=== PATIENT | male | born 1980 | race Caucasian/White ===

== ENCOUNTER 2020-04-09 23:24 | Emergency (ER) | payer MEDICARE, MEDICAID, SELFPAY ==
[2020-04-09 23:33] VITALS: BP 166/79; PULSE 84; RESP 16; TEMP 36.7; O2SAT 98; BMI 35.4
--- NOTE | 2020-04-09 23:34 | XR_ITS ---
PROCEDURE: XR ANKLE RT MIN 3V CLINICAL INDICATION: stepped in a hole Injury with pain COMPARISON: No exams were available for comparison FINDINGS: There is a faint avulsion fracture involving the tip of the lateral malleolus. The fracture fragment measures 5 mm and is displaced distally by 5 mm. There is prominent overlying soft tissue swelling. There is generalized vascular calcification IMPRESSION: Avulsion fracture of the tip of the lateral malleolus with soft tissue swelling Dictated by: Antelmo Putnam MD 04/10/2020 07:58 Electronically signed by Antelmo Putnam MD in [place] 04/10/2020 07:58
--- NOTE | 2020-04-09 23:53 | HMH.EDLOEX ---
ED Disposition Clinical Impression: Ankle sprain and strain Disposition: Home, Self-Care Condition on Discharge: Good Instructions: Sprain Additional Instructions: no wt bearing and call dr grubbs in am Referrals: Heike Schroeder APRN [Primary Care Provider] - Day Grubbs DPM [Staff Physician] - - Critical Care Critical Care Time: No Attestation: On 04/09/20, the high probability of a clinically significant, sudden or life threatening deterioration of the following system(s) required my full and direct attention, intervention and personal management. The time I documented below is in addition to time spent performing reported procedures but includes the following listed in this critical care notation. Medical Decision Making - Medical Records Medical records reviewed: Yes: I reviewed the patient's medical records. - Federico Inquiry Pt receiving controlled substance: No Vital Signs: 04/09/20 23:33 Temperature 98.1 F Temperature Source Oral Pulse Rate [Right Brachial] 84 Respiratory Rate 16 Blood Pressure [Right Arm] 166/79 H Blood Pressure Mean [Right Arm] 108 Blood Pressure Source [Right Arm] Automatic Cuff Blood Pressure Position [Right Arm] Sitting 02 Sat by Pulse Oximetry 98 Oxygen Delivery Method Room Air Orders (Tests/Meds): ED MEDICATIONS Generic Name Dose Route Start Last Admin Trade Name Freq PRN Reason Stop Dose Admin Tramadol HCl 1 alisson 04/10/20 00:02 Ultram Take Home Pack 50mg (10) PO 04/10/20 00:03 ONCE ONE ORDERS Category Date Time Status Ankle XR -Right minimum 3 Views [XR ankle RT min 3V] Exams 04/09/20 23:34 Taken Stat - Radiology Data #1 Image(s): Ankle Image Reviewed: Yes I reviewed the patient's radiology image Preliminary Findings: Abnormal, No Fracture Seen Lower Extremity Injury HPI - General Chief Complaint: Extremity Injury, Lower Stated Complaint: AO 04/09/20 23:00 Injury right ankle Time Seen by Provider: 04/09/20 23:45 Mode of Arrival: Wheelchair Source of Information: Patient, Medical Record Limitations: No Limitations Description of Symptoms (Recalled from ER Triage Doc. by RN): Patient reports he was walking through the yard and stepped in a hole causing him to roll his right ankle. - History of Present Illness HPI Narrative: acute injury ankle rt MD complaint: ankle injury Onset (ago): hour(s) Injury: Right: ankle Type of Injury: eversion Place: home Severity: moderate Exacerbating factors: weight bearing Context: walking Associated symptoms: snap/pop sensation, unable to bear weight Other symptoms: none - Related Data Home Medications Medication Instructions Recorded Confirmed Unobtainable 06/23/18 06/23/18 Allergies Allergy/AdvReac Type Severity Reaction Status Date / Time No Known Allergies Allergy Verified 04/09/20 23:37 [facility] History - Hepatitis A Screen Drug use history?: No High risk sexual behaviors?: No History of sexually transmitted infection?: No Currently employed?: No Childcare worker?: No Do you have indoor plumbing?: Yes Do you have electricity?: Yes Attestation statement:: This patient has been screened for Hepatitis A risk factors. I have reviewed the patient's past medical history: Yes Medical History: Reports:: Diabetes Mellitus Type 2 Denies:: Cancer, Diabetes Mellitus Type 1, MRSA Amputation: No - Social History Smoking Status: Never smoker Alcohol Intake: never Occupational Status: disabled ROS Obtained: Yes All systems reviewed & no additional complaints - Constitutional Constitutional: Denies fever(s) - Eyes Eyes: Denies change in vision - ENT Ears, Nose, Mouth, and Throat: Denies sore throat - Cardiovascular Cardiovascular: Denies chest pain - Respiratory Respiratory: No cough - Gastrointestinal Gastrointestingal: Denies: vomiting - Genitourinary Male Genitourinary: Denies hematuria - Musculoskeletal Musculoskeletal: Reports
[2020-04-10 00:06] VITALS: BP 134/70; PULSE 77; RESP 16; TEMP 36.7; O2SAT 99
== END 2020-04-10 00:13 | disposition home or self-care (01) ==
PROVIDERS: Emergency Provider Emergency Medicine; PCP Nurse Practitioner
DX: S93.401A Sprain of unspecified ligament of right ankle, initial encounter (principal); X50.1XXA Overexertion from prolonged static or awkward postures, initial encounter; Y92.017 Garden or yard in single-family (private) house as the place of occurrence of the external cause
CPT/HCPCS: 73610; 99282

== ENCOUNTER → 2020-05-15 08:50 | Outpatient (CLI) | payer MEDICARE, MEDICAID, SELFPAY ==
--- NOTE | 2020-05-15 08:56 | XR_ITS ---
PROCEDURE: XR ANKLE WT BEARING RT MIN 3V CLINICAL INDICATION: fracture follow up Pain COMPARISON: CR ANKL3 ANKLE-LT-3 VIEWS from 06/27/2016 CR XR ANKLE RT MIN 3V from 04/09/2020 FINDINGS: There is a faint avulsion fracture once again noted at the tip the lateral malleolus may be slightly less apparent compared to the previous exam. There are small calcific densities also present around the medial malleolar region which could represent avulsion injuries age indeterminate. Soft tissue swelling has improved laterally. IMPRESSION: Improved soft tissue swelling with avulsion fracture fragment of the lateral malleolus somewhat less apparent Dictated b Antelmo Putnam MD 05/15/2020 11:00 Antelmo Putnam MD in [place] 05/15/2020 11:00
== END ==
PROVIDERS: PCP Nurse Practitioner; Visit Provider Podiatrist
DX: S82.63XA Displaced fracture of lateral malleolus of unspecified fibula, initial encounter for closed fracture (principal)
CPT/HCPCS: 73610

== ENCOUNTER → 2020-06-19 09:46 | Outpatient (CLI) | payer MEDICARE, MEDICAID, SELFPAY ==
--- NOTE | 2020-06-19 09:53 | XR_ITS ---
PROCEDURE: XR ANKLE WT BEARING RT MIN 3V CLINICAL INDICATION: pain COMPARISON: CR ANKL3 ANKLE-LT-3 VIEWS from 06/27/2016 CR XR ANKLE RT MIN 3V from 04/09/2020 CR XR ANKLE WT BEARING RT MIN 3V from 05/15/2020 FINDINGS: There is a faint calcification at the tip of the lateral malleolus consistent with an avulsion fracture not significantly changed. Small avulsion fracture also suspected at the medial malleolar region. No other significant anomalies evident. IMPRESSION: No change avulsion fractures at the medial and lateral malleolar region Dictated by: Antelmo Putnam MD 06/19/2020 11:42 Antelmo Putnam MD in [place] 06/19/2020 11:42
== END ==
PROVIDERS: PCP Nurse Practitioner; Visit Provider Podiatrist
DX: S82.61XE Displaced fracture of lateral malleolus of right fibula, subsequent encounter for open fracture type I or II with routine healing (principal)
CPT/HCPCS: 73610

== ENCOUNTER → 2020-08-14 08:13 | Outpatient (CLI) | payer MEDICARE, MEDICAID, SELFPAY ==
--- NOTE | 2020-08-14 08:23 | XR_ITS ---
PROCEDURE: XR ANKLE WT BEARING RT MIN 3V CLINICAL INDICATION: fracture follow up COMPARISON: CR ANKL3 ANKLE-LT-3 VIEWS from 06/27/2016 CR XR ANKLE RT MIN 3V from 04/09/2020 CR XR ANKLE WT BEARING RT MIN 3V from 05/15/2020 CR XR ANKLE WT BEARING RT MIN 3V from 06/19/2020 FINDINGS: Small calcific densities once again noted at the tip of the medial and lateral malleolar region may be due to old avulsion injuries overall not significantly changed. Ankle mortise is preserved. IMPRESSION: No change small avulsion injuries at the tip of the medial and lateral malleolar region Dictated by: Antelmo Putnam MD 08/14/2020 11:48 Antelmo Putnam MD in [place] 08/14/2020 11:48
== END ==
PROVIDERS: PCP Nurse Practitioner; Visit Provider Podiatrist
DX: S82.63XA Displaced fracture of lateral malleolus of unspecified fibula, initial encounter for closed fracture (principal)
CPT/HCPCS: 73610

== ENCOUNTER → 2020-12-26 11:23 | Outpatient (CLI) | payer MEDICARE, MEDICAID, SELFPAY ==
[2020-12-26 11:51] LABS: Basophils # 0.1 K/mm3 (0-0.2); Basophils % 0.8 % (0.1-2.0); Eosinophils # 0.1 K/mm3 (0.0-0.4); Eosinophils % 1.9 % (0.1-12.0); Hematocrit 43.9 % (42.0-52.0); Hemoglobin 14.9 g/dL (14.1-18.0); Lymphocytes # 1.9 K/mm3 (0.7-4.5); Lymphocytes % 27.3 % (10-50); Mean Corpuscular Hemoglobin 29.8 pg (27.0-31.2); Mean Corpuscular Volume 87.5 fl (80-94); Mean Platelet Volume 8.5 fl (7.4-10.4); Monocytes # 0.5 K/mm3 (0.1-1.0); Monocytes % 7.5 % (1.7-9.3); Neutrophils # 4.5 K/mm3 (1.8-7.8); Neutrophils % 62.6 % (37.0-80.0); Platelet Count 214 K/mm3 (142-424); Red Blood Count 5.01 M/mm3 (4.60-6.20); Red Cell Distribution Width 13.9 % (11.5-17.5); White Blood Count 7.1 K/mm3 (4.8-10.8)
[2020-12-26 12:05] LABS: Creatinine,Urine Random 119 mg/dL (Not Estab.); Hemoglobin A1C 7.3 % (4.0-6.0)
[2020-12-26 12:10] LABS: Microalbumin/Creatinine Ratio 10.3
[2020-12-26 12:16] LABS: Alanine Aminotransferase 31 U/L (12-78); Albumin Level 4.6 g/dl (3.5-5.0); Albumin/Globulin Ratio 1.5 (1.1-1.8); Alkaline Phosphatase 59 U/L (38-126); Anion Gap 14.9 mEq/L (5-15); Aspartate Amino Transferase 27 U/L (17-59); Bilirubin,Total 0.9 mg/dl (0.2-1.3); Blood Urea Nitrogen 21 mg/dl (9-20); Calcium 9.7 mg/dl (8.4-10.2); Carbon Dioxide 27 mmol/L (22.0-30.0); Chloride 102 mmol/L (98-107); Chol/HDL Ratio 5.8 (1-3.5); Cholesterol 133 mg/dl (140-200); Estimated Glomerular Filt Rate 57 ml/min (>60); GFR (African American) 69 ML/MIN (>60); Glucose 169 mg/dl (74-100); HDL Cholesterol 23 mg/dl (40-60); Potassium 4.9 mmoL/L (3.5-5.1); Sodium 139 mmol/L (136-145); Total Protein,Serum 7.6 g/dl (6.3-8.2); Triglycerides 242 mg/dl (30-150); VLDL Cholesterol 48 mg/dL (0-40)
[2020-12-26 12:27] LABS: Direct LDL Cholesterol 64.43 mg/dL (100-129)
[2020-12-26 12:34] LABS: 25-OH Vitamin D, Total 14.4 ng/mL (30-100)
[2020-12-26 12:35] LABS: T4 (Thyroxine) 7.5 ug/dl (5.53-11.0)
[2020-12-26 12:49] LABS: Thyroid Stimulating Hormone 0.86 uIU/mL (0.465-4.68)
== END ==
PROVIDERS: Visit Provider Nurse Practitioner Family
DX: E11.9 Type 2 diabetes mellitus without complications (principal); E66.9 Obesity, unspecified; I10 Essential (primary) hypertension; R07.89 Other chest pain; R60.0 Localized edema; E55.9 Vitamin D deficiency, unspecified; Z79.4 Long term (current) use of insulin
CPT/HCPCS: 36415; 80053; 80061; 82043; 82306; 82570; 83036; 84436; 84443; 85025

== ENCOUNTER → 2021-01-18 18:04 | Outpatient (CLI) | payer MEDICARE, MEDICAID, SELFPAY ==
[2021-01-18 19:12] LABS: Amphetamine/Metha Screen,Urine Negative ng/ml (<1000); Barbiturates Screen,Urine Negative ng/ml (<200)
[2021-01-18 19:13] LABS: Benzodiazepines Screen,Urine Negative ng/ml (<200)
[2021-01-18 19:14] LABS: Cannabinoid Screen,Urine Negative ng/ml (<50); Cocaine Screen,Urine Negative ng/ml (<300)
[2021-01-18 19:15] LABS: Methadone Screen,Urine Negative ng/ml (<300)
[2021-01-18 19:16] LABS: Opiate Screen,Urine Negative ng/ml (<300); Phencyclidine Screen,Urine Negative ng/ml (<25)
== END ==
PROVIDERS: Visit Provider Nurse Practitioner Family
DX: Z79.891 Long term (current) use of opiate analgesic (principal)
CPT/HCPCS: 80305

== ENCOUNTER → 2021-01-23 16:19 | Outpatient (CLI) | payer MEDICARE, MEDICAID, SELFPAY | PROVIDERS: PCP Nurse Practitioner Family; Visit Provider Internal Medicine Cardiovascular Disease | DX: E78.2 Mixed hyperlipidemia; I10 Essential (primary) hypertension; K21.9 Gastro-esophageal reflux disease without esophagitis; Z79.4 Long term (current) use of insulin; G47.10 Hypersomnia, unspecified; G47.30 Sleep apnea, unspecified | CPT/HCPCS: G0399 ==

== ENCOUNTER → 2021-02-02 07:16 | Outpatient (CLI) | payer MEDICARE, MEDICAID, SELFPAY ==
--- NOTE | 2021-02-02 07:16 | CA_ITS ---
APPROVED REPORT EXAM: Comprehensive 2D, Doppler, and color-flow Echocardiogram Pile Driver Operator: Jenny Churchill RVT Ht: 6 ft 0 in Wt: 253lbs BSA: 2.35 BP: 124/72 mmHg Indications: soa,dm,palps,obesity,hld,gerd 2D Dimensions LVOT 2.04 cm (M/F) 1.5-2.5 LA Volume 19.80 mL LA Volume Index 8.42 mL/m2 (M/F) 16-34 M-Mode Dimensions RVDd 3.04 cm (0.9-2.6) LA Diam 5.01 cm (1.9-4.0) LVDd 5.51 cm (3.5-5.7) Ao Diam 3.35 cm (2.0-3.7) LVDs 3.38 cm (3.5-5.7) IVSd 1.29 cm (0.6-1.1) PWd 0.72 cm (0.6-1.1) EF (Teich) 68.40% FS 38.70% EDV (Teich) 148.00 mL TAPSE 2.58 (<1.7) ESV (Teich) 46.80 mL LV Diastology E Decel Time 193.00 (160-240 msec) E/A Ratio 1.5 MED E' 8.20 (< 7 cm/sec) E'/MED E' Ratio 13.52 (>14) LAT E' 7.80 (<10 cm/sec) E/LAT E' Ratio 14.22 (>14) Mitral Valve MV E Max Carlos. 111.00 (40-130 cm/s) MV A Velocity 73.00 (40-130 cm/s) E/A Ratio 1.51 MV Decel. Time 193.00 (160-240 ms) MV PHT 57.00 ms Pulmonary Valve PV Peak Velocity 109.00 (50-150 cm/s) Tricuspid Valve TR P. Velocity 215.00 cm/s RAP Estimate 10.00 mmHg RVSP 28.50 mmHg Left Ventricle Left atrium is mildly enlarged, left ventricle is normal size, there is no concentric left ventricular hypertrophy, visually estimated ejection fraction 55% with no regional wall motion abnormality. Diastolic parameters are inconclusive. Right Ventricle Right atrium and right ventricle are mildly enlarged with normal contractility. Aortic Valve Aortic valve is minimally thickened aortic valve is grossly normal, there is no aortic stenosis or aortic insufficiency. Mitral Valve Mitral valve is grossly normal, there is no mitral regurgitation. Tricuspid Valve Tricuspid valve is grossly normal, there is no significant tricuspid regurgitation to calculate right ventricular systolic pressure. Pulmonic Valve Pulmonic valve is poorly visualized. Great Vessels Aortic root is normal size. Pericardium No significant pericardial effusion noted. Conclusion 1. Mild biatrial alignment, normal left ventricular size, visually estimated ejection fraction 55% with no regional wall motion abnormality, diastolic parameters are inconclusive. 2. Mildly enlarged right ventricle with normal contractility. 3. No significant pericardial effusion noted. Electronically signed by : Garcia Fernandez, 02/02/2021 10:22:02
== END ==
PROVIDERS: PCP Nurse Practitioner Family; Visit Provider Internal Medicine Cardiovascular Disease
DX: R07.89 Other chest pain; I10 Essential (primary) hypertension; K21.9 Gastro-esophageal reflux disease without esophagitis; E11.9 Type 2 diabetes mellitus without complications; E78.2 Mixed hyperlipidemia; G47.9 Sleep disorder, unspecified; Z79.4 Long term (current) use of insulin
CPT/HCPCS: 93306

== ENCOUNTER → 2021-02-02 07:21 | Outpatient (CLI) | payer SELFPAY ==
--- NOTE | 2021-02-02 07:21 | CT_ITS ---
PROCEDURE: CT HEART W CALCIUM SCORE CLINICAL HISTORY: DM COMPARISON: No exams were available for comparison TECHNIQUE: Axial images obtained with sagittal and coronal reformats. All CT scans at the facility use one or more dose reduction, viz: automated exposure control, ma/kV adjustment per patient size (including targeted exams where dose is matched to indication, i.e. head), or iterative reconstruction technique. FINDINGS: Coronary artery calcium score is 876. Extensive calcific plaque burden with very high cardiovascular disease risk. There are some atelectatic or fibrotic changes in the right upper lobe medially IMPRESSION: Extensive calcific plaque burden with very high cardiovascular disease risk Dictated by: Antelmo Putnam MD 02/02/2021 08:48 Antelmo Putnam MD in [place] 02/02/2021 08:48
== END ==
PROVIDERS: PCP Nurse Practitioner Family; Visit Provider Internal Medicine Cardiovascular Disease
DX: E11.9 Type 2 diabetes mellitus without complications (principal); Z79.4 Long term (current) use of insulin; Z13.6 Encounter for screening for cardiovascular disorders
CPT/HCPCS: 75571

== ENCOUNTER → 2021-02-06 15:06 | Outpatient (CLI) | payer MEDICARE, MEDICAID, SELFPAY ==
[2021-02-06 16:33] LABS: Anion Gap 14.3 mEq/L (5-15); Blood Urea Nitrogen 27 mg/dl (9-20); Calcium 9.4 mg/dl (8.4-10.2); Carbon Dioxide 25 mmol/L (22.0-30.0); Chloride 104 mmol/L (98-107); Estimated Glomerular Filt Rate 52 ml/min (>60); GFR (African American) 63 ML/MIN (>60); Glucose 210 mg/dl (74-100); Potassium 4.3 mmoL/L (3.5-5.1); Sodium 139 mmol/L (136-145)
[2021-02-06 16:40] LABS: NT Pro Brain Natriuretic Pep. 28.3 pg/mL (0-125)
== END ==
PROVIDERS: Visit Provider Internal Medicine Cardiovascular Disease
DX: R06.00 Dyspnea, unspecified; E11.9 Type 2 diabetes mellitus without complications; E78.2 Mixed hyperlipidemia; I10 Essential (primary) hypertension; K21.9 Gastro-esophageal reflux disease without esophagitis; G47.9 Sleep disorder, unspecified; Z79.4 Long term (current) use of insulin
CPT/HCPCS: 36415; 80048; 83880

== ENCOUNTER → 2021-02-27 07:39 | Outpatient (CLI) | payer MEDICARE, MEDICAID, SELFPAY ==
--- NOTE | 2021-02-27 | CA_ITS ---
APPROVED REPORT Exam: Exercise Treadmill Technologist: erika haque, Ht: 6 ft 0 in Wt: 240 lbs BSA: 2.30 m2 HR: 60 bpm BP: 133/74 mmHg Indications: CAD, Neck pain Medical History Medications: Omeprazole,,,,, Lovastatin,,,,, Asa,,,,, Gabapentin,,,,, Allopurinol,,,,, GlYBURIDE,,,,, INSULIN,,,,, Lipitor,,,,, Tramadol,,,,, Zolpidem,,,,, FeNOfibrate,,,,, BisOPROLOL,,,,, Allergies: NKA Cardiac Risk Factors: HTN, Hyperlipidemia, Diabetes (insulin) Stress Test Details Test: Manual Treadmill HR Resting HR: 67 bpm Max Heart Rate (APMHR): 181.527298 bpm Max HR Achieved: 135 bpm Target HR (85% APMHR): 153.716733 bpm % of APMHR: 74.59 Recovery HR: 115 bpm BP Resting BP: 133/74 mmHg Max BP: 185/80 mmHg Recovery BP: 172.0/88.0 mmHg ECG Resting ECG: NSR, normal Clinical Exercise duration: 09:11 min Highest Stage Achieved: Stage 3: 3.4 mph at 14% grade. Exercise capacity: 10.1 METs Stress ECG Conclusion Stage 3 was held to completion. Test stopped due to SOA and leg fatigue. No chest or neck pain. No arrhythmia or ectopy. Allowing for motion artifact, the ST response to exercise is within normal. Normal GXT to HR achieved (75% of PM). Images reported separately. Test Summary REST . . . . . . . Standing REST . . . . . . . Sitting REST 04:30 0.0 0.0 67 . 133/ 74 . . Stage 1 01:00 10.0 1.7 91 . . . . Stage 1 02:00 10.0 1.7 98 . . . . Stage 1 03:00 10.0 1.7 102 . 158/ 80 . . Stage 2 01:00 12.0 2.5 110 . . . . Stage 2 02:00 12.0 2.5 115 . . . . Stage 2 03:00 12.0 2.5 117 . 185/ 80 . . Stage 3 01:00 14.0 3.4 124 . . . . Stage 3 02:00 14.0 3.4 130 . . . . Stage 3 . . . . . . . Myoview Injected Stage 3 . . . . . . . Stage held Stage 3 03:00 14.0 3.4 135 . . . . Stage 3 . . . . . . . Stage resumed Stage 3 03:11 14.0 3.4 135 . . . Stop exercise at 09:11 RECOVERY . . . . . . . Protocol changed to Manual Treadmill RECOVERY 01:00 0.0 0.0 115 . . . . RECOVERY 02:00 0.0 0.0 93 . . . . RECOVERY 03:00 0.0 0.0 85 . 172/ 88 . . RECOVERY 04:00 0.0 0.0 86 . 146/ 73 . . RECOVERY 05:00 0.0 0.0 87 . 132/ 74 . . RECOVERY 05:23 0.0 0.0 84 . 132/ 74 . . Electronically signed by : Garcia Fernandez, 02/27/2021 18:23:15
--- NOTE | 2021-02-27 07:39 | NM_ITS ---
APPROVED REPORT Exam: Nuclear Stress Test Indication: Chest pain, CAD, HTN, DM, High cholesterol, Palpitations, Fatigue Patient Location: Outpatient Stress Tech: Marci Shin IN Tech:Guerline Burk, ARRT, RT (R)(N) Ht: 6 ft 0 in Wt: 240 lbs HR: 60 bpm BP: 133/74 mmHg BSA: 2.30 m2 History: Chest pain, CAD, HTN, DM, High cholesterol, Palpitations, Fatigue Procedure: Patient exercised on Randolph protocol 9:11 minutes and sec, resting heart rate 60 bpm, resting blood pressure 133/74 mmHg, with exercise maximum heart rate achived was 135 bpm which is 75 % of the maximum predicted heart rate and blood pressure was 185/80 mmHg. Test was stopped due to SOA and leg fatigue. Patient denied any complaint of chest pain. Patient has good exercise capacity, achieved 10.1 METs of workload on treadmill, the blood pressure response to exercise was Adequate. Electrocardiogram Resting electrocardiogram shows sinus rhythm, with exercise there is less than 1.[address] segment depression noted from the baseline EKG. The EKG portion of the exercise Myoview was nondiagnostic as patient did not achieve the target heart rate. Cardiac Stress and Resting SPECT Images: Cardiac Stress and Resting SPECT images were obtained using technetium 99m Myoview 31.5 mCi stress and 10.14 mCi at rest. Gated SPECT for analysis of segmental wall motion and calculation of the ejection fraction also done. Prone images were also obtained. Cardiac stress and resting SPECT images show uniform myocardial activity without segmental perfusion abnormality, computer derived ejection fraction is 59% with no regional wall motion abnormality, right ventricle is normal size and contractility. Conclusion: 1. The EKG portion of the exercise Myoview was nondiagnostic as patient did not achieve the target heart rate, patient has good exercise capacity achieved 10.1 METs of workload on treadmill, the blood pressure response to exercise was adequate, there was no exercise-induced chest discomfort. 2. No scintigraphic evidence of reversible ischemia seen at this level of exercise, computer derived ejection fraction is 59% with no regional wall motion abnormality, right ventricle is normal size and contractility. Electronically signed by : Garcia Fernandez, 02/27/2021 18:32:25
--- NOTE | 2021-02-27 08:50 | HMH.ITSHM ---
Current Home Medications as stated by this patient Lizandro Sprague or physician representative. []ZOLPIDEM TRAMADOL SITAGLIPTIN OMEPRAZOLE LOVASTATIN LISINOPRIL INSULIN HCTZ GLYBURIDE GLUCAGON GABAPENTIN FENOFIBRATE DILTIAZEM BISOPROLOL ATORVASTATIN ASA ALLOPURINOL
[2021-02-27 10:32] LABS: Alanine Aminotransferase 30 U/L (12-78); Albumin Level 4.3 g/dl (3.5-5.0); Alkaline Phosphatase 53 U/L (38-126); Aspartate Amino Transferase 25 U/L (17-59); Bilirubin,Direct 0.3 mg/dl (0.0-0.4); Bilirubin,Indirect 0.4 mg/dL (0.0-0.9); Bilirubin,Total 0.7 mg/dl (0.2-1.3); Bilirubin,Unconjugated 0.4 mg/dL (0.0-1.1); Chol/HDL Ratio 5.5 (1-3.5); Cholesterol 105 mg/dl (140-200); HDL Cholesterol 19 mg/dl (40-60); Triglycerides 226 mg/dl (30-150); VLDL Cholesterol 45 mg/dL (0-40)
[2021-02-27 10:43] LABS: Direct LDL Cholesterol 50.81 mg/dL (100-129)
== END ==
PROVIDERS: PCP Nurse Practitioner Family; Visit Provider Nurse Practitioner Family
DX: I25.10 Atherosclerotic heart disease of native coronary artery without angina pectoris (principal); E11.9 Type 2 diabetes mellitus without complications; E78.2 Mixed hyperlipidemia; Z79.4 Long term (current) use of insulin
CPT/HCPCS: 36415; 78452; 80061; 80076; 93017; A9502

== ENCOUNTER → 2021-03-02 15:03 | Outpatient (POV) | payer MEDICARE, MEDICAID, SELFPAY | PROVIDERS: Visit Provider Internal Medicine Nephrology | DX: Z00.00 Encounter for general adult medical examination without abnormal findings (principal) ==

== ENCOUNTER → 2021-03-26 07:56 | Outpatient (CLI) | payer MEDICARE, MEDICAID, SELFPAY ==
--- NOTE | 2021-03-26 | CA_ITS ---
APPROVED REPORT Operation Manager: RICHAR Study Quality: Good Risk Factors Hypertension Renal Artery Doppler Origin (R) 161.9/ cm/sec Proximal (R) 132.4/ cm/sec Mid (R) 169.6/ cm/sec Distal (R) 114.4/ cm/sec Renal Aorta Ratio (R) 0.00 Segmental A. (R) / cm/sec RI: 0.69 Segmental A. Sup (R) 33.0/10.0 cm/sec Segmental A. Mid (R) 28.0/10.0 cm/sec Segmental A. Inf (R) 48.0/13.0 cm/sec Origin (L) 118.2/ cm/sec Proximal (L) 152.0/ cm/sec Mid (L) 160.6/ cm/sec Distal (L) 115.7/ cm/sec Renal Aorta Ratio (L) 1.43 Segmental A. (L) / cm/sec RI: 0.69 Segmental A. Sup (L) 30.0/9.0 cm/sec Segmental A. Mid (L) 37.0/11.0 cm/sec Segmental A. Inf (L) 28.0/9.0 cm/sec Renal Measurements Kidney Size (R) 12.2x5.4 cm Cortical Thickness (R) 2.1 cm Kidney Size (L) 11.4x5.1 cm Cortical Thickness (L) 2.5 cm Findings Both kidneys appear to be within normal size parameters (greater than 9.0cm and symmetrical). The bilateral renal arteries were segmentally visualized from its origin distally to the level of the kidney. No evidence of renal artery occlusive disease in either renal artery. Conclusion Both kidneys appear to be within normal size parameters (greater than 9.0cm and symmetrical). The bilateral renal arteries were segmentally visualized from its origin distally to the level of the kidney. Based on the renal/aortic ratio there is no evidence of significant stenosis in the right renal artery. Based on the renal/aortic ratio there is no evidence of significant stenosis in the left renal artery. Electronically signed by : Antelmo Putnam MD 03/26/2021 16:33:28
--- NOTE | 2021-03-26 08:32 | US_ITS ---
PROCEDURE: US KIDNEY CLINICAL INDICATION: ACUTE KIDNEY FAILURE,HTN COMPARISON: US CA RENAL ARTERY DUPLEX from 03/26/2021 FINDINGS: The right kidney is [id number]. No hydronephrosis, cortical thinning, or renal mass or perinephric fluid collection is evident. The left kidney is [id number]. No hydronephrosis, or renal mass or perinephric fluid collection is evident. There is some mild cortical thinning of the left kidney. IMPRESSION: No hydronephrosis or renal mass. Mild cortical thinning of the left kidney Dictated by: Antelmo Putnam MD 03/26/2021 10:49 Antelmo Putnam MD in [place] 03/26/2021 10:49
== END ==
PROVIDERS: PCP Nurse Practitioner Family; Visit Provider Internal Medicine Nephrology
DX: I15.0 Renovascular hypertension (principal); N17.9 Acute kidney failure, unspecified; N18.30 Chronic kidney disease, stage 3 unspecified; E11.9 Type 2 diabetes mellitus without complications; Z79.4 Long term (current) use of insulin
CPT/HCPCS: 76770; 93976

== ENCOUNTER → 2021-03-30 19:52 | Outpatient (CLI) | payer MEDICARE, MEDICAID, SELFPAY | PROVIDERS: PCP Nurse Practitioner Family; Visit Provider Internal Medicine Cardiovascular Disease | DX: G47.30 Sleep apnea, unspecified (principal); R06.83 Snoring; I10 Essential (primary) hypertension; E66.9 Obesity, unspecified; Z68.34 Body mass index [BMI] 34.0-34.9, adult; Z87.891 Personal history of nicotine dependence | CPT/HCPCS: 95810 ==

== ENCOUNTER → 2021-04-10 11:15 | Outpatient (CLI) | payer MEDICARE, MEDICAID, SELFPAY ==
[2021-04-10 11:20] LABS: Microscopic, Urine URINE MICROSCOPIC (MICROSCOPIC)
[2021-04-10 11:56] LABS: Hematocrit 42.5 % (42.0-52.0); Hemoglobin 14.5 g/dL (14.1-18.0); Mean Corpuscular HGB Conc 34.2 g/dL (31.8-35.4); Mean Corpuscular Hemoglobin 29.5 pg (27.0-31.2); Mean Corpuscular Volume 86.3 fl (80-94); Platelet Count 218 K/mm3 (142-424); Red Blood Count 4.93 M/mm3 (4.60-6.20); Red Cell Distribution Width 13.8 % (11.5-17.5)
[2021-04-10 11:59] LABS: Creatinine,Urine Random 200 mg/dL (Not Estab.)
[2021-04-10 12:27] LABS: Chloride 105 mmol/L (98-107)
[2021-04-10 12:28] LABS: Potassium 4.2 mmoL/L (3.5-5.1); Sodium 144 mmol/L (136-145)
[2021-04-10 12:30] LABS: Alanine Aminotransferase 30 U/L (12-78); Aspartate Amino Transferase 29 U/L (17-59); Blood Urea Nitrogen 17 mg/dl (9-20); Estimated Glomerular Filt Rate 75 ml/min (>60); GFR (African American) 90 ML/MIN (>60)
[2021-04-10 12:31] LABS: Albumin Level 4.7 g/dl (3.5-5.0); Albumin/Globulin Ratio 1.6 (1.1-1.8); Alkaline Phosphatase 63 U/L (38-126); Anion Gap 16.2 mEq/L (5-15); Calcium 9.6 mg/dl (8.4-10.2); Carbon Dioxide 27 mmol/L (22.0-30.0); Globulin 2.9 g/dL (1.3-3.2); Glucose 236 mg/dl (74-100); Total Protein,Serum 7.6 g/dl (6.3-8.2); Uric Acid 4.4 mg/dl (3.5-8.5)
[2021-04-10 12:43] LABS: Hemoglobin A1C 7.6 % (4.0-6.0)
[2021-04-10 12:49] LABS: 25-OH Vitamin D, Total 30.1 ng/mL (30-100)
[2021-04-10 12:57] LABS: Thyroid Stimulating Hormone 0.94 uIU/mL (0.465-4.68)
[2021-04-10 13:46] LABS: Appearance,Urine CLEAR (Clear); Bilirubin,Urine Negative (Negative); Blood, Urine Negative (Negative); Color,Urine YELLOW (Yellow); Glucose,Urine (UA) 2+ (Negative); Ketones,Urine Negative (Negative); Leukocyte Esterase,Urine Negative (Negative); Nitrate,Urine Negative (Negative); PH,Urine 7.5 (5.0-8.5); Protein,Urine TRACE (Negative); Specific Gravity, Urine 1.015 (1.005-1.030)
[2021-04-10 13:51] LABS: Squamous Epithelial Cell,Urine Occasional #/hpf (0-5); WBC,Urine Occasional #/hpf (0-3)
[2021-04-10 16:42] LABS: Intact Parathyroid Hormone 13.1 pg/mL (7.5-53.5)
== END ==
PROVIDERS: Visit Provider Internal Medicine Nephrology
DX: N17.9 Acute kidney failure, unspecified (principal); I10 Essential (primary) hypertension; E66.9 Obesity, unspecified; Z68.34 Body mass index [BMI] 34.0-34.9, adult; Z79.899 Other long term (current) drug therapy
CPT/HCPCS: 36415; 80053; 81001; 82306; 82570; 83036; 83970; 84155; 84443; 84550; 85014; 85018; 85048; 85049

== ENCOUNTER → 2021-04-27 14:22 | Outpatient (POV) | payer MEDICARE, MEDICAID, SELFPAY | PROVIDERS: Visit Provider Internal Medicine Nephrology | DX: Z00.00 Encounter for general adult medical examination without abnormal findings (principal) ==

== ENCOUNTER 2021-11-06 12:58 | Emergency (ER) | payer MEDICARE, MEDICAID, SELFPAY ==
[2021-11-06 13:00] VITALS: BP 134/85; PULSE 57; RESP 18; TEMP 36.9; O2SAT 96; BMI 32.5
--- NOTE | 2021-11-06 13:09 | HMH.EDGENADL ---
ED Disposition Clinical Impression: Viral illness Disposition: Home, Self-Care Condition on Discharge: Good Instructions: DI for Viral Syndrome Additional Instructions: follow up pcp if not better Referrals: Yasmin Sandoval APRN [Primary Care Provider] - - Critical Care Critical Care Time: No Attestation: On 11/06/21, the high probability of a clinically significant, sudden or life threatening deterioration of the following system(s) required my full and direct attention, intervention and personal management. The time I documented below is in addition to time spent performing reported procedures but includes the following listed in this critical care notation. Medical Decision Making - Medical Records Medical records reviewed: Yes: I reviewed the patient's medical records. - Federico Inquiry Pt receiving controlled substance: No General Adult HPI - General Stated complaint: dizzy, weakness, sore throat Time Seen by Provider: 11/06/21 13:09 - History of Present Illness HPI narrative: general malaise, uri symptoms, thinks its viral iddm bg today 190, no n/v kane cp/soa Radiation: non-radiation Severity: mild Consistency: constant, intermittent Exacerbating factors: none Associated symptoms: denies other symptoms - Related Data Home Medications Medication Instructions Recorded Confirmed bisoprolol fumarate 5 mg tablet 10 mg PO DAILY tab 04/04/21 08/17/21 Previous Rx's Medication Instructions Recorded glucagon 1 mg/0.2 mL subcutaneous 1 mg SQ ONCE #0.4 ml 12/28/20 auto-injector lovastatin 40 mg tablet 40 mg PO HS #90 tab 12/28/20 blood-glucose transmitter See Rx Instructions .ROUTE 12/29/20 .MEDSUPPLY #1 each triamcinolone acetonide 0.025 % 1 applic TOPICAL BID #15 g 06/22/21 topical cream aluminum chloride 20 % topical See Rx Instructions .ROUTE 07/24/21 solution .COMPLEX #60 ml aspirin 81 mg tablet,delayed See Rx Instructions .ROUTE 07/24/21 release .COMPLEX #30 tab diltiazem HCl 120 mg tablet See Rx Instructions .ROUTE 07/24/21 .COMPLEX #90 tab atorvastatin 40 mg tablet See Rx Instructions .ROUTE 07/26/21 .COMPLEX #30 tab gabapentin 300 mg capsule 300 mg PO BID 30 Days #60 cap 08/17/21 tramadol 50 mg tablet 50 mg PO QID PRN 30 Days #120 tab 08/17/21 insulin NPH-regular 70-30 U-100 10 unit SQ BID #15 ml 10/02/21 insulin 100 unit/mL subcutaneous pen allopurinol 300 mg tablet See Rx Instructions .ROUTE 10/18/21 .COMPLEX #90 tab fenofibrate nanocrystallized 145 See Rx Instructions .ROUTE 10/18/21 mg tablet .COMPLEX #90 tab glyburide 5 mg tablet See Rx Instructions .ROUTE 10/18/21 .COMPLEX #180 tab hydrochlorothiazide 25 mg tablet See Rx Instructions .ROUTE 10/18/21 .COMPLEX #90 tab omeprazole 40 mg capsule,delayed See Rx Instructions .ROUTE 10/18/21 release .COMPLEX #90 cap insulin glargine 100 unit/mL (3 See Rx Instructions .ROUTE 10/30/21 mL) subcutaneous pen .COMPLEX #15 ml pen needle, diabetic 31 gauge x See Rx Instructions .ROUTE #100 10/30/2112/19 each Allergies Allergy/AdvReac Type Severity Reaction Status Date / Time No Known Allergies Allergy Verified 08/17/21 13:49 [facility] History - Hepatitis A Screen Attestation statement:: This patient has been screened for Hepatitis A risk factors. Medical History: Reports:: Diabetes Mellitus Type 2, Gastroesophageal Reflux Disease(GERD), Hyperlipidemia, Hypertension, Migraine Denies:: Cancer, Diabetes Mellitus Type 1, MRSA Other Surgeries: Yes: No Previous Surgery Amputation: No Fractures: No - Social History Smoking Status: Former smoker Alcohol Intake: never Substance Use Type: denies use Occupational Status: disabled Housing: house Household Members: family Family Hx:: Cancer, Diabetes, Hypertension ROS Obtained: Yes All systems reviewed & no additional complaints Physical Exam - General General appearance: alert, in no apparent distress - Head Head exam: atraumatic, normocephalic
--- NOTE | 2021-11-06 13:19 | PC.NURSE ---
Covid swab sent lab
[2021-11-06 13:30] VITALS: BP 116/72; PULSE 49; O2SAT 96
--- NOTE | 2021-11-06 13:37 | ECG_ITS ---
APPROVED REPORT Exam: Resting ECG HR:64 bpm ECG Measurements Heart Rate 64 AXES QRSd 97 QRS 44 QT 440 T 17 QTc 450 Conclusion SINUS RHYTHM WITH HIGH GRADE AV BLOCK CRITICAL TEST RESULT UNCONFIRMED REPORT Electronically signed by : Dmitri Celestin MD 11/06/2021 16:25:02
[2021-11-06 13:43] VITALS: BP 116/72; PULSE 51; O2SAT 95
[2021-11-06 13:47] VITALS: BP 116/72; PULSE 51; RESP 18; TEMP 36.9; O2SAT 95
== END 2021-11-06 13:48 | disposition home or self-care (01) ==
PROVIDERS: Emergency Provider Emergency Medicine; PCP Nurse Practitioner Family
DX: B34.9 Viral infection, unspecified (principal); E11.9 Type 2 diabetes mellitus without complications; Z79.4 Long term (current) use of insulin; U07.1 COVID-19; Z79.899 Other long term (current) drug therapy
CPT/HCPCS: 93005; 99282; C9803; U0003; U0005

== ENCOUNTER → 2021-11-23 16:00 | Outpatient (CLI) | payer MEDICARE, MEDICAID, SELFPAY ==
[2021-11-23 18:56] LABS: Basophils # 0.1 K/mm3 (0-0.2); Eosinophils # 0.1 K/mm3 (0.0-0.4); Eosinophils % 2.3 % (0.1-12.0); Hematocrit 43.5 % (42.0-52.0); Hemoglobin 14.5 g/dL (14.1-18.0); Lymphocytes # 2.3 K/mm3 (0.7-4.5); Lymphocytes % 37.2 % (10-50); Mean Corpuscular HGB Conc 33.3 g/dL (31.8-35.4); Mean Corpuscular Hemoglobin 29.6 pg (27.0-31.2); Mean Corpuscular Volume 88.9 fl (80-94); Mean Platelet Volume 9.8 fl (7.4-10.4); Monocytes # 0.3 K/mm3 (0.1-1.0); Neutrophils # 3.3 K/mm3 (1.8-7.8); Neutrophils % 54.6 % (37.0-80.0); Platelet Count 235 K/mm3 (142-424); Red Cell Distribution Width 14.2 % (11.5-17.5); White Blood Count 6.1 K/mm3 (4.8-10.8)
[2021-11-23 19:10] LABS: Alanine Aminotransferase 48 U/L (12-78); Albumin Level 4.6 g/dl (3.5-5.0); Albumin/Globulin Ratio 1.7 (1.1-1.8); Alkaline Phosphatase 61 U/L (38-126); Anion Gap 14.1 mEq/L (5-15); Aspartate Amino Transferase 46 U/L (17-59); Bilirubin,Total 1.3 mg/dl (0.2-1.3); Blood Urea Nitrogen 13 mg/dl (9-20); Calcium 8.8 mg/dl (8.4-10.2); Carbon Dioxide 27 mmol/L (22.0-30.0); Chloride 104 mmol/L (98-107); Chol/HDL Ratio 5.3 (1-3.5); Cholesterol 96 mg/dl (140-200); Estimated Glomerular Filt Rate 83 ml/min (>60); GFR (African American) 101 ML/MIN (>60); Globulin 2.7 g/dL (1.3-3.2); Glucose 165 mg/dl (74-100); HDL Cholesterol 18 mg/dl (40-60); Potassium 4.1 mmoL/L (3.5-5.1); Sodium 141 mmol/L (136-145); Total Protein,Serum 7.3 g/dl (6.3-8.2); Triglycerides 267 mg/dl (30-150); VLDL Cholesterol 53 mg/dL (0-40)
[2021-11-23 19:22] LABS: Direct LDL Cholesterol 40.07 mg/dL (100-129)
[2021-11-23 19:27] LABS: Amphetamine/Metha Screen,Urine Negative ng/ml (<1000)
[2021-11-23 19:28] LABS: Barbiturates Screen,Urine Negative ng/ml (<200); Benzodiazepines Screen,Urine Negative ng/ml (<200)
[2021-11-23 19:29] LABS: Cannabinoid Screen,Urine Negative ng/ml (<50); Cocaine Screen,Urine Negative ng/ml (<300)
[2021-11-23 19:30] LABS: Methadone Screen,Urine Negative ng/ml (<300); T4 (Thyroxine) 6.4 ug/dl (5.53-11.0)
[2021-11-23 19:31] LABS: Opiate Screen,Urine Negative ng/ml (<300)
[2021-11-23 19:33] LABS: Phencyclidine Screen,Urine Negative ng/ml (<25)
[2021-11-23 19:43] LABS: Thyroid Stimulating Hormone 1.32 uIU/mL (0.465-4.68)
== END ==
PROVIDERS: Visit Provider Nurse Practitioner Family
DX: E11.9 Type 2 diabetes mellitus without complications (principal); I25.10 Atherosclerotic heart disease of native coronary artery without angina pectoris; B34.9 Viral infection, unspecified; Z79.899 Other long term (current) drug therapy; Z79.4 Long term (current) use of insulin
CPT/HCPCS: 80053; 80061; 80305; 82043; 83036; 84436; 84443; 85025

== ENCOUNTER → 2022-01-09 16:08 | Outpatient (CLI) | payer MEDICARE, MEDICAID, SELFPAY ==
[2022-01-09 16:28] LABS: Microscopic, Urine URINE MICROSCOPIC (MICROSCOPIC)
[2022-01-09 16:46] LABS: Appearance,Urine CLEAR (Clear); Bilirubin,Urine Negative (Negative); Blood, Urine Negative (Negative); Color,Urine YELLOW (Yellow); Glucose,Urine (UA) 3+ (Negative); Ketones,Urine Negative (Negative); Leukocyte Esterase,Urine Negative (Negative); Nitrate,Urine Negative (Negative); Protein,Urine TRACE (Negative)
[2022-01-09 16:59] LABS: Creatinine,Urine Random 82 mg/dL (Not Estab.)
[2022-01-09 17:00] LABS: Microalbumin/Creatinine Ratio 106.4
[2022-01-09 17:03] LABS: Basophils # 0.1 K/mm3 (0-0.2); Basophils % 1.4 % (0.1-2.0); Eosinophils # 0.3 K/mm3 (0.0-0.4); Eosinophils % 4.9 % (0.1-12.0); Hematocrit 44.3 % (42.0-52.0); Hemoglobin 15.4 g/dL (14.1-18.0); Lymphocytes # 1.9 K/mm3 (0.7-4.5); Lymphocytes % 28.8 % (10-50); Mean Corpuscular HGB Conc 34.9 g/dL (31.8-35.4); Mean Corpuscular Hemoglobin 30.8 pg (27.0-31.2); Mean Corpuscular Volume 88.3 fl (80-94); Mean Platelet Volume 9.2 fl (7.4-10.4); Monocytes # 0.4 K/mm3 (0.1-1.0); Platelet Count 220 K/mm3 (142-424); Red Blood Count 5.01 M/mm3 (4.60-6.20); White Blood Count 6.8 K/mm3 (4.8-10.8)
[2022-01-09 17:06] LABS: Bacteria,Urine 1+ /lpf; RBC,Urine Occasional #/hpf (0-3); Squamous Epithelial Cell,Urine Occasional #/hpf (0-5)
[2022-01-09 17:17] LABS: Albumin Level 4.6 g/dl (3.5-5.0); Anion Gap 13.6 mEq/L (5-15); Blood Urea Nitrogen 18 mg/dl (9-20); Calcium 9.6 mg/dl (8.4-10.2); Carbon Dioxide 29 mmol/L (22.0-30.0); Chloride 102 mmol/L (98-107); Estimated Glomerular Filt Rate 67 ml/min (>60); GFR (African American) 82 ML/MIN (>60); Glucose 265 mg/dl (74-100); Phosphorous 4.2 mg/dl (2.5-4.5); Potassium 4.6 mmoL/L (3.5-5.1); Sodium 140 mmol/L (136-145)
[2022-01-09 17:29] LABS: Intact Parathyroid Hormone 26.2 pg/mL (7.5-53.5)
[2022-01-09 17:34] LABS: 25-OH Vitamin D, Total 15.7 ng/mL (30-100)
[2022-01-11 11:18] LABS: C-Peptide 5.8 ng/mL (1.1-4.4)
== END ==
PROVIDERS: PCP Nurse Practitioner Family; Visit Provider Internal Medicine Nephrology
DX: R80.9 Proteinuria, unspecified (principal); E55.9 Vitamin D deficiency, unspecified
CPT/HCPCS: 36415; 80069; 81001; 82043; 82306; 82570; 83970; 84155; 84681; 85025

== ENCOUNTER → 2022-01-14 15:05 | Outpatient (POV) | payer MEDICARE, MEDICAID, SELFPAY | PROVIDERS: Visit Provider Internal Medicine Nephrology | DX: Z00.00 Encounter for general adult medical examination without abnormal findings (principal) ==

== ENCOUNTER → 2022-01-28 15:35 | Outpatient (CLI) | payer MEDICARE, MEDICAID, SELFPAY ==
[2022-01-28 17:05] LABS: Chloride 101 mmol/L (98-107); Potassium 4.5 mmoL/L (3.5-5.1); Sodium 137 mmol/L (136-145)
[2022-01-28 17:06] LABS: Albumin Level 4.3 g/dl (3.5-5.0)
[2022-01-28 17:08] LABS: Anion Gap 13.5 mEq/L (5-15); Blood Urea Nitrogen 23 mg/dl (9-20); Carbon Dioxide 27 mmol/L (22.0-30.0); Estimated Glomerular Filt Rate 56 ml/min (>60); GFR (African American) 68 ML/MIN (>60)
[2022-01-28 17:09] LABS: Calcium 10.1 mg/dl (8.4-10.2); Glucose 313 mg/dl (74-100); Phosphorous 4.1 mg/dl (2.5-4.5)
== END ==
PROVIDERS: Visit Provider Internal Medicine Nephrology
DX: I10 Essential (primary) hypertension (principal)
CPT/HCPCS: 36415; 80069

== ENCOUNTER → 2022-02-13 10:36 | Outpatient (CLI) | payer MEDICARE, MEDICAID, SELFPAY ==
[2022-02-13 11:58] LABS: Albumin Level 4.5 g/dl (3.5-5.0); Anion Gap 13.1 mEq/L (5-15); Blood Urea Nitrogen 32 mg/dl (9-20); Calcium 9.8 mg/dl (8.4-10.2); Carbon Dioxide 29 mmol/L (22.0-30.0); Chloride 97 mmol/L (98-107); Estimated Glomerular Filt Rate 48 ml/min (>60); GFR (African American) 58 ML/MIN (>60); Glucose 311 mg/dl (74-100); Phosphorous 4.3 mg/dl (2.5-4.5); Potassium 4.1 mmoL/L (3.5-5.1); Sodium 135 mmol/L (136-145)
== END ==
PROVIDERS: Visit Provider Internal Medicine Nephrology
DX: I10 Essential (primary) hypertension (principal); N18.2 Chronic kidney disease, stage 2 (mild)
CPT/HCPCS: 36415; 80069

== ENCOUNTER → 2022-04-10 07:06 | Outpatient (CLI) | payer MEDICARE, MEDICAID, SELFPAY ==
[2022-04-09 19:47] LABS: Basophils # 0.1 K/mm3 (0-0.2); Basophils % 1.2 % (0.1-2.0); Eosinophils # 0.2 K/mm3 (0.0-0.4); Hematocrit 46.9 % (42.0-52.0); Hemoglobin 14.3 g/dL (14.1-18.0); Lymphocytes # 1.7 K/mm3 (0.7-4.5); Mean Corpuscular HGB Conc 30.4 g/dL (31.8-35.4); Mean Corpuscular Hemoglobin 28.7 pg (27.0-31.2); Mean Corpuscular Volume 94.4 fl (80-94); Mean Platelet Volume 10.5 fl (7.4-10.4); Monocytes # 0.4 K/mm3 (0.1-1.0); Neutrophils # 3.6 K/mm3 (1.8-7.8); Neutrophils % 60.9 % (37.0-80.0); Platelet Count 234 K/mm3 (142-424); Red Blood Count 4.97 M/mm3 (4.60-6.20); Red Cell Distribution Width 14.3 % (11.5-17.5); White Blood Count 5.9 K/mm3 (4.8-10.8)
[2022-04-09 20:23] LABS: Hemoglobin A1C 8.8 % (4.0-6.0)
[2022-04-09 21:00] LABS: Alanine Aminotransferase 47 U/L (12-78); Albumin Level 4.4 g/dl (3.5-5.0); Albumin/Globulin Ratio 1.5 (1.1-1.8); Alkaline Phosphatase 72 U/L (38-126); Anion Gap 14.8 mEq/L (5-15); Aspartate Amino Transferase 45 U/L (17-59); Bilirubin,Total 0.8 mg/dl (0.2-1.3); Blood Urea Nitrogen 27 mg/dl (9-20); Calcium 9.9 mg/dl (8.4-10.2); Carbon Dioxide 26 mmol/L (22.0-30.0); Chloride 101 mmol/L (98-107); Estimated Glomerular Filt Rate 61 ml/min (>60); GFR (African American) 74 ML/MIN (>60); Glucose 300 mg/dl (74-100); Potassium 4.8 mmoL/L (3.5-5.1); Sodium 137 mmol/L (136-145); Total Protein,Serum 7.4 g/dl (6.3-8.2)
== END ==
PROVIDERS: PCP Family Medicine; Visit Provider Family Medicine
DX: E11.9 Type 2 diabetes mellitus without complications (principal); B34.9 Viral infection, unspecified; Z79.4 Long term (current) use of insulin
CPT/HCPCS: 80053; 83036; 85025

== ENCOUNTER → 2022-06-03 11:55 | Outpatient (CLI) | payer MEDICARE, MEDICAID, SELFPAY ==
[2022-06-03 12:01] LABS: Microscopic, Urine URINE MICROSCOPIC (MICROSCOPIC)
[2022-06-03 12:22] LABS: Hematocrit 44.4 % (42.0-52.0); Hemoglobin 14.3 g/dL (14.1-18.0); Mean Corpuscular HGB Conc 32.1 g/dL (31.8-35.4); Mean Corpuscular Hemoglobin 29.7 pg (27.0-31.2); Mean Corpuscular Volume 92.4 fl (80-94); Platelet Count 257 K/mm3 (142-424); Red Blood Count 4.81 M/mm3 (4.60-6.20); Red Cell Distribution Width 14.1 % (11.5-17.5); White Blood Count 8.8 K/mm3 (4.8-10.8)
[2022-06-03 12:26] LABS: Appearance,Urine CLEAR (Clear); Bilirubin,Urine Negative (Negative); Blood, Urine Negative (Negative); Color,Urine YELLOW (Yellow); Glucose,Urine (UA) Negative (Negative); Ketones,Urine Negative (Negative); Leukocyte Esterase,Urine Negative (Negative); Nitrate,Urine Negative (Negative); PH,Urine 5.5 (5.0-8.5); Protein,Urine Negative (Negative); Urobilinogen,Urine 0.2 EU/dl (0.2)
[2022-06-03 12:58] LABS: Bacteria,Urine Trace /lpf; Squamous Epithelial Cell,Urine Occasional #/hpf (0-5); WBC,Urine Occasional #/hpf (0-3)
[2022-06-03 14:13] LABS: Albumin Level 4.4 g/dl (3.5-5.0); Chloride 102 mmol/L (98-107); Potassium 3.7 mmoL/L (3.5-5.1); Sodium 142 mmol/L (136-145)
[2022-06-03 14:16] LABS: Anion Gap 14.7 mEq/L (5-15); Blood Urea Nitrogen 20 mg/dl (9-20); Calcium 9.6 mg/dl (8.4-10.2); Carbon Dioxide 29 mmol/L (22.0-30.0); Estimated Glomerular Filt Rate 56 ml/min (>60); GFR (African American) 68 ML/MIN (>60); Glucose 105 mg/dl (74-100); Phosphorous 5.2 mg/dl (2.5-4.5)
[2022-06-03 21:34] LABS: Creatinine,Urine Random 169 mg/dL (Not Estab.)
== END ==
PROVIDERS: PCP Family Medicine; Visit Provider Internal Medicine Nephrology
DX: N18.2 Chronic kidney disease, stage 2 (mild) (principal)
CPT/HCPCS: 36415; 80069; 81001; 82570; 84155; 85014; 85018; 85048; 85049

== ENCOUNTER → 2022-06-06 13:22 | Outpatient (POV) | payer MEDICARE, MEDICAID, SELFPAY | PROVIDERS: Visit Provider Internal Medicine Nephrology | DX: Z00.00 Encounter for general adult medical examination without abnormal findings (principal) ==

== ENCOUNTER 2022-08-19 17:09 | Emergency (ER) | payer MEDICARE, MEDICAID, SELFPAY ==
--- NOTE | 2022-08-19 17:29 | PC.NURSE ---
assess pt and explained we would get him back to a room as soon as one is available.
--- NOTE | 2022-08-19 18:51 | CT_ITS ---
PROCEDURE INFORMATION: Exam: CT Head Without Contrast Exam date and time: 08/19/2022 7:57 PM Age: 42 years old Clinical indication: Pain; Headache not specified; Additional info: LUX TECHNIQUE: Imaging protocol: Computed tomography of the head without contrast. Radiation optimization: All CT scans at this facility use at least one of these dose optimization techniques: automated exposure control; mA and/or kV adjustment per patient size (includes targeted exams where dose is matched to clinical indication); or iterative reconstruction. COMPARISON: No relevant prior studies available. FINDINGS: Brain: Mild-moderate bilateral white matter hypodensities which are nonspecific but most commonly associated with chronic microvascular ischemia in this age group. The IACs are grossly normal. No extra-axial fluid collections. No evidence of acute intracranial hemorrhage. No CT evidence of large territory acute or subacute intracranial ischemia/infarct. No intracranial mass lesions. No midline shift or herniation. Cerebral ventricles: There is mild normal variant lateral ventricular asymmetry. Ventricles otherwise unremarkable. Pituitary gland and sella: The sella is grossly normal. Paranasal sinuses: Mucous retention cyst versus polyp formation in the maxillary sinuses suggesting mild chronic sinus inflammatory disease. No fluid levels. Visualized paranasal sinuses are otherwise clear. Mastoid air cells: Visualized mastoid air cells are clear. Orbital cavities: No acute intraorbital findings. Bones/joints: The calvarium and visualized facial bones are intact. Soft tissues: Mild nonspecific occipital scalp soft tissue swelling or scarring. No underlying osseous abnormalities. Vasculature: Moderate calcific atherosclerosis. No asymmetric vascular hyperdensities suggestive of thrombosis are identified. Other findings: Mild generalized atrophy. [place]-white differentiation is well maintained. IMPRESSION: 1. No acute intracranial process. No intracranial hemorrhage or mass effect. 2. Mild atrophy and mild-moderate nonspecific white matter hypodensities, most commonly related to chronic microvascular ischemia in this age group. 3. Moderate calcific atherosclerosis. 4. Mild changes of chronic maxillary sinusitis. No fluid levels.
--- NOTE | 2022-08-19 18:54 | HMH.EDGENADL ---
Discharge Plan Disposition Patient Disposition: Home, Self-Care Prescriptions Prescriptions: No Action allopurinol 300 mg tablet See Rx Instructions .ROUTE .COMPLEX Qty: 90 3RF Dose Instruction: TAKE ONE TABLET BY MOUTH ONCE A DAY Rx Instructions: TAKE ONE TABLET BY MOUTH ONCE A DAY bisoprolol fumarate 5 mg tablet See Rx Instructions .ROUTE .COMPLEX Qty: 90 3RF Dose Instruction: TAKE ONE TABLET BY MOUTH ONCE A DAY Rx Instructions: TAKE ONE TABLET BY MOUTH ONCE A DAY diltiazem HCl 120 mg tablet See Rx Instructions .ROUTE .COMPLEX Qty: 90 3RF Dose Instruction: TAKE ONE TABLET BY MOUTH ONCE A DAY Rx Instructions: TAKE ONE TABLET BY MOUTH ONCE A DAY fenofibrate nanocrystallized 145 mg tablet See Rx Instructions .ROUTE .COMPLEX Qty: 90 3RF Dose Instruction: TAKE ONE TABLET BY MOUTH ONCE A DAY Rx Instructions: TAKE ONE TABLET BY MOUTH ONCE A DAY gabapentin 300 mg capsule 300 mg PO BID 30 Days Qty: 60 5RF hydrochlorothiazide 25 mg tablet See Rx Instructions .ROUTE .COMPLEX Qty: 90 3RF Dose Instruction: TAKE ONE TABLET BY MOUTH ONCE A DAY Rx Instructions: TAKE ONE TABLET BY MOUTH ONCE A DAY insulin aspart U-100 [Novolog Flexpen U-100 Insulin] 100 unit/mL (3 mL) insulin pen 30 unit SQ TID Qty: 15 10RF Rx Instructions: 20 units half hour before meals (3xday) Lantus Solostar U-100 Insulin 100 unit/mL (3 mL) insulin pen See Rx Instructions .ROUTE .COMPLEX Qty: 15 3RF Dose Instruction: INJECT 60 UNITS SUBCUTANEOUSLY ONCE A DAY Rx Instructions: INJECT 80 UNITS SUBCUTANEOUSLY ONCE A DAY lisinopril 40 mg tablet 40 mg PO DAILY Qty: 90 3RF lovastatin 40 mg tablet 40 mg PO HS Qty: 90 3RF omeprazole 40 mg capsule,delayed release(DR/EC) See Rx Instructions .ROUTE .COMPLEX Qty: 90 3RF Dose Instruction: TAKE ONE CAPSULE BY MOUTH ONCE A DAY Rx Instructions: TAKE ONE CAPSULE BY MOUTH ONCE A DAY tramadol 50 mg tablet 50 mg PO QID PRN (Reason: pain) 30 Days Qty: 120 5RF Gvoke HypoPen 2-Pack 1 mg/0.2 mL auto-injector 1 mg SQ ONCE Qty: 0.4 0RF Rx Instructions: inject if glucose less than 50 and can not eat or drink (DME) [employer] G6 Transmitter Device See Rx Instructions .ROUTE .MEDSUPPLY Qty: 1 4RF Rx Instructions: As directed (DME) pen needle, diabetic [Easy Touch] 31 gauge x 5/16 needle See Rx Instructions .ROUTE .COMPLEX Qty: 100 3RF Dose Instruction: USE 2 TIMES A DAY OR DIRECTED WITH INSULIN Rx Instructions: USE 2 TIMES A DAY OR DIRECTED WITH INSULIN Drysol Dab-O-Matic 20 % solution See Rx Instructions .ROUTE .COMPLEX Qty: 60 2RF Dose Instruction: APPLY TOPICALLY EVERY WEEK Rx Instructions: APPLY TOPICALLY EVERY WEEK (DME) pen needle, diabetic [Easy Touch] 31 gauge x 5/16 needle See Rx Instructions .ROUTE .COMPLEX Qty: 1200 2RF Dose Instruction: USE 2 TIMES A DAY OR DIRECTED WITH INSULIN Rx Instructions: USE 2 TIMES A DAY OR DIRECTED WITH INSULIN aspirin 81 mg tablet,delayed release (DR/EC) See Rx Instructions .ROUTE .COMPLEX Qty: 30 3RF Dose Instruction: TAKE ONE TABLET BY MOUTH ONCE A DAY Rx Instructions: TAKE ONE TABLET BY MOUTH ONCE A DAY Referrals Follow up/Referrals: David Iverson MD [Primary Care Provider] - See instructions Clinical Impressions Clinical Impression: Headache Instructions Patient Instructions: DI for Headache Discharge ED Provider: Perfecto Casarez General Adult HPI <Perfecto Casarez MD - Last Filed: 08/20/22 08:49> General Chief complaint: Headache Stated complaint: h/a Time Seen by Provider: 08/19/22 18:44 History of Present Illness HPI narrative: Presents complaining of a frontal headache that began this past Friday. He states he awoke with a headache Friday morning at approximately 7 AM. Headaches been waxing and waning
--- NOTE | 2022-08-19 19:04 | PC.NURSE ---
PT GONE TO CT
[2022-08-19 19:06] VITALS: BP 143/85; PULSE 58; RESP 20; TEMP 36.8; O2SAT 100; BMI 32.5
[2022-08-19 19:40] LABS: Coronavirus 19, PCR Not Detected (NotDetected); Influenza A, PCR Not Detected (NotDetected); Influenza B, PCR Not Detected (NotDetected)
[2022-08-19 19:41] LABS: Basophils # 0.1 K/mm3 (0-0.2); Basophils % 0.7 % (0.1-2.0); Eosinophils # 0.1 K/mm3 (0.0-0.4); Eosinophils % 0.6 % (0.1-12.0); Hematocrit 41.7 % (42.0-52.0); Hemoglobin 13.8 g/dL (14.1-18.0); Lymphocytes # 1.5 K/mm3 (0.7-4.5); Lymphocytes % 12.4 % (10-50); Mean Corpuscular HGB Conc 33.1 g/dL (31.8-35.4); Mean Corpuscular Hemoglobin 29.7 pg (27.0-31.2); Mean Corpuscular Volume 89.8 fl (80-94); Mean Platelet Volume 8.8 fl (7.4-10.4); Monocytes # 0.5 K/mm3 (0.1-1.0); Neutrophils # 9.6 K/mm3 (1.8-7.8); Neutrophils % 82.3 % (37.0-80.0); Platelet Count 233 K/mm3 (142-424); Red Blood Count 4.64 M/mm3 (4.60-6.20); Red Cell Distribution Width 14.2 % (11.5-17.5); White Blood Count 11.7 K/mm3 (4.8-10.8)
[2022-08-19 19:45] LABS: Chloride 99 mmol/L (98-107); Potassium 3.7 mmoL/L (3.5-5.1); Sodium 142 mmol/L (136-145)
[2022-08-19 19:48] LABS: Alanine Aminotransferase 40 U/L (12-78); Albumin Level 4.6 g/dl (3.5-5.0); Albumin/Globulin Ratio 1.5 (1.1-1.8); Alkaline Phosphatase 59 U/L (38-126); Anion Gap 15.7 mEq/L (5-15); Aspartate Amino Transferase 31 U/L (17-59); Bilirubin,Total 0.8 mg/dl (0.2-1.3); Blood Urea Nitrogen 18 mg/dl (9-20); Carbon Dioxide 31 mmol/L (22.0-30.0); Creatinine Clearance Estimated 101 mL/min (50-200); Estimated Glomerular Filt Rate 52 ml/min (>60); GFR (African American) 63 ML/MIN (>60); Globulin 3.1 g/dL (1.3-3.2); Total Protein,Serum 7.7 g/dl (6.3-8.2)
[2022-08-19 19:49] LABS: Calcium 9.6 mg/dl (8.4-10.2); Glucose 73 mg/dl (74-100)
--- NOTE | 2022-08-19 19:59 | PC.NURSE ---
Dr. Casarez at
[2022-08-19 20:00] VITALS: BP 159/97; PULSE 65; O2SAT 96
--- NOTE | 2022-08-19 20:00 | CT_ITS ---
PROCEDURE INFORMATION: Exam: CTA Head With Contrast, Arteriography Exam date and time: 08/19/2022 9:12 PM Age: 42 years old Clinical indication: Pain; Headache; Additional info: R/O aneurysm TECHNIQUE: Imaging protocol: Computed tomographic angiography of the head with contrast. Exam focused on the arteries. 3D rendering (Not supervised by radiologist): MIP and/or 3D reconstructed images were created by the technologist. Radiation optimization: All CT scans at this facility use at least one of these dose optimization techniques: automated exposure control; mA and/or kV adjustment per patient size (includes targeted exams where dose is matched to clinical indication); or iterative reconstruction. Contrast material: ISOVUE; Contrast volume: 75 ml; Contrast route: INTRAVENOUS (IV); COMPARISON: CT HEAD/BRAIN WO CON 08/19/2022 7:57 PM FINDINGS: ANTERIOR CIRCULATION: Right internal carotid artery: The right ICA petrous segment is unremarkable. Mild calcific atherosclerosis in the cavernous segment without significant stenosis. The right ICA supraclinoid segment is unremarkable. Right middle cerebral artery: Unremarkable. No occlusion or significant stenosis. No aneurysm. Right anterior cerebral artery: Unremarkable. No occlusion or significant stenosis. No aneurysm. The anterior communicating artery is unremarkable. Left internal carotid artery: The left ICA petrous segment is unremarkable. Minimal calcific atherosclerosis in the cavernous segment without significant stenosis. The left ICA supraclinoid segment is unremarkable. Left middle cerebral artery: Unremarkable. No occlusion or significant stenosis. No aneurysm. Left anterior cerebral artery: Unremarkable. No occlusion or significant stenosis. No aneurysm. POSTERIOR CIRCULATION: Right vertebral artery: Moderate distal calcific plaque. No occlusion or significant stenosis. No aneurysm. Left vertebral artery: Mild-moderate distal calcific plaque. No occlusion or significant stenosis. No aneurysm. Basilar artery: Unremarkable. No occlusion or significant stenosis. No aneurysm. Right posterior cerebral artery: Unremarkable. No occlusion or significant stenosis. No aneurysm. Left posterior cerebral artery: Very small left posterior communicating artery present. No occlusion or significant stenosis. No aneurysm. Cavernous Sinus: The dural venous sinuses and major cortical veins enhance appropriately without evidence of thrombosis. Brain: No enhancing brain lesions or vascular malformations are identified. Cerebral ventricles: No ventriculomegaly. Bones/joints: Unremarkable. No acute fracture. Soft tissues: Unremarkable. IMPRESSION: 1. No aneurysm or intracranial hemorrhage. 2. No evidence of large vessel occlusion. No evidence of arterial dissection. PROCEDURE INFORMATION: Exam: CTA Neck With Contrast Exam date and time: 08/19/2022 9:12 PM Age: 42 years old Clinical indication: Pain; Headache; Additional info: R/O aneurysm TECHNIQUE: Imaging protocol: Computed tomographic angiography of the neck with contrast. 3D rendering (Not supervised by radiologist): MIP and/or 3D reconstructed images were created by the technologist. COMPARISON: CT HEAD/BRAIN WO CON 08/19/2022 7:57 PM FINDINGS: Right common carotid artery: Normal. No stenosis. No dissection or occlusion. Right internal carotid artery: Minimal calcific atherosclerosis in the proximal right ICA. Mild tortuosity. No stenosis. No dissection or occlusion. Right external carotid artery: Normal. No stenosis. No dissection or occlusion. Left common carotid art
[2022-08-19 20:30] VITALS: BP 144/78; PULSE 74; O2SAT 97
[2022-08-19 21:00] VITALS: BP 147/79; PULSE 77; O2SAT 97
[2022-08-19 21:30] VITALS: BP 163/88; PULSE 76; O2SAT 95
[2022-08-19 21:51] VITALS: BP 159/78; PULSE 71; RESP 16; TEMP 36.8; O2SAT 97
== END 2022-08-19 21:52 | disposition home or self-care (01) ==
PROVIDERS: Emergency Provider Emergency Medicine; PCP Family Medicine
DX: R51.9 Headache, unspecified (principal); I10 Essential (primary) hypertension; K21.9 Gastro-esophageal reflux disease without esophagitis; E78.5 Hyperlipidemia, unspecified; E11.40 Type 2 diabetes mellitus with diabetic neuropathy, unspecified; M54.9 Dorsalgia, unspecified; G89.29 Other chronic pain; Z20.822 Contact with and (suspected) exposure to COVID-19; Z79.1 Long term (current) use of non-steroidal anti-inflammatories (NSAID); Z79.4 Long term (current) use of insulin; Z79.82 Long term (current) use of aspirin; Z79.899 Other long term (current) drug therapy
CPT/HCPCS: 70450; 70496; 80053; 85025; 96374; 96375; 99285; C9803; J2405; Q9967; U0003; U0005

== ENCOUNTER → 2022-12-12 10:30 | Outpatient (CLI) | payer MEDICARE, MEDICAID, SELFPAY ==
[2022-12-12 10:48] LABS: Microscopic, Urine URINE MICROSCOPIC (MICROSCOPIC)
[2022-12-12 11:26] LABS: Hematocrit 40.8 % (42.0-52.0); Hemoglobin 14.6 g/dL (14.1-18.0); Mean Corpuscular HGB Conc 35.7 g/dL (31.8-35.4); Mean Corpuscular Volume 86.8 fl (80-94); Platelet Count 256 K/mm3 (142-424); Red Cell Distribution Width 14.2 % (11.5-17.5); White Blood Count 6.5 K/mm3 (4.8-10.8)
[2022-12-12 11:45] LABS: Appearance,Urine CLEAR (Clear); Bilirubin,Urine Negative (Negative); Blood, Urine Negative (Negative); Color,Urine YELLOW (Yellow); Glucose,Urine (UA) Negative (Negative); Ketones,Urine Negative (Negative); Leukocyte Esterase,Urine Negative (Negative); Nitrate,Urine Negative (Negative); Protein,Urine Negative (Negative); Urobilinogen,Urine 0.2 EU/dl (0.2)
[2022-12-12 12:06] LABS: Squamous Epithelial Cell,Urine Occasional #/hpf (0-5); WBC,Urine Occasional #/hpf (0-3)
[2022-12-12 12:22] LABS: Albumin Level 4.5 g/dl (3.5-5.0); Blood Urea Nitrogen 23 mg/dl (9-20); Calcium 9.3 mg/dl (8.4-10.2); Carbon Dioxide 29 mmol/L (22.0-30.0); Chloride 101 mmol/L (98-107); Estimated Glomerular Filt Rate 61 ml/min (>60); GFR (African American) 74 ML/MIN (>60); Glucose 171 mg/dl (74-100); Phosphorous 3.3 mg/dl (2.5-4.5); Potassium 4.1 mmoL/L (3.5-5.1)
[2022-12-12 12:34] LABS: Intact Parathyroid Hormone 16.8 pg/mL (7.5-53.5)
[2022-12-12 12:39] LABS: 25-OH Vitamin D, Total 23.2 ng/mL (30-100)
[2022-12-12 12:58] LABS: Anion Gap 12.1 mEq/L (5-15); Sodium 138 mmol/L (136-145)
[2022-12-12 14:50] LABS: Total Protein,Urine Random < 5.0 mg/dL (0.0-12.0)
[2022-12-12 14:51] LABS: Creatinine,Urine Random 109 mg/dL (Not Estab.)
== END ==
PROVIDERS: PCP Family Medicine; Visit Provider Internal Medicine Nephrology
DX: N18.2 Chronic kidney disease, stage 2 (mild) (principal); E55.9 Vitamin D deficiency, unspecified
CPT/HCPCS: 36415; 80069; 81001; 82306; 82570; 83970; 84155; 85014; 85018; 85048; 85049

== ENCOUNTER → 2022-12-16 14:25 | Outpatient (POV) | payer MEDICARE, MEDICAID, SELFPAY | PROVIDERS: Visit Provider Internal Medicine Nephrology | DX: Z00.00 Encounter for general adult medical examination without abnormal findings (principal) ==

== ENCOUNTER → 2023-03-20 09:55 | Outpatient (CLI) | payer MEDICARE, MEDICAID, SELFPAY ==
[2023-03-20 18:47] LABS: Basophils # 0.1 K/mm3 (0-0.2); Basophils % 0.8 % (0.1-2.0); Eosinophils # 0.3 K/mm3 (0.0-0.4); Eosinophils % 3.6 % (0.1-12.0); Hematocrit 44.9 % (42.0-52.0); Hemoglobin 14.8 g/dL (14.1-18.0); Lymphocytes # 2.4 K/mm3 (0.7-4.5); Lymphocytes % 33.7 % (10-50); Mean Corpuscular Volume 90.8 fl (80-94); Mean Platelet Volume 9.7 fl (7.4-10.4); Monocytes # 0.4 K/mm3 (0.1-1.0); Monocytes % 5.8 % (1.7-9.3); Neutrophils # 3.9 K/mm3 (1.8-7.8); Platelet Count 254 K/mm3 (142-424); Red Blood Count 4.94 M/mm3 (4.60-6.20); Red Cell Distribution Width 14.5 % (11.5-17.5)
[2023-03-20 19:02] LABS: Chloride 104 mmol/L (98-107)
[2023-03-20 19:03] LABS: Potassium 3.8 mmoL/L (3.5-5.1); Sodium 141 mmol/L (136-145)
[2023-03-20 19:05] LABS: Alanine Aminotransferase 35 U/L (12-78); Anion Gap 15.8 mEq/L (5-15); Aspartate Amino Transferase 31 U/L (17-59); Bilirubin,Total 0.4 mg/dl (0.2-1.3); Blood Urea Nitrogen 27 mg/dl (9-20); Carbon Dioxide 25 mmol/L (22.0-30.0); Estimated Glomerular Filt Rate 48 ml/min (>60); GFR (African American) 58 ML/MIN (>60)
[2023-03-20 19:06] LABS: Albumin Level 4.4 g/dl (3.5-5.0); Albumin/Globulin Ratio 1.5 (1.1-1.8); Alkaline Phosphatase 50 U/L (38-126); Calcium 9.4 mg/dl (8.4-10.2); Chol/HDL Ratio 7.3 (1-3.5); Cholesterol 131 mg/dl (140-200); Glucose 120 mg/dl (74-100); HDL Cholesterol 18 mg/dl (40-60); Total Protein,Serum 7.4 g/dl (6.3-8.2); Triglycerides 433 mg/dl (30-150)
[2023-03-20 19:15] LABS: Hemoglobin A1C 6.6 % (4.0-6.0)
== END ==
PROVIDERS: PCP Family Medicine; Visit Provider Family Medicine
DX: I10 Essential (primary) hypertension (principal); E11.9 Type 2 diabetes mellitus without complications; Z79.4 Long term (current) use of insulin
CPT/HCPCS: 80053; 80061; 83036; 85025

== ENCOUNTER → 2023-04-14 23:17 | Outpatient (CLI) | payer MEDICARE, MEDICAID, SELFPAY ==
[2023-04-14 19:30] LABS: Alanine Aminotransferase 34 U/L (12-78); Albumin Level 4.7 g/dl (3.5-5.0); Albumin/Globulin Ratio 1.5 (1.1-1.8); Alkaline Phosphatase 57 U/L (38-126); Anion Gap 15.7 mEq/L (5-15); Aspartate Amino Transferase 34 U/L (17-59); Bilirubin,Total 0.5 mg/dl (0.2-1.3); Blood Urea Nitrogen 27 mg/dl (9-20); Calcium 9.7 mg/dl (8.4-10.2); Carbon Dioxide 28 mmol/L (22.0-30.0); Chloride 103 mmol/L (98-107); Estimated Glomerular Filt Rate 39 ml/min (>60); GFR (African American) 48 ML/MIN (>60); Globulin 3.1 g/dL (1.3-3.2); Glucose 130 mg/dl (74-100); Potassium 4.7 mmoL/L (3.5-5.1); Sodium 142 mmol/L (136-145); Total Protein,Serum 7.8 g/dl (6.3-8.2)
== END ==
PROVIDERS: PCP Family Medicine; Visit Provider Family Medicine
DX: N28.9 Disorder of kidney and ureter, unspecified (principal)
CPT/HCPCS: 80053

== ENCOUNTER → 2023-05-02 08:12 | Outpatient (CLI) | payer MEDICARE, MEDICAID, SELFPAY ==
[2023-05-02 08:54] LABS: Albumin Level 4.7 g/dl (3.5-5.0); Chloride 103 mmol/L (98-107); Potassium 4.8 mmoL/L (3.5-5.1); Sodium 140 mmol/L (136-145)
[2023-05-02 08:57] LABS: Anion Gap 13.8 mEq/L (5-15); Blood Urea Nitrogen 34 mg/dl (9-20); Calcium 10.1 mg/dl (8.4-10.2); Carbon Dioxide 28 mmol/L (22.0-30.0); Estimated Glomerular Filt Rate 35 ml/min (>60); GFR (African American) 42 ML/MIN (>60); Glucose 128 mg/dl (74-100); Phosphorous 4.7 mg/dl (2.5-4.5)
== END ==
PROVIDERS: PCP Family Medicine; Visit Provider Internal Medicine Nephrology
DX: N17.9 Acute kidney failure, unspecified (principal); N18.9 Chronic kidney disease, unspecified
CPT/HCPCS: 36415; 80069

== ENCOUNTER → 2023-05-09 08:28 | Outpatient (CLI) | payer MEDICARE, MEDICAID, SELFPAY ==
[2023-05-09 08:40] LABS: Microscopic, Urine URINE MICROSCOPIC (MICROSCOPIC)
[2023-05-09 09:05] LABS: Basophils % 0.7 % (0.1-2.0); Eosinophils # 0.2 K/mm3 (0.0-0.4); Eosinophils % 2.7 % (0.1-12.0); Hematocrit 42.8 % (42.0-52.0); Lymphocytes # 1.8 K/mm3 (0.7-4.5); Lymphocytes % 29.6 % (10-50); Mean Corpuscular HGB Conc 32.8 g/dL (31.8-35.4); Mean Corpuscular Hemoglobin 29.3 pg (27.0-31.2); Mean Corpuscular Volume 89.4 fl (80-94); Mean Platelet Volume 8.8 fl (7.4-10.4); Monocytes # 0.4 K/mm3 (0.1-1.0); Monocytes % 5.7 % (1.7-9.3); Neutrophils # 3.8 K/mm3 (1.8-7.8); Neutrophils % 61.2 % (37.0-80.0); Platelet Count 223 K/mm3 (142-424); Red Blood Count 4.79 M/mm3 (4.60-6.20); Red Cell Distribution Width 14.2 % (11.5-17.5); White Blood Count 6.2 K/mm3 (4.8-10.8)
[2023-05-09 09:45] LABS: Appearance,Urine CLEAR (Clear); Bilirubin,Urine Negative (Negative); Blood, Urine Negative (Negative); Color,Urine YELLOW (Yellow); Glucose,Urine (UA) 3+ (Negative); Ketones,Urine Negative (Negative); Leukocyte Esterase,Urine Negative (Negative); Nitrate,Urine Negative (Negative); Protein,Urine Negative (Negative); Specific Gravity, Urine 1.015 (1.005-1.030)
[2023-05-09 10:09] LABS: Chloride 104 mmol/L (98-107); Potassium 4.5 mmoL/L (3.5-5.1); Sodium 140 mmol/L (136-145)
[2023-05-09 10:10] LABS: Albumin Level 4.4 g/dl (3.5-5.0)
[2023-05-09 10:12] LABS: Anion Gap 13.5 mEq/L (5-15); Blood Urea Nitrogen 27 mg/dl (9-20); Carbon Dioxide 27 mmol/L (22.0-30.0); Estimated Glomerular Filt Rate 45 ml/min (>60); GFR (African American) 54 ML/MIN (>60)
[2023-05-09 10:13] LABS: Calcium 9.5 mg/dl (8.4-10.2); Glucose 128 mg/dl (74-100); Phosphorous 3.5 mg/dl (2.5-4.5)
[2023-05-09 10:29] LABS: Squamous Epithelial Cell,Urine Occasional #/hpf (0-5); WBC,Urine Occasional #/hpf (0-3)
[2023-05-09 11:38] LABS: Creatinine,Urine Random 90 mg/dL (Not Estab.); Microalbumin < 6.000 mg/L (0-16.7)
== END ==
PROVIDERS: PCP Family Medicine; Visit Provider Internal Medicine Nephrology
DX: N17.9 Acute kidney failure, unspecified (principal); N18.9 Chronic kidney disease, unspecified
CPT/HCPCS: 36415; 80069; 81001; 82043; 82570; 85025

== ENCOUNTER → 2023-05-13 08:16 | Outpatient (CLI) | payer MEDICARE, MEDICAID, SELFPAY ==
--- NOTE | 2023-05-13 08:18 | US_ITS ---
FINAL REPORT CLINICAL HISTORY: LLQ PAIN FINDINGS: ABDOMINAL ULTRASOUND COMPLETE: TECHNIQUE: Ultrasound images of the abdomen were obtained. FINDINGS: The liver is fatty infiltrated. There are multiple small echogenic foci in the gallbladder favoring small gallstones but without well-defined shadowing. The common duct is normal. The pancreas is partially obscured. The right kidney measures 9.9 cm in length and is normal in echogenicity without hydronephrosis. The left kidney measures 10.9 cm in length and is normal in echogenicity without hydronephrosis. The spleen is enlarged. The aorta is normal in caliber. The vena cava is unremarkable. IMPRESSION: Probable gallstones. Consider follow-up. Reviewed, Interpreted and Dictated by Jean Shepard III, MD Transcribed by Chencho Morales Authenticated and [facility]
== END ==
PROVIDERS: PCP Family Medicine; Visit Provider Internal Medicine Nephrology
DX: R10.32 Left lower quadrant pain (principal)
CPT/HCPCS: 76700

== ENCOUNTER → 2023-06-18 12:00 | Outpatient (CLI) | payer MEDICARE, MEDICAID, SELFPAY ==
[2023-06-18 18:23] LABS: Chloride 107 mmol/L (98-107); Potassium 4.4 mmoL/L (3.5-5.1); Sodium 142 mmol/L (136-145)
[2023-06-18 18:25] LABS: Alanine Aminotransferase 28 U/L (12-78); Aspartate Amino Transferase 28 U/L (17-59); Blood Urea Nitrogen 16 mg/dl (9-20); Estimated Glomerular Filt Rate 56 ml/min (>60); GFR (African American) 68 ML/MIN (>60)
[2023-06-18 18:26] LABS: Albumin/Globulin Ratio 1.4 (1.1-1.8); Alkaline Phosphatase 61 U/L (38-126); Anion Gap 16.4 mEq/L (5-15); Bilirubin,Total 0.6 mg/dl (0.2-1.3); Calcium 9.5 mg/dl (8.4-10.2); Carbon Dioxide 23 mmol/L (22.0-30.0); Globulin 2.9 g/dL (1.3-3.2); Glucose 142 mg/dl (74-100); Total Protein,Serum 6.9 g/dl (6.3-8.2)
[2023-06-18 18:39] LABS: Hemoglobin A1C 6.4 % (4.0-6.0)
== END ==
PROVIDERS: PCP Family Medicine; Visit Provider Family Medicine
DX: N28.9 Disorder of kidney and ureter, unspecified (principal); E11.9 Type 2 diabetes mellitus without complications
CPT/HCPCS: 80053; 83036

== ENCOUNTER → 2023-07-07 14:30 | Outpatient (CLI) | payer MEDICARE, MEDICAID, SELFPAY ==
[2023-07-07 14:42] LABS: Microscopic, Urine URINE MICROSCOPIC (MICROSCOPIC)
[2023-07-07 15:21] LABS: Hemoglobin 15.5 g/dL (14.1-18.0); Mean Corpuscular HGB Conc 32.9 g/dL (31.8-35.4); Mean Corpuscular Hemoglobin 30.5 pg (27.0-31.2); Mean Corpuscular Volume 92.8 fl (80-94); Platelet Count 231 K/mm3 (142-424); Red Blood Count 5.07 M/mm3 (4.60-6.20); Red Cell Distribution Width 14.4 % (11.5-17.5); White Blood Count 6.6 K/mm3 (4.8-10.8)
[2023-07-07 16:04] LABS: Appearance,Urine CLEAR (Clear); Bilirubin,Urine Negative (Negative); Blood, Urine Negative (Negative); Color,Urine YELLOW (Yellow); Glucose,Urine (UA) 3+ (Negative); Ketones,Urine Negative (Negative); Leukocyte Esterase,Urine Negative (Negative); Nitrate,Urine Negative (Negative); PH,Urine 6.5 (5.0-8.5); Protein,Urine Negative (Negative)
[2023-07-07 16:06] LABS: Albumin Level 4.6 g/dl (3.5-5.0); Anion Gap 17.3 mEq/L (5-15); Blood Urea Nitrogen 30 mg/dl (9-20); Calcium 9.4 mg/dl (8.4-10.2); Carbon Dioxide 25 mmol/L (22.0-30.0); Chloride 105 mmol/L (98-107); Estimated Glomerular Filt Rate 52 ml/min (>60); GFR (African American) 62 ML/MIN (>60); Glucose 179 mg/dl (74-100); Phosphorous 3.8 mg/dl (2.5-4.5); Potassium 4.3 mmoL/L (3.5-5.1); Sodium 143 mmol/L (136-145)
[2023-07-07 16:10] LABS: Creatinine,Urine Random 72 mg/dL (Not Estab.)
== END ==
PROVIDERS: PCP Family Medicine; Visit Provider Internal Medicine Nephrology
DX: N18.2 Chronic kidney disease, stage 2 (mild) (principal)
CPT/HCPCS: 36415; 80069; 81001; 82570; 84155; 85014; 85018; 85048; 85049

== ENCOUNTER → 2023-08-13 23:11 | Outpatient (CLI) | payer MEDICARE, MEDICAID, SELFPAY ==
[2023-08-13 23:29] LABS: Microalbumin < 6.000 mg/L (0-16.7)
[2023-08-13 23:30] LABS: Creatinine,Urine Random 38 mg/dL (Not Estab.)
== END ==
PROVIDERS: PCP Family Medicine; Visit Provider Family Medicine
DX: M54.50 Low back pain, unspecified (principal)
CPT/HCPCS: 82043; 82570

== ENCOUNTER → 2023-08-19 10:14 | Outpatient (CLI) | payer MEDICARE, MEDICAID, SELFPAY ==
--- NOTE | 2023-08-19 10:14 | US_ITS ---
FINAL REPORT CLINICAL HISTORY: .left sided pain FINDINGS: The right kidney measures 10.9 cm in length. It is normal in echogenicity. There is no hydronephrosis. The left kidney measures 11.5 cm in length. It is normal in echogenicity. There is no hydronephrosis. The spleen is unremarkable. IMPRESSION: Normal renal ultrasound. Reviewed, Interpreted and Dictated by Babak Baxter MD Transcribed by Swati Kilgore Authenticated and [facility]
== END ==
PROVIDERS: PCP Family Medicine; Visit Provider Family Medicine
DX: M54.50 Low back pain, unspecified (principal); N28.9 Disorder of kidney and ureter, unspecified
CPT/HCPCS: 76770

== ENCOUNTER → 2023-09-09 12:58 | Outpatient (CLI) | payer MEDICARE, MEDICAID, SELFPAY ==
[2023-09-09 13:28] LABS: Microscopic, Urine URINE MICROSCOPIC (MICROSCOPIC)
[2023-09-09 14:13] LABS: Hematocrit 47.9 % (42.0-52.0); Mean Corpuscular HGB Conc 33.5 g/dL (31.8-35.4); Mean Corpuscular Hemoglobin 31.4 pg (27.0-31.2); Mean Corpuscular Volume 93.7 fl (80-94); Platelet Count 203 K/mm3 (142-424); Red Blood Count 5.11 M/mm3 (4.60-6.20); White Blood Count 7.4 K/mm3 (4.8-10.8)
[2023-09-09 14:18] LABS: Albumin Level 4.7 g/dl (3.5-5.0); Chloride 105 mmol/L (98-107); Potassium 4.4 mmoL/L (3.5-5.1); Sodium 142 mmol/L (136-145)
[2023-09-09 14:20] LABS: Blood Urea Nitrogen 25 mg/dl (9-20); Estimated Glomerular Filt Rate 56 ml/min (>60); GFR (African American) 68 ML/MIN (>60)
[2023-09-09 14:21] LABS: Anion Gap 13.4 mEq/L (5-15); Calcium 9.4 mg/dl (8.4-10.2); Carbon Dioxide 28 mmol/L (22.0-30.0); Glucose 159 mg/dl (74-100); Phosphorous 3.8 mg/dl (2.5-4.5)
[2023-09-09 14:44] LABS: Appearance,Urine CLEAR (Clear); Bilirubin,Urine Negative (Negative); Blood, Urine Negative (Negative); Color,Urine YELLOW (Yellow); Glucose,Urine (UA) 3+ (Negative); Ketones,Urine Negative (Negative); Leukocyte Esterase,Urine Negative (Negative); Nitrate,Urine Negative (Negative); Protein,Urine Negative (Negative); Specific Gravity, Urine 1.015 (1.005-1.030); Urobilinogen,Urine 0.2 EU/dl (0.2)
[2023-09-09 15:00] LABS: Creatinine,Urine Random 66 mg/dL (Not Estab.)
[2023-09-09 15:02] LABS: Bacteria,Urine Trace /lpf; Squamous Epithelial Cell,Urine Occasional #/hpf (0-5)
== END ==
PROVIDERS: PCP Family Medicine; Visit Provider Internal Medicine Nephrology
DX: N18.30 Chronic kidney disease, stage 3 unspecified (principal)
CPT/HCPCS: 36415; 80069; 81001; 82570; 84155; 85014; 85018; 85048; 85049

== ENCOUNTER → 2023-09-10 23:00 | Outpatient (CLI) | payer MEDICARE, MEDICAID, SELFPAY ==
[2023-09-10 18:30] LABS: Chol/HDL Ratio 6.3 (1-3.5); Cholesterol 138 mg/dl (140-200); HDL Cholesterol 22 mg/dl (40-60); Triglycerides 254 mg/dl (30-150); VLDL Cholesterol 51 mg/dL (0-40)
[2023-09-10 18:40] LABS: Amphetamine/Metha Screen,Urine Negative ng/ml (<1000); Barbiturates Screen,Urine Negative ng/ml (<200)
[2023-09-10 18:41] LABS: Direct LDL Cholesterol 86.45 mg/dL (100-129)
[2023-09-10 18:42] LABS: Benzodiazepines Screen,Urine Negative ng/ml (<200)
[2023-09-10 18:43] LABS: Cannabinoid Screen,Urine Negative ng/ml (<50)
[2023-09-10 18:44] LABS: Methadone Screen,Urine Negative ng/ml (<300)
[2023-09-10 18:45] LABS: Opiate Screen,Urine Negative ng/ml (<300)
[2023-09-10 19:04] LABS: Cocaine Screen,Urine Negative ng/ml (<300)
[2023-09-10 19:10] LABS: Phencyclidine Screen,Urine Negative ng/ml (<25)
[2023-09-10 19:52] LABS: Hemoglobin A1C 6.1 % (4.0-6.0)
== END ==
PROVIDERS: PCP Family Medicine; Visit Provider Family Medicine
DX: Z79.899 Other long term (current) drug therapy (principal); E11.9 Type 2 diabetes mellitus without complications; Z79.4 Long term (current) use of insulin
CPT/HCPCS: 80061; 80305; 83036

== ENCOUNTER 2023-12-22 19:31 | Outpatient (CLI) | payer MEDICARE, MEDICAID, SELFPAY ==
[2023-12-22 19:32] LABS: Chloride 107 mmol/L (98-107); Potassium 4.3 mmoL/L (3.5-5.1); Sodium 140 mmol/L (136-145)
[2023-12-22 19:35] LABS: Alanine Aminotransferase 37 U/L (12-78); Albumin Level 4.6 g/dl (3.5-5.0); Albumin/Globulin Ratio 1.5 (1.1-1.8); Alkaline Phosphatase 50 U/L (38-126); Anion Gap 13.3 mEq/L (5-15); Aspartate Amino Transferase 31 U/L (17-59); Bilirubin,Total 1.1 mg/dl (0.2-1.3); Blood Urea Nitrogen 35 mg/dl (9-20); Calcium 10.2 mg/dl (8.4-10.2); Carbon Dioxide 24 mmol/L (22.0-30.0); Cholesterol 165 mg/dl (140-200); Estimated Glomerular Filt Rate 45 ml/min (>60); GFR (African American) 54 ML/MIN (>60); Glucose 186 mg/dl (74-100); Total Protein,Serum 7.6 g/dl (6.3-8.2)
[2023-12-22 19:36] LABS: Chol/HDL Ratio 8.7 (1-3.5); HDL Cholesterol 19 mg/dl (40-60)
[2023-12-22 19:38] LABS: Hemoglobin A1C 6.5 % (4.0-6.0)
[2023-12-22 19:39] LABS: Triglycerides 467 mg/dl (30-150)
[2023-12-22 19:46] LABS: Direct LDL Cholesterol 69.83 mg/dL (100-129)
== END 2023-12-22 23:59 ==
LOC: LAB.DROPOF 19:31
PROVIDERS: PCP Family Medicine; Visit Provider Family Medicine
DX: E11.9 Type 2 diabetes mellitus without complications (principal); Z79.4 Long term (current) use of insulin; Z79.84 Long term (current) use of oral hypoglycemic drugs
CPT/HCPCS: 80053; 80061; 83036

== ENCOUNTER 2024-03-11 13:14 | Outpatient (CLI) | payer MEDICARE, MEDICAID, SELFPAY ==
[2024-03-11 13:19] LABS: Microscopic, Urine URINE MICROSCOPIC (MICROSCOPIC)
[2024-03-11 14:23] LABS: Hematocrit 44.9 % (42.0-52.0); Hemoglobin 15.1 g/dL (14.1-18.0); Mean Corpuscular HGB Conc 33.6 g/dL (31.8-35.4); Mean Corpuscular Hemoglobin 31.8 pg (27.0-31.2); Mean Corpuscular Volume 94.6 fl (80-94); Platelet Count 194 K/mm3 (142-424); Red Blood Count 4.74 M/mm3 (4.60-6.20); Red Cell Distribution Width 14.7 % (11.5-17.5); White Blood Count 6.3 K/mm3 (4.8-10.8)
[2024-03-11 14:42] LABS: Appearance,Urine CLEAR (Clear); Bilirubin,Urine Negative (Negative); Blood, Urine Negative (Negative); Color,Urine YELLOW (Yellow); Glucose,Urine (UA) 3+ (Negative); Ketones,Urine Negative (Negative); Leukocyte Esterase,Urine Negative (Negative); Nitrate,Urine Negative (Negative); Protein,Urine Negative (Negative); Specific Gravity, Urine 1.015 (1.005-1.030); Urobilinogen,Urine 0.2 EU/dl (0.2)
[2024-03-11 16:17] LABS: Bacteria,Urine Trace /lpf; Squamous Epithelial Cell,Urine Occasional #/hpf (0-5)
[2024-03-11 17:17] LABS: Creatinine,Urine Random 66 mg/dL (Not Estab.)
[2024-03-11 18:07] LABS: Chloride 107 mmol/L (98-107)
[2024-03-11 18:08] LABS: Albumin Level 4.2 g/dl (3.5-5.0); Potassium 4.5 mmoL/L (3.5-5.1); Sodium 140 mmol/L (136-145)
[2024-03-11 18:10] LABS: Blood Urea Nitrogen 19 mg/dl (9-20); Estimated Glomerular Filt Rate 56 ml/min (>60); GFR (African American) 67 ML/MIN (>60)
[2024-03-11 18:11] LABS: Anion Gap 12.5 mEq/L (5-15); Calcium 9.5 mg/dl (8.4-10.2); Carbon Dioxide 25 mmol/L (22.0-30.0); Glucose 177 mg/dl (74-100); Phosphorous 4.2 mg/dl (2.5-4.5)
== END 2024-03-11 23:59 | disposition home or self-care (01) ==
LOC: LAB 13:15
PROVIDERS: PCP Family Medicine; Visit Provider Internal Medicine Nephrology
DX: N18.30 Chronic kidney disease, stage 3 unspecified (principal)
CPT/HCPCS: 36415; 80069; 81001; 82570; 84156; 85014; 85018; 85048; 85049

== ENCOUNTER 2024-03-15 13:33 | Outpatient (POV) | payer MEDICARE, MEDICAID, SELFPAY | END 2024-03-15 23:59 | disposition home or self-care (01) | LOC: SC 13:33 | PROVIDERS: Visit Provider Internal Medicine Nephrology | DX: Z00.00 Encounter for general adult medical examination without abnormal findings (principal) ==

== ENCOUNTER 2024-09-13 15:43 | Outpatient (CLI) | payer MEDICARE, MEDICAID, SELFPAY ==
[2024-09-13 19:08] LABS: Chol/HDL Ratio 5.2 (1-3.5); Cholesterol 124 mg/dl (140-200); HDL Cholesterol 24 mg/dl (40-60); Triglycerides 258 mg/dl (30-150); VLDL Cholesterol 52 mg/dL (0-40)
[2024-09-13 19:19] LABS: Direct LDL Cholesterol 67.12 mg/dL (100-129)
[2024-09-13 21:24] LABS: Creatinine,Urine Random 70 mg/dL (Not Estab.)
[2024-09-13 21:35] LABS: Microalbumin < 6.000 mg/L (0-16.7)
[2024-09-13 23:19] LABS: Hemoglobin A1C 6.7 % (4.0-6.0)
== END 2024-09-13 23:59 | disposition home or self-care (01) ==
LOC: LAB.DROPOF 09-15 09:37
PROVIDERS: PCP Family Medicine; Visit Provider Family Medicine
DX: E11.9 Type 2 diabetes mellitus without complications (principal); I10 Essential (primary) hypertension
CPT/HCPCS: 80061; 82043; 82570; 83036

== ENCOUNTER 2025-02-03 07:31 | Outpatient (CLI) | payer MEDICARE, MEDICAID, SELFPAY ==
--- NOTE | 2025-02-03 | CA_ITS ---
APPROVED REPORT Exam: Pharmacologic Technologist: Mala Olivas Ht: 6 ft 0 in Wt: 236 lbs BSA: 2.29 m2 Medical History Medications: allopurinol, aspirin, atorvastatin, diltiazem HCI CD, empagliflozin, fenofibrate nanocrystallized, finerenone, gabapentin, glucagon, HCTZ, novolog, lisinopril, bystolic, omeprazole, viagra, tramadol Stress Test Details Test: Lexiscan Reason for pharmacologic stress test: physical limitation. HR Resting HR: 41 bpm Max Heart Rate (APMHR): 177.792160 bpm Max HR Achieved: 54 bpm Target HR (85% APMHR): 150.960165 bpm % of APMHR: 30.51 Recovery HR: 43 bpm BP Resting BP: 105.0/64.0 mmHg Max BP: 110.0/51.0 mmHg Recovery BP: 93.0/50.0 mmHg ECG Stress ECG Conclusion Symptoms: SOA, legs tingling, denies CP, dizziness with hypotension-took Bystolic this A.M. Arrhythmias/Ectopy: None. ST-T Changes: EKG [id number]. Electronically signed by : Kristi Kidd MD 02/03/2025 13:02:35
--- NOTE | 2025-02-03 08:00 | NM_ITS ---
APPROVED REPORT Exam: Nuclear Stress Test Indication: htn, diabetes, hyperlipidemia, palpitations, fatigue Patient Location: Outpatient Stress Tech: Mala ARRIOLA Tech:CHRISTOPHER Nick RT(R)(N) Ht: 6 ft 1 in Wt: 240 lbs HR: 44 bpm BP: 105/64 mmHg BSA: 2.33 m2 TID: 1.24 BMI: 31.6 History: htn, diabetes, hyperlipidemia, palpitations, fatigue Procedure: Patient received 0.4 mg of intravenous Lexiscan, resting heart rate 44 bpm, resting blood pressure 105/64 mmHg, with Lexiscan maximum heart rate achieved was 62 bpm which is % of the maximum predicted heart rate and blood pressure was 110/51 mmHg. With Lexiscan, patient denied any complaint of chest pain. Cardiac Stress and Resting SPECT Images: Cardiac Stress and Resting SPECT images were obtained using technetium 99m Myoview 30.8 mCi stress and 10.49 mCi at rest. Resting and stress imaging in supine and prone positions demonstrate no evidence of fixed or reversible perfusion defects. There is increase in transient ischemic dilatation ratio (TID 1.24) suggestive of possible multivessel disease or balanced ischemia. Gated imaging demonstrates mild reduction global LV systolic function. LVEF is calculated at 44%. Conclusion: No evidence of fixed or reversible perfusion defects. There is increase in transient ischemic dilatation ratio (TID 1.24) suggestive of possible multivessel disease or balanced ischemia. Gated imaging demonstrates mild reduction global LV systolic function. LVEF is calculated at 44%. Electronically signed by : Kristi Kidd MD 02/03/2025 12:59:30
[2025-02-03] MEDS: ISOTOPE MYOVIEW (PER STUDY) 1 DOSE IV (11:17)
[2025-02-03] MEDS: SODIUM CHLORIDE 0.9% 10ML SYR (RAD ONLY) 10 ML IV ×2 (11:17)
[2025-02-03] MEDS: REGADENOSON 0.4MG/5ML SYRINGE 0.4 MG IV (11:17)
== END 2025-02-03 23:59 | disposition home or self-care (01) ==
LOC: RAD 07:32
PROVIDERS: PCP Family Medicine; Visit Provider Internal Medicine
DX: R93.1 Abnormal findings on diagnostic imaging of heart and coronary circulation (principal); R53.83 Other fatigue; R07.89 Other chest pain
CPT/HCPCS: 78452; 93017; 93018; A9502; J2785

== ENCOUNTER 2025-02-11 08:40 | Emergency (ER) | payer MEDICARE, MEDICAID, SELFPAY ==
[2025-02-11] VITALS (11 sets, daily range): BP systolic 126–147; BP diastolic 64–101; PULSE 42–62; RESP 13–19; TEMP 36.6–36.7; O2SAT 95–98; BMI 32.1
--- NOTE | 2025-02-11 08:48 | ECG_ITS ---
APPROVED REPORT Exam: Resting ECG HR:47 bpm ECG Measurements Heart Rate 47 AXES OK 171 P 42 QRSd 96 QRS 16 QT 420 T 35 QTc 384 Conclusion SINUS BRADYCARDIA WITH SINUS ARRHYTHMIA No STEMI Electronically signed by : MONET BURGOS, 02/11/2025 09:53:45
--- NOTE | 2025-02-11 08:55 | XR_ITS ---
FINAL REPORT CLINICAL HISTORY: chest pain FINDINGS: A portable view of the chest was obtained. Cardiac and mediastinal silhouettes are within normal limits. The lungs are clear. There is no pleural effusion or pneumothorax. IMPRESSION: No acute process on this portable exam. Reviewed, Interpreted and Dictated by Antonella Jarvis MD Transcribed by Swati Kilgore Authenticated and [facility]
[2025-02-11 09:06] LABS: Basophils # 0.1 K/mm3 (0-0.2); Basophils % 0.8 % (0.1-2.0); Eosinophils # 0.1 Kmm3 (0.0-0.4); Eosinophils % 2.2 % (0.1-12.0); Hematocrit 46.7 % (42.0-52.0); Hemoglobin 15.8 g/dL (14.1-18.0); Immature Granulocytes # 0.01 10^3uL; Immature Granulocytes % 0.2 %; Lymphocytes # 1.7 K/mm3 (0.7-4.5); Lymphocytes % 25.9 % (10-50); Mean Corpuscular HGB Conc 33.8 g/dL (31.8-35.4); Mean Corpuscular Hemoglobin 30.2 pg (27.0-31.2); Mean Corpuscular Volume 89.3 fl (80-94); Mean Platelet Volume 11.1 fl (7.4-10.4); Monocytes # 0.5 K/mm3 (0.1-1.0); Monocytes % 7.3 % (1.7-9.3); Neutrophils # 4.1 K/mm3 (1.8-7.8); Neutrophils % 63.6 % (37.0-80.0); Nucleated Red Blood Cells # 0 10^3/uL; Nucleated Red Blood Cells % 0 %; Platelet Count 225 K/mm3 (142-424); Red Blood Count 5.23 M/mm3 (4.60-6.20); Red Cell Distribution Width 13.2 % (11.5-17.5); Red Cell Distribution Width-SD 42.9 fL; White Blood Count 6.4 K/mm3 (4.8-10.8)
[2025-02-11 09:18] LABS: Activated Partial Thrombo Time 26.6 seconds (22.8-30.6); Alanine Aminotransferase 34 U/L (12-78); Albumin Level 4.9 g/dl (3.5-5.0); Albumin/Globulin Ratio 1.8 (1.1-1.8); Alkaline Phosphatase 45 U/L (38-126); Anion Gap 10.6 mEq/L (5-15); Aspartate Amino Transferase 29 U/L (17-59); Bilirubin,Total 0.9 mg/dl (0.2-1.3); Blood Urea Nitrogen 37 mg/dl (9-20); Calcium 9.6 mg/dl (8.4-10.2); Carbon Dioxide 28 mmol/L (22.0-30.0); Chloride 105 mmol/L (98-107); Estimated Glomerular Filt Rate 47 ml/min (>60); GFR (African American) 57 ML/MIN (>60); Globulin 2.8 g/dL (1.3-3.2); Glucose 167 mg/dl (74-100); INR 0.99 (0.9-1.1); Potassium 4.6 mmoL/L (3.5-5.1); Prothrombin Time 11.1 seconds (10.1-12.5); Sodium 139 mmol/L (136-145); Total Protein,Serum 7.7 g/dl (6.3-8.2)
--- NOTE | 2025-02-11 09:24 | HMH.EDGENADL ---
Discharge Plan Disposition Patient Disposition: Home, Self-Care Condition: Good Prescriptions Prescriptions: New meclizine 25 mg tablet 25 mg PO QID PRN (Reason: dizziness) Qty: 20 0RF prednisone 20 mg tablet 40 mg PO DAILY 4 Days Qty: 8 0RF fluticasone propionate [Flonase Allergy Relief] 50 mcg/actuation spray,suspension 1 spray intranasal DAILY Qty: 16 0RF Rx Instructions: administer into each nostril cetirizine [Zyrtec] 10 mg tablet 10 mg PO DAILY Qty: 30 0RF No Action (DME) pen needle, diabetic 31 gauge x 3/16 needle See Rx Instructions .ROUTE .MEDSUPPLY Qty: 1200 Patient Comments: USE DIRECTED 3 TIMES A DAY FOR INSULIN Rx Instructions: As directed nebivolol [Bystolic] 5 mg tablet 5 mg PO DAILY Qty: 30 2RF G[employer]oke HypoPen 2-Pack 1 mg/0.2 mL auto-injector 1 mg SQ ONCE Qty: 0.4 0RF Rx Instructions: inject if glucose less than 50 and can not eat or drink allopurinol 300 mg tablet See Rx Instructions .ROUTE .COMPLEX Qty: 90 3RF Dose Instruction: TAKE ONE TABLET BY MOUTH ONCE A DAY Rx Instructions: TAKE ONE TABLET BY MOUTH ONCE A DAY aspirin 81 mg tablet,delayed release (DR/EC) See Rx Instructions .ROUTE .COMPLEX Qty: 100 3RF Dose Instruction: TAKE ONE TABLET BY MOUTH ONCE A DAY Rx Instructions: TAKE ONE TABLET BY MOUTH ONCE A DAY atorvastatin [Lipitor] 40 mg tablet 40 mg PO DAILY Qty: 90 3RF (DME) [employer] G6 Transmitter Device See Rx Instructions .ROUTE .MEDSUPPLY Qty: 3 12RF Rx Instructions: As directed diltiazem HCl 180 mg capsule,extended release 24hr 180 mg PO DAILY Qty: 90 3RF Jardiance 25 mg tablet 25 mg PO DAILY Qty: 90 3RF fenofibrate nanocrystallized 145 mg tablet See Rx Instructions .ROUTE .COMPLEX Qty: 90 3RF Dose Instruction: TAKE ONE TABLET BY MOUTH ONCE A DAY Rx Instructions: TAKE ONE TABLET BY MOUTH ONCE A DAY Kerendia 10 mg tablet 10 mg PO DAILY Qty: 30 10RF gabapentin 300 mg capsule 300 mg PO BID 30 Days Qty: 60 5RF hydrochlorothiazide 25 mg tablet 25 mg PO DAILY Qty: 90 3RF insulin aspart U-100 [Novolog FlexPen U-100 Insulin] 100 unit/mL (3 mL) insulin pen 30 unit SQ TID Qty: 15 10RF Rx Instructions: 30 units half hour before meals (3xday) lisinopril 20 mg tablet 20 mg PO DAILY Qty: 90 3RF omeprazole 40 mg capsule,delayed release(DR/EC) See Rx Instructions .ROUTE .COMPLEX Qty: 90 3RF Dose Instruction: TAKE ONE CAPSULE BY MOUTH ONCE A DAY Rx Instructions: TAKE ONE CAPSULE BY MOUTH ONCE A DAY (DME) pen needle, diabetic [Pen Needle] 31 gauge x 5/16 needle See Rx Instructions .Route Qty: 100 3RF Rx Instructions: Use three times daily for insulin sildenafil [Viagra] 100 mg tablet 100 mg PO DAILY PRN (Reason: sexual activity) Qty: 7 10RF Rx Instructions: administer 30 minutes to 4 hours before activity tramadol 50 mg tablet 50 mg PO QID PRN (Reason: pain) 30 Days Qty: 120 5RF (DME) Dexcom G6 Pantry Worker Misc See Rx Instructions .ROUTE .MEDSUPPLY Qty: 1 0RF Rx Instructions: As directed (DME) Dexcom G6 Sensor Device See Rx Instructions .ROUTE .MEDSUPPLY Qty: 1 0RF Rx Instructions: As directed Referrals Follow up/Referrals: David Iverson MD [Primary Care Provider] - See instructions Activity Restrictions/Add. Instructions Additional Instructions/Restrictions: You were evaluated in the emergency department today. Please follow-up closely with your primary care provider as well as with cardiology. Return to the emergency department for new or worsening symptoms. Hold your bisoprolol if your heart rate is less than 60. Wear your holter monitor 1 week as instructed. Clinical Impressions Clinical Impression: Dizziness, Sinus bradycardia, Vertigo Stand Alone Forms Stand Alone Forms: Work/School Release Instructions Patient Instructions: Dizziness, Nonvertigo, DI for Bradycardia, DI for Dizziness-Nonvertigo Print Language Print Language: Nepali Discharge ED Provider: Adriana Cole General Adult HPI General Chief complaint: Dizziness Stated complaint: low b/p, weak, dizzy Time Seen by Provider: 02/11/25 08:58 History of Present Illness HPI narrative: This patient is a 45-year-old male with a history of hypertension, hyperlipidemia, GERD, unstable angina, elevated coronary artery calcium score, diabetes, and CKD presenting to the emergency department for evaluation with concern for dizziness, generally feeling unwell, low heart rate. According the patient's , he was lethargic this morning. He states that he woke up feeling dizzy like the room is spinning. It is worse with movement and makes him not want to move. He denies experienced anything like this in the past. No headache, visual disturbance, numbness, tingling, weakness, or gait disturbance. No chest pain, shortness of breath, or other concerns. He notes he has had some intermittent bouts of chest pain and has been feeling unwell, prompting this cardiac workup. He states he has not felt right since he had a stress test at the beginning of the month. No other concerns or complaints noted at this time. Related Data Home Medications ?Medication ?Instructions ?Recorded ?Confirmed pen needle, diabetic 31 gauge x #1,200 ea 02/10/25 02/10/2512/19 Previous Rx's ?Medication ?Instructions ?Recorded glucagon 1 mg/0.2 mL subcutaneous 1 mg (0.2 mL) SQ ONCE #0.4 mL 12/28/20 auto-injector ([employer] HypoPen 2-Pack) blood-glucose sensor (Dexcom G6 #1 ea 06/13/23 Sensor device) blood-glucose,commercial retoucher,cont #1 ea 06/13/23 (Dexcom G6 Pantry Worker) allopurinol 300 mg tablet See Rx Instructions .Route 12/22/24 .COMPLEX #90 tabs aspirin 81 mg tablet,delayed See Rx Instructions .Route 12/22/24 release .COMPLEX #100 tabs atorvastatin 40 mg tablet (Lipitor) 40 mg PO DAILY #90 tabs 12/22/24 blood-glucose transmitter (Dexcom #3 ea 12/22/24 G6 Transmitter device) diltiazem HCl 180 mg 180 mg PO DAILY #90 caps 12/22/24 capsule,extended release 24 hr empagliflozin 25 mg tablet 25 mg PO DAILY #90 tabs 12/22/24 (Jardiance) fenofibrate nanocrystallized 145 See Rx Instructions .Route 12/22/24 mg tablet .COMPLEX #90 tabs finerenone 10 mg tablet (Kerendia) 10 mg PO DAILY #30 tabs 12/22/24 gabapentin 300 mg capsule 300 mg PO BID 30 days #60 caps 12/22/24 hydrochlorothiazide 25 mg tablet 25 mg PO DAILY #90 tabs 12/22/24 insulin aspart U-100 100 unit/mL 30 unit (0.3 mL) SQ TID #15 mL 12/22/24 (3 mL) subcutaneous pen (Novolog FlexPen U-100 Insulin aspart) lisinopril 20 mg tablet 20 mg PO DAILY #90 tabs 12/22/24 omeprazole 40 mg capsule,delayed See Rx Instructions .Route 12/22/24 release .COMPLEX #90 caps pen needle, diabetic 31 gauge x #100 ea 12/22/24 5/16 (Pen Needle) sildenafil 100 mg tablet (Viagra) 100 mg PO DAILY PRN sexual 12/22/24 activity #7 tabs tramadol 50 mg tablet 50 mg PO QID PRN pain 30 days #120 12/22/24 tabs nebivolol 5 mg tablet (Bystolic) 5 mg PO DAILY #30 tabs 02/10/25 cetirizine 10 mg tablet (Zyrtec) 10 mg PO DAILY #30 tabs 02/11/25 fluticasone propionate 50 1 spray intranasal DAILY #16 grams 02/11/25 mcg/actuation nasal spray,suspension (Flonase Allergy Relief) meclizine 25 mg tablet 25 mg PO QID PRN dizziness #20 tabs 02/11/25 prednisone 20 mg tablet 40 mg (2 x 20 mg) PO DAILY 4 days 02/11/25 #8 tabs Allergies Allergy/AdvReac Type Severity Reaction Status Date / Time No Known Allergies Allergy Verified 02/10/25 14:39 [facility] Disclaimer: The information contained in this section may have been updated after the patient was seen, as this information can be updated by other users. 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 Diabetes Hyperlipidemia GERD (gastroesophageal reflux disease) Hypertension Social History Smoking Status: Never smoker alcohol intake: never substance use type: denies use current occupational status: disabled Travel in the last 8 weeks?: None household members: family housing: house current occupation: unemployed - disabilty Other Medical History Have you received the Flu Vaccine for this season: No Have you received the Pneumonia Vaccine: No ROS Obtained: Yes All systems reviewed & no additional complaints except as documented Physical Exam General General appearance: alert and in no apparent distress Head Head exam: atraumatic and normocephalic Eye Eye exam: Present normal appearance, PERRL, EOMI and nystagmus (Unidirectional horizontal beating nystagmus reassuring for peripheral cause of vertigo) ENT ENT exam: Present normal exam, normal oropharynx, mucous membranes moist and normal external ear exam Neck Neck exam: Present normal inspection, full ROM and trachea midline; Absent tenderness Chest Chest inspection: Present normal inspection and symmetric chest wall rise; Absent tenderness Respiratory Respiratory exam: Present normal lung sounds bilaterally; Absent respiratory distress, wheezes, stridor or accessory muscle use Cardiovascular Cardiovascular exam: Present normal rhythm and bradycardia Abdominal Exam Abdominal exam: Present soft; Absent distention, tenderness or guarding Extremities Exam Extremities exam: Present normal inspection, full ROM and normal capillary refill; Absent tenderness or edema Back Exam Back exam: Present normal inspection and full ROM; Absent tenderness Neurological Exam Neurological exam: Present alert, oriented X3, CN II-XII intact and normal gait; Absent motor sensory deficit Psychiatric Psychiatric exam: Present normal affect and normal mood Skin Skin exam: Present warm and dry Medical Decision Making Medical Records Medical records reviewed: Yes I reviewed the patient's medical records. Screening: Per USPSTF and CDC recommendations, given the prevalence of disease in our region, it is our hospital?s policy to screen for HIV and viral Hepatitis for all patients aged 18 and over and those with ongoing risk factors. Federico Inquiry Pt receiving controlled substance: No Vital Signs: 02/11/25 09:00 02/11/25 09:31 02/11/25 09:32 Temperature 97.8 F Temperature Source Oral Pulse Rate 48 L 46 L Pulse Rate [Orthostatic Lying Left] Pulse Rate [Orthostatic Sitting Left] Pulse Rate [Orthostatic Standing Left] Pulse Rate [Right] 46 L Respiratory Rate 14 19 16 Blood Pressure 134/78 126/101 H Blood Pressure [Orthostatic Lying Left Arm] Blood Pressure [Orthostatic Sitting Left Arm] Blood Pressure [Orthostatic Standing Left Arm] Blood Pressure [Right Arm] 147/85 H Blood Pressure Mean Blood Pressure Mean [Right Arm] 105 Blood Pressure Source Blood Pressure Source [Right Arm] Automatic Cuff 02 Sat by Pulse Oximetry 97 97 98 Oxygen Delivery Method Room Air Room Air Room Air 02/11/25 09:55 02/11/25 10:00 02/11/25 10:26 Temperature Temperature Source Pulse Rate 42 L 53 L Pulse Rate [Orthostatic Lying Left] 45 L Pulse Rate [Orthostatic Sitting Left] 51 L Pulse Rate [Orthostatic Standing Left] 53 L Pulse Rate [Right] Respiratory Rate 15 14 Blood Pressure 141/72 H 134/74 Blood Pressure [Orthostatic Lying Left Arm] 134/74 Blood Pressure [Orthostatic Sitting Left Arm] 140/82 Blood Pressure [Orthostatic Standing Left Arm] 134/79 Blood Pressure [Right Arm] Blood Pressure Mean Blood Pressure Mean [Right Arm] Blood Pressure Source Blood Pressure Source [Right Arm] 02 Sat by Pulse Oximetry 97 98 Oxygen Delivery Method Room Air Room Air 02/11/25 10:27 02/11/25 10:28 02/11/25 10:30 Temperature Temperature Source Pulse Rate 62 55 L 43 L Pulse Rate [Orthostatic Lying Left] Pulse Rate [Orthostatic Sitting Left] Pulse Rate [Orthostatic Standing Left] Pulse Rate [Right] Respiratory Rate 13 15 15 Blood Pressure 140/82 134/79 135/64 Blood Pressure [Orthostatic Lying Left Arm] Blood Pressure [Orthostatic Sitting Left Arm] Blood Pressure [Orthostatic Standing Left Arm] Blood Pressure [Right Arm] Blood Pressure Mean Blood Pressure Mean [Right Arm] Blood Pressure Source Blood Pressure Source [Right Arm] 02 Sat by Pulse Oximetry 97 97 95 Oxygen Delivery Method Room Air Room Air Room Air 02/11/25 11:00 02/11/25 11:29 Temperature 98.1 F Temperature Source Oral Pulse Rate 42 L 49 L Pulse Rate [Orthostatic Lying Left] Pulse Rate [Orthostatic Sitting Left] Pulse Rate [Orthostatic Standing Left] Pulse Rate [Right] Respiratory Rate 13 17 Blood Pressure 128/68 128/68 Blood Pressure [Orthostatic Lying Left Arm] Blood Pressure [Orthostatic Sitting Left Arm] Blood Pressure [Orthostatic Standing Left Arm] Blood Pressure [Right Arm] Blood Pressure Mean 85 Blood Pressure Mean [Right Arm] Blood Pressure Source Automatic Cuff Blood Pressure Source [Right Arm] 02 Sat by Pulse Oximetry 96 Oxygen Delivery Method Room Air Lab Data Lab results reviewed: Yes I reviewed the patient's lab results. Lab Results 02/11/25 08:53: WBC 6.4, RBC 5.23, Hgb 15.8, Hct 46.7, MCV 89.3, MCH 30.2, MCHC 33.8, RDW 13.2, Plt Count 225, MPV 11.1 H, Neut % (Auto) 63.6, Lymph % (Auto) 25.9, Bailey % (Auto) 7.3, Eos % (Auto) 2.2, Baso % (Auto) 0.8, Neut # (Auto) 4.1, Lymph # (Auto) 1.7, Bailey # (Auto) 0.5, Eos # (Auto) 0.1, Baso # (Auto) 0.1, PT 11.1, INR 0.99, APTT 26.6, Sodium 139, Potassium 4.6, Chloride 105, Carbon Dioxide 28, Anion Gap 10.6, BUN 37 H, Creatinine 1.60 H, Estimated GFR 47 L, Est GFR ( Amer) 57 L, Glucose 167 H, Calcium 9.6, Total Bilirubin 0.9, AST 29, ALT 34, Alkaline Phosphatase 45, Troponin I < 0.01, Total Protein 7.7, Albumin 4.9, Globulin 2.8, Albumin/Globulin Ratio 1.8, TSH 0.76, Thyroxine (T4) 6.9, HCV Ab FARIDA w/Rflx PCR Qn Negative, HIV Ag/Ab Combo Qual Negative 02/11/25 08:53 02/11/25 08:53 Orders (Tests/Meds): ED MEDICATIONS Discontinued Medications Generic Name Dose Route Start Last Admin Trade Name Freq PRN Reason Stop Dose Admin Lactated Ringer's 1,000 mls @ 999 mls/hr 02/11/25 09:07 02/11/25 09:26 Lactated Ringer's 1000 Ml Bag IV 02/11/25 10:07 999 mls/hr .Q1H1M ONE Administration Meclizine HCl 25 mg 02/11/25 09:07 02/11/25 09:26 Meclizine 25mg Tablet PO 02/11/25 09:08 25 mg ONCE ONE Administration ORDERS Category Date Time Status CXR --portable [XR chest portable] Stat Exams 02/11/25 08:55 Completed Complete Blood Count Auto Diff Stat Lab 02/11/25 08:53 Completed Comprehensive Metabolic Panel Stat Lab 02/11/25 08:53 Completed HIV Combo Stat Lab 02/11/25 08:53 Completed Hepatitis C Ab Qual. W/ RFX Stat Lab 02/11/25 08:53 Completed PT INR [Prothrombin Time INR] Stat Lab 02/11/25 08:53 Completed PTT [Activated Partial Thrombo Time] Stat Lab 02/11/25 08:53 Completed T4 (Thyroxine) Stat Lab 02/11/25 08:53 Completed TSH [Thyroid Stimulating Hormone] Stat Lab 02/11/25 08:53 Completed Trop I [Troponin I] Stat Lab 02/11/25 08:53 Completed ECG Data Tracing #1: I reviewed this ECG and interpreted as documented below: Sinus bradycardia with sinus arrhythmia with a ventricular to 47 bpm. No acute STEMI. ECG initial impression date: 02/11/25 ECG initial impression time: 08:54 Medical Decision Narrative: In summary, this patient is a 45-year-old male presenting to the Emergency Department for evaluation of dizziness and generally feeling unwell. Differential diagnoses considered include but are not limited to vertigo, BPPV, central vertigo, symptomatic bradycardia, hypotension, viral syndrome. Ruling out the most morbid conditions drove assessment. It should be noted patient's history includes cardiovascular history and diabetes which are not currently at goal therapy. This complicates all aspects of care by increasing patient's risk for morbidity. I reviewed patient's past medical records and noted evaluation yesterday by cardiology at which point his bisoprolol was decreased because of bradycardia. He was also provided with a 7-day event monitor for bradycardia and palpitations. They plan for left heart cath On exam, the patient is sitting upright in no acute distress. He is bradycardic but his blood pressure is 130 systolic on cardiac telemetry. No hypotension. Neurologic exam is reassuring with intact coordination and no focal neurologic deficits. He does have horizontal unidirectional beating nystagmus that is fatigable concerning for peripheral cause of his vertigo, and I do not feel he likely has a central process based on reassuring history and exam. Since he has a true room spinning sensation, I feel it is more likely to be vertigo as opposed to symptomatic bradycardia, but will check orthostatic vital signs. Workup included CBC, CMP, coags, TSH, T4, chest x-ray, EKG. He was given a bolus of IV fluids as well as oral meclizine to assess for symptomatic improvement. I independently interpreted chest x-ray prior to the radiologist read and noted no large focal consolidation, no pneumothorax. Please see their read for final interpretation. Labs were obtained that demonstrated reassuring CBC with no significant leukocytosis or anemia, chemistry demonstrates kidney function is not significantly different from his baseline, no significant electrolyte derangements. Workup overall is very reassuring. EKG is reassuring.. On reassessment, patient had good improvement after administration of meclizine but still does have some symptoms if he gets up and gets moving around. Orthostatic vital signs are reassuring and he remains neurologically intact. I feel he likely has benign cause of vertigo based on reassuring history and exam, and I feel that he is appropriate for discharge home with trial of steroids, meclizine, and Flonase to treat his symptoms as well as instructions for close follow-up with PCP, cardiology. He was given strict return precautions. I also advised that he hold his bisoprolol tonight if his heart rate continues to be low Critical Care Critical Care Time Critical Care Time: No
[2025-02-11] MEDS: LACTATED RINGERS 1000ML 1,000 ML 999 ML IV (09:26)
[2025-02-11] MEDS: MECLIZINE 25MG TABLET 25 MG PO (09:26)
[2025-02-11 09:37] LABS: T4 (Thyroxine) 6.9 ug/dl (5.53-11.0)
[2025-02-11 09:38] LABS: Troponin I < 0.01 ng/ml (0.00-0.034)
[2025-02-11 09:51] LABS: Thyroid Stimulating Hormone 0.76 uIU/mL (0.465-4.68)
--- NOTE | 2025-02-11 10:15 | PC.NURSE ---
Rounded on pt. He is resting comfortably. Orthostatics have been completed and WNL, however pt did get dizzy on standing. notified
[2025-02-11 10:55] LABS: HIV Combo NEGATIVE (Negative)
[2025-02-11 11:04] LABS: Hepatitis C Ab Qual. W/ RFX NEGATIVE (Negative)
== END 2025-02-11 11:33 | disposition home or self-care (01) ==
PROVIDERS: Emergency Provider Emergency Medicine; PCP Family Medicine
DX: R42 Dizziness and giddiness (principal); R00.1 Bradycardia, unspecified; R53.1 Weakness; Z11.59 Encounter for screening for other viral diseases; Z11.4 Encounter for screening for human immunodeficiency virus [HIV]
CPT/HCPCS: 71045; 80053; 84436; 84443; 84484; 85025; 85610; 85730; 86803; 87389; 93005; 96360; 99284; J7120

== ENCOUNTER 2025-02-11 11:36 | Outpatient (CLI) | payer MEDICARE, MEDICAID, SELFPAY | END 2025-02-11 23:59 | disposition home or self-care (01) | LOC: RT 11:36 | PROVIDERS: PCP Family Medicine; Visit Provider Internal Medicine | DX: I49.3 Ventricular premature depolarization (principal); I20.89 Other forms of angina pectoris; I10 Essential (primary) hypertension; E78.5 Hyperlipidemia, unspecified; R94.39 Abnormal result of other cardiovascular function study; R93.1 Abnormal findings on diagnostic imaging of heart and coronary circulation; R40.0 Somnolence; R00.1 Bradycardia, unspecified | CPT/HCPCS: 93225; 93226; 93227 ==

== ENCOUNTER 2025-02-14 10:00 | Outpatient (CLI) | payer MEDICARE, MEDICAID, SELFPAY | END 2025-02-14 23:59 | disposition home or self-care (01) | LOC: RT 10:00 | PROVIDERS: PCP Family Medicine; Visit Provider Internal Medicine | DX: R00.2 Palpitations (principal) | CPT/HCPCS: 93270 ==

== ENCOUNTER 2025-02-15 13:37 | Outpatient (CLI) | payer MEDICARE, MEDICAID, SELFPAY ==
--- NOTE | 2025-02-15 | CA_ITS ---
APPROVED REPORT EXAM: Comprehensive 2D, Doppler, and color-flow Echocardiogram Carpenter: Babita Reyse, WILLY, RVS Ht: 6 ft 0 in Wt: 231lbs BSA: 2.27 BP: 112/62 mmHg Indications: CKD, LCF, CP, DM, HTN, HLD, SOB, Fatigue 2D Dimensions Aortic Root 2.97 cm LA Volume 66.90 mL Left Atrium 3.97 cm LA Volume Index 29.097951 mL/m2 (M/F) 16-34 RVID Base (AP4) 3.59 cm (M/F) 2.5-4.1 EF AP4 53.50 % LVOT 1.78 cm (M/F) 1.5-2.5 GL Strain -20.0 % M-Mode Dimensions RVDd 3.05 cm (0.9-2.6) LVDd 5.42 cm (3.5-5.7) Ao Diam 3.19 cm (2.0-3.7) LVDs 3.78 cm (3.5-5.7) IVSd 1.49 cm (0.6-1.1) PWd 1.13 cm (0.6-1.1) EF (Teich) 57.10% EPSs 0.44 cm FS 30.30% EDV (Teich) 142.50 mL TAPSE 2.83 (<1.7) ESV (Teich) 61.20 mL LV Diastology E Decel Time 142 (160-240 msec) E/A Ratio 1.41 MED E' 20.7 (>= 7 cm/sec) MED A' 23.80 cm/s E'/MED E' Ratio 3.21 (<= 14) LAT E' 25.4 (>= 10 cm/sec) LAT A' 27.50 cm/s E/LAT E' Ratio 2.61 (<= 14) Aortic Valve LVOT Max 97.0 (70-110 cm/s) JON Index 0.88 cm2/m2 LVOT VTI 20.57 cm AoV Peak Carlos. 133.0 (50-130 cm/s) AO Mean GR. 3.50 (<5 mmHg) AO VTI 25.6 (18-25 cm) JON (VTI) 2.00 (2.5-4.5 cm2) Mitral Valve MV E Max Carlos. 66.0 (40-130 cm/s) MV A Velocity 47.0 (40-130 cm/s) E/A Ratio 1.41 MV Decel. Time 142 (160-240 ms) Tricuspid Valve TR P. Velocity 185.00 cm/s RAP Estimate 10.00 mmHg RVSP 23.60 mmHg Left Ventricle The left ventricle is normal size. The left ventricular systolic function is normal. The left ventricular ejection fraction is within the normal range. There is increased LV wall thickness. There is normal LV segmental wall motion. The left ventricular diastolic function is normal. LVEF is 55%. Right Ventricle The right ventricle is normal size. The right ventricular systolic function is normal. Atria The left atrium size is normal. The right atrium size is normal. There is no color Doppler evidence of interatrial shunt. Aortic Valve The aortic valve is mildly thickened. There is no aortic valvular stenosis. No aortic regurgitation is present. Mitral Valve The mitral valve is normal in structure. No evidence of mitral valve stenosis. Trace mitral regurgitation. Tricuspid Valve Tricuspid valve is grossly normal in structure and function. Mild tricuspid regurgitation. RVSP is 20-25 mmHg. Pulmonic Valve The pulmonary valve is normal in structure. Trace pulmonic regurgitation. Great Vessels The aortic root is normal in size. IVC is normal in size and collapses >50% with inspiration. Pericardium There is no pericardial effusion. Other Information Study Quality: Fair Conclusion Normal biventricular systolic function. Mild TR. Electronically signed by : Kristi Kidd MD 02/15/2025 23:11:35
== END 2025-02-15 23:59 | disposition home or self-care (01) ==
LOC: RT 13:38
PROVIDERS: PCP Family Medicine; Visit Provider Internal Medicine
DX: I07.1 Rheumatic tricuspid insufficiency (principal); I20.89 Other forms of angina pectoris; E78.5 Hyperlipidemia, unspecified; I12.9 Hypertensive chronic kidney disease with stage 1 through stage 4 chronic kidney disease, or unspecified chronic kidney disease; N18.9 Chronic kidney disease, unspecified; E11.9 Type 2 diabetes mellitus without complications; R94.39 Abnormal result of other cardiovascular function study; R93.1 Abnormal findings on diagnostic imaging of heart and coronary circulation
CPT/HCPCS: 93306

== ENCOUNTER 2025-02-16 09:14 | Day surgery (SDC) | payer MEDICARE, MEDICAID, SELFPAY ==
[2025-02-16] VITALS (13 sets, daily range): BP systolic 95–144; BP diastolic 54–97; PULSE 60–94; RESP 18; TEMP 36.6–36.7; O2SAT 88–97; BMI 31.3
--- NOTE | 2025-02-16 07:12 | IR_ITS ---
APPROVED REPORT Patient Location: Outpatient PROCEDURES Left heart catheterization Left ventriculogram Selective coronary angiogram INDICATION Abnormal Myoview Informed consent was obtained prior to the procedure. COMPLICATIONS NONE Estimated Blood Loss: LESS THAN 10 ML TECHNIQUE One percent lidocaine used to anesthetize the right anterior aspect of the wrist. The right radial artery was accessed via the Seldinger technique. A 6 Kiswahili sheath was placed in the right radial artery. 2.5 mg of Verapamil, 800 mcg of nitroglycerin, 1mg Lidocaine and 5000 U Heparin were given through the arterial sheath. The JL3 catheter was also used to perform left heart catheterization, left ventriculogram and selective coronary angiogram. At the end of the procedure the sheath was removed good hemostasis was achieved using Traclet band, patient was transferred to the postop holding area in stable condition. ANGIOGRAPHIC RESULTS The left main artery Normal The left anterior descending artery Has proximal tendon 20% stenosis followed by an additional concentric hazy 80% stenosis immediately adjacent to a medium sized first diagonal artery and large first septal price analyst. There is additional 30% distal stenoses. The LAD is large and wraps the apex The circumflex artery Is codominant and gives rise to a large first obtuse marginal artery which has an ostial proximal 80% stenosis. Distal to the obtuse marginal artery the mid LAD has 50% hazy stenosis which extends into a moderate-sized second obtuse marginal artery The right coronary artery Is codominant has proximal 60 to 70% concentric stenosis with mid vessel 30% stenosis The CATHERINE ventriculogram reveals Reduced at 45% The left ventricular end-diastolic pressure 20 mmHg IMPRESSION Severe three-vessel coronary artery disease and an insulin requiring diabetic Reduced ejection fraction Borderline elevated LVEDP PLAN 1. Patient will be referred to [facility] for consideration of bypass surgery 2. LDL less than 55 to be achieved with high intensity statin Electronically signed by : Ludin Gonzalez MD 02/16/2025 12:01:52
[2025-02-16 09:35] LABS: Basophils # 0.1 K/mm3 (0-0.2); Basophils % 0.7 % (0.1-2.0); Eosinophils # 0.1 Kmm3 (0.0-0.4); Eosinophils % 1.7 % (0.1-12.0); Hematocrit 47.3 % (42.0-52.0); Hemoglobin 16.2 g/dL (14.1-18.0); Immature Granulocytes # 0.03 10^3uL; Immature Granulocytes % 0.4 %; Mean Corpuscular HGB Conc 34.2 g/dL (31.8-35.4); Mean Corpuscular Hemoglobin 30.3 pg (27.0-31.2); Mean Corpuscular Volume 88.4 fl (80-94); Mean Platelet Volume 10.7 fl (7.4-10.4); Monocytes # 0.6 K/mm3 (0.1-1.0); Monocytes % 8.9 % (1.7-9.3); Neutrophils # 4.3 K/mm3 (1.8-7.8); Neutrophils % 60.3 % (37.0-80.0); Nucleated Red Blood Cells # 0 10^3/uL; Nucleated Red Blood Cells % 0 %; Platelet Count 223 K/mm3 (142-424); Red Blood Count 5.35 M/mm3 (4.60-6.20); Red Cell Distribution Width 13.2 % (11.5-17.5); Red Cell Distribution Width-SD 42.8 fL; White Blood Count 7.2 K/mm3 (4.8-10.8)
[2025-02-16 10:01] LABS: Blood Urea Nitrogen 26 mg/dl (9-20); Calcium 9.4 mg/dl (8.4-10.2); Carbon Dioxide 30 mmol/L (22.0-30.0); Chloride 103 mmol/L (98-107); Creatinine Clearance Estimated 88 mL/min (50-200); Estimated Glomerular Filt Rate 47 ml/min (>60); GFR (African American) 57 ML/MIN (>60); Glucose 215 mg/dl (74-100); Sodium 139 mmol/L (136-145)
[2025-02-16] MEDS: NITROGLYCERIN 800MCG/8ML SYR (CATH LAB) 800 MCG IA (11:18)
[2025-02-16] MEDS: VERAPAMIL 2.5MG/ML 2ML VIAL 2.5 MG IV (11:18)
[2025-02-16] MEDS: HEPARIN 1,000 UNITS/ML 10ML VIAL (CATH LAB) 5000 UNIT IV (11:18)
[2025-02-16] MEDS: HEPARIN 1,000 UNITS/500ML NS (CATH LAB) 3000 UNIT IV (11:19)
[2025-02-16] MEDS: LIDOCAINE 1% 10ML MDV 10 ML IJ (11:19)
[2025-02-16] MEDS: diphenhydrAMINE 50MG/ML VIAL 50 MG IV (11:19)
[2025-02-16] MEDS: 0.9 % SODIUM CHLORIDE 500 ML 25 ML IV ×2 (11:19→14:57)
[2025-02-16] MEDS: MIDAZOLAM HCL 1MG/ML 5ML VIAL 1 MG IV (11:52)
[2025-02-16] MEDS: FENTANYL 100MCG/2ML VIAL 50 MCG IV (11:52)
[2025-02-16] MEDS: IOPAMIDOL-370 (76%);100ML BOTTLE 70 ML IV (13:21)
[2025-02-16] MEDS: HYDROCODONE/APAP 5/325 MG TABLET 1 TAB PO (14:26)
--- NOTE | 2025-02-16 14:45 | SUR.PHASEII ---
Patient was getting up from bed from d/c, felt dizzy and diaphroetic and pale. Laid patient down and put [place] position , took vitals B/P-93/63. HR-50. Gave 4mg zofran for nausea, IV fluid bolus of 500ml. Patient family at bedside.
[2025-02-16] MEDS: ONDANSETRON 4MG/2ML VIAL 4 MG IV (14:46)
== END 2025-02-16 15:23 | disposition home or self-care (01) ==
LOC: CATHLAB 09:14
PROVIDERS: PCP Family Medicine; Visit Provider Internal Medicine
PROC: 4A023N7 Measurement of Cardiac Sampling and Pressure, Left Heart, Percutaneous Approach (ICD-10-PCS; CPT 93452; principal; 2025-02-16 10:00)
DX: I25.118 Atherosclerotic heart disease of native coronary artery with other forms of angina pectoris (principal); R00.2 Palpitations; R94.39 Abnormal result of other cardiovascular function study; R93.1 Abnormal findings on diagnostic imaging of heart and coronary circulation; E78.5 Hyperlipidemia, unspecified; I12.9 Hypertensive chronic kidney disease with stage 1 through stage 4 chronic kidney disease, or unspecified chronic kidney disease; R07.89 Other chest pain; E11.22 Type 2 diabetes mellitus with diabetic chronic kidney disease; Z79.4 Long term (current) use of insulin; N18.9 Chronic kidney disease, unspecified; Z79.899 Other long term (current) drug therapy
CPT/HCPCS: 80048; 85025; 93458; 99152; C1725; C1769; J1200; J1644; J2405; J3010; Q9967

== ENCOUNTER 2025-03-09 11:12 | Outpatient (CLI) | payer MEDICARE, MEDICAID, SELFPAY ==
[2025-03-09 11:21] LABS: Microscopic, Urine URINE MICROSCOPIC (MICROSCOPIC)
[2025-03-09 11:58] LABS: Basophils % 0.5 % (0.1-2.0); Eosinophils # 0.2 Kmm3 (0.0-0.4); Eosinophils % 2.7 % (0.1-12.0); Hematocrit 43.6 % (42.0-52.0); Hemoglobin 14.2 g/dL (14.1-18.0); Immature Granulocytes # 0.01 10^3uL; Immature Granulocytes % 0.2 %; Lymphocytes # 1.5 K/mm3 (0.7-4.5); Lymphocytes % 26.4 % (10-50); Mean Corpuscular HGB Conc 32.6 g/dL (31.8-35.4); Mean Corpuscular Hemoglobin 29.3 pg (27.0-31.2); Mean Corpuscular Volume 90.1 fl (80-94); Monocytes # 0.4 K/mm3 (0.1-1.0); Neutrophils # 3.7 K/mm3 (1.8-7.8); Neutrophils % 63.2 % (37.0-80.0); Nucleated Red Blood Cells # 0 10^3/uL; Nucleated Red Blood Cells % 0 %; Platelet Count 225 K/mm3 (142-424); Red Blood Count 4.84 M/mm3 (4.60-6.20); Red Cell Distribution Width 13.3 % (11.5-17.5); Red Cell Distribution Width-SD 43.8 fL; White Blood Count 5.8 K/mm3 (4.8-10.8)
[2025-03-09 11:58] LABS: Appearance,Urine SL CLOUDY (Clear); Bilirubin,Urine Negative (Negative); Blood, Urine Negative (Negative); Color,Urine YELLOW (Yellow); Glucose,Urine (UA) 3+ (Negative); Ketones,Urine Negative (Negative); Leukocyte Esterase,Urine Negative (Negative); Nitrate,Urine Negative (Negative); Protein,Urine 2+ (Negative); Urobilinogen,Urine 0.2 EU/dl (0.2)
[2025-03-09 12:08] LABS: Creatinine,Urine Random 61 mg/dL (Not Estab.)
[2025-03-09 12:13] LABS: Chloride 102 mmol/L (98-107)
[2025-03-09 12:14] LABS: Albumin Level 4.7 g/dl (3.5-5.0); Potassium 4.7 mmoL/L (3.5-5.1); Sodium 140 mmol/L (136-145)
[2025-03-09 12:17] LABS: Alanine Aminotransferase 27 U/L (12-78); Alkaline Phosphatase 42 U/L (38-126); Anion Gap 13.7 mEq/L (5-15); Aspartate Amino Transferase 24 U/L (17-59); Bilirubin,Direct 0.2 mg/dl (0.0-0.4); Bilirubin,Indirect 0.7 mg/dL (0.0-0.9); Bilirubin,Total 0.9 mg/dl (0.2-1.3); Bilirubin,Unconjugated 0.6 mg/dL (0.0-1.1); Blood Urea Nitrogen 27 mg/dl (9-20); Calcium 9.4 mg/dl (8.4-10.2); Carbon Dioxide 29 mmol/L (22.0-30.0); Cholesterol 114 mg/dl (140-200); Estimated Glomerular Filt Rate 51 ml/min (>60); GFR (African American) 62 ML/MIN (>60); Glucose 147 mg/dl (74-100); Total Protein,Serum 7.4 g/dl (6.3-8.2); Triglycerides 172 mg/dl (30-150); VLDL Cholesterol 34 mg/dL (0-40)
[2025-03-09 12:18] LABS: HDL Cholesterol 23 mg/dl (40-60)
[2025-03-09 12:27] LABS: Sperm,Urine 2+ /lpf
[2025-03-09 12:28] LABS: Bacteria,Urine Trace /lpf
[2025-03-09 12:28] LABS: Direct LDL Cholesterol 57.19 mg/dL (100-129)
[2025-03-09 12:30] LABS: Free T4 (Free Thyroxine) 0.84 ng/dl (0.78-2.19)
== END 2025-03-09 23:59 | disposition home or self-care (01) ==
LOC: LAB 11:12
PROVIDERS: Internal Medicine; PCP Family Medicine; Visit Provider Internal Medicine Nephrology
DX: N18.30 Chronic kidney disease, stage 3 unspecified (principal)
CPT/HCPCS: 36415; 80048; 80061; 80076; 81001; 82570; 83735; 84156; 84439; 84443; 85025

== ENCOUNTER 2025-04-06 14:29 | Outpatient (CLI) | payer MEDICARE, MEDICAID, SELFPAY ==
--- OUTSIDE RECORDS SUMMARY | 2025-02-17 11:40 | XMS_ITS | Encounter Summary ---
Author Organization Healthcare Address [address] [place] [address] Care Team Providers Care Quebracho Tanner Name Role Phone David Iverson MD Primary Care Provider [phone] Ludin Gonzalez MD Unavailable [phone] Encounter Details Date Type Department Care Team (Late st Contact Info) Description 02/17/2025 11:40 AM EDT [facility] [address], [address] [place] [address] Musa Rosado MD [address] [place] [address] Coronary artery disease due to [...] Miscellaneous Notes * Progress Notes - Zulay Syed, OIL HEATER INSTALLER - 02/17/2025 11:40 AM EDT Reason for [...] kidney disease, with long-term current use of insulin([facility]) 01/14/2022 Medical History: Past Medical History: Diagnosis [...] Yes Chavez Lambert MD Easy Touch Pen [place] 31G X 8 MM misc 04/18/23 Yes [...] first diagonal artery and 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 There is additional 30% distal stenosis. The [...] by Dr. Gonzalez in regards to recent [facility] with results indicating multi-vessel coronary artery [...] 04/14/2025 3:40 PM EDT Office Visit [place] [facility] Cardiothoracic [address], [address] [place] [address] Musa Rosado MD [address] [place] [address] 06/13/2025 11:40 AM EDT Office Visit [facility] Nephrology, Bone & Mineral Metabolism [address], [address] [place] [address] Sonia Medley MD [address] [place] [address] documented as of this encounter Goals Goal Patient Goal Type Associated Problems Recent Progress Patient-Stated? Author Autogenerat ed Goal Care Plan Autogenerated Problem No Zulya Syed, NATHANIEL documented as of this encounter [...] 2:43 PM Final report signed by Musa Cloe MD on 03/21/2025 2:58 PM Zulay Syed [...] ORDERABL ES Final Result BLOOD BANK [address] [place] [address], * APTT (03/21/2025 1:19 PM EDT) aPTT 28 25 - 35 sec LAB COAGULATION METHOD 03/21/2025 2:51 PM EDT [facility] Blood Venous blood specimen / Unknown Venipuncture / Unknown 03/21/2025 1:19 PM EDT 03/21/2025 1:19 PM EDT Zulay Syed APRN LAB BLOOD ORDERABLES Final R esult Performing Organization Address [facility] Co de Phone Number [facility] [address] [place] [address] * Protime-INR (03/21/2025 1:19 PM EDT) Prothrombin Time 13.7 12.0 - 14.3 sec LAB COAGULATION METHOD 03/21/2025 2:51 PM EDT [facility] INR 1.0 0.9 - 1.1 LAB COAGULATION METHOD 03/21/2025 2:51 PM EDT [facility] Blood Venous blood specimen / Unknown Venipuncture / Unknown 03/21/2025 1:19 PM EDT 03/21/2025 1:19 PM EDT Narrative [facility] - 03/21/2025 2:51 PM EDT OPTIMAL INR RANGES FOR PATIENT ON ORAL ANTICOAGULANT THERAPY Prevention of venous thromboembolism INR 2.0 to 3.0 In patients with heart disease: Atrial fibrillation INR 2.0 to 3.0 Valvular heart disease INR 2.0 to 3.0 Tissue heart valves INR 2.0 to 3.0 Mechanical prosthetic valves INR 2.5 to 3.5 Prevention of recurrent NH INR 2.5 to 3.5 Zulay Syed APRN LAB BLOOD ORDERABLES Final R esult Performing Organization Address [facility] Co de Phone Number [facility] [address] [place] [address] * (ABNORMAL) Comprehensive metabolic panel (03/21/2025 1:19 PM EDT) Glucose, Plasma 155(H) 74 - 99 mg/dL 03/21/2025 2:49 PM EDT [facility] BUN, Plasma 21 7 - 21 mg/dL 03/21/2025 2:49 PM EDT [facility] Creatinine, Plasma 1.35(H) 0.70 - 1.20 mg/dL 03/21/2025 2:49 PM EDT [facility] BUN/Creatinine Ratio 16 03/21/2025 2:49 PM EDT [facility] Sodium, Plasma 139 136 - 145 mmol/L 03/21/2025 2:49 PM EDT [facility] Potassium, Plasma 4.1 3.6 - 4.9 mmol/L 03/21/2025 2:49 PM EDT [facility] Chloride, Plasma 103 97 - 107 mmol/L 03/21/2025 2:49 PM EDT [facility] CO2, Plasma 25 22 - 29 mmol/L 03/21/2025 2:49 PM EDT [facility] Anion Gap 11 6 - 16 mmol/L 03/21/2025 2:49 PM EDT [facility] Total Calcium, Plasma 9.6 8.9 - 10.2 mg/dL 03/21/2025 2:49 PM EDT [facility] Total Protein 7.2 6.3 - 7.9 g/dL 03/21/2025 2:49 PM EDT [facility] Albumin, Plasma 4.5 3.5 - 5.2 g/dL 03/21/2025 2:49 PM EDT [facility] AST, Plasma 19 10 - 50 U/L 03/21/2025 2:49 PM EDT [facility] ALT, Plasma 24 10 - 50 U/L 03/21/2025 2:49 PM EDT [facility] Alkaline Phosphatase, Plasma 41 40 - 115 U/L 03/21/2025 2:49 PM EDT [facility] Total Bilirubin, Plasma 0.5 0.2 - 1.1 mg/dL 03/21/2025 2:49 PM EDT [facility] eGFRcr 66.8 mL/min/1.7 3m*2 03/21/2025 2:49 PM EDT [facility] Comment:Reported eGFRcr in m L/min/1.73m2 is based the CKD-EPI 2020 equation that does not use a race coefficient. Blood Venous blood specimen / Unknown Venipuncture / Unknown 03/21/2025 1:19 PM EDT 03/21/2025 1:19 PM EDT us Zulay Syed OIL HEATER INSTALLER LAB BLOOD ORDERABLES Final R esult [facility] [address] [place] [address] * CBC and Differential (03/21/2025 1:19 PM EDT) WBC Count 6.31 3.70 - 10.30 10*3/uL LAB HEMATOLOGY METHOD 03/21/2025 3:03 PM EDT [facility] RBC Count 4.75 4.60 - 6.10 10*6/uL LAB HEMATOLOGY METHOD 03/21/2025 3:03 PM EDT [facility] HGB 14.2 13.7 - 17.5 g/dL LAB HEMATOLOGY METHOD 03/21/2025 3:03 PM EDT [facility] HCT 42.9 40.0 - 51.0 % LAB HEMATOLOGY METHOD 03/21/2025 3:03 PM EDT [facility] Platelet Count 214 155 - 369 10*3/uL LAB HEMATOLOGY METHOD 03/21/2025 3:03 PM EDT [facility] MCV 90 79 - 98 fL LAB HEMATOLOGY METHOD 03/21/2025 3:03 PM EDT [facility] MCH 29.9 26.0 - 32.0 pg LAB HEMATOLOGY METHOD 03/21/2025 3:03 PM EDT [facility] MCHC 33.1 30.7 - 35.5 g/dL LAB HEMATOLOGY METHOD 03/21/2025 3:03 PM EDT [facility] RDW 13.2 11.5 - 14.5 % LAB HEMATOLOGY METHOD 03/21/2025 3:03 PM EDT [facility] MPV 11.6 8.8 - 12.5 fL LAB HEMATOLOGY METHOD 03/21/2025 3:03 PM EDT [facility] nRBC 0.0 <=0.0 per 100 WBCs LAB HEMATOLOGY METHOD 03/21/2025 3:03 PM EDT [facility] Differential Type Automated LAB HEMATOLOGY METHOD 03/21/2025 3:03 PM EDT [facility] Neutrophils % 61 % LAB HEMATOLOGY METHOD 03/21/2025 3:03 PM EDT [facility] Lymphocytes % 29 % LAB HEMATOLOGY METHOD 03/21/2025 3:03 PM EDT [facility] Monocytes % 7 % LAB HEMATOLOGY METHOD 03/21/2025 3:03 PM EDT [facility] Eosinophils % 2 % LAB HEMATOLOGY METHOD 03/21/2025 3:03 PM EDT [facility] Basophils % 1 % LAB HEMATOLOGY METHOD 03/21/2025 3:03 PM EDT [facility] Immature Granulocytes % 0 % LAB HEMATOLOGY METHOD 03/21/2025 3:03 PM EDT [facility] Neutrophils Absolute 3.84 1.60 - 6.10 10*3/uL LAB HEMATOLOGY METHOD 03/21/2025 3:03 PM EDT [facility] Lymphocytes Absolute 1.81 1.20 - 3.90 10*3/uL LAB HEMATOLOGY METHOD 03/21/2025 3:03 PM EDT [facility] Monocytes Absolute 0.46 0.30 - 0.90 10*3/uL LAB HEMATOLOGY METHOD 03/21/2025 3:03 PM EDT [facility] Eosinophils Absolute 0.13 0.00 - 0.50 10*3/uL LAB HEMATOLOGY METHOD 03/21/2025 3:03 PM EDT [facility] Basophils Absolute 0.05 0.00 - 0.10 10*3/uL LAB HEMATOLOGY METHOD 03/21/2025 3:03 PM EDT [facility] Immature Granulocytes Absolute 0.02 0.00 - 0.06 10*3/uL LAB HEMATOLOGY METHOD 03/21/2025 3:03 PM EDT [facility] Blood Venous blood specimen / Unknown Venipuncture / Unknown 03/21/2025 1:19 PM EDT 03/21/2025 1:19 PM EDT Narrative [facility] - 03/21/2025 3:03 PM EDT Therapeutic decision making should be based on absolute values, rather than percentages. us Zulay Syed APRN LAB BLOOD ORDERABLES Final R esult [facility] [address] [place] [address] documented in this encounter Visit Diagnoses Diagnosis [...] documented as of this encounter Care Teams Quebracho Tanner Relationship Specialty Start Date End Date David Iverson MD PCP - General 06/06/22 Ludin Gonzalez MD [address] [place] [address] Referring Physician 02/18/25 documented as of this encounter
--- OUTSIDE RECORDS SUMMARY | 2025-03-14 11:40 | XMS_ITS | Encounter Summary ---
Author Organization Healthcare Address [address] [place] [address] Care Team Providers Care Manager Talent Name Role Phone David Iverson MD Primary Care Provider [phone] Ludin Gonzalez MD Unavailable [phone] Reason for Referral * Consultation (Routine) - Authorized Specialty Diagnoses / Procedures Referred By Contac t Referred To Contact Diagnoses Stage 3 chronic kidney disease, unspecified whether stage 3a or 3b CKD (CMS/HCC) Sonia Medley MD [address] [place] [phone] Phone: tel: fax: Referral ID Status Reason Start Date Expiration Date V isits Requested Visits Authorized [id number] Authorized 03/14/2025 09/13/2026 1 1 Reason for Visit * Reason Comments Follow-up Encounter Details Date Type Department Care Team ([facility] st Contact Info) Description 03/14/2025 11:40 AM EDT Office Visit [facility] Nephrology, Bone & Mineral Metabolism [address] , [address] [place] [address] Sonia Medley MD [address] [place] [address] Stage 3 chronic kidney disease, unspecified whether stage 3a or 3b CKD (CMS/HCC) (Primary Dx) Social History Tobacco Use Types [...] Sign Reading Time Taken Comments Blood Pressure 101/63 03/14/2025 11:45 AM EDT Pulse 63 03/14/2025 11:45 AM EDT Temperature 36.9 C (98.5 F) 03/14/2025 11:45 AM EDT Respiratory Rate 16 03/14/2025 11:45 AM EDT Oxygen Saturation 95% 03/14/2025 11:45 AM EDT Inhaled Oxygen Concentration - - Weight 104 kg (229 lb) 03/14/2025 11:45 AM EDT Height 182.9 cm (6') 03/14/2025 11:45 AM EDT PER PT Body Mass Index 31.06 03/14/2025 11:45 AM EDT documented in this encounter Miscellaneous Notes * Patient Instructions - Sonia Medley MD - 03/14/2025 11:40 AM EDT Continue current BP meds. * Progress Notes - Sonia Medley MD - 03/14/2025 11:40 AM EDT SUBJECTIVE Lizandro Sprague is a 45 y.o. male who presents for follow-up of CKD 3. Reports he has been feeling tired for some time. Underwent heart cath and found to have 3 vessel blockage. Planning to undergo CT surgery with Dr. Rosado this month. BP stable. Nebivolol was decreased to 5 mg from 10 mg due to feeling tired/ lightheaded. Since change, feeling much better. Denies hematuria, dysuria, edema, SOA, CP. OBJECTIVE Vitals: 03/14/25 1145 BP: 101/63 Pulse: 63 Resp: 16 Temp: 36.9 ??C (98.5 ??F) SpO2: 95% PHYSICAL EXAMINATION Gen: NAD, well-developed HEENT: AT/NC, EOMI CV: regular rate Pulm: no increased work of breathing, symmetric chest expansion Neuro: alert, interactive, cortical function grossly intact LAB RESULTS Lab Results Component Value Date CREATININE 1.46 (H) 02/17/2025 BUN 24 (H) 02/17/2025 NA 136 02/17/2025 K 4.1 02/17/2025 CL 100 02/17/2025 CO2 25 02/17/2025 Lab Results Component Value Date ALBUMIN 4.6 02/17/2025 Lab Results Component Value Date CALCIUM 9.6 02/17/2025 PHOS 3.7 09/15/2024 Lab Results Component Value Date WBC 8.03 02/17/2025 HGB 15.3 02/17/2025 HCT 45.7 02/17/2025 MCV 89 02/17/2025 PLT 217 02/17/2025 Outside labs 03/09/25 also reviewed. ASSESSMENT/PLAN 45 yo M with PMH of HTN, DM 2 with neuropathy, GERD, HLD who presents for follow up of CKD. - CKD 3: baseline CKD related to DM2 with hypertensive involvement. Past acute changes may be related with lisinopril 40 mg in conjunction with other medications started. UA bland, other than glucosuria due to SGLT2 inh. No primary kidney disease noted when looking at labs. Cr jumped to 2.1-2.2 04/23 and 05/02/23. Cr then down to 1.7 on 05/09/23. Kidneys normal on abdominal US. Latest Cr has been holding at 1.5, BUN 24-27, electrolytes wnl, eGFR 51 ml/min. No proteinuria on last UPC 09/2024. - Microalbuminuria/ Proteinuria: last UPC 0.12 mg/mg. On SGLT2I, finerenone, and lisinopril. - H/o LLQ Abdominal discomfort: enlarged spleen and fatty liver infiltration seen on abdominal US - HTN: controlled. - DM 2: working on control with PCP. On insulin and empagliflozin. Latest A1c 7.2%. - Vit D Deficiency: PTH 15 and vit D 18, ca and phos wnl. - CAD: will be undergoing 3vCABG 03/2025. Plan/ Recs: - continue lisinopril 20 mg daily. - continue Kerendia and empagliflozin - will monitor renal function shortly after CABG RTC in 3 months Orders Placed This Encounter Procedures Creatinine, Random, Urine Standing Status: Future Expected Date: 03/14/2025 Expiration Date: 09/13/2026 [facility] Protein, Random, Urine with Creatinine Standing Status: Future Expected Date: 03/14/2025 Expiration Date: 09/13/2026 [facility] Urinalysis with reflex microscopic (Culture NOT Included) Standing Status: Future Expected Date: 03/14/2025 Expiration Date: 09/13/2026 [facility] CBC W/O Differential Standing Status: Future Expected Date: 03/14/2025 Expiration Date: 09/13/2026 [facility] Renal Function Panel, Plasma Standing Status: Future Expected Date: 03/14/2025 Expiration Date: 09/13/2026 [facility] Im[facility] Follow Up Nephrology Standing Status: Future Expected Date: 06/14/2025 Expiration Date: 04/13/2026 Referral Priority: Routine Referral Type: Consultation Number of Visits Requested: 1 Note to Patient: The Cure Act makes medical noted like these available to patients in the interest of transparency. However, be advised this is a medical document. It is intended as peerto peer communication. It is written in medical language and may contain abbreviations or verbiage that are unfamiliar. It may appear blunt or direct. Medical documents are intended to carry relevantinformation, facts as evident, and the clinical opinion of the physician documented in this encounter Plan of Treatment Upcoming Encounters Date Type Department Care Team (Late st Contact Info) Description 04/14/2025 3:40 PM EDT Office Visit [facility] Cardiothoracic [address], [address] [place] [address] Musa Rosado MD [address] [place] [address] 06/13/2025 11:40 AM EDT Office Visit [facility] Nephrology, Bone & Mineral Metabolism [address], [address] [place] [address] Sonia Medley MD [address] [place] [address] Scheduled Referrals Name Type Priority Associated Diagnoses Orde r Schedule Follow Up Nephrology Outpatient Referral Routine Stage 3 chronic kidney disease, unspecified whether stage 3a or 3b CKD ([facility]/HCC) Expected: 06/14/2025 (Approximate), Expires: 04/13/2026 documented as of this encounter Goals Goal Patient Goal Type Associated Problems Recent Progress Patient-Stated? 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 Syed, NATHANIEL documented as of this encounter Results * (ABNORMAL) Urinalysis with reflex microscopic (Culture NOT Included) (03/21/2025 1:15 PM EDT) Color, Urine Yellow LAB URINALYSIS - AUTOMATED METHOD 03/21/2025 2:42 PM EDT [facility] Clarity, Urine Clear LAB URINALYSIS - AUTOMATED METHOD 03/21/2025 2:42 PM EDT [facility] Spec [place], Urine 1.023 1.005 - 1.030 LAB URINALYSIS - AUTOMATED METHOD 03/21/2025 2:42 PM EDT [facility] pH, Urine 7.0 5.0 - 8.0 LAB URINALYSIS - AUTOMATED METHOD 03/21/2025 2:42 PM EDT [facility] Protein, Urine Negative Negative mg/dL LAB URINALYSIS - AUTOMATED METHOD 03/21/2025 2:42 PM EDT [facility] Glucose, Urine >=1000(A) Negative mg/dL LAB URINALYSIS - AUTOMATED METHOD 03/21/2025 2:42 PM EDT [facility] Ketones, Urine Negative Negative mg/dL LAB URINALYSIS - AUTOMATED METHOD 03/21/2025 2:42 PM EDT [facility] Blood, Urine Negative Negative LAB URINALYSIS - AUTOMATED METHOD 03/21/2025 2:42 PM EDT [facility] Bilirubin, Urine Negative Negative LAB URINALYSIS - AUTOMATED METHOD 03/21/2025 2:42 PM EDT [facility] Urobilinogen, Urine 1.0 0.2 to 1.0 mg/dL LAB URINALYSIS - AUTOMATED METHOD 03/21/2025 2:42 PM EDT [facility] Leukocytes, Urine Negative Negative LAB URINALYSIS - AUTOMATED METHOD 03/21/2025 2:42 PM EDT [facility] Nitrite, Urine Negative Negative LAB URINALYSIS - AUTOMATED METHOD 03/21/2025 2:42 PM EDT [facility] Urine Urine specimen obtained by clean catch procedure / Unknown Non-blood Collection / Unknown 03/21/2025 1:15 PM EDT 03/21/2025 1:15 PM EDT us Sonia Medley MD LAB URINE ORDERABLES Fin al Result Performing Organization Address City/[facility]/ZIP Co de Phone Number [facility] [address] [place] [address] * Protein, Random, Urine with Creatinine (03/21/2025 1:15 PM EDT) Protein, Urine <6 mg/dL 03/21/2025 2:55 PM EDT [facility] Creatinine, Urine 77 mg/dL 03/21/2025 2:55 PM EDT [facility] Protein/Creatin ine Ratio 03/21/2025 2:55 PM EDT [facility] Urine Urine specimen obtained by clean catch procedure / Unknown Non-blood Collection / Unknown 03/21/2025 1:15 PM EDT 03/21/2025 1:15 PM EDT us Sonia Medley MD LAB URINE ORDERABLES Fin al Result Performing Organization Address City/[facility]/ZIP Co de Phone Number [facility] [address] [place] [phone] documented in this encounter Visit Diagnoses Diagnosis Stage 3 chronic kidney disease, unspecified whether stage 3a or 3b CKD (CMS/HCC)- Primary documented in this encounter Additional Health Concerns Active Problems Noted Date Diagnosed Date Autogenerated Problem 02/17/2025 Assessment Noted Time A fall risk assessment has been complete d for the patient 03/14/2025 11:51 AM EDT A Body Mass Index follow-up plan has been documented for the patient 02/17/2025 2:45 PM EDT documented as of this encounter Care Teams Manager Talent Relationship Specialty Start Date End Date David Iverson MD PCP - General 06/06/22 Ludin Gonzalez MD [facility] [place] [address] Referring Physician 02/18/25 documented as of this encounter
--- OUTSIDE RECORDS SUMMARY | 2025-03-15 11:30 | XMS_ITS | Encounter Summary ---
Author Organization Healthcare Address [address] [place] [address] Care Team Providers Care Sap Payroll Consultant Name Role Phone David Iverson MD Primary Care Provider [phone] Ludin Gonzalez MD Unavailable [phone] Encounter Details Date Type Department Care Team (Late st Contact Info) Description 03/15/2025 11:30 AM EDT Pre-Admission Testing [facility] [address], [address] [place] [address] Anesthesia Record Procedure Summary Procedure Name Responsible Anesthesiologist Anesthesia Start Time Anesthesia Stop Time CABG, 2 OR MORE VESSELS Nati Aranda MD 03/22/25 0739 03/22/25 1622 Events Date Time Event Comment 03/22/2025 0729 Perfusion Start 0739 An Start The patient was reevaluated immediately before sedation and remains eligible for anesthesia plan. 0741 An Start Data 0741 In Room 0758 ACT Performed 109 0800 An Induction The patient was reevaluated immediately before moderate or deep sedation use and before anesthesia induction. 0803 An Intubation 0829 Anesthesia Ready 0855 Proc Start 0901 Sternotomy 0904 Autotransfusion Start 1054 ACT Performed 599s 1055 An Aortic Cannula 1057 Art Line Pulse/Test 1101 An Venous Cannula 1106 An CV Bypass init 1113 AN Active Cool 1115 Clamp On 1123 Labs 1123 ACT Performed 534s 1140 Cory [place] retracted per surgeon's request. Now 40cm at introducer 1151 Labs 1151 ACT Performed 591s 1157 AN Active Warm Inflow to 32 1223 Labs 1223 ACT Performed 536s 1224 Cory Fully re-warmin g 1253 Labs 1253 ACT Performed 593s 1310 Cory 100 ml cell aashish er to CPB circuit 1324 Clamp Off 1326 ACT Performed 1326 Labs 1354 An CV Bypass Ended 1409 ACT Performed 115s 1542 Autotransfusion Stop 1542 Perfusion Stop 1544 Proc Fin 1600 an stop data 1602 Out of Room 1622 Handoff to Receiving I compl eted my handoff to the receiving clinician during which we: 1. Identified the patient 2. Identified the responsible provider 3. Reviewed the pertinent medical history 4. Discussed the surgical course 5. Reviewed intra-op anesthesia management and issues during anesthesia 6. Set expectations for post-procedure period 7. Allowed opportunity for questions and acknowledgement of understanding. 1622 An Stop Meds * Agents No agents on file. * Blood No blood administrations on file. Lines, Drains, and Airways Type Details Placement Removal Wound 03/22/25; 0855; N; Surgical (incision); Sternum 03/22/25 0855 by Jong Esparza, final assembler boat 03/22/25; 0855; N; Surgical (incision); Pretibial; Proximal, Right 03/22/25 0855 by Jong Esparza, LISSY Peripheral IV Placement Date: 03/22/25; Placement Time: 0635; Orientation: Posterior, Right; Location: Wrist; Site Prep: Chlorhexidine ; Local Anesth: [place]; Technique: Anatomical landmarks; Inserted by: tanya rojas rn; Insertion Attempts: 1; Patient Tolerance: Tolerated well; Removal Date: 03/30/25; Removal Time: 1037; Removal Reason: Discharge 03/22/25 0635 by Beverly Rojas RN 03/30/25 1037 by Gulshan Mendoza RN ETT Placement Date: 03/22/25; Placement Time: 0803 (created via procedure documentation); Mask Ventilation: 2; Technique: Direct laryngoscopy; Type: ETT - single; Single Lumen Tube Size: 8 mm; Cuffed: Yes; Laryngoscope: [place]; Blade Size: 4; Location: Oral; Grade View: Grade I; Insertion Attempts: 1; Placement Verification: Auscultation, Capnometry; Airway Comments: Atraumatic. No change to dentition. ; Placed by: Resident ; Removal Date: 03/22/25; Removal Time: 1809 03/22/25 0803 by Temo Mendoza MD 03/22/25 180 by Muna Jaramillo Urethral Catheter Placement Date: 03/22/25; Placement Time: 08; Type: Non-latex, Temperature probe; Size: 16 Fr.; Balloon Size: 10 mL; Urine Returned: Yes; Removal Date: 03/24/25; Removal Time: 1039 03/22/25 0805 by Jong Esparza RN 03/24/25 1039 by Beverly Alonso RN Arterial Line Placement Date: 03/22/25; Placement Time: 08 (created via procedure documentation); Size: 20 G; Orientation: Right; Location: Radial; Inserted by: Resident; Securement: Sutured; Patient Tolerance: Tolerated well; Removal Date: 03/24/25; Removal Time: 173; Removal Reason: Per order 03/22/25 0847 by Temo Mendoza MD 03/24/25 1730 by Beverly Alonso RN CVC Double Lumen Placement Date: 03/22/25; Placement Time: 08 (created via procedure documentation); Hand Hygiene: Yes; Site Prep: Chlorhexidine ; Site Prep Agent Dried: Yes; Sterile Barrier Used: Yes; Size: 9 Fr; Placement Verification: Blood return, Ultrasound; Removal Date: 03/25/25; Removal Time: 209903/22/25 0856 by Temo Mendoza MD 03/25/25 2100 by Zaida Stearns LPN Introducer Placement Date: 03/22/25; Placement Time: 08 (created via procedure documentation); Hand Hygiene: Yes; Location: Internal jugular; Orientation: Right; Placement Verified by: Pressure tracing changes, CHERYL; Removal Date: 03/23/25; Removal Time: 1415 03/22/25 0856 by Temo Mendoza MD 03/23/25 1415 by Jose Alberto Collins RN Negative Pressure Wound Therapy 03/22/25; 1000; N; Sternum; 03/27/25; 1225; Per order 03/22/25 1000 by Luisa Mike RN 03/27/25 1225 by Malinda Mathis RN Closed/Suction Drain 03/22/25; 1120; No; Inferior, Proximal, Right; Leg; Bulb; 19 Fr. 03/22/25 1120 by Jong Esparza RN 03/25/25 0000 by Camille Espana RN Chest Tube Placement Date: 03/22/25; Placement Time: 1422; Location: Mediastinal; Size: 36 Fr; Drainage System: [place]/nonsuction water seal drainage; Removal Date: 03/24/25; Removal Time: 1330; Removal Reason: (by CVT surgery) 03/22/25 1422 by Jong Esparza RN 03/24/25 1330 by Beverly Alonso RN Y Chest Tube 1 and 2 03/22/25; 1422; Rig ht; Pleural; 24 Fr.; Left; Pleural; 28 Fr.; Other (Comment) (per CVT surgery) 03/22/25 1422 by Jong Esparza RN 03/24/25 1330 by Beverly Alonso RN documented in this encounter Social History Tobacco Use Types Packs/Day Years [...] on file documented as of this encounter Miscellaneous Notes * PAT Evaluation Note - Selene Hyde APRN - 03/15/2025 11:30 AM EDT Images from the original note were not included. HPI Lizandro Sprague is a 45 y.o. male who presents with Pre-op Diagnosis * Coronary artery disease due to calcified coronary lesion [I25.10, I25.84] now scheduled for CABG, 2 OR MORE VESSELS (N/A) with Musa Rosado MD on 03/22/2025 in [facility] [place]. Past Medical History[1] Family History[2] Social History[3] SURGICAL HISTORY: Surgical History[4] Allergies[5] MEDICATIONS: Current Medications[6] ROS Anesthesia: Date of last anesthetic: Never had GA Conscious sedation [facility] 02/2025 history of previous anesthesia. Does not have a history of anesthetic complications and obstructivesleep apnea. Cardiovascular: atrial fibrillation (on Xarelto), CAD and hyperlipidemia. Does not have CHF, dyspnea, dysrhythmias,pacemaker or past [place]. hypertension: is well controlled. Exercise tolerance is 1 flight of stairs. Does not have chest pain. Respiratory: Does not have home oxygen. Patient has no dyspnea.no asthma: no COPD: Has not had an upper respiratory infection in last 30 days. Has not had pneumonia in the last 30 days, RSV in the last 30 days orCOVID in the last 30 days. HEENT: missing teeth.Does not have chipped teeth or loose teeth. Neurological: no seizures: Did not have a cerebrovascular accident. Neuro additional comments: Diabetic neuropathy Gastrointestinal: GERD: well controlled.Does not have cirrhosis. Genitourinary: chronic renal disease: CRI Hematological/Lymphatic: no hemophilia.History of no DVT. History of no pulmonary embolism. Not in a hypercoagulable state. no history of chemotherapy no history of radiation Does not have HIV, MRSA or tuberculosis. Endocrine/Metabolic: diabetes mellitus type 2.poorly controlled. AM glucose 135, last A1c 7.2 Does not have thyroid disorder. gout. OSH stress test OSH [facility] 02/2025 OSH labs 03/2025 Glucose 147. Na 140, K 4.7, GFR 51, BUN 27, Cr 1.5, AST 24, ALT 27 Lab Results Component Value Date WBC 8.03 02/17/2025 HGB 15.3 02/17/2025 HCT 45.7 02/17/2025 MCV 89 02/17/2025 PLT 217 02/17/2025 Lab Results Component Value Date GLUCOSE 196 (H) 02/17/2025 BUN 24 (H) 02/17/2025 CREATININE 1.46 (H) 02/17/2025 BCR 16 02/17/2025 NA 136 02/17/2025 K 4.1 02/17/2025 CL 100 02/17/2025 CO2 25 02/17/2025 ALBUMIN 4.6 02/17/2025 ALKPHOS 45 02/17/2025 BILITOT 0.6 02/17/2025 Lab Results Component Value Date HGBA1C 7.2 (H) 02/17/2025 Lab Results Component Value Date INR 1.1 02/17/2025 Visit Vitals Smoking Status Never 03/14/2025 11:45 AM Vitals Systolic 101 Diastolic 63 Heart Rate 63 Temp 36.9 C Resp 16 Height (cm) 182.9 cm Weight (kg) 103.874 kg BMI 31.06 kg/m2 BSA (m2) 2.3 m2 Visit Report Report Physical Exam Anesthesia Plan ASA 4 Anesthesia technique(s) discussed with the patient/family: general Comment: LISA phone screen. Spoke with Ekta Costa RN about patient's blood thinners Selene Obando APRN [1] Past Medical History: Diagnosis Date Chronic kidney disease Coronary artery disease GERD (gastroesophageal reflux disease) Hyperlipidemia Hypertension Type 2 diabetes mellitus [2] Family History Problem Relation Name Age of Onset Hypertension Mother Diabetes type II Mother Diabetes Mother Stroke Mother Cancer Father Lung cancer Father Anesthesia problems Neg Hx Malig Hyperthermia Neg Hx [3] Social History Tobacco Use Smoking status: Never Passive exposure: Never Smokeless tobacco: Never Vaping Use Vaping status: Never Used Substance Use Topics Alcohol use: Never Drug use: Never [4] Past Surgical History: Procedure Laterality Date CARDIAC CATHETERIZATION 02/16/2025 [5] No Known Allergies [6] Current Outpatient Medications: allopurinol, Take by mouth 1 (one) time each day. atorvastatin, Take by mouth 1 (one) time each day. fenofibrate, Take 1 tablet by mouth daily. gabapentin, Take 1 capsule by mouth 2 times a day. hydroCHLOROthiazide, Take by mouth 1 (one) time each day. Insulin Aspart (NOVOLOG FLEXPEN SC), Inject 30 Units under the skin 3 (three) times a day before meals. Jardiance, Take 1 tablet by mouth daily. Kerendia, Take by mouth daily. Lantus SoloStar, lisinopril, Take 1 tablet by mouth daily. nebivolol, Take 1 tablet (10 mg) by mouth 1 (one) time each day. (Patient taking differently: Take 0.5 tablets by mouth daily. Hold for HR < 60) omeprazole, Take by mouth 1 (one) time each day. traMADol, Take by mouth every 6 hours. Xarelto, TAKE 1 TABLET BY MOUTH EVERY EVENING WITH EVENING MEAL aspirin, Take 1 tablet (81 mg) by mouth 1 (one) time each day. (Patient not taking: Reported on 03/14/2025) dilTIAZem CD, Take 1 capsule (180 mg) by mouth 1 (one) time each day. (Patient taking differently: Take 120 mg by mouth daily.) Easy Touch Pen [place], nitroglycerin, DISSOLVE 1 TABLET UNDER THE TONGUE EVERY 5 MINUTES NEEDED FOR CHEST PAIN. DO NOT EXCEED A TOTAL OF 3 DOSES IN 15 MINUTES. IF NO RELIEF CALL 911. NovoLOG FLEXPEN, sildenafil, Take 1 tablet by mouth as needed. * Preprocedure Instructions - Selene Hyde APRN - 03/15/2025 11:30 AM EDT Home Medication Instructions Current Medications Medication Instructions allopurinol (Zyloprim) 300 MG tablet Take morning of surgery * Aspirin 81 mg Start taking once daily when Xarelto is stopped per surgeon atorvastatin (Lipitor) 40 MG tablet Take night before surgery fenofibrate (Tricor) 145 MG tablet Take morning of surgery gabapentin (Neurontin) 300 MG capsule Take morning of surgery hydroCHLOROthiazide (HYDRODiuril) 25 MG tablet Hold day of surgery Insulin Aspart (NOVOLOG FLEXPEN SC) Hold day of surgery Jardiance 25 MG Last dose 03/18 per surgeon Kerendia 10 MG tablet Take morning of surgery Lantus SoloStar 100 UNIT/ML injection pen Take 1/2 usual dose of your insulin night before surgery lisinopril 20 MG tablet Last dose 03/19 per surgeon nebivolol (Bystolic) 10 MG tablet Take morning of surgery omeprazole (PriLOSEC) [address] capsule Take night before surgery traMADol (Ultram) 50 MG tablet Take morning of surgery Xarelto 20 MG tablet Hold 4 days before surgery per surgeon General Preoperative Instructions You will be called the business day before surgery with your arrival time No food after midnight the night before surgery. You can drink clear liquids up to 2 hours prior to arrival. Please do not try to get all your hydration in 2 hours prior to arrival. Start the day before surgery drinking more than you usually would.After midnight, you can have clear liquids only (water, apple juice, Gatorade) up to 2 hours prior to arrival. No coffee or tea. No alcohol or smoking prior to surgery Arrive on time to avoid delays Parking/Registration procedure explained You MUST have a responsible adult available for transport to and from hospital Visitation policy for the day of surgery reviewed Bring insurance card, photo ID, along with power of estate planning attorney, guardianship or advanced directives if applicable Do not bring money, jewelry or other valuables Hibiclens bathing instructions reviewed if applicable Notify surgeon of fever, illness, any changes or if you decide not to have surgery Diabetes Instructions (If applicable) Take diabetes medication as instructed You may have up to 4 ounces of apple juice 2 hours prior to arrival for surgery for low glucose documented in this encounter Plan of Treatment Upcoming Encounters Date Type Department Care Team (Late st Contact Info) Description 04/14/2025 3:40 PM EDT Office Visit [facility] [address], [address] [place] [address] Musa Rosado MD [address] [facility] [address] [place] [id number] 06/13/2025 11:40 AM EDT Office Visit [email or web address] [place] [facility] [address], [address] [place] [address] Sonia Medley MD [address] [place] [address] documented as of this encounter Goals Goal Patient Goal Type Associated Problems Recent Progress Patient-Stated? 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 Syed APRN documented as of this encounter Visit Diagnoses Not on filedocumented in this encounter Additional Health Concerns Active Problems Noted Date Diagnosed Date Autogenerated Problem 02/17/2025 Assessment Noted Time A fall risk assessment has been complete d for the patient 03/14/2025 11:51 AM EDT A Body Mass Index follow-up plan has been documented for the patient 02/17/2025 2:45 PM EDT documented as of this encounter Care Teams Sap Payroll Consultant Relationship Specialty Start Date End Date David Iverson MD PCP - General 06/06/22 Ludin Gonzalez MD [address] [place] [address] Referring Physician 02/18/25 documented as of this encounter
--- OUTSIDE RECORDS SUMMARY | 2025-03-21 13:00 | XMS_ITS | Encounter Summary ---
Author Organization Healthcare Address [address] [place] [address] Care Team Providers Care Meat Counter Clerk Name Role Phone David Iverson MD Primary Care Provider [phone] Ludin Gonzalez MD Unavailable [phone] Reason for Visit * Auth/Cert (Routine) Specialty Diagnoses / Procedures Referred By Contac t Referred To Contact Diagnoses Coronary artery disease due to calcified coronary lesion Coronary artery disease due to calcified coronary lesion [I25.10, I25.84] Procedures [place] CABG, VEIN, THREE CABG, 2 OR MORE VESSELS Musa Rosado MD [address] [address] Phone: tel: fax: [facility] A OPERATING ROOM [address] [place] [address] Phone: tel: Referral ID Status Reason Start Date Expiration Date Visits Re quested Visits Authorized [id number] 1 1 Encounter Details Date Type Department Care Team (Late st Contact Info) Description 03/21/2025 1:00 PM EDT Office Visit [facility] Cardi[facility] [address], [address] [place] [address] Musa Rosado MD [address] [address] Coronary artery disease involving comanche heart without angina pectoris, unspecified vessel or lesion type (Primary Dx); Type 2 diabetes mellitus with stage 2 chronic kidney disease, with long-term current use of insulin ([facility]); CKD (chronic kidney disease) stage 2, GFR [...] Notes * Progress Notes - Zulay Syed, FOOD SERVICE - 03/21/2025 1:00 PM EDT Reason for visit / Chief Complaint: Pre-op visit for coronary revascularization scheduled for 03/22/2025 History of present illness: Lizandro Sprague is a 45 y.o. male with recent medical history HTN, HLD, DM2 with neuropathy, CKD 3, and GERD referred to us in consultation by Dr. Gonzalez in regards to recent [facility] with results indicating multi-vessel coronary artery [...] kidney disease, with long-term current use of insulin([facility]) 01/14/2022 Medical History: Past Medical History Pertinent [...] Yes Chavez Lambert MD Easy Touch Pen [place] 31G X 8 MM misc 04/18/23 Yes [...] taking: Reported on 03/21/2025 Chavez Lambert MD Lantus SoloStar 100 UNIT/ML [...] first diagonal artery and large first septal binder coverstitch. There is additional 30% distal stenosis. The [...] Office Visit [facility] Cardiothoracic [address], [address] [place] [address] Musa Rosado MD [address] [facility] [address] [place] [address] 06/13/2025 11:40 AM EDT Office Visit [facility] Nephrology, Bone & Mineral Metabolism [address], [address] [place] [address] Sonia Medley MD [address] [place] [address] documented as of this encounter Goals Goal Patient Goal Type Associated Problems Recent Progress Patient-Stated? 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 Syed APRN documented as of this encounter Visit Diagnoses Diagnosis Coronary artery disease involving comanche heart without angina pectoris, unspecified vessel or lesion type- Primary Type 2 diabetes mellitus with stage 2 chronic kidney disease, with long-term current use of insulin ([facility]) CKD (chronic kidney disease) stage 2, GFR [...] documented as of this encounter Care Teams Meat Counter Clerk Relationship Specialty Start Date End Date David Iverson MD PCP - General 06/06/22 Ludin Gonzalez MD [address] [place] [address] Referring Physician 02/18/25 documented as of this encounter
--- OUTSIDE RECORDS SUMMARY | 2025-03-21 13:23 | XMS_ITS | Encounter Summary ---
Author Organization Healthcare Address [address] [place] [address] Care Team Providers Care Instructional Technology Specialist Name Role Phone David Iverson MD Primary Care Provider [phone] Ludin Gonzalez MD Unavailable [phone] Reason for Visit * Auth/Cert (Routine) Specialty Diagnoses / Procedures Referred By Contac t Referred To Contact Diagnoses Coronary artery disease due to calcified coronary lesion Coronary artery disease due to calcified coronary lesion [I25.10, I25.84] Procedures NC CABG, VEIN, THREE CABG, 2 OR MORE VESSELS Musa Rosado MD [address] [facility] [address] [place] [address] Phone: tel: fax: [facility] A OPERATING ROOM [address] [place] [address] Phone: tel: Referral ID Status Reason Start Date Expiration Date Visits Re quested Visits Authorized [id number] 1 1 Encounter Details Date Type Department Care Team (Latest Contact Info) Description 03/21/2025 1:23 PM EDT - 03/21/2025 11:59 PM EDT [facility] [address] [place] [address] Coronary artery disease due to calcified coronary lesion Discharge Disposition: Home or Self Care Social History Tobacco Use Types Packs/Day Years Used Date Smoking Tobacco: Never Passive Smoke Exposure: Never Smokeless Tobacco: Never Alcohol Use Standard Drinks/Week Comments Never 0 (1 standard drink = 0.6 oz pur e alcohol) PHQ-2 Answer Date Recorded Patient Health Questionnaire-2 Score 0 04/23/2023 Humiliation, Afraid, Rape, and Kick questionnair e Answer Date Recorded Within the last year, have y ou been afraid of your partner or ex-partner? No 03/23/2025 Within the last year, have y ou been humiliated or emotionally abused in other ways by your partner or ex-partner? No Within the last year, have y ou been kicked, hit, slapped, or otherwise physically hurt by your partner or ex-partner? No 03/23/2025 Within the last year, have y ou been raped or forced to have any kind of sexual activity by your partner or ex-partner? No 03/23/2025 AUDIT-C Answer Date Recorded Q1: How often do you have a drink containing alcohol? Never 03/21/2025 Q2: How many drinks containi ng alcohol do you have on a typical day when you are drinking? Patient does not drink Q3: How often do you have si x or more drinks on one occasion? Never 03/21/2025 Hunger Vital Sign Answer Date Recorded Within the past 12 months, y ou worried that your food would run out before you got the money to buy more. Never true 03/23/20 25 Within the past 12 months, t he food you bought just didn't last and you didn't have money to get more. Never true 03/23/2025 PRAPARE - Transportation Answer Date Re corded In the past 12 months, has l ack of transportation kept you from medical appointments or from getting medications? No 03/06 In the past 12 months, has l ack of transportation kept you from meetings, work, or from getting things needed for daily living? No 03/23/2025 Housing Stability Vital Sign Answer Rober e Recorded In the last 12 months, was t here a time when you were not able to pay the mortgage or rent on time? No 03/23/2025 Number of Times Moved in the Last Year Not on fi le 03/23/2025 At any time in the past 12 m [facility], were you homeless or living in a [facility] (including now)? No 03/23/2025 Utilities Answer Date Recorded In the past 12 months has th e electric, [employer], oil, or water [employer] threatened to shut off services in your home? No 03/23/2025 PHQ-2A Answer Date Recorded Depression Risk 0 03/21/2025 Sex and Gender Information Value Date Recorded Sex Assigned at Not on file Legal Sex Male 8:07 PM EDT Gender Identity Not on file Sexual Orientation Not on file documented as of this encounter Functional Status * AUDIT-C Score [...] Never 03/21/2025 12:53 PM EDT Corina Corrales * Calculated C-SSRS Risk Score (Lifetime/Recent) Answer Date of Assessment Author No Risk Indicated 03/27/2025 8:00 PM EDT Александр Roca RN * Question Answer Date of Assessment Author 1. Wish to be (Past 1 Month) No 025 8:00 PM JARADT Afshan Roca RN 2. Non-Specific Active Suici beverley Thoughts (Past 1 Month) No 03/27/2025 8:00 PM EDT Cait Roca RN 6. Suicidal Behavior (Lifetime) No 8:00 PM JARADT Afshan Roca RN documented as of this encounter Medications at Time of Discharge acetaminophen (Tylenol) 500 MG tablet Take 2 tablets by mouth every 6 hours as needed for pain. 100 tablet 03/30/2025 allopurinol (Zyloprim) 300 MG tablet Take by mouth 1 (one) time each day. aspirin 81 MG EC tablet Take 1 tablet by mouth daily. atorvastatin (Lipitor) 80 MG tablet Take 1 tablet by mouth nightly. 30 tablet 03/30/2025 docusate sodium 100 MG capsule Take 100 mg by mouth 2 times a day for 10 days. Hold for loose stool 20 capsule 03/30/2025 fenofibrate (Tricor) 145 MG tablet Take 1 tablet by mouth daily. 11/29/2022 furosemide (Lasix) 40 MG tablet Take 1 tablet by mouth daily for 3 days. 3 tablet 03/31/2025 gabapentin (Neurontin) 300 MG capsule Take 1 capsule by mouth 2 times a day. Kerendia 10 MG tablet Take 10 mg by mouth daily. 04/09/2023 Lantus SoloStar 100 UNIT/ML injection pen Inject 28 Units under the skin nightly. 03/30/2025 methocarbamol (Robaxin) 500 MG tablet Take 2 tablets by mouth 4 times a day for 10 days. 80 tablet 03/30/2025 metoprolol tartrate (Lopressor) 25 MG tablet Take 0.5 tablets by mouth 2 times a day. 30 tablet 3 03/30/2025 naloxone (Narcan) 4 mg/0.1 mL nasal spray 1. Give 1 spray in nostril for no/slow breathing or cannot wake after opioid use 2. Call 911 3. Repeat in other nostril if symptoms continue 1 each 03/30/2025 nitroglycerin (Nitrostat) 0.4 MG SL tablet DISSOLVE 1 TABLET UNDER THE TONGUE EVERY 5 MINUTES NEEDED FOR CHEST PAIN. DO NOT EXCEED A TOTAL OF 3 DOSES IN 15 MINUTES. IF NO RELIEF CALL 911. 02/23/2025 NovoLOG FLEXPEN 100 UNIT/ML injection pen Inject 6 Units under the skin 3 times a day with meals. Correction 1:50 >150 03/30/2025 omeprazole (PriLOSEC) [address] capsule Take 1 capsule by mouth daily. senna (Senokot) 8.6 MG tablet Take 2 tablets by mouth daily for 10 days. Hold for loose stools. 20 tablet 03/30/2025 traMADol (Ultram) 50 MG tablet Take by mouth every 6 hours. oxyCODONE (Roxicodone) 10 MG immediate release tablet Take 1 tablet by mouth every 4 hours as needed for severe pain (For pain unrelieved by other interventions) for up to 3 days. 18 tablet 03/30/2025 5 allopurinol (Zyloprim) 300 MG tablet Take 1 tablet by mouth daily. 30 tablet 03/31/2025 5 aspirin 81 MG chewable tablet Chew 1 tablet daily. 30 tablet 03/31/2025 5 atorvastatin (Lipitor) 40 MG tablet Take by mouth 1 (one) time each day. 5 dilTIAZem CD (Cardizem CD) 120 MG 24 hr capsule Take 1 capsule by mouth daily. 08/25/2024 5 Easy Touch Pen [place] 31G X 8 MM misc 04/18/2023 5 hydroCHLOROthiaz marcus (HYDRODiuril) 25 MG tablet Take 1 tablet by mouth daily. 5 Insulin Aspart (NOVOLOG FLEXPEN SC) Inject 30 Units under the skin 3 (three) times a day before meals. 5 Jardiance 25 MG Take 1 tablet by mouth daily. 04/16/2023 5 Lantus SoloStar 100 UNIT/ML injection pen Inject 3-5 Units under the skin at night as needed. 04/21/2023 5 lisinopril 20 MG tablet Take 1 tablet by mouth daily. 05/16/2023 5 nebivolol (Bystolic) 5 MG tablet Take 1 tablet by mouth daily. 5 NovoLOG FLEXPEN 100 UNIT/ML injection pen 04/18/2023 5 sildenafil (Viagra) 100 MG tablet Take 1 tablet by mouth as needed for erectile dysfunction. 03/31/2023 5 Xarelto 20 MG tablet TAKE 1 TABLET BY MOUTH EVERY EVENING WITH EVENING MEAL 02/23/2025 5 documented as of this encounter Plan of Treatment Upcoming Encounters Date Type Department Care Team (Late st Contact Info) Description 04/14/2025 3:40 PM EDT [facility] [address], [address] [place] [address] Musa Rosado MD [address] [place] [address] 06/13/2025 11:40 AM EDT Office Visit [facility] Nephrology, Bone & Mineral Metabolism [address], [address] [place] [address] Sonia Medley MD [address] [place] [address] documented as of this encounter Goals Goal Patient Goal Type Associated Problems Recent Progress Patient-Stated? Author Autogenerat ed Goal Care Plan Autogenerated Problem No SyedZulay, SPIRITUAL COUNSELOR documented as of this encounter Procedures Procedure Name Priority Date/Time Associated Diagnosis Comments XR CHEST 2 VIEWS Routine 03/21/2025 1:29 PM EDT Coronary artery disease due to calcified coronary lesion documented in this encounter Results * XR Chest 2 [...] signing this report, I, the attending physician, ansonat I have personally reviewed the images/data for the aboveexamination(s) and agree with the final edited report. Drafted by Jenn Perea MD on 03/21/2025 2:43 PM Final report signed by Musa Cole MD on 03/21/2025 2:58 PM Zulay Syed SPIRITUAL COUNSELOR IMG XR PROCEDURES Final Resu lt documented in this encounter Visit Diagnoses Diagnosis [...] documented as of this encounter Care Teams Instructional Technology Specialist Relationship Specialty Start Date End Date David Iverson MD PCP - General 06/06/22 Ludin Gonzalez MD [address] [place] [address] Referring Physician 02/18/25 documented as of this encounter
--- OUTSIDE RECORDS SUMMARY | 2025-03-22 05:35 | XMS_ITS | Encounter Summary ---
Author Organization Healthcare Address [address] [id number] Care Team Providers Care Shaft Mechanic Name Role Phone David Iverson MD Primary Care Provider [phone] Ludin Gonzalez MD Unavailable [phone] Reason for Referral * Consultation (Routine) - Authorized Specialty Diagnoses / Procedures Referred By Contac t Referred To Contact Cardiac Rehabilitation Diagnoses S/P CABG x 4 Musa Rosado MD [address] [address] Phone: tel: fax: Referral ID Status Reason Start Date Expiration Date V isits Requested Visits Authorized [id number] Authorized 04/05/2025 10/05/2026 1 1 * Consultation (Routine) - Authorized Specialty Diagnoses / Procedures Referred By Contac t Referred To Contact Cardiac Rehabilitation Diagnoses CAD, multiple vessel Musa Rosado MD [address] [address] Phone: tel: fax: [facility] [address], [address] [place] [address] Phone: tel: fax: Referral ID Status Reason Start Date Expiration Date V isits Requested Visits Authorized [id number] Authorized 03/22/2025 09/21/2026 1 1 Reason for Visit * Auth/Cert (Routine) Specialty Diagnoses / Procedures Referred By Jody t Referred To Contact Diagnoses Coronary artery disease due to calcified coronary lesion Coronary artery disease due to calcified coronary lesion [I25.10, I25.84] Procedures MT CABG, VEIN, THREE CABG, 2 OR MORE VESSELS Musa Rosado MD [address] [address] Phone: tel: fax: [facility] [address] [place] [address] Phone: tel: Referral ID Status Reason Start Date Expiration Date Visits Re quested Visits Authorized [id number] 1 1 Encounter Details Date Type Department Care Team (Latest Contact Info) Description 03/22/2025 5:35 AM EDT - 03/30/2025 11:38 AM EDT Hospital Encounter [facility] [address] [place] [address] Musa Rosado MD [address] [address] CAD, multiple vessel (Primary Dx); [...] any time in the past [address] [facility], were you homeless or living in a usp (including now)? No 03/23/2025 Utilities Answer Date Recorded In the past 12 months has th e [employer], gas, oil, or water company threatened to [...] Note Lizandro Gr 45 y.o. male CSN: [id number] Admission: 03/22/2025 5:35 AM Primary Problem: CAD (coronary artery disease) Primary Philosophy Lecturer: Primary Caregiver: Self Assistance Available at Discharge: Availability of Care Givers (#Hours): Other (comment) (as needed) Family/Philosophy Lecturer(s) Willingness Assessed to care for patient at home: Yes Family/Philosophy Lecturer(s) Readiness Assessed to care for patient at [...] Second Notice Recieved By: Pt's s/o Follow-up: [facility] [address], [address] [facility] [address] Raya Woods APRN [facility] [address] Go on 05/25/2025 Your appointment time is [...] this date and does not require further [facility]-based care. SW met with pt's [...] from the original note were not included. [id number] Insulin Aspart (rDNA Origin) Injection Brand Name(s): [...] buy an insulin pen separately. Check the prepress operator's information for the patient to see what [...] be sure to read and understand the prepress operator's instructions. If you are blind or have [...] or doctor for a copy of the prepress operator's information for the patient. Are there OTHER [...] medications. Ask your pharmacist or check the prepress operator's patient information for a list of the [...] of all of the prescription and nonprescription (irek-gij-gtuqbgo) medicines, vitamins, minerals, and dietary supplements you [...] or pharmacist about specific clinical use. The [place] [employer] represents that the information provided hereunder was formulated with a reasonable standard of care, and in conformity with professional standards in the field. The [place] [employer] makes no representations or warranties, express or implied, including, but not limited to, any implied warranty of merchantability and/or fitness for a particular purpose, with respect to such information and specifically disclaims all such warranties. Users are advised that decisions regarding drug therapy are complex medical decisions requiring the independent, informed decision of an appropriate health healthcare facility administrator, and the information is provided for informational purposes only. The entire monograph for a drug should be reviewed for a thorough understanding of the drug's actions, uses and side effects. The [place] does not endorse or recommend the use of any drug.The information is not a substitute for medical care. [facility]?? Patient Medication Information?. ?? Copyright, 2023. The [employer]??, [address], [place], [place]. All Rights Reserved. Duplication for commercial use must be authorized by [facility]. Selected Revisions: May 20, 2023. AHFS?? Patient Medication Information?. ?? Copyright, 2024 * Jh Horton - Mikayla Leung - 03/30/2025 10:52 AM EDT 1087 Oxycodone Oral Tablet, Immediate Release Brand Names: Oxaydo, Roxicodone What is this medicine? Oxycodone (su-a-MMG-done) is an opioid pain reliever. It is used to treat moderate to severe pain. What should I tell my health care provider before I take this medicine? They need to know if you have any of these conditions: ? Patterson's disease ? Brain tumor or head injury [...] a special medication guide each time you order picker/assembler this medicine. ? Overdosage: Taking too much [...] report to your doctor or health healthcare facility administrator as soon as possible: ? allergic reactions [...] (report to your doctor or health healthcare facility administrator if they continue or are bothersome): ? constipation ? dry mouth ? itching ? nausea, vomiting ? upset stomach This list may not describe all possible side effects. Call your doctor for medical advice about side effects. You may report side effects to FDA at 5-029-HNG-5568. Where should I keep my medicine? This [...] location. To find a disposal location, visit [facility]. If you cannot take unused medicine to [...] from the original note were not included. [id number] Senna Brand Name(s): Black iNdia??, Ex-Lax??, Nelson's Castoria??, Nature's Remedy??, Perdiem Overnight [...] directions on your package or prescription label [facility], and ask your doctor or pharmacist [...] and out of their sight and reach. [email or web address] Dispose of unneeded medications in a way [...] of all of the prescription and nonprescription (ekqa-tjz-wxydgpx) medicines, vitamins, minerals, and dietary supplements you [...] or pharmacist about specific clinical use. The [place] [employer] represents that the information provided hereunder was formulated with a reasonable standard of care, and in conformity with professional standards in the field. The [place] [employer] makes no representations or warranties, express or implied, including, but not limited to, any implied warranty of merchantability and/or fitness for a particular purpose, with respect to such information and specifically disclaims all such warranties. Users are advised that decisions regarding drug therapy are complex medical decisions requiring the independent, informed decision of an appropriate health healthcare facility administrator, and the information is provided for informational purposes only. The entire monograph for a drug should be reviewed for a thorough understanding of the drug's actions, uses and side effects. The [place] [employer] does not endorse or recommend the use of any drug.The information is not a substitute for medical care. AHFS?? Patient Medication Information?. ?? Copyright, 2023. The [employer]??, [address], [address], [place], [place]. All Rights Reserved. Duplication for commercial use must be authorized by [facility]. Selected Revisions: March 25, 2024. AHFS?? Patient Medication Information?. ?? Copyright, 2024 * Jh Horton - Mikayla Leung - 03/30/2025 10:51 AM EDT Images from the original note were not included. 798 Narcan Nasal [place]: Rescue Guide for Opioid Overdose Step 1 [...] the video go to this web address: [email or web address] Or, scan this QR code with your smart phone ?? [facility] * Mikayla Cortez - 03/30/2025 10:51 AM EDT Images from the original note were not included. [id number] Methocarbamol Brand Name(s): Robaxin??; also available generically [...] of all of the prescription and nonprescription (rgsb-itt-ytfnwwq) medicines, vitamins, minerals, and dietary supplements you [...] or pharmacist about specific clinical use. The [place] [employer] represents that the information provided hereunder was formulated with a reasonable standard of care, and in conformity with professional standards in the field. The [place] [employer] makes no representations or warranties, express or implied, including, but not limited to, any implied warranty of merchantability and/or fitness for a particular purpose, with respect to such information and specifically disclaims all such warranties. Users are advised that decisions regarding drug therapy are complex medical decisions requiring the independent, informed decision of an appropriate health healthcare facility administrator, and the information is provided for informational purposes only. The entire monograph for a drug should be reviewed for a thorough understanding of the drug's actions, uses and side effects. The [place] [employer] does not endorse or recommend the use of any drug.The information is not a substitute for medical care. AHFS?? Patient Medication Information?. ?? Copyright, 2023. The [place]??, [address], [address], [place], [place]. All Rights Reserved. Duplication for commercial use must be authorized by [facility]. Selected Revisions: May 20, 2017. AHFS?? Patient Medication Information?. ?? Copyright, 2024 * J[facility] ArmstrongFORMERLY [facility] - Mikayla Leung - 03/30/2025 10:50 AM EDT Images from the original note were not included. [id number] Furosemide Brand Name(s): Lasix??; also available generically [...] and out of their sight and reach. [email or web address] Dispose of unneeded medications in a way [...] of all of the prescription and nonprescription (yboq-ncg-eqqfzye) medicines vitamins, minerals, and dietary supplements you [...] or pharmacist about specific clinical use. The [place] [employer] represents that the information provided hereunder was formulated with a reasonable standard of care, and in conformity with professional standards in the field. The [place] [employer] makes no representations or warranties, express or implied, including, but not limited to, any implied warranty of merchantability and/or fitness for a particular purpose, with respect to such information and specifically disclaims all such warranties. Users are advised that decisions regarding drug therapy are complex medical decisions requiring the independent, informed decision of an appropriate health healthcare facility administrator, and the information is provided for informational purposes only. The entire monograph for a drug should be reviewed for a thorough understanding of the drug's actions, uses and side effects. The [place] [employer] does not endorse or recommend the use of any drug.The information is not a substitute for medical care. AHFS?? Patient Medication Information?. ?? Copyright, 2023. The [employer]??, [address], [address], [place], [place]. All Rights Reserved. Duplication for commercial use must be authorized by [facility]. Selected Revisions: January 18, 2025. AHFS?? Patient Medication Information?. ?? Copyright, 2024 * Jh DamonRADHA - Mikayla Leung - 03/30/2025 10:50 AM EDT Images from the original note were not included. [id number] Stool Softeners Brand Name(s): Colace??, Correctol Soft [...] of all of the prescription and nonprescription (iwsp-kdk-quvnndt) medicines, vitamins, minerals, and dietary supplements you [...] or pharmacist about specific clinical use. The [place] [employer] represents that the information provided hereunder was formulated with a reasonable standard of care, and in conformity with professional standards in the field. The [place] [employer] makes no representations or warranties, express or implied, including, but not limited to, any implied warranty of merchantability and/or fitness for a particular purpose, with respect to such information and specifically disclaims all such warranties. Users are advised that decisions regarding drug therapy are complex medical decisions requiring the independent, informed decision of an appropriate health healthcare facility administrator, and the information is provided for informational purposes only. The entire monograph for a drug should be reviewed for a thorough understanding of the drug's actions, uses and side effects. The [place] [employer] does not endorse or recommend the use of any drug.The information is not a substitute for medical care. AHFS?? Patient Medication Information?. ?? Copyright, 2023. The [employer]??, [address], [address], [place], [place]. All Rights Reserved. Duplication for commercial use must be authorized by [facility]. Selected Revisions: March 25, 2024. AHFS?? Patient Medication Information?. ?? Copyright, 2024 * Zinakale DamonRADHA - Mikayla Leung - 03/30/2025 10:50 AM EDT Images from the original note were not included. [id number] Acetaminophen Brand Name(s): Actamin??, Feverall??, Panadol??, Tempra Quicklets??, Tylenol??, Dayquil?? (as a combination product containing Acetaminophen, Dextromethorphan, Pseudoephedrine), NyQuil Cold/Flu Relief?? (as a combination product containing Acetaminophen, Dextromethorphan, Doxylamine), Percocet?? (as a combination product containing Acetaminophen, Oxycodone) APAP, N-gzdsfp-abgx-aminophenol, Paracetamol ?? This branded product is no [...] measuring cup or syringe provided by the prepress operator to measure each dose of the solution [...] and out of their sight and reach. [email or web address] Unneeded medications should be disposed of in [...] be awakened, immediately call emergency services at [phone]. If someone takes more than the recommended [...] of all of the prescription and nonprescription (cqhb-wph-azegzgi) medicines you are taking, as well as [...] or pharmacist about specific clinical use. The [place] [employer] represents that the information provided hereunder was formulated with a reasonable standard of care, and in conformity with professional standards in the field. The [place] [employer] makes no representations or warranties, express or implied, including, but not limited to, any implied warranty of merchantability and/or fitness for a particular purpose, with respect to such information and specifically disclaims all such warranties. Users are advised that decisions regarding drug therapy are complex medical decisions requiring the independent, informed decision of an appropriate health healthcare facility administrator, and the information is provided for informational purposes only. The entire monograph for a drug should be reviewed for a thorough understanding of the drug's actions, uses and side effects. The [place] [employer] does not endorse or recommend the use of any drug.The information is not a substitute for medical care. AHFS?? Patient Medication Information?. ?? Copyright, 2023. The [employer]??, [address], [address], [place], [place]. All Rights Reserved. Duplication for commercial use must be authorized by [facility]. Selected Revisions: June 20, 2023. AHFS?? Patient Medication Information?. ?? Copyright, 2024 * Discharge Summary - Lian Dobbs APRN - 03/30/2025 10:04 AM EDT Images from the original note were not included. Hospitalization Admit Date/Time: 03/22/2025 5:35 AM Admitting Attending: Musa Rosado Discharge Date: 03/30/2025 Discharge Attending Physician: Musa Rosado MD PCP name and Address: David Iverson MD [address] [place] [address] Referring provider name and address: No referring [...] Your Medications These medications were sent to [facility] - [place], [place] - [address] [facility] [address] acetaminophen 500 MG tablet allopurinol 300 MG [...] Sternotomy, coronary artery bypass grafting, endoscopic vein tbyyxce-nmrzc-fguiwyb saphenous. Vein the ascending aorta the 1st [...] Center 04/14/2025 3:40 PM Musa Rosado MD [facility] 06/13/2025 11:40 AM Sonia Medley MD [facility] PAC Test Results Pending At Discharge Pending [...] present and normoactive x 4 quadrants SKIN: [place], warm, and dry. No rash, sores, or [...] CKD, HLD, T2DM, Afib presented to [facility] for CABG on 03/22. Endocrine Diabetes [...] with patient, family member, primary team, bedside bottle dealer planning -Diabetes education: not needed -Follow-up plan: [...] via secure chat or page us at [phone] during -7p, Friday-Friday. For after hours please [...] region Almost nothing after interventions Delirium Screening [place] Agitation Sedation Scale (RASS): Alert and calm Confusion Assessment Method-ICU (CAM-ICU/PCAM-ICU) Feature 3: Altered Level of Consciousness: Negative Therapeutic Activity (15 minutes) PT provided instruction for gentle back stretch by leaning forward onto elbows on table, encouragedperiodic stretching, use of heat packs to reduce pain. Transfers Transfer Exam: Sit to stand Level of [place]: Stand-by assist Physical/Nonphysical Assist: Supervision Assistive Device: Hand held assist Transfer Exam: Stand to Sit Level of [place]: Stand-by assist Physical/Nonphysical Assist: Supervision Assistive Device: [...] at 1:30 PM. * Progress Notes - Vrii Escalona - 03/29/2025 9:04 AM EDT Occupational [...] CKD, HLD, T2DM, Afib presented to [facility] for CABG on 03/22. Endocrine Diabetes [...] via secure chat or page us at [phone] during 7a-7p, Friday-Friday. For after hours please [...] Sternotomy, coronary artery bypass grafting, endoscopic vein qktzekk-sactm-sayzkeg saphenous. Vein the ascending aorta the 1st [...] plan for DC home tomorrow. Cardiothoracic Surgery [phone] [1] acetaminophen, 1,000 mg, Oral, q6h [facility] allopurinol, 300 mg, Oral, Daily aspirin, 81 mg, Oral, Daily atorvastatin, 80 mg, Oral, Nightly docusate sodium, 100 mg, Oral, BID fenofibrate, 145 mg, Oral, Daily furosemide, 40 mg, Oral, Daily gabapentin, 300 mg, Oral, BID heparin (porcine), 5,000 Units, Subcutaneous, q8h [facility] insulin glargine-yfgn, 30 Units, Subcutaneous, Nightly [...] Note Lizandro Gr 45 y.o. male CSN: [id number] Room/Bed 119/119A Nutrition evaluation type: follow-up Reason [...] 31.03 Weight Evaluation: Obese-Class 1 (BMI 30-34.9) [place] Body Weight (kg): 80.9 Percent [place] Body Weight: 128 Adjusted Body Weight (kg): 86.9 Estimated Needs: Kcal/ K-25 Kcal Provided: Metabolic Cart Study Results: Current Nutrition Intake: Diet Supplements: Impact AR Diet Order: Adult Diet Diet Texture: Regular Adult Carbohydrate Restriction: Consistent CHO 2 ([id number] Alex, 80 g/meal) Adult Sodium Restriction: No added salt Percent Meals Eaten (%): 50-100% x 5 days Diet Experience and Nutrition History: Diet Education Provided: Will monitor Pertinent home medications: Amish needs: Nutrition Focused Physical Exam: Unable to [...] Sternotomy, coronary artery bypass grafting, endoscopic vein wndtzdu-cvlqd-kkgiouj saphenous. Vein the ascending aorta the 1st [...] Wean pain medication as tolerated. Cardiothoracic Surgery [phone] [1] acetaminophen, 1,000 mg, Oral, q6h VIOLETTE [...] Note Lizandro Gr 45 y.o. male CSN: [id number] Admission: 03/22/2025 5:35 AM Primary Problem: CAD [...] Pastoral Care Note: Patient was appreciative of kiln door builder's visit. was on the bed side supporting him. The chaplainprovided patient supportive listen, emotional support and spiritual support. The family appreciate kiln door builder as they informed the kiln door builder that they maybe discharged today. Referral From: Wheel Presser Initiated Pastoral Care Provided For: Patient, Spouse [...] release, Expresses feeling spiritually nurtured, Appreciative of Wheel Presser Support, Communicates increased satisfaction with hospital experience, Is functionally engaged in meaning making, Demonstrates and/or verbalizes increased comfort Cosigned by Eva French at 03/31/2025 9:46 AM EDT Associated attestation - Eva French - 03/31/2025 9:46 AM EDT This is to attest kiln door builder international marketing executive chart note has been reviewed and okayed. * Progress Notes - Maritza Khanna APRN - 03/28/2025 8:05 AM EDT -Nahun Gr is a 45 y.o. male PMH CAD, CKD, HLD, T2DM, Afib presented to [facility] for CABG on 03/22. 24 hr [...] CKD, HLD, T2DM, Afib presented to [facility] for CABG on 03/22. Endocrine Diabetes [...] via secure chat or page us at [phone] during 7a-7p, Sun-Sat. For after hours, weekends, [...] 5 * Progress Notes - Maritza Khanna, FACTORY LAY OUT ENGINEER - 03/27/2025 2:45 PM EDT -Subjective Lizandro Gr is a 45 y.o. male PMH CAD, CKD, HLD, T2DM, Afib presented to [facility] for CABG on 03/22. 24 hr [...] 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 ([facility]) Postoperative pain Obesity (BMI 30-39.9) Cardiac volume overload Acute blood loss anemia Thrombocytopenia (CMS/HCC) Hypocalcemia Hypophosphatemia Hypomagnesemia Transient hyperglycemia post procedure Stage 3b chronic kidney disease (CMS/HCC) Gout Chronic pain Leukocytosis Hypertriglyceridemia Hypoalphalipoproteinemia Lizandro Gr is a 45 y.o. male PMH CAD, CKD, HLD, T2DM, Afib presented to [facility] for CABG on 03/22. Endocrine Diabetes [...] via secure chat or page us at [phone] during 7a-7p, Sun-Sat. For after hours, weekends, [...] Sternotomy, coronary artery bypass grafting, endoscopic vein tgwuxyk-ktbqc-xsowwot saphenous. Vein the ascending aorta the 1st [...] (patient aware). Increased bowel regimen. Cardiothoracic Surgery [phone] [1] acetaminophen, 1,000 mg, Oral, q6h VIOLETTE [...] Sternotomy, coronary artery bypass grafting, endoscopic vein egbxqjj-oeqlx-javcchl saphenous. Vein the ascending aorta the 1st [...] as able. Escalate bowel regimen. Cardiothoracic Surgery [phone] [1] acetaminophen, 650 mg, Oral, q6h [facility] allopurinol, 300 mg, Oral, Daily aspirin, 81 mg, Oral, Daily atorvastatin, 80 mg, Oral, Nightly colchicine, 0.6 mg, Oral, BID docusate sodium, 100 mg, Oral, BID fenofibrate, 145 mg, Oral, Daily furosemide, 40 mg, Oral, Daily gabapentin, 300 mg, Oral, BID heparin (porcine), 5,000 Units, Subcutaneous, q8h [facility] insulin glargine-yfgn, 26 Units, Subcutaneous, Nightly [...] CKD, HLD, T2DM, Afib presented to [facility] for CABG on 03/22. 24 hr [...] CKD, HLD, T2DM, Afib presented to [facility] for CABG on 03/22. Endocrine Diabetes [...] via secure chat or page us at [phone] during 7a-7p, Sun-Sat. For after hours, weekends, holidays please contact the on-call Endocrine Fellow. Thank you for allowing us to participate in the care of this patient. * Consults - Beverly Ferguson RN - 03/25/2025 10:00 PM EDT Primary team d/c IV PARENT PARTNER earlier today. * Care Plan - Zaida [...] CKD, HLD, T2DM, Afib presented to [facility] for CABG on 03/22. 24 hr [...] CKD, HLD, T2DM, Afib presented to [facility] for CABG on 03/22. Endocrine Diabetes [...] via secure chat or page us at [phone] during 7a-7p, Sun-Sat. For after hours, weekends, [...] Sternotomy, coronary artery bypass grafting, endoscopic vein [id number] saphenous. Vein the ascending aorta the 1st [...] aspects of care Leukocytosis (resolved) Cardiothoracic Surgery [phone] * Progress Notes - Michelle Branham - [...] Transfer Exam: Sit to stand Level of Kouts: Contact guard Physical/Nonphysical Assist: Supervision, Verbal Cues, Minimal cues Assistive Device: Rollator Transfer Exam: Stand to Sit Level of Kouts: Contact guard Physical/Nonphysical Assist: Minimal cues, Supervision, [...] depression, for respiratory rate < 10 IV PARENT PARTNER hydromorphone 1mg/ml 0.2mg q6min - CABG. Takes tramadol and gabapentin at home Blood pressure 119/50, pulse 89, temperature 37.5 ??C (99.5 ??F), temperature source Oral, resp. rate 22, height 1.829 m (6'), weight 108 kg (238 lb 8.6 oz), SpO2 93%. Please Contact Acute Pain Service with any additional questions or concerns via Epic Secure Chat orpage [phone]. * Progress Notes - Katlin Jaffe, FACTORY LAY OUT ENGINEER - 03/25/2025 10:38 AM EDT Pain Consult Follow-Up Note Reason for Follow-up: Acute Pain Condition, Chronic Pain Condition, Multimodal pain management, PARENT PARTNER- Transition Off, and Postoperative Pain Control Subjective: Lizandro Gr is a 45 y.o. male admitted on 03/22/2025 with PMH HTN, HLD, DM2 with neuropathy,CKD3 and GERD who presented to [facility] for planned CABG. Post op he was started on the typical post-CABG pain regimen with MMPC Gabapentin, Robaxin, Lidocaine patch as well as opioids with Dilaudid and Oxycodone which was unsuccessful in treating his pain so Inpatient Pain Service was consulted for PARENT PARTNER which was started on 03/23/25. Today, primary team plans to transition of dilaudid IV PARENT PARTNER and requests PO recommendations for oral dilaudid given oxycodone being ineffective for him previously. Mr. Gr is seen sitting [facility]. He is calm and relaxed on my visit. He reports the dilaudid IV PARENT PARTNER has worked well to control his pain. I discussed with him the plan to transition off the IV PARENT PARTNER onto a oral pain regimen with dilaudid. [...] 300 mg Oral BID HYDROmorphone 1 mg/mL PARENT PARTNER (naive protocol) no dose Intravenous Continuous HYDROmorphone [...] Wean Plan Created, Pain TreatmentPreferences Discussed, and PARENT PARTNER- Transition off Assessment: Mr. Gr has acute on chronic, opioid tolerant, well controlled somatic pain s/p CABG. Post op he was started on MMPC and PO/IV PRN opioids; however, these were unsuccessful in treating his pain so a Dilaudid IV PARENT PARTNER was started on 03/23/25. Primary team has requested PO recommendations with oral dilaudid with plans to transition off PARENT PARTNER today. Recommendations: - Discontinue IV PARENT PARTNER and start: - Dilaudid 4 mg PO Q4H PRN - Give first dose 30 minutes prior to discontinuing IV PARENT PARTNER - Dilaudid 0.5 mg IV Q4H PRN [...] respiratory compromise and/or . Katlin Jaffe, MSN, [facility]- Department of Anesthesiology, Perioperative, Critical Care [...] control - Pain Team consulted for IV PARENT PARTNER - Scheduled tylenol, robaxin, gabapentin - 03/25 - discontinue IV PARENT PARTNER, Pain to provide PO recommendations * Jh Horton - Katlin Chaney RN - 03/25/2025 8:20 AM EDT Images from the original note were not included. [id number] Recovery From Heart Surgery: The First Few [...] stop Last Reviewed Date: 2024 00:00:00 ?? [id number] The [employer]. All rights reserved. This information is not [...] ? Natural and processed cheeses such as Moroccan, blue, mozzarella, and Moroccan Meat and protein substitutes Special instructions: ? [...] ? Oat meal ? Whole wheat ? [place] ? Pumpernickel ? White ? Raisin ? Crackers prepared without butter, lard, coconut, or palm oil ? Dry cereals that contain allowed fats ? Rice and pasta prepared with allowed fats ? Egg noodles (limit to ?? cup per day) ? Kiswahili ? South African ? Indonesian muffins ? Pancakes, waffles, biscuits, and cornbread made with allowed ingredients ? Flat bread ? Luis crackers ? Matzoh crackers ? Whole grain or enriched cereals prepared with allowed oils ? Wheat germ Avoid: ? Egg or cheese bread ? Butter rolls ? Commercially prepared products: biscuits, muffins, sweet rolls, cornbread, pancakes and waffles, italian toast, croissants ? Noodles ? Cheese crackers ? Flavored crackers prepared with saturated fats ? Any cereal prepared with saturated fat ? Hong Konger noodles ? Rice and pasta prepared with eggs, cream, or high fat cheese Fruits Choose: ? Any fresh, frozen, canned, or dried fruit or juice ? Avocado Vegetables Choose: ? Any fresh, frozen, or canned vegetables ? Potatoes prepared with allowed fat ? Olives (limit to 10 small or 5 large per day) Avoid: ? Buttered, creamed, or fried vegetables ? Yddt-o-nodnu, commercially made ? Vegetables prepared in a [...] sizes are listed below: ? Nuts: The Moroc[place] Heart Association recommends including 5 servings of [...] avocado oil, etc.: 1 tablespoon o The Moroc[place] Heart Association recommends limiting oils to 3 [...] ingredients ? Sorbet ? Ice milk ? [place] ? Gum drops ? Jelly beans ? [...] saturated fats, cheese, and/or egg yolks ? [place] chips ? Potato chips and other snack [...] much from the food you eat. Use UZwan to Help Build Your Meals The Prestiam[employer]icker can help you plan and track your meals and activity. You can look up individual foods to see or compare their nutritional value. You can get guidelines for what and how much you should eat. You can compare your food choices. And you can assess personal physical activities and see ways you can improve. Go to www.choosemyplate.gov/Strong Arm Technologiescker/. Eating Heart-Healthy Food: Using the DASH Plan [...] from the original note were not included. 72941 Eating Heart-Healthy Foods Eating has a big [...] judy. Last Reviewed Date: 2022 00:00:00 ?? 8199-0386 The [employer]. All rights reserved. This information is not intended as a substitute for professional medical care. Always follow your healthcare professional's instructions. * Jh Luther Katlin Chaney, RN - 03/25/2025 8:20 AM EDT Images from the original note were not included. 56936 After Bypass Surgery: Reaching, Bending, and Lifting [...] your shoulders and hips in line. ? putty and caulking supervisor the object and hold it close to [...] directions. Last Reviewed Date: 2024 00:00:00 ?? [id number] The [employer]. All rights reserved. This information is not intended as a substitute for professional medical care. Always follow your healthcare professional's instructions. * Jh Horton - Katlin Chaney RN - 03/25/2025 8:20 AM EDT Images from the original note were not included. 85885 After Bypass Surgery: Getting Up and Out [...] do. Last Reviewed Date: 2024 00:00:00 ?? [id number] [employer]you[employer]. All rights reserved. This information is not [...] AM: HDS on 4L NC. Transition from PARENT PARTNER to oral regimen. DC central line. No [...] round, and reactive to light. Neck: Comments: [facility] CV Cardiovascular: Pulses: Normal pulses. Heart sounds: [...] cooperative. Results Review {Vanishing Link Review Results :[id number] I have reviewed the latest lab and [...] control - Pain Team consulted for IV PARENT PARTNER - Scheduled tylenol, robaxin, gabapentin - 03/25 - discontinue IV PARENT PARTNER, Pain to provide PO recommendations Non-Hospital Problems [...] department on the 1st floor of the [facility] near [facility] for a chest x-ray. Then go to [...] your incisions. Do NOT lift, push, or pot puller 5 pounds for six weeks. Do NOT [...] Katlin Chaney CT Surgery Nurse Navigator at [phone] Friday through Friday 7am- 3:30pm [facility] [phone] after 3:30 pm, weekends and holidays - ask for the CT surgeon nutrition professor. * Progress Notes - Meera Ibarra RN - 03/25/2025 8:15 AM EDT Case Management Adult Progress Note Lizandro Gr 45 y.o. male CSN: [id number] Admission: 03/22/2025 5:35 AM Primary Problem: CAD (coronary artery disease) Anticipated Discharge Date: tbd Additional Comments: LISSY SILVESTRE reviewed chart and met with primary team to discuss plan of care. Patient is not medically ready for discharge at this time, transfer to telemetry. LISSY SILVESTRE will continue to follow. Update: CM placed rollator referral with [facility]. Meera Ibarra RN * Progress Notes [...] statin, beta daniel -mmpc, attempt wean off well drill operator -po diuresis -remove leg drain and pacing [...] BID heparin (porcine), 5,000 Units, Subcutaneous, q8h [facility] insulin glargine-yfgn, 20 Units, Subcutaneous, Nightly [...] mg with IVPCA. Encouraged patient to use PARENT PARTNER button to help with pain control. Follow-Up: Follow-Up: Will continue to monitor and adjust as needed. Acute Pain Service Comments: Pain Service comments: Will continue PARENT PARTNER and/ or infusion until primary service decides it is appropriate to discontinue PARENT PARTNER and/ or infusion. * Care Plan - [...] CKD, HLD, T2DM, Afib presented to [facility] for CABG on 03/22. Endocrine Diabetes [...] CKD, HLD, T2DM, Afib presented to [facility] for CABG on 03/22. Endocrine Diabetes [...] management discussed with patient, family member, bedside bottle dealer planning -Diabetes education: likely not needed -Follow-up [...] via secure chat or page us at [phone] during -7p, Friday-Friday. For after hours please [...] tablet 650 mg 650 mg Oral q6h [facility] Musa Sargent, DO 650 mg at [...] injection 5,000 Units 5,000 Units Subcutaneous q8h [facility] Marquise Raygoza MD 5,000Units at 03/24/25 1408 HYDROmorphone 1 mg/mL PARENT PARTNER (naive protocol) Intravenous Continuous Fritz Mccracken MD [...] 0-3 Units Subcutaneous Twice at night Shivani aTn MD insulin regular (HumuLIN, NovoLIN) bolus from [...] 500 mg Oral 4x daily Lisa Castro, FACTORY LAY OUT ENGINEER 500 mg at 03/24/25 1408 metoprolol tartrate [...] mg 40 mg Oral Daily Lisa Castro, FACTORY LAY OUT ENGINEER 40 mg at 03/24/25 0826 phosphorus (K [...] 20 mL 20 mL Intravenous q1h PRN uMsa Rosado MD sodium chloride 0.9 % infusion 5 mL/hr Intravenous Continuous Frtiz Mccracken MD 5 mL/hr at 03/24/25 0000 [...] 24 Hrs: No acute events. On IV PARENT PARTNER. OOBC. OBJECTIVE All laboratory data, images, tracings, [...] Result Date: 03/24/2025 Interval removal of the Sims-Brea catheter. Otherwise no significant interval change. CRITICAL [...] Will send referral to patients preferred location, [facility]. [facility] will contact Mr. Gr to discuss and [...] program. 2. Eligibility: CABG 3. Exceptions/exclusions: [facility] Cardiac Rehab Exclusions: None 4. Referral: [facility] Cardiac Rehab Referral: Patient will consider participating in a cardiac rehabilitation program. Patient was provided with contact information for the following [facility] [place] [phone]. 5. Information sent: Information Sent: Appropriate information [...] control - Pain Team consulted for IV PARENT PARTNER - Restart home gabapentin when appropriate * [...] Right Radial 03/22/25 0847 Radial 2 GCS: [place] Coma Scale Score: 15 Review of Systems [...] cooperative. Results Review {Vanishing Link Review Results :[id number] I have reviewed the latest lab and [...] control - Pain Team consulted for IV PARENT PARTNER - Restart home gabapentin when appropriate Non-Hospital [...] 300 mg Oral BID HYDROmorphone 1 mg/mL PARENT PARTNER (naive protocol) no dose Intravenous Continuous HYDROmorphone [...] Medications Medication Name Dose Route Frequency IV PARENT PARTNER hydromorphone 1mg/ml 0.2mg q6min - CABG. Takes tramadol and gabapentin at home Blood pressure (!) 158/83, pulse 90, temperature (!) 38.4 ??C (101.1 ??F), temperature source Bladder, resp. rate 20, height 1.829 m (6'), weight 103 kg (227 lb 15.3 oz), SpO2 93%. Please Contact Acute Pain Service with any additional questions or concerns via [employer] Secure [employer] orSourceThought [phone]. * Consults - Katie Rodrigez RN - [...] reports that pain is much improved with PARENT PARTNER. Encouraged patient to push PARENT PARTNER button more frequently for better pain control [...] 300 mg Oral BID HYDROmorphone 1 mg/mL PARENT PARTNER (naive protocol) no dose Intravenous Continuous HYDROmorphone [...] depression, for respiratory rate < 10 IV PARENT PARTNER hydromorphone 1mg/ml 0.2mg q6min - CABG. Takes tramadol and gabapentin at home Blood pressure (!) 158/83, pulse 83, temperature 37.6 ??C (99.7 ??F), temperature source Bladder, resp. rate 12, height 1.829 m (6'), weight 107 kg (236 lb 8.9 oz), SpO2 95%. Please Contact Acute Pain Service with any additional questions or concerns via What's More Alive Than You orpaBlueprint Genetics 8526. * Consults - Matilde Leon RD - 03/23/2025 3:03 PM EDTAssociated Order(s): IP CONSULT TO NUTRITION SERVICES Adult Nutrition Evaluation Note Lizandro Gr 45 y.o. male CSN: [id number] Room/Bed 213/213A Nutrition evaluation type: assessment Reason [...] 32.08 Weight Evaluation: Obese-Class 1 (BMI 30-34.9) [place] Body Weight (kg): 80.9 Percent [place] Body Weight: 130 Adjusted Body Weight (kg): 86.9 Estimated Needs: Kcal/ K-25 Kcal Provided: 1753-1759 Metabolic Cart Study Results: Current Nutrition Intake: Diet Order: Adult Diet Diet Texture: Clear liquid Percent Meals Eaten (%): establishing Diet Experience and Nutrition History: Diet Education Provided: Will monitor Pertinent home medications: Amish needs: Nutrition Focused Physical Exam: Unable to [...] x 4 03/22/2025 On mechanically assisted ventilation ([facility]) 03/22/2025 Electrolyte abnormality 03/22/2025 GERD (gastroesophageal reflux disease) 03/22/2025 Anemia 03/22/2025 Poorly 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 ([facility]) 03/22/2025 Atrial fibrillation ([facility]) 03/22/2025 Postoperative pain 03/22/2025 CAD [...] admission Level of Mobility: Ambulatory- community Mobility Kouts: Independent gait without device History of Falls: [...] Transfer Exam: Sit to stand Level of Kouts: Moderate assist (50% patient's effort) Physical/Nonphysical Assist: Verbal Cues, Maximal cues, Additional assist utilized for safety Assistive Device: Rollator Transfer Exam: Stand to Sit Level of Kouts: Moderate assist (50% patient's effort) Physical/Nonphysical Assist: [...] to ambulation, pt administered pain relief via PARENT PARTNER pump. Pt then ambulated into hallway and required verbal cueing for upright posture, pacing, and proximity to AD. Pt did not require any rest breaks throughout mobility. Pt positioned for comfort at end of session. Standardized Assessments [facility] 6-Clicks Mobility Assessment Difficulty patient has turning [...] steps with a railing?: A lot [facility] 6-Clicks Mobility Assessment Total : 15 No [...] x 4 03/22/2025 On mechanically assisted ventilation ([facility]) 03/22/2025 Electrolyte abnormality 03/22/2025 GERD (gastroesophageal reflux disease) 03/22/2025 Anemia 03/22/2025 Poorly 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 ([facility]) 03/22/2025 Atrial fibrillation ([facility]) 03/22/2025 Postoperative pain 03/22/2025 CAD (coronary artery [...] admission Level of Mobility: Ambulatory- community Mobility Kouts: Independent gait without device History of Falls: No ADL Performance: Independent Patient/Family Goals Statement To get better and go home. Objective Pain 8/10 sternal pain RN aware, pillow support provided and PARENT PARTNER used throughout. Delirium Screening [place] Agitation Sedation [...] Mobility Exam: Supine to Sit Level of Kouts: (Not observed- found and left up in recliner) Transfers Transfer Exam: Sit to stand Level of Kouts: Moderate assist (50% patient's effort) Physical/Nonphysical Assist: Verbal Cues, Maximal cues, Additional assist utilized for safety Assistive Device: Rollator Transfer Exam: Stand to Sit Level of Kouts: Moderate assist (50% patient's effort) Physical/Nonphysical Assist: [...] continued education to improve carryover. Standardized Assessments [facility] 6-Click Daily Activities Help from Other: Don/Doff Regular Lower Body Clothings: A lot Help From Other: Bathing: A lot Help From Other: Toileting: A lot Help From Other: Don/Doff Upper Body Clothings: Little Help From Other: Grooming: Little Help From Other: Eating Meals: None [facility] 6 Click - Daily Activities Score: 16 [...] Note Lizandro Gr 45 y.o. male CSN: [id number] Admission: 03/22/2025 5:35 AM Primary Problem: CAD (coronary artery disease) Drupal Php Developer reviewed chart and spoke with the patient at bedside to complete this Initial Case Management Assessment. PCP: David Iverson MD Emergency Contact: Extended Emergency Contact Information Primary Emergency Contact: Alissa Gr Mobile Relation: Daughter Preferred language: Indonesian Library Circulation Assistant needed? No Secondary Emergency Contact: VALENTINO MENESES Mobile Relation: Significant Other Preferred language: Indonesian Library Circulation Assistant needed? No Insurance: Primary Visit Coverage Payer Plan Sponsor Code Group Number Group Name HUMANA MEDICARE HUMANA GOLD PLUS [id number] Primary Visit Coverage Subscriber Subscriber ID Subscriber Name Subscriber N Subscriber Address [id number] LIZANDRO GR [id number] [place] [address] Patient information: Primary Caregiver: Self Accompanied by/Relationship: significant other Support System: Immediate family Daily Living Activities: Functional Status: Independent Living Arrangements: Family Type of Residence: Private residence, Single Level [address] [facility] [address] Current DME: Equipment Currently Used at Home: [...] Dialysis Services: n/a Living Will/Advance Directive/Power of Lead Nitrate Processor /Guardian: Unable to assess: No Have you [...] Anglin. Has [employer] Medicare insurance and uses [facility] in [place]. Significant other to transport and assist as [...] Rosado * Assessment & Plan Note - rKunal Galdamez MD - 03/23/2025 12:45 PM EDT [...] control - Pain Team consulted for IV PARENT PARTNER - Restart home gabapentin when appropriate * [...] round, and reactive to light. Neck: Comments: [facility] CV Cardiovascular: Pulses: Normal pulses. Heart sounds: [...] cooperative. Results Review {Vanishing Link Review Results :[id number] I have reviewed the latest lab and [...] 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 ([facility]) Present on Admission: Unknown - Continue Insulin gtt until eating more, will likely need basal-bolus regimen - will consider endo consult if glycemic control is difficult - On tramadol and gabapentin at home for neuropathy - will restart gabapentin after extubated Hemoglobin A1c Date Value Ref Range Status 02/17/2025 7.2 (H) <5.7 % Final Atrial fibrillation ([facility]) Present on Admission: Unknown - In sinus [...] control - Pain Team consulted for IV PARENT PARTNER - Restart home gabapentin when appropriate Non-Hospital Problems Microalbuminuria Type 2 diabetes mellitus with stage 2 chronic kidney disease, with long-term current use of insulin([facility]) Obesity (BMI 30-39.9) Shivani Tan MD * [...] 300 mg Oral BID HYDROmorphone 1 mg/mL PARENT PARTNER (naive protocol) no dose Intravenous Continuous HYDROmorphone [...] Medications Medication Name Dose Route Frequency IV PARENT PARTNER hydromorphone 1mg/ml 0.2mg q6min - CABG. Takes tramadol and gabapentin at home Blood pressure (!) 158/83, pulse 71, temperature 37.3 ??C (99.1 ??F), temperature source Core, resp. rate 15, height 1.829 m (6'), weight 107 kg (236 lb 8.9 oz), SpO2 95%. Please Contact Acute Pain Service with any additional questions or concerns via What's More Alive Than You orpage [phone]. * Consults - Segun Tam RN - 03/23/2025 9:05 AM EDT RN Pain Assessment Lizandro Gr is a 45 y.o. male General Information: Referring Physician/ Service: Musa Rosado MD Patient History Reviewed: Yes Medical History: Principal Problem: CAD (coronary artery disease) Active Problems: CKD (chronic kidney disease) stage 2, GFR 60-89 ml/min Hypertension HLD (hyperlipidemia) S/P CABG x 4 On mechanically assisted ventilation ([facility]) Electrolyte abnormality GERD (gastroesophageal reflux disease) Anemia Poorly 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 ([facility]) Atrial fibrillation ([facility]) Postoperative pain Pertinent Home Medications: [...] by mouth 2 times a day. Yes hCavez Lambert MD Insulin Aspart (NOVOLOG FLEXPEN SC) [...] day. Chavez Lambert MD Easy Touch Pen Encinal 31G X 8 MM misc 04/18/23 Chavez [...] 300 mg Oral BID HYDROmorphone 1 mg/mL PARENT PARTNER (naive protocol) no dose Intravenous Continuous HYDROmorphone [...] Pain Service Plan: Plan: Place on IV PARENT PARTNER IV PARENT PARTNER request - CABG dilaudid 1 mg/ml PARENT PARTNER settin.2 mg q 6 minutes Basal rate: none Various methods of pain control discussed with patient and/ or family: Yes Discussed with doctor: Yes Please Contact Inpatient Pain Service with any additional questions or concerns via [employer] Secure Chat or page [phone]. [1] No Known Allergies [2] Social History Tobacco Use Smoking Status Never Passive exposure: Never Smokeless Tobacco Never * Consults - Loretta Horn APRN - 03/23/2025 8:37 AM EDT Pain Consult Note Reason for Consult: PARENT PARTNER request, Postoperative Pain Control , Chronic pain condition, Acute pain condition, and Multimodal pain management Ordering Provider: Musa Rosado MD History of Present Illness Lizandro Gr is a 45 y.o. male admitted on 03/22/2025 with PMH HTN, HLD, DM2 with neuropathy,CKD3 and GERD who presented to [facility] for planned CABG. Post op he was started [facility] the [facility], Robaxin, Lidocaine patch as well as opioids with Dilaudid and Oxycodone. These have apparently been unsuccessful in treating his pain so Inpatient Pain Service was consulted for PARENT PARTNER. Today Mr. Gr is seen resting in [...] Neck: Comments: Right IJ MAC introducer with Sims Brea in place Musculoskeletal: Comments: Decreased ROM [...] kg/m?? Results Review {Vanishing Link Review Results :[id number] I have reviewed the latest lab and [...] Opioids Adjusted, Pain Treatment Preferences Discussed, and PARENT PARTNER- Started Assessment: Mr. Gr has acute on chronic, opioid tolerant, uncontrolled somatic pain s/p CABG. Post op he was started on MMPC and PO/IV PRN opioids; however, these were unsuccessful in treating his pain so he will be initiated on a Dilaudid IV PARENT PARTNER today. Recommendations: - Start Dilaudid IV PARENT PARTNER @ 0.2 mg Q6M lockout - Start [...] risk due to initiation of Dilaudid IV PARENT PARTNER with potential for life threatening complications including overdose, respiratory compromise and/or . Stamford Young, MSN, AGACN- Department of Anesthesiology, Perioperative, [...] Progressing * Assessment & Plan Note - Krnual Galdamez MD - 03/22/2025 4:51 PM EDT Associated Problem(s): CAD (coronary artery disease) - s/p 4vCABG on 03/[address] Rosado * Assessment & Plan Note - Krunal Galdamez MD - 03/22/2025 4:51 PM EDT Associated Problem(s): S/P CABG x 4 - ASA, statin, beta daniel as able - Monitor chest tube output * Assessment & Plan Note - Krunla Galdamez MD - 03/22/2025 4:51 PM EDT [...] dose of paralytic was given at 1420. [facility] was consulted for ICU management [...] Allergies Patient has no known allergies. GCS: [place] Coma Scale Score: 15 Review of Systems [...] present. Results Review {Vanishing Link Review Results :[id number] I have reviewed the latest lab and [...] kidney disease, with long-term current use of insulin([facility]) HLD (hyperlipidemia) Obesity (BMI 30-39.9) [...] (one) time each day. Easy Touch Pen Encinal 31G X 8 MM misc hydroCHLOROthiazide (HYDRODiuril) [...] Sternotomy, coronary artery bypass grafting, endoscopic vein zuwlmtl-xfflk-jdypdse saphenous. -Vein the ascending aorta the 1st [...] Sternotomy, coronary artery bypass grafting, endoscopic vein aordrrl-ciomh-ylwuizr saphenous. -Vein the ascending aorta the 1st [...] - Primary * Murali Gomez - Assisting Production Tool Engineer(s): * Marquise Raygoza MD - Resident - Assisting Murali Gomez PAC performed endoscopic vein harvest. Marquise Raygoza emptying PGY 5-was 1st assistant offset press operator through the entire case Anesthesia: [...] was induced, monitoring lines were placed, a Sims-Brea catheter was floated into position and a [...] examined no active bleeding was noted. 1-24 South African tube was placed in the patient's right pleural cavity, 1-28 South African cannula was placed in the left cavity, 1-36 South African mediastinal tube was placed. Chest tubes and [...] hemodynamically stable. This concludes operative summary Dr. Rosdao dictating thank you. Complications: None; patient tolerated [...] Dr. Gonzalez in regards to recent [facility] with results indicating multi-vessel coronary artery [...] visit. Results Review {Vanishing Link Review Results :[id number] I have reviewed the latest lab and [...] 3:40 PM EDT Office Visit [facility] Cardiothoracic [address], [address] [place] [address] Musa Rosado MD [address] [place] [address] 06/13/2025 11:40 AM EDT Office Visit [facility] Nephrology, Bone & Mineral Metabolism [address], [address] [place] [address] Sonia Medley MD [address] [place] [address] Pending Results Name Type Priority [...] UNSOLICITED RESULTS Routine 03/24/2025 11:44 AM EDT [facility] CRITICAL CARE, E/M 30-74 MINUTES Routine 03/24/2025 [...] UNSOLICITED RESULTS Routine 03/23/2025 1:57 PM EDT MT CRITICAL CARE, E/M 30-74 MINUTES Routine 03/23/2025 [...] 1 VIEW STAT 03/22/2025 4:46 PM EDT MT CRITICAL CARE, E/M 30-74 MINUTES Routine 03/22/2025 [...] UNSOLICITED RESULTS Routine 03/22/2025 7:57 AM EDT MT CABG, VEIN, THREE 03/22/2025 7:26 AM EDT Coronary artery disease due to calcified coronary lesion CKD (chronic kidney disease) stage 2, GFR 60-89 ml/min 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 Comment 03/30/2025 8:34 AM EDT [email or web address] Cotton Classer Aide ID Katlin Cheung 03/30/2025 8:34 AM EDT [email or web address] Device ID [id number] 03/30/2025 8:34 AM EDT [email or web address] Specimen Type POC Capillary 03/30/2025 8:34 AM EDT [email or web address] Blood Capillary blood specimen / Unknown 03/30/2025 8:32 AM EDT 03/30/2025 8:34 AM EDT Musa Rosado MD LAB POINT OF CARE TE ST DOCKED DEVICE UNSOLICITED RESULTS Final Result Performing Organization Address City/State/[facility] Co de Phone Number [facility]ALTHCARE LAB [address] [place] [address] * XR Chest 2 Views (03/30/2025 6:47 [...] MD on 03/30/2025 9:29 AM Ephraim Hicks FACTORY LAY OUT ENGINEER IMG XR PROCEDURES Final Resu lt * (ABNORMAL) Basic Metabolic Panel, Plasma (03/30/2025 3:47 AM EDT) Glucose, Plasma 172(H) 74 - 99 mg/dL 03/30/2025 5:23 AM EDT [facility] BUN, Plasma 28(H) 7 - 21 mg/dL 03/30/2025 5:23 AM EDT [facility] Creatinine, Plasma 1.18 0.70 - 1.20 mg/dL 03/30/2025 5:23 AM EDT [facility] BUN/Creatinine Ratio 24 03/30/2025 5:23 AM EDT [facility] Sodium, Plasma 138 136 - 145 mmol/L 03/30/2025 5:23 AM EDT [facility] Potassium, Plasma 4.1 3.6 - 4.9 mmol/L 03/30/2025 5:23 AM EDT [facility] Chloride, Plasma 103 97 - 107 mmol/L 03/30/2025 5:23 AM EDT [facility] CO2, Plasma 23 22 - 29 mmol/L 03/30/2025 5:23 AM EDT [facility] Anion Gap 12 6 - 16 mmol/L 03/30/2025 5:23 AM EDT [facility] Total Calcium, Plasma 8.9 8.9 - 10.2 mg/dL 03/30/2025 5:23 AM EDT [facility] eGFRcr 78.5 mL/min/1.7 3m*2 03/30/2025 5:23 AM EDT [facility] Comment:Reported eGFRcr in m L/min/1.73m2 is based the CKD-EPI 2020 equation that does not use a race coefficient. Blood Venous blood specimen / Unknown Venipuncture / Unknown 03/30/2025 3:47 AM EDT 03/30/2025 4:48 AM EDT us Ephraim Hicks APRN LAB BLOOD ORDERABLES Final R esult [facility] [address] [place] [address] * (ABNORMAL) CBC W/O Differential (03/30/2025 3:47 AM EDT) WBC Count 7.54 3.70 - 10.30 10*3/uL LAB HEMATOLOGY METHOD 03/30/2025 4:58 AM EDT [facility] RBC Count 3.01(L) 4.60 - 6.10 10*6/uL LAB HEMATOLOGY METHOD 03/30/2025 4:58 AM EDT [facility] HGB 9.0(L) 13.7 - 17.5 g/dL LAB HEMATOLOGY METHOD 03/30/2025 4:58 AM EDT [facility] HCT 27.9(L) 40.0 - 51.0 % LAB HEMATOLOGY METHOD 03/30/2025 4:58 AM EDT [facility] Platelet Count 286 155 - 369 10*3/uL LAB HEMATOLOGY METHOD 03/30/2025 4:58 AM EDT [facility] MCV 93 79 - 98 fL LAB HEMATOLOGY METHOD 03/30/2025 4:58 AM EDT [facility] MCH 29.9 26.0 - 32.0 pg LAB HEMATOLOGY METHOD 03/30/2025 4:58 AM EDT [facility] MCHC 32.3 30.7 - 35.5 g/dL LAB HEMATOLOGY METHOD 03/30/2025 4:58 AM EDT [facility] RDW 14.3 11.5 - 14.5 % LAB HEMATOLOGY METHOD 03/30/2025 4:58 AM EDT [facility] MPV 10.7 8.8 - 12.5 fL LAB HEMATOLOGY METHOD 03/30/2025 4:58 AM EDT [facility] nRBC 0.4(H) <=0.0 per 100 WBCs LAB HEMATOLOGY METHOD 03/30/2025 4:58 AM EDT [facility] Blood Venous blood specimen / Unknown Venipuncture / Unknown 03/30/2025 3:47 AM EDT 03/30/2025 4:51 AM EDT us Ephraim Hicks APRN LAB BLOOD ORDERABLES Final R esult [facility] [address] [place] [address] * (ABNORMAL) POCT glucose meter (03/29/2025 7:20 PM EDT) [facility] POCT Glucose 226(H) 74 - 99 mg/dL [...] Comment 03/29/2025 7:21 PM EDT [facility] Cotton Classer Aide ID Guerline Arambula 03/29/20 7:21 PM EDT HEALTHCARE LAB Device ID [id number] 03/29/2025 7:21 PM EDT [facility]ALTH[facility]ARE [facility] Specimen Type POC Capillary 03/29/2025 7:21 PM EDT [facility] Blood Capillary blood specimen / Unknown 03/29/2025 7:20 PM EDT 03/29/2025 7:21 PM EDT us Musa Rosado MD LAB POINT OF CARE TE ST DOCKED DEVICE UNSOLICITED RESULTS Final Result [facility] [address] [place] [address] * (ABNORMAL) POCT glucose meter (03/29/2025 5:33 PM EDT) [facility] POCT Glucose 155(H) 74 - 99 mg/dL [...] 03/29/2025 5:35 PM EDT [facility] Cotton Classer Aide ID Kristie Sanon 025 5:35 PM EDT [facility] Device ID [id number] 03/29/2025 5:35 PM EDT [facility] Specimen Type POC Capillary 03/29/2025 5:35 PM EDT [facility] Blood Capillary blood specimen / Unknown 03/29/2025 5:33 PM EDT 03/29/2025 5:35 PM EDT Musa Rosado MD LAB POINT OF CARE TE ST DOCKED DEVICE UNSOLICITED RESULTS Final Result [facility] [address] [place] [address] * (ABNORMAL) POCT glucose meter (03/29/2025 12:29 PM EDT) [facility] POCT Glucose 213(H) 74 - 99 mg/dL [...] 03/29/2025 12:30 PM EDT [facility] Cotton Classer Aide ID Kristie Sanon 025 12:30 PM EDT [facility] Device ID [id number] 03/29/2025 12:30 PM EDT [facility] Specimen Type POC Capillary 03/29/2025 12:30 PM EDT [facility] Blood Capillary blood specimen / Unknown 03/29/2025 12:29 PM EDT 03/29/2025 12:30 PM EDT us Musa Rosado MD LAB POINT OF CARE TE ST DOCKED DEVICE UNSOLICITED RESULTS Final Result Performing Organization Address City/[facility] Co de Phone Number [facility]ARE [facility] [address] [place] [address] * (ABNORMAL) POCT glucose meter (03/29/2025 8:19 [...] Comment 03/29/2025 8:20 AM EDT [facility] Cotton Classer Aide ID Kristie Sanon 025 8:20 AM EDT [facility]ARE LAB Device ID [id number] 03/29/2025 8:20 AM EDT [facility] Specimen Type POC Capillary 03/29/2025 8:20 AM EDT [facility] Blood Capillary blood specimen / Unknown 03/29/2025 8:19 AM EDT 03/29/2025 8:20 AM EDT us Musa Rosado MD LAB POINT OF CARE TE ST DOCKED DEVICE UNSOLICITED RESULTS Final Result Performing Organization Address City/[facility] de Phone Number [facility]ARE [facility] [address] [place] [address] * (ABNORMAL) POCT glucose meter (03/28/2025 8:02 [...] 03/28/2025 8:04 PM EDT [facility] Cotton Classer Aide ID Kathia Carl 03/28/2025 8:04 PM EDT [facility] Device ID [id number] 03/28/2025 8:04 PM EDT [facility] Specimen Type POC Capillary 03/28/2025 8:04 PM EDT [facility] Blood Capillary blood specimen / Unknown 03/28/2025 8:02 PM EDT 03/28/2025 8:04 PM EDT Musa Rosado MD LAB POINT OF CARE TE ST DOCKED DEVICE UNSOLICITED RESULTS Final Result [facility] [address] [place] [address] * (ABNORMAL) POCT glucose meter (03/28/2025 4:59 PM EDT) [facility] POCT Glucose 164(H) 74 - 99 mg/dL [...] 03/28/2025 5:00 PM EDT [facility] Cotton Classer Aide ID Kristie Sanon 025 5:00 PM EDT [facility] Device ID [id number] 03/28/2025 5:00 PM EDT [facility] Specimen Type POC Capillary 03/28/2025 5:00 PM EDT [facility] Blood Capillary blood specimen / Unknown 03/28/2025 4:59 PM EDT 03/28/2025 5:00 PM EDT Musa Rosado MD LAB POINT OF CARE TE ST DOCKED DEVICE UNSOLICITED RESULTS Final Result Performing Organization Address [facility] Co de Phone Number [facility] [address] [place] [address] * (ABNORMAL) POCT glucose meter (03/28/2025 12:10 PM EDT) [facility] POCT Glucose 243(H) 74 - 99 [...] Comment 03/28/2025 12:12 PM EDT [facility]ALTH[facility]ARE [facility] Cotton Classer Aide ID Kristie Sanon 025 12:12 PM EDT HEALTHCARE LAB Device ID [id number] 03/28/2025 12:12 PM EDT [facility] Specimen Type POC Capillary 03/28/2025 12:12 PM EDT [facility] Blood Capillary blood specimen / Unknown 03/28/2025 12:10 PM EDT 03/28/2025 12:12 PM EDT us Musa Rosado MD LAB POINT OF CARE TE ST DOCKED DEVICE UNSOLICITED RESULTS Final Result Performing Organization Address City/[facility] Co de Phone Number [facility] [address] [place] [address] * (ABNORMAL) POCT glucose meter (03/28/2025 8:07 AM EDT) Pathologist [facility] POCT Glucose 205(H) 74 - 99 [...] Comment 03/28/2025 8:09 AM EDT [facility] Cotton Classer Aide ID Kristie Sanon 025 8:09 AM EDT [facility]ARE [facility] Device ID [id number] 03/28/2025 8:09 AM EDT [facility] Specimen Type POC Capillary 03/28/2025 8:09 AM EDT [facility] Blood Capillary blood specimen / Unknown 03/28/2025 8:07 AM EDT 03/28/2025 8:09 AM EDT Musa Rosado MD LAB POINT OF CARE TE ST DOCKED DEVICE UNSOLICITED RESULTS Final Result [facility] [address] [place] [address] * XR Chest 2 Views (03/28/2025 6:13 [...] 03/28/2025 10:43 AM us La Nena March FACTORY LAY OUT ENGINEER IMG XR PROCEDURES Final Result * Magnesium (03/28/2025 4:35 AM EDT) Magnesium, Plasma 1.9 1.9 - 2.4 mg/dL 03/28/2025 5:18 AM EDT [facility] Blood Venous blood specimen / Unknown Venipuncture / Unknown 03/28/2025 4:35 AM EDT 03/28/2025 4:42 AM EDT us La Nena March APRN LAB BLOOD ORDERABLES Final Res ult [facility] [address] [place] [address] * (ABNORMAL) Comprehensive metabolic panel (03/28/2025 4:35 AM EDT) Glucose, Plasma 196(H) 74 - 99 mg/dL 03/28/2025 5:18 AM EDT [facility] BUN, Plasma 20 7 - 21 mg/dL 03/28/2025 5:18 AM EDT [facility] Creatinine, Plasma 1.13 0.70 - 1.20 mg/dL 03/28/2025 5:18 AM EDT [facility] BUN/Creatinine Ratio 18 03/28/2025 5:18 AM EDT [facility] Sodium, Plasma 134(L) 136 - 145 mmol/L 03/28/2025 5:18 AM EDT [facility] Potassium, Plasma 4.2 3.6 - 4.9 mmol/L 03/28/2025 5:18 AM EDT [facility] Chloride, Plasma 102 97 - 107 mmol/L 03/28/2025 5:18 AM EDT [facility] CO2, Plasma 22 22 - 29 mmol/L 03/28/2025 5:18 AM EDT [facility] Anion Gap 10 6 - 16 mmol/L 03/28/2025 5:18 AM EDT [facility] Total Calcium, Plasma 9.1 8.9 - 10.2 mg/dL 03/28/2025 5:18 AM EDT [facility] Total Protein 6.3 6.3 - 7.9 g/dL 03/28/2025 5:18 AM EDT [facility] Albumin, Plasma 3.6 3.5 - 5.2 g/dL 03/28/2025 5:18 AM EDT [facility] AST, Plasma 32 10 - 50 U/L 03/28/2025 5:18 AM EDT [facility] ALT, Plasma 35 10 - 50 U/L 03/28/2025 5:18 AM EDT [facility] Alkaline Phosphatase, Plasma 67 40 - 115 U/L 03/28/2025 5:18 AM EDT [facility] Total Bilirubin, Plasma 0.8 0.2 - 1.1 mg/dL 03/28/2025 5:18 AM EDT [facility] eGFRcr 82.7 mL/min/1.7 3m*2 03/28/2025 5:18 AM EDT [facility] Comment:Reported eGFRcr in m L/min/1.73m2 is based the CKD-EPI 2020 equation that does not use a race coefficient. Blood Venous blood specimen / Unknown Venipuncture / Unknown 03/28/2025 4:35 AM EDT 03/28/2025 4:42 AM EDT La Nena March APRN LAB BLOOD ORDERABLES Final Res ult [facility] [address] [place] [address] * (ABNORMAL) Hemogram (CBC) (03/28/2025 4:35 AM EDT) WBC Count 6.01 3.70 - 10.30 10*3/uL LAB HEMATOLOGY METHOD 03/28/2025 5:08 AM EDT [facility] RBC Count 2.89(L) 4.60 - 6.10 10*6/uL LAB HEMATOLOGY METHOD 03/28/2025 5:08 AM EDT [facility] HGB 8.8(L) 13.7 - 17.5 g/dL LAB HEMATOLOGY METHOD 03/28/2025 5:08 AM EDT [facility] HCT 26.6(L) 40.0 - 51.0 % LAB HEMATOLOGY METHOD 03/28/2025 5:08 AM EDT [facility] Platelet Count 218 155 - 369 10*3/uL LAB HEMATOLOGY METHOD 03/28/2025 5:08 AM EDT [facility] MCV 92 79 - 98 fL LAB HEMATOLOGY METHOD 03/28/2025 5:08 AM EDT [facility] MCH 30.4 26.0 - 32.0 pg LAB HEMATOLOGY METHOD 03/28/2025 5:08 AM EDT [facility] MCHC 33.1 30.7 - 35.5 g/dL LAB HEMATOLOGY METHOD 03/28/2025 5:08 AM EDT [facility] RDW 13.6 11.5 - 14.5 % LAB HEMATOLOGY METHOD 03/28/2025 5:08 AM EDT [facility] MPV 10.7 8.8 - 12.5 fL LAB HEMATOLOGY METHOD 03/28/2025 5:08 AM EDT [facility] nRBC 0.5(H) <=0.0 per 100 WBCs LAB HEMATOLOGY METHOD 03/28/2025 5:08 AM EDT [facility] Blood Venous blood specimen / Unknown Venipuncture / Unknown 03/28/2025 4:35 AM EDT 03/28/2025 4:43 AM EDT us La Nena March APRN LAB BLOOD ORDERABLES Final Res ult [facility] [address] [place] [address] * (ABNORMAL) POCT glucose meter (03/27/2025 8:18 PM EDT) [facility] POCT Glucose 161(H) 74 - 99 mg/dL 03/27/2025 8:20 PM EDT [email or web address] Comment:Accuracy of a glucos e result [...] Comment 03/27/2025 8:20 PM EDT [facility]ALTH[facility]ARE [facility] Cotton Classer Aide ID Mandy Overton 03/27/2025 8:20 PM EDT HEALTHCARE LAB Device ID [id number] 03/27/2025 8:20 PM EDT [facility]ALTH[facility]ARE LAB Specimen Type POC Capillary 03/27/2025 8:20 PM EDT [facility] Blood Capillary blood specimen / Unknown 03/27/2025 8:18 PM EDT 03/27/2025 8:20 PM EDT Musa Rosado MD LAB POINT OF CARE TE ST DOCKED DEVICE UNSOLICITED RESULTS Final Result Performing Organization Address [facility] de Phone Number [facility] [address] [place] [address] * (ABNORMAL) POCT glucose meter (03/27/2025 5:45 PM EDT) [facility] POCT Glucose 184(H) 74 - 99 mg/dL [...] 03/27/2025 5:47 PM EDT [facility] Cotton Classer Aide ID Larry Maher 5:47 PM EDT HEALTH[facility]ARE LAB Device ID [id number] 03/27/2025 5:47 PM EDT [facility]ARE LAB Specimen Type POC Capillary 03/27/2025 5:47 PM EDT [facility] Blood Capillary blood specimen / Unknown 03/27/2025 5:45 PM EDT 03/27/2025 5:47 PM EDT Musa Rosado MD LAB POINT OF CARE TE ST DOCKED DEVICE UNSOLICITED RESULTS Final Result Performing Organization Address City/[facility] Co de Phone Number [facility] [address] [place] [address] * (ABNORMAL) POCT glucose meter (03/27/2025 1:04 PM EDT) [facility] POCT Glucose 242(H) 74 - 99 mg/dL [...] Comment 03/27/2025 1:06 PM EDT [facility]ALTH[facility]ARE [facility] Cotton Classer Aide ID Mary Jo Tracey 03/27/20 1:06 PM EDT HEALTH[facility]ARE LAB Device ID [id number] 03/27/2025 1:06 PM EDT [facility]ARE LAB Specimen Type POC Capillary 03/27/2025 1:06 PM EDT [facility] Blood Capillary blood specimen / Unknown 03/27/2025 1:04 PM EDT 03/27/2025 1:06 PM EDT Musa Rosado MD LAB POINT OF CARE TE ST DOCKED DEVICE UNSOLICITED RESULTS Final Result [facility] [address] [place] [address] * (ABNORMAL) POCT glucose meter (03/27/2025 8:42 AM EDT) [facility] POCT Glucose 211(H) 74 - 99 mg/dL [...] Comment 03/27/2025 8:44 AM EDT [facility] Cotton Classer Aide ID Larry aMher 8:44 AM EDT HEALTH[facility]ARE LAB Device ID [id number] 03/27/2025 8:44 AM EDT [facility]ALTH[facility]ARE LAB Specimen Type POC Capillary 03/27/2025 8:44 AM EDT [facility] Blood Capillary blood specimen / Unknown 03/27/2025 8:42 AM EDT 03/27/2025 8:44 AM EDT us Musa Rosado MD LAB POINT OF CARE TE ST DOCKED DEVICE UNSOLICITED RESULTS Final Result Performing Organization Address City/[facility]/ZIP Co de Phone Number [facility] [address] [place] [address] * Magnesium (03/27/2025 5:02 AM EDT) Magnesium, Plasma 1.9 1.9 - 2.4 mg/dL 03/27/2025 5:49 AM EDT [facility] Blood Venous blood specimen / Unknown Venipuncture / Unknown 03/27/2025 5:02 AM EDT 03/27/2025 5:22 AM EDT us La Nena March APRN LAB BLOOD ORDERABLES Final Res ult Performing Organization Address City/[facility]/ZIP Co de Phone Number [facility] [address] [place] [address] * (ABNORMAL) Comprehensive metabolic panel (03/27/2025 5:02 AM EDT) Glucose, Plasma 200(H) 74 - 99 mg/dL 03/27/2025 5:49 AM EDT [facility] BUN, Plasma 18 7 - 21 mg/dL 03/27/2025 5:49 AM EDT [facility] Creatinine, Plasma 1.03 0.70 - 1.20 mg/dL 03/27/2025 5:49 AM EDT [facility] BUN/Creatinine Ratio 17 03/27/2025 5:49 AM EDT [facility] Sodium, Plasma 138 136 - 145 mmol/L 03/27/2025 5:49 AM EDT [facility] Potassium, Plasma 4.3 3.6 - 4.9 mmol/L 03/27/2025 5:49 AM EDT [facility] Chloride, Plasma 106 97 - 107 mmol/L 03/27/2025 5:49 AM EDT [facility] CO2, Plasma 22 22 - 29 mmol/L 03/27/2025 5:49 AM EDT [facility] Anion Gap 10 6 - 16 mmol/L 03/27/2025 5:49 AM EDT [facility] Total Calcium, Plasma 8.8(L) 8.9 - 10.2 mg/dL 03/27/2025 5:49 AM EDT [facility] Total Protein 6.4 6.3 - 7.9 g/dL 03/27/2025 5:49 AM EDT [facility] Albumin, Plasma 3.4(L) 3.5 - 5.2 g/dL 03/27/2025 5:49 AM EDT [facility] AST, Plasma 21 10 - 50 U/L 03/27/2025 5:49 AM EDT [facility] ALT, Plasma 21 10 - 50 U/L 03/27/2025 5:49 AM EDT [facility] Alkaline Phosphatase, Plasma 59 40 - 115 U/L 03/27/2025 5:49 AM EDT [facility] Total Bilirubin, Plasma 0.8 0.2 - 1.1 mg/dL 03/27/2025 5:49 AM EDT [facility] eGFRcr 92.4 mL/min/1.7 3m*2 03/27/2025 5:49 AM EDT [facility] Comment:Reported eGFRcr in m L/min/1.73m2 is based the CKD-EPI 2020 equation that does not use a race coefficient. Blood Venous blood specimen / Unknown Venipuncture / Unknown 03/27/2025 5:02 AM EDT 03/27/2025 5:22 AM EDT us La Nena March FACTORY LAY OUT ENGINEER LAB BLOOD ORDERABLES Final Res ult [facility] [address] [place] [address] * (ABNORMAL) Hemogram (CBC) (03/27/2025 5:02 AM EDT) WBC Count 5.04 3.70 - 10.30 10*3/uL LAB HEMATOLOGY METHOD 03/27/2025 5:37 AM EDT [facility] RBC Count 2.93(L) 4.60 - 6.10 10*6/uL LAB HEMATOLOGY METHOD 03/27/2025 5:37 AM EDT [facility] HGB 8.8(L) 13.7 - 17.5 g/dL LAB HEMATOLOGY METHOD 03/27/2025 5:37 AM EDT [facility] HCT 27.3(L) 40.0 - 51.0 % LAB HEMATOLOGY METHOD 03/27/2025 5:37 AM EDT [facility] Platelet Count 174 155 - 369 10*3/uL LAB HEMATOLOGY METHOD 03/27/2025 5:37 AM EDT [facility] MCV 93 79 - 98 fL LAB HEMATOLOGY METHOD 03/27/2025 5:37 AM EDT [facility] MCH 30.0 26.0 - 32.0 pg LAB HEMATOLOGY METHOD 03/27/2025 5:37 AM EDT [facility] MCHC 32.2 30.7 - 35.5 g/dL LAB HEMATOLOGY METHOD 03/27/2025 5:37 AM EDT [facility] RDW 13.7 11.5 - 14.5 % LAB HEMATOLOGY METHOD 03/27/2025 5:37 AM EDT [facility] MPV 10.6 8.8 - 12.5 fL LAB HEMATOLOGY METHOD 03/27/2025 5:37 AM EDT [facility] nRBC 0.6(H) <=0.0 per 100 WBCs LAB HEMATOLOGY METHOD 03/27/2025 5:37 AM EDT [facility] Blood Venous blood specimen / Unknown Venipuncture / Unknown 03/27/2025 5:02 AM EDT 03/27/2025 5:22 AM EDT us La Nena March [employer] LAB BLOOD ORDERABLES Final Res ult [facility] [address] [place] [address] * XR Chest 1 View (03/27/2025 4:58 [...] on 03/27/2025 10:17 AM La Nena March [employer] IMG XR PROCEDURES Final Result * (ABNORMAL) [...] 03/27/2025 4:38 AM EDT [facility] Cotton Classer Aide ID Gary Norma [id number] 4:38 AM EDT [facility] Device ID [id number] 03/27/2025 4:38 AM EDT [facility] Specimen Type POC Capillary 03/27/2025 4:38 AM EDT [facility] Blood Capillary blood specimen / Unknown 03/27/2025 4:35 AM EDT 03/27/2025 4:38 AM EDT Musa Rosado MD LAB POINT OF CARE TE ST DOCKED DEVICE UNSOLICITED RESULTS Final Result Performing Organization Address City/[facility] Co de Phone Number [facility] [address] [place] [address] * (ABNORMAL) POCT glucose meter (03/26/2025 8:20 PM EDT) [facility] POCT Glucose 260(H) 74 - 99 mg/dL [...] Comment 03/26/2025 8:24 PM EDT [facility]ALTH[facility] Cotton Classer Aide ID Norma Vega 025 8:24 PM EDT [facility] LAB Device ID [id number] 03/26/2025 8:24 PM EDT [facility]ALTH[facility]ARE LAB Specimen Type POC Capillary 03/26/2025 8:24 PM EDT [facility] Blood Capillary blood specimen / Unknown 03/26/2025 8:20 PM EDT 03/26/2025 8:24 PM EDT Musa Rosado MD LAB POINT OF CARE TE ST DOCKED DEVICE UNSOLICITED RESULTS Final Result Performing Organization Address City/[facility]/ZIP Co de Phone Number [facility]ALTHCARE [facility] [address] [place] [address] * (ABNORMAL) POCT glucose meter (03/26/2025 5:30 [...] 03/26/2025 5:34 PM EDT [facility] Cotton Classer Aide ID Tonja Olivares 5:34 PM EDT [facility] Device ID [id number] 03/26/2025 5:34 PM EDT [facility] Specimen Type POC Capillary 03/26/2025 5:34 PM EDT [facility] Blood Capillary blood specimen / Unknown 03/26/2025 5:30 PM EDT 03/26/2025 5:34 PM EDT Musa Rosado MD LAB POINT OF CARE TE ST DOCKED DEVICE UNSOLICITED RESULTS Final Result Performing Organization Address City/State/[facility] Co de Phone Number [facility] [address] [place] [address] * (ABNORMAL) POCT glucose meter (03/26/2025 12:28 PM EDT) [facility] POCT Glucose 254(H) 74 - 99 mg/dL [...] 03/26/2025 12:30 PM EDT [facility] Cotton Classer Aide ID Tonja Olivares 12:30 PM EDT [facility] Device ID [id number] 03/26/2025 12:30 PM EDT [facility] Specimen Type POC Capillary 03/26/2025 12:30 PM EDT [facility] Blood Capillary blood specimen / Unknown 03/26/2025 12:28 PM EDT 03/26/2025 12:30 PM EDT us Musa Rosado MD LAB POINT OF CARE TE ST DOCKED DEVICE UNSOLICITED RESULTS Final Result Performing Organization Address [facility] de Phone Number [facility]ALTHCARE [facility] [address] [place] [address] * (ABNORMAL) POCT glucose meter (03/26/2025 8:40 [...] Comment 03/26/2025 8:42 AM EDT [facility]ALTHCARE LAB Cotton Classer Aide ID Tonja Olivares 8:42 AM EDT HEALTHCARE LAB Device ID [id number] 03/26/2025 8:42 AM EDT HEALTHCARE LAB Specimen Type POC Capillary 03/26/2025 8:42 AM EDT [facility] Blood Capillary blood specimen / Unknown 03/26/2025 8:40 AM EDT 03/26/2025 8:42 AM EDT us Musa Rosado MD LAB POINT OF CARE TE ST DOCKED DEVICE UNSOLICITED RESULTS Final Result Performing Organization Address City/[facility] Co de Phone Number [facility] [address] [place] [address] * XR Chest 1 View (03/26/2025 5:53 [...] on 03/26/2025 9:51 AM La Nena March FA[employer]ORY LAY OUT ENGINEER IMG XR PROCEDURES Final Result * (ABNORMAL) Lipid panel (03/26/2025 3:50 AM EDT) Cholesterol, Plasma 76 <200 mg/dL 03/26/2025 4:55 AM EDT [facility] Comment: Cholesterol Reference Range (age >17 years): Desirable <200 mg/dL Borderline 200 to 239 mg/dL Undesirable >239 mg/dL HDL 22(L) >=40 mg/dL 03/26/2025 4:55 AM EDT [facility] Comment: HDL Cholesterol Reference Ranges (age >17 years): Female, acceptable > or = 50 mg/dL Male, acceptable > or = 40 mg/dL Triglycerides, Plasma 152(H) <150 mg/dL 03/26/2025 4:55 AM EDT [facility] Comment: Triglyceride Reference Range (age >17 years): Desirable: <150 mg/dL Borderline high: 150 to 199 mg/dL High: 200 to 499 mg/dL Very high: >499 mg/dL Increased risk of pancreatitis: >1000 mg/dL Cholesterol/HDL Ratio 3 03/26/2025 4:55 AM EDT [facility] LDL, Calculated 28 <100 mg/dL 4:55 AM EDT [facility] Comment: LDL Cholesterol Reference Range [...] 12 hours? No 03/26/2025 4:55 AM EDT [facility] Blood Venous blood specimen / Unknown Venipuncture / Unknown 03/26/2025 3:50 AM EDT 03/26/2025 4:26 AM EDT La Nena S Joaquim FA[employer] LAY OUT ENGINEER LAB BLOOD ORDERABLES Final Res ult Performing Organization Address City/[facility]/ZIP Co de Phone Number [facility] [address] [place] [address] * Magnesium (03/26/2025 3:50 AM EDT) Magnesium, Plasma 2.1 1.9 - 2.4 mg/dL 03/26/2025 4:55 AM EDT [facility] Blood Venous blood specimen / Unknown Venipuncture / Unknown 03/26/2025 3:50 AM EDT 03/26/2025 4:26 AM EDT La Nena Berenice March FA[employer]ORY LAY OUT ENGINEER LAB BLOOD ORDERABLES Final Res ult [facility] [address] [place] [address] * (ABNORMAL) Comprehensive metabolic panel (03/26/2025 3:50 AM EDT) Glucose, Plasma 268(H) 74 - 99 mg/dL 03/26/2025 4:55 AM EDT [facility] BUN, Plasma 24(H) 7 - 21 mg/dL 03/26/2025 4:55 AM EDT [facility] Creatinine, Plasma 1.06 0.70 - 1.20 mg/dL 03/26/2025 4:55 AM EDT [facility] BUN/Creatinine Ratio 23 03/26/2025 4:55 AM EDT [facility] Sodium, Plasma 138 136 - 145 mmol/L 03/26/2025 4:55 AM EDT [facility] Potassium, Plasma 4.0 3.6 - 4.9 mmol/L 03/26/2025 4:55 AM EDT [facility] Chloride, Plasma 104 97 - 107 mmol/L 03/26/2025 4:55 AM EDT [facility] CO2, Plasma 25 22 - 29 mmol/L 03/26/2025 4:55 AM EDT [facility] Anion Gap 9 6 - 16 mmol/L 03/26/2025 4:55 AM EDT [facility] Total Calcium, Plasma 8.3(L) 8.9 - 10.2 mg/dL 03/26/2025 4:55 AM EDT [facility] Total Protein 5.9(L) 6.3 - 7.9 g/dL 03/26/2025 4:55 AM EDT [facility] Albumin, Plasma 3.2(L) 3.5 - 5.2 g/dL 03/26/2025 4:55 AM EDT [facility] AST, Plasma 18 10 - 50 U/L 03/26/2025 4:55 AM EDT [facility] ALT, Plasma 14 10 - 50 U/L 03/26/2025 4:55 AM EDT [facility] Alkaline Phosphatase, Plasma 43 40 - 115 U/L 03/26/2025 4:55 AM EDT [facility] Total Bilirubin, Plasma 0.5 0.2 - 1.1 mg/dL 03/26/2025 4:55 AM EDT [facility] eGFRcr 89.3 mL/min/1.7 3m*2 03/26/2025 4:55 AM EDT [facility] Comment:Reported eGFRcr in m L/min/1.73m2 is based the CKD-EPI 2020 equation that does not use a race coefficient. Blood Venous blood specimen / Unknown Venipuncture / Unknown 03/26/2025 3:50 AM EDT 03/26/2025 4:26 AM EDT us La Nena March APRN LAB BLOOD ORDERABLES Final Res ult [facility] [address] [place] [address] * (ABNORMAL) Hemogram (CBC) (03/26/2025 3:50 AM EDT) WBC Count 4.53 3.70 - 10.30 10*3/uL LAB HEMATOLOGY METHOD 03/26/2025 4:36 AM EDT [facility] RBC Count 2.56(L) 4.60 - 6.10 10*6/uL LAB HEMATOLOGY METHOD 03/26/2025 4:36 AM EDT [facility] HGB 7.8(L) 13.7 - 17.5 g/dL LAB HEMATOLOGY METHOD 03/26/2025 4:36 AM EDT [facility] HCT 23.9(L) 40.0 - 51.0 % LAB HEMATOLOGY METHOD 03/26/2025 4:36 AM EDT [facility] Platelet Count 129(L) 155 - 369 10*3/uL LAB HEMATOLOGY METHOD 03/26/2025 4:36 AM EDT [facility] MCV 93 79 - 98 fL LAB HEMATOLOGY METHOD 03/26/2025 4:36 AM EDT [facility] MCH 30.5 26.0 - 32.0 pg LAB HEMATOLOGY METHOD 03/26/2025 4:36 AM EDT [facility] MCHC 32.6 30.7 - 35.5 g/dL LAB HEMATOLOGY METHOD 03/26/2025 4:36 AM EDT [facility] RDW 13.5 11.5 - 14.5 % LAB HEMATOLOGY METHOD 03/26/2025 4:36 AM EDT [facility] MPV 11.4 8.8 - 12.5 fL LAB HEMATOLOGY METHOD 03/26/2025 4:36 AM EDT [facility] nRBC 0.4(H) <=0.0 per 100 WBCs LAB HEMATOLOGY METHOD 03/26/2025 4:36 AM EDT [facility] Blood Venous blood specimen / Unknown Venipuncture / Unknown 03/26/2025 3:50 AM EDT 03/26/2025 4:27 AM EDT us La Nena March APRN LAB BLOOD ORDERABLES Final Res ult [facility] [address] [place] [address] * (ABNORMAL) POCT glucose meter (03/25/2025 9:52 PM EDT) [facility] POCT Glucose 210(H) 74 - 99 mg/dL [...] Comment 03/25/2025 9:54 PM EDT [facility]ALTHCARE [facility] Cotton Classer Aide ID Zaida Stearns 03/25/20 9:54 PM EDT HEALTHCARE LAB Device ID [id number] 03/25/2025 9:54 PM EDT [facility] Specimen Type POC Capillary 03/25/2025 9:54 PM EDT [facility] Blood Capillary blood specimen / Unknown 03/25/2025 9:52 PM EDT 03/25/2025 9:54 PM EDT us Musa Rosado MD LAB POINT OF CARE TE ST DOCKED DEVICE UNSOLICITED RESULTS Final Result [facility] [address] [place] [address] * (ABNORMAL) POCT glucose meter (03/25/2025 5:01 PM EDT) [facility] POCT Glucose 214(H) 74 - 99 mg/dL [...] Comment 03/25/2025 5:02 PM EDT [facility]ALTHCARE [facility] Cotton Classer Aide ID Camille Espana 03/25/2025 5:02 PM EDT HEALTHCARE LAB Device ID [id number] 03/25/2025 5:02 PM EDT [facility]ALTH[facility]ARE [facility] Specimen Type POC Capillary 03/25/2025 5:02 PM EDT [facility] Blood Capillary blood specimen / Unknown 03/25/2025 5:01 PM EDT 03/25/2025 5:02 PM EDT Musa Rosado MD LAB POINT OF CARE TE ST DOCKED DEVICE UNSOLICITED RESULTS Final Result Performing Organization Address City/State/[facility] Co de Phone Number HEALTHCARE LAB [address] [place] [address] * (ABNORMAL) POCT glucose meter (03/25/2025 10:59 AM EDT) [facility] POCT Glucose 206(H) 74 - 99 mg/dL [...] 03/25/2025 11:00 AM EDT [facility] Cotton Classer Aide ID Camille Espana 03/25/2025 11:00 AM EDT [facility] Device ID [id number] 03/25/2025 11:00 AM EDT [facility] Specimen Type POC Capillary 03/25/2025 11:00 AM EDT [facility]ALTH[facility]ARE [facility] Blood Capillary blood specimen / Unknown 03/25/2025 10:59 AM EDT 03/25/2025 11:00 AM EDT Musa Rosado MD LAB POINT OF CARE TE ST DOCKED DEVICE UNSOLICITED RESULTS Final Result Performing Organization Address City/[facility] de Phone Number HEALTHCARE LAB [address] [place] [address] * (ABNORMAL) POCT glucose meter (03/25/2025 7:57 AM EDT) Pathologist [facility] POCT Glucose 198(H) 74 - 99 [...] Comment 03/25/2025 7:58 AM EDT [facility]ALTHCARE [facility] Cotton Classer Aide ID Camille Espana 03/25/2025 7:58 AM EDT HEALTHCARE LAB Device ID [id number] 03/25/2025 7:58 AM EDT [facility] Specimen Type POC Capillary 03/25/2025 7:58 AM EDT [facility] Blood Capillary blood specimen / Unknown 03/25/2025 7:57 AM EDT 03/25/2025 7:58 AM EDT Musa Rosado MD LAB POINT OF CARE TE ST DOCKED DEVICE UNSOLICITED RESULTS Final Result Performing Organization Address City/[facility]/ZIP Co de Phone Number [facility] [address] [place] [address] * (ABNORMAL) Phosphorus, Plasma (03/25/2025 4:07 AM EDT) Pathologist [facility] Phosphorus, Plasma 1.2(L) 2.5 - 4.5 mg/dL 03/25/2025 4:54 AM EDT [facility] Blood Venous blood specimen / Unknown Venipuncture / Unknown 03/25/2025 4:07 AM EDT 03/25/2025 4:20 AM EDT Musa Rosado MD LAB BLOOD ORDERABLES Final R esult Performing Organization Address City/[facility]/ZIP Co de Phone Number [facility] [address] [place] [address] * (ABNORMAL) Magnesium, Plasma (03/25/2025 4:07 AM EDT) Magnesium, Plasma 1.8(L) 1.9 - 2.4 mg/dL 03/25/2025 4:54 AM EDT [facility] Blood Venous blood specimen / Unknown Venipuncture / Unknown 03/25/2025 4:07 AM EDT 03/25/2025 4:20 AM EDT Musa Rosado MD LAB BLOOD ORDERABLES Final R esult Performing Organization Address [facility] de Phone Number [facility] [address] [place] [address] * (ABNORMAL) CBC (03/25/2025 4:07 AM EDT) WBC Count 6.01 3.70 - 10.30 10*3/uL LAB HEMATOLOGY METHOD 03/25/2025 4:30 AM EDT [facility] RBC Count 2.47(L) 4.60 - 6.10 10*6/uL LAB HEMATOLOGY METHOD 03/25/2025 4:30 AM EDT [facility] HGB 7.5(L) 13.7 - 17.5 g/dL LAB HEMATOLOGY METHOD 03/25/2025 4:30 AM EDT [facility] HCT 22.8(L) 40.0 - 51.0 % LAB HEMATOLOGY METHOD 03/25/2025 4:30 AM EDT [facility] Platelet Count 105(L) 155 - 369 10*3/uL LAB HEMATOLOGY METHOD 03/25/2025 4:30 AM EDT [facility] MCV 92 79 - 98 fL LAB HEMATOLOGY METHOD 03/25/2025 4:30 AM EDT [facility] MCH 30.4 26.0 - 32.0 pg LAB HEMATOLOGY METHOD 03/25/2025 4:30 AM EDT [facility] MCHC 32.9 30.7 - 35.5 g/dL LAB HEMATOLOGY METHOD 03/25/2025 4:30 AM EDT [facility] RDW 13.4 11.5 - 14.5 % LAB HEMATOLOGY METHOD 03/25/2025 4:30 AM EDT [facility] MPV 11.3 8.8 - 12.5 fL LAB HEMATOLOGY METHOD 03/25/2025 4:30 AM EDT [facility] nRBC 0.0 <=0.0 per 100 WBCs LAB HEMATOLOGY METHOD 03/25/2025 4:30 AM EDT [facility] Blood Venous blood specimen / Unknown Venipuncture / Unknown 03/25/2025 4:07 AM EDT 03/25/2025 4:23 AM EDT us Musa Rosado MD LAB BLOOD ORDERABLES Final R esult [facility] [address] [place] [address] * (ABNORMAL) Basic metabolic panel (03/25/2025 4:07 AM EDT) Glucose, Plasma 183(H) 74 - 99 mg/dL 03/25/2025 4:54 AM EDT [facility] BUN, Plasma 22(H) 7 - 21 mg/dL 03/25/2025 4:54 AM EDT [facility] Creatinine, Plasma 1.04 0.70 - 1.20 mg/dL 03/25/2025 4:54 AM EDT [facility] BUN/Creatinine Ratio 21 03/25/2025 4:54 AM EDT [facility] Sodium, Plasma 136 136 - 145 mmol/L 03/25/2025 4:54 AM EDT [facility] Potassium, Plasma 4.3 3.6 - 4.9 mmol/L 03/25/2025 4:54 AM EDT [facility] Chloride, Plasma 101 97 - 107 mmol/L 03/25/2025 4:54 AM EDT [facility] CO2, Plasma 26 22 - 29 mmol/L 03/25/2025 4:54 AM EDT [facility] Anion Gap 9 6 - 16 mmol/L 03/25/2025 4:54 AM EDT [facility] Total Calcium, Plasma 8.2(L) 8.9 - 10.2 mg/dL 03/25/2025 4:54 AM EDT [facility] eGFRcr 91.4 mL/min/1.7 3m*2 03/25/2025 4:54 AM EDT [facility] Comment:Reported eGFRcr in m L/min/1.73m2 is based the CKD-EPI 2020 equation that does not use a race coefficient. Blood Venous blood specimen / Unknown Venipuncture / Unknown 03/25/2025 4:07 AM EDT 03/25/2025 4:20 AM EDT us Musa Rosado MD LAB BLOOD ORDERABLES Final R esult Performing Organization Address City/State/[facility] Co de Phone Number [facility] [address] [place] [address] * XR Chest 1 View (03/25/2025 2:52 [...] POCT glucose meter (03/24/2025 9:05 PM EDT) [facility] POCT Glucose 182(H) 74 - 99 mg/dL [...] Comment 03/24/2025 9:06 PM EDT [facility]ALTHCARE [facility] Cotton Classer Aide ID [email or web address] 03/24/2025 9:06 PM EDT HEALTHCARE LAB Device ID [id number] 03/24/2025 9:06 PM EDT [facility]ALTH[facility]ARE LAB Specimen Type POC Capillary 03/24/2025 9:06 PM EDT [facility] Blood Capillary blood specimen / Unknown 03/24/2025 9:05 PM EDT 03/24/2025 9:06 PM EDT Musa Rosado MD LAB POINT OF CARE TE ST DOCKED DEVICE UNSOLICITED RESULTS Final Result [facility] [address] [place] [address] * (ABNORMAL) POCT glucose meter (03/24/2025 4:19 PM EDT) [facility] POCT Glucose 183(H) 74 - 99 mg/dL [...] Comment 03/24/2025 4:20 PM EDT [facility]ALTHCARE [facility] Cotton Classer Aide ID Beverly Alonso 03/24/2025 4:20 PM EDT HEALTHCARE LAB Device ID [id number] 03/24/2025 4:20 PM EDT [facility]ALTH[facility] Specimen Type POC Arterial 03/24/2025 4:20 PM EDT [facility] Blood Arterial blood specimen / Unknown 03/24/2025 4:19 PM EDT 03/24/2025 4:20 PM EDT Musa Rosado MD LAB POINT OF CARE TE ST DOCKED DEVICE UNSOLICITED RESULTS Final Result Performing Organization Address City/State/[facility] Co de Phone Number [facility]ARE [facility] [address] [place] [address] * (ABNORMAL) POCT glucose meter (03/24/2025 11:44 AM EDT) [facility] POCT Glucose 208(H) 74 - 99 mg/dL [...] Comment 03/24/2025 11:46 AM EDT [facility]ALTH[facility]ARE [facility] Cotton Classer Aide ID Beverly Alonso 03/24/2025 11:46 AM EDT HEALTHCARE LAB Device ID [id number] 03/24/2025 11:46 AM EDT [facility] Specimen Type POC Arterial 03/24/2025 11:46 AM EDT [facility] Blood Arterial blood specimen / Unknown 03/24/2025 11:44 AM EDT 03/24/2025 11:46 AM EDT us Musa Rosado MD LAB POINT OF CARE TE ST DOCKED DEVICE UNSOLICITED RESULTS Final Result [facility] [address] [place] [address] * [facility], E/M 30-74 MINUTES (03/24/2025 11:33 [...] POCT glucose meter (03/24/2025 7:45 AM EDT) [facility] POCT Glucose 208(H) 74 - 99 mg/dL [...] 03/24/2025 8:21 AM EDT [facility] Cotton Classer Aide ID Svetlana Alonsoth 03/24/2025 8:21 AM EDT [facility] Device ID [id number] 03/24/2025 8:21 AM EDT [facility]ALTH[facility]ARE [facility] Specimen Type POC Arterial 03/24/2025 8:21 AM EDT [facility] Blood Arterial blood specimen / Unknown 03/24/2025 7:45 AM EDT 03/24/2025 8:21 AM EDT Musa Rosado MD LAB POINT OF CARE TE ST DOCKED DEVICE UNSOLICITED RESULTS Final Result Performing Organization Address [facility] de Phone Number [facility]ALTHCARE [facility] [address] [place] [address] * (ABNORMAL) POCT glucose meter (03/24/2025 5:56 AM EDT) Pathologist [facility] POCT Glucose 146(H) 74 - 99 [...] Comment 03/24/2025 5:58 AM EDT [facility]ALTH[facility] Cotton Classer Aide ID Yuri Diggs 03/24/2025 5:58 AM EDT HEALTHCARE LAB Device ID [id number] 03/24/2025 5:58 AM EDT [facility]ALTH[facility]ARE [facility] Specimen Type POC Capillary 03/24/2025 5:58 AM EDT [facility] Blood Capillary blood specimen / Unknown 03/24/2025 5:56 AM EDT 03/24/2025 5:58 AM EDT us Musa Rosado MD LAB POINT OF CARE TE ST DOCKED DEVICE UNSOLICITED RESULTS Final Result Performing Organization Address City/[facility] de Phone Number [facility] [address] [place] [address] * (ABNORMAL) POCT glucose meter (03/24/2025 3:40 [...] Comment 03/24/2025 3:41 AM EDT [facility]ALTH[facility]ARE [facility] Cotton Classer Aide ID Yuri Diggs 03/24/2025 3:41 AM EDT [facility]ALTH[facility]ARE LAB Device ID [id number] 03/24/2025 3:41 AM EDT [facility] Specimen Type POC Capillary 03/24/2025 3:41 AM EDT [facility] Blood Capillary blood specimen / Unknown 03/24/2025 3:40 AM EDT 03/24/2025 3:41 AM EDT Musa Rosado MD LAB POINT OF CARE TE ST DOCKED DEVICE UNSOLICITED RESULTS Final Result Performing Organization Address City/State/[facility] Co de Phone Number [facility] [address] [place] [address] * XR Chest 1 View (03/24/2025 3:14 AM EDT) Anatomical Region Laterality Modality Chest Digital Radiogra phy Impressions 03/24/2025 9:52 AM EDT Interval removal of the Sims-Brea catheter. Otherwise no significant interval change. CRITICAL RESULT: No. COMMUNICATION: Per this written report. Drafted by Milli Elkins MD on 03/24/2025 9:51 AM Final report signed by Milli Elkins MD on 03/24/2025 9:52 AM Narrative 03/24/2025 9:52 AM EDT CLINICAL INDICATION: Post-Op Cardiac Surgery TECHNIQUE: Single AP view of chest. COMPARISON: One day prior FINDINGS: Interval removal of the Sims-Brea catheter. The rest of the portal hardware [...] day prior FINDINGS: Interval removal of the Sims-Brea catheter. The rest of the portalhardware unchanged. The cardiac and mediastinal contours are unchanged. Nosizable pneumothorax. Small left pleural effusion similar to prior.Persistent bilateral perihilar and bibasal lung opacities may representatelectasis. No new lung consolidation. Persistent low lung volume. IMPRESSION: Interval removal of the Sims-Brea catheter. Otherwise no significantinterval change. CRITICAL RESULT: [...] 03/24/2025 1:48 AM EDT [facility] Cotton Classer Aide ID Yuri Diggs 03/24/2025 1:48 AM EDT [facility] Device ID [id number] 03/24/2025 1:48 AM EDT HEALTHCARE LAB Specimen Type POC Capillary 03/24/2025 1:48 AM EDT [facility] Blood Capillary blood specimen / Unknown 03/24/2025 1:46 AM EDT 03/24/2025 1:48 AM EDT Musa Rosado MD LAB POINT OF CARE TE ST DOCKED DEVICE UNSOLICITED RESULTS Final Result [facility] [address] [place] [address] * (ABNORMAL) Blood gas, arterial (03/24/2025 12:08 AM EDT) pH, Arterial 7.42 7.35 - 7.45 LAB HEMATOLOGY METHOD 03/24/2025 12:18 AM EDT [facility] pCO2, Arterial 43 32 - 45 mmHg LAB HEMATOLOGY METHOD 03/24/2025 12:18 AM EDT [facility] pO2, Arterial 58(LL) 83 - 108 mmHg LAB HEMATOLOGY METHOD 03/24/2025 12:18 AM EDT [facility] SO2, Measured, Arterial 90(L) 94 - 98 % LAB HEMATOLOGY METHOD 03/24/2025 12:18 AM EDT [facility] Base Excess, Arterial 2.9 -2.0 - 3.0 mmol/L LAB HEMATOLOGY METHOD 03/24/2025 12:18 AM EDT [facility] Bicarbonate, Calculated, Arterial 28(H) 22 - 26 mmol/L LAB HEMATOLOGY METHOD 03/24/2025 12:18 AM EDT [facility] Hematocrit, Whole Blood 26.5(L) 40.0 - 51.0 % LAB HEMATOLOGY METHOD 03/24/2025 12:18 AM EDT [facility] Sodium, Whole Blood 138 136 - 145 mmol/L LAB HEMATOLOGY METHOD 03/24/2025 12:18 AM EDT [facility] Potassium, Whole Blood 4.2 3.6 - 4.9 mmol/L LAB HEMATOLOGY METHOD 03/24/2025 12:18 AM EDT [facility] Chloride, Whole Blood 104 97 - 107 mmol/L LAB HEMATOLOGY METHOD 03/24/2025 12:18 AM EDT [facility] Glucose, Whole Blood 161(H) 74 - 99 mg/dL LAB HEMATOLOGY METHOD 03/24/2025 12:18 AM EDT [facility] Ionized Calcium, Whole Blood 4.6 4.6 - 5.1 mg/dL LAB HEMATOLOGY METHOD 03/24/2025 12:18 AM EDT [facility] Lactate, Arterial, Whole Blood 1.1 0.5 - 1.6 mmol/L LAB HEMATOLOGY METHOD 03/24/2025 12:18 AM EDT [facility] Blood Arterial blood specimen / Unknown Arterial Puncture / Unknown 03/24/2025 12:08 AM EDT 03/24/2025 12:14 AM EDT Musa Rosado MD LAB BLOOD ORDERABLES Final R esult Performing Organization Address [facility]/ZIP Co de Phone Number [facility] [address] [place] [address] * (ABNORMAL) Phosphorus, Plasma (03/24/2025 12:07 AM EDT) Phosphorus, Plasma 2.1(L) 2.5 - 4.5 mg/dL 03/24/2025 12:44 AM EDT [facility] Blood Arterial blood specimen / Unknown Venipuncture / Unknown 03/24/2025 12:07 AM EDT 03/24/2025 12:16 AM EDT Musa Rosado MD LAB BLOOD ORDERABLES Final R esult Performing Organization Address [facility] Co de Phone Number [facility] [address] [place] [address] * Magnesium, Plasma (03/24/2025 12:07 AM EDT) Magnesium, Plasma 2.1 1.9 - 2.4 mg/dL 03/24/2025 12:44 AM EDT [facility] Blood Arterial blood specimen / Unknown Venipuncture / Unknown 03/24/2025 12:07 AM EDT 03/24/2025 12:16 AM EDT Musa Rosado MD LAB BLOOD ORDERABLES Final R esult Performing Organization Address City/[facility]/ZIP Co de Phone Number [facility] [address] [place] [address] * (ABNORMAL) CBC (03/24/2025 12:07 AM EDT) WBC Count 11.14(H) 3.70 - 10.30 10*3/uL LAB HEMATOLOGY METHOD 03/24/2025 12:26 AM EDT [facility] RBC Count 2.80(L) 4.60 - 6.10 10*6/uL LAB HEMATOLOGY METHOD 03/24/2025 12:26 AM EDT [facility] HGB 8.5(L) 13.7 - 17.5 g/dL LAB HEMATOLOGY METHOD 03/24/2025 12:26 AM EDT [facility] HCT 26.3(L) 40.0 - 51.0 % LAB HEMATOLOGY METHOD 03/24/2025 12:26 AM EDT [facility] Platelet Count 121(L) 155 - 369 10*3/uL LAB HEMATOLOGY METHOD 03/24/2025 12:26 AM EDT [facility] MCV 94 79 - 98 fL LAB HEMATOLOGY METHOD 03/24/2025 12:26 AM EDT [facility] MCH 30.4 26.0 - 32.0 pg LAB HEMATOLOGY METHOD 03/24/2025 12:26 AM EDT [facility] MCHC 32.3 30.7 - 35.5 g/dL LAB HEMATOLOGY METHOD 03/24/2025 12:26 AM EDT [facility] RDW 14.1 11.5 - 14.5 % LAB HEMATOLOGY METHOD 03/24/2025 12:26 AM EDT [facility] MPV 11.4 8.8 - 12.5 fL LAB HEMATOLOGY METHOD 03/24/2025 12:26 AM EDT [facility] nRBC 0.0 <=0.0 per 100 WBCs LAB HEMATOLOGY METHOD 03/24/2025 12:26 AM EDT [facility] Blood Arterial blood specimen / Unknown Venipuncture / Unknown 03/24/2025 12:07 AM EDT 03/24/2025 12:17 AM EDT us Musa Rosado MD LAB BLOOD ORDERABLES Final R esult [facility] [address] [place] [address] * (ABNORMAL) Basic metabolic panel (03/24/2025 12:07 AM EDT) [facility] Glucose, Plasma 164(H) 74 - 99 mg/dL 03/24/2025 12:44 AM EDT [facility] BUN, Plasma 21 7 - 21 mg/dL 03/24/2025 12:44 AM EDT [facility] Creatinine, Plasma 1.13 0.70 - 1.20 mg/dL 03/24/2025 12:44 AM EDT [facility] BUN/Creatinine Ratio 03/24/2025 12:44 AM EDT [facility] Sodium, Plasma 137 136 - 145 mmol/L 03/24/2025 12:44 AM EDT [facility] Potassium, Plasma 4.4 3.6 - 4.9 mmol/L 03/24/2025 12:44 AM EDT [facility] Chloride, Plasma 104 97 - 107 mmol/L 03/24/2025 12:44 AM EDT [facility] CO2, Plasma 25 22 - 29 mmol/L 03/24/2025 12:44 AM EDT [facility] Anion Gap 8 6 - 16 mmol/L 03/24/2025 12:44 AM EDT [facility] Total Calcium, Plasma 8.4(L) 8.9 - 10.2 mg/dL 03/24/2025 12:44 AM EDT [facility] eGFRcr 82.7 mL/min/1.7 3m*2 03/24/2025 12:44 AM EDT [facility] Comment:Reported eGFRcr in m L/min/1.73m2 is based the CKD-EPI 2020 equation that does not use a race coefficient. Blood Arterial blood specimen / Unknown Venipuncture / Unknown 03/24/2025 12:07 AM EDT 03/24/2025 12:16 AM EDT us Musa Rosado MD LAB BLOOD ORDERABLES Final R esult [facility] [address] [place] [address] * (ABNORMAL) POCT glucose meter (03/23/2025 9:43 PM EDT) POCT Glucose 176(H) 74 - 99 mg/dL 03/23/2025 9:44 PM EDT [facility] Comment:Accuracy of a glucos e [...] Comment 03/23/2025 9:44 PM EDT [facility] Cotton Classer Aide ID Yuri Diggs 03/23/2025 9:44 PM EDT [facility] LAB Device ID [id number] 03/23/2025 9:44 PM EDT [facility] Specimen Type POC Capillary 03/23/2025 9:44 PM EDT [facility] Blood Capillary blood specimen / Unknown 03/23/2025 9:43 PM EDT 03/23/2025 9:44 PM EDT Musa Rosado MD LAB POINT OF CARE TE ST DOCKED DEVICE UNSOLICITED RESULTS Final Result Performing Organization Address City/State/[facility] Co de Phone Number [facility] [address] [place] [address] * (ABNORMAL) POCT glucose meter (03/23/2025 7:55 PM EDT) [facility] POCT Glucose 140(H) 74 - 99 mg/dL [...] 03/23/2025 7:57 PM EDT [facility] Cotton Classer Aide ID Yuri Diggs 03/23/2025 7:57 PM EDT [facility] Device ID [id number] 03/23/2025 7:57 PM EDT [facility] Specimen Type POC Capillary 03/23/2025 7:57 PM EDT [facility] Blood Capillary blood specimen / Unknown 03/23/2025 7:55 PM EDT 03/23/2025 7:57 PM EDT us Musa Rosado MD LAB POINT OF CARE TE ST DOCKED DEVICE UNSOLICITED RESULTS Final Result [facility] [address] [place] [address] * (ABNORMAL) POCT glucose meter (03/23/2025 6:27 [...] for testing. Comment 03/23/2025 6:29 PM EDT [facility] Cotton Classer Aide ID Jose Alberto Collins 03/23/2025 6:29 PM EDT HEALTH[facility]ARE LAB Device ID [id number] 03/23/2025 6:29 PM EDT [facility] Specimen Type POC Arterial 03/23/2025 6:29 PM EDT [facility] Blood Arterial blood specimen / Unknown 03/23/2025 6:27 PM EDT 03/23/2025 6:29 PM EDT us Musa Rosado MD LAB POINT OF CARE TE ST DOCKED DEVICE UNSOLICITED RESULTS Final Result Performing Organization Address City/[facility]/ZIP Co de Phone Number [facility] [address] [place] [address] * (ABNORMAL) POCT glucose meter (03/23/2025 4:12 [...] Comment 03/23/2025 4:14 PM EDT [facility] Cotton Classer Aide ID Jose Alberto Collins 03/23/2025 4:14 PM EDT [facility] LAB Device ID [id number] 03/23/2025 4:14 PM EDT [facility] Specimen Type POC Arterial 03/23/2025 4:14 PM EDT [facility] Blood Arterial blood specimen / Unknown 03/23/2025 4:12 PM EDT 03/23/2025 4:14 PM EDT Musa Rosado MD LAB POINT OF CARE TE ST DOCKED DEVICE UNSOLICITED RESULTS Final Result Performing Organization Address City/[facility] Co de Phone Number [facility] [address] [place] [address] * (ABNORMAL) POCT glucose meter (03/23/2025 1:57 PM EDT) [facility] POCT Glucose 129(H) 74 - 99 mg/dL [...] Comment 03/23/2025 1:58 PM EDT [facility] Cotton Classer Aide ID Jose Alberto Collins 03/23/2025 1:58 PM EDT [facility] LAB Device ID [id number] 03/23/2025 1:58 PM EDT [facility] Specimen Type POC Arterial 03/23/2025 1:58 PM EDT [facility] Blood Arterial blood specimen / Unknown 03/23/2025 1:57 PM EDT 03/23/2025 1:58 PM EDT Musa Rosado MD LAB POINT OF CARE TE ST DOCKED DEVICE UNSOLICITED RESULTS Final Result Performing Organization Address City/[facility] Co de Phone Number [facility] [address] [place] [address] * [place] [facility], E/M 30-74 MINUTES (03/23/2025 12:34 [...] POCT glucose meter (03/23/2025 11:59 AM EDT) [facility] POCT Glucose 126(H) 74 - 99 mg/dL [...] for testing. Comment 03/23/2025 12:00 PM EDT [email or web address] Cotton Classer Aide ID Jose Alberto Collins 03/23/2025 12:00 PM EDT [email or web address] Device ID [id number] 03/23/2025 12:00 PM EDT [email or web address] Specimen Type POC Arterial 03/23/2025 12:00 PM EDT [email or web address] Blood Arterial blood specimen / Unknown 03/23/2025 11:59 AM EDT 03/23/2025 12:00 PM EDT us Musa Rosado MD LAB POINT OF CARE TE ST DOCKED DEVICE UNSOLICITED RESULTS Final Result [facility] [address] [place] [address] * (ABNORMAL) POCT glucose meter (03/23/2025 10:06 AM EDT) [facility] POCT Glucose 143(H) 74 - 99 mg/dL [...] Comment 03/23/2025 10:07 AM EDT [facility] Cotton Classer Aide ID Jose Alberto Collins 03/23/2025 10:07 AM EDT [facility] LAB Device ID [id number] 03/23/2025 10:07 AM EDT [facility] Specimen Type POC Arterial 03/23/2025 10:07 AM EDT [facility] Blood Arterial blood specimen / Unknown 03/23/2025 10:06 AM EDT 03/23/2025 10:07 AM EDT Musa Rosado MD LAB POINT OF CARE TE ST DOCKED DEVICE UNSOLICITED RESULTS Final Result [facility] [address] [place] [address] * (ABNORMAL) POCT glucose meter (03/23/2025 8:01 AM EDT) [facility] POCT Glucose 142(H) 74 - 99 mg/dL [...] 03/23/2025 8:03 AM EDT [facility] Cotton Classer Aide ID Jose Alberto Collins 03/23/2025 8:03 AM EDT [facility] Device ID [id number] 03/23/2025 8:03 AM EDT [facility] Specimen Type POC Arterial 03/23/2025 8:03 AM EDT [facility] Blood Arterial blood specimen / Unknown 03/23/2025 8:01 AM EDT 03/23/2025 8:03 AM EDT Musa Rosado MD LAB POINT OF CARE TE ST DOCKED DEVICE UNSOLICITED RESULTS Final Result [facility] [address] [place] [address] * (ABNORMAL) Blood gas panel, arterial (03/23/2025 6:18 AM EDT) pH, Arterial 7.39 7.35 - 7.45 LAB HEMATOLOGY METHOD 03/23/2025 6:31 AM EDT [facility] pCO2, Arterial 41 32 - 45 mmHg LAB HEMATOLOGY METHOD 03/23/2025 6:31 AM EDT [facility] pO2, Arterial 75(L) 83 - 108 mmHg LAB HEMATOLOGY METHOD 03/23/2025 6:31 AM EDT [facility] SO2, Measured, Arterial 94 94 - 98 % LAB HEMATOLOGY METHOD 03/23/2025 6:31 AM EDT [facility] Base Excess, Arterial -0.2 -2.0 - 3.0 mmol/L LAB HEMATOLOGY METHOD 03/23/2025 6:31 AM EDT [facility] Bicarbonate, Calculated, Arterial 25 22 - 26 mmol/L LAB HEMATOLOGY METHOD 03/23/2025 6:31 AM EDT [facility] Hematocrit, Whole Blood 28.9(L) 40.0 - 51.0 % LAB HEMATOLOGY METHOD 03/23/2025 6:31 AM EDT [facility] Sodium, Whole Blood 141 136 - 145 mmol/L LAB HEMATOLOGY METHOD 03/23/2025 6:31 AM EDT [facility] Potassium, Whole Blood 4.1 3.6 - 4.9 mmol/L LAB HEMATOLOGY METHOD 03/23/2025 6:31 AM EDT [facility] Chloride, Whole Blood 108(H) 97 - 107 mmol/L LAB HEMATOLOGY METHOD 03/23/2025 6:31 AM EDT [facility] Glucose, Whole Blood 162(H) 74 - 99 mg/dL LAB HEMATOLOGY METHOD 03/23/2025 6:31 AM EDT [facility] Ionized Calcium, Whole Blood 4.4(L) 4.6 - 5.1 mg/dL LAB HEMATOLOGY METHOD 03/23/2025 6:31 AM EDT [facility] Lactate, Arterial, Whole Blood 1.9(H) 0.5 - 1.6 mmol/L LAB HEMATOLOGY METHOD 03/23/2025 6:31 AM EDT [facility] Blood Arterial blood specimen / Unknown Arterial Puncture / Unknown 03/23/2025 6:18 AM EDT 03/23/2025 6:27 AM EDT us Musa Rosado MD LAB BLOOD ORDERABLES Final R esult [facility] [address] [place] [address] * (ABNORMAL) POCT glucose meter (03/23/2025 6:11 [...] Comment 03/23/2025 6:13 AM EDT [facility] Cotton Classer Aide ID Piya, Ojaswi 03/23/2025 6:13 AM EDT [facility] Device ID [id number] 03/23/2025 6:13 AM EDT [facility] Specimen Type POC Arterial 03/23/2025 6:13 AM EDT [facility] Blood Arterial blood specimen / Unknown 03/23/2025 6:11 AM EDT 03/23/2025 6:13 AM EDT us Musa Rosado MD LAB POINT OF CARE TE ST DOCKED DEVICE UNSOLICITED RESULTS Final Result Performing Organization Address City/[facility]/ZIP Co de Phone Number [facility] [address] [place] [address] * ECG Adult (03/23/2025 4:28 AM EDT) Pathologist [facility] EKG DIAGNOSIS CLASS Abnormal MUSE ECG Ventricular Rate 77 BPM MUSE ECG Atrial Rate 77 BPM MUSE ECG MT Interval 150 ms MUSE ECG QRSD Interval 78 ms MUSE ECG QT Interval 366 ms MUSE ECG QTC Interval 414 ms MUSE ECG P [place] 49 degrees MUSE ECG R [place] -7 degrees MUSE ECG T Wave [place] -4 degrees MUSE ECG Diagnosis Normal sinus rhythm MUSE ECG Diagnosis ST elevation, consider early repolarization , pericarditis, or injury MUSE ECG Diagnosis Nonspecific T wave abnormality MUSE ECG Diagnosis Need clinical information and correlation MUSE ECG Diagnosis MUSE ECG Diagnosis Confirmed by Jarett Steen ([id number]) on 03/23/2025 8:36:37 AM MUSE ECG 03/23/2025 4:28 AM EDT 03/23/2025 8:36 AM EDT Musa Rosado MD ECG ORDERABLES Final Result Performing Organization Address [facility] Co de Phone Number MUSE ECG * (ABNORMAL) POCT glucose meter (03/23/2025 3:59 AM EDT) [facility] POCT Glucose 162(H) 74 - 99 mg/dL [...] 03/23/2025 4:01 AM EDT [facility] Cotton Classer Aide ID [place] Ojaswi 03/23/2025 4:01 AM EDT [facility] Device ID [id number] 03/23/2025 4:01 AM EDT [facility] Specimen Type POC Arterial 03/23/2025 4:01 AM EDT [facility] Blood Arterial blood specimen / Unknown 03/23/2025 3:59 AM EDT 03/23/2025 4:01 AM EDT us Musa Rosado MD LAB POINT OF CARE TE ST DOCKED DEVICE UNSOLICITED RESULTS Final Result Performing Organization Address City/[facility]/ZIP Co de Phone Number [facility] [address] [place] [address] * Phosphorus, Plasma (03/23/2025 3:56 AM EDT) Phosphorus, Plasma 3.7 2.5 - 4.5 mg/dL 03/23/2025 4:40 AM EDT [facility] Blood Arterial blood specimen / Unknown Arterial Puncture / Unknown 03/23/2025 3:56 AM EDT 03/23/2025 4:12 AM EDT us Musa Rosado MD LAB BLOOD ORDERABLES Final R esult Performing Organization Address City/[facility]/ZIP Co de Phone Number [facility] [address] [place] [address] * Magnesium, Plasma (03/23/2025 3:56 AM EDT) Magnesium, Plasma 2.2 1.9 - 2.4 mg/dL 03/23/2025 4:40 AM EDT [facility] Blood Arterial blood specimen / Unknown Arterial Puncture / Unknown 03/23/2025 3:56 AM EDT 03/23/2025 4:12 AM EDT us Musa Rosado MD LAB BLOOD ORDERABLES Final R esult Performing Organization Address City/[facility]/ZIP Co de Phone Number [facility] [address] [place] [address] * (ABNORMAL) Basic metabolic panel (03/23/2025 3:56 AM EDT) Glucose, Plasma 159(H) 74 - 99 mg/dL 03/23/2025 4:40 AM EDT [facility] BUN, Plasma 18 7 - 21 mg/dL 03/23/2025 4:40 AM EDT [facility] Creatinine, Plasma 1.09 0.70 - 1.20 mg/dL 03/23/2025 4:40 AM EDT [facility] BUN/Creatinine Ratio 17 03/23/2025 4:40 AM EDT [facility] Sodium, Plasma 140 136 - 145 mmol/L 03/23/2025 4:40 AM EDT [facility] Potassium, Plasma 4.2 3.6 - 4.9 mmol/L 03/23/2025 4:40 AM EDT [facility] Chloride, Plasma 109(H) 97 - 107 mmol/L 03/23/2025 4:40 AM EDT [facility] CO2, Plasma 22 22 - 29 mmol/L 03/23/2025 4:40 AM EDT [facility] Anion Gap 9 6 - 16 mmol/L 03/23/2025 4:40 AM EDT [facility] Total Calcium, Plasma 8.4(L) 8.9 - 10.2 mg/dL 03/23/2025 4:40 AM EDT [facility] eGFRcr 86.4 mL/min/1.7 3m*2 03/23/2025 4:40 AM EDT [facility] Comment:Reported eGFRcr in m L/min/1.73m2 is based the CKD-EPI 2020 equation that does not use a race coefficient. Blood Arterial blood specimen / Unknown Arterial Puncture / Unknown 03/23/2025 3:56 AM EDT 03/23/2025 4:12 AM EDT us Musa Rosado MD LAB BLOOD ORDERABLES Final R esult [facility] [address] [place] [address] * (ABNORMAL) Blood gas, arterial (03/23/2025 3:56 AM EDT) pH, Arterial 7.40 7.35 - 7.45 LAB HEMATOLOGY METHOD 03/23/2025 4:11 AM EDT [facility] pCO2, Arterial 40 32 - 45 mmHg LAB HEMATOLOGY METHOD 03/23/2025 4:11 AM EDT [facility] pO2, Arterial 67(L) 83 - 108 mmHg LAB HEMATOLOGY METHOD 03/23/2025 4:11 AM EDT [facility] SO2, Measured, Arterial 92(L) 94 - 98 % LAB HEMATOLOGY METHOD 03/23/2025 4:11 AM EDT [facility] Base Excess, Arterial 0.0 -2.0 - 3.0 mmol/L LAB HEMATOLOGY METHOD 03/23/2025 4:11 AM EDT [facility] Bicarbonate, Calculated, Arterial 25 22 - 26 mmol/L LAB HEMATOLOGY METHOD 03/23/2025 4:11 AM EDT [facility] Hematocrit, Whole Blood 29.5(L) 40.0 - 51.0 % LAB HEMATOLOGY METHOD 03/23/2025 4:11 AM EDT [facility] Sodium, Whole Blood 142 136 - 145 mmol/L LAB HEMATOLOGY METHOD 03/23/2025 4:11 AM EDT [facility] Potassium, Whole Blood 4.1 3.6 - 4.9 mmol/L LAB HEMATOLOGY METHOD 03/23/2025 4:11 AM EDT [facility] Chloride, Whole Blood 108(H) 97 - 107 mmol/L LAB HEMATOLOGY METHOD 03/23/2025 4:11 AM EDT [facility] Glucose, Whole Blood 154(H) 74 - 99 mg/dL LAB HEMATOLOGY METHOD 03/23/2025 4:11 AM EDT [facility] Ionized Calcium, Whole Blood 4.4(L) 4.6 - 5.1 mg/dL LAB HEMATOLOGY METHOD 03/23/2025 4:11 AM EDT [facility] Lactate, Arterial, Whole Blood 1.8(H) 0.5 - 1.6 mmol/L LAB HEMATOLOGY METHOD 03/23/2025 4:11 AM EDT [facility] Blood Arterial blood specimen / Unknown Arterial Puncture / Unknown 03/23/2025 3:56 AM EDT 03/23/2025 4:09 AM EDT us Musa Rosado MD LAB BLOOD ORDERABLES Final R esult [facility] [address] [place] [address] * Potassium, Plasma (03/23/2025 3:56 AM EDT) Potassium, Plasma 4.2 3.6 - 4.9 mmol/L 03/23/2025 4:40 AM EDT [facility] Blood Arterial blood specimen / Unknown Arterial Puncture / Unknown 03/23/2025 3:56 AM EDT 03/23/2025 4:12 AM EDT us Musa Rosado MD LAB BLOOD ORDERABLES Final R esult [facility] [address] [place] [address] * (ABNORMAL) Blood gas panel with oximetry, mixed venous (03/23/2025 3:53 AM EDT) pH, Mixed Venous 7.37 7.32 - 7.43 LAB HEMATOLOGY METHOD 03/23/2025 4:11 AM EDT [facility] pCO2, Mixed Venous 46 40 - 55 mmHg LAB HEMATOLOGY METHOD 03/23/2025 4:11 AM EDT [facility] pO2, Mixed Venous 34 25 - 40 mmHg LAB HEMATOLOGY METHOD 03/23/2025 4:11 AM EDT [facility] SO2, Measured, Mixed Venous 63(L) 65 - 80 % LAB HEMATOLOGY METHOD 03/23/2025 4:11 AM EDT [facility] Bicarbonate, Calculated, Mixed Venous 26 22 - 26 mmol/L LAB HEMATOLOGY METHOD 03/23/2025 4:11 AM EDT [facility] Base Excess, Mixed Venous 0.4 -2.0 - 3.0 mmol/L LAB HEMATOLOGY METHOD 03/23/2025 4:11 AM EDT [facility] Hematocrit, Whole Blood 30.3(L) 40.0 - 51.0 % LAB HEMATOLOGY METHOD 03/23/2025 4:11 AM EDT [facility] Sodium, Whole Blood 142 136 - 145 mmol/L LAB HEMATOLOGY METHOD 03/23/2025 4:11 AM EDT [facility] Potassium, Whole Blood 4.0 3.6 - 4.9 mmol/L LAB HEMATOLOGY METHOD 03/23/2025 4:11 AM EDT [facility] Chloride, Whole Blood 109(H) 97 - 107 mmol/L LAB HEMATOLOGY METHOD 03/23/2025 4:11 AM EDT [facility] Ionized Calcium, Whole Blood 4.4(L) 4.6 - 5.1 mg/dL LAB HEMATOLOGY METHOD 03/23/2025 4:11 AM EDT [facility] Glucose, Whole Blood 152(H) 74 - 99 mg/dL LAB HEMATOLOGY METHOD 03/23/2025 4:11 AM EDT [facility] Oxyhemoglobin, Mixed Venous, Whole Blood 61.7 40.0 - 70.0 % LAB HEMATOLOGY METHOD 03/23/2025 4:11 AM EDT [facility] Hemoglobin Reduced, Mixed Venous, Whole Blood 36.7 % LAB HEMATOLOGY METHOD 03/23/2025 4:11 AM EDT [facility] Total Hemoglobin, Mixed Venous, Whole Blood 9.9(L) 13.7 - 17.5 g/dL LAB HEMATOLOGY METHOD 03/23/2025 4:11 AM EDT [facility] Blood Mixed venous blood specimen / Unknown Venipuncture / Unknown 03/23/2025 3:53 AM EDT 03/23/2025 4:09 AM EDT us Musa Rosado MD LAB BLOOD ORDERABLES Final R esult Performing Organization Address City/State/[facility] Co de Phone Number [facility] [address] [place] [address] * ECG Adult - POD 1 (03/23/2025 2:49 AM EDT) EKG DIAGNOSIS CLASS Abnormal MUSE ECG Ventricular Rate 76 BPM MUSE ECG Atrial Rate 76 BPM MUSE ECG MT Interval 118 ms MUSE ECG QRSD Interval 80 ms MUSE ECG QT Interval 362 ms MUSE ECG QTC Interval 407 ms MUSE ECG P [place] 46 degrees MUSE ECG R [place] -11 degrees MUSE ECG T Wave [place] -15 degrees MUSE ECG Diagnosis Poor data [...] MUSE ECG Diagnosis Confirmed by Jarett Steen ([id number]) on 03/23/2025 8:12:41 AM MUSE ECG 03/23/2025 [...] POCT glucose meter (03/23/2025 2:03 AM EDT) [facility] POCT Glucose 164(H) 74 - 99 mg/dL [...] Comment 03/23/2025 2:05 AM EDT [facility] Cotton Classer Aide ID Deangelo Haynesswi 03/23/2025 2:05 AM EDT [facility]ALTH[facility] LAB Device ID [id number] 03/23/2025 2:05 AM EDT [facility] Specimen Type POC Arterial 03/23/2025 2:05 AM EDT [facility] Blood Arterial blood specimen / Unknown 03/23/2025 2:03 AM EDT 03/23/2025 2:05 AM EDT us Musa Rosado MD LAB POINT OF CARE TE ST DOCKED DEVICE UNSOLICITED RESULTS Final Result Performing Organization Address City/[facility]/ZIP Co de Phone Number [facility] [address] [place] [address] * Potassium, Plasma (03/23/2025 12:14 AM EDT) [facility] Potassium, Plasma 4.4 3.6 - 4.9 mmol/L 03/23/2025 12:[address] [facility] Blood Arterial blood specimen / Unknown Arterial Puncture / Unknown 03/23/2025 12:14 AM EDT 03/23/2025 12:30 AM EDT Musa Rosado MD LAB BLOOD ORDERABLES Final R esult [facility] [address] [place] [address] * (ABNORMAL) CBC (03/23/2025 12:13 AM EDT) [facility] WBC Count 11.73(H) 3.70 - 10.30 10*3/uL LAB HEMATOLOGY METHOD 03/23/2025 12:42 AM EDT [facility] RBC Count 3.28(L) 4.60 - 6.10 10*6/uL LAB HEMATOLOGY METHOD 03/23/2025 12:42 AM EDT [facility] HGB 10.1(L) 13.7 - 17.5 g/dL LAB HEMATOLOGY METHOD 03/23/2025 12:42 AM EDT [facility] HCT 29.6(L) 40.0 - 51.0 % LAB HEMATOLOGY METHOD 03/23/2025 12:42 AM EDT [facility] Platelet Count 138(L) 155 - 369 10*3/uL LAB HEMATOLOGY METHOD 03/23/2025 12:42 AM EDT [facility] MCV 90 79 - 98 fL LAB HEMATOLOGY METHOD 03/23/2025 12:42 AM EDT [facility] MCH 30.8 26.0 - 32.0 pg LAB HEMATOLOGY METHOD 03/23/2025 12:42 AM EDT [facility] MCHC 34.1 30.7 - 35.5 g/dL LAB HEMATOLOGY METHOD 03/23/2025 12:42 AM EDT [facility] RDW 13.7 11.5 - 14.5 % LAB HEMATOLOGY METHOD 03/23/2025 12:42 AM EDT [facility] MPV 11.3 8.8 - 12.5 fL LAB HEMATOLOGY METHOD 03/23/2025 12:42 AM EDT [facility] nRBC 0.0 <=0.0 per 100 WBCs LAB HEMATOLOGY METHOD 03/23/2025 12:42 AM EDT [facility] Blood Arterial blood specimen / Unknown Arterial Puncture / Unknown 03/23/2025 12:13 AM EDT 03/23/2025 12:32 AM EDT us Musa Rosado MD LAB BLOOD ORDERABLES Final R esult [facility] [address] [place] [address] * (ABNORMAL) Hematocrit (03/23/2025 12:13 AM EDT) [facility] HCT 29.6(L) 40.0 - 51.0 % LAB HEMATOLOGY METHOD 03/23/2025 12:42 AM EDT [facility] Blood Arterial blood specimen / Unknown Arterial Puncture / Unknown 03/23/2025 12:13 AM EDT 03/23/2025 12:32 AM EDT Musa Rosado MD LAB BLOOD ORDERABLES Final R esult [facility] [address] [place] [address] * (ABNORMAL) POCT glucose meter (03/23/2025 12:10 AM EDT) [facility] POCT Glucose 168(H) 74 - 99 mg/dL [...] Comment 03/23/2025 12:11 AM EDT [facility] Cotton Classer Aide ID Kelly Haynes 03/23/2025 12:11 AM EDT [facility]ALTH[facility] LAB Device ID [id number] 03/23/2025 12:11 AM EDT [facility]ALTH[facility]ARE [facility] Specimen Type POC Arterial 03/23/2025 12:11 AM EDT [facility] Blood Arterial blood specimen / Unknown 03/23/2025 12:10 AM EDT 03/23/2025 12:11 AM EDT Musa Rosado MD LAB POINT OF CARE TE ST DOCKED DEVICE UNSOLICITED RESULTS Final Result Performing Organization Address City/[facility]/ZIP Co de Phone Number [facility] [address] [place] [address] * (ABNORMAL) Blood gas, arterial (03/23/2025 12:03 AM EDT) [facility] pH, Arterial 7.40 7.35 - 7.45 LAB HEMATOLOGY METHOD 03/23/2025 12:29 AM EDT [facility] pCO2, Arterial 38 32 - 45 mmHg LAB HEMATOLOGY METHOD 03/23/2025 12:29 AM EDT [facility] pO2, Arterial 158(H) 83 - 108 mmHg LAB HEMATOLOGY METHOD 03/23/2025 12:29 AM EDT [facility] SO2, Measured, Arterial 97 94 - 98 % LAB HEMATOLOGY METHOD 03/23/2025 12:29 AM EDT [facility] Base Excess, Arterial -0.9 -2.0 - 3.0 mmol/L LAB HEMATOLOGY METHOD 03/23/2025 12:29 AM EDT [facility] Bicarbonate, Calculated, Arterial 24 22 - 26 mmol/L LAB HEMATOLOGY METHOD 03/23/2025 12:29 AM EDT [facility] Hematocrit, Whole Blood 31.2(L) 40.0 - 51.0 % LAB HEMATOLOGY METHOD 03/23/2025 12:29 AM EDT [facility] Sodium, Whole Blood 141 136 - 145 mmol/L LAB HEMATOLOGY METHOD 03/23/2025 12:29 AM EDT [facility] Potassium, Whole Blood 4.2 3.6 - 4.9 mmol/L LAB HEMATOLOGY METHOD 03/23/2025 12:29 AM EDT [facility] Chloride, Whole Blood 110(H) 97 - 107 mmol/L LAB HEMATOLOGY METHOD 03/23/2025 12:29 AM EDT [facility] Glucose, Whole Blood 176(H) 74 - 99 mg/dL LAB HEMATOLOGY METHOD 03/23/2025 12:29 AM EDT [facility] Ionized Calcium, Whole Blood 4.4(L) 4.6 - 5.1 mg/dL LAB HEMATOLOGY METHOD 03/23/2025 12:29 AM EDT [facility] Lactate, Arterial, Whole Blood 2.5(H) 0.5 - 1.6 mmol/L LAB HEMATOLOGY METHOD 03/23/2025 12:29 AM EDT [facility] Blood Arterial blood specimen / Unknown Arterial Puncture / Unknown 03/23/2025 12:03 AM EDT 03/23/2025 12:24 AM EDT Musa Rosado MD LAB BLOOD ORDERABLES Final R esult Performing Organization Address City/[facility]/ZIP Co de Phone Number [facility] [address] [place] [address] * (ABNORMAL) POCT glucose meter (03/22/2025 10:59 PM EDT) [facility] POCT Glucose 181(H) 74 - 99 mg/dL [...] for testing. Comment 03/22/2025 11:00 PM EDT [facility] Cotton Classer Aide ID AyazlizKelly 03/22/2025 11:00 PM EDT [facility] Device ID [id number] 03/22/2025 11:00 PM EDT [facility] Specimen Type POC Arterial 03/22/2025 11:00 PM EDT [facility] Blood Arterial blood specimen / Unknown 03/22/2025 10:59 PM EDT 03/22/2025 11:00 PM EDT Musa Rosado MD LAB POINT OF CARE TE ST DOCKED DEVICE UNSOLICITED RESULTS Final Result Performing Organization Address [facility] Co de Phone Number [facility] [address] [place] [address] * (ABNORMAL) POCT glucose meter (03/22/2025 10:40 PM EDT) [facility] POCT Glucose 184(H) 74 - 99 mg/dL [...] Comment 03/22/2025 10:41 PM EDT [facility] Cotton Classer Aide ID Kelly Haynes 03/22/2025 10:41 PM EDT [facility] Device ID [id number] 03/22/2025 10:41 PM EDT [facility] Specimen Type POC Arterial 03/22/2025 10:41 PM EDT [facility] Blood Arterial blood specimen / Unknown 03/22/2025 10:40 PM EDT 03/22/2025 10:41 PM EDT Musa Rosado MD LAB POINT OF CARE TE ST DOCKED DEVICE UNSOLICITED RESULTS Final Result Performing Organization Address City/[facility] Co de Phone Number [facility] [address] [place] [address] * (ABNORMAL) POCT glucose meter (03/22/2025 8:21 PM EDT) [facility] POCT Glucose 207(H) 74 - 99 mg/dL [...] Comment 03/22/2025 8:22 PM EDT [facility] Cotton Classer Aide ID Kelly Haynes 03/22/2025 8:22 PM EDT [facility] Device ID [id number] 03/22/2025 8:22 PM EDT [facility] Specimen Type POC Arterial 03/22/2025 8:22 PM EDT [facility] Blood Arterial blood specimen / Unknown 03/22/2025 8:21 PM EDT 03/22/2025 8:22 PM EDT Musa Rosado MD LAB POINT OF CARE TE ST DOCKED DEVICE UNSOLICITED RESULTS Final Result Performing Organization Address City/[facility]/ZIP Co de Phone Number [facility] [address] [place] [address] * (ABNORMAL) Blood gas, arterial (03/22/2025 8:17 PM EDT) pH, Arterial 7.37 7.35 - 7.45 LAB HEMATOLOGY METHOD 03/22/2025 8:29 PM EDT [facility] pCO2, Arterial 42 32 - 45 mmHg LAB HEMATOLOGY METHOD 03/22/2025 8:29 PM EDT [facility] pO2, Arterial 89 83 - 108 mmHg LAB HEMATOLOGY METHOD 03/22/2025 8:29 PM EDT [facility] SO2, Measured, Arterial 95 94 - 98 % LAB HEMATOLOGY METHOD 03/22/2025 8:29 PM EDT [facility] Base Excess, Arterial -0.9 -2.0 - 3.0 mmol/L LAB HEMATOLOGY METHOD 03/22/2025 8:29 PM EDT [facility] Bicarbonate, Calculated, Arterial 24 22 - 26 mmol/L LAB HEMATOLOGY METHOD 03/22/2025 8:29 PM EDT [facility] Hematocrit, Whole Blood 31.8(L) 40.0 - 51.0 % LAB HEMATOLOGY METHOD 03/22/2025 8:29 PM EDT [facility] Sodium, Whole Blood 141 136 - 145 mmol/L LAB HEMATOLOGY METHOD 03/22/2025 8:29 PM EDT [facility] Potassium, Whole Blood 4.1 3.6 - 4.9 mmol/L LAB HEMATOLOGY METHOD 03/22/2025 8:29 PM EDT [facility] Chloride, Whole Blood 110(H) 97 - 107 mmol/L LAB HEMATOLOGY METHOD 03/22/2025 8:29 PM EDT [facility] Glucose, Whole Blood 217(H) 74 - 99 mg/dL LAB HEMATOLOGY METHOD 03/22/2025 8:29 PM EDT [facility] Ionized Calcium, Whole Blood 4.4(L) 4.6 - 5.1 mg/dL LAB HEMATOLOGY METHOD 03/22/2025 8:29 PM EDT [facility] Lactate, Arterial, Whole Blood 2.1(H) 0.5 - 1.6 mmol/L LAB HEMATOLOGY METHOD 03/22/2025 8:29 PM EDT [facility] Blood Arterial blood specimen / Unknown Arterial Puncture / Unknown 03/22/2025 8:17 PM EDT 03/22/2025 8:27 PM EDT Musa Rosado MD LAB BLOOD ORDERABLES Final R esult Performing Organization Address [facility]/[place] [address] * (ABNORMAL) Phosphorus (03/22/2025 8:14 PM EDT) Phosphorus, Plasma 1.6(L) 2.5 - 4.5 mg/dL 03/22/2025 8:55 PM EDT [facility] Blood Arterial blood specimen / Unknown Arterial Puncture / Unknown 03/22/2025 8:14 PM EDT 03/22/2025 8:28 PM EDT Musa Rosado MD LAB BLOOD ORDERABLES Final R esult Performing Organization Address [facility] [place] [address] * (ABNORMAL) Hematocrit (03/22/2025 8:14 PM EDT) HCT 30.1(L) 40.0 - 51.0 % LAB HEMATOLOGY METHOD 03/22/2025 8:35 PM EDT [facility] Blood Arterial blood specimen / Unknown Arterial Puncture / Unknown 03/22/2025 8:14 PM EDT 03/22/2025 8:28 PM EDT Musa Rosado MD LAB BLOOD ORDERABLES Final R esult Performing Organization Address City/[facility]/ZIP Co de Phone Number [facility] [address] [place] [address] * (ABNORMAL) Hemoglobin (03/22/2025 8:14 PM EDT) HGB 10.4(L) 13.7 - 17.5 g/dL LAB HEMATOLOGY METHOD 03/22/2025 8:35 PM EDT [facility] Blood Arterial blood specimen / Unknown Arterial Puncture / Unknown 03/22/2025 8:14 PM EDT 03/22/2025 8:28 PM EDT us Musa Rosado MD LAB BLOOD ORDERABLES Final R esult Performing Organization Address City/[facility]/ZIP Co de Phone Number [facility] [address] [place] [address] * Potassium, Plasma (03/22/2025 8:14 PM EDT) Potassium, Plasma 4.2 3.6 - 4.9 mmol/L 03/22/2025 8:55 PM EDT [facility] Blood Arterial blood specimen / Unknown Arterial Puncture / Unknown 03/22/2025 8:14 PM EDT 03/22/2025 8:28 PM EDT us Musa Rosado MD LAB BLOOD ORDERABLES Final R esult Performing Organization Address [facility] Co de Phone Number [facility] [address] [place] [address] * (ABNORMAL) Blood gas panel, arterial (03/22/2025 5:44 PM EDT) pH, Arterial 7.36 7.35 - 7.45 LAB HEMATOLOGY METHOD 03/22/2025 5:55 PM EDT [facility] pCO2, Arterial 41 32 - 45 mmHg LAB HEMATOLOGY METHOD 03/22/2025 5:55 PM EDT [facility] pO2, Arterial 107 83 - 108 mmHg LAB HEMATOLOGY METHOD 03/22/2025 5:55 PM EDT [facility] SO2, Measured, Arterial 98 94 - 98 % LAB HEMATOLOGY METHOD 03/22/2025 5:55 PM EDT [facility] Base Excess, Arterial -2.2(L) -2.0 - 3.0 mmol/L LAB HEMATOLOGY METHOD 03/22/2025 5:55 PM EDT [facility] Bicarbonate, Calculated, Arterial 23 22 - 26 mmol/L LAB HEMATOLOGY METHOD 03/22/2025 5:55 PM EDT [facility] Hematocrit, Whole Blood 33.7(L) 40.0 - 51.0 % LAB HEMATOLOGY METHOD 03/22/2025 5:55 PM EDT [facility] Sodium, Whole Blood 142 136 - 145 mmol/L LAB HEMATOLOGY METHOD 03/22/2025 5:55 PM EDT [facility] Potassium, Whole Blood 4.1 3.6 - 4.9 mmol/L LAB HEMATOLOGY METHOD 03/22/2025 5:55 PM EDT [facility] Chloride, Whole Blood 111(H) 97 - 107 mmol/L LAB HEMATOLOGY METHOD 03/22/2025 5:55 PM EDT [facility] Glucose, Whole Blood 206(H) 74 - 99 mg/dL LAB HEMATOLOGY METHOD 03/22/2025 5:55 PM EDT [facility] Ionized Calcium, Whole Blood 4.3(L) 4.6 - 5.1 mg/dL LAB HEMATOLOGY METHOD 03/22/2025 5:55 PM EDT [facility] Lactate, Arterial, Whole Blood 2.3(H) 0.5 - 1.6 mmol/L LAB HEMATOLOGY METHOD 03/22/2025 5:55 PM EDT [facility] Blood Arterial blood specimen / Unknown Arterial Puncture / Unknown 03/22/2025 5:44 PM EDT 03/22/2025 5:53 PM EDT us Musa Rosado MD LAB BLOOD ORDERABLES Final R esult [facility] [address] [place] [address] * XR Chest 1 View (03/22/2025 4:46 [...] above the freddie. Right internal jugular approach Sims-Brea catheter with tip over the proximal right pulmonary artery. Mediastinal drain and bilateral chest tubes in place. Low lung volumes. Pulmonary vascular congestion. No pneumothorax. Interval median sternotomy and CABG. Procedure Note Carmencita Aponte MD - 03/22/2025 CLINICAL INDICATION: Post-Op Cardiac Surgery TECHNIQUE: XR CHEST 1 VIEW COMPARISON: 03/21/2025 FINDINGS: Endotracheal tube tip 6.5 cm above the freddie. Right internal jugularapproach Sims-Brea catheter with tip over the proximal right [...] IMG XR PROCEDURES Final Resu lt * [facility], E/M 30-74 MINUTES (03/22/2025 4:38 [...] ECG Atrial Rate 73 BPM MUSE ECG MT Interval 140 ms MUSE ECG QRSD Interval 86 ms MUSE ECG QT Interval 396 ms MUSE ECG QTC Interval 436 ms MUSE ECG P [place] 66 degrees MUSE ECG R [place] 26 degrees MUSE ECG T Wave [place] 52 degrees MUSE ECG Diagnosis Normal sinus rhythm MUSE ECG Diagnosis ST elevation, consider early repolarization , pericarditis, or injury MUSE ECG Diagnosis Need clinical information and correlation MUSE ECG Diagnosis MUSE ECG Diagnosis Confirmed by Jarett Steen ([id number]) on 03/22/2025 7:45:24 PM MUSE ECG 03/22/2025 4:10 PM EDT 03/22/2025 7:45 PM EDT us Musa Rosado MD ECG ORDERABLES Final Result MUSE ECG * (ABNORMAL) Blood gas, arterial - Post extubation (03/22/2025 3:52 PM EDT) pH, Arterial 7.35 7.35 - 7.45 LAB HEMATOLOGY METHOD 03/22/2025 4:33 PM EDT [facility] pCO2, Arterial 44 32 - 45 mmHg LAB HEMATOLOGY METHOD 03/22/2025 4:33 PM EDT [facility] pO2, Arterial 127(H) 83 - 108 mmHg LAB HEMATOLOGY METHOD 03/22/2025 4:33 PM EDT [facility] SO2, Measured, Arterial 99(H) 94 - 98 % LAB HEMATOLOGY METHOD 03/22/2025 4:33 PM EDT [facility] Base Excess, Arterial -1.9 -2.0 - 3.0 mmol/L LAB HEMATOLOGY METHOD 03/22/2025 4:33 PM EDT [facility] Bicarbonate, Calculated, Arterial 24 22 - 26 mmol/L LAB HEMATOLOGY METHOD 03/22/2025 4:33 PM EDT [facility] Hematocrit, Whole Blood 35.2(L) 40.0 - 51.0 % LAB HEMATOLOGY METHOD 03/22/2025 4:33 PM EDT [facility] Sodium, Whole Blood 142 136 - 145 mmol/L LAB HEMATOLOGY METHOD 03/22/2025 4:33 PM EDT [facility] Potassium, Whole Blood 3.8 3.6 - 4.9 mmol/L LAB HEMATOLOGY METHOD 03/22/2025 4:33 PM EDT [facility] Chloride, Whole Blood 112(H) 97 - 107 mmol/L LAB HEMATOLOGY METHOD 03/22/2025 4:33 PM EDT [facility] Glucose, Whole Blood 184(H) 74 - 99 mg/dL LAB HEMATOLOGY METHOD 03/22/2025 4:33 PM EDT [facility] Ionized Calcium, Whole Blood 4.4(L) 4.6 - 5.1 mg/dL LAB HEMATOLOGY METHOD 03/22/2025 4:33 PM EDT [facility] Lactate, Arterial, Whole Blood 2.6(H) 0.5 - 1.6 mmol/L LAB HEMATOLOGY METHOD 03/22/2025 4:33 PM EDT [facility] Blood Arterial blood specimen / Unknown Arterial Puncture / Unknown 03/22/2025 3:52 PM EDT 03/22/2025 4:31 PM EDT us Musa Rosado MD LAB BLOOD ORDERABLES Final R esult [facility] [address] [place] [address] * Denise auris Surveillance by PCR (03/22/2025 3:52 PM EDT) Denise auris PCR Result Not Detected Not Detected 03/23/2025 12:49 PM EDT [facility] Swab (Axilla and Groin) Non-blood Collection / Unknown 03/22/2025 3:52 PM EDT 03/22/2025 4:37 PM EDT Narrative [facility] - 03/23/2025 12:49 PM EDT This PCR assay was developed and its performance characteristics determined by [facility] as appropriate for clinical purposes. This assay has not been cleared or approved by the FDA, but is performed in a CLIA regulated laboratory that is qualified to perform high-complexity testing. us Musa Rosado MD LAB MICROBIOLOGY - GENERAL O RDERABLES Final Result Performing Organization Address [facility] Co de Phone Number [facility] [address] [place] [address] * Multi Drug Resistance Test (03/22/2025 3:52 PM EDT) Pathologist [facility] Culture No growth at day 1 03/24/2025 7:31 AM EDT [facility] Swab (Nares and Lisa Rectal) Non-blood Collection / Unknown 03/22/2025 3:52 PM EDT 03/22/2025 4:37 PM EDT Narrative [facility] - 03/24/2025 7:31 AM EDT This test was developed and its performance characteristics determined by the [facility]. Although the media is FDA-approved, it is not FDA-approved for all specimen types submitted. The FDA has determined that such clearance or approval is not necessary. This test is used for surveillance purposes. It should not be regarded as investigational or for research. The [facility] is certified under the Clinical Laboratory Improvement Amendments of 1988 (CLIA-88) as qualified to perform high complexity clinical laboratory testing. us Musa Rosado MD LAB MICROBIOLOGY - GENERAL O RDERABLES Final Result Performing Organization Address [facility] Co de Phone Number [facility] [address] [place] [address] * APTT (03/22/2025 3:52 PM EDT) Pathologist [facility] aPTT 28 25 - 35 sec LAB COAGULATION METHOD 03/22/2025 5:08 PM EDT [facility] Blood Venous blood specimen / Unknown Venipuncture / Unknown 03/22/2025 3:52 PM EDT 03/22/2025 4:45 PM EDT us Musa Rosado MD LAB BLOOD ORDERABLES Final R esult Performing Organization Address [facility]/ZIP Co de Phone Number [facility] [address] [place] [address] * (ABNORMAL) Protime-INR (03/22/2025 3:52 PM EDT) [facility] Signature Prothrombin Time 17.0(H) 12.0 - 14.3 sec LAB COAGULATION METHOD 03/22/2025 5:08 PM EDT [facility] INR 1.4(H) 0.9 - 1.1 LAB COAGULATION METHOD 03/22/2025 5:08 PM EDT [facility] Blood Venous blood specimen / Unknown Venipuncture / Unknown 03/22/2025 3:52 PM EDT 03/22/2025 4:45 PM EDT Narrative [facility] - 03/22/2025 5:08 PM EDT OPTIMAL INR RANGES FOR PATIENT ON ORAL ANTICOAGULANT THERAPY Prevention of venous thromboembolism INR 2.0 to 3.0 In patients with heart disease: Atrial fibrillation INR 2.0 to 3.0 Valvular heart disease INR 2.0 to 3.0 Tissue heart valves INR 2.0 to 3.0 Mechanical prosthetic valves INR 2.5 to 3.5 Prevention of recurrent GA INR 2.5 to 3.5 us Musa Rosado MD LAB BLOOD ORDERABLES Final R esult Performing Organization Address City/[facility]/ZIP Co de Phone Number [facility] [address] [place] [address] * (ABNORMAL) Phosphorus (03/22/2025 3:52 PM EDT) [facility] Phosphorus, Plasma 1.0(LL) 2.5 - 4.5 mg/dL 03/22/2025 5:13 PM EDT [facility] Blood Venous blood specimen / Unknown Venipuncture / Unknown 03/22/2025 3:52 PM EDT 03/22/2025 4:45 PM EDT us Musa Rosado MD LAB BLOOD ORDERABLES Final R esult [facility] [address] [place] [address] * (ABNORMAL) Magnesium (03/22/2025 3:52 PM EDT) Magnesium, Plasma 3.1(H) 1.9 - 2.4 mg/dL 03/22/2025 5:13 PM EDT [facility] Blood Venous blood specimen / Unknown Venipuncture / Unknown 03/22/2025 3:52 PM EDT 03/22/2025 4:45 PM EDT us Musa Rosado MD LAB BLOOD ORDERABLES Final R esult [facility] [address] [place] [address] * (ABNORMAL) Basic metabolic panel (03/22/2025 3:52 PM EDT) Glucose, Plasma 188(H) 74 - 99 mg/dL 03/22/2025 5:13 PM EDT [facility] BUN, Plasma 17 7 - 21 mg/dL 03/22/2025 5:13 PM EDT [facility] Creatinine, Plasma 1.19 0.70 - 1.20 mg/dL 03/22/2025 5:13 PM EDT [facility] BUN/Creatinine Ratio 14 03/22/2025 5:13 PM EDT [facility] Sodium, Plasma 142 136 - 145 mmol/L 03/22/2025 5:13 PM EDT [facility] Potassium, Plasma 4.1 3.6 - 4.9 mmol/L 03/22/2025 5:13 PM EDT [facility] Chloride, Plasma 111(H) 97 - 107 mmol/L 03/22/2025 5:13 PM EDT [facility] CO2, Plasma 21(L) 22 - 29 mmol/L 03/22/2025 5:13 PM EDT [facility] Anion Gap 10 6 - 16 mmol/L 03/22/2025 5:13 PM EDT [facility] Total Calcium, Plasma 7.7(L) 8.9 - 10.2 mg/dL 03/22/2025 5:13 PM EDT [facility] eGFRcr 77.7 mL/min/1.7 3m*2 03/22/2025 5:13 PM EDT [facility] Comment:Reported eGFRcr in m L/min/1.73m2 is based the CKD-EPI 2020 equation that does not use a race coefficient. Blood Venous blood specimen / Unknown Venipuncture / Unknown 03/22/2025 3:52 PM EDT 03/22/2025 4:45 PM EDT us Musa Rosado MD LAB BLOOD ORDERABLES Final R esult [facility] [address] [place] [address] * (ABNORMAL) CBC (03/22/2025 3:52 PM EDT) WBC Count 16.63(H) 3.70 - 10.30 10*3/uL LAB HEMATOLOGY METHOD 03/22/2025 4:48 PM EDT [facility] RBC Count 3.77(L) 4.60 - 6.10 10*6/uL LAB HEMATOLOGY METHOD 03/22/2025 4:48 PM EDT [facility] HGB 11.4(L) 13.7 - 17.5 g/dL LAB HEMATOLOGY METHOD 03/22/2025 4:48 PM EDT [facility] HCT 33.7(L) 40.0 - 51.0 % LAB HEMATOLOGY METHOD 03/22/2025 4:48 PM EDT [facility] Platelet Count 159 155 - 369 10*3/uL LAB HEMATOLOGY METHOD 03/22/2025 4:48 PM EDT [facility] MCV 89 79 - 98 fL LAB HEMATOLOGY METHOD 03/22/2025 4:48 PM EDT [facility] MCH 30.2 26.0 - 32.0 pg LAB HEMATOLOGY METHOD 03/22/2025 4:48 PM EDT [facility] MCHC 33.8 30.7 - 35.5 g/dL LAB HEMATOLOGY METHOD 03/22/2025 4:48 PM EDT [facility] RDW 13.4 11.5 - 14.5 % LAB HEMATOLOGY METHOD 03/22/2025 4:48 PM EDT [facility] MPV 11.0 8.8 - 12.5 fL LAB HEMATOLOGY METHOD 03/22/2025 4:48 PM EDT [facility] nRBC 0.0 <=0.0 per 100 WBCs LAB HEMATOLOGY METHOD 03/22/2025 4:48 PM EDT [facility] Blood Venous blood specimen / Unknown Venipuncture / Unknown 03/22/2025 3:52 PM EDT 03/22/2025 4:42 PM EDT us Musa Rosado MD LAB BLOOD ORDERABLES Final R esult [facility] [address] [place] [address] * (ABNORMAL) POCT arterial blood gas gem (03/22/2025 3:29 PM EDT) pH, Arterial 7.36 7.35 - 7.45 03/22/2025 3:41 PM EDT [facility] pCO2, Arterial 42 32 - 45 mm Hg 03/22/2025 3:41 PM EDT [facility] pO2, Arterial 150(H) 83 - 108 mm Hg 03/22/2025 3:41 PM EDT [facility] SO2, Arterial 98 94 - 98 % 03/22/2025 3:41 PM EDT [facility] Base Excess, Arterial -1.7 -2 - 3 mmol/L 03/22/2025 3:41 PM EDT [facility] HCO3, Arterial 23.7 22 - 26 mmol/L 03/22/2025 3:41 PM EDT [facility] Total Hemoglobin, Arterial, Whole Blood 11.2(L) 13.7 - 17.5 g/dL 03/22/2025 3:41 PM EDT [facility] Hematocrit, Arterial 34.0(L) 40 - 51.0 % 03/22/2025 3:41 PM EDT [facility] Sodium, Arterial 141 136 - 145 mmol/L 03/22/2025 3:41 PM EDT [facility] Potassium, Arterial 3.8 3.6 - 4.9 mmol/L 03/22/2025 3:41 PM EDT [facility] Chloride, Whole Blood 109(H) 97 - 107 mmol/L 03/22/2025 3:41 PM EDT [facility] Glucose, Arterial 192(H) 74 - 99 mg/dL 03/22/2025 3:41 PM EDT [facility] Ionized Calcium, Arterial 4.6 4.6 - 5.1 mg/dL 03/22/2025 3:41 PM EDT [facility] Lactate, Arterial 2.0(H) 0.5 - 1.6 mmol/L 03/22/2025 3:41 PM EDT [facility] Body Temperature 37.0 Celsius 03/22/2025 3:41 PM EDT [facility] pH, Temp Corrected, Arterial 7.36 7.35 - 7.45 03/22/2025 3:41 PM EDT [facility] pCO2, Temp Corrected, Arterial 42 32 - 45 mm Hg 03/22/2025 3:41 PM EDT [facility] pO2, Temp Corrected, Arterial 150(H) 83 - 108 mm Hg 03/22/2025 3:41 PM EDT [facility] Cotton Classer Aide ID Ludin Aguiar 03/22/2025 3:41 PM EDT [facility] Blood, Arterial Whole blood specimen / Unknown 03/22/2025 3:29 PM EDT 03/22/2025 3:41 PM EDT Musa Rosado MD LAB POINT OF CARE TE ST DOCKED DEVICE UNSOLICITED RESULTS Final Result [facility] [address] [place] [address] * (ABNORMAL) POCT arterial blood gas gem (03/22/2025 2:44 PM EDT) pH, Arterial 7.33(L) 7.35 - 7.45 03/22/2025 2:51 PM EDT [facility] pCO2, Arterial 46(H) 32 - 45 mm Hg 03/22/2025 2:51 PM EDT [facility] pO2, Arterial 182(H) 83 - 108 mm Hg 03/22/2025 2:51 PM EDT [facility] SO2, Arterial 97 94 - 98 % 03/22/2025 2:51 PM EDT [facility] Base Excess, Arterial -1.8 -2 - 3 mmol/L 03/22/2025 2:51 PM EDT [facility] HCO3, Arterial 24.3 22 - 26 mmol/L 03/22/2025 2:51 PM EDT [facility] Total Hemoglobin, Arterial, Whole Blood 10.8(L) 13.7 - 17.5 g/dL 03/22/2025 2:51 PM EDT [facility] Hematocrit, Arterial 32.0(L) 40 - 51.0 % 03/22/2025 2:51 PM EDT [facility] Sodium, Arterial 141 136 - 145 mmol/L 03/22/2025 2:51 PM EDT [facility] Potassium, Arterial 3.8 3.6 - 4.9 mmol/L 03/22/2025 2:51 PM EDT [facility] Chloride, Whole Blood 111(H) 97 - 107 mmol/L 03/22/2025 2:51 PM EDT [facility] Glucose, Arterial 187(H) 74 - 99 mg/dL 03/22/2025 2:51 PM EDT [facility] Ionized Calcium, Arterial 4.7 4.6 - 5.1 mg/dL 03/22/2025 2:51 PM EDT [facility] Lactate, Arterial 1.8(H) 0.5 - 1.6 mmol/L 03/22/2025 2:51 PM EDT [facility] Body Temperature 37.0 Celsius 03/22/2025 2:51 PM EDT [facility] pH, Temp Corrected, Arterial 7.33(L) 7.35 - 7.45 03/22/2025 2:51 PM EDT [facility] pCO2, Temp Corrected, Arterial 46(H) 32 - 45 mm Hg 03/22/2025 2:51 PM EDT [facility] pO2, Temp Corrected, Arterial 182(H) 83 - 108 mm Hg 03/22/2025 2:51 PM EDT [facility] Cotton Classer Aide ID Ludin Aguiar 03/22/2025 2:51 PM EDT [facility] Blood, Arterial Whole blood specimen / Unknown 03/22/2025 2:44 PM EDT 03/22/2025 2:51 PM EDT us Musa Rosado MD LAB POINT OF CARE TE ST DOCKED DEVICE UNSOLICITED RESULTS Final Result [facility] [address] [place] [id number] * QPLUS (03/22/2025 2:24 PM EDT) Clot [...] - 29.8 hectoPascals 03/22/2025 2:38 PM EDT [facility] Fibrinogen Contribution to Clot Stiffness 1.8 1.0 - 3.7 hectoPascals 03/22/2025 2:38 PM [facility]T [facility] Heparinase Clot Time 126 103 - 153 Seconds 03/22/2025 2:38 PM EDT [facility] Cotton Classer Aide ID Ludin Aguiar 03/22/2025 2:38 PM EDT [facility] Device ID [id number] 03/22/2025 2:38 PM EDT [facility] Whole Blood 03/22/2025 2:24 PM EDT 03/22/2025 2:38 PM EDT Musa Rosado MD LAB POINT OF CARE TE ST DOCKED DEVICE UNSOLICITED RESULTS Final Result [facility] [address] [place] [address] * (ABNORMAL) POCT arterial blood gas gem (03/22/2025 2:10 PM EDT) pH, Arterial 7.34(L) 7.35 - 7.45 03/22/2025 2:13 PM [facility]T [facility] pCO2, Arterial 43 32 - 45 mm Hg 03/22/2025 2:13 PM EDT [facility] pO2, Arterial 96 83 - 108 mm Hg 03/22/2025 2:13 PM EDT [facility] SO2, Arterial 97 94 - 98 % 03/22/2025 2:13 PM EDT [facility] Base Excess, Arterial -2.5(L) -2 - 3 mmol/L 03/22/2025 2:13 PM EDT [facility] HCO3, Arterial 23.2 22 - 26 mmol/L 03/22/2025 2:13 PM EDT [facility] Total Hemoglobin, Arterial, Whole Blood 9.4(L) 13.7 - 17.5 g/dL 03/22/2025 2:13 PM EDT [facility] Hematocrit, Arterial 28.0(L) 40 - 51.0 % 03/22/2025 2:13 PM T [facility] Sodium, Arterial 140 136 - 145 mmol/L 03/22/2025 2:13 PM T [facility] Potassium, Arterial 3.7 3.6 - 4.9 mmol/L 03/22/2025 2:13 PM T [facility] Chloride, Whole Blood 110(H) 97 - 107 mmol/L 03/22/2025 2:13 PM [facility] Glucose, Arterial 212(H) 74 - 99 mg/dL 03/22/2025 2:13 PM T [facility] Ionized Calcium, Arterial 4.8 4.6 - 5.1 mg/dL 03/22/2025 2:13 PM [facility] Lactate, Arterial 2.5(H) 0.5 - 1.6 mmol/L 03/22/2025 2:13 PM T [facility] Body Temperature 37.0 Celsius 03/22/2025 2:13 PM [facility] pH, Temp Corrected, Arterial 7.34(L) 7.35 - 7.45 03/22/2025 2:[address] [facility] pCO2, Temp Corrected, Arterial 43 32 - 45 mm Hg 03/22/2025 2:13 PM [facility] pO2, Temp Corrected, Arterial 96 83 - 108 mm Hg 03/22/2025 2:13 PM EDT [facility] Cotton Classer Aide ID Rosalia, Max 03/22/2025 2:[address] [facility] Blood, Arterial Whole blood specimen / Unknown 03/22/2025 2:10 PM EDT 03/22/2025 2:13 PM EDT Musa Rosado MD LAB POINT OF CARE TE ST DOCKED DEVICE UNSOLICITED RESULTS Final Result Performing Organization Address [facility] de Phone Number HEALTHCARE [facility] [address] [place] [address] * POCT ACT (03/22/2025 2:04 PM EDT) ACT+ (HIGH RANGE) 115 68 - 600 Seconds 03/22/2025 2:10 PM EDT [facility] Cotton Classer Aide ID Selene Cardona 03/22/2025 2:10 PM EDT [facility] ACT Device ID [id number] 03/22/2025 2:10 PM EDT [facility] Comment 03/22/2025 2:10 PM EDT [facility] Comment: ACT performed by staff [...] UNSOLICITED RESULTS Final Result Performing Organization Address [facility] Phone Number HEALTHCARE LAB [address] LAB [address] [place] [address] * (ABNORMAL) POCT arterial blood gas gem (03/22/2025 1:29 PM EDT) pH, Arterial 7.33(L) 7.35 - 7.45 03/22/2025 1:31 PM EDT [facility] pCO2, Arterial 42 32 - 45 mm Hg 03/22/2025 1:31 PM EDT [facility] pO2, Arterial 371(H) 83 - 108 mm Hg 03/22/2025 1:31 PM EDT [facility] SO2, Arterial 98 94 - 98 % 03/22/2025 1:31 PM EDT [facility] Base Excess, Arterial -3.6(L) -2 - 3 mmol/L 03/22/2025 1:31 PM EDT [facility] HCO3, Arterial 22.1 22 - 26 mmol/L 03/22/2025 1:31 PM EDT [facility] Total Hemoglobin, Arterial, Whole Blood 9.0(L) 13.7 - 17.5 g/dL 03/22/2025 1:31 PM T [facility] Hematocrit, Arterial 27.0(L) 40 - 51.0 % 03/22/2025 1:31 PM T [facility] Sodium, Arterial 138 136 - 145 mmol/L 03/22/2025 1:31 PM T [facility] Potassium, Arterial 4.2 3.6 - 4.9 mmol/L 03/22/2025 1:31 PM T [facility] Chloride, Whole Blood 109(H) 97 - 107 mmol/L 03/22/2025 1:31 PM [facility] Glucose, Arterial 272(H) 74 - 99 mg/dL 03/22/2025 1:31 PM T [facility] Ionized Calcium, Arterial 4.9 4.6 - 5.1 mg/dL 03/22/2025 1:31 PM T [facility] Lactate, Arterial 2.6(H) 0.5 - 1.6 mmol/L 03/22/2025 1:31 PM EDT [facility] Body Temperature 37.0 Celsius 03/22/2025 1:31 PM T [facility] pH, Temp Corrected, Arterial 7.33(L) 7.35 - 7.45 03/22/2025 1:31 PM T [facility] pCO2, Temp Corrected, Arterial 42 32 - 45 mm Hg 03/22/2025 1:31 PM T [facility] pO2, Temp Corrected, Arterial 371(H) 83 - 108 mm Hg 03/22/2025 1:31 PM T [facility] Cotton Classer Aide ID Yuliana, Shelley 03/22/2025 1:[address] [facility] Blood, Arterial Whole blood specimen / Unknown 03/22/2025 1:29 PM EDT 03/22/2025 1:31 PM EDT us Musa Rosado MD LAB POINT OF CARE TE ST DOCKED DEVICE UNSOLICITED RESULTS Final Result Performing Organization Address [facility] Co de Phone Number HEALTHCARE LAB [address] [place] [address] * POCT ACT (03/22/2025 1:25 PM EDT) ACT+ (HIGH RANGE) 489 68 - 600 Seconds 03/22/2025 1:34 PM EDT [facility]ARE [facility] Cotton Classer Aide ID Shelley Bridges 03/22/2025 1:34 PM EDT [facility] ACT Device ID [id number] 03/22/2025 1:34 PM EDT [facility] Comment 03/22/2025 1:[address] [facility] Comment: ACT performed by staff at point [...] UNSOLICITED RESULTS Final Result Performing Organization Address [facility] de Phone Number HEALTHCARE LAB [address] LAB [address] [place] [address] * (ABNORMAL) POCT arterial blood gas gem (03/22/2025 12:55 PM EDT) pH, Arterial 7.36 7.35 - 7.45 03/22/2025 12:56 PM EDT [facility] pCO2, Arterial 40 32 - 45 mm Hg 03/22/2025 12:56 PM EDT [facility] pO2, Arterial 179(H) 83 - 108 mm Hg 03/22/2025 12:56 PM EDT [facility] SO2, Arterial 97 94 - 98 % 03/22/2025 12:56 PM EDT [facility] Base Excess, Arterial -2.6(L) -2 - 3 mmol/L 03/22/2025 12:56 PM EDT [facility] HCO3, Arterial 22.6 22 - 26 mmol/L 03/22/2025 12:56 PM EDT [facility] Total Hemoglobin, Arterial, Whole Blood 9.3(L) 13.7 - 17.5 g/dL 03/22/2025 12:56 PM EDT [facility] Hematocrit, Arterial 28.0(L) 40 - 51.0 % 03/22/2025 12:56 PM EDT [facility] Sodium, Arterial 139 136 - 145 mmol/L 03/22/2025 12:56 PM EDT [facility] Potassium, Arterial 4.0 3.6 - 4.9 mmol/L 03/22/2025 12:56 PM EDT [facility] Chloride, Whole Blood 108(H) 97 - 107 mmol/L 03/22/2025 12:56 PM T [facility] Glucose, Arterial 245(H) 74 - 99 mg/dL 03/22/2025 12:56 PM T [facility] Ionized Calcium, Arterial 4.8 4.6 - 5.1 mg/dL 03/22/2025 12:56 PM T [facility] Lactate, Arterial 2.4(H) 0.5 - 1.6 mmol/L 03/22/2025 12:56 PM EDT [facility] Body Temperature 37.0 Celsius 03/22/2025 12:56 PM T [facility] pH, Temp Corrected, Arterial 7.36 7.35 - 7.45 03/22/2025 12:56 PM T [facility] pCO2, Temp Corrected, Arterial 40 32 - 45 mm Hg 03/22/2025 12:56 PM T [facility] pO2, Temp Corrected, Arterial 179(H) 83 - 108 mm Hg 03/22/2025 12:56 PM EDT [facility] Cotton Classer Aide ID Selene Cardona 03/22/2025 12:56 PM T [facility] Blood, Arterial Whole blood specimen / Unknown 03/22/2025 12:55 PM EDT 03/22/2025 12:56 PM EDT Musa Rosado MD LAB POINT OF CARE TE ST DOCKED DEVICE UNSOLICITED RESULTS Final Result Performing Organization Address City/[facility]/ZIP Co de Phone Number HEALTHCARE LAB [address] [place] [address] * POCT ACT (03/22/2025 12:51 PM EDT) [facility] ACT+ (HIGH RANGE) 593 68 - 600 Seconds 03/22/2025 1:02 PM EDT [facility] Cotton Classer Aide ID Selene Cardona 03/22/2025 1:02 PM EDT [facility]ALTH[facility]ARE [facility] ACT Device ID [id number] 03/22/2025 1:02 PM EDT [facility]ARE [facility] Comment 03/22/2025 1:02 PM EDT [facility] Comment: ACT performed by staff [...] UNSOLICITED RESULTS Final Result Performing Organization Address [facility] Co de Phone Number HEALTHCARE LAB [address] LAB [address] [place] [address] * (ABNORMAL) POCT arterial blood gas gem (03/22/2025 12:25 PM EDT) Pathologist [facility] pH, Arterial 7.44 7.35 - 7.45 [...] - 26 mmol/L 03/22/2025 12:26 PM EDT [facility] Total Hemoglobin, Arterial, Whole Blood 9.7(L) 13.7 - 17.5 g/dL 03/22/2025 12:26 PM EDT [facility] Hematocrit, Arterial 29.0(L) 40 - 51.0 % 03/22/2025 12:26 PM EDT [facility] Sodium, Arterial 138 136 - 145 mmol/L 03/22/2025 12:26 PM EDT [facility] Potassium, Arterial 3.4(L) 3.6 - 4.9 mmol/L 03/22/2025 12:26 PM EDT [facility] Chloride, Whole Blood 108(H) 97 - 107 mmol/L 03/22/2025 12:26 PM EDT [facility] Glucose, Arterial 266(H) 74 - 99 mg/dL 03/22/2025 12:26 PM EDT [facility] Ionized Calcium, Arterial 4.7 4.6 - 5.1 mg/dL 03/22/2025 12:26 PM EDT [facility] Lactate, Arterial 2.3(H) 0.5 - 1.6 mmol/L 03/22/2025 12:26 PM EDT [facility] Body Temperature 37.0 Celsius 03/22/2025 12:26 PM EDT [facility] pH, Temp Corrected, Arterial 7.44 7.35 - 7.45 03/22/2025 12:26 PM EDT [facility] pCO2, Temp Corrected, Arterial 34 32 - 45 mm Hg 03/22/2025 12:26 PM EDT [facility] pO2, Temp Corrected, Arterial 296(H) 83 - 108 mm Hg 03/22/2025 12:26 PM EDT [facility] Cotton Classer Aide ID Selene Cardona 03/22/2025 12:26 PM EDT [facility] Blood, Arterial Whole blood specimen / Unknown 03/22/2025 12:25 PM EDT 03/22/2025 12:26 PM EDT us Musa Rosado MD LAB POINT OF CARE TE ST DOCKED DEVICE UNSOLICITED RESULTS Final Result [facility] [address] [place] [address] * POCT ACT (03/22/2025 12:21 PM EDT) ACT+ (HIGH RANGE) 536 68 - 600 Seconds 03/22/2025 12:30 PM EDT [facility] Cotton Classer Aide ID Selene Cardona 03/22/2025 12:30 PM EDT [facility] ACT Device ID [id number] 03/22/2025 12:30 PM EDT HEALTHCARE LAB Comment 03/22/2025 12:30 PM EDT [facility] Comment: ACT performed by staff [...] ST DOCKED DEVICE UNSOLICITED RESULTS Final Result [facility] [address] LAB [address] [place] [address] * (ABNORMAL) POCT arterial blood gas gem (03/22/2025 11:54 AM EDT) pH, Arterial 7.31(L) 7.35 - 7.45 03/22/2025 11:56 AM EDT [facility]ALTH[facility]ARE [facility] pCO2, Arterial 43 32 - 45 mm Hg 03/22/2025 11:56 AM EDT [facility] pO2, Arterial 234(H) 83 - 108 mm Hg 03/22/2025 11:56 AM EDT [facility] SO2, Arterial 97 94 - 98 % 03/22/2025 11:56 AM EDT [facility] Base Excess, Arterial -4.4(L) -2 - 3 mmol/L 03/22/2025 11:56 AM EDT [facility]ALTH[facility]ARE [facility] HCO3, Arterial 21.7(L) 22 - 26 mmol/L 03/22/2025 11:56 AM EDT [facility] Total Hemoglobin, Arterial, Whole Blood 9.8(L) 13.7 - 17.5 g/dL 03/22/2025 11:56 AM EDT [facility] Hematocrit, Arterial 29.0(L) 40 - 51.0 % 03/22/2025 11:56 AM EDT [facility] Sodium, Arterial 139 136 - 145 mmol/L 03/22/2025 11:56 AM EDT [facility] Potassium, Arterial 2.9(L) 3.6 - 4.9 mmol/L 03/22/2025 11:56 AM EDT [facility] Chloride, Whole Blood 107 97 - 107 mmol/L 03/22/2025 11:56 AM EDT [facility] Glucose, Arterial 243(H) 74 - 99 mg/dL 03/22/2025 11:56 AM EDT [facility] Ionized Calcium, Arterial 4.9 4.6 - 5.1 mg/dL 03/22/2025 11:56 AM EDT [facility] Lactate, Arterial 2.2(H) 0.5 - 1.6 mmol/L 03/22/2025 11:56 AM EDT [facility] Body Temperature 37.0 Celsius 03/22/2025 11:56 AM EDT [facility] pH, Temp Corrected, Arterial 7.31(L) 7.35 - 7.45 03/22/2025 11:56 AM EDT [facility] pCO2, Temp Corrected, Arterial 43 32 - 45 mm Hg 03/22/2025 11:56 AM EDT [facility] pO2, Temp Corrected, Arterial 234(H) 83 - 108 mm Hg 03/22/2025 11:56 AM EDT [facility] Cotton Classer Aide ID Selene Cardona 03/22/2025 11:56 AM EDT [facility] Blood, Arterial Whole blood specimen / Unknown 03/22/2025 11:54 AM EDT 03/22/2025 11:56 AM EDT us Musa Rosado MD LAB POINT OF CARE TE ST DOCKED DEVICE UNSOLICITED RESULTS Final Result Performing Organization Address City/State/[facility] Co de Phone Number [facility] [address] [place] [address] * POCT ACT (03/22/2025 11:49 AM EDT) Pathologist [facility] ACT+ (HIGH RANGE) 591 68 - 600 Seconds 03/22/2025 12:30 PM EDT [facility] Cotton Classer Aide ID Selene Cardona 03/22/2025 12:30 PM EDT [facility] ACT Device ID [id number] 03/22/2025 12:30 PM EDT [facility] Comment 03/22/2025 12:30 PM EDT [facility] Comment: ACT performed by staff [...] ST DOCKED DEVICE UNSOLICITED RESULTS Final Result [facility] [address] LAB [address] [place] [address] * (ABNORMAL) POCT arterial blood gas gem (03/22/2025 11:26 AM EDT) pH, Arterial 7.37 7.35 - 7.45 03/22/2025 11:28 AM EDT [facility] pCO2, Arterial 42 32 - 45 mm Hg 03/22/2025 11:28 AM EDT [facility] pO2, Arterial 251(H) 83 - 108 mm Hg 03/22/2025 11:28 AM EDT [facility] SO2, Arterial 98 94 - 98 % 03/22/2025 11:28 AM EDT [facility] Base Excess, Arterial -1.0 -2 - 3 mmol/L 03/22/2025 11:28 AM EDT [facility] HCO3, Arterial 24.3 22 - 26 mmol/L 03/22/2025 11:28 AM EDT [facility] Total Hemoglobin, Arterial, Whole Blood 9.2(L) 13.7 - 17.5 g/dL 03/22/2025 11:28 AM EDT [facility] Hematocrit, Arterial 28.0(L) 40 - 51.0 % 03/22/2025 11:28 AM EDT [facility] Sodium, Arterial 136 136 - 145 mmol/L 03/22/2025 11:28 AM EDT [facility] Potassium, Arterial 3.6 3.6 - 4.9 mmol/L 03/22/2025 11:28 AM EDT [facility] Chloride, Whole Blood 106 97 - 107 mmol/L 03/22/2025 11:28 AM EDT [facility] Glucose, Arterial 248(H) 74 - 99 mg/dL 03/22/2025 11:28 AM EDT [facility] Ionized Calcium, Arterial 4.7 4.6 - 5.1 mg/dL 03/22/2025 11:28 AM EDT [facility] Lactate, Arterial 1.5 0.5 - 1.6 mmol/L 03/22/2025 11:28 AM EDT [facility] Body Temperature 37.0 Celsius 03/22/2025 11:28 AM EDT [facility] pH, Temp Corrected, Arterial 7.37 7.35 - 7.45 03/22/2025 11:28 AM EDT [facility] pCO2, Temp Corrected, Arterial 42 32 - 45 mm Hg 03/22/2025 11:28 AM EDT [facility] pO2, Temp Corrected, Arterial 251(H) 83 - 108 mm Hg 03/22/2025 11:28 AM EDT [facility] Cotton Classer Aide ID Selene Cardona 03/22/2025 11:28 AM EDT [facility] Blood, Arterial Whole blood specimen / Unknown 03/22/2025 11:26 AM EDT 03/22/2025 11:28 AM EDT us Musa Rosado MD LAB POINT OF CARE TE ST DOCKED DEVICE UNSOLICITED RESULTS Final Result [facility] [address] [place] [address] * POCT ACT (03/22/2025 11:22 AM EDT) ACT+ (HIGH RANGE) 534 68 - 600 Seconds 03/22/2025 11:31 AM EDT [facility] Cotton Classer Aide ID Selene Cardona 03/22/2025 11:31 AM EDT [facility] ACT Device ID [id number] 03/22/2025 11:31 AM EDT [facility] Comment 03/22/2025 11:31 AM EDT [facility] Comment: ACT performed by staff [...] ST DOCKED DEVICE UNSOLICITED RESULTS Final Result [facility] [address] LAB [address] [place] [address] * (ABNORMAL) POCT arterial blood gas gem (03/22/2025 10:55 AM EDT) pH, Arterial 7.40 7.35 - 7.45 03/22/2025 10:56 AM EDT [facility] pCO2, Arterial 41 32 - 45 mm Hg 03/22/2025 10:56 AM EDT [facility] pO2, Arterial 183(H) 83 - 108 mm Hg 03/22/2025 10:56 AM EDT [facility] SO2, Arterial 97 94 - 98 % 03/22/2025 10:56 AM EDT [facility] Base Excess, Arterial 0.5 -2 - 3 mmol/L 03/22/2025 10:56 AM EDT [facility] HCO3, Arterial 25.4 22 - 26 mmol/L 03/22/2025 10:56 AM EDT [facility] Total Hemoglobin, Arterial, Whole Blood 12.6(L) 13.7 - 17.5 g/dL 03/22/2025 10:56 AM EDT [facility] Hematocrit, Arterial 38.0(L) 40 - 51.0 % 03/22/2025 10:56 AM EDT [facility] Sodium, Arterial 139 136 - 145 mmol/L 03/22/2025 10:56 AM EDT [facility] Potassium, Arterial 4.1 3.6 - 4.9 mmol/L 03/22/2025 10:56 AM EDT [facility] Chloride, Whole Blood 107 97 - 107 mmol/L 03/22/2025 10:56 AM EDT [facility] Glucose, Arterial 157(H) 74 - 99 mg/dL 03/22/2025 10:56 AM EDT [facility] Ionized Calcium, Arterial 4.7 4.6 - 5.1 mg/dL 03/22/2025 10:56 AM EDT [facility] Lactate, Arterial 1.1 0.5 - 1.6 mmol/L 03/22/2025 10:56 AM EDT [facility] Body Temperature 37.0 Celsius 03/22/2025 10:56 AM EDT [facility] pH, Temp Corrected, Arterial 7.40 7.35 - 7.45 03/22/2025 10:56 AM EDT [facility] pCO2, Temp Corrected, Arterial 41 32 - 45 mm Hg 03/22/2025 10:56 AM EDT [facility] pO2, Temp Corrected, Arterial 183(H) 83 - 108 mm Hg 03/22/2025 10:56 AM EDT [facility] Cotton Classer Aide ID Selene Cardona 03/22/2025 10:56 AM EDT [facility] Blood, Arterial Whole blood specimen / Unknown 03/22/2025 10:55 AM EDT 03/22/2025 10:56 AM EDT Musa Rosado MD LAB POINT OF CARE TE ST DOCKED DEVICE UNSOLICITED RESULTS Final Result [facility] [address] [place] [address] * POCT ACT (03/22/2025 10:52 AM EDT) [facility] Signature ACT+ (HIGH RANGE) 599 68 - 600 Seconds 03/22/2025 11:02 AM EDT [facility]ALTH[facility]ARE LAB Cotton Classer Aide ID Selene Cardona 03/22/2025 11:02 AM EDT [facility] ACT Device ID [id number] 03/22/2025 11:02 AM EDT [facility] Comment 03/22/2025 11:02 AM EDT [facility] Comment: ACT performed by staff [...] ST DOCKED DEVICE UNSOLICITED RESULTS Final Result [facility] [address] LAB [address] [place] [address] * (ABNORMAL) POCT arterial blood gas gem (03/22/2025 10:04 AM EDT) pH, Arterial 7.36 7.35 - 7.45 03/22/2025 10:06 AM EDT [facility] pCO2, Arterial 46(H) 32 - 45 mm Hg 03/22/2025 10:06 AM EDT [facility] pO2, Arterial 178(H) 83 - 108 mm Hg 03/22/2025 10:06 AM EDT [facility] SO2, Arterial 97 94 - 98 % 03/22/2025 10:06 AM EDT [facility] Base Excess, Arterial 0.1 -2 - 3 mmol/L 03/22/2025 10:06 AM EDT [facility] HCO3, Arterial 26.0 22 - 26 mmol/L 03/22/2025 10:06 AM EDT [facility] Total Hemoglobin, Arterial, Whole Blood 13.3(L) 13.7 - 17.5 g/dL 03/22/2025 10:06 AM EDT [facility] Hematocrit, Arterial 40.0 40 - 51.0 % 03/22/2025 10:06 AM EDT [facility] Sodium, Arterial 139 136 - 145 mmol/L 03/22/2025 10:06 AM EDT [facility] Potassium, Arterial 4.1 3.6 - 4.9 mmol/L 03/22/2025 10:06 AM EDT [facility] Chloride, Whole Blood 105 97 - 107 mmol/L 03/22/2025 10:06 AM EDT [facility] Glucose, Arterial 174(H) 74 - 99 mg/dL 03/22/2025 10:06 AM EDT [facility] Ionized Calcium, Arterial 4.9 4.6 - 5.1 mg/dL 03/22/2025 10:06 AM EDT [facility] Lactate, Arterial 1.2 0.5 - 1.6 mmol/L 03/22/2025 10:06 AM EDT [facility] Body Temperature 37.0 Celsius 03/22/2025 10:06 AM EDT [facility] pH, Temp Corrected, Arterial 7.36 7.35 - 7.45 03/22/2025 10:06 AM EDT [facility] pCO2, Temp Corrected, Arterial 46(H) 32 - 45 mm Hg 03/22/2025 10:06 AM EDT [facility] pO2, Temp Corrected, Arterial 178(H) 83 - 108 mm Hg 03/22/2025 10:06 AM EDT [facility] Cotton Classer Aide ID Temo Mendoza 03/22/2025 10:06 AM EDT [facility] Blood, Arterial Whole blood specimen / Unknown 03/22/2025 10:04 AM EDT 03/22/2025 10:06 AM EDT us Musa Rosado MD LAB POINT OF CARE TE ST DOCKED DEVICE UNSOLICITED RESULTS Final Result [facility] [address] [place] [id number] * (ABNORMAL) POCT arterial blood gas gem (03/22/2025 8:01 AM EDT) pH, Arterial 7.44 7.35 - 7.45 03/22/2025 9:00 AM EDT [facility] pCO2, Arterial 39 32 - 45 mm Hg 03/22/2025 9:00 AM EDT [facility] pO2, Arterial 78(L) 83 - 108 mm Hg 03/22/2025 9[facility] [facility] SO2, Arterial 96 94 - 98 % 03/22/2025 9:00 AM [facility] Base Excess, Arterial 2.3 -2 - 3 mmol/L 03/22/2025 9:00 AM [facility] HCO3, Arterial 26.5(H) 22 - 26 mmol/L 03/22/2025 9:00 AM [facility] Total Hemoglobin, Arterial, Whole Blood 13.8 13.7 - 17.5 g/dL 03/22/2025 9:00 AM [facility] Hematocrit, Arterial 41.0 40 - 51.0 % 03/22/2025 9:00 AM [facility] Sodium, Arterial 139 136 - 145 mmol/L 03/22/2025 9:00 AM [facility] Potassium, Arterial 3.8 3.6 - 4.9 mmol/L 03/22/2025 9:00 AM [facility] Chloride, Whole Blood 104 97 - 107 mmol/L 03/22/2025 9:00 AM [facility] Glucose, Arterial 207(H) 74 - 99 mg/dL 03/22/2025 9:00 AM [facility] Ionized Calcium, Arterial 5.0 4.6 - 5.1 mg/dL 03/22/2025 9:00 AM [facility] Lactate, Arterial 1.1 0.5 - 1.6 mmol/L 03/22/2025 9:00 AM [facility] Body Temperature 37.0 Celsius 03/22/2025 9:00 AM [facility] pH, Temp Corrected, Arterial 7.44 7.35 - 7.45 03/22/2025 9:00 AM [facility] pCO2, Temp Corrected, Arterial 39 32 - 45 mm Hg 03/22/2025 9:00 AM [facility] pO2, Temp Corrected, Arterial 78(L) 83 - 108 mm Hg 03/22/2025 9:00 AM [facility] Cotton Classer Aide ID Ludin Aguiar 03/22/2025 9:00 AM [facility] Blood, Arterial Whole blood specimen / Unknown 03/22/2025 8:01 AM EDT 03/22/2025 9:00 AM EDT us Musa Rosado MD LAB POINT OF CARE TE ST DOCKED DEVICE UNSOLICITED RESULTS Final Result Performing Organization Address [facility] de Phone Number [facility] [address] [place] [address] * POCT ACT (03/22/2025 7:57 AM EDT) ACT+ (HIGH RANGE) 107 68 - 600 Seconds 03/22/2025 8:02 AM EDT [facility] Cotton Classer Aide ID Jean Acevedo 03/22/2025 8:02 AM EDT [facility] ACT Device ID [id number] 03/22/2025 8:02 AM EDT [facility] Comment 03/22/2025 8:02 AM EDT [facility] Comment: ACT performed by staff [...] UNSOLICITED RESULTS Final Result Performing Organization Address [facility] de Phone Number HEALTHCARE [facility] [address] [facility] [address] [place] [address] * APTT (03/22/2025 6:32 AM EDT) aPTT 28 25 - 35 sec LAB COAGULATION METHOD 03/22/2025 6:58 AM EDT [facility] Blood Venous blood specimen / Unknown Venipuncture / Unknown 03/22/2025 6:32 AM EDT 03/22/2025 6:38 AM EDT us Zulay Syed APRN LAB BLOOD ORDERABLES Final R esult Performing Organization Address [facility] Co de Phone Number [facility] [address] [place] [address] * Protime-INR (03/22/2025 6:32 AM EDT) Prothrombin Time 13.6 12.0 - 14.3 sec LAB COAGULATION METHOD 03/22/2025 6:58 AM EDT [facility] INR 1.0 0.9 - 1.1 LAB COAGULATION METHOD 03/22/2025 6:58 AM EDT [facility] Blood Venous blood specimen / Unknown Venipuncture / Unknown 03/22/2025 6:32 AM EDT 03/22/2025 6:38 AM EDT Narrative [facility] - 03/22/2025 6:58 AM EDT OPTIMAL INR RANGES FOR PATIENT ON ORAL ANTICOAGULANT THERAPY Prevention of venous thromboembolism INR 2.0 to 3.0 In patients with heart disease: Atrial fibrillation INR 2.0 to 3.0 Valvular heart disease INR 2.0 to 3.0 Tissue heart valves INR 2.0 to 3.0 Mechanical prosthetic valves INR 2.5 to 3.5 Prevention of recurrent GA INR 2.5 to 3.5 us Zulay Syed FACTORY LAY OUT ENGINEER LAB BLOOD ORDERABLES Final R esult [facility] [address] [place] [address] * (ABNORMAL) Comprehensive metabolic panel (03/22/2025 6:32 AM EDT) Glucose, Plasma 180(H) 74 - 99 mg/dL 03/22/2025 7:10 AM EDT [facility] BUN, Plasma 20 7 - 21 mg/dL 03/22/2025 7:10 AM EDT [facility] Creatinine, Plasma 1.29(H) 0.70 - 1.20 mg/dL 03/22/2025 7:10 AM EDT [facility] BUN/Creatinine Ratio 16 03/22/2025 7:10 AM EDT [facility] Sodium, Plasma 139 136 - 145 mmol/L 03/22/2025 7:10 AM EDT [facility] Potassium, Plasma 3.9 3.6 - 4.9 mmol/L 03/22/2025 7:10 AM EDT [facility] Chloride, Plasma 104 97 - 107 mmol/L 03/22/2025 7:10 AM EDT [facility] CO2, Plasma 24 22 - 29 mmol/L 03/22/2025 7:10 AM EDT [facility] Anion Gap 11 6 - 16 mmol/L 03/22/2025 7:10 AM EDT [facility] Total Calcium, Plasma 9.5 8.9 - 10.2 mg/dL 03/22/2025 7:10 AM EDT [facility] Total Protein 7.2 6.3 - 7.9 g/dL 03/22/2025 7:10 AM EDT [facility] Albumin, Plasma 4.4 3.5 - 5.2 g/dL 03/22/2025 7:10 AM EDT [facility] AST, Plasma 24 10 - 50 U/L 03/22/2025 7:10 AM EDT [facility] Comment:Hemolyzed, result ma y be falsely increased. ALT, Plasma 28 10 - 50 U/L 03/22/2025 7:10 AM EDT [facility] Alkaline Phosphatase, Plasma 41 40 - 115 U/L 03/22/2025 7:10 AM EDT [facility] Total Bilirubin, Plasma 0.4 0.2 - 1.1 mg/dL 03/22/2025 7:10 AM EDT [facility] eGFRcr 70.6 mL/min/1.7 3m*2 03/22/2025 7:10 AM EDT [facility] Comment:Reported eGFRcr in m L/min/1.73m2 is based the CKD-EPI 2020 equation that does not use a race coefficient. Blood Venous blood specimen / Unknown Venipuncture / Unknown 03/22/2025 6:32 AM EDT 03/22/2025 6:38 AM EDT us Zulay Syed APRN LAB BLOOD ORDERABLES Final R esult [facility] [address] [place] [address] * CBC (03/22/2025 6:32 AM EDT) WBC Count 5.45 3.70 - 10.30 10*3/uL LAB HEMATOLOGY METHOD 03/22/2025 7:04 AM EDT [facility] RBC Count 4.78 4.60 - 6.10 10*6/uL LAB HEMATOLOGY METHOD 03/22/2025 7:04 AM EDT [facility] HGB 14.7 13.7 - 17.5 g/dL LAB HEMATOLOGY METHOD 03/22/2025 7:04 AM EDT [facility] HCT 42.5 40.0 - 51.0 % LAB HEMATOLOGY METHOD 03/22/2025 7:04 AM EDT [facility] Platelet Count 183 155 - 369 10*3/uL LAB HEMATOLOGY METHOD 03/22/2025 7:04 AM EDT [facility] MCV 89 79 - 98 fL LAB HEMATOLOGY METHOD 03/22/2025 7:04 AM EDT [facility] MCH 30.8 26.0 - 32.0 pg LAB HEMATOLOGY METHOD 03/22/2025 7:04 AM EDT [facility] MCHC 34.6 30.7 - 35.5 g/dL LAB HEMATOLOGY METHOD 03/22/2025 7:04 AM EDT [facility] RDW 13.3 11.5 - 14.5 % LAB HEMATOLOGY METHOD 03/22/2025 7:04 AM EDT [facility] MPV 11.2 8.8 - 12.5 fL LAB HEMATOLOGY METHOD 03/22/2025 7:04 AM EDT [facility] nRBC 0.0 <=0.0 per 100 WBCs LAB HEMATOLOGY METHOD 03/22/2025 7:04 AM EDT [facility] Blood Venous blood specimen / Unknown Venipuncture / Unknown 03/22/2025 6:32 AM EDT 03/22/2025 6:38 AM EDT us Zulay Syed FA[employer]ORY LAY OUT ENGINEER LAB BLOOD ORDERABLES Final R esult [facility] [address] [place] [address] * (ABNORMAL) POCT glucose meter (03/22/2025 6:31 [...] Comment 03/22/2025 6:33 AM EDT [facility] Cotton Classer Aide ID Beverly Romano 03/22/2025 6:33 AM EDT [facility] Device ID [id number] 03/22/2025 6:33 AM EDT [facility] Specimen Type POC Venous 03/22/2025 6:33 AM EDT [facility] Blood Venous blood specimen / Unknown 03/22/2025 6:31 AM EDT 03/22/2025 6:33 AM EDT Musa Rosado MD LAB POINT OF CARE TE ST DOCKED DEVICE UNSOLICITED RESULTS Final Result Performing Organization Address City/State/[facility] Co de Phone Number [facility] [address] [place] [address] documented in this encounter Visit Diagnoses Diagnosis CAD (coronary artery disease)- Primary Coronary atherosclerosis of unspecified type of vessel, cher-ae heights or graft CAD, multiple vessel S/P CABG [...] Coronary atherosclerosis of unspecified type of vessel, cher-ae heights or graft CAD, multiple vessel S/P CABG [...] PM EDT 4 mg HYDROmorphone 1 mg/mL PARENT PARTNER (naive protocol) Patient PARENT PARTNER Dose: 0.2 mg, PARENT PARTNER Lockout: 6 Minutes, Continuous Dose (MG/hr): 0 [...] times daily with meals, First dose on [facility] 03/24/25 at 0830, Until Discontinued, Routine Given 03/30/2025 9:01 AM EDT 2 Units Left Lower Abdomen Given 03/29/2025 1:20 PM EDT 4 Units Le ft Upper Arm (Back) Given 03/29/2025 9:21 AM EDT 2 Units Ri ght Upper Arm (Back) insulin lispro (Admelog) injection - Correction - Nighttime Dose 0-3 Units, Subcutaneous, 2 times nightly (2100 & 0300), First dose on [facility] 03/24/25 at 2100, Until Discontinued, Routine Given [...] meals, First dose (after last modification) on [facility] 03/26/25 at 0830, Until Discontinued, Routine Given 03/26/2025 1:47 PM EDT 6 Units Right Upper Arm (Katerin k) Given 03/26/2025 8:57 AM EDT 6 Units Ri ght Upper Arm (Back) Insulin Lispro (Admelog, HumaLOG) 100 UNIT/ML injection 8 Units 8 Units, Subcutaneous, 3 times daily with meals, First dose (after last modification) on [facility] 03/26/25 at 1730, Until Discontinued, Routine Given [...] Brittany 03/24/25 at 0900, Last dose on [facility] 03/26/25 at 0900, Routine Given 03/25/2025 8:37 AM EDT 30 mL Given 03/24/2025 8:26 AM EDT 30 mL magnesium hydroxide (Milk of Magnesia) 400 MG/5ML suspension 30 mL 30 mL, Oral, Daily, 8 doses, First dose (after last modification) on [facility] 03/26/25 at 0900, Last dose on [facility] 04/02/25 at 0900, Routine, Recovery(Phase II-Outpatient)/On Unit(Inpatient) [...] Until Discontinued, Routine 0850 (Given - Provider: Maurene Bang, LISSY)1323 (Given - Provider: Maureen Bang [...] Routine 1800 (Not Given - Provider: Beverly Mekes RN - Reason: Hold for condition: must [...] Discontinued, Routine 0336 (Given - Provider: Afshan Rcoa RN)0849 (Given - Provider: Maureen Bang RN)1436 [...] - Provider: Afshan Roca RN)1039 (Return to [facility] - Provider: Maureen Bang RN)1745 (Given - [...] documented as of this encounter Care Teams Shaft Mechanic Relationship Specialty Start Date End Date David Iverson MD PCP - General 06/06/22 Ludin Gonzalez MD [address] [place] [address] Referring Physician 02/18/25 documented as of this encounter
--- OUTSIDE RECORDS SUMMARY | 2025-03-22 07:39 | XMS_ITS | Encounter Summary ---
Author Organization Healthcare Address [address] [place] [address] Care Team Providers Care Head Machine Feeder Name Role Phone David Iverson MD Primary Care Provider [phone] Ludin Gonzalez MD Unavailable [phone] Reason for Visit * Auth/Cert (Routine) Specialty Diagnoses / Procedures Referred By Contac t Referred To Contact Diagnoses Coronary artery disease due to calcified coronary lesion Coronary artery disease due to calcified coronary lesion [I25.10, I25.84] Procedures [place] CABG, VEIN, THREE CABG, 2 OR MORE VESSELS Musa Rosado MD [address] [facility] [address] [place] [address] Phone: tel: fax: [facility] [address] [place] [address] Phone: tel: Referral ID Status Reason Start Date Expiration Date Visits Re quested Visits Authorized [id number] 1 1 Encounter Details Date Type Department Care Team (Late st Contact Info) Description 03/22/2025 7:39 AM EDT Anesthesia Event [facility] [address] [place] [address] Nati Aranda MD [address] [place] [address] Shelley Bridges Anesthesia Record Procedure [...] Labs 1123 ACT Performed 534s 1140 [address] [place] retracted per surgeon's request. Now 40cm at [...] Wrist; Site Prep: Chlorhexidine ; Local Anesth: [place]; Technique: Anatomical landmarks; Inserted by: tanya rojas [...] Location: Mediastinal; Size: 36 Fr; Drainage System: [place]/nonsuction water seal drainage; Removal Date: 03/24/25; Removal [...] any time in the past 12 m [facility], were you homeless or living in a snf (including now)? No 03/23/2025 Utilities Answer Date [...] portions of the procedure(s) and immediately available [facility] services the entire duration. See resident [...] portions of the procedure(s) and immediately available [facility] services the entire duration. See resident [...] portions of the procedure(s) and [facility]. See resident [...] portions of the procedure(s) and immediately available [facility] services the entire duration. See resident note for details. * Anesthesia Preprocedure Evaluation - Nati Aranda MD - 03/22/2025 6:32 AM EDT Images from the original note were not included. Patient: Lizandro Sprague Procedure Information Date/Time: 03/22/25 0745 Procedure: CABG, 2 OR MORE VESSELS Location: [facility] OR [address] [place] [address] OR Surgeons: Musa Rosado MD HPI Lizandro Sprague is a 45 y.o. male who presents with Pre-op Diagnosis * Coronary artery disease due to calcified coronary lesion [I25.10, I25.84] now scheduled for CABG, 2 OR MORE VESSELS (N/A) with Musa Rosado MD on 03/22/2025 in [facility]. HTN, HLD, DM2 with neuropathy, CKD 3, [...] mg by mouth daily.) Easy Touch Pen [place], nitroglycerin, DISSOLVE 1 TABLET UNDER THE TONGUE EVERY 5 MINUTES NEEDED FOR CHEST PAIN. DO NOT EXCEED A TOTAL OF 3 DOSES IN 15 MINUTES. IF NO RELIEF CALL 911. NovoLOG FLEXPEN, sildenafil, Take 1 tablet by mouth as needed. ROS Anesthesia: Date of last anesthetic: Never had [place] Conscious sedation [facility] 02/2025 history of previous anesthesia. Does not have a history of anesthetic complications and obstructivesleep apnea. Cardiovascular: atrial fibrillation (on Xarelto), CAD and hyperlipidemia. Does not have CHF, dyspnea, dysrhythmias,pacemaker or past [place]. hypertension: is well controlled. Exercise tolerance is [...] Description 04/14/2025 3:40 PM EDT Office Visit [facility] Cardiothoracic [address], [facility] [address] [place] [address] Musa Rosado MD [address] [facility] [address] [place] [address] 06/13/2025 11:40 AM EDT Office Visit [facility] [employer] [place] Nephrology, Bone & Mineral Metabolism [address] [facility] [address] [facility] [address], [address] [place] [address] Sonia Medley MD [address] [facility] [address] [place] [address] documented as of this encounter Goals Goal Patient Goal Type Associated Problems Recent Progress Patient-Stated? 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 Syed Tasha, SANITATION LABORER documented as of this encounter Procedures Procedure Name Priority Date/Time Associated Diagnosis Comments PB ANESTHESIA NON-TIMED PROCEDURE PLACEHOLDER Routine 03/22/2025 9:51 AM EDT NJ INSERT/PLACE FLOW DIRECT CATH Routine 03/22/2025 8:47 AM EDT ANESTHESIA ULTRASOUND GUIDED Routine 03/22/2025 8:47 AM EDT PB ANESTHESIA NON-TIMED PROCEDURE PLACEHOLDER Routine 03/22/2025 8:47 AM EDT NJ AN CENTRAL LINE DOUBLE LUMEN Routine 03/22/2025 8:47 AM EDT PB ANESTHESIA NON-TIMED PROCEDURE PLACEHOLDER Routine 03/22/2025 8:47 AM EDT PB ANESTHESIA PLACEHOLDER Routine 03/22/2025 8:03 AM EDT NJ AN ELECTIVE ENDOTRACHEAL AIRWAY Routine 03/22/2025 8:03 [...] ORDERABLES Edite d Result - Final * NJ AN CENTRAL LINE DOUBLE LUMEN, PB ANESTHESIA NON-TIMED PROCEDURE PLACEHOLDER, ANESTHESIA ULTRASOUND GUIDED, NJ INSERT/PLACE FLOW DIRECT CATH (03/22/2025 8:47 AM [...] Aranda MD ANESTHESIA ORDERABLES Final Result * [place] AN ELECTIVE ENDOTRACHEAL AIRWAY, PB ANESTHESIA PLACEHOLDER [...] documented as of this encounter Care Teams Head Machine Feeder Relationship Specialty Start Date End Date David Iverson MD PCP - General 9/1/22 Ludin Gonzalez MD [address] [place] [address] Referring Physician 02/18/25 documented as of this encounter
--- OUTSIDE RECORDS SUMMARY | 2025-03-22 07:45 | XMS_ITS | Encounter Summary ---
Author Organization Healthcare Address [address] [place] [address] Care Team Providers Care Sales And Marketing Professional Name Role Phone David Iverson MD Primary Care Provider [phone] Ludin Gonzalez MD Unavailable [phone] Reason for Visit * Auth/Cert (Routine) Specialty Diagnoses / Procedures Referred By Contac t Referred To Contact Diagnoses Coronary artery disease due to calcified coronary lesion Coronary artery disease due to calcified coronary lesion [I25.10, I25.84] Procedures WA CABG, VEIN, THREE CABG, 2 OR MORE VESSELS Musa Rosado MD [address] [address] Phone: tel: fax: [facility] [address] [place] [address] Phone: tel: Referral ID Status Reason Start Date Expiration Date Visits Re quested Visits Authorized [id number] 1 1 Encounter Details Date Type Department Care Team (Late st Contact Info) Description 03/22/2025 7:45 AM EDT - 03/22/2025 5:00 PM EDT Surgery [facility] [address] [place] [address] Musa Rosado MD [address] [address] CABG, 2 OR MORE VESSELS [[id number] (CPT )] Surgery Details Date/Time Status Location [...] any time in the past 12 m [facility], were you homeless or living in a half-way (including now)? No 03/23/2025 Utilities Answer Date [...] Note Lizandro Gr 45 y.o. male CSN: [id number] Admission: 03/22/2025 5:35 AM Primary Problem: CAD (coronary artery disease) Primary Hand Ironer: Primary Caregiver: Self Assistance Available at Discharge: Availability of Care Givers (#Hours): Other (comment) (as needed) Family/Hand Ironer(s) Willingness Assessed to care for patient at home: Yes Family/Hand Ironer(s) Readiness Assessed to care for patient at [...] Second Notice Recieved By: Pt's s/o Follow-up: [facility] [address] [place], [address] [facility] [address] Raya Woods APRN [facility] [address] [address] Go on 05/25/2025 Your appointment time is [...] and does not require further [facility]-based care. SW met with pt's s/o at [...] from the original note were not included. [id number] Insulin Aspart (rDNA Origin) Injection Brand Name(s): [...] type 1 diabetes, it is usually injected [id number] minutes before a meal. If you are [...] buy an insulin pen separately. Check the assistant portfolio manager's information for the patient to see what [...] be sure to read and understand the assistant portfolio manager's instructions. If you are blind or have [...] or doctor for a copy of the assistant portfolio manager's information for the patient. Are there OTHER [...] medications. Ask your pharmacist or check the assistant portfolio manager's patient information for a list of the [...] and out of their sight and reach. [email or web address] Dispose of unneeded medications in a way [...] be awakened, immediately call emergency services at 411. Insulin aspart overdose can occur if you [...] of all of the prescription and nonprescription (hyvs-wit-otajfdy) medicines, vitamins, minerals, and dietary supplements you [...] or pharmacist about specific clinical use. The [employer] [employer] represents that the information provided hereunder was formulated with a reasonable standard of care, and in conformity with professional standards in the field. The [place] [employer] makes no representations or warranties, express or implied, including, but not limited to, any implied warranty of merchantability and/or fitness for a particular purpose, with respect to such information and specifically disclaims all such warranties. Users are advised that decisions regarding drug therapy are complex medical decisions requiring the independent, informed decision of an appropriate health hiv/aids care nurse, and the information is provided for informational purposes only. The entire monograph for a drug should be reviewed for a thorough understanding of the drug's actions, uses and side effects. The [employer] does not endorse or recommend the use of any drug.The information is not a substitute for medical care. AHFS?? Patient Medication Information?. ?? Copyright, 2023. The [employer]??, [address], [address], [place], [place]. All Rights Reserved. Duplication for commercial use must be authorized by [facility]. Selected Revisions: May 20, 2023. AHFS?? Patient Medication Information?. ?? Copyright, 2024 * [facility] - Mikayla Leung - 03/30/2025 10:52 AM EDT 1087 Oxycodone Oral Tablet, Immediate Release Brand Names: Oxaydo, Roxicodone What is this medicine? Oxycodone (kd-s-LJY-done) is an opioid pain reliever. It is used to treat moderate to severe pain. What should I tell my health care provider before I take this medicine? They need to know if you have any of these conditions: ? [place]'s disease ? Brain tumor or head injury [...] a special medication guide each time you continuous pickling line pickler helper this medicine. ? Overdosage: Taking too much [...] should report to your doctor or health hiv/aids care nurse as soon as possible: ? allergic reactions [...] attention (report to your doctor or health hiv/aids care nurse if they continue or are bothersome): ? constipation ? dry mouth ? itching ? nausea, vomiting ? upset stomach This list may not describe all possible side effects. Call your doctor for medical advice about side effects. You may report side effects to FDA at 1-701-DPW-4096. Where should I keep my medicine? This [...] location. To find a disposal location, visit [employer]/[place]. If you cannot take unused medicine to [...] from the original note were not included. [id number] Senna Brand Name(s): Black Draught??, Ex-Lax??, Nelson's [...] of all of the prescription and nonprescription (hadt-leq-rbhsvgh) medicines, vitamins, minerals, and dietary supplements you [...] or pharmacist about specific clinical use. The [place] [employer] represents that the information provided hereunder was formulated with a reasonable standard of care, and in conformity with professional standards in the field. The [employer] [employer] makes no representations or warranties, express or implied, including, but not limited to, any implied warranty of merchantability and/or fitness for a particular purpose, with respect to such information and specifically disclaims all such warranties. Users are advised that decisions regarding drug therapy are complex medical decisions requiring the independent, informed decision of an appropriate health hiv/aids care nurse, and the information is provided for informational purposes only. The entire monograph for a drug should be reviewed for a thorough understanding of the drug's actions, uses and side effects. The [place] [employer] does not endorse or recommend the use of any drug.The information is not a substitute for medical care. AHFS?? Patient Medication Information?. ?? Copyright, 2023. The [employer]??, [address], [address], [place], [place]. All Rights Reserved. Duplication for commercial use must be authorized by [facility]. Selected Revisions: March 25, 2024. AHFS?? Patient Medication Information?. ?? Copyright, 2024 * Jh NelsonRADHA - Mikayla Leung - 03/30/2025 10:51 AM EDT Images from the original note were not included. 798 Narcan Nasal [place]: Rescue Guide for Opioid Overdose Step 1 [...] the video go to this web address: https://bit.GSOUND/30Eeb6Y Or, scan this QR code with your smart phone ?? [facility] [facility] * Mikayla Cortez - 03/30/2025 10:51 AM EDT Images from the original note were not included. [id number] Methocarbamol Brand Name(s): Robaxin??; also available generically [...] of all of the prescription and nonprescription (ixac-gvp-cqqrsfk) medicines, vitamins, minerals, and dietary supplements you [...] or pharmacist about specific clinical use. The [place] [employer] represents that the information provided hereunder was formulated with a reasonable standard of care, and in conformity with professional standards in the field. The [employer] [employer] makes no representations or warranties, express or implied, including, but not limited to, any implied warranty of merchantability and/or fitness for a particular purpose, with respect to such information and specifically disclaims all such warranties. Users are advised that decisions regarding drug therapy are complex medical decisions requiring the independent, informed decision of an appropriate health hiv/aids care nurse, and the information is provided for informational purposes only. The entire monograph for a drug should be reviewed for a thorough understanding of the drug's actions, uses and side effects. The [place] [employer] does not endorse or recommend the use of any drug.The information is not a substitute for medical care. AHFS?? Patient Medication Information?. ?? Copyright, 2023. The [employer]??, [address], [address], [place], [place]. All Rights Reserved. Duplication for commercial use must be authorized by [facility]. Selected Revisions: May 20, 2017. AHFS?? Patient Medication Information?. ?? Copyright, 2024 * Jh ArmstrongRADHA - Mikayla Leung - 03/30/2025 10:50 AM EDT Images from the original note were not included. [id number] Furosemide Brand Name(s): Lasix??; also available generically [...] of all of the prescription and nonprescription (sloj-zmy-rfshlua) medicines vitamins, minerals, and dietary supplements you [...] or pharmacist about specific clinical use. The [place] [employer] represents that the information provided hereunder was formulated with a reasonable standard of care, and in conformity with professional standards in the field. The [place] [employer] makes no representations or warranties, express or implied, including, but not limited to, any implied warranty of merchantability and/or fitness for a particular purpose, with respect to such information and specifically disclaims all such warranties. Users are advised that decisions regarding drug therapy are complex medical decisions requiring the independent, informed decision of an appropriate health hiv/aids care nurse, and the information is provided for informational purposes only. The entire monograph for a drug should be reviewed for a thorough understanding of the drug's actions, uses and side effects. The [place] [employer] does not endorse or recommend the use of any drug.The information is not a substitute for medical care. AHFS?? Patient Medication Information?. ?? Copyright, 2023. The [employer]??, [address], [address], [place], [place]. All Rights Reserved. Duplication for commercial use must be authorized by [facility]. Selected Revisions: January 18, 2025. AHFS?? Patient Medication Information?. ?? Copyright, 2024 * Zinakale DamonRADHA - Mikayla Leung - 03/30/2025 10:50 AM EDT Images from the original note were not included. [id number] Stool Softeners Brand Name(s): Colace??, Correctol Soft [...] of all of the prescription and nonprescription (nxly-dqm-zgekchn) medicines, vitamins, minerals, and dietary supplements you [...] or pharmacist about specific clinical use. The [place] [employer] represents that the information provided hereunder was formulated with a reasonable standard of care, and in conformity with professional standards in the field. The [place] [employer] makes no representations or warranties, express or implied, including, but not limited to, any implied warranty of merchantability and/or fitness for a particular purpose, with respect to such information and specifically disclaims all such warranties. Users are advised that decisions regarding drug therapy are complex medical decisions requiring the independent, informed decision of an appropriate health hiv/aids care nurse, and the information is provided for informational purposes only. The entire monograph for a drug should be reviewed for a thorough understanding of the drug's actions, uses and side effects. The [place] [employer] does not endorse or recommend the use of any drug.The information is not a substitute for medical care. AHFS?? Patient Medication Information?. ?? Copyright, 2023. The [employer] [employer]??, [address], [address], [place], [place]. All Rights Reserved. Duplication for commercial use must be authorized by [facility]. Selected Revisions: March 25, 2024. AHFS?? Patient Medication Information?. ?? Copyright, 2024 * Jh Horton - Mikayla Leung - 03/30/2025 10:50 AM EDT Images from the original note were not included. [id number] Acetaminophen Brand Name(s): Actamin??, Feverall??, Panadol??, Tempra Quicklets??, Tylenol??, Dayquil?? (as a combination product containing Acetaminophen, Dextromethorphan, Pseudoephedrine), NyQuil Cold/Flu Relief?? (as a combination product containing Acetaminophen, Dextromethorphan, Doxylamine), Percocet?? (as a combination product containing Acetaminophen, Oxycodone) APAP, V-vhwyzv-oonu-aminophenol, Paracetamol ?? This branded product is no [...] measuring cup or syringe provided by the assistant portfolio manager to measure each dose of the solution [...] of all of the prescription and nonprescription (fula-wxr-cekwqdh) medicines you are taking, as well as [...] or pharmacist about specific clinical use. The [place] [employer] represents that the information provided hereunder was formulated with a reasonable standard of care, and in conformity with professional standards in the field. The [place] [employer] makes no representations or warranties, express or implied, including, but not limited to, any implied warranty of merchantability and/or fitness for a particular purpose, with respect to such information and specifically disclaims all such warranties. Users are advised that decisions regarding drug therapy are complex medical decisions requiring the independent, informed decision of an appropriate health hiv/aids care nurse, and the information is provided for informational purposes only. The entire monograph for a drug should be reviewed for a thorough understanding of the drug's actions, uses and side effects. The [place] [employer] does not endorse or recommend the use of any drug.The information is not a substitute for medical care. AHFS?? Patient Medication Information?. ?? Copyright, 2023. The [employer] [employer]??, [address], [address], [place], [place]. All Rights Reserved. Duplication for commercial use must be authorized by [facility]. Selected Revisions: June 20, 2023. AHFS?? Patient Medication Information?. ?? Copyright, 2024 * Discharge Summary - Lian DobbsNATHANIEL - 03/30/2025 10:04 AM EDT Images from the original note were not included. Hospitalization Admit Date/Time: 03/22/2025 5:35 AM Admitting Attending: Musa Rosado Discharge Date: 03/30/2025 Discharge Attending Physician: Musa Rosado MD PCP name and Address: David Iverson MD [address] [place] [address] Referring provider name and address: No referring [...] Your Medications These medications were sent to [facility] [place], [place] - [address] [facility] [id number] acetaminophen 500 MG tablet allopurinol 300 MG [...] Sternotomy, coronary artery bypass grafting, endoscopic vein ytyeefa-gkmwi-lrwdaky saphenous. Vein the ascending aorta the 1st [...] Center 04/14/2025 3:40 PM Musa Rosado MD [facility] 06/13/2025 11:40 AM Sonia Medley MD [facility] PAC Test Results Pending At Discharge Pending [...] present and normoactive x 4 quadrants SKIN: [place], warm, and dry. No rash, sores, or [...] CAD, CKD, HLD, T2DM, Afib presented to [facility] for CABG on 03/22. Endocrine Diabetes [...] with patient, family member, primary team, bedside seismology teacher planning -Diabetes education: not needed -Follow-up plan: [...] via secure chat or page us at [phone] during 7a-7p, Friday-Friday. For after hours please [...] BID heparin (porcine), 5,000 Units, Subcutaneous, q8h [facility] insulin glargine-yfgn, 34 Units, Subcutaneous, Nightly [...] Transfer Exam: Sit to stand Level of [place]: Stand-by assist Physical/Nonphysical Assist: Supervision Assistive Device: Hand held assist Transfer Exam: Stand to Sit Level of [place]: Stand-by assist Physical/Nonphysical Assist: Supervision Assistive Device: [...] * Progress Notes - Ulices Merajessa Benitez, FIELD MARKETING DIRECTOR - 03/29/2025 8:47 AM EDT Endocrine - [...] CAD, CKD, HLD, T2DM, Afib presented to [facility] for CABG on 03/22. Endocrine Diabetes [...] via secure chat or page us at [phone] during 7a-7p, Friday-Friday. For after hours please [...] BID heparin (porcine), 5,000 Units, Subcutaneous, q8h [facility] insulin glargine-yfgn, 30 Units, Subcutaneous, Nightly [...] Sternotomy, coronary artery bypass grafting, endoscopic vein dnawzim-sovhu-mywtcsv saphenous. Vein the ascending aorta the 1st [...] Note Lizandro Gr 45 y.o. male CSN: [id number] Room/Bed 119/119A Nutrition evaluation type: follow-up Reason [...] 31.03 Weight Evaluation: Obese-Class 1 (BMI 30-34.9) [place] Body Weight (kg): 80.9 Percent [place] Body Weight: 128 Adjusted Body Weight (kg): 86.9 Estimated Needs: Kcal/ K-25 Kcal Provided: 5935-1091 Metabolic Cart Study Results: Current Nutrition Intake: Diet Supplements: Impact AR Diet Order: Adult Diet Diet Texture: Regular Adult Carbohydrate Restriction: Consistent CHO 2 (3192-8153 Alex, 80 g/meal) Adult Sodium Restriction: No added salt Percent Meals Eaten (%): 50-100% x 5 days Diet Experience and Nutrition History: Diet Education Provided: Will monitor Pertinent home medications: Islam needs: Nutrition Focused Physical Exam: Unable to [...] Sternotomy, coronary artery bypass grafting, endoscopic vein eqjkknx-ohyan-odoosad saphenous. Vein the ascending aorta the 1st [...] Note Lizandro Gr 45 y.o. male CSN: [id number] Admission: 03/22/2025 5:35 AM Primary Problem: CAD [...] Pastoral Care Note: Patient was appreciative of irrigation technician's visit. was on the bed side supporting him. The chaplainprovided patient supportive listen, emotional support and spiritual support. The family appreciate irrigation technician as they informed the irrigation technician that they maybe discharged today. Referral From: [employer] Counter Person Initiated Pastoral Care Provided For: Patient, Spouse [...] Expresses feeling spiritually nurtured, Appreciative of [employer] Counter Person Support, Communicates increased satisfaction with hospital experience, Is functionally engaged in meaning making, Demonstrates and/or verbalizes increased comfort Cosigned by Eva French at 03/31/2025 9:46 AM EDT Associated attestation - Eva French - 03/31/2025 9:46 AM EDT This is to attest irrigation technician qa intern chart note has been reviewed and okayed. * Progress Notes - Maritza Khanna, FIELD MARKETING DIRECTOR - 03/28/2025 8:05 AM EDT -Subjective Lizandro Gr is a 45 y.o. male PMH CAD, CKD, HLD, T2DM, Afib presented to [facility] for CABG on 03/22. 24 hr [...] CAD, CKD, HLD, T2DM, Afib presented to [facility] for CABG on 03/22. Endocrine Diabetes [...] via secure chat or page us at [phone] during 7a-7p, Sun-Sat. For after hours, weekends, [...] Prevention: activity supervised assistive device/personal items within [facility] fall prevention program maintained clutter-free environment maintained [...] Prevention: activity supervised assistive device/personal items within main campus medical center fall prevention program maintained clutter-free environment maintained [...] CAD, CKD, HLD, T2DM, Afib presented to [facility] for CABG on 03/22. 24 hr [...] CAD, CKD, HLD, T2DM, Afib presented to [facility] for CABG on 03/22. Endocrine Diabetes [...] via secure chat or page us at [phone] during -7p, Sun-Sat. For after hours, weekends, [...] Sternotomy, coronary artery bypass grafting, endoscopic vein avaknqf-vthtu-siioehf saphenous. Vein the ascending aorta the 1st [...] BID heparin (porcine), 5,000 Units, Subcutaneous, q8h [facility] insulin glargine-yfgn, 30 Units, Subcutaneous, Nightly [...] Sternotomy, coronary artery bypass grafting, endoscopic vein hxhgdtd-pvmaa-qxbcyhp saphenous. Vein the ascending aorta the 1st [...] as able. Escalate bowel regimen. Cardiothoracic Surgery [phone] [1] acetaminophen, 650 mg, Oral, q6h [facility] allopurinol, 300 mg, Oral, Daily aspirin, 81 mg, Oral, Daily atorvastatin, 80 mg, Oral, Nightly colchicine, 0.6 mg, Oral, BID docusate sodium, 100 mg, Oral, BID fenofibrate, 145 mg, Oral, Daily furosemide, 40 mg, Oral, Daily gabapentin, 300 mg, Oral, BID heparin (porcine), 5,000 Units, Subcutaneous, q8h [facility] insulin glargine-yfgn, 26 Units, Subcutaneous, Nightly [...] chloride, sodium chloride * Progress Notes - Maritaz Khanna APRN - 03/26/2025 7:39 AM EDT Subjective Lizandro Gr is a 45 y.o. male PMH CAD, CKD, HLD, T2DM, Afib presented to [facility] for CABG on 03/22. 24 hr [...] via secure chat or page us at [phone] during 7a-7p, Sun-Sat. For after hours, weekends, holidays please contact the on-call Endocrine Fellow. Thank you for allowing us to participate in the care of this patient. * Consults - Beverly Ferguson RN - 03/25/2025 10:00 PM EDT Primary team d/c IV ENDBAND SIZER earlier today. * Care Plan - Zaida [...] CAD, CKD, HLD, T2DM, Afib presented to [facility] for CABG on 03/22. 24 hr [...] diabetes mellitus with neuropathy (CMS/HCC) Atrial fibrillation ([facility]) Postoperative pain Lizandro Gr is a 45 y.o. male PMH CAD, CKD, HLD, T2DM, Afib presented to [facility] for CABG on 03/22. Endocrine Diabetes [...] via secure chat or page us at [phone] during 7a-7p, Sun-Sat. For after hours, weekends, [...] Sternotomy, coronary artery bypass grafting, endoscopic vein rsjnvza-usdnj-yqiyafd saphenous. Vein the ascending aorta the 1st [...] Transfer Exam: Sit to stand Level of [place]: Contact guard Physical/Nonphysical Assist: Supervision, Verbal Cues, Minimal cues Assistive Device: Rollator Transfer Exam: Stand to Sit Level of [place]: Contact guard Physical/Nonphysical Assist: Minimal cues, Supervision, [...] depression, for respiratory rate < 10 IV ENDBAND SIZER hydromorphone 1mg/ml 0.2mg q6min - CABG. Takes tramadol and gabapentin at home Blood pressure 119/50, pulse 89, temperature 37.5 ??C (99.5 ??F), temperature source Oral, resp. rate 22, height 1.829 m (6'), weight 108 kg (238 lb 8.6 oz), SpO2 93%. Please Contact Acute Pain Service with any additional questions or concerns via [employer]. * Progress Notes - Katlin Jaffe, NATHANIEL - 03/25/2025 10:38 AM EDT Pain Consult Follow-Up Note Reason for Follow-up: Acute Pain Condition, Chronic Pain Condition, Multimodal pain management, ENDBAND SIZER- Transition Off, and Postoperative Pain Control Subjective: Lizandro Gr is a 45 y.o. male admitted on 03/22/2025 with PMH HTN, HLD, DM2 with neuropathy,CKD3 and GERD who presented to [facility] for planned CABG. Post op he was started on the typical post-CABG pain regimen with MMPC Gabapentin, Robaxin, Lidocaine patch as well as opioids with Dilaudid and Oxycodone which was unsuccessful in treating his pain so Inpatient Pain Service was consulted for ENDBAND SIZER which was started on 03/23/25. Today, primary team plans to transition of dilaudid IV ENDBAND SIZER and requests PO recommendations for oral dilaudid given oxycodone being ineffective for him previously. Mr. Gr is seen sitting [facility]. He is calm and relaxed on my visit. He reports the dilaudid IV ENDBAND SIZER has worked well to control his pain. I discussed with him the plan to transition off the IV ENDBAND SIZER onto a oral pain regimen with dilaudid. [...] 300 mg Oral BID HYDROmorphone 1 mg/mL ENDBAND SIZER (naive protocol) no dose Intravenous Continuous HYDROmorphone [...] Wean Plan Created, Pain TreatmentPreferences Discussed, and ENDBAND SIZER- Transition off Assessment: Mr. Gr has acute on chronic, opioid tolerant, well controlled somatic pain s/p CABG. Post op he was started on MMPC and PO/IV PRN opioids; however, these were unsuccessful in treating his pain so a Dilaudid IV ENDBAND SIZER was started on 03/23/25. Primary team has requested PO recommendations with oral dilaudid with plans to transition off ENDBAND SIZER today. Recommendations: - Discontinue IV ENDBAND SIZER and start: - Dilaudid 4 mg PO Q4H PRN - Give first dose 30 minutes prior to discontinuing IV ENDBAND SIZER - Dilaudid 0.5 mg IV Q4H PRN [...] respiratory compromise and/or . Katlin Jaffe, MSN, [facility]- Department of Anesthesiology, Perioperative, Critical Care and [...] control - Pain Team consulted for IV ENDBAND SIZER - Scheduled tylenol, robaxin, gabapentin - 03/25 - discontinue IV ENDBAND SIZER, Pain to provide PO recommendations * Jh Horton - Katlin Chaney RN - 03/25/2025 8:20 AM EDT Images from the original note were not included. [id number] Recovery From Heart Surgery: The First Few [...] stop Last Reviewed Date: 2024 00:00:00 ?? [id number] The CompleteSet. All rights reserved. This information is not [...] ? Natural and processed cheeses such as Algerian, blue, mozzarella, and English Meat and protein substitutes Special instructions: ? [...] ? Oat meal ? Whole wheat ? Christine ? Pumpernickel ? White ? Raisin ? Crackers prepared without butter, lard, coconut, or palm oil ? Dry cereals that contain allowed fats ? Rice and pasta prepared with allowed fats ? Egg noodles (limit to ?? cup per day) ? Egyptian ? Barbadian ? Honduran muffins ? Pancakes, waffles, biscuits, and cornbread made with allowed ingredients ? Flat bread ? Luis crackers ? Matzoh crackers ? Whole grain or enriched cereals prepared with allowed oils ? Wheat germ Avoid: ? Egg or cheese bread ? Butter rolls ? Commercially prepared products: biscuits, muffins, sweet rolls, cornbread, pancakes and waffles, sinhala toast, croissants ? Noodles ? Cheese crackers ? Flavored crackers prepared with saturated fats ? Any cereal prepared with saturated fat ? South Sudanese noodles ? Rice and pasta prepared with eggs, cream, or high fat cheese Fruits Choose: ? Any fresh, frozen, canned, or dried fruit or juice ? Avocado Vegetables Choose: ? Any fresh, frozen, or canned vegetables ? Potatoes prepared with allowed fat ? Olives (limit to 10 small or 5 large per day) Avoid: ? Buttered, creamed, or fried vegetables ? Wund-x-xfuzp, commercially made ? Vegetables prepared in a [...] sizes are listed below: ? Nuts: The [place] Heart Association recommends including 5 servings of [...] avocado oil, etc.: 1 tablespoon o The [place] Heart Association recommends limiting oils to 3 [...] ingredients ? Sorbet ? Ice milk ? Patriot ? Gum drops ? Jelly beans ? [...] saturated fats, cheese, and/or egg yolks ? Falconer chips ? Potato chips and other snack [...] much from the food you eat. Use H?REL to Help Build Your Meals The T3Mediacker can help you plan and track your meals and activity. You can look up individual foods to see or compare their nutritional value. You can get guidelines for what and how much you should eat. You can compare your food choices. And you can assess personal physical activities and see ways you can improve. Go to www.[place].gov/KIT digitalcker/. Eating Heart-Healthy Food: Using the DASH Plan [...] from the original note were not included. 20113 Eating Heart-Healthy Foods Eating has a big [...] judy. Last Reviewed Date: 2022 00:00:00 ?? [id number] The CompleteSet. All rights reserved. This information is not intended as a substitute for professional medical care. Always follow your healthcare professional's instructions. * Jh Horton - Katlin Chaney RN - 03/25/2025 8:20 AM EDT Images from the original note were not included. 58902 After Bypass Surgery: Reaching, Bending, and Lifting [...] your shoulders and hips in line. ? sign hanger supervisor the object and hold it close [...] directions. Last Reviewed Date: 2024 00:00:00 ?? [id number] The CompleteSet. All rights reserved. This information is not intended as a substitute for professional medical care. Always follow your healthcare professional's instructions. * Jh ArmstrongIR - Katlin Chaney RN - 03/25/2025 8:20 AM EDT Images from the original note were not included. 24034 After Bypass Surgery: Getting Up and Out [...] do. Last Reviewed Date: 2024 00:00:00 ?? [id number] The CompleteSet. All rights reserved. This information is not intended as a substitute for professional medical care. Always follow your healthcare professional's instructions. * Progress Notes - Shivani aTn MD - 03/25/2025 8:18 AM EDT Procedures 03/25/25 Lizandro Gr HPI Lizandro Gr is a 45 y.o. male who presents with CAD (coronary artery disease). If applicable, patient is s/p Procedure(s) and Anesthesia Type: * CABG, 2 OR MORE VESSELS - General. Patient is 3 Days Post-Op with Cardiothoracic Surgery. Past 24 hours: PM: NAEON. AM: HDS on 4L NC. Transition from ENDBAND SIZER to oral regimen. DC central line. No [...] cooperative. Results Review {Vanishing Link Review Results :[id number] I have reviewed the latest lab and [...] control - Pain Team consulted for IV ENDBAND SIZER - Scheduled tylenol, robaxin, gabapentin - 03/25 - discontinue IV ENDBAND SIZER, Pain to provide PO recommendations Non-Hospital Problems Microalbuminuria Type 2 diabetes mellitus with stage 2 chronic kidney disease, with long-term current use of insulin([facility]) Obesity (BMI 30-39.9) Shivani Tan MD [...] department on the 1st floor of the [facility] near [facility] for a chest x-ray. Then go [...] your incisions. Do NOT lift, push, or pick pulling machine operator 5 pounds for six [...] Katlin Chaney CT Surgery Nurse Navigator at [phone] Friday through Friday 7am- 3:30pm [facility] [phone] after 3:30 pm, weekends and holidays - ask for the CT surgeon land lease information clerk. * Progress Notes - Meera Ibarra RN - 03/25/2025 8:15 AM EDT Case Management Adult Progress Note Lizandro Gr 45 y.o. male CSN: [id number] Admission: 03/22/2025 5:35 AM Primary Problem: CAD (coronary artery disease) Anticipated Discharge Date: tbd Additional Comments: LISSY SILVESTRE reviewed chart and met with primary team to discuss plan of care. Patient is not medically ready for discharge at this time, transfer to telemetry. LISSY SILVESTRE will continue to follow. Update: CM placed rollator referral with [facility]. Meera Ibarra RN * Progress Notes [...] statin, beta daniel -mmpc, attempt wean off import/export agent -po diuresis -remove leg drain and pacing [...] mg with IVPCA. Encouraged patient to use ENDBAND SIZER button to help with pain control. Follow-Up: Follow-Up: Will continue to monitor and adjust as needed. Acute Pain Service Comments: Pain Service comments: Will continue ENDBAND SIZER and/ or infusion until primary service decides it is appropriate to discontinue ENDBAND SIZER and/ or infusion. * Care Plan - [...] CAD, CKD, HLD, T2DM, Afib presented to [facility] for CABG on 03/22. Endocrine Diabetes [...] CAD, CKD, HLD, T2DM, Afib presented to [facility] for CABG on 03/22. Endocrine Diabetes [...] management discussed with patient, family member, bedside seismology teacher planning -Diabetes education: likely not needed -Follow-up [...] via secure chat or page us at [phone] during -7p, Friday-Friday. For after hours please [...] tablet 650 mg 650 mg Oral q6h [facility] Musa Sargent DO 650 mg at [...] injection 5,000 Units 5,000 Units Subcutaneous q8h [facility] Marquise Raygoza MD 5,000Units at 03/24/25 1408 HYDROmorphone 1 mg/mL ENDBAND SIZER (naive protocol) Intravenous Continuous Fritz Mccracken MD [...] 500 mg Oral 4x daily Lisa Castro FIELD MARKETING DIRECTOR 500 mg at 03/24/25 1408 metoprolol tartrate [...] mg 40 mg Oral Daily Lisa Castro FIELD MARKETING DIRECTOR 40 mg at 03/24/25 0826 phosphorus (K [...] 24 Hrs: No acute events. On IV ENDBAND SIZER. OOBC. OBJECTIVE All laboratory data, images, tracings, [...] Result Date: 03/24/2025 Interval removal of the [place]-Brea catheter. Otherwise no significant interval change. CRITICAL [...] Will send referral to patients preferred location, [facility]. [place] will contact Mr. Gr to discuss and [...] rehabilitation program. 2. Eligibility: CABG 3. Exceptions/exclusions: [facility] Cardiac Rehab Exclusions: None 4. Referral: [facility] Cardiac Rehab Referral: Patient will consider participating in a cardiac rehabilitation program. Patient was provided with contact information for the following program([facility] [place] [phone]. 5. Information sent: Information Sent: Appropriate information [...] control - Pain Team consulted for IV ENDBAND SIZER - Restart home gabapentin when appropriate * [...] round, and reactive to light. Neck: Comments: [facility] Cardiovascular: Pulses: Normal pulses. Heart sounds: Normal [...] cooperative. Results Review {Vanishing Link Review Results :[id number] I have reviewed the latest lab and [...] control - Pain Team consulted for IV ENDBAND SIZER - Restart home gabapentin when appropriate Non-Hospital Problems Microalbuminuria Type 2 diabetes mellitus with stage 2 chronic kidney disease, with long-term current use of insulin([facility]) Obesity (BMI 30-39.9) Shivani Tan MD [...] tablet 650 mg 650 mg Oral q6h [facility] gabapentin (Neurontin) capsule 300 mg 300 mg Oral BID HYDROmorphone 1 mg/mL ENDBAND SIZER (naive protocol) no dose Intravenous Continuous HYDROmorphone [...] Medications Medication Name Dose Route Frequency IV ENDBAND SIZER hydromorphone 1mg/ml 0.2mg q6min - CABG. Takes tramadol and gabapentin at home Blood pressure (!) 158/83, pulse 90, temperature (!) 38.4 ??C (101.1 ??F), temperature source Bladder, resp. rate 20, height 1.829 m (6'), weight 103 kg (227 lb 15.3 oz), SpO2 93%. Please Contact Acute Pain Service with any additional questions or concerns via FaceBuzz Secure Bill Me Later orpage [phone]. * Consults - Katie Rodrigez RN - [...] reports that pain is much improved with ENDBAND SIZER. Encouraged patient to push ENDBAND SIZER button more frequently for better pain control [...] 300 mg Oral BID HYDROmorphone 1 mg/mL ENDBAND SIZER (naive protocol) no dose Intravenous Continuous HYDROmorphone [...] depression, for respiratory rate < 10 IV ENDBAND SIZER hydromorphone 1mg/ml 0.2mg q6min - CABG. Takes tramadol and gabapentin at home Blood pressure (!) 158/83, pulse 83, temperature 37.6 ??C (99.7 ??F), temperature source Bladder, resp. rate 12, height 1.829 m (6'), weight 107 kg (236 lb 8.9 oz), SpO2 95%. Please Contact Acute Pain Service with any additional questions or concerns via The Bully Tracker orpaExcel Business Intelligence [phone]. * Consults - Matilde Leon RD - 03/23/2025 3:03 PM EDTAssociated Order(s): IP CONSULT TO NUTRITION SERVICES Adult Nutrition Evaluation Note Lizandro Gr 45 y.o. male CSN: [id number] Room/Bed 213/213A Nutrition evaluation type: assessment Reason [...] 32.08 Weight Evaluation: Obese-Class 1 (BMI 30-34.9) [place] Body Weight (kg): 80.9 Percent [place] Body Weight: 130 Adjusted Body Weight (kg): 86.9 Estimated Needs: Kcal/ K-25 Kcal Provided: 2304-5243 Metabolic Cart Study Results: Current Nutrition Intake: Diet Order: Adult Diet Diet Texture: Clear liquid Percent Meals Eaten (%): establishing Diet Experience and Nutrition History: Diet Education Provided: Will monitor Pertinent home medications: Islam needs: Nutrition Focused Physical Exam: Unable to [...] x 4 03/22/2025 On mechanically assisted ventilation ([facility]) 03/22/2025 Electrolyte abnormality 03/22/2025 GERD (gastroesophageal reflux disease) 03/22/2025 Anemia 03/22/2025 Poorly 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 ([facility]) 03/22/2025 Atrial fibrillation ([facility]) 03/22/2025 Postoperative pain 03/22/2025 CAD (coronary [...] admission Level of Mobility: Ambulatory- community Mobility [place]: Independent gait without device History of Falls: [...] Transfer Exam: Sit to stand Level of [place]: Moderate assist (50% patient's effort) Physical/Nonphysical Assist: Verbal Cues, Maximal cues, Additional assist utilized for safety Assistive Device: Rollator Transfer Exam: Stand to Sit Level of [place]: Moderate assist (50% patient's effort) Physical/Nonphysical Assist: [...] to ambulation, pt administered pain relief via ENDBAND SIZER pump. Pt then ambulated into hallway and required verbal cueing for upright posture, pacing, and proximity to AD. Pt did not require any rest breaks throughout mobility. Pt positioned for comfort at end of session. Standardized Assessments [facility] 6-Clicks Mobility Assessment Difficulty patient has turning [...] 3-5 steps with a railing?: A lot [facility] 6-Clicks Mobility Assessment Total : 15 No [...] x 4 03/22/2025 On mechanically assisted ventilation ([facility]) 03/22/2025 Electrolyte abnormality 03/22/2025 GERD (gastroesophageal reflux disease) 03/22/2025 Anemia 03/22/2025 Poorly 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 ([facility]) 03/22/2025 Atrial fibrillation ([facility]) 03/22/2025 Postoperative pain 03/22/2025 CAD (coronary [...] admission Level of Mobility: Ambulatory- community Mobility [place]: Independent gait without device History of Falls: No ADL Performance: Independent Patient/Family Goals Statement To get better and go home. Objective Pain 8/10 sternal pain RN aware, pillow support provided and ENDBAND SIZER used throughout. Delirium Screening [place] Agitation Sedation [...] Mobility Exam: Supine to Sit Level of [place]: (Not observed- found and left up in recliner) Transfers Transfer Exam: Sit to stand Level of [place]: Moderate assist (50% patient's effort) Physical/Nonphysical Assist: Verbal Cues, Maximal cues, Additional assist utilized for safety Assistive Device: Rollator Transfer Exam: Stand to Sit Level of [place]: Moderate assist (50% patient's effort) Physical/Nonphysical Assist: [...] continued education to improve carryover. Standardized Assessments [facility] 6-Click Daily Activities Help from Other: Don/Doff Regular Lower Body Clothings: A lot Help From Other: Bathing: A lot Help From Other: Toileting: A lot Help From Other: Don/Doff Upper Body Clothings: Little Help From Other: Grooming: Little Help From Other: Eating Meals: None [facility] 6 Click - Daily Activities Score: [...] Note Lizandro Gr 45 y.o. male CSN: [id number] Admission: 03/22/2025 5:35 AM Primary Problem: CAD (coronary artery disease) Clinical Research Tech reviewed chart and spoke with the patient at bedside to complete this Initial Case Management Assessment. PCP: David Iverson MD Emergency Contact: Extended Emergency Contact Information Primary Emergency Contact: Alissa Gr Mobile Relation: Daughter Preferred language: Honduran Turn Machine Operator needed? No Secondary Emergency Contact: VALENTINO MENESES Mobile Relation: Significant Other Preferred language: Honduran Turn Machine Operator needed? No Insurance: Primary Visit Coverage Payer Plan Sponsor Code Group Number Group Name HUMANA MEDICARE HUMANA GOLD PLUS [id number] Primary Visit Coverage Subscriber Subscriber ID Subscriber Name Subscriber SSN Subscriber Address [id number] LIZANDRO GR [id number] [address] [place] [address] Patient information: Primary Caregiver: Self Accompanied by/Relationship: significant other Support System: Immediate family Daily Living Activities: Functional Status: Independent Living Arrangements: Family Type of Residence: Private residence, Single Level [address] [place] [address] Current DME: Equipment Currently Used at Home: [...] Dialysis Services: n/a Living Will/Advance Directive/Power of Offset Label Rewinder /Guardian: Unable to assess: No Have you [...] [place]. Has [employer] Medicare insurance and uses [facility] in [place]. Significant other to transport and assist as [...] * Assessment & Plan Note - Krunal Gadlamez MD - 03/23/2025 12:45 PM EDT Associated [...] control - Pain Team consulted for IV ENDBAND SIZER - Restart home gabapentin when appropriate * [...] round, and reactive to light. Neck: Comments: [facility] Cardiovascular: Pulses: Normal pulses. Heart [...] cooperative. Results Review {Vanishing Link Review Results :[id number] I have reviewed the latest lab and imaging results. Assessment and Plan: This patient is critically ill. Assessment & Plan CAD (coronary artery disease) Present on Admission: Unknown - s/p 4vCABG on 03/[address] Rosado S/P CABG x 4 Present on Admission: Not Applicable - ASA, statin, beta daniel - Monitor chest tube output On mechanically assisted ventilation ([facility]) Present on Admission: Not Applicable - Wean [...] 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 ([facility]) Present on Admission: Unknown - Continue Insulin gtt until eating more, will likely need basal-bolus regimen - will consider endo consult if glycemic control is difficult - On tramadol and gabapentin at home for neuropathy - will restart gabapentin after extubated Hemoglobin A1c Date Value Ref Range Status 02/17/2025 7.2 (H) <5.7 % Final Atrial fibrillation ([facility]) Present on Admission: Unknown - In [...] control - Pain Team consulted for IV ENDBAND SIZER - Restart home gabapentin when appropriate Non-Hospital Problems Microalbuminuria Type 2 diabetes mellitus with stage 2 chronic kidney disease, with long-term current use of insulin([facility]) Obesity (BMI 30-39.9) Shivani Tan MD [...] 300 mg Oral BID HYDROmorphone 1 mg/mL ENDBAND SIZER (naive protocol) no dose Intravenous Continuous HYDROmorphone [...] Medications Medication Name Dose Route Frequency IV ENDBAND SIZER hydromorphone 1mg/ml 0.2mg q6min - CABG. Takes tramadol and gabapentin at home Blood pressure (!) 158/83, pulse 71, temperature 37.3 ??C (99.1 ??F), temperature source Core, resp. rate 15, height 1.829 m (6'), weight 107 kg (236 lb 8.9 oz), SpO2 95%. Please Contact Acute Pain Service with any additional questions or concerns via The Bully Tracker orpaSmart Energy Instruments. * Consults - Segun Tam RN - 03/23/2025 9:05 AM EDT RN Pain Assessment Lizandro Gr is a 45 y.o. male General Information: Referring Physician/ Service: Musa Rosado MD Patient History Reviewed: Yes Medical History: Principal Problem: CAD (coronary artery disease) Active Problems: CKD (chronic kidney disease) stage 2, GFR 60-89 ml/min Hypertension HLD (hyperlipidemia) S/P CABG x 4 On mechanically assisted ventilation ([facility]) Electrolyte abnormality GERD (gastroesophageal reflux disease) Anemia Poorly 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 ([facility]) Atrial fibrillation ([facility]) Postoperative pain Pertinent Home Medications: Prior [...] day. Chavez Lambert MD Easy Touch Pen [place] 31G X 8 MM misc 04/18/23 Chavez [...] 300 mg Oral BID HYDROmorphone 1 mg/mL ENDBAND SIZER (naive protocol) no dose Intravenous Continuous HYDROmorphone [...] Pain Service Plan: Plan: Place on IV ENDBAND SIZER IV ENDBAND SIZER request - CABG dilaudid 1 mg/ml ENDBAND SIZER settin.2 mg q 6 minutes Basal rate: none Various methods of pain control discussed with patient and/ or family: Yes Discussed with doctor: Yes Please Contact Inpatient Pain Service with any additional questions or concerns via FaceBuzz Secure Chat or page [phone]. [1] No Known Allergies [2] Social History Tobacco Use Smoking Status Never Passive exposure: Never Smokeless Tobacco Never * Consults - Loretta Horn, FIELD MARKETING DIRECTOR - 03/23/2025 8:37 AM EDT Pain Consult Note Reason for Consult: ENDBAND SIZER request, Postoperative Pain Control , Chronic pain condition, Acute pain condition, and Multimodal pain management Ordering Provider: Musa Rosado MD History of Present Illness Lizandro Gr is a 45 y.o. male admitted on 03/22/2025 with PMH HTN, HLD, DM2 with neuropathy,CKD3 and GERD who presented to [facility] for planned CABG. Post op he was started on the typical post-CABG pain regimen with MMPC Gabapentin, Robaxin, Lidocaine patch as well as opioids with Dilaudid and Oxycodone. These have apparently been unsuccessful in treating his pain so Inpatient Pain Service was consulted for ENDBAND SIZER. Today Mr. Gr is seen resting in [...] Neck: Comments: Right IJ MAC introducer with [place] Brea in place Musculoskeletal: Comments: Decreased ROM [...] kg/m?? Results Review {Vanishing Link Review Results :[id number] I have reviewed the latest lab and [...] Opioids Adjusted, Pain Treatment Preferences Discussed, and ENDBAND SIZER- Started Assessment: Mr. Gr has acute on chronic, opioid tolerant, uncontrolled somatic pain s/p CABG. Post op he was started on MMPC and PO/IV PRN opioids; however, these were unsuccessful in treating his pain so he will be initiated on a Dilaudid IV ENDBAND SIZER today. Recommendations: - Start Dilaudid IV ENDBAND SIZER @ 0.2 mg Q6M lockout - Start [...] risk due to initiation of Dilaudid IV ENDBAND SIZER with potential for life threatening complications including overdose, respiratory compromise and/or . Loretta Horn, MSN, [facility] Department of Anesthesiology, Perioperative, Critical [...] dose of paralytic was given at 1420. [facility] was consulted for ICU management post-operatively. [...] Allergies Patient has no known allergies. GCS: [place] Coma Scale Score: 15 Review of Systems [...] present. Results Review {Vanishing Link Review Results :[id number] I have reviewed the latest lab and [...] (one) time each day. Easy Touch Pen [place] 31G X 8 MM misc hydroCHLOROthiazide (HYDRODiuril) [...] Sternotomy, coronary artery bypass grafting, endoscopic vein agcjlgp-moykj-iwqezat saphenous. -Vein the ascending aorta the 1st [...] stage 2 chronic kidney disease and hypertension ([facility]) Obesity (BMI 30-39.9) Procedure(s): Median Sternotomy, coronary artery bypass grafting, endoscopic vein [id number] saphenous. -Vein the ascending aorta the 1st [...] - Primary * Murali Gomez - Assisting Structures Assembler(s): * Marquise Raygoza MD - Resident - Assisting Murali Gomez PAC performed endoscopic vein harvest. Marquise Raygoza emptying PGY 5-was 1st title i assistant through the entire case Anesthesia: General [...] was induced, monitoring lines were placed, a [place]-Brea catheter was floated into position and a [...] examined no active bleeding was noted. 1-24 Barbadian tube was placed in the patient's right pleural cavity, 1-28 Barbadian cannula was placed in the left cavity, 1-36 Barbadian mediastinal tube was placed. Chest tubes and [...] by Dr. Gonzalez in regards to recent [facility] with results indicating multi-vessel coronary artery [...] visit. Results Review {Vanishing Link Review Results :[id number] I have reviewed the latest lab and [...] Description 04/14/2025 3:40 PM EDT Office Visit [facility] Cardiothoracic [address], [facility] [address] [place] [address] Musa Rosado MD [address] [address] 06/13/2025 11:40 AM EDT Office Visit [facility] Nephrology, Bone & Mineral Metabolism [address] [facility], [address] [place] [address] Sonia Medley MD [address] [facility] [address] [place] [address] Pending Results Name Type Priority [...] Care Plan Autogenerated Problem No Zulay Syed, FIELD MARKETING DIRECTOR documented as of this encounter Procedures Procedure [...] UNSOLICITED RESULTS Routine 03/24/2025 11:44 AM EDT [facility], E/M 30-74 MINUTES Routine 03/24/2025 [...] UNSOLICITED RESULTS Routine 03/23/2025 1:57 PM EDT [facility], E/M 30-74 MINUTES Routine 03/23/2025 [...] 1 VIEW STAT 03/22/2025 4:46 PM EDT [facility], E/M 30-74 MINUTES Routine 03/22/2025 [...] UNSOLICITED RESULTS Routine 03/22/2025 7:57 AM EDT [place] CABG, VEIN, THREE 03/22/2025 7:26 AM EDT Coronary artery disease due to calcified coronary lesion CKD (chronic kidney disease) stage 2, GFR 60-89 ml/min 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 ([facility]/HCC) Obesity (BMI 30-39.9) APTT Routine 03/22/2025 6:32 [...] Comment 03/30/2025 8:34 AM EDT [facility] Sports Betting Manager ID Katlin Cheung 03/30/2025 8:34 AM EDT HEALTHCARE LAB Device ID [id number] 03/30/2025 8:34 AM EDT [facility] Specimen Type POC Capillary 03/30/2025 8:34 AM EDT [facility] Blood Capillary blood specimen / Unknown 03/30/2025 8:32 AM EDT 03/30/2025 8:34 AM EDT us Musa Rosado MD LAB POINT OF CARE TE ST DOCKED DEVICE UNSOLICITED RESULTS Final Result [facility] [address] [place] [address] * XR Chest 2 Views (03/30/2025 6:47 [...] on 03/30/2025 9:29 AM us Ephraim Hicks FIELD MARKETING DIRECTOR IMG XR PROCEDURES Final Resu lt * (ABNORMAL) Basic Metabolic Panel, Plasma (03/30/2025 3:47 AM EDT) Glucose, Plasma 172(H) 74 - 99 mg/dL 03/30/2025 5:[address] [facility] BUN, Plasma 28(H) 7 - 21 mg/dL 03/30/2025 5:[address] [facility] Creatinine, Plasma 1.18 0.70 - 1.20 mg/dL 03/30/2025 5:[address] [facility] BUN/Creatinine Ratio 24 03/30/2025 5:[address] [facility] Sodium, Plasma 138 136 - 145 mmol/L 03/30/2025 5:[address] [facility] Potassium, Plasma 4.1 3.6 - 4.9 mmol/L 03/30/2025 5:[address] [facility] Chloride, Plasma 103 97 - 107 mmol/L 03/30/2025 5:[address] [facility] CO2, Plasma 23 22 - 29 mmol/L 03/30/2025 5:[address] [facility] Anion Gap 12 6 - 16 mmol/L 03/30/2025 5:[address] [facility] Total Calcium, Plasma 8.9 8.9 - 10.2 mg/dL 03/30/2025 5:[address] [facility] eGFRcr 78.5 mL/min/1.7 3m*2 03/30/2025 5:[address] [facility] Comment:Reported eGFRcr in m L/min/1.73m2 is based the CKD-EPI 2020 equation that does not use a race coefficient. Blood Venous blood specimen / Unknown Venipuncture / Unknown 03/30/2025 3:47 AM EDT 03/30/2025 4:48 AM EDT us Ephraim Hicks APRN LAB BLOOD ORDERABLES Final R esult [facility] [address] [place] [address] * (ABNORMAL) CBC W/O Differential (03/30/2025 3:47 AM EDT) WBC Count 7.54 3.70 - 10.30 10*3/uL LAB HEMATOLOGY METHOD 03/30/2025 4:[address] [facility] RBC Count 3.01(L) 4.60 - 6.10 10*6/uL LAB HEMATOLOGY METHOD 03/30/2025 4:[address] [facility] HGB 9.0(L) 13.7 - 17.5 g/dL LAB HEMATOLOGY METHOD 03/30/2025 4:[address] [facility] HCT 27.9(L) 40.0 - 51.0 % LAB HEMATOLOGY METHOD 03/30/2025 4:[address] [facility] Platelet Count 286 155 - 369 10*3/uL LAB HEMATOLOGY METHOD 03/30/2025 4:[address] [facility] MCV 93 79 - 98 fL LAB HEMATOLOGY METHOD 03/30/2025 4:[address] [facility] MCH 29.9 26.0 - 32.0 pg LAB HEMATOLOGY METHOD 03/30/2025 4:[address] [facility] MCHC 32.3 30.7 - 35.5 g/dL LAB HEMATOLOGY METHOD 03/30/2025 4:[address] [facility] RDW 14.3 11.5 - 14.5 % LAB HEMATOLOGY METHOD 03/30/2025 4:[address] [facility] MPV 10.7 8.8 - 12.5 fL LAB HEMATOLOGY METHOD 03/30/2025 4:[address] [facility] nRBC 0.4(H) <=0.0 per 100 WBCs LAB HEMATOLOGY METHOD 03/30/2025 4:[address] [facility] Blood Venous blood specimen / Unknown Venipuncture / Unknown 03/30/2025 3:47 AM EDT 03/30/2025 4:51 AM EDT us Ephraim Hicks APRN LAB BLOOD ORDERABLES Final R esult [facility] [address] [place] [address] * (ABNORMAL) POCT glucose meter (03/29/2025 7:20 PM EDT) [facility] POCT Glucose 226(H) 74 - 99 mg/dL [...] 03/29/2025 7:21 PM EDT [facility] Sports Betting Manager ID Guerline Arambula 03/29/20 7:21 PM EDT [facility] Device ID [id number] 03/29/2025 7:21 PM EDT [facility] Specimen Type POC Capillary 03/29/2025 7:21 PM EDT [facility] Blood Capillary blood specimen / Unknown 03/29/2025 7:20 PM EDT 03/29/2025 7:21 PM EDT Musa Rosado MD LAB POINT OF CARE TE ST DOCKED DEVICE UNSOLICITED RESULTS Final Result Performing Organization Address [facility] Co de Phone Number [facility] [address] [place] [address] * (ABNORMAL) POCT glucose meter (03/29/2025 5:33 PM EDT) [facility] POCT Glucose 155(H) 74 - 99 mg/dL [...] 03/29/2025 5:35 PM EDT [facility] Sports Betting Manager ID Kristie Sanon 025 5:35 PM EDT [facility]ALTH[facility]ARE LAB Device ID [id number] 03/29/2025 5:35 PM EDT [facility] Specimen Type POC Capillary 03/29/2025 5:35 PM EDT [facility] Blood Capillary blood specimen / Unknown 03/29/2025 5:33 PM EDT 03/29/2025 5:35 PM EDT us Musa Rosado MD LAB POINT OF CARE TE ST DOCKED DEVICE UNSOLICITED RESULTS Final Result Performing Organization Address [facility] Co de Phone Number [facility] [address] [place] [address] * (ABNORMAL) POCT glucose meter (03/29/2025 12:29 PM EDT) [facility] POCT Glucose 213(H) 74 - 99 [...] 03/29/2025 12:30 PM EDT [facility] Sports Betting Manager ID Kristie Sanon 025 12:30 PM EDT [facility]ALTH[facility]ARE LAB Device ID [id number] 03/29/2025 12:30 PM EDT [facility] Specimen Type POC Capillary 03/29/2025 12:30 PM EDT [facility] Blood Capillary blood specimen / Unknown 03/29/2025 12:29 PM EDT 03/29/2025 12:30 PM EDT Musa Rosado MD LAB POINT OF CARE TE ST DOCKED DEVICE UNSOLICITED RESULTS Final Result [facility] [address] [place] [address] * (ABNORMAL) POCT glucose meter (03/29/2025 8:19 AM EDT) [facility] POCT Glucose 176(H) 74 - 99 [...] 03/29/2025 8:20 AM EDT [facility] Sports Betting Manager ID Kristie Sanon 025 8:20 AM EDT [facility] Device ID [id number] 03/29/2025 8:20 AM EDT [facility] Specimen Type POC Capillary 03/29/2025 8:20 AM EDT [facility] Blood Capillary blood specimen / Unknown 03/29/2025 8:19 AM EDT 03/29/2025 8:20 AM EDT Musa Rosado MD LAB POINT OF CARE TE ST DOCKED DEVICE UNSOLICITED RESULTS Final Result Performing Organization Address [facility] de Phone Number [facility] [address] [place] [address] * (ABNORMAL) POCT glucose meter (03/28/2025 8:02 [...] Comment 03/28/2025 8:04 PM EDT [facility] Sports Betting Manager ID Kathia Carl 03/28/2025 8:04 PM EDT HEALTH[facility]ARE LAB Device ID [id number] 03/28/2025 8:04 PM EDT [facility] Specimen Type POC Capillary 03/28/2025 8:04 PM EDT [facility] Blood Capillary blood specimen / Unknown 03/28/2025 8:02 PM EDT 03/28/2025 8:04 PM EDT Musa Rosado MD LAB POINT OF CARE TE ST DOCKED DEVICE UNSOLICITED RESULTS Final Result Performing Organization Address [facility] de Phone Number [facility] [address] [place] [address] * (ABNORMAL) POCT glucose meter (03/28/2025 4:59 PM EDT) Pathologist [facility] POCT Glucose 164(H) 74 - 99 mg/dL [...] 03/28/2025 5:00 PM EDT [facility] Sports Betting Manager ID Kristie Sanon 025 5:00 PM EDT [facility] LAB Device ID [id number] 03/28/2025 5:00 PM EDT [facility] Specimen Type POC Capillary 03/28/2025 5:00 PM EDT [facility] Blood Capillary blood specimen / Unknown 03/28/2025 4:59 PM EDT 03/28/2025 5:00 PM EDT us Musa Rosado MD LAB POINT OF CARE TE ST DOCKED DEVICE UNSOLICITED RESULTS Final Result Performing Organization Address [facility] Co de Phone Number [facility] [address] [place] [address] * (ABNORMAL) POCT glucose meter (03/28/2025 12:10 PM EDT) [facility] POCT Glucose 243(H) 74 - 99 [...] Comment 03/28/2025 12:12 PM EDT [facility] Sports Betting Manager ID Kristie Sanon 025 12:12 PM EDT [facility] LAB Device ID [id number] 03/28/2025 12:12 PM EDT [facility] Specimen Type POC Capillary 03/28/2025 12:12 PM EDT [facility] Blood Capillary blood specimen / Unknown 03/28/2025 12:10 PM EDT 03/28/2025 12:12 PM EDT us Musa Rosado MD LAB POINT OF CARE TE ST DOCKED DEVICE UNSOLICITED RESULTS Final Result Performing Organization Address [facility]/ZIP Co de Phone Number [facility] [address] [place] [address] * (ABNORMAL) POCT glucose meter (03/28/2025 8:07 [...] 03/28/2025 8:09 AM EDT [facility] Sports Betting Manager ID Kristie Sanon 025 8:09 AM EDT [facility] LAB Device ID [id number] 03/28/2025 8:09 AM EDT [facility] Specimen Type POC Capillary 03/28/2025 8:09 AM EDT [facility] Blood Capillary blood specimen / Unknown 03/28/2025 8:07 AM EDT 03/28/2025 8:09 AM EDT Musa Rosado MD LAB POINT OF CARE TE ST DOCKED DEVICE UNSOLICITED RESULTS Final Result [facility] [address] [place] [address] * XR Chest 2 Views (03/28/2025 6:13 [...] - 2.4 mg/dL 03/28/2025 5:[address] [facility] Blood Venous blood specimen / Unknown Venipuncture / Unknown 03/28/2025 4:35 AM EDT 03/28/2025 4:42 AM EDT La Nena March APRN LAB BLOOD ORDERABLES Final Res ult [facility] [address] [place] [address] * (ABNORMAL) Comprehensive metabolic panel (03/28/2025 4:35 AM EDT) Glucose, Plasma 196(H) 74 - 99 mg/dL 03/28/2025 5:[address] [facility] BUN, Plasma 20 7 - 21 mg/dL 03/28/2025 5:[address] [facility] Creatinine, Plasma 1.13 0.70 - 1.20 mg/dL 03/28/2025 5:[address] [facility] BUN/Creatinine Ratio 18 03/28/2025 5:[address] [facility] Sodium, Plasma 134(L) 136 - 145 mmol/L 03/28/2025 5:[address] [facility] Potassium, Plasma 4.2 3.6 - 4.9 mmol/L 03/28/2025 5:[address] [facility] Chloride, Plasma 102 97 - 107 mmol/L 03/28/2025 5:[address] [facility] CO2, Plasma 22 22 - 29 mmol/L 03/28/2025 5:[address] [facility] Anion Gap 10 6 - 16 mmol/L 03/28/2025 5:[address] [facility] Total Calcium, Plasma 9.1 8.9 - 10.2 mg/dL 03/28/2025 5:[address] [facility] Total Protein 6.3 6.3 - 7.9 g/dL 03/28/2025 5:[address] [facility] Albumin, Plasma 3.6 3.5 - 5.2 g/dL 03/28/2025 5:[address] [facility] AST, Plasma 32 10 - 50 U/L 03/28/2025 5:[address] [facility] ALT, Plasma 35 10 - 50 U/L 03/28/2025 5:[address] [facility] Alkaline Phosphatase, Plasma 67 40 - 115 U/L 03/28/2025 5:[address] [facility] Total Bilirubin, Plasma 0.8 0.2 - 1.1 mg/dL 03/28/2025 5:[address] [facility] eGFRcr 82.7 mL/min/1.7 3m*2 03/28/2025 5:[address] [facility] Comment:Reported eGFRcr in m L/min/1.73m2 is based the CKD-EPI 2020 equation that does not use a race coefficient. Blood Venous blood specimen / Unknown Venipuncture / Unknown 03/28/2025 4:35 AM EDT 03/28/2025 4:42 AM EDT us La Nena March APRN LAB BLOOD ORDERABLES Final Res ult [facility] [address] [place] [address] * (ABNORMAL) Hemogram (CBC) (03/28/2025 4:35 AM EDT) WBC Count 6.01 3.70 - 10.30 10*3/uL LAB HEMATOLOGY METHOD 03/28/2025 5:[address] [facility] RBC Count 2.89(L) 4.60 - 6.10 10*6/uL LAB HEMATOLOGY METHOD 03/28/2025 5:[address] [facility] HGB 8.8(L) 13.7 - 17.5 g/dL LAB HEMATOLOGY METHOD 03/28/2025 5:[address] [facility] HCT 26.6(L) 40.0 - 51.0 % LAB HEMATOLOGY METHOD 03/28/2025 5:[address] [facility] Platelet Count 218 155 - 369 10*3/uL LAB HEMATOLOGY METHOD 03/28/2025 5:[address] [facility] MCV 92 79 - 98 fL LAB HEMATOLOGY METHOD 03/28/2025 5:[address] [facility] MCH 30.4 26.0 - 32.0 pg LAB HEMATOLOGY METHOD 03/28/2025 5:[address] [facility] MCHC 33.1 30.7 - 35.5 g/dL LAB HEMATOLOGY METHOD 03/28/2025 5:[address] [facility] RDW 13.6 11.5 - 14.5 % LAB HEMATOLOGY METHOD 03/28/2025 5:[address] [facility] MPV 10.7 8.8 - 12.5 fL LAB HEMATOLOGY METHOD 03/28/2025 5:[address] [facility] nRBC 0.5(H) <=0.0 per 100 WBCs LAB HEMATOLOGY METHOD 03/28/2025 5:[address] [facility] Blood Venous blood specimen / Unknown Venipuncture / Unknown 03/28/2025 4:35 AM EDT 03/28/2025 4:43 AM EDT us La Nena March FIELD MARKETING DIRECTOR LAB BLOOD ORDERABLES Final Res ult [facility] [address] [place] [address] * (ABNORMAL) POCT glucose meter (03/27/2025 8:18 PM EDT) [facility] POCT Glucose 161(H) 74 - 99 mg/dL [...] Comment 03/27/2025 8:20 PM EDT [facility] Sports Betting Manager ID Mandy Overton 03/27/2025 8:20 PM EDT HEALTHCARE LAB Device ID [id number] 03/27/2025 8:20 PM EDT [facility]ALTH[facility]ARE LAB Specimen Type POC Capillary 03/27/2025 8:20 PM EDT [facility] Blood Capillary blood specimen / Unknown 03/27/2025 8:18 PM EDT 03/27/2025 8:20 PM EDT Musa Rosado MD LAB POINT OF CARE TE ST DOCKED DEVICE UNSOLICITED RESULTS Final Result Performing Organization Address City/State/[facility] Co de Phone Number HEALTHCARE LAB [address] [place] [address] * (ABNORMAL) POCT glucose meter (03/27/2025 5:45 PM EDT) [facility] POCT Glucose 184(H) 74 - 99 [...] 03/27/2025 5:47 PM EDT [facility] Sports Betting Manager ID GunnarLarry 5:47 PM EDT [facility] Device ID [id number] 03/27/2025 5:47 PM EDT [facility] Specimen Type POC Capillary 03/27/2025 5:47 PM EDT [facility] Blood Capillary blood specimen / Unknown 03/27/2025 5:45 PM EDT 03/27/2025 5:47 PM EDT Musa Rosado MD LAB POINT OF CARE TE ST DOCKED DEVICE UNSOLICITED RESULTS Final Result Performing Organization Address [facility] de Phone Number [facility] [address] [place] [address] * (ABNORMAL) POCT glucose meter (03/27/2025 1:04 [...] Comment 03/27/2025 1:06 PM EDT [facility] Sports Betting Manager ID Mary Jo Tracey 03/27/20 1:06 PM EDT HEALTHCARE LAB Device ID [id number] 03/27/2025 1:06 PM EDT [facility] Specimen Type POC Capillary 03/27/2025 1:06 PM EDT [facility] Blood Capillary blood specimen / Unknown 03/27/2025 1:04 PM EDT 03/27/2025 1:06 PM EDT Musa Rosado MD LAB POINT OF CARE TE ST DOCKED DEVICE UNSOLICITED RESULTS Final Result Performing Organization Address [facility] Co de Phone Number [facility] [address] [place] [address] * (ABNORMAL) POCT glucose meter (03/27/2025 8:42 AM EDT) Pathologist [facility] POCT Glucose 211(H) 74 - 99 mg/dL [...] Comment 03/27/2025 8:44 AM EDT [facility]ALTHCARE LAB Sports Betting Manager ID Larry Maher 8:44 AM EDT HEALTHCARE LAB Device ID [id number] 03/27/2025 8:44 AM EDT [facility]ALTH[facility]ARE LAB Specimen Type POC Capillary 03/27/2025 8:44 AM EDT [facility] Blood Capillary blood specimen / Unknown 03/27/2025 8:42 AM EDT 03/27/2025 8:44 AM EDT us Musa Rosado MD LAB POINT OF CARE TE ST DOCKED DEVICE UNSOLICITED RESULTS Final Result Performing Organization Address [facility] Co de Phone Number [facility] [address] [place] [address] * Magnesium (03/27/2025 5:02 AM EDT) Magnesium, Plasma 1.9 1.9 - 2.4 mg/dL 03/27/2025 5:[address] [facility] Blood Venous blood specimen / Unknown Venipuncture / Unknown 03/27/2025 5:02 AM EDT 03/27/2025 5:22 AM EDT us La Nena March APRN LAB BLOOD ORDERABLES Final Res ult [facility] [address] [place] [address] * (ABNORMAL) Comprehensive metabolic panel (03/27/2025 5:02 AM EDT) Glucose, Plasma 200(H) 74 - 99 mg/dL 03/27/2025 5:[address] [facility] BUN, Plasma 18 7 - 21 mg/dL 03/27/2025 5:[address] [facility] Creatinine, Plasma 1.03 0.70 - 1.20 mg/dL 03/27/2025 5:[address] [facility] BUN/Creatinine Ratio 17 03/27/2025 5:[address] [facility] Sodium, Plasma 138 136 - 145 mmol/L 03/27/2025 5:[address] [facility] Potassium, Plasma 4.3 3.6 - 4.9 mmol/L 03/27/2025 5:[address] [facility] Chloride, Plasma 106 97 - 107 mmol/L 03/27/2025 5:[address] [facility] CO2, Plasma 22 22 - 29 mmol/L 03/27/2025 5:[address] [facility] Anion Gap 10 6 - 16 mmol/L 03/27/2025 5:[address] [facility] Total Calcium, Plasma 8.8(L) 8.9 - 10.2 mg/dL 03/27/2025 5:[address] [facility] Total Protein 6.4 6.3 - 7.9 g/dL 03/27/2025 5:[address] [facility] Albumin, Plasma 3.4(L) 3.5 - 5.2 g/dL 03/27/2025 5:[address] [facility] AST, Plasma 21 10 - 50 U/L 03/27/2025 5:[address] [facility] ALT, Plasma 21 10 - 50 U/L 03/27/2025 5:[address] [facility] Alkaline Phosphatase, Plasma 59 40 - 115 U/L 03/27/2025 5:[address] [facility] Total Bilirubin, Plasma 0.8 0.2 - 1.1 mg/dL 03/27/2025 5:[address] [facility] eGFRcr 92.4 mL/min/1.7 3m*2 03/27/2025 5:[address] [facility] Comment:Reported eGFRcr in m L/min/1.73m2 is based the CKD-EPI 2020 equation that does not use a race coefficient. Blood Venous blood specimen / Unknown Venipuncture / Unknown 03/27/2025 5:02 AM EDT 03/27/2025 5:22 AM EDT us La Nena Ng March FIELD MARKETING DIRECTOR LAB BLOOD ORDERABLES Final Res ult [facility] [address] [place] [address] * (ABNORMAL) Hemogram (CBC) (03/27/2025 5:02 AM EDT) WBC Count 5.04 3.70 - 10.30 10*3/uL LAB HEMATOLOGY METHOD 03/27/2025 5:[address] [facility] RBC Count 2.93(L) 4.60 - 6.10 10*6/uL LAB HEMATOLOGY METHOD 03/27/2025 5:[address] [facility] HGB 8.8(L) 13.7 - 17.5 g/dL LAB HEMATOLOGY METHOD 03/27/2025 5:[address] [facility] HCT 27.3(L) 40.0 - 51.0 % LAB HEMATOLOGY METHOD 03/27/2025 5:[address] [facility] Platelet Count 174 155 - 369 10*3/uL LAB HEMATOLOGY METHOD 03/27/2025 5:[address] [facility] MCV 93 79 - 98 fL LAB HEMATOLOGY METHOD 03/27/2025 5:[address] [facility] MCH 30.0 26.0 - 32.0 pg LAB HEMATOLOGY METHOD 03/27/2025 5:[address] [facility] MCHC 32.2 30.7 - 35.5 g/dL LAB HEMATOLOGY METHOD 03/27/2025 5:[address] [facility] RDW 13.7 11.5 - 14.5 % LAB HEMATOLOGY METHOD 03/27/2025 5:[address] [facility] MPV 10.6 8.8 - 12.5 fL LAB HEMATOLOGY METHOD 03/27/2025 5:[address] [facility] nRBC 0.6(H) <=0.0 per 100 WBCs LAB HEMATOLOGY METHOD 03/27/2025 5:[address] [facility] Blood Venous blood specimen / Unknown Venipuncture / Unknown 03/27/2025 5:02 AM EDT 03/27/2025 5:22 AM EDT La Nena March APRN LAB BLOOD ORDERABLES Final Res ult [facility] [address] [place] [address] * XR Chest 1 View (03/27/2025 4:58 [...] Comment 03/27/2025 4:38 AM EDT [facility]ALTHCARE LAB Sports Betting Manager ID Norma Vega 025 4:38 AM EDT HEALTHCARE LAB Device ID [id number] 03/27/2025 4:38 AM EDT HEALTHCARE LAB Specimen Type POC Capillary 03/27/2025 4:38 AM EDT [facility] Blood Capillary blood specimen / Unknown 03/27/2025 4:35 AM EDT 03/27/2025 4:38 AM EDT Musa Rosado MD LAB POINT OF CARE TE ST DOCKED DEVICE UNSOLICITED RESULTS Final Result [facility] [address] [place] [address] * (ABNORMAL) POCT glucose meter (03/26/2025 8:20 PM EDT) [facility] POCT Glucose 260(H) 74 - 99 mg/dL [...] Comment 03/26/2025 8:24 PM EDT HEALTHCARE LAB Sports Betting Manager ID Norma Vega 025 8:24 PM EDT HEALTHCARE LAB Device ID [id number] 03/26/2025 8:24 PM EDT [facility]ALTH[facility]ARE LAB Specimen Type POC Capillary 03/26/2025 8:24 PM EDT [facility] Blood Capillary blood specimen / Unknown 03/26/2025 8:20 PM EDT 03/26/2025 8:24 PM EDT Musa Rosado MD LAB POINT OF CARE TE ST DOCKED DEVICE UNSOLICITED RESULTS Final Result Performing Organization Address [facility] de Phone Number [facility]ALTHCARE LAB [address] [place] [address] * (ABNORMAL) POCT glucose meter (03/26/2025 5:30 PM EDT) [facility] POCT Glucose 211(H) 74 - 99 [...] Comment 03/26/2025 5:34 PM EDT [facility]ALTH[facility]ARE LAB Sports Betting Manager ID Tonja Olivares 5:34 PM EDT HEALTHCARE LAB Device ID [id number] 03/26/2025 5:34 PM EDT [facility] Specimen Type POC Capillary 03/26/2025 5:34 PM EDT [facility]ALTH[facility] Blood Capillary blood specimen / Unknown 03/26/2025 5:30 PM EDT 03/26/2025 5:34 PM EDT Musa Rosado MD LAB POINT OF CARE TE ST DOCKED DEVICE UNSOLICITED RESULTS Final Result Performing Organization Address [facility] Co de Phone Number [facility] [address] [place] [address] * (ABNORMAL) POCT glucose meter (03/26/2025 12:28 PM EDT) [facility] POCT Glucose 254(H) 74 - 99 mg/dL [...] 03/26/2025 12:30 PM EDT [facility] [employer] Manager ID Tonja Olivares 12:30 PM EDT [facility] Device ID [id number] 03/26/2025 12:30 PM EDT [facility] Specimen Type POC Capillary 03/26/2025 12:30 PM EDT [facility] Blood Capillary blood specimen / Unknown 03/26/2025 12:28 PM EDT 03/26/2025 12:30 PM EDT us Musa Rosado MD LAB POINT OF CARE TE ST DOCKED DEVICE UNSOLICITED RESULTS Final Result Performing Organization Address [facility]/ZIP Co de Phone Number [facility] [address] [place] [address] * (ABNORMAL) POCT glucose meter (03/26/2025 8:40 AM EDT) [facility] POCT Glucose 197(H) 74 - 99 mg/dL [...] 03/26/2025 8:42 AM EDT [facility] [employer] Bet[employer] Manager ID Tonja Olivares 8:42 AM EDT [facility] Device ID [id number] 03/26/2025 8:42 AM EDT [facility] Specimen Type POC Capillary 03/26/2025 8:42 AM EDT [facility] Blood Capillary blood specimen / Unknown 03/26/2025 8:40 AM EDT 03/26/2025 8:42 AM EDT us Musa Rosado MD LAB POINT OF CARE TE ST DOCKED DEVICE UNSOLICITED RESULTS Final Result [facility] [address] [place] [address] * XR Chest 1 View (03/26/2025 5:53 [...] 76 <200 mg/dL 03/26/2025 4:[address] [facility] Comment: Cholesterol Reference Range (age >17 years): Desirable <200 mg/dL Borderline 200 to 239 mg/dL Undesirable >239 mg/dL HDL 22(L) >=40 mg/dL 03/26/2025 4:[address] [facility] Comment: HDL Cholesterol Reference Ranges (age >17 years): Female, acceptable > or = 50 mg/dL Male, acceptable > or = 40 mg/dL Triglycerides, Plasma 152(H) <150 mg/dL 03/26/2025 4:[address] [facility] Comment: Triglyceride Reference Range (age >17 years): Desirable: <150 mg/dL Borderline high: 150 to 199 mg/dL High: 200 to 499 mg/dL Very high: >499 mg/dL Increased risk of pancreatitis: >1000 mg/dL Cholesterol/HDL Ratio 3 03/26/2025 4:[address] [facility] LDL, Calculated 28 <100 mg/dL 4:[address] [facility] Comment: LDL Cholesterol Reference Range [...] 12 hours? No 03/26/2025 4:[address] [facility] Blood Venous blood specimen / Unknown Venipuncture / Unknown 03/26/2025 3:50 AM EDT 03/26/2025 4:26 AM EDT us La Nena March APRN LAB BLOOD ORDERABLES Final Res ult [facility] [address] [place] [address] * Magnesium (03/26/2025 3:50 AM EDT) Magnesium, Plasma 2.1 1.9 - 2.4 mg/dL 03/26/2025 4:[address] [facility] Blood Venous blood specimen / Unknown Venipuncture / Unknown 03/26/2025 3:50 AM EDT 03/26/2025 4:26 AM EDT us La Nena S Joaquim ARMSTRONG LAB BLOOD ORDERABLES Final Res ult [facility] [address] [place] [address] * (ABNORMAL) Comprehensive metabolic panel (03/26/2025 3:50 AM EDT) Glucose, Plasma 268(H) 74 - 99 mg/dL 03/26/2025 4:[address] [facility] BUN, Plasma 24(H) 7 - 21 mg/dL 03/26/2025 4:[address] [facility] Creatinine, Plasma 1.06 0.70 - 1.20 mg/dL 03/26/2025 4:[address] [facility] BUN/Creatinine Ratio 23 03/26/2025 4:[address] [facility] Sodium, Plasma 138 136 - 145 mmol/L 03/26/2025 4:[address] [facility] Potassium, Plasma 4.0 3.6 - 4.9 mmol/L 03/26/2025 4:[address] [facility] Chloride, Plasma 104 97 - 107 mmol/L 03/26/2025 4:[address] [facility] CO2, Plasma 25 22 - 29 mmol/L 03/26/2025 4:[address] [facility] Anion Gap 9 6 - 16 mmol/L 03/26/2025 4:[address] [facility] Total Calcium, Plasma 8.3(L) 8.9 - 10.2 mg/dL 03/26/2025 4:[address] [facility] Total Protein 5.9(L) 6.3 - 7.9 g/dL 03/26/2025 4:[address] [facility] Albumin, Plasma 3.2(L) 3.5 - 5.2 g/dL 03/26/2025 4:[address] [facility] AST, Plasma 18 10 - 50 U/L 03/26/2025 4:[address] [facility] ALT, Plasma 14 10 - 50 U/L 03/26/2025 4:[address] [facility] Alkaline Phosphatase, Plasma 43 40 - 115 U/L 03/26/2025 4:[address] [facility] Total Bilirubin, Plasma 0.5 0.2 - 1.1 mg/dL 03/26/2025 4:[address] [facility] eGFRcr 89.3 mL/min/1.7 3m*2 03/26/2025 4:[address] [facility] Comment:Reported eGFRcr in m L/min/1.73m2 is based the CKD-EPI 2020 equation that does not use a race coefficient. Blood Venous blood specimen / Unknown Venipuncture / Unknown 03/26/2025 3:50 AM EDT 03/26/2025 4:26 AM EDT La Nena March FIELD MARKETING DIRECTOR LAB BLOOD ORDERABLES Final Res ult [facility] [address] [place] [address] * (ABNORMAL) Hemogram (CBC) (03/26/2025 3:50 AM EDT) WBC Count 4.53 3.70 - 10.30 10*3/uL LAB HEMATOLOGY METHOD 03/26/2025 4:[address] [facility] RBC Count 2.56(L) 4.60 - 6.10 10*6/uL LAB HEMATOLOGY METHOD 03/26/2025 4:[address] [facility] HGB 7.8(L) 13.7 - 17.5 g/dL LAB HEMATOLOGY METHOD 03/26/2025 4:[address] [facility] HCT 23.9(L) 40.0 - 51.0 % LAB HEMATOLOGY METHOD 03/26/2025 4:[address] [facility] Platelet Count 129(L) 155 - 369 10*3/uL LAB HEMATOLOGY METHOD 03/26/2025 4:[address] [facility] MCV 93 79 - 98 fL LAB HEMATOLOGY METHOD 03/26/2025 4:[address] [facility] MCH 30.5 26.0 - 32.0 pg LAB HEMATOLOGY METHOD 03/26/2025 4:[address] [facility] MCHC 32.6 30.7 - 35.5 g/dL LAB HEMATOLOGY METHOD 03/26/2025 4:[address] [facility] RDW 13.5 11.5 - 14.5 % LAB HEMATOLOGY METHOD 03/26/2025 4:[address] [facility] MPV 11.4 8.8 - 12.5 fL LAB HEMATOLOGY METHOD 03/26/2025 4:[address] [facility] nRBC 0.4(H) <=0.0 per 100 WBCs LAB HEMATOLOGY METHOD 03/26/2025 4:[address] [facility] Blood Venous blood specimen / Unknown Venipuncture / Unknown 03/26/2025 3:50 AM EDT 03/26/2025 4:27 AM EDT us La Nena March FIELD MARKETING DIRECTOR LAB BLOOD ORDERABLES Final Res ult [facility] [address] [place] [address] * (ABNORMAL) POCT glucose meter (03/25/2025 9:52 [...] 03/25/2025 9:54 PM EDT [facility] Sports Betting Manager ID Zaida Stearns 03/25/20 9:54 PM EDT [facility] Device ID [id number] 03/25/2025 9:54 PM EDT [facility] Specimen Type POC Capillary 03/25/2025 9:54 PM EDT [facility] Blood Capillary blood specimen / Unknown 03/25/2025 9:52 PM EDT 03/25/2025 9:54 PM EDT Musa Rosado MD LAB POINT OF CARE TE ST DOCKED DEVICE UNSOLICITED RESULTS Final Result Performing Organization Address City/[facility]/ZIP Co de Phone Number [facility] [address] [place] [address] * (ABNORMAL) POCT glucose meter (03/25/2025 5:01 [...] Comment 03/25/2025 5:02 PM EDT [facility] Sports Betting Manager ID Camille Espana 03/25/2025 5:02 PM EDT [facility] Device ID [id number] 03/25/2025 5:02 PM EDT [facility] Specimen Type POC Capillary 03/25/2025 5:02 PM EDT [facility] Blood Capillary blood specimen / Unknown 03/25/2025 5:01 PM EDT 03/25/2025 5:02 PM EDT Musa Rosado MD LAB POINT OF CARE TE ST DOCKED DEVICE UNSOLICITED RESULTS Final Result [facility] [address] [place] [address] * (ABNORMAL) POCT glucose meter (03/25/2025 10:59 [...] Comment 03/25/2025 11:00 AM EDT [facility] Sports Betting Manager ID Camille Espana 03/25/2025 11:00 AM EDT [facility] Device ID [id number] 03/25/2025 11:00 AM EDT [facility] Specimen Type POC Capillary 03/25/2025 11:00 AM EDT [facility] Blood Capillary blood specimen / Unknown 03/25/2025 10:59 AM EDT 03/25/2025 11:00 AM EDT Musa Rosado MD LAB POINT OF CARE TE ST DOCKED DEVICE UNSOLICITED RESULTS Final Result Performing Organization Address City/State/[facility] Co de Phone Number [facility] [address] [place] [address] * (ABNORMAL) POCT glucose meter (03/25/2025 7:57 AM EDT) [facility] POCT Glucose 198(H) 74 - 99 [...] Comment 03/25/2025 7:58 AM EDT [facility] Sports Betting Manager ID Camille Espana 03/25/2025 7:58 AM EDT [facility] Device ID [id number] 03/25/2025 7:58 AM EDT [facility] Specimen Type POC Capillary 03/25/2025 7:58 AM EDT [facility] Blood Capillary blood specimen / Unknown 03/25/2025 7:57 AM EDT 03/25/2025 7:58 AM EDT Musa Rosado MD LAB POINT OF CARE TE ST DOCKED DEVICE UNSOLICITED RESULTS Final Result Performing Organization Address City/[facility] Hospital/[facility] Co de Phone Number [facility] [address] [place] [address] * (ABNORMAL) Phosphorus, Plasma (03/25/2025 4:07 AM EDT) Phosphorus, Plasma 1.2(L) 2.5 - 4.5 mg/dL 03/25/2025 4:[address] [facility] Blood Venous blood specimen / Unknown Venipuncture / Unknown 03/25/2025 4:07 AM EDT 03/25/2025 4:20 AM EDT us Musa Rosado MD LAB BLOOD ORDERABLES Final R esult Performing Organization Address [facility] Co de Phone Number [facility] [address] [place] [address] * (ABNORMAL) Magnesium, Plasma (03/25/2025 4:07 AM EDT) Magnesium, Plasma 1.8(L) 1.9 - 2.4 mg/dL 03/25/2025 4:[address] [facility] Blood Venous blood specimen / Unknown Venipuncture / Unknown 03/25/2025 4:07 AM EDT 03/25/2025 4:20 AM EDT us Musa Rosado MD LAB BLOOD ORDERABLES Final R esult Performing Organization Address City/[facility] Co de Phone Number [facility] [address] [place] [address] * (ABNORMAL) CBC (03/25/2025 4:07 AM EDT) WBC Count 6.01 3.70 - 10.30 10*3/uL LAB HEMATOLOGY METHOD 03/25/2025 4:[address] [facility] RBC Count 2.47(L) 4.60 - 6.10 10*6/uL LAB HEMATOLOGY METHOD 03/25/2025 4:[address] [facility] HGB 7.5(L) 13.7 - 17.5 g/dL LAB HEMATOLOGY METHOD 03/25/2025 4:[address] [facility] HCT 22.8(L) 40.0 - 51.0 % LAB HEMATOLOGY METHOD 03/25/2025 4:[address] [facility] Platelet Count 105(L) 155 - 369 10*3/uL LAB HEMATOLOGY METHOD 03/25/2025 4:[address] [facility] MCV 92 79 - 98 fL LAB HEMATOLOGY METHOD 03/25/2025 4:[address] [facility] MCH 30.4 26.0 - 32.0 pg LAB HEMATOLOGY METHOD 03/25/2025 4:[address] [facility] MCHC 32.9 30.7 - 35.5 g/dL LAB HEMATOLOGY METHOD 03/25/2025 4:[address] [facility] RDW 13.4 11.5 - 14.5 % LAB HEMATOLOGY METHOD 03/25/2025 4:[address] [facility] MPV 11.3 8.8 - 12.5 fL LAB HEMATOLOGY METHOD 03/25/2025 4:[address] [facility] nRBC 0.0 <=0.0 per 100 WBCs LAB HEMATOLOGY METHOD 03/25/2025 4:[address] [facility] Blood Venous blood specimen / Unknown Venipuncture / Unknown 03/25/2025 4:07 AM EDT 03/25/2025 4:23 AM EDT us Musa Rosado MD LAB BLOOD ORDERABLES Final R esult [facility] [address] [place] [address] * (ABNORMAL) Basic metabolic panel (03/25/2025 4:07 AM EDT) Glucose, Plasma 183(H) 74 - 99 mg/dL 03/25/2025 4:[address] [facility] BUN, Plasma 22(H) 7 - 21 mg/dL 03/25/2025 4:[address] [facility] Creatinine, Plasma 1.04 0.70 - 1.20 mg/dL 03/25/2025 4:[address] [facility] BUN/Creatinine Ratio 21 03/25/2025 4:[address] [facility] Sodium, Plasma 136 136 - 145 mmol/L 03/25/2025 4:[address] [facility] Potassium, Plasma 4.3 3.6 - 4.9 mmol/L 03/25/2025 4:[address] [facility] Chloride, Plasma 101 97 - 107 mmol/L 03/25/2025 4:[address] [facility] CO2, Plasma 26 22 - 29 mmol/L 03/25/2025 4:[address] [facility] Anion Gap 9 6 - 16 mmol/L 03/25/2025 4:[address] [facility] Total Calcium, Plasma 8.2(L) 8.9 - 10.2 mg/dL 03/25/2025 4:[address] [facility] eGFRcr 91.4 mL/min/1.7 3m*2 03/25/2025 4:[address] [facility] Comment:Reported eGFRcr in m L/min/1.73m2 is based the CKD-EPI 2020 equation that does not use a race coefficient. Blood Venous blood specimen / Unknown Venipuncture / Unknown 03/25/2025 4:07 AM EDT 03/25/2025 4:20 AM EDT us Musa Rosado MD LAB BLOOD ORDERABLES Final R esult [facility] [address] [place] [address] * XR Chest 1 View (03/25/2025 2:52 [...] 03/24/2025 9:06 PM EDT [facility] Sports Betting Manager ID IyengunmweZak [email or web address] 03/24/2025 9:06 PM EDT [facility] Device ID [id number] 03/24/2025 9:06 PM EDT [facility] Specimen Type POC Capillary 03/24/2025 9:06 PM EDT [facility] Blood Capillary blood specimen / Unknown 03/24/2025 9:05 PM EDT 03/24/2025 9:06 PM EDT Musa Rosado MD LAB POINT OF CARE TE ST DOCKED DEVICE UNSOLICITED RESULTS Final Result Performing Organization Address City/[facility] Hospital/[facility] de Phone Number [facility] [address] [place] [address] * (ABNORMAL) POCT glucose meter (03/24/2025 4:19 [...] Comment 03/24/2025 4:20 PM EDT [facility] Sports Betting Manager ID Beverly Alonso 03/24/2025 4:20 PM EDT [facility] Device ID [id number] 03/24/2025 4:20 PM EDT [facility] Specimen Type POC Arterial 03/24/2025 4:20 PM EDT [facility] Blood Arterial blood specimen / Unknown 03/24/2025 4:19 PM EDT 03/24/2025 4:20 PM EDT Musa Rosado MD LAB POINT OF CARE TE ST DOCKED DEVICE UNSOLICITED RESULTS Final Result Performing Organization Address City/[facility] Hospital/[facility] Co de Phone Number [facility] [address] [place] [address] * (ABNORMAL) POCT glucose meter (03/24/2025 11:44 [...] Comment 03/24/2025 11:46 AM EDT [facility] Sports Betting Manager ID Beverly Alonso 03/24/2025 11:46 AM EDT [facility] Device ID [id number] 03/24/2025 11:46 AM EDT [facility] Specimen Type POC Arterial 03/24/2025 11:46 AM EDT [facility] Blood Arterial blood specimen / Unknown 03/24/2025 11:44 AM EDT 03/24/2025 11:46 AM EDT us Musa Rosado MD LAB POINT OF CARE TE ST DOCKED DEVICE UNSOLICITED RESULTS Final Result Performing Organization Address City/State/[facility] Phone Number [facility] [address] [place] [address] * [place] [facility], E/M 30-74 MINUTES (03/24/2025 11:33 [...] Comment 03/24/2025 8:21 AM EDT [facility] Sports Betting Manager ID Beverly Alonso 03/24/2025 8:21 AM EDT [facility] Device ID [id number] 03/24/2025 8:21 AM EDT [facility] Specimen Type POC Arterial 03/24/2025 8:21 AM EDT [facility] Blood Arterial blood specimen / Unknown 03/24/2025 7:45 AM EDT 03/24/2025 8:21 AM EDT Musa Rosado MD LAB POINT OF CARE TE ST DOCKED DEVICE UNSOLICITED RESULTS Final Result [facility] [address] [place] [address] * (ABNORMAL) POCT glucose meter (03/24/2025 5:56 AM EDT) [facility] POCT Glucose 146(H) 74 - 99 mg/dL [...] Comment 03/24/2025 5:58 AM EDT [facility] Sports Betting Manager ID Yuri Diggs 03/24/2025 5:58 AM EDT [facility] Device ID [id number] 03/24/2025 5:58 AM EDT [facility] Specimen Type POC Capillary 03/24/2025 5:58 AM EDT [facility] Blood Capillary blood specimen / Unknown 03/24/2025 5:56 AM EDT 03/24/2025 5:58 AM EDT Musa Rosado MD LAB POINT OF CARE TE ST DOCKED DEVICE UNSOLICITED RESULTS Final Result Performing Organization Address [facility] de Phone Number [facility] [address] [place] [address] * (ABNORMAL) POCT glucose meter (03/24/2025 3:40 AM EDT) [facility] POCT Glucose 180(H) 74 - 99 [...] 03/24/2025 3:41 AM EDT [facility] Sports Betting Manager ID Yuri Diggs 03/24/2025 3:41 AM EDT [facility] Device ID [id number] 03/24/2025 3:41 AM EDT [facility] Specimen Type POC Capillary 03/24/2025 3:41 AM EDT [facility] Blood Capillary blood specimen / Unknown 03/24/2025 3:40 AM EDT 03/24/2025 3:41 AM EDT Musa Rosado MD LAB POINT OF CARE TE ST DOCKED DEVICE UNSOLICITED RESULTS Final Result Performing Organization Address City/[facility] de Phone Number [facility] [address] [place] [address] * XR Chest 1 View (03/24/2025 3:14 AM EDT) Anatomical Region Laterality Modality Chest Digital Radiogra phy Impressions 03/24/2025 9:52 AM EDT Interval removal of the [place]-Brea catheter. Otherwise no significant interval change. CRITICAL RESULT: No. COMMUNICATION: Per this written report. Drafted by Milli Elkins MD on 03/24/2025 9:51 AM Final report signed by Milli Elkins MD on 03/24/2025 9:52 AM Narrative 03/24/2025 9:52 AM EDT CLINICAL INDICATION: Post-Op Cardiac Surgery TECHNIQUE: Single AP view of chest. COMPARISON: One day prior FINDINGS: Interval removal of the [place]-Brea catheter. The rest of the portal hardware [...] day prior FINDINGS: Interval removal of the [place]-Brea catheter. The rest of the portalhardware unchanged. The cardiac and mediastinal contours are unchanged. Nosizable pneumothorax. Small left pleural effusion similar to prior.Persistent bilateral perihilar and bibasal lung opacities may representatelectasis. No new lung consolidation. Persistent low lung volume. IMPRESSION: Interval removal of the [place]-Brea catheter. Otherwise no significantinterval change. CRITICAL RESULT: No. COMMUNICATION: Per this written report. Drafted by Milli Elkins MD on 03/24/2025 9:51 AM Final report signed by Milli Elkins MD on 03/24/2025 9:52 AM Musa Rosado MD IMG XR PROCEDURES Final Resu lt * (ABNORMAL) POCT glucose meter (03/24/2025 1:46 AM EDT) POCT Glucose 143(H) 74 - 99 mg/dL 03/24/2025 1:48 AM EDT [facility] Comment:Accuracy of a glucos e result [...] 03/24/2025 1:48 AM EDT [facility] Sports Betting Manager ID Yuri Diggs 03/24/2025 1:48 AM EDT [facility] Device ID [id number] 03/24/2025 1:48 AM EDT [facility]ALTH[facility] Specimen Type POC Capillary 03/24/2025 1:48 AM EDT [facility] Blood Capillary blood specimen / Unknown 03/24/2025 1:46 AM EDT 03/24/2025 1:48 AM EDT us Musa Rosado MD LAB POINT OF CARE TE ST DOCKED DEVICE UNSOLICITED RESULTS Final Result [facility] [address] [place] [address] * (ABNORMAL) Blood gas, arterial (03/24/2025 12:08 AM EDT) pH, Arterial 7.42 7.35 - 7.45 LAB HEMATOLOGY METHOD 03/24/2025 12:[address] [facility] pCO2, Arterial 43 32 - 45 mmHg LAB HEMATOLOGY METHOD 03/24/2025 12:[address] [facility] pO2, Arterial 58(LL) 83 - 108 mmHg LAB HEMATOLOGY METHOD 03/24/2025 12:[address] [facility] SO2, Measured, Arterial 90(L) 94 - 98 % LAB HEMATOLOGY METHOD 03/24/2025 12:[address] [facility] Base Excess, Arterial 2.9 -2.0 - 3.0 mmol/L LAB HEMATOLOGY METHOD 03/24/2025 12:[address] [facility] Bicarbonate, Calculated, Arterial 28(H) 22 - 26 mmol/L LAB HEMATOLOGY METHOD 03/24/2025 12:[address] [facility] Hematocrit, Whole Blood 26.5(L) 40.0 - 51.0 % LAB HEMATOLOGY METHOD 03/24/2025 12:[address] [facility] Sodium, Whole Blood 138 136 - 145 mmol/L LAB HEMATOLOGY METHOD 03/24/2025 12:[address] [facility] Potassium, Whole Blood 4.2 3.6 - 4.9 mmol/L LAB HEMATOLOGY METHOD 03/24/2025 12:[address] [facility] Chloride, Whole Blood 104 97 - 107 mmol/L LAB HEMATOLOGY METHOD 03/24/2025 12:[address] [facility] Glucose, Whole Blood 161(H) 74 - 99 mg/dL LAB HEMATOLOGY METHOD 03/24/2025 12:[address] [facility] Ionized Calcium, Whole Blood 4.6 4.6 - 5.1 mg/dL LAB HEMATOLOGY METHOD 03/24/2025 12:[address] [facility] Lactate, Arterial, Whole Blood 1.1 0.5 - 1.6 mmol/L LAB HEMATOLOGY METHOD 03/24/2025 12:[address] [facility] Blood Arterial blood specimen / Unknown Arterial Puncture / Unknown 03/24/2025 12:08 AM EDT 03/24/2025 12:14 AM EDT us Musa Rosado MD LAB BLOOD ORDERABLES Final R esult Performing Organization Address City/[facility] Hospital/ZIP Co de Phone Number [facility] [address] [place] [address] * (ABNORMAL) Phosphorus, Plasma (03/24/2025 12:07 AM EDT) Phosphorus, Plasma 2.1(L) 2.5 - 4.5 mg/dL 03/24/2025 12:[address] [facility] Blood Arterial blood specimen / Unknown Venipuncture / Unknown 03/24/2025 12:07 AM EDT 03/24/2025 12:16 AM EDT us Musa Rosado MD LAB BLOOD ORDERABLES Final R esult [facility] [address] [place] [address] * Magnesium, Plasma (03/24/2025 12:07 AM EDT) Magnesium, Plasma 2.1 1.9 - 2.4 mg/dL 03/24/2025 12:[address] [facility] Blood Arterial blood specimen / Unknown Venipuncture / Unknown 03/24/2025 12:07 AM EDT 03/24/2025 12:16 AM EDT us Musa Rosado MD LAB BLOOD ORDERABLES Final R esult [facility] [address] [place] [address] * (ABNORMAL) CBC (03/24/2025 12:07 AM EDT) WBC Count 11.14(H) 3.70 - 10.30 10*3/uL LAB HEMATOLOGY METHOD 03/24/2025 12:[address] [facility] RBC Count 2.80(L) 4.60 - 6.10 10*6/uL LAB HEMATOLOGY METHOD 03/24/2025 12:[address] [facility] HGB 8.5(L) 13.7 - 17.5 g/dL LAB HEMATOLOGY METHOD 03/24/2025 12:[address] [facility] HCT 26.3(L) 40.0 - 51.0 % LAB HEMATOLOGY METHOD 03/24/2025 12:[address] [facility] Platelet Count 121(L) 155 - 369 10*3/uL LAB HEMATOLOGY METHOD 03/24/2025 12:[address] [facility] MCV 94 79 - 98 fL LAB HEMATOLOGY METHOD 03/24/2025 12:[address] [facility] MCH 30.4 26.0 - 32.0 pg LAB HEMATOLOGY METHOD 03/24/2025 12:[address] [facility] MCHC 32.3 30.7 - 35.5 g/dL LAB HEMATOLOGY METHOD 03/24/2025 12:[address] [facility] RDW 14.1 11.5 - 14.5 % LAB HEMATOLOGY METHOD 03/24/2025 12:[address] [facility] MPV 11.4 8.8 - 12.5 fL LAB HEMATOLOGY METHOD 03/24/2025 12:[address] [facility] nRBC 0.0 <=0.0 per 100 WBCs LAB HEMATOLOGY METHOD 03/24/2025 12:[address] [facility] Blood Arterial blood specimen / Unknown Venipuncture / Unknown 03/24/2025 12:07 AM EDT 03/24/2025 12:17 AM EDT us Musa Rosado MD LAB BLOOD ORDERABLES Final R esult [facility] [address] [place] [address] * (ABNORMAL) Basic metabolic panel (03/24/2025 12:07 AM EDT) Glucose, Plasma 164(H) 74 - 99 mg/dL 03/24/2025 12:[address] [facility] BUN, Plasma 21 7 - 21 mg/dL 03/24/2025 12:[address] [facility] Creatinine, Plasma 1.13 0.70 - 1.20 mg/dL 03/24/2025 12:[address] [facility] BUN/Creatinine Ratio 19 03/24/2025 12:[address] [facility] Sodium, Plasma 137 136 - 145 mmol/L 03/24/2025 12:[address] [facility] Potassium, Plasma 4.4 3.6 - 4.9 mmol/L 03/24/2025 12:[address] [facility] Chloride, Plasma 104 97 - 107 mmol/L 03/24/2025 12:[address] [facility] CO2, Plasma 25 22 - 29 mmol/L 03/24/2025 12:[address] [facility] Anion Gap 8 6 - 16 mmol/L 03/24/2025 12:[address] [facility] Total Calcium, Plasma 8.4(L) 8.9 - 10.2 mg/dL 03/24/2025 12:[address] [facility] eGFRcr 82.7 mL/min/1.7 3m*2 03/24/2025 12:[address] [facility] Comment:Reported eGFRcr in m L/min/1.73m2 is based the CKD-EPI 2020 equation that does not use a race coefficient. Blood Arterial blood specimen / Unknown Venipuncture / Unknown 03/24/2025 12:07 AM EDT 03/24/2025 12:16 AM EDT Musa Rosado MD LAB BLOOD ORDERABLES Final R esult [facility] [address] [place] [address] * (ABNORMAL) POCT glucose meter (03/23/2025 9:43 [...] Comment 03/23/2025 9:44 PM EDT [facility] Sports Betting Manager ID Yuri Diggs 03/23/2025 9:44 PM EDT [facility] Device ID [id number] 03/23/2025 9:44 PM EDT [facility] Specimen Type POC Capillary 03/23/2025 9:44 PM EDT [facility] Blood Capillary blood specimen / Unknown 03/23/2025 9:43 PM EDT 03/23/2025 9:44 PM EDT Musa Rosado MD LAB POINT OF CARE TE ST DOCKED DEVICE UNSOLICITED RESULTS Final Result [facility] [address] [place] [address] * (ABNORMAL) POCT glucose meter (03/23/2025 7:55 [...] Comment 03/23/2025 7:57 PM EDT [facility] Sports Betting Manager ID Yuri Diggs 03/23/2025 7:57 PM EDT [facility] Device ID [id number] 03/23/2025 7:57 PM EDT [facility] Specimen Type POC Capillary 03/23/2025 7:57 PM EDT [facility] Blood Capillary blood specimen / Unknown 03/23/2025 7:55 PM EDT 03/23/2025 7:57 PM EDT us Musa Rosado MD LAB POINT OF CARE TE ST DOCKED DEVICE UNSOLICITED RESULTS Final Result Performing Organization Address [facility] Co de Phone Number [facility] [address] [place] [address] * (ABNORMAL) POCT glucose meter (03/23/2025 6:27 [...] Comment 03/23/2025 6:29 PM EDT [facility] Sports Betting Manager ID Jose Alberto Collins 03/23/2025 6:29 PM EDT [facility] Device ID [id number] 03/23/2025 6:29 PM EDT [facility] Specimen Type POC Arterial 03/23/2025 6:29 PM EDT [facility] Blood Arterial blood specimen / Unknown 03/23/2025 6:27 PM EDT 03/23/2025 6:29 PM EDT Musa Rosado MD LAB POINT OF CARE TE ST DOCKED DEVICE UNSOLICITED RESULTS Final Result Performing Organization Address City/[facility]/ZIP Co de Phone Number [facility] [address] [place] [address] * (ABNORMAL) POCT glucose meter (03/23/2025 4:12 PM EDT) Pathologist [facility] POCT Glucose 159(H) 74 - 99 mg/dL [...] Comment 03/23/2025 4:14 PM EDT [facility] Sports Betting Manager ID Jose Alberto Collins 03/23/2025 4:14 PM EDT [facility] Device ID [id number] 03/23/2025 4:14 PM EDT [facility] Specimen Type POC Arterial 03/23/2025 4:14 PM EDT [facility] Blood Arterial blood specimen / Unknown 03/23/2025 4:12 PM EDT 03/23/2025 4:14 PM EDT Musa Rosado MD LAB POINT OF CARE TE ST DOCKED DEVICE UNSOLICITED RESULTS Final Result Performing Organization Address City/State/[facility] Co de Phone Number HEALTHCARE LAB [address] [place] [address] * (ABNORMAL) POCT glucose meter (03/23/2025 1:57 PM EDT) Pathologist [facility] POCT Glucose 129(H) 74 - 99 mg/dL [...] 03/23/2025 1:58 PM EDT [facility] Sports Betting Manager ID Jose Alberto Collins 03/23/2025 1:58 PM EDT [facility] Device ID [id number] 03/23/2025 1:58 PM EDT [facility] Specimen Type POC Arterial 03/23/2025 1:58 PM EDT [facility] Blood Arterial blood specimen / Unknown 03/23/2025 1:57 PM EDT 03/23/2025 1:58 PM EDT us Musa Rosado MD LAB POINT OF CARE TE ST DOCKED DEVICE UNSOLICITED RESULTS Final Result Performing Organization Address City/State/[facility] Co de Phone Number HEALTHCARE [facility] [address] [place] [address] * [facility], E/M 30-74 MINUTES (03/23/2025 12:34 [...] glucose meter (03/23/2025 11:59 AM EDT) Pathologist [facility] POCT Glucose 126(H) 74 - 99 mg/dL 03/23/2025 12:00 PM EDT [facility] Comment:Accuracy of a glucos e result [...] 03/23/2025 12:00 PM EDT [facility] Sports Betting Manager ID Jose Alberto Collins 03/23/2025 12:00 PM EDT [facility] Device ID [id number] 03/23/2025 12:00 PM EDT [facility] Specimen Type POC Arterial 03/23/2025 12:00 PM EDT [facility] Blood Arterial blood specimen / Unknown 03/23/2025 11:59 AM EDT 03/23/2025 12:00 PM EDT Musa Rosado MD LAB POINT OF CARE TE ST DOCKED DEVICE UNSOLICITED RESULTS Final Result Performing Organization Address City/[facility] de Phone Number [facility]ALTHCARE [facility] [address] [place] [address] * (ABNORMAL) POCT glucose meter (03/23/2025 10:06 AM EDT) [facility] POCT Glucose 143(H) 74 - 99 mg/dL [...] Comment 03/23/2025 10:07 AM EDT [facility] Sports Betting Manager ID Jose Alberto Collins 03/23/2025 10:07 AM EDT [facility] Device ID [id number] 03/23/2025 10:07 AM EDT [facility] Specimen Type POC Arterial 03/23/2025 10:07 AM EDT [facility] Blood Arterial blood specimen / Unknown 03/23/2025 10:06 AM EDT 03/23/2025 10:07 AM EDT us Musa Rosado MD LAB POINT OF CARE TE ST DOCKED DEVICE UNSOLICITED RESULTS Final Result Performing Organization Address City/[facility] Co de Phone Number [facility]CARE [facility] [address] [place] [address] * (ABNORMAL) POCT glucose meter (03/23/2025 8:01 AM EDT) [facility] POCT Glucose 142(H) 74 - 99 [...] Comment 03/23/2025 8:03 AM EDT [facility] Sports Betting Manager ID Jose Alberto Collins 03/23/2025 8:03 AM EDT [facility]ALTH[facility]ARE [facility] Device ID [id number] 03/23/2025 8:03 AM EDT [facility] Specimen Type POC Arterial 03/23/2025 8:03 AM EDT [facility] Blood Arterial blood specimen / Unknown 03/23/2025 8:01 AM EDT 03/23/2025 8:03 AM EDT Musa Rosado MD LAB POINT OF CARE TE ST DOCKED DEVICE UNSOLICITED RESULTS Final Result Performing Organization Address City/State/[facility] Co de Phone Number HEALTHCARE LAB [address] [place] [address] * (ABNORMAL) Blood gas panel, arterial (03/23/2025 6:18 AM EDT) [facility] pH, Arterial 7.39 7.35 - 7.45 LAB HEMATOLOGY METHOD 03/23/2025 6:[address] [facility] pCO2, Arterial 41 32 - 45 mmHg LAB HEMATOLOGY METHOD 03/23/2025 6:[address] [facility] pO2, Arterial 75(L) 83 - 108 mmHg LAB HEMATOLOGY METHOD 03/23/2025 6:[address] [facility] SO2, Measured, Arterial 94 94 - 98 % LAB HEMATOLOGY METHOD 03/23/2025 6:[address] [facility] Base Excess, Arterial -0.2 -2.0 - 3.0 mmol/L LAB HEMATOLOGY METHOD 03/23/2025 6:[address] [facility] Bicarbonate, Calculated, Arterial 25 22 - 26 mmol/L LAB HEMATOLOGY METHOD 03/23/2025 6:[address] [facility] Hematocrit, Whole Blood 28.9(L) 40.0 - 51.0 % LAB HEMATOLOGY METHOD 03/23/2025 6:[address] [facility] Sodium, Whole Blood 141 136 - 145 mmol/L LAB HEMATOLOGY METHOD 03/23/2025 6:[address] [facility] Potassium, Whole Blood 4.1 3.6 - 4.9 mmol/L LAB HEMATOLOGY METHOD 03/23/2025 6:[address] [facility] Chloride, Whole Blood 108(H) 97 - 107 mmol/L LAB HEMATOLOGY METHOD 03/23/2025 6:[address] [facility] Glucose, Whole Blood 162(H) 74 - 99 mg/dL LAB HEMATOLOGY METHOD 03/23/2025 6:[address] [facility] Ionized Calcium, Whole Blood 4.4(L) 4.6 - 5.1 mg/dL LAB HEMATOLOGY METHOD 03/23/2025 6:[address] [facility] Lactate, Arterial, Whole Blood 1.9(H) 0.5 - 1.6 mmol/L LAB HEMATOLOGY METHOD 03/23/2025 6:[address] [facility] Blood Arterial blood specimen / Unknown Arterial Puncture / Unknown 03/23/2025 6:18 AM EDT 03/23/2025 6:27 AM EDT us Musa Rosado MD LAB BLOOD ORDERABLES Final R esult Performing Organization Address City/State/[facility] Co de Phone Number [facility] [address] [place] [id number] * (ABNORMAL) POCT glucose meter (03/23/2025 6:11 AM EDT) POCT Glucose 154(H) 74 - 99 mg/dL 03/23/2025 6:13 AM EDT [facility] Comment:Accuracy of a glucos e result [...] Comment 03/23/2025 6:13 AM EDT [facility] Sports Betting Manager ID Deangelo Haynesswi 03/23/2025 6:13 AM EDT [facility]ARE [facility] Device ID [id number] 03/23/2025 6:13 AM EDT [facility] Specimen Type POC Arterial 03/23/2025 6:13 AM EDT [facility] Blood Arterial blood specimen / Unknown 03/23/2025 6:11 AM EDT 03/23/2025 6:13 AM EDT us Musa Rosado MD LAB POINT OF CARE TE ST DOCKED DEVICE UNSOLICITED RESULTS Final Result [facility] [address] [place] [address] * ECG Adult (03/23/2025 4:28 AM EDT) EKG DIAGNOSIS CLASS Abnormal MUSE ECG Ventricular Rate 77 BPM MUSE ECG Atrial Rate 77 BPM MUSE ECG WA Interval 150 ms MUSE ECG QRSD Interval 78 ms MUSE ECG QT Interval 366 ms MUSE ECG QTC Interval 414 ms MUSE ECG P Don[place]han 49 degrees MUSE ECG R [place] -7 degrees MUSE ECG T Wave [place] -4 degrees MUSE ECG Diagnosis Normal sinus rhythm MUSE ECG Diagnosis ST elevation, consider early repolarization , pericarditis, or injury MUSE ECG Diagnosis Nonspecific T wave abnormality MUSE ECG Diagnosis Need clinical information and correlation MUSE ECG Diagnosis MUSE ECG Diagnosis Confirmed by Jarett Steen ([id number]) on 03/23/2025 8:36:37 AM MUSE ECG 03/23/2025 [...] Comment 03/23/2025 4:01 AM EDT [facility] Sports Betting Manager ID Marsha Haynesjaswi 03/23/2025 4:01 AM EDT [facility]ARE LAB Device ID [id number] 03/23/2025 4:01 AM EDT [facility] Specimen Type POC Arterial 03/23/2025 4:01 AM EDT [facility] Blood Arterial blood specimen / Unknown 03/23/2025 3:59 AM EDT 03/23/2025 4:01 AM EDT Musa Rosado MD LAB POINT OF CARE TE ST DOCKED DEVICE UNSOLICITED RESULTS Final Result Performing Organization Address City/[facility] Co de Phone Number [facility] [address] [place] [address] * Phosphorus, Plasma (03/23/2025 3:56 AM EDT) Phosphorus, Plasma 3.7 2.5 - 4.5 mg/dL 03/23/2025 4:[address] [facility] Blood Arterial blood specimen / Unknown Arterial Puncture / Unknown 03/23/2025 3:56 AM EDT 03/23/2025 4:12 AM EDT Musa Rosado MD LAB BLOOD ORDERABLES Final R esult [facility] [address] [place] [address] * Magnesium, Plasma (03/23/2025 3:56 AM EDT) Magnesium, Plasma 2.2 1.9 - 2.4 mg/dL 03/23/2025 4:[address] [facility] Blood Arterial blood specimen / Unknown Arterial Puncture / Unknown 03/23/2025 3:56 AM EDT 03/23/2025 4:12 AM EDT us Musa Rosado MD LAB BLOOD ORDERABLES Final R esult [facility] [address] [place] [address] * (ABNORMAL) Basic metabolic panel (03/23/2025 3:56 AM EDT) Glucose, Plasma 159(H) 74 - 99 mg/dL 03/23/2025 4:[address] [facility] BUN, Plasma 18 7 - 21 mg/dL 03/23/2025 4:[address] [facility] Creatinine, Plasma 1.09 0.70 - 1.20 mg/dL 03/23/2025 4:[address] [facility] BUN/Creatinine Ratio 17 03/23/2025 4:[address] [facility] Sodium, Plasma 140 136 - 145 mmol/L 03/23/2025 4:[address] [facility] Potassium, Plasma 4.2 3.6 - 4.9 mmol/L 03/23/2025 4:[address] [facility] Chloride, Plasma 109(H) 97 - 107 mmol/L 03/23/2025 4:[address] [facility] CO2, Plasma 22 22 - 29 mmol/L 03/23/2025 4:[address] [facility] Anion Gap 9 6 - 16 mmol/L 03/23/2025 4:[address] [facility] Total Calcium, Plasma 8.4(L) 8.9 - 10.2 mg/dL 03/23/2025 4:[address] [facility] eGFRcr 86.4 mL/min/1.7 3m*2 03/23/2025 4:[address] [facility] Comment:Reported eGFRcr in m L/min/1.73m2 is based the CKD-EPI 2020 equation that does not use a race coefficient. Blood Arterial blood specimen / Unknown Arterial Puncture / Unknown 03/23/2025 3:56 AM EDT 03/23/2025 4:12 AM EDT us Musa Rosado MD LAB BLOOD ORDERABLES Final R esult [facility] [address] [place] [address] * (ABNORMAL) Blood gas, arterial (03/23/2025 3:56 AM EDT) pH, Arterial 7.40 7.35 - 7.45 LAB HEMATOLOGY METHOD 03/23/2025 4:[address] [facility] pCO2, Arterial 40 32 - 45 mmHg LAB HEMATOLOGY METHOD 03/23/2025 4:[address] [facility] pO2, Arterial 67(L) 83 - 108 mmHg LAB HEMATOLOGY METHOD 03/23/2025 4:[address] [facility] SO2, Measured, Arterial 92(L) 94 - 98 % LAB HEMATOLOGY METHOD 03/23/2025 4:[address] [facility] Base Excess, Arterial 0.0 -2.0 - 3.0 mmol/L LAB HEMATOLOGY METHOD 03/23/2025 4:[address] [facility] Bicarbonate, Calculated, Arterial 25 22 - 26 mmol/L LAB HEMATOLOGY METHOD 03/23/2025 4:[address] [facility] Hematocrit, Whole Blood 29.5(L) 40.0 - 51.0 % LAB HEMATOLOGY METHOD 03/23/2025 4:[address] [facility] Sodium, Whole Blood 142 136 - 145 mmol/L LAB HEMATOLOGY METHOD 03/23/2025 4:[address] [facility] Potassium, Whole Blood 4.1 3.6 - 4.9 mmol/L LAB HEMATOLOGY METHOD 03/23/2025 4:[address] [facility] Chloride, Whole Blood 108(H) 97 - 107 mmol/L LAB HEMATOLOGY METHOD 03/23/2025 4:[address] [facility] Glucose, Whole Blood 154(H) 74 - 99 mg/dL LAB HEMATOLOGY METHOD 03/23/2025 4:[address] [facility] Ionized Calcium, Whole Blood 4.4(L) 4.6 - 5.1 mg/dL LAB HEMATOLOGY METHOD 03/23/2025 4:[address] [facility] Lactate, Arterial, Whole Blood 1.8(H) 0.5 - 1.6 mmol/L LAB HEMATOLOGY METHOD 03/23/2025 4:[address] [facility] Blood Arterial blood specimen / Unknown Arterial Puncture / Unknown 03/23/2025 3:56 AM EDT 03/23/2025 4:09 AM EDT Musa Rosado MD LAB BLOOD ORDERABLES Final R esult Performing Organization Address City/[facility]/ZIP Co de Phone Number [facility] [address] [place] [address] * Potassium, Plasma (03/23/2025 3:56 AM EDT) Potassium, Plasma 4.2 3.6 - 4.9 mmol/L 03/23/2025 4:[address] [facility] Blood Arterial blood specimen / Unknown Arterial Puncture / Unknown 03/23/2025 3:56 AM EDT 03/23/2025 4:12 AM EDT Musa Rosado MD LAB BLOOD ORDERABLES Final R esult [facility] [address] [place] [address] * (ABNORMAL) Blood gas panel with oximetry, mixed venous (03/23/2025 3:53 AM EDT) pH, Mixed Venous 7.37 7.32 - 7.43 LAB HEMATOLOGY METHOD 03/23/2025 4:[address] [facility] pCO2, Mixed Venous 46 40 - 55 mmHg LAB HEMATOLOGY METHOD 03/23/2025 4:[address] [facility] pO2, Mixed Venous 34 25 - 40 mmHg LAB HEMATOLOGY METHOD 03/23/2025 4:[address] [facility] SO2, Measured, Mixed Venous 63(L) 65 - 80 % LAB HEMATOLOGY METHOD 03/23/2025 4:[address] [facility] Bicarbonate, Calculated, Mixed Venous 26 22 - 26 mmol/L LAB HEMATOLOGY METHOD 03/23/2025 4:[address] [facility] Base Excess, Mixed Venous 0.4 -2.0 - 3.0 mmol/L LAB HEMATOLOGY METHOD 03/23/2025 4:[address] [facility] Hematocrit, Whole Blood 30.3(L) 40.0 - 51.0 % LAB HEMATOLOGY METHOD 03/23/2025 4:[address] [facility] Sodium, Whole Blood 142 136 - 145 mmol/L LAB HEMATOLOGY METHOD 03/23/2025 4:[address] [facility] Potassium, Whole Blood 4.0 3.6 - 4.9 mmol/L LAB HEMATOLOGY METHOD 03/23/2025 4:[address] [facility] Chloride, Whole Blood 109(H) 97 - 107 mmol/L LAB HEMATOLOGY METHOD 03/23/2025 4:[address] [facility] Ionized Calcium, Whole Blood 4.4(L) 4.6 - 5.1 mg/dL LAB HEMATOLOGY METHOD 03/23/2025 4:[address] [facility] Glucose, Whole Blood 152(H) 74 - 99 mg/dL LAB HEMATOLOGY METHOD 03/23/2025 4:[address] [facility] Oxyhemoglobin, Mixed Venous, Whole Blood 61.7 40.0 - 70.0 % LAB HEMATOLOGY METHOD 03/23/2025 4:[address] [facility] Hemoglobin Reduced, Mixed Venous, Whole Blood 36.7 % LAB HEMATOLOGY METHOD 03/23/2025 4:[address] [facility] Total Hemoglobin, Mixed Venous, Whole Blood 9.9(L) 13.7 - 17.5 g/dL LAB HEMATOLOGY METHOD 03/23/2025 4:[address] [facility] Blood Mixed venous blood specimen / Unknown Venipuncture / Unknown 03/23/2025 3:53 AM EDT 03/23/2025 4:09 AM EDT us Musa Rosado MD LAB BLOOD ORDERABLES Final R esult [facility] [address] [place] [address] * ECG Adult - POD 1 (03/23/2025 2:49 AM EDT) EKG DIAGNOSIS CLASS Abnormal MUSE ECG Ventricular Rate 76 BPM MUSE ECG Atrial Rate 76 BPM MUSE ECG WA Interval 118 ms MUSE ECG QRSD Interval 80 ms MUSE ECG QT Interval 362 ms MUSE ECG QTC Interval 407 ms MUSE ECG P Doniphan 46 degrees MUSE ECG R Doniphan -11 degrees MUSE ECG T Wave [place] -15 degrees MUSE ECG Diagnosis Poor data [...] MUSE ECG Diagnosis Confirmed by Jarett Steen ([id number]) on 03/23/2025 8:12:41 AM MUSE ECG 03/23/2025 [...] Comment 03/23/2025 2:05 AM EDT [facility] Sports Betting Manager ID Ayazya Ojaswi 03/23/2025 2:05 AM EDT [facility] Device ID [id number] 03/23/2025 2:05 AM EDT [facility] Specimen Type POC Arterial 03/23/2025 2:05 AM EDT [facility] Blood Arterial blood specimen / Unknown 03/23/2025 2:03 AM EDT 03/23/2025 2:05 AM EDT Musa Rosado MD LAB POINT OF CARE TE ST DOCKED DEVICE UNSOLICITED RESULTS Final Result [facility] [address] [place] [id number] * Potassium, Plasma (03/23/2025 12:14 AM EDT) Potassium, Plasma 4.4 3.6 - 4.9 mmol/L 03/23/2025 12:[address] [facility] Blood Arterial blood specimen / Unknown Arterial Puncture / Unknown 03/23/2025 12:14 AM EDT 03/23/2025 12:30 AM EDT us Musa Rosado MD LAB BLOOD ORDERABLES Final R esult [facility] [address] [place] [address] * (ABNORMAL) CBC (03/23/2025 12:13 AM EDT) WBC Count 11.73(H) 3.70 - 10.30 10*3/uL LAB HEMATOLOGY METHOD 03/23/2025 12:[address] [facility] RBC Count 3.28(L) 4.60 - 6.10 10*6/uL LAB HEMATOLOGY METHOD 03/23/2025 12:[address] [facility] HGB 10.1(L) 13.7 - 17.5 g/dL LAB HEMATOLOGY METHOD 03/23/2025 12:[address] [facility] HCT 29.6(L) 40.0 - 51.0 % LAB HEMATOLOGY METHOD 03/23/2025 12:[address] [facility] Platelet Count 138(L) 155 - 369 10*3/uL LAB HEMATOLOGY METHOD 03/23/2025 12:[address] [facility] MCV 90 79 - 98 fL LAB HEMATOLOGY METHOD 03/23/2025 12:[address] [facility] MCH 30.8 26.0 - 32.0 pg LAB HEMATOLOGY METHOD 03/23/2025 12:[address] [facility] MCHC 34.1 30.7 - 35.5 g/dL LAB HEMATOLOGY METHOD 03/23/2025 12:[address] [facility] RDW 13.7 11.5 - 14.5 % LAB HEMATOLOGY METHOD 03/23/2025 12:[address] [facility] MPV 11.3 8.8 - 12.5 fL LAB HEMATOLOGY METHOD 03/23/2025 12:[address] [facility] nRBC 0.0 <=0.0 per 100 WBCs LAB HEMATOLOGY METHOD 03/23/2025 12:[address] [facility] Blood Arterial blood specimen / Unknown Arterial Puncture / Unknown 03/23/2025 12:13 AM EDT 03/23/2025 12:32 AM EDT Musa Rosado MD LAB BLOOD ORDERABLES Final R esult Performing Organization Address City/[facility]/ZIP Co de Phone Number [facility] [address] [place] [address] * (ABNORMAL) Hematocrit (03/23/2025 12:13 AM EDT) [facility] HCT 29.6(L) 40.0 - 51.0 % LAB HEMATOLOGY METHOD 03/23/2025 12:[address] [facility] Blood Arterial blood specimen / Unknown Arterial Puncture / Unknown 03/23/2025 12:13 AM EDT 03/23/2025 12:32 AM EDT Musa Rosado MD LAB BLOOD ORDERABLES Final R esult Performing Organization Address City/[facility]/[place] [address] * (ABNORMAL) POCT glucose meter (03/23/2025 12:10 AM EDT) [facility] POCT Glucose 168(H) 74 - 99 mg/dL [...] 03/23/2025 12:11 AM EDT [facility] Sports Betting Manager ID AyazlizKelly 03/23/2025 12:11 AM EDT [facility] Device ID [id number] 03/23/2025 12:11 AM EDT [facility] Specimen Type POC Arterial 03/23/2025 12:11 AM EDT [facility] Blood Arterial blood specimen / Unknown 03/23/2025 12:10 AM EDT 03/23/2025 12:11 AM EDT us Musa Rosado MD LAB POINT OF CARE TE ST DOCKED DEVICE UNSOLICITED RESULTS Final Result [facility] [address] [place] [address] * (ABNORMAL) Blood gas, arterial (03/23/2025 12:03 AM EDT) pH, Arterial 7.40 7.35 - 7.45 LAB HEMATOLOGY METHOD 03/23/2025 12:[address] [facility] pCO2, Arterial 38 32 - 45 mmHg LAB HEMATOLOGY METHOD 03/23/2025 12:[address] [facility] pO2, Arterial 158(H) 83 - 108 mmHg LAB HEMATOLOGY METHOD 03/23/2025 12:[address] [facility] SO2, Measured, Arterial 97 94 - 98 % LAB HEMATOLOGY METHOD 03/23/2025 12:[address] [facility] Base Excess, Arterial -0.9 -2.0 - 3.0 mmol/L LAB HEMATOLOGY METHOD 03/23/2025 12:[address] [facility] Bicarbonate, Calculated, Arterial 24 22 - 26 mmol/L LAB HEMATOLOGY METHOD 03/23/2025 12:[address] [facility] Hematocrit, Whole Blood 31.2(L) 40.0 - 51.0 % LAB HEMATOLOGY METHOD 03/23/2025 12:[address] [facility] Sodium, Whole Blood 141 136 - 145 mmol/L LAB HEMATOLOGY METHOD 03/23/2025 12:[address] [facility] Potassium, Whole Blood 4.2 3.6 - 4.9 mmol/L LAB HEMATOLOGY METHOD 03/23/2025 12:[address] [facility] Chloride, Whole Blood 110(H) 97 - 107 mmol/L LAB HEMATOLOGY METHOD 03/23/2025 12:[address] [facility] Glucose, Whole Blood 176(H) 74 - 99 mg/dL LAB HEMATOLOGY METHOD 03/23/2025 12:[address] [facility] Ionized Calcium, Whole Blood 4.4(L) 4.6 - 5.1 mg/dL LAB HEMATOLOGY METHOD 03/23/2025 12:[address] [facility] Lactate, Arterial, Whole Blood 2.5(H) 0.5 - 1.6 mmol/L LAB HEMATOLOGY METHOD 03/23/2025 12:[address] [facility] Blood Arterial blood specimen / Unknown Arterial Puncture / Unknown 03/23/2025 12:03 AM EDT 03/23/2025 12:24 AM EDT us Musa Rosado MD LAB BLOOD ORDERABLES Final R esult Performing Organization Address City/[facility]/ZIP Co de Phone Number [facility] [address] [place] [address] * (ABNORMAL) POCT glucose meter (03/22/2025 10:59 [...] Comment 03/22/2025 11:00 PM EDT [facility] Sports Betting Manager ID Piya, Ojaswi 03/22/2025 11:00 PM EDT [facility]ALTH[facility] LAB Device ID [id number] 03/22/2025 11:00 PM EDT [facility] Specimen Type POC Arterial 03/22/2025 11:00 PM EDT [facility] Blood Arterial blood specimen / Unknown 03/22/2025 10:59 PM EDT 03/22/2025 11:00 PM EDT us Musa Rosado MD LAB POINT OF CARE TE ST DOCKED DEVICE UNSOLICITED RESULTS Final Result Performing Organization Address City/[facility]/ZIP Co de Phone Number [facility] [address] [place] [address] * (ABNORMAL) POCT glucose meter (03/22/2025 10:40 PM EDT) [facility] POCT Glucose 184(H) 74 - 99 [...] Comment 03/22/2025 10:41 PM EDT [facility] Sports Betting Manager ID Kelly Haynes 03/22/2025 10:41 PM EDT [facility] Device ID [id number] 03/22/2025 10:41 PM EDT [facility] Specimen Type POC Arterial 03/22/2025 10:41 PM EDT [facility] Blood Arterial blood specimen / Unknown 03/22/2025 10:40 PM EDT 03/22/2025 10:41 PM EDT Musa Rosado MD LAB POINT OF CARE TE ST DOCKED DEVICE UNSOLICITED RESULTS Final Result Performing Organization Address City/State/[facility] Co de Phone Number [facility] [address] [place] [address] * (ABNORMAL) POCT glucose meter (03/22/2025 8:21 PM EDT) [facility] POCT Glucose 207(H) 74 - 99 mg/dL [...] 03/22/2025 8:22 PM EDT [facility] Sports Betting Manager ID Kelly Haynes 03/22/2025 8:22 PM EDT HEALTH[facility] LAB Device ID [id number] 03/22/2025 8:22 PM EDT [facility] Specimen Type POC Arterial 03/22/2025 8:22 PM EDT [facility] Blood Arterial blood specimen / Unknown 03/22/2025 8:21 PM EDT 03/22/2025 8:22 PM EDT us Musa Rosado MD LAB POINT OF CARE TE ST DOCKED DEVICE UNSOLICITED RESULTS Final Result [facility] [address] [place] [address] * (ABNORMAL) Blood gas, arterial (03/22/2025 8:17 PM EDT) pH, Arterial 7.37 7.35 - 7.45 LAB HEMATOLOGY METHOD 03/22/2025 8:[address] [facility] pCO2, Arterial 42 32 - 45 mmHg LAB HEMATOLOGY METHOD 03/22/2025 8:[address] [facility] pO2, Arterial 89 83 - 108 mmHg LAB HEMATOLOGY METHOD 03/22/2025 8:[address] [facility] SO2, Measured, Arterial 95 94 - 98 % LAB HEMATOLOGY METHOD 03/22/2025 8:[address] [facility] Base Excess, Arterial -0.9 -2.0 - 3.0 mmol/L LAB HEMATOLOGY METHOD 03/22/2025 8:[address] [facility] Bicarbonate, Calculated, Arterial 24 22 - 26 mmol/L LAB HEMATOLOGY METHOD 03/22/2025 8:[address] [facility] Hematocrit, Whole Blood 31.8(L) 40.0 - 51.0 % LAB HEMATOLOGY METHOD 03/22/2025 8:[address] [facility] Sodium, Whole Blood 141 136 - 145 mmol/L LAB HEMATOLOGY METHOD 03/22/2025 8:[address] [facility] Potassium, Whole Blood 4.1 3.6 - 4.9 mmol/L LAB HEMATOLOGY METHOD 03/22/2025 8:[address] [facility] Chloride, Whole Blood 110(H) 97 - 107 mmol/L LAB HEMATOLOGY METHOD 03/22/2025 8:[address] [facility] Glucose, Whole Blood 217(H) 74 - 99 mg/dL LAB HEMATOLOGY METHOD 03/22/2025 8:[address] [facility] Ionized Calcium, Whole Blood 4.4(L) 4.6 - 5.1 mg/dL LAB HEMATOLOGY METHOD 03/22/2025 8:[address] [facility] Lactate, Arterial, Whole Blood 2.1(H) 0.5 - 1.6 mmol/L LAB HEMATOLOGY METHOD 03/22/2025 8:[address] [facility] Blood Arterial blood specimen / Unknown Arterial Puncture / Unknown 03/22/2025 8:17 PM EDT 03/22/2025 8:27 PM EDT us Musa Rosado MD LAB BLOOD ORDERABLES Final R esult Performing Organization Address [facility] de Phone Number [facility] [address] [place] [address] * (ABNORMAL) Phosphorus (03/22/2025 8:14 PM EDT) Phosphorus, Plasma 1.6(L) 2.5 - 4.5 mg/dL 03/22/2025 8:[address] [facility] Blood Arterial blood specimen / Unknown Arterial Puncture / Unknown 03/22/2025 8:14 PM EDT 03/22/2025 8:28 PM EDT us Musa Rosado MD LAB BLOOD ORDERABLES Final R esult Performing Organization Address [facility] Co de Phone Number [facility] [address] [place] [address] * (ABNORMAL) Hematocrit (03/22/2025 8:14 PM EDT) HCT 30.1(L) 40.0 - 51.0 % LAB HEMATOLOGY METHOD 03/22/2025 8:[address] [facility] Blood Arterial blood specimen / Unknown Arterial Puncture / Unknown 03/22/2025 8:14 PM EDT 03/22/2025 8:28 PM EDT us Musa Rosado MD LAB BLOOD ORDERABLES Final R esult Performing Organization Address [facility]/ZIP Co de Phone Number [facility] [address] [place] [address] * (ABNORMAL) Hemoglobin (03/22/2025 8:14 PM EDT) HGB 10.4(L) 13.7 - 17.5 g/dL LAB HEMATOLOGY METHOD 03/22/2025 8:[address] [facility] Blood Arterial blood specimen / Unknown Arterial Puncture / Unknown 03/22/2025 8:14 PM EDT 03/22/2025 8:28 PM EDT Musa Rosado MD LAB BLOOD ORDERABLES Final R esult Performing Organization Address City/[facility]/ZIP Co de Phone Number [facility] [address] [place] [address] * Potassium, Plasma (03/22/2025 8:14 PM EDT) Pathologist [facility] Potassium, Plasma 4.2 3.6 - 4.9 mmol/L 03/22/2025 8:[address] [facility] Blood Arterial blood specimen / Unknown Arterial Puncture / Unknown 03/22/2025 8:14 PM EDT 03/22/2025 8:28 PM EDT Musa Rosado MD LAB BLOOD ORDERABLES Final R esult Performing Organization Address City/[facility]/ZIP Co de Phone Number [facility] [address] [place] [address] * (ABNORMAL) Blood gas panel, arterial (03/22/2025 5:44 PM EDT) pH, Arterial 7.36 7.35 - 7.45 LAB HEMATOLOGY METHOD 03/22/2025 5:[address] [facility] pCO2, Arterial 41 32 - 45 mmHg LAB HEMATOLOGY METHOD 03/22/2025 5:[address] [facility] pO2, Arterial 107 83 - 108 mmHg LAB HEMATOLOGY METHOD 03/22/2025 5:[address] [facility] SO2, Measured, Arterial 98 94 - 98 % LAB HEMATOLOGY METHOD 03/22/2025 5:[address] [facility] Base Excess, Arterial -2.2(L) -2.0 - 3.0 mmol/L LAB HEMATOLOGY METHOD 03/22/2025 5:[address] [facility] Bicarbonate, Calculated, Arterial 23 22 - 26 mmol/L LAB HEMATOLOGY METHOD 03/22/2025 5:[address] [facility] Hematocrit, Whole Blood 33.7(L) 40.0 - 51.0 % LAB HEMATOLOGY METHOD 03/22/2025 5:[address] [facility] Sodium, Whole Blood 142 136 - 145 mmol/L LAB HEMATOLOGY METHOD 03/22/2025 5:[address] [facility] Potassium, Whole Blood 4.1 3.6 - 4.9 mmol/L LAB HEMATOLOGY METHOD 03/22/2025 5:[address] [facility] Chloride, Whole Blood 111(H) 97 - 107 mmol/L LAB HEMATOLOGY METHOD 03/22/2025 5:[address] [facility] Glucose, Whole Blood 206(H) 74 - 99 mg/dL LAB HEMATOLOGY METHOD 03/22/2025 5:[address] [facility] Ionized Calcium, Whole Blood 4.3(L) 4.6 - 5.1 mg/dL LAB HEMATOLOGY METHOD 03/22/2025 5:[address] [facility] Lactate, Arterial, Whole Blood 2.3(H) 0.5 - 1.6 mmol/L LAB HEMATOLOGY METHOD 03/22/2025 5:[address] [facility] Blood Arterial blood specimen / Unknown Arterial Puncture / Unknown 03/22/2025 5:44 PM EDT 03/22/2025 5:53 PM EDT us Musa Rosado MD LAB BLOOD ORDERABLES Final R esult [facility] [address] [place] [address] * XR Chest 1 View (03/22/2025 4:46 [...] above the freddie. Right internal jugular approach [place]-Brea catheter with tip over the proximal right pulmonary artery. Mediastinal drain and bilateral chest tubes in place. Low lung volumes. Pulmonary vascular congestion. No pneumothorax. Interval median sternotomy and CABG. Procedure Note Carmencita Aponte MD - 03/22/2025 CLINICAL INDICATION: Post-Op Cardiac Surgery TECHNIQUE: XR CHEST 1 VIEW COMPARISON: 03/21/2025 FINDINGS: Endotracheal tube tip 6.5 cm above the freddie. Right internal jugularapproach [place]-Brea catheter with tip over the proximal right [...] IMG XR PROCEDURES Final Resu lt * [facility], E/M 30-74 MINUTES (03/22/2025 4:38 [...] ECG Atrial Rate 73 BPM MUSE ECG WA Interval 140 ms MUSE ECG QRSD Interval 86 ms MUSE ECG QT Interval 396 ms MUSE ECG QTC Interval 436 ms MUSE ECG P [place] 66 degrees MUSE ECG R [place] 26 degrees MUSE ECG T Wave [place] 52 degrees MUSE ECG Diagnosis Normal sinus rhythm MUSE ECG Diagnosis ST elevation, consider early repolarization , pericarditis, or injury MUSE ECG Diagnosis Need clinical information and correlation MUSE ECG Diagnosis MUSE ECG Diagnosis Confirmed by Jarett Steen ([id number]) on 03/22/2025 7:45:24 PM MUSE ECG 03/22/2025 4:10 PM EDT 03/22/2025 7:45 PM EDT us Musa Rosado MD ECG ORDERABLES Final Result MUSE ECG * (ABNORMAL) Blood gas, arterial - Post extubation (03/22/2025 3:52 PM EDT) pH, Arterial 7.35 7.35 - 7.45 LAB HEMATOLOGY METHOD 03/22/2025 4:[address] [facility] pCO2, Arterial 44 32 - 45 mmHg LAB HEMATOLOGY METHOD 03/22/2025 4:[address] [facility] pO2, Arterial 127(H) 83 - 108 mmHg LAB HEMATOLOGY METHOD 03/22/2025 4:[address] [facility] SO2, Measured, Arterial 99(H) 94 - 98 % LAB HEMATOLOGY METHOD 03/22/2025 4:[address] [facility] Base Excess, Arterial -1.9 -2.0 - 3.0 mmol/L LAB HEMATOLOGY METHOD 03/22/2025 4:[address] [facility] Bicarbonate, Calculated, Arterial 24 22 - 26 mmol/L LAB HEMATOLOGY METHOD 03/22/2025 4:[address] [facility] Hematocrit, Whole Blood 35.2(L) 40.0 - 51.0 % LAB HEMATOLOGY METHOD 03/22/2025 4:[address] [facility] Sodium, Whole Blood 142 136 - 145 mmol/L LAB HEMATOLOGY METHOD 03/22/2025 4:[address] [facility] Potassium, Whole Blood 3.8 3.6 - 4.9 mmol/L LAB HEMATOLOGY METHOD 03/22/2025 4:[address] [facility] Chloride, Whole Blood 112(H) 97 - 107 mmol/L LAB HEMATOLOGY METHOD 03/22/2025 4:[address] [facility] Glucose, Whole Blood 184(H) 74 - 99 mg/dL LAB HEMATOLOGY METHOD 03/22/2025 4:[address] [facility] Ionized Calcium, Whole Blood 4.4(L) 4.6 - 5.1 mg/dL LAB HEMATOLOGY METHOD 03/22/2025 4:[address] [facility] Lactate, Arterial, Whole Blood 2.6(H) 0.5 - 1.6 mmol/L LAB HEMATOLOGY METHOD 03/22/2025 4:[address] [facility] Blood Arterial blood specimen / Unknown Arterial Puncture / Unknown 03/22/2025 3:52 PM EDT 03/22/2025 4:31 PM EDT us Musa Rosado MD LAB BLOOD ORDERABLES Final R esult [facility] [address] [place] [address] * Denise auris Surveillance by PCR (03/22/2025 3:52 PM EDT) Denise auris PCR Result Not Detected Not Detected 03/23/2025 12:49 PM EDT [facility] Swab (Axilla and Groin) Non-blood Collection / Unknown 03/22/2025 3:52 PM EDT 03/22/2025 4:37 PM EDT Narrative [facility] - 03/23/2025 12:49 PM EDT This PCR assay was developed and its performance characteristics determined by [facility] as appropriate for clinical purposes. This assay has not been cleared or approved by the FDA, but is performed in a CLIA regulated laboratory that is qualified to perform high-complexity testing. Musa Rosado MD LAB MICROBIOLOGY - GENERAL O RDERABLES Final Result Performing Organization Address [facility] [place] [address] * Multi Drug Resistance Test (03/22/2025 3:52 PM EDT) Culture No growth at day 1 03/24/2025 7:31 AM EDT [facility] Swab (Nares and Lisa Rectal) Non-blood Collection / Unknown 03/22/2025 3:52 PM EDT 03/22/2025 4:37 PM EDT Narrative [facility] - 03/24/2025 7:31 AM EDT This test was developed and its performance characteristics determined by the [facility]. Although the media is FDA-approved, it is not FDA-approved for all specimen types submitted. The FDA has determined that such clearance or approval is not necessary. This test is used for surveillance purposes. It should not be regarded as investigational or for research. The [facility] is certified under the Clinical Laboratory Improvement Amendments of 1988 (CLIA-88) as qualified to perform high complexity clinical laboratory testing. Musa Rosado MD LAB MICROBIOLOGY - GENERAL O RDERABLES Final Result Performing Organization Address City/[facility]/ZIP Co de Phone Number [address] [address] * APTT (03/22/2025 3:52 PM EDT) aPTT 28 25 - 35 sec LAB COAGULATION METHOD 03/22/2025 5:[address] [facility] Blood Venous blood specimen / Unknown Venipuncture / Unknown 03/22/2025 3:52 PM EDT 03/22/2025 4:45 PM EDT Musa Rosado MD LAB BLOOD ORDERABLES Final R esult Performing Organization Address City/[facility]/ZIP Co de Phone Number [facility] [address] [place] [address] * (ABNORMAL) Protime-INR (03/22/2025 3:52 PM EDT) Prothrombin Time 17.0(H) 12.0 - 14.3 sec LAB COAGULATION METHOD 03/22/2025 5:[address] [facility] INR 1.4(H) 0.9 - 1.1 LAB COAGULATION METHOD 03/22/2025 5:[address] [facility] Blood Venous blood specimen / Unknown Venipuncture / Unknown 03/22/2025 3:52 PM EDT 03/22/2025 4:[address] [facility] - 03/22/2025 5:08 PM EDT OPTIMAL INR RANGES FOR PATIENT ON ORAL ANTICOAGULANT THERAPY Prevention of venous thromboembolism INR 2.0 to 3.0 In patients with heart disease: Atrial fibrillation INR 2.0 to 3.0 Valvular heart disease INR 2.0 to 3.0 Tissue heart valves INR 2.0 to 3.0 Mechanical prosthetic valves INR 2.5 to 3.5 Prevention of recurrent MO INR 2.5 to 3.5 us Musa Rosado MD LAB BLOOD ORDERABLES Final R esult [facility] [address] [place] [address] * (ABNORMAL) Phosphorus (03/22/2025 3:52 PM EDT) Phosphorus, Plasma 1.0(LL) 2.5 - 4.5 mg/dL 03/22/2025 5:[address] [facility] Blood Venous blood specimen / Unknown Venipuncture / Unknown 03/22/2025 3:52 PM EDT 03/22/2025 4:45 PM EDT us Musa Rosado MD LAB BLOOD ORDERABLES Final R esult Performing Organization Address [facility] Co de Phone Number [facility] [address] [place] [address] * (ABNORMAL) Magnesium (03/22/2025 3:52 PM EDT) Magnesium, Plasma 3.1(H) 1.9 - 2.4 mg/dL 03/22/2025 5:[address] [facility] Blood Venous blood specimen / Unknown Venipuncture / Unknown 03/22/2025 3:52 PM EDT 03/22/2025 4:45 PM EDT Musa Rosado MD LAB BLOOD ORDERABLES Final R esult Performing Organization Address [facility] de Phone Number [facility] [address] [place] [address] * (ABNORMAL) Basic metabolic panel (03/22/2025 3:52 PM EDT) Glucose, Plasma 188(H) 74 - 99 mg/dL 03/22/2025 5:[address] [facility] BUN, Plasma 17 7 - 21 mg/dL 03/22/2025 5:[address] [facility] Creatinine, Plasma 1.19 0.70 - 1.20 mg/dL 03/22/2025 5:[address] [facility] BUN/Creatinine Ratio 14 03/22/2025 5:[address] [facility] Sodium, Plasma 142 136 - 145 mmol/L 03/22/2025 5:[address] [facility] Potassium, Plasma 4.1 3.6 - 4.9 mmol/L 03/22/2025 5:[address] [facility] Chloride, Plasma 111(H) 97 - 107 mmol/L 03/22/2025 5:[address] [facility] CO2, Plasma 21(L) 22 - 29 mmol/L 03/22/2025 5:[address] [facility] Anion Gap 10 6 - 16 mmol/L 03/22/2025 5:[address] [facility] Total Calcium, Plasma 7.7(L) 8.9 - 10.2 mg/dL 03/22/2025 5:[address] [facility] eGFRcr 77.7 mL/min/1.7 3m*2 03/22/2025 5:[address] [facility] Comment:Reported eGFRcr in m L/min/1.73m2 is based the CKD-EPI 2020 equation that does not use a race coefficient. Blood Venous blood specimen / Unknown Venipuncture / Unknown 03/22/2025 3:52 PM EDT 03/22/2025 4:45 PM EDT us Musa Rosdao MD LAB BLOOD ORDERABLES Final R esult [facility] [address] [place] [address] * (ABNORMAL) CBC (03/22/2025 3:52 PM EDT) WBC Count 16.63(H) 3.70 - 10.30 10*3/uL LAB HEMATOLOGY METHOD 03/22/2025 4:[address] [facility] RBC Count 3.77(L) 4.60 - 6.10 10*6/uL LAB HEMATOLOGY METHOD 03/22/2025 4:[address] [facility] HGB 11.4(L) 13.7 - 17.5 g/dL LAB HEMATOLOGY METHOD 03/22/2025 4:[address] [facility] HCT 33.7(L) 40.0 - 51.0 % LAB HEMATOLOGY METHOD 03/22/2025 4:[address] [facility] Platelet Count 159 155 - 369 10*3/uL LAB HEMATOLOGY METHOD 03/22/2025 4:[address] [facility] MCV 89 79 - 98 fL LAB HEMATOLOGY METHOD 03/22/2025 4:[address] [facility] MCH 30.2 26.0 - 32.0 pg LAB HEMATOLOGY METHOD 03/22/2025 4:[address] [facility] MCHC 33.8 30.7 - 35.5 g/dL LAB HEMATOLOGY METHOD 03/22/2025 4:[address] [facility] RDW 13.4 11.5 - 14.5 % LAB HEMATOLOGY METHOD 03/22/2025 4:[address] [facility] MPV 11.0 8.8 - 12.5 fL LAB HEMATOLOGY METHOD 03/22/2025 4:[address] [facility] nRBC 0.0 <=0.0 per 100 WBCs LAB HEMATOLOGY METHOD 03/22/2025 4:[address] [facility] Blood Venous blood specimen / Unknown Venipuncture / Unknown 03/22/2025 3:52 PM EDT 03/22/2025 4:42 PM EDT us Musa Rosado MD LAB BLOOD ORDERABLES Final R esult [facility] [address] [place] [address] * (ABNORMAL) POCT arterial blood gas gem (03/22/2025 3:29 PM EDT) pH, Arterial 7.36 7.35 - 7.45 03/22/2025 3:41 PM EDT [facility] pCO2, Arterial 42 32 - 45 mm Hg 03/22/2025 3:41 PM EDT [facility] pO2, Arterial 150(H) 83 - 108 mm Hg 03/22/2025 3:41 PM EDT [facility] SO2, Arterial 98 94 - 98 % 03/22/2025 3:41 PM EDT [facility] Base Excess, Arterial -1.7 -2 - 3 mmol/L 03/22/2025 3:41 PM EDT [facility] HCO3, Arterial 23.7 22 - 26 mmol/L 03/22/2025 3:41 PM EDT [facility] Total Hemoglobin, Arterial, Whole Blood 11.2(L) 13.7 - 17.5 g/dL 03/22/2025 3:41 PM EDT [facility] Hematocrit, Arterial 34.0(L) 40 - 51.0 % 03/22/2025 3:41 PM EDT [facility] Sodium, Arterial 141 136 - 145 mmol/L 03/22/2025 3:41 PM EDT [facility] Potassium, Arterial 3.8 3.6 - 4.9 mmol/L 03/22/2025 3:41 PM EDT [facility] Chloride, Whole Blood 109(H) 97 - 107 mmol/L 03/22/2025 3:41 PM EDT [facility] Glucose, Arterial 192(H) 74 - 99 mg/dL 03/22/2025 3:41 PM EDT [facility] Ionized Calcium, Arterial 4.6 4.6 - 5.1 mg/dL 03/22/2025 3:41 PM EDT [facility] Lactate, Arterial 2.0(H) 0.5 - 1.6 mmol/L 03/22/2025 3:41 PM EDT [facility] Body Temperature 37.0 Celsius 03/22/2025 3:41 PM EDT [facility] pH, Temp Corrected, Arterial 7.36 7.35 - 7.45 03/22/2025 3:41 PM EDT [facility] pCO2, Temp Corrected, Arterial 42 32 - 45 mm Hg 03/22/2025 3:41 PM EDT [facility] pO2, Temp Corrected, Arterial 150(H) 83 - 108 mm Hg 03/22/2025 3:41 PM EDT [facility] Sports Betting Manager ID uLdin Aguiar 03/22/2025 3:41 PM EDT [facility] Blood, Arterial Whole blood specimen / Unknown 03/22/2025 3:29 PM EDT 03/22/2025 3:41 PM EDT us Musa Rosado MD LAB POINT OF CARE TE ST DOCKED DEVICE UNSOLICITED RESULTS Final Result [facility] [address] [place] [address] * (ABNORMAL) POCT arterial blood gas gem (03/22/2025 2:44 PM EDT) pH, Arterial 7.33(L) 7.35 - 7.45 03/22/2025 2:51 PM EDT [facility] pCO2, Arterial 46(H) 32 - 45 mm Hg 03/22/2025 2:51 PM EDT [facility] pO2, Arterial 182(H) 83 - 108 mm Hg 03/22/2025 2:51 PM T [facility] SO2, Arterial 97 94 - 98 % 03/22/2025 2:51 PM T [facility] Base Excess, Arterial -1.8 -2 - 3 mmol/L 03/22/2025 2:51 PM T [facility] HCO3, Arterial 24.3 22 - 26 mmol/L 03/22/2025 2:51 PM T [facility] Total Hemoglobin, Arterial, Whole Blood 10.8(L) 13.7 - 17.5 g/dL 03/22/2025 2:51 PM T [facility] Hematocrit, Arterial 32.0(L) 40 - 51.0 % 03/22/2025 2:51 PM [facility] Sodium, Arterial 141 136 - 145 mmol/L 03/22/2025 2:51 PM [facility] Potassium, Arterial 3.8 3.6 - 4.9 mmol/L 03/22/2025 2:51 PM [facility] Chloride, Whole Blood 111(H) 97 - 107 mmol/L 03/22/2025 2:51 PM [facility] Glucose, Arterial 187(H) 74 - 99 mg/dL 03/22/2025 2:51 PM [facility] Ionized Calcium, Arterial 4.7 4.6 - 5.1 mg/dL 03/22/2025 2:51 PM T [facility] Lactate, Arterial 1.8(H) 0.5 - 1.6 mmol/L 03/22/2025 2:51 PM T [facility] Body Temperature 37.0 Celsius 03/22/2025 2:51 PM T [facility] pH, Temp Corrected, Arterial 7.33(L) 7.35 - 7.45 03/22/2025 2:51 PM [facility] pCO2, Temp Corrected, Arterial 46(H) 32 - 45 mm Hg 03/22/2025 2:51 PM T [facility] pO2, Temp Corrected, Arterial 182(H) 83 - 108 mm Hg 03/22/2025 2:51 PM EDT [facility] Sports Betting Manager ID Ludin Aguiar 03/22/2025 2:51 PM EDT [facility] Blood, Arterial Whole blood specimen / Unknown 03/22/2025 2:44 PM EDT 03/22/2025 2:51 PM EDT us Musa Rosado MD LAB POINT OF CARE TE ST DOCKED DEVICE UNSOLICITED RESULTS Final Result [facility] [address] [place] [address] * QPLUS (03/22/2025 2:24 PM EDT) Clot Time 125 104 - 166 Seconds 03/22/2025 2:38 PM EDT [facility] Clot Time Ratio 1.0 0.8 - [...] PM EDT [facility] Fibrinogen Contribution to Clot Stiffness 1.8 1.0 - 3.7 hectoPascals 03/22/2025 2:38 PM EDT [facility] Heparinase Clot Time 126 103 - 153 Seconds 03/22/2025 2:38 PM EDT [facility] Sports Betting Manager ID Ludin Aguiar 03/22/2025 2:38 PM EDT [facility] Device ID [id number] 03/22/2025 2:38 PM EDT [facility] Whole Blood 03/22/2025 2:24 PM EDT 03/22/2025 2:38 PM EDT Musa Rosado MD LAB POINT OF CARE TE ST DOCKED DEVICE UNSOLICITED RESULTS Final Result [facility] [address] [place] [address] * (ABNORMAL) POCT arterial blood gas gem (03/22/2025 2:10 PM EDT) pH, Arterial 7.34(L) 7.35 - 7.45 03/22/2025 2:13 PM EDT [facility] pCO2, Arterial 43 32 - 45 mm Hg 03/22/2025 2:13 PM EDT [facility] pO2, Arterial 96 83 - 108 mm Hg 03/22/2025 2:13 PM EDT [facility] SO2, Arterial 97 94 - 98 % 03/22/2025 2:13 PM EDT [facility] Base Excess, Arterial -2.5(L) -2 - 3 mmol/L 03/22/2025 2:13 PM EDT [facility] HCO3, Arterial 23.2 22 - 26 mmol/L 03/22/2025 2:13 PM EDT [facility] Total Hemoglobin, Arterial, Whole Blood 9.4(L) 13.7 - 17.5 g/dL 03/22/2025 2:13 PM EDT [facility] Hematocrit, Arterial 28.0(L) 40 - 51.0 % 03/22/2025 2:13 PM EDT [facility] Sodium, Arterial 140 136 - 145 mmol/L 03/22/2025 2:13 PM EDT [facility] Potassium, Arterial 3.7 3.6 - 4.9 mmol/L 03/22/2025 2:13 PM EDT [facility] Chloride, Whole Blood 110(H) 97 - 107 mmol/L 03/22/2025 2:13 PM EDT [facility] Glucose, Arterial 212(H) 74 - 99 mg/dL 03/22/2025 2:13 PM EDT [facility] Ionized Calcium, Arterial 4.8 4.6 - 5.1 mg/dL 03/22/2025 2:13 PM EDT [facility] Lactate, Arterial 2.5(H) 0.5 - 1.6 mmol/L 03/22/2025 2:13 PM EDT [facility] Body Temperature 37.0 Celsius 03/22/2025 2:13 PM EDT [facility] pH, Temp Corrected, Arterial 7.34(L) 7.35 - 7.45 03/22/2025 2:13 PM EDT [facility] pCO2, Temp Corrected, Arterial 43 32 - 45 mm Hg 03/22/2025 2:13 PM EDT [facility] pO2, Temp Corrected, Arterial 96 83 - 108 mm Hg 03/22/2025 2:13 PM EDT [facility] Sports Betting Manager ID Temo Mendoza 03/22/2025 2:13 PM EDT [facility] Blood, Arterial Whole blood specimen / Unknown 03/22/2025 2:10 PM EDT 03/22/2025 2:13 PM EDT us Musa Rosado MD LAB POINT OF CARE TE ST DOCKED DEVICE UNSOLICITED RESULTS Final Result Performing Organization Address [facility] Co de Phone Number [facility] [address] [place] [address] * POCT ACT (03/22/2025 2:04 PM EDT) [facility] ACT+ (HIGH RANGE) 115 68 - 600 Seconds 03/22/2025 2:10 PM EDT [facility] Sports Betting Manager ID Selene Cardona 03/22/2025 2:10 PM EDT [facility] ACT Device ID [id number] 03/22/2025 2:10 PM EDT [facility] Comment 03/22/2025 2:[address] [facility] Comment: ACT performed by staff [...] UNSOLICITED RESULTS Final Result Performing Organization Address [facility] Co de Phone Number [facility] [address] [facility] [address] [place] [address] * (ABNORMAL) POCT arterial blood gas gem (03/22/2025 1:29 PM EDT) pH, Arterial 7.33(L) 7.35 - 7.45 03/22/2025 1:31 PM EDT [facility] pCO2, Arterial 42 32 - 45 mm Hg 03/22/2025 1:31 PM EDT [facility] pO2, Arterial 371(H) 83 - 108 mm Hg 03/22/2025 1:31 PM EDT [facility] SO2, Arterial 98 94 - 98 % 03/22/2025 1:31 PM EDT [facility] Base Excess, Arterial -3.6(L) -2 - 3 mmol/L 03/22/2025 1:31 PM EDT [facility] HCO3, Arterial 22.1 22 - 26 mmol/L 03/22/2025 1:31 PM EDT [facility] Total Hemoglobin, Arterial, Whole Blood 9.0(L) 13.7 - 17.5 g/dL 03/22/2025 1:31 PM EDT [facility] Hematocrit, Arterial 27.0(L) 40 - 51.0 % 03/22/2025 1:31 PM EDT [facility] Sodium, Arterial 138 136 - 145 mmol/L 03/22/2025 1:31 PM EDT [facility] Potassium, Arterial 4.2 3.6 - 4.9 mmol/L 03/22/2025 1:31 PM EDT [facility] Chloride, Whole Blood 109(H) 97 - 107 mmol/L 03/22/2025 1:31 PM EDT [facility] Glucose, Arterial 272(H) 74 - 99 mg/dL 03/22/2025 1:31 PM EDT [facility] Ionized Calcium, Arterial 4.9 4.6 - 5.1 mg/dL 03/22/2025 1:31 PM EDT [facility] Lactate, Arterial 2.6(H) 0.5 - 1.6 mmol/L 03/22/2025 1:31 PM EDT [facility] Body Temperature 37.0 Celsius 03/22/2025 1:31 PM EDT [facility] pH, Temp Corrected, Arterial 7.33(L) 7.35 - 7.45 03/22/2025 1:31 PM EDT [facility] pCO2, Temp Corrected, Arterial 42 32 - 45 mm Hg 03/22/2025 1:31 PM EDT [facility] pO2, Temp Corrected, Arterial 371(H) 83 - 108 mm Hg 03/22/2025 1:31 PM EDT [facility] [employer] ID Shelley Bridges 03/22/2025 1:31 PM EDT [facility] Blood, Arterial Whole blood specimen / Unknown 03/22/2025 1:29 PM EDT 03/22/2025 1:31 PM EDT us Musa Rosado MD LAB POINT OF CARE TE ST DOCKED DEVICE UNSOLICITED RESULTS Final Result Performing Organization Address [facility] Co de Phone Number [facility] [address] [place] [address] * POCT ACT (03/22/2025 1:25 PM EDT) [facility] Signature ACT+ (HIGH RANGE) 489 68 - 600 Seconds 03/22/2025 1:34 PM EDT [facility] [employer] Betting Manager ID Shelley Bridges 03/22/2025 1:34 PM EDT [facility] ACT Device ID [id number] 03/22/2025 1:34 PM EDT [facility] Comment 03/22/2025 1:[address] [facility] Comment: ACT performed by staff [...] UNSOLICITED RESULTS Final Result Performing Organization Address [facility] Co de Phone Number HEALTHCARE LAB [address] [place], [place] [id number] [place] [address] LAB 800 [place] [address] * (ABNORMAL) POCT arterial blood gas gem (03/22/2025 12:55 PM EDT) pH, Arterial 7.36 7.35 - 7.45 03/22/2025 12:56 PM EDT [facility] pCO2, Arterial 40 32 - 45 mm Hg 03/22/2025 12:56 PM EDT [facility] pO2, Arterial 179(H) 83 - 108 mm Hg 03/22/2025 12:56 PM EDT [facility] SO2, Arterial 97 94 - 98 % 03/22/2025 12:56 PM EDT [facility] Base Excess, Arterial -2.6(L) -2 - 3 mmol/L 03/22/2025 12:56 PM EDT [facility] HCO3, Arterial 22.6 22 - 26 mmol/L 03/22/2025 12:56 PM EDT [facility] Total Hemoglobin, Arterial, Whole Blood 9.3(L) 13.7 - 17.5 g/dL 03/22/2025 12:56 PM EDT [facility] Hematocrit, Arterial 28.0(L) 40 - 51.0 % 03/22/2025 12:56 PM EDT [facility] Sodium, Arterial 139 136 - 145 mmol/L 03/22/2025 12:56 PM EDT [facility] Potassium, Arterial 4.0 3.6 - 4.9 mmol/L 03/22/2025 12:56 PM T [facility] Chloride, Whole Blood 108(H) 97 - 107 mmol/L 03/22/2025 12:56 PM EDT [facility] Glucose, Arterial 245(H) 74 - 99 mg/dL 03/22/2025 12:56 PM EDT [facility] Ionized Calcium, Arterial 4.8 4.6 - 5.1 mg/dL 03/22/2025 12:56 PM T [facility] Lactate, Arterial 2.4(H) 0.5 - 1.6 mmol/L 03/22/2025 12:56 PM EDT [facility] Body Temperature 37.0 Celsius 03/22/2025 12:56 PM EDT [facility] pH, Temp Corrected, Arterial 7.36 7.35 - 7.45 03/22/2025 12:56 PM EDT [facility] pCO2, Temp Corrected, Arterial 40 32 - 45 mm Hg 03/22/2025 12:56 PM EDT [facility] pO2, Temp Corrected, Arterial 179(H) 83 - 108 mm Hg 03/22/2025 12:56 PM EDT [facility] Sports Betting Manager ID Selene Cardona 03/22/2025 12:56 PM EDT [facility]ALTH[facility] LAB Blood, Arterial Whole blood specimen / Unknown 03/22/2025 12:55 PM EDT 03/22/2025 12:56 PM EDT Musa Rosado MD LAB POINT OF CARE TE ST DOCKED DEVICE UNSOLICITED RESULTS Final Result Performing Organization Address City/[facility]/ZIP Co de Phone Number [facility]ALTHCARE LAB [address] [place] [address] * POCT ACT (03/22/2025 12:51 PM EDT) ACT+ (HIGH RANGE) 593 68 - 600 Seconds 03/22/2025 1:02 PM EDT [facility]ARE [facility] Sports Betting Manager ID Selene Cardona 03/22/2025 1:02 PM EDT [facility] ACT Device ID [id number] 03/22/2025 1:02 PM EDT [facility]ARE [facility] Comment 03/22/2025 1:[address] [facility] Comment: ACT performed by staff [...] UNSOLICITED RESULTS Final Result Performing Organization Address [facility] Co de Phone Number HEALTHCARE LAB [address] LAB [address] [place] [address] * (ABNORMAL) POCT arterial blood gas gem (03/22/2025 12:25 PM EDT) pH, Arterial 7.44 7.35 - 7.45 03/22/2025 12:26 PM EDT [facility] pCO2, Arterial 34 32 - 45 mm Hg 03/22/2025 12:26 PM EDT [facility] pO2, Arterial 296(H) 83 - 108 mm Hg 03/22/2025 12:26 PM EDT [facility] SO2, Arterial 97 94 - 98 % 03/22/2025 12:26 PM EDT [facility] Base Excess, Arterial -0.7 -2 - 3 mmol/L 03/22/2025 12:26 PM [facility] HCO3, Arterial 23.1 22 - 26 mmol/L 03/22/2025 12:26 PM T [facility] Total Hemoglobin, Arterial, Whole Blood 9.7(L) 13.7 - 17.5 g/dL 03/22/2025 12:26 [facility] Hematocrit, Arterial 29.0(L) 40 - 51.0 % 03/22/2025 12:26 [facility] Sodium, Arterial 138 136 - 145 mmol/L 03/22/2025 12:26 PM [facility] Potassium, Arterial 3.4(L) 3.6 - 4.9 mmol/L 03/22/2025 12:26 PM [facility] Chloride, Whole Blood 108(H) 97 - 107 mmol/L 03/22/2025 12:26 PM [facility] Glucose, Arterial 266(H) 74 - 99 mg/dL 03/22/2025 12: [facility] Ionized Calcium, Arterial 4.7 4.6 - 5.1 mg/dL 03/22/2025 12:26 PM [facility] Lactate, Arterial 2.3(H) 0.5 - 1.6 mmol/L 03/22/2025 12:26 PM [facility] Body Temperature 37.0 Celsius 03/22/2025 12:26 PM [facility] pH, Temp Corrected, Arterial 7.44 7.35 - 7.45 03/22/2025 12:26 PM [facility] pCO2, Temp Corrected, Arterial 34 32 - 45 mm Hg 03/22/2025 12:26 PM T [facility] pO2, Temp Corrected, Arterial 296(H) 83 - 108 mm Hg 03/22/2025 12:26 PM EDT [facility]ALTHCARE LAB Sports Betting Manager ID Selene Cardona 03/22/2025 12:26 PM EDT [facility] LAB Blood, Arterial Whole blood specimen / Unknown 03/22/2025 12:25 PM EDT 03/22/2025 12:26 PM EDT Musa Rosado MD LAB POINT OF CARE TE ST DOCKED DEVICE UNSOLICITED RESULTS Final Result Performing Organization Address [facility] Co de Phone Number HEALTHCARE LAB [address] [place] [address] * POCT ACT (03/22/2025 12:21 PM EDT) ACT+ (HIGH RANGE) 536 68 - 600 Seconds 03/22/2025 12:30 PM EDT HEALTHCARE LAB Sports Betting Manager ID Selene Cardona 03/22/2025 12:30 PM EDT [facility] ACT Device ID [id number] 03/22/2025 12:30 PM EDT [facility]ALTH[facility]ARE LAB Comment 03/22/2025 12:[address] [facility] Comment: ACT performed by staff [...] UNSOLICITED RESULTS Final Result Performing Organization Address [facility] Co de Phone Number HEALTHCARE LAB [address] LAB [address] [place] [address] * (ABNORMAL) POCT arterial blood gas gem (03/22/2025 11:54 AM EDT) pH, Arterial 7.31(L) 7.35 - 7.45 03/22/2025 11:56 AM EDT HEALTHCARE LAB pCO2, Arterial 43 32 - 45 mm Hg 03/22/2025 11:56 AM [facility] pO2, Arterial 234(H) 83 - 108 mm Hg 03/22/2025 11:56 AM [facility] SO2, Arterial 97 94 - 98 % 03/22/2025 11:56 AM [facility] Base Excess, Arterial -4.4(L) -2 - 3 mmol/L 03/22/2025 11:56 AM [facility] HCO3, Arterial 21.7(L) 22 - 26 mmol/L 03/22/2025 11:56 AM [facility] Total Hemoglobin, Arterial, Whole Blood 9.8(L) 13.7 - 17.5 g/dL 03/22/2025 11:56 AM [facility] Hematocrit, Arterial 29.0(L) 40 - 51.0 % 03/22/2025 11:56 AM [facility] Sodium, Arterial 139 136 - 145 mmol/L 03/22/2025 11:56 AM [facility] Potassium, Arterial 2.9(L) 3.6 - 4.9 mmol/L 03/22/2025 11:56 AM [facility] Chloride, Whole Blood 107 97 - 107 mmol/L 03/22/2025 11:56 AM [facility] Glucose, Arterial 243(H) 74 - 99 mg/dL 03/22/2025 11:56 AM [facility] Ionized Calcium, Arterial 4.9 4.6 - 5.1 mg/dL 03/22/2025 11:56 AM [facility] Lactate, Arterial 2.2(H) 0.5 - 1.6 mmol/L 03/22/2025 11:56 AM [facility] Body Temperature 37.0 Celsius 03/22/2025 11:56 AM [facility] pH, Temp Corrected, Arterial 7.31(L) 7.35 - 7.45 03/22/2025 11:56 AM [facility] pCO2, Temp Corrected, Arterial 43 32 - 45 mm Hg 03/22/2025 11:56 AM [facility] pO2, Temp Corrected, Arterial 234(H) 83 - 108 mm Hg 03/22/2025 11:56 AM EDT [facility] Sports Betting Manager ID Selene Cardona 03/22/2025 11:56 AM EDT [facility] Blood, Arterial Whole blood specimen / Unknown 03/22/2025 11:54 AM EDT 03/22/2025 11:56 AM EDT Musa Rosado MD LAB POINT OF CARE TE ST DOCKED DEVICE UNSOLICITED RESULTS Final Result Performing Organization Address City/[facility] Co de Phone Number HEALTHCARE LAB [address] [place] [address] * POCT ACT (03/22/2025 11:49 AM EDT) ACT+ (HIGH RANGE) 591 68 - 600 Seconds 03/22/2025 12:30 PM EDT HEALTHCARE LAB Sports Betting Manager ID Selene Cardona 03/22/2025 12:30 PM EDT [facility]ARE [facility] ACT Device ID [id number] 03/22/2025 12:30 PM EDT HEALTH[facility]ARE LAB Comment 03/22/2025 12:[address] [facility] Comment: ACT performed by staff [...] UNSOLICITED RESULTS Final Result Performing Organization Address [facility] Co de Phone Number [facility] [address] LAB [address] [place] [address] * (ABNORMAL) POCT arterial blood gas gem (03/22/2025 11:26 AM EDT) pH, Arterial 7.37 7.35 - 7.45 03/22/2025 11:28 AM EDT HEALTHCARE LAB pCO2, Arterial 42 32 - 45 mm Hg 03/22/2025 11:28 AM EDT [facility] pO2, Arterial 251(H) 83 - 108 mm Hg 03/22/2025 11:28 AM [facility] SO2, Arterial 98 94 - 98 % 03/22/2025 11:28 AM [facility] Base Excess, Arterial -1.0 -2 - 3 mmol/L 03/22/2025 11:28 AM [facility] HCO3, Arterial 24.3 22 - 26 mmol/L 03/22/2025 11:28 AM [facility] Total Hemoglobin, Arterial, Whole Blood 9.2(L) 13.7 - 17.5 g/dL 03/22/2025 11:28 AM [facility] Hematocrit, Arterial 28.0(L) 40 - 51.0 % 03/22/2025 11:28 AM [facility] Sodium, Arterial 136 136 - 145 mmol/L 03/22/2025 11:28 AM [facility] Potassium, Arterial 3.6 3.6 - 4.9 mmol/L 03/22/2025 11:28 AM [facility] Chloride, Whole Blood 106 97 - 107 mmol/L 03/22/2025 11:28 AM [facility] Glucose, Arterial 248(H) 74 - 99 mg/dL 03/22/2025 11:28 AM [facility] Ionized Calcium, Arterial 4.7 4.6 - 5.1 mg/dL 03/22/2025 11:28 AM [facility] Lactate, Arterial 1.5 0.5 - 1.6 mmol/L 03/22/2025 11:28 AM [facility] Body Temperature 37.0 Celsius 03/22/2025 11:28 AM [facility] pH, Temp Corrected, Arterial 7.37 7.35 - 7.45 03/22/2025 11:28 AM [facility] pCO2, Temp Corrected, Arterial 42 32 - 45 mm Hg 03/22/2025 11:28 AM [facility] pO2, Temp Corrected, Arterial 251(H) 83 - 108 mm Hg 03/22/2025 11:28 AM [facility] Sports Betting Manager ID Selene Cardona 03/22/2025 11:28 AM [facility] Blood, Arterial Whole blood specimen / Unknown 03/22/2025 11:26 AM EDT 03/22/2025 11:28 AM EDT Musa Rosado MD LAB POINT OF CARE TE ST DOCKED DEVICE UNSOLICITED RESULTS Final Result Performing Organization Address [facility] de Phone Number HEALTHCARE LAB [address] [place] [address] * POCT ACT (03/22/2025 11:22 AM EDT) ACT+ (HIGH RANGE) 534 68 - 600 Seconds 03/22/2025 11:31 AM EDT HEALTHCARE LAB Sports Betting Manager ID Selene Cardona 03/22/2025 11:31 AM EDT HEALTH[facility]ARE [facility] ACT Device ID [id number] 03/22/2025 11:31 AM EDT [facility]ALTH[facility]ARE LAB Comment 03/22/2025 11:[address] [facility] Comment: ACT performed by staff [...] UNSOLICITED RESULTS Final Result Performing Organization Address [facility] de Phone Number HEALTHCARE LAB [address] LAB [address] [place] [address] * (ABNORMAL) POCT arterial blood gas gem (03/22/2025 10:55 AM EDT) pH, Arterial 7.40 7.35 - 7.45 03/22/2025 10:56 AM EDT [facility] pCO2, Arterial 41 32 - 45 mm Hg 03/22/2025 10:56 AM EDT HEALTH[facility]ARE LAB pO2, Arterial 183(H) 83 - 108 mm Hg 03/22/2025 10:56 AM EDT HEALTH[facility]ARE LAB SO2, Arterial 97 94 - 98 % 03/22/2025 10:56 AM [facility] Base Excess, Arterial 0.5 -2 - 3 mmol/L 03/22/2025 10:56 AM [facility] HCO3, Arterial 25.4 22 - 26 mmol/L 03/22/2025 10:56 AM [facility] Total Hemoglobin, Arterial, Whole Blood 12.6(L) 13.7 - 17.5 g/dL 03/22/2025 10:56 AM [facility] Hematocrit, Arterial 38.0(L) 40 - 51.0 % 03/22/2025 10:56 AM [facility] Sodium, Arterial 139 136 - 145 mmol/L 03/22/2025 10:56 AM [facility] Potassium, Arterial 4.1 3.6 - 4.9 mmol/L 03/22/2025 10:56 AM [facility] Chloride, Whole Blood 107 97 - 107 mmol/L 03/22/2025 10:56 AM [facility] Glucose, Arterial 157(H) 74 - 99 mg/dL 03/22/2025 10:56 AM [facility] Ionized Calcium, Arterial 4.7 4.6 - 5.1 mg/dL 03/22/2025 10:56 AM [facility] Lactate, Arterial 1.1 0.5 - 1.6 mmol/L 03/22/2025 10:56 AM [facility] Body Temperature 37.0 Celsius 03/22/2025 10:56 AM [facility] pH, Temp Corrected, Arterial 7.40 7.35 - 7.45 03/22/2025 10:56 AM [facility] pCO2, Temp Corrected, Arterial 41 32 - 45 mm Hg 03/22/2025 10:56 AM [facility] pO2, Temp Corrected, Arterial 183(H) 83 - 108 mm Hg 03/22/2025 10:56 AM [facility] Sports Betting Manager ID Selene Cardona 03/22/2025 10:56 AM [facility] Blood, Arterial Whole blood specimen / Unknown 03/22/2025 10:55 AM EDT 03/22/2025 10:56 AM T us Musa Rosado MD LAB POINT OF CARE TE ST DOCKED DEVICE UNSOLICITED RESULTS Final Result Performing Organization Address City/[facility]/ZIP Co de Phone Number [facility]ALTH[facility]ARE LAB [address] [place] [address] * POCT ACT (03/22/2025 10:52 AM EDT) ACT+ (HIGH RANGE) 599 68 - 600 Seconds 03/22/2025 11:02 AM EDT HEALTHCARE LAB Sports Betting Manager ID Selene Cardona 03/22/2025 11:02 AM EDT HEALTH[facility]ARE LAB ACT Device ID [id number] 03/22/2025 11:02 AM EDT [facility] Comment 03/22/2025 11:[address] [facility] Comment: ACT performed by staff [...] UNSOLICITED RESULTS Final Result Performing Organization Address [facility] de Phone Number HEALTH[facility]ARE LAB [address] LAB [address] [place] [address] * (ABNORMAL) POCT arterial blood gas gem (03/22/2025 10:04 AM EDT) pH, Arterial 7.36 7.35 - 7.45 03/22/2025 10:06 AM EDT HEALTH[facility]ARE LAB pCO2, Arterial 46(H) 32 - 45 mm Hg 03/22/2025 10:06 AM EDT HEALTH[facility]ARE LAB pO2, Arterial 178(H) 83 - 108 mm Hg 03/22/2025 10:06 AM EDT [facility] SO2, Arterial 97 94 - 98 % 03/22/2025 10:06 AM EDT HEALTHCARE LAB Base Excess, Arterial 0.1 -2 - 3 mmol/L 03/22/2025 10:06 AM EDT [facility] HCO3, Arterial 26.0 22 - 26 mmol/L 03/22/2025 10:06 AM EDT [facility] Total Hemoglobin, Arterial, Whole Blood 13.3(L) 13.7 - 17.5 g/dL 03/22/2025 10:06 AM EDT [facility] Hematocrit, Arterial 40.0 40 - 51.0 % 03/22/2025 10:06 AM EDT [facility] Sodium, Arterial 139 136 - 145 mmol/L 03/22/2025 10:06 AM EDT [facility] Potassium, Arterial 4.1 3.6 - 4.9 mmol/L 03/22/2025 10:06 AM EDT [facility] Chloride, Whole Blood 105 97 - 107 mmol/L 03/22/2025 10:06 AM EDT [facility] Glucose, Arterial 174(H) 74 - 99 mg/dL 03/22/2025 10:06 AM EDT [facility] Ionized Calcium, Arterial 4.9 4.6 - 5.1 mg/dL 03/22/2025 10:06 AM EDT [facility] Lactate, Arterial 1.2 0.5 - 1.6 mmol/L 03/22/2025 10:06 AM EDT [facility] Body Temperature 37.0 Celsius 03/22/2025 10:06 AM EDT [facility] pH, Temp Corrected, Arterial 7.36 7.35 - 7.45 03/22/2025 10:06 AM EDT [facility] pCO2, Temp Corrected, Arterial 46(H) 32 - 45 mm Hg 03/22/2025 10:06 AM EDT [facility] pO2, Temp Corrected, Arterial 178(H) 83 - 108 mm Hg 03/22/2025 10:06 AM EDT [facility] Sports Betting Manager ID Temo Mendoza 03/22/2025 10:06 AM EDT [facility] Blood, Arterial Whole blood specimen / Unknown 03/22/2025 10:04 AM EDT 03/22/2025 10:06 AM EDT us Musa Rosado MD LAB POINT OF CARE TE ST DOCKED DEVICE UNSOLICITED RESULTS Final Result [facility] [address] [place] [address] * (ABNORMAL) POCT arterial blood gas gem (03/22/2025 8:01 AM EDT) pH, Arterial 7.44 7.35 - 7.45 03/22/2025 9:00 AM EDT [facility] pCO2, Arterial 39 32 - 45 mm Hg 03/22/2025 9:00 AM EDT [facility] pO2, Arterial 78(L) 83 - 108 mm Hg 03/22/2025 9:00 AM EDT [facility] SO2, Arterial 96 94 - 98 % 03/22/2025 9:00 AM EDT [facility] Base Excess, Arterial 2.3 -2 - 3 mmol/L 03/22/2025 9:00 AM EDT [facility] HCO3, Arterial 26.5(H) 22 - 26 mmol/L 03/22/2025 9:00 AM EDT [facility] Total Hemoglobin, Arterial, Whole Blood 13.8 13.7 - 17.5 g/dL 03/22/2025 9:00 AM EDT [facility] Hematocrit, Arterial 41.0 40 - 51.0 % 03/22/2025 9:00 AM EDT [facility] Sodium, Arterial 139 136 - 145 mmol/L 03/22/2025 9:00 AM EDT [facility] Potassium, Arterial 3.8 3.6 - 4.9 mmol/L 03/22/2025 9:00 AM EDT [facility] Chloride, Whole Blood 104 97 - 107 mmol/L 03/22/2025 9:00 AM EDT [facility] Glucose, Arterial 207(H) 74 - 99 mg/dL 03/22/2025 9:00 AM EDT [facility] Ionized Calcium, Arterial 5.0 4.6 - 5.1 mg/dL 03/22/2025 9:00 AM EDT [facility] Lactate, Arterial 1.1 0.5 - 1.6 mmol/L 03/22/2025 9:00 AM EDT [facility] Body Temperature 37.0 Celsius 03/22/2025 9:00 AM EDT [facility] pH, Temp Corrected, Arterial 7.44 7.35 - 7.45 03/22/2025 9:00 AM EDT [facility] pCO2, Temp Corrected, Arterial 39 32 - 45 mm Hg 03/22/2025 9:00 AM EDT HEALTHCARE LAB pO2, Temp Corrected, Arterial 78(L) 83 - 108 mm Hg 03/22/2025 9:00 AM EDT HEALTHCARE LAB Sports Betting Manager ID Ludin Aguiar 03/22/2025 9:00 AM EDT HEALTHCARE LAB Blood, Arterial Whole blood specimen / Unknown 03/22/2025 8:01 AM EDT 03/22/2025 9:00 AM EDT us Musa Rosado MD LAB POINT OF CARE TE ST DOCKED DEVICE UNSOLICITED RESULTS Final Result Performing Organization Address [facility]/ZIP Co de Phone Number [facility] [address] [place] [address] * POCT ACT (03/22/2025 7:57 AM EDT) ACT+ (HIGH RANGE) 107 68 - 600 Seconds 03/22/2025 8:02 AM EDT HEALTHCARE LAB Sports Betting Manager ID Jean Acevedo 03/22/2025 8:02 AM EDT HEALTH[facility]ARE [facility] ACT Device ID [id number] 03/22/2025 8:02 AM EDT HEALTH[facility]ARE LAB Comment 03/22/2025 8:[address] [facility] Comment: ACT performed by staff [...] UNSOLICITED RESULTS Final Result Performing Organization Address City/[facility]/ZIP Co de Phone Number [facility]ARE LAB [address] [place], [place] [id number] [place] [address] LAB [address] [place] [address] * APTT (03/22/2025 6:32 AM EDT) aPTT 28 25 - 35 sec LAB COAGULATION METHOD 03/22/2025 6:[address] [facility] Blood Venous blood specimen / Unknown Venipuncture / Unknown 03/22/2025 6:32 AM EDT 03/22/2025 6:38 AM EDT Zulay Syed APRN LAB BLOOD ORDERABLES Final R esult Performing Organization Address City/[facility]/ZIP Co de Phone Number [facility] [address] [place] [address] * Protime-INR (03/22/2025 6:32 AM EDT) Prothrombin Time 13.6 12.0 - 14.3 sec LAB COAGULATION METHOD 03/22/2025 6:[address] [facility] INR 1.0 0.9 - 1.1 LAB COAGULATION METHOD 03/22/2025 6:[address] [facility] Blood Venous blood specimen / Unknown Venipuncture / Unknown 03/22/2025 6:32 AM EDT 03/22/2025 6:[address] [facility] - 03/22/2025 6:58 AM EDT OPTIMAL INR RANGES FOR PATIENT ON ORAL ANTICOAGULANT THERAPY Prevention of venous thromboembolism INR 2.0 to 3.0 In patients with heart disease: Atrial fibrillation INR 2.0 to 3.0 Valvular heart disease INR 2.0 to 3.0 Tissue heart valves INR 2.0 to 3.0 Mechanical prosthetic valves INR 2.5 to 3.5 Prevention of recurrent MO INR 2.5 to 3.5 Zulay Syed APRN LAB BLOOD ORDERABLES Final R esult [facility] [address] [place] [address] * (ABNORMAL) Comprehensive metabolic panel (03/22/2025 6:32 AM EDT) Glucose, Plasma 180(H) 74 - 99 mg/dL 03/22/2025 7:[address] [facility] BUN, Plasma 20 7 - 21 mg/dL 03/22/2025 7:[address] [facility] Creatinine, Plasma 1.29(H) 0.70 - 1.20 mg/dL 03/22/2025 7:[address] [facility] BUN/Creatinine Ratio 16 03/22/2025 7:[address] [facility] Sodium, Plasma 139 136 - 145 mmol/L 03/22/2025 7:[address] [facility] Potassium, Plasma 3.9 3.6 - 4.9 mmol/L 03/22/2025 7:[address] [facility] Chloride, Plasma 104 97 - 107 mmol/L 03/22/2025 7:[address] [facility] CO2, Plasma 24 22 - 29 mmol/L 03/22/2025 7:[address] [facility] Anion Gap 11 6 - 16 mmol/L 03/22/2025 7:[address] [facility] Total Calcium, Plasma 9.5 8.9 - 10.2 mg/dL 03/22/2025 7:[address] [facility] Total Protein 7.2 6.3 - 7.9 g/dL 03/22/2025 7:[address] [facility] Albumin, Plasma 4.4 3.5 - 5.2 g/dL 03/22/2025 7:[address] [facility] AST, Plasma 24 10 - 50 U/L 03/22/2025 7:[address] [facility] Comment:Hemolyzed, result ma y be falsely increased. ALT, Plasma 28 10 - 50 U/L 03/22/2025 7:[address] [facility] Alkaline Phosphatase, Plasma 41 40 - 115 U/L 03/22/2025 7:[address] [facility] Total Bilirubin, Plasma 0.4 0.2 - 1.1 mg/dL 03/22/2025 7:[address] [facility] eGFRcr 70.6 mL/min/1.7 3m*2 03/22/2025 7:[address] [facility] Comment:Reported eGFRcr in m L/min/1.73m2 is based the CKD-EPI 2020 equation that does not use a race coefficient. Blood Venous blood specimen / Unknown Venipuncture / Unknown 03/22/2025 6:32 AM EDT 03/22/2025 6:38 AM EDT us Zulay Syed [employer] LAB BLOOD ORDERABLES Final R esult [facility] [address] [place] [address] * CBC (03/22/2025 6:32 AM EDT) WBC Count 5.45 3.70 - 10.30 10*3/uL LAB HEMATOLOGY METHOD 03/22/2025 7:[address] [facility] RBC Count 4.78 4.60 - 6.10 10*6/uL LAB HEMATOLOGY METHOD 03/22/2025 7:[address] [facility] HGB 14.7 13.7 - 17.5 g/dL LAB HEMATOLOGY METHOD 03/22/2025 7:[address] [facility] HCT 42.5 40.0 - 51.0 % LAB HEMATOLOGY METHOD 03/22/2025 7:[address] [facility] Platelet Count 183 155 - 369 10*3/uL LAB HEMATOLOGY METHOD 03/22/2025 7:[address] [facility] MCV 89 79 - 98 fL LAB HEMATOLOGY METHOD 03/22/2025 7:[address] [facility] MCH 30.8 26.0 - 32.0 pg LAB HEMATOLOGY METHOD 03/22/2025 7:[address] [facility] MCHC 34.6 30.7 - 35.5 g/dL LAB HEMATOLOGY METHOD 03/22/2025 7:[address] [facility] RDW 13.3 11.5 - 14.5 % LAB HEMATOLOGY METHOD 03/22/2025 7:[address] [facility] MPV 11.2 8.8 - 12.5 fL LAB HEMATOLOGY METHOD 03/22/2025 7:[address] [facility] nRBC 0.0 <=0.0 per 100 WBCs LAB HEMATOLOGY METHOD 03/22/2025 7:[address] [facility] Blood Venous blood specimen / Unknown Venipuncture / Unknown 03/22/2025 6:32 AM EDT 03/22/2025 6:38 AM EDT us Zulay Syed APRN LAB BLOOD ORDERABLES Final R esult Performing Organization Address [facility] Co de Phone Number [facility] [address] [place] [address] * (ABNORMAL) POCT glucose meter (03/22/2025 6:31 AM EDT) [facility] POCT Glucose 188(H) 74 - 99 mg/dL [...] for testing. Comment 03/22/2025 6:33 AM EDT [facility] LAB Sports Betting Manager ID Beverly Romano 03/22/2025 6:33 AM EDT [facility] Device ID [id number] 03/22/2025 6:33 AM EDT [facility] Specimen Type POC Venous 03/22/2025 6:33 AM EDT [facility] Blood Venous blood specimen / Unknown 03/22/2025 6:31 AM EDT 03/22/2025 6:33 AM EDT us Musa Rosado MD LAB POINT OF CARE TE ST DOCKED DEVICE UNSOLICITED RESULTS Final Result Performing Organization Address [facility]/ZIP Co de Phone Number [facility] [address] [place] [address] documented in this encounter Visit Diagnoses Diagnosis CAD (coronary artery disease)- Primary Coronary atherosclerosis of unspecified type of vessel, chicken ranch or graft CAD, multiple vessel S/P CABG [...] 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 ([facility]) Atrial fibrillation ([facility]) Atrial fibrillation CKD (chronic kidney disease) stage 2, GFR 60-89 ml/min Chronic kidney disease, Stage II (mild) Postoperative pain Other acute postoperative pain Coronary artery disease due to calcified coronary lesion CKD (chronic kidney disease) stage 2, GFR 60-89 ml/min Chronic kidney disease, Stage II (mild) 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 ([facility]) Obesity (BMI 30-39.9) documented in this encounter Admitting Diagnoses Diagnosis CAD (coronary artery disease) Coronary atherosclerosis of unspecified type of vessel, chicken ranch or graft CAD, multiple vessel S/P CABG [...] Roca RN) 09 (Given - Provider: Gulshan Mednoza RN) fenofibrate (Tricor) tablet 145 mg 145 [...] Roca RN) 0616 (Given - Provider: Afshan Rcoa, LISSY) insulin glargine-yfgn 100 UNIT/ML injection 30 [...] 1730, Until Discontinued, Routine 0501 (Return to [facility] - Provider: Afshan Roca RN)173 (Given - Provider: Sonia Martell RN) 0454 [facility]: Afshan Roca RN)1808 (Given - Provider: Beverly Meeks, LISSY) 0509 ([facility] - Provider: Afshan Roca RN) traMADol (Ultram) [...] - Provider: Afshan Roca, LISSY)1039 (Return to [facility] - Provider: Maureen Bang RN)1745 (Given - [...] documented as of this encounter Care Teams Sales And Marketing Professional Relationship Specialty Start Date End Date David Iverson MD PCP - General 06/06/22 Ludin Gonzalez MD [address] [place] [address] Referring Physician 02/18/25 documented as of this encounter
--- OUTSIDE RECORDS SUMMARY | 2025-04-06 14:31 | XMS_ITS | Encounter Summary ---
Author Organization Healthcare Address [address] [place] [address] Care Team Providers Care Stock Patch Sawyer Name Role Phone David Iverson MD Primary Care Provider [phone] Ludin Gonzalez MD Unavailable [phone] Encounter Details Date Type Department Care Team (Latest Contact Info) Description 03/28/2025 Travel Social History Tobacco Use Types Packs/Day Years [...] you are drinking? Patient does not drink 06/16/202 5 Q3: How often do you have si [...] were you homeless or living in a assisted (including now)? No 03/23/2025 Utilities Answer Date [...] Date of Assessment Author No Risk Indicated 03/28/2025 8:00 PM EDT Александр Roca RN * Question Answer Date of Assessment Author 1. Wish to be (Past 1 Month) No 025 8:00 PM JARADT Afshan Roca RN 2. Non-Specific Active Suici beverley Thoughts (Past 1 Month) No 03/28/2025 8:00 PM JARADT Cait Roca RN 6. Suicidal Behavior (Lifetime) No 8:00 PM EDT Afshan Roca RN documented as of this encounter Plan of Treatment Upcoming Encounters Date Type Department Care Team (Late st Contact Info) Description 04/14/2025 3:40 PM EDT Office Visit [facility] [address], [address] [place] [address] Musa Rosado MD [address] [place] [address] 06/13/2025 11:40 AM EDT Office Visit [facility] [place] [address], [address] [place] [address] Sonia Medley MD [address] [place] [address] documented as of this encounter Goals Goal Patient Goal Type Associated Problems Recent Progress Patient-Stated? 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 Syed, COLLECTION SUPPORT SPECIALIST documented as of this encounter Visit Diagnoses [...] documented as of this encounter Care Teams Stock Patch Sawyer Relationship Specialty Start Date End Date David Iverson MD PCP - General 06/06/22 Ludin Gonzalez MD [address] [address] Referring Physician 02/18/25 documented as of this encounter
--- OUTSIDE RECORDS SUMMARY | 2025-04-06 14:31 | XMS_ITS | Clinical Summary ---
Author Organization [facility] Address [address] [place] [address] Care Team Providers Care Pattern Maker Name Role Phone David Iverson MD Primary Care Provider [phone] Ludin Gonzalez MD Unavailable [phone] Allergies No known active allergies Medications allopurinol (Zyloprim) 300 MG tablet Take by mouth 1 (one) time each day. Active aspirin 81 MG EC tablet Take 1 tablet by mouth daily. Active gabapentin (Neurontin) 300 MG capsule Take 1 capsule by mouth 2 times a day. Active omeprazole (PriLOSEC) [address] capsule Take 1 capsule by mouth daily. Active traMADol (Ultram) 50 MG tablet Take by mouth every 6 hours. Active fenofibrate (Tricor) 145 MG tablet Take 1 tablet by mouth daily. 11/29/19 Active Kerendia 10 MG tablet Take 10 mg by mouth daily. 04/09/20 23 Active nitroglycerin (Nitrostat) 0.4 MG SL tablet DISSOLVE 1 TABLET UNDER THE TONGUE EVERY 5 MINUTES NEEDED FOR CHEST PAIN. DO NOT EXCEED A TOTAL OF 3 DOSES IN 15 MINUTES. IF NO RELIEF CALL 911. 02/24/20 25 Active atorvastatin (Lipitor) 80 MG tablet Take 1 tablet by mouth nightly. 30 tablet 03/30/20 25 Active Lantus SoloStar 100 UNIT/ML injection pen Inject 28 Units under the skin nightly. 03/30/20 25 Active NovoLOG FLEXPEN 100 UNIT/ML injection pen Inject 6 Units under the skin 3 times a day with meals. Correction 1:50 >150 03/30/20 25 Active acetaminophen (Tylenol) 500 MG tablet Take 2 tablets by mouth every 6 hours as needed for pain. 100 tablet 03/30/20 Active docusate sodium 100 MG capsule Take 100 mg by mouth 2 times a day for 10 days. Hold for loose stool 20 capsule 03/30/20 25 Active furosemide (Lasix) 40 MG tablet Take 1 tablet by mouth daily for 3 days. 3 tablet 03/31/20 Active methocarbamol (Robaxin) 500 MG tablet Take 2 tablets by mouth 4 times a day for 10 days. 80 tablet 03/30/20 25 Active naloxone (Narcan) 4 mg/0.1 mL nasal spray 1. Give 1 spray in nostril for no/slow breathing or cannot wake after opioid use 2. Call 911 3. Repeat in other nostril if symptoms continue 1 each 03/30/20 Active metoprolol tartrate (Lopressor) 25 MG tablet Take 0.5 tablets by mouth 2 times a day. 30 tablet 3 03/30/20 Active senna (Senokot) 8.6 MG tablet Take 2 tablets by mouth daily for 10 days. Hold for loose stools. 20 tablet 03/30/20 Active atorvastatin (Lipitor) 40 MG tablet Take by mouth 1 (one) time each day. Discontinued(St op Taking at Discharge) hydroCHLOROthi azide (HYDRODiuril) 25 MG tablet Take 1 tablet by mouth daily. Discontinued(St op Taking at Discharge) Insulin Aspart (NOVOLOG FLEXPEN SC) Inject 30 Units under the skin 3 (three) times a day before meals. Discontinued nebivolol (Bystolic) 5 MG tablet Take 1 tablet by mouth daily. 025 Discontinued(St op Taking at Discharge) Easy Touch Pen [place] 31G X 8 MM misc 04/18/20 025 Discontinued(En tered in Error) NovoLOG FLEXPEN 100 UNIT/ML injection pen 04/18/20 025 Discontinued(En tered in Error) Lantus SoloStar 100 UNIT/ML injection pen Inject 3-5 Units under the skin at night as needed. 04/21/20 025 Discontinued Jardiance 25 MG Take 1 tablet by mouth daily. 04/16/20 23 025 Discontinued(St op Taking at Discharge) sildenafil (Viagra) 100 MG tablet Take 1 tablet by mouth as needed for erectile dysfunction. 03/31/20 025 Discontinued(St op Taking at Discharge) lisinopril 20 MG tablet Take 1 tablet by mouth daily. 05/16/20 025 Discontinued(St op Taking at Discharge) dilTIAZem CD (Cardizem CD) 120 MG 24 hr capsule Take 1 capsule by mouth daily. 08/25/20 025 Discontinued(St op Taking at Discharge) Xarelto 20 MG tablet TAKE 1 TABLET BY MOUTH EVERY EVENING WITH EVENING MEAL 02/24/20 025 Discontinued(St op Taking at Discharge) allopurinol (Zyloprim) 300 MG tablet Take 1 tablet by mouth daily. 30 tablet 03/31/20 025 Discontinued(St op Taking at Discharge) aspirin 81 MG chewable tablet Chew 1 tablet daily. 30 tablet 03/31/20 025 Discontinued(St op Taking at Discharge) oxyCODONE (Roxicodone) 10 MG immediate release tablet Take 1 tablet by mouth every 4 hours as needed for severe pain (For pain unrelieved by other interventions ) for up to 3 days. 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 Cardiac volume overload 03/25/2025 Stage 3b chronic kidney disease 03/25/2025 Gout 03/25/2025 Chronic pain 03/25/2025 S/P CABG x 4 03/22/2025 Assessment & Plan (03/25/2025 8:24 AM EDT): - ASA, statin, beta daniel - Chest tubes out Assessment & Plan (03/24/2025 1:09 PM EDT): - ASA, statin, beta daniel - Monitor chest tube output Assessment & Plan (03/23/2025 3:01 PM EDT): - ASA, statin, beta daniel - Monitor chest tube output Assessment & Plan (03/23/2025 7:29 AM EDT): - ASA, statin, beta daniel as able - Monitor chest tube output Assessment & Plan (03/22/2025 4:37 PM EDT): 03/22/25 - CABGx4 and RLE EVH with Dr. Alonzo GANT (gastroesophageal reflux disease) Assessment & Plan (03/25/2025 8:24 AM EDT): - PPI Assessment & Plan (03/24/2025 1:09 PM EDT): - PPI Assessment & Plan (03/23/2025 3:01 PM EDT): - PPI Assessment & Plan (03/23/2025 7:29 AM EDT): - PPI Poorly 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 03/22/2025 Assessment & Plan (03/25/2025 8:24 AM EDT): - Endocrine following, appreciate assistance. Now on basal-bolus regimen Hemoglobin A1c Date Value Ref Range Status 02/17/2025 7.2 (H) <5.7 % Final Assessment & Plan (03/24/2025 1:09 PM EDT): - Continue Insulin gtt until eating more, will likely need basal-bolus regimen - On tramadol and gabapentin at home for neuropathy - will restart gabapentin after extubated - Endocrine consult 03/24 Hemoglobin A1c Date Value Ref Range Status 02/17/2025 7.2 (H) <5.7 % Final Assessment & Plan (03/23/2025 3:01 PM EDT): - Continue Insulin gtt until eating more, will likely need basal-bolus regimen - will consider endo consult if glycemic control is difficult - On tramadol and gabapentin at home for neuropathy - will restart gabapentin after extubated Hemoglobin A1c Date Value Ref Range Status 02/17/2025 7.2 (H) <5.7 % Final Assessment & Plan (03/23/2025 7:29 AM EDT): - Continue Insulin gtt - On 30u insulin TID at home, will consider endo consult if glycemic control is difficult - On tramadol and gabapentin at home for neuropathy - will restart gabapentin after extubated Hemoglobin A1c Date Value Ref Range Status 02/17/2025 7.2 (H) <5.7 % Final Postoperative pain 03/22/2025 Assessment & Plan (03/25/2025 8:24 AM EDT): - Multimodal pain control - Pain Team consulted for IV ERP ANALYST - Scheduled tylenol, robaxin, gabapentin - 03/25 - discontinue IV ERP ANALYST, Pain to provide PO recommendations Assessment & Plan (03/24/2025 1:09 PM EDT): - Multimodal pain control - Pain Team consulted for IV ERP ANALYST - Restart home gabapentin when appropriate Assessment & Plan (03/23/2025 3:01 PM EDT): - Multimodal pain control - Pain Team consulted for IV ERP ANALYST - Restart home gabapentin when appropriate Assessment & Plan (03/23/2025 7:29 AM EDT): - Multimodal pain control - Restart home gabapentin when appropriate CAD (coronary artery disease) 02/17/2025 Assessment & Plan (03/25/2025 8:24 AM EDT): - s/p 4vCABG on 03/[address] Rosado Assessment & Plan (03/24/2025 1:09 PM EDT): - s/p 4vCABG on 03/[address] Rosado Assessment & Plan (03/23/2025 3:01 PM EDT): - s/p 4vCABG on 03/[address] Rosado Assessment & Plan (03/23/2025 7:29 AM EDT): - s/p 4vCABG on 03/[address] Alonzo OWENS (hyperlipidemia) 02/17/2025 Assessment & Plan (03/25/2025 8:24 AM EDT): - Statin Assessment & Plan (03/24/2025 1:09 PM EDT): - Statin Assessment & Plan (03/23/2025 3:01 PM EDT): - Statin Assessment & Plan (03/23/2025 7:29 AM EDT): - Statin Obesity (BMI 30-39.9) 02/17/2025 Hypertension 01/14/2022 Assessment & Plan (03/25/2025 8:24 AM EDT): - SBP goal < 140 - Restart home meds as able Assessment & Plan (03/24/2025 1:09 PM EDT): - SBP goal < 140 - Restart home meds as able Assessment & Plan (03/23/2025 3:01 PM EDT): - SBP goal < 140 - Restart home meds as able Assessment & Plan (03/23/2025 7:29 AM EDT): - SBP goal < 140 - Restart home meds as able Microalbuminuria 01/14/2022 Type 2 diabetes mellitus wit h stage 2 chronic kidney disease, with long-term current use of insulin 01/14/2022 Resolved Problems Problem Noted Date Diagnosed Date Resolved Date Acute blood loss anemia 03/25/2025 06/2 02/2025 Thrombocytopenia 03/25/2025 03/30/2025 Hypocalcemia 03/25/2025 03/30/2025 Hypophosphatemia 03/25/2025 03/30/2025 Hypomagnesemia 03/25/2025 03/30/2025 Transient hyperglycemia post procedure 03/25/2025 03/30/2025 Leukocytosis 03/25/2025 03/30/2025 CAD, multiple vessel 03/22/2025 025 On mechanically assisted ventilation 03/22/2025 03/24/2025 Assessment & Plan (03/23/2025 3:01 PM EDT): - Wean to extubate, fast track Assessment & Plan (03/23/2025 7:29 AM EDT): - Wean to extubate, fast track CKD (chronic kidney disease) stage 2, GFR 60-89 ml/min 01/14/2022 03/25/2025 Assessment & Plan (03/25/2025 8:24 AM EDT): - Monitor per protocol. Creatinine, Plasma Date Value Ref Range Status 03/25/2025 1.04 0.70 - 1.20 mg/dL Final 03/24/2025 1.13 0.70 - 1.20 mg/dL Final 03/23/2025 1.09 0.70 - 1.20 mg/dL Final Assessment & Plan (03/24/2025 1:09 PM EDT): - Monitor per protocol. Creatinine, Plasma Date Value Ref Range Status 03/24/2025 1.13 0.70 - 1.20 mg/dL Final 03/23/2025 1.09 0.70 - 1.20 mg/dL Final 03/22/2025 1.19 0.70 - 1.20 mg/dL Final Assessment & Plan (03/23/2025 3:01 PM EDT): - Monitor per protocol. Creatinine, Plasma Date Value Ref Range Status 03/23/2025 1.09 0.70 - 1.20 mg/dL Final 03/22/2025 1.19 0.70 - 1.20 mg/dL Final 03/22/2025 1.29 (H) 0.70 - 1.20 mg/dL Final Assessment & Plan (03/23/2025 7:29 AM EDT): - Monitor per protocol. Creatinine, Plasma Date Value Ref Range Status 03/22/2025 1.29 (H) 0.70 - 1.20 mg/dL Final 03/21/2025 1.35 (H) 0.70 - 1.20 mg/dL Final 02/17/2025 1.46 (H) 0.70 - 1.20 mg/dL Final Encounters Date Type Department Care Team Description 04/04/2025 Telephone [facility] [address] [place] [id number] Mikayla Leung 03/30/2025 Travel 03/28/2025 Travel 03/27/2025 Travel 03/26/2025 Travel 03/25/2025 Travel 03/24/2025 Travel 03/23/2025 Travel 03/22/2025 7:45 AM EDT - 03/22/2025 5:00 PM EDT Surgery [facility] OPERATING ROOM [address] [place] [address] Musa Rosado MD CABG, 2 OR MORE VESSELS [87455 (CPT )] 03/22/2025 7:39 AM EDT Anesthesia Event [facility] RO[facility] [address] [place] [id number] Nati Aranda MD Short, [place] A 03/22/2025 5:35 AM EDT - 03/30/2025 11:38 AM EDT Hospital Encounter [facility] [address] [place] [address] Musa Rosado MD CAD, multiple vessel (Primary Dx); S/P CABG x 4 Discharge Disposition: Home or Self Care 03/22/2025 Travel 03/21/2025 1:23 PM EDT - 03/21/2025 11:59 PM EDT Hospital Encounter [facility] Radiology [address], [address] [place] [address] Coronary artery disease due to calcified coronary lesion Discharge Disposition: Home or Self Care 03/21/2025 1:00 PM EDT Office Visit [facility] Cardiothoracic [address], [address] [place] [address] Musa Rosado MD Coronary artery disease involving [place] heart without angina pectoris, unspecified vessel or lesion type (Primary Dx); Type 2 diabetes mellitus with stage 2 chronic kidney disease, with long-term current use of insulin ([facility]); CKD (chronic kidney disease) stage 2, GFR 60-89 ml/min; Obesity (BMI 30-39.9) 03/21/2025 Travel 03/15/2025 11:30 AM EDT Pre-Admission Testing [facility] Pre-op Clinic [address] [place] [address] 03/15/2025 Travel 03/14/2025 11:40 AM EDT Office Visit [facility] Nephrology, Bone & Mineral Metabolism [address], [address] [place] [address] Sonia Medley MD Stage 3 chronic kidney disease, unspecified whether stage 3a or 3b CKD ([facility]) (Primary Dx) 03/14/2025 Travel 03/10/2025 Telephone [facility] Nephrology, Bone & Mineral Metabolism [address], [address] [place] [address] Zaman Russel Sarahy 02/17/2025 11:40 AM EDT Consult [facility] Cardiothoracic [address], [address] [place] [id number] Musa Rosado MD Coronary artery disease due to calcified coronary lesion (Primary Dx) 02/17/2025 Orders Only [facility] Cardiothoracic [address] [place] [address], [address] [place] [address] Musa Rosado MD Coronary artery disease involving [place] heart without angina pectoris, unspecified vessel or lesion type (Primary Dx) 02/17/2025 Travel from Last 3 Months Immunizations Immunization Administration Dates Next Due Hep A, Adult 09/22/2018 Yordan COVID-19 Vaccine (Blue Cap) 18+ 03/22/20 21 Family History Medical History Relation Name Comments Cancer Father Lung cancer Father Diabetes Mother Diabetes type II Mother Hypertension Mother Stroke Mother Anesthesia problems Neg Hx Malig Hyperthermia Neg Hx Relation Name Status Comments Father Mother Alive Social History Tobacco Use Types Packs/Day Years Used Date Smoking Tobacco: Never Passive Smoke Exposure: Never Smokeless Tobacco: Never Tobacco Cessation:Counseling Given: Not Answered Alcohol Use Standard Drinks/Week Comments Never 0 [...] any time in the past 12 m [facility], were you homeless or living in a chcf (including now)? No 03/23/2025 Utilities Answer Date Recorded In the past 12 months has [employer], gas, oil, or water company threatened to shut off services in your home? No 03/23/2025 PHQ-2A Answer Date Recorded Depression Risk 0 03/21/2025 Sex and Gender Information Value Date Recorded Sex Assigned at Not on file Legal Sex Male 8:07 PM EDT Gender Identity Not on file Sexual Orientation Not on file Last Filed Vital Signs Vital Sign Reading [...] Mass Index 30.83 03/22/2025 6:17 AM EDT Plan of Treatment Upcoming Encounters Date Type Department Care Team (Late st Contact Info) Description 04/14/2025 3:40 PM EDT Office Visit [facility] [address], [facility] [address] [place] [address] Musa Rosado MD [address] [facility] [address] [place] [address] 06/13/2025 11:40 AM EDT Office Visit [facility] Neph[facility] Bone [facility] Mineral Metabolism [address] [facility] [address], [address] [place] [address] Sonia Medley MD [address] [facility] [address] [place] [address] Health Maintenance Due Date Last Done Comments [facility]-HIV Screening 1982 [facility]-Hepatitis C Screening 1982 [facility]-Medicare Annual Wellness (AWV) 1982 [facility]-/Child/Adol SDOH Screenings 1982 Diabetes: Dental Exam 01/23/1992 [facility]-Varicella Vaccines (1 of 2 - 13+ 2-dose series) 1995 HPV Vaccines (1 - Male 3-dose series) 1997 [facility]-DTaP,Tdap,and Td Vaccines (1 - Tdap) 2001 [facility]-Hepatitis B Vaccines (1 of 3 - 19+ 3-dose series) 2001 [facility]-Pneumococcal Vaccine: Pediatrics (0 to 5 Years) and At-Risk Patients (6 to 49 Years) (1 of 2 - PCV) 2001 [id number] Vaccine (2 - season) 2024 03/22/2021 [facility]-Diabetes: Hemoglobin A1C 05/19/2025 02/17/2025 [facility]-Influenza Vaccine (#1) 2025 [facility]- SDOH Screenings 09/22/2025 [facility]-Adult SDOH Screenings 09/22/2025 03/23/2025 [facility]-Depression Screening 03/21/2026 03/21/2025, 04/05 [facility]-Zoster Vaccines (1 of 2) 01/23/2032 [facility]-Hepatitis A Vaccines Aged Out 09/22/2018 No longer eligible based on patient's age to complete this topic [facility]-Obesity Intervention Completed 025, 02/17/2025, 02/17/2025, Additional history exists [facility]-HIB Vaccines Aged Out No longer e ligible based on patient's age to complete this topic [facility]-IPV Vaccines Aged Out No longer e ligible based on patient's age to complete this topic [facility]-Rotavirus Vaccines Aged Out No lo nger eligible based on patient's age to complete this topic Goals Goal Patient Goal Type Associated Problems Recent Progress Patient-Stated? 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 Syed, [employer] Procedures Procedure Name Priority Date/Time Associated Diagnosis Comments POCT GLUCOSE METER UNSOLICITED RESULTS Routine 03/30/2025 8:32 AM EDT XR CHEST 2 VIEWS Routine 03/30/2025 6:47 AM EDT BASIC METABOLIC PANEL, PLASMA Routine 03/30/2025 3:47 AM EDT CBC W/O DIFFERENTIAL Routine 03/30/2025 3:47 AM EDT POCT GLUCOSE [...] PEP THERAPY Routine 03/28/2025 6:00 AM EDT MAGNESIUM, PLASMA Routine 03/28/2025 4:3 5 AM EDT COMPREHENSIVE METABOLIC PANEL, PLASMA Routine 03/28/2025 4:35 AM EDT CBC W/O DIFFERENTIAL Routine 03/28/2025 4:35 AM EDT PEP THERAPY [...] PEP THERAPY Routine 03/27/2025 6:00 AM EDT MAGNESIUM, PLASMA Routine 03/27/2025 5:0 2 AM EDT COMPREHENSIVE METABOLIC PANEL, PLASMA Routine 03/27/2025 5:02 AM EDT CBC W/O DIFFERENTIAL Routine 03/27/2025 5:02 AM EDT XR CHEST [...] 1 VIEW Routine 03/26/2025 5:53 AM EDT LIPID PROFILE, PLASMA Routine 03/26/2025 3:50 AM EDT MAGNESIUM, PLASMA Routine 03/26/2025 3:5 0 AM EDT COMPREHENSIVE METABOLIC PANEL, PLASMA Routine 03/26/2025 3:50 AM EDT CBC W/O DIFFERENTIAL Routine 03/26/2025 3:50 AM EDT PEP THERAPY [...] PEP THERAPY Routine 03/25/2025 6:00 AM EDT PHOSPHORUS, PLASMA Routine 03/25/2025 4: 07 AM EDT MAGNESIUM, PLASMA Routine 03/25/2025 4:0 7 AM EDT CBC W/O DIFFERENTIAL Routine 03/25/2025 4:07 AM EDT BASIC METABOLIC PANEL, PLASMA Routine [...] UNSOLICITED RESULTS Routine 03/24/2025 11:44 AM EDT OK CRITICAL CARE, E/M 30-74 MINUTES Routine 03/24/2025 [...] PANEL, ARTERIAL Routine 03/24/2025 12:08 AM EDT PHOSPHORUS, PLASMA Routine 03/24/2025 12 :07 AM EDT MAGNESIUM, PLASMA Routine 03/24/2025 12: 07 AM EDT CBC W/O DIFFERENTIAL Routine 03/24/2025 12:07 AM EDT BASIC METABOLIC PANEL, PLASMA Routine [...] UNSOLICITED RESULTS Routine 03/23/2025 1:57 PM EDT OK CRITICAL CARE, E/M 30-74 MINUTES Routine 03/23/2025 [...] UNSOLICITED RESULTS Routine 03/23/2025 3:59 AM EDT PHOSPHORUS, PLASMA Routine 03/23/2025 3: 56 AM EDT MAGNESIUM, PLASMA Routine 03/23/2025 3:5 6 AM EDT BASIC METABOLIC PANEL, PLASMA Routine 03/23/2025 3:56 AM EDT BLOOD GAS PANEL, ARTERIAL Routine 03/23/2025 3:56 AM EDT POTASSIUM, PLASMA Timed 03/23/2025 3:5 6 AM EDT BLOOD GAS PANEL WITH OXIMETRY, [...] PANEL, ARTERIAL Timed 03/22/2025 8:17 PM EDT PHOSPHORUS, PLASMA Routine 03/22/2025 8: 14 PM EDT POTASSIUM, PLASMA Timed 03/22/2025 8:1 4 PM EDT HEMATOCRIT, BLOOD Timed 03/22/2025 8:1 4 PM EDT HEMOGLOBIN Timed 03/22/2025 8:14 PM EDT OXYGEN THERAPY Routine 03/22/2025 8:00 PM EDT OXYGEN THERAPY Routine 03/22/2025 6:22 PM EDT OXYGEN THERAPY Routine 03/22/2025 6:22 PM EDT PEP THERAPY Routine 03/22/2025 6:00 PM EDT BLOOD GAS PANEL, ARTERIAL STAT 03/22/2025 5:44 PM EDT XR CHEST 1 VIEW STAT 03/22/2025 4:46 PM EDT OK CRITICAL CARE, E/M 30-74 MINUTES Routine 03/22/2025 4:38 PM EDT CAD, multiple vessel END TIDAL CO2 MONITORING Routine 03/22/2025 4:31 PM EDT VENTILATOR - ADULT Routine 03/22/2025 4: 31 PM EDT ECG ADULT STAT 03/22/2025 4:10 PM EDT BLOOD GAS PANEL, ARTERIAL Routine 03/22/2025 3:52 PM EDT APTT STAT 03/22/2025 3:52 PM EDT PROTHROMBIN TIME(PT) / INR STAT 03/22/2025 3:52 PM EDT PHOSPHORUS, PLASMA STAT 03/22/2025 3: 52 PM EDT MAGNESIUM, PLASMA STAT 03/22/2025 3:5 2 PM EDT BASIC METABOLIC PANEL, PLASMA STAT 03/22/2025 3:52 PM EDT CBC W/O DIFFERENTIAL STAT 03/22/2025 3:52 PM EDT ABENA AURIS SURVEILLANCE BY PCR Routine 03/22/2025 3:52 PM EDT MULTI DRUG RESISTANCE TEST Routine 03/22/2025 3:52 PM EDT PEP THERAPY Routine [...] UNSOLICITED RESULTS Routine 03/22/2025 10:04 AM EDT PB ANESTHESIA NON-TIMED PROCEDURE PLACEHOLDER Routine 03/22/2025 9:51 AM EDT OK INSERT/PLACE FLOW DIRECT CATH Routine 03/22/2025 8:47 AM EDT ANESTHESIA ULTRASOUND GUIDED Routine 03/22/2025 8:47 AM EDT PB ANESTHESIA NON-TIMED PROCEDURE PLACEHOLDER Routine 03/22/2025 8:47 AM EDT OK AN CENTRAL LINE DOUBLE LUMEN Routine 03/22/2025 8:47 AM EDT PB ANESTHESIA NON-TIMED PROCEDURE PLACEHOLDER Routine 03/22/2025 8:47 AM EDT PB ANESTHESIA PLACEHOLDER Routine 03/22/2025 8:03 AM EDT OK AN ELECTIVE ENDOTRACHEAL AIRWAY Routine 03/22/2025 8:03 AM EDT POCT ARTERIAL BLOOD GAS GEM UNSOLICITED RESULTS Routine 03/22/2025 8:01 AM EDT POCT ACT UNSOLICITED RESULTS Routine 03/22/2025 7:57 AM EDT OK CABG, VEIN, THREE 03/22/2025 7:26 AM EDT Coronary artery disease due to calcified coronary lesion CKD (chronic kidney disease) stage 2, GFR 60-89 ml/min 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 ([facility]) Obesity (BMI 30-39.9) APTT Routine 03/22/2025 6:32 AM EDT PROTHROMBIN TIME(PT) / INR STAT 03/22/2025 6:32 AM EDT COMPREHENSIVE METABOLIC PANEL, PLASMA Routine 03/22/2025 6:32 AM EDT CBC W/O DIFFERENTIAL STAT 03/22/2025 6:32 AM EDT POCT GLUCOSE METER UNSOLICITED RESULTS Routine 03/22/2025 6:31 AM EDT PREPARE RBC Routine 03/22/2025 6:01 AM EDT XR CHEST 2 VIEWS Routine 03/21/2025 1:29 PM EDT Coronary artery disease due to calcified coronary lesion PHOSPHORUS, PLASMA Routine 03/21/2025 1: 19 PM EDT Stage 3 chronic kidney disease, unspecified whether stage 3a or 3b CKD ([facility]) CBC WITH AUTO DIFFERENTIAL Routine 03/21/2025 1:19 PM EDT Coronary artery disease due to calcified coronary lesion COMPREHENSIVE METABOLIC PANEL, PLASMA Routine 03/21/2025 1:19 PM EDT Coronary artery disease due to calcified coronary lesion PROTHROMBIN TIME(PT) / INR Routine 03/21/2025 1:19 PM EDT Coronary artery disease due to calcified coronary lesion APTT Routine 03/21/2025 1:19 PM EDT Coronary artery disease due to calcified coronary lesion TYPE AND SCREEN Routine 03/21/2025 1:19 PM EDT Coronary artery disease due to calcified coronary lesion PROTEIN, URINE, RANDOM WITH CREATININE Routine 03/21/2025 1:15 PM EDT Stage 3 chronic kidney disease, unspecified whether stage 3a or 3b CKD (CMS/HCC) URINALYSIS WITH REFLEX MICROSCOPIC Routine 03/21/2025 1:15 PM EDT Stage 3 chronic kidney disease, unspecified whether stage 3a or 3b CKD (CMS/HCC) COMPREHENSIVE METABOLIC PANEL, PLASMA Routine 02/17/2025 1:31 PM EDT Coronary artery disease involving [place] heart without angina pectoris, unspecified vessel or lesion type CBC W/O DIFFERENTIAL Routine 02/17/2025 1:31 PM EDT Coronary artery disease involving [place] heart without angina pectoris, unspecified vessel or lesion type PROTHROMBIN TIME(PT) / INR Routine 02/17/2025 1:31 PM EDT Coronary artery disease involving [place] heart without angina pectoris, unspecified vessel or lesion type APTT Routine 02/17/2025 1:31 PM EDT Coronary artery disease involving [place] heart without angina pectoris, unspecified vessel or lesion type HEMOGLOBIN A1C Routine 02/17/2025 1:31 PM EDT Coronary artery disease involving [place] heart without angina pectoris, unspecified vessel or lesion type from Last 3 Months Results * (ABNORMAL) POCT glucose meter (03/30/2025 8:32 AM EDT) Only the most recent of45 resultswithin the time period is included. [facility] POCT Glucose 176(H) 74 - 99 mg/dL 03/30/2025 8:34 AM EDT [facility] Comment:Accuracy of a glucos e result [...] Comment 03/30/2025 8:34 AM EDT [facility] Loading Machine Operator ID Katlin Cheung 03/30/2025 8:34 AM EDT HEALTHCARE LAB Device ID [id number] 03/30/2025 8:34 AM EDT HEALTHCARE LAB Specimen Type POC Capillary 03/30/2025 8:34 AM EDT HEALTHCARE LAB Blood Capillary blood specimen / Unknown 03/30/2025 8:32 AM EDT 03/30/2025 8:34 AM EDT us Musa Rosado MD LAB POINT OF CARE TE ST DOCKED DEVICE UNSOLICITED RESULTS Final Result [facility] [address] [place] [address] * XR Chest 2 Views (03/30/2025 6:47 AM EDT) Only the most recent of3 resultswithin the time period is included. Anatomical Region Laterality Modality Chest Computed Radiogr aphy Impressions 03/30/2025 9:29 AM EDT Stable exam. CRITICAL RESULT: No. COMMUNICATION: Per this written report Drafted by Dmitri Coffman MD on 03/30/2025 9:28 AM Final report signed by Dmitri Coffman MD on 03/30/2025 9:29 AM Narrative 03/30/2025 9:29 AM EDT CLINICAL INDICATION: eval lung diggs TECHNIQUE: XR CHEST 2 VIEWS COMPARISON: March 28, 2025 FINDINGS: Perihilar and basal airspace disease and/or atelectasis, similar to comparison. Mediastinal and cardiac contours are stable. Procedure Note Dmitri Coffman MD - 03/30/2025 CLINICAL INDICATION: eval lung diggs TECHNIQUE: XR CHEST 2 VIEWS COMPARISON: March 28, 2025 FINDINGS: Perihilar and basal airspace disease and/or atelectasis, similar tocomparison. Mediastinal and cardiac contours are stable. IMPRESSION: Stable exam. CRITICAL RESULT: No. COMMUNICATION: Per this written report Drafted by Dmitri Coffman MD on 03/30/2025 9:28 AM Final report signed by Dmitri Coffman MD on 03/30/2025 9:29 AM us Ephraim Hicks [employer] IMG XR PROCEDURES Final Resu lt * (ABNORMAL) CBC W/O Differential (03/30/2025 3:47 AM EDT) Only the most recent of10 resultswithin the time period is included. WBC Count 7.54 3.70 - 10.30 10*3/uL LAB HEMATOLOGY METHOD 03/30/2025 4:58 AM EDT [facility] RBC Count 3.01(L) 4.60 - 6.10 10*6/uL LAB HEMATOLOGY METHOD 03/30/2025 4:58 AM EDT [facility] HGB 9.0(L) 13.7 - 17.5 g/dL LAB HEMATOLOGY METHOD 03/30/2025 4:58 AM EDT [facility] HCT 27.9(L) 40.0 - 51.0 % LAB HEMATOLOGY METHOD 03/30/2025 4:58 AM EDT [facility] Platelet Count 286 155 - 369 10*3/uL LAB HEMATOLOGY METHOD 03/30/2025 4:58 AM EDT [facility] MCV 93 79 - 98 fL LAB HEMATOLOGY METHOD 03/30/2025 4:58 AM EDT [facility] MCH 29.9 26.0 - 32.0 pg LAB HEMATOLOGY METHOD 03/30/2025 4:58 AM EDT [facility] MCHC 32.3 30.7 - 35.5 g/dL LAB HEMATOLOGY METHOD 03/30/2025 4:58 AM EDT [facility] RDW 14.3 11.5 - 14.5 % LAB HEMATOLOGY METHOD 03/30/2025 4:58 AM EDT [facility] MPV 10.7 8.8 - 12.5 fL LAB HEMATOLOGY METHOD 03/30/2025 4:58 AM EDT [facility] nRBC 0.4(H) <=0.0 per 100 WBCs LAB HEMATOLOGY METHOD 03/30/2025 4:58 AM EDT [facility] Blood Venous blood specimen / Unknown Venipuncture / Unknown 03/30/2025 3:47 AM EDT 03/30/2025 4:51 AM EDT us Ephraim Hicks APRN LAB BLOOD ORDERABLES Final R esult [facility] [address] [place] [address] * (ABNORMAL) Basic Metabolic Panel, Plasma (03/30/2025 3:47 AM EDT) Only the most recent of5 resultswithin the time period is included. Pathologist [facility] Glucose, Plasma 172(H) 74 - 99 mg/dL 03/30/2025 5:23 AM EDT [facility] BUN, Plasma 28(H) 7 - 21 mg/dL 03/30/2025 5:23 AM EDT [facility] Creatinine, Plasma 1.18 0.70 - 1.20 mg/dL 03/30/2025 5:23 AM EDT [facility] BUN/Creatinine Ratio 24 03/30/2025 5:23 AM EDT [facility] Sodium, Plasma 138 136 - 145 mmol/L 03/30/2025 5:23 AM EDT [facility] Potassium, Plasma 4.1 3.6 - 4.9 mmol/L 03/30/2025 5:23 AM EDT [facility] Chloride, Plasma 103 97 - 107 mmol/L 03/30/2025 5:23 AM EDT [facility] CO2, Plasma 23 22 - 29 mmol/L 03/30/2025 5:23 AM EDT [facility] Anion Gap 12 6 - 16 mmol/L 03/30/2025 5:23 AM EDT [facility] Total Calcium, Plasma 8.9 8.9 - 10.2 mg/dL 03/30/2025 5:23 AM EDT [facility] eGFRcr 78.5 mL/min/1.7 3m*2 03/30/2025 5:23 AM EDT [facility] Comment:Reported eGFRcr in m L/min/1.73m2 is based the CKD-EPI 2020 equation that does not use a race coefficient. Blood Venous blood specimen / Unknown Venipuncture / Unknown 03/30/2025 3:47 AM EDT 03/30/2025 4:48 AM EDT us Ephraim Hicks [employer] LAB BLOOD ORDERABLES Final R esult Performing Organization Address City/[facility]/ZIP Co de Phone Number [facility] [address] [place] [address] * Magnesium (03/28/2025 4:35 AM EDT) Only the most recent of7 resultswithin the time period is included. Magnesium, Plasma 1.9 1.9 - 2.4 mg/dL 03/28/2025 5:18 AM EDT [facility] Blood Venous blood specimen / Unknown Venipuncture / Unknown 03/28/2025 4:35 AM EDT 03/28/2025 4:42 AM EDT us La Nena March [employer] LAB BLOOD ORDERABLES Final Res ult Performing Organization Address [facility] Co de Phone Number [facility] [address] [place] [address] * (ABNORMAL) Comprehensive metabolic panel (03/28/2025 4:35 AM EDT) Only the most recent of6 resultswithin the time period is included. Glucose, Plasma 196(H) 74 - 99 mg/dL 03/28/2025 5:18 AM EDT [facility] BUN, Plasma 20 7 - 21 mg/dL 03/28/2025 5:18 AM EDT [facility] Creatinine, Plasma 1.13 0.70 - 1.20 mg/dL 03/28/2025 5:18 AM EDT [facility] BUN/Creatinine Ratio 18 03/28/2025 5:18 AM EDT [facility] Sodium, Plasma 134(L) 136 - 145 mmol/L 03/28/2025 5:18 AM EDT [facility] Potassium, Plasma 4.2 3.6 - 4.9 mmol/L 03/28/2025 5:18 AM EDT [facility] Chloride, Plasma 102 97 - 107 mmol/L 03/28/2025 5:18 AM EDT [facility] CO2, Plasma 22 22 - 29 mmol/L 03/28/2025 5:18 AM EDT [facility] Anion Gap 10 6 - 16 mmol/L 03/28/2025 5:18 AM EDT [facility] Total Calcium, Plasma 9.1 8.9 - 10.2 mg/dL 03/28/2025 5:18 AM EDT [facility] Total Protein 6.3 6.3 - 7.9 g/dL 03/28/2025 5:18 AM EDT [facility] Albumin, Plasma 3.6 3.5 - 5.2 g/dL 03/28/2025 5:18 AM EDT [facility] AST, Plasma 32 10 - 50 U/L 03/28/2025 5:18 AM EDT [facility] ALT, Plasma 35 10 - 50 U/L 03/28/2025 5:18 AM EDT [facility] Alkaline Phosphatase, Plasma 67 40 - 115 U/L 03/28/2025 5:18 AM EDT [facility] Total Bilirubin, Plasma 0.8 0.2 - 1.1 mg/dL 03/28/2025 5:18 AM EDT [facility] eGFRcr 82.7 mL/min/1.7 3m*2 03/28/2025 5:18 AM EDT [facility] Comment:Reported eGFRcr in m L/min/1.73m2 is based the CKD-EPI 2020 equation that does not use a race coefficient. Blood Venous blood specimen / Unknown Venipuncture / Unknown 03/28/2025 4:35 AM EDT 03/28/2025 4:42 AM EDT us La Nena March [employer] LAB BLOOD ORDERABLES Final Res ult [facility] [address] [place] [address] * XR Chest 1 View (03/27/2025 4:58 AM EDT) Only the most recent of6 resultswithin the time period is included. Anatomical Region Laterality Modality Chest Digital Radiogra phy Impressions 03/27/2025 10:17 AM EDT No significant interval change. CRITICAL RESULT: No. COMMUNICATION: Per this written report. Drafted by Milli Elkins MD on 03/27/2025 10:16 AM Final report signed by Milli Elkins MD on 03/27/2025 10:17 AM Narrative 03/27/2025 10:17 AM EDT CLINICAL INDICATION: evalaute lung diggs TECHNIQUE: Single AP view of chest. COMPARISON: One day prior FINDINGS: Intact median sternotomy wires. The cardiomediastinal contours unchanged. No pneumothorax. Small bilateral pleural effusions. Mild pulmonary vascular congestion. Similar bibasal lung opacities may represent atelectasis and/or airspace disease. No new lung consolidation. Procedure Note Milli Elkins MD - 03/27/2025 CLINICAL INDICATION: evalaute lung diggs TECHNIQUE: Single AP view of chest. COMPARISON: [...] on 03/27/2025 10:17 AM La Nena March [employer] IM[facility] XR PROCEDURES Final Result * (ABNORMAL) Lipid panel (03/26/2025 3:50 AM EDT) Cholesterol, Plasma 76 <200 mg/dL 03/26/2025 4:55 AM EDT [facility] Comment: Cholesterol Reference Range (age >17 years): Desirable <200 mg/dL Borderline 200 to 239 mg/dL Undesirable >239 mg/dL HDL 22(L) >=40 mg/dL 03/26/2025 4:55 AM EDT [facility] Comment: HDL Cholesterol Reference Ranges (age >17 years): Female, acceptable > or = 50 mg/dL Male, acceptable > or = 40 mg/dL Triglycerides, Plasma 152(H) <150 mg/dL 03/26/2025 4:55 AM EDT [facility] Comment: Triglyceride Reference Range (age >17 years): Desirable: <150 mg/dL Borderline high: 150 to 199 mg/dL High: 200 to 499 mg/dL Very high: >499 mg/dL Increased risk of pancreatitis: >1000 mg/dL Cholesterol/HDL Ratio 3 03/26/2025 4:55 AM EDT [facility] LDL, Calculated 28 <100 mg/dL 4:55 AM EDT [facility] Comment: LDL Cholesterol Reference [...] 12 hours? No 03/26/2025 4:55 AM EDT [facility] Blood Venous blood specimen / Unknown Venipuncture / Unknown 03/26/2025 3:50 AM EDT 03/26/2025 4:26 AM EDT us La Nena March APRN LAB BLOOD ORDERABLES Final Res ult [facility] [address] [place] [address] * (ABNORMAL) Phosphorus, Plasma (03/25/2025 4:07 AM EDT) Only the most recent of6 resultswithin the time period is included. Phosphorus, Plasma 1.2(L) 2.5 - 4.5 mg/dL 03/25/2025 4:54 AM EDT [facility] Blood Venous blood specimen / Unknown Venipuncture / Unknown 03/25/2025 4:07 AM EDT 03/25/2025 4:20 AM EDT us Musa Rosado MD LAB BLOOD ORDERABLES Final R esult [facility] [address] [place] [address] * [place] CRITICAL CARE, E/M 30-74 MINUTES (03/24/2025 11:33 [...] IN CLINIC/BEDSIDE ORDERABLES Final Result * (ABNORMAL) Blood gas, arterial (03/24/2025 12:08 AM EDT) Only the most recent of7 resultswithin the time period is included. pH, Arterial 7.42 7.35 - 7.45 LAB HEMATOLOGY METHOD 03/24/2025 12:18 AM EDT [facility] pCO2, Arterial 43 32 - 45 mmHg LAB HEMATOLOGY METHOD 03/24/2025 12:18 AM EDT [facility] pO2, Arterial 58(LL) 83 - 108 mmHg LAB HEMATOLOGY METHOD 03/24/2025 12:18 AM EDT [facility] SO2, Measured, Arterial 90(L) 94 - 98 % LAB HEMATOLOGY METHOD 03/24/2025 12:18 AM EDT [facility] Base Excess, Arterial 2.9 -2.0 - 3.0 mmol/L LAB HEMATOLOGY METHOD 03/24/2025 12:18 AM EDT [facility] Bicarbonate, Calculated, Arterial 28(H) 22 - 26 mmol/L LAB HEMATOLOGY METHOD 03/24/2025 12:18 AM EDT [facility] Hematocrit, Whole Blood 26.5(L) 40.0 - 51.0 % LAB HEMATOLOGY METHOD 03/24/2025 12:18 AM EDT [facility] Sodium, Whole Blood 138 136 - 145 mmol/L LAB HEMATOLOGY METHOD 03/24/2025 12:18 AM EDT [facility] Potassium, Whole Blood 4.2 3.6 - 4.9 mmol/L LAB HEMATOLOGY METHOD 03/24/2025 12:18 AM EDT [facility] Chloride, Whole Blood 104 97 - 107 mmol/L LAB HEMATOLOGY METHOD 03/24/2025 12:18 AM EDT [facility] Glucose, Whole Blood 161(H) 74 - 99 mg/dL LAB HEMATOLOGY METHOD 03/24/2025 12:18 AM EDT [facility] Ionized Calcium, Whole Blood 4.6 4.6 - 5.1 mg/dL LAB HEMATOLOGY METHOD 03/24/2025 12:18 AM EDT [facility] Lactate, Arterial, Whole Blood 1.1 0.5 - 1.6 mmol/L LAB HEMATOLOGY METHOD 03/24/2025 12:18 AM EDT [facility] Blood Arterial blood specimen / Unknown Arterial Puncture / Unknown 03/24/2025 12:08 AM EDT 03/24/2025 12:14 AM EDT us Musa Rosado MD LAB BLOOD ORDERABLES Final R esult [facility] [address] [place] [address] * [place] CRITICAL CARE, E/M 30-74 MINUTES (03/23/2025 12:34 [...] CLINIC/BEDSIDE ORDERABLES Final Result * ECG Adult (03/23/2025 4:28 AM EDT) Only the most recent of3 resultswithin the time period is included. EKG DIAGNOSIS CLASS Abnormal MUSE ECG Ventricular Rate 77 BPM MUSE ECG Atrial Rate 77 BPM MUSE ECG OK Interval 150 ms MUSE ECG QRSD Interval 78 ms MUSE ECG QT Interval 366 ms MUSE ECG QTC Interval 414 ms MUSE ECG P Sher[place] 49 degrees MUSE ECG R Sher[place] -7 degrees MUSE ECG T Wave Sher[place] -4 degrees MUSE ECG Diagnosis Normal sinus rhythm MUSE ECG Diagnosis ST elevation, consider early repolarization , pericarditis, or injury MUSE ECG Diagnosis Nonspecific T wave abnormality MUSE ECG Diagnosis Need clinical information and correlation MUSE ECG Diagnosis MUSE ECG Diagnosis Confirmed by Jarett Steen ([id number]) on 03/23/2025 8:36:37 AM MUSE ECG 03/23/2025 4:28 AM EDT 03/23/2025 8:36 AM EDT us Musa Rosado MD ECG ORDERABLES Final Result MUSE ECG * Potassium, Plasma (03/23/2025 3:56 AM EDT) Only the most recent of3 resultswithin the time period is included. Potassium, Plasma 4.2 3.6 - 4.9 mmol/L 03/23/2025 4:40 AM EDT [facility] Blood Arterial blood specimen / Unknown Arterial Puncture / Unknown 03/23/2025 3:56 AM EDT 03/23/2025 4:12 AM EDT us Musa Rosado MD LAB BLOOD ORDERABLES Final R esult [facility] [address] [place] [address] * (ABNORMAL) Blood gas panel with oximetry, mixed venous (03/23/2025 3:53 AM EDT) pH, Mixed Venous 7.37 7.32 - 7.43 LAB HEMATOLOGY METHOD 03/23/2025 4:11 AM EDT [facility] pCO2, Mixed Venous 46 40 - 55 mmHg LAB HEMATOLOGY METHOD 03/23/2025 4:11 AM EDT [facility] pO2, Mixed Venous 34 25 - 40 mmHg LAB HEMATOLOGY METHOD 03/23/2025 4:11 AM EDT [facility] SO2, Measured, Mixed Venous 63(L) 65 - 80 % LAB HEMATOLOGY METHOD 03/23/2025 4:11 AM EDT [facility] Bicarbonate, Calculated, Mixed Venous 26 22 - 26 mmol/L LAB HEMATOLOGY METHOD 03/23/2025 4:11 AM EDT [facility] Base Excess, Mixed Venous 0.4 -2.0 - 3.0 mmol/L LAB HEMATOLOGY METHOD 03/23/2025 4:11 AM EDT [facility] Hematocrit, Whole Blood 30.3(L) 40.0 - 51.0 % LAB HEMATOLOGY METHOD 03/23/2025 4:11 AM EDT [facility] Sodium, Whole Blood 142 136 - 145 mmol/L LAB HEMATOLOGY METHOD 03/23/2025 4:11 AM EDT [facility] Potassium, Whole Blood 4.0 3.6 - 4.9 mmol/L LAB HEMATOLOGY METHOD 03/23/2025 4:11 AM EDT [facility] Chloride, Whole Blood 109(H) 97 - 107 mmol/L LAB HEMATOLOGY METHOD 03/23/2025 4:11 AM EDT [facility] Ionized Calcium, Whole Blood 4.4(L) 4.6 - 5.1 mg/dL LAB HEMATOLOGY METHOD 03/23/2025 4:11 AM EDT [facility] Glucose, Whole Blood 152(H) 74 - 99 mg/dL LAB HEMATOLOGY METHOD 03/23/2025 4:11 AM EDT [facility] Oxyhemoglobin, Mixed Venous, Whole Blood 61.7 40.0 - 70.0 % LAB HEMATOLOGY METHOD 03/23/2025 4:11 AM EDT [facility] Hemoglobin Reduced, Mixed Venous, Whole Blood 36.7 % LAB HEMATOLOGY METHOD 03/23/2025 4:11 AM EDT [facility] Total Hemoglobin, Mixed Venous, Whole Blood 9.9(L) 13.7 - 17.5 g/dL LAB HEMATOLOGY METHOD 03/23/2025 4:11 AM EDT [facility] Blood Mixed venous blood specimen / Unknown Venipuncture / Unknown 03/23/2025 3:53 AM EDT 03/23/2025 4:09 AM EDT Musa Rosado MD LAB BLOOD ORDERABLES Final R esult Performing Organization Address City/[facility]/ZIP Co de Phone Number [facility] [address] [place] [address] * (ABNORMAL) Hematocrit (03/23/2025 12:13 AM EDT) Only the most recent of2 resultswithin the time period is included. HCT 29.6(L) 40.0 - 51.0 % LAB HEMATOLOGY METHOD 03/23/2025 12:42 AM EDT [facility] Blood Arterial blood specimen / Unknown Arterial Puncture / Unknown 03/23/2025 12:13 AM EDT 03/23/2025 12:32 AM EDT Musa Rosado MD LAB BLOOD ORDERABLES Final R esult [facility] [address] [place] [address] * (ABNORMAL) Hemoglobin (03/22/2025 8:14 PM EDT) HGB 10.4(L) 13.7 - 17.5 g/dL LAB HEMATOLOGY METHOD 03/22/2025 8:35 PM EDT [facility] Blood Arterial blood specimen / Unknown Arterial Puncture / Unknown 03/22/2025 8:14 PM EDT 03/22/2025 8:28 PM EDT us Musa Rosado MD LAB BLOOD ORDERABLES Final R esult [facility] [address] [place] [address] * [place] CRITICAL CARE, E/M 30-74 MINUTES (03/22/2025 4:38 [...] MD IN CLINIC/BEDSIDE ORDERABLES Final Result * Abena auris Surveillance by PCR (03/22/2025 3:52 PM EDT) Abena auris PCR Result Not Detected Not Detected 03/23/2025 12:49 PM EDT [facility] Swab (Axilla and Groin) Non-blood Collection / Unknown 03/22/2025 3:52 PM EDT 03/22/2025 4:37 PM EDT Narrative [facility] - 03/23/2025 12:49 PM EDT This PCR assay was developed and its performance characteristics determined by [facility] as appropriate for clinical purposes. This assay has not been cleared or approved by the FDA, but is performed in a CLIA regulated laboratory that is qualified to perform high-complexity testing. Musa Rosado MD LAB MICROBIOLOGY - GENERAL O RDERABLES Final Result Performing Organization Address [facility] Co de Phone Number [facility] [address] [place] [address] * Multi Drug Resistance Test (03/22/2025 3:52 PM EDT) Culture No growth at day 1 03/24/2025 7:31 AM EDT [facility] Swab (Nares and Lisa Rectal) Non-blood Collection / Unknown 03/22/2025 3:52 PM EDT 03/22/2025 4:37 PM EDT Narrative [facility] - 03/24/2025 7:31 AM EDT This test was developed and its performance characteristics determined by the [facility]. Although the media is FDA-approved, it is not FDA-approved for all specimen types submitted. The FDA has determined that such clearance or approval is not necessary. This test is used for surveillance purposes. It should not be regarded as investigational or for research. The [facility] is certified under the Clinical Laboratory Improvement Amendments of 1988 (CLIA-88) as qualified to perform high complexity clinical laboratory testing. Musa Rosado MD LAB MICROBIOLOGY - GENERAL O RDERABLES Final Result Performing Organization Address [facility] de Phone Number [address] [address] * APTT (03/22/2025 3:52 PM EDT) Only the most recent of4 resultswithin the time period is included. aPTT 28 25 - 35 sec LAB COAGULATION METHOD 03/22/2025 5:08 PM EDT [facility] Blood Venous blood specimen / Unknown Venipuncture / Unknown 03/22/2025 3:52 PM EDT 03/22/2025 4:45 PM EDT Musa Rosado MD LAB BLOOD ORDERABLES Final R esult Performing Organization Address City/[facility] Co de Phone Number [facility] [address] [place] [address] * (ABNORMAL) Protime-INR (03/22/2025 3:52 PM EDT) Only the most recent of4 resultswithin the time period is included. Prothrombin Time 17.0(H) 12.0 - 14.3 sec LAB COAGULATION METHOD 03/22/2025 5:08 PM EDT [facility] INR 1.4(H) 0.9 - 1.1 LAB COAGULATION METHOD 03/22/2025 5:08 PM EDT [facility] Blood Venous blood specimen / Unknown Venipuncture / Unknown 03/22/2025 3:52 PM EDT 03/22/2025 4:45 PM EDT Narrative [facility] - 03/22/2025 5:08 PM EDT OPTIMAL INR RANGES FOR PATIENT ON ORAL ANTICOAGULANT THERAPY Prevention of venous thromboembolism INR 2.0 to 3.0 In patients with heart disease: Atrial fibrillation INR 2.0 to 3.0 Valvular heart disease INR 2.0 to 3.0 Tissue heart valves INR 2.0 to 3.0 Mechanical prosthetic valves INR 2.5 to 3.5 Prevention of recurrent [place] INR 2.5 to 3.5 us Musa Rosado MD LAB BLOOD ORDERABLES Final R esult [facility] [address] [place] [address] * (ABNORMAL) POCT arterial blood gas gem (03/22/2025 3:29 PM EDT) Only the most recent of11 resultswithin the time period is included. pH, Arterial 7.36 7.35 - 7.45 03/22/2025 3:41 PM EDT [facility] pCO2, Arterial 42 32 - 45 mm Hg 03/22/2025 3:41 PM EDT [facility] pO2, Arterial 150(H) 83 - 108 mm Hg 03/22/2025 3:41 PM EDT [facility] SO2, Arterial 98 94 - 98 % 03/22/2025 3:41 PM EDT [facility] Base Excess, Arterial -1.7 -2 - 3 mmol/L 03/22/2025 3:41 PM EDT [facility] HCO3, Arterial 23.7 22 - 26 mmol/L 03/22/2025 3:41 PM EDT [facility] Total Hemoglobin, Arterial, Whole Blood 11.2(L) 13.7 - 17.5 g/dL 03/22/2025 3:41 PM EDT [facility] Hematocrit, Arterial 34.0(L) 40 - 51.0 % 03/22/2025 3:41 PM EDT [facility] Sodium, Arterial 141 136 - 145 mmol/L 03/22/2025 3:41 PM EDT [facility] Potassium, Arterial 3.8 3.6 - 4.9 mmol/L 03/22/2025 3:41 PM EDT [facility] Chloride, Whole Blood 109(H) 97 - 107 mmol/L 03/22/2025 3:41 PM EDT [facility] Glucose, Arterial 192(H) 74 - 99 mg/dL 03/22/2025 3:41 PM EDT [facility] Ionized Calcium, Arterial 4.6 4.6 - 5.1 mg/dL 03/22/2025 3:41 PM T [facility] Lactate, Arterial 2.0(H) 0.5 - 1.6 mmol/L 03/22/2025 3:41 PM EDT [facility] Body Temperature 37.0 Celsius 03/22/2025 3:41 PM T [facility] pH, Temp Corrected, Arterial 7.36 7.35 - 7.45 03/22/2025 3:41 PM EDT [facility] pCO2, Temp Corrected, Arterial 42 32 - 45 mm Hg 03/22/2025 3:41 PM EDT [facility] pO2, Temp Corrected, Arterial 150(H) 83 - 108 mm Hg 03/22/2025 3:41 PM EDT [facility] Loading Machine Operator ID Ludin Aguiar 03/22/2025 3:41 PM EDT [facility] Blood, Arterial Whole blood specimen / Unknown 03/22/2025 3:29 PM EDT 03/22/2025 3:41 PM EDT Musa Rosado MD LAB POINT OF CARE TE ST DOCKED DEVICE UNSOLICITED RESULTS Final Result Performing Organization Address City/[facility]/ZIP Co de Phone Number [facility] [address] [place] [address] * QPLUS (03/22/2025 2:24 PM EDT) Clot [...] Seconds 03/22/2025 2:38 PM EDT HEALTHCARE LAB Loading Machine Operator ID Ludin Aguiar 03/22/2025 2:38 PM EDT HEALTHCARE LAB Device ID [id number] 03/22/2025 2:38 PM EDT [facility]ALTHCARE LAB Whole Blood 03/22/2025 2:24 PM EDT 03/22/2025 2:38 PM EDT us Musa Rosado MD LAB POINT OF CARE TE ST DOCKED DEVICE UNSOLICITED RESULTS Final Result Performing Organization Address City/[facility]/ZIP Co de Phone Number [facility] [address] [place] [address] * POCT ACT (03/22/2025 2:04 PM EDT) Only the most recent of8 resultswithin the time period is included. ACT+ (HIGH RANGE) 115 68 - 600 Seconds 03/22/2025 2:10 PM EDT HEALTHCARE LAB Loading Machine Operator ID Selene Cardona 03/22/2025 2:10 PM EDT [facility] ACT Device ID [id number] 03/22/2025 2:10 PM EDT [facility] Comment 03/22/2025 2:10 PM EDT [facility] Comment: ACT performed by [...] 2:04 PM EDT 03/22/2025 2:10 PM EDT us Musa Rosado MD LAB POINT OF CARE TE ST DOCKED DEVICE UNSOLICITED RESULTS Final Result Performing Organization Address City/State/[facility] Co de Phone Number [facility] [address] [facility] [address] [place] [address] * PB ANESTHESIA NON-TIMED PROCEDURE PLACEHOLDER (03/22/2025 9:51 AM EDT) BSA 2.31 m2 CAR DO NOT SEND Anatomical Region Laterality Modality Other Narrative 03/22/2025 9:51 AM EDT Nati Aranda MD 03/22/2025 6:28 PM Procedure Performed: CHERYL General Procedure Information Diagnostic Indications for CHERYL: assessment of ascending aorta, assessment of surgical repair, defect repair evaluation, hemodynamic monitoring Physician Requesting Echo: uMsa Rosado MD Location performed: [place] Modalities: 2D [...] ORDERABLES Edite d Result - Final * OK AN CENTRAL LINE DOUBLE LUMEN, PB ANESTHESIA NON-TIMED PROCEDURE PLACEHOLDER, ANESTHESIA ULTRASOUND GUIDED, OK INSERT/PLACE FLOW DIRECT CATH (03/22/2025 8:47 AM [...] Aranda MD ANESTHESIA ORDERABLES Final Result * OK AN ELECTIVE ENDOTRACHEAL AIRWAY, PB ANESTHESIA PLACEHOLDER [...] Aranda MD ANESTHESIA ORDERABLES Final Result * CBC and Differential (03/21/2025 1:19 PM EDT) WBC Count 6.31 3.70 - 10.30 10*3/uL LAB HEMATOLOGY METHOD 03/21/2025 3:03 PM EDT [facility] RBC Count 4.75 4.60 - 6.10 10*6/uL LAB HEMATOLOGY METHOD 03/21/2025 3:03 PM EDT [facility] HGB 14.2 13.7 - 17.5 g/dL LAB HEMATOLOGY METHOD 03/21/2025 3:03 PM EDT [facility] HCT 42.9 40.0 - 51.0 % LAB HEMATOLOGY METHOD 03/21/2025 3:03 PM EDT [facility] Platelet Count 214 155 - 369 10*3/uL LAB HEMATOLOGY METHOD 03/21/2025 3:03 PM EDT [facility] MCV 90 79 - 98 fL LAB HEMATOLOGY METHOD 03/21/2025 3:03 PM EDT [facility] MCH 29.9 26.0 - 32.0 pg LAB HEMATOLOGY METHOD 03/21/2025 3:03 PM EDT [facility] MCHC 33.1 30.7 - 35.5 g/dL LAB HEMATOLOGY METHOD 03/21/2025 3:03 PM EDT [facility] RDW 13.2 11.5 - 14.5 % LAB HEMATOLOGY METHOD 03/21/2025 3:03 PM EDT [facility] MPV 11.6 8.8 - 12.5 fL LAB HEMATOLOGY METHOD 03/21/2025 3:03 PM EDT [facility] nRBC 0.0 <=0.0 per 100 WBCs LAB HEMATOLOGY METHOD 03/21/2025 3:03 PM EDT [facility] Differential Type Automated LAB HEMATOLOGY METHOD 03/21/2025 3:03 PM EDT [facility] Neutrophils % 61 % LAB HEMATOLOGY METHOD 03/21/2025 3:03 PM EDT [facility] Lymphocytes % 29 % LAB HEMATOLOGY METHOD 03/21/2025 3:03 PM EDT [facility] Monocytes % 7 % LAB HEMATOLOGY METHOD 03/21/2025 3:03 PM EDT [facility] Eosinophils % 2 % LAB HEMATOLOGY METHOD 03/21/2025 3:03 PM EDT [facility] Basophils % 1 % LAB HEMATOLOGY METHOD 03/21/2025 3:03 PM EDT [facility] Immature Granulocytes % 0 % LAB HEMATOLOGY METHOD 03/21/2025 3:03 PM EDT [facility] Neutrophils Absolute 3.84 1.60 - 6.10 10*3/uL LAB HEMATOLOGY METHOD 03/21/2025 3:03 PM EDT [facility] Lymphocytes Absolute 1.81 1.20 - 3.90 10*3/uL LAB HEMATOLOGY METHOD 03/21/2025 3:03 PM EDT [facility] Monocytes Absolute 0.46 0.30 - 0.90 10*3/uL LAB HEMATOLOGY METHOD 03/21/2025 3:03 PM EDT [facility] Eosinophils Absolute 0.13 0.00 - 0.50 10*3/uL LAB HEMATOLOGY METHOD 03/21/2025 3:03 PM EDT [facility] Basophils Absolute 0.05 0.00 - 0.10 10*3/uL LAB HEMATOLOGY METHOD 03/21/2025 3:03 PM EDT [facility] Immature Granulocytes Absolute 0.02 0.00 - 0.06 10*3/uL LAB HEMATOLOGY METHOD 03/21/2025 3:03 PM EDT [facility] Blood Venous blood specimen / Unknown Venipuncture / Unknown 03/21/2025 1:19 PM EDT 03/21/2025 1:19 PM EDT Narrative [facility] - 03/21/2025 3:03 PM EDT Therapeutic decision making should be based on absolute values, rather than percentages. Zulay Syed APRN LAB BLOOD ORDERABLES Final R esult Performing Organization Address City/[facility]/ZIP Co de Phone Number [facility] [address] [place] [address] * Type and screen (03/21/2025 1:19 PM [...] ORDERABL ES Final Result Performing Organization Address City/[facility]/ZIP Co de Phone Number [facility] [address] [place] [address], [place] * Protein, Random, Urine with Creatinine (03/21/2025 1:15 PM EDT) Protein, Urine <6 mg/dL 03/21/2025 2:55 PM EDT [facility] Creatinine, Urine 77 mg/dL 03/21/2025 2:55 PM EDT [facility] Protein/Creatin ine Ratio 03/21/2025 2:55 PM EDT [facility] Urine Urine specimen obtained by clean catch procedure / Unknown Non-blood Collection / Unknown 03/21/2025 1:15 PM EDT 03/21/2025 1:15 PM EDT Sonia Medley MD LAB URINE ORDERABLES Fin al Result [facility] [address] [place] [address] * (ABNORMAL) Urinalysis with reflex microscopic (Culture NOT Included) (03/21/2025 1:15 PM EDT) Color, Urine Yellow LAB URINALYSIS - AUTOMATED METHOD 03/21/2025 2:42 PM EDT [facility] Clarity, Urine Clear LAB URINALYSIS - AUTOMATED METHOD 03/21/2025 2:42 PM EDT [facility] Spec Etta, Urine 1.023 1.005 - 1.030 LAB URINALYSIS - AUTOMATED METHOD 03/21/2025 2:42 PM EDT [facility] pH, Urine 7.0 5.0 - 8.0 LAB URINALYSIS - AUTOMATED METHOD 03/21/2025 2:42 PM EDT [facility] Protein, Urine Negative Negative mg/dL LAB URINALYSIS - AUTOMATED METHOD 03/21/2025 2:42 PM EDT [facility] Glucose, Urine >=1000(A) Negative mg/dL LAB URINALYSIS - AUTOMATED METHOD 03/21/2025 2:42 PM EDT [facility] Ketones, Urine Negative Negative mg/dL LAB URINALYSIS - AUTOMATED METHOD 03/21/2025 2:42 PM EDT [facility] Blood, Urine Negative Negative LAB URINALYSIS - AUTOMATED METHOD 03/21/2025 2:42 PM EDT [facility] Bilirubin, Urine Negative Negative LAB URINALYSIS - AUTOMATED METHOD 03/21/2025 2:42 PM EDT [facility] Urobilinogen, Urine 1.0 0.2 to 1.0 mg/dL LAB URINALYSIS - AUTOMATED METHOD 03/21/2025 2:42 PM EDT [facility] Leukocytes, Urine Negative Negative LAB URINALYSIS - AUTOMATED METHOD 03/21/2025 2:42 PM EDT [facility] Nitrite, Urine Negative Negative LAB URINALYSIS - AUTOMATED METHOD 03/21/2025 2:42 PM EDT [facility] Urine Urine specimen obtained by clean catch procedure / Unknown Non-blood Collection / Unknown 03/21/2025 1:15 PM EDT 03/21/2025 1:15 PM EDT Sonia Medley MD LAB URINE ORDERABLES Fin al Result Performing Organization Address City/State/[facility] Co de Phone Number [facility] [address] [place] [address] * (ABNORMAL) Hemoglobin A1c (02/17/2025 1:31 PM EDT) Hemoglobin A1c 7.2(H) <5.7 % 02/17/2025 4:41 PM EDT [facility] Blood Venous blood specimen / Unknown Venipuncture / Unknown 02/17/2025 1:31 PM EDT 02/17/2025 1:31 PM EDT Narrative [facility] - 02/17/2025 4:41 PM EDT HA1C Interpretive Data: Diagnosis of Diabetes: Diabetic > or = 6.5% Pre-diabetic 5.7 to 6.4% Non-diabetic < or = 5.6% Glycemic Targets for Type I and Type II Diabetics: Non- Adults <7.0% Adults <6.0% Children and Adolescents <7.5% Source: [place] [employer]. Standards of medical care in diabetes,2017. Diabetes Care.2017:40 (suppl 1):S1-S135. Musa Rosado MD LAB BLOOD ORDERABLES Final R esult [facility] [address] [place] [address] from Last 3 Months Additional Health Concerns Active Problems Noted Date Diagnosed Date Autogenerated Problem 02/17/2025 Insurance [facility] MEDICARE Advance Directives * Full Code (Latest Code Status on File) Date Activated Date Inactivated Comments 03/22/2025 3:49 PM 03/30/2025 1:44 PM Question Answer Comments Patient has decision-making capacity? Yes Care Teams Pattern Maker Relationship Specialty Start Date End Date David Iverson MD PCP - General 06/06/22 Ludin Gonzalez MD [facility] [place] [address] Referring Physician 02/18/25
--- OUTSIDE RECORDS SUMMARY | 2025-04-06 14:32 | XMS_ITS | Encounter Summary ---
Author Organization Healthcare Address [address] [id number] Care Team Providers Care Riverboat Master Name Role Phone David Iverson MD Primary Care Provider [phone] Ludin Gonzalez MD Unavailable [phone] Encounter Details Date Type Department Care Team (Latest Contact Info) Description 03/21/2025 Travel Social History Tobacco Use Types Packs/Day [...] containing alcohol? Never 03/21/2025 12:53 PM EDT Savanna, Corina e N Q2: How many drinks containing alcohol do you have on a typical day when you are drinking? Patient does not drink 03/21/2025 12:53 PM EDT Stephanie Corrales Q3: How often do you have six or more drinks on one occasion? Never 03/21/2025 12:53 PM EDT Corina Corrales documented as of this encounter Plan of Treatment Upcoming Encounters Date Type Department Care Team (Late st Contact Info) Description 04/14/2025 3:40 PM EDT Office Visit [facility] [address], [address] [place] [address] Musa Rosado MD [address] [place] [address] 06/13/2025 11:40 AM EDT Office Visit [facility] Nephrology, Bone & Mineral Metabolism [address] [facility], [address] [place] [address] Sonia Medley MD [address] [place] [address] documented as of this encounter Goals Goal Patient Goal Type Associated Problems Recent Progress Patient-Stated? 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 Syed, ANESTHESIOLOGIST/PHYSICIAN documented as of this encounter Visit Diagnoses [...] documented as of this encounter Care Teams Riverboat Master Relationship Specialty Start Date End Date David Iverson MD PCP - General 06/06/22 Ludin Gonzalez MD [address] [id number] Referring Physician 02/18/25 documented as of this encounter
--- OUTSIDE RECORDS SUMMARY | 2025-04-06 14:32 | XMS_ITS | Encounter Summary ---
Author Organization Healthcare Address [address] [place] [address] Care Team Providers Care Searchlight Operator Name Role Phone David Iverson MD Primary Care Provider [phone] Ludin Gonzalez MD Unavailable [phone] Encounter Details Date Type Department Care Team ([facility] Contact Info) Description 04/04/2025 Telephone PAV A Inpatient [address] [place] [id number] Mikayla Leung CV TELE-PROGRESSIVE Social History Tobacco Use Types Packs/Day Years [...] any time in the past 12 m [facility], were you homeless or living in a fpc (including now)? No 03/23/2025 Utilities Answer Date [...] on file documented as of this encounter Plan of Treatment Upcoming Encounters Date Type Department Care Team (Late st Contact Info) Description 04/14/2025 3:40 PM EDT Office Visit [facility] [address], [address] [place] [address] Musa Rosado MD [address] [place] [address] 06/13/2025 11:40 AM EDT Office Visit [facility] Nephrology, Bone & Mineral Metabolism [address] [facility], [address] [place] [address] Sonia Medley MD [address] [place] [address] documented as of this encounter Goals Goal Patient Goal Type Associated Problems Recent Progress Patient-Stated? 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 Syed, REPAIRER VENEER SHEET documented as of this encounter Visit Diagnoses [...] documented as of this encounter Care Teams Searchlight Operator Relationship Specialty Start Date End Date David Iverson MD PCP - General 06/06/22 Ludin Gonzalez MD [address] [place], [place] [id number] Referring Physician 02/18/25 documented as of this encounter
--- OUTSIDE RECORDS SUMMARY | 2025-04-06 14:32 | XMS_ITS | Encounter Summary ---
Author Organization Healthcare Address [address] [place] [address] Care Team Providers Care Men'S Basketball Coach Name Role Phone David Iverson MD Primary Care Provider [phone] Ludin Gonzalez MD Unavailable [phone] Encounter Details Date Type Department Care Team (Latest Contact Info) Description 03/30/2025 Travel Social History Tobacco Use Types Packs/Day [...] any time in the past 12 m [facility], were you homeless or living in a long-term (including now)? No 03/23/2025 Utilities Answer Date [...] 04/14/2025 3:40 PM EDT Office Visit [place] [facility] [address], [address] [place] [address] Musa Rosado MD [address] [place] [address] 06/13/2025 11:40 AM EDT Office Visit [facility] Nephrology, Bone & Mineral Metabolism [address], [address] [place] [address] Sonia Medley MD [address] [facility] [address] [place] [address] documented as of this encounter Goals Goal Patient Goal Type Associated Problems Recent Progress Patient-Stated? 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 Syed, CROP PICKER documented as of this encounter Visit Diagnoses [...] documented as of this encounter Care Teams Men'S Basketball Coach Relationship Specialty Start Date End Date David Iverson MD PCP - General 06/06/22 Ludin Gonzalez MD [address] [place] [address] Referring Physician 02/18/25 documented as of this encounter
--- OUTSIDE RECORDS SUMMARY | 2025-04-06 14:33 | XMS_ITS | Encounter Summary ---
Author Organization Healthcare Address [address] [place] [address] Care Team Providers Care Asw Specialist Name Role Phone David Iverson MD Primary Care Provider [phone] Ludin Gonzalez MD Unavailable [phone] Encounter Details Date Type Department Care Team (Latest Contact Info) Description 03/25/2025 Travel Social History Tobacco Use Types Packs/Day [...] any time in the past 12 m [facility], were you homeless or living in a care home (including now)? No 03/23/2025 Utilities Answer [...] Date of Assessment Author No Risk Indicated 03/25/2025 8:00 AM Camille Patino RN * Question Answer Date of Assessment Author 1. Wish to be (Past 1 Month) No 025 8:00 AM Camille Patino RN 2. Non-Specific Active Suici beverley Thoughts (Past 1 Month) No 03/25/2025 8:00 AM Camille Patino RN 6. Suicidal Behavior (Lifetime) No 8:00 AM Camille Patino J, RN documented as of this encounter Plan of Treatment Upcoming Encounters Date Type Department Care Team (Late st Contact Info) Description 04/14/2025 3:40 PM EDT [facility] Visit [facility] [address], [address] [place] [address] Musa Rosado MD [address] [place] [address] 06/13/2025 11:40 AM EDT Office Visit [facility] [place] Nephrology, Bone & Mineral Metabolism [address] [facility], [address] [place] [address] Sonia Medley MD [address] [place] [address] documented as of this encounter Goals Goal Patient Goal Type Associated Problems Recent Progress Patient-Stated? 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 Syed, ECLECTIC DOCTOR documented as of this encounter Visit Diagnoses [...] documented as of this encounter Care Teams Asw Specialist Relationship Specialty Start Date End Date David Iverson MD PCP - General 06/06/22 Ludin Gonzalez MD [address] [address] Referring Physician 02/18/25 documented as of this encounter
--- OUTSIDE RECORDS SUMMARY | 2025-04-06 14:33 | XMS_ITS | Encounter Summary ---
Author Organization Healthcare Address [address] [place] [address] Care Team Providers Care Relationship Advisor Name Role Phone David Iverson MD Primary Care Provider [phone] Ludin Gonzalez MD Unavailable [phone] Encounter Details Date Type Department Care Team (Latest Contact Info) Description 03/26/2025 Travel Social History Tobacco Use Types Packs/Day [...] time in the past 12 m [facility], were you homeless or living in a senior care (including now)? No 03/23/2025 Utilities Answer Date [...] Date of Assessment Author No Risk Indicated 03/26/2025 8:00 AM EDT Malinda Mathis, RN * Question Answer Date of Assessment Author 1. Wish to be (Past 1 Month) No 025 8:00 AM EDT Malinda Mathis, RN 2. Non-Specific Active Suici beverley Thoughts (Past 1 Month) No 03/26/2025 8:00 AM EDT Malinda Mathis, RN 6. Suicidal Behavior (Lifetime) No 8:00 AM EDMalinda Navarro, RN documented as of this encounter Plan of Treatment Upcoming Encounters Date Type Department Care Team (Late st Contact Info) Description 04/14/2025 3:40 PM EDT Office Visit [facility] [address], [address] [place] [address] Musa Rosado MD [address] [place] [address] 06/13/2025 11:40 AM EDT Office Visit [facility] Nephrology, Bone & Mineral Metabolism [address], [address] [place] [address] Sonia Medley MD [address] [place] [address] documented as of this encounter Goals Goal Patient Goal Type Associated Problems Recent Progress Patient-Stated? 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 Syed, BASKET MACHINE OPERATOR documented as of this encounter Visit Diagnoses [...] documented as of this encounter Care Teams Relationship Advisor Relationship Specialty Start Date End Date David Iverson MD PCP - General 06/06/22 Ludin Gonzalez MD [address] [id number] Referring Physician 02/18/25 documented as of this encounter
--- OUTSIDE RECORDS SUMMARY | 2025-04-06 14:33 | XMS_ITS | Encounter Summary ---
Author Organization Healthcare Address [address] [place] [address] Care Team Providers Care Superintendent Quarry Name Role Phone David Iverson MD Primary Care Provider [phone] Ludin Gonzalez MD Unavailable [phone] Encounter Details Date Type Department Care Team (Latest Contact Info) Description 03/27/2025 Travel Social History Tobacco Use Types Packs/Day [...] any time in the past 12 m [facility], were you homeless or living [...] (Past 1 Month) No 03/27/2025 8:00 PM JARADT Cait Roca RN 6. Suicidal Behavior (Lifetime) No 8:00 PM EDT Afshan Roca RN documented as of this encounter Plan of Treatment Upcoming Encounters Date Type Department Care Team (Late st Contact Info) Description 04/14/2025 3:40 PM EDT [facility] [address], [address] [place] [address] Musa Rosado MD [address] [place] [address] 06/13/2025 11:40 AM EDT Office Visit [facility] Nephrology, Bone & Mineral Metabolism [address] [facility], [address] [place] [address] Sonia Medley MD [address] [place] [address] documented as of this encounter Goals Goal Patient Goal Type Associated Problems Recent Progress Patient-Stated? 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 Syed, CONTROL ROOM TECHNICIAN documented as of this encounter Visit Diagnoses [...] documented as of this encounter Care Teams Superintendent Quarry Relationship Specialty Start Date End Date David Iverson MD PCP - General 06/06/22 Ludin Gonzalez MD [address] [address] Referring Physician 02/18/25 documented as of this encounter
--- OUTSIDE RECORDS SUMMARY | 2025-04-06 14:34 | XMS_ITS | Encounter Summary ---
Author Organization Healthcare Address [address] [place] [address] Care Team Providers Care Skip Operator Name Role Phone David Iverson MD Primary Care Provider [phone] Ludin Gonzalez MD Unavailable [phone] Encounter Details Date Type Department Care Team (Latest Contact Info) Description 03/14/2025 Travel Social History Tobacco Use Types Packs/Day [...] Description 04/14/2025 3:40 PM EDT Office Visit [facility] [address] [facility] [address] [place] [address] Musa Rosado MD [address] [place] [address] 06/13/2025 11:40 AM EDT Office Visit [facility] Nephrology, Bone & Mineral Metabolism [address] [facility], [address] [place] [address] Sonia Medley MD [address] [address] documented as of this encounter Goals Goal Patient Goal Type Associated Problems Recent Progress Patient-Stated? 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 Syed, INDUSTRIAL GAS SERVICER documented as of this encounter Visit Diagnoses [...] documented as of this encounter Care Teams Skip Operator Relationship Specialty Start Date End Date David Iverson MD PCP - General 06/06/22 Ludin Gonzalez MD [address] [place] [address] Referring Physician 02/18/25 documented as of this encounter
--- OUTSIDE RECORDS SUMMARY | 2025-04-06 14:34 | XMS_ITS | Encounter Summary ---
Author Organization Healthcare Address [address] [place] [address] Care Team Providers Care Drill Punch Operator Name Role Phone David Iverson MD Primary Care Provider [phone] Ludin Gonzalez MD Unavailable [phone] Encounter Details Date Type Department Care Team (Latest Contact Info) Description 03/22/2025 Travel Social History Tobacco Use Types Packs/Day [...] the past [address] [facility], were you homeless or living in a [...] Month) No 025 11:00 PM EDT Kelly Haynes, LISSY 2. Non-Specific Active Suici beverley Thoughts (Past 1 Month) No 03/22/2025 11:00 PM JARADT Kelly Haynes , LISSY 6. Suicidal Behavior (Lifetime) No 11:00 PM EDT Kelly Haynes RN documented as of this encounter Plan of Treatment Upcoming Encounters Date Type Department Care Team (Late st Contact Info) Description 04/14/2025 3:40 PM EDT Office Visit [facility] [address], [address] [place] [address] Musa Rosado MD [address] [place] [address] 06/13/2025 11:40 AM EDT Office Visit [facility] [place] Nephrology, Bone & Mineral Metabolism [address] [facility], [address] [place] [address] Sonia Medley MD [address] [place] [address] documented as of this encounter Goals Goal Patient Goal Type Associated Problems Recent Progress Patient-Stated? 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 Syed, BOOK BINDER documented as of this encounter Visit Diagnoses [...] documented as of this encounter Care Teams Drill Punch Operator Relationship Specialty Start Date End Date David Iverson MD PCP - General 06/06/22 Ludin Gonzalez MD [address] [address] Referring Physician 02/18/25 documented as of this encounter
--- OUTSIDE RECORDS SUMMARY | 2025-04-06 14:34 | XMS_ITS | Encounter Summary ---
Author Organization Healthcare Address [address] [place] [address] Care Team Providers Care Whiting Machine Operator Name Role Phone David Iverson MD Primary Care Provider [phone] Ludin Gonzalez MD Unavailable [phone] Encounter Details Date Type Department Care Team (Latest Contact Info) Description 03/24/2025 Travel Social History Tobacco Use Types Packs/Day [...] time in the past [address] [facility], were you homeless or living in [...] Date of Assessment Author No Risk Indicated 03/24/2025 8:00 PM EDT Jignesh Sanchez RN * Question Answer Date of Assessment Author 1. Wish to be (Past 1 Month) No 03/24/2025 8:00 PM EDT Marlen Rooney RN 2. Non-Specific Active Suicidal Thoughts (Past 1 Month) No 03/24/2025 8:00 PM JARADT Marlen Rooney RN 6. Suicidal Behavior (Lifetime) No 03/24/2025 8:00 PM EDT Marlen Rooney, RN documented as of this encounter Plan of Treatment Upcoming Encounters Date Type Department Care Team (Late st Contact Info) Description 04/14/2025 3:40 PM EDT Office Visit [facility] [address], [address] [place] [address] Musa Rosado MD [address] [place] [address] 06/13/2025 11:40 AM EDT Office Visit [facility] [place] Nephrology, Bone & Mineral Metabolism [address] [facility], [address] [place] [address] Sonia Medley MD [address] [facility] [address] [place] [address] documented as of this encounter Goals Goal Patient Goal Type Associated Problems Recent Progress Patient-Stated? 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 Syed, TRAILHEAD MAINTENANCE WORKER documented as of this encounter Visit Diagnoses [...] documented as of this encounter Care Teams Whiting Machine Operator Relationship Specialty Start Date End Date David Iverson MD PCP - General 06/06/22 Ludin Gonzalez MD [address] [address] Referring Physician 02/18/25 documented as of this encounter
--- OUTSIDE RECORDS SUMMARY | 2025-04-06 14:34 | XMS_ITS | Encounter Summary ---
Author Organization [facility] Address [address] [place] [address] Care Team Providers Care Meteorology Instructor Name Role Phone David Iverson MD Primary Care Provider [phone] Encounter Details Date Type Department Care Team (Late Contact Info) Description 02/17/2025 Orders Only [facility] Cardiothoracic [address], [address] [place] [address] Musa Rosado MD [address] [facility] [address] [place] [address] Coronary artery disease involving [place] heart without angina pectoris, unspecified vessel or lesion type (Primary Dx) Social History Tobacco Use Types [...] Encounters Date Type Department Care Team (Late Contact Info) Description 04/14/2025 3:40 PM EDT Office Visit [facility] Cardiothoracic [address], [address] [place] [address] Musa Rosado MD [address] [place] [address] 06/13/2025 11:40 AM EDT Office Visit [facility] Nephrology, Bone & Mineral Metabolism [address], [address] [place] [address] Sonia Medley MD [address] [place] [address] documented as of this encounter Goals Goal Patient Goal Type Associated Problems Recent Progress Patient-Stated? 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 Syed, COMPRESSOR MECHANIC BUS documented as of this encounter Results * (ABNORMAL) Hemoglobin A1c (02/17/2025 1:31 PM EDT) Hemoglobin A1c 7.2(H) <5.7 % 02/17/2025 4:41 PM EDT [facility] Blood Venous blood specimen / Unknown Venipuncture / Unknown 02/17/2025 1:31 PM EDT 02/17/2025 1:31 PM EDT Narrative [facility] - 02/17/2025 4:41 PM EDT HA1C Interpretive Data: Diagnosis of Diabetes: Diabetic > or = 6.5% Pre-diabetic 5.7 to 6.4% Non-diabetic < or = 5.6% Glycemic Targets for Type I and Type II Diabetics: Non- Adults <7.0% Adults <6.0% Children and Adolescents <7.5% Source: [employer]. Standards of medical care in diabetes,2017. Diabetes Care.2017:40 (suppl 1):S1-S135. us Musa Rosado MD LAB BLOOD ORDERABLES Final R esult [facility] [address] [place] [address] * APTT (02/17/2025 1:31 PM EDT) aPTT 25 25 - 35 sec LAB COAGULATION METHOD 02/17/2025 2:47 PM EDT [facility] Blood Venous blood specimen / Unknown Venipuncture / Unknown 02/17/2025 1:31 PM EDT 02/17/2025 1:31 PM EDT Musa Rosado MD LAB BLOOD ORDERABLES Final R esult Performing Organization Address [facility]/ZIP Co de Phone Number [facility] [address] [place] [address] * Protime-INR (02/17/2025 1:31 PM EDT) Prothrombin Time 14.0 12.0 - 14.3 sec LAB COAGULATION METHOD 02/17/2025 2:47 PM EDT [facility] INR 1.1 0.9 - 1.1 LAB COAGULATION METHOD 02/17/2025 2:47 PM EDT [facility] Blood Venous blood specimen / Unknown Venipuncture / Unknown 02/17/2025 1:31 PM EDT 02/17/2025 1:31 PM EDT Narrative [facility] - 02/17/2025 2:47 PM EDT OPTIMAL INR RANGES FOR PATIENT ON ORAL ANTICOAGULANT THERAPY Prevention of venous thromboembolism INR 2.0 to 3.0 In patients with heart disease: Atrial fibrillation INR 2.0 to 3.0 Valvular heart disease INR 2.0 to 3.0 Tissue heart valves INR 2.0 to 3.0 Mechanical prosthetic valves INR 2.5 to 3.5 Prevention of recurrent TX INR 2.5 to 3.5 us Musa Rosado MD LAB BLOOD ORDERABLES Final R esult Performing Organization Address City/[facility]/ZIP Co de Phone Number [facility] [address] [place] [address] * CBC (02/17/2025 1:31 PM EDT) WBC Count 8.03 3.70 - 10.30 10*3/uL LAB HEMATOLOGY METHOD 02/17/2025 2:58 PM EDT [facility] RBC Count 5.14 4.60 - 6.10 10*6/uL LAB HEMATOLOGY METHOD 02/17/2025 2:58 PM EDT [facility] HGB 15.3 13.7 - 17.5 g/dL LAB HEMATOLOGY METHOD 02/17/2025 2:58 PM EDT [facility] HCT 45.7 40.0 - 51.0 % LAB HEMATOLOGY METHOD 02/17/2025 2:58 PM EDT [facility] Platelet Count 217 155 - 369 10*3/uL LAB HEMATOLOGY METHOD 02/17/2025 2:58 PM EDT [facility] MCV 89 79 - 98 fL LAB HEMATOLOGY METHOD 02/17/2025 2:58 PM EDT [facility] MCH 29.8 26.0 - 32.0 pg LAB HEMATOLOGY METHOD 02/17/2025 2:58 PM EDT [facility] MCHC 33.5 30.7 - 35.5 g/dL LAB HEMATOLOGY METHOD 02/17/2025 2:58 PM EDT [facility] RDW 13.3 11.5 - 14.5 % LAB HEMATOLOGY METHOD 02/17/2025 2:58 PM EDT [facility] MPV 11.2 8.8 - 12.5 fL LAB HEMATOLOGY METHOD 02/17/2025 2:58 PM EDT [facility] nRBC 0.0 <=0.0 per 100 WBCs LAB HEMATOLOGY METHOD 02/17/2025 2:58 PM EDT [facility] Blood Venous blood specimen / Unknown Venipuncture / Unknown 02/17/2025 1:31 PM EDT 02/17/2025 1:31 PM EDT us Musa Rosado MD LAB BLOOD ORDERABLES Final R esult [facility] [address] [place] [address] * (ABNORMAL) Comprehensive Metabolic Panel, Plasma (02/17/2025 1:31 PM EDT) Glucose, Plasma 196(H) 74 - 99 mg/dL 02/17/2025 3:07 PM EDT [facility] BUN, Plasma 24(H) 7 - 21 mg/dL 02/17/2025 3:07 PM EDT [facility] Creatinine, Plasma 1.46(H) 0.70 - 1.20 mg/dL 02/17/2025 3:07 PM EDT [facility] BUN/Creatinine Ratio 16 02/17/2025 3:07 PM EDT [facility] Sodium, Plasma 136 136 - 145 mmol/L 02/17/2025 3:07 PM EDT [facility] Potassium, Plasma 4.1 3.6 - 4.9 mmol/L 02/17/2025 3:07 PM EDT [facility] Chloride, Plasma 100 97 - 107 mmol/L 02/17/2025 3:07 PM EDT [facility] CO2, Plasma 25 22 - 29 mmol/L 02/17/2025 3:07 PM EDT [facility] Anion Gap 11 6 - 16 mmol/L 02/17/2025 3:07 PM EDT [facility] Total Calcium, Plasma 9.6 8.9 - 10.2 mg/dL 02/17/2025 3:07 PM EDT [facility] Total Protein 7.6 6.3 - 7.9 g/dL 02/17/2025 3:07 PM EDT [facility] Albumin, Plasma 4.6 3.5 - 5.2 g/dL 02/17/2025 3:07 PM EDT [facility] AST, Plasma 16 10 - 50 U/L 02/17/2025 3:07 PM EDT [facility] ALT, Plasma 25 10 - 50 U/L 02/17/2025 3:07 PM EDT [facility] Alkaline Phosphatase, Plasma 45 40 - 115 U/L 02/17/2025 3:07 PM EDT [facility] Total Bilirubin, Plasma 0.6 0.2 - 1.1 mg/dL 02/17/2025 3:07 PM EDT [facility] eGFRcr 60.8 mL/min/1.7 3m*2 02/17/2025 3:07 PM EDT [facility] Comment:Reported eGFRcr in m L/min/1.73m2 is based the CKD-EPI 2020 equation that does not use a race coefficient. Blood Venous blood specimen / Unknown Venipuncture / Unknown 02/17/2025 1:31 PM EDT 02/17/2025 1:31 PM EDT us Musa Rosado MD LAB BLOOD ORDERABLES Final R esult [facility] [address] [place] [address] documented in this encounter Visit Diagnoses Diagnosis Coronary artery disease involving [place] heart without angina pectoris, unspecified vessel or lesion type- Primary documented in this encounter Additional Health Concerns Active Problems Noted Date Diagnosed Date Autogenerated Problem 02/17/2025 Assessment Noted Time A fall risk assessment has been complete d for the patient 09/15/2024 12:39 PM EST A Body Mass Index follow-up plan has been documented for the patient 02/17/2025 2:45 PM EDT documented as of this encounter Care Teams Meteorology Instructor Relationship Specialty Start Date End Date David Iverson MD PCP - General 06/06/22 documented as of this encounter
--- OUTSIDE RECORDS SUMMARY | 2025-04-06 14:34 | XMS_ITS | Encounter Summary ---
Author Organization Healthcare Address [address] [place] [address] Care Team Providers Care Nursing Unit Clerk Name Role Phone David Iverson MD Primary Care Provider [phone] Encounter Details Date Type Department Care Team (Latest Contact Info) Description 02/17/2025 Travel Social History Tobacco Use Types Packs/Day [...] Description 04/14/2025 3:40 PM EDT Office Visit [facility] Cardiothoracic [address], [address] [place] [address] Musa Rosado MD [address] [facility] [address] [place] [address] 06/13/2025 11:40 AM EDT Office Visit [facility] Nephrology, Bone & Mineral Metabolism [address] [facility], [address] [place] [address] Sonia Medley MD [address] [address] documented as of this encounter Goals Goal Patient Goal Type Associated Problems Recent Progress Patient-Stated? 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 Syed, MACHINIST SUPERVISOR OUTSIDE documented as of this encounter Visit Diagnoses [...] documented as of this encounter Care Teams Nursing Unit Clerk Relationship Specialty Start Date End Date David Iverson MD PCP - General 06/06/22 documented as of this encounter
--- OUTSIDE RECORDS SUMMARY | 2025-04-06 14:34 | XMS_ITS | Encounter Summary ---
Author Organization Healthcare Address [address] [place] [address] Care Team Providers Care Pharmaceutical Plant Operator Name Role Phone David Iverson MD Primary Care Provider [phone] Ludin Gonzalez MD Unavailable [phone] Encounter Details Date Type Department Care Team (Latest Contact Info) Description 03/15/2025 Travel Social History Tobacco Use Types Packs/Day [...] Office Visit [facility] Cardi[facility] [address] [facility] [address] [place] [address] Musa Rosado MD [address] [place] [address] 06/13/2025 11:40 AM EDT Office Visit [facility] Nephrology, Bone & Mineral Metabolism [address] [facility], [address] [place] [address] Sonia Medley MD [address] [address] documented as of this encounter Goals Goal Patient Goal Type Associated Problems Recent Progress Patient-Stated? 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 Syed, CHIEF MARKETING OFFICER documented as of this encounter Visit Diagnoses [...] documented as of this encounter Care Teams Pharmaceutical Plant Operator Relationship Specialty Start Date End Date David Iverson MD PCP - General 06/06/22 Ludin Gonzalez MD [address] [place] [address] Referring Physician 02/18/25 documented as of this encounter
--- OUTSIDE RECORDS SUMMARY | 2025-04-06 14:34 | XMS_ITS | Encounter Summary ---
Author Organization Healthcare Address [address] [place] [address] Care Team Providers Care Asphalt Still Operator Name Role Phone David Iverson MD Primary Care Provider [phone] Ludin Gonzalez MD Unavailable [phone] Encounter Details Date Type Department Care Team (Latest Contact Info) Description 03/23/2025 Travel Social History Tobacco Use Types Packs/Day [...] [facility] in the past [facility], were you homeless or living in [...] Office Visit [place] [facility] [address], [address] [place] [address] Musa Rosado MD [address] [place] [address] 06/13/2025 11:40 AM EDT Office Visit [facility] Nephrology, Bone & Mineral Metabolism [address], [address] [place] [address] Sonia Medley MD [address] [facility] [address] [place] [address] documented as of this encounter Goals Goal Patient Goal Type Associated Problems Recent Progress Patient-Stated? 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 Syed, SHIP CEILER documented as of this encounter Visit Diagnoses [...] documented as of this encounter Care Teams Asphalt Still Operator Relationship Specialty Start Date End Date David Iverson MD PCP - General 06/06/22 Ludin Gonzalez MD [address] [place] [address] Referring Physician 02/18/25 documented as of this encounter
--- OUTSIDE RECORDS SUMMARY | 2025-04-06 14:35 | XMS_ITS | Encounter Summary ---
Author Organization [facility] Address [address] [place] [id number] Care Team Providers Care Dental Ceramist Helper Name Role Phone David Iverson MD Primary Care Provider [phone] Ludin Gonzalez MD Unavailable [phone] Encounter Details Date Type Department Care Team ([facility] Contact Info) Description 03/10/2025 [facility] Nephrology, Bone & Mineral Metabolism [address] [facility], [address] [place] [address] Russel Zaman [facility] [address] [place] [address] Social History Tobacco Use Types Packs/Day Years [...] as of this encounter Miscellaneous Notes * Telephone Encounter - Russel Zaman - 03/10/2025 4:10 PM EDT Confirmed appointment labs are in [facility] documented in this encounter Plan of Treatment Upcoming Encounters Date Type Department Care Team ([facility] Contact Info) Description 04/14/2025 3:40 PM EDT Office Visit [place] [facility] Cardi[facility] [address], [address] [place] [address] Musa Rosado MD [address] [place] [address] 06/13/2025 11:40 AM EDT Office Visit [facility] Nephrology, Bone & Mineral Metabolism [address], [address] [place] [address] Sonia Medley MD [address] [place] [address] documented as of this encounter Goals Goal Patient Goal Type Associated Problems Recent Progress Patient-Stated? 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 Syed, HOSPICE HOME CARE COORDINATOR documented as of this encounter Visit Diagnoses [...] as of this encounter Care Teams Dental Ceramist Helper Relationship Specialty Start Date End Date David Iverson MD PCP - General 06/06/22 Ludin Gonzalez MD [address] [address] Referring Physician 02/18/25 documented as of this encounter
[2025-04-06 14:50] LABS: Hematocrit 34.8 % (42.0-52.0); Hemoglobin 11.1 g/dL (14.1-18.0); Immature Granulocytes % 0.3 %; Mean Corpuscular HGB Conc 31.9 g/dL (31.8-35.4); Mean Corpuscular Hemoglobin 29.3 pg (27.0-31.2); Mean Corpuscular Volume 91.8 fl (80-94); Nucleated Red Blood Cells % 0 %; Platelet Count 498 K/mm3 (142-424); Red Blood Count 3.79 M/mm3 (4.60-6.20); Red Cell Distribution Width-SD 47.0 fL; White Blood Count 6.7 K/mm3 (4.8-10.8)
[2025-04-06 14:58] LABS: Anion Gap 13.3 mEq/L (5-15); Blood Urea Nitrogen 18 mg/dl (9-20); Calcium 10.0 mg/dl (8.4-10.2); Carbon Dioxide 29 mmol/L (22.0-30.0); Chloride 100 mmol/L (98-107); Creatinine,Serum 1.10 mg/dl (0.66-1.25); Estimated Glomerular Filt Rate 73 ml/min (>60); GFR (African American) 88 ML/MIN (>60); Glucose 231 mg/dl (74-100); Magnesium 1.9 mg/dl (1.6-2.3); Potassium 4.3 mmoL/L (3.5-5.1); Sodium 138 mmol/L (136-145)
[2025-04-06 15:03] LABS: D-Dimer 1.61 ug/mL (0.0-0.5)
--- NOTE | 2025-04-06 16:00 | CA_ITS ---
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 66.0 (40-130 cm/s) MV A Velocity 50.0 (40-130 cm/s) E/A Ratio 1.33 MV Decel. Time 172 (160-240 ms) Left Ventricle The left ventricle is normal size. The left ventricular systolic function is normal. The left ventricular ejection fraction is within the normal range. There is normal left ventricular wall thickness. There is normal LV segmental wall motion. The left ventricular diastolic function is normal. LVEF is 55%. Right Ventricle Right ventricle is mildly dilated. The right ventricular systolic function is normal. Atria The left atrium size is normal. The right atrium size is normal. There is no Doppler evidence of interatrial shunt. Aortic Valve The aortic valve opens well. There is no aortic valvular stenosis. No aortic regurgitation is present. Mitral Valve The mitral valve is normal in structure and function. No evidence of mitral valve stenosis. There is no mitral valve regurgitation noted. Tricuspid Valve Tricuspid valve is grossly normal in structure and function. Mild tricuspid regurgitation. RVSP is 20-25 mmHg. Pulmonic Valve The pulmonary valve is normal in structure. Trace pulmonic regurgitation. Great Vessels The aortic root is normal in size. IVC is normal in size and collapses >50% with inspiration. Pericardium There is a small-sized, posterior pericardial effusion present. The largest pocket measures 0.4 cm in diastole. No echo indications of tamponade. Other Information Study Quality: Fair Conclusion Normal biventricular systolic function. Mild RV dilation. No significant valvular stenosis or regurgitation. Small-sized, posterior pericardial effusion present. The largest pocket measures 0.4 cm in diastole. No echo indications of tamponade. Electronically signed by : Kristi iKdd MD 04/06/2025 16:59:47
== END 2025-04-06 23:59 | disposition home or self-care (01) ==
PROVIDERS: PCP Family Medicine; Visit Provider Internal Medicine
DX: I07.1 Rheumatic tricuspid insufficiency (principal); I31.39 Other pericardial effusion (noninflammatory); I48.91 Unspecified atrial fibrillation; I10 Essential (primary) hypertension; I20.89 Other forms of angina pectoris; R94.39 Abnormal result of other cardiovascular function study; R93.1 Abnormal findings on diagnostic imaging of heart and coronary circulation; Z95.1 Presence of aortocoronary bypass graft
CPT/HCPCS: 36415; 80048; 83735; 85025; 85378; 93306

== ENCOUNTER 2025-04-07 13:16 | Outpatient (CLI) | payer MEDICARE, MEDICAID, SELFPAY ==
--- OUTSIDE RECORDS SUMMARY | 2025-02-17 11:40 | XMS_ITS | Encounter Summary ---
Author Organization Healthcare Address [address] [place] [address] Care Team Providers Care Stereo Map Plotter Operator Name Role Phone David Iverson MD Primary Care Provider [phone] Ludin Gonzalez MD Unavailable [phone] Encounter Details Date Type Department Care Team (Late st Contact Info) Description 02/17/2025 11:40 AM EDT Consult [facility] Cardi[facility]acic [address], [address] [place] [address] Musa Rosado MD [address] [place] [address] Coronary artery disease due to calcified coronary lesion (Primary Dx) Social History Tobacco Use Types Packs/Day Years Used Date Smoking Tobacco: Never Passive Smoke Exposure: Never Smokeless Tobacco: Never Alcohol Use Standard Drinks/Week Comments Never 0 (1 standard drink = 0.6 oz pur e alcohol) PHQ-2 Answer Date Recorded Patient Health Questionnaire-2 Score 0 04/23/2023 PHQ-2A Answer Date Recorded Patient Health Questionnaire-2 Score 0 04/23/2023 Sex and Gender Information Value Date Recorded Sex Assigned at Not on file Legal Sex Male 8:07 PM EDT Gender Identity Not on file Sexual Orientation Not on file documented as of this encounter Last Filed Vital Signs Vital Sign Reading Time Taken Comments Blood Pressure 133/80 02/17/2025 12:00 PM EDT Pulse 70 02/17/2025 12:00 PM EDT Temperature - - Respiratory Rate - - Oxygen Saturation 96% 02/17/2025 12:00 PM EDT Inhaled Oxygen Concentration - - Weight 104 kg (228 lb 9.9 oz) 02/17/2025 12:00 P M EDT Height 182.9 cm (6') 02/17/2025 12:00 PM EDT Body Mass Index 31.01 02/17/2025 12:00 PM EDT documented in this encounter Miscellaneous Notes * Progress Notes - Zulay Seyd, HOME HEALTH OUTREACH COORDINATOR - 02/17/2025 11:40 AM EDT Reason for visit / Chief Complaint: Evaluate for CABG in patient with multi- vessel corornary arterydisease History of present illness: Lizandro Sprague is a 45 y.o. male with recent medical history HTN, HLD, DM2 with neuropathy, CKD 3, and GERD referred to us in consultation by Dr. Gonzalez in regards to recent C with results indicating multi-vessel coronary artery disease. His PCP noted his CT calcium score elevated at 876 and referred him for stress test. The stress test results were suggestive of possible multivessel disease or balanced ischemia. He was then referred to cardiology for a left heart cath which confirmed severe three vessel coronary artery disease. He reports no symptoms of angina however his endorses poor activity tolerance and fatigue, worse over the past 6 months. He has been a type 2 diabetic for greater than 20 years and uses insulin,with most recent A1C 6.8. He has also had issues with his renal function and is followed by the nephrology team here at for CKD3 with baseline creatinine running about 1.4-1.7 per review of nephrology notes. Medical History His chronic comorbid conditions that impact our treatment planning include: Cardiac Surgery: The comorbid conditions that impact and complicate our treatment planning include:Chronic Kidney Disease Type II Diabetes NYHA Classification: Class I: No symptoms with ordinary activity. Smoking Cessation: Nonsmoker Active Problems: Patient Active Problem List Diagnosis Date Noted CAD (coronary artery disease) 02/17/2025 HLD (hyperlipidemia) 02/17/2025 Obesity (BMI 30-39.9) 02/17/2025 CKD (chronic kidney disease) stage 2, GFR 60-89 ml/min 01/14/2022 Essential hypertension 01/14/2022 Microalbuminuria 01/14/2022 Type 2 diabetes mellitus with stage 2 chronic kidney disease, with long-term current use of insulin([facility]) 01/14/2022 Medical History: Past Medical History: Diagnosis Date Chronic kidney disease Coronary artery disease GERD (gastroesophageal reflux disease) Hyperlipidemia Hypertension Type 2 diabetes mellitus Surgical History: Surgical History[1] Social History: Tobacco: Tobacco Use: Low Risk (09/15/2024) Patient History Smoking Tobacco Use: Never Smokeless Tobacco Use: Never Passive Exposure: Never Alcohol: Alcohol Use: Not on file Illicit drug use: Social History Substance and Sexual Activity Drug Use Never Family History: family history includes Diabetes in his mother; Lung cancer in his father; Stroke in his mother. Allergies: Allergies[2] Medications: Prior to Admission medications Medication Sig Start Date End Date Taking? Authorizing Provider allopurinol (Zyloprim) 300 MG tablet Take by mouth 1 (one) time each day. Yes Chavez Lambert MD aspirin 81 MG EC tablet Take 1 tablet (81 mg) by mouth 1 (one) time each day. Yes Chavez Lambert MD atorvastatin (Lipitor) 40 MG tablet Take by mouth 1 (one) time each day. Yes Chavez Lambert MD dilTIAZem CD (Cardizem CD) 180 MG 24 hr capsule Take 1 capsule (180 mg) by mouth 1 (one) time each day. 08/25/24 Yes Chavez Lambert MD Easy Touch Pen [place] 31G X 8 MM misc 04/18/23 Yes Chavez Lambert MD fenofibrate (Tricor) 145 MG tablet 11/29/22 Yes Chavez Lambert MD gabapentin (Neurontin) 300 MG capsule Take 1 capsule (300 mg) by mouth 2 (two) times a day. Yes Chavez Lambert MD hydroCHLOROthiazide (HYDRODiuril) 25 MG tablet Take by mouth 1 (one) time each day. Yes ProviderChavez MD Insulin Aspart (NOVOLOG FLEXPEN SC) Inject 30 Units under the skin 3 (three) times a day before meals. Yes Chavez Lambert MD Jardiance 25 MG 04/16/23 Yes Chavez Lambert MD Kerendia 10 MG tablet 04/09/23 Yes Chavez Lambert MD Lantus SoloStar 100 UNIT/ML injection pen 04/21/23 Yes Chavez Lambert MD lisinopril 20 MG tablet 05/16/23 Yes Chavez Lambert MD nebivolol (Bystolic) 10 MG tablet Take 1 tablet (10 mg) by mouth 1 (one) time each day. Patient taking differently: Take 0.5 tablets by mouth daily. Hold for HR < 60 Yes ProviderChavez MD omeprazole (PriLOSEC) [address] capsule Take by mouth 1 (one) time each day. Yes Provider, MD Chavez sildenafil (Viagra) 100 MG tablet 03/31/23 Yes Chavez Lambert MD traMADol (Ultram) 50 MG tablet Take by mouth. Yes ProviderChavez MD NovoLOG FLEXPEN 100 UNIT/ML injection pen 04/18/23 Provider, MD Chavez lovastatin (Mevacor) 40 MG tablet 04/16/23 02/17/25 Provider, MD Chavez Physical exam: Visit Vitals BP 133/80 Pulse 70 Ht 1.829 m (6') Wt 104 kg (228 lb 9.9 oz) SpO2 96% BMI 31.01 kg/m?? Review of Systems Constitutional: Negative. Eyes: Positive for blurred vision and visual disturbance. Cardiovascular: Positive for dyspnea on exertion. Respiratory: Negative. Neurological: Positive for weakness. All other systems reviewed and are negative. Physical Exam Vitals reviewed. Constitutional: Appearance: Normal appearance. HENT: Head: Normocephalic and atraumatic. Right Ear: External ear normal. Left Ear: External ear normal. Nose: Nose normal. Mouth/Throat: Pharynx: Oropharynx is clear. Eyes: Pupils: Pupils are equal, round, and reactive to light. Cardiovascular: Rate and Rhythm: Normal rate. Pulses: Normal pulses. Heart sounds: Normal heart sounds. Pulmonary: Effort: Pulmonary effort is normal. Breath sounds: Normal breath sounds. Abdominal: Palpations: Abdomen is soft. Genitourinary: Comments: Deferred Musculoskeletal: General: Normal range of motion. Cervical back: Normal range of motion and neck supple. Skin: General: Skin is warm and dry. Capillary Refill: Capillary refill takes less than 2 seconds. Neurological: General: No focal deficit present. Mental Status: He is alert and oriented to person, place, and time. Psychiatric: Mood and Affect: Mood normal. Behavior: Behavior normal. Thought Content: Thought content normal. Judgment: Judgment normal. Labs in last 18 hours: Component Ref Range & Units 02/17/25 5 mo ago 1 yr ago Glucose, Plasma 74 - 99 mg/dL 196 High 235 High 168 High BUN, Plasma 7 - 21 mg/dL 24 High 30 High 43 High Creatinine, Plasma 0.70 - 1.20 mg/dL 1.46 High 1.60 High 2.20 High R BUN/Creatinine Ratio 16 19 20 Sodium, Plasma 136 - 145 mmol/L 136 135 Low 139 Potassium, Plasma 3.6 - 4.9 mmol/L 4.1 4.3 4.8 R Chloride, Plasma 97 - 107 mmol/L 100 101 103 CO2, Plasma 22 - 29 mmol/L 25 23 24 Anion Gap 6 - 16 mmol/L 11 11 12 Total Calcium, Plasma 8.9 - 10.2 mg/dL 9.6 9.6 10.1 Total Protein 6.3 - 7.9 g/dL 7.6 Albumin, Plasma 3.5 - 5.2 g/dL 4.6 4.5 4.8 AST, Plasma 10 - 50 U/L 16 ALT, Plasma 10 - 50 U/L 25 Alkaline Phosphatase, Plasma 40 - 115 U/L 45 Total Bilirubin, Plasma 0.2 - 1.1 mg/dL 0.6 eGFRcr mL/min/1.73m*2 60.8 Component Ref Range & Units 02/17/25 5 mo ago 1 yr ago WBC Count 3.70 - 10.30 10*3/uL 8.03 7.83 7.83 RBC Count 4.60 - 6.10 10*6/uL 5.14 5.13 5.11 HGB 13.7 - 17.5 g/dL 15.3 15.5 15.3 HCT 40.0 - 51.0 % 45.7 45.5 46.4 Platelet Count 155 - 369 10*3/uL 217 234 276 MCV 79 - 98 fL 89 89 91 MCH 26.0 - 32.0 pg 29.8 30.2 29.9 MCHC 30.7 - 35.5 g/dL 33.5 34.1 33.0 RDW 11.5 - 14.5 % 13.3 13.2 13.2 MPV 8.8 - 12.5 fL 11.2 11.9 11.1 nRBC <=0.0 per 100 WBCs 0.0 0.0 0.0 Differential Type omponent Ref Range & Units 02/17/25 Prothrombin Time 12.0 - 14.3 sec 14.0 INR 0.9 - 1.1 1.1 Component Ref Range & Units 02/17/25 aPTT 25 - 35 sec 25 Component Ref Range & Units 02/17/25 Hemoglobin A1c <5.7 % 7.2 High Cardiac Cath Results: Left Heart Cath from 02/16/2025: Left main artery normal The left anterior descending artery has proximal tendon 20% stenosis followed by an additional concentric hazy 80% stenosis immediately adjacent to a medium sized first diagonal artery and large first septal drafter electrical. There is additional 30% distal stenosis. The LAD is large and wraps the apex. The circumflex artery is codominant and gives rise to a large first obtuse marginal artery the mid LAD has 50% hazy stenosis which extends into a moderate sized second obtuse marginal artery. The right coronary artery is codominant has proximal 60-70% concentric stenosis with mid vessel 30%stenosis. The CATHERINE ventriculogram reveals reduced at 45%. The left ventricular end diastolic pressure 20 mm hg. Impression: Severe three vessel coronary artery disease and an insulin requiring diabetic. Reduced ejection fraction. Borderline elevated LVEDP. Impression: Lizandro Sprague is a 45 y.o. male with PMHX HTN, HLD, DM2 with neuropathy, CKD 3, and GERD referred to us in consultation by Dr. Gonzalez in regards to recent [facility] with results indicating multi-vessel coronary artery disease. After discussion of risks and benefits he would like to proceed with coronary bypass surgery. Plan: -Scheduled for CABG on March 22, 2025, case request completed - Labs today - Will follow up in clinic on March 21 for pre-op evaluation, consent, labs, and xray - Reviewed medications and instructed patient to hold jardiance after 03/18 and lisinopril after 03/19 Tasha Ng [1] Past Surgical History: Procedure Laterality Date CARDIAC CATHETERIZATION 02/16/2025 [2] No Known Allergies Cosigned by Musa Rosado MD at 02/24/2025 10:58 AM EDT Associated attestation - Musa Rosado MD - 02/24/2025 10:58 AM EDT The patient was seen by Advanced Practice Provider (LISA) and myself-- care was reviewed with me. documented in this encounter Plan of Treatment Upcoming Encounters Date Type Department Care Team (Late st Contact Info) Description 04/14/2025 3:40 PM EDT Office Visit [facility] Cardiothoracic [address], [address] [place] [address] Musa Rosado MD [address] [place] [address] 06/13/2025 11:40 AM EDT Office Visit [facility] Nephrology, Bone & Mineral Metabolism [address], [address] [place] [address] Sonia Medley MD [address] [place] [address] documented as of this encounter Goals Goal Patient Goal Type Associated Problems Recent Progress Patient-Stated? 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 Syed, NATHANIEL documented as of this encounter Results * XR Chest 2 Views (03/21/2025 1:29 PM EDT) Anatomical Region Laterality Modality Chest Digital Radiogra phy Impressions 03/21/2025 2:58 PM EDT No acute findings. CRITICAL RESULT: No. COMMUNICATION: Per this written report. By electronically signing this report, I, the attending physician, attest that I have personally reviewed the images/data for the above examination(s) and agree with the final edited report. Drafted by Jenn Perea MD on 03/21/2025 2:43 PM Final report signed by Musa Cole MD on 03/21/2025 2:58 PM Narrative 03/21/2025 2:58 PM EDT CLINICAL INDICATION: Preop cardiac surgery TECHNIQUE: XR CHEST 2 VIEWS COMPARISON: None. FINDINGS: No focal consolidation. No pleural effusions or pneumothorax. Cardiac silhouette and mediastinal contour within normal limits. No acute osseous abnormality. Procedure Note Musa Cole MD - 03/21/2025 CLINICAL INDICATION: Preop cardiac surgery TECHNIQUE: XR CHEST 2 VIEWS COMPARISON: None. FINDINGS: No focal consolidation. No pleural effusions or pneumothorax. Cardiacsilhouette and mediastinal contour within normal limits. No acute osseousabnormality. IMPRESSION: No acute findings. CRITICAL RESULT: No. COMMUNICATION: Per this written report. By electronically signing this report, I, the attending physician, attestthat I have personally reviewed the images/data for the aboveexamination(s) and agree with the final edited report. Drafted by Jenn Perea MD on 03/21/2025 2:43 PM Final report signed by Musa Cole MD on 03/21/2025 2:58 PM Zulay Syed APRN IMG XR PROCEDURES Final Resu lt * Type and screen (03/21/2025 1:19 PM EDT) ABO/Rh A Positive 03/21/2025 1:09 PM EDT BLOOD BANK Antibody Screen Negative 03/21/2025 1:09 PM EDT BLOOD BANK Specimen Expiration 03/24/2025 23:59 03/21/2025 1:09 PM EDT BLOOD BANK Blood Venous blood specimen / Unknown Venipuncture / Unknown 03/21/2025 1:19 PM EDT 03/21/2025 1:19 PM EDT Zulay Syed APRN LAB BLOOD BANK TEST ORDERABL ES Final Result BLOOD BANK [address] [place] [address], * APTT (03/21/2025 1:19 PM EDT) aPTT 28 25 - 35 sec LAB COAGULATION METHOD 03/21/2025 2:51 PM EDT [facility] Blood Venous blood specimen / Unknown Venipuncture / Unknown 03/21/2025 1:19 PM EDT 03/21/2025 1:19 PM EDT Zulay Syed APRN LAB BLOOD ORDERABLES Final R esult Performing Organization Address [facility] Co de Phone Number [facility] [address] [place] [address] * Protime-INR (03/21/2025 1:19 PM EDT) Prothrombin Time 13.7 12.0 - 14.3 sec LAB COAGULATION METHOD 03/21/2025 2:51 PM EDT [facility] INR 1.0 0.9 - 1.1 LAB COAGULATION METHOD 03/21/2025 2:51 PM EDT [facility] Blood Venous blood specimen / Unknown Venipuncture / Unknown 03/21/2025 1:19 PM EDT 03/21/2025 1:19 PM EDT Narrative [facility] - 03/21/2025 2:51 PM EDT OPTIMAL INR RANGES FOR PATIENT ON ORAL ANTICOAGULANT THERAPY Prevention of venous thromboembolism INR 2.0 to 3.0 In patients with heart disease: Atrial fibrillation INR 2.0 to 3.0 Valvular heart disease INR 2.0 to 3.0 Tissue heart valves INR 2.0 to 3.0 Mechanical prosthetic valves INR 2.5 to 3.5 Prevention of recurrent IA INR 2.5 to 3.5 Zulay Syed APRN LAB BLOOD ORDERABLES Final R esult Performing Organization Address [facility] Co de Phone Number [facility] [address] [place] [address] * (ABNORMAL) Comprehensive metabolic panel (03/21/2025 1:19 PM EDT) Glucose, Plasma 155(H) 74 - 99 mg/dL 03/21/2025 2:49 PM EDT [facility] BUN, Plasma 21 7 - 21 mg/dL 03/21/2025 2:49 PM EDT [facility] Creatinine, Plasma 1.35(H) 0.70 - 1.20 mg/dL 03/21/2025 2:49 PM EDT [facility] BUN/Creatinine Ratio 16 03/21/2025 2:49 PM EDT [facility] Sodium, Plasma 139 136 - 145 mmol/L 03/21/2025 2:49 PM EDT [facility] Potassium, Plasma 4.1 3.6 - 4.9 mmol/L 03/21/2025 2:49 PM EDT [facility] Chloride, Plasma 103 97 - 107 mmol/L 03/21/2025 2:49 PM EDT [facility] CO2, Plasma 25 22 - 29 mmol/L 03/21/2025 2:49 PM EDT [facility] Anion Gap 11 6 - 16 mmol/L 03/21/2025 2:49 PM EDT [facility] Total Calcium, Plasma 9.6 8.9 - 10.2 mg/dL 03/21/2025 2:49 PM EDT [facility] Total Protein 7.2 6.3 - 7.9 g/dL 03/21/2025 2:49 PM EDT [facility] Albumin, Plasma 4.5 3.5 - 5.2 g/dL 03/21/2025 2:49 PM EDT [facility] AST, Plasma 19 10 - 50 U/L 03/21/2025 2:49 PM EDT [facility] ALT, Plasma 24 10 - 50 U/L 03/21/2025 2:49 PM EDT [facility] Alkaline Phosphatase, Plasma 41 40 - 115 U/L 03/21/2025 2:49 PM EDT [facility] Total Bilirubin, Plasma 0.5 0.2 - 1.1 mg/dL 03/21/2025 2:49 PM EDT [facility] eGFRcr 66.8 mL/min/1.7 3m*2 03/21/2025 2:49 PM EDT [facility] Comment:Reported eGFRcr in m L/min/1.73m2 is based the CKD-EPI 2020 equation that does not use a race coefficient. Blood Venous blood specimen / Unknown Venipuncture / Unknown 03/21/2025 1:19 PM EDT 03/21/2025 1:19 PM EDT us Zulay Syed HOME HEALTH OUTREACH COORDINATOR LAB BLOOD ORDERABLES Final R esult [facility] [address] [place] [address] * CBC and Differential (03/21/2025 1:19 PM EDT) WBC Count 6.31 3.70 - 10.30 10*3/uL LAB HEMATOLOGY METHOD 03/21/2025 3:03 PM EDT [facility] RBC Count 4.75 4.60 - 6.10 10*6/uL LAB HEMATOLOGY METHOD 03/21/2025 3:03 PM EDT [facility] HGB 14.2 13.7 - 17.5 g/dL LAB HEMATOLOGY METHOD 03/21/2025 3:03 PM EDT [facility] HCT 42.9 40.0 - 51.0 % LAB HEMATOLOGY METHOD 03/21/2025 3:03 PM EDT [facility] Platelet Count 214 155 - 369 10*3/uL LAB HEMATOLOGY METHOD 03/21/2025 3:03 PM EDT [facility] MCV 90 79 - 98 fL LAB HEMATOLOGY METHOD 03/21/2025 3:03 PM EDT [facility] MCH 29.9 26.0 - 32.0 pg LAB HEMATOLOGY METHOD 03/21/2025 3:03 PM EDT [facility] MCHC 33.1 30.7 - 35.5 g/dL LAB HEMATOLOGY METHOD 03/21/2025 3:03 PM EDT [facility] RDW 13.2 11.5 - 14.5 % LAB HEMATOLOGY METHOD 03/21/2025 3:03 PM EDT [facility] MPV 11.6 8.8 - 12.5 fL LAB HEMATOLOGY METHOD 03/21/2025 3:03 PM EDT [facility] nRBC 0.0 <=0.0 per 100 WBCs LAB HEMATOLOGY METHOD 03/21/2025 3:03 PM EDT [facility] Differential Type Automated LAB HEMATOLOGY METHOD 03/21/2025 3:03 PM EDT [facility] Neutrophils % 61 % LAB HEMATOLOGY METHOD 03/21/2025 3:03 PM EDT [facility] Lymphocytes % 29 % LAB HEMATOLOGY METHOD 03/21/2025 3:03 PM EDT [facility] Monocytes % 7 % LAB HEMATOLOGY METHOD 03/21/2025 3:03 PM EDT [facility] Eosinophils % 2 % LAB HEMATOLOGY METHOD 03/21/2025 3:03 PM EDT [facility] Basophils % 1 % LAB HEMATOLOGY METHOD 03/21/2025 3:03 PM EDT [facility] Immature Granulocytes % 0 % LAB HEMATOLOGY METHOD 03/21/2025 3:03 PM EDT [facility] Neutrophils Absolute 3.84 1.60 - 6.10 10*3/uL LAB HEMATOLOGY METHOD 03/21/2025 3:03 PM EDT [facility] Lymphocytes Absolute 1.81 1.20 - 3.90 10*3/uL LAB HEMATOLOGY METHOD 03/21/2025 3:03 PM EDT [facility] Monocytes Absolute 0.46 0.30 - 0.90 10*3/uL LAB HEMATOLOGY METHOD 03/21/2025 3:03 PM EDT [facility] Eosinophils Absolute 0.13 0.00 - 0.50 10*3/uL LAB HEMATOLOGY METHOD 03/21/2025 3:03 PM EDT [facility] Basophils Absolute 0.05 0.00 - 0.10 10*3/uL LAB HEMATOLOGY METHOD 03/21/2025 3:03 PM EDT [facility] Immature Granulocytes Absolute 0.02 0.00 - 0.06 10*3/uL LAB HEMATOLOGY METHOD 03/21/2025 3:03 PM EDT [facility] Blood Venous blood specimen / Unknown Venipuncture / Unknown 03/21/2025 1:19 PM EDT 03/21/2025 1:19 PM EDT Narrative [facility] - 03/21/2025 3:03 PM EDT Therapeutic decision making should be based on absolute values, rather than percentages. us Zulay Syed APRN LAB BLOOD ORDERABLES Final R esult [facility] [address] [place] [address] documented in this encounter Visit Diagnoses Diagnosis Coronary artery disease due to calcified coronary lesion- Primary Coronary artery disease due to calcified coronary lesion documented in this encounter Additional Health Concerns Active Problems Noted Date Diagnosed Date Autogenerated Problem 02/17/2025 Assessment Noted Time A fall risk assessment has been complete d for the patient 09/15/2024 12:39 PM EST A Body Mass Index follow-up plan has been documented for the patient 02/17/2025 2:45 PM EDT documented as of this encounter Care Teams Stereo Map Plotter Operator Relationship Specialty Start Date End Date David Iverson MD PCP - General 06/06/22 Ludin Gonzalez MD [address] [place] [address] Referring Physician 02/18/25 documented as of this encounter
--- OUTSIDE RECORDS SUMMARY | 2025-03-14 11:40 | XMS_ITS | Encounter Summary ---
Author Organization Healthcare Address [address] [place] [address] Care Team Providers Care Commercial Hvac Technician Name Role Phone David Iverson MD Primary Care Provider [phone] Ludin Gonzalez MD Unavailable [phone] Reason for Referral * Consultation (Routine) - Authorized Specialty Diagnoses / Procedures Referred By Contac t Referred To Contact Diagnoses Stage 3 chronic kidney disease, unspecified whether stage 3a or 3b CKD (CMS/HCC) Sonia Medley MD [address] [place] [phone] Phone: tel: fax: Referral ID Status Reason Start Date Expiration Date V isits Requested Visits Authorized [id number] Authorized 03/14/2025 09/13/2026 1 1 Reason for Visit * Reason Comments Follow-up Encounter Details Date Type Department Care Team ([facility] st Contact Info) Description 03/14/2025 11:40 AM EDT Office Visit [facility] Nephrology, Bone & Mineral Metabolism [address] , [address] [place] [address] Sonia Medley MD [address] [place] [address] Stage 3 chronic kidney disease, [...] Expiration Date: 09/13/2026 [facility] Protein, Random, Urine with Creatinine Standing Status: Future Expected Date: 03/14/2025 Expiration Date: 09/13/2026 [facility] Im[facility] Urinalysis with reflex microscopic (Culture NOT Included) Standing Status: Future Expected Date: 03/14/2025 Expiration Date: 09/13/2026 [facility] CBC W/O Differential Standing Status: Future Expected Date: 03/14/2025 Expiration Date: 09/13/2026 [facility] Renal Function Panel, Plasma Standing Status: Future Expected Date: 03/14/2025 Expiration Date: 09/13/2026 [facility] Follow Up Nephrology Standing Status: Future [...] Description 04/14/2025 3:40 PM EDT Office Visit [facility] Cardiothoracic [address], [address] [place] [address] Musa Rosado MD [address] [place] [address] 06/13/2025 11:40 AM EDT Office Visit [facility] Nephrology, Bone & Mineral Metabolism [address], [address] [place] [address] Sonia Medley MD [address] [place] [address] Scheduled Referrals Name Type Priority Associated Diagnoses Orde r Schedule Follow Up Nephrology Outpatient Referral Routine Stage 3 chronic kidney disease, unspecified whether stage 3a or 3b CKD ([facility]/HCC) Expected: 06/14/2025 (Approximate), Expires: 04/13/2026 documented as of this encounter Goals Goal Patient Goal Type Associated Problems Recent Progress Patient-Stated? 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 Syed, NATHANIEL documented as of this encounter Results * (ABNORMAL) Urinalysis with reflex microscopic (Culture NOT Included) (03/21/2025 1:15 PM EDT) Color, Urine Yellow LAB URINALYSIS - AUTOMATED METHOD 03/21/2025 2:[address] [facility] Clarity, Urine Clear LAB URINALYSIS - AUTOMATED METHOD 03/21/2025 2:[address] [facility] Spec [place], Urine 1.023 1.005 - 1.030 LAB URINALYSIS - AUTOMATED METHOD 03/21/2025 2:[address] [facility] pH, Urine 7.0 5.0 - 8.0 LAB URINALYSIS - AUTOMATED METHOD 03/21/2025 2:[address] [facility] Protein, Urine Negative Negative mg/dL LAB URINALYSIS - AUTOMATED METHOD 03/21/2025 2:[address] [facility] Glucose, Urine >=1000(A) Negative mg/dL LAB URINALYSIS - AUTOMATED METHOD 03/21/2025 2:[address] [facility] Ketones, Urine Negative Negative mg/dL LAB URINALYSIS - AUTOMATED METHOD 03/21/2025 2:[address] [facility] Blood, Urine Negative Negative LAB URINALYSIS - AUTOMATED METHOD 03/21/2025 2:[address] [facility] Bilirubin, Urine Negative Negative LAB URINALYSIS - AUTOMATED METHOD 03/21/2025 2:[address] [facility] Urobilinogen, Urine 1.0 0.2 to 1.0 mg/dL LAB URINALYSIS - AUTOMATED METHOD 03/21/2025 2:[address] [facility] Leukocytes, Urine Negative Negative LAB URINALYSIS - AUTOMATED METHOD 03/21/2025 2:[address] [facility] Nitrite, Urine Negative Negative LAB URINALYSIS - AUTOMATED METHOD 03/21/2025 2:[address] [facility] Urine Urine specimen obtained by clean catch procedure / Unknown Non-blood Collection / Unknown 03/21/2025 1:15 PM EDT 03/21/2025 1:15 PM EDT us Sonia Medley MD LAB URINE ORDERABLES Fin al Result Performing Organization Address City/[facility]/ZIP Co de Phone Number [facility] [address] [place] [address] * Protein, Random, Urine with Creatinine (03/21/2025 1:15 PM EDT) Protein, Urine <6 mg/dL 03/21/2025 2:[address] [facility] Creatinine, Urine 77 mg/dL 03/21/2025 2:[address] [facility] Protein/Creatin ine Ratio 03/21/2025 2:[address] [facility] Urine Urine specimen obtained by clean catch procedure / Unknown Non-blood Collection / Unknown 03/21/2025 1:15 PM EDT 03/21/2025 1:15 PM EDT us Sonia Medley MD LAB URINE ORDERABLES Fin al Result Performing Organization Address City/[facility]/ZIP Co de Phone Number [facility] [address] [place] [phone] documented in this encounter Visit Diagnoses Diagnosis [...] documented as of this encounter Care Teams Commercial Hvac Technician Relationship Specialty Start Date End Date David Iverson MD PCP - General 06/06/22 Ludin Gonzalez MD [facility] [place] [address] Referring Physician 02/18/25 documented as of this encounter
--- OUTSIDE RECORDS SUMMARY | 2025-03-15 11:30 | XMS_ITS | Encounter Summary ---
Author Organization Healthcare Address [address] [place] [address] Care Team Providers Care Animal Technician Name Role Phone David Iverson MD Primary Care Provider [phone] Ludin Gonzalez MD Unavailable [phone] Encounter Details Date Type Department Care Team (Late st Contact Info) Description 03/15/2025 11:30 AM EDT Pre-Admission Testing [facility] Pre-op Clinic [address] [place] [address] Anesthesia Record Procedure Summary Procedure Name Responsible [...] Labs 1123 ACT Performed 534s 1140 Cory [place] retracted per surgeon's request. Now 40cm at [...] (incision); Sternum 03/22/25 0855 by Jong Esparza, sales training representative 03/22/25; 0855; N; Surgical (incision); Pretibial; Proximal, Right 03/22/25 0855 by Jong Esparza, LISSY Peripheral IV Placement Date: 03/22/25; Placement Time: 0635; Orientation: Posterior, Right; Location: Wrist; Site Prep: Chlorhexidine ; Local Anesth: [place]; Technique: Anatomical landmarks; Inserted by: tanya rojas [...] Location: Mediastinal; Size: 36 Fr; Drainage System: [place]/nonsuction water seal drainage; Removal Date: 03/24/25; Removal [...] with Musa Rosado MD on 03/22/2025 in [facility] [place]. Past Medical History[1] Family History[2] Social History[3] SURGICAL HISTORY: Surgical History[4] Allergies[5] MEDICATIONS: Current Medications[6] ROS Anesthesia: Date of last anesthetic: Never had [place] Conscious sedation [facility] 02/2025 history of previous anesthesia. Does not have a history of anesthetic complications and obstructivesleep apnea. Cardiovascular: atrial fibrillation (on Xarelto), CAD and hyperlipidemia. Does not have CHF, dyspnea, dysrhythmias,pacemaker or past [place]. hypertension: is well controlled. Exercise tolerance is [...] thyroid disorder. gout. OSH stress test OSH [facility] 02/2025 OSH labs 03/2025 Glucose [...] mg by mouth daily.) Easy Touch Pen [place], nitroglycerin, DISSOLVE 1 TABLET UNDER THE TONGUE [...] card, photo ID, along with power of compliance attorney, guardianship or advanced directives if applicable [...] Description 04/14/2025 3:40 PM EDT Office Visit [facility] [address], [address] [place] [address] Musa Rosado MD [address] [place] [phone] 06/13/2025 11:40 AM EDT Office Visit [email or web address] [facility] [address] [address] [facility], [address] [place] [address] oSnia Medley MD [address] [facility] [address] [place] [address] documented as of this encounter [...] documented as of this encounter Care Teams Animal Technician Relationship Specialty Start Date End Date David Iverson MD PCP - General 06/06/22 Ludin Gonzalez MD [address] [place] [address] Referring Physician 02/18/25 documented as of this encounter
--- OUTSIDE RECORDS SUMMARY | 2025-03-21 13:00 | XMS_ITS | Encounter Summary ---
Author Organization Healthcare Address [address] [place] [address] Care Team Providers Care Dental Nurse Name Role Phone David Iverson MD Primary Care Provider [phone] Ludin Gonzalez MD Unavailable [phone] Reason for Visit * Auth/Cert (Routine) Specialty Diagnoses / Procedures Referred By Contac t Referred To Contact Diagnoses Coronary artery disease due to calcified coronary lesion Coronary artery disease due to calcified coronary lesion [I25.10, I25.84] Procedures MS CABG, VEIN, THREE CABG, 2 OR MORE VESSELS Musa Rosado MD [address] [address] Phone: tel: fax: [facility] A OPERATING ROOM [address] [place] [address] Phone: tel: Referral ID Status Reason Start Date Expiration Date Visits Re quested Visits Authorized [id number] 1 1 Encounter Details Date Type Department Care Team (Late st Contact Info) Description 03/21/2025 1:00 PM EDT Office Visit [facility] [address], [address] [place] [address] Musa Rosado MD [address] [address] Coronary artery disease involving pamunkey heart without angina pectoris, unspecified vessel or lesion type (Primary Dx); Type 2 diabetes mellitus with stage 2 chronic kidney disease, with long-term current use of insulin ([facility]); CKD (chronic kidney disease) stage 2, GFR 60-89 ml/min; Obesity (BMI 30-39.9) Social History Tobacco Use Types Packs/Day Years Used Date Smoking Tobacco: Never Passive Smoke Exposure: Never Smokeless Tobacco: Never Alcohol Use Standard Drinks/Week Comments Never 0 (1 standard drink = 0.6 oz pur e alcohol) PHQ-2 Answer Date Recorded Patient Health Questionnaire-2 Score 0 04/23/2023 AUDIT-C Answer Date Recorded Q1: How often do you have a drink containing alcohol? Never 03/21/2025 Q2: How many drinks containi ng alcohol do you have on a typical day when you are drinking? Patient does not drink Q3: How often do you have si x or more drinks on one occasion? Never 03/21/2025 PHQ-2A Answer Date Recorded Depression Risk 0 03/21/2025 Sex and Gender Information Value Date Recorded Sex Assigned at Not on file Legal Sex Male 8:07 PM EDT Gender Identity Not on file Sexual Orientation Not on file documented as of this encounter Last Filed Vital Signs Vital Sign Reading Time Taken Comments Blood Pressure 124/74 03/21/2025 12:49 PM EDT Pulse 52 03/21/2025 12:49 PM EDT Temperature - - Respiratory Rate - - Oxygen Saturation 97% 03/21/2025 12:49 PM EDT Inhaled Oxygen Concentration - - Weight 105 kg (232 lb 7.6 oz) 03/21/2025 12:49 P M EDT Height 182.9 cm (6') 03/21/2025 12:49 PM EDT Body Mass Index 31.53 03/21/2025 12:49 PM EDT documented in this encounter Functional Status * AUDIT-C Score Answer Date of Assessment Author 0 03/21/2025 12:53 PM EDT Stephanie Vasquez * Question Answer Date of Assessment Author Q1: How often do you have a drink containing alcohol? Never 03/21/2025 12:53 PM EDT Corina Corrales Q2: How many drinks containing alcohol do you have on a typical day when you are drinking? Patient does not drink 03/21/2025 12:53 PM EDT Stephanie Corrales Q3: How often do you have six or more drinks on one occasion? Never 03/21/2025 12:53 PM EDT Corina Corrales documented as of this encounter Miscellaneous Notes * Progress Notes - Zulay Syed, WATER [employer] SUPERINTENDENT - 03/21/2025 1:00 PM EDT Reason for visit / Chief Complaint: Pre-op visit for coronary revascularization scheduled for 03/22/2025 History of present illness: Lizandro Sprague is a 45 y.o. male with recent medical history HTN, HLD, DM2 with neuropathy, CKD 3, and GERD referred to us in consultation by Dr. Gonzalez in regards to recent [facility] with results indicating multi-vessel coronary artery disease. His PCP noted his CT calcium score elevated at 876 and referred him for stress test. The stress test results were suggestive of possible multivessel disease or balanced ischemia. He was then referred to cardiology for a left heart cath which confirmed severe three vessel coronary artery disease. He was subsequently scheduled for coronary artery bypass grafting on 03/22/2025 and he returns to clinic today for pre-op evaluation, xray, labs, and consent. He is posted for first case tomorrow morning with 4 units PRBCs on hold and ancef pre-op. Medical History His chronic comorbid conditions that impact our treatment planning include: Cardiac Surgery: The comorbid conditions that impact and complicate our treatment planning include:Chronic Kidney Disease Cardiac Arrhythmia Type II Diabetes Obesity NYHA Classification: Class I: No symptoms with ordinary activity. Smoking Cessation: Nonsmker Active Problems: Patient Active Problem List Diagnosis Date Noted CAD (coronary artery disease) 02/17/2025 HLD (hyperlipidemia) 02/17/2025 Obesity (BMI 30-39.9) 02/17/2025 CKD (chronic kidney disease) stage 2, GFR 60-89 ml/min 01/14/2022 Essential hypertension 01/14/2022 Microalbuminuria 01/14/2022 Type 2 diabetes mellitus with stage 2 chronic kidney disease, with long-term current use of insulin([facility]) 01/14/2022 Medical History: Past Medical History Pertinent Negatives[1] Surgical History: Surgical History[2] Social History: Tobacco: Tobacco Use: Low Risk (03/21/2025) Patient History Smoking Tobacco Use: Never Smokeless Tobacco Use: Never Passive Exposure: Never Alcohol: Alcohol Use: Not At Risk (03/21/2025) AUDIT-C Frequency of Alcohol Consumption: Never Average Number of Drinks: Patient does not drink Frequency of Binge Drinking: Never Illicit drug use: Social History Substance and Sexual Activity Drug Use Never Family History: family history includes Cancer in his father; Diabetes in his mother; Diabetes type II in his mother; Hypertension in his mother; Lung cancer in his father; Stroke in his mother. Allergies: Allergies[3] Medications: Prior to Admission medications Medication Sig [...] time each day. Patient taking differently: Take 120 mg by mouth daily. 08/25/24 Yes Chavez Lambert MD Easy Touch Pen [place] 31G X 8 MM misc 04/18/23 Yes Chavez Lambert MD fenofibrate (Tricor) 145 MG tablet Take 1 tablet by mouth daily. 11/29/22 Yes Chavez Lambert MD gabapentin (Neurontin) 300 MG capsule Take 1 capsule by mouth 2 times a day. Yes Chavez Lambert MD hydroCHLOROthiazide (HYDRODiuril) 25 MG tablet Take by mouth 1 (one) time each day. Yes Chavez Lambert MD Insulin Aspart (NOVOLOG FLEXPEN SC) Inject 30 Units under the skin 3 (three) times a day before meals. Yes Chavez Lambert MD Jardiance 25 MG Take 1 tablet by mouth daily. 04/16/23 Yes Chavez Lambert MD Kerendia 10 MG tablet Take by mouth daily. 04/09/23 Yes Chavez Lambert MD lisinopril 20 MG tablet Take 1 tablet by mouth daily. 05/16/23 Yes Chavez Lambert MD nitroglycerin (Nitrostat) 0.4 MG SL tablet DISSOLVE 1 TABLET UNDER THE TONGUE EVERY 5 MINUTES NEEDED FOR CHEST PAIN. DO NOT EXCEED A TOTAL OF 3 DOSES IN 15 MINUTES. IF NO RELIEF CALL 911. 02/23/25 Yes Chavez Lambert MD omeprazole (PriLOSEC) [address] capsule Take by mouth 1 (one) time each day. Yes Chavez Lambert MD sildenafil (Viagra) 100 MG tablet Take 1 tablet by mouth as needed. 03/31/23 Yes Chavez Lambert MD traMADol (Ultram) 50 MG tablet Take by mouth every 6 hours. Yes Chavez Lambert MD Xarelto 20 MG tablet TAKE 1 TABLET BY MOUTH EVERY EVENING WITH EVENING MEAL 02/23/25 Yes Chavez Lambert MD aspirin 81 MG EC tablet Take 1 tablet (81 mg) by mouth 1 (one) time each day. Patient not taking: Reported on 03/21/2025 Chaevz Lambert MD Lantus SoloStar 100 UNIT/ML injection pen 04/21/23 Chavez Lambert MD nebivolol (Bystolic) 10 MG tablet Take 1 tablet (10 mg) by mouth 1 (one) time each day. Patient not taking: Reported on 03/21/2025 Chavez Lambert MD NovoLOG FLEXPEN 100 UNIT/ML injection pen 04/18/23 Chavez Lambert MD Physical exam: Visit Vitals BP 124/74 Pulse 52 Ht 1.829 m (6') Wt 105 kg (232 lb 7.6 oz) SpO2 97% BMI 31.53 kg/m?? Physical Exam Constitutional: Appearance: Normal appearance. He is obese. HENT: Head: Normocephalic and atraumatic. Right Ear: External ear normal. Left Ear: External ear normal. Nose: Nose normal. Mouth/Throat: Pharynx: Oropharynx is clear. Eyes: Pupils: Pupils are equal, round, and reactive to light. Cardiovascular: Rate and Rhythm: Bradycardia present. Pulses: Normal pulses. Pulmonary: Effort: Pulmonary effort is normal. Abdominal: Palpations: Abdomen is soft. Genitourinary: Comments: Deferred Musculoskeletal: General: Normal range of motion. Cervical back: Normal range of motion. Skin: General: Skin is warm and dry. Capillary Refill: Capillary refill takes less than 2 seconds. Neurological: General: No focal deficit present. Mental Status: He is alert and oriented to person, place, and time. Mental status is at baseline. Psychiatric: Mood and Affect: Mood normal. Behavior: Behavior normal. Thought Content: Thought content normal. Judgment: Judgment normal. Labs in last 18 hours: CBC WBC ?? Hb ?? Plt ?? Hct ?? ANC ?? INR ??, PTT ??, Anti-Xa ?? BMP Na ?? Cl ?? BUN ?? Glu ?? K ?? Co2 ?? Cr ?? Ca ?? iCa ?? Mg ??, Phos ?? Lactate ?? LFT AST ?? AlkPhos ?? T Prot ?? ALK ?? Bili ?? Alb ?? D.Bili ?? Imaging: Pending CXR Cardiac Cath Results: Left Heart Cath from 02/16/2025: Left main artery normal The left anterior descending artery has proximal tendon 20% stenosis followed by an additional concentric hazy 80% stenosis immediately adjacent to a medium sized first diagonal artery and large first septal kier operator. There is additional 30% distal stenosis. [...] by Dr. Gonzalez in regards to recent [facility] with results indicating multi-vessel coronary artery disease. He was subsequently scheduled for coronary artery bypass grafting on 03/22/2025 and he returns to clinic today for pre-op evaluation, xray, labs, and consent. He is posted for first case tomorrow morning with 4 units PRBCs on hold and ancef pre-op. He is negative for interval ROS changes and physical exam is unremarkable. He has been holding his lisinopril since the and his jardiance since the , he discontinued his xarelto pending surgery on 03/15 Plan: - Consented for coronary artery bypass grafting on 03/22/2025 - Case request in - Patient to report to lab and radiology for pre-op labs and chest xray after this - Risks of procedure discussed with patient, risks include but are not limited to infection, poor wound healing, bleeding, stroke, arrhythmias, injury to heart and other organs, and . Additionalrisks related to the use of blood products, including reaction and infection. [1] Past Medical History: Diagnosis Date Chronic kidney disease Coronary artery disease GERD (gastroesophageal reflux disease) Hyperlipidemia Hypertension Type 2 diabetes mellitus [2] Past Surgical History: Procedure Laterality Date CARDIAC CATHETERIZATION 02/16/2025 [3] No Known Allergies documented in this encounter Plan of Treatment Upcoming Encounters Date Type Department Care Team (Late st Contact Info) Description 04/14/2025 3:40 PM EDT Office Visit [facility] Cardiothoracic [address], [address] [place] [address] Musa Rosado MD [address] [facility] [address] [place] [address] 06/13/2025 11:40 AM EDT Office Visit [facility] Nephrology, Bone & Mineral Metabolism [address], [address] [place] [address] Sonia Medley MD [address] [place] [address] documented as of this encounter Goals Goal Patient Goal Type Associated Problems Recent Progress Patient-Stated? 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 Syed APRN documented as of this encounter Visit Diagnoses Diagnosis Coronary artery disease involving pamunkey heart without angina pectoris, unspecified vessel or lesion type- Primary Type 2 diabetes mellitus with stage 2 chronic kidney disease, with long-term current use of insulin ([facility]) CKD (chronic kidney disease) stage 2, GFR 60-89 ml/min Chronic kidney disease, Stage II (mild) Obesity (BMI 30-39.9) documented in this encounter Additional Health Concerns Active Problems Noted Date Diagnosed Date Autogenerated Problem 02/17/2025 Assessment Noted Time A fall risk assessment has been complete d for the patient 03/21/2025 12:53 PM EDT A Body Mass Index follow-up plan has been documented for the patient 03/21/2025 1:17 PM EDT documented as of this encounter Care Teams Dental Nurse Relationship Specialty Start Date End Date David Iverson MD PCP - General 06/06/22 Ludin Gonzalez MD [address] [place] [address] Referring Physician 02/18/25 documented as of this encounter
--- OUTSIDE RECORDS SUMMARY | 2025-03-21 13:23 | XMS_ITS | Encounter Summary ---
Author Organization Healthcare Address [address] [place] [address] Care Team Providers Care Geomatics Professor Name Role Phone David Iverson MD Primary Care Provider [phone] Ludin Gonzalez MD Unavailable [phone] Reason for Visit * Auth/Cert (Routine) Specialty Diagnoses / Procedures Referred By Contac t Referred To Contact Diagnoses Coronary artery disease due to calcified coronary lesion Coronary artery disease due to calcified coronary lesion [I25.10, I25.84] Procedures MS CABG, VEIN, THREE CABG, 2 OR MORE VESSELS Musa Rosado MD [address] [facility] [address] [place] [address] Phone: tel: fax: [facility] A OPERATING ROOM [address] [place] [address] Phone: tel: Referral ID Status Reason Start Date Expiration Date Visits Re quested Visits Authorized [id number] 1 1 Encounter Details Date Type Department Care Team (Latest Contact Info) Description 03/21/2025 1:23 PM EDT - 03/21/2025 11:59 PM EDT Hospital Encounter [facility] [address] [place] [address] Coronary artery disease due to [...] any time in the past [address] [facility], were you homeless or living in a jail (including now)? No 03/23/2025 Utilities Answer Date Recorded In the past 12 months has th e electric, [email or web address], oil, or water [employer] threatened to shut off services in your [...] mouth daily. 08/25/2024 5 Easy Touch Pen [place] 31G X 8 MM misc 04/18/2023 5 [...] Description 04/14/2025 3:40 PM EDT Office Visit [facility] [address], [address] [place] [address] Musa Rosado MD [address] [place] [address] 06/13/2025 11:40 AM EDT Office Visit [facility] Nephrology, Bone & Mineral Metabolism [address], [address] [place] [address] Sonia Medley MD [address] [place] [address] documented as of this encounter Goals Goal Patient Goal Type Associated Problems Recent Progress Patient-Stated? Author Autogenerat ed Goal Care Plan Autogenerated Problem No SyedZulay, SUPERVISOR COMMERCIAL FISH HATCHERY documented as of this encounter Procedures Procedure [...] MD on 03/21/2025 2:58 PM Zulay Syed SUPERVISOR [employer]ERCIAL [employer] HATCHERY IMG XR PROCEDURES Final Resu lt documented [...] documented as of this encounter Care Teams Geomatics Professor Relationship Specialty Start Date End Date David Iverson MD PCP - General 06/06/22 Ludin Gonzalez MD [address] [place] [address] Referring Physician 02/18/25 documented as of this encounter
--- OUTSIDE RECORDS SUMMARY | 2025-03-22 05:35 | XMS_ITS | Encounter Summary ---
Author Organization Healthcare Address [address] [id number] Care Team Providers Care Operations Liaison Name Role Phone David Iverson MD Primary Care Provider [phone] Ludin Gonzalez MD Unavailable [phone] Reason for Referral * Consultation (Routine) - Authorized Specialty Diagnoses / Procedures Referred By Contac t Referred To Contact Cardiac Rehabilitation Diagnoses S/P CABG x 4 Musa Rosado MD [address] [address] Phone: tel: fax: Referral ID Status Reason Start Date Expiration Date V isits Requested Visits Authorized [id number] Authorized 04/05/2025 10/05/2026 1 1 * Consultation (Routine) - Authorized Specialty Diagnoses / Procedures Referred By Contac t Referred To Contact Cardiac Rehabilitation Diagnoses CAD, multiple vessel Musa Rosado MD [address] [address] Phone: tel: fax: [facility] [address], [address] [place] [address] Phone: tel: fax: Referral ID Status Reason Start Date Expiration Date V isits Requested Visits Authorized [id number] Authorized 03/22/2025 09/21/2026 1 1 Reason for Visit * Auth/Cert (Routine) Specialty Diagnoses / Procedures Referred By Jody t Referred To Contact Diagnoses Coronary artery disease due to calcified coronary lesion Coronary artery disease due to calcified coronary lesion [I25.10, I25.84] Procedures TN CABG, VEIN, THREE CABG, 2 OR MORE VESSELS Musa Rosado MD [address] [address] Phone: tel: fax: [facility] [address] [place] [address] Phone: tel: Referral ID Status Reason Start Date Expiration Date Visits Re quested Visits Authorized [id number] 1 1 Encounter Details Date Type Department Care Team (Latest Contact Info) Description 03/22/2025 5:35 AM EDT - 03/30/2025 11:38 AM EDT Hospital Encounter [facility] [address] [place] [address] Musa Rosado MD [address] [address] CAD, multiple vessel (Primary Dx); S/P CABG x 4 Discharge Disposition: Home or Self Care Social [...] money to buy more. Never true 03/23/20 Within the past 12 months, t he [...] any time in the past 12 m [facility], were you homeless or living in a penitentiary (including now)? No 03/23/2025 Utilities Answer Date Recorded In the past 12 months has th e [employer], gas, oil, or water company threatened to shut off services in your [...] Sign Reading Time Taken Comments Blood Pressure 110/57 03/30/2025 7:40 AM EDT Pulse 78 03/30/2025 7:40 AM EDT Temperature 36.8 C (98.3 F) 03/30/2025 7:40 AM EDT Respiratory Rate 18 03/30/2025 7:40 AM EDT Oxygen Saturation 95% 03/30/2025 7:40 AM EDT Inhaled Oxygen Concentration - - Weight 103 kg (227 lb 4.7 oz) 03/30/2025 5:36 AM EDT Height 182.9 cm (6') 03/22/2025 6:17 AM EDT Body Mass Index 30.83 03/22/2025 6:17 AM EDT documented in this encounter Functional Status [...] Date of Assessment Author No Risk Indicated 03/29/2025 8:00 PM EDT Александр Roca RN * Question Answer Date of Assessment Author 1. Wish to be (Past 1 Month) No 025 8:00 PM EDT Afshan Roca RN 2. Non-Specific Active Suici beverley Thoughts (Past 1 Month) No 03/29/2025 8:00 PM EDT Cait Roca RN 6. Suicidal Behavior (Lifetime) No 8:00 PM EDT Afshan Roca RN documented as of this [...] up to 3 days. 18 tablet 03/30/2025 documented as of this encounter Miscellaneous Notes * Progress Notes - Afshan Hannah Vero - 03/30/2025 11:38 AM EDT Case Management Discharge Note Lizandro Gr 45 y.o. male CSN: [id number] Admission: 03/22/2025 5:35 AM Primary Problem: CAD (coronary artery disease) Primary Air Breaker Operator: Primary Caregiver: Self Assistance Available at Discharge: Availability of Care Givers (#Hours): Other (comment) (as needed) Family/Air Breaker Operator(s) Willingness Assessed to care for patient at home: Yes Family/Air Breaker Operator(s) Readiness Assessed to care for patient at home: Yes Housing Circumstances-Z Codes: Housing Circumstances (select all that apply): None Applicable Patient Referred to Financial or Community Resources: Financial Resources: Other (Comment) (n/a) Discharge Facility/Level of Care Needs: Discharge Facility/Level of Care Needs: 1-Home or Self Care Patient's Choice of Community Agency(s): Patient's Choice of Community Agency(s): n/a Patient/Family Anticipated Services at Transition: Patient/Family Anticipated Services at Transition: durable medical equipment DME/Equipment Needed after Discharge: Equipment Currently Used at Home: none Equipment Needed After Discharge: walker, rollator Readmission Within the Last 30 Days: Readmission Within the Last 30 Days: no previous admission in last 30 days Medicare Documentation: Medicare Second Notice?: Yes Date Second Notice Completed: 03/30/25 Time Second Notice Completed: 1048 Medicare Second Notice Recieved By: Pt's s/o Follow-up: [facility] [address], [address] [facility] [address] Raya Woods APRN [facility] [address] Go on 05/25/2025 Your appointment time is 10:30am Please arrive 15 minutes early and bring UPDATED medication list Discharge Transportation: Transportation Anticipated: family or friend will provide Transportation Home at Discharge: Family/Friend will Provide Follow Up Transport: Transportation Needed to Follow up Appoinments: Family/Friend will Provide Additional Comments: SW spoke with primary team this date who indicate the pt is medically stable for DC this date and does not require further [facility]-based care. SW met with pt's s/o at bedside as pt was in shower at timeof visit. SW confirmed pt had received rollator ordered previously by RNCM. Pt and s/o amenable with DC plan. Pt to DC home with s/o, s/o to transport. No further SW concerns identified at this time. SW will continue to remain available and will follow up with DC planning and needs as appropriate. GEORGETTE Donaldson * Jh Sol LeungMikayla Александр - 03/30/2025 10:52 AM EDT Images from the original note were not included. [id number] Insulin Aspart (rDNA Origin) Injection Brand Name(s): Fiasp??, NovoLog??, NovoLog?? Mix 70/30, Ryzodeg?? 70/30 (as a combination product containing Insulin Aspart and Insulin Degludec) ?? This branded product is no longer on the market. Generic alternatives may be available. WHY is this medicine prescribed? Insulin aspart is used to treat type 1 diabetes (condition in which the body does not produce insulin and therefore cannot control the amount of sugar in the blood) in adults and children. It is alsoused to treat people with type 2 diabetes (condition in which the body does not use insulin normally and therefore cannot control the amount of sugar in the blood) who need insulin to control their diabetes. In patients with type 1 diabetes, insulin aspart is usually used with another type of insulin, unless it is used in an external insulin pump. In patients with type 2 diabetes, insulin aspart also may be used with another type of insulin or with oral medication(s) for diabetes. Insulin aspart is a short-acting, manmade version of human insulin. Insulin aspart works by replacing the insulinthat is normally produced by the body and by helping move sugar from the blood into other body tissues where it is used for energy. It also stops the liver from producing more sugar. Over time, people who have diabetes and high blood sugar can develop serious or life-threatening complications, including heart disease, stroke, kidney problems, nerve damage, and eye problems. Usingmedication(s), making lifestyle changes (e.g., diet, exercise, quitting smoking), and regularly checking your blood sugar may help to manage your diabetes and improve your health. This therapy may also decrease your chances of having a heart attack, stroke, or other diabetes-related complications such as kidney failure, nerve damage (numb, cold legs or feet; decreased sexual ability in men and women), eye problems, including changes or loss of vision, or gum disease. Your doctor and other healthcare providers will talk to you about the best way to manage your diabetes. HOW should this medicine be used? Insulin aspart comes as a solution (liquid; Fiasp, NovoLog) and a suspension (liquid with particlesthat will settle on standing; NovoLog Mix 70/30) to inject subcutaneously (under the skin). Insulinaspart solution (NovoLog) is usually injected 5-10 minutes before eating a meal. If you are using insulin aspart suspension (NovoLog Mix 70/30) to treat type 1 diabetes, it is usually injected minutes before a meal. If you are using insulin aspart suspension to treat type 2 diabetes, it is usually injected within 15 minutes before or after a meal. Insulin aspart solution (Fiasp) is usually injected at the start of a meal or within 20 minutes after starting a meal. Your doctor will tell you how many times you should inject insulin aspart each day. Follow the directions on your prescription label carefully, and ask your doctor or pharmacist to explain any part you do not understand.Use insulin aspart exactly as directed. Do not use more or less of it or use it more often than prescribed by your doctor. Insulin aspart solution (Fiasp, NovoLog) may also be injected intravenously (into a vein) by a doctor or nurse in a healthcare setting. A doctor or nurse will carefully monitor you for side effects. Never use insulin aspart when you have symptoms of hypoglycemia (low blood sugar) or if you have checked your blood sugar and found it to be low. Insulin aspart controls diabetes but does not cure it. Continue to use insulin aspart even if you feel well. Do not stop using insulin aspart without talking to your doctor. Do not switch to another brand or type of insulin or change the dose of any type of insulin you are using without talking to your doctor. Always check the insulin label to make sure you received the right type of insulin from the pharmacy. Insulin aspart comes in vials, cartridges that contain medication and are to be placed in dosing pens, and dosing pens that contain cartridges of medication. Be sure you know what type of container your insulin aspart comes in and what other supplies, such as needles, syringes, or pens, you will need to inject your medication. If your insulin aspart comes in vials, you will need to use syringes to inject your dose. Ask your doctor or pharmacist to show you how to inject insulin aspart using a syringe. Ask your doctor or pharmacist if you have questions about the type of syringe you should use. If your insulin aspart comes in cartridges, you will need to buy an insulin pen separately. Check the director of healthcare systems's information for the patient to see what type of pen is right for the cartridge size you are using. Carefully read the instructions that come with your pen, and ask your doctor or pharmacist to show you how to use it. Ask your doctor or pharmacist if you have questions about the type of pen you should use. If your insulin aspart comes in pens, be sure to read and understand the director of healthcare systems's instructions. If you are blind or have poor eyesight, do not use this pen without help. Ask your doctor or pharmacist to show you how to use the pen. Follow the directions carefully, and always prime the pen before use. Never reuse needles or syringes and never share needles, syringes, cartridges, or pens. If you are using an insulin pen, always remove the needle right after you inject your dose. Discard needles andsyringes in a puncture-resistant container. Ask your doctor or pharmacist how to dispose of the puncture- resistant container. Your doctor may tell you to mix your insulin aspart solution with another type of insulin (NPH insulin) in the same syringe. Your doctor will tell you exactly how to do this. Always draw insulin aspart into the syringe first, always use the same brand of syringe, and always inject the insulin immediately after mixing. Insulin aspart solution should not be mixed with insulin preparations other than NPH insulin. Insulin aspart suspension should not be mixed with any other insulin preparations. Your doctor may tell you to dilute insulin aspart before injection to allow easier measurement of your dose. Your doctor will tell you exactly how to do this. You can inject your insulin aspart in your thighs, stomach, upper arms, or buttocks. Never inject insulin aspart into a muscle. Change (rotate) the injection site within the chosen area with each dose; try to avoid injecting the same site more often than once every 1-2 weeks. Do not inject where the skin is thick, lumpy, tender, bruised, scaly, hard, or into areas of skin where there are scars orskin is damaged. Always look at your insulin aspart before you inject it. If you are using insulin aspart solution, the insulin should be clear and colorless. Do not use this type of insulin aspart if it is colored, cloudy, thickened, or contains solid particles. If you are using insulin aspart suspension, the insulin should appear cloudy or milky after you mix it. Do not use this type of insulin if there are clumps in the liquid or if there are solid white particles sticking to the bottom or esteves of the bottle. Do not use any type of insulin after the expiration date printed on the bottle has passed. Insulin aspart suspension must be rolled gently between your hands to mix before use. Do not shake insulin aspart suspension. Ask your doctor or pharmacist if the type of insulin you are using shouldbe mixed and how you should mix it if necessary. Insulin aspart solution also can be used with an external insulin pump. Before using insulin aspartin a pump system, read the pump label to make sure the pump can be used for continuous delivery of fast-acting insulin. Read the pump manual for recommended reservoir and tubing sets, and ask your doctor or pharmacist to show you how to use the insulin pump. Do not dilute insulin aspart or mix it wi th any other type of insulin when using it in an external insulin pump. When using insulin aspart with an external insulin pump, replace the insulin in the reservoir at least every 6 days (Fiasp), atleast every 7 days (Novolog), or according to the pump manual, whichever is shorter. Talk to your doctor or pharmacist about when you should change the infusion set and infusion set insertion site. If the infusion site is red, itchy, or thickened, tell your doctor and use a different infusion site. When using insulin apart solution in an external insulin pump, high blood sugar may occur quickly if the pump stops working properly or if the insulin in the pump reservoir is exposed to direct sunlight or temperatures greater than 98.6??F (37??C). High blood sugar may also occur if the tubing leaks or becomes blocked, disconnected, or kinks. If the problem cannot be found quickly and corrected, call your doctor right away. You may need to temporarily use insulin by subcutaneous injection (using syringes or an insulin pen). Make sure you have back-up insulin and any necessary supplies on hand, and ask your doctor or pharmacist to show you how to use them. Ask your pharmacist or doctor for a copy of the director of healthcare systems's information for the patient. Are there OTHER USES for this medicine? This medication may be prescribed for other uses; ask your doctor or pharmacist for more information. What SPECIAL PRECAUTIONS should I follow? Before using insulin aspart, ? tell your doctor and pharmacist if you are allergic to insulin (Humulin, Novolin, others), any ofthe ingredients of insulin aspart, or any other medications. Ask your pharmacist or check the director of healthcare systems's patient information for a list of the ingredients. ? tell your doctor and pharmacist what prescription and nonprescription medications, vitamins, nutritional supplements, and herbal products you are taking. Your doctor may need to change the doses ofyour medications or monitor you carefully for side effects. ? The following nonprescription or herbal products may interact with insulin aspart injection: Aspirin or magnesium salicylate (Doaleksandar, others). Be sure to let your doctor and pharmacist know that youare using these medications before you start using insulin aspart injection. Do not start these medications while using insulin aspart injection without discussing with your healthcare provider. ? tell your doctor if you have vision problems or if you have or have ever had nerve damage caused by your diabetes; heart failure; or if you have any other medical conditions, including heart, kidney, or liver disease. ? tell your doctor if you are , plan to become , or are . If you become while using insulin aspart, call your doctor. ? if you are having surgery, including dental surgery, tell the doctor or dentist that you are using insulin aspart. ? alcohol may cause a change in blood sugar. Ask your doctor about the safe use of alcoholic beverages while you are using insulin aspart. ? ask your doctor what to do if you get sick, experience unusual stress, or change your diet, exercise, or activity schedule. These changes can affect your dosing schedule and the amount of insulin you will need. ? ask your doctor how often you should check your blood sugar. Be aware that hypoglycemia may affect your ability to perform tasks such as driving and ask your doctor if you need to check your blood sugar before driving or operating machinery. What SPECIAL DIETARY instructions should I follow? Be sure to follow all exercise and dietary recommendations made by your doctor or dietitian. It is important to eat a healthful diet, and to eat about the same amounts of the same kinds of food at about the same times each day. Skipping or delaying meals or changing the amount or kind of food you eat can cause problems with your blood sugar control. What should I do IF I FORGET to take a dose? Insulin aspart must be injected shortly before or after a meal. If you remember your dose before orshortly after your meal, inject the missed dose right away. If some time has passed since your meal, follow the instructions provided by your doctor or call your doctor to find out whether you shouldinject the missed dose. Do not inject a double dose to make up for a missed one. What SIDE EFFECTS can this medicine cause? Some side effects can be serious. If you experience any of these symptoms, call your doctor immediately or get emergency treatment: ? rash and/or itching over the whole body ? shortness of breath ? wheezing ? dizziness ? blurred vision ? fast heartbeat ? sweating ? weakness, fatigue, constipation, muscle cramps, or abnormal heartbeat ? large weight gain in a short period of time ? swelling of the arms, hands, feet, ankles, or lower legs Insulin aspart may cause other side effects. Call your doctor if you have any unusual problems while using this medication. If you experience a serious side effect, you or your doctor may send a report to the Food and Drug Administration's (FDA) MedWatch Adverse Event Reporting program online (https://www.fda.gov/Safety/MedWatch) or by phone ( ). What should I know about STORAGE and DISPOSAL of this medication? Keep this medication in the container it came in and out of reach of children. Store unopened insulin aspart vials, cartridges, and pens in the refrigerator, but do not freeze them. Unopened refrigerated insulin aspart can be stored until the date shown on the company's label. If a refrigerator is unavailable (for example, when on vacation), store the unopened vials, cartridges, or pens at room temperature and away from direct sunlight and extreme heat. Unrefrigerated unopened vials, cartridges, and pens of insulin aspart solution (Fiasp, NovoLog) can be used within 28 days, but after that time they must be discarded. Unrefrigerated unopened vials of insulin aspart suspension (NovoLog 70/30) can be used within 28 days and unrefrigerated, unopened pens can be used within 14 days; after that time they must be discarded. Opened vials of insulin aspart solution (Fiasp, Novolog) can be stored for 28 days at room temperature or in the refrigerator. If your doctor tells you to dilute your insulin aspart (Novolog), the vial of diluted medication can be stored for up to 28 days in the refrigerator or at room temperature.Opened insulin aspart solution (Novolog) cartridges and pens may be stored at room temperature for up to 28 days; do not refrigerate them. Opened pens containing NovoLog Mix 70/30 may be stored at room temperature for up to 14 days; do not refrigerate them. Opened insulin aspart solution (Fiasp) pens can be stored at room temperature or in the refrigerator for up to 28 days. Discard any insulin aspart product that has been exposed to extreme heat or cold. Keep all medication out of sight and reach of children as many containers are not child-resistant. Always lock safety caps. Place the medication in a safe location - one that is up and away and out of their sight and reach. https://www.upandaway.org Dispose of unneeded medications in a way so that pets, children, and other people cannot take them.Do not flush this medication down the toilet. Use a medicine take-back program. Talk to your pharmacist about take-back programs in your community. Visit the FDA's Safe Disposal of Medicines website h ttps://goo.gl/c4Rm4p for more information. What should I do in case of OVERDOSE? In case of overdose, call the poison control helpline at . Information is also available online at https://www.poisonhelp.org/help. If the victim has collapsed, had a seizure, has trouble breathing, or can't be awakened, immediately call emergency services at 911. Insulin aspart overdose can occur if you use too much insulin aspart or if you use the right amountof insulin aspart but eat less than usual or exercise more than usual. Insulin aspart overdose can cause hypoglycemia. If you have symptoms of hypoglycemia, follow your doctor's instructions for whatyou should do if you develop hypoglycemia. Other symptoms of overdose: ? loss of consciousness ? seizures What OTHER INFORMATION should I know? Keep all appointments with your doctor and the laboratory. Your blood sugar and glycosylated hemoglobin (HbA1c) should be checked regularly to determine your response to insulin aspart. Your doctor will also tell you how to check your response to this medication by measuring your blood sugar levelsat home. Follow these instructions carefully. You should always wear a diabetic identification bracelet to be sure you get proper treatment in anemergency. Do not let anyone else use your medication. Ask your pharmacist any questions you have about refilling your prescription. Keep a written list of all of the prescription and nonprescription ([id number]-jhxdegi) medicines, vitamins, minerals, and dietary supplements you are taking. Bring this list with you each time you visit a doctor or if you are admitted to the hospital. You should carry the list with you in case of dallin rgencies. This report on medications is for your information only, and is not considered individual patient advice. Because of the changing nature of drug information, please consult your physician or pharmacist about specific clinical use. The [employer] represents that the information provided hereunder was formulated with a reasonable standard of care, and in conformity with professional standards in the field. The [employer] makes no representations or warranties, express or implied, including, but not limited to, any implied warranty of merchantability and/or fitness for a particular purpose, with respect to such information and specifically disclaims all such warranties. Users are advised that decisions regarding drug therapy are complex medical decisions requiring the independent, informed decision of an appropriate health healthcare administrative assistant, and the information is provided for informational purposes only. The entire monograph for a drug should be reviewed for a thorough understanding of the drug's actions, uses and side effects. The [employer] does not endorse or recommend the use of any drug.The information is not a substitute for medical care. [facility]?? Patient Medication Information?. ?? Copyright, 2023. The [employer]??, [address], [address], [place], [place]. All Rights Reserved. Duplication for commercial use must be authorized by [facility]. Selected Revisions: May 20, 2023. AHFS?? Patient Medication Information?. ?? Copyright, 2024 * Jh Horton - Mikayla Leung - 03/30/2025 10:52 AM EDT 1087 Oxycodone Oral Tablet, Immediate Release Brand Names: Oxaydo, Roxicodone What is this medicine? Oxycodone (mh-n-ABF-done) is an opioid pain reliever. It is used to treat moderate to severe pain. What should I tell my health care provider before I take this medicine? They need to know if you have any of these conditions: ? Troy's disease ? Brain tumor or head injury ? Personal or family history of drug abuse or addiction ? Heart disease ? Frequent alcohol use ? Kidney disease ? Liver disease ? Lung disease, asthma, or breathing problems ? Depression, anxiety, or other psychiatric disease ? Allergy or unusual reaction to oxycodone, acetaminophen or other pain relievers ? , trying to get , or How should I use this medicine? Take this medicine as prescribed by your doctor, and follow the directions on the prescription label. ? Take this medicine as prescribed by your doctor. Follow the directions on the prescription label. ? Do not take this medicine more often than directed. ? This medicine should be taken with a full glass of water. ? If it upsets your stomach, you may take it with food. You do not have to take this medicine with food. ? Do not crush, cut, chew, lick, wet, soak, or otherwise manipulate a tablet before taking. ? Do not share this medicine with others. This medicine is only for you. ? The pharmacy will give you a special medication guide each time you black pickler this medicine. ? Overdosage: Taking too much of this medicine can be deadly. Your doctor may prescribe another medicine with this medicine to treat an accidental overdose. If you think you have taken too much of this medicine, call 911 immediately. What if I miss a dose? If you miss a dose, you may take it as soon as you remember. If it is almost time for your next dose, take only that dose. Do not take double or extra doses. What may interact with this medicine? ? Alcohol ? Medicines for sleep, depression, anxiety, or psychiatric diseases ? Seizure medicines like gabapentin, pregabalin, phenytoin, or phenobarbital ? Other pain medicines like tramadol, hydrocodone, fentanyl, or morphine ? Muscle relaxers ? Certain nausea medicines like chlorpromazine or promethazine ? Cannabinoids like droperidol ? Certain antibiotics like erythromycin, clarithromycin, rifampin, ritonavir, voriconazole, or ketoconazole ? Allergy medicines like diphenhydramine This list may not describe all possible interactions. Give your health care provider a list of all the medicines, herbs, non-prescription drugs, or dietary supplements you use. Also tell them if you smoke, drink alcohol, or use illegal drugs. Some items may interact with your medicine. What should I watch for while using this medicine? ? Before you start taking this medicine, talk with your doctor about how long you should be on thismedicine. You should also talk to your doctor about other things you can do to treat pain, including other medicines or non-drug treatments like meditation or acupuncture. While taking this medicine,tell your doctor if your pain does not go away or gets worse or if you have a new or different typeof pain. ? It is possible you could become dependent on this medicine. The risk of dependence increases the longer you are on the medicine. Dependence is not addiction; however, if you have a personal or family history of addiction, you are at higher risk for becoming addicted to this medicine. Talk to yourdoctor if you are worried about dependence or addiction. ? If you take this medicine for a long time and suddenly stop taking this medicine, you may withdraw from this medicine. Withdrawal from this medicine may cause sweating, pain, diarrhea, anxiety, tremor, and other symptoms. Stopping the medicine slowly can reduce withdrawal symptoms. ? This medicine may cause dizziness or drowsiness, especially when you change doses or first start the medicine. Do not drive, use machinery, or do anything dangerous until you know how your body reacts to this medicine. ? This medicine causes constipation. Unless your doctor tells you not to, you should take a stool softener while on this medicine. Tell your doctor if you have not had a bowel movement in 3 or more days while on this medicine. ? This medicine can also cause dry mouth. Drinking water, chewing gum, or sucking on hard candy canhelp. It is important to keep regular dentist appointments. What side effects may I notice from receiving this medicine? Side effects that you should report to your doctor or health healthcare administrative assistant as soon as possible: ? allergic reactions like skin rash, itching or hives, swelling of the face, lips, or tongue ? breathing problems ? confusion ? craving for the medicine or withdrawal symptoms with a missed dose ? feeling faint or lightheaded, falls ? trouble passing urine or change in the amount of urine ? unusually weak or tired Side effects that usually do not require medical attention (report to your doctor or health healthcare administrative assistant if they continue or are bothersome): ? constipation ? dry mouth ? itching ? nausea, vomiting ? upset stomach This list may not describe all possible side effects. Call your doctor for medical advice about side effects. You may report side effects to FDA at 1-620-OIP-1217. Where should I keep my medicine? This medicine should be kept in a locked cabinet away from children and protected from theft. This medicine can be abused. Do not share this medicine with anyone. Selling or giving away this medicineis against the law. Store at room temperature (60-80??F) in a dry place that is protected from light. Do not save unused medicine that is no longer needed. Unused medicine should be taken to a proper disposal location. To find a disposal location, visit [employer]/[place]. If you cannot take unused medicine to a proper location, you can mix the medicine with coffee grounds or max litter and dispose of in the normal trash. Your doctor may also give you a special disposal pouch for this medicine. You can also flush the medicine down the toilet. * Jh OnIR - Mikayla Leung - 03/30/2025 10:51 AM EDT Images from the original note were not included. [id number] Senna Brand Name(s): Black Nidia??, Ex-Lax??, Nelson's Castoria??, Nature's Remedy??, Perdiem Overnight Relief??, Senexon??, Senna X-Prep??, Senokot??, Correctol 50 Plus?? (as a combination product containing Docusate, Sennosides), Ex-Lax Gentle Strength?? (as a combination product containing Docusate, Sennosides), Gentlax S?? (as a combination product containing Docusate, Sennosides), Lisa-Colace?? (as a combination product containing Docusate, Sennosides), Senokot S?? (as a combination product containing Docusate, Sennosides); also available generically sennosides ?? This branded product is no longer on the market. Generic alternatives may be available. WHY is this medicine prescribed? Senna is used on a short-term basis to treat constipation. It also is used to empty the bowels before surgery and certain medical procedures. Senna is in a class of medications called stimulant laxatives. It works by increasing activity of the intestines to cause a bowel movement. HOW should this medicine be used? Senna comes as a liquid, powder, granules, chewable pieces, and tablets to take by mouth. It is maybe taken once or twice daily. Senna normally causes a bowel movement within 6 to 12 hours, so it may be taken at bedtime to produce a bowel movement the next day. Do not take senna for more than 1 week without talking to your doctor. Follow the directions on your package or prescription label [facility], and ask your doctor or pharmacist to explain any part you do not understand. Take senna exactly as directed. Frequent or continued use of senna may make you dependent on laxatives and cause yourbowels to lose their normal activity. If you do not have a regular bowel movement after taking senna, do not take any more medication and talk to your doctor. If you are taking certain senna products (Ex-Lax?? regular ormaximum strength tablets or Perdiem Overnight Relief), swallow the pills whole with a glass of water; do not split, chew, or crush them. Are there OTHER USES for this medicine? This medication may be prescribed for other uses; ask your doctor or pharmacist for more information. What SPECIAL PRECAUTIONS should I follow? Before taking senna, ? tell your doctor and pharmacist if you are allergic to senna, any other medications, or any of the ingredients in these senna products. Ask your pharmacist for a list of the ingredients. ? tell your doctor and pharmacist what prescription and nonprescription medications, vitamins, nutritional supplements, and herbal products you are taking or plan to take while taking senna. Your doctor may need to change the doses of your medications or monitor you carefully for side effects.. ? take certain senna products (Ex-Lax??, Perdiem Overnight Relief) at least 2 or more hours before or after taking other medications by mouth; some senna products may affect how other medications work. ? the following nonprescription product may interact with senna: mineral oil. Be sure to let your doctor and pharmacist know that you are taking this medication before you start taking senna. Do not start this medication while taking senna without discussing with your healthcare provider. ? tell your doctor if you have stomach pain, nausea, vomiting, or a sudden change in bowel movements lasting more than 2 weeks. ? tell your doctor if you are , plan to become , or are breast- feeding. If you become while taking senna, call your doctor. ? talk to your doctor about the risks and benefits of taking senna if you are 65 years of age or older. Older adults should not usually take senna products over a long period of time because they arenot as safe as other medications that can be used to treat the same condition. What SPECIAL DIETARY instructions should I follow? A regular diet and exercise program is important for regular bowel function. Eat a high-fiber diet and drink plenty of liquids (eight glasses) each day as recommended by your doctor. What should I do IF I FORGET to take a dose? This medication usually is taken as needed. If your doctor has told you to take senna regularly, take the missed dose as soon as you remember it. However, if it is almost time for the next dose, skipthe missed dose and continue your regular dosing schedule. Do not take a double dose to make up fora missed one. What SIDE EFFECTS can this medicine cause? Some side effects can be serious. If you experience this symptom, stop taking senna and call your doctor immediately: ? rectal bleeding Senna may cause other side effects. Call your doctor if you have any unusual problems while taking this medication. If you experience a serious side effect, you or your doctor may send a report to the Food and Drug Administration's (FDA) MedWatch Adverse Event Reporting program online (https://www.fda.gov/Safety/MedWatch) or by phone ( ). What should I know about STORAGE and DISPOSAL of this medication? Keep this medication in the container it came in, tightly closed, and out of reach of children. Store it at room temperature and away from excess heat and moisture (not in the bathroom). Keep all medication out of sight and reach of children as many containers are not child-resistant. Always lock safety caps. Place the medication in a safe location - one that is up and away and out of their sight and reach. https://www.[employer].org Dispose of unneeded medications in a way so that pets, children, and other people cannot take them.Do not flush this medication down the toilet. Use a medicine take-back program. Talk to your pharmacist about take-back programs in your community. Visit the FDA's Safe Disposal of Medicines website h ttps://goo.gl/c4Rm4p for more information. What should I do in case of OVERDOSE? In case of overdose, call the poison control helpline at . Information is also available online at https://www.poisonhelp.org/help. If the victim has collapsed, had a seizure, has trouble breathing, or can't be awakened, immediately call emergency services at 911. What OTHER INFORMATION should I know? Ask your pharmacist any questions you have about senna. Keep a written list of all of the prescription and nonprescription (kbfq-rwz-vpsngxs) medicines, vitamins, minerals, and dietary supplements you are taking. Bring this list with you each time you visit a doctor or if you are admitted to the hospital. You should carry the list with you in case of dallin rgencies. This report on medications is for your information only, and is not considered individual patient advice. Because of the changing nature of drug information, please consult your physician or pharmacist about specific clinical use. The [employer] represents that the information provided hereunder was formulated with a reasonable standard of care, and in conformity with professional standards in the field. The [employer] makes no representations or warranties, express or implied, including, but not limited to, any implied warranty of merchantability and/or fitness for a particular purpose, with respect to such information and specifically disclaims all such warranties. Users are advised that decisions regarding drug therapy are complex medical decisions requiring the independent, informed decision of an appropriate health healthcare administrative assistant, and the information is provided for informational purposes only. The entire monograph for a drug should be reviewed for a thorough understanding of the drug's actions, uses and side effects. The [employer] does not endorse or recommend the use of any drug.The information is not a substitute for medical care. AHFS?? Patient Medication Information?. ?? Copyright, 2023. The [employer]??, [address], [address], [place], [place]. All Rights Reserved. Duplication for commercial use must be authorized by [facility]. Selected Revisions: March 25, 2024. AHFS?? Patient Medication Information?. ?? Copyright, 2024 * Jh Horton - Mikayla Leung - 03/30/2025 10:51 AM EDT Images from the original note were not included. 798 Narcan Nasal [place]: Rescue Guide for Opioid Overdose Step 1 Check for signs of overdose. Think someone had opioid overdose? Shout their name and ask Are you OK? Try shaking them by the shoulders or rubbing the middle of the chest. Signs of overdose are: ? No response or does not wake up. ? Breathing is slow, odd, or has stopped. ? Center of the eye (pupil) is very small. If you see any of these signs, go to Step 2. Step 2 Give the medicine. 1. Lay the person flat on the back. 2. Get the Narcan nasal spray. Peel back the tab to remove the bottle. 3. Hold the bottle as shown. 4. Put your free hand behind the person?s neck. Gently lift to tilt the head back. 5. Place the nozzle inside one nostril until your fingers touch the nose. 6. Press the plunger with your thumb to spray. Then remove from the nostril. Step 3 Call 911 for help and watch the person. ? Call 911 for emergency help. ? Have the person lay on their side as shown. ? Look for a response. The person may wake up, breathe normally, or respond to touch or voice. ? If there is no response for 2-3 minutes after giving the spray, give another - if you have extra spray bottles. In that case, repeat Step 2 then move them back on to their side. ? You can repeat this every 2-3 minutes until help arrives or the person responds. ? Use this medicine only if you know or suspect the person has opioid overdose. ? Do not open the Narcan package until you need to use it. ? Only for use in the nose. * Mikayla Cortez - 03/30/2025 10:51 AM EDT Images from the original note were not included. Lopressor - Video Learn how Lopressor helps your heart to beat more easily, possible side effects to look for, and how to use and store this medication safely. To view the video go to this web address: [email or web address] Or, scan this QR code with your smart phone ?? [employer] [facility] * Mikayla Cortez - 03/30/2025 10:51 AM EDT Images from the original note were not included. [id number] Methocarbamol Brand Name(s): Robaxin??; also available generically ?? This branded product is no longer on the market. Generic alternatives may be available. WHY is this medicine prescribed? Methocarbamol is used with rest, physical therapy, and other measures to relax muscles and relieve pain and discomfort caused by strains, sprains, and other muscle injuries. Methocarbamol is in a class of medications called muscle relaxants. It works by slowing activity in the nervous system to allow the body to relax HOW should this medicine be used? Methocarbamol comes as a tablet to take by mouth. It usually is taken four times a day at first, then it may be changed to three to six times a day. Follow the directions on your prescription label carefully, and ask your doctor or pharmacist to explain any part you do not understand. Take methocarbamol exactly as directed. Do not take more or less of it or take it more often than prescribed by your doctor. Are there OTHER USES for this medicine? This medication may be prescribed for other uses. Ask your doctor or pharmacist for more information. What SPECIAL PRECAUTIONS should I follow? Before taking methocarbamol, ? tell your doctor and pharmacist if you are allergic to methocarbamol, any other medications or any of the ingredients in methocarbamol tablets. Ask your doctor or pharmacist for a list of the ingredients. ? tell your doctor and pharmacist what prescription and nonprescription medications, vitamins, nutritional supplements, and herbal products you are taking or plan to take while taking methocarbamol. Your doctor may need to change the doses of your medications or monitor you carefully for side effects. ? tell your doctor if you are , plan to become , or are breast- feeding. If you become while taking methocarbamol, call your doctor. ? talk to your doctor about the risks and benefits of taking methocarbamol if you are 65 years of age or older. Older adults should not usually take methocarbamol because it is not as safe or as effective as other medications that can be used to treat the same condition. ? you should know that this medication may make you drowsy. Do not drive a car or operate machineryuntil you know how methocarbamol affects you. ? talk to your doctor about the safe use of alcohol during your treatment with this medication. Alcohol can make the side effects of methocarbamol worse. What SPECIAL DIETARY instructions should I follow? Unless your doctor tells you otherwise, continue your normal diet. What should I do IF I FORGET to take a dose? Take the missed dose as soon as you remember it. However, if it is almost time for the next dose, skip the missed dose and continue your regular dosing schedule. Do not take a double dose to make up for a missed one. What SIDE EFFECTS can this medicine cause? If you experience either of the following symptoms, call your doctor immediately: ? rash ? itching Methocarbamol may cause other side effects. Call your doctor if you have any unusual problems whileyou are taking this medication. If you experience a serious side effect, you or your doctor may send a report to the Food and Drug Administration's (FDA) MedWatch Adverse Event Reporting program online (https://www.fda.gov/Safety/MedWatch) or by phone ( ). What should I know about STORAGE and DISPOSAL of this medication? Keep this medication in the container it came in, tightly closed, and out of reach of children. Store it at room temperature and away from excess heat and moisture (not in the bathroom). Dispose of unneeded medications in a way so that pets, children, and other people cannot take them.Do not flush this medication down the toilet. Use a medicine take-back program. Talk to your pharmacist about take-back programs in your community. Visit the FDA's Safe Disposal of Medicines website h ttps://goo.gl/c4Rm4p for more information. Keep all medication out of sight and reach of children as many containers are not child-resistant. Always lock safety caps. Place the medication in a safe location - one that is up and away and out of their sight and reach. https://www.upandaway.org What should I do in case of OVERDOSE? In case of overdose, call the poison control helpline at . Information is also available online at https://www.poisonhelp.org/help. If the victim has collapsed, had a seizure, has trouble breathing, or can't be awakened, immediately call emergency services at 911. What OTHER INFORMATION should I know? Keep all appointments with your doctor. Do not let anyone else take your medication. Ask your pharmacist any questions you have about refilling your prescription. Keep a written list of all of the prescription and nonprescription (xvvt-xaa-ibgwgkc) medicines, vitamins, minerals, and dietary supplements you are taking. Bring this list with you each time you visit a doctor or if you are admitted to the hospital. You should carry the list with you in case of dallin rgencies. This report on medications is for your information only, and is not considered individual patient advice. Because of the changing nature of drug information, please consult your physician or pharmacist about specific clinical use. The [employer] represents that the information provided hereunder was formulated with a reasonable standard of care, and in conformity with professional standards in the field. [employer] makes no representations or warranties, express or implied, including, but not limited to, any implied warranty of merchantability and/or fitness for a particular purpose, with respect to such information and specifically disclaims all such warranties. Users are advised that decisions regarding drug therapy are complex medical decisions requiring the independent, informed decision of an appropriate health healthcare administrative assistant, and the information is provided for informational purposes only. The entire monograph for a drug should be reviewed for a thorough understanding of the drug's actions, uses and side effects. The [employer] does not endorse or recommend the use of any drug.The information is not a substitute for medical care. AHFS?? Patient Medication Information?. ?? Copyright, 2023. [employer]??, [address], [address], [place], [place]. All Rights Reserved. Duplication for commercial use must be authorized by [facility]. Selected Revisions: May 20, 2017. AHFS?? Patient Medication Information?. ?? Copyright, 2024 * [facility] - Mikayla Leung - 03/30/2025 10:50 AM EDT Images from the original note were not included. [id number] Furosemide Brand Name(s): Lasix??; also available generically ?? This branded product is no longer on the market. Generic alternatives may be available. WHY is this medicine prescribed? Furosemide is used alone or with other medications to treat high blood pressure. Furosemide is usedto treat edema excess fluid held in body tissues caused by various medical problems. Furosemide is in a class of medications called diuretics ('water pills'). It works by causing the kidneys to get rid of unneeded water and salt from the body. High blood pressure is a common condition. When not treated, it can cause damage to the brain, heart, blood vessels, kidneys and other parts of the body. This damage may cause heart disease, a heart attack, heart failure, stroke, kidney failure, loss of vision, and other problems. Making lifestyle changes will also help to control your blood pressure. These changes include eating a diet that is low in fat and salt, maintaining a healthy weight, exercising, not smoking, and using alcohol in moderation. HOW should this medicine be used? Furosemide comes as a tablet and as a solution (liquid) to take by mouth. It usually is taken once or twice a day. When used to treat edema, furosemide may be taken daily or only on certain days of the week. When used to treat hypertension, take furosemide at around the same time(s) every day. Take furosemide exactly as directed. Ask your doctor or pharmacist to explain any part you do not understand. Do not take more or less of it or take it more often than prescribed by your doctor. Furosemide controls high blood pressure and edema but does not cure these conditions. Continue to take furosemide even if you feel well. Do not stop taking furosemide without talking to your doctor. Are there OTHER USES for this medicine? This medicine is sometimes prescribed for other uses; ask your doctor or pharmacist for more information. What SPECIAL PRECAUTIONS should I follow? Before taking furosemide, ? tell your doctor or pharmacist if you are allergic to this drug, any part of this drug, or any other drugs, foods or substances. Tell your doctor or pharmacist about the allergy and what symptoms you had. ? tell your doctor and pharmacist what prescription and nonprescription medications, vitamins, nutritional supplements, and herbal products you are taking or plan to take while taking furosemide. Your doctor may need to change the doses of your medications or monitor you carefully for side effects. ? if you are taking sucralfate (Carafate??), take it 2 hours before or after you take furosemide. ? the following nonprescription products may interact with furosemide: aspirin and other salicylates; nonsteroidal anti-inflammatory drugs (NSAIDS) such as ibuprofen (Advil??, Motrin??, others) and naproxen (Aleve??). Be sure to let your doctor and pharmacist know that you are taking these medications before you start taking furosemide. Do not start any of these medications while taking furosemide without discussing with your healthcare provider. ? tell your doctor if you have kidney disease. Your doctor may tell you not to take furosemide. ? tell your doctor if you have or have ever had any condition that stops your bladder from emptyingcompletely, diabetes, gout, systemic lupus erythematosus (SLE, a chronic inflammatory condition), or liver disease. ? tell your doctor if you are , plan to become . If you become while taking furosemide, call your doctor. ? tell your doctor if you are breast-feeding. Furosemide may affect your milk supply. ? if you are having surgery, tell the doctor that you are using furosemide. ? plan to avoid unnecessary or prolonged exposure to sunlight and to wear protective clothing, sunglasses, and sunscreen. Furosemide may make your skin sensitive to sunlight. ? you should know that furosemide may cause dizziness, lightheadedness, and fainting when you get up too quickly from a lying position. This is more common when you first start taking furosemide. To avoid this problem, get out of bed slowly, resting your feet on the floor for a few minutes before standing up. Alcohol can add to these side effects. What SPECIAL DIETARY instructions should I follow? If your doctor prescribes a low-salt or low-sodium diet, or to eat or drink increased amounts of potassium-rich foods (e.g., bananas, prunes, raisins, and orange juice) in your diet, follow these instructions carefully. What should I do IF I FORGET to take a dose? Take the missed dose as soon as you remember it. However, if it is almost time for your next dose, skip the missed dose and continue your regular dosing schedule. Do not take a double dose to make upfor a missed one. What SIDE EFFECTS can this medicine cause? Some side effects can be serious. If you have any of these symptoms, call your doctor immediately or seek emergency medical treatment: ? decreased urination; dry mouth; thirst; nausea; vomiting; weakness; drowsiness; confusion; musclepain or cramps; or rapid or pounding heartbeats ? fever ? ringing in the ears, loss of hearing ? itching, rash, hives, blisters or peeling skin, difficulty breathing or swallowing ? yellowing of the skin or eyes If you experience a serious side effect, you or your doctor may send a report to the Food and Drug Administration's (FDA) MedWatch Adverse Event Reporting program online (https://www.fda.gov/Safety/MedWatch) or by phone ( ). What should I know about STORAGE and DISPOSAL of this medication? Keep this medicine in the container it came in, tightly closed, and out of reach of children. Storeit at room temperature and away from excess heat and moisture (not in the bathroom). Dispose of unused furosemide solution after 90 days. Keep all medication out of sight and reach of children as many containers are not child resistant. Always lock safety caps. Place the medication in a safe location - one that is up and away and out of their sight and reach. https://www.[employer].org Dispose of unneeded medications in a way so that pets, children, and other people cannot take them.Do not flush this medication down the toilet. Use a medicine take-back program. Talk to your pharmacist about take-back programs in your community. Visit the FDA's Safe Disposal of Medicines website ( https://goo.gl/c4Rm4p) for more information. What should I do in case of OVERDOSE? In case of overdose, call the poison control helpline at . Information is also available online at https://www.poisonhelp.org/help. If the victim has collapsed, had a seizure, has trouble breathing, or can't be awakened, immediately call emergency services at 911. Symptoms of overdose may include: ? extreme thirst ? dry mouth ? dizziness ? confusion ? extreme tiredness ? vomiting ? stomach cramps What OTHER INFORMATION should I know? Keep all appointments with your doctor and the laboratory. Your blood pressure should be checked regularly, and blood tests should be done occasionally. Before having any laboratory test, tell your doctor and the laboratory personnel that you are taking furosemide. Keep a written list of all of the prescription and nonprescription (hgfb-mst-snitxye) medicines vitamins, minerals, and dietary supplements you are taking. Bring this list with you each time you visit a doctor or if you are admitted to the hospital. You should carry the list with you in case of elaine gencies. This report on medications is for your information only, and is not considered individual patient advice. Because of the changing nature of drug information, please consult your physician or pharmacist about specific clinical use. The [employer] represents that the information provided hereunder was formulated with a reasonable standard of care, and in conformity with professional standards in the field. [employer] makes no representations or warranties, express or implied, including, but not limited to, any implied warranty of merchantability and/or fitness for a particular purpose, with respect to such information and specifically disclaims all such warranties. Users are advised that decisions regarding drug therapy are complex medical decisions requiring the independent, informed decision of an appropriate health healthcare administrative assistant, and the information is provided for informational purposes only. The entire monograph for a drug should be reviewed for a thorough understanding of the drug's actions, uses and side effects. [employer] does not endorse or recommend the use of any drug.The information is not a substitute for medical care. AHFS?? Patient Medication Information?. ?? Copyright, 2023. [employer]??, [address], [address], [place], [place]. All Rights Reserved. Duplication for commercial use must be authorized by [facility]. Selected Revisions: January 18, 2025. AHFS?? Patient Medication Information?. ?? Copyright, 2024 * Jh DamonRADHA - Mikayla Leung - 03/30/2025 10:50 AM EDT Images from the original note were not included. [id number] Stool Softeners Brand Name(s): Colace??, Correctol Soft Gels??, Diocto??, Ex-Lax Stool Softener??, Fleet Sof-Lax??,Jimenez' Liqui-Gels??, Surfak??, Correctol 50 Plus?? (as a combination product containing Docusate, Sennosides), Ex-Lax Gentle Strength?? (as a combination product containing Docusate, Sennosides), Gentlax S?? (as a combination product containing Docusate, Sennosides), Lisa-Colace?? (as a combination product containing Docusate, Sennosides), Senokot S?? (as a combination product containing Docusate, Sennosides); also available generically dioctyl calcium sulfosuccinate, dioctyl sodium sulfosuccinate, docusate calcium, docusate sodium, COLIN, DSS ?? This branded product is no longer on the market. Generic alternatives may be available. WHY is this medicine prescribed? Stool softeners are used on a short-term basis to relieve constipation by people who should avoid straining during bowel movements because of heart conditions, hemorrhoids, and other problems. They work by softening stools to make them easier to pass. HOW should this medicine be used? Stool softeners come as a capsule, tablet, liquid, and syrup to take by mouth. A stool softener usually is taken at bedtime. Follow the directions on the package or your prescription label carefully,and ask your doctor or pharmacist to explain any part you do not understand. Take stool softeners exactly as directed. Do not take more or less of it or take it more often than prescribed by your doctor. Swallow the docusate capsules whole; do not split, chew, or crush them. Take capsules and tablets with a full glass of water. The liquid comes with a specially marked dropper for measuring the dose. Ask your pharmacist to show you how to use it if you have difficulty. Mix the liquid (not the syrup) with 4 ounces (120 milliliters) of milk, fruit juice, or formula to mask its bitter taste. One to three days of regular use usually are needed for this medicine to take effect. Do not take stool softeners for more than 1 week unless your doctor directs you to. If sudden changes in bowel habits last longer than 2 weeks or if your stools are still hard after you have taken this medicine for 1 week, call your doctor. Are there OTHER USES for this medicine? This medication may be prescribed for other uses; ask your doctor or pharmacist for more information. What SPECIAL PRECAUTIONS should I follow? Before taking stool softeners, ? tell your doctor and pharmacist if you are allergic to any stool softeners, any other medications, or to any of the ingredients in the stool softeners, Ask your pharmacist for a list of the ingredients. ? tell your doctor and pharmacist what prescription and nonprescription medications, vitamins, nutritional supplements, and herbal products you are taking or plan to take while taking stool softeners. Your doctor may need to change the doses of your medications or monitor you carefully for side effects. ? the following nonprescription product may interact with stool softeners: mineral oil. Be sure to let your doctor and pharmacist know that you are taking this medication before you start taking stool softeners. Do not start any of this medication while taking stool softeners without discussing with your healthcare provider. ? tell your doctor if you are , plan to become , or are . If you become while taking stool softeners, call your doctor. What should I do IF I FORGET to take a dose? This medication usually is taken as needed. If your doctor has told you to take stool softeners regularly, take the missed dose as soon as you remember it. However, if it is almost time for the next dose, skip the missed dose and continue your regular dosing schedule. Do not take a double dose to make up for a missed one. What SIDE EFFECTS can this medicine cause? Some side effects can be serious. If you experience any of the following symptoms, call your doctorimmediately: ? rash ? hives ? difficulty breathing or swallowing ? fever ? vomiting ? stomach pain If you experience a serious side effect, you or your doctor may send a report to the Food and Drug Administration's (FDA) MedWatch Adverse Event Reporting program online (https://www.fda.gov/Safety/MedWatch) or by phone ( ). What should I know about STORAGE and DISPOSAL of this medication? Keep this medication in the container it came in, tightly closed, and out of reach of children. Store it at room temperature and away from excess heat and moisture (not in the bathroom). Keep all medication out of sight and reach of children as many containers are not child-resistant. Always lock safety caps. Place the medication in a safe location - one that is up and away and out of their sight and reach. https://www.upandaway.org Dispose of unneeded medications in a way so that pets, children, and other people cannot take them.Do not flush this medication down the toilet. Use a medicine take-back program. Talk to your pharmacist about take-back programs in your community. Visit the FDA's Safe Disposal of Medicines website h ttps://goo.gl/c4Rm4p for more information. What OTHER INFORMATION should I know? Ask your pharmacist any questions you have about taking this medicine. Keep a written list of all of the prescription and nonprescription (oapu-esz-sectawv) medicines, vitamins, minerals, and dietary supplements you are taking. Bring this list with you each time you visit a doctor or if you are admitted to the hospital. You should carry the list with you in case of dallin rgencies. This report on medications is for your information only, and is not considered individual patient advice. Because of the changing nature of drug information, please consult your physician or pharmacist about specific clinical use. [employer] represents that the information provided hereunder was formulated with a reasonable standard of care, and in conformity with professional standards in the field. [employer] makes no representations or warranties, express or implied, including, but not limited to, any implied warranty of merchantability and/or fitness for a particular purpose, with respect to such information and specifically disclaims all such warranties. Users are advised that decisions regarding drug therapy are complex medical decisions requiring the independent, informed decision of an appropriate health healthcare administrative assistant, and the information is provided for informational purposes only. The entire monograph for a drug should be reviewed for a thorough understanding of the drug's actions, uses and side effects. [employer] does not endorse or recommend the use of any drug.The information is not a substitute for medical care. AHFS?? Patient Medication Information?. ?? Copyright, 2023. [employer]??, [address], [address], [place], [place]. All Rights Reserved. Duplication for commercial use must be authorized by [facility]. Selected Revisions: March 25, 2024. AHFS?? Patient Medication Information?. ?? Copyright, 2024 * Zinakale DamonRADHA - Mikayla Leung - 03/30/2025 10:50 AM EDT Images from the original note were not included. [id number] Acetaminophen Brand Name(s): Actamin??, Feverall??, Panadol??, Tempra Quicklets??, Tylenol??, Dayquil?? (as a combination product containing Acetaminophen, Dextromethorphan, Pseudoephedrine), NyQuil Cold/Flu Relief?? (as a combination product containing Acetaminophen, Dextromethorphan, Doxylamine), Percocet?? (as a combination product containing Acetaminophen, Oxycodone) APAP, O-lhxicp-pjev-aminophenol, Paracetamol ?? This branded product is no longer on the market. Generic alternatives may be available. IMPORTANT WARNING: Taking too much acetaminophen can cause liver damage, sometimes serious enough to require liver transplantation or cause . You might accidentally take too much acetaminophen if you do not followthe directions on the prescription or package label carefully, or if you take more than one productthat contains acetaminophen. To be sure that you take acetaminophen safely, you should ? not take more than one product that contains acetaminophen at a time. Read the labels of all the prescription and nonprescription medications you are taking to see if they contain acetaminophen. Beaware that abbreviations such as APAP, AC, Acetaminophen, Acetaminoph, Acetaminop, Acetamin, or Acetam. may be written on the label in place of the word acetaminophen. Ask your doctor or pharmacist if you don't know if a medication that you are taking contains acetaminophen. ? take acetaminophen exactly as directed on the prescription or package label. Do not take more acetaminophen or take it more often than directed, even if you still have fever or pain. Ask your doctor or pharmacist if you do not know how much medication to take or how often to take your medication.Call your doctor if you still have pain or fever after taking your medication as directed. ? be aware that you should not take more than 4000 mg of acetaminophen per day. If you need to takemore than one product that contains acetaminophen, it may be difficult for you to calculate the total amount of acetaminophen you are taking. Ask your doctor or pharmacist to help you. ? tell your doctor if you have or have ever had liver disease. ? not take acetaminophen if you drink three or more alcoholic drinks every day. Talk to your doctorabout the safe use of alcohol while you are taking acetaminophen. ? stop taking your medication and call your doctor right away if you think you have taken too much acetaminophen, even if you feel well. Talk to your pharmacist or doctor if you have questions about the safe use of acetaminophen or acetaminophen-containing products. WHY is this medicine prescribed? Acetaminophen is used to relieve mild to moderate pain from headaches, muscle aches, menstrual periods, colds and sore throats, toothaches, backaches, reactions to vaccinations (shots), and to reducefever. Acetaminophen may also be used to relieve the pain of osteoarthritis (arthritis caused by the breakdown of the lining of the joints). Acetaminophen is in a class of medications called analgesics (pain relievers) and antipyretics (fever reducers). It works by changing the way the body senses pain and by cooling the body. HOW should this medicine be used? Acetaminophen comes as a tablet, chewable tablet, capsule, suspension or solution (liquid), extended-release (long-acting) tablet, and orally disintegrating tablet (tablet that dissolves quickly in the mouth), to take by mouth, with or without food. Acetaminophen is available without a prescription, but your doctor may prescribe acetaminophen to treat certain conditions. Follow the directions on the package or prescription label carefully, and ask your doctor or pharmacist to explain any part you do not understand. If you are giving acetaminophen to your child, read the package label carefully to make sure that it is the right product for the age of the child. Do not give children acetaminophen products that are made for adults. Some products for adults and older children may contain too much acetaminophen for a younger child. Check the package label to find out how much medication the child needs. If you know how much your child weighs, give the dose that matches that weight on the chart. If you don't know your child's weight, give the dose that matches your child's age. Ask your child's doctor if you don't know how much medication to give your child. Acetaminophen comes in combination with other medications to treat cough and cold symptoms. Ask your doctor or pharmacist for advice on which product is best for your symptoms. Check nonprescription cough and cold product labels carefully before using two or more products at the same time. These products may contain the same active ingredient(s) and taking them together could cause you to receivean overdose. This is especially important if you will be giving cough and cold medications to a child. Swallow the extended-release tablets whole; do not split, chew, crush, or dissolve them. Place the orally disintegrating tablet ('Meltaways') in your mouth and allow it to dissolve, or chew it before swallowing. Shake the suspension well before each use to mix the medication evenly. Always use the measuring cup or syringe provided by the director of healthcare systems to measure each dose of the solution or suspension. Do notswitch dosing devices between different products; always use the device that comes in the product packaging. Stop taking acetaminophen and call your doctor if your symptoms get worse, you develop new or unexpected symptoms, including redness or swelling, your pain lasts for more than 10 days, or your fever gets worse or lasts more than 3 days. Also stop giving acetaminophen to your child and call your child's doctor if your child develops new symptoms, including redness or swelling, or if your child's pain lasts for longer than 5 days, or if a fever gets worse or lasts longer than 3 days. Do not give acetaminophen to a child who has a sore throat that is severe or does not go away, or that occurs along with fever, headache, rash, nausea, or vomiting. Call the child's doctor right away, because these symptoms may be signs of a more serious condition. Are there OTHER USES for this medicine? Acetaminophen may also be used in combination with aspirin and caffeine to relieve the pain associated with migraine headache. This medication is sometimes prescribed for other uses; ask your doctor or pharmacist for more information. What SPECIAL PRECAUTIONS should I follow? Before taking acetaminophen, ? tell your doctor and pharmacist if you are allergic to acetaminophen, any other medications, or any of the ingredients in the product. Ask your pharmacist or check the label on the package for a list of ingredients. ? tell your doctor and pharmacist what prescription and nonprescription medications, vitamins, nutritional supplements, or herbal products you are taking or plan to take while taking acetaminophen. Your doctor may need to change the doses of your medications or monitor you carefully for side effects. ? The following nonprescription products may interact with acetaminophen: medications for pain, coughs, fever, and colds. Be sure to let your doctor and pharmacist know that you are taking these medications before you start taking acetaminophen. Do not start any of these medications while taking acetaminophen without discussing with your healthcare provider. ? tell your doctor if you have ever developed a rash after taking acetaminophen. ? tell your doctor if you are , plan to become , or are breast- feeding. If you become while taking acetaminophen, call your doctor. ? if you drink three or more alcoholic beverages every day, do not take acetaminophen. Ask your doctor or pharmacist about the safe use of alcoholic beverages while taking acetaminophen. ? you should know that combination acetaminophen products for cough and colds that contain nasal decongestants, antihistamines, cough suppressants, and expectorants should not be used in children younger than 2 years of age. Use of these medications in young children can cause serious and life-threatening effects or . In children 2 through 11 years of age, combination cough and cold productsshould be used carefully and only according to the directions on the label. ? if you have phenylketonuria (PKU, an inherited condition in which a special diet must be followedto prevent damage to your brain that can cause severe intellectual disability), you should know that some brands of acetaminophen chewable tablets may be sweetened with aspartame, a source of phenylalanine. What SPECIAL DIETARY instructions should I follow? Unless your doctor tells you otherwise, continue your normal diet. What should I do IF I FORGET to take a dose? This medication is usually taken as needed. If your doctor has told you to take acetaminophen regularly, take the missed dose as soon as you remember it. However, if it is almost time for the next dose, skip the missed dose and continue your regular dosing schedule. Do not take a double dose to make up for a missed one. What SIDE EFFECTS can this medicine cause? Some side effects can be serious. If you experience any of the following symptoms, stop taking acetaminophen and call your doctor immediately or get emergency medical attention: ? red, peeling or blistering skin ? rash ? hives ? itching ? swelling of the face, throat, tongue, lips, eyes, hands, feet, ankles, or lower legs ? hoarseness ? difficulty breathing or swallowing Acetaminophen may cause other side effects. Call your doctor if you have any unusual problems whileyou are taking this medication. If you experience a serious side effect, you or your doctor may send a report to the Food and Drug Administration's (FDA) MedWatch Adverse Event Reporting program online (https://www.fda.gov/Safety/MedWatch) or by phone ( ). What should I know about STORAGE and DISPOSAL of this medication? Keep this medication in the container it came in, tightly closed, and out of reach of children. Store it at room temperature and away from excess heat and moisture (not in the bathroom). It is important to keep all medication out of sight and reach of children as many containers (such as weekly pill minders and those for eye drops, creams, patches, and inhalers) are not child-resistant and young children can open them easily. To protect young children from poisoning, always lock safety caps and immediately place the medication in a safe location - one that is up and away and out of their sight and reach. https://www.Intentiva.org Unneeded medications should be disposed of in special ways to ensure that pets, children, and otherpeople cannot consume them. However, you should not flush this medication down the toilet. Instead,the best way to dispose of your medication is through a medicine take-back program. Talk to your pharmacist or contact your local garbage/recycling department to learn about take-back programs in your community. See the FDA's Safe Disposal of Medicines website (https://goo.gl/c4Rm4p) for more information if you do not have access to a take-back program. What should I do in case of OVERDOSE? In case of overdose, call the poison control helpline at . Information is also available online at https://www.poisonhelp.org/help. If the victim has collapsed, had a seizure, has trouble breathing, or can't be awakened, immediately call emergency services at 410. If someone takes more than the recommended dose of acetaminophen, get medical help immediately, even if the person does not have any symptoms. Symptoms of overdose may include the following: ? nausea ? vomiting ? loss of appetite ? sweating ? extreme tiredness ? unusual bleeding or bruising ? pain in the upper right part of the stomach ? yellowing of the skin or eyes ? flu-like symptoms What OTHER INFORMATION should I know? Before having any laboratory test, tell your doctor and the laboratory personnel that you are taking acetaminophen. Ask your pharmacist any questions you have about acetaminophen. It is important for you to keep a written list of all of the prescription and nonprescription (bhxa-osf-juunfuj) medicines you are taking, as well as any products such as vitamins, minerals, or otherdietary supplements. You should bring this list with you each time you visit a doctor or if you areadmitted to a hospital. It is also important information to carry with you in case of emergencies. This report on medications is for your information only, and is not considered individual patient advice. Because of the changing nature of drug information, please consult your physician or pharmacist about specific clinical use. The [employer] represents that the information provided hereunder was formulated with a reasonable standard of care, and in conformity with professional standards in the field. The [employer] makes no representations or warranties, express or implied, including, but not limited to, any implied warranty of merchantability and/or fitness for a particular purpose, with respect to such information and specifically disclaims all such warranties. Users are advised that decisions regarding drug therapy are complex medical decisions requiring the independent, informed decision of an appropriate health healthcare administrative assistant, and the information is provided for informational purposes only. The entire monograph for a drug should be reviewed for a thorough understanding of the drug's actions, uses and side effects. The [employer] does not endorse or recommend the use of any drug.The information is not a substitute for medical care. AHFS?? Patient Medication Information?. ?? Copyright, 2023. [employer]??, [address], [address], [place], [place]. All Rights Reserved. Duplication for commercial use must be authorized by [facility]. Selected Revisions: June 20, 2023. AHFS?? Patient Medication Information?. ?? Copyright, 2024 * Discharge Summary - Lian Dobbs APRN - 03/30/2025 10:04 AM EDT Images from the original note were not included. Hospitalization Admit Date/Time: 03/22/2025 5:35 AM Admitting Attending: Musa Rosado Discharge Date: 03/30/2025 Discharge Attending Physician: Musa Rosado MD PCP name and Address: David Iverson MD [address] [place] [address] Referring provider name and address: No referring provider defined for this encounter. Chief Concern, Brief History of Present Illness, and Hospital Course Mr. Lizandro Gr is a 45 year old male with PMH significant for hypertension, hyperlipidemia, DM II, CKD3, GERD, and obesity. His PCP noted his CT calcium score elevated at 876 and referred him for stress test. The stress test results were suggestive of possible multivessel CAD or balanced ischemia. He was then referred to cardiology for cardiac catheterization which confirmed multivessel CAD. He is now s/p CABG x 4 on 03/[address] Rosado. Operative course was non-complicated. Following the procedure, patient was taken to the CVICU whereCCM was consulted for ongoing critical care management. Otherwise, patient recovered well. Currently, patient is maintaining sinus rhythm. Pain is well controlled with PRN analgesics. Patient is able to ambulate well without assistance. Patient is tolerating a regular diet. UOP is appropriate and bowel function has returned post-operatively. At this time, patient is hemodynamically stable and appropriate for discharge. Surgeries and Procedures Procedures performed in this encounter Procedures Critical Care Critical Care Critical Care CABG, 2 OR MORE VESSELS (N/A) Medication List .. acetaminophen 500 MG tablet Commonly known as: Tylenol Take 2 tablets by mouth every 6 hours as needed for pain. * allopurinol 300 MG tablet Commonly known as: Zyloprim Take 1 tablet by mouth daily. Start taking on: March 31, 2025 * allopurinol 300 MG tablet Commonly known as: Zyloprim Take by mouth 1 (one) time each day. * aspirin 81 MG chewable tablet Chew 1 tablet daily. Start taking on: March 31, 2025 * aspirin 81 MG EC tablet Take 1 tablet by mouth daily. atorvastatin 80 MG tablet Commonly known as: Lipitor Take 1 tablet by mouth nightly. DSS 100 MG capsule Take 100 mg by mouth 2 times a day for 10 days. Hold for loose stool fenofibrate 145 MG tablet Commonly known as: Tricor Take 1 tablet by mouth daily. furosemide 40 MG tablet Commonly known as: Lasix Take 1 tablet by mouth daily for 3 days. Start taking on: March 31, 2025 gabapentin 300 MG capsule Commonly known as: Neurontin Take 1 capsule by mouth 2 times a day. Kerendia 10 MG tablet Generic drug: Finerenone Take 10 mg by mouth daily. Lantus SoloStar 100 UNIT/ML injection pen Generic drug: insulin glargine Inject 28 Units under the skin nightly. methocarbamol 500 MG tablet Commonly known as: Robaxin Take 2 tablets by mouth 4 times a day for 10 days. metoprolol tartrate 25 MG tablet Commonly known as: Lopressor Take 0.5 tablets by mouth 2 times a day. naloxone 4 mg/0.1 mL nasal spray Commonly known as: Narcan 1. Give 1 spray in nostril for no/slow breathing or cannot wake after opioid use 2. Call 911 3. Repeat in other nostril if symptoms continue nitroglycerin 0.4 MG SL tablet Commonly known as: Nitrostat DISSOLVE 1 TABLET UNDER THE TONGUE EVERY 5 MINUTES NEEDED FOR CHEST PAIN. DO NOT EXCEED A TOTAL OF 3 DOSES IN 15 MINUTES. IF NO RELIEF CALL 911. NovoLOG FLEXPEN 100 UNIT/ML injection pen Generic drug: insulin aspart Inject 6 Units under the skin 3 times a day with meals. Correction 1:50 >[address] capsule Commonly known as: PriLOSEC Take 1 capsule by mouth daily. oxyCODONE 10 MG immediate release tablet Commonly known as: Roxicodone Take 1 tablet by mouth every 4 hours as needed for severe pain (For pain unrelieved by other interventions) for up to 3 days. senna 8.6 MG tablet Commonly known as: Senokot Take 2 tablets by mouth daily for 10 days. Hold for loose stools. traMADol 50 MG tablet Commonly known as: Ultram Take by mouth every 6 hours. * This list has 4 medication(s) that are the same as other medications prescribed for you. Read thedirections carefully, and ask your doctor or other care provider to review them with you. Where to Get Your Medications These medications were sent to [facility] - [place], [place] - [address] [facility] [id number] acetaminophen 500 MG tablet allopurinol 300 MG tablet aspirin 81 MG chewable tablet atorvastatin 80 MG tablet DSS 100 MG capsule furosemide 40 MG tablet methocarbamol 500 MG tablet metoprolol tartrate 25 MG tablet naloxone 4 mg/0.1 mL nasal spray oxyCODONE 10 MG immediate release tablet senna 8.6 MG tablet Information about where to get these medications is not yet available Ask your nurse or doctor about these medications Lantus SoloStar 100 UNIT/ML injection pen NovoLOG FLEXPEN 100 UNIT/ML injection pen Discharge Diagnosis Multivessel CAD (POA) S/p CABG x 4 on 03/22 - Median Sternotomy, coronary artery bypass grafting, endoscopic vein dpuywkr-fpvrl-pjjokcp saphenous. Vein the ascending aorta the 1st diagonal. Vein from the side of the 1st diagonal graft to the 1st obtuse marginal. Vein from ascending aorta to the posterior descending coronary artery. Left internal mammary artery skeletonized in Situ left anterior descending coronary artery. (3 vein grafts, 1 arterial graft, endoscopic vein harvest) - ASA, statin, BB - Routine post cardiac surgery care: sternal precautions x 6 weeks, PT, bowel regimen to prevent constipation and aggressive pulmonary toilet. Volume overload - admission weight 105 kg - daily weights/I&Os - CXR prn - daily po lasix - current weight 103 kg - Weight on day of discharge 103 kg, will send home with 3 days of Lasix. Acute blood loss anemia - monitor and transfuse for Hgb < 7 - H/H 7.5/22.8 - 03/26: H/H 7.8/23.9 - 03/27: H/H 8.8/27.3 - 03/28: H/H 8.8/26.3 - 03/30 day of discharge 07/02 Hypocalcemia - monitor and replete prn Hypophosphatemia - monitor and replete prn Acute postoperative pain - MMPC DM II (POA) Diabetic neuropathy (POA) Postoperative hyperglycemia - A1c 7.2 - holding home jardiance - SSI CKD 3 (POA) - creatinine 1.46 on admission - avoid nephrotoxic agents - renally dose medications - holding home kerendia -03/30/25 restart home kerendia Hypertension (POA) - holding home lisinopril, hydrochlorothiazide, and diltiazem Hyperlipidemia (POA) Hypertriglyceridemia (POA) Hypoalphalipoproteinemia (POA) - statin Gout (POA) - home allopurinol GERD (POA) - continue PPI Chronic pain (POA) - home tramadol and gabapentin Obesity (POA) - BMI 32.35 - complicates all aspects of care Leukocytosis (resolved) Hypomagnesemia (resolved) Thrombocytopenia (resolved) Post Discharge Instructions As above Outpatient Follow-Up Future Appointments Date Time Provider Department Center 04/14/2025 3:40 PM Musa Rosado MD [facility] 06/13/2025 11:40 AM Sonia Medley MD [facility] PAC Test Results Pending At Discharge Pending Labs Order Current Status Prepare Leukocyte Reduced RBC: 4 Units Preliminary result Pertinent Physical Exam At Time of Discharge GENERAL: Well-developed, well-nourished. No apparent distress. EYES: No scleral icterus or conjunctivitis HENT: Atraumatic, normocephalic, nares patent, mucus membranes moist NECK: Supple, no JVD, no evidence of bruit bilaterally RESP/CHEST: CTA bilaterally. Normal work of breathing with symmetric expansion noted. CARD: Regular rate and rhythm. Normal S1/S2. No murmur. No rub or gallop. Extremities: No lower extremity edema present. No cyanosis or clubbing. Pedal pulses palpable +2. GI: No organomegaly or masses. Soft, Nontender, nondistended. Bowel sounds present and normoactive x 4 quadrants SKIN: [place], warm, and dry. No rash, sores, or lesions. Sternotomy CDI and right EVH site oozing serosanguinous drainage and bruising noted. NEURO: AAOx4. Motor function intact and no focal deficits PSYCH: Mood and affect congruent and appropriate to situation. Discharge Disposition/Condition Disposition: Home Condition: Stable (s/sx potential problems absent or manageable) I spent >30 minutes of patient care and instruction time in preparation for this discharge. Cosigned by Musa Rosado MD at 03/31/2025 11:34 AM EDT Associated attestation - Musa Rosado MD - 03/31/2025 11:34 AM EDT The patient was seen by Advanced Practice Provider (LISA), and myself-- care was reviewed with me. * Progress Notes - Hilda Mera APRN - 03/30/2025 8:15 AM EDT Endocrine - Diabetes Progress Note: Subjective: 24 hour update: -AM BG 176 -eating well with meals here, plans on going back to low carb diet when he returns home -changes to insulin regimen discussed with patient and due to discharge today -denies further questions or concerns regarding regimen, he plans to follow-up with PCP next week too I have independently reviewed and interpreted the patient's blood glucose levels in Epic timeline, labs, vitals, and insulin doses administered in the electronic medical record. Review of Systems Constitutional: Negative for chills and fever. Respiratory: Negative for cough and shortness of breath. Cardiovascular: Negative for chest pain and leg swelling. Gastrointestinal: Negative for diarrhea, nausea and vomiting. Skin: Positive for wound. Negative for pallor. Neurological: Negative for dizziness and weakness. Psychiatric/Behavioral: Negative for confusion and decreased concentration. Objective: Physical Exam Vitals reviewed. Constitutional: General: He is not in acute distress. Appearance: Normal appearance. HENT: Head: Normocephalic. Nose: Nose normal. Mouth/Throat: Mouth: Mucous membranes are moist. Eyes: Extraocular Movements: Extraocular movements intact. Conjunctiva/sclera: Conjunctivae normal. Cardiovascular: Rate and Rhythm: Normal rate. Pulmonary: Effort: Pulmonary effort is normal. No respiratory distress. Abdominal: General: Abdomen is flat. Palpations: Abdomen is soft. Skin: General: Skin is warm and dry. Comments: Sternal wound incision dry, intact Neurological: General: No focal deficit present. Mental Status: He is alert and oriented to person, place, and time. Psychiatric: Mood and Affect: Mood normal. Behavior: Behavior normal. Thought Content: Thought content normal. BP 110/57 (BP Location: Right arm, Patient Position: Lying) Pulse 78 Temp 36.8 ??C (98.3 ??F) (Oral) Resp 18 Ht 1.829 m (6') Wt 103 kg (227 lb 4.7 oz) BMI 30.83 kg/m?? Medications: Current Scheduled Medications[1] Current Continuous Medications[2] Current PRN Medications[3] Lab Review: Results from last 7 days Lab Units 03/30/25 0347 SODIUM mmol/L 138 POTASSIUM mmol/L 4.1 CHLORIDE mmol/L 103 CO2 mmol/L 23 BUN mg/dL 28* CREATININE mg/dL 1.18 EGFR mL/min/1.73m*2 78.5 GLUCOSE mg/dL 172* CALCIUM mg/dL 8.9 Results from last 7 days Lab Units 03/30/25 0347 WBC 10*3/uL 7.54 HEMOGLOBIN g/dL 9.0* HEMATOCRIT % 27.9* PLATELETS 10*3/uL 286 Lab Results Component Value Date GLUCOSE 172 (H) 03/30/2025 GLUCOSE 196 (H) 03/28/2025 GLUCOSE 200 (H) 03/27/2025 PGLU 226 (H) 03/29/2025 PGLU 155 (H) 03/29/2025 PGLU 213 (H) 03/29/2025 PGLU 176 (H) 03/29/2025 PGLU 179 (H) 03/28/2025 PGLU 164 (H) 03/28/2025 PGLU 243 (H) 03/28/2025 PGLU 205 (H) 03/28/2025 Lab Results Component Value Date HGBA1C 7.2 (H) 02/17/2025 Diet: Dietary Orders (From admission, onward) Start Ordered 03/24/25 0804 Adult diet Diet texture: Regular; Carbohydrate restriction: Consistent Carb 2 (80 gm max/meal); Sodium restriction: No added salt (Adult Diet Panel) Diet effective now Comments: Unsweet tea please No sweetened juices References: IDDSI Diet Texture Guide Question Answer Comment Diet texture Regular Carbohydrate restriction: Consistent Carb 2 (80 gm max/meal) Sodium restriction: No added salt 03/24/25 0804 Assessment: Lizandro Gr is a 45 y.o. male PMH CAD, CKD, HLD, T2DM, Afib presented to [facility] for CABG on 03/22. Endocrine Diabetes team was consulted for glycemic management on 03/24/25 for post CABG glucose management. Primary team requests recommendations and orders Daily Glucose and Insulin Total Daily Dose -03/23: BG 126-176, insulin drip 1.68-4 u/hr -consulted 03/24, BG 143-208, TDD 34 units -03/25, BG 183-214, TDD 48 units -03/26 BG 197-260, TDD 59 units -03/27 BG 161-242, TDD 72 units -03/28 BG 164-243, TDD 76 units -03/29: 155-226, TDD 64 units Diagnoses #DM, type 2 -A1c: 7.2 in February 2025 -Home regimen: Lantus: 80 units in PM (hasn't been taking most nights due to hypo episodes) Novolo units with meals (15 units if BG 130-170, hold is less than 130) Jardiance: recently stopped prior to surgery -Elevated HgA1C levels impact all body systems with increased risk for worsening of conditions including renal function, heart disease, eye disease, neuropathy, foot ulcerations, lower extremity amputation, gastroparesis, and overall increased risk for mortality #CAD #s/p CABG x4 03/22 Good glycemic control important to healing and infection prevention in post surgical setting #anemia Lab Results Component Value Date HGB 9.0 (L) 03/30/2025 -can lead to false low A1c. Must rely on intensive monitoring of glucose #CKD Lab Results Component Value Date BUN 28 (H) 03/30/2025 CREATININE 1.18 03/30/2025 EGFR 78.5 03/30/2025 -risks of prolonged excretion of insulin, insulin stacking and hypoglycemia. recommend caution withinsulin adjustments, requires intensive monitoring #obesity -leads to insulin resistance -complicating all aspects of care Plan -After review of glucose trends and insulin delivery over the last 24 hours, no changes made, plansfor DC today Current Insulin Regimen: Basal: 34 units glargine in PM Bolus: 14 units lispro with meals Correction: resistant correction with CF 2:50>150 AC and 1:50>250 HS, 0300 -continue to assess blood glucose trends and adjust basal/bolus insulin therapy dose accordingly -continue intensive glucose monitoring due to increased risk for hyper/hypoglycemia secondary to insulin therapy -fsbg ac/hs when eating, q6h when NPO, on TF/TPN -correction insulin to be given for hyperglycemia, do not hold correction if patient does not eat -hypoglycemia protocol in place -please document the percentage of meals consumed in intake and output flowsheet -please notify us when diet orders change or steroids added as this impacts our treatment -plan and management discussed with patient, family member, primary team, bedside engineering department chair planning -Diabetes education: not needed -Follow-up plan: PCP, declines endocrinology services at discharge -Discharge medications Insulin regimen Glargine: 28 units in PM Lispro: 6 units + 1:50>150 with meals Continue Dexcom CGM May substitute for therapeutic equivalent per insurance and retail PharmD approval -Supplies/scripts needed: Ensure patient has working glucose meter and supplies as backup to CGM DM/Endo team will continue to follow. Please notify us as patient nears discharge for final recommendations Please contact Hilda Mera APRN via secure chat or page us at [phone] during -7p, Friday-Friday. For after hours please contact the on-call Endocrine Fellow. Thank you for the opportunity to participate in this patient's care. Time Spent: I personally spent a total of 35 minutes on this encounter. This time includes face to face with patient, counseling and discussion and/or coordination of care. [1] acetaminophen, 1,000 mg, Oral, q6h VIOLETTE allopurinol, 300 mg, Oral, Daily aspirin, 81 mg, Oral, Daily atorvastatin, 80 mg, Oral, Nightly docusate sodium, 100 mg, Oral, BID fenofibrate, 145 mg, Oral, Daily furosemide, 40 mg, Oral, Daily gabapentin, 300 mg, Oral, BID heparin (porcine), 5,000 Units, Subcutaneous, q8h VIOLETTE insulin glargine-yfgn, 34 Units, Subcutaneous, Nightly insulin lispro, 0-10 Units, Subcutaneous, TID with meals insulin lispro, 0-3 Units, Subcutaneous, Twice at night Insulin Lispro, 14 Units, Subcutaneous, TID with meals lidocaine, 2 patch, Apply externally, q24h magnesium hydroxide, 30 mL, Oral, Daily methocarbamol, 1,000 mg, Oral, 4x daily metoprolol tartrate, 12.5 mg, Oral, BID pantoprazole, 40 mg, Oral, Daily polyethylene glycol, 17 g, Oral, BID senna, 17.2 mg, Oral, BID simethicone, 80 mg, Oral, 4x daily sodium chloride, 10 mL, Intravenous, q12h traMADol, 50 mg, Oral, q6h [2] [3] PRN medications: bisacodyl, ondansetron, oxyCODONE OR oxyCODONE, smog, sodium chloride, sodium chloride * Progress Notes - Сергей Nelsontlin Sarahy - 03/29/2025 9:05 AM EDT Physical Therapy Treatment Patient Name: Lizandro Gr Today's Date: 03/29/2025 PT Discharge Recommendations: Home with assistance Equipment Recommended: Rollator Subjective Pt agreed to therapy, reported he didn't sleep well, has had back pain Participants in Care Family/Caregiver Present: Yes Family/Caregiver: Spouse (Present initially but left towards start of session) Presentation Oxygen Therapy: None (Room air) O2 Flow Rate (L/min): 0 L/min Peripheral IV 03/22/25 Posterior;Right Wrist (Active) Lines and Tubes: Telemetry, Intravenous access Pre-Session: Sitting in chair, Lines intact Pre-Session Comments: RN agreeable to session Post-Session: Sitting in chair, Lines intact, Call light in reach Post-Session Comments: all needs met, pt positioned for comfort, pt's family temporarily not in room. Precautions Medical Precautions: Sternal Objective Pain 3/10 low back, coccyx, right sided SI region Almost nothing after interventions Delirium Screening [place] Agitation Sedation Scale (RASS): Alert and calm Confusion Assessment Method-ICU (CAM-ICU/PCAM-ICU) Feature 3: Altered Level of Consciousness: Negative Therapeutic Activity (15 minutes) PT provided instruction for gentle back stretch by leaning forward onto elbows on table, encouragedperiodic stretching, use of heat packs to reduce pain. Transfers Transfer Exam: Sit to stand Level of [place]: Stand-by assist Physical/Nonphysical Assist: Supervision Assistive Device: Hand held assist Transfer Exam: Stand to Sit Level of [place]: Stand-by assist Physical/Nonphysical Assist: Supervision Assistive Device: Hand held assist Ambulation Device: Rollator Assistance: Standby assist Distance : 320ft Ambulation Comments: Reported minimal exertion with ambulation Manual Therapy (8 minutes) soft tissue mobilization to low back paraspinals to reduce muscle tension and pain Assessment Pt responded well to interventions, reporting decreased pain with massage, standing, and low back stretch. PT Recommendations Discharge Destination: Home with assistance Discharge Equipment: Rollator Plan Continue POC PT Goals PT GOAL DETAILS Goal Established Date Time Frame Goal Status PT Goal 1: Pt will demonstrate compliance with HEP and discharge recommendations 03/23/25 2 weeks PT Goal 2: Pt will complete STS and bed to chair transfer by SBA x1 and use of LRAD 03/23/25 2 weeks PT Goal 3: Pt will ambulate 600' by SBA x1 and use of LRAD 03/23/25 2 weeks Written by Ruth Nelson on 03/29/25 at 1:30 PM. * Progress Notes - Viri Escalona - 03/29/2025 9:04 AM EDT Occupational Therapy Treatment Patient Name: Lizandro Gr Today's Date: 03/29/2025 OT Discharge Recommendations: Home with assistance Equipment Recommended: Rollator Subjective My back is hurting me now. Participants in Care Family/Caregiver Present: Yes Family/Caregiver: Spouse (Present initially but left towards start of session) Presentation Oxygen Therapy: None (Room air) Lines and Tubes: Telemetry, Intravenous access Pre-Session: Sitting in chair, Lines intact Pre-Session Comments: RN agreeable to session Post-Session: Sitting in chair, Lines intact, Call light in reach Post-Session Comments: all needs met, pt positioned for comfort, pt's family temporarily not in room. Precautions Medical Precautions: Sternal Objective Pain Pt reporting sternal and low back pain: 3/10 Pillow support provided at end of session and RN aware (reporting she will medicate patient if ablewith pain meds or muscle relaxer). Hot packs provided. Delirium Screening Murillo Agitation Sedation Scale (RASS): Alert and calm Confusion Assessment Method-ICU (CAM-ICU/PCAM-ICU) Feature 3: Altered Level of Consciousness: Negative Cognition Cognition Overall Cognitive Status: Within Functional Limits Arousal/Alertness: Appropriate responses to stimuli Mood/Behavior: Alert Orientation Level: Oriented X4 Single Step Commands: Consistently Multi-Step Commands: Consistently Method of Communication: Verbal Safety Judgment: Good awareness of safety precautions Awareness of Errors: Good awareness of errors made Deficit Awareness: Fully aware of deficits Attention Span: Appears intact Self-Care Interventions Self Care/Home Management (ADLs) Time Entry: 24 Self_Care Interventions: Pt educated on sternal precautions prior to mobility and importance of carryover. Pt verbalized understanding and demonstrated good carryover. Pt. participated in functional endurance tasks in preparation for high level ADL routines. Pt. completed sit to stand from straightback chair with CGA. Pt. completed 320ft navigation task at hallway level to simulate ADL's in homeenvironment with SBA and rollator. Pt. tolerated task well with no safety concerns noted and no rest break required. Cues also provided throughout session to promote upright posture, activity pacing,and pursed lip breathing with improved carryover noted with session progression. OT monitored vitalsigns closely throughout session to assess for patient???s tolerance to treatment. Additional time spent educating patient/family on ADLs with sternal precautions, frequent mobility to decrease pain/improve activity tolerance, and potential needs for AE/DME at discharge. Pt educated on role of OT, discharge recommendations, and expectations for mobility while inpatient. Pt verbalized understanding but would benefit from continued education to improve carryover. Assessment Pt participated in OT session with a focus on ADL retraining and functional endurance. Pt toleratedwith fair energy for task. Pt with improved insight into deficits and ability to adhere to sternal precautions noted during session. Pt continues to benefit from skilled OT services to maximize safety/independence with ADLs/functional mobility tasks. OT Recommendations Discharge Destination: Home with assistance Discharge Equipment: Rollator Plan Continue OT POC. Goals OT GOAL DETAILS Goal Established Date Time Frame Goal Status OT Goal 1: Pt will complete total body dressing skills with modified independence and appropriate adaptive device. 03/23/25 2 weeks OT Goal 2: Pt will complete toileting skills with modified independence and appropriate adaptive device. 03/23/25 2 weeks OT Goal 3: Pt will complete functional transfers with modified independence and appropriate adaptive device to increase independence with toilet transfers. 03/23/25 2 weeks OT Goal 4: Pt will independently adhere to sternal precautions during all ADL tasks and functional transfers. 03/23/25 2 weeks Written by Viri Escalona on 03/29/25 at 12:37 PM. * Progress Notes - Hilda Mera, NATHANIEL - 03/29/2025 8:47 AM EDT Endocrine - Diabetes Progress Note: Subjective: 24 hour update: -AM BG 176 -PO intake good with meals. He states he is eating more unhealthy here compared to home, he plans on resuming similar diet to prior at discharge -he states he was keeping his BG under good control at home and sometimes not requiring insulin fora few days at a time -no questions or concerns regarding diabetes regimen at this time I have independently reviewed and interpreted the patient's blood glucose levels in Epic timeline, labs, vitals, and insulin doses administered in the electronic medical record. Review of Systems Constitutional: Negative for chills and fever. Respiratory: Negative for cough and shortness of breath. Cardiovascular: Negative for chest pain and leg swelling. Gastrointestinal: Negative for diarrhea, nausea and vomiting. Skin: Positive for wound. Negative for pallor. Neurological: Negative for dizziness and weakness. Psychiatric/Behavioral: Negative for confusion and decreased concentration. Objective: Physical Exam Vitals reviewed. Constitutional: General: He is not in acute distress. Appearance: Normal appearance. HENT: Head: Normocephalic. Nose: Nose normal. Mouth/Throat: Mouth: Mucous membranes are moist. Eyes: Extraocular Movements: Extraocular movements intact. Conjunctiva/sclera: Conjunctivae normal. Cardiovascular: Rate and Rhythm: Normal rate. Pulmonary: Effort: Pulmonary effort is normal. No respiratory distress. Abdominal: General: Abdomen is flat. Palpations: Abdomen is soft. Skin: General: Skin is warm and dry. Comments: Sternal wound incision dry, intact Neurological: General: No focal deficit present. Mental Status: He is alert and oriented to person, place, and time. Psychiatric: Mood and Affect: Mood normal. Behavior: Behavior normal. Thought Content: Thought content normal. BP 117/67 Pulse 78 Temp 36.7 ??C (98.1 ??F) (Oral) Resp 15 Ht 1.829 m (6') Wt 103 kg (226lb 13.7 oz) BMI 30.77 kg/m?? Medications: Current Scheduled Medications[1] Current Continuous Medications[2] Current PRN Medications[3] Lab Review: Results from last 7 days Lab Units 03/28/25 0435 SODIUM mmol/L 134* POTASSIUM mmol/L 4.2 CHLORIDE mmol/L 102 CO2 mmol/L 22 BUN mg/dL 20 CREATININE mg/dL 1.13 EGFR mL/min/1.73m*2 82.7 GLUCOSE mg/dL 196* CALCIUM mg/dL 9.1 Results from last 7 days Lab Units 03/28/25 0435 WBC 10*3/uL 6.01 HEMOGLOBIN g/dL 8.8* HEMATOCRIT % 26.6* PLATELETS 10*3/uL 218 Lab Results Component Value Date GLUCOSE 196 (H) 03/28/2025 GLUCOSE 200 (H) 03/27/2025 GLUCOSE 268 (H) 03/26/2025 PGLU 176 (H) 03/29/2025 PGLU 179 (H) 03/28/2025 PGLU 164 (H) 03/28/2025 PGLU 243 (H) 03/28/2025 PGLU 205 (H) 03/28/2025 PGLU 161 (H) 03/27/2025 PGLU 184 (H) 03/27/2025 PGLU 242 (H) 03/27/2025 Lab Results Component Value Date HGBA1C 7.2 (H) 02/17/2025 Diet: Dietary Orders (From admission, onward) Start Ordered 03/24/25 0804 Adult diet Diet texture: Regular; Carbohydrate restriction: Consistent Carb 2 (80 gm max/meal); Sodium restriction: No added salt (Adult Diet Panel) Diet effective now Comments: Unsweet tea please No sweetened juices References: IDDSI Diet Texture Guide Question Answer Comment Diet texture Regular Carbohydrate restriction: Consistent Carb 2 (80 gm max/meal) Sodium restriction: No added salt 03/24/25 0804 Assessment: Lizandro Gr is a 45 y.o. male PMH CAD, CKD, HLD, T2DM, Afib presented to [facility] for CABG on 03/22. Endocrine Diabetes team was consulted for glycemic management on 03/24/25 for post CABG glucose management. Primary team requests recommendations and orders Daily Glucose and Insulin Total Daily Dose -03/23: BG 126-176, insulin drip 1.68-4 u/hr -consulted 03/24, BG 143-208, TDD 34 units -03/25, BG 183-214, TDD 48 units -03/26 BG 197-260, TDD 59 units -03/27 BG 161-242, TDD 72 units -03/28 BG 164-243, TDD 76 units Diagnoses #DM, type 2 -A1c: 7.2 in February 2025 -Home regimen: Lantus: 80 units in PM (hasn't been taking most nights due to hypo episodes) Novolo units with meals (15 units if BG 130-170, hold is less than 130) Jardiance: recently stopped prior to surgery -Elevated HgA1C levels impact all body systems with increased risk for worsening of conditions including renal function, heart disease, eye disease, neuropathy, foot ulcerations, lower extremity amputation, gastroparesis, and overall increased risk for mortality #CAD #s/p CABG x4 03/22 Good glycemic control important to healing and infection prevention in post surgical setting #anemia Lab Results Component Value Date HGB 8.8 (L) 03/28/2025 -can lead to false low A1c. Must rely on intensive monitoring of glucose #CKD Lab Results Component Value Date BUN 20 03/28/2025 CREATININE 1.13 03/28/2025 EGFR 82.7 03/28/2025 -risks of prolonged excretion of insulin, insulin stacking and hypoglycemia. recommend caution withinsulin adjustments, requires intensive monitoring #obesity -leads to insulin resistance -complicating all aspects of care Plan -After review of glucose trends and insulin delivery over the last 24 hours, titration of intensiveinsulin therapy was made to overall improve glycemic control and improve patient outcomes Current Insulin Regimen: Basal: 30 units glargine in PM - increase to 34 units Bolus: 12 units lispro with meals - increase to 14 units Correction: resistant correction with CF 2:50>150 AC and 1:50>250 HS, 0300 -continue to assess blood glucose trends and adjust basal/bolus insulin therapy dose accordingly -continue intensive glucose monitoring due to increased risk for hyper/hypoglycemia secondary to insulin therapy -fsbg ac/hs when eating, q6h when NPO, on TF/TPN -correction insulin to be given for hyperglycemia, do not hold correction if patient does not eat -hypoglycemia protocol in place -please document the percentage of meals consumed in intake and output flowsheet -please notify us when diet orders change or steroids added as this impacts our treatment -plan and management discussed with patient, family member Discharge planning -Diabetes education: likely not needed -Follow-up plan: PCP, declines endocrinology services at discharge -tentative discharge medications (if discharged within 24 hours) Insulin regimen Glargine: 25 units in PM Lispro: 6 units + 1:50>150 with meals Continue Dexcom CGM May substitute for therapeutic equivalent per insurance and retail PharmD approval -Supplies/scripts needed: Ensure patient has working glucose meter and supplies DM/Endo team will continue to follow. Please notify us as patient nears discharge for final recommendations Please contact Hilda Mera APRN via secure chat or page us at [phone] during 7a-7p, Friday-Friday. For after hours please contact the on-call Endocrine Fellow. Thank you for the opportunity to participate in this patient's care. Time Spent: I personally spent a total of 35 minutes on this encounter. This time includes face to face with patient, counseling and discussion and/or coordination of care. [1] acetaminophen, 1,000 mg, Oral, q6h VIOLETTE allopurinol, 300 mg, Oral, Daily aspirin, 81 mg, Oral, Daily atorvastatin, 80 mg, Oral, Nightly docusate sodium, 100 mg, Oral, BID fenofibrate, 145 mg, Oral, Daily furosemide, 40 mg, Oral, Daily gabapentin, 300 mg, Oral, BID heparin (porcine), 5,000 Units, Subcutaneous, q8h VIOLETTE insulin glargine-yfgn, 30 Units, Subcutaneous, Nightly insulin lispro, 0-10 Units, Subcutaneous, TID with meals insulin lispro, 0-3 Units, Subcutaneous, Twice at night Insulin Lispro, 12 Units, Subcutaneous, TID with meals lidocaine, 2 patch, Apply externally, q24h magnesium hydroxide, 30 mL, Oral, Daily methocarbamol, 1,000 mg, Oral, 4x daily metoprolol tartrate, 12.5 mg, Oral, BID pantoprazole, 40 mg, Oral, Daily polyethylene glycol, 17 g, Oral, BID senna, 17.2 mg, Oral, BID simethicone, 80 mg, Oral, 4x daily sodium chloride, 10 mL, Intravenous, q12h traMADol, 50 mg, Oral, q6h [2] [3] PRN medications: bisacodyl, ondansetron, oxyCODONE OR oxyCODONE, smog, sodium chloride, sodium chloride * Progress Notes - Ephraim Hicks APRN - 03/29/2025 8:38 AM EDT CVT Progress Note Chief Complaint: CAD 24 Hour Events/HPI: Reports improvement in pain. Did not utilize prn IV dilaudid in past 24 hrs. Has been walking multiple times per day. Reports he has been utilizing IS consistently and is now pulling 1250 vs 500 yd. Agreeable to plan to transition from dilaudid to oxycodone. Tolerating PO. BM x 1 yd Review of Systems: A complete ROS was obtained. All were negative except as noted in HPI. Objective: All laboratory data, images, tracings, and vital sign data for past 24 hours are personally reviewed unless otherwise noted. All images personally reviewed and I agree with the radiology interpretation @PATIENTWT@ , Weight: 105 kg (232 lb 7.6 oz) , Ht Readings from Last 1 Encounters: 03/22/25 1.829 m (6') , Body mass index is 30.77 kg/m??. VITALS (last 24h) Temp: [36.7 ??C (98 ??F)-37.1 ??C (98.8 ??F)] 36.7 ??C (98.1 ??F) Heart Rate: [78-88] 78 BP: (99-123)/(55-67) 117/67 Visit Vitals BP 117/67 Pulse 78 Temp 36.7 ??C (98.1 ??F) (Oral) Resp 15 Ht 1.829 m (6') Wt 103 kg (226 lb 13.7 oz) SpO2 95% BMI 30.77 kg/m?? Smoking Status Never BSA 2.29 m?? I & O Summary Intake/Output Summary (Last 24 hours) at 03/29/2025 0838 Last data filed at 03/29/2025 0600 Gross per 24 hour Intake 2205 ml Output 3425 ml Net -1220 ml LABS CBC WBC ?? Hb ?? Plt ?? Hct ?? ANC ?? INR ??, PTT ??, Anti-Xa ?? BMP Na ?? Cl ?? BUN ?? Glu ?? K ?? Co2 ?? Cr ?? Ca ?? iCa ?? Mg ??, Phos ?? Lactate ?? LFT AST ?? AlkPhos ?? T Prot ?? ALK ?? Bili ?? Alb ?? D.Bili ?? HOURS) MEDICATIONS Current Scheduled Medications[1] Current Continuous Medications[2] Current PRN Medications[3] Physical Exam: GENERAL: 45M. NAD on RA EYES: No scleral icterus or conjunctivitis HENT: Atraumatic, normocephalic, nares patent, mucus membranes moist NECK: Supple, trachea midline RESP/CHEST: Clear to auscultation bilaterally, decreased in bases, with symmetric expansion; non labored. Sternum stable, sternotomy as noted below. CARD: RRR. S1S2. No murmur, rub, or gallop. No JVD. Trace bilateral lower extremity edema. Pedal pulses palpable +2. Extremities: No cyanosis or clubbing. GI: Soft, nontender, nondistended. BS present and normoactive x 4 quadrants SKIN: No rash. Midsternal incision CDI, edges well approximated. EVH site well approx. Dark bloody drainage noted from previous drain site. NEURO: AAOx4. Motor intact and no focal deficits PSYCH: Mood and affect congruent and appropriate to situation. Assessment and Plan: Mr. Lizandro Gr is a 45 year old male with PMH significant for hypertension, hyperlipidemia, DM II, CKD3, GERD, and obesity. His PCP noted his CT calcium score elevated at 876 and referred him for stress test. The stress test results were suggestive of possible multivessel CAD or balanced ischemia. He was then referred to cardiology for cardiac catheterization which confirmed multivessel CAD. He is now s/p CABG x 4 on 03/22. Multivessel CAD (POA) S/p CABG x 4 on 03/22 - Median Sternotomy, coronary artery bypass grafting, endoscopic vein [id number] saphenous. Vein the ascending aorta the 1st diagonal. Vein from the side of the 1st diagonal graft to the 1st obtuse marginal. Vein from ascending aorta to the posterior descending coronary artery. Left internal mammary artery skeletonized in Situ left anterior descending coronary artery. (3 vein grafts, 1 arterial graft, endoscopic vein harvest) - ASA, statin, BB - Routine post cardiac surgery care: sternal precautions x 6 weeks, PT, bowel regimen to prevent constipation and aggressive pulmonary toilet. Volume overload - admission weight 105 kg - daily weights/I&Os - CXR prn - daily po lasix - current weight 103 kg Acute blood loss anemia - monitor and transfuse for Hgb < 7 - H/H 7.5/22.8 - 6/21: H/H 7.8/23.9 - /22: H/H 8.8/27.3 - /23: H/H 8.8/26.3 Hypocalcemia - monitor and replete prn Hypophosphatemia - monitor and replete prn Acute postoperative pain - MMPC DM II (POA) Diabetic neuropathy (POA) Postoperative hyperglycemia - A1c 7.2 - holding home jardiance - SSI CKD 3 (POA) - creatinine 1.46 on admission - avoid nephrotoxic agents - renally dose medications - holding home kerendia Hypertension (POA) - holding home lisinopril, hydrochlorothiazide, and diltiazem Hyperlipidemia (POA) Hypertriglyceridemia (POA) Hypoalphalipoproteinemia (POA) - statin Gout (POA) - home allopurinol GERD (POA) - continue PPI Chronic pain (POA) - home tramadol and gabapentin Obesity (POA) - BMI 32.35 - complicates all aspects of care Leukocytosis (resolved) Hypomagnesemia (resolved) Thrombocytopenia (resolved) Plan: Continue mobilization and IS use Tx from dilaudid to oxycodone If pain controlled with prn oxycodone then tentative plan for DC home tomorrow. Cardiothoracic Surgery [phone] [1] acetaminophen, 1,000 mg, Oral, q6h [facility] allopurinol, 300 mg, Oral, Daily aspirin, 81 mg, Oral, Daily atorvastatin, 80 mg, Oral, Nightly docusate sodium, 100 mg, Oral, BID fenofibrate, 145 mg, Oral, Daily furosemide, 40 mg, Oral, Daily gabapentin, 300 mg, Oral, BID heparin (porcine), 5,000 Units, Subcutaneous, q8h [facility] insulin glargine-yfgn, 30 Units, Subcutaneous, Nightly insulin lispro, 0-10 Units, Subcutaneous, TID with meals insulin lispro, 0-3 Units, Subcutaneous, Twice at night Insulin Lispro, 12 Units, Subcutaneous, TID with meals lidocaine, 2 patch, Apply externally, q24h magnesium hydroxide, 30 mL, Oral, Daily methocarbamol, 1,000 mg, Oral, 4x daily metoprolol tartrate, 12.5 mg, Oral, BID pantoprazole, 40 mg, Oral, Daily polyethylene glycol, 17 g, Oral, BID senna, 17.2 mg, Oral, BID simethicone, 80 mg, Oral, 4x daily sodium chloride, 10 mL, Intravenous, q12h traMADol, 50 mg, Oral, q6h [2] [3] PRN medications: bisacodyl, ondansetron, oxyCODONE OR oxyCODONE, smog, sodium chloride, sodium chloride * Consults - Kassy Mejia RD - 03/28/2025 3:30 PM EDT Adult Nutrition Evaluation Note Lizandro Gr 45 y.o. male CSN: [id number] Room/Bed 119/119A Nutrition evaluation type: follow-up Reason for evaluation: Hospital course: 45 yo male S/P CABG on 03/22. Clear Liquid diet initiated. Past medical/ surgical history: has a past medical history of CAD, multiple vessel (03/22/2025), Chronic kidney disease, Coronary artery disease, GERD (gastroesophageal reflux disease), Hyperlipidemia, Hypertension, and Type 2 diabetes mellitus. Social history: Additional comments: 03/23: Pt asleep at time of visit. RN reports pt wants to continue with CLD for now. Discussed on CCM team rounds. Vitals and Basic Assessment: BP: 123/65 Temp: 36.9 ??C (98.5 ??F) Invasive Ventilator Initiated (ETT/Trach Only): Yes Oxygen Therapy: None (Room air) O2 Delivery Method: Nasal cannula Darrell Coma Scale Score: 15 Gato Scale Score: 20 Christofer/Cubbin Pressure Risk Score: 45 Most Recent BM Date: 03/28/25 GI Symptoms: Constipation Edema: Generalized Allergies: NKA Medications: Current Scheduled Medications[1] Current Continuous Medications[2] Current PRN Medications[3] Meds were reviewed: Yes Labs: Labs in last 18 hours CBC WBC 6.01 Hb 8.8 (L) Plt 218 Hct 26.6 (L) ANC ?? INR ??, PTT ??, Anti-Xa ?? BMP Na 134 (L) Cl 102 BUN 20 Glu 196 (H) K 4.2 Co2 22 Cr 1.13 Ca 9.1 iCa ?? Mg 1.9, Phos ?? Lactate ?? LFT AST 32 AlkPhos 67 T Prot 6.3 ALK 35 Bili 0.8 Alb ?? D.Bili ?? HgA1C 7.2 (02/17) Anthropometrics: Height: 182.9 cm (6') Weight: 104 kg (228 lb 13.4 oz) BMI (Calculated): 31.03 Weight Evaluation: Obese-Class 1 (BMI 30-34.9) Morrill Body Weight (kg): 80.9 Percent Morrill Body Weight: 128 Adjusted Body Weight (kg): 86.9 Estimated Needs: Kcal/ K-25 Kcal Provided: Metabolic Cart Study Results: Current Nutrition Intake: Diet Supplements: Impact AR Diet Order: Adult Diet Diet Texture: Regular Adult Carbohydrate Restriction: Consistent CHO 2 ([id number] Alex, 80 g/meal) Adult Sodium Restriction: No added salt Percent Meals Eaten (%): 50-100% x 5 days Diet Experience and Nutrition History: Diet Education Provided: Will monitor Pertinent home medications: Jainism needs: Nutrition Focused Physical Exam: Unable to Complete Exam: Patient unable to participate Physical exam performed on (date): Assessment of Malnutrition: Nutrition Problem: Increased nutrient needs prot related to post-op recovery as evidenced by indication for surgical ONS. Status of Nutrition Diagnosis: Ongoing Nutrition Interventions and Recommendations: - CC2, Cardiac diet as tolerated. - Impact AR BID for post-op nutritional supplement - Nutrition Monitoring and Goals: - intake >/= 75% meals (progressing) - Impact AR BID x 5 days (met, can d/c) Acuity Level: [address], LD [1] acetaminophen, 1,000 mg, Oral, q6h VIOLETTE allopurinol, 300 mg, Oral, Daily aspirin, 81 mg, Oral, Daily atorvastatin, 80 mg, Oral, Nightly docusate sodium, 100 mg, Oral, BID fenofibrate, 145 mg, Oral, Daily furosemide, 40 mg, Oral, Daily gabapentin, 300 mg, Oral, BID heparin (porcine), 5,000 Units, Subcutaneous, q8h VIOLETTE insulin glargine-yfgn, 30 Units, Subcutaneous, Nightly insulin lispro, 0-10 Units, Subcutaneous, TID with meals insulin lispro, 0-3 Units, Subcutaneous, Twice at night Insulin Lispro, 12 Units, Subcutaneous, TID with meals lidocaine, 2 patch, Apply externally, q24h magnesium hydroxide, 30 mL, Oral, Daily methocarbamol, 1,000 mg, Oral, 4x daily metoprolol tartrate, 12.5 mg, Oral, BID pantoprazole, 40 mg, Oral, Daily polyethylene glycol, 17 g, Oral, BID senna, 17.2 mg, Oral, BID simethicone, 80 mg, Oral, 4x daily sodium chloride, 10 mL, Intravenous, q12h traMADol, 50 mg, Oral, q6h [2] [3] PRN medications: bisacodyl, HYDROmorphone, HYDROmorphone, ondansetron, smog, sodium chloride, sodium chloride * Care Plan - Doctor, Maureen Cordova RN - 03/28/2025 2:44 PM EDT Problem: Adult Inpatient Plan of Care Goal: Plan of Care Review Outcome: Ongoing, Progressing Flowsheets (Taken 03/28/2025 1444) Progress: improving Plan of Care Reviewed With: patient spouse Goal: Patient-Specific Goal (Individualized) Outcome: Ongoing, Progressing Flowsheets (Taken 03/28/2025 0800) Patient/Family-Specific Goals (Include Timeframe): Pt will ambulate in the hallway 3 times today. Individualized Care Needs: Ambulation and pain control Anxieties, Fears or Concerns: Pain Goal: Absence of Hospital-Acquired Illness or Injury Outcome: Ongoing, Progressing Goal: Optimal Comfort and Wellbeing Outcome: Ongoing, Progressing Goal: Readiness for Transition of Care Outcome: Ongoing, Progressing Problem: Infection Goal: Absence of Infection Signs and Symptoms Outcome: Ongoing, Progressing Problem: Cardiovascular Surgery Goal: Improved Activity Tolerance Outcome: Ongoing, Progressing Goal: Optimal Coping with Heart Surgery Outcome: Ongoing, Progressing Goal: Absence of Bleeding Outcome: Ongoing, Progressing Goal: Effective Bowel Elimination Outcome: Ongoing, Progressing Goal: Effective Cardiac Function Outcome: Ongoing, Progressing Goal: Optimal Cerebral Tissue Perfusion Outcome: Ongoing, Progressing Goal: Fluid and Electrolyte Balance Outcome: Ongoing, Progressing Goal: Blood Glucose Level Within Target Range Outcome: Ongoing, Progressing Goal: Absence of Infection Signs and Symptoms Outcome: Ongoing, Progressing Goal: Anesthesia/Sedation Recovery Outcome: Ongoing, Progressing Goal: Acceptable Pain Control Outcome: Ongoing, Progressing Goal: Nausea and Vomiting Relief Outcome: Ongoing, Progressing Goal: Effective Urinary Elimination Outcome: Ongoing, Progressing Goal: Effective Oxygenation and Ventilation Outcome: Ongoing, Progressing Problem: Pain Acute Goal: Optimal Pain Control and Function Outcome: Ongoing, Progressing Problem: Self-Care Deficit Goal: Improved Ability to Complete Activities of Daily Living Outcome: Ongoing, Progressing Problem: Wound Goal: Improved Oral Intake Outcome: Ongoing, Progressing Problem: Chest Pain Goal: Resolution of Chest Pain Symptoms Outcome: Ongoing, Progressing * Progress Notes - Ephraim Hicks APRN - 03/28/2025 12:43 PM EDT CVT Progress Note Chief Complaint: CAD 24 Hour Events/HPI: Reports pain was poorly controlled again overnight and he required IV dilaudid. Discussed pain goals and need to be off intravenous pain medication prior to discharge home. Also discussed proper IS use as pt was not using IS correctly. Review of Systems: A complete ROS was obtained. All were negative except as noted in HPI. Objective: All laboratory data, images, tracings, and vital sign data for past 24 hours are personally reviewed unless otherwise noted. All images personally reviewed and I agree with the radiology interpretation @PATIENTWT@ , Weight: 105 kg (232 lb 7.6 oz) , Ht Readings from Last 1 Encounters: 03/22/25 1.829 m (6') , Body mass index is 31.04 kg/m??. VITALS (last 24h) Temp: [36.5 ??C (97.7 ??F)-36.9 ??C (98.5 ??F)] 36.9 ??C (98.5 ??F) Heart Rate: [67-88] 88 Resp: [15-18] 15 BP: (94-129)/(54-74) 123/65 Visit Vitals BP 123/65 (BP Location: Right arm, Patient Position: Sitting) Pulse 88 Temp 36.9 ??C (98.5 ??F) (Oral) Resp 15 Ht 1.829 m (6') Wt 104 kg (228 lb 13.4 oz) SpO2 93% BMI 31.04 kg/m?? Smoking Status Never BSA 2.3 m?? I & O Summary Intake/Output Summary (Last 24 hours) at 03/28/2025 1243 Last data filed at 03/28/2025 0400 Gross per 24 hour Intake 1200 ml Output 3700 ml Net -2500 ml LABS CBC WBC 6.01 Hb 8.8 (L) Plt 218 Hct 26.6 (L) ANC ?? INR ??, PTT ??, Anti-Xa ?? BMP Na 134 (L) Cl 102 BUN 20 Glu 196 (H) K 4.2 Co2 22 Cr 1.13 Ca 9.1 iCa ?? Mg 1.9, Phos ?? Lactate ?? LFT AST 32 AlkPhos 67 T Prot 6.3 ALK 35 Bili 0.8 Alb ?? D.Bili ?? HOURS) MEDICATIONS Current Scheduled Medications[1] Current Continuous Medications[2] Current PRN Medications[3] Physical Exam: GENERAL: 45M. NAD on RA EYES: No scleral icterus or conjunctivitis HENT: Atraumatic, normocephalic, nares patent, mucus membranes moist NECK: Supple, trachea midline RESP/CHEST: Clear to auscultation bilaterally, decreased in bases, with symmetric expansion; non labored. Sternum stable, sternotomy as noted below. CARD: RRR. S1S2. No murmur, rub, or gallop. No JVD. Trace bilateral lower extremity edema. Pedal pulses palpable +2. Extremities: No cyanosis or clubbing. GI: Soft, nontender, nondistended. BS present and normoactive x 4 quadrants SKIN: No rash. Midsternal incision CDI, edges well approximated. EVH site well approx. Dark bloody drainage noted from previous drain site. NEURO: AAOx4. Motor intact and no focal deficits PSYCH: Mood and affect congruent and appropriate to situation. Assessment and Plan: Mr. Lizandro Gr is a 45 year old male with PMH significant for hypertension, hyperlipidemia, DM II, CKD3, GERD, and obesity. His PCP noted his CT calcium score elevated at 876 and referred him for stress test. The stress test results were suggestive of possible multivessel CAD or balanced ischemia. He was then referred to cardiology for cardiac catheterization which confirmed multivessel CAD. He is now s/p CABG x 4 on 03/22. Multivessel CAD (POA) S/p CABG x 4 on 03/22 - Median Sternotomy, coronary artery bypass grafting, endoscopic vein mzahsyg-svebr-wvgqsts saphenous. Vein the ascending aorta the 1st diagonal. Vein from the side of the 1st diagonal graft to the 1st obtuse marginal. Vein from ascending aorta to the posterior descending coronary artery. Left internal mammary artery skeletonized in Situ left anterior descending coronary artery. (3 vein grafts, 1 arterial graft, endoscopic vein harvest) - ASA, statin, BB - Routine post cardiac surgery care: sternal precautions x 6 weeks, PT, bowel regimen to prevent constipation and aggressive pulmonary toilet. Volume overload - admission weight 105 kg - daily weights/I&Os - CXR prn - daily po lasix - current weight 104 kg Acute blood loss anemia - monitor and transfuse for Hgb < 7 - H/H 7.5/22.8 - 6/21: H/H 7.8/23.9 - 6/22: H/H 8.8/27.3 Hypocalcemia - monitor and replete prn Hypophosphatemia - monitor and replete prn Acute postoperative pain - MMPC DM II (POA) Diabetic neuropathy (POA) Postoperative hyperglycemia - A1c 7.2 - holding home jardiance - SSI CKD 3 (POA) - creatinine 1.46 on admission - avoid nephrotoxic agents - renally dose medications - holding home kerendia Hypertension (POA) - holding home lisinopril, hydrochlorothiazide, and diltiazem Hyperlipidemia (POA) Hypertriglyceridemia (POA) Hypoalphalipoproteinemia (POA) - statin Gout (POA) - home allopurinol GERD (POA) - continue PPI Chronic pain (POA) - home tramadol Obesity (POA) - BMI 32.35 - complicates all aspects of care Leukocytosis (resolved) Hypomagnesemia (resolved) Thrombocytopenia (resolved) Plan: Encourage mobilization Encourage proper IS use Bowel regimen Wean pain medication as tolerated. Cardiothoracic Surgery [phone] [1] acetaminophen, 1,000 mg, Oral, q6h VIOLETTE allopurinol, 300 mg, Oral, Daily aspirin, 81 mg, Oral, Daily atorvastatin, 80 mg, Oral, Nightly docusate sodium, 100 mg, Oral, BID fenofibrate, 145 mg, Oral, Daily furosemide, 40 mg, Oral, Daily gabapentin, 300 mg, Oral, BID heparin (porcine), 5,000 Units, Subcutaneous, q8h VIOLETTE insulin glargine-yfgn, 30 Units, Subcutaneous, Nightly insulin lispro, 0-10 Units, Subcutaneous, TID with meals insulin lispro, 0-3 Units, Subcutaneous, Twice at night Insulin Lispro, 12 Units, Subcutaneous, TID with meals lidocaine, 2 patch, Apply externally, q24h magnesium hydroxide, 30 mL, Oral, Daily methocarbamol, 1,000 mg, Oral, 4x daily metoprolol tartrate, 12.5 mg, Oral, BID pantoprazole, 40 mg, Oral, Daily polyethylene glycol, 17 g, Oral, BID senna, 17.2 mg, Oral, BID simethicone, 80 mg, Oral, 4x daily sodium chloride, 10 mL, Intravenous, q12h traMADol, 50 mg, Oral, q6h [2] [3] PRN medications: bisacodyl, HYDROmorphone, HYDROmorphone, ondansetron, smog, sodium chloride, sodium chloride * Progress Notes - Afshan Hannah - 03/28/2025 9:12 AM EDT Case Management Adult Progress Note Lizandro Gr 45 y.o. male CSN: [id number] Admission: 03/22/2025 5:35 AM Primary Problem: CAD (coronary artery disease) Anticipated Discharge Date: TBD Has Discharge Plans Changed? No Housing Circumstances: Not Applicable Housing Circumstances Action Taken: Other N/A Additional Comments SW spoke with primary team this date re: pt's plan of care. According to primary team, this pt is not medically stable for DC this date but may be stable within 72 hrs. Per team, pt's pain med requirement too high for DC and pain requires further management. See medical notes for more detail. No further SW concerns identified at this time. SW will monitor pt's progress and will follow up with DC planning and needs as appropriate. GEORGETTE Donaldson * Consults - Mateusz Amezquita - 03/28/2025 8:45 AM EDT Pastoral Care Note: Patient was appreciative of traveler changer's visit. was on the bed side supporting him. The chaplainprovided patient supportive listen, emotional support and spiritual support. The family appreciate traveler changer as they informed the traveler changer that they maybe discharged today. Referral From: Auto Fleet Manager Initiated Pastoral Care Provided For: Patient, Spouse Patient Profile: Consult Reasons: Prayer, Emotional support, Spiritual support, Non-urgent referral Spiritual Assessment: Support Systems/ Spiritual Resources: [place], Family, Prayer, Gratitude, Trust Spiritual Needs: Prayer, Emotional support, Spiritual support Interventions: Interventions Provided: Affirm acceptance and gratitude, Emotional support, Family support, Prayer,Supportive Listening, Spiritual support Pastoral Care Outcomes: Patient Outcomes: Demonstrates lower level of Anxious(ness), Being at peace, Is knowledgeable aboutChaplaincy Services, Gratitude, Expresses emotionally release, Expresses feeling spiritually nurtured, Appreciative of Auto Fleet Manager Support, Communicates increased satisfaction with hospital experience, Is functionally engaged in meaning making, Demonstrates and/or verbalizes increased comfort Cosigned by Eva French at 03/31/2025 9:46 AM EDT Associated attestation - Eva French - 03/31/2025 9:46 AM EDT This is to attest traveler changer internet marketing specialist chart note has been reviewed and okayed. * Progress Notes - Maritza Khanna APRN - 03/28/2025 8:05 AM EDT -Nahun Gr is a 45 y.o. male PMH CAD, CKD, HLD, T2DM, Afib presented to [facility] for CABG on 03/22. 24 hr update: - hyperglycemic yesterday, insulin doses adjusted, glucose improved at HS -AM BG elevated 196 I have reviewed the patient's blood glucose levels, labs, vitals, and insulin doses administered inthe electronic medical record. Objective Vitals Temp: [36.5 ??C (97.7 ??F)-36.9 ??C (98.5 ??F)] 36.7 ??C (98.1 ??F) Heart Rate: [67-90] 67 Resp: [15-18] 15 BP: (94-129)/(54-74) 128/59 Results from last 7 days Lab Units 03/28/25 0435 SODIUM mmol/L 134* POTASSIUM mmol/L 4.2 CHLORIDE mmol/L 102 CO2 mmol/L 22 BUN mg/dL 20 CREATININE mg/dL 1.13 EGFR mL/min/1.73m*2 82.7 GLUCOSE mg/dL 196* CALCIUM mg/dL 9.1 Results from last 7 days Lab Units 03/28/25 0435 WBC 10*3/uL 6.01 HEMOGLOBIN g/dL 8.8* HEMATOCRIT % 26.6* PLATELETS 10*3/uL 218 Lab Results Component Value Date GLUCOSE 196 (H) 03/28/2025 GLUCOSE 200 (H) 03/27/2025 GLUCOSE 268 (H) 03/26/2025 PGLU 161 (H) 03/27/2025 PGLU 184 (H) 03/27/2025 PGLU 242 (H) 03/27/2025 PGLU 211 (H) 03/27/2025 PGLU 189 (H) 03/27/2025 PGLU 260 (H) 03/26/2025 PGLU 211 (H) 03/26/2025 PGLU 254 (H) 03/26/2025 Lab Results Component Value Date HGBA1C 7.2 (H) 02/17/2025 I have personally reviewed and interpreted the patient's blood glucose levels, pertinent diabetes related labs, and insulin doses administered in the electronic medical record Assessment & Plan CAD (coronary artery disease) Hypertension HLD (hyperlipidemia) S/P CABG x 4 GERD (gastroesophageal reflux disease) 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) Postoperative pain Obesity (BMI 30-39.9) Cardiac volume overload Acute blood loss anemia Thrombocytopenia (CMS/HCC) Hypocalcemia Hypophosphatemia Hypomagnesemia Transient hyperglycemia post procedure Stage 3b chronic kidney disease (CMS/HCC) Gout Chronic pain Leukocytosis Hypertriglyceridemia Hypoalphalipoproteinemia Lizandro Gr is a 45 y.o. male PMH CAD, CKD, HLD, T2DM, Afib presented to [facility] for CABG on 03/22. Endocrine Diabetes team was consulted for glycemic management on 03/24/25 for post CABG glucose management. Primary team requests recommendations and orders Daily Glucose and Insulin Total Daily Dose -03/23: BG 126-176, insulin drip 1.68-4 u/hr -consulted 03/24, BG 143-208, TDD 34 units -03/25, BG 183-214, TDD 48 units -03/26 BG 197-260, TDD 59 units Diagnoses #CAD #s/p CABG x4 03/22 Good glycemic control important to healing and infection prevention in post surgical setting #Anemia Lab Results Component Value Date HGB 8.8 (L) 03/28/2025 -can impair glucose homeostasis and may negatively affect glycemic control secondary to red blood cell turnover, can cause false low A1c reading -will require intensive glucose monitoring given anemia potential incongruency with A1c and blood glucose readings. #CKD -risks of prolonged excretion of insulin, insulin stacking and hypoglycemia. recommend caution withinsulin adjustments, requires intensive monitoring #obesity BMI 32.17 -leads to insulin resistance -complicating all aspects of care #DM, type 2 uncontrolled -A1c: 7.2 in February 2025 -Home regimen: Lantus: 80 units in PM (hasn't been taking most nights due to hypo episodes) Novolo units with meals (15 units if BG 130-170, hold is less than 130) Jardiance: recently stopped prior to surgery -Elevated HgA1C levels impact all body systems with increased risk for worsening of conditions including renal function, heart disease, eye disease, neuropathy, foot ulcerations, lower extremity amputation, gastroparesis, and overall increased risk for mortality Diabetes Management PLAN for 03/28/25: Current Insulin Regimen: Basal: 30 units glargine in PM Bolus: 12 units lispro with meals -Give 1/2 dose if eating 25-50% of meal -HOLD if patient NPO or if patient eats less than 25% of meal -Please document % of meal consumed in intake and output flowsheet Correction: resistant correction with CF 2:50>150 AC and 1:50>250 HS, 0300 -Will monitor glycemic response to insulin changes made yesterday -fsbg ac/hs when eating, q6h when NPO, on TF/TPN -correction insulin to be given for hyperglycemia, do not hold if pt does not eat/TF held, must be given within one hour of fingerstick or risk hypoglycemia -prandial/scheduled mealtime insulin dose is to be given based on how much patient eats. Nursing toobserve and document % eaten and dose insulin according to parameters in order -hypoglycemia protocol in place -please document the percentage of meals consumed in intake and output flowsheet -please notify us when diet orders change or steroids added as this impacts our treatment -plan and management discussed with patient, family member, bedside RN -Continue intensive subcutaneous insulin regimen with four or more injections per day, adjusting doses based on glucose readings and nutrtional intake. -Continue intensive glucose monitoring given high risk for hyperglycemia /hypoglycemia secondary tointensive insulin therapy. DM team will follow daily and adjust dosing as needed -One of the principal benefit of intensive insulin therapy and glucose monitoring is a decrease in infection-related complications and mortality -after review of glucose trends and insulin delivery over the last 24 hours, titration of intensiveinsulin therapy was made to overall improve glycemic control and improve patient outcomes Discharge planning -Diabetes education: likely not needed -Follow-up plan: PCP and Offer [facility] endocrinology services at discharge -Tentative discharge medications: Insulin regimen- dosing TBD Continue Dexcom CGM May substitute for therapeutic equivalent per insurance and retail PharmD approval -Supplies/scripts needed: Ensure patient has working glucose meter and supplies DM/Endo team will continue to follow. Please notify us as discharge nears for final recommendations. * Please contact Maritza Khanna NP via secure chat or page us at [phone] during 7a-7p, Sun-Sat. For after hours, weekends, holidays please contact the on-call Endocrine Fellow. Thank you for allowing us to participate in the care of this patient. * Care Plan - Malinda Mathis RN - 03/27/2025 7:05 PM EDT Problem: Adult Inpatient Plan of Care Goal: Plan of Care Review Outcome: Ongoing, Progressing Flowsheets (Taken 03/27/20251850) Progress: improving Plan of Care Reviewed With: patient significant other Problem: Adult Inpatient Plan of Care Goal: Patient-Specific Goal (Individualized) Outcome: Ongoing, Progressing Flowsheets (Taken 03/27/2025 0800) Patient/Family-Specific Goals (Include Timeframe): Pt will report pain is adequately controlled this shift. Individualized Care Needs: Pain control and pain and educate on pain scale and that prn meds are not scheduled. Anxieties, Fears or Concerns: Pain Problem: Adult Inpatient Plan of Care Goal: Absence of Hospital-Acquired Illness or Injury Outcome: Ongoing, Progressing Intervention: Identify and Manage Fall Risk Flowsheets (Taken 03/27/20251850) Safety Promotion/Fall Prevention: activity supervised assistive device/personal items within reach fall prevention program maintained clutter-free environment maintained lighting adjusted mobility aid in reach room organization consistent nonskid shoes/slippers when out of bed safety round/check completed toileting scheduled Intervention: Prevent Skin Injury Flowsheets Taken 03/27/20251850 Skin Protection: pulse oximeter probe site changed incontinence pads utilized Taken 03/27/2025 1700 Body Position: weight shifting Intervention: Prevent and Manage VTE (Venous Thromboembolism) Risk Flowsheets (Taken 03/27/2025 1200) VTE Prevention/Management: medication Problem: Adult Inpatient Plan of Care Goal: Absence of Hospital-Acquired Illness or Injury Intervention: Identify and Manage Fall Risk Flowsheets (Taken 03/27/20251850) Safety Promotion/Fall Prevention: activity supervised assistive device/personal items within reach fall prevention program maintained clutter-free environment maintained lighting adjusted mobility aid in reach room organization consistent nonskid shoes/slippers when out of bed safety round/check completed toileting scheduled Problem: Adult Inpatient Plan of Care Goal: Absence of Hospital-Acquired Illness or Injury Intervention: Prevent Skin Injury Flowsheets Taken 03/27/20251850 Skin Protection: pulse oximeter probe site changed incontinence pads utilized Taken 03/27/2025 1700 Body Position: weight shifting Problem: Adult Inpatient Plan of Care Goal: Absence of Hospital-Acquired Illness or Injury Intervention: Prevent and Manage VTE (Venous Thromboembolism) Risk Flowsheets (Taken 03/27/2025 1200) VTE Prevention/Management: medication Problem: Infection Goal: Absence of Infection Signs and Symptoms Outcome: Ongoing, Progressing Problem: Cardiovascular Surgery Goal: Improved Activity Tolerance Outcome: Ongoing, Progressing Intervention: Optimize Tolerance for Activity Flowsheets (Taken 03/27/20251850) Environmental Support: calm environment promoted environmental consistency promoted rooming-in facilitated personal routine supported caregiver consistency promoted Self-Care Promotion: independence encouraged Problem: Cardiovascular Surgery Goal: Improved Activity Tolerance Intervention: Optimize Tolerance for Activity Flowsheets (Taken 03/27/20251850) Environmental Support: calm environment promoted environmental consistency promoted rooming-in facilitated personal routine supported caregiver consistency promoted Self-Care Promotion: independence encouraged Problem: Cardiovascular Surgery Goal: Optimal Coping with Heart Surgery Outcome: Ongoing, Progressing Intervention: Support Psychosocial Response to Surgery Flowsheets (Taken 03/27/20251850) Supportive Measures: active listening utilized counseling provided decision-making supported goal-setting facilitated positive reinforcement provided relaxation techniques promoted self-care encouraged self-responsibility promoted verbalization of feelings encouraged self-reflection promoted Family/Support System Care: caregiver stress acknowledged involvement promoted self-care encouraged presence promoted support provided Problem: Cardiovascular Surgery Goal: Absence of Bleeding Outcome: Ongoing, Progressing Problem: Cardiovascular Surgery Goal: Effective Bowel Elimination Outcome: Ongoing, Progressing Intervention: Enhance Bowel Motility and Elimination Flowsheets (Taken 03/27/20251850) Bowel Elimination Management: toileting offered other (see comments) Bowel Motility Enhancement: ambulation promoted fluid intake encouraged oral intake encouraged Note: Bowel Reg given Problem: Cardiovascular Surgery Goal: Optimal Cerebral Tissue Perfusion Outcome: Ongoing, Progressing Intervention: Protect and Optimize Cerebral Perfusion Flowsheets (Taken 03/27/20251850) Glycemic Management: blood glucose monitored Sensory Stimulation Regulation: care clustered lighting decreased quiet environment promoted Cerebral Perfusion Promotion: blood pressure monitored Head of Bed (HOB) Positioning: HOB at 30 degrees Problem: Cardiovascular Surgery Goal: Fluid and Electrolyte Balance Outcome: Ongoing, Progressing Intervention: Monitor and Manage Fluid and Electrolyte Balance Flowsheets (Taken 03/27/20251850) Fluid/Electrolyte Management: other (see comments) Note: Monitoring labs Problem: Cardiovascular Surgery Goal: Blood Glucose Level Within Target Range Outcome: Ongoing, Progressing Intervention: Optimize Glycemic Control Flowsheets (Taken 03/27/20251850) Glycemic Management: blood glucose monitored Problem: Cardiovascular Surgery Goal: Absence of Infection Signs and Symptoms Outcome: Ongoing, Progressing Intervention: Prevent or Manage Infection Flowsheets (Taken 03/27/20251850) Infection Prevention: environmental surveillance performed equipment surfaces disinfected hand hygiene promoted rest/sleep promoted single patient room provided Problem: Cardiovascular Surgery Goal: Effective Urinary Elimination Outcome: Ongoing, Progressing Intervention: Monitor and Manage Urinary Retention Flowsheets (Taken 03/27/20251850) Urinary Elimination Promotion: frequent voiding encouraged toileting offered positioned for ease of voiding toileting device within reach Problem: Cardiovascular Surgery Goal: Effective Oxygenation and Ventilation Outcome: Ongoing, Progressing Intervention: Promote Airway Secretion Clearance Flowsheets Taken 03/27/20251850 Patient Tolerance (IS): fair Taken 03/27/2025 1200 Administration (IS): previous patient education reinforced instruction provided, follow-up self-administered Taken 03/27/2025 0800 Level Incentive Spirometer (mL): 500 Number of Repetitions (IS): 5 * Progress Notes - Maritza Khanna, INVESTMENT SALES ASSISTANT - 03/27/2025 2:45 PM EDT -Subjective Lizandro Gr is a 45 y.o. male PMH CAD, CKD, HLD, T2DM, Afib presented to [facility] for CABG on 03/22. 24 hr update: - hyperglycemic yesterday, insulin doses adjusted -AM BG elevated 189-200, further elevated to 242 prio to lunch - sitting up in chair, endorsing chest pain from surgical site, eating well, no nausea Review of Systems Constitutional: Positive for activity change and fatigue. Negative for appetite change, chills and fever. HENT: Negative for trouble swallowing. Respiratory: Positive for shortness of breath (improving on NC). Negative for cough. Cardiovascular: Positive for chest pain (s/p CABG, surgical site soreness). Negative for palpitations. Gastrointestinal: Negative for diarrhea, nausea and vomiting. Skin: Positive for wound (sternal wound vac). Psychiatric/Behavioral: Negative for agitation and confusion. Objective Vitals Temp: [36.3 ??C (97.4 ??F)-37.1 ??C (98.7 ??F)] 37.1 ??C (98.7 ??F) Heart Rate: [70-92] 77 Resp: [16-23] 19 BP: (115-129)/(61-66) 123/65 Physical Exam Vitals reviewed. Constitutional: General: He is not in acute distress. Appearance: He is obese. He is ill-appearing. HENT: Head: Normocephalic and atraumatic. Mouth/Throat: Mouth: Mucous membranes are moist. Eyes: Extraocular Movements: Extraocular movements intact. Pupils: Pupils are equal, round, and reactive to light. Pulmonary: Effort: Pulmonary effort is normal. No respiratory distress. Comments: On NC Abdominal: General: There is no distension. Skin: General: Skin is warm and dry. Comments: Wound vac to midsternal wound/incision Neurological: Mental Status: He is alert and oriented to person, place, and time. Psychiatric: Mood and Affect: Mood normal. Thought Content: Thought content normal. Results from last 7 days Lab Units 03/27/25 0502 SODIUM mmol/L 138 POTASSIUM mmol/L 4.3 CHLORIDE mmol/L 106 CO2 mmol/L 22 BUN mg/dL 18 CREATININE mg/dL 1.03 EGFR mL/min/1.73m*2 92.4 GLUCOSE mg/dL 200* CALCIUM mg/dL 8.8* Results from last 7 days Lab Units 03/27/25 0502 WBC 10*3/uL 5.04 HEMOGLOBIN g/dL 8.8* HEMATOCRIT % 27.3* PLATELETS 10*3/uL 174 Lab Results Component Value Date GLUCOSE 200 (H) 03/27/2025 GLUCOSE 268 (H) 03/26/2025 GLUCOSE 183 (H) 03/25/2025 PGLU 189 (H) 03/27/2025 PGLU 260 (H) 03/26/2025 PGLU 211 (H) 03/26/2025 PGLU 254 (H) 03/26/2025 PGLU 197 (H) 03/26/2025 PGLU 210 (H) 03/25/2025 PGLU 214 (H) 03/25/2025 PGLU 206 (H) 03/25/2025 Lab Results Component Value Date HGBA1C 7.2 (H) 02/17/2025 I have personally reviewed and interpreted the patient's blood glucose levels, pertinent diabetes related labs, and insulin doses administered in the electronic medical record Assessment & Plan CAD (coronary artery disease) Hypertension HLD (hyperlipidemia) S/P CABG x 4 GERD (gastroesophageal reflux disease) Poorly 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 ([facility]) Postoperative pain Obesity (BMI 30-39.9) Cardiac volume overload Acute blood loss anemia Thrombocytopenia (CMS/HCC) Hypocalcemia Hypophosphatemia Hypomagnesemia Transient hyperglycemia post procedure Stage 3b chronic kidney disease (CMS/HCC) Gout Chronic pain Leukocytosis Hypertriglyceridemia Hypoalphalipoproteinemia Lizandro Gr is a 45 y.o. male PMH CAD, CKD, HLD, T2DM, Afib presented to [facility] for CABG on 03/22. Endocrine Diabetes team was consulted for glycemic management on 03/24/25 for post CABG glucose management. Primary team requests recommendations and orders Daily Glucose and Insulin Total Daily Dose -03/23: BG 126-176, insulin drip 1.68-4 u/hr -consulted 03/24, BG 143-208, TDD 34 units -03/25, BG 183-214, TDD 48 units -03/26 BG 197-260, TDD 59 units Diagnoses #CAD #s/p CABG x4 03/22 Good glycemic control important to healing and infection prevention in post surgical setting #Anemia Lab Results Component Value Date HGB 8.8 (L) 03/27/2025 -can impair glucose homeostasis and may negatively affect glycemic control secondary to red blood cell turnover, can cause false low A1c reading -will require intensive glucose monitoring given anemia potential incongruency with A1c and blood glucose readings. #CKD -risks of prolonged excretion of insulin, insulin stacking and hypoglycemia. recommend caution withinsulin adjustments, requires intensive monitoring #obesity BMI 32.17 -leads to insulin resistance -complicating all aspects of care #DM, type 2 uncontrolled -A1c: 7.2 in February 2025 -Home regimen: Lantus: 80 units in PM (hasn't been taking most nights due to hypo episodes) Novolo units with meals (15 units if BG 130-170, hold is less than 130) Jardiance: recently stopped prior to surgery -Elevated HgA1C levels impact all body systems with increased risk for worsening of conditions including renal function, heart disease, eye disease, neuropathy, foot ulcerations, lower extremity amputation, gastroparesis, and overall increased risk for mortality Diabetes Management PLAN for 03/27/25: Current Insulin Regimen: Basal: 26 units glargine in PM Bolus: 4-8 units lispro with meals -Give 1/2 dose if eating 25-50% of meal -HOLD if patient NPO or if patient eats less than 25% of meal -Please document % of meal consumed in intake and output flowsheet Correction: resistant correction with CF 2:50>150 AC and 1:50>250 HS, 0300 -increasing glargine to 30u nightly and lispro to 10 u with meals to overall improve glycemic control, further increased lispro to 12u with meals starting with evening meal -fsbg ac/hs when eating, q6h when NPO, on TF/TPN -correction insulin to be given for hyperglycemia, do not hold if pt does not eat/TF held, must be given within one hour of fingerstick or risk hypoglycemia -prandial/scheduled mealtime insulin dose is to be given based on how much patient eats. Nursing toobserve and document % eaten and dose insulin according to parameters in order -hypoglycemia protocol in place -please document the percentage of meals consumed in intake and output flowsheet -please notify us when diet orders change or steroids added as this impacts our treatment -plan and management discussed with patient, family member, bedside RN -Continue intensive subcutaneous insulin regimen with four or more injections per day, adjusting doses based on glucose readings and nutrtional intake. -Continue intensive glucose monitoring given high risk for hyperglycemia /hypoglycemia secondary tointensive insulin therapy. DM team will follow daily and adjust dosing as needed -One of the principal benefit of intensive insulin therapy and glucose monitoring is a decrease in infection-related complications and mortality -after review of glucose trends and insulin delivery over the last 24 hours, titration of intensiveinsulin therapy was made to overall improve glycemic control and improve patient outcomes Discharge planning -Diabetes education: likely not needed -Follow-up plan: PCP and Offer [facility] endocrinology services at discharge -Tentative discharge medications: Insulin regimen- dosing TBD Continue Dexcom CGM May substitute for therapeutic equivalent per insurance and retail PharmD approval -Supplies/scripts needed: Ensure patient has working glucose meter and supplies DM/Endo team will continue to follow. Please notify us as discharge nears for final recommendations. * Please contact Maritza Khanna NP via secure chat or page us at [phone] during 7a-7p, Sun-Sat. For after hours, weekends, holidays please contact the on-call Endocrine Fellow. Thank you for allowing us to participate in the care of this patient. Time Spent: I personally spent a total of 30 minutes on this encounter. This time includes face to face with patient, counseling and discussion and/or coordination of care. * Progress Notes - La Nena March APRN - 03/27/2025 2:07 PM EDT CVT Progress Note Chief Complaint: CAD 24 Hour Events/HPI: Resting quietly in bed. No complaints during morning rounds. Denies CP and SOA.No acute events overnight. Afebrile and hemodynamically stable. Tolerating po diet and having bowelmovements. Long discussion regarding prn pain meds, reiterated what was discussed yesterday that prn meds haveto be asked for/requested. Also discussed the importance of feeding himself and walking at least three times daily. Review of Systems: A complete ROS was obtained. All were negative except as noted in HPI. Objective: All laboratory data, images, tracings, and vital sign data for past 24 hours are personally reviewed unless otherwise noted. All images personally reviewed and I agree with the radiology interpretation @PATIENTWT@ , Weight: 105 kg (232 lb 7.6 oz) , Ht Readings from Last 1 Encounters: 03/22/25 1.829 m (6') , Body mass index is 32.17 kg/m??. VITALS (last 24h) Temp: [36.3 ??C (97.4 ??F)-37.1 ??C (98.7 ??F)] 36.7 ??C (98 ??F) Heart Rate: [76-92] 90 Resp: [16-22] 18 BP: (107-129)/(60-66) 107/60 Visit Vitals BP 107/60 (BP Location: Right arm, Patient Position: Lying) Pulse 90 Temp 36.7 ??C (98 ??F) (Oral) Resp 18 Ht 1.829 m (6') Wt 108 kg (237 lb 3.4 oz) SpO2 94% BMI 32.17 kg/m?? Smoking Status Never BSA 2.34 m?? I & O Summary Intake/Output Summary (Last 24 hours) at 03/27/2025 1408 Last data filed at 03/27/2025 1030 Gross per 24 hour Intake 680 ml Output 5650 ml Net -4970 ml LABS CBC WBC 5.04 Hb 8.8 (L) Plt 174 Hct 27.3 (L) ANC ?? INR ??, PTT ??, Anti-Xa ?? BMP Na 138 Cl 106 BUN 18 Glu 200 (H) K 4.3 Co2 22 Cr 1.03 Ca 8.8 (L) iCa ?? Mg 1.9, Phos ?? Lactate ?? LFT AST 21 AlkPhos 59 T Prot 6.4 ALK 21 Bili 0.8 Alb ?? D.Bili ?? HOURS) MEDICATIONS Current Scheduled Medications[1] Current Continuous Medications[2] Current PRN Medications[3] Physical Exam: GENERAL: Well developed, well nourished. No acute distress. EYES: No scleral icterus or conjunctivitis HENT: Atraumatic, normocephalic, nares patent, mucus membranes moist NECK: Supple, trachea midline RESP/CHEST: Clear to auscultation bilaterally, decreased in bases, with symmetric expansion; non labored. Sternum stable, sternotomy as noted below. CARD: RRR. S1S2. No murmur, rub, or gallop. No JVD. Trace bilateral lower extremity edema. Pedal pulses palpable +2. Extremities: No cyanosis or clubbing. GI: Soft, nontender, nondistended. BS present and normoactive x 4 quadrants SKIN: No rash. Midsternal incision CDI, edges well approximated. EVH site CDI. NEURO: AAOx4. Motor intact and no focal deficits PSYCH: Mood and affect congruent and appropriate to situation. Assessment and Plan: Mr. Lizandro Gr is a 45 year old male with PMH significant for hypertension, hyperlipidemia, DM II, CKD3, GERD, and obesity. His PCP noted his CT calcium score elevated at 876 and referred him for stress test. The stress test results were suggestive of possible multivessel CAD or balanced ischemia. He was then referred to cardiology for cardiac catheterization which confirmed multivessel CAD. He is now s/p CABG x 4 on 03/22. Multivessel CAD (POA) S/p CABG x 4 on 03/22 - Median Sternotomy, coronary artery bypass grafting, endoscopic vein [id number] saphenous. Vein the ascending aorta the 1st diagonal. Vein from the side of the 1st diagonal graft to the 1st obtuse marginal. Vein from ascending aorta to the posterior descending coronary artery. Left internal mammary artery skeletonized in Situ left anterior descending coronary artery. (3 vein grafts, 1 arterial graft, endoscopic vein harvest) - ASA, statin, BB - Routine post cardiac surgery care: sternal precautions x 6 weeks, PT, bowel regimen to prevent constipation and aggressive pulmonary toilet. Volume overload - admission weight 105 kg - daily weights/I&Os - diuresis prn - CXR prn - current weight 108 kg Acute blood loss anemia - monitor and transfuse for Hgb < 7 - H/H 7.5/22.8 - 6/21: H/H 7.8/23.9 - 6/22: H/H 8.8/27.3 Hypocalcemia - monitor and replete prn Hypophosphatemia - monitor and replete prn Acute postoperative pain - MMPC DM II (POA) Diabetic neuropathy (POA) Postoperative hyperglycemia - A1c 7.2 - holding home jardiance - SSI CKD 3 (POA) - creatinine 1.46 on admission - avoid nephrotoxic agents - renally dose medications - holding home kerendia Hypertension (POA) - holding home lisinopril, hydrochlorothiazide, and diltiazem Hyperlipidemia (POA) Hypertriglyceridemia (POA) Hypoalphalipoproteinemia (POA) - statin Gout (POA) - home allopurinol GERD (POA) - continue PPI Chronic pain (POA) - home tramadol Obesity (POA) - BMI 32.35 - complicates all aspects of care Leukocytosis (resolved) Hypomagnesemia (resolved) Thrombocytopenia (resolved) Plan: Discontinue wound vac. Encourage mobilization. Ordered home tramadol (scheduled), continue oral dilaudid prn, changed IV dilaudid to every 8 hours with plans to discontinue tomorrow (patient aware). Increased bowel regimen. Cardiothoracic Surgery [phone] [1] acetaminophen, 1,000 mg, Oral, q6h [facility] allopurinol, 300 mg, Oral, Daily aspirin, 81 mg, Oral, Daily atorvastatin, 80 mg, Oral, Nightly docusate sodium, 100 mg, Oral, BID fenofibrate, 145 mg, Oral, Daily furosemide, 40 mg, Oral, Daily gabapentin, 300 mg, Oral, BID heparin (porcine), 5,000 Units, Subcutaneous, q8h [facility] insulin glargine-yfgn, 30 Units, Subcutaneous, Nightly insulin lispro, 0-10 Units, Subcutaneous, TID with meals insulin lispro, 0-3 Units, Subcutaneous, Twice at night Insulin Lispro, 10 Units, Subcutaneous, TID with meals lidocaine, 2 patch, Apply externally, q24h magnesium hydroxide, 30 mL, Oral, Daily methocarbamol, 1,000 mg, Oral, 4x daily metoprolol tartrate, 12.5 mg, Oral, BID mupirocin, 1 Application, Each Nostril, BID pantoprazole, 40 mg, Oral, Daily polyethylene glycol, 17 g, Oral, BID senna, 17.2 mg, Oral, BID simethicone, 80 mg, Oral, 4x daily sodium chloride, 10 mL, Intravenous, q12h traMADol, 50 mg, Oral, q6h [2] [3] PRN medications: bisacodyl, HYDROmorphone, HYDROmorphone, ipratropium- albuterol, ondansetron, smog, sodium chloride, sodium chloride * Care Plan - Luisa Mike RN - 03/27/2025 2:36 AM EDT Problem: Cardiovascular Surgery Goal: Acceptable Pain Control Outcome: Ongoing, Not Progressing Problem: Pain Acute Goal: Optimal Pain Control and Function Outcome: Ongoing, Not Progressing * Progress Notes - La Nena March APRN - 03/26/2025 10:39 AM EDT CVT Progress Note Chief Complaint: CAD 24 Hour Events/HPI: Resting quietly in bed, family at bedside. No complaints during morning rounds.Denies CP and SOA. No acute events overnight. Afebrile and hemodynamically stable. Tolerating po diet. Passing gas, but no BM since OR. Review of Systems: A complete ROS was obtained. All were negative except as noted in HPI. Objective: All laboratory data, images, tracings, and vital sign data for past 24 hours are personally reviewed unless otherwise noted. All images personally reviewed and I agree with the radiology interpretation @PATIENTWT@ , Weight: 105 kg (232 lb 7.6 oz) , Ht Readings from Last 1 Encounters: 03/22/25 1.829 m (6') , Body mass index is 32.62 kg/m??. VITALS (last 24h) Temp: [36.8 ??C (98.3 ??F)-37.2 ??C (99 ??F)] 36.9 ??C (98.5 ??F) Heart Rate: [70-103] 73 Resp: [14-37] 22 BP: (106-136)/(50-70) 115/65 Visit Vitals BP 115/65 Pulse 73 Temp 36.9 ??C (98.5 ??F) (Oral) Resp 22 Ht 1.829 m (6') Wt 109 kg (240 lb 8.4 oz) SpO2 99% BMI 32.62 kg/m?? Smoking Status Never BSA 2.35 m?? I & O Summary Intake/Output Summary (Last 24 hours) at 03/26/2025 1039 Last data filed at 03/26/2025 1030 Gross per 24 hour Intake 440 ml Output 4050 ml Net -3610 ml LABS CBC WBC 4.53 Hb 7.8 (L) Plt 129 (L) Hct 23.9 (L) ANC ?? INR ??, PTT ??, Anti-Xa ?? BMP Na 138 Cl 104 BUN 24 (H) Glu 268 (H) K 4.0 Co2 25 Cr 1.06 Ca 8.3 (L) iCa ?? Mg 2.1, Phos ?? Lactate ?? LFT AST 18 AlkPhos 43 T Prot 5.9 (L) ALK 14 Bili 0.5 Alb ?? D.Bili ?? HOURS) MEDICATIONS Current Scheduled Medications[1] Current Continuous Medications[2] Current PRN Medications[3] Physical Exam: GENERAL: Well developed, well nourished. No acute distress. EYES: No scleral icterus or conjunctivitis HENT: Atraumatic, normocephalic, nares patent, mucus membranes moist NECK: Supple, trachea midline RESP/CHEST: Clear to auscultation bilaterally, decreased in bases, with symmetric expansion; non labored. Sternum stable, sternotomy as noted below. CARD: RRR. S1S2. No murmur, rub, or gallop. No JVD. Trace bilateral lower extremity edema. Pedal pulses palpable +2. Extremities: No cyanosis or clubbing. GI: Soft, nontender, nondistended. BS present and normoactive x 4 quadrants SKIN: No rash. Midsternal incision CDI, edges well approximated. EVH site CDI. NEURO: AAOx4. Motor intact and no focal deficits PSYCH: Mood and affect congruent and appropriate to situation. Assessment and Plan: Mr. Lizandro Gr is a 45 year old male with PMH significant for hypertension, hyperlipidemia, DM II, CKD3, GERD, and obesity. His PCP noted his CT calcium score elevated at 876 and referred him for stress test. The stress test results were suggestive of possible multivessel CAD or balanced ischemia. He was then referred to cardiology for cardiac catheterization which confirmed multivessel CAD. He is now s/p CABG x 4 on 03/22. Multivessel CAD (POA) S/p CABG x 4 on 03/22 - Median Sternotomy, coronary artery bypass grafting, endoscopic vein uqkeafp-mkhkh-zucvsqa saphenous. Vein the ascending aorta the 1st diagonal. Vein from the side of the 1st diagonal graft to the 1st obtuse marginal. Vein from ascending aorta to the posterior descending coronary artery. Left internal mammary artery skeletonized in Situ left anterior descending coronary artery. (3 vein grafts, 1 arterial graft, endoscopic vein harvest) - ASA, statin, BB - Routine post cardiac surgery care: sternal precautions x 6 weeks, PT, bowel regimen to prevent constipation and aggressive pulmonary toilet. Volume overload - admission weight 105 kg - daily weights/I&Os - diuresis prn - CXR prn - current weight 109 kg Acute blood loss anemia - monitor and transfuse for Hgb < 7 - H/H 7.5/22.8 - 21: H/H 7.8/23.9 Thrombocytopenia - monitor and transfuse prn - platelets 105 - 03/26: platelets 129 Hypocalcemia - monitor and replete prn Hypophosphatemia - monitor and replete prn Acute postoperative pain - MMPC DM II (POA) Diabetic neuropathy (POA) Postoperative hyperglycemia - A1c 7.2 - holding home jardiance CKD 3 (POA) - creatinine 1.46 on admission - avoid nephrotoxic agents - renally dose medications - holding home kerendia Hypertension (POA) - holding home lisinopril, hydrochlorothiazide, and diltiazem Hyperlipidemia (POA) Hypertriglyceridemia (POA) Hypoalphalipoproteinemia (POA) - statin Gout (POA) - home allopurinol GERD (POA) - continue PPI Chronic pain (POA) - home tramadol Obesity (POA) - BMI 32.35 - complicates all aspects of care Leukocytosis (resolved) Hypomagnesemia (resolved) Plan: Continue current plan of care. Acute pain services following. Mobilize as able. Escalate bowel regimen. Cardiothoracic Surgery [id number] [1] acetaminophen, 650 mg, Oral, q6h [facility] allopurinol, 300 mg, Oral, Daily aspirin, 81 mg, Oral, Daily atorvastatin, 80 mg, Oral, Nightly colchicine, 0.6 mg, Oral, BID docusate sodium, 100 mg, Oral, BID fenofibrate, 145 mg, Oral, Daily furosemide, 40 mg, Oral, Daily gabapentin, 300 mg, Oral, BID heparin (porcine), 5,000 Units, Subcutaneous, q8h [facility] insulin glargine-yfgn, 26 Units, Subcutaneous, Nightly insulin lispro, 0-10 Units, Subcutaneous, TID with meals insulin lispro, 0-3 Units, Subcutaneous, Twice at night Insulin Lispro, 6 Units, Subcutaneous, TID with meals lidocaine, 1 patch, Apply externally, q24h magnesium hydroxide, 30 mL, Oral, Daily methocarbamol, 1,000 mg, Oral, 4x daily metoprolol tartrate, 12.5 mg, Oral, BID mupirocin, 1 Application, Each Nostril, BID pantoprazole, 40 mg, Oral, Daily polyethylene glycol, 17 g, Oral, BID senna, 17.2 mg, Oral, BID simethicone, 80 mg, Oral, 4x daily sodium chloride, 10 mL, Intravenous, q12h [2] [3] PRN medications: HYDROmorphone, HYDROmorphone, ipratropium-albuterol, ondansetron, sodium chloride, sodium chloride * Progress Notes - Maritza Khanna APRN - 03/26/2025 7:39 AM EDT Subjective Lizandro Gr is a 45 y.o. male PMH CAD, CKD, HLD, T2DM, Afib presented to [facility] for CABG on 03/22. 24 hr update: - hyperglycemic yesterday, insulin doses adjusted -AM BG elevated at 197, lunch BG significantly elevated at 254, tolerating PO - sleeping in bed, NAD noted Review of Systems Objective Vitals Temp: [36.8 ??C (98.3 ??F)-37.5 ??C (99.5 ??F)] 36.9 ??C (98.5 ??F) Heart Rate: [76-103] 84 Resp: [14-37] 20 BP: (106-136)/(50-72) 108/57 Physical Exam Vitals reviewed. Constitutional: General: He is not in acute distress. Appearance: He is obese. He is ill-appearing. HENT: Head: Normocephalic and atraumatic. Mouth/Throat: Mouth: Mucous membranes are moist. Eyes: Extraocular Movements: Extraocular movements intact. Pupils: Pupils are equal, round, and reactive to light. Pulmonary: Effort: Pulmonary effort is normal. No respiratory distress. Comments: On NC Abdominal: General: There is no distension. Skin: General: Skin is warm and dry. Comments: Wound vac to midsternal wound/incision Neurological: Mental Status: He is alert and oriented to person, place, and time. Psychiatric: Mood and Affect: Mood normal. Thought Content: Thought content normal. Results from last 7 days Lab Units 03/26/25 0350 SODIUM mmol/L 138 POTASSIUM mmol/L 4.0 CHLORIDE mmol/L 104 CO2 mmol/L 25 BUN mg/dL 24* CREATININE mg/dL 1.06 EGFR mL/min/1.73m*2 89.3 GLUCOSE mg/dL 268* CALCIUM mg/dL 8.3* Results from last 7 days Lab Units 03/26/25 0350 WBC 10*3/uL 4.53 HEMOGLOBIN g/dL 7.8* HEMATOCRIT % 23.9* PLATELETS 10*3/uL 129* Lab Results Component Value Date GLUCOSE 268 (H) 03/26/2025 GLUCOSE 183 (H) 03/25/2025 GLUCOSE 164 (H) 03/24/2025 PGLU 210 (H) 03/25/2025 PGLU 214 (H) 03/25/2025 PGLU 206 (H) 03/25/2025 PGLU 198 (H) 03/25/2025 PGLU 182 (H) 03/24/2025 PGLU 183 (H) 03/24/2025 PGLU 208 (H) 03/24/2025 PGLU 208 (H) 03/24/2025 Lab Results Component Value Date HGBA1C 7.2 (H) 02/17/2025 I have personally reviewed and interpreted the patient's blood glucose levels, pertinent diabetes related labs, and insulin doses administered in the electronic medical record Assessment & Plan CAD (coronary artery disease) Hypertension HLD (hyperlipidemia) S/P CABG x 4 GERD (gastroesophageal reflux disease) 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) Atrial fibrillation (CMS/HCC) Postoperative pain Obesity (BMI 30-39.9) Cardiac volume overload Acute blood loss anemia Thrombocytopenia (CMS/HCC) Hypocalcemia Hypophosphatemia Hypomagnesemia Transient hyperglycemia post procedure Stage 3b chronic kidney disease (CMS/HCC) Gout Chronic pain Leukocytosis Lizandro Gr is a 45 y.o. male PMH CAD, CKD, HLD, T2DM, Afib presented to [facility] for CABG on 03/22. Endocrine Diabetes team was consulted for glycemic management on 03/24/25 for post CABG glucose management. Primary team requests recommendations and orders Daily Glucose and Insulin Total Daily Dose -03/23: BG 126-176, insulin drip 1.68-4 u/hr -consulted 03/24, BG 143-208, TDD 34 units 03/25, BG 183-214, TDD 48 units Diagnoses #CAD #s/p CABG x4 03/22 Good glycemic control important to healing and infection prevention in post surgical setting #Anemia Lab Results Component Value Date HGB 7.8 (L) 03/26/2025 -can impair glucose homeostasis and may negatively affect glycemic control secondary to red blood cell turnover, can cause false low A1c reading -will require intensive glucose monitoring given anemia potential incongruency with A1c and blood glucose readings. #CKD -risks of prolonged excretion of insulin, insulin stacking and hypoglycemia. recommend caution withinsulin adjustments, requires intensive monitoring #obesity BMI 32.35 -leads to insulin resistance -complicating all aspects of care #DM, type 2 -A1c: 7.2 in February 2025 -Home regimen: Lantus: 80 units in PM (hasn't been taking most nights due to hypo episodes) Novolo units with meals (15 units if BG 130-170, hold is less than 130) Jardiance: recently stopped prior to surgery -Elevated HgA1C levels impact all body systems with increased risk for worsening of conditions including renal function, heart disease, eye disease, neuropathy, foot ulcerations, lower extremity amputation, gastroparesis, and overall increased risk for mortality Diabetes Management PLAN for 03/26/25: Current Insulin Regimen: Basal: 26 units glargine in PM Bolus: 4 units lispro with meals -Give 1/2 dose if eating 25-50% of meal -HOLD if patient NPO or if patient eats less than 25% of meal -Please document % of meal consumed in intake and output flowsheet Correction: resistant correction with CF 2:50>150 AC and 1:50>250 HS, 0300 - increasing lispro to 6u with meals and further to 8u with meals -fsbg ac/hs when eating, q6h when NPO, on TF/TPN -correction insulin to be given for hyperglycemia, do not hold if pt does not eat/TF held, must be given within one hour of fingerstick or risk hypoglycemia -prandial/scheduled mealtime insulin dose is to be given based on how much patient eats. Nursing toobserve and document % eaten and dose insulin according to parameters in order -hypoglycemia protocol in place -please document the percentage of meals consumed in intake and output flowsheet -please notify us when diet orders change or steroids added as this impacts our treatment -plan and management discussed with patient, family member, bedside RN -Continue intensive subcutaneous insulin regimen with four or more injections per day, adjusting doses based on glucose readings and nutrtional intake. -Continue intensive glucose monitoring given high risk for hyperglycemia /hypoglycemia secondary tointensive insulin therapy. DM team will follow daily and adjust dosing as needed -One of the principal benefit of intensive insulin therapy and glucose monitoring is a decrease in infection-related complications and mortality Discharge planning -Diabetes education: likely not needed -Follow-up plan: PCP and Offer [facility] endocrinology services at discharge -Tentative discharge medications: Insulin regimen- dosing TBD Continue Dexcom CGM May substitute for therapeutic equivalent per insurance and retail PharmD approval -Supplies/scripts needed: Ensure patient has working glucose meter and supplies DM/Endo team will continue to follow. Please notify us as discharge nears for final recommendations. * Please contact Maritza Khanna NP via secure chat or page us at [phone] during 7a-7p, Sun-Sat. For after hours, weekends, holidays please contact the on-call Endocrine Fellow. Thank you for allowing us to participate in the care of this patient. 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 * Care Plan - Zaida Stearns LPN - 03/25/2025 8:26 PM EDT Problem: Adult Inpatient Plan of Care Goal: Plan of Care Review Outcome: Ongoing, Progressing Flowsheets Taken 03/25/20252025 by Zaida Stearns LPN Progress: improving Taken 03/24/20252139 by Jignesh Rooney RN Plan of Care Reviewed With: patient spouse Goal: Patient-Specific Goal (Individualized) Outcome: Ongoing, Progressing Goal: Absence of Hospital-Acquired Illness or Injury Outcome: Ongoing, Progressing Goal: Optimal Comfort and Wellbeing Outcome: Ongoing, Progressing Goal: Readiness for Transition of Care Outcome: Ongoing, Progressing Problem: Infection Goal: Absence of Infection Signs and Symptoms Outcome: Ongoing, Progressing Problem: Cardiovascular Surgery Goal: Improved Activity Tolerance Outcome: Ongoing, Progressing Goal: Optimal Coping with Heart Surgery Outcome: Ongoing, Progressing Goal: Absence of Bleeding Outcome: Ongoing, Progressing Goal: Effective Bowel Elimination Outcome: Ongoing, Progressing Goal: Effective Cardiac Function Outcome: Ongoing, Progressing Goal: Optimal Cerebral Tissue Perfusion Outcome: Ongoing, Progressing Goal: Fluid and Electrolyte Balance Outcome: Ongoing, Progressing Goal: Blood Glucose Level Within Target Range Outcome: Ongoing, Progressing Goal: Absence of Infection Signs and Symptoms Outcome: Ongoing, Progressing Goal: Anesthesia/Sedation Recovery Outcome: Ongoing, Progressing Goal: Acceptable Pain Control Outcome: Ongoing, Progressing Goal: Nausea and Vomiting Relief Outcome: Ongoing, Progressing Goal: Effective Urinary Elimination Outcome: Ongoing, Progressing Goal: Effective Oxygenation and Ventilation Outcome: Ongoing, Progressing Problem: Pain Acute Goal: Optimal Pain Control and Function Outcome: Ongoing, Progressing Problem: Self-Care Deficit Goal: Improved Ability to Complete Activities of Daily Living Outcome: Ongoing, Progressing Problem: Wound Goal: Improved Oral Intake Outcome: Ongoing, Progressing Problem: Chest Pain Goal: Resolution of Chest Pain Symptoms Outcome: Ongoing, Progressing * Progress Notes - Maritza Khanna APRN - 03/25/2025 5:35 PM EDT Subjective Lizandro Gr is a 45 y.o. male PMH CAD, CKD, HLD, T2DM, Afib presented to [facility] for CABG on 03/22. 24 hr update: -transitioned off insulin drip yesterday -AM BG 198, lunch BG 206, tolerating PO -feeling well, sitting up in chair, SOA intermittent on exertion, denies nausea Review of Systems Constitutional: Positive for activity change and appetite change. Negative for chills and fever. Respiratory: Positive for shortness of breath (imtermittent). Negative for cough. Cardiovascular: Negative for chest pain and palpitations. Gastrointestinal: Negative for nausea and vomiting. Psychiatric/Behavioral: Negative for agitation and confusion. Objective Vitals Temp: [36.9 ??C (98.5 ??F)-37.5 ??C (99.5 ??F)] 37.5 ??C (99.5 ??F) Heart Rate: [75-94] 93 Resp: [10-28] 20 BP: (90-117)/(52-70) 111/64 Arterial Line BP: (73-123)/(51-67) 73/57 Physical Exam Vitals reviewed. Constitutional: General: He is not in acute distress. Appearance: He is obese. He is ill-appearing. HENT: Head: Normocephalic and atraumatic. Mouth/Throat: Mouth: Mucous membranes are moist. Eyes: Extraocular Movements: Extraocular movements intact. Pupils: Pupils are equal, round, and reactive to light. Pulmonary: Effort: Pulmonary effort is normal. No respiratory distress. Abdominal: General: There is no distension. Skin: General: Skin is warm and dry. Neurological: Mental Status: He is alert and oriented to person, place, and time. Psychiatric: Mood and Affect: Mood normal. Thought Content: Thought content normal. Results from last 7 days Lab Units 03/25/25 0407 SODIUM mmol/L 136 POTASSIUM mmol/L 4.3 CHLORIDE mmol/L 101 CO2 mmol/L 26 BUN mg/dL 22* CREATININE mg/dL 1.04 EGFR mL/min/1.73m*2 91.4 GLUCOSE mg/dL 183* CALCIUM mg/dL 8.2* Results from last 7 days Lab Units 03/25/25 0407 WBC 10*3/uL 6.01 HEMOGLOBIN g/dL 7.5* HEMATOCRIT % 22.8* PLATELETS 10*3/uL 105* Lab Results Component Value Date GLUCOSE 183 (H) 03/25/2025 GLUCOSE 164 (H) 03/24/2025 GLUCOSE 159 (H) 03/23/2025 PGLU 198 (H) 03/25/2025 PGLU 182 (H) 03/24/2025 PGLU 183 (H) 03/24/2025 PGLU 208 (H) 03/24/2025 PGLU 208 (H) 03/24/2025 PGLU 146 (H) 03/24/2025 PGLU 180 (H) 03/24/2025 PGLU 143 (H) 03/24/2025 Lab Results Component Value Date HGBA1C 7.2 (H) 02/17/2025 I have personally reviewed and interpreted the patient's blood glucose levels, pertinent diabetes related labs, and insulin doses administered in the electronic medical record Assessment & Plan CAD (coronary artery disease) CKD (chronic kidney disease) stage 2, GFR 60-89 ml/min Hypertension HLD (hyperlipidemia) S/P CABG x 4 Electrolyte abnormality GERD (gastroesophageal reflux disease) Anemia 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) Atrial fibrillation (CMS/HCC) Postoperative pain Lizandro Gr is a 45 y.o. male PMH CAD, CKD, HLD, T2DM, Afib presented to [facility] for CABG on 03/22. Endocrine Diabetes team was consulted for glycemic management on 03/24/25 for post CABG glucose management. Primary team requests recommendations and orders Daily Glucose and Insulin Total Daily Dose -03/23: BG 126-176, insulin drip 1.68-4 u/hr -consulted 03/24, BG 143-208, TDD 34 units Diagnoses #CAD #s/p CABG x4 03/22 #Anemia Lab Results Component Value Date HGB 7.5 (L) 03/25/2025 -can impair glucose homeostasis and may negatively affect glycemic control secondary to red blood cell turnover, can cause false low A1c reading -will require intensive glucose monitoring given anemia potential incongruency with A1c and blood glucose readings. #CKD -risks of prolonged excretion of insulin, insulin stacking and hypoglycemia. recommend caution withinsulin adjustments, requires intensive monitoring #obesity BMI 32.35 -leads to insulin resistance -complicating all aspects of care #DM, type 2 -A1c: 7.2 in February 2025 -Home regimen: Lantus: 80 units in PM (hasn't been taking most nights due to hypo episodes) Novolo units with meals (15 units if BG 130-170, hold is less than 130) Jardiance: recently stopped prior to surgery -Elevated HgA1C levels impact all body systems with increased risk for worsening of conditions including renal function, heart disease, eye disease, neuropathy, foot ulcerations, lower extremity amputation, gastroparesis, and overall increased risk for mortality Diabetes Management PLAN for 03/25/25: Current Insulin Regimen: Basal: 20 units glargine in PM Bolus: 4 units lispro with meals -Give 1/2 dose if eating 25-50% of meal -HOLD if patient NPO or if patient eats less than 25% of meal -Please document % of meal consumed in intake and output flowsheet Correction: resistant correction with CF 2:50>150 AC and 1:50>250 HS, 0300 - glucose consistently slightly above goal, will increase basal insulin to 26 units nightly -fsbg ac/hs when eating, q6h when NPO, on TF/TPN -correction insulin to be given for hyperglycemia, do not hold if pt does not eat/TF held, must be given within one hour of fingerstick or risk hypoglycemia -prandial/scheduled mealtime insulin dose is to be given based on how much patient eats. Nursing toobserve and document % eaten and dose insulin according to parameters in order -hypoglycemia protocol in place -please document the percentage of meals consumed in intake and output flowsheet -please notify us when diet orders change or steroids added as this impacts our treatment -plan and management discussed with patient, family member, bedside RN -Continue intensive subcutaneous insulin regimen with four or more injections per day, adjusting doses based on glucose readings and nutrtional intake. -Continue intensive glucose monitoring given high risk for hyperglycemia /hypoglycemia secondary tointensive insulin therapy. DM team will follow daily and adjust dosing as needed -One of the principal benefit of intensive insulin therapy and glucose monitoring is a decrease in infection-related complications and mortality Discharge planning -Diabetes education: likely not needed -Follow-up plan: PCP and Offer [facility] endocrinology services at discharge -Tentative discharge medications: Insulin regimen- dosing TBD Continue Dexcom CGM May substitute for therapeutic equivalent per insurance and retail PharmD approval -Supplies/scripts needed: Ensure patient has working glucose meter and supplies DM/Endo team will continue to follow. Please notify us as discharge nears for final recommendations. * Please contact Maritza Khanna NP via secure chat or page us at [phone] during 7a-7p, Sun-Sat. For after hours, weekends, holidays please contact the on-call Endocrine Fellow. Thank you for allowing us to participate in the care of this patient.Time Spent: I personally spent a total of 30 minutes on this encounter. This time includes face to face with patient, counseling and discussion and/orcoordination of care. * Clinician Note - La Nena March APRN - 03/25/2025 12:25 PM EDT CVT Progress Note Chief Complaint: CAD Assessment and Plan: Mr. Lizandro Gr is a 45 year old male with PMH significant for hypertension, hyperlipidemia, DM II, CKD3, GERD, and obesity. His PCP noted his CT calcium score elevated at 876 and referred him for stress test. The stress test results were suggestive of possible multivessel CAD or balanced ischemia. He was then referred to cardiology for cardiac catheterization which confirmed multivessel CAD. He is now s/p CABG x 4 on 03/22. Multivessel CAD (POA) S/p CABG x 4 on 03/22 - Median Sternotomy, coronary artery bypass grafting, endoscopic vein [id number] saphenous. Vein the ascending aorta the 1st diagonal. Vein from the side of the 1st diagonal graft to the 1st obtuse marginal. Vein from ascending aorta to the posterior descending coronary artery. Left internal mammary artery skeletonized in Situ left anterior descending coronary artery. (3 vein grafts, 1 arterial graft, endoscopic vein harvest) - ASA, statin, BB - Routine post cardiac surgery care: sternal precautions x 6 weeks, PT, bowel regimen to prevent constipation and aggressive pulmonary toilet. Volume overload - admission weight 105 kg - daily weights/I&Os - diuresis prn - CXR prn - current weight 108 kg Acute blood loss anemia - monitor and transfuse for Hgb < 7 - H/H 7.5/22.8 Thrombocytopenia - monitor and transfuse prn - platelets 105 Hypocalcemia - monitor and replete prn Hypophosphatemia - monitor and replete prn Hypomagnesemia - monitor and replete prn Acute postoperative pain - MMPC DM II (POA) Diabetic neuropathy (POA) Postoperative hyperglycemia - A1c 7.2 - holding home jardiance CKD 3 (POA) - creatinine 1.46 on admission - avoid nephrotoxic agents - renally dose medications - holding home kerendia Hypertension (POA) - holding home lisinopril, hydrochlorothiazide, and diltiazem Hyperlipidemia (POA) - statin Gout (POA) - home allopurinol GERD (POA) - continue PPI Chronic pain (POA) - home tramadol Obesity (POA) - BMI 32.35 - complicates all aspects of care Leukocytosis (resolved) Cardiothoracic Surgery [phone] * Progress Notes - Michelle Branham - 03/25/2025 12:10 PM EDT Occupational Therapy Treatment Patient Name: Lizandro Gr Today's Date: 03/25/2025 OT Discharge Recommendations: Home with assistance Equipment Recommended: Rollator Subjective Patient agreeable to OT treatment, reporting Im doing pretty good today, Leslie already walked twice. Participants in Care Family/Caregiver Present: No Presentation Oxygen Therapy: Supplemental oxygen O2 Delivery Method: Nasal cannula O2 Flow Rate (L/min): 4 L/min Lines and Tubes: Intravenous access, Telemetry, Wound vac Pre-Session: Sitting in chair, Lines intact, Chair alarm Post-Session: Sitting in chair, Lines intact, Call light in reach, Chair alarm Post-Session Comments: all needs met, pt positioned for comfort, pt's family temporarily not in room Precautions Medical Precautions: Sternal Objective Pain Patient denies pain throughout session. Patient provided with cuing throughout activity for pain management techniques and provided with repositioning for comfort and pressure relief. Delirium Screening Murillo Agitation Sedation Scale (RASS): Alert and calm Confusion Assessment Method-ICU (CAM-ICU/PCAM-ICU) Feature 1: Acute Onset or Fluctuating Course: Negative Feature 3: Altered Level of Consciousness: Negative Overall CAM-ICU/PCAM-ICU: Negative Cognition Cognition Overall Cognitive Status: Within Functional Limits Arousal/Alertness: Appropriate responses to stimuli Mood/Behavior: Alert Orientation Level: Oriented X4 Single Step Commands: Consistently Multi-Step Commands: Consistently Method of Communication: Verbal Safety Judgment: Good awareness of safety precautions Awareness of Errors: Good awareness of errors made Deficit Awareness: Fully aware of deficits Attention Span: Appears intact Self-Care Interventions Self Care/Home Management (ADLs) Time Entry: 25 Feeding Feeding Level of Assistance: Modified independent Feeding Where Assessed: Chair Level Feeding Interventions: pt demo's functional independence with food tray set up and self feeding routine completion from supported sitting Grooming Grooming Level of Assistance: SBA, Setup Grooming Where Assessed: Chair level Grooming Interventions: pt requires SBA for safety with set up from tray table for basic grooming tasks, encouraged pt to progress toward use of sink with grooming routine completion as activity tolerance for standing improves and pain is managed, pt educated on importance of participation in ADL tasks from standing for endurance and strength training in prep for return home with family Bathing UE Bathing Level of Assistance: SBA, Setup LE Bathing Level of Assistance: Maximum assistance, Setup Bathing: Where Assessed: Chair level Bathing Interventions: sponge bathing, pt reports assisting patient with sponge bathing tasks within functional reach to upper body, cont'd difficulty with functional reaching toward distal LE's and for lisa-areas 2/2 pain and dyspnea, educated on sternal precautions for use throughout adapted sponge bathing routine completion UE Dressing UE Dressing Level of Assistance: Setup, SBA UE Dressing Where Assessed: Chair level UE Dressing Interventions: gown management, unsupported sitting Lower Extremity Dressing Sock Level of Assistance: Maximum assistance, Setup LE Dressing Where Assessed: Chair level LE Dressing Interventions: pt limited with functional reach toward distal LE's from sitting 2/2 acute post op incisional chest pain, sternal precautions, and dyspnea, educated pt on adapted body mechanics and progression toward use of figure four technique if able from sitting for improved activitytolerance and pain management with lower body dressing simulation provided Toileting Toileting Level of Assistance: Setup, Maximum assistance Where Assessed: Toilet Toileting Interventions: pt is currently mod I for use of urinal from chair, in prep for BM (pt cont's to await BM) a BSC frame is recc'd for use positioned over standard commode for improved safety and ease of transfer, pt provided with cuing for adapted transfer techniques, sternal precautions with adapted body mechanics for posterior lisa care simulation (from standing vs sitting), and lower body clothing management activities using rollator for stability as needed Bed Mobility Bed Mobility Interventions: not assessed this date- pt received and left in bedside chair Transfers Transfer Exam: Sit to stand Level of [place]: Contact guard Physical/Nonphysical Assist: Supervision, Verbal Cues, Minimal cues Assistive Device: Rollator Transfer Exam: Stand to Sit Level of [place]: Contact guard Physical/Nonphysical Assist: Minimal cues, Supervision, Verbal Cues Assistive Device: Rollator Balance Postural Appearance Posture: Stooped posture, Rounded shoulders Static Sitting Balance Static Sitting-Balance Support: Feet supported Static Sitting-Level of Assistance: Standby assist Dynamic Sitting Balance Dynamic Sitting-Balance Support: Feet supported Level of Assistance: Standby assisst Static Standing Balance Static Standing-Balance Support: Right upper extremity support, Left upper extremity support Static Standing-Level of Assistance: Contact guard Dynamic Standing Balance Dynamic Standing-Balance Support: Right upper extremity support, Left upper extremity support Dynamic Standing Level of Assistance: Contact guard Therapeutic Exercise (in prep for ADLs) pt educated on importance of adherence to sternal precautions throughout gentle AROM HEP to katarina UE's for improved joint integrity, decreased neck and shoulder stiffness, improved post-op pain, and improved activity tolerance/endurance needed for ADL tasks using katarina UE's, pt educated on katarina UE, all joints, all planes, within range, to be completed 2-3x/daily, 10-20 reps each, optimally completed in unsupported sitting OR standing with CGA from staff for safety, pt reports good understanding for use of HEP and importance of adherence \ Assessment Patient progressing well toward OT goals, continue with pain management, safety, strength, balance,endurance and activity tolerance training in prep for ADL/IADL tasks as pt continues to be limited by post-op pain, sternal precautions, generalized weakness, and mild instability in standing with associated dyspnea. Patient remains at high risk for falling with increased assist from staff/family for basic self care routines from sitting. Continue with OT POC and discharge recommendations- pt remains agreeable and motivated for participation. OT Recommendations Discharge Destination: Home with assistance Discharge Equipment: Rollator Plan Patient remains appropriate for current OT POC. Continue OT POC. Goals OT GOAL DETAILS Goal Established Date Time Frame Goal Status OT Goal 1: Pt will complete total body dressing skills with modified independence and appropriate adaptive device. 03/23/25 2 weeks OT Goal 2: Pt will complete toileting skills with modified independence and appropriate adaptive device. 03/23/25 2 weeks OT Goal 3: Pt will complete functional transfers with modified independence and appropriate adaptive device to increase independence with toilet transfers. 03/23/25 2 weeks OT Goal 4: Pt will independently adhere to sternal precautions during all ADL tasks and functional transfers. 03/23/25 2 weeks Written by Michelle Branham on 03/25/25 at 12:29 PM. * Consults - Ondina Sawyer RN - 03/25/2025 11:39 AM EDT Acute Pain Service Follow-Up Evaluation Lizandro Gr is a 45 y.o. male Follow-Up: Follow-up reason: APS rounds Location: chest Pain Rating (0-10): 4-5 Comfort/ Acceptable Pain Level: 3 Acute Pain Service Comments: Pain Service comments: Will continue Patient Controlled Analgesia infusion until primary service decides it is appropriate to discontinue. Patient received 75 doses in 24 hours with Patient Controlled Analgesia infusion for 15 mg of hydromorphone. Follow-Up: Follow-Up: Acute Pain Service will continue to follow and adjust as needed. Visit Type: Routine Current Analgesic Treatments: Inpatient Analgesics Active Medications Medication Name Dose Route Frequency acetaminophen (Tylenol) tablet 650 mg 650 mg Oral q6h VIOLETTE gabapentin (Neurontin) capsule 300 mg 300 mg Oral BID HYDROmorphone (Dilaudid) injection 0.5 mg 0.5 mg Intravenous q4h PRN for severe pain, moderate pain, only to be used 30 minutes after po diluadid HYDROmorphone (Dilaudid) tablet 4 mg 4 mg Oral q4h PRN for severe pain lidocaine (Lidoderm) 5 % patch 1 patch 1 patch Apply externally q24h methocarbamol (Robaxin) tablet 500 mg 500 mg Oral 4x daily naloxone (Narcan) injection 0.08 mg 0.08 mg Intravenous q1 min PRN for respiratory depression, for respiratory rate < 10 IV METAL SPRAY OPERATOR hydromorphone 1mg/ml 0.2mg q6min - CABG. Takes tramadol and gabapentin at home Blood pressure 119/50, pulse 89, temperature 37.5 ??C (99.5 ??F), temperature source Oral, resp. rate 22, height 1.829 m (6'), weight 108 kg (238 lb 8.6 oz), SpO2 93%. Please Contact Acute Pain Service with any additional questions or concerns via Epic Secure Chat [phone]. * Progress Notes - Katlin Jaffe, INVESTMENT SALES ASSISTANT - 03/25/2025 10:38 AM EDT Pain Consult Follow-Up Note Reason for Follow-up: Acute Pain Condition, Chronic Pain Condition, Multimodal pain management, METAL SPRAY OPERATOR- Transition Off, and Postoperative Pain Control Subjective: Lizandro Gr is a 45 y.o. male admitted on 03/22/2025 with PMH HTN, HLD, DM2 with neuropathy,CKD3 and GERD who presented to [facility] for planned CABG. Post op he was started on the typical post-CABG pain regimen with MMPC Gabapentin, Robaxin, Lidocaine patch as well as opioids with Dilaudid and Oxycodone which was unsuccessful in treating his pain so Inpatient Pain Service was consulted for METAL SPRAY OPERATOR which was started on 03/23/25. Today, primary team plans to transition of dilaudid IV METAL SPRAY OPERATOR and requests PO recommendations for oral dilaudid given oxycodone being ineffective for him previously. Mr. Gr is seen sitting [facility]. He is calm and relaxed on my visit. He reports the dilaudid IV METAL SPRAY OPERATOR has worked well to control his pain. I discussed with him the plan to transition off the IV METAL SPRAY OPERATOR onto a oral pain regimen with dilaudid. I encouraged him to use the oral medication first, allow approximately 1 hour to take effect and to reserve IV dilaudid for pain unrelieved by oral medications. He expresses understanding and is open to this plan. Home Pain Regimen: Tramadol 50 mg PO Q6H + Gabapentin 300 mg PO BID Review of Systems Objective: Allergies Patient has no known allergies. Inpatient Analgesics Active Medications Medication Name Dose Route Frequency acetaminophen (Tylenol) tablet 650 mg 650 mg Oral q6h VIOLETTE gabapentin (Neurontin) capsule 300 mg 300 mg Oral BID HYDROmorphone 1 mg/mL METAL SPRAY OPERATOR (naive protocol) no dose Intravenous Continuous HYDROmorphone 1 mg/mL clinician bolus dose 0.2-0.8 mg 0.2-0.8 mg Intravenous q15 min PRN for severepain lidocaine (Lidoderm) 5 % patch 1 patch 1 patch Apply externally q24h methocarbamol (Robaxin) tablet 500 mg 500 mg Oral 4x daily naloxone (Narcan) 2 mg in sodium chloride 0.9 % 100 mL (0.02 mg/mL) infusion (Urinary Retention or Pruritus) 0.25-1 mcg/kg/hr Intravenous Titrated PRN for urinary retention, itching Rate: 1.34-5.35 mL/hr naloxone (Narcan) injection 0.08 mg 0.08 mg Intravenous q1 min PRN for respiratory depression, for respiratory rate < 10 Physical Exam Vitals reviewed. Constitutional: General: He is not in acute distress. Pulmonary: Effort: Pulmonary effort is normal. No respiratory distress. Neurological: Mental Status: He is alert. Psychiatric: Attention and Perception: Attention normal. Behavior: Behavior is cooperative. Last Recorded Vitals: Visit Vitals BP 123/65 Pulse 86 Temp 37.5 ??C (99.5 ??F) (Oral) Ht 1.829 m (6') Wt 108 kg (238 lb 8.6 oz) SpO2 94% BMI 32.35 kg/m?? Assessment and Plan: Pain Team Actions Multimodal pain management: non opioids, Opioids Adjusted, Opioid Wean Plan Created, Pain TreatmentPreferences Discussed, and METAL SPRAY OPERATOR- Transition off Assessment: Mr. Gr has acute on chronic, opioid tolerant, well controlled somatic pain s/p CABG. Post op he was started on MMPC and PO/IV PRN opioids; however, these were unsuccessful in treating his pain so a Dilaudid IV METAL SPRAY OPERATOR was started on 03/23/25. Primary team has requested PO recommendations with oral dilaudid with plans to transition off METAL SPRAY OPERATOR today. Recommendations: - Discontinue IV METAL SPRAY OPERATOR and start: - Dilaudid 4 mg PO Q4H PRN - Give first dose 30 minutes prior to discontinuing IV METAL SPRAY OPERATOR - Dilaudid 0.5 mg IV Q4H PRN - Please use oral medications first and allow 60 minutes to take effect before utilizing IV medications for breakthrough pain - Continue MMPC with APAP, Gabapentin, Lidocaine patch and Robaxin - Continue Senna to prevent OIC Report Sent To: Musa Rosado MD IPS LISA discussed current pain and recommendations with primary provider NATHANIEL March via Secure Chat and/or this note. Medical Decision Making Amount and/or Complexity of Data Reviewed External Data Reviewed: notes. Details: 03/23 NATHANIEL Horn Consults 03/25 MD Alonzo Progress Note 03/25 MD Dominick Progress Note Discussion of management or test interpretation with external provider(s): Reviewed CBC, BMP from 03/25/25 to evaluate for appropriateness of current pain regimen. Risk Prescription drug management. Parenteral controlled substances. Drug therapy requiring intensive monitoring for toxicity. Risk Details: High risk due to use of IV and/or PO opioids with potential for life threatening complications including overdose, respiratory compromise and/or . Katlin Jaffe, MSN, [facility]- Department of Anesthesiology, Perioperative, Critical Care and Pain Medicine Inpatient Pain Service * Assessment & Plan Note - Shivani Tan MD - 03/25/2025 8:24 AM EDT Associated Problem(s): CAD (coronary artery disease) - s/p 4vCABG on 03/[address] Rosado * Assessment & Plan Note - Shivani Tan MD - 03/25/2025 8:24 AM EDT Associated Problem(s): S/P CABG x 4 - ASA, statin, beta daniel - Chest tubes out * Assessment & Plan Note - Shivani Tan MD - 03/25/2025 8:24 AM EDT Associated Problem(s): Electrolyte abnormality (Deleted) - Monitor and replace per protocol * Assessment & Plan Note - Shivani Tan MD - 03/25/2025 8:24 AM EDT Associated Problem(s): GERD (gastroesophageal reflux disease) - PPI * Assessment & Plan Note - Shivani Tan MD - 03/25/2025 8:24 AM EDT Associated Problem(s): Hypertension - SBP goal < 140 - Restart home meds as able * Assessment & Plan Note - Shivani Tan MD - 03/25/2025 8:24 AM EDT Associated Problem(s): HLD (hyperlipidemia) - Statin * Assessment & Plan Note - Shivani Tan MD - 03/25/2025 8:24 AM EDT Associated Problem(s): 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) - Endocrine following, appreciate assistance. Now on basal-bolus regimen Hemoglobin A1c Date Value Ref Range Status 02/17/2025 7.2 (H) <5.7 % Final * Assessment & Plan Note - Shivani Tan MD - 03/25/2025 8:24 AM EDT Associated Problem(s): Atrial fibrillation (CMS/HCC) (Deleted) - In sinus rhythm on arrival to CVICU - On Xarelto at home - Will continue to monitor * Assessment & Plan Note - Shivani Tan MD - 03/25/2025 8:24 AM EDT Associated Problem(s): CKD (chronic kidney disease) stage 2, GFR 60-89 ml/min (Resolved 03/25/2025) - Monitor per protocol. Creatinine, Plasma Date Value Ref Range Status 03/25/2025 1.04 0.70 - 1.20 mg/dL Final 03/24/2025 1.13 0.70 - 1.20 mg/dL Final 03/23/2025 1.09 0.70 - 1.20 mg/dL Final * Assessment & Plan Note - Shivani Tan MD - 03/25/2025 8:24 AM EDT Associated Problem(s): Postoperative pain - Multimodal pain control - Pain Team consulted for IV METAL SPRAY OPERATOR - Scheduled tylenol, robaxin, gabapentin - 03/25 - discontinue IV METAL SPRAY OPERATOR, Pain to provide PO recommendations * Jh Horton - Katlin Chaney RN - 03/25/2025 8:20 AM EDT Images from the original note were not included. [id number] Recovery From Heart Surgery: The First Few Weeks During the first few weeks after heart surgery, you?ll be regaining your energy and strength. Your health care provider will let you know what you can and can?t do as you get better. Take things slowly. And rest when you get tired. Walking Walking is one of the easiest and best ways to help yourself get better. When you walk, your legs pump blood to your heart. This improves blood flow throughout your body. Choose a safe place with a level surface. A local park or a mall are good choices. Start by walking for 5 minutes. Walk a littlelonger each day. And walk with a friend if you can. Driving Your body needs to heal before you drive. Your reflexes will be slow for a while. And some of your medicines can make you drowsy. Let others drive until your surgeon says you can drive again. Wear your seat belt when you are in a car. Lifting For the first 6 weeks, don?t lift, push, or pull more than 10 pounds ( 4.5 kg). Your health care provider may give you specific limits on how much you can lift. Follow their instructions. Showering You may feel weak the first few times you shower at home. Ask someone to stand nearby in case you need help. Don't use very hot water. It can affect your blood flow and make you dizzy. Working Your health care provider can advise you about the best plan for returning to work. You may be ableto return part-time to a desk job 6 weeks after your surgery. If you have a more active job, check with your surgeon. Sexual activity Sex is generally safe for most people within 2 to 4 weeks after uncomplicated CABG (coronary arterybypass graft) surgery. Talk with your surgeon about when it's safe for you to resume sexual activity. Your feelings It is common to feel a little depressed or frustrated while healing after major surgery. You might feel cheerful and energetic one day. And you may feel cranky and tired the next. You may find it hard to think clearly or to sleep. Or you may not be hungry. These things will get better soon. Try notto withdraw from your family and friends. Keep talking to, listening to, and supporting each other. What to watch for Watch for any signs of infection at your incision site. These include: ? Fever ? Chills ? Redness ? Drainage ? Foul-smelling odor ? Pain that gets worse Call your health care provider if any of these occur. Your provider will show you how to take your pulse. Call your provider right away if you develop a fast, slow, or irregular heartbeat. You may have low blood pressure if you become dizzy but feel better when you sit down. Have someone take your blood pressure or call your provider. If you don't feel better with sitting down, call 911 as noted below. Call 911 Call 911 if any of these occur: ? New or unusual chest pain or a return of the heart symptoms you had before surgery ? New or unusual shortness of breath ? Feeling dizzy or lightheaded, or passing out ? Pulse (heartbeat) is fast (more than 120 beats per minute) or slow (fewer than 50 beats per minute). Or your pulse is irregular, has extra beats, or skips beats. ? Heavy bleeding from the incision site, or bleeding that doesn't stop Last Reviewed Date: 2024 00:00:00 ?? [id number] The [employer]. All rights reserved. This information is not intended as a substitute for professional medical care. Always follow your healthcare professional's instructions. * Jh Sol - Katlin Chaney, LISSY - 03/25/2025 8:20 AM EDT Images from the original note were not included. 206 Heart Healthy Diet Understanding Fats, MyPlate, and the DASH Plan The facts on cholesterol Cholesterol is a fat like substance that supports the production of certain hormones. It is found in all foods of animal origin. We not only eat cholesterol, but we also produce it in our liver. Although cholesterol is important, a high blood cholesterol level can be harmful. An elevated cholesterol level can lead to atherosclerosis, which is when arteries become thickened or hard due to plaque buildup in an artery's inner lining. Atherosclerosis can lead to heart disease, strokes, and peripheral vascular disease. Certain risk factors such as an elevated cholesterol level, hypertension, cigarette smoking, lack of exercise, obesity, and a family history of heart disease increase one?s risk of developing atherosclerosis and heart disease. However, most of these risk factors can be controlled. The following dietary guidelines provide information on how to eat properly in order to reduce your risk of developing atherosclerosis. The facts on fats Polyunsaturated: These are considered beneficial fats in limited quantity. Main sources are safflower, sunflower, corn, soybean, and cottonseed oil. Usually liquid at room temperature, but start to turn solid when chilled. They can help to lower the level of blood cholesterol. Monounsaturated Fats: These are considered beneficial fat. Main sources are canola, olive, and peanut oils. They have been demonstrated to reduce the level of blood cholesterol. Saturated Fats: These fats raise blood cholesterol levels. These fats usually fats come from animalfoods, but some vegetable oils such as coconut, palm kernel, and palm oils are saturated. Hydrogenated Fats (also called trans fats): These are considered saturated fats. They are chemically changed from liquid fat to solid fat and can be categorized as partially hydrogenated or hydrogenated. Hydrogenated fats resemble saturated fats and should be avoided. Examples include margarines, shortenings, and regular peanut butter (when liquid oil is not the first ingredient). Guidelines: ? Reduce saturated fat and trans fat intake. ? Choose polyunsaturated and monounsaturated fats in place of saturated fats or trans fats, as these are considered healthy fat. ? Limit sodium intake. ? Increase intake of fiber and complex carbohydrates such as vegetables, fruits, dried beans and peas, and whole grain cereals and breads. Milk and milk products Choose: Milk and milk products with 1% or less milk fat: ? Skim (liquid, powdered or evaporated) ? ?? and 1% milk ? Skim buttermilk ? Low fat buttermilk ? Non-fat yogurt and frozen dessert ? Frozen low-fat yogurt ? Ice milk Low fat cheese containing 3 gms of fat or less per ounce: ? Raman?s cheese ? Grove?s cheese ? Part skim mozzarella cheese ? Ricotta cheese ? Low-fat cottage cheese ? Dry curd cottage cheese Always try to buy low-fat dairy products when you can, and always read the labels! Avoid: Milk and milk beverages as listed: ? 2% milk ? Whole milk ? Chocolate milk and chocolate drinks ? Evaporated or condensed whole milk ? Malted milk ? Milkshakes ? Eggnog Milk products as listed: ? Regular Cream ? Sour cream ? Half and half cream ? Whipped topping containing coconut or palm oil Cheeses containing more than 5 grams of fat per ounce: ? Cream cheese ? Creamed cottage cheese ? Natural and processed cheeses such as Vincentian, blue, mozzarella, and Polish Meat and protein substitutes Special instructions: ? Trim excess fat prior to cooking. ? Remove skin of chicken prior to cooking. ? Choose poultry and fish more often than red meat. Red meat includes beef, pork, sanchez, and veal. When you do eat red meat, choose leaner cuts when possible, such as lean ground beef (93/7, 90/10, 85/15), etc. ? Skim the fat from meat juices before adding to stews, soups, and gravy. ? Chilling the meat juices will cause the fat to harden for easier removal. ? To extend meat, use as part of a casserole or mixed with vegetables, rice, or pasta. Choose: ? Fish ? Shellfish ? Water - packed canned tuna or salmon ? Poultry without skin ? Beef and pork, lean cuts ? Veal ? Lentils ? Legumes ? Dried beans and peas ? Egg substitute ? Dried or chipped beef ? Luncheon meats with less than 3 grams fat per ounce ? Eggs ? Sanchez lean cuts ? Natural peanut butter ? Soy and texturized protein Avoid: ? Regular ground beef ? Marbled prime grade and fatty meats ? Spare ribs ? Carcamo ? Hot dogs ? Sausages ? High fat luncheon meat ? Cold cuts ? Fatty corned beef ? Goose ? Duck ? Poultry skin ? Fish canned in oil or fried ? Dried beans prepared with salt pork ? Caviar ? Organ meats (heart, liver, brains, kidney) ? Sweet breads ? Commercially fried foods ? Canned or frozen meats with gravy or sauces ? Frozen packaged convenience entrees containing more than 10 grams fat per serving ? Other frozen or packaged foods containing more than 3 grams fat per serving Breads, cereals, and grains Choose: ? Oat bran ? Oat meal ? Whole wheat ? [place] ? Pumpernickel ? White ? Raisin ? Crackers prepared without butter, lard, coconut, or palm oil ? Dry cereals that contain allowed fats ? Rice and pasta prepared with allowed fats ? Egg noodles (limit to ?? cup per day) ? Amharic ? Vincentian ? Yakut muffins ? Pancakes, waffles, biscuits, and cornbread made with allowed ingredients ? Flat bread ? Luis crackers ? Matzoh crackers ? Whole grain or enriched cereals prepared with allowed oils ? Wheat germ Avoid: ? Egg or cheese bread ? Butter rolls ? Commercially prepared products: biscuits, muffins, sweet rolls, cornbread, pancakes and waffles, yi toast, croissants ? Noodles ? Cheese crackers ? Flavored crackers prepared with saturated fats ? Any cereal prepared with saturated fat ? [place] Citizen noodles ? Rice and pasta prepared with eggs, cream, or high fat cheese Fruits Choose: ? Any fresh, frozen, canned, or dried fruit or juice ? Avocado Vegetables Choose: ? Any fresh, frozen, or canned vegetables ? Potatoes prepared with allowed fat ? Olives (limit to 10 small or 5 large per day) Avoid: ? Buttered, creamed, or fried vegetables ? Ajms-b-kwgog, commercially made ? Vegetables prepared in a cheese sauce Soups Choose: ? Bouillon and clear broth ? Fat free vegetable soup ? Dehydrated soups made with allowed fats Avoid: ? Creamed soups ? Soups made with whole milk, cream, butter, or meat fat Drinks Choose: ? Coffee ? Tea ? Carbonated beverages (If drinking soda, choose the diet version) ? Fruit drinks ? Fruit and vegetable juice ? Hot chocolate made from cocoa, skim milk, and allowed oils Avoid: ? Beverages with cream ? Commercial hot chocolate and chocolate drinks ? Eggnog ? Milkshakes ? Alcohol (except with physician?s approval) Fats Special Instructions: Including healthy fats as part of our diets is essential to giving our bodiesenergy, supporting cell function, protecting our organs, and keeping our bodies warm. They also help our bodies to absorb some nutrients and produce important hormones. There are 9 calories in every gram of fat we eat, regardless of what type of fat it is. Some foods are higher in fat than others, such as nuts, mayonnaise, salad dressings, sandwich spreads, cooking oils, etc. When eating these foods that are higher in fat, it is important to be mindful of their serving sizes. For example, a serving of nuts is considered to be a small handful or 1.5 ounces of whole nuts, or 2 tbsp of nut butter. Some examples of these foods higher in fat and their serving sizes are listed below: ? Nuts: The [place] [employer] Association recommends including 5 servings of nuts per week as part of a healthy diet. Remember to count the hidden fats in bakery products and snack foods, fat used in cooking, or on vegetables and bread. o Almonds: 20-23 almonds, or ?? cup o Hazelnuts: ~21 hazelnuts, or ?? cup o Peanuts: ~28 shelled peanuts (i.e., not in the shell), or ?? cup o Pecans: ~15-19 pecan halves, or ?? cup o Pistachios:49 kernels of pistachio nut, or ?? cup ? Walnuts: 14 walnut halves, or ?? cup ? Nut butters, such as peanut butter: 2 tablespoons ? Mayonnaise and sandwich spreads: 1 tablespoon ? Reduced-calorie salad dressings: 2 tablespoons ? Cooking oils, such as olive oil, butter, canola oil, avocado oil, etc.: 1 tablespoon o The [place] Heart Association recommends limiting oils to 3 tablespoons, or 9 teaspoons, per day. Choose: ? Liquid vegetable oils (canola, corn, cottonseed, peanut, olive, safflower, sunflower, soybean) ? Margarines with no trans fat ? Non-stick cooking sprays as desired ? Butter imitations as desired ? Commercial salad dressings prepared without cream or cheese ? Mayonnaise Avoid: ? Palm oil ? Coconut oil ? Butter ? Lard ? Salt pork ? Carcamo ? Meat drippings ? Gravies and cream sauces unless made with allowed fat and/or skim milk ? Sweet and sour milk ? Whipped toppings ? Artificial whipping cream ? Half and half cream ? Hydrogenated shortening ? Salad dressings prepared from unknown or undesirable oils ? Blue cheese salad dressing ? Margarines with first ingredient listed as a hydrogenated oil ? Filberts ? Cashews ? Macadamia nuts Sweets, desserts, and snacks Choose: ? Fresh fruit ? Dried fruits ? Fruit ices ? Sherbet ? Gelatin ? Fruit whips ? Meringues ? Animal crackers ? Fig bars ? Spenser food cake ? Cakes, pies, cookies, and frostings prepared with allowed ingredients ? Sorbet ? Ice milk ? Ray ? Gum drops ? Jelly beans ? Hard candy ? Marshmallows ? Plain sugar ? Mints ? Jam and jelly ? Honey and syrups ? Pretzels ? Popcorn prepared with allowed oils ? Low fat frozen yogurt ? Popsicles Avoid: ? Coconut ? Chocolate ? Commercial cakes, pies, cookies, and ice cream ? Desserts prepared with whole milk, saturated fats, cheese, and/or egg yolks ? Cheney chips ? Potato chips and other snack chip ? Commercial and microwave popcorn prepared with undesirable oils ? Coffee tennille (unless made with polyunsaturated fats) Understanding USDA MyPlate The USDA (US Department of Agriculture) has guidelines to help you make healthy food choices. Theseare called MyPlate. MyPlate shows the food groups that make up healthy meals using the image of a place setting. Before you eat, think about the healthiest choices for what to put onto your plate or into your cup or bowl. To learn more about building a healthy plate, visit www.choosemyplate.gov. The Food Groups ? Fruits: Any fruit or 100% fruit juice counts as part of the Fruit Group. Fruits may be fresh, canned, frozen, or dried, and may be whole, cut-up, or pureed. Make half your plate fruits and vegetables. ? Vegetables: Any vegetable or 100% vegetable juice counts as a member of the Vegetable Group. Vegetables may be fresh, frozen, canned, or dried. They can be served raw or cooked and may be whole, cut-up, or mashed. Make half your plate fruits and vegetables. ? Grains: All foods made from grains are part of the Grains Group. These include wheat, rice, oats,cornmeal, and barley such as bread, pasta, oatmeal, cereal, tortillas, and grits. Grains should be no more than a quarter of your plate. At least half of your grains should be whole grains. ? Protein: This group includes meat, poultry, seafood, beans and peas, eggs, processed soy products(like tofu), nuts (including nut butters), and seeds. Make protein choices no more than a quarter of your plate. Meat and poultry choices should be lean or low fat. ? Dairy: All fluid milk products and foods made from milk that contain calcium, like yogurt and cheese are part of the Dairy Group. (Foods that have little calcium, such as cream, butter, and cream cheese, are not part of the group.) Most dairy choices should be low-fat or fat-free. ? Oils: These are fats that are liquid at room temperature. They include canola, corn, olive, soybean, and sunflower oil. Foods that are mainly oil include mayonnaise, certain salad dressings, and soft margarines. You should have only 5 to 7 teaspoons of oils a day. You probably already get this much from the food you eat. Use WhatsApp to Help Build Your Meals The [employer] can help you plan and track your meals and activity. You can look up individual foods to see or compare their nutritional value. You can get guidelines for what and how much you should eat. You can compare your food choices. And you can assess personal physical activities and see ways you can improve. Go to www.choosemyplate.gov/Hone and Stropcker/. Eating Heart-Healthy Food: Using the DASH Plan Eating for your heart doesn?t have to be hard or boring. You just need to know how to make healthier choices. The DASH eating plan has been developed to help you do just that. DASH stands for DietaryApproaches to Stop Hypertension. It is a plan that has been proven to be healthier for your heart and to lower your risk for high blood pressure. It can also help lower your risk for cancer, heart disease, osteoporosis, and diabetes. Choosing from Each Food Group Choose foods from each of the food groups below each day. Try to get the recommended number of servings for each food group. The serving numbers are based on a diet of 2,000 calories a day. Talk to your doctor if you?re unsure about your calorie needs. Along with getting the correct servings, the DASH plan also recommends a sodium intake less than 2,300 mg per day. Grains Servings: 6-8 a day A serving is: ? 1 slice bread ? 1 ounce dry cereal ? Half a cup cooked rice, pasta or cereal Best choices: Whole grains and any grains high in fiber. Vegetables Servings: 4-5 a day A serving is: ? 1 cup raw leafy vegetable ? Half a cup cut-up raw or cooked vegetable ? Half a cup vegetable juice Best choices: Fresh or frozen vegetables prepared without added salt or fat. Fruits Servings: 4-5 a day A serving is: ? 1 medium fruit ? One-quarter cup dried fruit ? Half a cup fresh, frozen, or canned fruit ? Half a cup of 100% fruit juices Best choices: A variety of fresh fruits of different colors. Whole fruits are a better choice than fruit juices. Low-fat or Fat-free Dairy Servings: 2-3 a day A serving is: ? 1 cup milk ? 1 cup yogurt ? One and a half ounces cheese Best choices: Skim or 1% milk, low-fat or fat-free yogurt or buttermilk, and low-fat cheeses. Lean Meats, Poultry, Fish Servings: 6 or fewer a day A serving is: ? 1 ounce cooked meats, poultry, or fish ? 1 egg Best choices: Lean poultry and fish. Trim away visible fat. Broil, grill, roast, or boil instead offrying. Remove skin from poultry before eating. Limit how much red meat you eat. Nuts, Seeds, Beans Servings: 4-5 a week A serving is: ? One-third cup nuts (one and a half ounces) ? 2 tablespoons nut butter or seeds ? Half a cup cooked dry beans or legumes Best choices: ?Dry roasted? nuts with no salt added, lentils, kidney beans, garbanzo beans, and whole goodrich beans. Fats and Oils Servings: 2-3 a day A serving is: ? 1 teaspoon vegetable oil ? 1 teaspoon soft margarine ? 1 tablespoon mayonnaise ? 2 tablespoons salad dressing Best choices: Nut and vegetable oils (nontropical vegetable oils), such as olive and canola oil. Sweets Servings: 5 a week or fewer A serving is: ? 1 tablespoon sugar, maple syrup, or honey ? 1 tablespoon jam or jelly ? 1 half-ounce jelly beans (about 15) ? 1 cup lemonade Best choices: Dried fruit can be a satisfying sweet. Choose low-fat sweets. And watch your serving sizes! For more on the DASH eating plan, visit: www.nhlbi.nih.gov/health/health-topics/topics/dash * Zinakale ArmstrongRADHA - Katlin Chaney RN - 03/25/2025 8:20 AM EDT Images from the original note were not included. [id number] Eating Heart-Healthy Foods Eating has a big impact on your heart health. In fact, eating healthier can improve several of yourheart risks at once. For instance, it helps you manage weight, cholesterol, and blood pressure. Here are ideas to help you make heart- healthy changes without giving up all the foods and flavors you love. Getting started ? Talk with your healthcare provider about eating plans, such as the DASH or Mediterranean diet. You may also be referred to a dietitian. Ask a partner, family member, or friend to join you for mutual support. ? Change a few things at a time. Give yourself time to get used to a few eating changes before adding more. ? Work to create a tasty, healthy eating plan that you can stick to for the rest of your life. Goals for healthy eating Below are some tips to improve your eating habits: ? Limit saturated fats and trans fats. Saturated fats raise your levels of cholesterol, so keep these fats to a minimum. They are found in foods such as fatty meats, whole milk, cheese, and palm and coconut oils. Avoid trans fats because they lower good cholesterol as well as raise bad cholesterol.Trans fats are most often found in processed foods, such as pastries, cookies, pies, muffins, friedfoods, stick margarines, and shortening. ? Reduce how much sodium (salt) you have. Eating too much salt may increase your blood pressure. Limit your sodium intake to 2,300 milligrams (mg) per day (the amount in 1 teaspoon of salt), or less if your healthcare provider recommends it. Dining out less often and eating fewer processed foods are two great ways to decrease the amount of salt you consume. At home, flavor your foods with other spices and herbs instead of salt. ? Managing calories. A calorie is a unit of energy. Your body chandra calories for fuel, but if you eat more calories than your body chandra, the extras are stored as fat. Your healthcare provider or dietitian can help you create a diet plan to manage your calories. This will likely include eating healthier foods and getting regular exercise. To help you track your progress, keep a food diary to record what you eat and how often you exercise. Choose the right foods Aim to make these foods linda of your diet. If you have diabetes, you may have different recommendations than what is listed here: ? Fruits and vegetables provide plenty of nutrients without a lot of calories. At meals, fill half your plate with these foods. Choose between fresh, frozen, canned, or dried fruits and vegetables without added sauces, salt, or sugars. Split the other half of your plate between whole grains and lean protein. ? Whole grains are high in fiber and rich in vitamins and nutrients. Good choices include whole-wheat bread, pasta, oats, and brown rice. Make at least half of your grains whole grains. ? Lean proteins give you nutrition with less fat. Good choices include fish, skinless chicken and turkey, and beans. Draining the fat from cooked ground meat is another way to reduce the amount of fat you eat. ? Low-fat and nonfat dairy provide nutrients without a lot of fat. Try low-fat or nonfat milk, cheese, or yogurt. ? Healthy fats can be good for you in small amounts. These are unsaturated fats, such as olive oil,avocado, nuts, and fish. Try to have at least 2 servings per week of fatty fish, such as salmon, sardines, mackerel, rainbow trout, and albacore tuna. These contain omega-3 fatty acids, which are good for your heart. Flaxseed and walnuts are other sources of heart-healthy fats. More on heart-healthy eating Read food labels Healthy eating starts at the grocery store. Be sure to pay attention to food labels on packaged foods. Look for products that are high in fiber and protein and low in saturated fat, added sugars, andsodium. Avoid products that contain trans fat. And pay close attention to serving size. For instance, if you plan to eat 2 servings, double all the numbers on the label. Prepare food right A gibbs part of healthy cooking is cutting down on added fat, sugar, and salt. Look on the Internet for lower-fat, lower-sodium recipes without a lot of added sugars. Also try these tips: ? Remove fat from meat and skin from poultry before cooking. ? Skim fat from the surface of soups and sauces. ? Broil, roast, boil, bake, steam, grill, or microwave food without added fats. ? Choose ingredients that spice up your food without adding calories, fat, sugar, or sodium. Try these items: horseradish, hot sauce, lemon zest and juice, garlic, onion, mustard, nonfat salad dressings, and vinegar. Small amounts of olive oil-based vinaigrettes are OK, too. For salt-free herbs andspices, try basil, cilantro, cinnamon, cumin, paprika, pepper, and judy. Last Reviewed Date: 2022 00:00:00 ?? 9330-6463 [employer]. All rights reserved. This information is not intended as a substitute for professional medical care. Always follow your healthcare professional's instructions. * Jh Luther Katlin Chaney, RN - 03/25/2025 8:20 AM EDT Images from the original note were not included. [address] After Bypass Surgery: Reaching, Bending, and Lifting Moving carefully During your first few weeks at home, you need to move carefully. This is because your breastbone (sternum) was cut during surgery. The bone takes about 6 to 8 weeks to grow back together. It won't come apart if you move the wrong way. But you may feel pain around the cuts (incisions) or hear a clicking sound in your chest. These are warning signs to move more carefully. Follow the tips below to help prevent straining your breastbone. Reaching Until your breastbone heals, twisting your upper body can be painful. When you reach for something,follow these steps: 1. Turn with your entire body so that you face the object. 2. Step close to it. 3. Lean forward from the waist to pick it up. If you need anything that is above your shoulders, ask someone to get it for you. Bending and lifting For the first few weeks, keep the things you use most, such as clothing and dishes, at waist level.If you must bend down to lift something light, follow these steps: ? Stand close to the object. ? Put your feet shoulder-width apart, with one foot slightly in front of the other. ? Hold on to something sturdy with one hand. ? Bend at the knees. Keep your back and neck straight and your shoulders and hips in line. ? supervisor seaming the object and hold it close to your body. ? Slowly push up with your legs. Don't do heavy lifting, pushing, or pulling. If you need anything that weighs more than 5 to 10 pounds or that is on the floor, ask someone to get it for you. Stop any activity if you have shortness of breath, chest pain, irregular heartbeat, or dizziness. Call your health care provider right away, unless they gave you other directions. Last Reviewed Date: 2024 00:00:00 ?? [id number] [employer]. All rights reserved. This information is not intended as a substitute for professional medical care. Always follow your healthcare professional's instructions. * Jh Horton - Katlin Chaney RN - 03/25/2025 8:20 AM EDT Images from the original note were not included. [address]502 After Bypass Surgery: Getting Up and Out of Bed After coronary artery bypass surgery, it's important to protect your incision and healing breastbone. Move carefully as you get up from sitting or as you get out of bed. Getting up from sitting When you get up from a chair or couch, use your leg muscles, not your arms, to push your body up. To stand up: 1. Scoot to the front of the chair. 2. Place one foot slightly in front of the other. 3. Put your hands on your thighs. 4. Bend forward from the hips and push your body up with your legs. To sit down, use your leg muscles to lower yourself onto the front of the chair. Then use your leg muscles, not your arms, to scoot back. Getting out of bed When you get in and out of bed, keep your shoulders and hips in line. Also when you're getting out of bed, roll over to your side rather than trying to sit straight up. To get out of bed: ? Lie on your back and slowly scoot to the edge of the bed. ? Bend your knees slightly and roll slowly onto your side. ? Keep your upper arms close to the sides of your body. This can help prevent excess stress on yourbreastbone (sternum). Place your hands in front of your body and lean slightly forward. ? Let your legs move slowly off the edge of the bed to the floor. ? At the same time, as your legs gently swing to the floor, let the motion help raise your upper body to a sitting position. ? Sit for a moment. This will help keep you from getting dizzy. ? Put your hands on your thighs. Bend forward from the hips and push your body up with your legs. ? Don't use your arms to push up. This is to prevent putting weight on your arms. To get into bed, do the reverse. Before you leave the hospital, your health care provider will show you how to get in and out of bed. And they will show you how to stand up from a sitting position. They will teach you the correct method for body alignment. And they will teach you movements to stay away from, such as pulling to theside and twisting, or pushing and pulling with your arms. When you go home, try to have someone there who knows how to do this, such as a friend, a family member, or a caregiver. This is for your support and safety. Ask your health care provider questions if you are unsure about what to do. Last Reviewed Date: 2024 00:00:00 ?? [id number] [employer]. All rights reserved. This information is not intended as a substitute for professional medical care. Always follow your healthcare professional's instructions. * Progress Notes - Shivani Tan MD - 03/25/2025 8:18 AM EDT Procedures 03/25/25 Lizandro Gr HPI Lizandro Gr is a 45 y.o. male who presents with CAD (coronary artery disease). If applicable, patient is s/p Procedure(s) and Anesthesia Type: * CABG, 2 OR MORE VESSELS - General. Patient is 3 Days Post-Op with Cardiothoracic Surgery. Past 24 hours: PM: NAEON. AM: HDS on 4L NC. Transition from METAL SPRAY OPERATOR to oral regimen. DC central line. No BM but passing gas. To tele. Edited by: Shivani Tan MD at 03/25/2025 0821 Lines/Drains/Tubes: Patient Lines/Drains/Airways Status Active Active LDAs Name Placement date Placement time Site Days CVC Double Lumen 03/22/25 03/22/25 0856 -- 2 Peripheral IV 03/22/25 Posterior;Right Wrist 03/22/25 0635 Wrist 3 Closed/Suction Drain Inferior;Proximal;Right Leg Bulb 19 Fr. 03/22/25 1120 Leg 2 GCS: Darrell Coma Scale Score: 15 Review of Systems 14 point ROS reviewed and otherwise negative or unobtainable except as noted above or in HPI. Vital signs: Vitals: 03/25/25 0600 BP: 111/64 Pulse: 93 Resp: 20 Temp: SpO2: 91% Intake/Output Summary (Last 24 hours) at 03/25/2025 0821 Last data filed at 03/25/2025 0509 Gross per 24 hour Intake 818 ml Output 2618 ml Net -1800 ml Physical Exam: Sedation was held for the purposes of examination. Physical Exam Vitals reviewed. Constitutional: General: He is not in acute distress. HENT: Head: Normocephalic and atraumatic. Mouth/Throat: Mouth: Mucous membranes are dry. Pharynx: Oropharynx is clear. Eyes: General: Vision grossly intact. Extraocular Movements: Extraocular movements intact. Pupils: Pupils are equal, round, and reactive to light. Neck: Comments: [facility] CV Cardiovascular: Pulses: Normal pulses. Heart sounds: Normal heart sounds. Comments: No unanticipated findings. Pulmonary: Effort: Pulmonary effort is normal. Breath sounds: Normal breath sounds and air entry. Comments: No unanticipated findings. Abdominal: General: Bowel sounds are normal. Palpations: Abdomen is soft. There is no mass. Musculoskeletal: General: No deformity. Normal range of motion. Cervical back: Normal range of motion. No rigidity. Right lower leg: Edema present. Left lower leg: Edema present. Skin: General: Skin is warm and dry. Neurological: General: No focal deficit present. Mental Status: He is alert and easily aroused. Mental status is at baseline. Psychiatric: Behavior: Behavior is cooperative. Results Review {Vanishing Link Review Results :[id number] I have reviewed the latest lab and imaging results. Assessment and Plan: This patient is critically ill. Assessment & Plan CAD (coronary artery disease) Present on Admission: Unknown - s/p 4vCABG on 03/[address] Rosado S/P CABG x 4 Present on Admission: Not Applicable - ASA, statin, beta daniel - Chest tubes out Electrolyte abnormality Present on Admission: Unknown - Monitor and replace per protocol GERD (gastroesophageal reflux disease) Present on Admission: Unknown - PPI Hypertension Present on Admission: Yes - SBP goal < 140 - Restart home meds as able HLD (hyperlipidemia) Present on Admission: Yes - Statin 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) Present on Admission: Unknown - Endocrine following, appreciate assistance. Now on basal-bolus regimen Hemoglobin A1c Date Value Ref Range Status 02/17/2025 7.2 (H) <5.7 % Final Atrial fibrillation (CMS/HCC) Present on Admission: Unknown - In sinus rhythm on arrival to CVICU - On Xarelto at home - Will continue to monitor CKD (chronic kidney disease) stage 2, GFR 60-89 ml/min Present on Admission: Yes - Monitor per protocol. Creatinine, Plasma Date Value Ref Range Status 03/25/2025 1.04 0.70 - 1.20 mg/dL Final 03/24/2025 1.13 0.70 - 1.20 mg/dL Final 03/23/2025 1.09 0.70 - 1.20 mg/dL Final Postoperative pain Present on Admission: Unknown - Multimodal pain control - Pain Team consulted for IV METAL SPRAY OPERATOR - Scheduled tylenol, robaxin, gabapentin - 03/25 - discontinue IV METAL SPRAY OPERATOR, Pain to provide PO recommendations Non-Hospital Problems Microalbuminuria Type 2 diabetes mellitus with stage 2 chronic kidney disease, with long-term current use of insulin(CMS/HCC) Obesity (BMI 30-39.9) Shivani Tan MD Cosigned by Krunal Galdamez MD at 03/25/2025 12:54 PM EDT Associated attestation - Krunal Galdamez MD - 03/25/2025 12:54 PM EDT I saw and evaluated the patient. I discussed the case with the resident/fellow and agree with the findings and plan as documented. * Discharge Instr - Other Orders - Katlin Chaney RN - 03/25/2025 8:17 AM EDT Please arrive 30 minutes early for your appointment with Dr. Rosado Prior to your appointment, go to the radiology department on the 1st floor of the [facility] near [facility] for a chest x-ray. Then go to the lab on the 2nd floor for blood work. Then come to our office on the 3rd floor. Please bring your BOTTLES of medications and parking ticket in for validation. * Discharge Instr - Diet - Katlin Chaney RN - 03/25/2025 8:17 AM EDT Your food may taste funny. This is normal after surgery, and it WILL go away. Follow a heart healthy diet. (Information included) * Discharge Instr - Activity - Katlin Chaney RN - 03/25/2025 8:17 AM EDT Take a shower every day. Use a clean washcloth on your incisions every day. Wash your incisions before you wash anywhere else on your body. Do NOT use Neosporin, Peroxide, Betadine, or other ointments on your incisions. Do NOT lift, push, or frame pulley mortising machine operator 5 pounds for six weeks. Do NOT drive until your physician gives you approval. Move around as you are able. No activity that tires you out. You can sleep on your side if it is comfortable. You can ride in the front seat of the car. You canraise both arms at the same time. * Discharge Instr - AVS First Page - Katlin Chaney RN - 03/25/2025 8:17 AM EDT Temperature 101.5 or greater. Incisions coming open or draining pus. Pain not relieved by medications. Increased shortness of breath. Increased swelling. For questions or concerns, please contact??? Katlin Chaney CT Surgery Nurse Navigator at [phone] Friday through Friday 7am- 3:30pm [facility] [phone] after 3:30 pm, weekends and holidays - ask for the CT surgeon environmental projects advisor. * Progress Notes - Meera Ibarra RN - 03/25/2025 8:15 AM EDT Case Management Adult Progress Note Lizandro Gr 45 y.o. male CSN: [id number] Admission: 03/22/2025 5:35 AM Primary Problem: CAD (coronary artery disease) Anticipated Discharge Date: tbd Additional Comments: LISSY SILVESTRE reviewed chart and met with primary team to discuss plan of care. Patient is not medically ready for discharge at this time, transfer to telemetry. LISSY SILVESTRE will continue to follow. Update: CM placed [facility]. Meera Ibarra RN * Progress Notes - Musa Rosado MD - 03/25/2025 7:09 AM EDT Lizandro Gr Patient was seen and examined with resident physicians and CCM. Morning chest x- ray reviewed. Labs in last 18 hours CBC WBC 6.01 Hb 7.5 (L) Plt 105 (L) Hct 22.8 (L) ANC ?? INR ??, PTT ??, Anti-Xa ?? BMP Na 136 Cl 101 BUN 22 (H) Glu 183 (H) K 4.3 Co2 26 Cr 1.04 Ca 8.2 (L) iCa ?? Mg 1.8 (L), Phos 1.2 (L) Lactate ?? LFT AST ?? AlkPhos ?? T Prot ?? ALK ?? Bili ?? Alb ?? D.Bili ?? Current Scheduled Medications[1] Current Continuous Medications[2] Visit Vitals BP 111/64 Pulse 93 Temp 37.5 ??C (99.5 ??F) (Oral) Ht 1.829 m (6') Wt 108 kg (238 lb 8.6 oz) SpO2 91% BMI 32.35 kg/m?? Intake/Output Summary (Last 24 hours) at 03/25/2025 0710 Last data filed at 03/25/2025 0509 Gross per 24 hour Intake 1058 ml Output 2848 ml Net -1790 ml Physical Exam Constitutional: General: He is not in acute distress. Appearance: He is obese. He is not ill-appearing or toxic-appearing. HENT: Head: Normocephalic and atraumatic. Right Ear: External ear normal. Left Ear: External ear normal. Nose: Nose normal. Mouth/Throat: Mouth: Mucous membranes are moist. Eyes: General: No scleral icterus. Extraocular Movements: Extraocular movements intact. Cardiovascular: Rate and Rhythm: Normal rate and regular rhythm. Pulmonary: Effort: Pulmonary effort is normal. No respiratory distress. Abdominal: General: There is no distension. Palpations: Abdomen is soft. Tenderness: There is no abdominal tenderness. Musculoskeletal: Cervical back: Normal range of motion. Right lower leg: No edema. Left lower leg: No edema. Skin: General: Skin is warm. Capillary Refill: Capillary refill takes less than 2 seconds. Neurological: General: No focal deficit present. Mental Status: He is alert and oriented to person, place, and time. Mental status is at baseline. Psychiatric: Mood and Affect: Mood normal. Behavior: Behavior normal. Sternal incision: dressing applied Leg incision: c/d/I, RONNY with scant ss drainge Impression & Plan 45 yo M s/p 4vCABG 03/22 -aspirin, statin, beta daniel -mmpc, attempt wean off assembler body -po diuresis -remove leg drain and pacing wires -transfer to telemetry -regular diet -dvt proph [1] acetaminophen, 650 mg, Oral, q6h VIOLETTE allopurinol, 300 mg, Oral, Daily aspirin, 81 mg, Oral, Daily atorvastatin, 80 mg, Oral, Nightly colchicine, 0.6 mg, Oral, BID docusate sodium, 100 mg, Oral, BID fenofibrate, 145 mg, Oral, Daily gabapentin, 300 mg, Oral, BID heparin (porcine), 5,000 Units, Subcutaneous, q8h [facility] insulin glargine-yfgn, 20 Units, Subcutaneous, Nightly insulin lispro, 0-10 Units, Subcutaneous, TID with meals insulin lispro, 0-3 Units, Subcutaneous, Twice at night Insulin Lispro, 4 Units, Subcutaneous, TID with meals lidocaine, 1 patch, Apply externally, q24h magnesium hydroxide, 30 mL, Oral, Daily methocarbamol, 500 mg, Oral, 4x daily metoprolol tartrate, 12.5 mg, Oral, BID mupirocin, 1 Application, Each Nostril, BID pantoprazole, 40 mg, Oral, Daily polyethylene glycol, 17 g, Oral, BID senna, 17.2 mg, Oral, BID simethicone, 80 mg, Oral, 4x daily sodium chloride, 10 mL, Intravenous, q12h sodium phosphate, 30 mmol, Intravenous, Once [2] HYDROmorphone HCl, naloxone, 0.25-1 mcg/kg/hr naloxone, 0.08 mg sodium chloride, 5 mL/hr, Last Rate: 5 mL/hr (03/24/25 0000) * Care Plan - Jignesh Rooney RN - 03/24/2025 9:42 PM EDT Problem: Adult Inpatient Plan of Care Goal: Plan of Care Review Outcome: Ongoing, Progressing Flowsheets (Taken 03/24/20250) Progress: improving Plan of Care Reviewed With: patient spouse Goal: Absence of Hospital-Acquired Illness or Injury Outcome: Ongoing, Progressing Problem: Infection Goal: Absence of Infection Signs and Symptoms Outcome: Ongoing, Progressing Problem: Cardiovascular Surgery Goal: Absence of Bleeding Outcome: Ongoing, Progressing Problem: Pain Acute Goal: Optimal Pain Control and Function Outcome: Ongoing, Progressing * Consults - Arnie Rose RN - 03/24/2025 8:23 PM EDT Acute Pain Service Follow-Up Evaluation Visit Type: Routine Current Pain Treatment: Follow-Up: Follow-up reason: APS rounds Location: chest region Type: post-operative Pain Rating (0-10): 4 Comfort/ Acceptable Pain Level: 3 Frequency/ Quality: frequent Actions/ Observations: Patient sleeping then waking when in room Treatment per Protocol: Patient received 93 doses in 24 hours 18.6 mg with IVPCA. Encouraged patient to use METAL SPRAY OPERATOR button to help with pain control. Follow-Up: Follow-Up: Will continue to monitor and adjust as needed. Acute Pain Service Comments: Pain Service comments: Will continue METAL SPRAY OPERATOR and/ or infusion until primary service decides it is appropriate to discontinue METAL SPRAY OPERATOR and/ or infusion. * Care Plan - Beverly Alonso RN - 03/24/2025 6:07 PM EDT Problem: Adult Inpatient Plan of Care Goal: Plan of Care Review Outcome: Ongoing, Progressing Goal: Patient-Specific Goal (Individualized) Outcome: Ongoing, Progressing Goal: Absence of Hospital-Acquired Illness or Injury Outcome: Ongoing, Progressing Goal: Optimal Comfort and Wellbeing Outcome: Ongoing, Progressing Goal: Readiness for Transition of Care Outcome: Ongoing, Progressing Problem: Infection Goal: Absence of Infection Signs and Symptoms Outcome: Ongoing, Progressing Problem: Cardiovascular Surgery Goal: Improved Activity Tolerance Outcome: Ongoing, Progressing Goal: Optimal Coping with Heart Surgery Outcome: Ongoing, Progressing Goal: Absence of Bleeding Outcome: Ongoing, Progressing Goal: Effective Bowel Elimination Outcome: Ongoing, Progressing Goal: Effective Cardiac Function Outcome: Ongoing, Progressing Goal: Optimal Cerebral Tissue Perfusion Outcome: Ongoing, Progressing Goal: Fluid and Electrolyte Balance Outcome: Ongoing, Progressing Goal: Blood Glucose Level Within Target Range Outcome: Ongoing, Progressing Goal: Absence of Infection Signs and Symptoms Outcome: Ongoing, Progressing Goal: Anesthesia/Sedation Recovery Outcome: Ongoing, Progressing Goal: Acceptable Pain Control Outcome: Ongoing, Progressing Goal: Nausea and Vomiting Relief Outcome: Ongoing, Progressing Goal: Effective Urinary Elimination Outcome: Ongoing, Progressing Goal: Effective Oxygenation and Ventilation Outcome: Ongoing, Progressing Problem: Pain Acute Goal: Optimal Pain Control and Function Outcome: Ongoing, Progressing Problem: Self-Care Deficit Goal: Improved Ability to Complete Activities of Daily Living Outcome: Ongoing, Progressing Problem: Wound Goal: Improved Oral Intake Outcome: Ongoing, Progressing Problem: Chest Pain Goal: Resolution of Chest Pain Symptoms Outcome: Ongoing, Progressing * Consults - Hilda Mera APRN - 03/24/2025 2:44 PM EDTAssociated Order(s): Inpatient consult to Endocrinology Inpatient consult to Endocrinology Consult performed by: Hilda Mera APRN Consult ordered by: Musa Rosado MD Reason for consult: DM management History Of Present Illness Lizandro Gr is a 45 y.o. male PMH CAD, CKD, HLD, T2DM, Afib presented to [facility] for CABG on 03/22. Endocrine Diabetes team was consulted for glycemic management on 03/24/25 for post CABG glucose management. The following diabetes history was provided by patient, significant other at bedside. Chart review of prior external notes also performed to obtain additional information. Patient sitting up in chair, feels well and walked in halls 2x earlier today. Started on regular diet and ate about 50% with breakfast and lunch. -DM type: T2DM -Provider managing diabetes: PCP -DM home medications: Lantus: 80 units in PM (hasn't been taking most nights due to hypo episodes) Novolo units with meals (15 units if BG 130-170, hold is less than 130) Jardiance: recently stopped prior to surgery -Medication compliance per pt: good overall, he has made insulin dose adjustments or not taken due to hypoglycemia episodes due to dietary changes beginning about 3 months ago. Began eating healthierwith less carbs -Monitoring glucose: Dexcom G6 Average: 160-180 Highs: rarely in 200s Hypoglycemia Screen - Having lows: 1-2x per week, less since started self adjusting insulin dosing - Symptoms of hypoglycemia: lightheaded, cold sweat, confusion - Hx of LOC w/ low: denies -Hx of DKA: denies -Diet: 3 meals per day, has been eating healthier with more protein and veggies. Drinks diet soda or sugar free gatorade -Physically activity: [place] so keeps busy with tasks, more limited as he got more sick -Complications: Retinopathy: denies Neuropathy: + Nephropathy: + Gastroparesis: denies ASCVD: + - Hx of ETOH abuse: denies - Hx of thyroid cancer in patient or family: denies - Hx of Pancreatitis: denies - Hx of persistent UTI or denise infection: denies - Hx of HF: + Past Medical History He has a past medical history of CAD, multiple vessel (03/22/2025), Chronic kidney disease, Coronary artery disease, GERD (gastroesophageal reflux disease), Hyperlipidemia, Hypertension, and Type 2 diabetes mellitus. Surgical History He has a past surgical history that includes Cardiac catheterization (02/16/2025). Family History Family History[1] Social History He reports that he has never smoked. He has never been exposed to tobacco smoke. He has never used smokeless tobacco. He reports that he does not drink alcohol and does not use drugs. Allergies Patient has no known allergies. Medications Prescriptions Prior to Admission[2] Current Medications[3] Review of Systems Review of Systems Constitutional: Positive for fatigue. Negative for chills and fever. Respiratory: Negative for cough and shortness of breath. Cardiovascular: Negative for chest pain and leg swelling. Gastrointestinal: Negative for diarrhea, nausea and vomiting. Musculoskeletal: Positive for arthralgias (shoulder pain). Skin: Positive for wound. Negative for pallor. Neurological: Positive for weakness. Negative for dizziness. Psychiatric/Behavioral: Negative for confusion and decreased concentration. Physical Exam Physical Exam Vitals reviewed. Constitutional: General: He is not in acute distress. Appearance: Normal appearance. HENT: Head: Normocephalic. Nose: Nose normal. Mouth/Throat: Mouth: Mucous membranes are moist. Eyes: Extraocular Movements: Extraocular movements intact. Conjunctiva/sclera: Conjunctivae normal. Cardiovascular: Rate and Rhythm: Normal rate. Pulmonary: Effort: Pulmonary effort is normal. No respiratory distress. Abdominal: General: Abdomen is flat. Palpations: Abdomen is soft. Skin: General: Skin is warm and dry. Comments: Sternal wound dry, intact Neurological: General: No focal deficit present. Mental Status: He is alert and oriented to person, place, and time. Motor: Weakness present. Psychiatric: Mood and Affect: Mood normal. Behavior: Behavior normal. Thought Content: Thought content normal. Last Recorded Vitals Blood pressure 112/64, pulse 87, temperature 37.3 ??C (99.2 ??F), temperature source Oral, resp. rate (!) 28, height 1.829 m (6'), weight 103 kg (227 lb 15.3 oz), SpO2 95%. Relevant Results Results from last 7 days Lab Units 03/24/25 0007 SODIUM mmol/L 137 POTASSIUM mmol/L 4.4 CHLORIDE mmol/L 104 CO2 mmol/L 25 BUN mg/dL 21 CREATININE mg/dL 1.13 EGFR mL/min/1.73m*2 82.7 GLUCOSE mg/dL 164* CALCIUM mg/dL 8.4* Results from last 7 days Lab Units 03/24/25 0007 WBC 10*3/uL 11.14* HEMOGLOBIN g/dL 8.5* HEMATOCRIT % 26.3* PLATELETS 10*3/uL 121* Lab Results Component Value Date GLUCOSE 164 (H) 03/24/2025 GLUCOSE 159 (H) 03/23/2025 GLUCOSE 188 (H) 03/22/2025 PGLU 208 (H) 03/24/2025 PGLU 208 (H) 03/24/2025 PGLU 146 (H) 03/24/2025 PGLU 180 (H) 03/24/2025 PGLU 143 (H) 03/24/2025 PGLU 176 (H) 03/23/2025 PGLU 140 (H) 03/23/2025 PGLU 163 (H) 03/23/2025 Lab Results Component Value Date HGBA1C 7.2 (H) 02/17/2025 I have independently reviewed and interpreted the patient's blood glucose levels in Epic timeline, labs, vitals, and insulin doses administered in the electronic medical record. Diet Dietary Orders (From admission, onward) Start Ordered 03/24/25 0804 Adult diet Diet texture: Regular; Carbohydrate restriction: Consistent Carb 2 (80 gm max/meal); Sodium restriction: No added salt (Adult Diet Panel) Diet effective now Comments: Unsweet tea please No sweetened juices References: IDDSI Diet Texture Guide Question Answer Comment Diet texture Regular Carbohydrate restriction: Consistent Carb 2 (80 gm max/meal) Sodium restriction: No added salt 03/24/25 0804 03/23/25 1511 Oral nutrition supplements (Adult Diet Panel) Until discontinued Comments: Start once diet advances past Clear Liquids Question Answer Comment Supplement frequency: Breakfast Supplement frequency: Dinner Breakfast supplement: Impact AR Vanilla Quantity for Breakfast of Impact AR Vanilla One Dinner supplement: Impact AR Vanilla Quantity for Dinner of Impact AR Vanilla One 03/23/25 1511 Assessment Lizandro Gr is a 45 y.o. male PMH CAD, CKD, HLD, T2DM, Afib presented to [facility] for CABG on 03/22. Endocrine Diabetes team was consulted for glycemic management on 03/24/25 for post CABG glucose management. Primary team requests recommendations and orders Daily Glucose and Insulin Total Daily Dose -03/23: BG 126-176, insulin drip 1.68-4 u/hr -consulted 03/24 Diagnoses #DM, type 2 -A1c: 7.2 in February 2025 -Home regimen: Lantus: 80 units in PM (hasn't been taking most nights due to hypo episodes) Novolo units with meals (15 units if BG 130-170, hold is less than 130) Jardiance: recently stopped prior to surgery -Elevated HgA1C levels impact all body systems with increased risk for worsening of conditions including renal function, heart disease, eye disease, neuropathy, foot ulcerations, lower extremity amputation, gastroparesis, and overall increased risk for mortality #CAD #s/p CABG x4 03/22 #anemia Lab Results Component Value Date HGB 8.5 (L) 03/24/2025 -can lead to false low A1c. Must rely on intensive monitoring of glucose #leukocytosis Lab Results Component Value Date WBC 11.14 (H) 03/24/2025 -underlying infection can contribute to hyperglycemia. Once leukocytosis starts resolving, glucose will likely lower -requires close monitoring of glycemic patterns #CKD Lab Results Component Value Date BUN 21 03/24/2025 CREATININE 1.13 03/24/2025 EGFR 82.7 03/24/2025 -risks of prolonged excretion of insulin, insulin stacking and hypoglycemia. recommend caution withinsulin adjustments, requires intensive monitoring #obesity -leads to insulin resistance -complicating all aspects of care Plan -After review of glucose trends and insulin delivery over the last 24 hours, titration of intensiveinsulin therapy was made to overall improve glycemic control and improve patient outcomes Current Insulin Regimen: Basal: start 20 units glargine in PM Bolus: start 4 units lispro with meals -Give 1/2 dose if eating 25-50% of meal -HOLD if patient NPO or if patient eats less than 25% of meal -Please document % of meal consumed in intake and output flowsheet Correction: resistant correction with CF 2:50>150 AC and 1:50>250 HS, 0300 -continue to assess blood glucose trends and adjust basal/bolus insulin therapy dose accordingly -continue intensive glucose monitoring due to increased risk for hyper/hypoglycemia secondary to insulin therapy -fsbg ac/hs when eating, q6h when NPO, on TF/TPN -correction insulin to be given for hyperglycemia, do not hold correction if patient does not eat -hypoglycemia protocol in place -please document the percentage of meals consumed in intake and output flowsheet -please notify us when diet orders change or steroids added as this impacts our treatment -plan and management discussed with patient, family member, bedside engineering department chair planning -Diabetes education: likely not needed -Follow-up plan: PCP and Offer [facility] endocrinology services at discharge -Tentative discharge medications: Insulin regimen- dosing TBD Continue Dexcom CGM May substitute for therapeutic equivalent per insurance and retail PharmD approval -Supplies/scripts needed: Ensure patient has working glucose meter and supplies DM/Endo team will continue to follow. Please notify us as patient nears discharge for final recommendations Please contact Hilda Mera APRN via secure chat or page us at [phone] during -7p, Friday-Friday. For after hours please contact the on-call Endocrine Fellow. Thank you for the opportunity to participate in this patient's care. Time Spent: I personally spent a total of 60 minutes on this encounter. This time includes face to face with patient, counseling and discussion and/or coordination of care. [1] Family History Problem Relation Name Age of Onset Hypertension Mother Diabetes type II Mother Diabetes Mother Stroke Mother Cancer Father Lung cancer Father Anesthesia problems Neg Hx Malig Hyperthermia Neg Hx [2] Medications Prior to Admission Medication Sig Dispense Refill Last Dose/Taking allopurinol (Zyloprim) 300 MG tablet Take by mouth 1 (one) time each day. 03/21/2025 aspirin 81 MG EC tablet Take 1 tablet by mouth daily. 03/20/2025 atorvastatin (Lipitor) 40 MG tablet Take by mouth 1 (one) time each day. 03/20/2025 dilTIAZem CD (Cardizem CD) 120 MG 24 hr capsule Take 1 capsule by mouth daily. 03/21/2025 at 8:00 AM fenofibrate (Tricor) 145 MG tablet Take 1 tablet by mouth daily. 03/21/2025 at 8:00 AM gabapentin (Neurontin) 300 MG capsule Take 1 capsule by mouth 2 times a day. 03/21/2025 Morning hydroCHLOROthiazide (HYDRODiuril) 25 MG tablet Take 1 tablet by mouth daily. 03/18/2025 Insulin Aspart (NOVOLOG FLEXPEN SC) Inject 30 Units under the skin 3 (three) times a day before meals. 03/21/2025 at 5:00 PM Jardiance 25 MG Take 1 tablet by mouth daily. 03/18/2025 Kerendia 10 MG tablet Take 10 mg by mouth daily. 03/21/2025 at 8:00 AM Lantus SoloStar 100 UNIT/ML injection pen Inject 3-5 Units under the skin at night as needed. Taking As Needed lisinopril 20 MG tablet Take 1 tablet by mouth daily. 03/18/2025 nebivolol (Bystolic) 5 MG tablet Take 1 tablet by mouth daily. 03/21/2025 at 8:00 AM nitroglycerin (Nitrostat) 0.4 MG SL tablet DISSOLVE 1 TABLET UNDER THE TONGUE EVERY 5 MINUTES NEEDED FOR CHEST PAIN. DO NOT EXCEED A TOTAL OF 3 DOSES IN 15 MINUTES. IF NO RELIEF CALL 911. Taking omeprazole (PriLOSEC) [address] capsule Take 1 capsule by mouth daily. 03/19/2025 sildenafil (Viagra) 100 MG tablet Take 1 tablet by mouth as needed for erectile dysfunction. TakingAs Needed traMADol (Ultram) 50 MG tablet Take by mouth every 6 hours. 03/21/2025 at 8:00 AM Xarelto 20 MG tablet TAKE 1 TABLET BY MOUTH EVERY EVENING WITH EVENING MEAL 03/17/2025 [3] Current Facility-Administered Medications Medication Dose Route Frequency Provider Last Rate Last Admin acetaminophen (Tylenol) tablet 650 mg 650 mg Oral q6h [facility] Musa Sargent, DO 650 mg at 03/24/25 1145 allopurinol (Zyloprim) tablet 300 mg 300 mg Oral Daily Krunal Galdamez MD 300 mg at 03/24/25 08 aspirin chewable tablet 81 mg 81 mg Oral Daily Marquise Raygoza MD 81 mg at 03/24/25825 atorvastatin (Lipitor) tablet 80 mg 80 mg Oral Nightly Marquise Raygoza MD 80 mg at 03/23/252043 colchicine (Colcrys) tablet 0.6 mg 0.6 mg Oral BID Krunal Galdamez MD 0.6 mg at 03/24/25 08 glucose (Glutose) 40 % oral gel 15-30 grams of glucose 15-30 grams of glucose Sublingual q15 min PRMarquise Trujillo MD Or dextrose 50 % solution 12.5-25 g 12.5-25 g Intravenous q15 min PRN Marquise Raygoza MD Or glucagon (human recombinant) injection 1 mg 1 mg Intramuscular q15 min PRMarquise Trujillo MD docusate sodium (Colace) capsule 100 mg 100 mg Oral BID Marquise Raygoza MD 100 mg at 03/24/25 0826 fenofibrate (Tricor) tablet 145 mg 145 mg Oral Daily Krunal Galdamez MD 145 mg at 03/24/25 0826 gabapentin (Neurontin) capsule 300 mg 300 mg Oral BID Shivani Tan MD 300 mg at 03/24/25 0826 heparin (porcine) injection 5,000 Units 5,000 Units Subcutaneous q8h [facility] Marquise Raygoza MD 5,000Units at 03/24/25 1408 HYDROmorphone 1 mg/mL METAL SPRAY OPERATOR (naive protocol) Intravenous Continuous Fritz Mccracken MD New Syringe/Cartridge at 03/23/25 0949 And HYDROmorphone 1 mg/mL clinician bolus dose 0.2-0.8 mg 0.2-0.8 mg Intravenous q15 min PRN Fritz Mccracken MD insulin lispro (Admelog) 100 units/mL injection - Correction - Resistant Dose 0- 10 Units Subcutaneous TID with meals Shivani Tan MD 4 Units at 03/24/25 1151 insulin lispro (Admelog) injection - Correction - Nighttime Dose 0-3 Units Subcutaneous Twice at night Shivani Tan MD insulin regular (HumuLIN, NovoLIN) bolus from bag 1-10 Units 1-10 Units Intravenous Once Marquise Raygoza MD insulin regular (HumuLIN, NovoLIN) bolus from bag 3 Units 3 Units Intravenous q2h PRN Marquise Raygoza MD insulin regular in sodium chloride 0.9 % 1 UNIT/ML infusion (Standard Insulin Protocol) 0.5-30 Units/hr Intravenous Titrated Marquise Raygoza MD Stopped at 03/24/25 0601 ipratropium-albuterol (Duo-Neb) 0.5-2.5 mg/3 mL nebulizer solution 3 mL 3 mL Nebulization 4x daily PRN Marquise Raygoza MD lidocaine (Lidoderm) 5 % patch 1 patch 1 patch Apply externally q24h Musa Sargent, DO 1 patch at 03/23/25 2044 magnesium hydroxide (Milk of Magnesia) 400 MG/5ML suspension 30 mL 30 mL Oral Daily Tristen Tan MD 30 mL at 03/24/25 0826 methocarbamol (Robaxin) tablet 500 mg 500 mg Oral 4x daily Lisa Castro, INVESTMENT SALES ASSISTANT 500 mg at 03/24/25 1408 metoprolol tartrate (Lopressor) split tablet 12.5 mg 12.5 mg Oral BID Shivani Tan MD 12.5 mgat 03/24/25 0826 mupirocin (Bactroban) 2 % ointment 1 Application 1 Application Each Nostril BID Marquise Raygoza MD 1 Application at 03/24/25 0826 naloxone (Narcan) 2 mg in sodium chloride 0.9 % 100 mL (0.02 mg/mL) infusion (Urinary Retention or Pruritus) 0.25-1 mcg/kg/hr Intravenous Titrated PRN Fritz Mccracken MD naloxone (Narcan) injection 0.08 mg 0.08 mg Intravenous q1 min PRN Fritz Mccracken MD ondansetron (Zofran) injection 4 mg 4 mg Intravenous q6h PRN Marquise Raygoza MD pantoprazole (Protonix) EC tablet 40 mg 40 mg Oral Daily Lisa Castro, INVESTMENT SALES ASSISTANT 40 mg at 03/24/25 0826 phosphorus (K Phos Neutral) tablet 1 tablet 1 tablet Oral q8h Chris Carcamo MD 1 tablet at 03/24/25 0826 polyethylene glycol (Miralax) packet 17 g 17 g Oral BID Shivani Tan MD 17 g at 03/24/25 0826 senna (Senokot) tablet 17.2 mg 17.2 mg Oral BID Shivani Tan MD 17.2 mg at 03/24/25 0826 simethicone (Mylicon) chewable tablet 80 mg 80 mg Oral 4x daily Shivani Tan MD 80 mg at 03/24/25 1408 sodium chloride 0.9 % flush 10 mL 10 mL Intravenous q12h Musa Rosado MD 10 mL at 03/24/25 0606 sodium chloride 0.9 % flush 10 mL 10 mL Intravenous q1h PRN Musa Rosado MD sodium chloride 0.9 % flush 20 mL 20 mL Intravenous q1h PRN Musa Rosado MD sodium chloride 0.9 % infusion 5 mL/hr Intravenous Continuous Fritz Mccracken MD 5 mL/hr at 03/24/25 0000 5 mL/hr at 03/24/25 0000 Cosigned by Clark Bills MD at 03/24/2025 3:27 PM EDT Associated attestation - Clark Bills MD - 03/24/2025 3:27 PM EDT The patient was seen only by Advanced Practice Provider (LISA). * Progress Notes - Marquise Raygoza MD - 03/24/2025 12:08 PM EDT Images from the original note were not included. CARDIOTHORACIC SURGERY PROGRESS NOTE SUBJECTIVE Acute Events/Last 24 Hrs: No acute events. On IV METAL SPRAY OPERATOR. OOBC. OBJECTIVE All laboratory data, images, tracings, and vital sign data for past 24 hours are personally reviewed unless otherwise noted. Physical Exam VITALS (last 24h) 03/24/2025 5:00 AM 03/24/2025 6:00 AM 03/24/2025 7:00 AM 03/24/2025 8:00 AM 03/24/2025 9:00 AM 03/24/2025 10:00 AM 03/24/2025 11:00 AM Vitals Heart Rate 83 90 83 88 84 79 92 Temp 38.2 C Resp 16 20 11 19 17 12 26 Weight (kg) 103.4 kg BMI 30.92 kg/m2 BSA (m2) 2.29 m2 PAP: (12-32)/(5-14) 12/5 CO: [7.3 L/min] 7.3 L/min CI: [3.3 L/min/m2] 3.3 L/min/m2 O2 Delivery Method: Nasal cannula GENERAL: No acute distress, resting comfortably EYES: extraoccular eye movement grossly intact, pupils equal and reactive, anicteric NECK: no JVD, no thyromegaly RESP/CHEST: Symmetric expansion; non labored. CTA bilaterally. CARD: regular rate and rhythm, no murmur appreciated EXTREMITIES: No lower extremity edema present. GI: Soft, Nontender, nondistended. NEURO: AAOx4. No focal deficits PSYCH: Mood and affect congruent and appropriate to situation. INCISIONS: Sternum - Wound Vac in place Leg - Surgical dressing in place Intake/Output Intake/Output Summary (Last 24 hours) at 03/24/2025 1208 Last data filed at 03/24/2025 1000 Gross per 24 hour Intake 1045.95 ml Output 2004 ml Net -958.05 ml Results Labs in last 18 hours CBC WBC 11.14 (H) Hb 8.5 (L) Plt 121 (L) Hct 26.3 (L) ANC ?? INR ??, PTT ??, Anti-Xa ?? BMP Na 137 Cl 104 BUN 21 Glu 164 (H) K 4.4 Co2 25 Cr 1.13 Ca 8.4 (L) iCa 4.6 Mg 2.1, Phos 2.1 (L) Lactate 1.1 LFT AST ?? AlkPhos ?? T Prot ?? ALK ?? Bili ?? Alb ?? D.Bili ?? Imaging No echocardiogram results found for the past 14 days No valid procedures specified. XR Chest 1 View Result Date: 03/24/2025 Interval removal of the [place] catheter. Otherwise no significant interval change. CRITICAL RESULT: No. COMMUNICATION: Per this written report. Drafted by Milli Elkins MD on 03/24/2025 9:51 AM Final report signed by Milli Elkins MD on 03/24/2025 9:52 AM ASSESSMENT & PLAN Principal Problem: CAD (coronary artery disease) Active Problems: CKD (chronic kidney disease) stage 2, GFR 60-89 ml/min Hypertension HLD (hyperlipidemia) S/P CABG x 4 Electrolyte abnormality GERD (gastroesophageal reflux disease) Anemia 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) Atrial fibrillation (CMS/HCC) Postoperative pain 45 yrs male who underwent CABGx4 on 03/22/[address] Rosado. (2 Days Post-Op) - Aspirin, statin, beta daniel - 40mg PO Lasix - Remove chest tubes - Incisional wound vac until POD 5 - Remove pulmonary artery catheter - Remove bryant catheter - Remover arterial line if noninvasive monitoring correlates - Mobilize, PT/OT - Continue ICU care Cardiothoracic Surgery 03/24/25 12:08 PM Cosigned by Musa Rosado MD at 03/27/2025 11:04 AM EDT * Progress Notes - Katerina Ibarra - 03/24/2025 11:38 AM EDT Inpatient Cardiac Rehab Assessment Patient Name: Lizandro Gr Subjective: Mr. Gr qualifies for outpatient cardiac rehab due to recent CABG. I/R/P: Lizandro Gr qualifies for outpatient cardiac rehab. Will send referral to patients preferred location, [facility]. [facility] will contact Mr. Gr to discuss and schedule. Cardiac Rehabilitation Program Referral 1. Participation in a Phase II cardiac rehabilitation program is recommended. Patient was informed about what cardiac rehabilitation has to offer and why it is beneficial. The plan of care for the rehabilitation program consists of risk factor modification, monitored and supervised exercise and assistance in the recovery process with ongoing education and support. Patient is patient interested incardiac rehab?: may be interested in attending a cardiac rehabilitation program. 2. Eligibility: CABG 3. Exceptions/exclusions: [facility] Cardiac Rehab Exclusions: None 4. Referral: [facility] Cardiac Rehab Referral: Patient will consider participating in a cardiac rehabilitation program. Patient was provided with contact information for the following program([facility] [place] [phone]. 5. Information sent: Information Sent: Appropriate information will be sent to the receiving cardiac rehabilitation program.: * Assessment & Plan Note - Krnual Galdamez MD - 03/24/2025 11:35 AM EDT Associated Problem(s): CAD (coronary artery disease) - s/p 4vCABG on 03/[address] Rosado * Assessment & Plan Note - Krunal Galdamez MD - 03/24/2025 11:35 AM EDT Associated Problem(s): S/P CABG x 4 - ASA, statin, beta daniel - Monitor chest tube output * Assessment & Plan Note - Krunal Galdamez MD - 03/24/2025 11:35 AM EDT Associated Problem(s): Electrolyte abnormality (Deleted) - Monitor and replace per protocol * Assessment & Plan Note - Krunal Galdamez MD - 03/24/2025 11:35 AM EDT Associated Problem(s): GERD (gastroesophageal reflux disease) - PPI * Assessment & Plan Note - Krunal Galdamez MD - 03/24/2025 11:35 AM EDT Associated Problem(s): Hypertension - SBP goal < 140 - Restart home meds as able * Assessment & Plan Note - Krunal Galdamez MD - 03/24/2025 11:35 AM EDT Associated Problem(s): HLD (hyperlipidemia) - Statin * Assessment & Plan Note - Krunal Galdamez MD - 03/24/2025 11:35 AM EDT Associated Problem(s): 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) - Continue Insulin gtt until eating more, will likely need basal-bolus regimen - On tramadol and gabapentin at home for neuropathy - will restart gabapentin after extubated - Endocrine consult 03/24 Hemoglobin A1c Date Value Ref Range Status 02/17/2025 7.2 (H) <5.7 % Final * Assessment & Plan Note - Krunal Galdamez MD - 03/24/2025 11:35 AM EDT Associated Problem(s): Atrial fibrillation (CMS/HCC) (Deleted) - In sinus rhythm on arrival to CVICU - On Xarelto at home - Will continue to monitor * Assessment & Plan Note - Krunal Galdamez MD - 03/24/2025 11:35 AM EDT Associated Problem(s): CKD (chronic kidney disease) stage 2, GFR 60-89 ml/min (Resolved 03/25/2025) - Monitor per protocol. Creatinine, Plasma Date Value Ref Range Status 03/24/2025 1.13 0.70 - 1.20 mg/dL Final 03/23/2025 1.09 0.70 - 1.20 mg/dL Final 03/22/2025 1.19 0.70 - 1.20 mg/dL Final * Assessment & Plan Note - Krunal Galdamez MD - 03/24/2025 11:35 AM EDT Associated Problem(s): Postoperative pain - Multimodal pain control - Pain Team consulted for IV METAL SPRAY OPERATOR - Restart home gabapentin when appropriate * Progress Notes - Krunal Galdamez MD - 03/24/2025 11:33 AM EDTAssociated Order(s): Critical Care Post-Procedure Diagnose(s): CAD, multiple vessel Critical Care Performed by: Krunal Galdamez MD Authorized by: Krunal Galdamez MD Critical care provider statement: Critical care time (minutes): 38 Critical care time was exclusive of: Separately billable procedures and treating other patients andteaching time Critical care was time spent personally by me on the following activities: Development of treatmentplan with patient or surrogate, ordering and performing treatments and interventions, discussions with consultants, ordering and review of laboratory studies, discussions with primary provider, ordering and review of radiographic studies, evaluation of patient's response to treatment and examination of patient Critical care statement: I saw and evaluated the patient with the resident/ fellow. I discussed thecase with the resident/ fellow and agree with the findings and plan as documented. 03/24/25 Lizandro Gr HPI Lizandro Gr is a 45 y.o. male who presents with CAD (coronary artery disease). If applicable, patient is s/p Procedure(s) and Anesthesia Type: * CABG, 2 OR MORE VESSELS - General. Patient is 2 Days Post-Op with Cardiothoracic Surgery. Past 24 hours: PM: Adv regular diet. 250 bolus for hypotension. Consider endo consult for DM management. AM: Continue to optimize pain control. Order CPAP for overnight. Increased bowel reg and added simethicone for gastric bubble. Continue to monitor fevers. Resistant SSI. Endocrine consult for diabetes medication recommendations. ABIODUN bryant. Consider line removal in afternoon if pressures improve. Edited by: Shivani Tan MD at 03/24/2025 1133 Lines/Drains/Tubes: Patient Lines/Drains/Airways Status Active Active LDAs Name Placement date Placement time Site Days CVC Double Lumen 03/22/25 03/22/25 0856 -- 2 Peripheral IV 03/22/25 Posterior;Right Wrist 03/22/25 0635 Wrist 2 Chest Tube Mediastinal 36 Fr 03/22/25 1422 Mediastinal 1 Closed/Suction Drain Inferior;Proximal;Right Leg Bulb 19 Fr. 03/22/25 1120 Leg 2 Y Chest Tube 1 and 2 Right Pleural 24 Fr. Left Pleural 28 Fr. 03/22/25 1422 -- 1 Arterial Line 03/22/25 Right Radial 03/22/25 0847 Radial 2 GCS: [place] Coma Scale Score: 15 Review of Systems 14 point ROS reviewed and otherwise negative or unobtainable except as noted above or in HPI. Vital signs: Vitals: 03/24/25 1100 BP: Pulse: 92 Resp: 26 Temp: SpO2: 93% Intake/Output Summary (Last 24 hours) at 03/24/2025 1133 Last data filed at 03/24/2025 1000 Gross per 24 hour Intake 1245.95 ml Output 2043 ml Net -797.05 ml Physical Exam: Sedation was held for the purposes of examination. Physical Exam Vitals reviewed. Constitutional: General: He is not in acute distress. HENT: Head: Normocephalic and atraumatic. Mouth/Throat: Mouth: Mucous membranes are dry. Pharynx: Oropharynx is clear. Eyes: General: Vision grossly intact. Extraocular Movements: Extraocular movements intact. Pupils: Pupils are equal, round, and reactive to light. Neck: Comments: RI CVC Cardiovascular: Pulses: Normal pulses. Heart sounds: Normal heart sounds. Comments: No unanticipated findings. Pulmonary: Effort: Pulmonary effort is normal. Breath sounds: Normal breath sounds and air entry. Comments: No unanticipated findings. Abdominal: General: Bowel sounds are normal. Palpations: Abdomen is soft. There is no mass. Musculoskeletal: General: No deformity. Normal range of motion. Cervical back: Normal range of motion. No rigidity. Right lower leg: Edema present. Left lower leg: Edema present. Comments: Radial arterial line Skin: General: Skin is warm and dry. Neurological: General: No focal deficit present. Mental Status: He is alert and easily aroused. Mental status is at baseline. Psychiatric: Behavior: Behavior is cooperative. Results Review {Vanishing Link Review Results :[id number] I have reviewed the latest lab and imaging results. Assessment and Plan: This patient is critically ill. Assessment & Plan CAD (coronary artery disease) Present on Admission: Unknown - s/p 4vCABG on 03/[address] Rosado S/P CABG x 4 Present on Admission: Not Applicable - ASA, statin, beta daniel - Monitor chest tube output Electrolyte abnormality Present on Admission: Unknown - Monitor and replace per protocol GERD (gastroesophageal reflux disease) Present on Admission: Unknown - PPI Hypertension Present on Admission: Yes - SBP goal < 140 - Restart home meds as able HLD (hyperlipidemia) Present on Admission: Yes - Statin 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) Present on Admission: Unknown - Continue Insulin gtt until eating more, will likely need basal-bolus regimen - On tramadol and gabapentin at home for neuropathy - will restart gabapentin after extubated - Endocrine consult 03/24 Hemoglobin A1c Date Value Ref Range Status 02/17/2025 7.2 (H) <5.7 % Final Atrial fibrillation (CMS/HCC) Present on Admission: Unknown - In sinus rhythm on arrival to CVICU - On Xarelto at home - Will continue to monitor CKD (chronic kidney disease) stage 2, GFR 60-89 ml/min Present on Admission: Yes - Monitor per protocol. Creatinine, Plasma Date Value Ref Range Status 03/24/2025 1.13 0.70 - 1.20 mg/dL Final 03/23/2025 1.09 0.70 - 1.20 mg/dL Final 03/22/2025 1.19 0.70 - 1.20 mg/dL Final Postoperative pain Present on Admission: Unknown - Multimodal pain control - Pain Team consulted for IV METAL SPRAY OPERATOR - Restart home gabapentin when appropriate Non-Hospital Problems Microalbuminuria Type 2 diabetes mellitus with stage 2 chronic kidney disease, with long-term current use of insulin(CMS/HCC) Obesity (BMI 30-39.9) Shivani Tan MD * Consults - Ondina Sawyer RN - 03/24/2025 8:57 AM EDT Acute Pain Service Follow-Up Evaluation Lizandro Gr is a 45 y.o. male Follow-Up: Follow-up reason: APS rounds Location: chest Pain Rating (0-10): 5 Comfort/ Acceptable Pain Level: Patient states, Pain currently tolerable Acute Pain Service Comments: Pain Service comments: Will continue Patient Controlled Analgesia infusion until primary service decides it is appropriate to discontinue. Patient received 93 doses in 23 hours with Patient Controlled Analgesia infusion for 18.6 mg of hydromorphone. Follow-Up: Follow-Up: Acute Pain Service will continue to follow and adjust as needed. Visit Type: Routine Current Analgesic Treatments: Inpatient Analgesics Active Medications Medication Name Dose Route Frequency acetaminophen (Tylenol) tablet 650 mg 650 mg Oral q6h VIOLETTE gabapentin (Neurontin) capsule 300 mg 300 mg Oral BID HYDROmorphone 1 mg/mL METAL SPRAY OPERATOR (naive protocol) no dose Intravenous Continuous HYDROmorphone 1 mg/mL clinician bolus dose 0.2-0.8 mg 0.2-0.8 mg Intravenous q15 min PRN for severepain lidocaine (Lidoderm) 5 % patch 1 patch 1 patch Apply externally q24h methocarbamol (Robaxin) tablet 500 mg 500 mg Oral 4x daily naloxone (Narcan) 2 mg in sodium chloride 0.9 % 100 mL (0.02 mg/mL) infusion (Urinary Retention or Pruritus) 0.25-1 mcg/kg/hr Intravenous Titrated PRN for urinary retention, itching Rate: 1.34-5.35 mL/hr naloxone (Narcan) injection 0.08 mg 0.08 mg Intravenous q1 min PRN for respiratory depression, for respiratory rate < 10 Future Medications Medication Name Dose Route Frequency IV METAL SPRAY OPERATOR hydromorphone 1mg/ml 0.2mg q6min - CABG. Takes tramadol and gabapentin at home Blood pressure (!) 158/83, pulse 90, temperature (!) 38.4 ??C (101.1 ??F), temperature source Bladder, resp. rate 20, height 1.829 m (6'), weight 103 kg (227 lb 15.3 oz), SpO2 93%. Please Contact Acute Pain Service with any additional questions or concerns via [email or web address] [email or web address]. * Consults - Katie Rodrigez RN - 03/23/2025 9:17 PM EDT Acute Pain Service Follow-Up Evaluation Lizandro Gr is a 45 y.o. male Follow-Up: Follow-up reason: APS rounds Location: chest Pain Rating (0-10): 7/8 with deep breathing Comfort/ Acceptable Pain Level: 7 Acute Pain Service Comments: Pain Service comments: Will continue Patient Controlled Analgesia infusion until primary service decides it is appropriate to discontinue. Patient received 49 doses in 11.5 hours with Patient Controlled Analgesia infusion for 9.6 mg. Patient reports that pain is much improved with METAL SPRAY OPERATOR. Encouraged patient to push METAL SPRAY OPERATOR button more frequently for better pain control to make coughing and deep breathing easier. Epidural Site: n/a Follow-Up: Follow-Up: Acute Pain Service will continue to follow and adjust as needed. Visit Type: Routine Current Analgesic Treatments: Inpatient Analgesics Active Medications Medication Name Dose Route Frequency acetaminophen (Tylenol) tablet 650 mg 650 mg Oral q6h VIOLETTE gabapentin (Neurontin) capsule 300 mg 300 mg Oral BID HYDROmorphone 1 mg/mL METAL SPRAY OPERATOR (naive protocol) no dose Intravenous Continuous HYDROmorphone 1 mg/mL clinician bolus dose 0.2-0.8 mg 0.2-0.8 mg Intravenous q15 min PRN for severepain lidocaine (Lidoderm) 5 % patch 1 patch 1 patch Apply externally q24h methocarbamol (Robaxin) tablet 500 mg 500 mg Oral 4x daily naloxone (Narcan) 2 mg in sodium chloride 0.9 % 100 mL (0.02 mg/mL) infusion (Urinary Retention or Pruritus) 0.25-1 mcg/kg/hr Intravenous Titrated PRN for urinary retention, itching Rate: 1.34-5.35 mL/hr naloxone (Narcan) injection 0.08 mg 0.08 mg Intravenous q1 min PRN for respiratory depression, for respiratory rate < 10 IV METAL SPRAY OPERATOR hydromorphone 1mg/ml 0.2mg q6min - CABG. Takes tramadol and gabapentin at home Blood pressure (!) 158/83, pulse 83, temperature 37.6 ??C (99.7 ??F), temperature source Bladder, resp. rate 12, height 1.829 m (6'), weight 107 kg (236 lb 8.9 oz), SpO2 95%. Please Contact Acute Pain Service with any additional questions or concerns via [employer] [email or web address]. * Consults - Matilde Leon RD - 03/23/2025 3:03 PM EDTAssociated Order(s): IP CONSULT TO NUTRITION SERVICES Adult Nutrition Evaluation Note Lizandro Gr 45 y.o. male CSN: [id number] Room/Bed 213/213A Nutrition evaluation type: assessment Reason for evaluation: provider consult Hospital course: 45 yo male S/P CABG on 03/22. Clear Liquid diet initiated. Past medical/ surgical history: has a past medical history of CAD, multiple vessel (03/22/2025), Chronic kidney disease, Coronary artery disease, GERD (gastroesophageal reflux disease), Hyperlipidemia, Hypertension, and Type 2 diabetes mellitus. Social history: Additional comments: 03/23: Pt asleep at time of visit. RN reports pt wants to continue with CLD for now. Discussed on CCM team rounds. Vitals and Basic Assessment: BP: (!) 158/83 Temp: 37.3 ??C (99.1 ??F) Invasive Ventilator Initiated (ETT/Trach Only): Yes Oxygen Therapy: Supplemental oxygen O2 Delivery Method: Nasal cannula Darrell Coma Scale Score: 15 Gato Scale Score: 22 Christofer/Cubbin Pressure Risk Score: 40 Allergies: NKA Medications: Current Scheduled Medications[1] Current Continuous Medications[2] Current PRN Medications[3] Meds were reviewed: Yes Labs: Labs in last 18 hours CBC WBC 11.73 (H) Hb 10.1 (L) Plt 138 (L) Hct 29.6 (L); 29.6 (L) ANC ?? INR ??, PTT ??, Anti-Xa ?? BMP Na 140 Cl 109 (H) BUN 18 Glu 159 (H) K 4.2; 4.2 Co2 22 Cr 1.09 Ca 8.4 (L) iCa 4.4 (L) Mg 2.2, Phos 3.7 Lactate 1.9 (H) LFT AST ?? AlkPhos ?? T Prot ?? ALK ?? Bili ?? Alb ?? D.Bili ?? HgA1C 7.2 (02/17) Anthropometrics: Height: 182.9 cm (6') Weight: 107 kg (236 lb 8.9 oz) BMI (Calculated): 32.08 Weight Evaluation: Obese-Class 1 (BMI 30-34.9) Morrill Body Weight (kg): 80.9 Percent Morrill Body Weight: 130 Adjusted Body Weight (kg): 86.9 Estimated Needs: Kcal/ K-25 Kcal Provided: [id number] Metabolic Cart Study Results: Current Nutrition Intake: Diet Order: Adult Diet Diet Texture: Clear liquid Percent Meals Eaten (%): establishing Diet Experience and Nutrition History: Diet Education Provided: Will monitor Pertinent home medications: Jainism needs: Nutrition Focused Physical Exam: Unable to Complete Exam: Patient unable to participate Physical exam performed on (date): Assessment of Malnutrition: Nutrition Problem: Increased nutrient needs prot related to post-op recovery as evidenced by indication for surgical ONS. Status of Nutrition Diagnosis: New Nutrition Interventions and Recommendations: - CC2, Cardiac diet as tolerated. - Adding Impact AR BID for post-op nutritional supplement, to start once diet advances past Clear Liquids. Nutrition Monitoring and Goals: - intake >/= 75% meals - Impact AR BID x 5 days Acuity Level: [address] [1] acetaminophen, 650 mg, Oral, q6h VIOLETTE allopurinol, 300 mg, Oral, Daily aspirin, 81 mg, Oral, Daily atorvastatin, 80 mg, Oral, Nightly colchicine, 0.6 mg, Oral, BID docusate sodium, 100 mg, Oral, BID fenofibrate, 145 mg, Oral, Daily gabapentin, 300 mg, Oral, BID heparin (porcine), 5,000 Units, Subcutaneous, q8h VIOLETTE insulin regular, 1-10 Units, Intravenous, Once lidocaine, 1 patch, Apply externally, q24h methocarbamol, 500 mg, Oral, 4x daily metoprolol tartrate, 12.5 mg, Oral, BID mupirocin, 1 Application, Each Nostril, BID pantoprazole, 40 mg, Oral, Daily polyethylene glycol, 17 g, Oral, BID senna, 17.2 mg, Oral, BID sodium chloride, 10 mL, Intravenous, q12h [2] HYDROmorphone HCl, insulin regular infusion - for hyperglycemia - standard protocol, 0.5-30 Units/hr, Last Rate: 2.25 Units/hr (03/23/25 1400) naloxone, 0.25-1 mcg/kg/hr naloxone, 0.08 mg sodium chloride, 5 mL/hr, Last Rate: 5 mL/hr (03/23/25 1009) [3] PRN medications: albumin human, glucose OR dextrose OR glucagon (human recombinant), HYDROmorphone HCl AND HYDROmorphone, insulin regular, ipratropium-albuterol, naloxone, naloxone, ondansetron, sodium chloride, sodium chloride * Progress Notes - Kay Cordoba - 03/23/2025 1:52 PM EDT Physical Therapy Evaluation Patient Name: Lizandro Gr Today's Date: 03/23/2025 PT Discharge Recommendations: Home with assistance Equipment Recommended: Rollator History Lizandro Gr is 45 y.o. male admitted 03/22/2025 for work-up of CAD (coronary artery disease). Problem List Active Hospital Problems Diagnosis Date Noted S/P CABG x 4 03/22/2025 On mechanically assisted ventilation ([facility]) 03/22/2025 Electrolyte abnormality 03/22/2025 GERD (gastroesophageal reflux disease) 03/22/2025 Anemia 03/22/2025 Poorly 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 ([facility]) 03/22/2025 Atrial fibrillation ([facility]) 03/22/2025 Postoperative pain 03/22/2025 CAD (coronary artery disease) 02/17/2025 HLD (hyperlipidemia) 02/17/2025 Hypertension 01/14/2022 CKD (chronic kidney disease) stage 2, GFR 60-89 ml/min 01/14/2022 Procedures 03/22/2025 Procedure(s): CABG, 2 OR MORE VESSELS Past Medical History Patient has a past medical history of CAD, multiple vessel (03/22/2025), Chronic kidney disease, Coronary artery disease, GERD (gastroesophageal reflux disease), Hyperlipidemia, Hypertension, and Type 2 diabetes mellitus. Past Surgical History Patient has a past surgical history that includes Cardiac catheterization (02/16/2025). Precautions Medical Precautions: Sternal Subjective Pt agreeable to session. Participants in Care Family/Caregiver Present: Yes Family/Caregiver: Adult Daughter, Spouse Presentation Oxygen Therapy: Supplemental oxygen O2 Delivery Method: Nasal cannula O2 Flow Rate (L/min): 4 L/min Lines and Tubes: Telemetry Arterial Line 03/22/25 Right Radial (Active) CVC Double Lumen 03/22/25 (Active) Chest Tube Mediastinal 36 Fr (Active) Closed/Suction Drain Inferior;Proximal;Right Leg Bulb 19 Fr. (Active) Urethral Catheter Non-latex;Temperature probe 16 Fr. (Active) Y Chest Tube 1 and 2 Right Pleural 24 Fr. Left Pleural 28 Fr. (Active) Pulmonary Artery Catheter 03/22/25 Internal jugular Right (Active) Peripheral IV 03/22/25 Posterior;Right Wrist (Active) Pre-Session: Sitting in chair, Lines intact Pre-Session Comments: RN agreeable to session Post-Session: RN notified, Sitting in chair, Lines intact, Call light in reach Post-Session Comments: No alarm per RN. All needs met Home Living/Set-up Lives With: Adult, Daughter Home Type: House Home Adaptive Equipment: None Home Layout: One level (Level entry) Home Living Comments: Will have assistance as needed from daughter upon discharge. Prior Level of Function Receives Help From: No assist required prior to admission Level of Mobility: Ambulatory- community Mobility Somes Bar: Independent gait without device History of Falls: No ADL Performance: Independent Patient/Family Goals to feel better Objective Pain Pt had complaints of 8/10 incisional pain. Delirium Screening Murillo Agitation Sedation Scale (RASS): Alert and calm Confusion Assessment Method-ICU (CAM-ICU/PCAM-ICU) Feature 3: Altered Level of Consciousness: Negative Cognition Overall Cognitive Status: Within Functional Limits Arousal/Alertness: Appropriate responses to stimuli Mood/Behavior: Alert Orientation Level: Oriented X4 Single Step Commands: Consistently Multi-Step Commands: Consistently Method of Communication: Verbal Right Upper Extremity Examination RUE Assessment: Within Functional Limits Manual Muscle Testing - RUE: (N/T secondary to sternal precautions) Sensation Light Touch: Right Upper Extremity: Intact Left Upper Extremity Examination LUE ROM Assessment LUE Assessment: Within Functional Limits Manual Muscle Testing - LUE Manual Muscle Testing - LUE: (N/T secondary to sternal precautions) Sensation Light Touch: Left Upper Extremity: Intact Right Lower Extremity Examination RLE ROM Assessment RLE Assessment: Within Functional Limits Manual Muscle Testing - RLE Manual Muscle Testing - RLE: Within functional limits Sensation Light Touch: Right Lower Extremity: Intact Left Lower Extremity Examination LLE Assessment: Within Functional Limits Manual Muscle Testing: Within functional limits Sensation Light Touch: Left Lower Extremity: Intact Transfers Transfer Exam: Sit to stand Level of Somes Bar: Moderate assist (50% patient's effort) Physical/Nonphysical Assist: Verbal Cues, Maximal cues, Additional assist utilized for safety Assistive Device: Rollator Transfer Exam: Stand to Sit Level of Somes Bar: Moderate assist (50% patient's effort) Physical/Nonphysical Assist: Verbal Cues, Maximal cues, Additional assist utilized for safety Assistive Device: Rollator Ambulation Device: Rollator Apparatus: Chair follow Assistance: Contact guard assist Distance : 200' Ambulation Comments: Pt ambulated 200' by CGA x1 and use of rollator. Pt demonstrated forward flexed posture, decreased step length/collin, and hinderance of performance due to pain Balance Postural Appearance Posture: Stooped posture, Rounded shoulders Static Sitting Balance Static Sitting-Balance Support: Feet supported Static Sitting-Level of Assistance: Standby assist Dynamic Sitting Balance Dynamic Sitting-Balance Support: Feet supported Level of Assistance: Standby assisst Static Standing Balance Static Standing-Balance Support: Right upper extremity support, Left upper extremity support Static Standing-Level of Assistance: Contact guard Dynamic Standing Balance Dynamic Standing-Balance Support: Right upper extremity support, Left upper extremity support Dynamic Standing Level of Assistance: Contact guard Therapeutic Activity (11 minutes) Pt in recliner upon arrival. Prior to initiating STS, pt required significant verbal/tactile cues for forward lean and proper foot placement for efficiency of movement. Pt required moderate physical assistance during STS encouraging a more controlled descent into recliner. Prior to ambulation, pt administered pain relief via METAL SPRAY OPERATOR pump. Pt then ambulated into hallway and required verbal cueing for upright posture, pacing, and proximity to AD. Pt did not require any rest breaks throughout mobility. Pt positioned for comfort at end of session. Standardized Assessments [facility] 6-Clicks Mobility Assessment Difficulty patient has turning over in bed (including adjusting bedclothes, sheets, and blankets)?:A little Difficulty patient has sitting down on and standing up from a chair with arms (wheelchair, bedside commode, etc.)?: A lot Difficulty patient has moving from lying on back to sitting on the side of the bed?: A lot How much help does the patient need moving to and from a bed to a chair (including a wheelchair)?: A little How much help does the patient need to walk in hospital room?: A little How much help does the patient need climbing 3-5 steps with a railing?: A lot [facility] 6-Clicks Mobility Assessment Total : 15 No data recorded Assessment Pt tolerated PT interventions with no adverse effects and maintained vital signs WNL. Pt presents with impairments listed below and would benefit from continued skilled PT intervention to progress functional mobility and return to prior level of function. Impairments: Decreased endurance, ventilation, and/or gas exchange, Impaired gait dynamics/performance, Decreased strength, Pain, Impaired functional mobility/transfers, Impaired balance Activity Limitations: Inability to sit independently, Inability to ambulate community distances, Inability to complete ADLs independently, Inability to ambulate independently, Inability to transfer independently Participation Restrictions: Self-care, Home management, Community leisure Activity Tolerance: Tolerates 10 - 20 min activity with multiple rests Evaluation/Treatment Tolerance: Patient limited by fatigue, Patient limited by pain Diagnosis: impaired functional mobility/activity tolerance Rehab Potential: Good, to achieve stated therapy goals Barriers to Discharge: Comorbidities Eval Complexity History Profile: 1 - 2 personal factors and/or comorbidities Clinical Presentation: Evolving clinical presentation with changing characteristics Clinical Decision Making: Moderate complexity PT Recommendations Discharge Destination: Home with assistance Discharge Equipment: Rollator Plan Planned PT Interventions Balance training, Bed mobility training, Gait training, Transfer training, Strengthening, Functional Mobility PT Frequency 2 - 5 times per week PT Duration 2 weeks Goals PT GOAL DETAILS Time Frame PT Goal 1: Pt will demonstrate compliance with HEP and discharge recommendations 2 weeks PT Goal 2: Pt will complete STS and bed to chair transfer by SBA x1 and use of LRAD 2 weeks PT Goal 3: Pt will ambulate 600' by SBA x1 and use of LRAD 2 weeks Written by Kay Cordoba on 03/23/25 at 2:01 PM. Cosigned by Cici March at 03/23/2025 2:45 PM EDT Associated attestation - Cici March - 03/23/2025 2:45 PM EDT As the supervising therapist, I was present during the entire PT evaluation/treatment and have reviewed and agree with this document written by the student physical therapist for this patient on thisdate/time. Cici March PT, DPT * Progress Notes - Viri Escalona - 03/23/2025 1:51 PM EDT Occupational Therapy Evaluation Patient Name: Lizandro Gr Today's Date: 03/23/2025 OT Discharge Recommendations: Home with assistance Equipment Recommended: Rollator History Lizandro Gr is 45 y.o. male admitted 03/22/2025 for work-up of CAD (coronary artery disease). Problem List Active Hospital Problems Diagnosis Date Noted S/P CABG x 4 03/22/2025 On mechanically assisted ventilation ([facility]) 03/22/2025 Electrolyte abnormality 03/22/2025 GERD (gastroesophageal reflux disease) 03/22/2025 Anemia 03/22/2025 Poorly 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 [place] 03/22/2025 [place]rial fibrillation [place] 03/22/2025 Postoperative pain 03/22/2025 CAD (coronary artery disease) 02/17/2025 HLD (hyperlipidemia) 02/17/2025 Hypertension 01/14/2022 CKD (chronic kidney disease) stage 2, GFR 60-89 ml/min 01/14/2022 Procedures 03/22/2025 Procedure(s): CABG, 2 OR MORE VESSELS Past Medical History Patient has a past medical history of CAD, multiple vessel (03/22/2025), Chronic kidney disease, Coronary artery disease, GERD (gastroesophageal reflux disease), Hyperlipidemia, Hypertension, and Type 2 diabetes mellitus. Past Surgical History Patient has a past surgical history that includes Cardiac catheterization (02/16/2025). Precautions Medical Precautions: Sternal Subjective I was doing okay but I fell asleep and got behind on my pain medicine. Participants in Care Family/Caregiver Present: Yes Family/Caregiver: Adult Daughter Presentation Oxygen Therapy: Supplemental oxygen O2 Delivery Method: Nasal cannula O2 Flow Rate (L/min): 4 L/min Lines and Tubes: Telemetry Arterial Line 03/22/25 Right Radial (Active) CVC Double Lumen 03/22/25 (Active) Chest Tube Mediastinal 36 Fr (Active) Closed/Suction Drain Inferior;Proximal;Right Leg Bulb 19 Fr. (Active) Urethral Catheter Non-latex;Temperature probe 16 Fr. (Active) Y Chest Tube 1 and 2 Right Pleural 24 Fr. Left Pleural 28 Fr. (Active) Pulmonary Artery Catheter 03/22/25 Internal jugular Right (Active) Peripheral IV 03/22/25 Posterior;Right Wrist (Active) Pre-Session: Sitting in chair, Lines intact Post-Session: RN notified, Sitting in chair, Lines intact, Call light in reach Post-Session Comments: No alarm per RN Home Living/Set-up Lives With: Adult, Daughter Home Type: House Home Adaptive Equipment: None Home Layout: One level (Level entry) Home Living Comments: Will have assistance as needed from daughter upon discharge. Prior Level of Function Receives Help From: No assist required prior to admission Level of Mobility: Ambulatory- community Mobility Somes Bar: Independent gait without device History of Falls: No ADL Performance: Independent Patient/Family Goals Statement To get better and go home. Objective Pain 8/10 sternal pain RN aware, pillow support provided and METAL SPRAY OPERATOR used throughout. Delirium Screening Murillo Agitation Sedation Scale (RASS): Alert and calm Confusion Assessment Method-ICU (CAM-ICU/PCAM-ICU) Feature 3: Altered Level of Consciousness: Negative Cognition Overall Cognitive Status: Within Functional Limits Arousal/Alertness: Appropriate responses to stimuli Mood/Behavior: Alert Orientation Level: Oriented X4 Single Step Commands: Consistently Multi-Step Commands: Consistently Method of Communication: Verbal Right Upper Extremity Examination RUE ROM Assessment RUE Assessment: Within Functional Limits Manual Muscle Testing - RUE: (N/T secondary to sternal precautions) Sensation Light Touch: Right Upper Extremity: Intact Left Upper Extremity Examination LUE ROM Assessment LUE Assessment: Within Functional Limits Manual Muscle Testing - LUE: (N/T secondary to sternal precautions) Sensation Light Touch: Left Upper Extremity: Intact Right Lower Extremity Examination RLE ROM Assessment RLE Assessment: Within Functional Limits Manual Muscle Testing - RLE: Within functional limits Sensation Light Touch: Right Lower Extremity: Intact Left Lower Extremity Examination LLE ROM Assessment LLE Assessment: Within Functional Limits Manual Muscle Testing: Within functional limits Sensation Light Touch: Left Lower Extremity: Intact Bed Mobility Bed Mobility Exam: Supine to Sit Level of Somes Bar: (Not observed- found and left up in recliner) Transfers Transfer Exam: Sit to stand Level of Somes Bar: Moderate assist (50% patient's effort) Physical/Nonphysical Assist: Verbal Cues, Maximal cues, Additional assist utilized for safety Assistive Device: Rollator Transfer Exam: Stand to Sit Level of Somes Bar: Moderate assist (50% patient's effort) Physical/Nonphysical Assist: Verbal Cues, Maximal cues, Additional assist utilized for safety Assistive Device: Rollator Balance Postural Appearance Posture: Stooped posture, Rounded shoulders Static Sitting Balance Static Sitting-Balance Support: Feet supported Static Sitting-Level of Assistance: Standby assist Dynamic Sitting Balance Dynamic Sitting-Balance Support: Feet supported Level of Assistance: Standby assisst Static Standing Balance Static Standing-Balance Support: Right upper extremity support, Left upper extremity support Static Standing-Level of Assistance: Contact guard Dynamic Standing Balance Dynamic Standing-Balance Support: Right upper extremity support, Left upper extremity support Dynamic Standing Level of Assistance: Contact guard Self-Care Interventions Self Care/Home Management (ADLs) Time Entry: 11 Self-Care Interventions: Pt educated on sternal precautions prior to mobility and importance of carryover. Pt verbalized understanding but demonstrated fair(- ) carryover. Pt. participated in functional endurance tasks in preparation for high level ADL routines. Pt. completed 200ft navigation task at hallway level to simulate ADL's in home environment with CGA and rollator. Pt. tolerated task wellwith no safety concerns noted and no rest break required. Cues also provided throughout session to promote upright posture, activity pacing, and pursed lip breathing with improved carryover noted with session progression. OT monitored vital signs closely throughout session to assess for patient???stolerance to treatment. O2 briefly dropped to 84% upon return to room when patient appeared to be sleeping, RN present and O2 increased with cues for PLB after several minutes. Additional time spent educating patient/family on ADLs with sternal precautions and potential needs for AE/DME at discharge. Pt educated on role of OT, discharge recommendations, and expectations for mobility while inpatient. Pt verbalized understanding but would benefit from continued education to improve carryover. Standardized Assessments [facility] 6-Click Daily Activities Help from Other: Don/Doff Regular Lower Body Clothings: A lot Help From Other: Bathing: A lot Help From Other: Toileting: A lot Help From Other: Don/Doff Upper Body Clothings: Little Help From Other: Grooming: Little Help From Other: Eating Meals: None [facility] 6 Click - Daily Activities Score: 16 Assessment In addition to OT evaluation, pt participated in OT session with a focus on ADL retraining and functional endurance. Pt tolerated session with fair energy for task. Pt is most limited by endurance and pain. Pt would benefit from continued skilled OT services to address AE/DME training, activity tolerance, and overall muscle power needed for increased independence with ADLs and functional mobility. OT Findings: Impaired ADL performance, Impaired IADL performance, Decreased endurance/ventilation/gas exchange, Impaired functional mobility, Impaired balance Evaluation/Treatment Tolerance: Patient limited by fatigue, Patient limited by pain Rehab Potential: Good, to achieve stated therapy goals Eval Complexity Occupational Profile: Expanded review of medical/therapy records and additional review of physical,cognitive, or psychosocial history Performance Deficits: Activities of daily living (ADLs), Instrumental activities of daily living (IADLs), Body structures, Body functions, Physical, Personal Clinical Decision Making: Moderate Overall Eval complexity: Moderate OT Recommendations Discharge Destination: Home with assistance Discharge Equipment: Rollator Plan Planned OT Interventions ADL retraining, IADL retraining, Balance training, Bed mobility Training, Transfer training, Functional mobility, Caregiver education OT Frequency 2 - 5 times per week OT Duration 2 weeks Goals OT GOAL DETAILS Time Frame OT Goal 1: Pt will complete total body dressing skills with modified independence and appropriate adaptive device. 2 weeks OT Goal 2: Pt will complete toileting skills with modified independence and appropriate adaptive device. 2 weeks OT Goal 3: Pt will complete functional transfers with modified independence and appropriate adaptive device to increase independence with toilet transfers. 2 weeks OT Goal 4: Pt will independently adhere to sternal precautions during all ADL tasks and functional transfers. 2 weeks Written by Viri Escalona on 03/23/25 at 2:32 PM. * Progress Notes - Meera Ibarra RN - 03/23/2025 1:22 PM EDT Case Management Adult Initial Progress Note Lizandro Gr 45 y.o. male CSN: [id number] Admission: 03/22/2025 5:35 AM Primary Problem: CAD (coronary artery disease) Power Saw Mechanic reviewed chart and spoke with the patient at bedside to complete this Initial Case Management Assessment. PCP: David Iverson MD Emergency Contact: Extended Emergency Contact Information Primary Emergency Contact: Alissa Gr Mobile Relation: Daughter Preferred language: Yakut Accounts Payable Or Receivable Clerk needed? No Secondary Emergency Contact: VALENTINO MENESES Mobile Relation: Significant Other Preferred language: Yakut Accounts Payable Or Receivable Clerk needed? No Insurance: Primary Visit Coverage Payer Plan Sponsor Code Group Number Group Name [employer] MED[employer] HU[employer]NA GOLD PLUS [id number] Primary Visit Coverage Subscriber Subscriber ID Subscriber Name Subscriber N Subscriber Address [id number] LIZANDRO GR [id number] [id number] [facility] [address] [place] [address] Patient information: Primary Caregiver: Self Accompanied by/Relationship: significant other Support System: Immediate family Daily Living Activities: Functional Status: Independent Living Arrangements: Family Type of Residence: Private residence, Single Level [address] [facility] [address] Current DME: Equipment Currently Used at Home: none Income Information: Income Source: Disabled Income/Expense Information: Income meets expenses Current Resources Utilized: None Housing Circumstances-Z Codes: Housing Circumstances (select all that apply): None Applicable Patient Referred to: Financial Resources: Other (Comment) (n/a) Anticipated Discharge Date: tbd Patient's Discharge Goal: Patient/Family Anticipates Transition to: home Assistance Available at Discharge: Availability of Care Givers (#Hours): No assistance needed Discharge Transport: Transportation Anticipated: family or friend will provide Follow Up Transport: Transportation Needed to Follow up Appoinments: Family/Friend will Provide Home Health / Home Infusion / Outpatient Dialysis Services: n/a Living Will/Advance Directive/Power of Consulting Senior Practice Director /Guardian: Unable to assess: No Have you reviewed your Advance Directive and is it valid for this stay?: No Advance Directive: Patient does not have advance directive Information Provided on Healthcare Directives: No Pre-existing DNR/DNI Order: No Patient Requests Assistance: No Additional Comments:LISSY SILVESTRE met with patient and significant other at bedside for initial eval. Confirmed address: on file. Lives with significant other and daughter in a single level home with no steps to enter. Patient states he was independent prior to admit. Denies prior DME/HH/O2/HD/Abx. PCP is David Anglin. Has [employer] Medicare insurance and uses [facility] in [place]. Significant other to transport and assist as needed at discharge. No current SW/CM needs identified. Will continue to follow and assist. Meera Ibarra RN * Care Plan - Jose Alberto Collins RN - 03/23/2025 12:52 PM EDT Problem: Adult Inpatient Plan of Care Goal: Optimal Comfort and Wellbeing Outcome: Ongoing, Progressing * Assessment & Plan Note - Krunal Galdamez MD - 03/23/2025 12:45 PM EDT Associated Problem(s): CAD (coronary artery disease) - s/p 4vCABG on 03/[address] Rosado * Assessment & Plan Note - Krunal Galdamez MD - 03/23/2025 12:45 PM EDT Associated Problem(s): S/P CABG x 4 - ASA, statin, beta daniel - Monitor chest tube output * Assessment & Plan Note - Krunal Galdamez MD - 03/23/2025 12:45 PM EDT Associated Problem(s): On mechanically assisted ventilation (CMS/HCC) (Resolved 03/24/2025) - Wean to extubate, fast track * Assessment & Plan Note - Krunal Galdamez MD - 03/23/2025 12:45 PM EDT Associated Problem(s): Electrolyte abnormality (Deleted) - Monitor and replace per protocol * Assessment & Plan Note - Krunal Galdamez MD - 03/23/2025 12:45 PM EDT Associated Problem(s): GERD (gastroesophageal reflux disease) - PPI * Assessment & Plan Note - Krunal Galdamez MD - 03/23/2025 12:45 PM EDT Associated Problem(s): Hypertension - SBP goal < 140 - Restart home meds as able * Assessment & Plan Note - Krunal Galdamez MD - 03/23/2025 12:45 PM EDT Associated Problem(s): HLD (hyperlipidemia) - Statin * Assessment & Plan Note - Krunal Galdamez MD - 03/23/2025 12:45 PM EDT Associated Problem(s): 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) - Continue Insulin gtt until eating more, will likely need basal-bolus regimen - will consider endo consult if glycemic control is difficult - On tramadol and gabapentin at home for neuropathy - will restart gabapentin after extubated Hemoglobin A1c Date Value Ref Range Status 02/17/2025 7.2 (H) <5.7 % Final * Assessment & Plan Note - Krunal Galdamez MD - 03/23/2025 12:45 PM EDT Associated Problem(s): Atrial fibrillation (CMS/HCC) (Deleted) - In sinus rhythm on arrival to CVICU - On Xarelto at home - Will continue to monitor * Assessment & Plan Note - Krunal Galdamez MD - 03/23/2025 12:45 PM EDT Associated Problem(s): CKD (chronic kidney disease) stage 2, GFR 60-89 ml/min (Resolved 03/25/2025) - Monitor per protocol. Creatinine, Plasma Date Value Ref Range Status 03/23/2025 1.09 0.70 - 1.20 mg/dL Final 03/22/2025 1.19 0.70 - 1.20 mg/dL Final 03/22/2025 1.29 (H) 0.70 - 1.20 mg/dL Final * Assessment & Plan Note - Krunal Galdamez MD - 03/23/2025 12:45 PM EDT Associated Problem(s): Postoperative pain - Multimodal pain control - Pain Team consulted for IV METAL SPRAY OPERATOR - Restart home gabapentin when appropriate * Progress Notes - Krunal Galdamez MD - 03/23/2025 12:34 PM EDTAssociated Order(s): Critical Care Post-Procedure Diagnose(s): CAD, multiple vessel Critical Care Performed by: Krunal Galdamez MD Authorized by: Krunal Galdamez MD Critical care provider statement: Critical care time (minutes): 38 Critical care time was exclusive of: Separately billable procedures and treating other patients andteaching time Critical care was time spent personally by me on the following activities: Development of treatmentplan with patient or surrogate, ordering and performing treatments and interventions, discussions with consultants, ordering and review of laboratory studies, discussions with primary provider, ordering and review of radiographic studies, evaluation of patient's response to treatment and examination of patient Critical care statement: I saw and evaluated the patient with the resident/ fellow. I discussed thecase with the resident/ fellow and agree with the findings and plan as documented. 03/23/25 Lizandro Gr HPI Lizandro Gr is a 45 y.o. male who presents with CAD (coronary artery disease). If applicable, patient is s/p Procedure(s) and Anesthesia Type: * CABG, 2 OR MORE VESSELS - General. Patient is 1 Day Post-Op with Cardiothoracic Surgery. Past 24 hours: PM: Extubated to 4LNC. MMPC. Oxy for breakthrough pain. ECG findings consistent with pericarditis. Colchicine ordered. AM: Desat when moved to chair but quickly put back to NC. On chronic pain meds at home, still reporting significant pain, will consult APS for assistance, planning on IVPCA. Continue insulin drip until eating more, likely will need basal/bolus regimen. Starting DVT ppx. Will start metoprolol 12.5 BID if pressure holds steady in afternoon. D/c Yrn. Edited by: Shivani aTn MD at 03/23/2025 1237 Lines/Drains/Tubes: Patient Lines/Drains/Airways Status Active Active LDAs Name Placement date Placement time Site Days CVC Double Lumen 03/22/25 03/22/25 0856 -- 1 Peripheral IV 03/22/25 Posterior;Right Wrist 03/22/25 0635 Wrist 1 Chest Tube Mediastinal 36 Fr 03/22/25 1422 Mediastinal less than 1 Closed/Suction Drain Inferior;Proximal;Right Leg Bulb 19 Fr. 03/22/25 1120 Leg 1 Urethral Catheter Non-latex;Temperature probe 16 Fr. 03/22/25 0805 -- 1 Y Chest Tube 1 and 2 Right Pleural 24 Fr. Left Pleural 28 Fr. 03/22/25 1422 -- less than 1 Arterial Line 03/22/25 Right Radial 03/22/25 0847 Radial 1 Pulmonary Artery Catheter 03/22/25 Internal jugular Right 03/22/25 0856 Internal jugular 1 GCS: Darrell Coma Scale Score: 15 Review of Systems 14 point ROS reviewed and otherwise negative or unobtainable except as noted above or in HPI. Vital signs: Vitals: 03/23/25 1200 BP: Pulse: 73 Resp: (!) 29 Temp: SpO2: 94% Intake/Output Summary (Last 24 hours) at 03/23/2025 1241 Last data filed at 03/23/2025 1205 Gross per 24 hour Intake 2322.49 ml Output 2272 ml Net 50.49 ml Physical Exam: Sedation was held for the purposes of examination. Physical Exam Vitals reviewed. Constitutional: General: He is not in acute distress. HENT: Head: Normocephalic and atraumatic. Mouth/Throat: Mouth: Mucous membranes are dry. Pharynx: Oropharynx is clear. Eyes: General: Vision grossly intact. Extraocular Movements: Extraocular movements intact. Pupils: Pupils are equal, round, and reactive to light. Neck: Comments: [facility] CV Cardiovascular: Pulses: Normal pulses. Heart sounds: Normal heart sounds. Comments: Sternotomy with incisional wound vac, chest tubes in place. Pulmonary: Effort: Pulmonary effort is normal. Breath sounds: Normal breath sounds and air entry. Comments: No unanticipated findings. Abdominal: General: Bowel sounds are normal. Palpations: Abdomen is soft. There is no mass. Musculoskeletal: General: No deformity. Normal range of motion. Cervical back: Normal range of motion. No rigidity. Right lower leg: Edema present. Left lower leg: Edema present. Comments: RLE wrapped in erik bandage, RONNY drain in place Skin: General: Skin is warm and dry. Neurological: General: No focal deficit present. Mental Status: He is alert and easily aroused. Mental status is at baseline. Psychiatric: Behavior: Behavior is cooperative. Results Review {Vanishing Link Review Results :[id number] I have reviewed the latest lab and imaging results. Assessment and Plan: This patient is critically ill. Assessment & Plan CAD (coronary artery disease) Present on Admission: Unknown - s/p 4vCABG on 03/[address] Rosado S/P CABG x 4 Present on Admission: Not Applicable - ASA, statin, beta daniel - Monitor chest tube output On mechanically assisted ventilation (CMS/HCC) Present on Admission: Not Applicable - Wean to extubate, fast track Electrolyte abnormality Present on Admission: Unknown - Monitor and replace per protocol GERD (gastroesophageal reflux disease) Present on Admission: Unknown - PPI Hypertension Present on Admission: Yes - SBP goal < 140 - Restart home meds as able HLD (hyperlipidemia) Present on Admission: Yes - Statin Poorly 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 ([facility]/HCC) Present on Admission: Unknown - Continue Insulin gtt until eating more, will likely need basal-bolus regimen - will consider endo consult if glycemic control is difficult - On tramadol and gabapentin at home for neuropathy - will restart gabapentin after extubated Hemoglobin A1c Date Value Ref Range Status 02/17/2025 7.2 (H) <5.7 % Final Atrial fibrillation ([facility]/HCC) Present on Admission: Unknown - In sinus rhythm on arrival to CVICU - On Xarelto at home - Will continue to monitor CKD (chronic kidney disease) stage 2, GFR 60-89 ml/min Present on Admission: Yes - Monitor per protocol. Creatinine, Plasma Date Value Ref Range Status 03/23/2025 1.09 0.70 - 1.20 mg/dL Final 03/22/2025 1.19 0.70 - 1.20 mg/dL Final 03/22/2025 1.29 (H) 0.70 - 1.20 mg/dL Final Postoperative pain Present on Admission: Unknown - Multimodal pain control - Pain Team consulted for IV METAL SPRAY OPERATOR - Restart home gabapentin when appropriate Non-Hospital Problems Microalbuminuria Type 2 diabetes mellitus with stage 2 chronic kidney disease, with long-term current use of insulin([facility]) Obesity (BMI 30-39.9) Shivani Tan MD * Consults - Segun Tam RN - 03/23/2025 12:30 PM EDT Acute Pain Service Follow-Up Evaluation Lizandro Gr is a 45 y.o. male Follow-Up: Follow-up reason: APS rounds Location: chest Pain Rating (0-10): a lot better Acute Pain Service Comments: Pain Service comments: Will continue Patient Controlled Analgesia infusion until primary service decides it is appropriate to discontinue. Patient received 13 doses in 3 hours with Patient ControlledAnalgesia infusion for 2.6mg hydromorphone. Follow-Up: Follow-Up: Acute Pain Service will continue to follow and adjust as needed. Visit Type: Routine Current Analgesic Treatments: Inpatient Analgesics Active Medications Medication Name Dose Route Frequency acetaminophen (Tylenol) tablet 650 mg 650 mg Oral q6h VIOLETTE gabapentin (Neurontin) capsule 300 mg 300 mg Oral BID HYDROmorphone 1 mg/mL METAL SPRAY OPERATOR (naive protocol) no dose Intravenous Continuous HYDROmorphone 1 mg/mL clinician bolus dose 0.2-0.8 mg 0.2-0.8 mg Intravenous q15 min PRN for severepain lidocaine (Lidoderm) 5 % patch 1 patch 1 patch Apply externally q24h methocarbamol (Robaxin) tablet 500 mg 500 mg Oral 4x daily naloxone (Narcan) 2 mg in sodium chloride 0.9 % 100 mL (0.02 mg/mL) infusion (Urinary Retention or Pruritus) 0.25-1 mcg/kg/hr Intravenous Titrated PRN for urinary retention, itching Rate: 1.34-5.35 mL/hr naloxone (Narcan) injection 0.08 mg 0.08 mg Intravenous q1 min PRN for respiratory depression, for respiratory rate < 10 Future Medications Medication Name Dose Route Frequency IV METAL SPRAY OPERATOR hydromorphone 1mg/ml 0.2mg q6min - CABG. Takes tramadol and gabapentin at home Blood pressure (!) 158/83, pulse 71, temperature 37.3 ??C (99.1 ??F), temperature source Core, resp. rate 15, height 1.829 m (6'), weight 107 kg (236 lb 8.9 oz), SpO2 95%. Please Contact Acute Pain Service with any additional questions or concerns via [employer] orpage [phone]. * Consults - Segun Tam RN - 03/23/2025 9:05 AM EDT RN Pain Assessment Lizandro Gr is a 45 y.o. male General Information: Referring Physician/ Service: Musa Rosado MD Patient History Reviewed: Yes Medical History: Principal Problem: CAD (coronary artery disease) Active Problems: CKD (chronic kidney disease) stage 2, GFR 60-89 ml/min Hypertension HLD (hyperlipidemia) S/P CABG x 4 On mechanically assisted ventilation ([facility]) Electrolyte abnormality GERD (gastroesophageal reflux disease) Anemia Poorly 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 ([facility]) Atrial fibrillation ([facility]) Postoperative pain Pertinent Home Medications: Prior to Admission medications Medication Sig [...] mouth daily. 08/25/24 Yes Chavez Lambert MD fenofibrate (Tricor) 145 MG tablet Take 1 tablet by mouth daily. 11/29/22 Yes Chavez Lambert MD gabapentin (Neurontin) 300 MG capsule Take 1 capsule by mouth 2 times a day. Yes Chavez Lambert MD Insulin Aspart (NOVOLOG FLEXPEN SC) Inject 30 Units under the skin 3 (three) times a day before meals. Yes Chavez Lambert MD Kerendia 10 MG tablet Take by mouth daily. 04/09/23 Yes Chavez Lambert MD nebivolol (Bystolic) 10 MG tablet Take 1 tablet by mouth daily. Yes Chavez Lambert MD traMADol (Ultram) 50 MG tablet Take by mouth every 6 hours. Yes Chavez Lambert MD aspirin 81 MG EC tablet Take 1 tablet (81 mg) by mouth 1 (one) time each day. Patient not taking: No sig reported Chavez Lambert MD atorvastatin (Lipitor) 40 MG tablet Take by mouth 1 (one) time each day. Chavez Lambert MD Easy Touch Pen [place] 31G X 8 MM misc 04/18/23 Chavez Lambert MD hydroCHLOROthiazide (HYDRODiuril) 25 MG tablet Take by mouth 1 (one) time each day. Chavez Lambert MD Jardiance 25 MG Take 1 tablet by mouth daily. 04/16/23 Chavez Lambert MD Lantus SoloStar 100 UNIT/ML injection pen 04/21/23 Chavez Lambert MD lisinopril 20 MG tablet Take 1 tablet by mouth daily. 05/16/23 Chavez Lambert MD nitroglycerin (Nitrostat) 0.4 MG SL tablet DISSOLVE 1 TABLET UNDER THE TONGUE EVERY 5 MINUTES NEEDED FOR CHEST PAIN. DO NOT EXCEED A TOTAL OF 3 DOSES IN 15 MINUTES. IF NO RELIEF CALL 911. 02/23/25 Chavez Lambert MD NovoLOG FLEXPEN 100 UNIT/ML injection pen 04/18/23 Chavez Lambert MD omeprazole (PriLOSEC) [address] capsule Take by mouth 1 (one) time each day. Chavez Lambert MD sildenafil (Viagra) 100 MG tablet Take 1 tablet by mouth as needed. 03/31/23 Chavez Lambert MD Xarelto 20 MG tablet TAKE 1 TABLET BY MOUTH EVERY EVENING WITH EVENING MEAL 02/23/25 Chavez Lambert MD Current Inpatient Pain medications: Inpatient Analgesics Active Medications Medication Name Dose Route Frequency acetaminophen (Tylenol) tablet 650 mg 650 mg Oral q6h VIOLETTE gabapentin (Neurontin) capsule 300 mg 300 mg Oral BID HYDROmorphone 1 mg/mL METAL SPRAY OPERATOR (naive protocol) no dose Intravenous Continuous HYDROmorphone 1 mg/mL clinician bolus dose 0.2-0.8 mg 0.2-0.8 mg Intravenous q15 min PRN for severepain lidocaine (Lidoderm) 5 % patch 1 patch 1 patch Apply externally q24h methocarbamol (Robaxin) tablet 500 mg 500 mg Oral 4x daily naloxone (Narcan) 2 mg in sodium chloride 0.9 % 100 mL (0.02 mg/mL) infusion (Urinary Retention or Pruritus) 0.25-1 mcg/kg/hr Intravenous Titrated PRN for urinary retention, itching Rate: 1.34-5.35 mL/hr naloxone (Narcan) injection 0.08 mg 0.08 mg Intravenous q1 min PRN for respiratory depression, for respiratory rate < 10 Future Medications Medication Name Dose Route Frequency Vitals: Blood pressure (!) 158/83, pulse 73, temperature 37.3 ??C (99.1 ??F), temperature source Core, resp. rate 17, height 1.829 m (6'), weight 107 kg (236 lb 8.9 oz), SpO2 92%. Allergies: Allergies[1] Substance Use: Tobacco Use History[2] reports that he has never smoked. He has never been exposed to tobacco smoke. He has never used smokeless tobacco. Social History Substance and Sexual Activity Alcohol Use Never reports no history of alcohol use. Social History Substance and Sexual Activity Drug Use Never reports no history of drug use. Pain Assessment: Pain Rating (0-10): 10 Comfort/ acceptable pain level (0-10): 5 Location: chest region Frequency/ quality: constant and sharp Onset of pain: post op Pain related to: surgery Factors that aggravate pain: activity, breathing, ineffective pain medication (dosage/ frequency), movement, and palpation Factors that relieve pain: medications Pain Service Plan: Plan: Place on IV METAL SPRAY OPERATOR IV METAL SPRAY OPERATOR request - CABG dilaudid 1 mg/ml METAL SPRAY OPERATOR settin.2 mg q 6 minutes Basal rate: none Various methods of pain control discussed with patient and/ or family: Yes Discussed with doctor: Yes Please Contact Inpatient Pain Service with any additional questions or concerns via [email or web address] Secure Chat or page [phone]. [1] No Known Allergies [2] Social History Tobacco Use Smoking Status Never Passive exposure: Never Smokeless Tobacco Never * Consults - Loretta Horn APRN - 03/23/2025 8:37 AM EDT Pain Consult Note Reason for Consult: METAL SPRAY OPERATOR request, Postoperative Pain Control , Chronic pain condition, Acute pain condition, and Multimodal pain management Ordering Provider: Musa Rosado MD History of Present Illness Lizandro Gr is a 45 y.o. male admitted on 03/22/2025 with PMH HTN, HLD, DM2 with neuropathy,CKD3 and GERD who presented to [facility] for planned CABG. Post op he was started on the typical post-CABG pain regimen [facility] Gabap[facility], Robaxin, Lidocaine patch as well as opioids with Dilaudid and Oxycodone. These have apparently been unsuccessful in treating his pain so Inpatient Pain Service was consulted for METAL SPRAY OPERATOR. Today Mr. Gr is seen resting in chair. He notes he is in severe pain and is unable to take a deep breath due to it. He does rate his pain a 10/10 in his chest and to this point nothing has helped ease the pain. At baseline, he has chronic leg pain. Home Pain Regimen: Tramadol 50 mg PO Q6H + Gabapentin 300 mg PO BID History Medical/Surgical/Social/Family History Past Medical History[1] Surgical History[2] Social History[3] Family History[4] Medications and Allergies Allergies Patient has no known allergies. Inpatient Analgesics Active Medications Medication Name Dose Route Frequency acetaminophen (Tylenol) tablet 650 mg 650 mg Oral q6h VIOLETTE gabapentin (Neurontin) capsule 300 mg 300 mg Oral BID HYDROmorphone (Dilaudid) injection 0.25 mg 0.25 mg Intravenous q2h PRN for mild - moderate pain HYDROmorphone (Dilaudid) injection 0.5 mg 0.5 mg Intravenous q2h PRN for severe pain lidocaine (Lidoderm) 5 % patch 1 patch 1 patch Apply externally q24h methocarbamol (Robaxin) tablet 500 mg 500 mg Oral 4x daily oxyCODONE (Roxicodone) immediate release tablet 5 mg 5 mg Oral q4h PRN for moderate pain oxyCODONE (Roxicodone) immediate release tablet 10 mg 10 mg Oral q4h PRN for severe pain Review of Systems Review of Systems Cardiovascular: Post surgical chest pain Physical Exam Physical Exam Constitutional: General: He is in acute distress. Appearance: He is obese. Neck: Comments: Right IJ MAC introducer with [place] Brea in place Musculoskeletal: Comments: Decreased ROM due to pain Skin: Comments: Midline chest incision that is well approximated C/D/I Neurological: General: No focal deficit present. Mental Status: He is alert and oriented to person, place, and time. Mental status is at baseline. Psychiatric: Mood and Affect: Mood normal. Behavior: Behavior normal. Thought Content: Thought content normal. Judgment: Judgment normal. Visit Vitals BP (!) 158/83 (BP Location: Left arm, Patient Position: Sitting) Pulse 73 Temp 37.3 ??C (99.1 ??F) (Core) Ht 1.829 m (6') Wt 107 kg (236 lb 8.9 oz) SpO2 92% BMI 32.08 kg/m?? Results Review {Vanishing Link Review Results :[id number] I have reviewed the latest lab and imaging results. Assessment and Plan/Recommendations Assessment & Plan CAD (coronary artery disease) CKD (chronic kidney disease) stage 2, GFR 60-89 ml/min Hypertension HLD (hyperlipidemia) S/P CABG x 4 On mechanically assisted ventilation (CMS/HCC) Electrolyte abnormality GERD (gastroesophageal reflux disease) Anemia 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) Atrial fibrillation (CMS/HCC) Postoperative pain Multimodal pain management: non opioids, Non-pharmacologic therapies, Opioids Adjusted, Pain Treatment Preferences Discussed, and METAL SPRAY OPERATOR- Started Assessment: Mr. Gr has acute on chronic, opioid tolerant, uncontrolled somatic pain s/p CABG. Post op he was started on MMPC and PO/IV PRN opioids; however, these were unsuccessful in treating his pain so he will be initiated on a Dilaudid IV METAL SPRAY OPERATOR today. Recommendations: - Start Dilaudid IV METAL SPRAY OPERATOR @ 0.2 mg Q6M lockout - Start Dilaudid IV boluses @ 0.2 - 0.8 mg Q15M per acute pain nurses - Continue MMPC with APAP, Gabapentin, Lidocaine patch and Robaxin - Continue Senna to prevent OIC Report Sent To: Musa Rosado MD Medical Decision Making Amount and/or Complexity of Data Reviewed External Data Reviewed: notes. Details: Reviewed Notes From: - 03/[address] Marino - 03/[address] Rosado - 03/[address] Galdamez ECG/medicine tests: Details: Reviewed CBC and BMP from 03/23 to evaluate for appropriateness of current pain regimen. Discussion of management or test interpretation with external provider(s): IPS LISA discussed current pain and recommendations with primary provider for the day Dr. Tan via this note. Risk OTC drugs. Prescription drug management. Parenteral controlled substances. Drug therapy requiring intensive monitoring for toxicity. 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 [place] Young, MSN, AGACN- Department of Anesthesiology, Perioperative, Critical Care and Pain Medicine Inpatient Pain Service [1] Past Medical History: Diagnosis Date CAD, multiple vessel 03/22/2025 Chronic kidney disease Coronary artery disease GERD (gastroesophageal reflux disease) Hyperlipidemia Hypertension Type 2 diabetes mellitus [2] Past Surgical History: Procedure Laterality Date CARDIAC CATHETERIZATION 02/16/2025 [3] Social History Tobacco Use Smoking status: Never Passive exposure: Never Smokeless tobacco: Never Vaping Use Vaping status: Never Used Substance Use Topics Alcohol use: Never Drug use: Never [4] Family History Problem Relation Name Age of Onset Hypertension Mother Diabetes type II Mother Diabetes Mother Stroke Mother Cancer Father Lung cancer Father Anesthesia problems Neg Hx Malig Hyperthermia Neg Hx Cosigned by Joe Mckenna MD at 03/23/2025 2:33 PM EDT Associated attestation - Joe Mckenna MD - 03/23/2025 2:33 PM EDT Signature only. * Care Plan - Kelly Haynes RN - 03/22/2025 9:00 PM EDT Problem: Adult Inpatient Plan of Care Goal: Plan of Care Review Outcome: Ongoing, Progressing Flowsheets (Taken 03/22/20251999) Plan of Care Reviewed With: patient Goal: Patient-Specific Goal (Individualized) Outcome: Ongoing, Progressing Goal: Absence of Hospital-Acquired Illness or Injury Outcome: Ongoing, Progressing Goal: Optimal Comfort and Wellbeing Outcome: Ongoing, Progressing Goal: Readiness for Transition of Care Outcome: Ongoing, Progressing Problem: Infection Goal: Absence of Infection Signs and Symptoms Outcome: Ongoing, Progressing Problem: Cardiovascular Surgery Goal: Improved Activity Tolerance Outcome: Ongoing, Progressing Goal: Optimal Coping with Heart Surgery Outcome: Ongoing, Progressing Goal: Absence of Bleeding Outcome: Ongoing, Progressing Goal: Effective Bowel Elimination Outcome: Ongoing, Progressing Goal: Effective Cardiac Function Outcome: Ongoing, Progressing Goal: Fluid and Electrolyte Balance Outcome: Ongoing, Progressing Goal: Blood Glucose Level Within Target Range Outcome: Ongoing, Progressing Goal: Absence of Infection Signs and Symptoms Outcome: Ongoing, Progressing Goal: Anesthesia/Sedation Recovery Outcome: Ongoing, Progressing Goal: Acceptable Pain Control Outcome: Ongoing, Progressing Goal: Effective Urinary Elimination Outcome: Ongoing, Progressing Goal: Effective Oxygenation and Ventilation Outcome: Ongoing, Progressing Problem: Pain Acute Goal: Optimal Pain Control and Function Outcome: Ongoing, Progressing * Assessment & Plan Note - Krunal Galdamez MD - 03/22/2025 4:51 PM EDT Associated Problem(s): CAD (coronary artery disease) - s/p 4vCABG on 03/[address] Rosado * Assessment & Plan Note - Krunal Galdamez MD - 03/22/2025 4:51 PM EDT Associated Problem(s): S/P CABG x 4 - ASA, statin, beta daniel as able - Monitor chest tube output * Assessment & Plan Note - Krunal Galdamez MD - 03/22/2025 4:51 PM EDT Associated Problem(s): On mechanically assisted ventilation (CMS/HCC) (Resolved 03/24/2025) - Wean to extubate, fast track * Assessment & Plan Note - Krunal Galdamez MD - 03/22/2025 4:51 PM EDT Associated Problem(s): Electrolyte abnormality (Deleted) - Monitor and replace per protocol * Assessment & Plan Note - Krunal Galdamez MD - 03/22/2025 4:51 PM EDT Associated Problem(s): GERD (gastroesophageal reflux disease) - PPI * Assessment & Plan Note - Krunal Galdamez MD - 03/22/2025 4:51 PM EDT Associated Problem(s): Hypertension - SBP goal < 140 - Restart home meds as able * Assessment & Plan Note - Krunal Galdamez MD - 03/22/2025 4:51 PM EDT Associated Problem(s): HLD (hyperlipidemia) - Statin * Assessment & Plan Note - Krunal Galdamez MD - 03/22/2025 4:51 PM EDT Associated Problem(s): 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) - Continue Insulin gtt - On 30u insulin TID at home, will consider endo consult if glycemic control is difficult - On tramadol and gabapentin at home for neuropathy - will restart gabapentin after extubated Hemoglobin A1c Date Value Ref Range Status 02/17/2025 7.2 (H) <5.7 % Final * Assessment & Plan Note - Krunal Galdamez MD - 03/22/2025 4:51 PM EDT Associated Problem(s): Atrial fibrillation (CMS/HCC) (Deleted) - In sinus rhythm on arrival to CVICU - On Xarelto at home - Will continue to monitor - Anticoagulation per CVT * Assessment & Plan Note - Krunal Galdamez MD - 03/22/2025 4:51 PM EDT Associated Problem(s): CKD (chronic kidney disease) stage 2, GFR 60-89 ml/min (Resolved 03/25/2025) - Monitor per protocol. Creatinine, Plasma Date Value Ref Range Status 03/22/2025 1.29 (H) 0.70 - 1.20 mg/dL Final 03/21/2025 1.35 (H) 0.70 - 1.20 mg/dL Final 02/17/2025 1.46 (H) 0.70 - 1.20 mg/dL Final * Assessment & Plan Note - Krunal Galdamez MD - 03/22/2025 4:51 PM EDT Associated Problem(s): Postoperative pain - Multimodal pain control - Restart home gabapentin when appropriate * H&P - Krunal Galdamez MD - 03/22/2025 4:38 PM EDTAssociated Order(s): Critical Care Post-Procedure Diagnose(s): CAD, multiple vessel Critical Care Performed by: Krunal Galdamez MD Authorized by: Krunal Galdamez MD Critical care provider statement: Critical care time (minutes): 39 Critical care time was exclusive of: Separately billable procedures and treating other patients andteaching time Critical care was time spent personally by me on the following activities: Development of treatmentplan with patient or surrogate, ordering and performing treatments and interventions, discussions with consultants, ordering and review of laboratory studies, discussions with primary provider, ordering and review of radiographic studies, evaluation of patient's response to treatment, examination of patient and ventilator management Critical care statement: I saw and evaluated the patient with the resident/ fellow. I discussed thecase with the resident/ fellow and agree with the findings and plan as documented. 03/22/25 Lizandro Gr Consulted for critical care management by Cardiothoracic Surgery. HPI Lizandro Gr is a 45 y.o. male who presents with CAD (coronary artery disease) s/p Procedure(s) and Anesthesia Type: * CABG, 2 OR MORE VESSELS - General. Patient is * Day of Surgery *. Lizandro Gr is a 45yo male with PMHx of HTN, HLD, insulin-dependent DM2 (A1c 7.2), CKD 3, GERD, and mvCAD. Patient reports no symptoms of angina, but endorses poor activity tolerance and fatigue, worse over the past 6 months. He presents to today for 4vCABG with Dr. Rosado. The patient arrived to the CVICU after 4vCABG intubated. Airway was easy. The pt received 1250 mcg Fentanyl and 10 mg Versed. Intraoperatively, they received 1500 mL of crystalloid, 500 mL of albumin, 770 mL of cell saver and the following blood products: none. Patient required no pressors in the OR. Significant intra-op included: difficulty achieving adequate hemostasis, for which the patient received DDAVP. Total time on pump was 168 minutes. They have V wires and currently have the pacer setto a backup rhythm of VVI. Postoperative CHERYL showed LVEF 50-55%, dilated RV, hyperdynamic LV. Upon arrive, the patient was on insulin but had to be bolused with propofol in the elevator because he was trying to self-extubate. Last dose of paralytic was given at 1420. [facility] was consulted for ICU management post-operatively. Airway view (if available) was: grade I - full view of glottis Lines/Drains/Tubes: . Active . Name Placement date Placement time Site Days CVC Double Lumen 03/22/25 03/22/25 0856 -- less than 1 Peripheral IV 03/22/25 Posterior;Right Wrist 03/22/25 0635 Wrist less than 1 Chest Tube Mediastinal 36 Fr 03/22/25 1422 Mediastinal less than 1 Closed/Suction Drain Inferior;Proximal;Right Leg Bulb 19 Fr. 03/22/25 1120 Leg less than 1 Urethral Catheter Non-latex;Temperature probe 16 Fr. 03/22/25 0805 -- less than 1 Y Chest Tube 1 and 2 Right Pleural 24 Fr. Left Pleural 28 Fr. 03/22/25 1422 -- less than 1 Arterial Line 03/22/25 Right Radial 03/22/25 0847 Radial less than 1 Pulmonary Artery Catheter 03/22/25 Internal jugular Right 03/22/25 0856 Internal jugular less than 1 Last antibiotic: Patient recently received an antibiotic (last 12 hours) Date/Time Action Medication Dose 03/22/25 1250 Given ceFAZolin (Ancef) injection 2 g 2 g 03/22/25 0843 Given ceFAZolin (Ancef) injection 2 g 2 g 03/22/25 0827 Given vancomycin (Vancocin) vial for injection 1 g Per the patient questionnaire: Patient answers are not available for this visit. Medical/Surgical/Social/Family History I have reviewed and updated the patient history. Home Medications: Home Medications[1] Allergies Patient has no known allergies. GCS: [place] Coma Scale Score: 15 Review of Systems 14 point ROS reviewed and otherwise negative or unobtainable except as noted above or in HPI. Vital signs: Vitals: 03/22/25 1631 BP: Pulse: 88 Resp: 22 Temp: SpO2: 99% Intake/Output Summary (Last 24 hours) at 03/22/2025 1638 Last data filed at 03/22/2025 1529 Gross per 24 hour Intake 824 ml Output 1550 ml Net -726 ml Physical Exam: Sedation was held for the purposes of examination. Physical Exam Vitals reviewed. Constitutional: General: He is not in acute distress. Interventions: He is sedated, intubated and restrained. HENT: Head: Normocephalic and atraumatic. Eyes: Conjunctiva/sclera: Conjunctivae normal. Pupils: Pupils are equal, round, and reactive to light. Neck: Comments: RIJ CVC and PAC Cardiovascular: Pulses: Normal pulses. Heart sounds: Normal heart sounds. Comments: Pleural chest tubes x2, mediastinal tube x1 Pulmonary: Effort: He is intubated. Breath sounds: Normal breath sounds and air entry. Comments: No unanticipated findings. Abdominal: General: Bowel sounds are normal. Palpations: Abdomen is soft. There is no mass. Genitourinary: Comments: Bryant catheter Musculoskeletal: General: No deformity. Cervical back: No rigidity. Comments: Right radial arterial line. RLE wrapped in erik bandages with RONNY drain, blood in drain. Skin: General: Skin is warm and dry. Neurological: General: No focal deficit present. Results Review {Vanishing Link Review Results :[id number] I have reviewed the latest lab and imaging results. Assessment and Plan: This patient is critically ill. Assessment & Plan CAD (coronary artery disease) Present on Admission: Unknown - s/p 4vCABG on 03/[address] Rosado S/P CABG x 4 Present on Admission: Not Applicable - ASA, statin, beta daniel as able - Monitor chest tube output On mechanically assisted ventilation (CMS/HCC) Present on Admission: Not Applicable - Wean to extubate, fast track Electrolyte abnormality Present on Admission: Unknown - Monitor and replace per protocol GERD (gastroesophageal reflux disease) Present on Admission: Unknown - PPI Hypertension Present on Admission: Yes - SBP goal < 140 - Restart home meds as able HLD (hyperlipidemia) Present on Admission: Yes - Statin 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) Present on Admission: Unknown - Continue Insulin gtt - On 30u insulin TID at home, will consider endo consult if glycemic control is difficult - On tramadol and gabapentin at home for neuropathy - will restart gabapentin after extubated Hemoglobin A1c Date Value Ref Range Status 02/17/2025 7.2 (H) <5.7 % Final Atrial fibrillation (CMS/HCC) Present on Admission: Unknown - In sinus rhythm on arrival to CVICU - On Xarelto at home - Will continue to monitor - Anticoagulation per CVT CKD (chronic kidney disease) stage 2, GFR 60-89 ml/min Present on Admission: Yes - Monitor per protocol. Creatinine, Plasma Date Value Ref Range Status 03/22/2025 1.29 (H) 0.70 - 1.20 mg/dL Final 03/21/2025 1.35 (H) 0.70 - 1.20 mg/dL Final 02/17/2025 1.46 (H) 0.70 - 1.20 mg/dL Final Postoperative pain Present on Admission: Unknown - Multimodal pain control - Restart home gabapentin when appropriate Non-Hospital Problems CKD (chronic kidney disease) stage 2, GFR 60-89 ml/min Essential hypertension Microalbuminuria Type 2 diabetes mellitus with stage 2 chronic kidney disease, with long-term current use of insulin([facility]) HLD (hyperlipidemia) Obesity (BMI 30-39.9) Shivani Tan MD [1] Medications Prior to Admission Medication Sig Dispense Refill allopurinol (Zyloprim) 300 MG tablet Take by mouth 1 (one) time each day. dilTIAZem CD (Cardizem CD) 180 MG 24 hr capsule Take 1 capsule (180 mg) by mouth 1 (one) time each day. (Patient taking differently: Take 120 mg by mouth daily.) fenofibrate (Tricor) 145 MG tablet Take 1 tablet by mouth daily. gabapentin (Neurontin) 300 MG capsule Take 1 capsule by mouth 2 times a day. Insulin Aspart (NOVOLOG FLEXPEN SC) Inject 30 Units under the skin 3 (three) times a day before meals. Kerendia 10 MG tablet Take by mouth daily. nebivolol (Bystolic) 10 MG tablet Take 1 tablet by mouth daily. traMADol (Ultram) 50 MG tablet Take by mouth every 6 hours. aspirin 81 MG EC tablet Take 1 tablet (81 mg) by mouth 1 (one) time each day. (Patient not taking: No sig reported) atorvastatin (Lipitor) 40 MG tablet Take by mouth 1 (one) time each day. Easy Touch Pen [place] 31G X 8 MM misc hydroCHLOROthiazide (HYDRODiuril) 25 MG tablet Take by mouth 1 (one) time each day. Jardiance 25 MG Take 1 tablet by mouth daily. Lantus SoloStar 100 UNIT/ML injection pen (Patient not taking: No sig reported) lisinopril 20 MG tablet Take 1 tablet by mouth daily. nitroglycerin (Nitrostat) 0.4 MG SL tablet DISSOLVE 1 TABLET UNDER THE TONGUE EVERY 5 MINUTES NEEDED FOR CHEST PAIN. DO NOT EXCEED A TOTAL OF 3 DOSES IN 15 MINUTES. IF NO RELIEF CALL 911. NovoLOG FLEXPEN 100 UNIT/ML injection pen (Patient not taking: Reported on 03/21/2025) omeprazole (PriLOSEC) [address] capsule Take by mouth 1 (one) time each day. sildenafil (Viagra) 100 MG tablet Take 1 tablet by mouth as needed. Xarelto 20 MG tablet TAKE 1 TABLET BY MOUTH EVERY EVENING WITH EVENING MEAL * Assessment & Plan Note - Marquise Raygoza MD - 03/22/2025 4:37 PM EDT Associated Problem(s): S/P CABG x 4 03/22/25 - CABGx4 and RLE EVH with Dr. Rosado * Op Note - Musa Rosado MD - 03/22/2025 8:55 AM EDT Operative Note Median Sternotomy, coronary artery bypass grafting, endoscopic vein aobytjs-[id number]-hxllhev saphenous. -Vein the ascending aorta the 1st diagonal. -Vein from the side of the 1st diagonal graft to the 1st obtuse marginal. -Vein from ascending aorta to the posterior descending coronary artery. -Left internal mammary artery skeletonized in Situ left anterior descending coronary artery. (3 vein grafts, 1 arterial graft, endoscopic vein harvest) Date: 03/22/25 Location: [facility] OR Name: Lizandro Gr, : 1980, Diagnoses: Pre-op Diagnosis Coronary artery disease due to calcified coronary lesion Post-op Diagnosis Coronary artery disease due to calcified coronary lesion CKD (chronic kidney disease) stage 2, GFR 60-89 ml/min 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 (CMS/HCC) Obesity (BMI 30-39.9) Procedure(s): Median Sternotomy, coronary artery bypass grafting, endoscopic vein [id number] saphenous. -Vein the ascending aorta the 1st diagonal. -Vein from the side of the 1st diagonal graft to the 1st obtuse marginal. -Vein from ascending aorta to the posterior descending coronary artery. -Left internal mammary artery skeletonized in Situ left anterior descending coronary artery. (3 vein grafts, 1 arterial graft, endoscopic vein harvest) Attending Surgeon(s): * Musa Rosado - Primary * Murali Gomez - Assisting Separator Operator(s): * Marquise Raygoza MD - Resident - Assisting Murali Gomez PAC performed endoscopic vein harvest. Marquise Raygoza emptying PGY 5-was 1st assistant press operator through the entire case Anesthesia: General ASA: IV Blood Administration: Blood Product Administration History None Estimated Blood Loss: 300 mL Drains: Chest Tube Mediastinal 36 Fr (Active) Closed/Suction Drain Inferior;Proximal;Right Leg Bulb 19 Fr. (Active) Urethral Catheter Non-latex;Temperature probe 16 Fr. (Active) Y Chest Tube 1 and 2 Right Pleural 24 Fr. Left Pleural 28 Fr. (Active) Specimen: None Findings: The patient's coronary arteries were very delicate. There were also large caliber. The ascending aorta was relatively short were size, we attached warm graft to the side of another vein graft to compensate. The patient had troubles and was from cardiopulmonary bypass uneventfully. Indications: Lizandro Gr is an 45 y.o. male who is having surgery for Coronary artery disease due to calcified coronary lesion. He was feeling a significant lack were about 6 months and sought medical attention his primary physician ordered the CT calcium score of coronary artery. The patient had angina, his stress test which suggested multivessel disease balanced ischemia. Underwent cardiac catheterization which outlined significant coronary artery disease. He was referred to us for surgical myocardial revascularization Narrative: The patient was taken to the operating room and placed on the table in the supine position. Initialmonitoring lines were placed by our anesthesia colleagues. General endotracheal anesthesia was induced, monitoring lines were placed, a [place] catheter was floated into position and a transesophageal echo probe was positioned by Anesthesia. The patient was then centered on the operating room table. Pressure points were padded. Patient was then prepped and draped in a sterile manner from chin to ankles, a time-out was called and the patient was identified, the proposed procedure was announcedand confirmed by all in the room. Antibiotics were confirmed to have been administered. A median sternotomy incision was made. Electrocautery was used dissect down to the anterior table of the sternum. The lower part of the manubrium was identified. The fascial plane and mid manubrium was dissected through with electrocautery into a clear space underneath the sternum. The midline was i dentified and she has and deepened to stay in the midline to the xiphoid. Anesthesiologists were asked hold ventilation and the sternum was then divided with an oscillating saw. Ventilations were then resumed. Hemostasis was achieved on the sternal edge with electrocautery. Bone wax was used sparingly to stop the bleeding from the bone marrow. Incision was made on the right lower extremity just below the knee. The right greater saphenous vein was dissected free. The endoscope was placed over the vein and used to bluntly dissect the vein from surrounding tissue. Once the initial dissection was completed a bipolar device was attached to the scope. The branches of the vein were divided and cauterized with the bipolar device. Soft tissue surrounding and connected to the vein was then removed and cauterized using the bipolar device. Once the vein was completely mobilized it was endoscopically tied on the groin side and tied under directvision distally. The vein was then transected using the bipolar device proximally and the scissors d istally. It was then extracted from the leg and immediately cannulated with a vessel cannula and flushed with vein solution which was heparinized. The branches of the vein were then tied with 4-0 silk ties, controlled with Ligaclips, or suture ligated with 7 0 Prolene as indicated. Hemostasis was then checked. The leg was then closed in deep layers of Vicryl. The skin was reapproximated with a subcuticular stitch of Monocryl. At the end of the case the endoscopic vein tunnel was rolled with a towel expressing any accumulated blood out of the incision. It was then sealed with Dermabond. A dressing was applied and Erik wrap was applied to the leg. The Rultract retractor was placed on the patient's left side and the left anthony sternum elevated gently. Electrocautery was used dissect laterally and enter the pleural space. The pleural space was widely opened visualization. The internal mammary artery was identified. The electrocautery power was turned down to 25. An incision was made with cautery between the internal mammary artery and its lateral vein. The mammary was teased away from surrounding structures. It was then mobilized using an in situ skeletonization technique. Very little cautery was used on the chest wall. Hemostasis was achieved with Ligaclips for branches of the mammary artery and point hemorrhage for any ???field?? bleeding. The mammary was mobilized distally to its bifurcation, and proximally to the point were it would fall underneath the lung was not be pushed up to the chest wall once ventilations were begun post anastomosis. Once the MERVAT was completely mobilized it was sprayed with a papaverine solution. At the appropriate time (once we were sure to all was ready to go on cardiopulmonary bypass) heparin was administered and the MERVAT subsequently triply clipped distally next the chest wall and singly clipped within a cm these clips and divided between these 2 sets of clips. It was then laid on the chest wall underneath papaverine soaked sponge. The mammary bed was then examined for bleeding and bleedingcontrolled. The Rultract retractor was then removed and placed on the back table for future use,. The mammary artery appeared to be a suitable conduit. Wound towels were placed on the sternal edges. The Aesculap retractor was inserted in the sternum spread open. The pericardium was opened and pericardial stay sutures were placed. Full-dose heparin was requested to be administered by our anesthesia colleagues, they verbally confirmed that heparin had been administered. Ascending aorta was palpated and felt to be adequate for cannulation. A pursestring suture was in the ascending aorta and snared with tourniquet. With ACTs above 400 and counting and aortic cannula was inserted into the ascending aorta and controlled with a Naila tourniquet. The cannula and tourniquet were tied together and the cannula secured to the wound towel and to the arterial inflow tubingsecured by the patient's side. A pursestring suture was placed around the auricle of the right atrium. An incision was made in the auricle and venous cannula placed and positioned with its tip in theinferior vena cava. This was similarly secured with a Rumel tourniquet. A 4-0 horizontal pledgeted m attress suture was placed in the ascending aorta and antegrade cardioplegia catheter with a side vent was placed and secured with a Naila tourniquet. 100 mL of pump prime was then infused. Pressure on the pump came back to normal. There is no evidenc abnormalities e of dissection or adverse effecton the aorta. A CTs were once again confirmed to be above 400. Cardiopulmonary bypass was then instituted. Systemic cooling was begun. The heart became bradycardic. Cold oxygenated blood antegrade cardioplegia was infused. Ice was placed on the right ventricle. The heart fibrillated. An aortic cross-clamp was placed. 1 L of cold oxygenated blood cardioplegia was infused resulting in asystole. From this point forward cardioplegia was administered every 20 minutes throughout the entire cross-clamp or as needed for electrical or were mechanical cardiac activity. The 1st obtuse marginal vessel was identified VAC heart which was intra myocardial. Opened with a number, a vein to artery anastomosis was then constructed running 7 suture. Runoff via hand injectionwith a syringe was excellent and the anastomosis appeared hemostatic. First diagonal branch left anterior descending was and a vein to artery anastomosis with a running 7 0 Prolene suture. Runoff via hand injection with a. The anastomosis was hemostatic. The posterior descending branch of right coronary artery was opened with a blade and a vein to artery anastomosis was constructed running 7 Prolene suture. Runoff via hand injection with a syringe was excellent and the anastomosis was hemostatic. A bulldog clamp was placed across the proximal left internal mammary. The anterior descending coronary was somewhat intra myocardial was was teased out opened with an ophthalmic super sharp blade. Left internal mammary artery was trimmed to the appropriate angle anastomosed to the left anterior descending coronary artery with a running 7. Flashing the bulldog proximally excellent flow downstream and hemostatic anastomotic site. In additional dose of cardioplegia was administered. Two aortotomy was made in the ascending aorta.The right vein graft and the 1st diagonal vein graft were anastomosed separately to these arteriotomy is with a running 6 0 Prolene suture. The graft going to the 1st obtuse marginal was anastomosed to the side of the diagonal with a running 7 0 suture. The bulldog clamp internal mammary artery graft was removed. Bulldog clamps were placed across the venous grafts. Warm oxygenated blood cardioplegia was administered. Arms were brought back down aortic crossclamp was removed, flows were brought up full flow reinitiate. The vein grafts moved as theyhad been de-aired. The patient was allowed to use and rewarming to a core temperature of 36+ degrees C, he was gently cardiopulmonary bypass uneventfully. Echocardiogram showed no new wall motion abnormality. With the patient hemodynamically stable the anastomotic sites were checked and no bleeding was noted. Cannulas were removed and protamine administered. Proximally 20 minutes after Protamine administration the surgical field began to dry up residual feel bleeding. The heart was once again lifted andall areas inspected, no active bleeding could be seen. The Rultract retractor was brought up onto the field and the mammary bed examined no active bleeding was noted. 1-24 Vincentian tube was placed in the patient's right pleural cavity, 1-28 Vincentian cannula was placed in the left cavity, 1-36 Vincentian mediastinal tube was placed. Chest tubes and pacing wires were secured to the anterior abdominal wall. The sternum was reapproximated with ldouble Osvaldo wires, the fascia was closed with a running PDS suture, subcutaneous tissue was closed with running Vicryl suture, skin was reapproximated with a subcuticular stitch of Monocryl. Dressings were applied and the patient was transferred to intensive care unit bed. He was subsequently transported to our intensive care unit hemodynamically stable. This concludes operative summary Dr. Rosado dictating thank you. Complications: None; patient tolerated the procedure well. Submitted by: Musa Rosado MD - 03/22/2025 * H&P - Hong Marino MD - 03/22/2025 6:24 AM EDT Subjective Chief complaint Day of surgery-CABG History Of Present Illness Lizandro Gr is a 45 y.o. male with recent medical history HTN, HLD, DM2 with neuropathy, CKD 3, and GERD referred to us in consultation by Dr. Gonzalez in regards to recent [facility] with results indicating multi-vessel coronary artery [...] for coronary artery bypass grafting on 03/22/2025 for which he presents. No changes since clinic visit yesterday. Beta daniel: none NHYA: I Medical/Surgical/Social/Family History Allergies Patient has no known allergies. Medications Current Medications[1] Objective Physical Exam Constitutional: Appearance: Normal appearance. He [...] Content: Thought content normal. Judgment: Judgment normal. Last Recorded Vitals There were no vitals taken for this visit. Results Review {Vanishing Link Review Results :[id number] I have reviewed the latest lab and imaging results with the following pertinent results: reviewed Assessment & Plan CAD (coronary artery disease) CAD, multiple vessel Lizandro Gr is a 45 y.o. male with recent medical history HTN, HLD, DM2 with neuropathy, CKD 3, and GERD who presents for CABG. Proceed to OR today. [1] Current Facility-Administered Medications Medication Dose Route Frequency Provider Last Rate Last Admin ceFAZolin (Ancef) injection 2 g 2 g Intravenous Once Zulay Syed APRN Leg Vein Solution Topical Once in OR Musa Rosado MD And NITROGLYCERIN 100 MCG/ML INJECTION (LEG VEIN) injection 4,400 mcg 44 mL Topical Once in OR Musa Rosado MD sodium chloride 0.9 % flush 10 mL 10 mL Intravenous q8h PRN Zulay Syed APRN And sodium chloride 0.9 % flush 10 mL 10 mL Intravenous PRN Zulay Syed APRN Cosigned by Musa Rosado MD at 03/22/2025 3:31 PM EDT Associated attestation - Musa Rosado MD - 03/22/2025 3:31 PM EDT I saw and evaluated the patient with the resident/fellow. I discussed the case with the resident/fellow and agree with the findings and plan as documented. documented in this encounter Plan of Treatment Upcoming Encounters Date Type Department Care Team (Late st Contact Info) Description 04/14/2025 3:40 PM EDT Office Visit [facility] Cardiothoracic [address], [address] [place] [address] Musa Rosado MD [address] [place] [address] 06/13/2025 11:40 AM EDT Office Visit [facility] Nephrology, Bone & Mineral Metabolism [address], [address] [place] [address] Sonia Medley MD [address] [place] [address] Pending Results Name Type Priority Associated Diagnoses Date /Time Prepare Leukocyte Reduced RBC: 4 Units Blood Bank Routine 03/22/2025 6:01 AM EDT Scheduled Referrals Name Type Priority Associated Diagnoses Order Schedule Discharge Ambulatory referral to Cardiac Rehab Outpatient Referral Routine CAD, multiple vessel 1 Occurrences starting 03/22/2025 until 09/23/2026 Discharge Ambulatory referral to Cardiac Rehab Outpatient Referral Routine S/P CABG x 4 1 Occurrences starting 04/05/2025 until 04/05/2026 documented as of this encounter Goals Goal Patient Goal Type Associated Problems Recent Progress Patient-Stated? 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 Syed APRN documented as of this encounter Procedures Procedure Name Priority Date/Time Associated Diagnosis Comments POCT GLUCOSE METER UNSOLICITED RESULTS Routine 03/30/2025 8:32 AM EDT XR CHEST 2 VIEWS Routine 03/30/2025 6:47 AM EDT CBC W/O DIFFERENTIAL Routine 03/30/2025 3:47 AM EDT BASIC METABOLIC PANEL, PLASMA Routine 03/30/2025 3:47 AM EDT POCT GLUCOSE METER UNSOLICITED RESULTS Routine 03/29/2025 7:20 PM EDT POCT GLUCOSE METER UNSOLICITED RESULTS Routine 03/29/2025 5:33 PM EDT POCT GLUCOSE METER UNSOLICITED RESULTS Routine 03/29/2025 12:29 PM EDT PEP THERAPY Routine 03/29/2025 10:00 AM EDT POCT GLUCOSE METER UNSOLICITED RESULTS Routine 03/29/2025 8:19 AM EDT OXYGEN THERAPY Routine 03/29/2025 8:00 AM EDT PEP THERAPY Routine 03/29/2025 6:00 AM EDT PEP THERAPY Routine 03/28/2025 10:00 PM EDT POCT GLUCOSE METER UNSOLICITED RESULTS Routine 03/28/2025 8:02 PM EDT OXYGEN THERAPY Routine 03/28/2025 8:00 PM EDT PEP THERAPY Routine 03/28/2025 6:00 PM EDT POCT GLUCOSE METER UNSOLICITED RESULTS Routine 03/28/2025 4:59 PM EDT PEP THERAPY Routine 03/28/2025 2:00 PM EDT POCT GLUCOSE METER UNSOLICITED RESULTS Routine 03/28/2025 12:10 PM EDT PEP THERAPY Routine 03/28/2025 10:00 AM EDT POCT GLUCOSE METER UNSOLICITED RESULTS Routine 03/28/2025 8:07 AM EDT OXYGEN THERAPY Routine 03/28/2025 8:00 AM EDT XR CHEST 2 VIEWS Routine 03/28/2025 6:13 AM EDT PEP THERAPY Routine 03/28/2025 6:00 AM EDT CBC W/O DIFFERENTIAL Routine 03/28/2025 4:35 AM EDT MAGNESIUM, PLASMA Routine 03/28/2025 4:3 5 AM EDT COMPREHENSIVE METABOLIC PANEL, PLASMA Routine 03/28/2025 4:35 AM EDT PEP THERAPY Routine 03/27/2025 10:00 PM EDT POCT GLUCOSE METER UNSOLICITED RESULTS Routine 03/27/2025 8:18 PM EDT OXYGEN THERAPY Routine 03/27/2025 8:00 PM EDT PEP THERAPY Routine 03/27/2025 6:00 PM EDT POCT GLUCOSE METER UNSOLICITED RESULTS Routine 03/27/2025 5:45 PM EDT PEP THERAPY Routine 03/27/2025 2:00 PM EDT POCT GLUCOSE METER UNSOLICITED RESULTS Routine 03/27/2025 1:04 PM EDT PEP THERAPY Routine 03/27/2025 10:00 AM EDT POCT GLUCOSE METER UNSOLICITED RESULTS Routine 03/27/2025 8:42 AM EDT OXYGEN THERAPY Routine 03/27/2025 8:00 AM EDT PEP THERAPY Routine 03/27/2025 6:00 AM EDT CBC W/O DIFFERENTIAL Routine 03/27/2025 5:02 AM EDT MAGNESIUM, PLASMA Routine 03/27/2025 5:0 2 AM EDT COMPREHENSIVE METABOLIC PANEL, PLASMA Routine 03/27/2025 5:02 AM EDT XR CHEST 1 VIEW Routine 03/27/2025 4:58 AM EDT POCT GLUCOSE METER UNSOLICITED RESULTS Routine 03/27/2025 4:35 AM EDT PEP THERAPY Routine 03/26/2025 10:00 PM EDT POCT GLUCOSE METER UNSOLICITED RESULTS Routine 03/26/2025 8:20 PM EDT OXYGEN THERAPY Routine 03/26/2025 8:00 PM EDT PEP THERAPY Routine 03/26/2025 6:00 PM EDT POCT GLUCOSE METER UNSOLICITED RESULTS Routine 03/26/2025 5:30 PM EDT PEP THERAPY Routine 03/26/2025 2:00 PM EDT POCT GLUCOSE METER UNSOLICITED RESULTS Routine 03/26/2025 12:28 PM EDT PEP THERAPY Routine 03/26/2025 10:00 AM EDT POCT GLUCOSE METER UNSOLICITED RESULTS Routine 03/26/2025 8:40 AM EDT OXYGEN THERAPY Routine 03/26/2025 8:00 AM EDT PEP THERAPY Routine 03/26/2025 6:00 AM EDT XR CHEST 1 VIEW Routine 03/26/2025 5:53 AM EDT CBC W/O DIFFERENTIAL Routine 03/26/2025 3:50 AM EDT MAGNESIUM, PLASMA Routine 03/26/2025 3:5 0 AM EDT LIPID PROFILE, PLASMA Routine 03/26/2025 3:50 AM EDT COMPREHENSIVE METABOLIC PANEL, PLASMA Routine 03/26/2025 3:50 AM EDT PEP THERAPY Routine 03/25/2025 10:00 PM EDT POCT GLUCOSE METER UNSOLICITED RESULTS Routine 03/25/2025 9:52 PM EDT OXYGEN THERAPY Routine 03/25/2025 8:00 PM EDT PEP THERAPY Routine 03/25/2025 6:00 PM EDT POCT GLUCOSE METER UNSOLICITED RESULTS Routine 03/25/2025 5:01 PM EDT PEP THERAPY Routine 03/25/2025 2:00 PM EDT POCT GLUCOSE METER UNSOLICITED RESULTS Routine 03/25/2025 10:59 AM EDT PEP THERAPY Routine 03/25/2025 10:00 AM EDT OXYGEN THERAPY Routine 03/25/2025 8:00 AM EDT POCT GLUCOSE METER UNSOLICITED RESULTS Routine 03/25/2025 7:57 AM EDT PEP THERAPY Routine 03/25/2025 6:00 AM EDT CBC W/O DIFFERENTIAL Routine 03/25/2025 4:07 AM EDT PHOSPHORUS, PLASMA Routine 03/25/2025 4: 07 AM EDT MAGNESIUM, PLASMA Routine 03/25/2025 4:0 7 AM EDT BASIC METABOLIC PANEL, PLASMA Routine 03/25/2025 4:07 AM EDT XR CHEST 1 VIEW Routine 03/25/2025 2:52 AM EDT PEP THERAPY Routine 03/24/2025 10:00 PM EDT POCT GLUCOSE METER UNSOLICITED RESULTS Routine 03/24/2025 9:05 PM EDT OXYGEN THERAPY Routine 03/24/2025 8:00 PM EDT PEP THERAPY Routine 03/24/2025 6:00 PM EDT POCT GLUCOSE METER UNSOLICITED RESULTS Routine 03/24/2025 4:19 PM EDT PEP THERAPY Routine 03/24/2025 2:00 PM EDT POCT GLUCOSE METER UNSOLICITED RESULTS Routine 03/24/2025 11:44 AM EDT TN CRITICAL CARE, E/M 30-74 MINUTES Routine 03/24/2025 11:33 AM EDT CAD, multiple vessel PEP THERAPY Routine 03/24/2025 10:00 AM EDT OXYGEN THERAPY Routine 03/24/2025 8:00 AM EDT POCT GLUCOSE METER UNSOLICITED RESULTS Routine 03/24/2025 7:45 AM EDT PEP THERAPY Routine 03/24/2025 6:00 AM EDT POCT GLUCOSE METER UNSOLICITED RESULTS Routine 03/24/2025 5:56 AM EDT POCT GLUCOSE METER UNSOLICITED RESULTS Routine 03/24/2025 3:40 AM EDT XR CHEST 1 VIEW Routine 03/24/2025 3:14 AM EDT POCT GLUCOSE METER UNSOLICITED RESULTS Routine 03/24/2025 1:46 AM EDT BLOOD GAS PANEL, ARTERIAL Routine 03/24/2025 12:08 AM EDT CBC W/O DIFFERENTIAL Routine 03/24/2025 12:07 AM EDT PHOSPHORUS, PLASMA Routine 03/24/2025 12 :07 AM EDT MAGNESIUM, PLASMA Routine 03/24/2025 12: 07 AM EDT BASIC METABOLIC PANEL, PLASMA Routine 03/24/2025 12:07 AM EDT PEP THERAPY Routine 03/23/2025 10:00 PM EDT POCT GLUCOSE METER UNSOLICITED RESULTS Routine 03/23/2025 9:43 PM EDT OXYGEN THERAPY Routine 03/23/2025 8:00 PM EDT POCT GLUCOSE METER UNSOLICITED RESULTS Routine 03/23/2025 7:55 PM EDT POCT GLUCOSE METER UNSOLICITED RESULTS Routine 03/23/2025 6:27 PM EDT PEP THERAPY Routine 03/23/2025 6:00 PM EDT POCT GLUCOSE METER UNSOLICITED RESULTS Routine 03/23/2025 4:12 PM EDT PEP THERAPY Routine 03/23/2025 2:00 PM EDT POCT GLUCOSE METER UNSOLICITED RESULTS Routine 03/23/2025 1:57 PM EDT TN CRITICAL CARE, E/M 30-74 MINUTES Routine 03/23/2025 12:34 PM EDT CAD, multiple vessel POCT GLUCOSE METER UNSOLICITED RESULTS Routine 03/23/2025 11:59 AM EDT POCT GLUCOSE METER UNSOLICITED RESULTS Routine 03/23/2025 10:06 AM EDT PEP THERAPY Routine 03/23/2025 10:00 AM EDT POCT GLUCOSE METER UNSOLICITED RESULTS Routine 03/23/2025 8:01 AM EDT OXYGEN THERAPY Routine 03/23/2025 8:00 AM EDT BLOOD GAS PANEL, ARTERIAL STAT 03/23/2025 6:18 AM EDT POCT GLUCOSE METER UNSOLICITED RESULTS Routine 03/23/2025 6:11 AM EDT PEP THERAPY Routine 03/23/2025 6:00 AM EDT ECG ADULT STAT 03/23/2025 4:28 AM EDT POCT GLUCOSE METER UNSOLICITED RESULTS Routine 03/23/2025 3:59 AM EDT POTASSIUM, PLASMA Timed 03/23/2025 3:5 6 AM EDT PHOSPHORUS, PLASMA Routine 03/23/2025 3: 56 AM EDT MAGNESIUM, PLASMA Routine 03/23/2025 3:5 6 AM EDT BLOOD GAS PANEL, ARTERIAL Routine 03/23/2025 3:56 AM EDT BASIC METABOLIC PANEL, PLASMA Routine 03/23/2025 3:56 AM EDT BLOOD GAS PANEL WITH OXIMETRY, MIXED VENOUS Routine 03/23/2025 3:53 AM EDT ECG ADULT Routine 03/23/2025 2:49 AM EDT XR CHEST 1 VIEW Routine 03/23/2025 2:43 AM EDT POCT GLUCOSE METER UNSOLICITED RESULTS Routine 03/23/2025 2:03 AM EDT POTASSIUM, PLASMA Timed 03/23/2025 12: 14 AM EDT CBC W/O DIFFERENTIAL Routine 03/23/2025 12:13 AM EDT HEMATOCRIT, BLOOD Timed 03/23/2025 12: 13 AM EDT POCT GLUCOSE METER UNSOLICITED RESULTS Routine 03/23/2025 12:10 AM EDT BLOOD GAS PANEL, ARTERIAL Timed 03/23/2025 12:03 AM EDT POCT GLUCOSE METER UNSOLICITED RESULTS Routine 03/22/2025 10:59 PM EDT POCT GLUCOSE METER UNSOLICITED RESULTS Routine 03/22/2025 10:40 PM EDT PEP THERAPY Routine 03/22/2025 10:00 PM EDT POCT GLUCOSE METER UNSOLICITED RESULTS Routine 03/22/2025 8:21 PM EDT BLOOD GAS PANEL, ARTERIAL Timed 03/22/2025 8:17 PM EDT HEMOGLOBIN Timed 03/22/2025 8:14 PM EDT HEMATOCRIT, BLOOD Timed 03/22/2025 8:1 4 PM EDT POTASSIUM, PLASMA Timed 03/22/2025 8:1 4 PM EDT PHOSPHORUS, PLASMA Routine 03/22/2025 8: 14 PM EDT OXYGEN THERAPY Routine 03/22/2025 8:00 PM EDT OXYGEN THERAPY Routine 03/22/2025 6:22 PM EDT OXYGEN THERAPY Routine 03/22/2025 6:22 PM EDT PEP THERAPY Routine 03/22/2025 6:00 PM EDT BLOOD GAS PANEL, ARTERIAL STAT 03/22/2025 5:44 PM EDT XR CHEST 1 VIEW STAT 03/22/2025 4:46 PM EDT TN CRITICAL CARE, E/M 30-74 MINUTES Routine 03/22/2025 4:38 PM EDT CAD, multiple vessel END TIDAL CO2 MONITORING Routine 03/22/2025 4:31 PM EDT VENTILATOR - ADULT Routine 03/22/2025 4: 31 PM EDT ECG ADULT STAT 03/22/2025 4:10 PM EDT DENISE AURIS SURVEILLANCE BY PCR Routine 03/22/2025 3:52 PM EDT MULTI DRUG RESISTANCE TEST Routine 03/22/2025 3:52 PM EDT APTT STAT 03/22/2025 3:52 PM EDT PROTHROMBIN TIME(PT) / INR STAT 03/22/2025 3:52 PM EDT CBC W/O DIFFERENTIAL STAT 03/22/2025 3:52 PM EDT PHOSPHORUS, PLASMA STAT 03/22/2025 3: 52 PM EDT MAGNESIUM, PLASMA STAT 03/22/2025 3:5 2 PM EDT BLOOD GAS PANEL, ARTERIAL Routine 03/22/2025 3:52 PM EDT BASIC METABOLIC PANEL, PLASMA STAT 03/22/2025 3:52 PM EDT PEP THERAPY Routine 03/22/2025 3:49 PM EDT PEP THERAPY Routine 03/22/2025 3:49 PM EDT PEP THERAPY Routine 03/22/2025 3:49 PM EDT PEP THERAPY Routine 03/22/2025 3:49 PM EDT PEP THERAPY Routine 03/22/2025 3:49 PM EDT POCT ARTERIAL BLOOD GAS GEM UNSOLICITED RESULTS Routine 03/22/2025 3:29 PM EDT POCT ARTERIAL BLOOD GAS GEM UNSOLICITED RESULTS Routine 03/22/2025 2:44 PM EDT QPLUS Routine 03/22/2025 2:24 PM EDT POCT ARTERIAL BLOOD GAS GEM UNSOLICITED RESULTS Routine 03/22/2025 2:10 PM EDT POCT ACT UNSOLICITED RESULTS Routine 03/22/2025 2:04 PM EDT POCT ARTERIAL BLOOD GAS GEM UNSOLICITED RESULTS Routine 03/22/2025 1:29 PM EDT POCT ACT UNSOLICITED RESULTS Routine 03/22/2025 1:25 PM EDT POCT ARTERIAL BLOOD GAS GEM UNSOLICITED RESULTS Routine 03/22/2025 12:55 PM EDT POCT ACT UNSOLICITED RESULTS Routine 03/22/2025 12:51 PM EDT POCT ARTERIAL BLOOD GAS GEM UNSOLICITED RESULTS Routine 03/22/2025 12:25 PM EDT POCT ACT UNSOLICITED RESULTS Routine 03/22/2025 12:21 PM EDT POCT ARTERIAL BLOOD GAS GEM UNSOLICITED RESULTS Routine 03/22/2025 11:54 AM EDT POCT ACT UNSOLICITED RESULTS Routine 03/22/2025 11:49 AM EDT POCT ARTERIAL BLOOD GAS GEM UNSOLICITED RESULTS Routine 03/22/2025 11:26 AM EDT POCT ACT UNSOLICITED RESULTS Routine 03/22/2025 11:22 AM EDT POCT ARTERIAL BLOOD GAS GEM UNSOLICITED RESULTS Routine 03/22/2025 10:55 AM EDT POCT ACT UNSOLICITED RESULTS Routine 03/22/2025 10:52 AM EDT POCT ARTERIAL BLOOD GAS GEM UNSOLICITED RESULTS Routine 03/22/2025 10:04 AM EDT POCT ARTERIAL BLOOD GAS GEM UNSOLICITED RESULTS Routine 03/22/2025 8:01 AM EDT POCT ACT UNSOLICITED RESULTS Routine 03/22/2025 7:57 AM EDT TN CABG, VEIN, THREE 03/22/2025 7:26 AM EDT Coronary artery disease due to calcified coronary lesion CKD (chronic kidney disease) stage 2, GFR 60-89 ml/min 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 ([facility]) Obesity (BMI 30-39.9) APTT Routine 03/22/2025 6:32 AM EDT PROTHROMBIN TIME(PT) / INR STAT 03/22/2025 6:32 AM EDT CBC W/O DIFFERENTIAL STAT 03/22/2025 6:32 AM EDT COMPREHENSIVE METABOLIC PANEL, PLASMA Routine 03/22/2025 6:32 AM EDT POCT GLUCOSE METER UNSOLICITED RESULTS Routine 03/22/2025 6:31 AM EDT PREPARE RBC Routine 03/22/2025 6:01 AM EDT documented in this encounter Results * (ABNORMAL) POCT glucose meter (03/30/2025 8:32 AM EDT) POCT Glucose 176(H) 74 - 99 mg/dL 03/30/2025 8:34 AM EDT [facility] Comment:Accuracy of a glucos e result obtained from a capillary whole blood specimen relies upon adequate, non-compromised capillary blood flow. If the capillary glucose result is not consistent with the patient's clinical signs and symptoms, glucose testing should be repeated with either an arterial or venous sample on the glucometer or sent to the main labortory for testing. Comment 03/30/2025 8:34 AM EDT [facility] Assistant Construction Superintendent ID Katlin Cheung 03/30/2025 8:34 AM EDT [facility] Device ID [id number] 03/30/2025 8:34 AM EDT [facility] Specimen Type POC Capillary 03/30/2025 8:34 AM EDT [facility] Blood Capillary blood specimen / Unknown 03/30/2025 8:32 AM EDT 03/30/2025 8:34 AM EDT Musa Rosado MD LAB POINT OF CARE TE ST DOCKED DEVICE UNSOLICITED RESULTS Final Result Performing Organization Address City/State/RUST Co de Phone Number [facility] [address] [place] [address] * XR Chest 2 Views (03/30/2025 6:47 AM EDT) Anatomical Region Laterality Modality Chest Computed Radiogr aphy Impressions 03/30/2025 9:29 AM EDT Stable exam. CRITICAL RESULT: No. COMMUNICATION: Per this written report Drafted by Dmitri Coffman MD on 03/30/2025 9:28 AM Final report signed by Dmitri Coffman MD on 03/30/2025 9:29 AM Narrative 03/30/2025 9:29 AM EDT CLINICAL INDICATION: eval lung sanon TECHNIQUE: XR CHEST 2 VIEWS COMPARISON: March 28, 2025 FINDINGS: Perihilar and basal airspace disease and/or atelectasis, similar to comparison. Mediastinal and cardiac contours are stable. Procedure Note Dmitri Coffman MD - 03/30/2025 CLINICAL INDICATION: eval lung sanon TECHNIQUE: XR CHEST 2 VIEWS COMPARISON: March 28, 2025 FINDINGS: Perihilar and basal airspace disease and/or atelectasis, similar tocomparison. Mediastinal and cardiac contours are stable. IMPRESSION: Stable exam. CRITICAL RESULT: No. COMMUNICATION: Per this written report Drafted by Dmitri Coffman MD on 03/30/2025 9:28 AM Final report signed by Dmitri Coffman MD on 03/30/2025 9:29 AM Ephraim Hicks INVESTMENT SALES ASSISTANT IMG XR PROCEDURES Final Resu lt * (ABNORMAL) Basic Metabolic Panel, Plasma (03/30/2025 3:47 AM EDT) Glucose, Plasma 172(H) 74 - 99 mg/dL 03/30/2025 5:23 AM EDT [facility] BUN, Plasma 28(H) 7 - 21 mg/dL 03/30/2025 5:23 AM EDT [facility] Creatinine, Plasma 1.18 0.70 - 1.20 mg/dL 03/30/2025 5:23 AM EDT [facility] BUN/Creatinine Ratio 24 03/30/2025 5:23 AM EDT [facility] Sodium, Plasma 138 136 - 145 mmol/L 03/30/2025 5:23 AM EDT [facility] Potassium, Plasma 4.1 3.6 - 4.9 mmol/L 03/30/2025 5:23 AM EDT [facility] Chloride, Plasma 103 97 - 107 mmol/L 03/30/2025 5:23 AM EDT [facility] CO2, Plasma 23 22 - 29 mmol/L 03/30/2025 5:23 AM EDT [facility] Anion Gap 12 6 - 16 mmol/L 03/30/2025 5:23 AM EDT [facility] Total Calcium, Plasma 8.9 8.9 - 10.2 mg/dL 03/30/2025 5:23 AM EDT [facility] eGFRcr 78.5 mL/min/1.7 3m*2 03/30/2025 5:23 AM EDT [facility] Comment:Reported eGFRcr in m L/min/1.73m2 is based the CKD-EPI 2020 equation that does not use a race coefficient. Blood Venous blood specimen / Unknown Venipuncture / Unknown 03/30/2025 3:47 AM EDT 03/30/2025 4:48 AM EDT us Ephraim Hicks APRN LAB BLOOD ORDERABLES Final R esult [facility] [address] [place] [address] * (ABNORMAL) CBC W/O Differential (03/30/2025 3:47 AM EDT) WBC Count 7.54 3.70 - 10.30 10*3/uL LAB HEMATOLOGY METHOD 03/30/2025 4:58 AM EDT [facility] RBC Count 3.01(L) 4.60 - 6.10 10*6/uL LAB HEMATOLOGY METHOD 03/30/2025 4:58 AM EDT [facility] HGB 9.0(L) 13.7 - 17.5 g/dL LAB HEMATOLOGY METHOD 03/30/2025 4:58 AM EDT [facility] HCT 27.9(L) 40.0 - 51.0 % LAB HEMATOLOGY METHOD 03/30/2025 4:58 AM EDT [facility] Platelet Count 286 155 - 369 10*3/uL LAB HEMATOLOGY METHOD 03/30/2025 4:58 AM EDT [facility] MCV 93 79 - 98 fL LAB HEMATOLOGY METHOD 03/30/2025 4:58 AM EDT [facility] MCH 29.9 26.0 - 32.0 pg LAB HEMATOLOGY METHOD 03/30/2025 4:58 AM EDT [facility] MCHC 32.3 30.7 - 35.5 g/dL LAB HEMATOLOGY METHOD 03/30/2025 4:58 AM EDT [facility] RDW 14.3 11.5 - 14.5 % LAB HEMATOLOGY METHOD 03/30/2025 4:58 AM EDT [facility] MPV 10.7 8.8 - 12.5 fL LAB HEMATOLOGY METHOD 03/30/2025 4:58 AM EDT [facility] nRBC 0.4(H) <=0.0 per 100 WBCs LAB HEMATOLOGY METHOD 03/30/2025 4:58 AM EDT [facility] Blood Venous blood specimen / Unknown Venipuncture / Unknown 03/30/2025 3:47 AM EDT 03/30/2025 4:51 AM EDT us Ephraim Hicks APRN LAB BLOOD ORDERABLES Final R esult [facility] [address] [place] [address] * (ABNORMAL) POCT glucose meter (03/29/2025 7:20 PM EDT) [facility] POCT Glucose 226(H) 74 - 99 mg/dL 03/29/2025 7:21 PM EDT [facility] Comment:Accuracy of a glucos e result obtained from a capillary whole blood specimen relies upon adequate, non-compromised capillary blood flow. If the capillary glucose result is not consistent with the patient's clinical signs and symptoms, glucose testing should be repeated with either an arterial or venous sample on the glucometer or sent to the main labortory for testing. Comment 03/29/2025 7:21 PM EDT [facility] Assistant Construction Superintendent ID Guerline Arambula 03/29/20 7:21 PM EDT [facility] Device ID [id number] 03/29/2025 7:21 PM EDT [facility] Specimen Type POC Capillary 03/29/2025 7:21 PM EDT [facility] Blood Capillary blood specimen / Unknown 03/29/2025 7:20 PM EDT 03/29/2025 7:21 PM EDT us Musa Rosado MD LAB POINT OF CARE TE ST DOCKED DEVICE UNSOLICITED RESULTS Final Result [facility] [address] [place] [address] * (ABNORMAL) POCT glucose meter (03/29/2025 5:33 PM EDT) [facility] POCT Glucose 155(H) 74 - 99 mg/dL 03/29/2025 5:35 PM EDT [facility] Comment:Accuracy of a glucos e result obtained from a capillary whole blood specimen relies upon adequate, non-compromised capillary blood flow. If the capillary glucose result is not consistent with the patient's clinical signs and symptoms, glucose testing should be repeated with either an arterial or venous sample on the glucometer or sent to the main labortory for testing. Comment 03/29/2025 5:35 PM EDT [facility] Assistant Construction Superintendent ID Kristie Sanon 025 5:35 PM EDT [facility] Device ID [id number] 03/29/2025 5:35 PM EDT [facility] Specimen Type POC Capillary 03/29/2025 5:35 PM EDT [facility] Blood Capillary blood specimen / Unknown 03/29/2025 5:33 PM EDT 03/29/2025 5:35 PM EDT Musa Rosado MD LAB POINT OF CARE TE ST DOCKED DEVICE UNSOLICITED RESULTS Final Result [facility] [address] [place] [address] * (ABNORMAL) POCT glucose meter (03/29/2025 12:29 PM EDT) [facility] POCT Glucose 213(H) 74 - 99 mg/dL 03/29/2025 12:30 PM EDT [facility] Comment:Accuracy of a glucos e result obtained from a capillary whole blood specimen relies upon adequate, non-compromised capillary blood flow. If the capillary glucose result is not consistent with the patient's clinical signs and symptoms, glucose testing should be repeated with either an arterial or venous sample on the glucometer or sent to the main labortory for testing. Comment 03/29/2025 12:30 PM EDT [facility] Assistant Construction Superintendent ID Kristie Sanon 025 12:30 PM EDT [facility] Device ID [id number] 03/29/2025 12:30 PM EDT [facility] Specimen Type POC Capillary 03/29/2025 12:30 PM EDT [facility] Blood Capillary blood specimen / Unknown 03/29/2025 12:29 PM EDT 03/29/2025 12:30 PM EDT us Musa Rosado MD LAB POINT OF CARE TE ST DOCKED DEVICE UNSOLICITED RESULTS Final Result Performing Organization Address City/[facility] Co de Phone Number [facility] [address] [place] [address] * (ABNORMAL) POCT glucose meter (03/29/2025 8:19 AM EDT) POCT Glucose 176(H) 74 - 99 mg/dL 03/29/2025 8:20 AM EDT [facility] Comment:Accuracy of a glucos e result obtained from a capillary whole blood specimen relies upon adequate, non-compromised capillary blood flow. If the capillary glucose result is not consistent with the patient's clinical signs and symptoms, glucose testing should be repeated with either an arterial or venous sample on the glucometer or sent to the main labortory for testing. Comment 03/29/2025 8:20 AM EDT [facility] Assistant Construction Superintendent ID Kristie Sanon 025 8:20 AM EDT [facility] Device ID [id number] 03/29/2025 8:20 AM EDT [facility] Specimen Type POC Capillary 03/29/2025 8:20 AM EDT [facility] Blood Capillary blood specimen / Unknown 03/29/2025 8:19 AM EDT 03/29/2025 8:20 AM EDT us Musa Rosado MD LAB POINT OF CARE TE ST DOCKED DEVICE UNSOLICITED RESULTS Final Result Performing Organization Address City/[facility] de Phone Number [facility] [address] [place] [address] * (ABNORMAL) POCT glucose meter (03/28/2025 8:02 PM EDT) POCT Glucose 179(H) 74 - 99 mg/dL 03/28/2025 8:04 PM EDT [facility] Comment:Accuracy of a glucos e result obtained from a capillary whole blood specimen relies upon adequate, non-compromised capillary blood flow. If the capillary glucose result is not consistent with the patient's clinical signs and symptoms, glucose testing should be repeated with either an arterial or venous sample on the glucometer or sent to the main labortory for testing. Comment 03/28/2025 8:04 PM EDT [facility] Assistant Construction Superintendent ID Kathia Carl 03/28/2025 8:04 PM EDT [facility] Device ID [id number] 03/28/2025 8:04 PM EDT [facility] Specimen Type POC Capillary 03/28/2025 8:04 PM EDT [facility] Blood Capillary blood specimen / Unknown 03/28/2025 8:02 PM EDT 03/28/2025 8:04 PM EDT Musa Rosado MD LAB POINT OF CARE TE ST DOCKED DEVICE UNSOLICITED RESULTS Final Result [facility] [address] [place] [address] * (ABNORMAL) POCT glucose meter (03/28/2025 4:59 PM EDT) [facility] POCT Glucose 164(H) 74 - 99 mg/dL 03/28/2025 5:00 PM EDT [facility] Comment:Accuracy of a glucos e result obtained from a capillary whole blood specimen relies upon adequate, non-compromised capillary blood flow. If the capillary glucose result is not consistent with the patient's clinical signs and symptoms, glucose testing should be repeated with either an arterial or venous sample on the glucometer or sent to the main labortory for testing. Comment 03/28/2025 5:00 PM EDT [facility] Assistant Construction Superintendent ID Kristie Sanon 025 5:00 PM EDT [facility] Device ID [id number] 03/28/2025 5:00 PM EDT [facility] Specimen Type POC Capillary 03/28/2025 5:00 PM EDT [facility] Blood Capillary blood specimen / Unknown 03/28/2025 4:59 PM EDT 03/28/2025 5:00 PM EDT Musa Rosado MD LAB POINT OF CARE TE ST DOCKED DEVICE UNSOLICITED RESULTS Final Result Performing Organization Address [facility] Co de Phone Number [facility] [address] [place] [address] * (ABNORMAL) POCT glucose meter (03/28/2025 12:10 PM EDT) Pathologist [facility] POCT Glucose 243(H) 74 - 99 mg/dL 03/28/2025 12:12 PM EDT [facility] Comment:Accuracy of a glucos e result obtained from a capillary whole blood specimen relies upon adequate, non-compromised capillary blood flow. If the capillary glucose result is not consistent with the patient's clinical signs and symptoms, glucose testing should be repeated with either an arterial or venous sample on the glucometer or sent to the main labortory for testing. Comment 03/28/2025 12:12 PM EDT [facility] Assistant Construction Superintendent ID Kristie Sanon 025 12:12 PM EDT [facility] Device ID [id number] 03/28/2025 12:12 PM EDT [facility] Specimen Type POC Capillary 03/28/2025 12:12 PM EDT [facility] Blood Capillary blood specimen / Unknown 03/28/2025 12:10 PM EDT 03/28/2025 12:12 PM EDT us Musa Rosado MD LAB POINT OF CARE TE ST DOCKED DEVICE UNSOLICITED RESULTS Final Result Performing Organization Address City/[facility] Co de Phone Number [facility] [address] [place] [address] * (ABNORMAL) POCT glucose meter (03/28/2025 8:07 AM EDT) Pathologist [facility] POCT Glucose 205(H) 74 - 99 mg/dL 03/28/2025 8:09 AM EDT [facility] Comment:Accuracy of a glucos e result obtained from a capillary whole blood specimen relies upon adequate, non-compromised capillary blood flow. If the capillary glucose result is not consistent with the patient's clinical signs and symptoms, glucose testing should be repeated with either an arterial or venous sample on the glucometer or sent to the main labortory for testing. Comment 03/28/2025 8:09 AM EDT [facility] Assistant Construction Superintendent ID Kristie Sanon 025 8:09 AM EDT [facility] Device ID [id number] 03/28/2025 8:09 AM EDT [facility] Specimen Type POC Capillary 03/28/2025 8:09 AM EDT [facility] Blood Capillary blood specimen / Unknown 03/28/2025 8:07 AM EDT 03/28/2025 8:09 AM EDT Musa Rosado MD LAB POINT OF CARE TE ST DOCKED DEVICE UNSOLICITED RESULTS Final Result [facility] [address] [place] [address] * XR Chest 2 Views (03/28/2025 6:13 AM EDT) Anatomical Region Laterality Modality Chest Computed Radiogr aphy Impressions 03/28/2025 10:43 AM EDT Stable exam. CRITICAL RESULT: No. COMMUNICATION: Per this written report Drafted by Dmitri Coffman MD on 03/28/2025 10:43 AM Final report signed by Dmitri Coffman MD on 03/28/2025 10:43 AM Narrative 03/28/2025 10:43 AM EDT CLINICAL INDICATION: evaluate lung sanon TECHNIQUE: XR CHEST 2 VIEWS COMPARISON: March 27, 2025 FINDINGS: Basal atelectasis and small pleural effusions, similar to comparison. Procedure Note Dmitri Coffman MD - 03/28/2025 CLINICAL INDICATION: evaluate lung sanon TECHNIQUE: XR CHEST 2 VIEWS COMPARISON: March 27, 2025 FINDINGS: Basal atelectasis and small pleural effusions, similar to comparison. IMPRESSION: Stable exam. CRITICAL RESULT: No. COMMUNICATION: Per this written report Drafted by Dmitri Coffman MD on 03/28/2025 10:43 AM Final report signed by Dmitri Coffman MD on 03/28/2025 10:43 AM us La Nena March INVESTMENT SALES ASSISTANT IMG XR PROCEDURES Final Result * Magnesium (03/28/2025 4:35 AM EDT) Magnesium, Plasma 1.9 1.9 - 2.4 mg/dL 03/28/2025 5:18 AM EDT [facility] Blood Venous blood specimen / Unknown Venipuncture / Unknown 03/28/2025 4:35 AM EDT 03/28/2025 4:42 AM EDT us La Nena March APRN LAB BLOOD ORDERABLES Final Res ult [facility] [address] [place] [address] * (ABNORMAL) Comprehensive metabolic panel (03/28/2025 4:35 AM EDT) Glucose, Plasma 196(H) 74 - 99 mg/dL 03/28/2025 5:18 AM EDT [facility] BUN, Plasma 20 7 - 21 mg/dL 03/28/2025 5:18 AM EDT [facility] Creatinine, Plasma 1.13 0.70 - 1.20 mg/dL 03/28/2025 5:18 AM EDT [facility] BUN/Creatinine Ratio 18 03/28/2025 5:18 AM EDT [facility] Sodium, Plasma 134(L) 136 - 145 mmol/L 03/28/2025 5:18 AM EDT [facility] Potassium, Plasma 4.2 3.6 - 4.9 mmol/L 03/28/2025 5:18 AM EDT [facility] Chloride, Plasma 102 97 - 107 mmol/L 03/28/2025 5:18 AM EDT [facility] CO2, Plasma 22 22 - 29 mmol/L 03/28/2025 5:18 AM EDT [facility] Anion Gap 10 6 - 16 mmol/L 03/28/2025 5:18 AM EDT [facility] Total Calcium, Plasma 9.1 8.9 - 10.2 mg/dL 03/28/2025 5:18 AM EDT [facility] Total Protein 6.3 6.3 - 7.9 g/dL 03/28/2025 5:18 AM EDT [facility] Albumin, Plasma 3.6 3.5 - 5.2 g/dL 03/28/2025 5:18 AM EDT [facility] AST, Plasma 32 10 - 50 U/L 03/28/2025 5:18 AM EDT [facility] ALT, Plasma 35 10 - 50 U/L 03/28/2025 5:18 AM EDT [facility] Alkaline Phosphatase, Plasma 67 40 - 115 U/L 03/28/2025 5:18 AM EDT [facility] Total Bilirubin, Plasma 0.8 0.2 - 1.1 mg/dL 03/28/2025 5:18 AM EDT [facility] eGFRcr 82.7 mL/min/1.7 3m*2 03/28/2025 5:18 AM EDT [facility] Comment:Reported eGFRcr in m L/min/1.73m2 is based the CKD-EPI 2020 equation that does not use a race coefficient. Blood Venous blood specimen / Unknown Venipuncture / Unknown 03/28/2025 4:35 AM EDT 03/28/2025 4:42 AM EDT La Nena March APRN LAB BLOOD ORDERABLES Final Res ult [facility] [address] [place] [address] * (ABNORMAL) Hemogram (CBC) (03/28/2025 4:35 AM EDT) WBC Count 6.01 3.70 - 10.30 10*3/uL LAB HEMATOLOGY METHOD 03/28/2025 5:08 AM EDT [facility] RBC Count 2.89(L) 4.60 - 6.10 10*6/uL LAB HEMATOLOGY METHOD 03/28/2025 5:08 AM EDT [facility] HGB 8.8(L) 13.7 - 17.5 g/dL LAB HEMATOLOGY METHOD 03/28/2025 5:08 AM EDT [facility] HCT 26.6(L) 40.0 - 51.0 % LAB HEMATOLOGY METHOD 03/28/2025 5:08 AM EDT [facility] Platelet Count 218 155 - 369 10*3/uL LAB HEMATOLOGY METHOD 03/28/2025 5:08 AM EDT [facility] MCV 92 79 - 98 fL LAB HEMATOLOGY METHOD 03/28/2025 5:08 AM EDT [facility] MCH 30.4 26.0 - 32.0 pg LAB HEMATOLOGY METHOD 03/28/2025 5:08 AM EDT [facility] MCHC 33.1 30.7 - 35.5 g/dL LAB HEMATOLOGY METHOD 03/28/2025 5:08 AM EDT [facility] RDW 13.6 11.5 - 14.5 % LAB HEMATOLOGY METHOD 03/28/2025 5:08 AM EDT [facility] MPV 10.7 8.8 - 12.5 fL LAB HEMATOLOGY METHOD 03/28/2025 5:08 AM EDT [facility] nRBC 0.5(H) <=0.0 per 100 WBCs LAB HEMATOLOGY METHOD 03/28/2025 5:08 AM EDT [facility] Blood Venous blood specimen / Unknown Venipuncture / Unknown 03/28/2025 4:35 AM EDT 03/28/2025 4:43 AM EDT us La Nena March APRN LAB BLOOD ORDERABLES Final Res ult [facility] [address] [place] [address] * (ABNORMAL) POCT glucose meter (03/27/2025 8:18 PM EDT) [facility] POCT Glucose 161(H) 74 - 99 mg/dL 03/27/2025 8:20 PM EDT [facility] Comment:Accuracy of a glucos e result obtained from a capillary whole blood specimen relies upon adequate, non-compromised capillary blood flow. If the capillary glucose result is not consistent with the patient's clinical signs and symptoms, glucose testing should be repeated with either an arterial or venous sample on the glucometer or sent to the main labortory for testing. Comment 03/27/2025 8:20 PM EDT [facility] Assistant Construction Superintendent ID Mandy Overton 03/27/2025 8:20 PM EDT [facility] Device ID [id number] 03/27/2025 8:20 PM EDT [facility] Specimen Type POC Capillary 03/27/2025 8:20 PM EDT [facility] Blood Capillary blood specimen / Unknown 03/27/2025 8:18 PM EDT 03/27/2025 8:20 PM EDT Musa Rosado MD LAB POINT OF CARE TE ST DOCKED DEVICE UNSOLICITED RESULTS Final Result Performing Organization Address [facility] de Phone Number [facility] [address] [place] [address] * (ABNORMAL) POCT glucose meter (03/27/2025 5:45 PM EDT) [facility] POCT Glucose 184(H) 74 - 99 mg/dL 03/27/2025 5:47 PM EDT [facility] Comment:Accuracy of a glucos e result obtained from a capillary whole blood specimen relies upon adequate, non-compromised capillary blood flow. If the capillary glucose result is not consistent with the patient's clinical signs and symptoms, glucose testing should be repeated with either an arterial or venous sample on the glucometer or sent to the main labortory for testing. Comment 03/27/2025 5:47 PM EDT [facility] Assistant Construction Superintendent ID Larry Maher 5:47 PM EDT [facility] Device ID [id number] 03/27/2025 5:47 PM EDT [facility] Specimen Type POC Capillary 03/27/2025 5:47 PM EDT [facility] Blood Capillary blood specimen / Unknown 03/27/2025 5:45 PM EDT 03/27/2025 5:47 PM EDT Musa Rosado MD LAB POINT OF CARE TE ST DOCKED DEVICE UNSOLICITED RESULTS Final Result Performing Organization Address City/[facility] Co de Phone Number [facility] [address] [place] [address] * (ABNORMAL) POCT glucose meter (03/27/2025 1:04 PM EDT) [facility] POCT Glucose 242(H) 74 - 99 mg/dL 03/27/2025 1:06 PM EDT [facility] Comment:Accuracy of a glucos e result obtained from a capillary whole blood specimen relies upon adequate, non-compromised capillary blood flow. If the capillary glucose result is not consistent with the patient's clinical signs and symptoms, glucose testing should be repeated with either an arterial or venous sample on the glucometer or sent to the main labortory for testing. Comment 03/27/2025 1:06 PM EDT [facility] Assistant Construction Superintendent ID Mary Jo Tracey 03/27/20 1:06 PM EDT [facility] Device ID [id number] 03/27/2025 1:06 PM EDT [facility] Specimen Type POC Capillary 03/27/2025 1:06 PM EDT [facility] Blood Capillary blood specimen / Unknown 03/27/2025 1:04 PM EDT 03/27/2025 1:06 PM EDT Musa Rosado MD LAB POINT OF CARE TE ST DOCKED DEVICE UNSOLICITED RESULTS Final Result [facility] [address] [place] [address] * (ABNORMAL) POCT glucose meter (03/27/2025 8:42 AM EDT) [facility] POCT Glucose 211(H) 74 - 99 mg/dL 03/27/2025 8:44 AM EDT [facility] Comment:Accuracy of a glucos e result obtained from a capillary whole blood specimen relies upon adequate, non-compromised capillary blood flow. If the capillary glucose result is not consistent with the patient's clinical signs and symptoms, glucose testing should be repeated with either an arterial or venous sample on the glucometer or sent to the main labortory for testing. Comment 03/27/2025 8:44 AM EDT [facility] Assistant Construction Superintendent ID Larry Maher 8:44 AM EDT [facility] Device ID [id number] 03/27/2025 8:44 AM EDT [facility] Specimen Type POC Capillary 03/27/2025 8:44 AM EDT [facility] Blood Capillary blood specimen / Unknown 03/27/2025 8:42 AM EDT 03/27/2025 8:44 AM EDT us Musa Rosado MD LAB POINT OF CARE TE ST DOCKED DEVICE UNSOLICITED RESULTS Final Result Performing Organization Address City/[facility]/ZIP Co de Phone Number [facility] [address] [place] [address] * Magnesium (03/27/2025 5:02 AM EDT) Magnesium, Plasma 1.9 1.9 - 2.4 mg/dL 03/27/2025 5:49 AM EDT [facility] Blood Venous blood specimen / Unknown Venipuncture / Unknown 03/27/2025 5:02 AM EDT 03/27/2025 5:22 AM EDT us La Nena March APRN LAB BLOOD ORDERABLES Final Res ult Performing Organization Address City/[facility]/ZIP Co de Phone Number [facility] [address] [place] [address] * (ABNORMAL) Comprehensive metabolic panel (03/27/2025 5:02 AM EDT) Glucose, Plasma 200(H) 74 - 99 mg/dL 03/27/2025 5:49 AM EDT [facility] BUN, Plasma 18 7 - 21 mg/dL 03/27/2025 5:49 AM EDT [facility] Creatinine, Plasma 1.03 0.70 - 1.20 mg/dL 03/27/2025 5:49 AM EDT [facility] BUN/Creatinine Ratio 17 03/27/2025 5:49 AM EDT [facility] Sodium, Plasma 138 136 - 145 mmol/L 03/27/2025 5:49 AM EDT [facility] Potassium, Plasma 4.3 3.6 - 4.9 mmol/L 03/27/2025 5:49 AM EDT [facility] Chloride, Plasma 106 97 - 107 mmol/L 03/27/2025 5:49 AM EDT [facility] CO2, Plasma 22 22 - 29 mmol/L 03/27/2025 5:49 AM EDT [facility] Anion Gap 10 6 - 16 mmol/L 03/27/2025 5:49 AM EDT [facility] Total Calcium, Plasma 8.8(L) 8.9 - 10.2 mg/dL 03/27/2025 5:49 AM EDT [facility] Total Protein 6.4 6.3 - 7.9 g/dL 03/27/2025 5:49 AM EDT [facility] Albumin, Plasma 3.4(L) 3.5 - 5.2 g/dL 03/27/2025 5:49 AM EDT [facility] AST, Plasma 21 10 - 50 U/L 03/27/2025 5:49 AM EDT [facility] ALT, Plasma 21 10 - 50 U/L 03/27/2025 5:49 AM EDT [facility] Alkaline Phosphatase, Plasma 59 40 - 115 U/L 03/27/2025 5:49 AM EDT [facility] Total Bilirubin, Plasma 0.8 0.2 - 1.1 mg/dL 03/27/2025 5:49 AM EDT [facility] eGFRcr 92.4 mL/min/1.7 3m*2 03/27/2025 5:49 AM EDT [facility] Comment:Reported eGFRcr in m L/min/1.73m2 is based the CKD-EPI 2020 equation that does not use a race coefficient. Blood Venous blood specimen / Unknown Venipuncture / Unknown 03/27/2025 5:02 AM EDT 03/27/2025 5:22 AM EDT us La Nena March INVESTMENT SALES ASSISTANT LAB BLOOD ORDERABLES Final Res ult [facility] [address] [place] [address] * (ABNORMAL) Hemogram (CBC) (03/27/2025 5:02 AM EDT) WBC Count 5.04 3.70 - 10.30 10*3/uL LAB HEMATOLOGY METHOD 03/27/2025 5:37 AM EDT [facility] RBC Count 2.93(L) 4.60 - 6.10 10*6/uL LAB HEMATOLOGY METHOD 03/27/2025 5:37 AM EDT [facility] HGB 8.8(L) 13.7 - 17.5 g/dL LAB HEMATOLOGY METHOD 03/27/2025 5:37 AM EDT [facility] HCT 27.3(L) 40.0 - 51.0 % LAB HEMATOLOGY METHOD 03/27/2025 5:37 AM EDT [facility] Platelet Count 174 155 - 369 10*3/uL LAB HEMATOLOGY METHOD 03/27/2025 5:37 AM EDT [facility] MCV 93 79 - 98 fL LAB HEMATOLOGY METHOD 03/27/2025 5:37 AM EDT [facility] MCH 30.0 26.0 - 32.0 pg LAB HEMATOLOGY METHOD 03/27/2025 5:37 AM EDT [facility] MCHC 32.2 30.7 - 35.5 g/dL LAB HEMATOLOGY METHOD 03/27/2025 5:37 AM EDT [facility] RDW 13.7 11.5 - 14.5 % LAB HEMATOLOGY METHOD 03/27/2025 5:37 AM EDT [facility] MPV 10.6 8.8 - 12.5 fL LAB HEMATOLOGY METHOD 03/27/2025 5:37 AM EDT [facility] nRBC 0.6(H) <=0.0 per 100 WBCs LAB HEMATOLOGY METHOD 03/27/2025 5:37 AM EDT [facility] Blood Venous blood specimen / Unknown Venipuncture / Unknown 03/27/2025 5:02 AM EDT 03/27/2025 5:22 AM EDT us La Nena March INVESTMENT SALES ASSISTANT LAB BLOOD ORDERABLES Final Res ult [facility] [address] [place] [address] * XR Chest 1 View (03/27/2025 4:58 AM EDT) Anatomical Region Laterality Modality Chest Digital Radiogra phy Impressions 03/27/2025 10:17 AM EDT No significant interval change. CRITICAL RESULT: No. COMMUNICATION: Per this written report. Drafted by Milli Elkins MD on 03/27/2025 10:16 AM Final report signed by Milli Elkins MD on 03/27/2025 10:17 AM Narrative 03/27/2025 10:17 AM EDT CLINICAL INDICATION: evalaute lung sanon TECHNIQUE: Single AP view of chest. COMPARISON: One day prior FINDINGS: Intact median sternotomy wires. The cardiomediastinal contours unchanged. No pneumothorax. Small bilateral pleural effusions. Mild pulmonary vascular congestion. Similar bibasal lung opacities may represent atelectasis and/or airspace disease. No new lung consolidation. Procedure Note Milli Elkins MD - 03/27/2025 CLINICAL INDICATION: evalaute lung sanon TECHNIQUE: Single AP view of chest. COMPARISON: One day prior FINDINGS: Intact median sternotomy wires. The cardiomediastinal contours unchanged.No pneumothorax. Small bilateral pleural effusions. Mild pulmonaryvascular congestion. Similar bibasal lung opacities may representatelectasis and/or airspace disease. No new lung consolidation. IMPRESSION: No significant interval change. CRITICAL RESULT: No. COMMUNICATION: Per this written report. Drafted by Milli Elkins MD on 03/27/2025 10:16 AM Final report signed by Milli Elkins MD on 03/27/2025 10:17 AM La Nena March INVESTMENT SALES ASSISTANT IMG XR PROCEDURES Final Result * (ABNORMAL) POCT glucose meter (03/27/2025 4:35 AM EDT) POCT Glucose 189(H) 74 - 99 mg/dL 03/27/2025 4:38 AM EDT [facility] Comment:Accuracy of a glucos e result obtained from a capillary whole blood specimen relies upon adequate, non-compromised capillary blood flow. If the capillary glucose result is not consistent with the patient's clinical signs and symptoms, glucose testing should be repeated with either an arterial or venous sample on the glucometer or sent to the main labortory for testing. Comment 03/27/2025 4:38 AM EDT [facility] Assistant Construction Superintendent ID Gary Norma 025 4:38 AM EDT [facility] Device ID [id number] 03/27/2025 4:38 AM EDT [facility] Specimen Type POC Capillary 03/27/2025 4:38 AM EDT [facility] Blood Capillary blood specimen / Unknown 03/27/2025 4:35 AM EDT 03/27/2025 4:38 AM EDT Musa Rosado MD LAB POINT OF CARE TE ST DOCKED DEVICE UNSOLICITED RESULTS Final Result Performing Organization Address City/[facility] Co de Phone Number [facility] [address] [place] [address] * (ABNORMAL) POCT glucose meter (03/26/2025 8:20 PM EDT) [facility] POCT Glucose 260(H) 74 - 99 mg/dL 03/26/2025 8:24 PM EDT [facility] Comment:Accuracy of a glucos e result obtained from a capillary whole blood specimen relies upon adequate, non-compromised capillary blood flow. If the capillary glucose result is not consistent with the patient's clinical signs and symptoms, glucose testing should be repeated with either an arterial or venous sample on the glucometer or sent to the main labortory for testing. Comment 03/26/2025 8:24 PM EDT [facility] Assistant Construction Superintendent ID Norma Vega 025 8:24 PM EDT [facility] Device ID [id number] 03/26/2025 8:24 PM EDT [facility] Specimen Type POC Capillary 03/26/2025 8:24 PM EDT [facility] Blood Capillary blood specimen / Unknown 03/26/2025 8:20 PM EDT 03/26/2025 8:24 PM EDT Musa Rosado MD LAB POINT OF CARE TE ST DOCKED DEVICE UNSOLICITED RESULTS Final Result Performing Organization Address City/[facility]/ZIP Co de Phone Number [facility] [address] [place] [address] * (ABNORMAL) POCT glucose meter (03/26/2025 5:30 PM EDT) POCT Glucose 211(H) 74 - 99 mg/dL 03/26/2025 5:34 PM EDT [facility] Comment:Accuracy of a glucos e result obtained from a capillary whole blood specimen relies upon adequate, non-compromised capillary blood flow. If the capillary glucose result is not consistent with the patient's clinical signs and symptoms, glucose testing should be repeated with either an arterial or venous sample on the glucometer or sent to the main labortory for testing. Comment 03/26/2025 5:34 PM EDT [facility] Assistant Construction Superintendent ID Tonja Olivares 5:34 PM EDT [facility] Device ID [id number] 03/26/2025 5:34 PM EDT [facility] Specimen Type POC Capillary 03/26/2025 5:34 PM EDT [facility] Blood Capillary blood specimen / Unknown 03/26/2025 5:30 PM EDT 03/26/2025 5:34 PM EDT Musa Rosado MD LAB POINT OF CARE TE ST DOCKED DEVICE UNSOLICITED RESULTS Final Result Performing Organization Address City/State/[place] Co de Phone Number [facility] [address] [place] [address] * (ABNORMAL) POCT glucose meter (03/26/2025 12:28 PM EDT) [facility] POCT Glucose 254(H) 74 - 99 mg/dL 03/26/2025 12:30 PM EDT [facility] Comment:Accuracy of a glucos e result obtained from a capillary whole blood specimen relies upon adequate, non-compromised capillary blood flow. If the capillary glucose result is not consistent with the patient's clinical signs and symptoms, glucose testing should be repeated with either an arterial or venous sample on the glucometer or sent to the main labortory for testing. Comment 03/26/2025 12:30 PM EDT [facility] Assistant Construction Superintendent ID Tonja Olivares 12:30 PM EDT [facility] Device ID [id number] 03/26/2025 12:30 PM EDT [facility] Specimen Type POC Capillary 03/26/2025 12:30 PM EDT [facility] Blood Capillary blood specimen / Unknown 03/26/2025 12:28 PM EDT 03/26/2025 12:30 PM EDT us Musa Rosado MD LAB POINT OF CARE TE ST DOCKED DEVICE UNSOLICITED RESULTS Final Result Performing Organization Address [facility] de Phone Number [facility] [address] [place] [address] * (ABNORMAL) POCT glucose meter (03/26/2025 8:40 AM EDT) POCT Glucose 197(H) 74 - 99 mg/dL 03/26/2025 8:42 AM EDT [facility] Comment:Accuracy of a glucos e result obtained from a capillary whole blood specimen relies upon adequate, non-compromised capillary blood flow. If the capillary glucose result is not consistent with the patient's clinical signs and symptoms, glucose testing should be repeated with either an arterial or venous sample on the glucometer or sent to the main labortory for testing. Comment 03/26/2025 8:42 AM EDT [facility] Assistant Construction Superintendent ID Tonja Olivares 8:42 AM EDT [facility] Device ID [id number] 03/26/2025 8:42 AM EDT [facility] Specimen Type POC Capillary 03/26/2025 8:42 AM EDT [facility] Blood Capillary blood specimen / Unknown 03/26/2025 8:40 AM EDT 03/26/2025 8:42 AM EDT us Musa Rosado MD LAB POINT OF CARE TE ST DOCKED DEVICE UNSOLICITED RESULTS Final Result Performing Organization Address City/[facility]/[place] Co de Phone Number [facility] [address] [place] [address] * XR Chest 1 View (03/26/2025 5:53 AM EDT) Anatomical Region Laterality Modality Chest Digital Radiogra phy Impressions 03/26/2025 9:51 AM EDT No significant interval change. CRITICAL RESULT: No. COMMUNICATION: Per this written report. Drafted by Milli Elkins MD on 03/26/2025 9:49 AM Final report signed by Milli Elkins MD on 03/26/2025 9:51 AM Narrative 03/26/2025 9:51 AM EDT CLINICAL INDICATION: evaluate lung sanon TECHNIQUE: Single AP view of chest. COMPARISON: One day prior FINDINGS: Interval removal of the right central venous catheter. Intact median sternotomy wires. The cardiomediastinal contours are unchanged. Mild pulmonary vascular congestion without overt edema. No pneumothorax. Stable small bilateral pleural effusion. Stable bilateral lower lobe predominant lung opacities which may represent atelectasis. Persistent low lung volume. Procedure Note Milli Elkins MD - 03/26/2025 CLINICAL INDICATION: evaluate lung sanon TECHNIQUE: Single AP view of chest. COMPARISON: One day prior FINDINGS: Interval removal of the right central venous catheter. Intact mediansternotomy wires. The cardiomediastinal contours are unchanged. Mildpulmonary vascular congestion without overt edema. No pneumothorax. Stablesmall bilateral pleural effusion. Stable bilateral lower lobe predominantlung opacities which may represent atelectasis. Persistent low lungvolume. IMPRESSION: No significant interval change. CRITICAL RESULT: No. COMMUNICATION: Per this written report. Drafted by Milli Elkins MD on 03/26/2025 9:49 AM Final report signed by Milli Elkins MD on 03/26/2025 9:51 AM La Nena March INVESTMENT SALES ASSISTANT IMG XR PROCEDURES Final Result * (ABNORMAL) Lipid panel (03/26/2025 3:50 AM EDT) Cholesterol, Plasma 76 <200 mg/dL 03/26/2025 4:55 AM EDT [facility] Comment: Cholesterol Reference Range (age >17 years): Desirable <200 mg/dL Borderline 200 to 239 mg/dL Undesirable >239 mg/dL HDL 22(L) >=40 mg/dL 03/26/2025 4:55 AM EDT [facility] Comment: HDL Cholesterol Reference Ranges (age >17 years): Female, acceptable > or = 50 mg/dL Male, acceptable > or = 40 mg/dL Triglycerides, Plasma 152(H) <150 mg/dL 03/26/2025 4:55 AM EDT [facility] Comment: Triglyceride Reference Range (age >17 years): Desirable: <150 mg/dL Borderline high: 150 to 199 mg/dL High: 200 to 499 mg/dL Very high: >499 mg/dL Increased risk of pancreatitis: >1000 mg/dL Cholesterol/HDL Ratio 3 03/26/2025 4:55 AM EDT [facility] LDL, Calculated 28 <100 mg/dL 4:55 AM EDT [facility] Comment: LDL Cholesterol Reference Range (age >17 years): Optimal: <100 mg/dL Near or above optimal: 100 - 129 mg/dL Borderline high: 130 - 159 mg/dL High: 160 - 189 mg/dL Very high: >189 mg/dL LDL Cholesterol Reference Range (age <18 years): Desirable: <110 mg/dL Borderline: 110 - 129 mg/dL Undesirable: >130 mg/dL LDL Cholesterol is calculated using the Horvath/NIH equation. Fasting greater than or equal to 12 hours? No 03/26/2025 4:55 AM EDT [facility] Blood Venous blood specimen / Unknown Venipuncture / Unknown 03/26/2025 3:50 AM EDT 03/26/2025 4:26 AM EDT La Nena S Joaquim INVESTMENT SALES ASSISTANT LAB BLOOD ORDERABLES Final Res ult Performing Organization Address City/[facility]/ZIP Co de Phone Number [facility] [address] [place] [address] * Magnesium (03/26/2025 3:50 AM EDT) Magnesium, Plasma 2.1 1.9 - 2.4 mg/dL 03/26/2025 4:55 AM EDT [facility] Blood Venous blood specimen / Unknown Venipuncture / Unknown 03/26/2025 3:50 AM EDT 03/26/2025 4:26 AM EDT La Nena Berenice March INVESTMENT SALES ASSISTANT LAB BLOOD ORDERABLES Final Res ult [facility] [address] [place] [address] * (ABNORMAL) Comprehensive metabolic panel (03/26/2025 3:50 AM EDT) Glucose, Plasma 268(H) 74 - 99 mg/dL 03/26/2025 4:55 AM EDT [facility] BUN, Plasma 24(H) 7 - 21 mg/dL 03/26/2025 4:55 AM EDT [facility] Creatinine, Plasma 1.06 0.70 - 1.20 mg/dL 03/26/2025 4:55 AM EDT [facility] BUN/Creatinine Ratio 23 03/26/2025 4:55 AM EDT [facility] Sodium, Plasma 138 136 - 145 mmol/L 03/26/2025 4:55 AM EDT [facility] Potassium, Plasma 4.0 3.6 - 4.9 mmol/L 03/26/2025 4:55 AM EDT [facility] Chloride, Plasma 104 97 - 107 mmol/L 03/26/2025 4:55 AM EDT [facility] CO2, Plasma 25 22 - 29 mmol/L 03/26/2025 4:55 AM EDT [facility] Anion Gap 9 6 - 16 mmol/L 03/26/2025 4:55 AM EDT [facility] Total Calcium, Plasma 8.3(L) 8.9 - 10.2 mg/dL 03/26/2025 4:55 AM EDT [facility] Total Protein 5.9(L) 6.3 - 7.9 g/dL 03/26/2025 4:55 AM EDT [facility] Albumin, Plasma 3.2(L) 3.5 - 5.2 g/dL 03/26/2025 4:55 AM EDT [facility] AST, Plasma 18 10 - 50 U/L 03/26/2025 4:55 AM EDT [facility] ALT, Plasma 14 10 - 50 U/L 03/26/2025 4:55 AM EDT [facility] Alkaline Phosphatase, Plasma 43 40 - 115 U/L 03/26/2025 4:55 AM EDT [facility] Total Bilirubin, Plasma 0.5 0.2 - 1.1 mg/dL 03/26/2025 4:55 AM EDT [facility] eGFRcr 89.3 mL/min/1.7 3m*2 03/26/2025 4:55 AM EDT [facility] Comment:Reported eGFRcr in m L/min/1.73m2 is based the CKD-EPI 2020 equation that does not use a race coefficient. Blood Venous blood specimen / Unknown Venipuncture / Unknown 03/26/2025 3:50 AM EDT 03/26/2025 4:26 AM EDT us La Nena March APRN LAB BLOOD ORDERABLES Final Res ult [facility] [address] [place] [address] * (ABNORMAL) Hemogram (CBC) (03/26/2025 3:50 AM EDT) WBC Count 4.53 3.70 - 10.30 10*3/uL LAB HEMATOLOGY METHOD 03/26/2025 4:36 AM EDT [facility] RBC Count 2.56(L) 4.60 - 6.10 10*6/uL LAB HEMATOLOGY METHOD 03/26/2025 4:36 AM EDT [facility] HGB 7.8(L) 13.7 - 17.5 g/dL LAB HEMATOLOGY METHOD 03/26/2025 4:36 AM EDT [facility] HCT 23.9(L) 40.0 - 51.0 % LAB HEMATOLOGY METHOD 03/26/2025 4:36 AM EDT [facility] Platelet Count 129(L) 155 - 369 10*3/uL LAB HEMATOLOGY METHOD 03/26/2025 4:36 AM EDT [facility] MCV 93 79 - 98 fL LAB HEMATOLOGY METHOD 03/26/2025 4:36 AM EDT [facility] MCH 30.5 26.0 - 32.0 pg LAB HEMATOLOGY METHOD 03/26/2025 4:36 AM EDT [facility] MCHC 32.6 30.7 - 35.5 g/dL LAB HEMATOLOGY METHOD 03/26/2025 4:36 AM EDT [facility] RDW 13.5 11.5 - 14.5 % LAB HEMATOLOGY METHOD 03/26/2025 4:36 AM EDT [facility] MPV 11.4 8.8 - 12.5 fL LAB HEMATOLOGY METHOD 03/26/2025 4:36 AM EDT [facility] nRBC 0.4(H) <=0.0 per 100 WBCs LAB HEMATOLOGY METHOD 03/26/2025 4:36 AM EDT [facility] Blood Venous blood specimen / Unknown Venipuncture / Unknown 03/26/2025 3:50 AM EDT 03/26/2025 4:27 AM EDT us La Nena March APRN LAB BLOOD ORDERABLES Final Res ult [facility] [address] [place] [address] * (ABNORMAL) POCT glucose meter (03/25/2025 9:52 PM EDT) [facility] POCT Glucose 210(H) 74 - 99 mg/dL 03/25/2025 9:54 PM EDT [facility] Comment:Accuracy of a glucos e result obtained from a capillary whole blood specimen relies upon adequate, non-compromised capillary blood flow. If the capillary glucose result is not consistent with the patient's clinical signs and symptoms, glucose testing should be repeated with either an arterial or venous sample on the glucometer or sent to the main labortory for testing. Comment 03/25/2025 9:54 PM EDT [facility] Assistant Construction Superintendent ID Zaida Stearns 03/25/20 9:54 PM EDT [facility] LAB Device ID [id number] 03/25/2025 9:54 PM EDT [facility] Specimen Type POC Capillary 03/25/2025 9:54 PM EDT [facility] Blood Capillary blood specimen / Unknown 03/25/2025 9:52 PM EDT 03/25/2025 9:54 PM EDT us Musa Rosado MD LAB POINT OF CARE TE ST DOCKED DEVICE UNSOLICITED RESULTS Final Result [facility] [address] [place] [address] * (ABNORMAL) POCT glucose meter (03/25/2025 5:01 PM EDT) [facility] POCT Glucose 214(H) 74 - 99 mg/dL 03/25/2025 5:02 PM EDT [facility] Comment:Accuracy of a glucos e result obtained from a capillary whole blood specimen relies upon adequate, non-compromised capillary blood flow. If the capillary glucose result is not consistent with the patient's clinical signs and symptoms, glucose testing should be repeated with either an arterial or venous sample on the glucometer or sent to the main labortory for testing. Comment 03/25/2025 5:02 PM EDT [facility] Assistant Construction Superintendent ID Camille Espana 03/25/2025 5:02 PM EDT [facility] Device ID [id number] 03/25/2025 5:02 PM EDT [facility] Specimen Type POC Capillary 03/25/2025 5:02 PM EDT [facility] Blood Capillary blood specimen / Unknown 03/25/2025 5:01 PM EDT 03/25/2025 5:02 PM EDT Musa Rosado MD LAB POINT OF CARE TE ST DOCKED DEVICE UNSOLICITED RESULTS Final Result Performing Organization Address City/State/[place] Co de Phone Number [facility] [address] [place] [address] * (ABNORMAL) POCT glucose meter (03/25/2025 10:59 AM EDT) [facility] POCT Glucose 206(H) 74 - 99 mg/dL 03/25/2025 11:00 AM EDT [facility] Comment:Accuracy of a glucos e result obtained from a capillary whole blood specimen relies upon adequate, non-compromised capillary blood flow. If the capillary glucose result is not consistent with the patient's clinical signs and symptoms, glucose testing should be repeated with either an arterial or venous sample on the glucometer or sent to the main labortory for testing. Comment 03/25/2025 11:00 AM EDT [facility] Assistant Construction Superintendent ID Camille Espana 03/25/2025 11:00 AM EDT [facility] Device ID [id number] 03/25/2025 11:00 AM EDT [facility] Specimen Type POC Capillary 03/25/2025 11:00 AM EDT [facility] Blood Capillary blood specimen / Unknown 03/25/2025 10:59 AM EDT 03/25/2025 11:00 AM EDT Musa Rosado MD LAB POINT OF CARE TE ST DOCKED DEVICE UNSOLICITED RESULTS Final Result Performing Organization Address City/[facility] de Phone Number [facility] [address] [place] [address] * (ABNORMAL) POCT glucose meter (03/25/2025 7:57 AM EDT) Pathologist [facility] POCT Glucose 198(H) 74 - 99 mg/dL 03/25/2025 7:58 AM EDT [facility] Comment:Accuracy of a glucos e result obtained from a capillary whole blood specimen relies upon adequate, non-compromised capillary blood flow. If the capillary glucose result is not consistent with the patient's clinical signs and symptoms, glucose testing should be repeated with either an arterial or venous sample on the glucometer or sent to the main labortory for testing. Comment 03/25/2025 7:58 AM EDT [facility] Assistant Construction Superintendent ID Camille Espana 03/25/2025 7:58 AM EDT [facility] Device ID [id number] 03/25/2025 7:58 AM EDT [facility] Specimen Type POC Capillary 03/25/2025 7:58 AM EDT [facility] Blood Capillary blood specimen / Unknown 03/25/2025 7:57 AM EDT 03/25/2025 7:58 AM EDT Musa Rosado MD LAB POINT OF CARE TE ST DOCKED DEVICE UNSOLICITED RESULTS Final Result Performing Organization Address City/[facility]/ZIP Co de Phone Number [facility] [address] [place] [address] * (ABNORMAL) Phosphorus, Plasma (03/25/2025 4:07 AM EDT) Pathologist [facility] Phosphorus, Plasma 1.2(L) 2.5 - 4.5 mg/dL 03/25/2025 4:54 AM EDT [facility] Blood Venous blood specimen / Unknown Venipuncture / Unknown 03/25/2025 4:07 AM EDT 03/25/2025 4:20 AM EDT Musa Rosado MD LAB BLOOD ORDERABLES Final R esult Performing Organization Address City/[facility]/ZIP Co de Phone Number [facility] [address] [place] [address] * (ABNORMAL) Magnesium, Plasma (03/25/2025 4:07 AM EDT) Magnesium, Plasma 1.8(L) 1.9 - 2.4 mg/dL 03/25/2025 4:54 AM EDT [facility] Blood Venous blood specimen / Unknown Venipuncture / Unknown 03/25/2025 4:07 AM EDT 03/25/2025 4:20 AM EDT Musa Rosado MD LAB BLOOD ORDERABLES Final R esult Performing Organization Address [facility] de Phone Number [facility] [address] [place] [address] * (ABNORMAL) CBC (03/25/2025 4:07 AM EDT) WBC Count 6.01 3.70 - 10.30 10*3/uL LAB HEMATOLOGY METHOD 03/25/2025 4:30 AM EDT [facility] RBC Count 2.47(L) 4.60 - 6.10 10*6/uL LAB HEMATOLOGY METHOD 03/25/2025 4:30 AM EDT [facility] HGB 7.5(L) 13.7 - 17.5 g/dL LAB HEMATOLOGY METHOD 03/25/2025 4:30 AM EDT [facility] HCT 22.8(L) 40.0 - 51.0 % LAB HEMATOLOGY METHOD 03/25/2025 4:30 AM EDT [facility] Platelet Count 105(L) 155 - 369 10*3/uL LAB HEMATOLOGY METHOD 03/25/2025 4:30 AM EDT [facility] MCV 92 79 - 98 fL LAB HEMATOLOGY METHOD 03/25/2025 4:30 AM EDT [facility] MCH 30.4 26.0 - 32.0 pg LAB HEMATOLOGY METHOD 03/25/2025 4:30 AM EDT [facility] MCHC 32.9 30.7 - 35.5 g/dL LAB HEMATOLOGY METHOD 03/25/2025 4:30 AM EDT [facility] RDW 13.4 11.5 - 14.5 % LAB HEMATOLOGY METHOD 03/25/2025 4:30 AM EDT [facility] MPV 11.3 8.8 - 12.5 fL LAB HEMATOLOGY METHOD 03/25/2025 4:30 AM EDT [facility] nRBC 0.0 <=0.0 per 100 WBCs LAB HEMATOLOGY METHOD 03/25/2025 4:30 AM EDT [facility] Blood Venous blood specimen / Unknown Venipuncture / Unknown 03/25/2025 4:07 AM EDT 03/25/2025 4:23 AM EDT us Musa Rosado MD LAB BLOOD ORDERABLES Final R esult [facility] [address] [place] [address] * (ABNORMAL) Basic metabolic panel (03/25/2025 4:07 AM EDT) Glucose, Plasma 183(H) 74 - 99 mg/dL 03/25/2025 4:54 AM EDT [facility] BUN, Plasma 22(H) 7 - 21 mg/dL 03/25/2025 4:54 AM EDT [facility] Creatinine, Plasma 1.04 0.70 - 1.20 mg/dL 03/25/2025 4:54 AM EDT [facility] BUN/Creatinine Ratio 21 03/25/2025 4:54 AM EDT [facility] Sodium, Plasma 136 136 - 145 mmol/L 03/25/2025 4:54 AM EDT [facility] Potassium, Plasma 4.3 3.6 - 4.9 mmol/L 03/25/2025 4:54 AM EDT [facility] Chloride, Plasma 101 97 - 107 mmol/L 03/25/2025 4:54 AM EDT [facility] CO2, Plasma 26 22 - 29 mmol/L 03/25/2025 4:54 AM EDT [facility] Anion Gap 9 6 - 16 mmol/L 03/25/2025 4:54 AM EDT [facility] Total Calcium, Plasma 8.2(L) 8.9 - 10.2 mg/dL 03/25/2025 4:54 AM EDT [facility] eGFRcr 91.4 mL/min/1.7 3m*2 03/25/2025 4:54 AM EDT [facility] Comment:Reported eGFRcr in m L/min/1.73m2 is based the CKD-EPI 2020 equation that does not use a race coefficient. Blood Venous blood specimen / Unknown Venipuncture / Unknown 03/25/2025 4:07 AM EDT 03/25/2025 4:20 AM EDT us Musa Rosado MD LAB BLOOD ORDERABLES Final R esult Performing Organization Address City/State/[place] Co de Phone Number [facility] [address] [place] [address] * XR Chest 1 View (03/25/2025 2:52 AM EDT) Anatomical Region Laterality Modality Chest Digital Radiogra phy Impressions 03/25/2025 4:51 AM EDT Interval removal of the chest and mediastinal drains. Stable lung aeration. CRITICAL RESULT: No. COMMUNICATION: Per this written report. Drafted by Maryjane Kay MD on 03/25/2025 4:49 AM Final report signed by Maryjane Kay MD on 03/25/2025 4:51 AM Narrative 03/25/2025 4:51 AM EDT CLINICAL INDICATION: cvt postop TECHNIQUE: XR CHEST 1 VIEW COMPARISON: 03/24/2025 FINDINGS: Removal of the chest and mediastinal drains. Perihilar and basilar atelectasis. Small left effusion. Tiny apical pneumothoraces. No sizable pneumothorax. Stable heart size. Postoperative mediastinum. Procedure Note Maryjane Kay MD - 03/25/2025 CLINICAL INDICATION: cvt postop TECHNIQUE: XR CHEST 1 VIEW COMPARISON: 03/24/2025 FINDINGS: Removal of the chest and mediastinal drains. Perihilar and basilaratelectasis. Small left effusion. Tiny apical pneumothoraces. No sizablepneumothorax. Stable heart size. Postoperative mediastinum. IMPRESSION: Interval removal of the chest and mediastinal drains. Stable lungaeration. CRITICAL RESULT: No. COMMUNICATION: Per this written report. Drafted by Maryjane Kay MD on 03/25/2025 4:49 AM Final report signed by Maryjane Kay MD on 03/25/2025 4:51 AM Musa Rosado MD IMG XR PROCEDURES Final Resu lt * (ABNORMAL) POCT glucose meter (03/24/2025 9:05 PM EDT) [facility] POCT Glucose 182(H) 74 - 99 mg/dL 03/24/2025 9:06 PM EDT [facility] Comment:Accuracy of a glucos e result obtained from a capillary whole blood specimen relies upon adequate, non-compromised capillary blood flow. If the capillary glucose result is not consistent with the patient's clinical signs and symptoms, glucose testing should be repeated with either an arterial or venous sample on the glucometer or sent to the main labortory for testing. Comment 03/24/2025 9:06 PM EDT [facility] Assistant Construction Superintendent ID [email or web address] 03/24/2025 9:06 PM EDT [facility] Device ID [id number] 03/24/2025 9:06 PM EDT [facility] Specimen Type POC Capillary 03/24/2025 9:06 PM EDT [facility] Blood Capillary blood specimen / Unknown 03/24/2025 9:05 PM EDT 03/24/2025 9:06 PM EDT Musa Roasdo MD LAB POINT OF CARE TE ST DOCKED DEVICE UNSOLICITED RESULTS Final Result [facility] [address] [place] [address] * (ABNORMAL) POCT glucose meter (03/24/2025 4:19 PM EDT) [facility] POCT Glucose 183(H) 74 - 99 mg/dL 03/24/2025 4:20 PM EDT [facility] Comment:Accuracy of a glucos e result obtained from a capillary whole blood specimen relies upon adequate, non-compromised capillary blood flow. If the capillary glucose result is not consistent with the patient's clinical signs and symptoms, glucose testing should be repeated with either an arterial or venous sample on the glucometer or sent to the main labortory for testing. Comment 03/24/2025 4:20 PM EDT [facility] Assistant Construction Superintendent ID Beverly Alonso 03/24/2025 4:20 PM EDT [facility] Device ID [id number] 03/24/2025 4:20 PM EDT [facility] Specimen Type POC Arterial 03/24/2025 4:20 PM EDT [facility] Blood Arterial blood specimen / Unknown 03/24/2025 4:19 PM EDT 03/24/2025 4:20 PM EDT Musa Rosado MD LAB POINT OF CARE TE ST DOCKED DEVICE UNSOLICITED RESULTS Final Result Performing Organization Address City/State/[place] Co de Phone Number [facility] [address] [place] [address] * (ABNORMAL) POCT glucose meter (03/24/2025 11:44 AM EDT) [facility] POCT Glucose 208(H) 74 - 99 mg/dL 03/24/2025 11:46 AM EDT [facility] Comment:Accuracy of a glucos e result obtained from a capillary whole blood specimen relies upon adequate, non-compromised capillary blood flow. If the capillary glucose result is not consistent with the patient's clinical signs and symptoms, glucose testing should be repeated with either an arterial or venous sample on the glucometer or sent to the main labortory for testing. Comment 03/24/2025 11:46 AM EDT [facility] Assistant Construction Superintendent ID Beverly Alonso 03/24/2025 11:46 AM EDT [facility] Device ID [id number] 03/24/2025 11:46 AM EDT [facility] Specimen Type POC Arterial 03/24/2025 11:46 AM EDT [facility] Blood Arterial blood specimen / Unknown 03/24/2025 11:44 AM EDT 03/24/2025 11:46 AM EDT us Musa Rosado MD LAB POINT OF CARE TE ST DOCKED DEVICE UNSOLICITED RESULTS Final Result [facility] [address] [place] [address] * [place] CRITICAL CARE, E/M 30-74 MINUTES (03/24/2025 11:33 AM EDT) Narrative Krunal Galdamez MD - 03/24/2025 11:33 AM EDT Krunal Galdamez MD 03/24/2025 1:09 PM Critical Care Performed by: Krunal Galdamez MD Authorized by: Krunal Galdamez MD Critical care provider statement: Critical care time (minutes): 38 Critical care time was exclusive of: Separately billable procedures and treating other patients and teaching time Critical care was time spent personally by me on the following activities: Development of treatment plan with patient or surrogate, ordering and performing treatments and interventions, discussions with consultants, ordering and review of laboratory studies, discussions with primary provider, ordering and review of radiographic studies, evaluation of patient's response to treatment and examination of patient Critical care statement: I saw and evaluated the patient with the resident/ fellow. I discussed the case with the resident/ fellow and agree with the findings and plan as documented. us Krunal Galdamez MD IN CLINIC/BEDSIDE ORDERABLES Final Result * (ABNORMAL) POCT glucose meter (03/24/2025 7:45 AM EDT) [facility] POCT Glucose 208(H) 74 - 99 mg/dL 03/24/2025 8:21 AM EDT [facility] Comment:Accuracy of a glucos e result obtained from a capillary whole blood specimen relies upon adequate, non-compromised capillary blood flow. If the capillary glucose result is not consistent with the patient's clinical signs and symptoms, glucose testing should be repeated with either an arterial or venous sample on the glucometer or sent to the main labortory for testing. Comment 03/24/2025 8:21 AM EDT [facility] Assistant Construction Superintendent ID Svetlana Alonsoth 03/24/2025 8:21 AM EDT [facility] Device ID [id number] 03/24/2025 8:21 AM EDT [facility]ALTH[facility]ARE LAB Specimen Type POC Arterial 03/24/2025 8:21 AM EDT [facility] Blood Arterial blood specimen / Unknown 03/24/2025 7:45 AM EDT 03/24/2025 8:21 AM EDT Musa Rosado MD LAB POINT OF CARE TE ST DOCKED DEVICE UNSOLICITED RESULTS Final Result Performing Organization Address [facility] de Phone Number HEALTHCARE LAB [address] [place] [address] * (ABNORMAL) POCT glucose meter (03/24/2025 5:56 AM EDT) Pathologist [facility] POCT Glucose 146(H) 74 - 99 mg/dL 03/24/2025 5:58 AM EDT [facility] Comment:Accuracy of a glucos e result obtained from a capillary whole blood specimen relies upon adequate, non-compromised capillary blood flow. If the capillary glucose result is not consistent with the patient's clinical signs and symptoms, glucose testing should be repeated with either an arterial or venous sample on the glucometer or sent to the main labortory for testing. Comment 03/24/2025 5:58 AM EDT [facility]ALTH[facility]ARE [facility] Assistant Construction Superintendent ID Yuri Diggs 03/24/2025 5:58 AM EDT HEALTHCARE LAB Device ID [id number] 03/24/2025 5:58 AM EDT [facility] Specimen Type POC Capillary 03/24/2025 5:58 AM EDT [facility] Blood Capillary blood specimen / Unknown 03/24/2025 5:56 AM EDT 03/24/2025 5:58 AM EDT us Musa Rosado MD LAB POINT OF CARE TE ST DOCKED DEVICE UNSOLICITED RESULTS Final Result Performing Organization Address City/[facility] de Phone Number [facility] [address] [place] [address] * (ABNORMAL) POCT glucose meter (03/24/2025 3:40 AM EDT) POCT Glucose 180(H) 74 - 99 mg/dL 03/24/2025 3:41 AM EDT [facility] Comment:Accuracy of a glucos e result obtained from a capillary whole blood specimen relies upon adequate, non-compromised capillary blood flow. If the capillary glucose result is not consistent with the patient's clinical signs and symptoms, glucose testing should be repeated with either an arterial or venous sample on the glucometer or sent to the main labortory for testing. Comment 03/24/2025 3:41 AM EDT [facility]ALTH[facility]ARE LAB Assistant Construction Superintendent ID Yuri Diggs 03/24/2025 3:41 AM EDT [facility]ALTH[facility]ARE LAB Device ID [id number] 03/24/2025 3:41 AM EDT [facility]ALTH[facility]ARE LAB Specimen Type POC Capillary 03/24/2025 3:41 AM EDT [facility] Blood Capillary blood specimen / Unknown 03/24/2025 3:40 AM EDT 03/24/2025 3:41 AM EDT Musa Rosado MD LAB POINT OF CARE TE ST DOCKED DEVICE UNSOLICITED RESULTS Final Result Performing Organization Address City/State/[place] Co de Phone Number [facility]ALTH[facility]ARE [facility] [address] [place] [address] * XR Chest 1 View (03/24/2025 3:14 AM EDT) Anatomical Region Laterality Modality Chest Digital Radiogra phy Impressions 03/24/2025 9:52 AM EDT Interval removal of the [place]-Brea catheter. Otherwise no significant interval change. CRITICAL RESULT: No. COMMUNICATION: Per this written report. Drafted by Milli Elkins MD on 03/24/2025 9:51 AM Final report signed by Milli Elkins MD on 03/24/2025 9:52 AM Narrative 03/24/2025 9:52 AM EDT CLINICAL INDICATION: Post-Op Cardiac Surgery TECHNIQUE: Single AP view of chest. COMPARISON: One day prior FINDINGS: Interval removal of the [place]-Brea catheter. The rest of the portal hardware unchanged. The cardiac and mediastinal contours are unchanged. No sizable pneumothorax. Small left pleural effusion similar to prior. Persistent bilateral perihilar and bibasal lung opacities may represent atelectasis. No new lung consolidation. Persistent low lung volume. Procedure Note Milli Elkins MD - 03/24/2025 CLINICAL INDICATION: Post-Op Cardiac Surgery TECHNIQUE: Single AP view of chest. COMPARISON: One day prior FINDINGS: Interval removal of the [place]-Brea catheter. The rest of the portalhardware unchanged. The cardiac and mediastinal contours are unchanged. Nosizable pneumothorax. Small left pleural effusion similar to prior.Persistent bilateral perihilar and bibasal lung opacities may representatelectasis. No new lung consolidation. Persistent low lung volume. IMPRESSION: Interval removal of the [place]-Brea catheter. Otherwise no significantinterval change. CRITICAL RESULT: No. COMMUNICATION: Per this written report. Drafted by Milli Elkins MD on 03/24/2025 9:51 AM Final report signed by Milli Elkins MD on 03/24/2025 9:52 AM Musa Rosado MD IMG XR PROCEDURES Final Resu lt * (ABNORMAL) POCT glucose meter (03/24/2025 1:46 AM EDT) POCT Glucose 143(H) 74 - 99 mg/dL 03/24/2025 1:48 AM EDT [facility] Comment:Accuracy of a glucos e result obtained from a capillary whole blood specimen relies upon adequate, non-compromised capillary blood flow. If the capillary glucose result is not consistent with the patient's clinical signs and symptoms, glucose testing should be repeated with either an arterial or venous sample on the glucometer or sent to the main labortory for testing. Comment 03/24/2025 1:48 AM EDT [facility] Assistant Construction Superintendent ID Yuri Diggs 03/24/2025 1:48 AM EDT [facility] Device ID [id number] 03/24/2025 1:48 AM EDT [facility]ALTH[facility]ARE LAB Specimen Type POC Capillary 03/24/2025 1:48 AM EDT [facility] Blood Capillary blood specimen / Unknown 03/24/2025 1:46 AM EDT 03/24/2025 1:48 AM EDT Musa Rosado MD LAB POINT OF CARE TE ST DOCKED DEVICE UNSOLICITED RESULTS Final Result [facility] [address] [place] [address] * (ABNORMAL) Blood gas, arterial (03/24/2025 12:08 AM EDT) pH, Arterial 7.42 7.35 - 7.45 LAB HEMATOLOGY METHOD 03/24/2025 12:18 AM EDT [facility] pCO2, Arterial 43 32 - 45 mmHg LAB HEMATOLOGY METHOD 03/24/2025 12:18 AM EDT [facility] pO2, Arterial 58(LL) 83 - 108 mmHg LAB HEMATOLOGY METHOD 03/24/2025 12:18 AM EDT [facility] SO2, Measured, Arterial 90(L) 94 - 98 % LAB HEMATOLOGY METHOD 03/24/2025 12:18 AM EDT [facility] Base Excess, Arterial 2.9 -2.0 - 3.0 mmol/L LAB HEMATOLOGY METHOD 03/24/2025 12:18 AM EDT [facility] Bicarbonate, Calculated, Arterial 28(H) 22 - 26 mmol/L LAB HEMATOLOGY METHOD 03/24/2025 12:18 AM EDT [facility] Hematocrit, Whole Blood 26.5(L) 40.0 - 51.0 % LAB HEMATOLOGY METHOD 03/24/2025 12:18 AM EDT [facility] Sodium, Whole Blood 138 136 - 145 mmol/L LAB HEMATOLOGY METHOD 03/24/2025 12:18 AM EDT [facility] Potassium, Whole Blood 4.2 3.6 - 4.9 mmol/L LAB HEMATOLOGY METHOD 03/24/2025 12:18 AM EDT [facility] Chloride, Whole Blood 104 97 - 107 mmol/L LAB HEMATOLOGY METHOD 03/24/2025 12:18 AM EDT [facility] Glucose, Whole Blood 161(H) 74 - 99 mg/dL LAB HEMATOLOGY METHOD 03/24/2025 12:18 AM EDT [facility] Ionized Calcium, Whole Blood 4.6 4.6 - 5.1 mg/dL LAB HEMATOLOGY METHOD 03/24/2025 12:18 AM EDT [facility] Lactate, Arterial, Whole Blood 1.1 0.5 - 1.6 mmol/L LAB HEMATOLOGY METHOD 03/24/2025 12:18 AM EDT [facility] Blood Arterial blood specimen / Unknown Arterial Puncture / Unknown 03/24/2025 12:08 AM EDT 03/24/2025 12:14 AM EDT Musa Rosado MD LAB BLOOD ORDERABLES Final R esult Performing Organization Address [facility]/ZIP Co de Phone Number [facility] [address] [place] [address] * (ABNORMAL) Phosphorus, Plasma (03/24/2025 12:07 AM EDT) Phosphorus, Plasma 2.1(L) 2.5 - 4.5 mg/dL 03/24/2025 12:44 AM EDT [facility] Blood Arterial blood specimen / Unknown Venipuncture / Unknown 03/24/2025 12:07 AM EDT 03/24/2025 12:16 AM EDT Musa Rosado MD LAB BLOOD ORDERABLES Final R esult Performing Organization Address [facility]/[place] Co de Phone Number [facility] [address] [place] [address] * Magnesium, Plasma (03/24/2025 12:07 AM EDT) Magnesium, Plasma 2.1 1.9 - 2.4 mg/dL 03/24/2025 12:44 AM EDT [facility] Blood Arterial blood specimen / Unknown Venipuncture / Unknown 03/24/2025 12:07 AM EDT 03/24/2025 12:16 AM EDT Musa Rosado MD LAB BLOOD ORDERABLES Final R esult Performing Organization Address City/[facility]/ZIP Co de Phone Number [facility] [address] [place] [address] * (ABNORMAL) CBC (03/24/2025 12:07 AM EDT) WBC Count 11.14(H) 3.70 - 10.30 10*3/uL LAB HEMATOLOGY METHOD 03/24/2025 12:26 AM EDT [facility] RBC Count 2.80(L) 4.60 - 6.10 10*6/uL LAB HEMATOLOGY METHOD 03/24/2025 12:26 AM EDT [facility] HGB 8.5(L) 13.7 - 17.5 g/dL LAB HEMATOLOGY METHOD 03/24/2025 12:26 AM EDT [facility] HCT 26.3(L) 40.0 - 51.0 % LAB HEMATOLOGY METHOD 03/24/2025 12:26 AM EDT [facility] Platelet Count 121(L) 155 - 369 10*3/uL LAB HEMATOLOGY METHOD 03/24/2025 12:26 AM EDT [facility] MCV 94 79 - 98 fL LAB HEMATOLOGY METHOD 03/24/2025 12:26 AM EDT [facility] MCH 30.4 26.0 - 32.0 pg LAB HEMATOLOGY METHOD 03/24/2025 12:26 AM EDT [facility] MCHC 32.3 30.7 - 35.5 g/dL LAB HEMATOLOGY METHOD 03/24/2025 12:26 AM EDT [facility] RDW 14.1 11.5 - 14.5 % LAB HEMATOLOGY METHOD 03/24/2025 12:26 AM EDT [facility] MPV 11.4 8.8 - 12.5 fL LAB HEMATOLOGY METHOD 03/24/2025 12:26 AM EDT [facility] nRBC 0.0 <=0.0 per 100 WBCs LAB HEMATOLOGY METHOD 03/24/2025 12:26 AM EDT [facility] Blood Arterial blood specimen / Unknown Venipuncture / Unknown 03/24/2025 12:07 AM EDT 03/24/2025 12:17 AM EDT us Musa Rosado MD LAB BLOOD ORDERABLES Final R esult [facility] [address] [place] [address] * (ABNORMAL) Basic metabolic panel (03/24/2025 12:07 AM EDT) [facility] Glucose, Plasma 164(H) 74 - 99 mg/dL 03/24/2025 12:44 AM EDT [facility] BUN, Plasma 21 7 - 21 mg/dL 03/24/2025 12:44 AM EDT [facility] Creatinine, Plasma 1.13 0.70 - 1.20 mg/dL 03/24/2025 12:44 AM EDT [facility] BUN/Creatinine Ratio 03/24/2025 12:44 AM EDT [facility] Sodium, Plasma 137 136 - 145 mmol/L 03/24/2025 12:44 AM EDT [facility] Potassium, Plasma 4.4 3.6 - 4.9 mmol/L 03/24/2025 12:44 AM EDT [facility] Chloride, Plasma 104 97 - 107 mmol/L 03/24/2025 12:44 AM EDT [facility] CO2, Plasma 25 22 - 29 mmol/L 03/24/2025 12:44 AM EDT [facility] Anion Gap 8 6 - 16 mmol/L 03/24/2025 12:44 AM EDT [facility] Total Calcium, Plasma 8.4(L) 8.9 - 10.2 mg/dL 03/24/2025 12:44 AM EDT [facility] eGFRcr 82.7 mL/min/1.7 3m*2 03/24/2025 12:44 AM EDT [facility] Comment:Reported eGFRcr in m L/min/1.73m2 is based the CKD-EPI 2020 equation that does not use a race coefficient. Blood Arterial blood specimen / Unknown Venipuncture / Unknown 03/24/2025 12:07 AM EDT 03/24/2025 12:16 AM EDT us Musa Rosado MD LAB BLOOD ORDERABLES Final R esult [facility] [address] [place] [address] * (ABNORMAL) POCT glucose meter (03/23/2025 9:43 PM EDT) POCT Glucose 176(H) 74 - 99 mg/dL 03/23/2025 9:44 PM EDT [facility] Comment:Accuracy of a glucos e result obtained from a capillary whole blood specimen relies upon adequate, non-compromised capillary blood flow. If the capillary glucose result is not consistent with the patient's clinical signs and symptoms, glucose testing should be repeated with either an arterial or venous sample on the glucometer or sent to the main labortory for testing. Comment 03/23/2025 9:44 PM EDT [facility] Assistant Construction Superintendent ID Yuri Diggs 03/23/2025 9:44 PM EDT [facility] LAB Device ID [id number] 03/23/2025 9:44 PM EDT [facility] Specimen Type POC Capillary 03/23/2025 9:44 PM EDT [facility] Blood Capillary blood specimen / Unknown 03/23/2025 9:43 PM EDT 03/23/2025 9:44 PM EDT Musa Rosado MD LAB POINT OF CARE TE ST DOCKED DEVICE UNSOLICITED RESULTS Final Result Performing Organization Address City/State/[place] Co de Phone Number [facility] [address] [place] [address] * (ABNORMAL) POCT glucose meter (03/23/2025 7:55 PM EDT) [facility] POCT Glucose 140(H) 74 - 99 mg/dL 03/23/2025 7:57 PM EDT [facility] Comment:Accuracy of a glucos e result obtained from a capillary whole blood specimen relies upon adequate, non-compromised capillary blood flow. If the capillary glucose result is not consistent with the patient's clinical signs and symptoms, glucose testing should be repeated with either an arterial or venous sample on the glucometer or sent to the main labortory for testing. Comment 03/23/2025 7:57 PM EDT [facility] Assistant Construction Superintendent ID Yuri Diggs 03/23/2025 7:57 PM EDT [facility]ALTH[facility] LAB Device ID [id number] 03/23/2025 7:57 PM EDT [facility] Specimen Type POC Capillary 03/23/2025 7:57 PM EDT [facility] Blood Capillary blood specimen / Unknown 03/23/2025 7:55 PM EDT 03/23/2025 7:57 PM EDT us Musa Rosado MD LAB POINT OF CARE TE ST DOCKED DEVICE UNSOLICITED RESULTS Final Result [facility] [address] [place] [address] * (ABNORMAL) POCT glucose meter (03/23/2025 6:27 PM EDT) POCT Glucose 163(H) 74 - 99 mg/dL 03/23/2025 6:29 PM EDT [facility] Comment:Accuracy of a glucos e result obtained from a capillary whole blood specimen relies upon adequate, non-compromised capillary blood flow. If the capillary glucose result is not consistent with the patient's clinical signs and symptoms, glucose testing should be repeated with either an arterial or venous sample on the glucometer or sent to the main labortory for testing. Comment 03/23/2025 6:29 PM EDT [facility] Assistant Construction Superintendent ID Jose Alberto Collins 03/23/2025 6:29 PM EDT HEALTHCARE LAB Device ID [id number] 03/23/2025 6:29 PM EDT [facility] Specimen Type POC Arterial 03/23/2025 6:29 PM EDT [facility] Blood Arterial blood specimen / Unknown 03/23/2025 6:27 PM EDT 03/23/2025 6:29 PM EDT us Musa Rosado MD LAB POINT OF CARE TE ST DOCKED DEVICE UNSOLICITED RESULTS Final Result Performing Organization Address City/[facility]/ZIP Co de Phone Number [facility] [address] [place] [address] * (ABNORMAL) POCT glucose meter (03/23/2025 4:12 PM EDT) POCT Glucose 159(H) 74 - 99 mg/dL 03/23/2025 4:14 PM EDT [facility] Comment:Accuracy of a glucos e result obtained from a capillary whole blood specimen relies upon adequate, non-compromised capillary blood flow. If the capillary glucose result is not consistent with the patient's clinical signs and symptoms, glucose testing should be repeated with either an arterial or venous sample on the glucometer or sent to the main labortory for testing. Comment 03/23/2025 4:14 PM EDT [facility] Assistant Construction Superintendent ID Jose Alberto Collins 03/23/2025 4:14 PM EDT [facility]ALTH[facility] LAB Device ID [id number] 03/23/2025 4:14 PM EDT [facility] Specimen Type POC Arterial 03/23/2025 4:14 PM EDT [facility] Blood Arterial blood specimen / Unknown 03/23/2025 4:12 PM EDT 03/23/2025 4:14 PM EDT Musa Rosado MD LAB POINT OF CARE TE ST DOCKED DEVICE UNSOLICITED RESULTS Final Result Performing Organization Address City/[facility]/[place] Co de Phone Number [facility] [address] [place] [address] * (ABNORMAL) POCT glucose meter (03/23/2025 1:57 PM EDT) [facility] POCT Glucose 129(H) 74 - 99 mg/dL 03/23/2025 1:58 PM EDT [facility] Comment:Accuracy of a glucos e result obtained from a capillary whole blood specimen relies upon adequate, non-compromised capillary blood flow. If the capillary glucose result is not consistent with the patient's clinical signs and symptoms, glucose testing should be repeated with either an arterial or venous sample on the glucometer or sent to the main labortory for testing. Comment 03/23/2025 1:58 PM EDT [facility] Assistant Construction Superintendent ID Jose Alberto Collins 03/23/2025 1:58 PM EDT [facility] LAB Device ID [id number] 03/23/2025 1:58 PM EDT [facility] Specimen Type POC Arterial 03/23/2025 1:58 PM EDT [facility] Blood Arterial blood specimen / Unknown 03/23/2025 1:57 PM EDT 03/23/2025 1:58 PM EDT Musa Roasdo MD LAB POINT OF CARE TE ST DOCKED DEVICE UNSOLICITED RESULTS Final Result Performing Organization Address City/[facility]/[place] Co de Phone Number [facility] [address] [place] [address] * [place] CRITICAL CARE, E/M 30-74 MINUTES (03/23/2025 12:34 PM EDT) Narrative Krunal Galdamez MD - 03/23/2025 12:34 PM EDT Krunal Galdamez MD 03/23/2025 3:01 PM Critical Care Performed by: Krunal Galdamez MD Authorized by: Krunal Galdamez MD Critical care provider statement: Critical care time (minutes): 38 Critical care time was exclusive of: Separately billable procedures and treating other patients and teaching time Critical care was time spent personally by me on the following activities: Development of treatment plan with patient or surrogate, ordering and performing treatments and interventions, discussions with consultants, ordering and review of laboratory studies, discussions with primary provider, ordering and review of radiographic studies, evaluation of patient's response to treatment and examination of patient Critical care statement: I saw and evaluated the patient with the resident/ fellow. I discussed the case with the resident/ fellow and agree with the findings and plan as documented. us Krunal Galdamez MD IN CLINIC/BEDSIDE ORDERABLES Final Result * (ABNORMAL) POCT glucose meter (03/23/2025 11:59 AM EDT) [facility] POCT Glucose 126(H) 74 - 99 mg/dL 03/23/2025 12:00 PM EDT [facility] Comment:Accuracy of a glucos e result obtained from a capillary whole blood specimen relies upon adequate, non-compromised capillary blood flow. If the capillary glucose result is not consistent with the patient's clinical signs and symptoms, glucose testing should be repeated with either an arterial or venous sample on the glucometer or sent to the main labortory for testing. Comment 03/23/2025 12:00 PM EDT [facility] Assistant Construction Superintendent ID Jose Alberto Collins 03/23/2025 12:00 PM EDT [facility] Device ID [id number] 03/23/2025 12:00 PM EDT [facility] Specimen Type POC Arterial 03/23/2025 12:00 PM EDT [facility] Blood Arterial blood specimen / Unknown 03/23/2025 11:59 AM EDT 03/23/2025 12:00 PM EDT us Musa Rosado MD LAB POINT OF CARE TE ST DOCKED DEVICE UNSOLICITED RESULTS Final Result [facility] [address] [place] [address] * (ABNORMAL) POCT glucose meter (03/23/2025 10:06 AM EDT) [facility] POCT Glucose 143(H) 74 - 99 mg/dL 03/23/2025 10:07 AM EDT [facility] Comment:Accuracy of a glucos e result obtained from a capillary whole blood specimen relies upon adequate, non-compromised capillary blood flow. If the capillary glucose result is not consistent with the patient's clinical signs and symptoms, glucose testing should be repeated with either an arterial or venous sample on the glucometer or sent to the main labortory for testing. Comment 03/23/2025 10:07 AM EDT [facility]ALTH[facility] Assistant Construction Superintendent ID Jose Alberto Collins 03/23/2025 10:07 AM EDT [facility]ALTH[facility]ARE LAB Device ID [id number] 03/23/2025 10:07 AM EDT [facility] Specimen Type POC Arterial 03/23/2025 10:07 AM EDT [facility] Blood Arterial blood specimen / Unknown 03/23/2025 10:06 AM EDT 03/23/2025 10:07 AM EDT Musa Rosado MD LAB POINT OF CARE TE ST DOCKED DEVICE UNSOLICITED RESULTS Final Result [facility] [address] [place] [address] * (ABNORMAL) POCT glucose meter (03/23/2025 8:01 AM EDT) [facility] POCT Glucose 142(H) 74 - 99 mg/dL 03/23/2025 8:03 AM EDT [facility] Comment:Accuracy of a glucos e result obtained from a capillary whole blood specimen relies upon adequate, non-compromised capillary blood flow. If the capillary glucose result is not consistent with the patient's clinical signs and symptoms, glucose testing should be repeated with either an arterial or venous sample on the glucometer or sent to the main labortory for testing. Comment 03/23/2025 8:03 AM EDT [facility] Assistant Construction Superintendent ID Jose Alberto Collins 03/23/2025 8:03 AM EDT HEALTHCARE LAB Device ID [id number] 03/23/2025 8:03 AM EDT [facility] Specimen Type POC Arterial 03/23/2025 8:03 AM EDT [facility] Blood Arterial blood specimen / Unknown 03/23/2025 8:01 AM EDT 03/23/2025 8:03 AM EDT Musa Rosado MD LAB POINT OF CARE TE ST DOCKED DEVICE UNSOLICITED RESULTS Final Result [facility] [address] [place] [address] * (ABNORMAL) Blood gas panel, arterial (03/23/2025 6:18 AM EDT) pH, Arterial 7.39 7.35 - 7.45 LAB HEMATOLOGY METHOD 03/23/2025 6:31 AM EDT [facility] pCO2, Arterial 41 32 - 45 mmHg LAB HEMATOLOGY METHOD 03/23/2025 6:31 AM EDT [facility] pO2, Arterial 75(L) 83 - 108 mmHg LAB HEMATOLOGY METHOD 03/23/2025 6:31 AM EDT [facility] SO2, Measured, Arterial 94 94 - 98 % LAB HEMATOLOGY METHOD 03/23/2025 6:31 AM EDT [facility] Base Excess, Arterial -0.2 -2.0 - 3.0 mmol/L LAB HEMATOLOGY METHOD 03/23/2025 6:31 AM EDT [facility] Bicarbonate, Calculated, Arterial 25 22 - 26 mmol/L LAB HEMATOLOGY METHOD 03/23/2025 6:31 AM EDT [facility] Hematocrit, Whole Blood 28.9(L) 40.0 - 51.0 % LAB HEMATOLOGY METHOD 03/23/2025 6:31 AM EDT [facility] Sodium, Whole Blood 141 136 - 145 mmol/L LAB HEMATOLOGY METHOD 03/23/2025 6:31 AM EDT [facility] Potassium, Whole Blood 4.1 3.6 - 4.9 mmol/L LAB HEMATOLOGY METHOD 03/23/2025 6:31 AM EDT [facility] Chloride, Whole Blood 108(H) 97 - 107 mmol/L LAB HEMATOLOGY METHOD 03/23/2025 6:31 AM EDT [facility] Glucose, Whole Blood 162(H) 74 - 99 mg/dL LAB HEMATOLOGY METHOD 03/23/2025 6:31 AM EDT [facility] Ionized Calcium, Whole Blood 4.4(L) 4.6 - 5.1 mg/dL LAB HEMATOLOGY METHOD 03/23/2025 6:31 AM EDT [facility] Lactate, Arterial, Whole Blood 1.9(H) 0.5 - 1.6 mmol/L LAB HEMATOLOGY METHOD 03/23/2025 6:31 AM EDT [facility] Blood Arterial blood specimen / Unknown Arterial Puncture / Unknown 03/23/2025 6:18 AM EDT 03/23/2025 6:27 AM EDT us Musa Rosado MD LAB BLOOD ORDERABLES Final R esult [facility] [address] [place] [address] * (ABNORMAL) POCT glucose meter (03/23/2025 6:11 AM EDT) POCT Glucose 154(H) 74 - 99 mg/dL 03/23/2025 6:13 AM EDT [facility] Comment:Accuracy of a glucos e result obtained from a capillary whole blood specimen relies upon adequate, non-compromised capillary blood flow. If the capillary glucose result is not consistent with the patient's clinical signs and symptoms, glucose testing should be repeated with either an arterial or venous sample on the glucometer or sent to the main labortory for testing. Comment 03/23/2025 6:13 AM EDT [facility] Assistant Construction Superintendent ID Piya, Ojaswi 03/23/2025 6:13 AM EDT [facility] Device ID [id number] 03/23/2025 6:13 AM EDT [facility] Specimen Type POC Arterial 03/23/2025 6:13 AM EDT [facility] Blood Arterial blood specimen / Unknown 03/23/2025 6:11 AM EDT 03/23/2025 6:13 AM EDT us Musa Rosado MD LAB POINT OF CARE TE ST DOCKED DEVICE UNSOLICITED RESULTS Final Result Performing Organization Address City/[facility]/ZIP Co de Phone Number [facility] [address] [place] [address] * ECG Adult (03/23/2025 4:28 AM EDT) Pathologist [facility] EKG DIAGNOSIS CLASS Abnormal MUSE ECG Ventricular Rate 77 BPM MUSE ECG Atrial Rate 77 BPM MUSE ECG TN Interval 150 ms MUSE ECG QRSD Interval 78 ms MUSE ECG QT Interval 366 ms MUSE ECG QTC Interval 414 ms MUSE ECG P [place] 49 degrees MUSE ECG R [place] -7 degrees MUSE ECG T Wave [place] -4 degrees MUSE ECG Diagnosis Normal sinus rhythm MUSE ECG Diagnosis ST elevation, consider early repolarization , pericarditis, or injury MUSE ECG Diagnosis Nonspecific T wave abnormality MUSE ECG Diagnosis Need clinical information and correlation MUSE ECG Diagnosis MUSE ECG Diagnosis Confirmed by Jarett Steen ([id number]) on 03/23/2025 8:36:37 AM MUSE ECG 03/23/2025 4:28 AM EDT 03/23/2025 8:36 AM EDT Musa Rosado MD ECG ORDERABLES Final Result Performing Organization Address [facility]/[place] Co de Phone Number MUSE ECG * (ABNORMAL) POCT glucose meter (03/23/2025 3:59 AM EDT) [facility] POCT Glucose 162(H) 74 - 99 mg/dL 03/23/2025 4:01 AM EDT [facility] Comment:Accuracy of a glucos e result obtained from a capillary whole blood specimen relies upon adequate, non-compromised capillary blood flow. If the capillary glucose result is not consistent with the patient's clinical signs and symptoms, glucose testing should be repeated with either an arterial or venous sample on the glucometer or sent to the main labortory for testing. Comment 03/23/2025 4:01 AM EDT [facility] Assistant Construction Superintendent ID [place] Ojaswi 03/23/2025 4:01 AM EDT [facility] Device ID [id number] 03/23/2025 4:01 AM EDT [facility] Specimen Type POC Arterial 03/23/2025 4:01 AM EDT [facility] Blood Arterial blood specimen / Unknown 03/23/2025 3:59 AM EDT 03/23/2025 4:01 AM EDT us Musa Rosado MD LAB POINT OF CARE TE ST DOCKED DEVICE UNSOLICITED RESULTS Final Result Performing Organization Address City/[facility]/ZIP Co de Phone Number [facility] [address] [place] [address] * Phosphorus, Plasma (03/23/2025 3:56 AM EDT) Phosphorus, Plasma 3.7 2.5 - 4.5 mg/dL 03/23/2025 4:40 AM EDT [facility] Blood Arterial blood specimen / Unknown Arterial Puncture / Unknown 03/23/2025 3:56 AM EDT 03/23/2025 4:12 AM EDT us Musa Rosado MD LAB BLOOD ORDERABLES Final R esult Performing Organization Address City/[facility]/ZIP Co de Phone Number [facility] [address] [place] [address] * Magnesium, Plasma (03/23/2025 3:56 AM EDT) Magnesium, Plasma 2.2 1.9 - 2.4 mg/dL 03/23/2025 4:40 AM EDT [facility] Blood Arterial blood specimen / Unknown Arterial Puncture / Unknown 03/23/2025 3:56 AM EDT 03/23/2025 4:12 AM EDT us Musa Rosado MD LAB BLOOD ORDERABLES Final R esult Performing Organization Address City/[facility]/ZIP Co de Phone Number [facility] [address] [place] [address] * (ABNORMAL) Basic metabolic panel (03/23/2025 3:56 AM EDT) Glucose, Plasma 159(H) 74 - 99 mg/dL 03/23/2025 4:40 AM EDT [facility] BUN, Plasma 18 7 - 21 mg/dL 03/23/2025 4:40 AM EDT [facility] Creatinine, Plasma 1.09 0.70 - 1.20 mg/dL 03/23/2025 4:40 AM EDT [facility] BUN/Creatinine Ratio 17 03/23/2025 4:40 AM EDT [facility] Sodium, Plasma 140 136 - 145 mmol/L 03/23/2025 4:40 AM EDT [facility] Potassium, Plasma 4.2 3.6 - 4.9 mmol/L 03/23/2025 4:40 AM EDT [facility] Chloride, Plasma 109(H) 97 - 107 mmol/L 03/23/2025 4:40 AM EDT [facility] CO2, Plasma 22 22 - 29 mmol/L 03/23/2025 4:40 AM EDT [facility] Anion Gap 9 6 - 16 mmol/L 03/23/2025 4:40 AM EDT [facility] Total Calcium, Plasma 8.4(L) 8.9 - 10.2 mg/dL 03/23/2025 4:40 AM EDT [facility] eGFRcr 86.4 mL/min/1.7 3m*2 03/23/2025 4:40 AM EDT [facility] Comment:Reported eGFRcr in m L/min/1.73m2 is based the CKD-EPI 2020 equation that does not use a race coefficient. Blood Arterial blood specimen / Unknown Arterial Puncture / Unknown 03/23/2025 3:56 AM EDT 03/23/2025 4:12 AM EDT us Musa Rosado MD LAB BLOOD ORDERABLES Final R esult [facility] [address] [place] [address] * (ABNORMAL) Blood gas, arterial (03/23/2025 3:56 AM EDT) pH, Arterial 7.40 7.35 - 7.45 LAB HEMATOLOGY METHOD 03/23/2025 4:11 AM EDT [facility] pCO2, Arterial 40 32 - 45 mmHg LAB HEMATOLOGY METHOD 03/23/2025 4:11 AM EDT [facility] pO2, Arterial 67(L) 83 - 108 mmHg LAB HEMATOLOGY METHOD 03/23/2025 4:11 AM EDT [facility] SO2, Measured, Arterial 92(L) 94 - 98 % LAB HEMATOLOGY METHOD 03/23/2025 4:11 AM EDT [facility] Base Excess, Arterial 0.0 -2.0 - 3.0 mmol/L LAB HEMATOLOGY METHOD 03/23/2025 4:11 AM EDT [facility] Bicarbonate, Calculated, Arterial 25 22 - 26 mmol/L LAB HEMATOLOGY METHOD 03/23/2025 4:11 AM EDT [facility] Hematocrit, Whole Blood 29.5(L) 40.0 - 51.0 % LAB HEMATOLOGY METHOD 03/23/2025 4:11 AM EDT [facility] Sodium, Whole Blood 142 136 - 145 mmol/L LAB HEMATOLOGY METHOD 03/23/2025 4:11 AM EDT [facility] Potassium, Whole Blood 4.1 3.6 - 4.9 mmol/L LAB HEMATOLOGY METHOD 03/23/2025 4:11 AM EDT [facility] Chloride, Whole Blood 108(H) 97 - 107 mmol/L LAB HEMATOLOGY METHOD 03/23/2025 4:11 AM EDT [facility] Glucose, Whole Blood 154(H) 74 - 99 mg/dL LAB HEMATOLOGY METHOD 03/23/2025 4:11 AM EDT [facility] Ionized Calcium, Whole Blood 4.4(L) 4.6 - 5.1 mg/dL LAB HEMATOLOGY METHOD 03/23/2025 4:11 AM EDT [facility] Lactate, Arterial, Whole Blood 1.8(H) 0.5 - 1.6 mmol/L LAB HEMATOLOGY METHOD 03/23/2025 4:11 AM EDT [facility] Blood Arterial blood specimen / Unknown Arterial Puncture / Unknown 03/23/2025 3:56 AM EDT 03/23/2025 4:09 AM EDT us Musa Rosado MD LAB BLOOD ORDERABLES Final R esult [facility] [address] [place] [address] * Potassium, Plasma (03/23/2025 3:56 AM EDT) Potassium, Plasma 4.2 3.6 - 4.9 mmol/L 03/23/2025 4:40 AM EDT [facility] Blood Arterial blood specimen / Unknown Arterial Puncture / Unknown 03/23/2025 3:56 AM EDT 03/23/2025 4:12 AM EDT us Musa Rosado MD LAB BLOOD ORDERABLES Final R esult [facility] [address] [place] [address] * (ABNORMAL) Blood gas panel with oximetry, mixed venous (03/23/2025 3:53 AM EDT) pH, Mixed Venous 7.37 7.32 - 7.43 LAB HEMATOLOGY METHOD 03/23/2025 4:11 AM EDT [facility] pCO2, Mixed Venous 46 40 - 55 mmHg LAB HEMATOLOGY METHOD 03/23/2025 4:11 AM EDT [facility] pO2, Mixed Venous 34 25 - 40 mmHg LAB HEMATOLOGY METHOD 03/23/2025 4:11 AM EDT [facility] SO2, Measured, Mixed Venous 63(L) 65 - 80 % LAB HEMATOLOGY METHOD 03/23/2025 4:11 AM EDT [facility] Bicarbonate, Calculated, Mixed Venous 26 22 - 26 mmol/L LAB HEMATOLOGY METHOD 03/23/2025 4:11 AM EDT [facility] Base Excess, Mixed Venous 0.4 -2.0 - 3.0 mmol/L LAB HEMATOLOGY METHOD 03/23/2025 4:11 AM EDT [facility] Hematocrit, Whole Blood 30.3(L) 40.0 - 51.0 % LAB HEMATOLOGY METHOD 03/23/2025 4:11 AM EDT [facility] Sodium, Whole Blood 142 136 - 145 mmol/L LAB HEMATOLOGY METHOD 03/23/2025 4:11 AM EDT [facility] Potassium, Whole Blood 4.0 3.6 - 4.9 mmol/L LAB HEMATOLOGY METHOD 03/23/2025 4:11 AM EDT [facility] Chloride, Whole Blood 109(H) 97 - 107 mmol/L LAB HEMATOLOGY METHOD 03/23/2025 4:11 AM EDT [facility] Ionized Calcium, Whole Blood 4.4(L) 4.6 - 5.1 mg/dL LAB HEMATOLOGY METHOD 03/23/2025 4:11 AM EDT [facility] Glucose, Whole Blood 152(H) 74 - 99 mg/dL LAB HEMATOLOGY METHOD 03/23/2025 4:11 AM EDT [facility] Oxyhemoglobin, Mixed Venous, Whole Blood 61.7 40.0 - 70.0 % LAB HEMATOLOGY METHOD 03/23/2025 4:11 AM EDT [facility] Hemoglobin Reduced, Mixed Venous, Whole Blood 36.7 % LAB HEMATOLOGY METHOD 03/23/2025 4:11 AM EDT [facility] Total Hemoglobin, Mixed Venous, Whole Blood 9.9(L) 13.7 - 17.5 g/dL LAB HEMATOLOGY METHOD 03/23/2025 4:11 AM EDT [facility] Blood Mixed venous blood specimen / Unknown Venipuncture / Unknown 03/23/2025 3:53 AM EDT 03/23/2025 4:09 AM EDT us Musa Rosado MD LAB BLOOD ORDERABLES Final R esult Performing Organization Address City/State/[place] Co de Phone Number [facility] [address] [place] [address] * ECG Adult - POD 1 (03/23/2025 2:49 AM EDT) EKG DIAGNOSIS CLASS Abnormal MUSE ECG Ventricular Rate 76 BPM MUSE ECG Atrial Rate 76 BPM MUSE ECG TN Interval 118 ms MUSE ECG QRSD Interval 80 ms MUSE ECG QT Interval 362 ms MUSE ECG QTC Interval 407 ms MUSE ECG P [place] 46 degrees MUSE ECG R [place] -11 degrees MUSE ECG T Wave [place] -15 degrees MUSE ECG Diagnosis Poor data quality, interpretation may be adversely affected MUSE ECG Diagnosis Poor data quality MUSE ECG Diagnosis narrow complex rhythm possibly sinus MUSE ECG Diagnosis Leftward axis MUSE ECG Diagnosis ST elevation, consider early repolarization, pericarditis, or injury MUSE ECG Diagnosis Nonspecific T wave abnormality MUSE ECG Diagnosis Abnormal ECG MUSE ECG Diagnosis Recommend repeat ECG MUSE ECG Diagnosis Confirmed by Jarett Steen ([id number]) on 03/23/2025 8:12:41 AM MUSE ECG 03/23/2025 2:49 AM EDT 03/23/2025 8:12 AM EDT us Musa Rosado MD ECG ORDERABLES Final Result [facility] ECG * XR Chest 1 View (03/23/2025 2:43 AM EDT) Anatomical Region Laterality Modality Chest Digital Radiogra phy Impressions 03/23/2025 6:09 AM EDT Increased basilar atelectasis particularly on the left. Possible small left pleural effusion. CRITICAL RESULT: No. COMMUNICATION: Per this written report. Drafted by Maryjane Kay MD on 03/23/2025 6:08 AM Final report signed by Maryjane Kay MD on 03/23/2025 6:09 AM Narrative 03/23/2025 6:09 AM EDT CLINICAL INDICATION: Post-Op Cardiac Surgery TECHNIQUE: XR CHEST 1 VIEW COMPARISON: 03/22/2025 FINDINGS: Interval extubation. Support hardware otherwise stable. Increased basilar atelectasis particularly on the left. Possible small left pleural effusion. Stable heart size. Vascular congestion. Procedure Note Maryjane Kay MD - 03/23/2025 CLINICAL INDICATION: Post-Op Cardiac Surgery TECHNIQUE: XR CHEST 1 VIEW COMPARISON: 03/22/2025 FINDINGS: Interval extubation. Support hardware otherwise stable. Increased basilaratelectasis particularly on the left. Possible small left pleuraleffusion. Stable heart size. Vascular congestion. IMPRESSION: Increased basilar atelectasis particularly on the left. Possible smallleft pleural effusion. CRITICAL RESULT: No. COMMUNICATION: Per this written report. Drafted by Maryjane Kay MD on 03/23/2025 6:08 AM Final report signed by Maryjane Kay MD on 03/23/2025 6:09 AM Musa Rosado MD IMG XR PROCEDURES Final Resu lt * (ABNORMAL) POCT glucose meter (03/23/2025 2:03 AM EDT) [facility] POCT Glucose 164(H) 74 - 99 mg/dL 03/23/2025 2:05 AM EDT [facility] Comment:Accuracy of a glucos e result obtained from a capillary whole blood specimen relies upon adequate, non-compromised capillary blood flow. If the capillary glucose result is not consistent with the patient's clinical signs and symptoms, glucose testing should be repeated with either an arterial or venous sample on the glucometer or sent to the main labortory for testing. Comment 03/23/2025 2:05 AM EDT [facility] Assistant Construction Superintendent ID Deangelo Haynesswi 03/23/2025 2:05 AM EDT [facility] Device ID [id number] 03/23/2025 2:05 AM EDT [facility] Specimen Type POC Arterial 03/23/2025 2:05 AM EDT [facility] Blood Arterial blood specimen / Unknown 03/23/2025 2:03 AM EDT 03/23/2025 2:05 AM EDT us Musa Rosado MD LAB POINT OF CARE TE ST DOCKED DEVICE UNSOLICITED RESULTS Final Result Performing Organization Address City/[facility]/ZIP Co de Phone Number [facility] [address] [place] [address] * Potassium, Plasma (03/23/2025 12:14 AM EDT) [facility] Potassium, Plasma 4.4 3.6 - 4.9 mmol/L 03/23/2025 12:[address] [facility] Blood Arterial blood specimen / Unknown Arterial Puncture / Unknown 03/23/2025 12:14 AM EDT 03/23/2025 12:30 AM EDT Musa Rosado MD LAB BLOOD ORDERABLES Final R esult [facility] [address] [place] [address] * (ABNORMAL) CBC (03/23/2025 12:13 AM EDT) [facility] WBC Count 11.73(H) 3.70 - 10.30 10*3/uL LAB HEMATOLOGY METHOD 03/23/2025 12:42 AM EDT [facility] RBC Count 3.28(L) 4.60 - 6.10 10*6/uL LAB HEMATOLOGY METHOD 03/23/2025 12:42 AM EDT [facility] HGB 10.1(L) 13.7 - 17.5 g/dL LAB HEMATOLOGY METHOD 03/23/2025 12:42 AM EDT [facility] HCT 29.6(L) 40.0 - 51.0 % LAB HEMATOLOGY METHOD 03/23/2025 12:42 AM EDT [facility] Platelet Count 138(L) 155 - 369 10*3/uL LAB HEMATOLOGY METHOD 03/23/2025 12:42 AM EDT [facility] MCV 90 79 - 98 fL LAB HEMATOLOGY METHOD 03/23/2025 12:42 AM EDT [facility] MCH 30.8 26.0 - 32.0 pg LAB HEMATOLOGY METHOD 03/23/2025 12:42 AM EDT [facility] MCHC 34.1 30.7 - 35.5 g/dL LAB HEMATOLOGY METHOD 03/23/2025 12:42 AM EDT [facility] RDW 13.7 11.5 - 14.5 % LAB HEMATOLOGY METHOD 03/23/2025 12:42 AM EDT [facility] MPV 11.3 8.8 - 12.5 fL LAB HEMATOLOGY METHOD 03/23/2025 12:42 AM EDT [facility] nRBC 0.0 <=0.0 per 100 WBCs LAB HEMATOLOGY METHOD 03/23/2025 12:42 AM EDT [facility] Blood Arterial blood specimen / Unknown Arterial Puncture / Unknown 03/23/2025 12:13 AM EDT 03/23/2025 12:32 AM EDT us Musa Rosado MD LAB BLOOD ORDERABLES Final R esult [facility] [address] [place] [address] * (ABNORMAL) Hematocrit (03/23/2025 12:13 AM EDT) [facility] HCT 29.6(L) 40.0 - 51.0 % LAB HEMATOLOGY METHOD 03/23/2025 12:42 AM EDT [facility] Blood Arterial blood specimen / Unknown Arterial Puncture / Unknown 03/23/2025 12:13 AM EDT 03/23/2025 12:32 AM EDT Musa Rosado MD LAB BLOOD ORDERABLES Final R esult [facility] [address] [place] [address] * (ABNORMAL) POCT glucose meter (03/23/2025 12:10 AM EDT) [facility] POCT Glucose 168(H) 74 - 99 mg/dL 03/23/2025 12:11 AM EDT [facility] Comment:Accuracy of a glucos e result obtained from a capillary whole blood specimen relies upon adequate, non-compromised capillary blood flow. If the capillary glucose result is not consistent with the patient's clinical signs and symptoms, glucose testing should be repeated with either an arterial or venous sample on the glucometer or sent to the main labortory for testing. Comment 03/23/2025 12:11 AM EDT [facility] Assistant Construction Superintendent ID Kelly Haynes 03/23/2025 12:11 AM EDT [facility] LAB Device ID [id number] 03/23/2025 12:11 AM EDT [facility] Specimen Type POC Arterial 03/23/2025 12:11 AM EDT [facility] Blood Arterial blood specimen / Unknown 03/23/2025 12:10 AM EDT 03/23/2025 12:11 AM EDT Musa Rosado MD LAB POINT OF CARE TE ST DOCKED DEVICE UNSOLICITED RESULTS Final Result Performing Organization Address City/[facility]/ZIP Co de Phone Number [facility] [address] [place] [address] * (ABNORMAL) Blood gas, arterial (03/23/2025 12:03 AM EDT) [facility] pH, Arterial 7.40 7.35 - 7.45 LAB HEMATOLOGY METHOD 03/23/2025 12:29 AM EDT [facility] pCO2, Arterial 38 32 - 45 mmHg LAB HEMATOLOGY METHOD 03/23/2025 12:29 AM EDT [facility] pO2, Arterial 158(H) 83 - 108 mmHg LAB HEMATOLOGY METHOD 03/23/2025 12:29 AM EDT [facility] SO2, Measured, Arterial 97 94 - 98 % LAB HEMATOLOGY METHOD 03/23/2025 12:29 AM EDT [facility] Base Excess, Arterial -0.9 -2.0 - 3.0 mmol/L LAB HEMATOLOGY METHOD 03/23/2025 12:29 AM EDT [facility] Bicarbonate, Calculated, Arterial 24 22 - 26 mmol/L LAB HEMATOLOGY METHOD 03/23/2025 12:29 AM EDT [facility] Hematocrit, Whole Blood 31.2(L) 40.0 - 51.0 % LAB HEMATOLOGY METHOD 03/23/2025 12:29 AM EDT [facility] Sodium, Whole Blood 141 136 - 145 mmol/L LAB HEMATOLOGY METHOD 03/23/2025 12:29 AM EDT [facility] Potassium, Whole Blood 4.2 3.6 - 4.9 mmol/L LAB HEMATOLOGY METHOD 03/23/2025 12:29 AM EDT [facility] Chloride, Whole Blood 110(H) 97 - 107 mmol/L LAB HEMATOLOGY METHOD 03/23/2025 12:29 AM EDT [facility] Glucose, Whole Blood 176(H) 74 - 99 mg/dL LAB HEMATOLOGY METHOD 03/23/2025 12:29 AM EDT [facility] Ionized Calcium, Whole Blood 4.4(L) 4.6 - 5.1 mg/dL LAB HEMATOLOGY METHOD 03/23/2025 12:29 AM EDT [facility] Lactate, Arterial, Whole Blood 2.5(H) 0.5 - 1.6 mmol/L LAB HEMATOLOGY METHOD 03/23/2025 12:29 AM EDT [facility] Blood Arterial blood specimen / Unknown Arterial Puncture / Unknown 03/23/2025 12:03 AM EDT 03/23/2025 12:24 AM EDT Musa Rosado MD LAB BLOOD ORDERABLES Final R esult Performing Organization Address City/[facility]/ZIP Co de Phone Number [facility] [address] [place] [address] * (ABNORMAL) POCT glucose meter (03/22/2025 10:59 PM EDT) [facility] POCT Glucose 181(H) 74 - 99 mg/dL 03/22/2025 11:00 PM EDT [facility] Comment:Accuracy of a glucos e result obtained from a capillary whole blood specimen relies upon adequate, non-compromised capillary blood flow. If the capillary glucose result is not consistent with the patient's clinical signs and symptoms, glucose testing should be repeated with either an arterial or venous sample on the glucometer or sent to the main labortory for testing. Comment 03/22/2025 11:00 PM EDT [facility] Assistant Construction Superintendent ID AyazlizKelly 03/22/2025 11:00 PM EDT [facility] Device ID [id number] 03/22/2025 11:00 PM EDT [facility] Specimen Type POC Arterial 03/22/2025 11:00 PM EDT [facility] Blood Arterial blood specimen / Unknown 03/22/2025 10:59 PM EDT 03/22/2025 11:00 PM EDT Musa Rosado MD LAB POINT OF CARE TE ST DOCKED DEVICE UNSOLICITED RESULTS Final Result Performing Organization Address [facility]/[place] Co de Phone Number [facility] [address] [place] [address] * (ABNORMAL) POCT glucose meter (03/22/2025 10:40 PM EDT) [facility] POCT Glucose 184(H) 74 - 99 mg/dL 03/22/2025 10:41 PM EDT [facility] Comment:Accuracy of a glucos e result obtained from a capillary whole blood specimen relies upon adequate, non-compromised capillary blood flow. If the capillary glucose result is not consistent with the patient's clinical signs and symptoms, glucose testing should be repeated with either an arterial or venous sample on the glucometer or sent to the main labortory for testing. Comment 03/22/2025 10:41 PM EDT [facility] Assistant Construction Superintendent ID Kelly Haynes 03/22/2025 10:41 PM EDT [facility] Device ID [id number] 03/22/2025 10:41 PM EDT [facility] Specimen Type POC Arterial 03/22/2025 10:41 PM EDT [facility] Blood Arterial blood specimen / Unknown 03/22/2025 10:40 PM EDT 03/22/2025 10:41 PM EDT Musa Rosado MD LAB POINT OF CARE TE ST DOCKED DEVICE UNSOLICITED RESULTS Final Result Performing Organization Address City/[facility]/[place] Co de Phone Number [facility] [address] [place] [address] * (ABNORMAL) POCT glucose meter (03/22/2025 8:21 PM EDT) [facility] POCT Glucose 207(H) 74 - 99 mg/dL 03/22/2025 8:22 PM EDT [facility] Comment:Accuracy of a glucos e result obtained from a capillary whole blood specimen relies upon adequate, non-compromised capillary blood flow. If the capillary glucose result is not consistent with the patient's clinical signs and symptoms, glucose testing should be repeated with either an arterial or venous sample on the glucometer or sent to the main labortory for testing. Comment 03/22/2025 8:22 PM EDT [facility] Assistant Construction Superintendent ID Kelly Haynes 03/22/2025 8:22 PM EDT [facility] Device ID [id number] 03/22/2025 8:22 PM EDT [facility] Specimen Type POC Arterial 03/22/2025 8:22 PM EDT [facility] Blood Arterial blood specimen / Unknown 03/22/2025 8:21 PM EDT 03/22/2025 8:22 PM EDT Musa Rosado MD LAB POINT OF CARE TE ST DOCKED DEVICE UNSOLICITED RESULTS Final Result Performing Organization Address City/[facility]/ZIP Co de Phone Number [facility] [address] [place] [address] * (ABNORMAL) Blood gas, arterial (03/22/2025 8:17 PM EDT) pH, Arterial 7.37 7.35 - 7.45 LAB HEMATOLOGY METHOD 03/22/2025 8:29 PM EDT [facility] pCO2, Arterial 42 32 - 45 mmHg LAB HEMATOLOGY METHOD 03/22/2025 8:29 PM EDT [facility] pO2, Arterial 89 83 - 108 mmHg LAB HEMATOLOGY METHOD 03/22/2025 8:29 PM EDT [facility] SO2, Measured, Arterial 95 94 - 98 % LAB HEMATOLOGY METHOD 03/22/2025 8:29 PM EDT [facility] Base Excess, Arterial -0.9 -2.0 - 3.0 mmol/L LAB HEMATOLOGY METHOD 03/22/2025 8:29 PM EDT [facility] Bicarbonate, Calculated, Arterial 24 22 - 26 mmol/L LAB HEMATOLOGY METHOD 03/22/2025 8:29 PM EDT [facility] Hematocrit, Whole Blood 31.8(L) 40.0 - 51.0 % LAB HEMATOLOGY METHOD 03/22/2025 8:29 PM EDT [facility] Sodium, Whole Blood 141 136 - 145 mmol/L LAB HEMATOLOGY METHOD 03/22/2025 8:29 PM EDT [facility] Potassium, Whole Blood 4.1 3.6 - 4.9 mmol/L LAB HEMATOLOGY METHOD 03/22/2025 8:29 PM EDT [facility] Chloride, Whole Blood 110(H) 97 - 107 mmol/L LAB HEMATOLOGY METHOD 03/22/2025 8:29 PM EDT [facility] Glucose, Whole Blood 217(H) 74 - 99 mg/dL LAB HEMATOLOGY METHOD 03/22/2025 8:29 PM EDT [facility] Ionized Calcium, Whole Blood 4.4(L) 4.6 - 5.1 mg/dL LAB HEMATOLOGY METHOD 03/22/2025 8:29 PM EDT [facility] Lactate, Arterial, Whole Blood 2.1(H) 0.5 - 1.6 mmol/L LAB HEMATOLOGY METHOD 03/22/2025 8:29 PM EDT [facility] Blood Arterial blood specimen / Unknown Arterial Puncture / Unknown 03/22/2025 8:17 PM EDT 03/22/2025 8:27 PM EDT Musa Rosado MD LAB BLOOD ORDERABLES Final R esult Performing Organization Address [facility]/[place] [address] * (ABNORMAL) Phosphorus (03/22/2025 8:14 PM EDT) Phosphorus, Plasma 1.6(L) 2.5 - 4.5 mg/dL 03/22/2025 8:55 PM EDT [facility] Blood Arterial blood specimen / Unknown Arterial Puncture / Unknown 03/22/2025 8:14 PM EDT 03/22/2025 8:28 PM EDT Musa Rosado MD LAB BLOOD ORDERABLES Final R esult Performing Organization Address [facility]/[place] [phone] * (ABNORMAL) Hematocrit (03/22/2025 8:14 PM EDT) HCT 30.1(L) 40.0 - 51.0 % LAB HEMATOLOGY METHOD 03/22/2025 8:35 PM EDT [facility] Blood Arterial blood specimen / Unknown Arterial Puncture / Unknown 03/22/2025 8:14 PM EDT 03/22/2025 8:28 PM EDT Musa Rosado MD LAB BLOOD ORDERABLES Final R esult Performing Organization Address City/[facility]/ZIP Co de Phone Number [facility] [address] [place] [address] * (ABNORMAL) Hemoglobin (03/22/2025 8:14 PM EDT) HGB 10.4(L) 13.7 - 17.5 g/dL LAB HEMATOLOGY METHOD 03/22/2025 8:35 PM EDT [facility] Blood Arterial blood specimen / Unknown Arterial Puncture / Unknown 03/22/2025 8:14 PM EDT 03/22/2025 8:28 PM EDT us Musa Rosado MD LAB BLOOD ORDERABLES Final R esult Performing Organization Address City/[facility]/ZIP Co de Phone Number [facility] [address] [place] [address] * Potassium, Plasma (03/22/2025 8:14 PM EDT) Potassium, Plasma 4.2 3.6 - 4.9 mmol/L 03/22/2025 8:55 PM EDT [facility] Blood Arterial blood specimen / Unknown Arterial Puncture / Unknown 03/22/2025 8:14 PM EDT 03/22/2025 8:28 PM EDT us Musa Rosado MD LAB BLOOD ORDERABLES Final R esult Performing Organization Address [facility]/[place] Co de Phone Number [facility] [address] [place] [address] * (ABNORMAL) Blood gas panel, arterial (03/22/2025 5:44 PM EDT) pH, Arterial 7.36 7.35 - 7.45 LAB HEMATOLOGY METHOD 03/22/2025 5:55 PM EDT [facility] pCO2, Arterial 41 32 - 45 mmHg LAB HEMATOLOGY METHOD 03/22/2025 5:55 PM EDT [facility] pO2, Arterial 107 83 - 108 mmHg LAB HEMATOLOGY METHOD 03/22/2025 5:55 PM EDT [facility] SO2, Measured, Arterial 98 94 - 98 % LAB HEMATOLOGY METHOD 03/22/2025 5:55 PM EDT [facility] Base Excess, Arterial -2.2(L) -2.0 - 3.0 mmol/L LAB HEMATOLOGY METHOD 03/22/2025 5:55 PM EDT [facility] Bicarbonate, Calculated, Arterial 23 22 - 26 mmol/L LAB HEMATOLOGY METHOD 03/22/2025 5:55 PM EDT [facility] Hematocrit, Whole Blood 33.7(L) 40.0 - 51.0 % LAB HEMATOLOGY METHOD 03/22/2025 5:55 PM EDT [facility] Sodium, Whole Blood 142 136 - 145 mmol/L LAB HEMATOLOGY METHOD 03/22/2025 5:55 PM EDT [facility] Potassium, Whole Blood 4.1 3.6 - 4.9 mmol/L LAB HEMATOLOGY METHOD 03/22/2025 5:55 PM EDT [facility] Chloride, Whole Blood 111(H) 97 - 107 mmol/L LAB HEMATOLOGY METHOD 03/22/2025 5:55 PM EDT [facility] Glucose, Whole Blood 206(H) 74 - 99 mg/dL LAB HEMATOLOGY METHOD 03/22/2025 5:55 PM EDT [facility] Ionized Calcium, Whole Blood 4.3(L) 4.6 - 5.1 mg/dL LAB HEMATOLOGY METHOD 03/22/2025 5:55 PM EDT [facility] Lactate, Arterial, Whole Blood 2.3(H) 0.5 - 1.6 mmol/L LAB HEMATOLOGY METHOD 03/22/2025 5:55 PM EDT [facility] Blood Arterial blood specimen / Unknown Arterial Puncture / Unknown 03/22/2025 5:44 PM EDT 03/22/2025 5:53 PM EDT us Musa Rosado MD LAB BLOOD ORDERABLES Final R esult [facility] [address] [place] [address] * XR Chest 1 View (03/22/2025 4:46 PM EDT) Anatomical Region Laterality Modality Chest Digital Radiogra phy Impressions 03/22/2025 5:02 PM EDT Endotracheal tube tip 6.5 cm above the freddie. Hypoventilatory changes. Postsurgical mediastinum. CRITICAL RESULT: No. COMMUNICATION: Per this written report. Drafted by Carmencita Aponte MD on 03/22/2025 5:01 PM Final report signed by Carmencita Aponte MD on 03/22/2025 5:02 PM Narrative 03/22/2025 5:02 PM EDT CLINICAL INDICATION: Post-Op Cardiac Surgery TECHNIQUE: XR CHEST 1 VIEW COMPARISON: 03/21/2025 FINDINGS: Endotracheal tube tip 6.5 cm above the freddie. Right internal jugular approach [place]-Brea catheter with tip over the proximal right pulmonary artery. Mediastinal drain and bilateral chest tubes in place. Low lung volumes. Pulmonary vascular congestion. No pneumothorax. Interval median sternotomy and CABG. Procedure Note Carmencita Aponte MD - 03/22/2025 CLINICAL INDICATION: Post-Op Cardiac Surgery TECHNIQUE: XR CHEST 1 VIEW COMPARISON: 03/21/2025 FINDINGS: Endotracheal tube tip 6.5 cm above the freddie. Right internal jugularapproach [place]-Brea catheter with tip over the proximal right pulmonaryartery. Mediastinal drain and bilateral chest tubes in place. Low lungvolumes. Pulmonary vascular congestion. No pneumothorax. Interval mediansternotomy and CABG. IMPRESSION: Endotracheal tube tip 6.5 cm above the freddie. Hypoventilatory changes. Postsurgical mediastinum. CRITICAL RESULT: No. COMMUNICATION: Per this written report. Drafted by Carmencita Aponte MD on 03/22/2025 5:01 PM Final report signed by Carmencita Aponte MD on 03/22/2025 5:02 PM us Musa Rosado MD IMG XR PROCEDURES Final Resu lt * TN CRITICAL CARE, E/M 30-74 MINUTES (03/22/2025 4:38 PM EDT) Narrative Krunal Galdamez MD - 03/22/2025 4:38 PM EDT Krunal Galdamez MD 03/23/2025 7:29 AM Critical Care Performed by: Krunal Galdamez MD Authorized by: Krunal Galdamez MD Critical care provider statement: Critical care time (minutes): 39 Critical care time was exclusive of: Separately billable procedures and treating other patients and teaching time Critical care was time spent personally by me on the following activities: Development of treatment plan with patient or surrogate, ordering and performing treatments and interventions, discussions with consultants, ordering and review of laboratory studies, discussions with primary provider, ordering and review of radiographic studies, evaluation of patient's response to treatment, examination of patient and ventilator management Critical care statement: I saw and evaluated the patient with the resident/ fellow. I discussed the case with the resident/ fellow and agree with the findings and plan as documented. us Krunal Galdamez MD IN CLINIC/BEDSIDE ORDERABLES Final Result * ECG Adult - Upon Admissoin to CVICU (03/22/2025 4:10 PM EDT) EKG DIAGNOSIS CLASS Abnormal MUSE ECG Ventricular Rate 73 BPM MUSE ECG Atrial Rate 73 BPM MUSE ECG TN Interval 140 ms MUSE ECG QRSD Interval 86 ms MUSE ECG QT Interval 396 ms MUSE ECG QTC Interval 436 ms MUSE ECG P [place] 66 degrees MUSE ECG R [place] 26 degrees MUSE ECG T Wave [place] 52 degrees MUSE ECG Diagnosis Normal sinus rhythm MUSE ECG Diagnosis ST elevation, consider early repolarization , pericarditis, or injury MUSE ECG Diagnosis Need clinical information and correlation MUSE ECG Diagnosis MUSE ECG Diagnosis Confirmed by Jarett Steen ([id number]) on 03/22/2025 7:45:24 PM MUSE ECG 03/22/2025 4:10 PM EDT 03/22/2025 7:45 PM EDT us Musa Rosado MD ECG ORDERABLES Final Result MUSE ECG * (ABNORMAL) Blood gas, arterial - Post extubation (03/22/2025 3:52 PM EDT) pH, Arterial 7.35 7.35 - 7.45 LAB HEMATOLOGY METHOD 03/22/2025 4:33 PM EDT [facility] pCO2, Arterial 44 32 - 45 mmHg LAB HEMATOLOGY METHOD 03/22/2025 4:33 PM EDT [facility] pO2, Arterial 127(H) 83 - 108 mmHg LAB HEMATOLOGY METHOD 03/22/2025 4:33 PM EDT [facility] SO2, Measured, Arterial 99(H) 94 - 98 % LAB HEMATOLOGY METHOD 03/22/2025 4:33 PM EDT [facility] Base Excess, Arterial -1.9 -2.0 - 3.0 mmol/L LAB HEMATOLOGY METHOD 03/22/2025 4:33 PM EDT [facility] Bicarbonate, Calculated, Arterial 24 22 - 26 mmol/L LAB HEMATOLOGY METHOD 03/22/2025 4:33 PM EDT [facility] Hematocrit, Whole Blood 35.2(L) 40.0 - 51.0 % LAB HEMATOLOGY METHOD 03/22/2025 4:33 PM EDT [facility] Sodium, Whole Blood 142 136 - 145 mmol/L LAB HEMATOLOGY METHOD 03/22/2025 4:33 PM EDT [facility] Potassium, Whole Blood 3.8 3.6 - 4.9 mmol/L LAB HEMATOLOGY METHOD 03/22/2025 4:33 PM EDT [facility] Chloride, Whole Blood 112(H) 97 - 107 mmol/L LAB HEMATOLOGY METHOD 03/22/2025 4:33 PM EDT [facility] Glucose, Whole Blood 184(H) 74 - 99 mg/dL LAB HEMATOLOGY METHOD 03/22/2025 4:33 PM EDT [facility] Ionized Calcium, Whole Blood 4.4(L) 4.6 - 5.1 mg/dL LAB HEMATOLOGY METHOD 03/22/2025 4:33 PM EDT [facility] Lactate, Arterial, Whole Blood 2.6(H) 0.5 - 1.6 mmol/L LAB HEMATOLOGY METHOD 03/22/2025 4:33 PM EDT [facility] Blood Arterial blood specimen / Unknown Arterial Puncture / Unknown 03/22/2025 3:52 PM EDT 03/22/2025 4:31 PM EDT us Musa Rosado MD LAB BLOOD ORDERABLES Final R esult [facility] [address] [place] [address] * Denise auris Surveillance by PCR (03/22/2025 3:52 PM EDT) Denise auris PCR Result Not Detected Not Detected 03/23/2025 12:49 PM EDT [facility] Swab (Axilla and Groin) Non-blood Collection / Unknown 03/22/2025 3:52 PM EDT 03/22/2025 4:37 PM EDT Narrative [facility] - 03/23/2025 12:49 PM EDT This PCR assay was developed and its performance characteristics determined by [facility] as appropriate for clinical purposes. This assay has not been cleared or approved by the FDA, but is performed in a CLIA regulated laboratory that is qualified to perform high-complexity testing. us Musa Rosado MD LAB MICROBIOLOGY - GENERAL O RDERABLES Final Result Performing Organization Address [facility]/[place] Co de Phone Number [facility] [address] [place] [address] * Multi Drug Resistance Test (03/22/2025 3:52 PM EDT) Pathologist [facility] Culture No growth at day 1 03/24/2025 7:31 AM EDT [facility] Swab (Nares and Lisa Rectal) Non-blood Collection / Unknown 03/22/2025 3:52 PM EDT 03/22/2025 4:37 PM EDT Narrative [facility] - 03/24/2025 7:31 AM EDT This test was developed and its performance characteristics determined by the [facility]. Although the media is FDA-approved, it is not FDA-approved for all specimen types submitted. The FDA has determined that such clearance or approval is not necessary. This test is used for surveillance purposes. It should not be regarded as investigational or for research. The [facility] is certified under the Clinical Laboratory Improvement Amendments of 1988 (CLIA-88) as qualified to perform high complexity clinical laboratory testing. us Musa Rosado MD LAB MICROBIOLOGY - GENERAL O RDERABLES Final Result Performing Organization Address [facility]/[place] Co de Phone Number [facility] [address] [place] [address] * APTT (03/22/2025 3:52 PM EDT) Pathologist [facility] aPTT 28 25 - 35 sec LAB COAGULATION METHOD 03/22/2025 5:08 PM EDT [facility] Blood Venous blood specimen / Unknown Venipuncture / Unknown 03/22/2025 3:52 PM EDT 03/22/2025 4:45 PM EDT us Musa Rosado MD LAB BLOOD ORDERABLES Final R esult Performing Organization Address [facility]/ZIP Co de Phone Number [facility] [address] [place] [address] * (ABNORMAL) Protime-INR (03/22/2025 3:52 PM EDT) [facility] Signature Prothrombin Time 17.0(H) 12.0 - 14.3 sec LAB COAGULATION METHOD 03/22/2025 5:08 PM EDT [facility] INR 1.4(H) 0.9 - 1.1 LAB COAGULATION METHOD 03/22/2025 5:08 PM EDT [facility] Blood Venous blood specimen / Unknown Venipuncture / Unknown 03/22/2025 3:52 PM EDT 03/22/2025 4:45 PM EDT Narrative [facility] - 03/22/2025 5:08 PM EDT OPTIMAL INR RANGES FOR PATIENT ON ORAL ANTICOAGULANT THERAPY Prevention of venous thromboembolism INR 2.0 to 3.0 In patients with heart disease: Atrial fibrillation INR 2.0 to 3.0 Valvular heart disease INR 2.0 to 3.0 Tissue heart valves INR 2.0 to 3.0 Mechanical prosthetic valves INR 2.5 to 3.5 Prevention of recurrent OK INR 2.5 to 3.5 us Musa Rosado MD LAB BLOOD ORDERABLES Final R esult Performing Organization Address City/[facility]/ZIP Co de Phone Number [facility] [address] [place] [address] * (ABNORMAL) Phosphorus (03/22/2025 3:52 PM EDT) [facility] Phosphorus, Plasma 1.0(LL) 2.5 - 4.5 mg/dL 03/22/2025 5:13 PM EDT [facility] Blood Venous blood specimen / Unknown Venipuncture / Unknown 03/22/2025 3:52 PM EDT 03/22/2025 4:45 PM EDT us Musa Rosado MD LAB BLOOD ORDERABLES Final R esult [facility] [address] [place] [address] * (ABNORMAL) Magnesium (03/22/2025 3:52 PM EDT) Magnesium, Plasma 3.1(H) 1.9 - 2.4 mg/dL 03/22/2025 5:13 PM EDT [facility] Blood Venous blood specimen / Unknown Venipuncture / Unknown 03/22/2025 3:52 PM EDT 03/22/2025 4:45 PM EDT us Musa Rosado MD LAB BLOOD ORDERABLES Final R esult [facility] [address] [place] [address] * (ABNORMAL) Basic metabolic panel (03/22/2025 3:52 PM EDT) Glucose, Plasma 188(H) 74 - 99 mg/dL 03/22/2025 5:13 PM EDT [facility] BUN, Plasma 17 7 - 21 mg/dL 03/22/2025 5:13 PM EDT [facility] Creatinine, Plasma 1.19 0.70 - 1.20 mg/dL 03/22/2025 5:13 PM EDT [facility] BUN/Creatinine Ratio 14 03/22/2025 5:13 PM EDT [facility] Sodium, Plasma 142 136 - 145 mmol/L 03/22/2025 5:13 PM EDT [facility] Potassium, Plasma 4.1 3.6 - 4.9 mmol/L 03/22/2025 5:13 PM EDT [facility] Chloride, Plasma 111(H) 97 - 107 mmol/L 03/22/2025 5:13 PM EDT [facility] CO2, Plasma 21(L) 22 - 29 mmol/L 03/22/2025 5:13 PM EDT [facility] Anion Gap 10 6 - 16 mmol/L 03/22/2025 5:13 PM EDT [facility] Total Calcium, Plasma 7.7(L) 8.9 - 10.2 mg/dL 03/22/2025 5:13 PM EDT [facility] eGFRcr 77.7 mL/min/1.7 3m*2 03/22/2025 5:13 PM EDT [facility] Comment:Reported eGFRcr in m L/min/1.73m2 is based the CKD-EPI 2020 equation that does not use a race coefficient. Blood Venous blood specimen / Unknown Venipuncture / Unknown 03/22/2025 3:52 PM EDT 03/22/2025 4:45 PM EDT us Musa Rosado MD LAB BLOOD ORDERABLES Final R esult [facility] [address] [place] [address] * (ABNORMAL) CBC (03/22/2025 3:52 PM EDT) WBC Count 16.63(H) 3.70 - 10.30 10*3/uL LAB HEMATOLOGY METHOD 03/22/2025 4:48 PM EDT [facility] RBC Count 3.77(L) 4.60 - 6.10 10*6/uL LAB HEMATOLOGY METHOD 03/22/2025 4:48 PM EDT [facility] HGB 11.4(L) 13.7 - 17.5 g/dL LAB HEMATOLOGY METHOD 03/22/2025 4:48 PM EDT [facility] HCT 33.7(L) 40.0 - 51.0 % LAB HEMATOLOGY METHOD 03/22/2025 4:48 PM EDT [facility] Platelet Count 159 155 - 369 10*3/uL LAB HEMATOLOGY METHOD 03/22/2025 4:48 PM EDT [facility] MCV 89 79 - 98 fL LAB HEMATOLOGY METHOD 03/22/2025 4:48 PM EDT [facility] MCH 30.2 26.0 - 32.0 pg LAB HEMATOLOGY METHOD 03/22/2025 4:48 PM EDT [facility] MCHC 33.8 30.7 - 35.5 g/dL LAB HEMATOLOGY METHOD 03/22/2025 4:48 PM EDT [facility] RDW 13.4 11.5 - 14.5 % LAB HEMATOLOGY METHOD 03/22/2025 4:48 PM EDT [facility] MPV 11.0 8.8 - 12.5 fL LAB HEMATOLOGY METHOD 03/22/2025 4:48 PM EDT [facility] nRBC 0.0 <=0.0 per 100 WBCs LAB HEMATOLOGY METHOD 03/22/2025 4:48 PM EDT [facility] Blood Venous blood specimen / Unknown Venipuncture / Unknown 03/22/2025 3:52 PM EDT 03/22/2025 4:42 PM EDT us Musa Rosado MD LAB BLOOD ORDERABLES Final R esult [facility] [address] [place] [address] * (ABNORMAL) POCT arterial blood gas gem (03/22/2025 3:29 PM EDT) pH, Arterial 7.36 7.35 - 7.45 03/22/2025 3:41 PM EDT [facility] pCO2, Arterial 42 32 - 45 mm Hg 03/22/2025 3:41 PM EDT [facility] pO2, Arterial 150(H) 83 - 108 mm Hg 03/22/2025 3:41 PM EDT [facility] SO2, Arterial 98 94 - 98 % 03/22/2025 3:41 PM EDT [facility] Base Excess, Arterial -1.7 -2 - 3 mmol/L 03/22/2025 3:41 PM EDT [facility] HCO3, Arterial 23.7 22 - 26 mmol/L 03/22/2025 3:41 PM EDT [facility] Total Hemoglobin, Arterial, Whole Blood 11.2(L) 13.7 - 17.5 g/dL 03/22/2025 3:41 PM EDT [facility] Hematocrit, Arterial 34.0(L) 40 - 51.0 % 03/22/2025 3:41 PM EDT [facility] Sodium, Arterial 141 136 - 145 mmol/L 03/22/2025 3:41 PM EDT [facility] Potassium, Arterial 3.8 3.6 - 4.9 mmol/L 03/22/2025 3:41 PM EDT [facility] Chloride, Whole Blood 109(H) 97 - 107 mmol/L 03/22/2025 3:41 PM EDT [facility] Glucose, Arterial 192(H) 74 - 99 mg/dL 03/22/2025 3:41 PM EDT [facility] Ionized Calcium, Arterial 4.6 4.6 - 5.1 mg/dL 03/22/2025 3:41 PM EDT [facility] Lactate, Arterial 2.0(H) 0.5 - 1.6 mmol/L 03/22/2025 3:41 PM EDT [facility] Body Temperature 37.0 Celsius 03/22/2025 3:41 PM EDT [facility] pH, Temp Corrected, Arterial 7.36 7.35 - 7.45 03/22/2025 3:41 PM EDT [facility] pCO2, Temp Corrected, Arterial 42 32 - 45 mm Hg 03/22/2025 3:41 PM EDT [facility] pO2, Temp Corrected, Arterial 150(H) 83 - 108 mm Hg 03/22/2025 3:41 PM EDT [facility] Assistant Construction Superintendent ID Ludin Aguiar 03/22/2025 3:41 PM EDT [facility] Blood, Arterial Whole blood specimen / Unknown 03/22/2025 3:29 PM EDT 03/22/2025 3:41 PM EDT Musa Rosado MD LAB POINT OF CARE TE ST DOCKED DEVICE UNSOLICITED RESULTS Final Result [facility] [address] [place] [address] * (ABNORMAL) POCT arterial blood gas gem (03/22/2025 2:44 PM EDT) pH, Arterial 7.33(L) 7.35 - 7.45 03/22/2025 2:51 PM EDT [facility] pCO2, Arterial 46(H) 32 - 45 mm Hg 03/22/2025 2:51 PM EDT [facility] pO2, Arterial 182(H) 83 - 108 mm Hg 03/22/2025 2:51 PM EDT [facility] SO2, Arterial 97 94 - 98 % 03/22/2025 2:51 PM EDT [facility] Base Excess, Arterial -1.8 -2 - 3 mmol/L 03/22/2025 2:51 PM EDT [facility] HCO3, Arterial 24.3 22 - 26 mmol/L 03/22/2025 2:51 PM EDT [facility] Total Hemoglobin, Arterial, Whole Blood 10.8(L) 13.7 - 17.5 g/dL 03/22/2025 2:51 PM EDT [facility] Hematocrit, Arterial 32.0(L) 40 - 51.0 % 03/22/2025 2:51 PM EDT [facility] Sodium, Arterial 141 136 - 145 mmol/L 03/22/2025 2:51 PM EDT [facility] Potassium, Arterial 3.8 3.6 - 4.9 mmol/L 03/22/2025 2:51 PM EDT [facility] Chloride, Whole Blood 111(H) 97 - 107 mmol/L 03/22/2025 2:51 PM EDT [facility] Glucose, Arterial 187(H) 74 - 99 mg/dL 03/22/2025 2:51 PM EDT [facility] Ionized Calcium, Arterial 4.7 4.6 - 5.1 mg/dL 03/22/2025 2:51 PM EDT [facility] Lactate, Arterial 1.8(H) 0.5 - 1.6 mmol/L 03/22/2025 2:51 PM EDT [facility] Body Temperature 37.0 Celsius 03/22/2025 2:51 PM EDT [facility] pH, Temp Corrected, Arterial 7.33(L) 7.35 - 7.45 03/22/2025 2:51 PM EDT [facility] pCO2, Temp Corrected, Arterial 46(H) 32 - 45 mm Hg 03/22/2025 2:51 PM EDT [facility] pO2, Temp Corrected, Arterial 182(H) 83 - 108 mm Hg 03/22/2025 2:51 PM EDT [facility] Assistant Construction Superintendent ID Ludin Aguiar 03/22/2025 2:51 PM EDT [facility] Blood, Arterial Whole blood specimen / Unknown 03/22/2025 2:44 PM EDT 03/22/2025 2:51 PM EDT us Musa Rosado MD LAB POINT OF CARE TE ST DOCKED DEVICE UNSOLICITED RESULTS Final Result [facility] [address] [place] [id number] * QPLUS (03/22/2025 2:24 PM EDT) Clot Time 125 104 - 166 Seconds 03/22/2025 2:38 PM EDT [facility] Clot Time Ratio 1.0 0.8 - 1.2 2:38 PM EDT [facility] Comment:The Clot Time Ratio (CTR) is a calculated parameter. CTR values of 0.8 1.2 are demonstrated to be typical of n ormal patient samples. Samples with CTR values > 1.4 are indicative of prolongation of the intrinsic pathway clotting time, likely due to the influence of unfractionated heparin. POCT Clot Stiffness 17.9 13.0 - 33.2 hectoPascals 03/22/2025 2:38 PM EDT [facility] Platelet Contribution to Clot Stiffnes 16.1 11.9 - 29.8 hectoPascals 03/22/2025 2:38 PM EDT [facility] Fibrinogen Contribution to Clot Stiffness 1.8 1.0 - 3.7 hectoPascals 03/22/2025 2:38 PM EDT [facility] Heparinase Clot Time 126 103 - 153 Seconds 03/22/2025 2:38 PM EDT [facility] Assistant Construction Superintendent ID Ludin Aguiar 03/22/2025 2:38 PM EDT [facility] Device ID [id number] 03/22/2025 2:38 PM EDT [facility] Whole Blood 03/22/2025 2:24 PM EDT 03/22/2025 2:38 PM EDT Musa Rosado MD LAB POINT OF CARE TE ST DOCKED DEVICE UNSOLICITED RESULTS Final Result [facility] [address] [place] [address] * (ABNORMAL) POCT arterial blood gas gem (03/22/2025 2:10 PM EDT) pH, Arterial 7.34(L) 7.35 - 7.45 03/22/2025 2:13 PM EDT [facility] pCO2, Arterial 43 32 - 45 mm Hg 03/22/2025 2:13 PM EDT [facility] pO2, Arterial 96 83 - 108 mm Hg 03/22/2025 2:13 PM EDT [facility] SO2, Arterial 97 94 - 98 % 03/22/2025 2:13 PM EDT [facility] Base Excess, Arterial -2.5(L) -2 - 3 mmol/L 03/22/2025 2:13 PM EDT [facility] HCO3, Arterial 23.2 22 - 26 mmol/L 03/22/2025 2:13 PM EDT [facility] Total Hemoglobin, Arterial, Whole Blood 9.4(L) 13.7 - 17.5 g/dL 03/22/2025 2:13 PM EDT [facility] Hematocrit, Arterial 28.0(L) 40 - 51.0 % 03/22/2025 2:13 PM T [facility] Sodium, Arterial 140 136 - 145 mmol/L 03/22/2025 2:13 PM T [facility] Potassium, Arterial 3.7 3.6 - 4.9 mmol/L 03/22/2025 2:13 PM T [facility] Chloride, Whole Blood 110(H) 97 - 107 mmol/L 03/22/2025 2:13 PM [facility] Glucose, Arterial 212(H) 74 - 99 mg/dL 03/22/2025 2:13 PM T [facility] Ionized Calcium, Arterial 4.8 4.6 - 5.1 mg/dL 03/22/2025 2:13 PM [facility] Lactate, Arterial 2.5(H) 0.5 - 1.6 mmol/L 03/22/2025 2:13 PM T [facility] Body Temperature 37.0 Celsius 03/22/2025 2:13 PM [facility] pH, Temp Corrected, Arterial 7.34(L) 7.35 - 7.45 03/22/[facility]25 [facility] p[facility]2, Temp Corrected, Arterial 43 32 - 45 mm Hg 03/22/2025 2:13 PM [facility] pO2, Temp Corrected, Arterial 96 83 - 108 mm Hg 03/22/2025 2:13 PM EDT [facility] Assistant Construction Superintendent ID Hollister, Max 03/[facility]2025 [facility] Blood, Arterial Whole blood specimen / Unknown 03/22/2025 2:10 PM EDT 03/22/2025 2:13 PM EDT Musa Rosado MD LAB POINT OF CARE TE ST DOCKED DEVICE UNSOLICITED RESULTS Final Result Performing Organization Address [facility] de Phone Number [facility] [address] [place] [address] * POCT ACT (03/22/2025 2:04 PM EDT) ACT+ (HIGH RANGE) 115 68 - 600 Seconds 03/22/2025 2:10 PM EDT [facility] Assistant Construction Superintendent ID Selene Cardona 03/22/2025 2:10 PM EDT [facility] ACT Device ID [id number] 03/22/2025 2:10 PM EDT [facility] Comment 03/22/2025 2:10 PM EDT [facility] Comment: ACT performed by staff at point of care. Results are reported immediately to the physician or primary caregiver. The activated clotting time is performed on patients with diverse clinical characteristics and treatment histories. Therefore, expected values are variable and results must be interpreted in the context of each individual patient. Blood Venous blood specimen / Unknown 03/22/2025 2:04 PM EDT 03/22/2025 2:10 PM EDT Musa Rosado MD LAB POINT OF CARE TE ST DOCKED DEVICE UNSOLICITED RESULTS Final Result Performing Organization Address [facility] Phone Number HEALTHCARE LAB [address] LAB 800 [place] [address] * (ABNORMAL) POCT arterial blood gas gem (03/22/2025 1:29 PM EDT) pH, Arterial 7.33(L) 7.35 - 7.45 03/22/2025 1:31 PM EDT [facility] pCO2, Arterial 42 32 - 45 mm Hg 03/22/2025 1:31 PM EDT HEALTHCARE LAB pO2, Arterial 371(H) 83 - 108 mm Hg 03/22/2025 1:31 PM EDT [facility] SO2, Arterial 98 94 - 98 % 03/22/2025 1:31 PM EDT [facility] Base Excess, Arterial -3.6(L) -2 - 3 mmol/L 03/22/2025 1:31 PM EDT [facility] HCO3, Arterial 22.1 22 - 26 mmol/L 03/22/2025 1:31 PM EDT [facility] Total Hemoglobin, Arterial, Whole Blood 9.0(L) 13.7 - 17.5 g/dL 03/22/2025 1:31 PM T [facility] Hematocrit, Arterial 27.0(L) 40 - 51.0 % 03/22/2025 1:31 PM T [facility] Sodium, Arterial 138 136 - 145 mmol/L 03/22/2025 1:31 PM T [facility] Potassium, Arterial 4.2 3.6 - 4.9 mmol/L 03/22/2025 1:31 PM T [facility] Chloride, Whole Blood 109(H) 97 - 107 mmol/L 03/22/2025 1:31 PM [facility] Glucose, Arterial 272(H) 74 - 99 mg/dL 03/22/2025 1:31 PM T [facility] Ionized Calcium, Arterial 4.9 4.6 - 5.1 mg/dL 03/22/2025 1:31 PM T [facility] Lactate, Arterial 2.6(H) 0.5 - 1.6 mmol/L 03/22/2025 1:31 PM EDT [facility] Body Temperature 37.0 Celsius 03/22/2025 1:31 PM T [facility] pH, Temp Corrected, Arterial 7.33(L) 7.35 - 7.45 03/22/2025 1:31 PM T [facility] pCO2, Temp Corrected, Arterial 42 32 - 45 mm Hg 03/22/2025 1:31 PM T [facility] pO2, Temp Corrected, Arterial 371(H) 83 - 108 mm Hg 03/22/2025 1:31 PM T [facility] Assistant Construction Superintendent ID Yuliana, Shelley 03/22/[facility]25 1:[facility] Blood, Arterial Whole blood specimen / Unknown 03/22/2025 1:29 PM EDT 03/22/2025 1:31 PM EDT us Musa Rosado MD LAB POINT OF CARE TE ST DOCKED DEVICE UNSOLICITED RESULTS Final Result Performing Organization Address [facility] [employer] Phone Number HEALTHCARE LAB [address] [place] [address] * POCT ACT (03/22/2025 1:25 PM EDT) ACT+ (HIGH RANGE) 489 68 - 600 Seconds 03/22/2025 1:34 PM EDT HEALTHCARE LAB Assistant Construction Superintendent ID Shelley Bridges 03/22/2025 1:34 PM EDT [facility] ACT Device ID [id number] 03/22/2025 1:34 PM EDT [facility] Comment 03/22/2025 1:[address] [facility] Comment: ACT performed by staff at point of care. Results are reported immediately to the physician or primary caregiver. The activated clotting time is performed on patients with diverse clinical characteristics and treatment histories. Therefore, expected values are variable and results must be interpreted in the context of each individual patient. Blood Venous blood specimen / Unknown 03/22/2025 1:25 PM EDT 03/22/2025 1:34 PM EDT us Musa Rosado MD LAB POINT OF CARE TE ST DOCKED DEVICE UNSOLICITED RESULTS Final Result Performing Organization Address [facility] de Phone Number HEALTHCARE LAB [address] LAB 800 [place] [address] * (ABNORMAL) POCT arterial blood gas gem (03/22/2025 12:55 PM EDT) pH, Arterial 7.36 7.35 - 7.45 03/22/2025 12:56 PM EDT HEALTHCARE LAB pCO2, Arterial 40 32 - 45 mm Hg 03/22/2025 12:56 PM EDT [facility] pO2, Arterial 179(H) 83 - 108 mm Hg 03/22/2025 12:56 PM EDT HEALTHCARE LAB SO2, Arterial 97 94 - 98 % 03/22/2025 12:56 PM EDT [facility] Base Excess, Arterial -2.6(L) -2 - 3 mmol/L 03/22/2025 12:56 PM EDT [facility] HCO3, Arterial 22.6 22 - 26 mmol/L 03/22/2025 12:56 PM EDT [facility] Total Hemoglobin, Arterial, Whole Blood 9.3(L) 13.7 - 17.5 g/dL 03/22/2025 12:56 PM EDT [facility] Hematocrit, Arterial 28.0(L) 40 - 51.0 % 03/22/2025 12:56 PM EDT [facility] Sodium, Arterial 139 136 - 145 mmol/L 03/22/2025 12:56 PM EDT [facility] Potassium, Arterial 4.0 3.6 - 4.9 mmol/L 03/22/2025 12:56 PM EDT [facility] Chloride, Whole Blood 108(H) 97 - 107 mmol/L 03/22/2025 12:56 PM T [facility] Glucose, Arterial 245(H) 74 - 99 mg/dL 03/22/2025 12:56 PM T [facility] Ionized Calcium, Arterial 4.8 4.6 - 5.1 mg/dL 03/22/2025 12:56 PM T [facility] Lactate, Arterial 2.4(H) 0.5 - 1.6 mmol/L 03/22/2025 12:56 PM EDT [facility] Body Temperature 37.0 Celsius 03/22/2025 12:56 PM T [facility] pH, Temp Corrected, Arterial 7.36 7.35 - 7.45 03/22/2025 12:56 PM T [facility] pCO2, Temp Corrected, Arterial 40 32 - 45 mm Hg 03/22/2025 12:56 PM T [facility] pO2, Temp Corrected, Arterial 179(H) 83 - 108 mm Hg 03/22/2025 12:56 PM EDT [facility] Assistant Construction Superintendent ID Selene Cardona 03/22/2025 12:56 PM T [facility] Blood, Arterial Whole blood specimen / Unknown 03/22/2025 12:55 PM EDT 03/22/2025 12:56 PM EDT Musa Rosado MD LAB POINT OF CARE TE ST DOCKED DEVICE UNSOLICITED RESULTS Final Result Performing Organization Address City/[facility]/ZIP Co de Phone Number HEALTHCARE LAB [address] [place] [address] * POCT ACT (03/22/2025 12:51 PM EDT) [facility] ACT+ (HIGH RANGE) 593 68 - 600 Seconds 03/22/2025 1:02 PM EDT [facility] Assistant Construction Superintendent ID Selene Cardona 03/22/2025 1:02 PM EDT HEALTHCARE LAB ACT Device ID [id number] 03/22/2025 1:02 PM EDT HEALTHCARE LAB Comment 03/22/2025 1:02 PM EDT [facility] Comment: ACT performed by staff at point of care. Results are reported immediately to the physician or primary caregiver. The activated clotting time is performed on patients with diverse clinical characteristics and treatment histories. Therefore, expected values are variable and results must be interpreted in the context of each individual patient. Blood Venous blood specimen / Unknown 03/22/2025 12:51 PM EDT 03/22/2025 1:02 PM EDT Musa Rosado MD LAB POINT OF CARE TE ST DOCKED DEVICE UNSOLICITED RESULTS Final Result Performing Organization Address [facility] [employer] Phone Number HEALTHCARE LAB [address] LAB 800 [place] [address] * (ABNORMAL) POCT arterial blood gas gem (03/22/2025 12:25 PM EDT) Pathologist [facility] pH, Arterial 7.44 7.35 - 7.45 03/22/2025 12:26 PM EDT HEALTHCARE LAB pCO2, Arterial 34 32 - 45 mm Hg 03/22/2025 12:26 PM EDT HEALTHCARE LAB pO2, Arterial 296(H) 83 - 108 mm Hg 03/22/2025 12:26 PM EDT HEALTHCARE LAB SO2, Arterial 97 94 - 98 % 03/22/2025 12:26 PM EDT HEALTHCARE LAB Base Excess, Arterial -0.7 -2 - 3 mmol/L 03/22/2025 12:26 PM EDT HEALTHCARE LAB HCO3, Arterial 23.1 22 - 26 mmol/L 03/22/2025 12:26 PM EDT [facility] Total Hemoglobin, Arterial, Whole Blood 9.7(L) 13.7 - 17.5 g/dL 03/22/2025 12:26 PM EDT [facility] Hematocrit, Arterial 29.0(L) 40 - 51.0 % 03/22/2025 12:26 PM EDT [facility] Sodium, Arterial 138 136 - 145 mmol/L 03/22/2025 12:26 PM EDT [facility] Potassium, Arterial 3.4(L) 3.6 - 4.9 mmol/L 03/22/2025 12:26 PM EDT [facility] Chloride, Whole Blood 108(H) 97 - 107 mmol/L 03/22/2025 12:26 PM EDT [facility] Glucose, Arterial 266(H) 74 - 99 mg/dL 03/22/2025 12:26 PM EDT [facility] Ionized Calcium, Arterial 4.7 4.6 - 5.1 mg/dL 03/22/2025 12:26 PM EDT [facility] Lactate, Arterial 2.3(H) 0.5 - 1.6 mmol/L 03/22/2025 12:26 PM EDT [facility] Body Temperature 37.0 Celsius 03/22/2025 12:26 PM EDT [facility] pH, Temp Corrected, Arterial 7.44 7.35 - 7.45 03/22/2025 12:26 PM EDT [facility] pCO2, Temp Corrected, Arterial 34 32 - 45 mm Hg 03/22/2025 12:26 PM EDT [facility] pO2, Temp Corrected, Arterial 296(H) 83 - 108 mm Hg 03/22/2025 12:26 PM EDT [facility] Assistant Construction Superintendent ID Selene Cardona 03/22/2025 12:26 PM EDT [facility] Blood, Arterial Whole blood specimen / Unknown 03/22/2025 12:25 PM EDT 03/22/2025 12:26 PM EDT us Musa Rosado MD LAB POINT OF CARE TE ST DOCKED DEVICE UNSOLICITED RESULTS Final Result [facility] [address] [place] [address] * POCT ACT (03/22/2025 12:21 PM EDT) ACT+ (HIGH RANGE) 536 68 - 600 Seconds 03/22/2025 12:30 PM EDT [facility] Assistant Construction Superintendent ID Selene Cardona 03/22/2025 12:30 PM EDT [facility] ACT Device ID [id number] 03/22/2025 12:30 PM EDT HEALTHCARE LAB Comment 03/22/2025 12:30 PM EDT [facility] Comment: ACT performed by staff at point of care. Results are reported immediately to the physician or primary caregiver. The activated clotting time is performed on patients with diverse clinical characteristics and treatment histories. Therefore, expected values are variable and results must be interpreted in the context of each individual patient. Blood Venous blood specimen / Unknown 03/22/2025 12:21 PM EDT 03/22/2025 12:30 PM EDT Musa Rosado MD LAB POINT OF CARE TE ST DOCKED DEVICE UNSOLICITED RESULTS Final Result [facility] [address] LAB 800 [place] [address] * (ABNORMAL) POCT arterial blood gas gem (03/22/2025 11:54 AM EDT) pH, Arterial 7.31(L) 7.35 - 7.45 03/22/2025 11:56 AM EDT HEALTHCARE LAB pCO2, Arterial 43 32 - 45 mm Hg 03/22/2025 11:56 AM EDT HEALTHCARE LAB pO2, Arterial 234(H) 83 - 108 mm Hg 03/22/2025 11:56 AM EDT HEALTHCARE LAB SO2, Arterial 97 94 - 98 % 03/22/2025 11:56 AM EDT [facility] Base Excess, Arterial -4.4(L) -2 - 3 mmol/L 03/22/2025 11:56 AM EDT HEALTHCARE LAB HCO3, Arterial 21.7(L) 22 - 26 mmol/L 03/22/2025 11:56 AM EDT [facility] Total Hemoglobin, Arterial, Whole Blood 9.8(L) 13.7 - 17.5 g/dL 03/22/2025 11:56 AM EDT [facility] Hematocrit, Arterial 29.0(L) 40 - 51.0 % 03/22/2025 11:56 AM EDT [facility] Sodium, Arterial 139 136 - 145 mmol/L 03/22/2025 11:56 AM EDT [facility] Potassium, Arterial 2.9(L) 3.6 - 4.9 mmol/L 03/22/2025 11:56 AM EDT [facility] Chloride, Whole Blood 107 97 - 107 mmol/L 03/22/2025 11:56 AM EDT [facility] Glucose, Arterial 243(H) 74 - 99 mg/dL 03/22/2025 11:56 AM EDT [facility] Ionized Calcium, Arterial 4.9 4.6 - 5.1 mg/dL 03/22/2025 11:56 AM EDT [facility] Lactate, Arterial 2.2(H) 0.5 - 1.6 mmol/L 03/22/2025 11:56 AM EDT [facility] Body Temperature 37.0 Celsius 03/22/2025 11:56 AM EDT [facility] pH, Temp Corrected, Arterial 7.31(L) 7.35 - 7.45 03/22/2025 11:56 AM EDT [facility] pCO2, Temp Corrected, Arterial 43 32 - 45 mm Hg 03/22/2025 11:56 AM EDT [facility] pO2, Temp Corrected, Arterial 234(H) 83 - 108 mm Hg 03/22/2025 11:56 AM EDT [facility] Assistant Construction Superintendent ID Selene Cardona 03/22/2025 11:56 AM EDT [facility] Blood, Arterial Whole blood specimen / Unknown 03/22/2025 11:54 AM EDT 03/22/2025 11:56 AM EDT us Musa Rosado MD LAB POINT OF CARE TE ST DOCKED DEVICE UNSOLICITED RESULTS Final Result Performing Organization Address City/State/[place] Co de Phone Number [facility] [address] [place] [id number] * POCT ACT (03/22/2025 11:49 AM EDT) Pathologist [facility] ACT+ (HIGH RANGE) 591 68 - 600 Seconds 03/22/2025 12:30 PM EDT [facility] Assistant Construction Superintendent ID Selene Cardona 03/22/2025 12:30 PM EDT [facility] ACT Device ID [id number] 03/22/2025 12:30 PM EDT [facility] Comment 03/22/2025 12:30 PM EDT [facility] Comment: ACT performed by staff at point of care. Results are reported immediately to the physician or primary caregiver. The activated clotting time is performed on patients with diverse clinical characteristics and treatment histories. Therefore, expected values are variable and results must be interpreted in the context of each individual patient. Blood Venous blood specimen / Unknown 03/22/2025 11:49 AM EDT 03/22/2025 12:30 PM EDT Musa Rosado MD LAB POINT OF CARE TE ST DOCKED DEVICE UNSOLICITED RESULTS Final Result [facility] [address] LAB 800 [place] [address] * (ABNORMAL) POCT arterial blood gas gem (03/22/2025 11:26 AM EDT) pH, Arterial 7.37 7.35 - 7.45 03/22/2025 11:28 AM EDT [facility] pCO2, Arterial 42 32 - 45 mm Hg 03/22/2025 11:28 AM EDT [facility] pO2, Arterial 251(H) 83 - 108 mm Hg 03/22/2025 11:28 AM EDT [facility] SO2, Arterial 98 94 - 98 % 03/22/2025 11:28 AM EDT [facility] Base Excess, Arterial -1.0 -2 - 3 mmol/L 03/22/2025 11:28 AM EDT [facility] HCO3, Arterial 24.3 22 - 26 mmol/L 03/22/2025 11:28 AM EDT [facility] Total Hemoglobin, Arterial, Whole Blood 9.2(L) 13.7 - 17.5 g/dL 03/22/2025 11:28 AM EDT [facility] Hematocrit, Arterial 28.0(L) 40 - 51.0 % 03/22/2025 11:28 AM EDT [facility] Sodium, Arterial 136 136 - 145 mmol/L 03/22/2025 11:28 AM EDT [facility] Potassium, Arterial 3.6 3.6 - 4.9 mmol/L 03/22/2025 11:28 AM EDT [facility] Chloride, Whole Blood 106 97 - 107 mmol/L 03/22/2025 11:28 AM EDT [facility] Glucose, Arterial 248(H) 74 - 99 mg/dL 03/22/2025 11:28 AM EDT [facility] Ionized Calcium, Arterial 4.7 4.6 - 5.1 mg/dL 03/22/2025 11:28 AM EDT [facility] Lactate, Arterial 1.5 0.5 - 1.6 mmol/L 03/22/2025 11:28 AM EDT [facility] Body Temperature 37.0 Celsius 03/22/2025 11:28 AM EDT [facility] pH, Temp Corrected, Arterial 7.37 7.35 - 7.45 03/22/2025 11:28 AM EDT [facility] pCO2, Temp Corrected, Arterial 42 32 - 45 mm Hg 03/22/2025 11:28 AM EDT [facility] pO2, Temp Corrected, Arterial 251(H) 83 - 108 mm Hg 03/22/2025 11:28 AM EDT [facility] Assistant Construction Superintendent ID Selene Cardona 03/22/2025 11:28 AM EDT [facility] Blood, Arterial Whole blood specimen / Unknown 03/22/2025 11:26 AM EDT 03/22/2025 11:28 AM EDT us Musa Rosado MD LAB POINT OF CARE TE ST DOCKED DEVICE UNSOLICITED RESULTS Final Result [facility] [address] [place] [id number] * POCT ACT (03/22/2025 11:22 AM EDT) ACT+ (HIGH RANGE) 534 68 - 600 Seconds 03/22/2025 11:31 AM EDT [facility] Assistant Construction Superintendent ID Selene Cardona 03/22/2025 11:31 AM EDT [facility] ACT Device ID [id number] 03/22/2025 11:31 AM EDT [facility] Comment 03/22/2025 11:31 AM EDT [facility] Comment: ACT performed by staff at point of care. Results are reported immediately to the physician or primary caregiver. The activated clotting time is performed on patients with diverse clinical characteristics and treatment histories. Therefore, expected values are variable and results must be interpreted in the context of each individual patient. Blood Venous blood specimen / Unknown 03/22/2025 11:22 AM EDT 03/22/2025 11:31 AM EDT us Musa Rosado MD LAB POINT OF CARE TE ST DOCKED DEVICE UNSOLICITED RESULTS Final Result [facility] [address] LAB [address] [place] [address] * (ABNORMAL) POCT arterial blood gas gem (03/22/2025 10:55 AM EDT) pH, Arterial 7.40 7.35 - 7.45 03/22/2025 10:56 AM EDT [facility] pCO2, Arterial 41 32 - 45 mm Hg 03/22/2025 10:56 AM EDT [facility] pO2, Arterial 183(H) 83 - 108 mm Hg 03/22/2025 10:56 AM EDT [facility] SO2, Arterial 97 94 - 98 % 03/22/2025 10:56 AM EDT [facility] Base Excess, Arterial 0.5 -2 - 3 mmol/L 03/22/2025 10:56 AM EDT [facility] HCO3, Arterial 25.4 22 - 26 mmol/L 03/22/2025 10:56 AM EDT [facility] Total Hemoglobin, Arterial, Whole Blood 12.6(L) 13.7 - 17.5 g/dL 03/22/2025 10:56 AM EDT [facility] Hematocrit, Arterial 38.0(L) 40 - 51.0 % 03/22/2025 10:56 AM EDT [facility] Sodium, Arterial 139 136 - 145 mmol/L 03/22/2025 10:56 AM EDT [facility] Potassium, Arterial 4.1 3.6 - 4.9 mmol/L 03/22/2025 10:56 AM EDT [facility] Chloride, Whole Blood 107 97 - 107 mmol/L 03/22/2025 10:56 AM EDT [facility] Glucose, Arterial 157(H) 74 - 99 mg/dL 03/22/2025 10:56 AM EDT [facility] Ionized Calcium, Arterial 4.7 4.6 - 5.1 mg/dL 03/22/2025 10:56 AM EDT [facility] Lactate, Arterial 1.1 0.5 - 1.6 mmol/L 03/22/2025 10:56 AM EDT [facility] Body Temperature 37.0 Celsius 03/22/2025 10:56 AM EDT [facility] pH, Temp Corrected, Arterial 7.40 7.35 - 7.45 03/22/2025 10:56 AM EDT [facility] pCO2, Temp Corrected, Arterial 41 32 - 45 mm Hg 03/22/2025 10:56 AM EDT [facility] pO2, Temp Corrected, Arterial 183(H) 83 - 108 mm Hg 03/22/2025 10:56 AM EDT [facility] Assistant Construction Superintendent ID Selene Cardona 03/22/2025 10:56 AM EDT [facility] Blood, Arterial Whole blood specimen / Unknown 03/22/2025 10:55 AM EDT 03/22/2025 10:56 AM EDT Musa Rosado MD LAB POINT OF CARE TE ST DOCKED DEVICE UNSOLICITED RESULTS Final Result [facility] [address] [place] [address] * POCT ACT (03/22/2025 10:52 AM EDT) [facility] Signature ACT+ (HIGH RANGE) 599 68 - 600 Seconds 03/22/2025 11:02 AM EDT HEALTHCARE LAB Assistant Construction Superintendent ID Selene Cardona 03/22/2025 11:02 AM EDT [facility] ACT Device ID [id number] 03/22/2025 11:02 AM EDT [facility] Comment 03/22/2025 11:02 AM EDT [facility] Comment: ACT performed by staff at point of care. Results are reported immediately to the physician or primary caregiver. The activated clotting time is performed on patients with diverse clinical characteristics and treatment histories. Therefore, expected values are variable and results must be interpreted in the context of each individual patient. Blood Venous blood specimen / Unknown 03/22/2025 10:52 AM EDT 03/22/2025 11:02 AM EDT us Musa Rosado MD LAB POINT OF CARE TE ST DOCKED DEVICE UNSOLICITED RESULTS Final Result [facility] [address] [facility] [address] [place] [address] * (ABNORMAL) POCT arterial blood gas gem (03/22/2025 10:04 AM EDT) pH, Arterial 7.36 7.35 - 7.45 03/22/2025 10:06 AM EDT [facility] pCO2, Arterial 46(H) 32 - 45 mm Hg 03/22/2025 10:06 AM EDT [facility] pO2, Arterial 178(H) 83 - 108 mm Hg 03/22/2025 10:06 AM EDT [facility] SO2, Arterial 97 94 - 98 % 03/22/2025 10:06 AM EDT [facility] Base Excess, Arterial 0.1 -2 - 3 mmol/L 03/22/2025 10:06 AM EDT [facility] HCO3, Arterial 26.0 22 - 26 mmol/L 03/22/2025 10:06 AM EDT [facility] Total Hemoglobin, Arterial, Whole Blood 13.3(L) 13.7 - 17.5 g/dL 03/22/2025 10:06 AM EDT [facility] Hematocrit, Arterial 40.0 40 - 51.0 % 03/22/2025 10:06 AM EDT [facility] Sodium, Arterial 139 136 - 145 mmol/L 03/22/2025 10:06 AM EDT [facility] Potassium, Arterial 4.1 3.6 - 4.9 mmol/L 03/22/2025 10:06 AM EDT [facility] Chloride, Whole Blood 105 97 - 107 mmol/L 03/22/2025 10:06 AM EDT [facility] Glucose, Arterial 174(H) 74 - 99 mg/dL 03/22/2025 10:06 AM EDT [facility] Ionized Calcium, Arterial 4.9 4.6 - 5.1 mg/dL 03/22/2025 10:06 AM EDT [facility] Lactate, Arterial 1.2 0.5 - 1.6 mmol/L 03/22/2025 10:06 AM EDT [facility] Body Temperature 37.0 Celsius 03/22/2025 10:06 AM EDT [facility] LAB pH, Temp Corrected, Arterial 7.36 7.35 - 7.45 03/22/2025 10:06 AM EDT [facility] pCO2, Temp Corrected, Arterial 46(H) 32 - 45 mm Hg 03/22/2025 10:06 AM EDT [facility] pO2, Temp Corrected, Arterial 178(H) 83 - 108 mm Hg 03/22/2025 10:06 AM EDT [facility] Assistant Construction Superintendent ID Temo Mendoza 03/22/2025 10:06 AM EDT [facility] Blood, Arterial Whole blood specimen / Unknown 03/22/2025 10:04 AM EDT 03/22/2025 10:06 AM EDT us Musa Rosado MD LAB POINT OF CARE TE ST DOCKED DEVICE UNSOLICITED RESULTS Final Result [facility] [address] [place] [id number] * (ABNORMAL) POCT arterial blood gas gem (03/22/2025 8:01 AM EDT) pH, Arterial 7.44 7.35 - 7.45 03/22/2025 9:00 AM EDT [facility] pCO2, Arterial 39 32 - 45 mm Hg 03/22/2025 9:00 AM EDT [facility] pO2, Arterial 78(L) 83 - 108 mm Hg 03/22[facility] SO2, Arterial 96 94 - 98 % 03/22/2025 9:00 AM [facility] Base Excess, Arterial 2.3 -2 - 3 mmol/L 03/22/2025 9:00 AM [facility] HCO3, Arterial 26.5(H) 22 - 26 mmol/L 03/22/2025 9:00 AM [facility] Total Hemoglobin, Arterial, Whole Blood 13.8 13.7 - 17.5 g/dL 03/22/2025 9:00 AM [facility] Hematocrit, Arterial 41.0 40 - 51.0 % 03/22/2025 9:00 AM [facility] Sodium, Arterial 139 136 - 145 mmol/L 03/22/2025 9:00 AM [facility] Potassium, Arterial 3.8 3.6 - 4.9 mmol/L 03/22/2025 9:00 AM [facility] Chloride, Whole Blood 104 97 - 107 mmol/L 03/22/2025 9:00 AM [facility] Glucose, Arterial 207(H) 74 - 99 mg/dL 03/22/2025 9:00 AM [facility] Ionized Calcium, Arterial 5.0 4.6 - 5.1 mg/dL 03/22/2025 9:00 AM [facility] Lactate, Arterial 1.1 0.5 - 1.6 mmol/L 03/22/2025 9:00 AM [facility] Body Temperature 37.0 Celsius 03/22/2025 9:00 AM [facility] pH, Temp Corrected, Arterial 7.44 7.35 - 7.45 03/22/2025 9:00 AM [facility] pCO2, Temp Corrected, Arterial 39 32 - 45 mm Hg 03/22/2025 9:00 AM [facility] pO2, Temp Corrected, Arterial 78(L) 83 - 108 mm Hg 03/22/2025 9:00 AM [facility] Assistant Construction Superintendent ID Ludin Aguiar 03/22/2025 9:00 AM [facility] Blood, Arterial Whole blood specimen / Unknown 03/22/2025 8:01 AM EDT 03/22/2025 9:00 AM EDT us Musa Rosado MD LAB POINT OF CARE TE ST DOCKED DEVICE UNSOLICITED RESULTS Final Result Performing Organization Address [facility] de Phone Number HEALTHCARE LAB [address] [place] [address] * POCT ACT (03/22/2025 7:57 AM EDT) ACT+ (HIGH RANGE) 107 68 - 600 Seconds 03/22/2025 8:02 AM EDT [facility]ALTH[facility]ARE LAB Assistant Construction Superintendent ID Jean Acevedo 03/22/2025 8:02 AM EDT [facility]ALTH[facility] ACT Device ID [id number] 03/22/2025 8:02 AM EDT [facility] Comment 03/22/2025 8:02 AM EDT [facility] Comment: ACT performed by staff at point of care. Results are reported immediately to the physician or primary caregiver. The activated clotting time is performed on patients with diverse clinical characteristics and treatment histories. Therefore, expected values are variable and results must be interpreted in the context of each individual patient. Blood Venous blood specimen / Unknown 03/22/2025 7:57 AM EDT 03/22/2025 8:02 AM EDT us Musa Rosado MD LAB POINT OF CARE TE ST DOCKED DEVICE UNSOLICITED RESULTS Final Result Performing Organization Address [facility] de Phone Number HEALTHCARE LAB [address] LAB [address] [place] [address] * APTT (03/22/2025 6:32 AM EDT) aPTT 28 25 - 35 sec LAB COAGULATION METHOD 03/22/2025 6:58 AM EDT [facility] Blood Venous blood specimen / Unknown Venipuncture / Unknown 03/22/2025 6:32 AM EDT 03/22/2025 6:38 AM EDT us Zualy Syed APRN LAB BLOOD ORDERABLES Final R esult Performing Organization Address City/[facility] de Phone Number [facility] [address] [place] [address] * Protime-INR (03/22/2025 6:32 AM EDT) Prothrombin Time 13.6 12.0 - 14.3 sec LAB COAGULATION METHOD 03/22/2025 6:58 AM EDT [facility] INR 1.0 0.9 - 1.1 LAB COAGULATION METHOD 03/22/2025 6:58 AM EDT [facility] Blood Venous blood specimen / Unknown Venipuncture / Unknown 03/22/2025 6:32 AM EDT 03/22/2025 6:38 AM EDT Narrative [facility] - 03/22/2025 6:58 AM EDT OPTIMAL INR RANGES FOR PATIENT ON ORAL ANTICOAGULANT THERAPY Prevention of venous thromboembolism INR 2.0 to 3.0 In patients with heart disease: Atrial fibrillation INR 2.0 to 3.0 Valvular heart disease INR 2.0 to 3.0 Tissue heart valves INR 2.0 to 3.0 Mechanical prosthetic valves INR 2.5 to 3.5 Prevention of recurrent OK INR 2.5 to 3.5 us Zulay Syed INVESTMENT SALES ASSISTANT LAB BLOOD ORDERABLES Final R esult [facility] [address] [place] [address] * (ABNORMAL) Comprehensive metabolic panel (03/22/2025 6:32 AM EDT) Glucose, Plasma 180(H) 74 - 99 mg/dL 03/22/2025 7:10 AM EDT [facility] BUN, Plasma 20 7 - 21 mg/dL 03/22/2025 7:10 AM EDT [facility] Creatinine, Plasma 1.29(H) 0.70 - 1.20 mg/dL 03/22/2025 7:10 AM EDT [facility] BUN/Creatinine Ratio 16 03/22/2025 7:10 AM EDT [facility] Sodium, Plasma 139 136 - 145 mmol/L 03/22/2025 7:10 AM EDT [facility] Potassium, Plasma 3.9 3.6 - 4.9 mmol/L 03/22/2025 7:10 AM EDT [facility] Chloride, Plasma 104 97 - 107 mmol/L 03/22/2025 7:10 AM EDT [facility] CO2, Plasma 24 22 - 29 mmol/L 03/22/2025 7:10 AM EDT [facility] Anion Gap 11 6 - 16 mmol/L 03/22/2025 7:10 AM EDT [facility] Total Calcium, Plasma 9.5 8.9 - 10.2 mg/dL 03/22/2025 7:10 AM EDT [facility] Total Protein 7.2 6.3 - 7.9 g/dL 03/22/2025 7:10 AM EDT [facility] Albumin, Plasma 4.4 3.5 - 5.2 g/dL 03/22/2025 7:10 AM EDT [facility] AST, Plasma 24 10 - 50 U/L 03/22/2025 7:10 AM EDT [facility] Comment:Hemolyzed, result ma y be falsely increased. ALT, Plasma 28 10 - 50 U/L 03/22/2025 7:10 AM EDT [facility] Alkaline Phosphatase, Plasma 41 40 - 115 U/L 03/22/2025 7:10 AM EDT [facility] Total Bilirubin, Plasma 0.4 0.2 - 1.1 mg/dL 03/22/2025 7:10 AM EDT [facility] eGFRcr 70.6 mL/min/1.7 3m*2 03/22/2025 7:10 AM EDT [facility] Comment:Reported eGFRcr in m L/min/1.73m2 is based the CKD-EPI 2020 equation that does not use a race coefficient. Blood Venous blood specimen / Unknown Venipuncture / Unknown 03/22/2025 6:32 AM EDT 03/22/2025 6:38 AM EDT us Zulay Syed APRN LAB BLOOD ORDERABLES Final R esult [facility] [address] [place] [address] * CBC (03/22/2025 6:32 AM EDT) WBC Count 5.45 3.70 - 10.30 10*3/uL LAB HEMATOLOGY METHOD 03/22/2025 7:04 AM EDT [facility] RBC Count 4.78 4.60 - 6.10 10*6/uL LAB HEMATOLOGY METHOD 03/22/2025 7:04 AM EDT [facility] HGB 14.7 13.7 - 17.5 g/dL LAB HEMATOLOGY METHOD 03/22/2025 7:04 AM EDT [facility] HCT 42.5 40.0 - 51.0 % LAB HEMATOLOGY METHOD 03/22/2025 7:04 AM EDT [facility] Platelet Count 183 155 - 369 10*3/uL LAB HEMATOLOGY METHOD 03/22/2025 7:04 AM EDT [facility] MCV 89 79 - 98 fL LAB HEMATOLOGY METHOD 03/22/2025 7:04 AM EDT [facility] MCH 30.8 26.0 - 32.0 pg LAB HEMATOLOGY METHOD 03/22/2025 7:04 AM EDT [facility] MCHC 34.6 30.7 - 35.5 g/dL LAB HEMATOLOGY METHOD 03/22/2025 7:04 AM EDT [facility] RDW 13.3 11.5 - 14.5 % LAB HEMATOLOGY METHOD 03/22/2025 7:04 AM EDT [facility] MPV 11.2 8.8 - 12.5 fL LAB HEMATOLOGY METHOD 03/22/2025 7:04 AM EDT [facility] nRBC 0.0 <=0.0 per 100 WBCs LAB HEMATOLOGY METHOD 03/22/2025 7:04 AM EDT [facility] Blood Venous blood specimen / Unknown Venipuncture / Unknown 03/22/2025 6:32 AM EDT 03/22/2025 6:38 AM EDT us Zulay Syed INVESTMENT SALES ASSISTANT LAB BLOOD ORDERABLES Final R esult [facility] [address] [place] [address] * (ABNORMAL) POCT glucose meter (03/22/2025 6:31 AM EDT) POCT Glucose 188(H) 74 - 99 mg/dL 03/22/2025 6:33 AM EDT [facility] Comment:Accuracy of a glucos e result obtained from a capillary whole blood specimen relies upon adequate, non-compromised capillary blood flow. If the capillary glucose result is not consistent with the patient's clinical signs and symptoms, glucose testing should be repeated with either an arterial or venous sample on the glucometer or sent to the main labortory for testing. Comment 03/22/2025 6:33 AM EDT [facility]ALTH[facility]ARE LAB Assistant Construction Superintendent ID Beverly Romano 03/22/2025 6:33 AM EDT HEALTHCARE LAB Device ID [id number] 03/22/2025 6:33 AM EDT [facility]ALTH[facility]ARE LAB Specimen Type POC Venous 03/22/2025 6:33 AM EDT [facility] Blood Venous blood specimen / Unknown 03/22/2025 6:31 AM EDT 03/22/2025 6:33 AM EDT Musa Rosado MD LAB POINT OF CARE TE ST DOCKED DEVICE UNSOLICITED RESULTS Final Result Performing Organization Address City/State/[facility] de Phone Number [facility]ARE [facility] [address] [place] [address] documented in this encounter Visit Diagnoses Diagnosis CAD (coronary artery disease)- Primary Coronary atherosclerosis of unspecified type of vessel, jamul or graft CAD, 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 bypass status CAD, 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 bypass status On mechanically assisted ventilation (CMS/HCC) GERD (gastroesophageal reflux disease) Esophageal reflux Hypertension Unspecified essential hypertension HLD (hyperlipidemia) Other and unspecified hyperlipidemia 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) CKD (chronic kidney disease) stage 2, GFR 60-89 ml/min Chronic kidney disease, Stage II (mild) Postoperative pain Other acute postoperative pain Obesity (BMI 30-39.9) Cardiac volume overload Acute blood loss anemia Acute posthemorrhagic anemia Thrombocytopenia (CMS/HCC) Unspecified thrombocytopenia Hypocalcemia Hypophosphatemia Disorders of phosphorus metabolism Hypomagnesemia Disorders of magnesium metabolism Transient hyperglycemia post procedure Other abnormal glucose Stage 3b chronic kidney disease (CMS/HCC) Gout Gout, unspecified Chronic pain Other chronic pain Leukocytosis Leukocytosis, unspecified Hypertriglyceridemia Pure hyperglyceridemia Hypoalphalipoproteinemia Lipoprotein deficiencies documented in this encounter Admitting Diagnoses Diagnosis CAD (coronary artery disease) Coronary atherosclerosis of unspecified type of vessel, jamul or graft CAD, 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 bypass status documented in this encounter Administered Medications Inactive Administered Medications - up to 3 most recent administrations Medication Order MAR Action Action Date Dose Rate Site acetaminophen (Tylenol) tablet 1,000 mg 1,000 mg, Oral, Every 6 hours scheduled, First dose (after last modification) on Fri03/27/25 at 1200, Until Discontinued, Routine, Recovery(Phase II-Outpatient)/On Unit(Inpatient) Given 03/30/2025 6:16 AM EDT 1,000 mg Given 03/30/2025 12:54 AM EDT 1,000 mg Given 03/29/2025 6:08 PM EDT 1,000 mg acetaminophen (Tylenol) tablet 650 mg 650 mg, Oral, Every 6 hours scheduled, First dose (after last modification) on Fri03/22/25 at 2300, Until Discontinued, Routine, Recovery(Phase II-Outpatient)/On Unit(Inpatient) Given 03/27/2025 5:03 AM EDT 650 mg Given 03/27/2025 1:07 AM EDT 650 mg Given 03/26/2025 6:09 PM EDT 650 mg albumin human 5 % infusion 12.5 g 12.5 g, Intravenous, Once, 1 dose, On Fri03/22/25 at 1715, Routine New Bag 03/22/2025 4:37 PM EDT 12.5 g albumin human 5 % infusion 12.5 g 12.5 g, Intravenous, Once, 1 dose, On Fri03/23/25 at 0715, STAT New Bag 03/23/2025 6:23 AM EDT 12.5 g allopurinol (Zyloprim) tablet 300 mg 300 mg, Oral, Daily, First dose on Fri03/23/25 at 1400, Until Discontinued, Routine Given 03/30/2025 9:05 AM EDT 300 mg Given 03/29/2025 9:21 AM EDT 300 mg Given 03/28/2025 8:47 AM EDT 300 mg aspirin chewable tablet 81 mg 81 mg, Oral, Daily, First dose on Fri03/23/25 at 0900, Until Discontinued, Routine, Recovery(Phase II-Outpatient)/On Unit(Inpatient) Given 03/30/2025 9:05 AM EDT 81 mg Given 03/29/2025 9:21 AM EDT 81 mg Given 03/28/2025 8:48 AM EDT 81 mg atorvastatin (Lipitor) tablet 80 mg 80 mg, Oral, Nightly, First dose on Fri03/22/25 at 2100, Until Discontinued, Routine, Recovery(Phase II-Outpatient)/On Unit(Inpatient) Given 03/29/2025 9:13 PM EDT 80 mg Given 03/28/2025 8:29 PM EDT 80 mg Given 03/27/2025 8:27 PM EDT 80 mg bisacodyl (Dulcolax) suppository 10 mg 10 mg, Rectal, Daily PRN, Starting on Fri03/26/25 at 1050, Until Fri03/30/25 at 1339, Routine, constipation Given 03/28/2025 1:23 PM EDT 10 mg calcium gluconate 1 g in sodium chloride 0.9% 100 mL IVPB (vial adapter required) 1 g, Intravenous, Once, 1 dose, On Fri03/22/25 at 1745, at 240 mL/hr, Administer over 30 Minutes, Routine New 03/22/2025 6:14 PM EDT 1 g 240 mL/hr ceFAZolin (Ancef) injection 2 g 2 g, Intravenous, Every 8 hours, 3 doses, First dose on Fri03/22/25 at 2000, Last dose on Fri03/23/25 at 1200, Routine, Recovery(Phase II-Outpatient)/On Unit(Inpatient) Given 03/23/2025 11:48 AM EDT 2 g Given 03/23/2025 3:05 AM EDT 2 g Given 03/22/2025 7:56 PM EDT 2 g colchicine (Colcrys) tablet 0.6 mg 0.6 mg, Oral, 2 times daily, First dose on Fri03/23/25 at 0900, Until Discontinued, Routine Given 03/23/2025 8:03 AM EDT 0.6 mg colchicine (Colcrys) tablet 0.6 mg 0.6 mg, Oral, 2 times daily, 8 doses, First dose (after last modification) on Fri03/23/25 at 2100, Last dose on Fri03/27/25 at 0900, Routine Given 03/27/2025 8:36 AM EDT 0.6 mg Given 03/26/2025 9:22 PM EDT 0.6 mg Given 03/26/2025 9:01 AM EDT 0.6 mg docusate sodium (Colace) capsule 100 mg 100 mg, Oral, 2 times daily, First dose on Fri03/22/25 at 2100, Until Discontinued, Routine, Recovery(Phase II-Outpatient)/On Unit(Inpatient) Given 03/30/2025 9:03 AM EDT 100 mg Given 03/29/2025 9:12 PM EDT 100 mg Given 03/29/2025 9:20 AM EDT 100 mg fenofibrate (Tricor) tablet 145 mg 145 mg, Oral, Daily, First dose on Fri03/23/25 at 1400, Until Discontinued, Routine Given 03/30/2025 9:03 AM EDT 145 mg Given 03/29/2025 9:21 AM EDT 145 mg Given 03/28/2025 8:47 AM EDT 145 mg furosemide (Lasix) tablet 40 mg 40 mg, Oral, Daily, First dose on Fri03/25/25 at 0915, Until Discontinued, Routine Given 03/30/2025 9:03 AM EDT 40 mg Given 03/29/2025 9:20 AM EDT 40 mg Given 03/28/2025 8:49 AM EDT 40 mg gabapentin (Neurontin) capsule 200 mg 200 mg, Oral, Once, 1 dose, On Fri03/22/25 at 2215, Routine Given 03/22/2025 9:46 PM EDT 200 mg gabapentin (Neurontin) capsule 300 mg 300 mg, Oral, 2 times daily, First dose on Fri03/23/25 at 0900, Until Discontinued, Routine Given 03/30/2025 9:03 AM EDT 300 mg Given 03/29/2025 9:13 PM EDT 300 mg Given 03/29/2025 9:21 AM EDT 300 mg heparin (porcine) injection 5,000 Units 5,000 Units, Subcutaneous, Every 8 hours scheduled, First dose on Fri03/23/25 at 0600, Until Discontinued, Routine, Recovery(Phase II-Outpatient)/On Unit(Inpatient) Given 03/30/2025 6:16 AM EDT 5,000 Units Left Upper Arm (Back ) Given 03/29/2025 9:14 PM EDT 5,000 Units L eft Lower Abdomen Given 03/29/2025 3:09 PM EDT 5,000 Units L eft Lower Abdomen HYDROmorphone (Dilaudid) injection 0.5 mg 0.5 mg, Intravenous, Once, 1 dose, On Fri03/22/25 at 1715, STAT Given 03/22/2025 6:14 PM EDT 0.5 mg HYDROmorphone (Dilaudid) injection 0.5 mg 0.5 mg, Intravenous, Every 2 hour PRN, Starting on Fri03/22/25 at 1617, Until Fri03/23/25 at 0904, Routine, severe pain Given 03/23/2025 7:30 AM EDT 0.5 mg Given 03/23/2025 5:30 AM EDT 0.5 mg Given 03/23/2025 3:05 AM EDT 0.5 mg HYDROmorphone (Dilaudid) injection 0.5 mg 0.5 mg, Intravenous, Every 4 hours PRN, Starting on Fri03/25/25 at 1122, Until Fri03/27/25 at 0834, Routine, severe pain, moderate pain, only to be used 30 minutes after po diluadid Given 03/27/2025 8:32 AM EDT 0.5 mg Given 03/26/2025 10:10 PM EDT 0.5 mg Given 03/26/2025 6:06 PM EDT 0.5 mg HYDROmorphone (Dilaudid) injection 0.5 mg 0.5 mg, Intravenous, Every 8 hours PRN, Starting on Fri03/27/25 at 0834, Until Fri03/29/25 at 0653, Routine, severe pain, moderate pain, only to be used 30 minutes after po diluadid Given 03/28/2025 2:03 AM EDT 0.5 mg HYDROmorphone (Dilaudid) tablet 4 mg 4 mg, Oral, Every 4 hours PRN, Starting on Fri03/25/25 at 1120, Until Fri03/27/25 at 0810, Routine, severe pain Given 03/27/2025 4:50 AM EDT 4 mg Given 03/27/2025 1:10 AM EDT 4 mg Given 03/26/2025 8:17 PM EDT 4 mg HYDROmorphone (Dilaudid) tablet 4 mg 4 mg, Oral, Every 4 hours PRN, Starting on Fri03/27/25 at 0810, Until Fri03/29/25 at 0713, Routine, severe pain, moderate pain Given 03/29/2025 2:53 AM EDT 4 mg Given 03/28/2025 10:35 PM EDT 4 mg Given 03/28/2025 5:45 PM EDT 4 mg HYDROmorphone 1 mg/mL METAL SPRAY OPERATOR (naive protocol) Patient METAL SPRAY OPERATOR Dose: 0.2 mg, METAL SPRAY OPERATOR Lockout: 6 Minutes, Continuous Dose (MG/hr): 0 mg/hr, Nurse Loading Dose: Not Ordered, Intravenous, Routine New Syringe/Cartridge 03/24/2025 5:49 PM EDT New Syringe/Cartridge 03/23/2025 9:49 AM EDT insulin glargine-yfgn 100 UNIT/ML injection 20 Units 20 Units, Subcutaneous, Nightly, First dose (after last modification) on Fri03/24/25 at 2100, Until Discontinued, Routine Given 03/24/2025 9:15 PM EDT 20 Units Left Lower Abdomen insulin glargine-yfgn 100 UNIT/ML injection 26 Units 26 Units, Subcutaneous, Nightly, First dose (after last modification) on Fri03/25/25 at 2100, Until Discontinued, Routine Given 03/26/2025 9:22 PM EDT 26 Units Left Lower Abdomen Given 03/25/2025 9:42 PM EDT 26 Units Le ft Lower Abdomen insulin glargine-yfgn 100 UNIT/ML injection 30 Units 30 Units, Subcutaneous, Nightly, First dose (after last modification) on Fri03/27/25 at 2100, Until Discontinued, Routine Given 03/28/2025 8:30 PM EDT 30 Units Left Upper Arm (Back ) Given 03/27/2025 8:28 PM EDT 30 Units Le ft Upper Arm (Back) insulin glargine-yfgn 100 UNIT/ML injection 34 Units 34 Units, Subcutaneous, Nightly, First dose (after last modification) on Fri03/29/25 at 2100, Until Discontinued, Routine Given 03/29/2025 9:14 PM EDT 34 Units Left Upper Arm (Back ) insulin lispro (Admelog) 100 units/mL injection - Correction - Resistant Dose 0-10 Units, Subcutaneous, 3 times daily with meals, First dose on [facility] 03/24/25 at 0830, Until Discontinued, Routine Given 03/30/2025 9:01 AM EDT 2 Units Left Lower Abdomen Given 03/29/2025 1:20 PM EDT 4 Units Le ft Upper Arm (Back) Given 03/29/2025 9:21 AM EDT 2 Units Ri ght Upper Arm (Back) insulin lispro (Admelog) injection - Correction - Nighttime Dose 0-3 Units, Subcutaneous, 2 times nightly (2100 & 0300), First dose on [facility] 03/24/25 at 2100, Until Discontinued, Routine Given 03/26/2025 9:23 PM EDT 1 Units Left Lower Abdomen Insulin Lispro (Admelog, HumaLOG) 100 UNIT/ML injection 10 Units 10 Units, Subcutaneous, 3 times daily with meals, First dose (after last modification) on Fri03/27/25 at 0830, Until Discontinued, Routine Given 03/27/2025 1:24 PM EDT 10 Units Left Upper Arm (Back ) Given 03/27/2025 10:11 AM EDT 10 Units R ight Upper Arm (Back) Insulin Lispro (Admelog, HumaLOG) 100 UNIT/ML injection 12 Units 12 Units, Subcutaneous, 3 times daily with meals, First dose (after last modification) on Fri03/27/25 at 1730, Until Discontinued, Routine Given 03/29/2025 1:21 PM EDT 12 Units Left Upper Arm (Back ) Given 03/29/2025 9:23 AM EDT 12 Units Ri ght Upper Arm (Back) Given 03/28/2025 5:39 PM EDT 12 Units Le ft Upper Arm (Back) Insulin Lispro (Admelog, HumaLOG) 100 UNIT/ML injection 14 Units 14 Units, Subcutaneous, 3 times daily with meals, First dose (after last modification) on 03/29/25 at 1730, Until Discontinued, Routine Given 03/30/2025 9:00 AM EDT 14 Units Left Lower Abdomen Insulin Lispro (Admelog, HumaLOG) 100 UNIT/ML injection 4 Units 4 Units, Subcutaneous, 3 times daily with meals, First dose (after last modification) on [facility] 03/24/25 at 1730, Until Discontinued, Routine Given 03/25/2025 5:04 PM EDT 4 Units Left Lower Abdomen Given 03/25/2025 11:33 AM EDT 4 Units L eft Lower Abdomen Given 03/25/2025 8:36 AM EDT 4 Units Le ft Outer Thigh Insulin Lispro (Admelog, HumaLOG) 100 UNIT/ML injection 6 Units 6 Units, Subcutaneous, 3 times daily with meals, First dose (after last modification) on [facility] 03/26/25 at 0830, Until Discontinued, Routine Given 03/26/2025 1:47 PM EDT 6 Units Right Upper Arm (Katerin k) Given 03/26/2025 8:57 AM EDT 6 Units Ri ght Upper Arm (Back) Insulin Lispro (Admelog, HumaLOG) 100 UNIT/ML injection 8 Units 8 Units, Subcutaneous, 3 times daily with meals, First dose (after last modification) on [facility] 03/26/25 at 1730, Until Discontinued, Routine Given 03/26/2025 6:08 PM EDT 8 Units Left Upper Arm (Back) insulin regular in sodium chloride 0.9 % 1 UNIT/ML infusion (Standard Insulin Protocol) 0.5-30 Units/hr (0.5-30 mL/hr), Intravenous, Titrated, Starting on Fri03/22/25 at 1645, Until Fri03/24/25 at 1455, Routine, Recovery(Phase II-Outpatient)/On Unit(Inpatient) Rate/Dose Verify 03/24/2025 4:00 AM EDT 1.26 Units/hr 1.26 mL/hr Rate/Dose Verify 03/24/2025 2:00 AM EDT 1.26 Units/hr 1.26 mL/hr Rate Change - Dual Sign 03/24/2025 1:48 AM EDT 1.26 Units/ hr 1.26 mL/hr lactated Ringer's bolus 250 mL 250 mL, Intravenous, Once, 1 dose, On Brittany 03/24/25 at 0345, Administer over 2 Hours, Routine New Bag 03/24/2025 3:11 AM EDT 250 mL 125 mL/hr lidocaine (Lidoderm) 5 % patch 1 patch 1 patch, Apply externally, Every 24 hours, First dose on Fri03/22/25 at 2215, Until Discontinued, Administer over 12 Hours, Routine Medication Applied 03/26/2025 9:23 PM EDT 1 patch Chest Medication Applied 03/25/2025 9:49 PM EDT 1 patch Chest Medication Applied 03/24/2025 9:15 PM EDT 1 patch Chest lidocaine (Lidoderm) 5 % patch 2 patch 2 patch, Apply externally, Every 24 hours, First dose (after last modification) on 03/27/25 at 0930, Until Discontinued, Administer over 12 Hours, Routine Medication Applied 03/30/2025 9:05 AM EDT 2 patches Chest Medication Applied 03/29/2025 9:22 AM EDT 2 patches Other Medication Applied 03/28/2025 8:49 AM EDT 2 patches Chest magnesium hydroxide (Milk of Magnesia) 400 MG/5ML suspension 30 mL 30 mL, Oral, Daily, 3 doses, First dose on Brittany 03/24/25 at 0900, Last dose on [facility] 03/26/25 at 0900, Routine Given 03/25/2025 8:37 AM EDT 30 mL Given 03/24/2025 8:26 AM EDT 30 mL magnesium hydroxide (Milk of Magnesia) 400 MG/5ML suspension 30 mL 30 mL, Oral, Daily, 8 doses, First dose (after last modification) on [facility] 03/26/25 at 0900, Last dose on [facility] 04/02/25 at 0900, Routine, Recovery(Phase II-Outpatient)/On Unit(Inpatient) Given 03/30/2025 9:05 AM EDT 30 mL Given 03/29/2025 9:21 AM EDT 30 mL Given 03/28/2025 8:49 AM EDT 30 mL magnesium sulfate IVPB 2 g 2 g, Intravenous, Once, 1 dose, On Fri03/25/25 at 0600, at 25 mL/hr, Administer over 2 Hours, Routine New Bag 03/25/2025 5:09 AM EDT 2 g 25 mL/hr methocarbamol (Robaxin) tablet 1,000 mg 1,000 mg, Oral, 4 times daily, First dose (after last modification) on 03/26/25 at 0900, Until Discontinued, Routine, Recovery(Phase II-Outpatient)/On Unit(Inpatient) Given 03/30/2025 9:03 AM EDT 1,000 mg Given 03/29/2025 9:13 PM EDT 1,000 mg Given 03/29/2025 6:08 PM EDT 1,000 mg methocarbamol (Robaxin) tablet 500 mg 500 mg, Oral, 4 times daily, First dose on Fri03/22/25 at 2215, Until Discontinued, Routine Given 03/25/2025 10:05 PM EDT 500 mg Given 03/25/2025 5:04 PM EDT 500 mg Given 03/25/2025 1:50 PM EDT 500 mg metoprolol tartrate (Lopressor) split tablet 12.5 mg 12.5 mg, Oral, 2 times daily, First dose on Fri03/23/25 at 1330, Until Discontinued, Routine Given 03/30/2025 9:04 AM EDT 12.5 mg Given 03/29/2025 9:12 PM EDT 12.5 mg Given 03/29/2025 9:21 AM EDT 12.5 mg mupirocin (Bactroban) 2 % ointment 1 Application Each Nostril, 2 times daily, 10 doses, First dose on Fri03/22/25 at 2100, Last dose on Fri03/27/25 at 0900, Routine Given 03/27/2025 8:37 AM EDT 1 Application Given 03/26/2025 9:24 PM EDT 1 Application Given 03/26/2025 8:58 AM EDT 1 Application mupirocin (Bactroban) 2 % ointment 1 Application Each Nostril, 2 times daily, 8 doses, First dose on Fri03/22/25 at 2100, Last dose on Fri03/26/25 at 0900, Routine Given 03/22/2025 8:03 PM EDT 1 Application oxyCODONE (Roxicodone) immediate release tablet 10 mg 10 mg, Oral, Every 4 hours PRN, Starting on Fri03/22/25 at 1617, Until Fri03/23/25 at 0904, Routine, severe pain Given 03/23/2025 8:03 AM EDT 10 mg Given 03/23/2025 3:47 AM EDT 10 mg Given 03/22/2025 11:33 PM EDT 10 mg oxyCODONE (Roxicodone) immediate release tablet 10 mg 10 mg, Oral, Every 4 hours PRN, Starting on Fri03/29/25 at 1158, Until Fri03/30/25 at 1339, Routine, severe pain, For pain unrelieved by other interventions Given 03/30/2025 9:01 AM EDT 10 mg Given 03/30/2025 2:07 AM EDT 10 mg Given 03/29/2025 10:03 PM EDT 10 mg oxyCODONE (Roxicodone) immediate release tablet 5 mg 5 mg, Oral, Once, 1 dose, On Fri03/23/25 at 0245, Routine Given 03/23/2025 2:10 AM EDT 5 mg oxyCODONE (Roxicodone) immediate release tablet 5 mg 5 mg, Oral, Every 4 hours PRN, Starting on Fri03/29/25 at 0712, Until Fri03/29/25 at 1159, Routine, severe pain, For pain unrelieved by other interventions Given 03/29/2025 9:22 AM EDT 5 mg oxyCODONE (Roxicodone) immediate release tablet 5 mg 5 mg, Oral, Every 4 hours PRN, Starting on Fri03/29/25 at 1158, Until Fri03/30/25 at 1339, Routine, moderate pain, For pain unrelieved by other interventions pantoprazole (Protonix) EC tablet 40 mg 40 mg, Oral, Daily, First dose on Fri03/23/25 at 0900, Until Discontinued, Routine Given 03/30/2025 9:03 AM EDT 40 mg Given 03/29/2025 9:21 AM EDT 40 mg Given 03/28/2025 8:49 AM EDT 40 mg phosphorus (K Phos Neutral) tablet 1 tablet 1 tablet, Oral, Every 8 hours, 3 doses, First dose on Fri03/24/25 at 0800, Last dose on Fri03/25/25 at 0000, Routine Given 03/25/2025 12:01 AM EDT 1 tabl et Given 03/24/2025 4:13 PM EDT 1 tablet Given 03/24/2025 8:26 AM EDT 1 tablet polyethylene glycol (Miralax) packet 17 g 17 g, Oral, 2 times daily, First dose (after last modification) on Fri03/23/25 at 0900, Until Discontinued, Routine, Recovery(Phase II-Outpatient)/On Unit(Inpatient) Given 03/30/2025 9:05 AM EDT 17 g Given 03/29/2025 9:14 PM EDT 17 g Given 03/29/2025 9:24 AM EDT 17 g Povidone-Iodine 5 % swab solution 1 Application Nasal, Once, 1 dose, On Fri03/22/25 at 0700, Routine Given 03/22/2025 6:20 AM EDT 1 Application senna (Senokot) tablet 17.2 mg 17.2 mg, Oral, Nightly, First dose on Fri03/22/25 at 2100, Until Discontinued, Routine, Recovery(Phase II-Outpatient)/On Unit(Inpatient) Given 03/22/2025 8:03 PM EDT 17.2 mg senna (Senokot) tablet 17.2 mg 17.2 mg, Oral, 2 times daily, First dose (after last modification) on Fri03/23/25 at 0900, Until Discontinued, Routine, Recovery(Phase II-Outpatient)/On Unit(Inpatient) Given 03/30/2025 9:04 AM EDT 17.2 mg Given 03/29/2025 9:13 PM EDT 17.2 mg Given 03/29/2025 9:21 AM EDT 17.2 mg simethicone (Mylicon) chewable tablet 80 mg 80 mg, Oral, 4 times daily, First dose on Fri03/24/25 at 0900, Until Discontinued, Routine Given 03/29/2025 9:14 PM EDT 80 mg Given 03/29/2025 6:08 PM EDT 80 mg Given 03/29/2025 3:10 PM EDT 80 mg simethicone (Mylicon) chewable tablet 80 mg 80 mg, Oral, 4 times daily PRN, Starting on Fri03/30/25 at 0830, Until Fri03/30/25 at 1339, Routine, flatulence Given 03/30/2025 9:06 AM EDT 80 mg smog 30%-30%-30%-10% rectal enema 100 mL 100 mL, Rectal, Once as needed, 1 dose, Starting on Fri03/27/25 at 0957, Until Fri03/30/25 at 1339, Routine, Recovery(Phase II-Outpatient)/On Unit(Inpatient), constipation sodium chloride 0.9 % flush 10 mL 10 mL, Intravenous, Every 12 hours, First dose on Fri03/22/25 at 1730, Until Discontinued, Routine Given 03/29/2025 6:08 PM EDT 10 mL Given 03/28/2025 5:33 PM EDT 10 mL Given 03/27/2025 6:20 PM EDT 10 mL sodium chloride 0.9 % flush 10 mL 10 mL, Intravenous, Every 1 hour PRN, Starting on Fri03/22/25 at 1637, Until Fri03/30/25 at 1339, Routine, Flush Before and After EVERY dose of medication. sodium chloride 0.9 % flush 20 mL 20 mL, Intravenous, Every 1 hour PRN, Starting on Fri03/22/25 at 1637, Until Fri03/30/25 at 1339, Routine, After blood draws and if any blood seen in tubing. sodium chloride 0.9 % infusion 5 mL/hr, Intravenous, Continuous, Starting on Fri03/23/25 at 1000, Until 03/26/25 at 0044, Routine Rate/Dose Verify 03/24/2025 12:00 AM EDT 5 mL/hr 5 mL/hr Rate/Dose Verify 03/23/2025 10:00 PM EDT 5 mL/hr 5 mL/h r Rate/Dose Verify 03/23/2025 9:00 PM EDT 5 mL/hr 5 mL/hr Sodium Phosphate-NaCl IVPB 15 mmol 15 mmol, Intravenous, Once, 1 dose, On Fri03/22/25 at 1915, Routine Given 03/22/2025 8:15 PM EDT 15 mmol 25 mL/hr Sodium Phosphate-NaCl IVPB 15 mmol 15 mmol, Intravenous, Once, 1 dose, On Fri03/23/25 at 0200, Routine Given 03/23/2025 1:59 AM EDT 15 mmol 25 mL/hr sodium phosphates 30 mmol in sodium chloride 0.9 % 100 mL IVPB 30 mmol, Intravenous, Once, 1 dose, On Fri03/25/25 at 0600, Routine New Bag 03/25/2025 6:23 AM EDT 30 mmol 30 mL/hr sugammadex (Bridion) 200 MG/2ML injection - Pyxis Override Pull 1 dose, Starting on Fri03/22/25 at 1654, Until Fri03/22/25 at 1814 Given by Other 03/22/2025 6:14 PM EDT traMADol (Ultram) tablet 50 mg 50 mg, Oral, Every 6 hours, First dose on Fri03/27/25 at 0930, Until Discontinued, Routine Given 03/30/2025 10:30 AM EDT 50 mg Given 03/30/2025 3:40 AM EDT 50 mg Given 03/29/2025 9:13 PM EDT 50 mg documented in this encounter Active and Recently Administered Medications Times are shown in EDT. Scheduled Medication Order 03/28/2025 03/29/2025 03/30/2025 acetaminophen (Tylenol) tablet 1,000 mg 1,000 mg, Oral, Every 6 hours scheduled, First dose (after last modification) on Fri03/27/25 at 1200, Until Discontinued, Routine, Recovery(Phase II-Outpatient)/On Unit(Inpatient) 0025 (Given - Provider: Afshan Roca RN)0648 (Given - Provider: Afshan Roca RN)1322 (Given - Provider: Maureen Bang RN)1733 (Given - Provider: Sonia Martell RN) 0025 (Given - Provider: Afshan Roca RN)0611 (Given - Provider: Afshan Roca RN)1257 (Given - Provider: Beverly Meeks RN)1808 (Given - Provider: Beverly Meeks RN) 0054 (Given - Provider: Afshan Roca RN)0616 (Given - Provider: Afshan Roca RN)1200 (Canceled Entry - Provider: Automatic Discharge Provider - Comment: Automatically canceled at discontinue of medication order) allopurinol (Zyloprim) tablet 300 mg 300 mg, Oral, Daily, First dose on Fri03/23/25 at 1400, Until Discontinued, Routine 0847 (Given - Provider: Maureen Bang RN) 0921 (Given - Provider: Beverly Meeks RN) 0905 (Given - Provider: Gulshan Mendoza RN) aspirin chewable tablet 81 mg 81 mg, Oral, Daily, First dose on Fri03/23/25 at 0900, Until Discontinued, Routine, Recovery(Phase II-Outpatient)/On Unit(Inpatient) 0848 (Given - Provider: Maureen Bang RN) 09 (Given - Provider: Beverly Meeks RN) 09 (Given - Provider: Gulshan Mendoza RN) atorvastatin (Lipitor) tablet 80 mg 80 mg, Oral, Nightly, First dose on Fri03/22/25 at 2100, Until Discontinued, Routine, Recovery(Phase II-Outpatient)/On Unit(Inpatient) 2028 (Given - Provider: Afshan Roca RN) 2112 (Given - Provider: Afshan Roca RN) docusate sodium (Colace) capsule 100 mg 100 mg, Oral, 2 times daily, First dose on Fri03/22/25 at 2100, Until Discontinued, Routine, Recovery(Phase II-Outpatient)/On Unit(Inpatient) 0850 (Given - Provider: Maureen Bang RN)2029 (Given - Provider: Afshan Roca RN) 919 (Given - Provider: Beverly Meeks RN)2111 (Given - Provider: Afshan Roca RN) 902 (Given - Provider: Gulshan Mendoza RN) fenofibrate (Tricor) tablet 145 mg 145 mg, Oral, Daily, First dose on Fri03/23/25 at 1400, Until Discontinued, Routine 0847 (Given - Provider: Maureen Bang RN) 0921 (Given - Provider: Beverly Meeks RN) 902 (Given - Provider: Gulshan Mendoza RN) furosemide (Lasix) tablet 40 mg 40 mg, Oral, Daily, First dose on Fri03/25/25 at 0915, Until Discontinued, Routine 0849 (Given - Provider: Maureen Bang RN) 0920 (Given - Provider: Beverly Meeks RN) 09 (Given - Provider: Gulshan Mendoza RN) gabapentin (Neurontin) capsule 300 mg 300 mg, Oral, 2 times daily, First dose on Fri03/23/25 at 0900, Until Discontinued, Routine 0848 (Given - Provider: Maureen Bang RN)2029 (Given - Provider: Afshan Roca RN) 0921 (Given - Provider: Beverly Meeks, LISSY)211 (Given - Provider: Afshan Roca RN) 09 (Given - Provider: Gulshan Mendoza RN) heparin (porcine) injection 5,000 Units 5,000 Units, Subcutaneous, Every 8 hours scheduled, First dose on Fri03/23/25 at 0600, Until Discontinued, Routine, Recovery(Phase II-Outpatient)/On Unit(Inpatient) 0649 (Given - Provider: Afshan Roca RN)1322 (Given - Provider: Maureen Bang RN)2137 (Given - Provider: Afshan Roca RN) 0611 (Given - Provider: Afshan Roca RN)1509 (Given - Provider: Beverly Meeks RN)2113 (Given - Provider: Afshan Roca RN) 0616 (Given - Provider: Afshan Roca RN) insulin glargine-yfgn 100 UNIT/ML injection 30 Units (CANCELED) 30 Units, Subcutaneous, Nightly, First dose (after last modification) on Fri03/27/25 at 2100, Until Discontinued, Routine 2029 (Given - Provider: Afshan Roca RN) insulin glargine-yfgn 100 UNIT/ML injection 34 Units 34 Units, Subcutaneous, Nightly, First dose (after last modification) on Fri03/29/25 at 2100, Until Discontinued, Routine 2113 (Given - Provider: Afshan Roca RN) insulin lispro (Admelog) 100 units/mL injection - Correction - Resistant Dose 0-10 Units, Subcutaneous, 3 times daily with meals, First dose on Fri03/24/25 at 0830, Until Discontinued, Routine 0850 (Given - Provider: Maureen Bang, LISSY)1323 (Given - Provider: Maureen Bang RN)1738 (Given - Provider: Sonia Martell RN) 0921 (Given - Provider: Beverly Meeks, LISSY)1320 (Given - Provider: Beverly Meeks, LISSY)1800 (Not Given - Provider: Beverly Meeks RN - Reason: Hold for condition: must add comment - Comment: pt. not done eating dinner yet) 0901 (Given - Provider: Gulshan Mendoza RN)1230 (Canceled Entry - Provider: Automatic Discharge Provider - Comment: Automatically canceled at discontinue of medication order) insulin lispro (Admelog) injection - Correction - Nighttime Dose 0-3 Units, Subcutaneous, 2 times nightly (2100 & 0300), First dose on Fri03/24/25 at 2100, Until Discontinued, Routine 0334 (Not Given - Provider: Afshan Roca RN - Reason: Order parameters not met - Comment: 2100 BG of 161)203 (Not Given - Provider: Afshan Roca RN - Reason: Order parameters not met) 0248 (Not Given - Provider: Afshan Roca RN - Reason: Order parameters not met - Comment: 2100 BG of 179)2121 (Not Given - Provider: Afshan Roca RN - Reason: Order parameters not met) 0258 (Not Given - Provider: Afshan Roca RN - Reason: Order parameters not met - Comment: 2100 BG of 226) Insulin Lispro (Admelog, HumaLOG) 100 UNIT/ML injection 12 Units (CANCELED) 12 Units, Subcutaneous, 3 times daily with meals, First dose (after last modification) on Fri03/27/25 at 1730, Until Discontinued, Routine 0850 (Given - Provider: Maureen Bang, RN)1323 (Given - Provider: Maureen Bang, RN)1739 (Given - Provider: Sonia Martell RN) 0923 (Given - Provider: Beverly Meeks, LISSY)1321 (Given - Provider: Beverly Meeks, LISSY) Insulin Lispro (Admelog, HumaLOG) 100 UNIT/ML injection 14 Units 14 Units, Subcutaneous, 3 times daily with meals, First dose (after last modification) on Fri03/29/25 at 1730, Until Discontinued, Routine 1800 (Not Given - Provider: Beverly Meeks RN - Reason: Hold for condition: must add comment - Comment: pt. not done eating dinner yet) 0900 (Given - Provider: Gulshan Mendoza RN)1230 (Canceled Entry - Provider: Automatic Discharge Provider - Comment: Automatically canceled at discontinue of medication order) lidocaine (Lidoderm) 5 % patch 2 patch 2 patch, Apply externally, Every 24 hours, First dose (after last modification) on 03/27/25 at 0930, Until Discontinued, Administer over 12 Hours, Routine 0849 (Medication Applied - Provider: Maureen Bang RN)203 (Medication Removed - Provider: Afshan Roca, LISSY) 0922 (Medication Applied - Provider: Beverly Meeks RN - Comment: chest)2121 (Medication Removed - Provider: Afshan Roca RN) 0905 (Medication Applied - Provider: Gulshan Mendoza RN)1138 (Due: Medication Removed - Provider: Automatic Discharge Provider - Comment: Time automatically adjusted from order being discontinued) magnesium hydroxide (Milk of Magnesia) 400 MG/5ML suspension 30 mL 30 mL, Oral, Daily, 8 doses, First dose (after last modification) on 03/26/25 at 0900, Last dose on 04/02/25 at 0900, Routine, Recovery(Phase II-Outpatient)/On Unit(Inpatient) 0849 (Given - Provider: Marueen Bang RN) 0921 (Given - Provider: Beverly Meeks RN) 0905 (Given - Provider: Gulshan Mendoza RN) methocarbamol (Robaxin) tablet 1,000 mg 1,000 mg, Oral, 4 times daily, First dose (after last modification) on 03/26/25 at 0900, Until Discontinued, Routine, Recovery(Phase II-Outpatient)/On Unit(Inpatient) 0848 (Given - Provider: Maureen Bang RN)1322 (Given - Provider: Maureen Bang RN)1732 (Given - Provider: Sonia Martell RN)2137 (Given - Provider: Afshan Roca RN) 0921 (Given - Provider: Beverly Meeks RN)1510 (Given - Provider: Beverly Meeks RN)1808 (Given - Provider: Beverly Meeks RN)2113 (Given - Provider: Afshan Roca RN) 0903 (Given - Provider: Gulshan Mendoza RN) metoprolol tartrate (Lopressor) split tablet 12.5 mg 12.5 mg, Oral, 2 times daily, First dose on Fri03/23/25 at 1330, Until Discontinued, Routine 0847 (Given - Provider: Maureen Bang RN)2028 (Given - Provider: Afshan Roca, LISSY) 920 (Given - Provider: Beverly Meeks, LISSY)2111 (Given - Provider: Afshan Roca RN) 09 (Given - Provider: Gulshan Mendoza RN) pantoprazole (Protonix) EC tablet 40 mg 40 mg, Oral, Daily, First dose on Fri03/23/25 at 0900, Until Discontinued, Routine 0849 (Given - Provider: Maureen Bang RN) 920 (Given - Provider: Beverly Meeks RN) 902 (Given - Provider: Gulshan Mendoza, LISSY) polyethylene glycol (Miralax) packet 17 g 17 g, Oral, 2 times daily, First dose (after last modification) on Fri03/23/25 at 0900, Until Discontinued, Routine, Recovery(Phase II-Outpatient)/On Unit(Inpatient) 0849 (Given - Provider: Maureen Bang RN)2029 (Given - Provider: Afshan Roca RN) 923 (Given - Provider: Beverly Meeks, LISSY)2113 (Given - Provider: Afshan Roca RN) 09 (Given - Provider: Gulshan Mendoza, LISSY) senna (Senokot) tablet 17.2 mg 17.2 mg, Oral, 2 times daily, First dose (after last modification) on Fri03/23/25 at 0900, Until Discontinued, Routine, Recovery(Phase II-Outpatient)/On Unit(Inpatient) 0849 (Given - Provider: Maureen Bang RN)2028 (Given - Provider: Afshan Roca RN) 920 (Given - Provider: Beverly Meeks RN)2112 (Given - Provider: Afshan Roca RN) 09 (Given - Provider: Gulshan Mendoza, LISSY) simethicone (Mylicon) chewable tablet 80 mg (CANCELED) 80 mg, Oral, 4 times daily, First dose on Fri03/24/25 at 0900, Until Discontinued, Routine 0849 (Given - Provider: Maureen Bang, RN)1323 (Given - Provider: Maureen Bang RN)1732 (Given - Provider: Sonia Martell RN)2137 (Given - Provider: Afshan Roca RN) 0920 (Given - Provider: Beverly Meeks, LISSY)1510 (Given - Provider: Beverly Meeks RN)1808 (Given - Provider: Beverly Meeks RN)211 (Given - Provider: Afshan Roca RN) sodium chloride 0.9 % flush 10 mL 10 mL, Intravenous, Every 12 hours, First dose on Fri03/22/25 at 1730, Until Discontinued, Routine 0501 (Return to Cabinet - Provider: Afshan Roca RN)1733 (Given - Provider: Sonia Martell RN) 0454 (Return to Cabinet - Provider: Afshan Roca RN)1808 (Given - Provider: Beverly Meeks RN) 0509 (Return to Cabinet - Provider: Afshan Roca RN) traMADol (Ultram) tablet 50 mg 50 mg, Oral, Every 6 hours, First dose on Fri03/27/25 at 0930, Until Discontinued, Routine 0336 (Given - Provider: Afshan Roca RN)0849 (Given - Provider: Maureen Bang RN)1436 (Given - Provider: Maureen Bang RN)2031 (Given - Provider: Afshan Roca RN) 0410 (Given - Provider: Afshan Roca RN)0919 (Given - Provider: Beverly Meeks RN)1510 (Given - Provider: Beverly Meeks RN)2113 (Given - Provider: Afshan Roca RN) 0340 (Given - Provider: Afshan Roca RN)1030 (Given - Provider: Gulshan Mendoza RN) PRN Medication Order 03/28/2025 03/29/2025 03/30/2025 bisacodyl (Dulcolax) suppository 10 mg 10 mg, Rectal, Daily PRN, Starting on 03/26/25 at 1050, Until Fri03/30/25 at 1339, Routine, constipation 1323 (Given - Provider: Maureen Bang RN) HYDROmorphone (Dilaudid) injection 0.5 mg (CANCELED) 0.5 mg, Intravenous, Every 8 hours PRN, Starting on 03/27/25 at 0834, Until Fri03/29/25 at 0653, Routine, severe pain, moderate pain, only to be used 30 minutes after po diluadid 0203 (Given - Provider: Afshan Roca RN) HYDROmorphone (Dilaudid) tablet 4 mg (CANCELED) 4 mg, Oral, Every 4 hours PRN, Starting on 03/27/25 at 0810, Until Fri03/29/25 at 0713, Routine, severe pain, moderate pain 0025 (Given - Provider: Afshan Roca RN)0433 (Given - Provider: Afshan Roca RN)1039 (Return to [facility] - Provider: Maureen Bang RN)1745 (Given - Provider: Sonia Martell RN)2235 (Given - Provider: Afshan Roca RN) 0253 (Given - Provider: Afshan Roca RN) ondansetron (Zofran) injection 4 mg 4 mg, Intravenous, Every 6 hours PRN, Starting on 03/22/25 at 1549, Until Fri03/30/25 at 1339, Routine, Recovery(Phase II-Outpatient)/On Unit(Inpatient), nausea, vomiting oxyCODONE (Roxicodone) immediate release tablet 10 mg 10 mg, Oral, Every 4 hours PRN, Starting on Fri03/29/25 at 1158, Until Fri03/30/25 at 1339, Routine, severe pain, For pain unrelieved by other interventions 1319 (Given - Provider: Beverly Meeks RN)1324 (See Alternative - Provider: Beverly Meeks RN)1806 (Given - Provider: Beverly Meeks RN)2203 (Given - Provider: Afshan Roca RN) 0207 (Given - Provider: Afshan Roca RN - Comment: pt requested 10 mg dose)0901 (Given - Provider: Gulshan Mendoza RN) oxyCODONE (Roxicodone) immediate release tablet 5 mg (CANCELED)(Linked Group 1) 5 mg, Oral, Every 4 hours PRN, Starting on Fri03/29/25 at 0712, Until Fri03/29/25 at 1159, Routine, severe pain, For pain unrelieved by other interventions 0922 (Given - Provider: Beverly Meeks RN) oxyCODONE (Roxicodone) immediate release tablet 5 mg 5 mg, Oral, Every 4 hours PRN, Starting on Fri03/29/25 at 1158, Until Fri03/30/25 at 1339, Routine, moderate pain, For pain unrelieved by other interventions 1319 (See Alternative - Provider: Beverly Meeks RN)1324 (Canceled Entry - Provider: Beverly Meeks RN)1806 (See Alternative - Provider: Beverly Meeks RN)2203 (See Alternative - Provider: Afshan Roca RN) 0207 (See Alternative - Provider: Afshan Roca RN)0901 (See Alternative - Provider: Gulshan Mendoza RN) simethicone (Mylicon) chewable tablet 80 mg 80 mg, Oral, 4 times daily PRN, Starting on Fri03/30/25 at 0830, Until Fri03/30/25 at 1339, Routine, flatulence 0906 (Given - Provider: Gulshan Mendoza RN) smog 30%-30%-30%-10% rectal enema 100 mL 100 mL, Rectal, Once as needed, 1 dose, Starting on Fri03/27/25 at 0957, Until Fri03/30/25 at 1339, Routine, Recovery(Phase II-Outpatient)/On Unit(Inpatient), constipation sodium chloride 0.9 % flush 10 mL 10 mL, Intravenous, Every 1 hour PRN, Starting on Fri03/22/25 at 1637, Until Fri03/30/25 at 1339, Routine, Flush Before and After EVERY dose of medication. sodium chloride 0.9 % flush 20 mL 20 mL, Intravenous, Every 1 hour PRN, Starting on Fri03/22/25 at 1637, Until Fri03/30/25 at 1339, Routine, After blood draws and if any blood seen in tubing. Linked Groups Order Group 1: oxyCODONE (Roxicodone) immediate release tablet 5 mg (CANCELED)Jump to med 5 mg, Oral, Every 4 hours PRN, Starting on Fri03/29/25 at 0712, Until Fri03/29/25 at 1159, Routine, severe pain, For pain unrelieved by other interventions Or oxyCODONE (Roxicodone) immediate release tablet 10 mg (CANCELED) 10 mg, Oral, Every 4 hours PRN, Starting on Fri03/29/25 at 0712, Until Fri03/29/25 at 1159, Routine, severe pain, For pain unrelieved by other interventions documented in this encounter Additional Health Concerns Active Problems Noted Date Diagnosed Date Autogenerated Problem 02/17/2025 Assessment Noted Time A fall risk assessment has been complete d for the patient 03/21/2025 12:53 PM EDT A Body Mass Index follow-up plan has been documented for the patient 03/30/2025 10:55 AM EDT documented as of this encounter Care Teams Operations Liaison Relationship Specialty Start Date End Date David Iverson MD PCP - General 06/06/22 Ludin Gonzalez MD [address] [place] [address] Referring Physician 02/18/25 documented as of this encounter
--- OUTSIDE RECORDS SUMMARY | 2025-03-22 07:39 | XMS_ITS | Encounter Summary ---
Author Organization Healthcare Address [address] 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 Name Role Phone David Iverson MD Primary Care Provider [phone] Ludin Gonzalez MD Unavailable [phone] Reason for Visit * Auth/Cert (Routine) Specialty Diagnoses / Procedures Referred By Contac t Referred To Contact Diagnoses Coronary artery disease due to calcified coronary lesion Coronary artery disease due to calcified coronary lesion [I25.10, I25.84] Procedures MA CABG, VEIN, THREE CABG, 2 OR MORE VESSELS Musa Rosado MD [address] [facility] [address] [place] [address] Phone: tel: fax: [facility] [address] [place] [address] Phone: tel: Referral ID Status Reason Start Date Expiration Date Visits Re quested Visits Authorized [id number] 1 1 Encounter Details Date Type Department Care Team (Late st Contact Info) Description 03/22/2025 7:39 AM EDT Anesthesia Event [facility] [address] [place] [address] Nati Aranda MD [address] [place] [address] Shelley Bridges Anesthesia Record Procedure Summary Procedure Name Responsible [...] Labs 1123 ACT Performed 534s 1140 [place] retracted per surgeon's request. Now 40cm at [...] acknowledgement of understanding. 1622 An Stop Meds Name Total midazolam (Versed) injection 1 mg/mL 10 mg propofol (Diprivan) injection 10 mg/mL 2 30 mg rocuronium (ZeMuron) injection 10 mg/mL 230 mg fentaNYL (Sublimaze) injection 50 mcg/mL 1,250 mcg protamine injection 350 mg lidocaine PF (Xylocaine-MPF) 2% 100 mg ceFAZolin (Ancef) injection 2 g 4 g insulin regular injection in 0.9% NS 1 u nit/mL 57 Units insulin regular infusion in 0.9% NS 1 Un it/mL 28.8 Units cardioplegia Iraida-Darlene solution 2, 800 mL heparin (porcine) injection 1,000 units/ mL 40,000 Units heparin (porcine) injection 1,000 units/ mL 30,000 Units phenylephrine (Vazculep) injection 10 mg /mL 7,750 mcg sodium bicarbonate injection 1 mEq/mL 50 mEq magnesium sulfate 4 g in sodium chloride 0.9 % 100 mL IVPB 2 g tranexamic acid (Cyklokapron) injection 100 mg/mL 1,000 mg tranexamic acid (Cyklokapron ) 1,000 mg in sodium chloride 0.9 % 100 mL (10 mg/mL) infusion 662.89 mg desmopressin (DDAVP) injection 31.65 mcg vasopressin (Vasostrict) injection 20 Un its/mL 2 Units albumin human 5% 500 mL dexmedetomidine (Precedex) infusion in N aCl 4 mcg/mL 20 mcg lactated Ringer's infusion 0 mL sodium chloride 0.9 % infusion 0 mL sodium chloride 0.9 % infusion 0 mL * Agents Name O2 Air Isoflurane Inspired Isoflurane * Blood No blood administrations on file. Lines, Drains, and Airways Type Details Placement Removal Wound 03/22/25; 0855; N; Surgical (incision); Sternum 03/22/25 0855 by Jong Esparza RN Wound 03/22/25; 0855; N; Surgical (incision); Pretibial; Proximal, Right 03/22/25 0855 by Jong Esparza RN Peripheral IV Placement Date: 03/22/25; Placement Time: 0635; Orientation: Posterior, Right; Location: Wrist; Site Prep: Chlorhexidine ; Local Anesth: [place]; Technique: Anatomical landmarks; Inserted by: tanya rojas [...] Resident ; Removal Date: 03/22/25; Removal Time: 18003/22/25 0803 by Temo Mendoza MD 03/22/25 180 by Muna Jaramillo Urethral Catheter Placement Date: 03/22/25; Placement Time: 08; Type: Non-latex, Temperature probe; Size: 16 Fr.; Balloon Size: 10 mL; Urine Returned: Yes; Removal Date: 03/24/25; Removal Time: 10303/22/25 0805 by Jong Esparza RN 03/24/25 103 by Beverly Alonso RN Arterial Line Placement Date: 03/22/25; Placement Time: 08 (created via procedure documentation); Size: 20 G; Orientation: Right; Location: Radial; Inserted by: Resident; Securement: Sutured; Patient Tolerance: Tolerated well; Removal Date: 03/24/25; Removal Time: 173; Removal Reason: Per order 03/22/25 0847 by Temo Mendoza MD 03/24/25 173 by Beverly Alonso RN CVC Double Lumen [...] Mendoza MD 03/23/25 1415 by Jose Alberto Collins, RN Negative Pressure Wound Therapy 03/22/25; 1000; [...] Location: Mediastinal; Size: 36 Fr; Drainage System: Locke/nonsuction water seal drainage; Removal Date: 03/24/25; Removal [...] were you homeless or living in a nursing home (including now)? No 03/23/2025 Utilities Answer Date Recorded In the past 12 months has th e electric, gas, oil, or water company threatened to shut off services in your home? No 03/23/2025 PHQ-2A Answer Date Recorded Depression Risk 0 03/21/2025 Sex and Gender Information Value Date Recorded Sex Assigned at Not on file Legal Sex Male 8:07 PM EDT Gender Identity Not on file Sexual Orientation Not on file documented as of this encounter Functional Status * Calculated C-SSRS Risk Score (Lifetime/Recent) Answer Date of Assessment Author No Risk Indicated 03/22/2025 11:00 PM EDT Kelly Haynes RN * Question Answer Date of Assessment Author 1. Wish to be (Past 1 Month) No 025 11:00 PM EDT Kelly Haynes RN 2. Non-Specific Active Suici beverley Thoughts (Past 1 Month) No 03/22/2025 11:00 PM EDT Kelly Haynes RN 6. Suicidal Behavior (Lifetime) No 11:00 PM EDT Kelly Haynes RN documented as of this encounter Miscellaneous Notes * Anesthesia Postprocedure Evaluation - Temo Mendoza MD - 03/22/2025 4:22 PM EDT Patient: Lizandro Sprague Anesthesia Type: general Vitals Value Taken Time BP 106/52 03/22/25 16:22 Temp See RN flowsheet 03/22/25 16:22 Pulse 77 03/22/25 16:20 Resp 16 03/22/25 16:20 SpO2 100 % 03/22/25 16:20 Vitals shown include unfiled device data. Anesthesia Post Evaluation Patient location during evaluation: ICU Patient participation: complete - patient cannot participate Level of consciousness: sedated and responsive to physical stimuli Pain management: adequate (pain score 0-3) Airway patency: endotracheal device Cardiovascular status: acceptable and hemodynamically stable Respiratory status: acceptable and ETT Hydration status: acceptable Nausea/Vomiting: No Comments: Transported to ICU with transport monitor, hemodynamically stable throughout. Handoff given to ICU team, all questions answered. Reversal agent to be administered by ICU team when appropriate. No notable events documented. Cosigned by Nati Aranda MD at 03/22/2025 6:27 PM EDT Associated attestation - Nati Aranda MD - 03/22/2025 6:27 PM EDT I agree with the findings and care plan documented in the postprocedure evaluation note. * Anesthesia Procedure Notes - Ludin Aguiar MD - 03/22/2025 9:51 AM EDT Associated Order(s): CHERYL Procedure Performed: CHERYL General Procedure Information Diagnostic Indications for CHERYL: assessment of ascending aorta, assessment of surgical repair, defect repair evaluation, hemodynamic monitoring Physician Requesting Echo: Musa Rosado MD Location performed: OR Modalities: 2D only, 3D only, color flow mapping, continuous wave Dopper and pulse wave doppler Consent given by: PatientIntubated Bite block placed Heart visualized Probe Insertion: Easy Probe Type: Multiplane Preanesthesia Checklist: Patient identified, IV checked, risks and benefits discussed, surgical consent, monitors and equipment checked and pre-op evaluation. Echocardiographic and Doppler Measurements Ventricles Right Ventricle: Cavity size moderately dilated. Hypertrophy not present. Thrombus not present. Global function normal. Left Ventricle: Cavity size normal. Hypertrophy not present. Thrombus not present. Global Function mildly impaired.Ejection Fraction 50%. Valves Aortic Valve: Annulus normal. Stenosis not present. Regurgitation absent. Leaflets normal. Leaflet motions normal. Mitral Valve: Annulus normal. Stenosis not present. Regurgitation +1. Leaflets normal. Leaflet motions normal. Tricuspid Valve: Annulus normal. Stenosis not present. Regurgitation +1. Leaflets normal. Leaflet motions normal. Pulmonic Valve: Annulus normal. Stenosis not present. Regurgitation +1. Leaflets normal. Aorta Ascending Aorta: Size normal. Dissection not present. Plaque thickness less than 3 mm. Mobile plaque not present. Aortic Arch: Size normal. Dissection not present. Plaque thickness less than 3 mm. Mobile plaque not present. Descending Aorta: Size normal. Dissection not present. Plaque thickness less than 3 mm. Mobile plaque not present. Atria Right Atrium: Size normal. Spontaneous echo contrast not present. Thrombus not present. Left Atrium: Size normal. Spontaneous echo contrast not present. Thrombus not present. Left atrial appendage normal. Septa Atrial Septum: Intra-atrial septal morphology contains patent foramen ovale. Other atrial septal defect findings: Tiny PFO with left to right shutn Other Findings Pericardium: normal Pleural Effusion: none Pulmonary Arteries: normal Pulmonary Venous Flow: normal Postprocedure Post Cardiac Surgery/Repair: Right ventricular post CPB function is preserved. Left ventricular post CPB function is preserved. All valve function preserved. Status: Aorta intact after decannulation. Information obtained during CHERYL exam relayed to the referring surgeon/physician. Anesthesia Information Performed Resident Anesthesiologist: Nati Aranda MD Resident: Ludin Aguiar MD Echocardiogram Comments: 45 y.o. male with IDDMT2 and mvCAD undergoing CABG Pre-CPB: - LV normal size and borderline function (LVEF 50-55%), normal diastolic function; no RWMA. RV moderate dilated with normal function - Aortic valve trileaflet without stenosis or insufficiency. Trace MR. Mild TR. Mild PI. - Tiny PFO with left to right shunt - MILES free of thrombus - Descending thoracic aorta with diffuse grade II atheromatous disease Post-CPB: - LV underfilled with normal function. No wall motion abnormalities. RV dilated with mild dysfunction - Valves unchanged in function. - Aorta intact following decannulation Cosigned by Nati Aranda MD at 03/22/2025 6:28 PM EDT Associated attestation - Nati Aranda MD - 03/22/2025 6:28 PM EDT I was present during all critical and gibbs portions of the procedure(s) and [facility]. See resident note for details. * Anesthesia Procedure Notes - Temo Mendoza MD - 03/22/2025 8:47 AM EDT Associated Order(s): Central Venous Line Central Venous Line: A central venous line was placed in the OR for the following indication(s): CVP monitoring. Sterility preparation included the following: provider hand hygiene performed prior to central venous catheter insertion, all 5 sterile barriers used (gloves, gown, cap, mask, large sterile drape) during central venous catheter insertion, antiseptic used during central venous catheter insertion andskin prep agent completely dried prior to procedure. The patient was placed in Trendelenburg position. The site was prepped with Chlorhexidine. A 9 Fr (size), introducer double lumen was placed. This catheter was an oximetric catheter. During the procedure, the following specific steps were taken: target vein identified, needle advanced into vein and blood aspirated and guidewire advanced into vein. Seldinger technique used Procedure performed using ultrasound guidance Sterile gel and probe cover used in ultrasound-guided central venous catheter insertion. Intravenous verification was obtained by ultrasound, venous blood return and manometry. Post insertion care included: all ports aspirated, all ports flushed easily, guidewire removed intact, Biopatch applied, line sutured in place and dressing applied. During the procedure the patient experienced: patient tolerated procedure well with no complications. PA Catheter Placed A oximetric, 8 (size) Pulmonary Artery Catheter (PAC) was placed through the Introducer CVL in the right internal jugular vein. The PAC placement was confirmed by pressure tracing changes and CHERYL. The patient experienced the following events during the procedure: patient tolerated procedure wellwith no complications. Staffing Performed: Resident Anesthesiologist: Nati Aranda MD Resident: Temo Mendoza MD Cosigned by Nati Aranda MD at 03/22/2025 9:11 AM EDT Associated attestation - Nati Aranda MD - 03/22/2025 9:11 AM EDT I was present during all critical and gibbs portions of the procedure(s) and [facility]. See resident note for details. * Anesthesia Procedure Notes - Temo Mendoza MD - 03/22/2025 8:47 AM EDT Associated Order(s): Arterial Line Arterial Line: An arterial line was placed. Procedure performed using ultrasound guidance in the OR for the following indication(s): continuousblood pressure monitoring and blood sampling needed. A 20 gauge (size), 1 and 3/4 inch (length), Arrow (type) catheter was placed into the Right radial artery and secured by suture. Seldinger technique used Events: patient tolerated procedure well with no complications. Staffing Performed: Resident Anesthesiologist: Nati Aranda MD Resident: Temo Mendoza MD Cosigned by Nati Aranda MD at 03/22/2025 9:11 AM EDT Associated attestation - Nati Aranda MD - 03/22/2025 9:11 AM EDT I was present during all critical and gibbs portions of the procedure(s) and [facility] See resident note for details. * Anesthesia Procedure Notes - Temo Mendoza MD - 03/22/2025 8:47 AM EDT Associated Order(s): Airway Airway Date/Time: 03/22/2025 8:03 AM Reason: elective Airway not difficult General Information and Staff Patient location during procedure: OR Anesthesiologist: Nati Aranda MD Resident: Temo Mendoza MD Performed: Resident Patient Condition Indications for airway management: anesthesia Patient position: sniffing Final Airway Details Final airway type: endotracheal airway Successful airway: ETT Cuffed: yes Successful intubation technique: direct laryngoscopy Adjuncts used in placement: intubating stylet Endotracheal tube insertion site: oral Blade: [place] Blade size: #4 ETT size (mm): 8.0 Cormack-Lehane Classification: grade I - full view of glottis Placement verified by: chest auscultation and capnometry Measured from: teeth ETT to teeth (cm): 22 Additional Comments Atraumatic. No change to dentition. Cosigned by Nati Aranda MD at 03/22/2025 9:11 AM EDT Associated attestation - Nati Aranda MD - 03/22/2025 9:11 AM EDT I was present during all critical and gibbs portions of the procedure(s) and [facility]. See resident note for details. * Anesthesia Preprocedure Evaluation - Nati Aranda MD - 03/22/2025 6:32 AM EDT Images from the original note were not included. Patient: Lizandro Sprague Procedure Information Date/Time: 03/22/25 0745 Procedure: CABG, 2 OR MORE VESSELS Location: [facility] OR [address] [place] [address] OR Surgeons: Musa Rosado MD HPI Lizandro Sprague is a 45 y.o. male who presents with Pre-op Diagnosis * Coronary artery disease due to calcified coronary lesion [I25.10, I25.84] now scheduled for CABG, 2 OR MORE VESSELS (N/A) with Musa Rosado MD on 03/22/2025 in [facility]. HTN, HLD, DM2 with neuropathy, CKD 3, and GERD [Past Medical History] [Past Medical History] Diagnosis Date Chronic kidney disease Coronary artery disease GERD (gastroesophageal reflux disease) Hyperlipidemia Hypertension Type 2 diabetes mellitus [Family History] [Family History] Problem Relation Name Age of Onset Hypertension Mother Diabetes type II Mother Diabetes Mother Stroke Mother Cancer Father Lung cancer Father Anesthesia problems Neg Hx Malig Hyperthermia Neg Hx [Social History] [Social History] Tobacco Use Smoking status: Never Passive exposure: Never Smokeless tobacco: Never Vaping Use Vaping status: Never Used Substance Use Topics Alcohol use: Never Drug use: Never SURGICAL HISTORY: [Surgical History] [Surgical History] Past Surgical History Procedure Laterality Date CARDIAC CATHETERIZATION 02/16/2025 [Allergies] [Allergies] No Known Allergies MEDICATIONS: [Current Medications] [Current Medications] Current Outpatient Medications: allopurinol, Take by mouth [...] mg by mouth daily.) Easy Touch Pen [place]aver Dams, nitroglycerin, DISSOLVE 1 TABLET UNDER THE TONGUE EVERY 5 MINUTES NEEDED FOR CHEST PAIN. DO NOT EXCEED A TOTAL OF 3 DOSES IN 15 MINUTES. IF NO RELIEF CALL 911. NovoLOG FLEXPEN, sildenafil, Take 1 tablet by mouth as needed. ROS Anesthesia: Date of last anesthetic: Never had GA Conscious sedation [facility] 02/2025 history of previous anesthesia. Does not have a history of anesthetic complications and obstructivesleep apnea. Cardiovascular: atrial fibrillation (on Xarelto), CAD and hyperlipidemia. Does not have CHF, dyspnea, dysrhythmias,pacemaker or past KS. hypertension: is well controlled. Exercise tolerance is [...] thyroid disorder. gout. OSH stress test [facility] 02/2025 OSH labs 03/2025 Glucose 147. Na [...] Ekta Costa RN about patient's blood thinners ROS Cardiovascular: Does not have peripheral edema or peripheral edema. Clinical information reviewed: Allergies NPO Status Date of Last Liquid: 03/21/25 Time of Last Liquid: 1899 Date of Last Solid: 03/21/25 Time of Last Solid: 1899 Last Intake Type: Light meal Time of Last Void: 0500 Labs in last 18 hours CBC WBC 6.31 Hb 14.2 Plt 214 Hct 42.9 ANC 3.84 INR 1.0, PTT 28, Anti-Xa ?? BMP Na 139 Cl 103 BUN 21 Glu 155 (H) K 4.1 Co2 25 Cr 1.35 (H) Ca 9.6 iCa ?? Mg ??, Phos 3.2 Lactate ?? LFT AST 19 AlkPhos 41 T Prot 7.2 ALK 24 Bili 0.5 Alb ?? D.Bili ?? Physical Exam Airway Mallampati: II Mouth opening: normal Neck ROM: full Cardiovascular Rhythm: regular Rate: normal (-) murmur, carotid bruits, peripheral edema, JVD The dorsalis pedis pulses are 3+ bilaterally. The radial pulses are 3+ bilaterally. Dental - normal exam Pulmonary Breath sounds clear to auscultation Neurological Oriented: normal to time, normal to place and normal to person and oriented to person, place and time Skin - normal exam Musculoskeletal Extremities Anesthesia Plan ASA 4 Plan was reviewed with: resident and fellow Anesthesia technique(s) discussed with the patient/family: general Anesthesia plan agreed upon was: general Anesthetic plan and risks discussed with patient and spouse. Use of blood products discussed with patient and spouse who consented to blood products. Additional Equipment Requests documented in this encounter Plan of Treatment Upcoming Encounters Date Type Department Care Team (Late st Contact Info) Description 04/14/2025 3:40 PM EDT Office Visit [facility] Cardi[facility] [address] [facility] [address] [place] [address] Musa Rosado MD [address] [facility] [address] [place] [address] 06/13/2025 11:40 AM EDT Office Visit [facility] [address] [facility], [address] [place] [address] Sonia Medley MD [address] [facility] [facility] [address] [place] [address] documented as of this encounter Goals Goal Patient Goal Type Associated Problems Recent Progress Patient-Stated? 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 documented as of this encounter Procedures Procedure Name Priority Date/Time Associated Diagnosis Comments PB ANESTHESIA NON-TIMED PROCEDURE PLACEHOLDER Routine 03/22/2025 9:51 AM EDT MA INSERT/PLACE FLOW DIRECT CATH Routine 03/22/2025 8:47 AM EDT ANESTHESIA ULTRASOUND GUIDED Routine 03/22/2025 8:47 AM EDT PB ANESTHESIA NON-TIMED PROCEDURE PLACEHOLDER Routine 03/22/2025 8:47 AM EDT MA AN CENTRAL LINE DOUBLE LUMEN Routine 03/22/2025 8:47 AM EDT PB ANESTHESIA NON-TIMED PROCEDURE PLACEHOLDER Routine 03/22/2025 8:47 AM EDT PB ANESTHESIA PLACEHOLDER Routine 03/22/2025 8:03 AM EDT MA AN ELECTIVE ENDOTRACHEAL AIRWAY Routine 03/22/2025 8:03 AM EDT documented in this encounter Results * PB ANESTHESIA NON-TIMED PROCEDURE PLACEHOLDER (03/22/2025 9:51 AM EDT) BSA 2.31 m2 CAR DO NOT SEND Anatomical Region Laterality Modality Other Narrative 03/22/2025 9:51 AM EDT Nati Aranda MD 03/22/2025 6:28 PM Procedure Performed: CHERYL General Procedure Information Diagnostic Indications for CHERYL: assessment of ascending aorta, assessment of surgical repair, defect repair evaluation, hemodynamic monitoring Physician Requesting Echo: Musa Rosado MD Location performed: OR Modalities: 2D only, 3D only, color flow mapping, continuous wave Dopper and pulse wave doppler Consent given by: PatientIntubated Bite block placed Heart visualized Probe Insertion: Easy Probe Type: Multiplane Preanesthesia Checklist: Patient identified, IV checked, risks and benefits discussed, surgical consent, monitors and equipment checked and pre-op evaluation. Echocardiographic and Doppler Measurements Ventricles Right Ventricle: Cavity size moderately dilated. Hypertrophy not present. Thrombus not present. Global function normal. Left Ventricle: Cavity size normal. Hypertrophy not present. Thrombus not present. Global Function mildly impaired. Ejection Fraction 50%. Valves Aortic Valve: Annulus normal. Stenosis not present. Regurgitation absent. Leaflets normal. Leaflet motions normal. Mitral Valve: Annulus normal. Stenosis not present. Regurgitation +1. Leaflets normal. Leaflet motions normal. Tricuspid Valve: Annulus normal. Stenosis not present. Regurgitation +1. Leaflets normal. Leaflet motions normal. Pulmonic Valve: Annulus normal. Stenosis not present. Regurgitation +1. Leaflets normal. Aorta Ascending Aorta: Size normal. Dissection not present. Plaque thickness less than 3 mm. Mobile plaque not present. Aortic Arch: Size normal. Dissection not present. Plaque thickness less than 3 mm. Mobile plaque not present. Descending Aorta: Size normal. Dissection not present. Plaque thickness less than 3 mm. Mobile plaque not present. Atria Right Atrium: Size normal. Spontaneous echo contrast not present. Thrombus not present. Left Atrium: Size normal. Spontaneous echo contrast not present. Thrombus not present. Left atrial appendage normal. Septa Atrial Septum: Intra-atrial septal morphology contains patent foramen ovale. Other atrial septal defect findings: Tiny PFO with left to right shutn Other Findings Pericardium: normal Pleural Effusion: none Pulmonary Arteries: normal Pulmonary Venous Flow: normal Postprocedure Post Cardiac Surgery/Repair: Right ventricular post CPB function is preserved. Left ventricular post CPB function is preserved. All valve function preserved. Status: Aorta intact after decannulation. Information obtained during CHERYL exam relayed to the referring surgeon/physician. Anesthesia Information Performed Resident Anesthesiologist: Nati Aranda MD Resident: Ludin Aguiar MD Echocardiogram Comments: 45 y.o. male with IDDMT2 and mvCAD undergoing CABG Pre-CPB: - LV normal size and borderline function (LVEF 50-55%), normal diastolic function; no RWMA. RV moderate dilated with normal function - Aortic valve trileaflet without stenosis or insufficiency. Trace MR. Mild TR. Mild PI. - Tiny PFO with left to right shunt - MILES free of thrombus - Descending thoracic aorta with diffuse grade II atheromatous disease Post-CPB: - LV underfilled with normal function. No wall motion abnormalities. RV dilated with mild dysfunction - Valves unchanged in function. - Aorta intact following decannulation Nati Aranda MD ANESTHESIA ORDERABLES Edite d Result - Final * MA AN CENTRAL LINE DOUBLE LUMEN, PB ANESTHESIA NON-TIMED PROCEDURE PLACEHOLDER, ANESTHESIA ULTRASOUND GUIDED, MA INSERT/PLACE FLOW DIRECT CATH (03/22/2025 8:47 AM EDT) Nati Falcon MD - 03/22/2025 8:47 AM EDT Nati Aranda MD 03/22/2025 9:11 AM Central Venous Line: A central venous line was placed in the OR for the following indication(s): CVP monitoring. Sterility preparation included the following: provider hand hygiene performed prior to central venous catheter insertion, all 5 sterile barriers used (gloves, gown, cap, mask, large sterile drape) during central venous catheter insertion, antiseptic used during central venous catheter insertion and skin prep agent completely dried prior to procedure. The patient was placed in Trendelenburg position. The site was prepped with Chlorhexidine. A 9 Fr (size), introducer double lumen was placed. This catheter was an oximetric catheter. During the procedure, the following specific steps were taken: target vein identified, needle advanced into vein and blood aspirated and guidewire advanced into vein. Seldinger technique used Procedure performed using ultrasound guidance Sterile gel and probe cover used in ultrasound-guided central venous catheter insertion. Intravenous verification was obtained by ultrasound, venous blood return and manometry. Post insertion care included: all ports aspirated, all ports flushed easily, guidewire removed intact, Biopatch applied, line sutured in place and dressing applied. During the procedure the patient experienced: patient tolerated procedure well with no complications. PA Catheter Placed A oximetric, 8 (size) Pulmonary Artery Catheter (PAC) was placed through the Introducer CVL in the right internal jugular vein. The PAC placement was confirmed by pressure tracing changes and CHERYL. The patient experienced the following events during the procedure: patient tolerated procedure well with no complications. Staffing Performed: Resident Anesthesiologist: Nati Aranda MD Resident: Temo Mendoza MD Nati Aranda MD ANESTHESIA ORDERABLES Final Result * PB ANESTHESIA NON-TIMED PROCEDURE PLACEHOLDER (03/22/2025 8:47 AM EDT) Nati Falcon MD - 03/22/2025 8:47 AM EDT Nati Aranda MD 03/22/2025 9:11 AM Arterial Line: An arterial line was placed. Procedure performed using ultrasound guidance in the OR for the following indication(s): continuous blood pressure monitoring and blood sampling needed. A 20 gauge (size), 1 and 3/4 inch (length), Arrow (type) catheter was placed into the Right radial artery and secured by suture. Seldinger technique used Events: patient tolerated procedure well with no complications. Staffing Performed: Resident Anesthesiologist: Nati Aranda MD Resident: Temo Mendoza MD Nati Aranda MD ANESTHESIA ORDERABLES Final Result * MA AN ELECTIVE ENDOTRACHEAL AIRWAY, PB ANESTHESIA PLACEHOLDER (03/22/2025 8:03 AM EDT) Nati Falcon MD - 03/22/2025 8:03 AM EDT Nati Aranda MD 03/22/2025 9:11 AM Airway Date/Time: 03/22/2025 8:03 AM Reason: elective Airway not difficult General Information and Staff Patient location during procedure: OR Anesthesiologist: Nati Aranda MD Resident: Temo Mendoza MD Performed: Resident Patient Condition Indications for airway management: anesthesia Patient position: sniffing Final Airway Details Final airway type: endotracheal airway Successful airway: ETT Cuffed: yes Successful intubation technique: direct laryngoscopy Adjuncts used in placement: intubating stylet Endotracheal tube insertion site: oral Blade: [place] Blade size: #4 ETT size (mm): 8.0 Cormack-Lehane Classification: grade I - full view of glottis Placement verified by: chest auscultation and capnometry Measured from: teeth ETT to teeth (cm): 22 Additional Comments Atraumatic. No change to dentition. Nati Aranda MD ANESTHESIA ORDERABLES Final Result documented in this encounter Visit Diagnoses Not on filedocumented in this encounter Administered Medications Inactive Administered Medications - up to 3 most recent administrations Medication Order MAR Action Action Date Dose Rate Site albumin human 5 % infusion Intravenous, As needed, Starting on Fri03/22/25 at 1456, Until Fri03/22/25 at 1622, Routine, Anesthesia Intraprocedure Given 03/22/2025 3:24 PM EDT 250 mL Given 03/22/2025 2:56 PM EDT 250 mL cardioplegia Iraida-Darlene solution Perfusion, Continuous PRN, Starting on Fri03/22/25 at 1115, Until Fri03/22/25 at 1622, Routine Bolus 03/22/2025 1:24 PM EDT 300 mL Bolus 03/22/2025 1:04 PM EDT 300 mL Bolus 03/22/2025 12:42 PM EDT 300 mL ceFAZolin (Ancef) injection 2 g 2 g, Intravenous, Once, 1 dose, On Fri03/22/25 at 0830, Routine, Anesthesia Intraprocedure Given 03/22/2025 12:50 PM EDT 2 g Given 03/22/2025 8:43 AM EDT 2 g desmopressin (DDAVP) injection Intravenous, As needed, Starting on Fri03/22/25 at 1428, Until Fri03/22/25 at 1622, Routine, Anesthesia Intraprocedure Given 03/22/2025 2:28 PM EDT 31.65 mcg dexmedetomidine in NS (Precedex) 4 mcg/mL infusion Intravenous, As needed, Starting on Fri03/22/25 at 1535, Until Fri03/22/25 at 1622, Routine Given 03/22/2025 3:41 PM EDT 8 mcg Given 03/22/2025 3:35 PM EDT 12 mcg fentaNYL (Sublimaze) injection Intravenous, As needed, Starting on Fri03/22/25 at 0800, Until Fri03/22/25 at 1622, Routine, Anesthesia Intraprocedure Given 03/22/2025 3:53 PM EDT 50 mcg Given 03/22/2025 3:34 PM EDT 50 mcg Given 03/22/2025 2:17 PM EDT 50 mcg heparin (porcine) injection Intravenous, As needed, Starting on Fri03/22/25 at 1003, Until Fri03/22/25 at 1622, Routine, Anesthesia Intraprocedure Given 03/22/2025 10:48 AM EDT 35,000 Units Given 03/22/2025 10:03 AM EDT 5,000 Units heparin (porcine) injection Intracatheter, As needed, Starting on Fri03/22/25 at 1131, Until Fri03/22/25 at 1622, Routine, Anesthesia Intraprocedure Given 03/22/2025 1:38 PM EDT 10,000 Units Given 03/22/2025 12:31 PM EDT 10,000 Units Given 03/22/2025 11:31 AM EDT 10,000 Units insulin regular in sodium chloride 0.9 % 1 UNIT/ML infusion Intravenous, As needed, Starting on Fri03/22/25 at 0855, Until Fri03/22/25 at 1622, Routine, Anesthesia Intraprocedure Given 03/22/2025 1:30 PM EDT 8 Units Given 03/22/2025 1:03 PM EDT 7.5 Units Given 03/22/2025 12:30 PM EDT 7.5 Units insulin regular in sodium chloride 0.9 % 1 UNIT/ML infusion Intravenous, Continuous PRN, Starting on Fri03/22/25 at 0855, Until Fri03/22/25 at 1622, Routine, Anesthesia Intraprocedure Restarted 03/22/2025 3:27 PM EDT 4 Units/hr 4 mL/hr Rate/Dose Change 03/22/2025 11:10 AM EDT 8 Units/hr 8 mL/h r New Bag 03/22/2025 8:55 AM EDT 4 Units/hr 4 mL/hr lactated Ringer's infusion Intravenous, Continuous PRN, Starting on Fri03/22/25 at 0739, Until Fri03/22/25 at 1622, Routine New Bag 03/22/2025 7:39 AM EDT lidocaine PF (Xylocaine) 2 % injection Epidural Infusion, As needed, Starting on Fri03/22/25 at 0800, Until Fri03/22/25 at 1622, Routine, Anesthesia Intraprocedure Given 03/22/2025 8:00 AM EDT 100 mg magnesium sulfate 4 g in sodium chloride 0.9 % 100 mL IVPB Intravenous, Continuous PRN, Starting on Fri03/22/25 at 1324, Until Fri03/22/25 at 1622, Routine New Bag 03/22/2025 1:24 PM EDT 2 g midazolam (Versed) injection Intravenous, As needed, Starting on Fri03/22/25 at 0741, Until Fri03/22/25 at 1622, Routine, Anesthesia Intraprocedure Given 03/22/2025 2:49 PM EDT 3 mg Given 03/22/2025 1:23 PM EDT 2 mg Given 03/22/2025 12:19 PM EDT 2 mg phenylephrine (Vazculep) injection Intravenous, As needed, Starting on Fri03/22/25 at 1014, Until Fri03/22/25 at 1622, Routine, Anesthesia Intraprocedure Given 03/22/2025 1:45 PM EDT 300 mcg Given 03/22/2025 1:42 PM EDT 300 mcg Given 03/22/2025 1:39 PM EDT 500 mcg propofol (Diprivan) injection Intravenous, As needed, Starting on Fri03/22/25 at 0800, Until Fri03/22/25 at 1622, Routine, Anesthesia Intraprocedure Given 03/22/2025 4:09 PM EDT 30 mg Given 03/22/2025 8:55 AM EDT 50 mg Given 03/22/2025 8:35 AM EDT 50 mg protamine injection Intravenous, As needed, Starting on Fri03/22/25 at 1358, Until Fri03/22/25 at 1622, Routine, Anesthesia Intraprocedure Given 03/22/2025 2:16 PM EDT 50 mg Given 03/22/2025 2:06 PM EDT 50 mg Given 03/22/2025 2:04 PM EDT 50 mg rocuronium (ZeMuron) injection Intravenous, As needed, Starting on Fri03/22/25 at 0800, Until Fri03/22/25 at 1622, Routine, Anesthesia Intraprocedure Given 03/22/2025 2:18 PM EDT 10 mg Given 03/22/2025 1:35 PM EDT 20 mg Given 03/22/2025 12:19 PM EDT 30 mg sodium bicarbonate 8.4 % injection Intravenous, As needed, Starting on Fri03/22/25 at 1159, Until Fri03/22/25 at 1622, Routine, Anesthesia Intraprocedure Given 03/22/2025 11:59 AM EDT 50 mEq sodium chloride 0.9 % infusion Intravenous, Continuous PRN, Starting on Fri03/22/25 at 0829, Until Fri03/22/25 at 1622, Routine New Bag 03/22/2025 8:29 AM EDT sodium chloride 0.9 % infusion Intravenous, Continuous PRN, Starting on Fri03/22/25 at 0829, Until Fri03/22/25 at 1622, Routine New Bag 03/22/2025 8:29 AM EDT 75 mL/hr tranexamic acid (Cyklokapron) 1,000 mg in sodium chloride 0.9 % 100 mL (10 mg/mL) infusion Intravenous, Continuous PRN, Starting on Fri03/22/25 at 1005, Until Fri03/22/25 at 1622, Routine New Bag 03/22/2025 10:05 AM EDT 1 mg/kg/hr 10.55 mL/hr tranexamic acid (Cyklokapron) injection Intravenous, As needed, Starting on Fri03/22/25 at 1005, Until Fri03/22/25 at 1622, Routine, Anesthesia Intraprocedure Given 03/22/2025 10:05 AM EDT 1,000 mg vasopressin (Vasostrict) injection Subcutaneous, As needed, Starting on Fri03/22/25 at 1429, Until Fri03/22/25 at 1622, Routine, Anesthesia Intraprocedure Given 03/22/2025 2:29 PM EDT 1 Units Given 03/22/2025 1:36 PM EDT 1 Units documented in this encounter Additional Health Concerns Active Problems Noted Date Diagnosed Date Autogenerated Problem 02/17/2025 Assessment Noted Time A fall risk assessment has been complete d for the patient 03/21/2025 12:53 PM EDT A Body Mass Index follow-up plan has been documented for the patient 03/30/2025 10:55 AM EDT documented as of this encounter Care Teams Automobile Dealer Relationship Specialty Start Date End Date David Iverson MD PCP - General 9/1/22 Ludin Gonzalez MD [address] [place] [address] Referring Physician 02/18/25 documented as of this encounter
--- OUTSIDE RECORDS SUMMARY | 2025-03-22 07:45 | XMS_ITS | Encounter Summary ---
Author Organization Healthcare Address [address] [place] [address] Care Team Providers Care Veterinary Bacteriologist Name Role Phone David Iverson MD Primary Care Provider [phone] Ludin Gonzalez MD Unavailable [phone] Reason for Visit * Auth/Cert (Routine) Specialty Diagnoses / Procedures Referred By Contac t Referred To Contact Diagnoses Coronary artery disease due to calcified coronary lesion Coronary artery disease due to calcified coronary lesion [I25.10, I25.84] Procedures MD CABG, VEIN, THREE CABG, 2 OR MORE VESSELS Musa Rosado MD [address] [address] Phone: tel: fax: [facility] [address] [place] [address] Phone: tel: Referral ID Status Reason Start Date Expiration Date Visits Re quested Visits Authorized [id number] 1 1 Encounter Details Date Type Department Care Team (Late st Contact Info) Description 03/22/2025 7:45 AM EDT - 03/22/2025 5:00 PM EDT Surgery [facility] [address] [place] [address] Musa Rosado MD [address] [address] CABG, 2 OR MORE VESSELS [[id number] (CPT )] Surgery Details Date/Time Status Location OR Service Patient Class Case Class Case Type Trauma Case? 03/22/2025 7:45 AM Posted [facility] OR 14 Cardiothoracic Surgery Surgery Admit E-Elect leslie Panel 1 Procedure LRB Anes Op Region Wound Class Comments CABG, 2 OR MORE VESSELS N/A General Surgeon Surgeon Role Service Panel Murali Gomez PA Assisting 1 Marquise Raygoza MD Resident - Assisting 1 Musa Rosado MD Primary Cardiothoracic Surg alivia 1 documented in this encounter Social History Tobacco [...] any time in the past 12 m [facility], were you homeless or living in a fdc (including now)? No 03/23/2025 Utilities Answer Date [...] Sign Reading Time Taken Comments Blood Pressure 158/83 03/22/2025 6:49 AM EDT Pulse 83 03/22/2025 5:00 PM EDT Temperature 36.7 C (98.1 F) 03/22/2025 4:05 PM EDT Respiratory Rate 22 03/22/2025 5:00 PM EDT Oxygen Saturation 99% 03/22/2025 4:31 PM EDT Inhaled Oxygen Concentration - - Weight 105 kg (232 lb 7.6 oz) 03/22/2025 3:50 PM EDT Height 182.9 cm (6') 03/22/2025 6:17 [...] Corina Corrales documented as of this encounter Medications at [...] day for 10 days. 80 tablet 03/30/2025 5 metoprolol tartrate (Lopressor) 25 MG tablet Take 0.5 tablets by mouth 2 times a day. 30 tablet 3 03/30/2025 5 naloxone (Narcan) 4 mg/0.1 mL nasal spray [...] Notes * Progress Notes - Afshan Hannah - 03/30/2025 11:38 AM EDT Case Management Discharge Note Lizandro Gr 45 y.o. male CSN: [id number] Admission: 03/22/2025 5:35 AM Primary Problem: CAD (coronary artery disease) Primary Molding Process Technician: Primary Caregiver: Self Assistance Available at Discharge: Availability of Care Givers (#Hours): Other (comment) (as needed) Family/Molding Process Technician(s) Willingness Assessed to care for patient at home: Yes Family/Molding Process Technician(s) Readiness Assessed to care for patient at [...] Second Notice Recieved By: Pt's s/o Follow-up: [facility] [address], [address] [facility] [address] Raya Woods APRN [facility] [address] [address] Go on 05/25/2025 Your appointment time is [...] from the original note were not included. [id number] Insulin Aspart (rDNA Origin) Injection Brand Name(s): [...] buy an insulin pen separately. Check the body press operator's information for the patient to see [...] be sure to read and understand the body press operator's instructions. If you are blind or [...] or doctor for a copy of the body press operator's information for the patient. Are there [...] medications. Ask your pharmacist or check the body press operator's patient information for a list of [...] and out of their sight and reach. [email or web address]://www.Rep.org Dispose of unneeded medications in a way [...] be awakened, immediately call emergency services at 641. Insulin aspart overdose can occur if you [...] of all of the prescription and nonprescription (mixr-clu-shprbym) medicines, vitamins, minerals, and dietary supplements you [...] or pharmacist about specific clinical use. The [place] [employer] represents that the information provided hereunder was formulated with a reasonable standard of care, and in conformity with professional standards in the field. The [place] [employer] makes no representations or warranties, express or implied, including, but not limited to, any implied warranty of merchantability and/or fitness for a particular purpose, with respect to such information and specifically disclaims all such warranties. Users are advised that decisions regarding drug therapy are complex medical decisions requiring the independent, informed decision of an appropriate health patient care nursing assistant, and the information is provided for informational purposes only. The entire monograph for a drug should be reviewed for a thorough understanding of the drug's actions, uses and side effects. The [place] [employer] does not endorse or recommend the use of any drug.The information is not a substitute for medical care. AHFS?? Patient Medication Information?. ?? Copyright, 2023. The [employer]??, [address], [address], [place], [place]. All Rights Reserved. Duplication for commercial use must be authorized by [facility]. Selected Revisions: May 20, 2023. AHFS?? Patient Medication Information?. ?? Copyright, 2024 * [facility]in[facility] NathanielFORMERLY [facility], [facility] - Mikayla Leung - 03/30/2025 10:52 AM EDT 1087 Oxycodone Oral Tablet, Immediate Release Brand Names: Oxaydo, Roxicodone What is this medicine? Oxycodone (nu-z-PWN-done) is an opioid pain reliever. It is used to treat moderate to severe pain. What should I tell my health care provider before I take this medicine? They need to know if you have any of these conditions: ? Stanley's disease ? Brain tumor or head injury [...] a special medication guide each time you fruit picker this medicine. ? Overdosage: Taking too [...] should report to your doctor or health patient care nursing assistant as soon as possible: ? allergic [...] attention (report to your doctor or health patient care nursing assistant if they continue or are bothersome): ? constipation ? dry mouth ? itching ? nausea, vomiting ? upset stomach This list may not describe all possible side effects. Call your doctor for medical advice about side effects. You may report side effects to FDA at 3-363-LBW-0011. Where should I keep my medicine? This [...] location. To find a disposal location, visit [employer]/[facility]/[place]. If you cannot take unused medicine to a proper location, you can mix the medicine with coffee grounds or max litter and dispose of in the normal trash. Your doctor may also give you a special disposal pouch for this medicine. You can also flush the medicine down the toilet. * Jh ArmstrongRADHA - Mikayla Leung - 03/30/2025 10:51 AM EDT Images from the original note were not included. [id number] Senna Brand Name(s): Black Draught??, Ex-Lax??, Nelson's Castoria??, Nature's Remedy??, Perdiem Overnight [...] directions on your package or prescription label carefu lly, and ask your doctor or pharmacist to [...] of all of the prescription and nonprescription (wthr-ohd-zffheyh) medicines, vitamins, minerals, and dietary supplements you [...] or pharmacist about specific clinical use. The [place] [employer] represents that the information provided hereunder was formulated with a reasonable standard of care, and in conformity with professional standards in the field. The [place] [employer] makes no representations or warranties, express or implied, including, but not limited to, any implied warranty of merchantability and/or fitness for a particular purpose, with respect to such information and specifically disclaims all such warranties. Users are advised that decisions regarding drug therapy are complex medical decisions requiring the independent, informed decision of an appropriate health patient care nursing assistant, and the information is provided for informational purposes only. The entire monograph for a drug should be reviewed for a thorough understanding of the drug's actions, uses and side effects. The [place] [employer] does not endorse or recommend the use of any drug.The information is not a substitute for medical care. AHFS?? Patient Medication Information?. ?? Copyright, 2023. The [place] [employer]??, [address], [address], [place], [place]. All Rights Reserved. Duplication for commercial use must be authorized by [facility]. Selected Revisions: March 25, 2024. AHFS?? Patient Medication Information?. ?? Copyright, 2024 * Jh NelsonRADHA - Mikayla Leung - 03/30/2025 10:51 AM EDT Images from the original note were not included. 798 Narcan Nasal [place]: Rescue Guide for Opioid Overdose Step 1 [...] Only for use in the nose. * Jh [facility] - Mikayla Leung - 03/30/2025 10:51 AM EDT Images from the original note were not included. Lopressor - Video Learn how Lopressor helps your heart to beat more easily, possible side effects to look for, and how to use and store this medication safely. To view the video go to this web address: https://bit.Twistle/65Ojq5X Or, scan this QR code with your smart phone ?? [facility] * Mikayla Cortez - 03/30/2025 10:51 AM EDT Images from the original note were not included. [id number] Methocarbamol Brand Name(s): Robaxin??; also available generically [...] of all of the prescription and nonprescription (luah-flm-fwntrlo) medicines, vitamins, minerals, and dietary supplements you are taking. Bring this list with you each time you visit a doctor or if you are admitted to the hospital. You should carry the list with you in case of daliln rgencies. This report on medications is for your information only, and is not considered individual patient advice. Because of the changing nature of drug information, please consult your physician or pharmacist about specific clinical use. The [place] [employer] represents that the information provided hereunder was formulated with a reasonable standard of care, and in conformity with professional standards in the field. The [place] [employer] makes no representations or warranties, express or implied, including, but not limited to, any implied warranty of merchantability and/or fitness for a particular purpose, with respect to such information and specifically disclaims all such warranties. Users are advised that decisions regarding drug therapy are complex medical decisions requiring the independent, informed decision of an appropriate health patient care nursing assistant, and the information is provided for informational purposes only. The entire monograph for a drug should be reviewed for a thorough understanding of the drug's actions, uses and side effects. The [place] [employer] does not endorse or recommend the use of any drug.The information is not a substitute for medical care. AHFS?? Patient Medication Information?. ?? Copyright, 2023. The [place] [employer]??, [address] [facility] [address], [address], [place], [place]. All Rights Reserved. Duplication for commercial use must be authorized by [facility]. Selected Revisions: May 20, 2017. AHFS?? Patient Medication Information?. ?? Copyright, 2024 * Jh ArmstrongRADHA - Mikayla Leung - 03/30/2025 10:50 AM EDT Images from the original note were not included. [id number] Furosemide Brand Name(s): Lasix??; also available generically [...] of all of the prescription and nonprescription (egbi-kok-oekbrmk) medicines vitamins, minerals, and dietary supplements you [...] or pharmacist about specific clinical use. The [place] [employer] represents that the information provided hereunder was formulated with a reasonable standard of care, and in conformity with professional standards in the field. The [place] [employer] makes no representations or warranties, express or implied, including, but not limited to, any implied warranty of merchantability and/or fitness for a particular purpose, with respect to such information and specifically disclaims all such warranties. Users are advised that decisions regarding drug therapy are complex medical decisions requiring the independent, informed decision of an appropriate health patient care nursing assistant, and the information is provided for informational purposes only. The entire monograph for a drug should be reviewed for a thorough understanding of the drug's actions, uses and side effects. The [place] [employer] does not endorse or recommend the use of any drug.The information is not a substitute for medical care. AHFS?? Patient Medication Information?. ?? Copyright, 2023. The [place] [employer]??, [address] [facility], [address], [place], [place]. All Rights Reserved. Duplication for commercial use must be authorized by [facility]. Selected Revisions: January 18, 2025. AHFS?? Patient Medication Information?. ?? Copyright, 2024 * Zinakale DamonRADHA - Mikayla Leung - 03/30/2025 10:50 AM EDT Images from the original note were not included. [id number] Stool Softeners Brand Name(s): Colace??, Correctol Soft [...] of all of the prescription and nonprescription (rkgg-ehe-csajocp) medicines, vitamins, minerals, and dietary supplements you [...] or pharmacist about specific clinical use. The [place] [employer] represents that the information provided hereunder was formulated with a reasonable standard of care, and in conformity with professional standards in the field. The [place] [employer] makes no representations or warranties, express or implied, including, but not limited to, any implied warranty of merchantability and/or fitness for a particular purpose, with respect to such information and specifically disclaims all such warranties. Users are advised that decisions regarding drug therapy are complex medical decisions requiring the independent, informed decision of an appropriate health patient care nursing assistant, and the information is provided for informational purposes only. The entire monograph for a drug should be reviewed for a thorough understanding of the drug's actions, uses and side effects. The [place] [employer] does not endorse or recommend the use of any drug.The information is not a substitute for medical care. AHFS?? Patient Medication Information?. ?? Copyright, 2023. The [employer]??, [address], [address], [place], [place]. All Rights Reserved. Duplication for commercial use must be authorized by [facility]. Selected Revisions: March 25, 2024. AHFS?? Patient Medication Information?. ?? Copyright, 2024 * Jh Horton - Mikayla Leung - 03/30/2025 10:50 AM EDT Images from the original note were not included. [id number] Acetaminophen Brand Name(s): Actamin??, Feverall??, Panadol??, Tempra Quicklets??, Tylenol??, Dayquil?? (as a combination product containing Acetaminophen, Dextromethorphan, Pseudoephedrine), NyQuil Cold/Flu Relief?? (as a combination product containing Acetaminophen, Dextromethorphan, Doxylamine), Percocet?? (as a combination product containing Acetaminophen, Oxycodone) APAP, N-ddgeht-hbby-aminophenol, Paracetamol ?? This branded product is no [...] measuring cup or syringe provided by the body press operator to measure each dose of the [...] out of their sight and reach. [email or web address]://www.upandaway.org Unneeded medications should be disposed of in [...] awakened, immediately call emergency services at 911. If someone takes more than the recommended [...] of all of the prescription and nonprescription (zjef-zyw-hoeszbr) medicines you are taking, as well as [...] or pharmacist about specific clinical use. The [place] [employer] represents that the information provided hereunder was formulated with a reasonable standard of care, and in conformity with professional standards in the field. The [place] [employer] makes no representations or warranties, express or implied, including, but not limited to, any implied warranty of merchantability and/or fitness for a particular purpose, with respect to such information and specifically disclaims all such warranties. Users are advised that decisions regarding drug therapy are complex medical decisions requiring the independent, informed decision of an appropriate health patient care nursing assistant, and the information is provided for informational purposes only. The entire monograph for a drug should be reviewed for a thorough understanding of the drug's actions, uses and side effects. The [place] [employer] does not endorse or recommend the use of any drug.The information is not a substitute for medical care. AHFS?? Patient Medication Information?. ?? Copyright, 2023. The [place] [employer]??, [address] [facility], [address], [place], [place]. All Rights Reserved. Duplication for commercial use must be authorized by [facility]. Selected Revisions: June 20, 2023. AHFS?? Patient Medication Information?. ?? Copyright, 2024 * Discharge Summary - Lian DobbsNATHANIEL - 03/30/2025 10:04 AM EDT Images from the original note were not included. Hospitalization Admit Date/Time: 03/22/2025 5:35 AM Admitting Attending: Musa Rosado Discharge Date: 03/30/2025 Discharge Attending Physician: Musa Rosado MD PCP name and Address: David Iverson MD [address] [place] [address] Referring provider name and address: No referring [...] to [facility] - [place], [place] - [address] [facility] [address] acetaminophen 500 MG tablet allopurinol 300 MG [...] Sternotomy, coronary artery bypass grafting, endoscopic vein rhfufce-pdkai-mdgeocw saphenous. Vein the ascending aorta the 1st [...] Center 04/14/2025 3:40 PM Musa Rosado MD [facility] 06/13/2025 11:40 AM Sonia Medley MD [facility] PAC Test Results Pending At [...] present and normoactive x 4 quadrants SKIN: [place], warm, and dry. No rash, sores, or [...] CAD, CKD, HLD, T2DM, Afib presented to [facility] for CABG on 03/22. Endocrine Diabetes [...] with patient, family member, primary team, bedside rn charge planning -Diabetes education: not needed -Follow-up plan: [...] via secure chat or page us at [phone] during 7a-7p, Friday-Friday. For after hours please [...] BID heparin (porcine), 5,000 Units, Subcutaneous, q8h PENDING SALE TO [facility] insulin glargine-yfgn, 34 Units, Subcutaneous, Nightly insulin [...] Transfer Exam: Sit to stand Level of [place]: Stand-by assist Physical/Nonphysical Assist: Supervision Assistive Device: Hand held assist Transfer Exam: Stand to Sit Level of [place]: Stand-by assist Physical/Nonphysical Assist: Supervision Assistive Device: [...] at 12:37 PM. * Progress Notes - Ulices Merajessa Benitez, TELEPHONE CLERKS SUPERVISOR - 03/29/2025 8:47 AM EDT Endocrine - [...] CAD, CKD, HLD, T2DM, Afib presented to [facility] for CABG on 03/22. Endocrine Diabetes [...] via secure chat or page us at [phone] during 7a-7p, Friday-Friday. For after hours please [...] BID heparin (porcine), 5,000 Units, Subcutaneous, q8h PENDING SALE TO [facility] insulin glargine-yfgn, 30 Units, Subcutaneous, Nightly insulin [...] Sternotomy, coronary artery bypass grafting, endoscopic vein serhihb-axysd-cbetyna saphenous. Vein the ascending aorta the 1st [...] H/H 7.8/23.9 - 6/22: H/H 8.8/27.3 - 6/23: H/H 8.8/26.3 Hypocalcemia - monitor and replete [...] plan for DC home tomorrow. Cardiothoracic Surgery [phone] [1] acetaminophen, 1,000 mg, Oral, q6h VIOLETTE [...] Note Lizandro Gr 45 y.o. male CSN: [id number] Room/Bed 119/119A Nutrition evaluation type: follow-up Reason [...] 31.03 Weight Evaluation: Obese-Class 1 (BMI 30-34.9) [place] Body Weight (kg): 80.9 Percent [place] Body Weight: 128 Adjusted Body Weight (kg): 86.9 Estimated Needs: Kcal/ K-25 Kcal Provided: 7438-1298 Metabolic Cart Study Results: Current Nutrition Intake: Diet Supplements: Impact AR Diet Order: Adult Diet Diet Texture: Regular Adult Carbohydrate Restriction: Consistent CHO 2 (3026-5628 Alex, 80 g/meal) Adult Sodium Restriction: No added salt Percent Meals Eaten (%): 50-100% x 5 days Diet Experience and Nutrition History: Diet Education Provided: Will monitor Pertinent home medications: Confucianist needs: Nutrition Focused Physical Exam: Unable to [...] Sternotomy, coronary artery bypass grafting, endoscopic vein rvqjnrl-tatlt-gptgsxx saphenous. Vein the ascending aorta the 1st [...] Wean pain medication as tolerated. Cardiothoracic Surgery [phone] [1] acetaminophen, 1,000 mg, Oral, q6h VIOLETTE [...] Note Lizandro Gr 45 y.o. male CSN: [id number] Admission: 03/22/2025 5:35 AM Primary Problem: CAD [...] Pastoral Care Note: Patient was appreciative of hotel director's visit. was on the bed side supporting him. The chaplainprovided patient supportive listen, emotional support and spiritual support. The family appreciate hotel director as they informed the hotel director that they maybe discharged today. Referral From: Automotive Glass Mechanic Initiated Pastoral Care Provided For: Patient, Spouse [...] release, Expresses feeling spiritually nurtured, Appreciative of Automotive Glass Mechanic Support, Communicates increased satisfaction with hospital experience, Is functionally engaged in meaning making, Demonstrates and/or verbalizes increased comfort Cosigned by Eva French at 03/31/2025 9:46 AM EDT Associated attestation - Eva French - 03/31/2025 9:46 AM EDT This is to attest hotel director paid internship chart note has been reviewed and okayed. * Progress Notes - Maritza Khanna, TELEPHONE CLERKS SUPERVISOR - 03/28/2025 8:05 AM EDT -Subjective Lizandro Gr is a 45 y.o. male PMH CAD, CKD, HLD, T2DM, Afib presented to [facility] for CABG on 03/22. 24 hr [...] CAD, CKD, HLD, T2DM, Afib presented to [facility] for CABG on 03/22. Endocrine Diabetes [...] via secure chat or page us at [phone] during 7a-7p, Sun-Sat. For after hours, weekends, [...] Prevention: activity supervised assistive device/personal items within [facility] fall prevention program maintained clutter-free environment maintained [...] Identify and Manage Fall Risk Flowsheets (Taken 03/27/2025 185) Safety Promotion/Fall Prevention: activity supervised assistive device/personal items within [facility] fall prevention program maintained clutter-free environment maintained [...] CAD, CKD, HLD, T2DM, Afib presented to [facility] for CABG on 03/22. 24 hr [...] CAD, CKD, HLD, T2DM, Afib presented to [facility] for CABG on 03/22. Endocrine Diabetes [...] via secure chat or page us at [phone] during -7p, Sun-Sat. For after hours, weekends, holidays please [...] Sternotomy, coronary artery bypass grafting, endoscopic vein fuhsvvl-pkhtx-hktidhp saphenous. Vein the ascending aorta the 1st [...] (patient aware). Increased bowel regimen. Cardiothoracic Surgery [phone] [1] acetaminophen, 1,000 mg, Oral, q6h VIOLETTE allopurinol, 300 mg, Oral, Daily aspirin, 81 mg, Oral, Daily atorvastatin, 80 mg, Oral, Nightly docusate sodium, 100 mg, Oral, BID fenofibrate, 145 mg, Oral, Daily furosemide, 40 mg, Oral, Daily gabapentin, 300 mg, Oral, BID heparin (porcine), 5,000 Units, Subcutaneous, q8h PENDING SALE TO [facility] insulin glargine-yfgn, 30 Units, Subcutaneous, Nightly insulin [...] Progressing * Progress Notes - La Nena MarchFAZALN - 03/26/2025 10:39 AM EDT CVT Progress [...] Sternotomy, coronary artery bypass grafting, endoscopic vein [id number] saphenous. Vein the ascending aorta the 1st [...] - H/H 7.5/22.8 - 6/21: H/H 7.8/23.9 Thrombocytopenia - monitor and transfuse [...] as able. Escalate bowel regimen. Cardiothoracic Surgery [phone] [1] acetaminophen, 650 mg, Oral, q6h PENDING SALE TO [facility] allopurinol, 300 mg, Oral, Daily aspirin, 81 mg, Oral, Daily atorvastatin, 80 mg, Oral, Nightly colchicine, 0.6 mg, Oral, BID docusate sodium, 100 mg, Oral, BID fenofibrate, 145 mg, Oral, Daily furosemide, 40 mg, Oral, Daily gabapentin, 300 mg, Oral, BID heparin (porcine), 5,000 Units, Subcutaneous, q8h PENDING SALE TO [facility] insulin glargine-yfgn, 26 Units, Subcutaneous, Nightly insulin [...] CAD, CKD, HLD, T2DM, Afib presented to [facility] for CABG on 03/22. 24 hr [...] CAD, CKD, HLD, T2DM, Afib presented to [facility] for CABG on 03/22. Endocrine Diabetes team [...] via secure chat or page us at [phone] during 7a-7p, Sun-Sat. For after hours, weekends, holidays please contact the on-call Endocrine Fellow. Thank you for allowing us to participate in the care of this patient. * Consults - Beverly Ferguson RN - 03/25/2025 10:00 PM EDT Primary team d/c IV CORROSION TECHNICIAN earlier today. * Care Plan - Zaida [...] CAD, CKD, HLD, T2DM, Afib presented to [facility] for CABG on 03/22. 24 hr [...] diabetes mellitus with neuropathy (CMS/HCC) Atrial fibrillation ([facility]) Postoperative pain Lizandro Gr is a 45 y.o. male PMH CAD, CKD, HLD, T2DM, Afib presented to [facility] for CABG on 03/22. Endocrine Diabetes [...] via secure chat or page us at [phone] during 7a-7p, Sun-Sat. For after hours, weekends, [...] Sternotomy, coronary artery bypass grafting, endoscopic vein pmphomh-[id number] saphenous. Vein the ascending aorta the 1st [...] aspects of care Leukocytosis (resolved) Cardiothoracic Surgery [phone] * Progress Notes - Michelle Branham - [...] Transfer Exam: Sit to stand Level of [place]: Contact guard Physical/Nonphysical Assist: Supervision, Verbal Cues, Minimal cues Assistive Device: Rollator Transfer Exam: Stand to Sit Level of [place]: Contact guard Physical/Nonphysical Assist: Minimal cues, Supervision, [...] depression, for respiratory rate < 10 IV CORROSION TECHNICIAN hydromorphone 1mg/ml 0.2mg q6min - CABG. Takes tramadol and gabapentin at home Blood pressure 119/50, pulse 89, temperature 37.5 ??C (99.5 ??F), temperature source Oral, resp. rate 22, height 1.829 m (6'), weight 108 kg (238 lb 8.6 oz), SpO2 93%. Please Contact Acute Pain Service with any additional questions or concerns via [email or web address]. * Progress Notes - Katlin Jaffe, NATHANIEL - 03/25/2025 10:38 AM EDT Pain Consult Follow-Up Note Reason for Follow-up: Acute Pain Condition, Chronic Pain Condition, Multimodal pain management, CORROSION TECHNICIAN- Transition Off, and Postoperative Pain Control Subjective: [...] so Inpatient Pain Service was consulted for CORROSION TECHNICIAN which was started on 03/23/25. Today, primary team plans to transition of dilaudid IV CORROSION TECHNICIAN and requests PO recommendations for oral dilaudid given oxycodone being ineffective for him previously. Mr. Gr is seen sitting [facility]. He is calm and relaxed on my visit. He reports the dilaudid IV CORROSION TECHNICIAN has worked well to control his pain. I discussed with him the plan to transition off the IV CORROSION TECHNICIAN onto a oral pain regimen with dilaudid. [...] 300 mg Oral BID HYDROmorphone 1 mg/mL CORROSION TECHNICIAN (naive protocol) no dose Intravenous Continuous HYDROmorphone [...] Wean Plan Created, Pain TreatmentPreferences Discussed, and CORROSION TECHNICIAN- Transition off Assessment: Mr. Gr has acute on chronic, opioid tolerant, well controlled somatic pain s/p CABG. Post op he was started on MMPC and PO/IV PRN opioids; however, these were unsuccessful in treating his pain so a Dilaudid IV CORROSION TECHNICIAN was started on 03/23/25. Primary team has requested PO recommendations with oral dilaudid with plans to transition off CORROSION TECHNICIAN today. Recommendations: - Discontinue IV CORROSION TECHNICIAN and start: - Dilaudid 4 mg PO Q4H PRN - Give first dose 30 minutes prior to discontinuing IV CORROSION TECHNICIAN - Dilaudid 0.5 mg IV Q4H PRN [...] respiratory compromise and/or . Katlin Jaffe, MSN, [facility]- Department of Anesthesiology, Perioperative, Critical Care and [...] control - Pain Team consulted for IV CORROSION TECHNICIAN - Scheduled tylenol, robaxin, gabapentin - 03/25 - discontinue IV CORROSION TECHNICIAN, Pain to provide PO recommendations * Jh Horton - Katlin Chaney RN - 03/25/2025 8:20 AM EDT Images from the original note were not included. [id number] Recovery From Heart Surgery: The First Few [...] stop Last Reviewed Date: 2024 00:00:00 ?? [id number] [employer]. All rights reserved. This information is not intended as a substitute for professional medical care. Always follow your healthcare professional's instructions. * Jh Horton - Katlin Chaeny RN - 03/25/2025 8:20 AM EDT Images [...] ? Natural and processed cheeses such as Ecuadorean, blue, mozzarella, and Fijian Meat and protein substitutes Special instructions: ? [...] ? Oat meal ? Whole wheat ? [place] ? Pumpernickel ? White ? Raisin ? Crackers prepared without butter, lard, coconut, or palm oil ? Dry cereals that contain allowed fats ? Rice and pasta prepared with allowed fats ? Egg noodles (limit to ?? cup per day) ? Kenyan ? Filipino ? [place] Citizen muffins ? Pancakes, waffles, biscuits, and cornbread made with allowed ingredients ? Flat bread ? Luis crackers ? Matzoh crackers ? Whole grain or enriched cereals prepared with allowed oils ? Wheat germ Avoid: ? Egg or cheese bread ? Butter rolls ? Commercially prepared products: biscuits, muffins, sweet rolls, cornbread, pancakes and waffles, hebrew toast, croissants ? Noodles ? Cheese crackers ? Flavored crackers prepared with saturated fats ? Any cereal prepared with saturated fat ? Albanian noodles ? Rice and pasta prepared with eggs, cream, or high fat cheese Fruits Choose: ? Any fresh, frozen, canned, or dried fruit or juice ? Avocado Vegetables Choose: ? Any fresh, frozen, or canned vegetables ? Potatoes prepared with allowed fat ? Olives (limit to 10 small or 5 large per day) Avoid: ? Buttered, creamed, or fried vegetables ? Qkxv-v-wgoxs, commercially made ? Vegetables prepared in a [...] sizes are listed below: ? Nuts: The [place] Heart Association recommends including 5 servings of [...] avocado oil, etc.: 1 tablespoon o The [place] Heart Association recommends limiting oils to 3 [...] ingredients ? Sorbet ? Ice milk ? Tiff ? Gum drops ? Jelly beans ? [...] saturated fats, cheese, and/or egg yolks ? [place] chips ? Potato chips and other snack [...] much from the food you eat. Use [employer] to Help Build Your Meals The [employer] can help you plan and track your meals and activity. You can look up individual foods to see or compare their nutritional value. You can get guidelines for what and how much you should eat. You can compare your food choices. And you can assess personal physical activities and see ways you can improve. Go to www.Specialized Pharmaceuticalss.gov/MyJobCompanycker/. Eating Heart-Healthy Food: Using the DASH Plan [...] the DASH eating plan, visit: www.nhlbi.nih.gov/health/health-topics/topics/dash * Jh Horton - Katlin Chaney RN - 03/25/2025 8:20 AM EDT Images from the original note were not included. 24029 Eating Heart-Healthy Foods Eating has a big [...] judy. Last Reviewed Date: 2022 00:00:00 ?? [id number] [employer]. All rights reserved. This information is not intended as a substitute for professional medical care. Always follow your healthcare professional's instructions. * Jh Horton - Katlin Chaney RN - 03/25/2025 8:20 AM EDT Images from the original note were not included. 76443 After Bypass Surgery: Reaching, Bending, and Lifting [...] your shoulders and hips in line. ? director supplier quality the object and hold it close to [...] directions. Last Reviewed Date: 2024 00:00:00 ?? 1341-5963 [employer]. All rights reserved. This information is not intended as a substitute for professional medical care. Always follow your healthcare professional's instructions. * Jh ArmstrongIR - Katlin Chaney RN - 03/25/2025 8:20 AM EDT Images from the original note were not included. 62271 After Bypass Surgery: Getting Up and Out [...] do. Last Reviewed Date: 2024 00:00:00 ?? 4542-7338 [employer]. All rights reserved. This information is not [...] AM: HDS on 4L NC. Transition from CORROSION TECHNICIAN to oral regimen. DC central line. No [...] reactive to light. Neck: Comments: [facility] Cardiovascular: Pulses: Normal pulses. Heart sounds: [...] cooperative. Results Review {Vanishing Link Review Results :[id number] I have reviewed the latest lab and [...] control - Pain Team consulted for IV CORROSION TECHNICIAN - Scheduled tylenol, robaxin, gabapentin - 03/25 - discontinue IV CORROSION TECHNICIAN, Pain to provide PO recommendations Non-Hospital Problems Microalbuminuria Type 2 diabetes mellitus with stage 2 chronic kidney disease, with long-term current use of insulin([facility]) Obesity (BMI 30-39.9) Shivani Tan MD Cosigned [...] department on the 1st floor of the [facility] near [facility] for a chest x-ray. Then go [...] your incisions. Do NOT lift, push, or truss puller helper 5 pounds for six weeks. Do NOT [...] Katlin Chaney CT Surgery Nurse Navigator at [phone] Friday through Friday 7am- 3:30pm [facility] [phone] after 3:30 pm, weekends and holidays - ask for the CT surgeon java application developer. * Progress Notes - Meera Ibarra RN - 03/25/2025 8:15 AM EDT Case Management Adult Progress Note Lizandro Gr 45 y.o. male CSN: [id number] Admission: 03/22/2025 5:35 AM Primary Problem: CAD (coronary artery disease) Anticipated Discharge Date: tbd Additional Comments: LISSY SILVESTRE reviewed chart and met with primary team to discuss plan of care. Patient is not medically ready for discharge at this time, transfer to telemetry. LISSY SILVESTRE will continue to follow. Update: CM placed rollator referral with [facility]. Meera Ibarra RN * Progress [...] statin, beta daniel -mmpc, attempt wean off application support engineer -po diuresis -remove leg drain and pacing [...] 5,000 Units, Subcutaneous, q8h VIOLETTE insulin glargine-yfgn, 20 Units, Subcutaneous, Nightly insulin [...] mg with IVPCA. Encouraged patient to use CORROSION TECHNICIAN button to help with pain control. Follow-Up: Follow-Up: Will continue to monitor and adjust as needed. Acute Pain Service Comments: Pain Service comments: Will continue CORROSION TECHNICIAN and/ or infusion until primary service decides it is appropriate to discontinue CORROSION TECHNICIAN and/ or infusion. * Care Plan - [...] CAD, CKD, HLD, T2DM, Afib presented to [facility] for CABG on 03/22. Endocrine Diabetes [...] CAD, CKD, HLD, T2DM, Afib presented to [facility] for CABG on 03/22. Endocrine Diabetes [...] management discussed with patient, family member, bedside rn charge planning -Diabetes education: likely not needed -Follow-up [...] via secure chat or page us at [phone] during -7p, Friday-Friday. For after hours please [...] tablet 650 mg 650 mg Oral q6h PENDING SALE TO [facility] Musa Sargent DO 650 mg at 03/24/25 1145 allopurinol (Zyloprim) tablet 300 mg 300 mg Oral Daily Krunal Galdamez MD 300 mg at 03/24/25 0826 aspirin chewable tablet 81 mg 81 mg Oral Daily Marquise Raygoza MD 81 mg at 03/24/25 08 atorvastatin (Lipitor) tablet 80 mg 80 mg Oral Nightly Marquise Raygoza MD 80 mg at 03/23/252043 colchicine (Colcrys) tablet 0.6 mg 0.6 mg Oral BID Krunal Galdamez MD 0.6 mg at 03/24/25 0826 glucose (Glutose) 40 % oral gel 15-30 grams of glucose 15-30 grams of glucose Sublingual q15 min PRN Marquise Raygoza MD Or dextrose 50 % solution 12.5-25 g 12.5-25 g Intravenous q15 min PRN Marquise Raygoza MD Or glucagon (human recombinant) injection 1 mg 1 mg Intramuscular q15 min PRN Marquise Raygoza MD docusate sodium (Colace) capsule 100 mg 100 mg Oral BID Marquise Raygoza MD 100 mg at 03/24/25 0826 fenofibrate (Tricor) tablet 145 mg 145 mg Oral Daily Krunal Galdamez MD 145 mg at 03/24/25 0826 gabapentin (Neurontin) capsule 300 mg 300 mg Oral BID Shivani Tan MD 300 mg at 03/24/25 0826 heparin (porcine) injection 5,000 Units 5,000 Units Subcutaneous q8h PENDING SALE TO [facility] Marquise Raygoza MD 5,000Units at 03/24/25 1408 HYDROmorphone 1 mg/mL CORROSION TECHNICIAN (naive protocol) Intravenous Continuous Fritz Mccracken MD [...] q24h Musa Sargent, DO 1 patch at 03/23/252043 magnesium hydroxide (Milk of Magnesia) 400 MG/5ML suspension 30 mL 30 mL Oral Daily Tristen Tan MD 30 mL at 03/24/25 0826 methocarbamol (Robaxin) tablet 500 mg 500 mg Oral 4x daily Lisa Castro TELEPHONE CLERKS SUPERVISOR 500 mg at 03/24/25 1408 metoprolol tartrate [...] 40 mg 40 mg Oral Daily Lisa Castro TELEPHONE CLERKS SUPERVISOR 40 mg at 03/24/25 0826 phosphorus (K [...] 24 Hrs: No acute events. On IV CORROSION TECHNICIAN. OOBC. OBJECTIVE All laboratory data, images, tracings, [...] Result Date: 03/24/2025 Interval removal of the Climax-Brea catheter. Otherwise no significant interval change. CRITICAL [...] Will send referral to patients preferred location, [facility]. [place] will contact Mr. Gr to discuss and [...] rehabilitation program. 2. Eligibility: CABG 3. Exceptions/exclusions: [facility] Cardiac Rehab Exclusions: None 4. Referral: [facility] Cardiac Rehab Referral: Patient will consider participating in a cardiac rehabilitation program. Patient was provided with contact information for the following program(s) [facility] [place] [facility] [phone]. 5. Information sent: Information Sent: Appropriate information [...] control - Pain Team consulted for IV CORROSION TECHNICIAN - Restart home gabapentin when appropriate * [...] round, and reactive to light. Neck: Comments: [facility] Cardiovascular: Pulses: Normal pulses. Heart sounds: Normal [...] cooperative. 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 Takes tramadol and gabapentin at home Blood pressure (!) 158/83, pulse 90, temperature (!) 38.4 ??C (101.1 ??F), temperature source Bladder, resp. rate 20, height 1.829 m (6'), weight 103 kg (227 lb 15.3 oz), SpO2 93%. Please Contact Acute Pain Service with any additional questions or concerns via [employer] orpage [phone]. * Consults - Katie Rodrigez RN - [...] reports that pain is much improved with CORROSION TECHNICIAN. Encouraged patient to push CORROSION TECHNICIAN button more frequently for better pain control [...] 300 mg Oral BID HYDROmorphone 1 mg/mL CORROSION TECHNICIAN (naive protocol) no dose Intravenous Continuous HYDROmorphone [...] depression, for respiratory rate < 10 IV CORROSION TECHNICIAN hydromorphone 1mg/ml 0.2mg q6min - CABG. Takes tramadol and gabapentin at home Blood pressure (!) 158/83, pulse 83, temperature 37.6 ??C (99.7 ??F), temperature source Bladder, resp. rate 12, height 1.829 m (6'), weight 107 kg (236 lb 8.9 oz), SpO2 95%. Please Contact Acute Pain Service with any additional questions or concerns via [employer] [email or web address]. * Consults - Matilde Leon RD - 03/23/2025 3:03 PM EDTAssociated Order(s): IP CONSULT TO NUTRITION SERVICES Adult Nutrition Evaluation Note Lizandro Gr 45 y.o. male CSN: [id number] Room/Bed 213/213A Nutrition evaluation type: assessment Reason [...] 32.08 Weight Evaluation: Obese-Class 1 (BMI 30-34.9) [place] Body Weight (kg): 80.9 Percent [place] Body Weight: 130 Adjusted Body Weight (kg): 86.9 Estimated Needs: Kcal/ K-25 Kcal Provided: 0455-6113 Metabolic Cart Study Results: Current Nutrition Intake: Diet Order: Adult Diet Diet Texture: Clear liquid Percent Meals Eaten (%): establishing Diet Experience and Nutrition History: Diet Education Provided: Will monitor Pertinent home medications: Confucianist needs: Nutrition Focused Physical Exam: Unable to [...] x 5 days Acuity Level: 3 Matilde Leon, RD [1] acetaminophen, 650 mg, Oral, q6h [...] chloride, sodium chloride * Progress Notes - Adalid Kay J - 03/23/2025 1:52 PM EDT Physical Therapy Evaluation Patient Name: Lizandro Gr Today's Date: 03/23/2025 PT Discharge Recommendations: Home with assistance Equipment Recommended: Rollator History Lizandro Gr is 45 y.o. male admitted 03/22/2025 for work-up of CAD (coronary artery disease). Problem List Active Hospital Problems Diagnosis Date Noted S/P CABG x 4 03/22/2025 On mechanically assisted ventilation ([facility]) 03/22/2025 Electrolyte abnormality 03/22/2025 GERD (gastroesophageal reflux disease) 03/22/2025 Anemia 03/22/2025 Poorly 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 ([facility]) 03/22/2025 Atrial fibrillation ([facility]) 03/22/2025 Postoperative pain 03/22/2025 CAD (coronary artery [...] admission Level of Mobility: Ambulatory- community Mobility [place]: Independent gait without device History of Falls: [...] Transfer Exam: Sit to stand Level of [place]: Moderate assist (50% patient's effort) Physical/Nonphysical Assist: Verbal Cues, Maximal cues, Additional assist utilized for safety Assistive Device: Rollator Transfer Exam: Stand to Sit Level of [place]: Moderate assist (50% patient's effort) Physical/Nonphysical Assist: [...] to ambulation, pt administered pain relief via CORROSION TECHNICIAN pump. Pt then ambulated into hallway and required verbal cueing for upright posture, pacing, and proximity to AD. Pt did not require any rest breaks throughout mobility. Pt positioned for comfort at end of session. Standardized Assessments [facility] 6-Clicks Mobility Assessment Difficulty patient has turning [...] 3-5 steps with a railing?: A lot [facility] 6-Clicks Mobility Assessment Total : 15 No [...] x 4 03/22/2025 On mechanically assisted ventilation ([facility]) 03/22/2025 Electrolyte abnormality 03/22/2025 GERD (gastroesophageal reflux disease) 03/22/2025 Anemia 03/22/2025 Poorly 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 ([facility]) 03/22/2025 Atrial fibrillation ([facility]) 03/22/2025 Postoperative pain 03/22/2025 CAD (coronary artery [...] admission Level of Mobility: Ambulatory- community Mobility [place]: Independent gait without device History of Falls: No ADL Performance: Independent Patient/Family Goals Statement To get better and go home. Objective Pain 8/10 sternal pain RN aware, pillow support provided and CORROSION TECHNICIAN used throughout. Delirium Screening [place] Agitation Sedation [...] Mobility Exam: Supine to Sit Level of [place]: (Not observed- found and left up in recliner) Transfers Transfer Exam: Sit to stand Level of [place]: Moderate assist (50% patient's effort) Physical/Nonphysical Assist: Verbal Cues, Maximal cues, Additional assist utilized for safety Assistive Device: Rollator Transfer Exam: Stand to Sit Level of [place]: Moderate assist (50% patient's effort) Physical/Nonphysical Assist: [...] continued education to improve carryover. Standardized Assessments [facility] 6-Click Daily Activities Help from Other: Don/Doff Regular Lower Body Clothings: A lot Help From Other: Bathing: A lot Help From Other: Toileting: A lot Help From Other: Don/Doff Upper Body Clothings: Little Help From Other: Grooming: Little Help From Other: Eating Meals: None [facility] 6 Click - Daily Activities Score: 16 [...] Note Lizandro Gr 45 y.o. male CSN: [id number] Admission: 03/22/2025 5:35 AM Primary Problem: CAD (coronary artery disease) Sdet reviewed chart and spoke with the patient at bedside to complete this Initial Case Management Assessment. PCP: David Iverson MD Emergency Contact: Extended Emergency Contact Information Primary Emergency Contact: Alissa Gr Mobile Relation: Daughter Preferred language: [place] Citizen Assistant Manager Bilingual needed? No Secondary Emergency Contact: VALENTINO MENESES Mobile Relation: Significant Other Preferred language: [place] Citizen Assistant Manager Bilingual needed? No Insurance: Primary Visit Coverage Payer Plan Sponsor Code Group Number Group Name HUMANA MEDICARE HU[employer]NA GOLD PLUS [id number] Primary Visit Coverage Subscriber Subscriber ID Subscriber Name Subscriber SSN Subscriber Address [id number] LIZANDRO GR [id number] [address] [place] [id number] Patient information: Primary Caregiver: Self Accompanied by/Relationship: significant other Support System: Immediate family Daily Living Activities: Functional Status: Independent Living Arrangements: Family Type of Residence: Private residence, Single Level [address] [place] [id number] Current DME: Equipment Currently Used at Home: [...] Dialysis Services: n/a Living Will/Advance Directive/Power of Managed Care Nurse /Guardian: Unable to assess: No Have you [...] Anglin. Has [employer] Medicare insurance and uses [facility] in [place]. Significant other to transport and assist as needed at discharge. No current SW/CM needs identified. Will continue to follow and assist. Meera Ibarra, RN * Care Plan - Jose Alberto [...] control - Pain Team consulted for IV CORROSION TECHNICIAN - Restart home gabapentin when appropriate * [...] and reactive to light. Neck: Comments: [facility] Cardiovascular: Pulses: Normal pulses. Heart sounds: [...] cooperative. Results Review {Vanishing Link Review Results :[id number] I have reviewed the latest lab and imaging results. Assessment and Plan: This patient is critically ill. Assessment & Plan CAD (coronary artery disease) Present on Admission: Unknown - s/p 4vCABG on 03/[address] Rosado S/P CABG x 4 Present on Admission: Not Applicable - ASA, statin, beta daniel - Monitor chest tube output On mechanically assisted ventilation ([facility]/HCC) Present on Admission: Not Applicable - Wean [...] 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 ([facility]) Present on Admission: Unknown - Continue Insulin gtt until eating more, will likely need basal-bolus regimen - will consider endo consult if glycemic control is difficult - On tramadol and gabapentin at home for neuropathy - will restart gabapentin after extubated Hemoglobin A1c Date Value Ref Range Status 02/17/2025 7.2 (H) <5.7 % Final Atrial fibrillation ([facility]) Present on Admission: Unknown - In sinus [...] control - Pain Team consulted for IV CORROSION TECHNICIAN - Restart home gabapentin when appropriate Non-Hospital Problems Microalbuminuria Type 2 diabetes mellitus with stage 2 chronic kidney disease, with long-term current use of insulin([facility]) Obesity (BMI 30-39.9) Shivani Tan MD * [...] 300 mg Oral BID HYDROmorphone 1 mg/mL CORROSION TECHNICIAN (naive protocol) no dose Intravenous Continuous HYDROmorphone [...] Medications Medication Name Dose Route Frequency IV CORROSION TECHNICIAN hydromorphone 1mg/ml 0.2mg q6min - CABG. Takes tramadol and gabapentin at home Blood pressure (!) 158/83, pulse 71, temperature 37.3 ??C (99.1 ??F), temperature source Core, resp. rate 15, height 1.829 m (6'), weight 107 kg (236 lb 8.9 oz), SpO2 95%. Please Contact Acute Pain Service with any additional questions or concerns via [email or web address]. * Consults - Segun Tam RN - 03/23/2025 9:05 AM EDT RN Pain Assessment Lizandro Gr is a 45 y.o. male General Information: Referring Physician/ Service: Musa Rosado MD Patient History Reviewed: Yes Medical History: Principal Problem: CAD (coronary artery disease) Active Problems: CKD (chronic kidney disease) stage 2, GFR 60-89 ml/min Hypertension HLD (hyperlipidemia) S/P CABG x 4 On mechanically assisted ventilation ([facility]) Electrolyte abnormality GERD (gastroesophageal reflux disease) Anemia Poorly 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 ([facility]) Atrial fibrillation ([facility]) Postoperative pain Pertinent Home Medications: Prior to Admission medications Medication Sig Start Date End Date Taking? Authorizing Provider allopurinol (Zyloprim) 300 MG tablet Take by mouth 1 (one) time each day. Yes ProviderChavez MD dilTIAZem CD (Cardizem CD) 180 MG [...] day. Chavez Lambert MD Easy Touch Pen [place] 31G X 8 MM misc 04/18/23 Chavez [...] 300 mg Oral BID HYDROmorphone 1 mg/mL CORROSION TECHNICIAN (naive protocol) no dose Intravenous Continuous HYDROmorphone [...] Pain Service Plan: Plan: Place on IV CORROSION TECHNICIAN IV CORROSION TECHNICIAN request - CABG dilaudid 1 mg/ml CORROSION TECHNICIAN settin.2 mg q 6 minutes Basal rate: none Various methods of pain control discussed with patient and/ or family: Yes Discussed with doctor: Yes Please Contact Inpatient Pain Service with any additional questions or concerns via [employer] or page [phone]. [1] No Known Allergies [2] Social History Tobacco Use Smoking Status Never Passive exposure: Never Smokeless Tobacco Never * Consults - Loretta Horn, TELEPHONE CLERKS SUPERVISOR - 03/23/2025 8:37 AM EDT Pain Consult Note Reason for Consult: CORROSION TECHNICIAN request, Postoperative Pain Control , Chronic pain condition, Acute pain condition, and Multimodal pain management Ordering Provider: Msua Rosado MD History of Present Illness Lizandro [...] so Inpatient Pain Service was consulted for CORROSION TECHNICIAN. Today Mr. 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 Results Review {Vanishing Link Review Results :[id number] I have reviewed the latest lab and [...] Opioids Adjusted, Pain Treatment Preferences Discussed, and CORROSION TECHNICIAN- Started Assessment: Mr. Gr has acute on chronic, opioid tolerant, uncontrolled somatic pain s/p CABG. Post op he was started on MMPC and PO/IV PRN opioids; however, these were unsuccessful in treating his pain so he will be initiated on a Dilaudid IV CORROSION TECHNICIAN today. Recommendations: - Start Dilaudid IV CORROSION TECHNICIAN @ 0.2 mg Q6M lockout - Start [...] risk due to initiation of Dilaudid IV CORROSION TECHNICIAN with potential for life threatening complications including overdose, respiratory compromise and/or . Loretta Horn, MSN, [facility] Department of Anesthesiology, Perioperative, Critical Care and [...] by: Krunal Galdamez MD Authorized by: Krunal Gadlamez MD Critical care provider statement: Critical care [...] dose of paralytic was given at 1420. [facility] was consulted for ICU management post-operatively. Airway [...] Allergies Patient has no known allergies. GCS: Crawford Coma Scale Score: 15 Review of Systems [...] present. Results Review {Vanishing Link Review Results :[id number] I have reviewed the latest lab and [...] disease, with long-term current use of insulin(CMS/HCC) HLD (hyperlipidemia) Obesity (BMI 30-39.9) Shivani Tan [...] (one) time each day. Easy Touch Pen [place] 31G X 8 MM misc hydroCHLOROthiazide (HYDRODiuril) [...] Sternotomy, coronary artery bypass grafting, endoscopic vein zerjndg-xhaej-tiqvnfk saphenous. 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 -Vein the ascending aorta the 1st [...] - Primary * Murali Gomez - Assisting Patent Chemist(s): * Marquise Raygoza MD - Resident - Assisting Murali Gomez PAC performed endoscopic vein harvest. Marquise Raygoza emptying PGY 5-was 1st liaison inspection laboratory assistant through the entire case Anesthesia: General [...] was induced, monitoring lines were placed, a Climax-Brea catheter was floated into position and a [...] by Dr. Gonzalez in regards to recent [facility] with results indicating multi-vessel coronary [...] visit. Results Review {Vanishing Link Review Results :[id number] I have reviewed the latest lab and [...] Description 04/14/2025 3:40 PM EDT Office Visit [facility] Cardiothoracic [address], [facility] [address] [place] [address] Musa Rosado MD [address] [address] 06/13/2025 11:40 AM EDT Office Visit [facility] Nephrology, Bone & Mineral Metabolism [address], [address] [place] [address] Sonia Medley MD [address] [place] [address] Pending Results Name Type Priority [...] Care Plan Autogenerated Problem No Zulay Syed, TELEPHONE CLERKS SUPERVISOR documented as of this encounter Procedures Procedure [...] stage 2 chronic kidney disease and hypertension ([facility]/HCC) Obesity (BMI 30-39.9) APTT Routine 03/22/2025 6:32 [...] Comment 03/30/2025 8:34 AM EDT [facility] Neuropsychology Division Chief ID Katlin Cheung 03/30/2025 8:34 AM EDT HEALTHCARE LAB Device ID [id number] 03/30/2025 8:34 AM EDT [facility] Specimen Type POC Capillary 03/30/2025 8:34 AM EDT [facility] Blood Capillary blood specimen / Unknown 03/30/2025 8:32 AM EDT 03/30/2025 8:34 AM EDT us Musa Rosado MD LAB POINT OF CARE TE ST DOCKED DEVICE UNSOLICITED RESULTS Final Result [facility] [address] [place] [address] * XR Chest 2 Views (03/30/2025 6:47 [...] on 03/30/2025 9:29 AM us Ephraim Hicks TELEPHONE CLERKS SUPERVISOR IMG XR PROCEDURES Final Resu lt * (ABNORMAL) Basic Metabolic Panel, Plasma (03/30/2025 3:47 AM EDT) Glucose, Plasma 172(H) 74 - 99 mg/dL 03/30/2025 5:23 AM EDT [facility] BUN, Plasma 28(H) 7 - 21 mg/dL 03/30/2025 5:23 AM EDT [facility] Creatinine, Plasma 1.18 0.70 - 1.20 mg/dL 03/30/2025 5:23 AM EDT [facility] BUN/Creatinine Ratio 24 03/30/2025 5:23 AM EDT [facility] Sodium, Plasma 138 136 - 145 mmol/L 03/30/2025 5:23 AM EDT [facility] Potassium, Plasma 4.1 3.6 - 4.9 mmol/L 03/30/2025 5:23 AM EDT [facility] Chloride, Plasma 103 97 - 107 mmol/L 03/30/2025 5:23 AM EDT [facility] CO2, Plasma 23 22 - 29 mmol/L 03/30/2025 5:23 AM EDT [facility] Anion Gap 12 6 - 16 mmol/L 03/30/2025 5:23 AM EDT [facility] Total Calcium, Plasma 8.9 8.9 - 10.2 mg/dL 03/30/2025 5:23 AM EDT [facility] eGFRcr 78.5 mL/min/1.7 3m*2 03/30/2025 5:23 AM EDT [facility] Comment:Reported eGFRcr in m L/min/1.73m2 is based the CKD-EPI 2020 equation that does not use a race coefficient. Blood Venous blood specimen / Unknown Venipuncture / Unknown 03/30/2025 3:47 AM EDT 03/30/2025 4:48 AM EDT us Ephraim Hicks APRN LAB BLOOD ORDERABLES Final R esult [facility] [address] [place] [address] * (ABNORMAL) CBC W/O Differential (03/30/2025 3:47 AM EDT) WBC Count 7.54 3.70 - 10.30 10*3/uL LAB HEMATOLOGY METHOD 03/30/2025 4:58 AM EDT [facility] RBC Count 3.01(L) 4.60 - 6.10 10*6/uL LAB HEMATOLOGY METHOD 03/30/2025 4:58 AM EDT [facility] HGB 9.0(L) 13.7 - 17.5 g/dL LAB HEMATOLOGY METHOD 03/30/2025 4:58 AM EDT [facility] HCT 27.9(L) 40.0 - 51.0 % LAB HEMATOLOGY METHOD 03/30/2025 4:58 AM EDT [facility] Platelet Count 286 155 - 369 10*3/uL LAB HEMATOLOGY METHOD 03/30/2025 4:58 AM EDT [facility] MCV 93 79 - 98 fL LAB HEMATOLOGY METHOD 03/30/2025 4:58 AM EDT [facility] MCH 29.9 26.0 - 32.0 pg LAB HEMATOLOGY METHOD 03/30/2025 4:58 AM EDT [facility] MCHC 32.3 30.7 - 35.5 g/dL LAB HEMATOLOGY METHOD 03/30/2025 4:58 AM EDT [facility] RDW 14.3 11.5 - 14.5 % LAB HEMATOLOGY METHOD 03/30/2025 4:58 AM EDT [facility] MPV 10.7 8.8 - 12.5 fL LAB HEMATOLOGY METHOD 03/30/2025 4:58 AM EDT [facility] nRBC 0.4(H) <=0.0 per 100 WBCs LAB HEMATOLOGY METHOD 03/30/2025 4:58 AM EDT [facility] Blood Venous blood specimen / Unknown Venipuncture / Unknown 03/30/2025 3:47 AM EDT 03/30/2025 4:51 AM EDT us Ephraim Hicks APRN LAB BLOOD ORDERABLES Final R esult [facility] [address] [place] [address] * (ABNORMAL) POCT glucose meter (03/29/2025 7:20 PM EDT) [facility] POCT Glucose 226(H) 74 - 99 mg/dL [...] for testing. Comment 03/29/2025 7:21 PM EDT [facility] Neuropsychology Division Chief ID Guerline Arambula 03/29/20 7:21 PM EDT [facility] Device ID [id number] 03/29/2025 7:21 PM EDT [facility] Specimen Type POC Capillary 03/29/2025 7:21 PM EDT [facility] Blood Capillary blood specimen / Unknown 03/29/2025 7:20 PM EDT 03/29/2025 7:21 PM EDT Musa Rosado MD LAB POINT OF CARE TE ST DOCKED DEVICE UNSOLICITED RESULTS Final Result Performing Organization Address City/[facility] Co de Phone Number [facility] [address] [place] [address] * (ABNORMAL) POCT glucose meter (03/29/2025 5:33 PM EDT) [facility] POCT Glucose 155(H) 74 - 99 mg/dL [...] 03/29/2025 5:35 PM EDT [facility] Neuropsychology Division Chief ID Kristie Sanon 025 5:35 PM EDT [facility]ALTH[facility]ARE LAB Device ID [id number] 03/29/2025 5:35 PM EDT [facility] Specimen Type POC Capillary 03/29/2025 5:35 PM EDT [facility] Blood Capillary blood specimen / Unknown 03/29/2025 5:33 PM EDT 03/29/2025 5:35 PM EDT us Musa Rosado MD LAB POINT OF CARE TE ST DOCKED DEVICE UNSOLICITED RESULTS Final Result Performing Organization Address City/[facility] Co de Phone Number [facility] [address] [place] [address] * (ABNORMAL) POCT glucose meter (03/29/2025 12:29 PM EDT) [facility] POCT Glucose 213(H) 74 - 99 mg/dL [...] 03/29/2025 12:30 PM EDT [facility] Neuropsychology Division Chief ID Kristie Sanon 025 12:30 PM EDT HEALTH[facility]ARE LAB Device ID [id number] 03/29/2025 12:30 PM EDT [facility]ARE LAB Specimen Type POC Capillary 03/29/2025 12:30 PM EDT [facility] Blood Capillary blood specimen / Unknown 03/29/2025 12:29 PM EDT 03/29/2025 12:30 PM EDT Musa Rosado MD LAB POINT OF CARE TE ST DOCKED DEVICE UNSOLICITED RESULTS Final Result [facility] [address] [place] [address] * (ABNORMAL) POCT glucose meter (03/29/2025 8:19 AM EDT) [facility] POCT Glucose 176(H) 74 - 99 mg/dL [...] for testing. Comment 03/29/2025 8:20 AM EDT [facility] Neuropsychology Division Chief ID Kristie Sanon 025 8:20 AM EDT [facility] Device ID [id number] 03/29/2025 8:20 AM EDT [facility] Specimen Type POC Capillary 03/29/2025 8:20 AM EDT [facility] Blood Capillary blood specimen / Unknown 03/29/2025 8:19 AM EDT 03/29/2025 8:20 AM EDT Musa Rosado MD LAB POINT OF CARE TE ST DOCKED DEVICE UNSOLICITED RESULTS Final Result Performing Organization Address [facility] de Phone Number [facility] [address] [place] [address] * (ABNORMAL) POCT glucose meter (03/28/2025 8:02 [...] for testing. Comment 03/28/2025 8:04 PM EDT [facility] Neuropsychology Division Chief ID Kathia Carl 03/28/2025 8:04 PM EDT [facility]ALTH[facility]ARE LAB Device ID [id number] 03/28/2025 8:04 PM EDT [facility] Specimen Type POC Capillary 03/28/2025 8:04 PM EDT [facility] Blood Capillary blood specimen / Unknown 03/28/2025 8:02 PM EDT 03/28/2025 8:04 PM EDT Musa Rosado MD LAB POINT OF CARE TE ST DOCKED DEVICE UNSOLICITED RESULTS Final Result Performing Organization Address [facility] de Phone Number [facility] [address] [place] [address] * (ABNORMAL) POCT glucose meter (03/28/2025 4:59 PM EDT) Pathologist [facility] POCT Glucose 164(H) 74 - 99 mg/dL [...] 03/28/2025 5:00 PM EDT [facility] Neuropsychology Division Chief ID Kristie Sanon 025 5:00 PM EDT HEALTHCARE LAB Device ID [id number] 03/28/2025 5:00 PM EDT [facility] LAB Specimen Type POC Capillary 03/28/2025 5:00 PM EDT [facility] Blood Capillary blood specimen / Unknown 03/28/2025 4:59 PM EDT 03/28/2025 5:00 PM EDT us Musa Rosado MD LAB POINT OF CARE TE ST DOCKED DEVICE UNSOLICITED RESULTS Final Result Performing Organization Address [facility] Co de Phone Number [facility] [address] [place] [address] * (ABNORMAL) POCT glucose meter (03/28/2025 12:10 PM EDT) [facility] POCT Glucose 243(H) 74 - 99 mg/dL [...] Comment 03/28/2025 12:12 PM EDT [facility] Neuropsychology Division Chief ID Kristie Sanon 025 12:12 PM EDT [facility]ARE LAB Device ID [id number] 03/28/2025 12:12 PM EDT [facility] Specimen Type POC Capillary 03/28/2025 12:12 PM EDT [facility] Blood Capillary blood specimen / Unknown 03/28/2025 12:10 PM EDT 03/28/2025 12:12 PM EDT us Musa Rosado MD LAB POINT OF CARE TE ST DOCKED DEVICE UNSOLICITED RESULTS Final Result Performing Organization Address City/[facility]/ZIP Co de Phone Number [facility] [address] [place] [address] * (ABNORMAL) POCT glucose meter (03/28/2025 8:07 AM EDT) POCT Glucose 205(H) 74 - 99 mg/dL [...] 03/28/2025 8:09 AM EDT [facility] Neuropsychology Division Chief ID Kristie Sanon 025 8:09 AM EDT HEALTHCARE LAB Device ID [id number] 03/28/2025 8:09 AM EDT [facility] Specimen Type POC Capillary 03/28/2025 8:09 AM EDT [facility] Blood Capillary blood specimen / Unknown 03/28/2025 8:07 AM EDT 03/28/2025 8:09 AM EDT Musa Rosado MD LAB POINT OF CARE TE ST DOCKED DEVICE UNSOLICITED RESULTS Final Result [facility] [address] [place] [address] * XR Chest 2 Views (03/28/2025 6:13 [...] on 03/28/2025 10:43 AM La Nena March APRN IMG XR PROCEDURES Final Result * Magnesium (03/28/2025 4:35 AM EDT) Magnesium, Plasma 1.9 1.9 - 2.4 mg/dL 03/28/2025 5:18 AM EDT [facility] Blood Venous blood specimen / Unknown Venipuncture / Unknown 03/28/2025 4:35 AM EDT 03/28/2025 4:42 AM EDT La Nena March APRN LAB BLOOD ORDERABLES Final Res ult [facility] [address] [place] [address] * (ABNORMAL) Comprehensive metabolic panel (03/28/2025 4:35 AM EDT) Glucose, Plasma 196(H) 74 - 99 mg/dL 03/28/2025 5:18 AM EDT [facility] BUN, Plasma 20 7 - 21 mg/dL 03/28/2025 5:18 AM EDT [facility] Creatinine, Plasma 1.13 0.70 - 1.20 mg/dL 03/28/2025 5:18 AM EDT [facility] BUN/Creatinine Ratio 18 03/28/2025 5:18 AM EDT [facility] Sodium, Plasma 134(L) 136 - 145 mmol/L 03/28/2025 5:18 AM EDT [facility] Potassium, Plasma 4.2 3.6 - 4.9 mmol/L 03/28/2025 5:18 AM EDT [facility] Chloride, Plasma 102 97 - 107 mmol/L 03/28/2025 5:18 AM EDT [facility] CO2, Plasma 22 22 - 29 mmol/L 03/28/2025 5:18 AM EDT [facility] Anion Gap 10 6 - 16 mmol/L 03/28/2025 5:18 AM EDT [facility] Total Calcium, Plasma 9.1 8.9 - 10.2 mg/dL 03/28/2025 5:18 AM EDT [facility] Total Protein 6.3 6.3 - 7.9 g/dL 03/28/2025 5:18 AM EDT [facility] Albumin, Plasma 3.6 3.5 - 5.2 g/dL 03/28/2025 5:18 AM EDT [facility] AST, Plasma 32 10 - 50 U/L 03/28/2025 5:18 AM EDT [facility] ALT, Plasma 35 10 - 50 U/L 03/28/2025 5:18 AM EDT [facility] Alkaline Phosphatase, Plasma 67 40 - 115 U/L 03/28/2025 5:18 AM EDT [facility] Total Bilirubin, Plasma 0.8 0.2 - 1.1 mg/dL 03/28/2025 5:18 AM EDT [facility] eGFRcr 82.7 mL/min/1.7 3m*2 03/28/2025 5:18 AM EDT [facility] Comment:Reported eGFRcr in m L/min/1.73m2 is based the CKD-EPI 2020 equation that does not use a race coefficient. Blood Venous blood specimen / Unknown Venipuncture / Unknown 03/28/2025 4:35 AM EDT 03/28/2025 4:42 AM EDT us La Nena March APRN LAB BLOOD ORDERABLES Final Res ult [facility] [address] [place] [address] * (ABNORMAL) Hemogram (CBC) (03/28/2025 4:35 AM EDT) WBC Count 6.01 3.70 - 10.30 10*3/uL LAB HEMATOLOGY METHOD 03/28/2025 5:08 AM EDT [facility] RBC Count 2.89(L) 4.60 - 6.10 10*6/uL LAB HEMATOLOGY METHOD 03/28/2025 5:08 AM EDT [facility] HGB 8.8(L) 13.7 - 17.5 g/dL LAB HEMATOLOGY METHOD 03/28/2025 5:08 AM EDT [facility] HCT 26.6(L) 40.0 - 51.0 % LAB HEMATOLOGY METHOD 03/28/2025 5:08 AM EDT [facility] Platelet Count 218 155 - 369 10*3/uL LAB HEMATOLOGY METHOD 03/28/2025 5:08 AM EDT [facility] MCV 92 79 - 98 fL LAB HEMATOLOGY METHOD 03/28/2025 5:08 AM EDT [facility] MCH 30.4 26.0 - 32.0 pg LAB HEMATOLOGY METHOD 03/28/2025 5:08 AM EDT [facility] MCHC 33.1 30.7 - 35.5 g/dL LAB HEMATOLOGY METHOD 03/28/2025 5:08 AM EDT [facility] RDW 13.6 11.5 - 14.5 % LAB HEMATOLOGY METHOD 03/28/2025 5:08 AM EDT [facility] MPV 10.7 8.8 - 12.5 fL LAB HEMATOLOGY METHOD 03/28/2025 5:08 AM EDT [facility] nRBC 0.5(H) <=0.0 per 100 WBCs LAB HEMATOLOGY METHOD 03/28/2025 5:08 AM EDT [facility] Blood Venous blood specimen / Unknown Venipuncture / Unknown 03/28/2025 4:35 AM EDT 03/28/2025 4:43 AM EDT us La Nena March TELEPHONE CLERKS SUPERVISOR LAB BLOOD ORDERABLES Final Res ult [facility] [address] [place] [address] * (ABNORMAL) POCT glucose meter (03/27/2025 8:18 PM EDT) [facility] POCT Glucose 161(H) 74 - 99 mg/dL [...] Comment 03/27/2025 8:20 PM EDT HEALTHCARE LAB Neuropsychology Division Chief ID Mandy Overton 03/27/2025 8:20 PM EDT HEALTHCARE LAB Device ID [id number] 03/27/2025 8:20 PM EDT HEALTHCARE LAB Specimen Type POC Capillary 03/27/2025 8:20 PM EDT [facility] Blood Capillary blood specimen / Unknown 03/27/2025 8:18 PM EDT 03/27/2025 8:20 PM EDT Musa Rosado MD LAB POINT OF CARE TE ST DOCKED DEVICE UNSOLICITED RESULTS Final Result Performing Organization Address City/State/[facility] Co de Phone Number HEALTHCARE LAB [address] [place] [address] * (ABNORMAL) POCT glucose meter (03/27/2025 5:45 PM EDT) [facility] POCT Glucose 184(H) 74 - 99 mg/dL [...] 03/27/2025 5:47 PM EDT [facility] Neuropsychology Division Chief ID GunnarLarry 5:47 PM EDT [facility] Device ID [id number] 03/27/2025 5:47 PM EDT [facility] Specimen Type POC Capillary 03/27/2025 5:47 PM EDT [facility] Blood Capillary blood specimen / Unknown 03/27/2025 5:45 PM EDT 03/27/2025 5:47 PM EDT Musa Rosado MD LAB POINT OF CARE TE ST DOCKED DEVICE UNSOLICITED RESULTS Final Result Performing Organization Address [facility] de Phone Number HEALTHCARE LAB [address] [place] [address] * (ABNORMAL) POCT glucose meter (03/27/2025 1:04 [...] Comment 03/27/2025 1:06 PM EDT [facility]ALTH[facility]ARE [facility] Neuropsychology Division Chief ID Mary Jo Tracey 03/27/20 1:06 PM EDT HEALTHCARE LAB Device ID [id number] 03/27/2025 1:06 PM EDT [facility] Specimen Type POC Capillary 03/27/2025 1:06 PM EDT [facility] Blood Capillary blood specimen / Unknown 03/27/2025 1:04 PM EDT 03/27/2025 1:06 PM EDT Musa Rosado MD LAB POINT OF CARE TE ST DOCKED DEVICE UNSOLICITED RESULTS Final Result Performing Organization Address City/[facility] Co de Phone Number [facility] [address] [place] [address] * (ABNORMAL) POCT glucose meter (03/27/2025 8:42 AM EDT) Pathologist [facility] POCT Glucose 211(H) 74 - 99 mg/dL 03/27/2025 8:44 AM EDT [facility] Comment:Accuracy of [...] Comment 03/27/2025 8:44 AM EDT [facility]ALTHCARE LAB Neuropsychology Division Chief ID Larry Maher 8:44 AM EDT HEALTHCARE LAB Device ID [id number] 03/27/2025 8:44 AM EDT HEALTHCARE LAB Specimen Type POC Capillary 03/27/2025 8:44 AM EDT [facility]ALTH[facility]ARE LAB Blood Capillary blood specimen / Unknown 03/27/2025 8:42 AM EDT 03/27/2025 8:44 AM EDT us Musa Rosado MD LAB POINT OF CARE TE ST DOCKED DEVICE UNSOLICITED RESULTS Final Result Performing Organization Address City/[facility] Co de Phone Number [facility] [address] [place] [address] * Magnesium (03/27/2025 5:02 AM EDT) Magnesium, Plasma 1.9 1.9 - 2.4 mg/dL 03/27/2025 5:49 AM EDT [facility] Blood Venous blood specimen / Unknown Venipuncture / Unknown 03/27/2025 5:02 AM EDT 03/27/2025 5:22 AM EDT us La Nena March APRN LAB BLOOD ORDERABLES Final Res ult [facility] [address] [place] [address] * (ABNORMAL) Comprehensive metabolic panel (03/27/2025 5:02 AM EDT) Glucose, Plasma 200(H) 74 - 99 mg/dL 03/27/2025 5:49 AM EDT [facility] BUN, Plasma 18 7 - 21 mg/dL 03/27/2025 5:49 AM EDT [facility] Creatinine, Plasma 1.03 0.70 - 1.20 mg/dL 03/27/2025 5:49 AM EDT [facility] BUN/Creatinine Ratio 17 03/27/2025 5:49 AM EDT [facility] Sodium, Plasma 138 136 - 145 mmol/L 03/27/2025 5:49 AM EDT [facility] Potassium, Plasma 4.3 3.6 - 4.9 mmol/L 03/27/2025 5:49 AM EDT [facility] Chloride, Plasma 106 97 - 107 mmol/L 03/27/2025 5:49 AM EDT [facility] CO2, Plasma 22 22 - 29 mmol/L 03/27/2025 5:49 AM EDT [facility] Anion Gap 10 6 - 16 mmol/L 03/27/2025 5:49 AM EDT [facility] Total Calcium, Plasma 8.8(L) 8.9 - 10.2 mg/dL 03/27/2025 5:49 AM EDT [facility] Total Protein 6.4 6.3 - 7.9 g/dL 03/27/2025 5:49 AM EDT [facility] Albumin, Plasma 3.4(L) 3.5 - 5.2 g/dL 03/27/2025 5:49 AM EDT [facility] AST, Plasma 21 10 - 50 U/L 03/27/2025 5:49 AM EDT [facility] ALT, Plasma 21 10 - 50 U/L 03/27/2025 5:49 AM EDT [facility] Alkaline Phosphatase, Plasma 59 40 - 115 U/L 03/27/2025 5:49 AM EDT [facility] Total Bilirubin, Plasma 0.8 0.2 - 1.1 mg/dL 03/27/2025 5:49 AM EDT [facility] eGFRcr 92.4 mL/min/1.7 3m*2 03/27/2025 5:49 AM EDT [facility] Comment:Reported eGFRcr in m L/min/1.73m2 is based the CKD-EPI 2020 equation that does not use a race coefficient. Blood Venous blood specimen / Unknown Venipuncture / Unknown 03/27/2025 5:02 AM EDT 03/27/2025 5:22 AM EDT us La Nena Ng March [employer] SUPERVISOR LAB BLOOD ORDERABLES Final Res ult [facility] [address] [place] [address] * (ABNORMAL) Hemogram (CBC) (03/27/2025 5:02 AM EDT) WBC Count 5.04 3.70 - 10.30 10*3/uL LAB HEMATOLOGY METHOD 03/27/2025 5:37 AM EDT [facility] RBC Count 2.93(L) 4.60 - 6.10 10*6/uL LAB HEMATOLOGY METHOD 03/27/2025 5:37 AM EDT [facility] HGB 8.8(L) 13.7 - 17.5 g/dL LAB HEMATOLOGY METHOD 03/27/2025 5:37 AM EDT [facility] HCT 27.3(L) 40.0 - 51.0 % LAB HEMATOLOGY METHOD 03/27/2025 5:37 AM EDT [facility] Platelet Count 174 155 - 369 10*3/uL LAB HEMATOLOGY METHOD 03/27/2025 5:37 AM EDT [facility] MCV 93 79 - 98 fL LAB HEMATOLOGY METHOD 03/27/2025 5:37 AM EDT [facility] MCH 30.0 26.0 - 32.0 pg LAB HEMATOLOGY METHOD 03/27/2025 5:37 AM EDT [facility] MCHC 32.2 30.7 - 35.5 g/dL LAB HEMATOLOGY METHOD 03/27/2025 5:37 AM EDT [facility] RDW 13.7 11.5 - 14.5 % LAB HEMATOLOGY METHOD 03/27/2025 5:37 AM EDT [facility] MPV 10.6 8.8 - 12.5 fL LAB HEMATOLOGY METHOD 03/27/2025 5:37 AM EDT [facility] nRBC 0.6(H) <=0.0 per 100 WBCs LAB HEMATOLOGY METHOD 03/27/2025 5:37 AM EDT [facility] Blood Venous blood specimen / Unknown Venipuncture / Unknown 03/27/2025 5:02 AM EDT 03/27/2025 5:22 AM EDT La Nena March APRN LAB BLOOD ORDERABLES Final Res ult [facility] [address] [place] [address] * XR Chest 1 View (03/27/2025 4:58 [...] Milli Elkins MD on 03/27/2025 10:17 AM us La Nena March APRN IMG XR PROCEDURES [...] Comment 03/27/2025 4:38 AM EDT [facility] Neuropsychology Division Chief ID Norma Vega 025 4:38 AM EDT [facility] Device ID [id number] 03/27/2025 4:38 AM EDT [facility] Specimen Type POC Capillary 03/27/2025 4:38 AM EDT [facility] Blood Capillary blood specimen / Unknown 03/27/2025 4:35 AM EDT 03/27/2025 4:38 AM EDT Musa Rosado MD LAB POINT OF CARE TE ST DOCKED DEVICE UNSOLICITED RESULTS Final Result [facility] [address] [place] [address] * (ABNORMAL) POCT glucose meter (03/26/2025 8:20 PM EDT) [facility] POCT Glucose 260(H) 74 - 99 mg/dL 03/26/2025 8:24 PM EDT [facility] Comment:Accuracy of a [...] Comment 03/26/2025 8:24 PM EDT [facility] Neuropsychology Division Chief ID Norma Vega 025 8:24 PM EDT [facility] Device ID [id number] 03/26/2025 8:24 PM EDT [facility] Specimen Type POC Capillary 03/26/2025 8:24 PM EDT [facility] Blood Capillary blood specimen / Unknown 03/26/2025 8:20 PM EDT 03/26/2025 8:24 PM EDT Musa Rosado MD LAB POINT OF CARE TE ST DOCKED DEVICE UNSOLICITED RESULTS Final Result Performing Organization Address [facility] de Phone Number [facility] [address] [place] [address] * (ABNORMAL) POCT glucose meter (03/26/2025 5:30 PM EDT) [facility] POCT Glucose 211(H) 74 - 99 mg/dL [...] for testing. Comment 03/26/2025 5:34 PM EDT [facility] Neuropsychology Division Chief ID Tonja Olivares 5:34 PM EDT [facility]ARE LAB Device ID [id number] 03/26/2025 5:34 PM EDT [facility] Specimen Type POC Capillary 03/26/2025 5:34 PM EDT [facility] Blood Capillary blood specimen / Unknown 03/26/2025 5:30 PM EDT 03/26/2025 5:34 PM EDT Musa Rosado MD LAB POINT OF CARE TE ST DOCKED DEVICE UNSOLICITED RESULTS Final Result Performing Organization Address City/[facility] Co de Phone Number [facility] [address] [place] [address] * (ABNORMAL) POCT glucose meter (03/26/2025 12:28 PM EDT) [facility] POCT Glucose 254(H) 74 - 99 mg/dL [...] 03/26/2025 12:30 PM EDT [facility] Neuropsychology Division Chief ID Tonja Olivares 12:30 PM EDT [facility] Device ID [id number] 03/26/2025 12:30 PM EDT [facility] Specimen Type POC Capillary 03/26/2025 12:30 PM EDT [facility] Blood Capillary blood specimen / Unknown 03/26/2025 12:28 PM EDT 03/26/2025 12:30 PM EDT us Musa Rosado MD LAB POINT OF CARE TE ST DOCKED DEVICE UNSOLICITED RESULTS Final Result Performing Organization Address City/[facility]/ZIP Co de Phone Number [facility] [address] [place] [address] * (ABNORMAL) POCT glucose meter (03/26/2025 8:40 AM EDT) [facility] POCT Glucose 197(H) 74 - 99 mg/dL [...] for testing. Comment 03/26/2025 8:42 AM EDT [facility] Neuropsychology Division Chief ID Tonja Olivares 8:42 AM EDT [facility] Device ID [id number] 03/26/2025 8:42 AM EDT [facility] Specimen Type POC Capillary 03/26/2025 8:42 AM EDT [facility] Blood Capillary blood specimen / Unknown 03/26/2025 8:40 AM EDT 03/26/2025 8:42 AM EDT us Musa Rosado MD LAB POINT OF CARE TE ST DOCKED DEVICE UNSOLICITED RESULTS Final Result [facility] [address] [place] [address] * XR Chest 1 View (03/26/2025 5:53 [...] MD on 03/26/2025 9:51 AM La Nena Macrh APRN IMG XR PROCEDURES Final Result * (ABNORMAL) Lipid panel (03/26/2025 3:50 AM EDT) Cholesterol, Plasma 76 <200 mg/dL 03/26/2025 4:55 AM EDT [facility] Comment: Cholesterol Reference Range (age >17 years): Desirable <200 mg/dL Borderline 200 to 239 mg/dL Undesirable >239 mg/dL HDL 22(L) >=40 mg/dL 03/26/2025 4:55 AM EDT [facility] Comment: HDL Cholesterol Reference Ranges (age >17 years): Female, acceptable > or = 50 mg/dL Male, acceptable > or = 40 mg/dL Triglycerides, Plasma 152(H) <150 mg/dL 03/26/2025 4:55 AM EDT [facility] Comment: Triglyceride Reference Range (age >17 years): Desirable: <150 mg/dL Borderline high: 150 to 199 mg/dL High: 200 to 499 mg/dL Very high: >499 mg/dL Increased risk of pancreatitis: >1000 mg/dL Cholesterol/HDL Ratio 3 03/26/2025 4:55 AM EDT [facility] LDL, Calculated 28 <100 mg/dL 4:55 AM EDT [facility] Comment: LDL Cholesterol Reference Range (age [...] 12 hours? No 03/26/2025 4:55 AM EDT [facility] Blood Venous blood specimen / Unknown Venipuncture / Unknown 03/26/2025 3:50 AM EDT 03/26/2025 4:26 AM EDT us La Nena March APRN LAB BLOOD ORDERABLES Final Res ult [facility] [address] [place] [address] * Magnesium (03/26/2025 3:50 AM EDT) Magnesium, Plasma 2.1 1.9 - 2.4 mg/dL 03/26/2025 4:55 AM EDT [facility] Blood Venous blood specimen / Unknown Venipuncture / Unknown 03/26/2025 3:50 AM EDT 03/26/2025 4:26 AM EDT us La Nena S Joaquim ARMSTRONG LAB BLOOD ORDERABLES Final Res ult [facility] [address] [place] [address] * (ABNORMAL) Comprehensive metabolic panel (03/26/2025 3:50 AM EDT) Glucose, Plasma 268(H) 74 - 99 mg/dL 03/26/2025 4:55 AM EDT [facility] BUN, Plasma 24(H) 7 - 21 mg/dL 03/26/2025 4:55 AM EDT [facility] Creatinine, Plasma 1.06 0.70 - 1.20 mg/dL 03/26/2025 4:55 AM EDT [facility] BUN/Creatinine Ratio 23 03/26/2025 4:55 AM EDT [facility] Sodium, Plasma 138 136 - 145 mmol/L 03/26/2025 4:55 AM EDT [facility] Potassium, Plasma 4.0 3.6 - 4.9 mmol/L 03/26/2025 4:55 AM EDT [facility] Chloride, Plasma 104 97 - 107 mmol/L 03/26/2025 4:55 AM EDT [facility] CO2, Plasma 25 22 - 29 mmol/L 03/26/2025 4:55 AM EDT [facility] Anion Gap 9 6 - 16 mmol/L 03/26/2025 4:55 AM EDT [facility] Total Calcium, Plasma 8.3(L) 8.9 - 10.2 mg/dL 03/26/2025 4:55 AM EDT [facility] Total Protein 5.9(L) 6.3 - 7.9 g/dL 03/26/2025 4:55 AM EDT [facility] Albumin, Plasma 3.2(L) 3.5 - 5.2 g/dL 03/26/2025 4:55 AM EDT [facility] AST, Plasma 18 10 - 50 U/L 03/26/2025 4:55 AM EDT [facility] ALT, Plasma 14 10 - 50 U/L 03/26/2025 4:55 AM EDT [facility] Alkaline Phosphatase, Plasma 43 40 - 115 U/L 03/26/2025 4:55 AM EDT [facility] Total Bilirubin, Plasma 0.5 0.2 - 1.1 mg/dL 03/26/2025 4:55 AM EDT [facility] eGFRcr 89.3 mL/min/1.7 3m*2 03/26/2025 4:55 AM EDT [facility] Comment:Reported eGFRcr in m L/min/1.73m2 is based the CKD-EPI 2020 equation that does not use a race coefficient. Blood Venous blood specimen / Unknown Venipuncture / Unknown 03/26/2025 3:50 AM EDT 03/26/2025 4:26 AM EDT La Nena March TELE[employer]ER[employer] SUPERVISOR LAB BLOOD ORDERABLES Final Res ult [facility] [address] [place] [address] * (ABNORMAL) Hemogram (CBC) (03/26/2025 3:50 AM EDT) WBC Count 4.53 3.70 - 10.30 10*3/uL LAB HEMATOLOGY METHOD 03/26/2025 4:36 AM EDT [facility] RBC Count 2.56(L) 4.60 - 6.10 10*6/uL LAB HEMATOLOGY METHOD 03/26/2025 4:36 AM EDT [facility] HGB 7.8(L) 13.7 - 17.5 g/dL LAB HEMATOLOGY METHOD 03/26/2025 4:36 AM EDT [facility] HCT 23.9(L) 40.0 - 51.0 % LAB HEMATOLOGY METHOD 03/26/2025 4:36 AM EDT [facility] Platelet Count 129(L) 155 - 369 10*3/uL LAB HEMATOLOGY METHOD 03/26/2025 4:36 AM EDT [facility] MCV 93 79 - 98 fL LAB HEMATOLOGY METHOD 03/26/2025 4:36 AM EDT [facility] MCH 30.5 26.0 - 32.0 pg LAB HEMATOLOGY METHOD 03/26/2025 4:36 AM EDT [facility] MCHC 32.6 30.7 - 35.5 g/dL LAB HEMATOLOGY METHOD 03/26/2025 4:36 AM EDT [facility] RDW 13.5 11.5 - 14.5 % LAB HEMATOLOGY METHOD 03/26/2025 4:36 AM EDT [facility] MPV 11.4 8.8 - 12.5 fL LAB HEMATOLOGY METHOD 03/26/2025 4:36 AM EDT [facility] nRBC 0.4(H) <=0.0 per 100 WBCs LAB HEMATOLOGY METHOD 03/26/2025 4:36 AM EDT [facility] Blood Venous blood specimen / Unknown Venipuncture / Unknown 03/26/2025 3:50 AM EDT 03/26/2025 4:27 AM EDT us La Nena March TELEPHONE CLER[employer] SUPERVISOR LAB BLOOD ORDERABLES Final Res ult [facility] [address] [place] [address] * (ABNORMAL) POCT glucose meter (03/25/2025 9:52 [...] for testing. Comment 03/25/2025 9:54 PM EDT [facility] Neuropsychology Division Chief ID Zaida Stearns 03/25/20 9:54 PM EDT [facility] LAB Device ID [id number] 03/25/2025 9:54 PM EDT [facility] Specimen Type POC Capillary 03/25/2025 9:54 PM EDT [facility] Blood Capillary blood specimen / Unknown 03/25/2025 9:52 PM EDT 03/25/2025 9:54 PM EDT Musa Rosado MD LAB POINT OF CARE TE ST DOCKED DEVICE UNSOLICITED RESULTS Final Result Performing Organization Address City/[facility]/ZIP Co de Phone Number [facility] [address] [place] [address] * (ABNORMAL) POCT glucose meter (03/25/2025 5:01 [...] Comment 03/25/2025 5:02 PM EDT [facility] Neuropsychology Division Chief ID Camille Espana 03/25/2025 5:02 PM EDT [facility] Device ID [id number] 03/25/2025 5:02 PM EDT [facility] Specimen Type POC Capillary 03/25/2025 5:02 PM EDT [facility] Blood Capillary blood specimen / Unknown 03/25/2025 5:01 PM EDT 03/25/2025 5:02 PM EDT Musa Rosado MD LAB POINT OF CARE TE ST DOCKED DEVICE UNSOLICITED RESULTS Final Result [facility] [address] [place] [address] * (ABNORMAL) POCT glucose meter (03/25/2025 10:59 AM EDT) POCT Glucose 206(H) 74 - 99 mg/dL [...] Comment 03/25/2025 11:00 AM EDT [facility] Neuropsychology Division Chief ID Camille Espana 03/25/2025 11:00 AM EDT [facility] Device ID [id number] 03/25/2025 11:00 AM EDT [facility] Specimen Type POC Capillary 03/25/2025 11:00 AM EDT [facility] Blood Capillary blood specimen / Unknown 03/25/2025 10:59 AM EDT 03/25/2025 11:00 AM EDT Musa Rosado MD LAB POINT OF CARE TE ST DOCKED DEVICE UNSOLICITED RESULTS Final Result Performing Organization Address City/State/[facility] Co de Phone Number [facility]ARE [facility] [address] [place] [address] * (ABNORMAL) POCT glucose meter (03/25/2025 7:57 AM EDT) [facility] POCT Glucose 198(H) 74 - 99 mg/dL [...] Comment 03/25/2025 7:58 AM EDT [facility] Neuropsychology Division Chief ID Camille Espana 03/25/2025 7:58 AM EDT [facility] LAB Device ID [id number] 03/25/2025 7:58 AM EDT [facility] Specimen Type POC Capillary 03/25/2025 7:58 AM EDT [facility] Blood Capillary blood specimen / Unknown 03/25/2025 7:57 AM EDT 03/25/2025 7:58 AM EDT Musa Rosado MD LAB POINT OF CARE TE ST DOCKED DEVICE UNSOLICITED RESULTS Final Result Performing Organization Address City/[facility] Co de Phone Number [facility] [address] [place] [address] * (ABNORMAL) Phosphorus, Plasma (03/25/2025 4:07 AM EDT) Phosphorus, Plasma 1.2(L) 2.5 - 4.5 mg/dL 03/25/2025 4:54 AM EDT [facility] Blood Venous blood specimen / Unknown Venipuncture / Unknown 03/25/2025 4:07 AM EDT 03/25/2025 4:20 AM EDT us Musa Rosado MD LAB BLOOD ORDERABLES Final R esult Performing Organization Address [facility] Co de Phone Number [facility] [address] [place] [address] * (ABNORMAL) Magnesium, Plasma (03/25/2025 4:07 AM EDT) Magnesium, Plasma 1.8(L) 1.9 - 2.4 mg/dL 03/25/2025 4:54 AM EDT [facility] Blood Venous blood specimen / Unknown Venipuncture / Unknown 03/25/2025 4:07 AM EDT 03/25/2025 4:20 AM EDT us Musa Rosado MD LAB BLOOD ORDERABLES Final R esult Performing Organization Address City/[facility] Co de Phone Number [facility] [address] [place] [address] * (ABNORMAL) CBC (03/25/2025 4:07 AM EDT) WBC Count 6.01 3.70 - 10.30 10*3/uL LAB HEMATOLOGY METHOD 03/25/2025 4:30 AM EDT [facility] RBC Count 2.47(L) 4.60 - 6.10 10*6/uL LAB HEMATOLOGY METHOD 03/25/2025 4:30 AM EDT [facility] HGB 7.5(L) 13.7 - 17.5 g/dL LAB HEMATOLOGY METHOD 03/25/2025 4:30 AM EDT [facility] HCT 22.8(L) 40.0 - 51.0 % LAB HEMATOLOGY METHOD 03/25/2025 4:30 AM EDT [facility] Platelet Count 105(L) 155 - 369 10*3/uL LAB HEMATOLOGY METHOD 03/25/2025 4:30 AM EDT [facility] MCV 92 79 - 98 fL LAB HEMATOLOGY METHOD 03/25/2025 4:30 AM EDT [facility] MCH 30.4 26.0 - 32.0 pg LAB HEMATOLOGY METHOD 03/25/2025 4:30 AM EDT [facility] MCHC 32.9 30.7 - 35.5 g/dL LAB HEMATOLOGY METHOD 03/25/2025 4:30 AM EDT [facility] RDW 13.4 11.5 - 14.5 % LAB HEMATOLOGY METHOD 03/25/2025 4:30 AM EDT [facility] MPV 11.3 8.8 - 12.5 fL LAB HEMATOLOGY METHOD 03/25/2025 4:30 AM EDT [facility] nRBC 0.0 <=0.0 per 100 WBCs LAB HEMATOLOGY METHOD 03/25/2025 4:30 AM EDT [facility] Blood Venous blood specimen / Unknown Venipuncture / Unknown 03/25/2025 4:07 AM EDT 03/25/2025 4:23 AM EDT us Musa Rosado MD LAB BLOOD ORDERABLES Final R esult [facility] [address] [place] [address] * (ABNORMAL) Basic metabolic panel (03/25/2025 4:07 AM EDT) Glucose, Plasma 183(H) 74 - 99 mg/dL 03/25/2025 4:54 AM EDT [facility] BUN, Plasma 22(H) 7 - 21 mg/dL 03/25/2025 4:54 AM EDT [facility] Creatinine, Plasma 1.04 0.70 - 1.20 mg/dL 03/25/2025 4:54 AM EDT [facility] BUN/Creatinine Ratio 21 03/25/2025 4:54 AM EDT [facility] Sodium, Plasma 136 136 - 145 mmol/L 03/25/2025 4:54 AM EDT [facility] Potassium, Plasma 4.3 3.6 - 4.9 mmol/L 03/25/2025 4:54 AM EDT [facility] Chloride, Plasma 101 97 - 107 mmol/L 03/25/2025 4:54 AM EDT [facility] CO2, Plasma 26 22 - 29 mmol/L 03/25/2025 4:54 AM EDT [facility] Anion Gap 9 6 - 16 mmol/L 03/25/2025 4:54 AM EDT [facility] Total Calcium, Plasma 8.2(L) 8.9 - 10.2 mg/dL 03/25/2025 4:54 AM EDT [facility] eGFRcr 91.4 mL/min/1.7 3m*2 03/25/2025 4:54 AM EDT [facility] Comment:Reported eGFRcr in m L/min/1.73m2 is based the CKD-EPI 2020 equation that does not use a race coefficient. Blood Venous blood specimen / Unknown Venipuncture / Unknown 03/25/2025 4:07 AM EDT 03/25/2025 4:20 AM EDT us Musa Rosado MD LAB BLOOD ORDERABLES Final R esult [facility] [address] [place] [address] * XR Chest 1 View (03/25/2025 2:52 [...] - 99 mg/dL 03/24/2025 9:06 PM EDT [facility] Comment:Accuracy of [...] for testing. Comment 03/24/2025 9:06 PM EDT [facility] Neuropsychology Division Chief ID [email or web address] [email or web address] 03/24/2025 9:06 PM EDT [facility] Device ID [id number] 03/24/2025 9:06 PM EDT [facility] Specimen Type POC Capillary 03/24/2025 9:06 PM EDT [facility] Blood Capillary blood specimen / Unknown 03/24/2025 9:05 PM EDT 03/24/2025 9:06 PM EDT Musa Rosado MD LAB POINT OF CARE TE ST DOCKED DEVICE UNSOLICITED RESULTS Final Result Performing Organization Address City/[facility] de Phone Number [facility] [address] [place] [address] * (ABNORMAL) POCT glucose meter (03/24/2025 4:19 [...] Comment 03/24/2025 4:20 PM EDT [facility] Neuropsychology Division Chief ID Beverly Alonso 03/24/2025 4:20 PM EDT [facility] LAB Device ID [id number] 03/24/2025 4:20 PM EDT [facility] Specimen Type POC Arterial 03/24/2025 4:20 PM EDT [facility] Blood Arterial blood specimen / Unknown 03/24/2025 4:19 PM EDT 03/24/2025 4:20 PM EDT Musa Rosado MD LAB POINT OF CARE TE ST DOCKED DEVICE UNSOLICITED RESULTS Final Result Performing Organization Address City/[facility] Co de Phone Number [facility] [address] [place] [address] * (ABNORMAL) POCT glucose meter (03/24/2025 11:44 [...] Comment 03/24/2025 11:46 AM EDT [facility] Neuropsychology Division Chief ID Beverly Alonso 03/24/2025 11:46 AM EDT [facility]ALTH[facility] LAB Device ID [id number] 03/24/2025 11:46 AM EDT [facility] Specimen Type POC Arterial 03/24/2025 11:46 AM EDT [facility] Blood Arterial blood specimen / Unknown 03/24/2025 11:44 AM EDT 03/24/2025 11:46 AM EDT us Musa Rosado MD LAB POINT OF CARE TE ST DOCKED DEVICE UNSOLICITED RESULTS Final Result Performing Organization Address City/State/[facility] Phone Number HEALTHCARE [facility] [address] [place] [address] * MD CRITICAL CARE, E/M 30-74 MINUTES [...] - 99 mg/dL 03/24/2025 8:21 AM EDT [facility]ALTH[facility]ARE [facility] Comment:Accuracy of a [...] for testing. Comment 03/24/2025 8:21 AM EDT [facility]ALTH[facility]ARE [facility] Neuropsychology Division Chief ID Beverly Alonso 03/24/2025 8:21 AM EDT HEALTHCARE LAB Device ID [id number] 03/24/2025 8:21 AM EDT [facility]ALTHCARE [facility] Specimen Type POC Arterial 03/24/2025 8:21 AM EDT [facility] Blood Arterial blood specimen / Unknown 03/24/2025 7:45 AM EDT 03/24/2025 8:21 AM EDT Musa Rosado MD LAB POINT OF CARE TE ST DOCKED DEVICE UNSOLICITED RESULTS Final Result [facility] [address] [place] [address] * (ABNORMAL) POCT glucose meter (03/24/2025 5:56 AM EDT) [facility] POCT Glucose 146(H) 74 - 99 mg/dL [...] Comment 03/24/2025 5:58 AM EDT [facility]ALTHCARE [facility] Neuropsychology Division Chief ID Yuri Diggs 03/24/2025 5:58 AM EDT HEALTHCARE LAB Device ID [id number] 03/24/2025 5:58 AM EDT [facility] Specimen Type POC Capillary 03/24/2025 5:58 AM EDT [facility] Blood Capillary blood specimen / Unknown 03/24/2025 5:56 AM EDT 03/24/2025 5:58 AM EDT Musa Rosado MD LAB POINT OF CARE TE ST DOCKED DEVICE UNSOLICITED RESULTS Final Result Performing Organization Address [facility] de Phone Number HEALTHCARE LAB [address] [place] [address] * (ABNORMAL) POCT glucose meter (03/24/2025 3:40 AM EDT) [facility] POCT Glucose 180(H) 74 - 99 mg/dL [...] 03/24/2025 3:41 AM EDT [facility] Neuropsychology Division Chief ID Yuri Diggs 03/24/2025 3:41 AM EDT HEALTH[facility]ARE [facility] Device ID [id number] 03/24/2025 3:41 AM EDT [facility] Specimen Type POC Capillary 03/24/2025 3:41 AM EDT [facility] Blood Capillary blood specimen / Unknown 03/24/2025 3:40 AM EDT 03/24/2025 3:41 AM EDT Musa Rosado MD LAB POINT OF CARE TE ST DOCKED DEVICE UNSOLICITED RESULTS Final Result Performing Organization Address City/[facility] de Phone Number [facility] [address] [place] [address] * XR Chest 1 View (03/24/2025 3:14 AM EDT) Anatomical Region Laterality Modality Chest Digital Radiogra phy Impressions 03/24/2025 9:52 AM EDT Interval removal of the Climax-Brea catheter. Otherwise no significant interval change. CRITICAL RESULT: No. COMMUNICATION: Per this written report. Drafted by Milli Elkins MD on 03/24/2025 9:51 AM Final report signed by Milli Elkins MD on 03/24/2025 9:52 AM Narrative 03/24/2025 9:52 AM EDT CLINICAL INDICATION: Post-Op Cardiac Surgery TECHNIQUE: Single AP view of chest. COMPARISON: One day prior FINDINGS: Interval removal of the Climax-Brea catheter. The rest of the portal hardware [...] day prior FINDINGS: Interval removal of the Climax-Brea catheter. The rest of the portalhardware unchanged. The cardiac and mediastinal contours are unchanged. Nosizable pneumothorax. Small left pleural effusion similar to prior.Persistent bilateral perihilar and bibasal lung opacities may representatelectasis. No new lung consolidation. Persistent low lung volume. IMPRESSION: Interval removal of the Climax-Brea catheter. Otherwise no significantinterval change. CRITICAL RESULT: No. COMMUNICATION: Per this written report. Drafted by Milli Elkins MD on 03/24/2025 9:51 AM Final report signed by Milli Elkins MD on 03/24/2025 9:52 AM Musa Rosado MD IMG XR PROCEDURES Final Resu lt * (ABNORMAL) POCT glucose meter (03/24/2025 1:46 AM EDT) POCT Glucose 143(H) 74 - 99 mg/dL 03/24/2025 1:48 AM EDT [facility] Comment:Accuracy of a glucos e result [...] 03/24/2025 1:48 AM EDT [facility] Neuropsychology Division Chief ID Yuri Diggs 03/24/2025 1:48 AM EDT [facility] Device ID [id number] 03/24/2025 1:48 AM EDT [facility] Specimen Type POC Capillary 03/24/2025 1:48 AM EDT [facility] Blood Capillary blood specimen / Unknown 03/24/2025 1:46 AM EDT 03/24/2025 1:48 AM EDT us Musa Rosado MD LAB POINT OF CARE TE ST DOCKED DEVICE UNSOLICITED RESULTS Final Result [facility] [address] [place] [address] * (ABNORMAL) Blood gas, arterial (03/24/2025 12:08 AM EDT) pH, Arterial 7.42 7.35 - 7.45 LAB HEMATOLOGY METHOD 03/24/2025 12:18 AM EDT [facility] pCO2, Arterial 43 32 - 45 mmHg LAB HEMATOLOGY METHOD 03/24/2025 12:18 AM EDT [facility] pO2, Arterial 58(LL) 83 - 108 mmHg LAB HEMATOLOGY METHOD 03/24/2025 12:18 AM EDT [facility] SO2, Measured, Arterial 90(L) 94 - 98 % LAB HEMATOLOGY METHOD 03/24/2025 12:18 AM EDT [facility] Base Excess, Arterial 2.9 -2.0 - 3.0 mmol/L LAB HEMATOLOGY METHOD 03/24/2025 12:18 AM EDT [facility] Bicarbonate, Calculated, Arterial 28(H) 22 - 26 mmol/L LAB HEMATOLOGY METHOD 03/24/2025 12:18 AM EDT [facility] Hematocrit, Whole Blood 26.5(L) 40.0 - 51.0 % LAB HEMATOLOGY METHOD 03/24/2025 12:18 AM EDT [facility] Sodium, Whole Blood 138 136 - 145 mmol/L LAB HEMATOLOGY METHOD 03/24/2025 12:18 AM EDT [facility] Potassium, Whole Blood 4.2 3.6 - 4.9 mmol/L LAB HEMATOLOGY METHOD 03/24/2025 12:18 AM EDT [facility] Chloride, Whole Blood 104 97 - 107 mmol/L LAB HEMATOLOGY METHOD 03/24/2025 12:18 AM EDT [facility] Glucose, Whole Blood 161(H) 74 - 99 mg/dL LAB HEMATOLOGY METHOD 03/24/2025 12:18 AM EDT [facility] Ionized Calcium, Whole Blood 4.6 4.6 - 5.1 mg/dL LAB HEMATOLOGY METHOD 03/24/2025 12:18 AM EDT [facility] Lactate, Arterial, Whole Blood 1.1 0.5 - 1.6 mmol/L LAB HEMATOLOGY METHOD 03/24/2025 12:18 AM EDT [facility] Blood Arterial blood specimen / Unknown Arterial Puncture / Unknown 03/24/2025 12:08 AM EDT 03/24/2025 12:14 AM EDT us Musa Rosado MD LAB BLOOD ORDERABLES Final R esult Performing Organization Address City/[facility]/ZIP Co de Phone Number [facility] [address] [place] [address] * (ABNORMAL) Phosphorus, Plasma (03/24/2025 12:07 AM EDT) Phosphorus, Plasma 2.1(L) 2.5 - 4.5 mg/dL 03/24/2025 12:44 AM EDT [facility] Blood Arterial blood specimen / Unknown Venipuncture / Unknown 03/24/2025 12:07 AM EDT 03/24/2025 12:16 AM EDT us Musa Rosado MD LAB BLOOD ORDERABLES Final R esult [facility] [address] [place] [address] * Magnesium, Plasma (03/24/2025 12:07 AM EDT) Magnesium, Plasma 2.1 1.9 - 2.4 mg/dL 03/24/2025 12:44 AM EDT [facility] Blood Arterial blood specimen / Unknown Venipuncture / Unknown 03/24/2025 12:07 AM EDT 03/24/2025 12:16 AM EDT us Musa Rosado MD LAB BLOOD ORDERABLES Final R esult [facility] [address] [place] [address] * (ABNORMAL) CBC (03/24/2025 12:07 AM EDT) WBC Count 11.14(H) 3.70 - 10.30 10*3/uL LAB HEMATOLOGY METHOD 03/24/2025 12:26 AM EDT [facility] RBC Count 2.80(L) 4.60 - 6.10 10*6/uL LAB HEMATOLOGY METHOD 03/24/2025 12:26 AM EDT [facility] HGB 8.5(L) 13.7 - 17.5 g/dL LAB HEMATOLOGY METHOD 03/24/2025 12:26 AM EDT [facility] HCT 26.3(L) 40.0 - 51.0 % LAB HEMATOLOGY METHOD 03/24/2025 12:26 AM EDT [facility] Platelet Count 121(L) 155 - 369 10*3/uL LAB HEMATOLOGY METHOD 03/24/2025 12:26 AM EDT [facility] MCV 94 79 - 98 fL LAB HEMATOLOGY METHOD 03/24/2025 12:26 AM EDT [facility] MCH 30.4 26.0 - 32.0 pg LAB HEMATOLOGY METHOD 03/24/2025 12:26 AM EDT [facility] MCHC 32.3 30.7 - 35.5 g/dL LAB HEMATOLOGY METHOD 03/24/2025 12:26 AM EDT [facility] RDW 14.1 11.5 - 14.5 % LAB HEMATOLOGY METHOD 03/24/2025 12:26 AM EDT [facility] MPV 11.4 8.8 - 12.5 fL LAB HEMATOLOGY METHOD 03/24/2025 12:26 AM EDT [facility] nRBC 0.0 <=0.0 per 100 WBCs LAB HEMATOLOGY METHOD 03/24/2025 12:26 AM EDT [facility] Blood Arterial blood specimen / Unknown Venipuncture / Unknown 03/24/2025 12:07 AM EDT 03/24/2025 12:17 AM EDT us Musa Rosado MD LAB BLOOD ORDERABLES Final R esult [facility] [address] [place] [address] * (ABNORMAL) Basic metabolic panel (03/24/2025 12:07 AM EDT) Glucose, Plasma 164(H) 74 - 99 mg/dL 03/24/2025 12:44 AM EDT [facility] BUN, Plasma 21 7 - 21 mg/dL 03/24/2025 12:44 AM EDT [facility] Creatinine, Plasma 1.13 0.70 - 1.20 mg/dL 03/24/2025 12:44 AM EDT [facility] BUN/Creatinine Ratio 19 03/24/2025 12:44 AM EDT [facility] Sodium, Plasma 137 136 - 145 mmol/L 03/24/2025 12:44 AM EDT [facility] Potassium, Plasma 4.4 3.6 - 4.9 mmol/L 03/24/2025 12:44 AM EDT [facility] Chloride, Plasma 104 97 - 107 mmol/L 03/24/2025 12:44 AM EDT [facility] CO2, Plasma 25 22 - 29 mmol/L 03/24/2025 12:44 AM EDT [facility] Anion Gap 8 6 - 16 mmol/L 03/24/2025 12:44 AM EDT [facility] Total Calcium, Plasma 8.4(L) 8.9 - 10.2 mg/dL 03/24/2025 12:44 AM EDT [facility] eGFRcr 82.7 mL/min/1.7 3m*2 03/24/2025 12:44 AM EDT [facility] Comment:Reported eGFRcr in m L/min/1.73m2 is based the CKD-EPI 2020 equation that does not use a race coefficient. Blood Arterial blood specimen / Unknown Venipuncture / Unknown 03/24/2025 12:07 AM EDT 03/24/2025 12:16 AM EDT Musa Rosado MD LAB BLOOD ORDERABLES Final R esult [facility] [address] [place] [address] * (ABNORMAL) POCT glucose meter (03/23/2025 9:43 PM EDT) POCT Glucose 176(H) 74 - 99 mg/dL 03/23/2025 9:44 PM EDT [facility] Comment:Accuracy of [...] Comment 03/23/2025 9:44 PM EDT [facility] Neuropsychology Division Chief ID Yuri Diggs 03/23/2025 9:44 PM EDT [facility] Device ID [id number] 03/23/2025 9:44 PM EDT [facility] Specimen Type POC Capillary 03/23/2025 9:44 PM EDT [facility] Blood Capillary blood specimen / Unknown 03/23/2025 9:43 PM EDT 03/23/2025 9:44 PM EDT Musa Rosado MD LAB POINT OF CARE TE ST DOCKED DEVICE UNSOLICITED RESULTS Final Result [facility] [address] [place] [address] * (ABNORMAL) POCT glucose meter (03/23/2025 7:55 PM EDT) POCT Glucose 140(H) 74 - 99 mg/dL [...] for testing. Comment 03/23/2025 7:57 PM EDT [facility] Neuropsychology Division Chief ID Yuri Diggs 03/23/2025 7:57 PM EDT [facility] Device ID [id number] 03/23/2025 7:57 PM EDT [facility] Specimen Type POC Capillary 03/23/2025 7:57 PM EDT [facility] Blood Capillary blood specimen / Unknown 03/23/2025 7:55 PM EDT 03/23/2025 7:57 PM EDT us Musa Rosado MD LAB POINT OF CARE TE ST DOCKED DEVICE UNSOLICITED RESULTS Final Result Performing Organization Address [facility] Co de Phone Number [facility] [address] [place] [address] * (ABNORMAL) POCT glucose meter (03/23/2025 6:27 [...] for testing. Comment 03/23/2025 6:29 PM EDT [facility] Neuropsychology Division Chief ID Jose Alberto Collins 03/23/2025 6:29 PM EDT [facility] Device ID [id number] 03/23/2025 6:29 PM EDT [facility] Specimen Type POC Arterial 03/23/2025 6:29 PM EDT [facility] Blood Arterial blood specimen / Unknown 03/23/2025 6:27 PM EDT 03/23/2025 6:29 PM EDT Musa Rosado MD LAB POINT OF CARE TE ST DOCKED DEVICE UNSOLICITED RESULTS Final Result Performing Organization Address City/[facility]/ZIP Co de Phone Number [facility] [address] [place] [address] * (ABNORMAL) POCT glucose meter (03/23/2025 4:12 PM EDT) Pathologist [facility] POCT Glucose 159(H) 74 - 99 mg/dL [...] Comment 03/23/2025 4:14 PM EDT [facility] Neuropsychology Division Chief ID Jose Alberto Collins 03/23/2025 4:14 PM EDT [facility] Device ID [id number] 03/23/2025 4:14 PM EDT [facility] Specimen Type POC Arterial 03/23/2025 4:14 PM EDT [facility] Blood Arterial blood specimen / Unknown 03/23/2025 4:12 PM EDT 03/23/2025 4:14 PM EDT Musa Rosado MD LAB POINT OF CARE TE ST DOCKED DEVICE UNSOLICITED RESULTS Final Result Performing Organization Address City/State/[facility] Co de Phone Number [facility] [address] [place] [address] * (ABNORMAL) POCT glucose meter (03/23/2025 1:57 PM EDT) Pathologist [facility] POCT Glucose 129(H) 74 - 99 mg/dL [...] for testing. Comment 03/23/2025 1:58 PM EDT [facility] Neuropsychology Division Chief ID Jose Alberto Collins 03/23/2025 1:58 PM EDT [facility] Device ID [id number] 03/23/2025 1:58 PM EDT [facility] Specimen Type POC Arterial 03/23/2025 1:58 PM EDT [facility] Blood Arterial blood specimen / Unknown 03/23/2025 1:57 PM EDT 03/23/2025 1:58 PM EDT us Musa Rosado MD LAB POINT OF CARE TE ST DOCKED DEVICE UNSOLICITED RESULTS Final Result Performing Organization Address City/State/[facility] Co de Phone Number [facility] [address] [place] [address] * MD CRITICAL CARE, E/M 30-74 MINUTES [...] POCT glucose meter (03/23/2025 11:59 AM EDT) Pathologist [facility] POCT Glucose 126(H) 74 - 99 mg/dL 03/23/2025 12:00 PM EDT [facility] Comment:Accuracy of a glucos e result [...] for testing. Comment 03/23/2025 12:00 PM EDT [facility] Neuropsychology Division Chief ID Jose Alberto Collins 03/23/2025 12:00 PM EDT [facility] Device ID [id number] 03/23/2025 12:00 PM EDT [facility] Specimen Type POC Arterial 03/23/2025 12:00 PM EDT [facility] Blood Arterial blood specimen / Unknown 03/23/2025 11:59 AM EDT 03/23/2025 12:00 PM EDT Musa Rosado MD LAB POINT OF CARE TE ST DOCKED DEVICE UNSOLICITED RESULTS Final Result Performing Organization Address City/[facility] de Phone Number [facility] [address] [place] [address] * (ABNORMAL) POCT glucose meter (03/23/2025 10:06 AM EDT) [facility] POCT Glucose 143(H) 74 - 99 mg/dL 03/23/2025 10:07 AM EDT [facility] Comment:Accuracy of a [...] Comment 03/23/2025 10:07 AM EDT [facility] Neuropsychology Division Chief ID Jose Alberto Collins 03/23/2025 10:07 AM EDT [facility] Device ID [id number] 03/23/2025 10:07 AM EDT [facility] Specimen Type POC Arterial 03/23/2025 10:07 AM EDT [facility] Blood Arterial blood specimen / Unknown 03/23/2025 10:06 AM EDT 03/23/2025 10:07 AM EDT us Musa Rosado MD LAB POINT OF CARE TE ST DOCKED DEVICE UNSOLICITED RESULTS Final Result Performing Organization Address City/[facility] Co de Phone Number [facility] [address] [place] [address] * (ABNORMAL) POCT glucose meter (03/23/2025 8:01 AM EDT) [facility] POCT Glucose 142(H) 74 - 99 mg/dL [...] Comment 03/23/2025 8:03 AM EDT [facility] Neuropsychology Division Chief ID Jose Alberto Collins 03/23/2025 8:03 AM EDT [facility] LAB Device ID [id number] 03/23/2025 8:03 AM EDT [facility] Specimen Type POC Arterial 03/23/2025 8:03 AM EDT [facility] Blood Arterial blood specimen / Unknown 03/23/2025 8:01 AM EDT 03/23/2025 8:03 AM EDT Musa Rosado MD LAB POINT OF CARE TE ST DOCKED DEVICE UNSOLICITED RESULTS Final Result Performing Organization Address City/State/[facility] Co de Phone Number [facility] [address] [place] [address] * (ABNORMAL) Blood gas panel, arterial (03/23/2025 6:18 AM EDT) [facility] pH, Arterial 7.39 7.35 - 7.45 LAB HEMATOLOGY METHOD 03/23/2025 6:31 AM EDT [facility] pCO2, Arterial 41 32 - 45 mmHg LAB HEMATOLOGY METHOD 03/23/2025 6:31 AM EDT [facility] pO2, Arterial 75(L) 83 - 108 mmHg LAB HEMATOLOGY METHOD 03/23/2025 6:31 AM EDT [facility] SO2, Measured, Arterial 94 94 - 98 % LAB HEMATOLOGY METHOD 03/23/2025 6:31 AM EDT [facility] Base Excess, Arterial -0.2 -2.0 - 3.0 mmol/L LAB HEMATOLOGY METHOD 03/23/2025 6:31 AM EDT [facility] Bicarbonate, Calculated, Arterial 25 22 - 26 mmol/L LAB HEMATOLOGY METHOD 03/23/2025 6:31 AM EDT [facility] Hematocrit, Whole Blood 28.9(L) 40.0 - 51.0 % LAB HEMATOLOGY METHOD 03/23/2025 6:31 AM EDT [facility] Sodium, Whole Blood 141 136 - 145 mmol/L LAB HEMATOLOGY METHOD 03/23/2025 6:31 AM EDT [facility] Potassium, Whole Blood 4.1 3.6 - 4.9 mmol/L LAB HEMATOLOGY METHOD 03/23/2025 6:31 AM EDT [facility] Chloride, Whole Blood 108(H) 97 - 107 mmol/L LAB HEMATOLOGY METHOD 03/23/2025 6:31 AM EDT [facility] Glucose, Whole Blood 162(H) 74 - 99 mg/dL LAB HEMATOLOGY METHOD 03/23/2025 6:31 AM EDT [facility] Ionized Calcium, Whole Blood 4.4(L) 4.6 - 5.1 mg/dL LAB HEMATOLOGY METHOD 03/23/2025 6:31 AM EDT [facility] Lactate, Arterial, Whole Blood 1.9(H) 0.5 - 1.6 mmol/L LAB HEMATOLOGY METHOD 03/23/2025 6:31 AM EDT [facility] Blood Arterial blood specimen / Unknown Arterial Puncture / Unknown 03/23/2025 6:18 AM EDT 03/23/2025 6:27 AM EDT us Musa Rosado MD LAB BLOOD ORDERABLES Final R esult Performing Organization Address City/State/[facility] Co de Phone Number [facility] [address] [place] [id number] * (ABNORMAL) POCT glucose meter (03/23/2025 6:11 AM EDT) POCT Glucose 154(H) 74 - 99 mg/dL 03/23/2025 6:13 AM EDT [facility] Comment:Accuracy of a glucos e result [...] Comment 03/23/2025 6:13 AM EDT [facility] Neuropsychology Division Chief ID Deangelo Haynesswi 03/23/2025 6:13 AM EDT [facility] LAB Device ID [id number] 03/23/2025 6:13 AM EDT [facility] Specimen Type POC Arterial 03/23/2025 6:13 AM EDT [facility] Blood Arterial blood specimen / Unknown 03/23/2025 6:11 AM EDT 03/23/2025 6:13 AM EDT us Musa Rosado MD LAB POINT OF CARE TE ST DOCKED DEVICE UNSOLICITED RESULTS Final Result [facility] [address] [place] [address] * ECG Adult (03/23/2025 4:28 AM EDT) EKG DIAGNOSIS CLASS Abnormal MUSE ECG Ventricular Rate 77 BPM MUSE ECG Atrial Rate 77 BPM MUSE ECG MD Interval 150 ms MUSE ECG QRSD Interval 78 ms MUSE ECG QT Interval 366 ms MUSE ECG QTC Interval 414 ms MUSE ECG P Demotte 49 degrees MUSE ECG R Demotte -7 degrees MUSE ECG T Wave Demotte -4 degrees MUSE ECG Diagnosis Normal sinus rhythm MUSE ECG Diagnosis ST elevation, consider early repolarization , pericarditis, or injury MUSE ECG Diagnosis Nonspecific T wave abnormality MUSE ECG Diagnosis Need clinical information and correlation MUSE ECG Diagnosis MUSE ECG Diagnosis Confirmed by Jarett Steen ([id number]) on 03/23/2025 8:36:37 AM MUSE ECG 03/23/2025 4:28 AM EDT 03/23/2025 8:36 AM EDT us Musa Rosado MD ECG ORDERABLES Final Result MUSE ECG * (ABNORMAL) POCT glucose meter [...] for testing. Comment 03/23/2025 4:01 AM EDT [facility] Neuropsychology Division Chief ID Marsha Haynesjaswi 03/23/2025 4:01 AM EDT [facility]ALTH[facility]ARE LAB Device ID [id number] 03/23/2025 4:01 AM EDT [facility] Specimen Type POC Arterial 03/23/2025 4:01 AM EDT [facility] Blood Arterial blood specimen / Unknown 03/23/2025 3:59 AM EDT 03/23/2025 4:01 AM EDT Musa Rosado MD LAB POINT OF CARE TE ST DOCKED DEVICE UNSOLICITED RESULTS Final Result Performing Organization Address City/[facility] Co de Phone Number [facility] [address] [place] [address] * Phosphorus, Plasma (03/23/2025 3:56 AM EDT) Phosphorus, Plasma 3.7 2.5 - 4.5 mg/dL 03/23/2025 4:40 AM EDT [facility] Blood Arterial blood specimen / Unknown Arterial Puncture / Unknown 03/23/2025 3:56 AM EDT 03/23/2025 4:12 AM EDT Musa Rosado MD LAB BLOOD ORDERABLES Final R esult [facility] [address] [place] [address] * Magnesium, Plasma (03/23/2025 3:56 AM EDT) Magnesium, Plasma 2.2 1.9 - 2.4 mg/dL 03/23/2025 4:40 AM EDT [facility] Blood Arterial blood specimen / Unknown Arterial Puncture / Unknown 03/23/2025 3:56 AM EDT 03/23/2025 4:12 AM EDT us Musa Rosado MD LAB BLOOD ORDERABLES Final R esult [facility] [address] [place] [address] * (ABNORMAL) Basic metabolic panel (03/23/2025 3:56 AM EDT) Glucose, Plasma 159(H) 74 - 99 mg/dL 03/23/2025 4:40 AM EDT [facility] BUN, Plasma 18 7 - 21 mg/dL 03/23/2025 4:40 AM EDT [facility] Creatinine, Plasma 1.09 0.70 - 1.20 mg/dL 03/23/2025 4:40 AM EDT [facility] BUN/Creatinine Ratio 17 03/23/2025 4:40 AM EDT [facility] Sodium, Plasma 140 136 - 145 mmol/L 03/23/2025 4:40 AM EDT [facility] Potassium, Plasma 4.2 3.6 - 4.9 mmol/L 03/23/2025 4:40 AM EDT [facility] Chloride, Plasma 109(H) 97 - 107 mmol/L 03/23/2025 4:40 AM EDT [facility] CO2, Plasma 22 22 - 29 mmol/L 03/23/2025 4:40 AM EDT [facility] Anion Gap 9 6 - 16 mmol/L 03/23/2025 4:40 AM EDT [facility] Total Calcium, Plasma 8.4(L) 8.9 - 10.2 mg/dL 03/23/2025 4:40 AM EDT [facility] eGFRcr 86.4 mL/min/1.7 3m*2 03/23/2025 4:40 AM EDT [facility] Comment:Reported eGFRcr in m L/min/1.73m2 is based the CKD-EPI 2020 equation that does not use a race coefficient. Blood Arterial blood specimen / Unknown Arterial Puncture / Unknown 03/23/2025 3:56 AM EDT 03/23/2025 4:12 AM EDT us Musa Rosado MD LAB BLOOD ORDERABLES Final R esult [facility] [address] [place] [address] * (ABNORMAL) Blood gas, arterial (03/23/2025 3:56 AM EDT) pH, Arterial 7.40 7.35 - 7.45 LAB HEMATOLOGY METHOD 03/23/2025 4:11 AM EDT [facility] pCO2, Arterial 40 32 - 45 mmHg LAB HEMATOLOGY METHOD 03/23/2025 4:11 AM EDT [facility] pO2, Arterial 67(L) 83 - 108 mmHg LAB HEMATOLOGY METHOD 03/23/2025 4:11 AM EDT [facility] SO2, Measured, Arterial 92(L) 94 - 98 % LAB HEMATOLOGY METHOD 03/23/2025 4:11 AM EDT [facility] Base Excess, Arterial 0.0 -2.0 - 3.0 mmol/L LAB HEMATOLOGY METHOD 03/23/2025 4:11 AM EDT [facility] Bicarbonate, Calculated, Arterial 25 22 - 26 mmol/L LAB HEMATOLOGY METHOD 03/23/2025 4:11 AM EDT [facility] Hematocrit, Whole Blood 29.5(L) 40.0 - 51.0 % LAB HEMATOLOGY METHOD 03/23/2025 4:11 AM EDT [facility] Sodium, Whole Blood 142 136 - 145 mmol/L LAB HEMATOLOGY METHOD 03/23/2025 4:11 AM EDT [facility] Potassium, Whole Blood 4.1 3.6 - 4.9 mmol/L LAB HEMATOLOGY METHOD 03/23/2025 4:11 AM EDT [facility] Chloride, Whole Blood 108(H) 97 - 107 mmol/L LAB HEMATOLOGY METHOD 03/23/2025 4:11 AM EDT [facility] Glucose, Whole Blood 154(H) 74 - 99 mg/dL LAB HEMATOLOGY METHOD 03/23/2025 4:11 AM EDT [facility] Ionized Calcium, Whole Blood 4.4(L) 4.6 - 5.1 mg/dL LAB HEMATOLOGY METHOD 03/23/2025 4:11 AM EDT [facility] Lactate, Arterial, Whole Blood 1.8(H) 0.5 - 1.6 mmol/L LAB HEMATOLOGY METHOD 03/23/2025 4:11 AM EDT [facility] Blood Arterial blood specimen / Unknown Arterial Puncture / Unknown 03/23/2025 3:56 AM EDT 03/23/2025 4:09 AM EDT Musa Rosado MD LAB BLOOD ORDERABLES Final R esult Performing Organization Address City/[facility]/ZIP Co de Phone Number [facility] [address] [place] [address] * Potassium, Plasma (03/23/2025 3:56 AM EDT) Potassium, Plasma 4.2 3.6 - 4.9 mmol/L 03/23/2025 4:40 AM EDT [facility] Blood Arterial blood specimen / Unknown Arterial Puncture / Unknown 03/23/2025 3:56 AM EDT 03/23/2025 4:12 AM EDT Musa Rosado MD LAB BLOOD ORDERABLES Final R esult [facility] [address] [place] [address] * (ABNORMAL) Blood gas panel with oximetry, mixed venous (03/23/2025 3:53 AM EDT) pH, Mixed Venous 7.37 7.32 - 7.43 LAB HEMATOLOGY METHOD 03/23/2025 4:11 AM EDT [facility] pCO2, Mixed Venous 46 40 - 55 mmHg LAB HEMATOLOGY METHOD 03/23/2025 4:11 AM EDT [facility] pO2, Mixed Venous 34 25 - 40 mmHg LAB HEMATOLOGY METHOD 03/23/2025 4:11 AM EDT [facility] SO2, Measured, Mixed Venous 63(L) 65 - 80 % LAB HEMATOLOGY METHOD 03/23/2025 4:11 AM EDT [facility] Bicarbonate, Calculated, Mixed Venous 26 22 - 26 mmol/L LAB HEMATOLOGY METHOD 03/23/2025 4:11 AM EDT [facility] Base Excess, Mixed Venous 0.4 -2.0 - 3.0 mmol/L LAB HEMATOLOGY METHOD 03/23/2025 4:11 AM EDT [facility] Hematocrit, Whole Blood 30.3(L) 40.0 - 51.0 % LAB HEMATOLOGY METHOD 03/23/2025 4:11 AM EDT [facility] Sodium, Whole Blood 142 136 - 145 mmol/L LAB HEMATOLOGY METHOD 03/23/2025 4:11 AM EDT [facility] Potassium, Whole Blood 4.0 3.6 - 4.9 mmol/L LAB HEMATOLOGY METHOD 03/23/2025 4:11 AM EDT [facility] Chloride, Whole Blood 109(H) 97 - 107 mmol/L LAB HEMATOLOGY METHOD 03/23/2025 4:11 AM EDT [facility] Ionized Calcium, Whole Blood 4.4(L) 4.6 - 5.1 mg/dL LAB HEMATOLOGY METHOD 03/23/2025 4:11 AM EDT [facility] Glucose, Whole Blood 152(H) 74 - 99 mg/dL LAB HEMATOLOGY METHOD 03/23/2025 4:11 AM EDT [facility] Oxyhemoglobin, Mixed Venous, Whole Blood 61.7 40.0 - 70.0 % LAB HEMATOLOGY METHOD 03/23/2025 4:11 AM EDT [facility] Hemoglobin Reduced, Mixed Venous, Whole Blood 36.7 % LAB HEMATOLOGY METHOD 03/23/2025 4:11 AM EDT [facility] Total Hemoglobin, Mixed Venous, Whole Blood 9.9(L) 13.7 - 17.5 g/dL LAB HEMATOLOGY METHOD 03/23/2025 4:11 AM EDT [facility] Blood Mixed venous blood specimen / Unknown Venipuncture / Unknown 03/23/2025 3:53 AM EDT 03/23/2025 4:09 AM EDT us Musa Rosado MD LAB BLOOD ORDERABLES Final R esult [facility] [address] [place] [address] * ECG Adult - POD 1 (03/23/2025 2:49 AM EDT) EKG DIAGNOSIS CLASS Abnormal MUSE ECG Ventricular Rate 76 BPM MUSE ECG Atrial Rate 76 BPM MUSE ECG MD Interval 118 ms MUSE ECG QRSD Interval 80 ms MUSE ECG QT Interval 362 ms MUSE ECG QTC Interval 407 ms MUSE ECG P Demotte 46 degrees MUSE ECG R Demotte -11 degrees MUSE ECG T Wave Demotte -15 degrees MUSE ECG Diagnosis Poor data [...] MUSE ECG Diagnosis Confirmed by Jarett Steen ([id number]) on 03/23/2025 8:12:41 AM MUSE ECG 03/23/2025 [...] Comment 03/23/2025 2:05 AM EDT [facility] Neuropsychology Division Chief ID Ayazya Ojaswi 03/23/2025 2:05 AM EDT [facility] Device ID [id number] 03/23/2025 2:05 AM EDT [facility] Specimen Type POC Arterial 03/23/2025 2:05 AM EDT [facility] Blood Arterial blood specimen / Unknown 03/23/2025 2:03 AM EDT 03/23/2025 2:05 AM EDT Musa Rosado MD LAB POINT OF CARE TE ST DOCKED DEVICE UNSOLICITED RESULTS Final Result [facility] [address] [place] [id number] * Potassium, Plasma (03/23/2025 12:14 AM EDT) Potassium, Plasma 4.4 3.6 - 4.9 mmol/L 03/23/2025 12:51 AM EDT [facility] Blood Arterial blood specimen / Unknown Arterial Puncture / Unknown 03/23/2025 12:14 AM EDT 03/23/2025 12:30 AM EDT us Musa Rosado MD LAB BLOOD ORDERABLES Final R esult [facility] [address] [place] [address] * (ABNORMAL) CBC (03/23/2025 12:13 AM EDT) WBC Count 11.73(H) 3.70 - 10.30 10*3/uL LAB HEMATOLOGY METHOD 03/23/2025 12:42 AM EDT [facility] RBC Count 3.28(L) 4.60 - 6.10 10*6/uL LAB HEMATOLOGY METHOD 03/23/2025 12:42 AM EDT [facility] HGB 10.1(L) 13.7 - 17.5 g/dL LAB HEMATOLOGY METHOD 03/23/2025 12:42 AM EDT [facility] HCT 29.6(L) 40.0 - 51.0 % LAB HEMATOLOGY METHOD 03/23/2025 12:42 AM EDT [facility] Platelet Count 138(L) 155 - 369 10*3/uL LAB HEMATOLOGY METHOD 03/23/2025 12:42 AM EDT [facility] MCV 90 79 - 98 fL LAB HEMATOLOGY METHOD 03/23/2025 12:42 AM EDT [facility] MCH 30.8 26.0 - 32.0 pg LAB HEMATOLOGY METHOD 03/23/2025 12:42 AM EDT [facility] MCHC 34.1 30.7 - 35.5 g/dL LAB HEMATOLOGY METHOD 03/23/2025 12:42 AM EDT [facility] RDW 13.7 11.5 - 14.5 % LAB HEMATOLOGY METHOD 03/23/2025 12:42 AM EDT [facility] MPV 11.3 8.8 - 12.5 fL LAB HEMATOLOGY METHOD 03/23/2025 12:42 AM EDT [facility] nRBC 0.0 <=0.0 per 100 WBCs LAB HEMATOLOGY METHOD 03/23/2025 12:42 AM EDT [facility] Blood Arterial blood specimen / Unknown Arterial Puncture / Unknown 03/23/2025 12:13 AM EDT 03/23/2025 12:32 AM EDT Musa Rosado MD LAB BLOOD ORDERABLES Final R esult Performing Organization Address City/[facility]/ZIP Co de Phone Number [facility] [address] [place] [address] * (ABNORMAL) Hematocrit (03/23/2025 12:13 AM EDT) [facility] HCT 29.6(L) 40.0 - 51.0 % LAB HEMATOLOGY METHOD 03/23/2025 12:42 AM EDT [facility] Blood Arterial blood specimen / Unknown Arterial Puncture / Unknown 03/23/2025 12:13 AM EDT 03/23/2025 12:32 AM EDT Msua Rosado MD LAB BLOOD ORDERABLES Final R esult Performing Organization Address City/[facility]/[place] [address] * (ABNORMAL) POCT glucose meter (03/23/2025 12:10 AM EDT) [facility] POCT Glucose 168(H) 74 - 99 mg/dL [...] for testing. Comment 03/23/2025 12:11 AM EDT [facility] Neuropsychology Division Chief ID AyazlizKelly 03/23/2025 12:11 AM EDT [facility] LAB Device ID [id number] 03/23/2025 12:11 AM EDT [facility] Specimen Type POC Arterial 03/23/2025 12:11 AM EDT [facility] Blood Arterial blood specimen / Unknown 03/23/2025 12:10 AM EDT 03/23/2025 12:11 AM EDT us Musa Rosado MD LAB POINT OF CARE TE ST DOCKED DEVICE UNSOLICITED RESULTS Final Result [facility] [address] [place] [address] * (ABNORMAL) Blood gas, arterial (03/23/2025 12:03 AM EDT) pH, Arterial 7.40 7.35 - 7.45 LAB HEMATOLOGY METHOD 03/23/2025 12:29 AM EDT [facility] pCO2, Arterial 38 32 - 45 mmHg LAB HEMATOLOGY METHOD 03/23/2025 12:29 AM EDT [facility] pO2, Arterial 158(H) 83 - 108 mmHg LAB HEMATOLOGY METHOD 03/23/2025 12:29 AM EDT [facility] SO2, Measured, Arterial 97 94 - 98 % LAB HEMATOLOGY METHOD 03/23/2025 12:29 AM EDT [facility] Base Excess, Arterial -0.9 -2.0 - 3.0 mmol/L LAB HEMATOLOGY METHOD 03/23/2025 12:29 AM EDT [facility] Bicarbonate, Calculated, Arterial 24 22 - 26 mmol/L LAB HEMATOLOGY METHOD 03/23/2025 12:29 AM EDT [facility] Hematocrit, Whole Blood 31.2(L) 40.0 - 51.0 % LAB HEMATOLOGY METHOD 03/23/2025 12:29 AM EDT [facility] Sodium, Whole Blood 141 136 - 145 mmol/L LAB HEMATOLOGY METHOD 03/23/2025 12:29 AM EDT [facility] Potassium, Whole Blood 4.2 3.6 - 4.9 mmol/L LAB HEMATOLOGY METHOD 03/23/2025 12:29 AM EDT [facility] Chloride, Whole Blood 110(H) 97 - 107 mmol/L LAB HEMATOLOGY METHOD 03/23/2025 12:29 AM EDT [facility] Glucose, Whole Blood 176(H) 74 - 99 mg/dL LAB HEMATOLOGY METHOD 03/23/2025 12:29 AM EDT [facility] Ionized Calcium, Whole Blood 4.4(L) 4.6 - 5.1 mg/dL LAB HEMATOLOGY METHOD 03/23/2025 12:29 AM EDT [facility] Lactate, Arterial, Whole Blood 2.5(H) 0.5 - 1.6 mmol/L LAB HEMATOLOGY METHOD 03/23/2025 12:29 AM EDT [facility] Blood Arterial blood specimen / Unknown Arterial Puncture / Unknown 03/23/2025 12:03 AM EDT 03/23/2025 12:24 AM EDT us Musa Rosado MD LAB BLOOD ORDERABLES Final R esult Performing Organization Address City/[facility]/ZIP Co de Phone Number [facility] [address] [place] [address] * (ABNORMAL) POCT glucose meter (03/22/2025 10:59 [...] Comment 03/22/2025 11:00 PM EDT [facility] Neuropsychology Division Chief ID Piya, Ojaswi 03/22/2025 11:00 PM EDT [facility] Device ID [id number] 03/22/2025 11:00 PM EDT [facility] Specimen Type POC Arterial 03/22/2025 11:00 PM EDT [facility] Blood Arterial blood specimen / Unknown 03/22/2025 10:59 PM EDT 03/22/2025 11:00 PM EDT us Musa Rosado MD LAB POINT OF CARE TE ST DOCKED DEVICE UNSOLICITED RESULTS Final Result Performing Organization Address City/[facility]/ZIP Co de Phone Number [facility] [address] [place] [address] * (ABNORMAL) POCT glucose meter (03/22/2025 10:40 PM EDT) [facility] POCT Glucose 184(H) 74 - 99 mg/dL [...] Comment 03/22/2025 10:41 PM EDT [facility] Neuropsychology Division Chief ID Kelly Haynes 03/22/2025 10:41 PM EDT [facility] Device ID [id number] 03/22/2025 10:41 PM EDT [facility] Specimen Type POC Arterial 03/22/2025 10:41 PM EDT [facility] Blood Arterial blood specimen / Unknown 03/22/2025 10:40 PM EDT 03/22/2025 10:41 PM EDT Musa Rosado MD LAB POINT OF CARE TE ST DOCKED DEVICE UNSOLICITED RESULTS Final Result Performing Organization Address City/State/[facility] Co de Phone Number [facility] [address] [place] [address] * (ABNORMAL) POCT glucose meter (03/22/2025 8:21 PM EDT) [facility] POCT Glucose 207(H) 74 - 99 mg/dL [...] for testing. Comment 03/22/2025 8:22 PM EDT [facility] Neuropsychology Division Chief ID Kelly Haynes 03/22/2025 8:22 PM EDT [facility] Device ID [id number] 03/22/2025 8:22 PM EDT [facility] Specimen Type POC Arterial 03/22/2025 8:22 PM EDT [facility] Blood Arterial blood specimen / Unknown 03/22/2025 8:21 PM EDT 03/22/2025 8:22 PM EDT us Musa Rosado MD LAB POINT OF CARE TE ST DOCKED DEVICE UNSOLICITED RESULTS Final Result [facility] [address] [place] [address] * (ABNORMAL) Blood gas, arterial (03/22/2025 8:17 PM EDT) pH, Arterial 7.37 7.35 - 7.45 LAB HEMATOLOGY METHOD 03/22/2025 8:29 PM EDT [facility] pCO2, Arterial 42 32 - 45 mmHg LAB HEMATOLOGY METHOD 03/22/2025 8:29 PM EDT [facility] pO2, Arterial 89 83 - 108 mmHg LAB HEMATOLOGY METHOD 03/22/2025 8:29 PM EDT [facility] SO2, Measured, Arterial 95 94 - 98 % LAB HEMATOLOGY METHOD 03/22/2025 8:29 PM EDT [facility] Base Excess, Arterial -0.9 -2.0 - 3.0 mmol/L LAB HEMATOLOGY METHOD 03/22/2025 8:29 PM EDT [facility] Bicarbonate, Calculated, Arterial 24 22 - 26 mmol/L LAB HEMATOLOGY METHOD 03/22/2025 8:29 PM EDT [facility] Hematocrit, Whole Blood 31.8(L) 40.0 - 51.0 % LAB HEMATOLOGY METHOD 03/22/2025 8:29 PM EDT [facility] Sodium, Whole Blood 141 136 - 145 mmol/L LAB HEMATOLOGY METHOD 03/22/2025 8:29 PM EDT [facility] Potassium, Whole Blood 4.1 3.6 - 4.9 mmol/L LAB HEMATOLOGY METHOD 03/22/2025 8:29 PM EDT [facility] Chloride, Whole Blood 110(H) 97 - 107 mmol/L LAB HEMATOLOGY METHOD 03/22/2025 8:29 PM EDT [facility] Glucose, Whole Blood 217(H) 74 - 99 mg/dL LAB HEMATOLOGY METHOD 03/22/2025 8:29 PM EDT [facility] Ionized Calcium, Whole Blood 4.4(L) 4.6 - 5.1 mg/dL LAB HEMATOLOGY METHOD 03/22/2025 8:29 PM EDT [facility] Lactate, Arterial, Whole Blood 2.1(H) 0.5 - 1.6 mmol/L LAB HEMATOLOGY METHOD 03/22/2025 8:29 PM EDT [facility] Blood Arterial blood specimen / Unknown Arterial Puncture / Unknown 03/22/2025 8:17 PM EDT 03/22/2025 8:27 PM EDT us Musa Rosado MD LAB BLOOD ORDERABLES Final R esult Performing Organization Address [facility] de Phone Number [facility] [address] [place] [address] * (ABNORMAL) Phosphorus (03/22/2025 8:14 PM EDT) Phosphorus, Plasma 1.6(L) 2.5 - 4.5 mg/dL 03/22/2025 8:55 PM EDT [facility] Blood Arterial blood specimen / Unknown Arterial Puncture / Unknown 03/22/2025 8:14 PM EDT 03/22/2025 8:28 PM EDT us Musa Rosado MD LAB BLOOD ORDERABLES Final R esult Performing Organization Address [facility] Co de Phone Number [facility] [address] [place] [address] * (ABNORMAL) Hematocrit (03/22/2025 8:14 PM EDT) HCT 30.1(L) 40.0 - 51.0 % LAB HEMATOLOGY METHOD 03/22/2025 8:35 PM EDT [facility] Blood Arterial blood specimen / Unknown Arterial Puncture / Unknown 03/22/2025 8:14 PM EDT 03/22/2025 8:28 PM EDT us Musa Rosado MD LAB BLOOD ORDERABLES Final R esult Performing Organization Address City/[facility]/ZIP Co de Phone Number [facility] [address] [place] [address] * (ABNORMAL) Hemoglobin (03/22/2025 8:14 PM EDT) HGB 10.4(L) 13.7 - 17.5 g/dL LAB HEMATOLOGY METHOD 03/22/2025 8:35 PM EDT [facility] Blood Arterial blood specimen / Unknown Arterial Puncture / Unknown 03/22/2025 8:14 PM EDT 03/22/2025 8:28 PM EDT Musa Rosado MD LAB BLOOD ORDERABLES Final R esult Performing Organization Address City/[facility]/ZIP Co de Phone Number [facility] [address] [place] [address] * Potassium, Plasma (03/22/2025 8:14 PM EDT) Pathologist [facility] Potassium, Plasma 4.2 3.6 - 4.9 mmol/L 03/22/2025 8:55 PM EDT [facility] Blood Arterial blood specimen / Unknown Arterial Puncture / Unknown 03/22/2025 8:14 PM EDT 03/22/2025 8:28 PM EDT Musa Rosado MD LAB BLOOD ORDERABLES Final R esult Performing Organization Address City/[facility]/ZIP Co de Phone Number [facility] [address] [place] [address] * (ABNORMAL) Blood gas panel, arterial (03/22/2025 5:44 PM EDT) pH, Arterial 7.36 7.35 - 7.45 LAB HEMATOLOGY METHOD 03/22/2025 5:55 PM EDT [facility] pCO2, Arterial 41 32 - 45 mmHg LAB HEMATOLOGY METHOD 03/22/2025 5:55 PM EDT [facility] pO2, Arterial 107 83 - 108 mmHg LAB HEMATOLOGY METHOD 03/22/2025 5:55 PM EDT [facility] SO2, Measured, Arterial 98 94 - 98 % LAB HEMATOLOGY METHOD 03/22/2025 5:55 PM EDT [facility] Base Excess, Arterial -2.2(L) -2.0 - 3.0 mmol/L LAB HEMATOLOGY METHOD 03/22/2025 5:55 PM EDT [facility] Bicarbonate, Calculated, Arterial 23 22 - 26 mmol/L LAB HEMATOLOGY METHOD 03/22/2025 5:55 PM EDT [facility] Hematocrit, Whole Blood 33.7(L) 40.0 - 51.0 % LAB HEMATOLOGY METHOD 03/22/2025 5:55 PM EDT [facility] Sodium, Whole Blood 142 136 - 145 mmol/L LAB HEMATOLOGY METHOD 03/22/2025 5:55 PM EDT [facility] Potassium, Whole Blood 4.1 3.6 - 4.9 mmol/L LAB HEMATOLOGY METHOD 03/22/2025 5:55 PM EDT [facility] Chloride, Whole Blood 111(H) 97 - 107 mmol/L LAB HEMATOLOGY METHOD 03/22/2025 5:55 PM EDT [facility] Glucose, Whole Blood 206(H) 74 - 99 mg/dL LAB HEMATOLOGY METHOD 03/22/2025 5:55 PM EDT [facility] Ionized Calcium, Whole Blood 4.3(L) 4.6 - 5.1 mg/dL LAB HEMATOLOGY METHOD 03/22/2025 5:55 PM EDT [facility] Lactate, Arterial, Whole Blood 2.3(H) 0.5 - 1.6 mmol/L LAB HEMATOLOGY METHOD 03/22/2025 5:55 PM EDT [facility] Blood Arterial blood specimen / Unknown Arterial Puncture / Unknown 03/22/2025 5:44 PM EDT 03/22/2025 5:53 PM EDT us Musa Rosado MD LAB BLOOD ORDERABLES Final R esult [facility] [address] [place] [address] * XR Chest 1 View (03/22/2025 4:46 [...] above the freddie. Right internal jugular approach Climax-Brea catheter with tip over the proximal right pulmonary artery. Mediastinal drain and bilateral chest tubes in place. Low lung volumes. Pulmonary vascular congestion. No pneumothorax. Interval median sternotomy and CABG. Procedure Note Carmencita Aponte MD - 03/22/2025 CLINICAL INDICATION: Post-Op Cardiac Surgery TECHNIQUE: XR CHEST 1 VIEW COMPARISON: 03/21/2025 FINDINGS: Endotracheal tube tip 6.5 cm above the freddie. Right internal jugularapproach Climax-Brea catheter with tip over the proximal right [...] QTC Interval 436 ms MUSE ECG P Demotte 66 degrees MUSE ECG R Demotte 26 degrees MUSE ECG T Wave Demotte 52 degrees MUSE ECG Diagnosis Normal sinus rhythm MUSE ECG Diagnosis ST elevation, consider early repolarization , pericarditis, or injury MUSE ECG Diagnosis Need clinical information and correlation MUSE ECG Diagnosis MUSE ECG Diagnosis Confirmed by Jarett Steen ([id number]) on 03/22/2025 7:45:24 PM MUSE ECG 03/22/2025 4:10 PM EDT 03/22/2025 7:45 PM EDT us Musa Rosado MD ECG ORDERABLES Final Result MUSE ECG * (ABNORMAL) Blood gas, arterial - Post extubation (03/22/2025 3:52 PM EDT) pH, Arterial 7.35 7.35 - 7.45 LAB HEMATOLOGY METHOD 03/22/2025 4:33 PM EDT [facility] pCO2, Arterial 44 32 - 45 mmHg LAB HEMATOLOGY METHOD 03/22/2025 4:33 PM EDT [facility] pO2, Arterial 127(H) 83 - 108 mmHg LAB HEMATOLOGY METHOD 03/22/2025 4:33 PM EDT [facility] SO2, Measured, Arterial 99(H) 94 - 98 % LAB HEMATOLOGY METHOD 03/22/2025 4:33 PM EDT [facility] Base Excess, Arterial -1.9 -2.0 - 3.0 mmol/L LAB HEMATOLOGY METHOD 03/22/2025 4:33 PM EDT [facility] Bicarbonate, Calculated, Arterial 24 22 - 26 mmol/L LAB HEMATOLOGY METHOD 03/22/2025 4:33 PM EDT [facility] Hematocrit, Whole Blood 35.2(L) 40.0 - 51.0 % LAB HEMATOLOGY METHOD 03/22/2025 4:33 PM EDT [facility] Sodium, Whole Blood 142 136 - 145 mmol/L LAB HEMATOLOGY METHOD 03/22/2025 4:33 PM EDT [facility] Potassium, Whole Blood 3.8 3.6 - 4.9 mmol/L LAB HEMATOLOGY METHOD 03/22/2025 4:33 PM EDT [facility] Chloride, Whole Blood 112(H) 97 - 107 mmol/L LAB HEMATOLOGY METHOD 03/22/2025 4:33 PM EDT [facility] Glucose, Whole Blood 184(H) 74 - 99 mg/dL LAB HEMATOLOGY METHOD 03/22/2025 4:33 PM EDT [facility] Ionized Calcium, Whole Blood 4.4(L) 4.6 - 5.1 mg/dL LAB HEMATOLOGY METHOD 03/22/2025 4:33 PM EDT [facility] Lactate, Arterial, Whole Blood 2.6(H) 0.5 - 1.6 mmol/L LAB HEMATOLOGY METHOD 03/22/2025 4:33 PM EDT [facility] Blood Arterial blood specimen / Unknown Arterial Puncture / Unknown 03/22/2025 3:52 PM EDT 03/22/2025 4:31 PM EDT us Musa Rosado MD LAB BLOOD ORDERABLES Final R esult [facility] [address] [place] [address] * Denise auris Surveillance by PCR (03/22/2025 3:52 PM EDT) Denise auris PCR Result Not Detected Not Detected 03/23/2025 12:49 PM EDT [facility] Swab (Axilla and Groin) Non-blood Collection / Unknown 03/22/2025 3:52 PM EDT 03/22/2025 4:37 PM EDT Narrative [facility] - 03/23/2025 12:49 PM EDT This PCR assay was developed and its performance characteristics determined by [facility] as appropriate for clinical purposes. This assay has not been cleared or approved by the FDA, but is performed in a CLIA regulated laboratory that is qualified to perform high-complexity testing. Musa Rosado MD LAB MICROBIOLOGY - GENERAL O RDERABLES Final Result Performing Organization Address [facility] [place] [address] * Multi Drug Resistance Test (03/22/2025 3:52 PM EDT) Culture No growth at day 1 03/24/2025 7:31 AM EDT [facility] Swab (Nares and Lisa Rectal) Non-blood Collection / Unknown 03/22/2025 3:52 PM EDT 03/22/2025 4:37 PM EDT Narrative [facility] - 03/24/2025 7:31 AM EDT This test was developed and its performance characteristics determined by the [facility]. Although the media is FDA-approved, it is not FDA-approved for all specimen types submitted. The FDA has determined that such clearance or approval is not necessary. This test is used for surveillance purposes. It should not be regarded as investigational or for research. The [facility] is certified under the Clinical Laboratory Improvement Amendments of 1988 (CLIA-88) as qualified to perform high complexity clinical laboratory testing. Musa Rosado MD LAB MICROBIOLOGY - GENERAL O RDERABLES Final Result Performing Organization Address City/[facility]/ZIP Co de Phone Number [address] [address] * APTT (03/22/2025 3:52 PM EDT) aPTT 28 25 - 35 sec LAB COAGULATION METHOD 03/22/2025 5:08 PM EDT [facility] Blood Venous blood specimen / Unknown Venipuncture / Unknown 03/22/2025 3:52 PM EDT 03/22/2025 4:45 PM EDT Musa Rosado MD LAB BLOOD ORDERABLES Final R esult Performing Organization Address City/[facility]/ZIP Co de Phone Number [facility] [address] [place] [address] * (ABNORMAL) Protime-INR (03/22/2025 3:52 PM EDT) Prothrombin Time 17.0(H) 12.0 - 14.3 sec LAB COAGULATION METHOD 03/22/2025 5:08 PM EDT [facility] INR 1.4(H) 0.9 - 1.1 LAB COAGULATION METHOD 03/22/2025 5:08 PM EDT [facility] Blood Venous blood specimen / Unknown Venipuncture / Unknown 03/22/2025 3:52 PM EDT 03/22/2025 4:45 PM EDT Narrative [facility] - 03/22/2025 5:08 PM EDT OPTIMAL INR RANGES FOR PATIENT ON ORAL ANTICOAGULANT THERAPY Prevention of venous thromboembolism INR 2.0 to 3.0 In patients with heart disease: Atrial fibrillation INR 2.0 to 3.0 Valvular heart disease INR 2.0 to 3.0 Tissue heart valves INR 2.0 to 3.0 Mechanical prosthetic valves INR 2.5 to 3.5 Prevention of recurrent DC INR 2.5 to 3.5 us Musa Rosado MD LAB BLOOD ORDERABLES Final R esult [facility] [address] [place] [address] * (ABNORMAL) Phosphorus (03/22/2025 3:52 PM EDT) Phosphorus, Plasma 1.0(LL) 2.5 - 4.5 mg/dL 03/22/2025 5:13 PM EDT [facility] Blood Venous blood specimen / Unknown Venipuncture / Unknown 03/22/2025 3:52 PM EDT 03/22/2025 4:45 PM EDT us Musa Rosado MD LAB BLOOD ORDERABLES Final R esult Performing Organization Address [facility] Co de Phone Number [facility] [address] [place] [address] * (ABNORMAL) Magnesium (03/22/2025 3:52 PM EDT) Magnesium, Plasma 3.1(H) 1.9 - 2.4 mg/dL 03/22/2025 5:13 PM EDT [facility] Blood Venous blood specimen / Unknown Venipuncture / Unknown 03/22/2025 3:52 PM EDT 03/22/2025 4:45 PM EDT Musa Rosado MD LAB BLOOD ORDERABLES Final R esult Performing Organization Address [facility] de Phone Number [facility] [address] [place] [address] * (ABNORMAL) Basic metabolic panel (03/22/2025 3:52 PM EDT) Glucose, Plasma 188(H) 74 - 99 mg/dL 03/22/2025 5:13 PM EDT [facility] BUN, Plasma 17 7 - 21 mg/dL 03/22/2025 5:13 PM EDT [facility] Creatinine, Plasma 1.19 0.70 - 1.20 mg/dL 03/22/2025 5:13 PM EDT [facility] BUN/Creatinine Ratio 14 03/22/2025 5:13 PM EDT [facility] Sodium, Plasma 142 136 - 145 mmol/L 03/22/2025 5:13 PM EDT [facility] Potassium, Plasma 4.1 3.6 - 4.9 mmol/L 03/22/2025 5:13 PM EDT [facility] Chloride, Plasma 111(H) 97 - 107 mmol/L 03/22/2025 5:13 PM EDT [facility] CO2, Plasma 21(L) 22 - 29 mmol/L 03/22/2025 5:13 PM EDT [facility] Anion Gap 10 6 - 16 mmol/L 03/22/2025 5:13 PM EDT [facility] Total Calcium, Plasma 7.7(L) 8.9 - 10.2 mg/dL 03/22/2025 5:13 PM EDT [facility] eGFRcr 77.7 mL/min/1.7 3m*2 03/22/2025 5:13 PM EDT [facility] Comment:Reported eGFRcr in m L/min/1.73m2 is based the CKD-EPI 2020 equation that does not use a race coefficient. Blood Venous blood specimen / Unknown Venipuncture / Unknown 03/22/2025 3:52 PM EDT 03/22/2025 4:45 PM EDT us Musa Rosado MD LAB BLOOD ORDERABLES Final R esult [facility] [address] [place] [address] * (ABNORMAL) CBC (03/22/2025 3:52 PM EDT) WBC Count 16.63(H) 3.70 - 10.30 10*3/uL LAB HEMATOLOGY METHOD 03/22/2025 4:48 PM EDT [facility] RBC Count 3.77(L) 4.60 - 6.10 10*6/uL LAB HEMATOLOGY METHOD 03/22/2025 4:48 PM EDT [facility] HGB 11.4(L) 13.7 - 17.5 g/dL LAB HEMATOLOGY METHOD 03/22/2025 4:48 PM EDT [facility] HCT 33.7(L) 40.0 - 51.0 % LAB HEMATOLOGY METHOD 03/22/2025 4:48 PM EDT [facility] Platelet Count 159 155 - 369 10*3/uL LAB HEMATOLOGY METHOD 03/22/2025 4:48 PM EDT [facility] MCV 89 79 - 98 fL LAB HEMATOLOGY METHOD 03/22/2025 4:48 PM EDT [facility] MCH 30.2 26.0 - 32.0 pg LAB HEMATOLOGY METHOD 03/22/2025 4:48 PM EDT [facility] MCHC 33.8 30.7 - 35.5 g/dL LAB HEMATOLOGY METHOD 03/22/2025 4:48 PM EDT [facility] RDW 13.4 11.5 - 14.5 % LAB HEMATOLOGY METHOD 03/22/2025 4:48 PM EDT [facility] MPV 11.0 8.8 - 12.5 fL LAB HEMATOLOGY METHOD 03/22/2025 4:48 PM EDT [facility] nRBC 0.0 <=0.0 per 100 WBCs LAB HEMATOLOGY METHOD 03/22/2025 4:48 PM EDT [facility] Blood Venous blood specimen / Unknown Venipuncture / Unknown 03/22/2025 3:52 PM EDT 03/22/2025 4:42 PM EDT us Musa Rosado MD LAB BLOOD ORDERABLES Final R esult [facility] [address] [place] [address] * (ABNORMAL) POCT arterial blood gas gem (03/22/2025 3:29 PM EDT) pH, Arterial 7.36 7.35 - 7.45 03/22/2025 3:41 PM EDT [facility] pCO2, Arterial 42 32 - 45 mm Hg 03/22/2025 3:41 PM EDT [facility] pO2, Arterial 150(H) 83 - 108 mm Hg 03/22/2025 3:41 PM EDT [facility] SO2, Arterial 98 94 - 98 % 03/22/2025 3:41 PM EDT [facility] Base Excess, Arterial -1.7 -2 - 3 mmol/L 03/22/2025 3:41 PM EDT [facility] HCO3, Arterial 23.7 22 - 26 mmol/L 03/22/2025 3:41 PM EDT [facility] Total Hemoglobin, Arterial, Whole Blood 11.2(L) 13.7 - 17.5 g/dL 03/22/2025 3:41 PM EDT [facility] Hematocrit, Arterial 34.0(L) 40 - 51.0 % 03/22/2025 3:41 PM EDT [facility] Sodium, Arterial 141 136 - 145 mmol/L 03/22/2025 3:41 PM EDT [facility] Potassium, Arterial 3.8 3.6 - 4.9 mmol/L 03/22/2025 3:41 PM EDT [facility] Chloride, Whole Blood 109(H) 97 - 107 mmol/L 03/22/2025 3:41 PM EDT [facility] Glucose, Arterial 192(H) 74 - 99 mg/dL 03/22/2025 3:41 PM EDT [facility] Ionized Calcium, Arterial 4.6 4.6 - 5.1 mg/dL 03/22/2025 3:41 PM EDT [facility] Lactate, Arterial 2.0(H) 0.5 - 1.6 mmol/L 03/22/2025 3:41 PM EDT [facility] Body Temperature 37.0 Celsius 03/22/2025 3:41 PM EDT [facility] pH, Temp Corrected, Arterial 7.36 7.35 - 7.45 03/22/2025 3:41 PM EDT [facility] pCO2, Temp Corrected, Arterial 42 32 - 45 mm Hg 03/22/2025 3:41 PM EDT [facility] pO2, Temp Corrected, Arterial 150(H) 83 - 108 mm Hg 03/22/2025 3:41 PM EDT [facility] Neuropsychology Division Chief ID Ludin Aguiar 03/22/2025 3:41 PM EDT [facility] Blood, Arterial Whole blood specimen / Unknown 03/22/2025 3:29 PM EDT 03/22/2025 3:41 PM EDT us Musa Rosado MD LAB POINT OF CARE TE ST DOCKED DEVICE UNSOLICITED RESULTS Final Result [facility] [address] [place] [address] * (ABNORMAL) POCT arterial blood gas gem (03/22/2025 2:44 PM EDT) pH, Arterial 7.33(L) 7.35 - 7.45 03/22/2025 2:51 PM EDT [facility] pCO2, Arterial 46(H) 32 - 45 mm Hg 03/22/2025 2:51 PM EDT [facility] pO2, Arterial 182(H) 83 - 108 mm Hg 03/22/2025 2:51 PM T [facility] SO2, Arterial 97 94 - 98 % 03/22/2025 2:51 PM T [facility] Base Excess, Arterial -1.8 -2 - 3 mmol/L 03/22/2025 2:51 PM T [facility] HCO3, Arterial 24.3 22 - 26 mmol/L 03/22/2025 2:51 PM T [facility] Total Hemoglobin, Arterial, Whole Blood 10.8(L) 13.7 - 17.5 g/dL 03/22/2025 2:51 PM T [facility] Hematocrit, Arterial 32.0(L) 40 - 51.0 % 03/22/2025 2:51 PM [facility] Sodium, Arterial 141 136 - 145 mmol/L 03/22/2025 2:51 PM [facility] Potassium, Arterial 3.8 3.6 - 4.9 mmol/L 03/22/2025 2:51 PM [facility] Chloride, Whole Blood 111(H) 97 - 107 mmol/L 03/22/2025 2:51 PM [facility] Glucose, Arterial 187(H) 74 - 99 mg/dL 03/22/2025 2:51 PM [facility] Ionized Calcium, Arterial 4.7 4.6 - 5.1 mg/dL 03/22/2025 2:51 PM T [facility] Lactate, Arterial 1.8(H) 0.5 - 1.6 mmol/L 03/22/2025 2:51 PM T [facility] Body Temperature 37.0 Celsius 03/22/2025 2:51 PM T [facility] pH, Temp Corrected, Arterial 7.33(L) 7.35 - 7.45 03/22/2025 2:51 PM [facility] pCO2, Temp Corrected, Arterial 46(H) 32 - 45 mm Hg 03/22/2025 2:51 PM T [facility] pO2, Temp Corrected, Arterial 182(H) 83 - 108 mm Hg 03/22/2025 2:51 PM EDT [facility] Neuropsychology Division Chief ID Ludin Aguiar 03/22/2025 2:51 PM EDT [facility] Blood, Arterial Whole blood specimen / Unknown 03/22/2025 2:44 PM EDT 03/22/2025 2:51 PM EDT us Musa Rosado MD LAB POINT OF CARE TE ST DOCKED DEVICE UNSOLICITED RESULTS Final Result [facility] [address] [place] [address] * QPLUS (03/22/2025 2:24 PM EDT) Clot Time 125 104 - 166 Seconds 03/22/2025 2:38 PM EDT [facility] Clot Time Ratio 1.0 0.8 - [...] - 29.8 hectoPascals 03/22/2025 2:38 PM EDT [facility] Fibrinogen Contribution to Clot Stiffness 1.8 1.0 - 3.7 hectoPascals 03/22/2025 2:38 PM EDT [facility] Heparinase Clot Time 126 103 - 153 Seconds 03/22/2025 2:38 PM EDT [facility] Neuropsychology Division Chief ID Ludin Aguiar 03/22/2025 2:38 PM EDT [facility] Device ID [id number] 03/22/2025 2:38 PM EDT [facility] Whole Blood 03/22/2025 2:24 PM EDT 03/22/2025 2:38 PM EDT Musa Rosado MD LAB POINT OF CARE TE ST DOCKED DEVICE UNSOLICITED RESULTS Final Result [facility] [address] [place] [address] * (ABNORMAL) POCT arterial blood gas gem (03/22/2025 2:10 PM EDT) pH, Arterial 7.34(L) 7.35 - 7.45 03/22/2025 2:13 PM EDT [facility] pCO2, Arterial 43 32 - 45 mm Hg 03/22/2025 2:13 PM EDT [facility] pO2, Arterial 96 83 - 108 mm Hg 03/22/2025 2:13 PM EDT [facility] SO2, Arterial 97 94 - 98 % 03/22/2025 2:13 PM EDT [facility] Base Excess, Arterial -2.5(L) -2 - 3 mmol/L 03/22/2025 2:13 PM EDT [facility] HCO3, Arterial 23.2 22 - 26 mmol/L 03/22/2025 2:13 PM EDT [facility] Total Hemoglobin, Arterial, Whole Blood 9.4(L) 13.7 - 17.5 g/dL 03/22/2025 2:13 PM EDT [facility] Hematocrit, Arterial 28.0(L) 40 - 51.0 % 03/22/2025 2:13 PM EDT [facility] Sodium, Arterial 140 136 - 145 mmol/L 03/22/2025 2:13 PM EDT [facility] Potassium, Arterial 3.7 3.6 - 4.9 mmol/L 03/22/2025 2:13 PM EDT [facility] Chloride, Whole Blood 110(H) 97 - 107 mmol/L 03/22/2025 2:13 PM EDT [facility] Glucose, Arterial 212(H) 74 - 99 mg/dL 03/22/2025 2:13 PM EDT [facility] Ionized Calcium, Arterial 4.8 4.6 - 5.1 mg/dL 03/22/2025 2:13 PM EDT [facility] Lactate, Arterial 2.5(H) 0.5 - 1.6 mmol/L 03/22/2025 2:13 PM EDT [facility] Body Temperature 37.0 Celsius 03/22/2025 2:13 PM EDT [facility] pH, Temp Corrected, Arterial 7.34(L) 7.35 - 7.45 03/22/2025 2:13 PM EDT [facility] pCO2, Temp Corrected, Arterial 43 32 - 45 mm Hg 03/22/2025 2:13 PM EDT [facility] pO2, Temp Corrected, Arterial 96 83 - 108 mm Hg 03/22/2025 2:13 PM EDT [facility] Neuropsychology Division Chief ID Temo Mendoza 03/22/2025 2:13 PM EDT [facility] Blood, Arterial Whole blood specimen / Unknown 03/22/2025 2:10 PM EDT 03/22/2025 2:13 PM EDT us Musa Rosado MD LAB POINT OF CARE TE ST DOCKED DEVICE UNSOLICITED RESULTS Final Result Performing Organization Address [facility] Co de Phone Number [facility] [address] [place] [address] * POCT ACT (03/22/2025 2:04 PM EDT) [facility] ACT+ (HIGH RANGE) 115 68 - 600 Seconds 03/22/2025 2:10 PM EDT [facility] Neuropsychology Division Chief ID Selene Cardona 03/22/2025 2:10 PM EDT [facility] ACT Device ID [id number] 03/22/2025 2:10 PM EDT [facility] Comment 03/22/2025 2:10 PM EDT [facility] Comment: ACT performed by staff at [...] UNSOLICITED RESULTS Final Result Performing Organization Address [facility] Co de Phone Number [facility] [address] [place] [address] * (ABNORMAL) POCT arterial blood gas gem (03/22/2025 1:29 PM EDT) pH, Arterial 7.33(L) 7.35 - 7.45 03/22/2025 1:31 PM EDT [facility] pCO2, Arterial 42 32 - 45 mm Hg 03/22/2025 1:31 PM EDT [facility] pO2, Arterial 371(H) 83 - 108 mm Hg 03/22/2025 1:31 PM EDT [facility] SO2, Arterial 98 94 - 98 % 03/22/2025 1:31 PM EDT [facility] Base Excess, Arterial -3.6(L) -2 - 3 mmol/L 03/22/2025 1:31 PM EDT [facility] HCO3, Arterial 22.1 22 - 26 mmol/L 03/22/2025 1:31 PM EDT [facility] Total Hemoglobin, Arterial, Whole Blood 9.0(L) 13.7 - 17.5 g/dL 03/22/2025 1:31 PM EDT [facility] Hematocrit, Arterial 27.0(L) 40 - 51.0 % 03/22/2025 1:31 PM EDT [facility] Sodium, Arterial 138 136 - 145 mmol/L 03/22/2025 1:31 PM EDT [facility] Potassium, Arterial 4.2 3.6 - 4.9 mmol/L 03/22/2025 1:31 PM EDT [facility] Chloride, Whole Blood 109(H) 97 - 107 mmol/L 03/22/2025 1:31 PM EDT [facility] Glucose, Arterial 272(H) 74 - 99 mg/dL 03/22/2025 1:31 PM EDT [facility] Ionized Calcium, Arterial 4.9 4.6 - 5.1 mg/dL 03/22/2025 1:31 PM EDT [facility] Lactate, Arterial 2.6(H) 0.5 - 1.6 mmol/L 03/22/2025 1:31 PM EDT [facility] Body Temperature 37.0 Celsius 03/22/2025 1:31 PM EDT [facility] pH, Temp Corrected, Arterial 7.33(L) 7.35 - 7.45 03/22/2025 1:31 PM EDT [facility] pCO2, Temp Corrected, Arterial 42 32 - 45 mm Hg 03/22/2025 1:31 PM EDT [facility] pO2, Temp Corrected, Arterial 371(H) 83 - 108 mm Hg 03/22/2025 1:31 PM EDT [facility] Neuropsychology Division Chief ID Shelley Bridges 03/22/2025 1:31 PM EDT [facility] Blood, Arterial Whole blood specimen / Unknown 03/22/2025 1:29 PM EDT 03/22/2025 1:31 PM EDT us Musa Rosado MD LAB POINT OF CARE TE ST DOCKED DEVICE UNSOLICITED RESULTS Final Result Performing Organization Address City/[facility] Co de Phone Number [facility] [address] [place] [address] * POCT ACT (03/22/2025 1:25 PM EDT) [facility] Signature ACT+ (HIGH RANGE) 489 68 - 600 Seconds 03/22/2025 1:34 PM EDT [facility] Neuropsychology Division Chief ID Shelley Bridges 03/22/2025 1:34 PM EDT [facility] ACT Device ID [id number] 03/22/2025 1:34 PM EDT [facility] Comment 03/22/2025 1:34 PM EDT [facility] Comment: ACT performed by staff at [...] 1:25 PM EDT 03/22/2025 1:34 PM EDT Musa Rosado MD LAB POINT OF CARE TE ST DOCKED DEVICE UNSOLICITED RESULTS Final Result Performing Organization Address [facility] Co de Phone Number [facility] [address] [place] [place] [id number] [place] [address] LAB [address] [place] [address] * (ABNORMAL) POCT arterial blood gas gem (03/22/2025 12:55 PM EDT) pH, Arterial 7.36 7.35 - 7.45 03/22/2025 12:56 PM EDT [facility] pCO2, Arterial 40 32 - 45 mm Hg 03/22/2025 12:56 PM EDT [facility] pO2, Arterial 179(H) 83 - 108 mm Hg 03/22/2025 12:56 PM EDT [facility] SO2, Arterial 97 94 - 98 % 03/22/2025 12:56 PM EDT [facility] Base Excess, Arterial -2.6(L) -2 - 3 mmol/L 03/22/2025 12:56 PM EDT [facility] HCO3, Arterial 22.6 22 - 26 mmol/L 03/22/2025 12:56 PM EDT [facility] Total Hemoglobin, Arterial, Whole Blood 9.3(L) 13.7 - 17.5 g/dL 03/22/2025 12:56 PM EDT [facility] Hematocrit, Arterial 28.0(L) 40 - 51.0 % 03/22/2025 12:56 PM EDT [facility] Sodium, Arterial 139 136 - 145 mmol/L 03/22/2025 12:56 PM EDT [facility] Potassium, Arterial 4.0 3.6 - 4.9 mmol/L 03/22/2025 12:56 PM T [facility] Chloride, Whole Blood 108(H) 97 - 107 mmol/L 03/22/2025 12:56 PM EDT [facility] Glucose, Arterial 245(H) 74 - 99 mg/dL 03/22/2025 12:56 PM EDT [facility] Ionized Calcium, Arterial 4.8 4.6 - 5.1 mg/dL 03/22/2025 12:56 PM T [facility] Lactate, Arterial 2.4(H) 0.5 - 1.6 mmol/L 03/22/2025 12:56 PM EDT [facility] Body Temperature 37.0 Celsius 03/22/2025 12:56 PM EDT [facility] pH, Temp Corrected, Arterial 7.36 7.35 - 7.45 03/22/2025 12:56 PM EDT [facility] pCO2, Temp Corrected, Arterial 40 32 - 45 mm Hg 03/22/2025 12:56 PM EDT [facility] pO2, Temp Corrected, Arterial 179(H) 83 - 108 mm Hg 03/22/2025 12:56 PM EDT [facility] Neuropsychology Division Chief ID Selene Cardona 03/22/2025 12:56 PM EDT [facility] Blood, Arterial Whole blood specimen / Unknown 03/22/2025 12:55 PM EDT 03/22/2025 12:56 PM EDT Musa Rosado MD LAB POINT OF CARE TE ST DOCKED DEVICE UNSOLICITED RESULTS Final Result Performing Organization Address City/[facility]/ZIP Co de Phone Number [facility] [address] [place] [address] * POCT ACT (03/22/2025 12:51 PM EDT) ACT+ (HIGH RANGE) 593 68 - 600 Seconds 03/22/2025 1:02 PM EDT [facility] Neuropsychology Division Chief ID Selene Cardona 03/22/2025 1:02 PM EDT [facility] ACT Device ID [id number] 03/22/2025 1:02 PM EDT [facility] Comment 03/22/2025 1:02 PM EDT [facility] Comment: ACT performed by staff at [...] 12:51 PM EDT 03/22/2025 1:02 PM EDT us Musa Rosado MD LAB POINT OF CARE TE ST DOCKED DEVICE UNSOLICITED RESULTS Final Result Performing Organization Address [facility] Co de Phone Number [facility] [address] LAB [address] [place] [address] * (ABNORMAL) POCT arterial blood gas gem (03/22/2025 12:25 PM EDT) pH, Arterial 7.44 7.35 - 7.45 03/22/2025 12:26 PM EDT [facility] pCO2, Arterial 34 32 - 45 mm Hg 03/22/2025 12:26 PM EDT [facility] pO2, Arterial 296(H) 83 - 108 mm Hg 03/22/2025 12:26 PM EDT [facility] SO2, Arterial 97 94 - 98 % 03/22/2025 12:26 PM EDT [facility] Base Excess, Arterial -0.7 -2 - 3 mmol/L 03/22/2025 12:26 PM [facility] HCO3, Arterial 23.1 22 - 26 mmol/L 03/22/2025 12:26 PM T [facility] Total Hemoglobin, Arterial, Whole Blood 9.7(L) 13.7 - 17.5 g/dL 03/22/2025 12:26 [facility] Hematocrit, Arterial 29.0(L) 40 - 51.0 % 03/22/2025 12:26 [facility] Sodium, Arterial 138 136 - 145 mmol/L 03/22/2025 12:26 PM [facility] Potassium, Arterial 3.4(L) 3.6 - 4.9 mmol/L 03/22/2025 12:26 PM [facility] Chloride, Whole Blood 108(H) 97 - 107 mmol/L 03/22/2025 12:26 PM [facility] Glucose, Arterial 266(H) 74 - 99 mg/dL 03/22/2025 12: [facility] Ionized Calcium, Arterial 4.7 4.6 - 5.1 mg/dL 03/22/2025 12:26 PM [facility] Lactate, Arterial 2.3(H) 0.5 - 1.6 mmol/L 03/22/2025 12:26 PM [facility] Body Temperature 37.0 Celsius 03/22/2025 12:26 PM [facility] pH, Temp Corrected, Arterial 7.44 7.35 - 7.45 03/22/2025 12:26 PM [facility] pCO2, Temp Corrected, Arterial 34 32 - 45 mm Hg 03/22/2025 12:26 PM T [facility] pO2, Temp Corrected, Arterial 296(H) 83 - 108 mm Hg 03/22/2025 12:26 PM EDT [facility] Neuropsychology Division Chief ID Selene Cardona 03/22/2025 12:26 PM EDT [facility] Blood, Arterial Whole blood specimen / Unknown 03/22/2025 12:25 PM EDT 03/22/2025 12:26 PM EDT Musa Rosado MD LAB POINT OF CARE TE ST DOCKED DEVICE UNSOLICITED RESULTS Final Result Performing Organization Address [facility] Co de Phone Number [facility] [address] [place] [address] * POCT ACT (03/22/2025 12:21 PM EDT) ACT+ (HIGH RANGE) 536 68 - 600 Seconds 03/22/2025 12:30 PM EDT [facility] Neuropsychology Division Chief ID Selene Cardona 03/22/2025 12:30 PM EDT [facility] ACT Device ID [id number] 03/22/2025 12:30 PM EDT [facility] Comment 03/22/2025 12:30 PM EDT [facility] Comment: ACT performed by staff at [...] UNSOLICITED RESULTS Final Result Performing Organization Address [facility] Co de Phone Number [facility] [address] LAB [address] [place] [address] * (ABNORMAL) POCT arterial blood gas gem (03/22/2025 11:54 AM EDT) pH, Arterial 7.31(L) 7.35 - 7.45 03/22/2025 11:56 AM EDT [facility] pCO2, Arterial 43 32 - 45 mm Hg 03/22/2025 11:56 AM [facility] pO2, Arterial 234(H) 83 - 108 mm Hg 03/22/2025 11:56 AM [facility] SO2, Arterial 97 94 - 98 % 03/22/2025 11:56 AM [facility] Base Excess, Arterial -4.4(L) -2 - 3 mmol/L 03/22/2025 11:56 AM [facility] HCO3, Arterial 21.7(L) 22 - 26 mmol/L 03/22/2025 11:56 AM [facility] Total Hemoglobin, Arterial, Whole Blood 9.8(L) 13.7 - 17.5 g/dL 03/22/2025 11:56 AM [facility] Hematocrit, Arterial 29.0(L) 40 - 51.0 % 03/22/2025 11:56 AM [facility] Sodium, Arterial 139 136 - 145 mmol/L 03/22/2025 11:56 AM [facility] Potassium, Arterial 2.9(L) 3.6 - 4.9 mmol/L 03/22/2025 11:56 AM [facility] Chloride, Whole Blood 107 97 - 107 mmol/L 03/22/2025 11:56 AM [facility] Glucose, Arterial 243(H) 74 - 99 mg/dL 03/22/2025 11:56 AM [facility] Ionized Calcium, Arterial 4.9 4.6 - 5.1 mg/dL 03/22/2025 11:56 AM [facility] Lactate, Arterial 2.2(H) 0.5 - 1.6 mmol/L 03/22/2025 11:56 AM [facility] Body Temperature 37.0 Celsius 03/22/2025 11:56 AM [facility] pH, Temp Corrected, Arterial 7.31(L) 7.35 - 7.45 03/22/2025 11:56 AM [facility] pCO2, Temp Corrected, Arterial 43 32 - 45 mm Hg 03/22/2025 11:56 AM [facility] pO2, Temp Corrected, Arterial 234(H) 83 - 108 mm Hg 03/22/2025 11:56 AM EDT [facility] Neuropsychology Division Chief ID Selene Cardona 03/22/2025 11:56 AM EDT [facility] Blood, Arterial Whole blood specimen / Unknown 03/22/2025 11:54 AM EDT 03/22/2025 11:56 AM EDT Musa Rosado MD LAB POINT OF CARE TE ST DOCKED DEVICE UNSOLICITED RESULTS Final Result Performing Organization Address City/[facility] Co de Phone Number [facility] [address] [place] [address] * POCT ACT (03/22/2025 11:49 AM EDT) ACT+ (HIGH RANGE) 591 68 - 600 Seconds 03/22/2025 12:30 PM EDT [facility] Neuropsychology Division Chief ID Selene Cardona 03/22/2025 12:30 PM EDT [facility] ACT Device ID [id number] 03/22/2025 12:30 PM EDT [facility] Comment 03/22/2025 12:30 PM EDT [facility] Comment: ACT performed by staff at [...] RESULTS Final Result Performing Organization Address City/[facility] Co de Phone Number [facility] [address] [facility] [address] [place] [address] * (ABNORMAL) POCT arterial blood gas gem (03/22/2025 11:26 AM EDT) pH, Arterial 7.37 7.35 - 7.45 03/22/2025 11:28 AM EDT [facility] pCO2, Arterial 42 32 - 45 mm Hg 03/22/2025 11:28 AM EDT [facility] pO2, Arterial 251(H) 83 - 108 mm Hg 03/22/2025 11:28 AM [facility] SO2, Arterial 98 94 - 98 % 03/22/2025 11:28 AM [facility] Base Excess, Arterial -1.0 -2 - 3 mmol/L 03/22/2025 11:28 AM [facility] HCO3, Arterial 24.3 22 - 26 mmol/L 03/22/2025 11:28 AM [facility] Total Hemoglobin, Arterial, Whole Blood 9.2(L) 13.7 - 17.5 g/dL 03/22/2025 11:28 AM [facility] Hematocrit, Arterial 28.0(L) 40 - 51.0 % 03/22/2025 11:28 AM [facility] Sodium, Arterial 136 136 - 145 mmol/L 03/22/2025 11:28 AM [facility] Potassium, Arterial 3.6 3.6 - 4.9 mmol/L 03/22/2025 11:28 AM [facility] Chloride, Whole Blood 106 97 - 107 mmol/L 03/22/2025 11:28 AM [facility] Glucose, Arterial 248(H) 74 - 99 mg/dL 03/22/2025 11:28 AM [facility] Ionized Calcium, Arterial 4.7 4.6 - 5.1 mg/dL 03/22/2025 11:28 AM [facility] Lactate, Arterial 1.5 0.5 - 1.6 mmol/L 03/22/2025 11:28 AM [facility] Body Temperature 37.0 Celsius 03/22/2025 11:28 AM [facility] pH, Temp Corrected, Arterial 7.37 7.35 - 7.45 03/22/2025 11:28 AM [facility] pCO2, Temp Corrected, Arterial 42 32 - 45 mm Hg 03/22/2025 11:28 AM [facility] pO2, Temp Corrected, Arterial 251(H) 83 - 108 mm Hg 03/22/2025 11:28 AM [facility] Neuropsychology Division Chief ID Selnee Cardona 03/22/2025 11:28 AM [facility] Blood, Arterial Whole blood specimen / Unknown 03/22/2025 11:26 AM EDT 03/22/2025 11:28 AM EDT Musa Rosado MD LAB POINT OF CARE TE ST DOCKED DEVICE UNSOLICITED RESULTS Final Result Performing Organization Address [facility] de Phone Number HEALTHCARE LAB [address] [place] [address] * POCT ACT (03/22/2025 11:22 AM EDT) ACT+ (HIGH RANGE) 534 68 - 600 Seconds 03/22/2025 11:31 AM EDT [facility]ARE [facility] Neuropsychology Division Chief ID Selene Cardona 03/22/2025 11:31 AM EDT [facility]ARE [facility] ACT Device ID [id number] 03/22/2025 11:31 AM EDT [facility]ARE [facility] Comment 03/22/2025 11:31 AM EDT [facility] Comment: ACT performed by staff at [...] UNSOLICITED RESULTS Final Result Performing Organization Address [facility] de Phone Number HEALTHCARE LAB [address] LAB [address] [place] [address] * (ABNORMAL) POCT arterial blood gas gem (03/22/2025 10:55 AM EDT) pH, Arterial 7.40 7.35 - 7.45 03/22/2025 10:56 AM EDT [facility] pCO2, Arterial 41 32 - 45 mm Hg 03/22/2025 10:56 AM EDT HEALTHCARE LAB pO2, Arterial 183(H) 83 - 108 mm Hg 03/22/2025 10:56 AM EDT [facility]ALTH[facility]ARE [facility] SO2, Arterial 97 94 - 98 % 03/22/2025 10:56 AM [facility] Base Excess, Arterial 0.5 -2 - 3 mmol/L 03/22/2025 10:56 AM [facility] HCO3, Arterial 25.4 22 - 26 mmol/L 03/22/2025 10:56 AM [facility] Total Hemoglobin, Arterial, Whole Blood 12.6(L) 13.7 - 17.5 g/dL 03/22/2025 10:56 AM [facility] Hematocrit, Arterial 38.0(L) 40 - 51.0 % 03/22/2025 10:56 AM [facility] Sodium, Arterial 139 136 - 145 mmol/L 03/22/2025 10:56 AM [facility] Potassium, Arterial 4.1 3.6 - 4.9 mmol/L 03/22/2025 10:56 AM [facility] Chloride, Whole Blood 107 97 - 107 mmol/L 03/22/2025 10:56 AM [facility] Glucose, Arterial 157(H) 74 - 99 mg/dL 03/22/2025 10:56 AM [facility] Ionized Calcium, Arterial 4.7 4.6 - 5.1 mg/dL 03/22/2025 10:56 AM [facility] Lactate, Arterial 1.1 0.5 - 1.6 mmol/L 03/22/2025 10:56 AM [facility] Body Temperature 37.0 Celsius 03/22/2025 10:56 AM [facility] pH, Temp Corrected, Arterial 7.40 7.35 - 7.45 03/22/2025 10:56 AM [facility] pCO2, Temp Corrected, Arterial 41 32 - 45 mm Hg 03/22/2025 10:56 AM [facility] pO2, Temp Corrected, Arterial 183(H) 83 - 108 mm Hg 03/22/2025 10:56 AM [facility] Neuropsychology Division Chief ID Selene Cardona 03/22/2025 10:56 AM [facility] Blood, Arterial Whole blood specimen / Unknown 03/22/2025 10:55 AM EDT 03/22/2025 10:56 AM T us Musa Rosado MD LAB POINT OF CARE TE ST DOCKED DEVICE UNSOLICITED RESULTS Final Result Performing Organization Address City/[facility]/ZIP Co de Phone Number HEALTHCARE LAB [address] [place] [address] * POCT ACT (03/22/2025 10:52 AM EDT) ACT+ (HIGH RANGE) 599 68 - 600 Seconds 03/22/2025 11:02 AM EDT [facility]ARE LAB Neuropsychology Division Chief ID Selene Cardona 03/22/2025 11:02 AM EDT [facility]ARE [facility] ACT Device ID [id number] 03/22/2025 11:02 AM EDT [facility] Comment 03/22/2025 11:02 AM EDT [facility] Comment: ACT performed by staff at [...] UNSOLICITED RESULTS Final Result Performing Organization Address [facility] de Phone Number HEALTHCARE LAB [address] LAB [address] [place] [address] * (ABNORMAL) POCT arterial blood gas gem (03/22/2025 10:04 AM EDT) pH, Arterial 7.36 7.35 - 7.45 03/22/2025 10:06 AM EDT [facility]ARE [facility] pCO2, Arterial 46(H) 32 - 45 mm Hg 03/22/2025 10:06 AM EDT [facility] pO2, Arterial 178(H) 83 - 108 mm Hg 03/22/2025 10:06 AM EDT [facility] SO2, Arterial 97 94 - 98 % 03/22/2025 10:06 AM EDT HEALTHCARE LAB Base Excess, Arterial 0.1 -2 - 3 mmol/L 03/22/2025 10:06 AM EDT [facility] HCO3, Arterial 26.0 22 - 26 mmol/L 03/22/2025 10:06 AM EDT [facility] Total Hemoglobin, Arterial, Whole Blood 13.3(L) 13.7 - 17.5 g/dL 03/22/2025 10:06 AM EDT [facility] Hematocrit, Arterial 40.0 40 - 51.0 % 03/22/2025 10:06 AM EDT [facility] Sodium, Arterial 139 136 - 145 mmol/L 03/22/2025 10:06 AM EDT [facility] Potassium, Arterial 4.1 3.6 - 4.9 mmol/L 03/22/2025 10:06 AM EDT [facility] Chloride, Whole Blood 105 97 - 107 mmol/L 03/22/2025 10:06 AM EDT [facility] Glucose, Arterial 174(H) 74 - 99 mg/dL 03/22/2025 10:06 AM EDT [facility] Ionized Calcium, Arterial 4.9 4.6 - 5.1 mg/dL 03/22/2025 10:06 AM EDT [facility] Lactate, Arterial 1.2 0.5 - 1.6 mmol/L 03/22/2025 10:06 AM EDT [facility] Body Temperature 37.0 Celsius 03/22/2025 10:06 AM EDT [facility] pH, Temp Corrected, Arterial 7.36 7.35 - 7.45 03/22/2025 10:06 AM EDT [facility] pCO2, Temp Corrected, Arterial 46(H) 32 - 45 mm Hg 03/22/2025 10:06 AM EDT [facility] pO2, Temp Corrected, Arterial 178(H) 83 - 108 mm Hg 03/22/2025 10:06 AM EDT [facility] Neuropsychology Division Chief ID Temo Mendoza 03/22/2025 10:06 AM EDT [facility] Blood, Arterial Whole blood specimen / Unknown 03/22/2025 10:04 AM EDT 03/22/2025 10:06 AM EDT us Musa Rosado MD LAB POINT OF CARE TE ST DOCKED DEVICE UNSOLICITED RESULTS Final Result [facility] [address] [place] [address] * (ABNORMAL) POCT arterial blood gas gem (03/22/2025 8:01 AM EDT) pH, Arterial 7.44 7.35 - 7.45 03/22/2025 9:00 AM EDT [facility] pCO2, Arterial 39 32 - 45 mm Hg 03/22/2025 9:00 AM EDT [facility] pO2, Arterial 78(L) 83 - 108 mm Hg 03/22/2025 9:00 AM EDT [facility] SO2, Arterial 96 94 - 98 % 03/22/2025 9:00 AM EDT [facility] Base Excess, Arterial 2.3 -2 - 3 mmol/L 03/22/2025 9:00 AM EDT [facility] HCO3, Arterial 26.5(H) 22 - 26 mmol/L 03/22/2025 9:00 AM EDT [facility] Total Hemoglobin, Arterial, Whole Blood 13.8 13.7 - 17.5 g/dL 03/22/2025 9:00 AM EDT [facility] Hematocrit, Arterial 41.0 40 - 51.0 % 03/22/2025 9:00 AM EDT [facility] Sodium, Arterial 139 136 - 145 mmol/L 03/22/2025 9:00 AM EDT [facility] Potassium, Arterial 3.8 3.6 - 4.9 mmol/L 03/22/2025 9:00 AM EDT [facility] Chloride, Whole Blood 104 97 - 107 mmol/L 03/22/2025 9:00 AM EDT [facility] Glucose, Arterial 207(H) 74 - 99 mg/dL 03/22/2025 9:00 AM EDT [facility] Ionized Calcium, Arterial 5.0 4.6 - 5.1 mg/dL 03/22/2025 9:00 AM EDT [facility] Lactate, Arterial 1.1 0.5 - 1.6 mmol/L 03/22/2025 9:00 AM EDT [facility] Body Temperature 37.0 Celsius 03/22/2025 9:00 AM EDT [facility] pH, Temp Corrected, Arterial 7.44 7.35 - 7.45 03/22/2025 9:00 AM EDT [facility] pCO2, Temp Corrected, Arterial 39 32 - 45 mm Hg 03/22/2025 9:00 AM EDT HEALTHCARE LAB pO2, Temp Corrected, Arterial 78(L) 83 - 108 mm Hg 03/22/2025 9:00 AM EDT HEALTHCARE LAB Neuropsychology Division Chief ID Ludin Aguiar 03/22/2025 9:00 AM EDT [facility]ARE LAB Blood, Arterial Whole blood specimen / Unknown 03/22/2025 8:01 AM EDT 03/22/2025 9:00 AM EDT us Musa Rosado MD LAB POINT OF CARE TE ST DOCKED DEVICE UNSOLICITED RESULTS Final Result Performing Organization Address City/[facility]/ZIP Co de Phone Number HEALTHCARE LAB [address] [place] [address] * POCT ACT (03/22/2025 7:57 AM EDT) ACT+ (HIGH RANGE) 107 68 - 600 Seconds 03/22/2025 8:02 AM EDT HEALTHCARE LAB Neuropsychology Division Chief ID Jean Acevedo 03/22/2025 8:02 AM EDT HEALTH[facility]ARE [facility] ACT Device ID [id number] 03/22/2025 8:02 AM EDT HEALTH[facility]ARE [facility] Comment 03/22/2025 8:02 AM EDT [facility] Comment: ACT performed by staff at [...] 7:57 AM EDT 03/22/2025 8:02 AM EDT Musa Rosado MD LAB POINT OF CARE TE ST DOCKED DEVICE UNSOLICITED RESULTS Final Result Performing Organization Address City/[facility]/ZIP Co de Phone Number HEALTHCARE LAB [address] [place], [place] [id number] [place] [address] LAB [address] [place] [address] * APTT (03/22/2025 6:32 AM EDT) aPTT 28 25 - 35 sec LAB COAGULATION METHOD 03/22/2025 6:58 AM EDT [facility] Blood Venous blood specimen / Unknown Venipuncture / Unknown 03/22/2025 6:32 AM EDT 03/22/2025 6:38 AM EDT Zulay Syed APRN LAB BLOOD ORDERABLES Final R esult Performing Organization Address City/[facility]/ZIP Co de Phone Number [facility] [address] [place] [address] * Protime-INR (03/22/2025 6:32 AM EDT) Prothrombin Time 13.6 12.0 - 14.3 sec LAB COAGULATION METHOD 03/22/2025 6:58 AM EDT [facility] INR 1.0 0.9 - 1.1 LAB COAGULATION METHOD 03/22/2025 6:58 AM EDT [facility] Blood Venous blood specimen / Unknown Venipuncture / Unknown 03/22/2025 6:32 AM EDT 03/22/2025 6:38 AM EDT Narrative [facility] - 03/22/2025 6:58 AM EDT OPTIMAL INR RANGES FOR PATIENT ON ORAL ANTICOAGULANT THERAPY Prevention of venous thromboembolism INR 2.0 to 3.0 In patients with heart disease: Atrial fibrillation INR 2.0 to 3.0 Valvular heart disease INR 2.0 to 3.0 Tissue heart valves INR 2.0 to 3.0 Mechanical prosthetic valves INR 2.5 to 3.5 Prevention of recurrent DC INR 2.5 to 3.5 Zulay Syed APRN LAB BLOOD ORDERABLES Final R esult [facility] [address] [place] [address] * (ABNORMAL) Comprehensive metabolic panel (03/22/2025 6:32 AM EDT) Glucose, Plasma 180(H) 74 - 99 mg/dL 03/22/2025 7:10 AM EDT [facility] BUN, Plasma 20 7 - 21 mg/dL 03/22/2025 7:10 AM EDT [facility] Creatinine, Plasma 1.29(H) 0.70 - 1.20 mg/dL 03/22/2025 7:10 AM EDT [facility] BUN/Creatinine Ratio 16 03/22/2025 7:10 AM EDT [facility] Sodium, Plasma 139 136 - 145 mmol/L 03/22/2025 7:10 AM EDT [facility] Potassium, Plasma 3.9 3.6 - 4.9 mmol/L 03/22/2025 7:10 AM EDT [facility] Chloride, Plasma 104 97 - 107 mmol/L 03/22/2025 7:10 AM EDT [facility] CO2, Plasma 24 22 - 29 mmol/L 03/22/2025 7:10 AM EDT [facility] Anion Gap 11 6 - 16 mmol/L 03/22/2025 7:10 AM EDT [facility] Total Calcium, Plasma 9.5 8.9 - 10.2 mg/dL 03/22/2025 7:10 AM EDT [facility] Total Protein 7.2 6.3 - 7.9 g/dL 03/22/2025 7:10 AM EDT [facility] Albumin, Plasma 4.4 3.5 - 5.2 g/dL 03/22/2025 7:10 AM EDT [facility] AST, Plasma 24 10 - 50 U/L 03/22/2025 7:10 AM EDT [facility] Comment:Hemolyzed, result ma y be falsely increased. ALT, Plasma 28 10 - 50 U/L 03/22/2025 7:10 AM EDT [facility] Alkaline Phosphatase, Plasma 41 40 - 115 U/L 03/22/2025 7:10 AM EDT [facility] Total Bilirubin, Plasma 0.4 0.2 - 1.1 mg/dL 03/22/2025 7:10 AM EDT [facility] eGFRcr 70.6 mL/min/1.7 3m*2 03/22/2025 7:10 AM EDT [facility] Comment:Reported eGFRcr in m L/min/1.73m2 is based the CKD-EPI 2020 equation that does not use a race coefficient. Blood Venous blood specimen / Unknown Venipuncture / Unknown 03/22/2025 6:32 AM EDT 03/22/2025 6:38 AM EDT us Zulay Syed [employer]PER[employer] LAB BLOOD ORDERABLES Final R esult [facility] [address] [place] [address] * CBC (03/22/2025 6:32 AM EDT) WBC Count 5.45 3.70 - 10.30 10*3/uL LAB HEMATOLOGY METHOD 03/22/2025 7:04 AM EDT [facility] RBC Count 4.78 4.60 - 6.10 10*6/uL LAB HEMATOLOGY METHOD 03/22/2025 7:04 AM EDT [facility] HGB 14.7 13.7 - 17.5 g/dL LAB HEMATOLOGY METHOD 03/22/2025 7:04 AM EDT [facility] HCT 42.5 40.0 - 51.0 % LAB HEMATOLOGY METHOD 03/22/2025 7:04 AM EDT [facility] Platelet Count 183 155 - 369 10*3/uL LAB HEMATOLOGY METHOD 03/22/2025 7:04 AM EDT [facility] MCV 89 79 - 98 fL LAB HEMATOLOGY METHOD 03/22/2025 7:04 AM EDT [facility] MCH 30.8 26.0 - 32.0 pg LAB HEMATOLOGY METHOD 03/22/2025 7:04 AM EDT [facility] MCHC 34.6 30.7 - 35.5 g/dL LAB HEMATOLOGY METHOD 03/22/2025 7:04 AM EDT [facility] RDW 13.3 11.5 - 14.5 % LAB HEMATOLOGY METHOD 03/22/2025 7:04 AM EDT [facility] MPV 11.2 8.8 - 12.5 fL LAB HEMATOLOGY METHOD 03/22/2025 7:04 AM EDT [facility] nRBC 0.0 <=0.0 per 100 WBCs LAB HEMATOLOGY METHOD 03/22/2025 7:04 AM EDT [facility] Blood Venous blood specimen / Unknown Venipuncture / Unknown 03/22/2025 6:32 AM EDT 03/22/2025 6:38 AM EDT us Zulay Syed APRN LAB BLOOD ORDERABLES Final R esult Performing Organization Address City/[facility] Co de Phone Number [facility] [address] [place] [address] * (ABNORMAL) POCT glucose meter (03/22/2025 6:31 AM EDT) [facility] POCT Glucose 188(H) 74 - 99 mg/dL 03/22/2025 6:33 AM EDT HEALTHCARE LAB Comment:Accuracy of a [...] for testing. Comment 03/22/2025 6:33 AM EDT [facility] Neuropsychology Division Chief ID Beverly Romano 03/22/2025 6:33 AM EDT HEALTHCARE LAB Device ID [id number] 03/22/2025 6:33 AM EDT HEALTHCARE LAB Specimen Type POC Venous 03/22/2025 6:33 AM EDT [facility] Blood Venous blood specimen / Unknown 03/22/2025 6:31 AM EDT 03/22/2025 6:33 AM EDT us Musa Rosado MD LAB POINT OF CARE TE ST DOCKED DEVICE UNSOLICITED RESULTS Final Result Performing Organization Address City/[facility]/ZIP Co de Phone Number HEALTHCARE LAB [address] [place] [address] documented in this encounter Visit Diagnoses Diagnosis CAD (coronary artery disease)- Primary Coronary atherosclerosis of unspecified type of vessel, [place] or graft CAD, 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 bypass status CAD, 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 bypass status On mechanically assisted ventilation (CMS/HCC) Electrolyte abnormality Electrolyte and fluid disorders not elsewhere classified GERD (gastroesophageal reflux disease) Esophageal reflux Hypertension Unspecified essential hypertension Anemia Unspecified anemia HLD (hyperlipidemia) Other and unspecified hyperlipidemia Poorly 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 ([facility]) Atrial fibrillation ([facility]) Atrial fibrillation CKD (chronic kidney disease) stage 2, GFR 60-89 ml/min Chronic kidney disease, Stage II (mild) Postoperative pain Other acute postoperative pain Coronary artery disease due to calcified coronary lesion CKD (chronic kidney disease) stage 2, GFR 60-89 ml/min Chronic kidney disease, Stage II (mild) 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 ([facility]) Obesity (BMI 30-39.9) documented in this encounter Admitting Diagnoses Diagnosis CAD (coronary artery disease) Coronary atherosclerosis of unspecified type of vessel, [place] or graft CAD, multiple vessel S/P CABG [...] Given 03/29/2025 6:08 PM EDT 1,000 mg allopurinol (Zyloprim) tablet 300 mg 300 mg, [...] Given 03/28/2025 1:23 PM EDT 10 mg docusate sodium (Colace) capsule 100 mg [...] AM EDT 40 mg gabapentin (Neurontin) capsule 300 mg 300 [...] EDT 5,000 Units L eft Lower Abdomen insulin glargine-yfgn 100 UNIT/ML injection 34 Units 34 Units, Subcutaneous, Nightly, First dose (after last modification) on Fri03/29/25 at 2100, Until Discontinued, Routine Given 03/29/2025 9:14 PM EDT 34 Units Left Upper Arm (Back ) insulin lispro (Admelog) 100 units/mL injection - Correction - Resistant Dose 0-10 Units, Subcutaneous, 3 times daily with meals, First dose on Fri03/24/25 at 0830, Until Discontinued, Routine Given 03/30/2025 [...] AM EDT 14 Units Left Lower Abdomen lidocaine (Lidoderm) 5 % patch 2 patch [...] Fri04/02/25 at 0900, Routine, Recovery(Phase II-Outpatient)/On Unit(Inpatient) Given 03/30/2025 9:05 AM EDT 30 mL Given 03/29/2025 9:21 AM EDT 30 mL Given 03/28/2025 8:49 AM EDT 30 mL methocarbamol (Robaxin) tablet 1,000 mg 1,000 mg, Oral, 4 times daily, First dose (after last modification) on 03/26/25 at 0900, Until Discontinued, Routine, Recovery(Phase II-Outpatient)/On Unit(Inpatient) Given 03/30/2025 9:03 AM EDT 1,000 mg Given 03/29/2025 9:13 PM EDT 1,000 mg Given 03/29/2025 6:08 PM EDT 1,000 mg metoprolol tartrate (Lopressor) split tablet 12.5 mg 12.5 mg, Oral, 2 times daily, First dose on Fri03/23/25 at 1330, Until Discontinued, Routine Given 03/30/2025 9:04 AM EDT 12.5 mg Given 03/29/2025 9:12 PM EDT 12.5 mg Given 03/29/2025 9:21 AM EDT 12.5 mg NITROGLYCERIN 100 MCG/ML INJECTION (LEG VEIN) injection As needed, Starting on Fri03/22/25 at 0826, Intraprocedure Given 03/22/2025 8:26 AM EDT 44 mL oxyCODONE (Roxicodone) immediate release tablet 10 mg [...] Given 03/28/2025 8:49 AM EDT 40 mg papaverine in NS injection Continuous PRN, Starting on Fri03/22/25 at 0826, Until Fri03/22/25 at 1602, Routine, Intraprocedure New Bag 03/22/2025 8:26 AM EDT 30 mg polyethylene glycol (Miralax) packet 17 g 17 g, Oral, 2 times daily, First dose (after last modification) on Fri03/23/25 at 0900, Until Discontinued, Routine, Recovery(Phase II-Outpatient)/On Unit(Inpatient) Given 03/30/2025 9:05 AM EDT 17 g Given 03/29/2025 9:14 PM EDT 17 g Given 03/29/2025 9:24 AM EDT 17 g senna (Senokot) tablet 17.2 mg 17.2 mg, [...] and if any blood seen in tubing. thrombin (recombinant) (Recothrom) topical solution As needed, Starting on Fri03/22/25 at 0827, Until Fri03/22/25 at 1602, Routine Given 03/22/2025 8:27 AM EDT 10,000 Units traMADol (Ultram) tablet 50 mg 50 mg, Oral, Every 6 hours, First dose on Fri03/27/25 at 0930, Until Discontinued, Routine Given 03/30/2025 10:30 AM EDT 50 mg Given 03/30/2025 3:40 AM EDT 50 mg Given 03/29/2025 9:13 PM EDT 50 mg vancomycin (Vancocin) vial for injection As needed, Starting on Fri03/22/25 at 0827, Until Fri03/22/25 at 1602, Routine, Intraprocedure Given 03/22/2025 8:27 AM EDT 1 g documented in this encounter Active and Recently [...] 0905 (Given - Provider: Gulshan Mendoza RN) atorvastatin (Lipitor) tablet 80 mg 80 mg, Oral, Nightly, First dose on Fri03/22/25 at 2100, Until Discontinued, Routine, Recovery(Phase II-Outpatient)/On Unit(Inpatient) 2028 (Given - Provider: Afshan Roca RN) 211 (Given - Provider: Afshan Roca RN) docusate sodium (Colace) capsule 100 mg 100 mg, Oral, 2 times daily, First dose on Fri03/22/25 at 2100, Until Discontinued, Routine, Recovery(Phase II-Outpatient)/On Unit(Inpatient) 0850 (Given - Provider: Maureen Bang RN)2029 (Given - Provider: Afshan Roca RN) 09 (Given - Provider: Beverly Meeks RN)2111 (Given - Provider: Afshan Roca RN) 09 (Given - Provider: Gulshan Mendoza RN) fenofibrate [...] 0849 (Given - Provider: Maureen Bang RN) 09 [...] Provider: Afshan Roca RN)1509 (Given - Provider: eBverly Meeks RN)2113 (Given - Provider: Afshan Roca RN) 0616 (Given - Provider: Afshan Roca, LISSY) insulin glargine-yfgn 100 UNIT/ML injection 30 Units (CANCELED) 30 Units, Subcutaneous, Nightly, First dose (after last modification) on Fri03/27/25 at 2100, Until Discontinued, Routine 2030 (Given - Provider: Afshan Roca, LISSY) insulin glargine-yfgn 100 UNIT/ML injection 34 Units 34 Units, Subcutaneous, Nightly, First dose (after last modification) on Fri03/29/25 at 2100, Until Discontinued, Routine 2113 (Given - Provider: Afshan Roca, LISSY) insulin lispro (Admelog) 100 units/mL injection - Correction - Resistant Dose 0-10 Units, Subcutaneous, 3 times daily with meals, First dose on Fri03/24/25 at 0830, Until Discontinued, Routine 0850 (Given - Provider: Maureen Bang, RN)1323 (Given - Provider: Maureen Bang, RN)1738 (Given - Provider: Sonia Martell RN) 0921 (Given - Provider: Beverly Meeks RN)1320 (Given - Provider: Beverly Meeks, LISSY)1800 (Not [...] Units, Subcutaneous, 2 times nightly (2100 & 299), First dose on Fri03/24/25 at 2100, Until [...] Bang, RN)1323 (Given - Provider: Maureen Bang RN)1739 (Given - Provider: Sonia Martell RN) 0923 (Given - Provider: Beverly Meeks, LISSY)1321 (Given - Provider: Beverly Meeks RN) Insulin Lispro (Admelog, HumaLOG) 100 UNIT/ML injection [...] - Provider: Beverly Meeks RN - Comment: chest)212 (Medication Removed - Provider: Afshan Roca RN) [...] Roca RN) 0904 (Given - Provider: Gulshan Mendoza, LISSY) pantoprazole (Protonix) EC tablet 40 mg 40 [...] RN)2029 (Given - Provider: Afshan Roca RN) 0924 (Given - Provider: Beverly Meeks, LISSY)2113 (Given [...] 09 (Given - Provider: Gulshan Mendoza RN) simethicone (Mylicon) chewable tablet 80 mg (CANCELED) 80 mg, Oral, 4 times daily, First dose on Fri03/24/25 at 0900, Until Discontinued, Routine 0849 (Given - Provider: Maureen Bang RN)1323 (Given - Provider: Maureen Bang RN)1732 (Given - Provider: Sonia Martell RN)213 (Given - Provider: Afshan Roca RN) 09 (Given - Provider: Beverly Meeks RN)1510 (Given - Provider: Beverly Meeks RN)180 (Given - Provider: Beverly Meeks RN)2113 (Given - Provider: Afshan Roca RN) sodium chloride 0.9 % flush 10 mL 10 mL, Intravenous, Every 12 hours, First dose on Fri03/22/25 at 1730, Until Discontinued, Routine 0501 (Return to [facility] - Provider: Afshan Roca RN)173 (Given - Provider: Sonia Martell RN) 0454 ([facility] - Provider: Afshan Roca RN)1808 (Given - Provider: Beverly Meeks, LISSY) 0509 ([facility] - Provider: Afshan Roca RN) traMADol (Ultram) tablet 50 mg 50 mg, Oral, Every 6 hours, First dose on 03/27/25 at 0930, Until Discontinued, Routine 0336 (Given - Provider: Afshan Roca RN)0849 (Given - Provider: Maureen Bang RN)1436 (Given - Provider: Maureen Bang RN)2031 (Given - Provider: Afshan Roca RN) 0410 (Given - Provider: Afshan Roca RN)0919 (Given - Provider: Beverly Meesk RN)1510 (Given - Provider: Beverly Meeks RN)2113 [...] moderate pain 0025 (Given - Provider: Afshan Roca, LISSY)0433 (Given - Provider: Afshan Roca, LISSY)1039 (Return to [facility] - Provider: Maureen Bang RN)1745 (Given - Provider: Sonia Martell RN)2235 (Given - Provider: Afshan Roca, LISSY) 0253 (Given - Provider: Afshan Roca, LISSY) ondansetron (Zofran) injection 4 mg 4 mg, Intravenous, Every 6 hours PRN, Starting on Fri03/22/25 at 1549, Until Fri03/30/25 at 1339, Routine, Recovery(Phase II-Outpatient)/On Unit(Inpatient), nausea, vomiting oxyCODONE (Roxicodone) immediate release tablet 10 mg(Linked Group 1) 10 mg, Oral, Every 4 hours PRN, [...] 10 mg dose)0901 (Given - Provider: Gulshan Mendoza, LISSY) oxyCODONE (Roxicodone) immediate release tablet 5 mg (CANCELED) 5 mg, Oral, Every 4 hours PRN, Starting on Fri03/29/25 at 0712, Until Fri03/29/25 at 1159, Routine, severe pain, For pain unrelieved by other interventions 0922 (Given - Provider: Beverly Meeks RN) oxyCODONE (Roxicodone) immediate release tablet 5 mg(Linked Group 1) 5 mg, Oral, Every 4 hours PRN, Starting on Fri03/29/25 at 1158, Until Fri03/30/25 at 1339, Routine, moderate pain, For pain unrelieved by other interventions 1319 (See Alternative - Provider: Beverly Meeks, RN)1324 (Canceled Entry - Provider: Beverly Meeks, RN)1806 (See Alternative - Provider: Beverly Meeks RN)2203 (See Alternative - Provider: Afshan Roca, RN) 0207 (See Alternative - Provider: Afshan Roca, RN)0901 (See Alternative - Provider: Gulshan Mendoza, RN) simethicone (Mylicon) chewable tablet 80 mg 80 mg, Oral, 4 times daily PRN, Starting on Fri03/30/25 at 0830, Until Fri03/30/25 at 1339, Routine, flatulence 0906 (Given - Provider: Gulshan Mendoza, RN) smog 30%-30%-30%-10% rectal enema 100 mL [...] 1: oxyCODONE (Roxicodone) immediate release tablet 5 mgJump to med 5 mg, Oral, Every 4 hours PRN, Starting on Fri03/29/25 at 1158, Until Fri03/30/25 at 1339, Routine, moderate pain, For pain unrelieved by other interventions Or oxyCODONE (Roxicodone) immediate release tablet 10 mgJump to med 10 mg, Oral, Every 4 hours PRN, [...] documented as of this encounter Care Teams Veterinary Bacteriologist Relationship Specialty Start Date End Date David Iverson MD PCP - General 06/06/22 Ludin Gonzalez MD [address] [place] [address] Referring Physician 02/18/25 documented as of this encounter
--- OUTSIDE RECORDS SUMMARY | 2025-04-07 13:20 | XMS_ITS | Clinical Summary ---
Author Organization [facility] Address [address] [place] [address] Care Team Providers [employer] Professional Name Role Phone David Iverson MD Primary Care Provider [phone] Ludin Gonzalez MD Unavailable [phone] Allergies No known active allergies Medications allopurinol [...] op Taking at Discharge) Easy Touch Pen Nisula 31G X 8 MM misc 04/18/20 025 [...] control - Pain Team consulted for IV BIOMETRICS SPECIALIST - Scheduled tylenol, robaxin, gabapentin - 03/25 - discontinue IV BIOMETRICS SPECIALIST, Pain to provide PO recommendations Assessment & Plan (03/24/2025 1:09 PM EDT): - Multimodal pain control - Pain Team consulted for IV BIOMETRICS SPECIALIST - Restart home gabapentin when appropriate Assessment & Plan (03/23/2025 3:01 PM EDT): - Multimodal pain control - Pain Team consulted for IV BIOMETRICS SPECIALIST - Restart home gabapentin when appropriate Assessment [...] Description 04/04/2025 Telephone [facility] In[facility] [address] [place] [id number] Mikayla Leung 03/30/2025 Travel 03/28/2025 Travel 03/27/2025 Travel 03/26/2025 Travel 03/25/2025 Travel 03/24/2025 Travel 03/23/2025 Travel 03/22/2025 7:45 AM EDT - 03/22/2025 5:00 PM EDT Surgery [facility] OPERATING ROOM [address] [place] [address] Musa Rosado MD CABG, 2 OR MORE VESSELS [[id number] (CPT )] 03/22/2025 7:39 AM EDT Anesthesia Event [facility] [address] [place] [id number] Nati Aranda MD Short, Sydney A 03/22/2025 5:35 AM EDT - 03/30/2025 11:38 AM EDT Hospital Encounter [facility] [address] [place] [address] Musa Rosado MD CAD, multiple vessel (Primary Dx); S/P CABG x 4 Discharge Disposition: Home or Self Care 03/22/2025 Travel 03/21/2025 1:23 PM EDT - 03/21/2025 11:59 PM EDT Hospital Encounter [facility] Radiology [address], [address] [place] [address] Coronary artery disease due to calcified coronary lesion Discharge Disposition: Home or Self Care 03/21/2025 1:00 PM EDT Office Visit [facility] Cardiothoracic [address], [address] [place] [address] Musa Rosado MD Coronary artery disease involving united auburn heart without angina pectoris, unspecified vessel or lesion type (Primary Dx); Type 2 diabetes mellitus with stage 2 chronic kidney disease, with long-term current use of insulin ([facility]); CKD (chronic kidney disease) stage 2, GFR 60-89 ml/min; Obesity (BMI 30-39.9) 03/21/2025 Travel 03/15/2025 11:30 AM EDT Pre-Admission Testing [facility] Pre-op Clinic [address] [place] [address] 03/15/2025 Travel 03/14/2025 11:40 AM EDT Office Visit [facility] Nephrology, Bone & Mineral Metabolism [address], [address] [place] [address] Sonia Medley MD Stage 3 chronic kidney disease, unspecified whether stage 3a or 3b CKD ([facility]) (Primary Dx) 03/14/2025 Travel 03/10/2025 Telephone [facility] Nephrology, Bone & Mineral Metabolism [address], [address] [place] [address] Zaman Russel Sarahy 02/17/2025 11:40 AM EDT Consult [facility] Cardiothoracic [address], [address] [place] [id number] Musa Rosado MD Coronary artery disease due to calcified coronary lesion (Primary Dx) 02/17/2025 Orders Only [facility] Cardiothoracic [address] [place] [address], [address] [place] [address] Musa Rosado MD Coronary artery disease involving united auburn heart without angina pectoris, unspecified vessel or [...] any time in the past 12 m [facility], were you homeless or living in a usp (including now)? No 03/23/2025 Utilities Answer Date Recorded In the past 12 months has [employer], gas, oil, or water company threatened [...] Office Visit [facility] Cardiothoracic [address], [facility] [address] [place] [address] Musa Rosado MD [address] [facility] [address] [place] [address] 06/13/2025 11:40 AM EDT Office Visit [facility] Nephrology, Bone & Mineral Metabolism [address] [facility], [address] [place] [address] Sonia Medley MD [address] [facility] [employer] [place] [address] Health Maintenance Due Date Last [...] Years) (1 of 2 - PCV) 2001 [id number] Vaccine (2 - season) 2024 03/22/2021 UKY-Diabetes: [...] Care Plan Autogenerated Problem No Zulay Syed, FOREIGN SERVICE OFFICER Procedures Procedure Name Priority Date/Time Associated Diagnosis [...] PROCEDURE PLACEHOLDER Routine 03/22/2025 9:51 AM EDT MD INSERT/PLACE FLOW DIRECT CATH Routine 03/22/2025 8:47 AM EDT ANESTHESIA ULTRASOUND GUIDED Routine 03/22/2025 8:47 AM EDT PB ANESTHESIA NON-TIMED PROCEDURE PLACEHOLDER Routine 03/22/2025 8:47 AM EDT MD AN CENTRAL LINE DOUBLE LUMEN Routine 03/22/2025 8:47 AM EDT PB ANESTHESIA NON-TIMED PROCEDURE PLACEHOLDER Routine 03/22/2025 8:47 AM EDT PB ANESTHESIA PLACEHOLDER Routine 03/22/2025 8:03 AM EDT MD AN ELECTIVE ENDOTRACHEAL AIRWAY Routine 03/22/2025 8:03 [...] stage 2 chronic kidney disease and hypertension ([facility]) Obesity (BMI 30-39.9) APTT Routine 03/22/2025 [...] unspecified whether stage 3a or 3b CKD ([facility]) CBC WITH AUTO DIFFERENTIAL Routine 03/21/2025 1:19 [...] 1:31 PM EDT Coronary artery disease involving united auburn heart without angina pectoris, unspecified vessel or lesion type CBC W/O DIFFERENTIAL Routine 02/17/2025 1:31 PM EDT Coronary artery disease involving united auburn heart without angina pectoris, unspecified vessel or lesion type PROTHROMBIN TIME(PT) / INR Routine 02/17/2025 1:31 PM EDT Coronary artery disease involving united auburn heart without angina pectoris, unspecified vessel or lesion type APTT Routine 02/17/2025 1:31 PM EDT Coronary artery disease involving united auburn heart without angina pectoris, unspecified vessel or lesion type HEMOGLOBIN A1C Routine 02/17/2025 1:31 PM EDT Coronary artery disease involving united auburn heart without angina pectoris, unspecified vessel or lesion type from Last 3 Months Results * (ABNORMAL) POCT glucose meter (03/30/2025 8:32 AM EDT) Only the most recent of45 resultswithin the time period is included. [facility] POCT Glucose 176(H) 74 - 99 mg/dL 03/30/2025 8:34 AM EDT [facility] Comment:Accuracy of a glucos e result [...] Comment 03/30/2025 8:34 AM EDT [facility] Restrictive Preparation Operator ID Katlin Cheung 03/30/2025 8:34 AM EDT [facility]ALTH[facility]ARE LAB Device ID [id number] 03/30/2025 8:34 AM EDT [facility] Specimen Type POC Capillary 03/30/2025 8:34 AM EDT [facility] Blood Capillary blood specimen / Unknown 03/30/2025 8:32 AM EDT 03/30/2025 8:34 AM EDT us Musa Rosado MD LAB POINT OF CARE TE ST DOCKED DEVICE UNSOLICITED RESULTS Final Result [facility] [address] [place] [address] * XR Chest 2 Views (03/30/2025 6:47 [...] on 03/30/2025 9:29 AM us Ephraim Hicks FOREIGN SERVICE OFFICER IMG XR PROCEDURES Final Resu lt * (ABNORMAL) CBC W/O Differential (03/30/2025 3:47 AM EDT) Only the most recent of10 resultswithin the time period is included. WBC Count 7.54 3.70 - 10.30 10*3/uL LAB HEMATOLOGY METHOD 03/30/2025 4:58 AM EDT [facility] RBC Count 3.01(L) 4.60 - 6.10 10*6/uL LAB HEMATOLOGY METHOD 03/30/2025 4:58 AM EDT [facility] HGB 9.0(L) 13.7 - 17.5 g/dL LAB HEMATOLOGY METHOD 03/30/2025 4:58 AM EDT [facility] HCT 27.9(L) 40.0 - 51.0 % LAB HEMATOLOGY METHOD 03/30/2025 4:58 AM EDT [facility] Platelet Count 286 155 - 369 10*3/uL LAB HEMATOLOGY METHOD 03/30/2025 4:58 AM EDT [facility] MCV 93 79 - 98 fL LAB HEMATOLOGY METHOD 03/30/2025 4:58 AM EDT [facility] MCH 29.9 26.0 - 32.0 pg LAB HEMATOLOGY METHOD 03/30/2025 4:58 AM EDT [facility] MCHC 32.3 30.7 - 35.5 g/dL LAB HEMATOLOGY METHOD 03/30/2025 4:58 AM EDT [facility] RDW 14.3 11.5 - 14.5 % LAB HEMATOLOGY METHOD 03/30/2025 4:58 AM EDT [facility] MPV 10.7 8.8 - 12.5 fL LAB HEMATOLOGY METHOD 03/30/2025 4:58 AM EDT [facility] nRBC 0.4(H) <=0.0 per 100 WBCs LAB HEMATOLOGY METHOD 03/30/2025 4:58 AM EDT [facility] Blood Venous blood specimen / Unknown Venipuncture / Unknown 03/30/2025 3:47 AM EDT 03/30/2025 4:51 AM EDT us Ephraim Hicks APRN LAB BLOOD ORDERABLES Final R esult [facility] [address] [place] [address] * (ABNORMAL) Basic Metabolic Panel, Plasma (03/30/2025 3:47 AM EDT) Only the most recent of5 resultswithin the time period is included. Pathologist [facility] Glucose, Plasma 172(H) 74 - 99 mg/dL 03/30/2025 5:23 AM EDT [facility] BUN, Plasma 28(H) 7 - 21 mg/dL 03/30/2025 5:23 AM EDT [facility] Creatinine, Plasma 1.18 0.70 - 1.20 mg/dL 03/30/2025 5:23 AM EDT [facility] BUN/Creatinine Ratio 24 03/30/2025 5:23 AM EDT [facility] Sodium, Plasma 138 136 - 145 mmol/L 03/30/2025 5:23 AM EDT [facility] Potassium, Plasma 4.1 3.6 - 4.9 mmol/L 03/30/2025 5:23 AM EDT [facility] Chloride, Plasma 103 97 - 107 mmol/L 03/30/2025 5:23 AM EDT [facility] CO2, Plasma 23 22 - 29 mmol/L 03/30/2025 5:23 AM EDT [facility] Anion Gap 12 6 - 16 mmol/L 03/30/2025 5:23 AM EDT [facility] Total Calcium, Plasma 8.9 8.9 - 10.2 mg/dL 03/30/2025 5:23 AM EDT [facility] eGFRcr 78.5 mL/min/1.7 3m*2 03/30/2025 5:23 AM EDT [facility] Comment:Reported eGFRcr in m L/min/1.73m2 is based the CKD-EPI 2020 equation that does not use a race coefficient. Blood Venous blood specimen / Unknown Venipuncture / Unknown 03/30/2025 3:47 AM EDT 03/30/2025 4:48 AM EDT us Ephraim Hicks FOREIGN SERVICE OFFICER LAB BLOOD ORDERABLES Final R esult Performing Organization Address City/[facility]/ZIP Co de Phone Number [facility] [address] [place] [address] * Magnesium (03/28/2025 4:35 AM EDT) Only the most recent of7 resultswithin the time period is included. Magnesium, Plasma 1.9 1.9 - 2.4 mg/dL 03/28/2025 5:18 AM EDT [facility] Blood Venous blood specimen / Unknown Venipuncture / Unknown 03/28/2025 4:35 AM EDT 03/28/2025 4:42 AM EDT us La Nena March FOREIGN SERVICE OFFICER LAB BLOOD ORDERABLES Final Res ult Performing Organization Address [facility] Co de Phone Number [facility] [address] [place] [address] * (ABNORMAL) Comprehensive metabolic panel (03/28/2025 4:35 AM EDT) Only the most recent of6 resultswithin the time period is included. Glucose, Plasma 196(H) 74 - 99 mg/dL 03/28/2025 5:18 AM EDT [facility] BUN, Plasma 20 7 - 21 mg/dL 03/28/2025 5:18 AM EDT [facility] Creatinine, Plasma 1.13 0.70 - 1.20 mg/dL 03/28/2025 5:18 AM EDT [facility] BUN/Creatinine Ratio 18 03/28/2025 5:18 AM EDT [facility] Sodium, Plasma 134(L) 136 - 145 mmol/L 03/28/2025 5:18 AM EDT [facility] Potassium, Plasma 4.2 3.6 - 4.9 mmol/L 03/28/2025 5:18 AM EDT [facility] Chloride, Plasma 102 97 - 107 mmol/L 03/28/2025 5:18 AM EDT [facility] CO2, Plasma 22 22 - 29 mmol/L 03/28/2025 5:18 AM EDT [facility] Anion Gap 10 6 - 16 mmol/L 03/28/2025 5:18 AM EDT [facility] Total Calcium, Plasma 9.1 8.9 - 10.2 mg/dL 03/28/2025 5:18 AM EDT [facility] Total Protein 6.3 6.3 - 7.9 g/dL 03/28/2025 5:18 AM EDT [facility] Albumin, Plasma 3.6 3.5 - 5.2 g/dL 03/28/2025 5:18 AM EDT [facility] AST, Plasma 32 10 - 50 U/L 03/28/2025 5:18 AM EDT [facility] ALT, Plasma 35 10 - 50 U/L 03/28/2025 5:18 AM EDT [facility] Alkaline Phosphatase, Plasma 67 40 - 115 U/L 03/28/2025 5:18 AM EDT [facility] Total Bilirubin, Plasma 0.8 0.2 - 1.1 mg/dL 03/28/2025 5:18 AM EDT [facility] eGFRcr 82.7 mL/min/1.7 3m*2 03/28/2025 5:18 AM EDT [facility] Comment:Reported eGFRcr in m L/min/1.73m2 is based the CKD-EPI 2020 equation that does not use a race coefficient. Blood Venous blood specimen / Unknown Venipuncture / Unknown 03/28/2025 4:35 AM EDT 03/28/2025 4:42 AM EDT us La Nena March FOREIGN SERVICE OFFICER LAB BLOOD ORDERABLES Final Res ult [facility] [address] [place] [address] * XR Chest 1 View (03/27/2025 4:58 [...] on 03/27/2025 10:17 AM La Nena March FOREIGN SERVICE OFFICER IMG XR PROCEDURES Final Result * (ABNORMAL) Lipid panel (03/26/2025 3:50 AM EDT) Cholesterol, Plasma 76 <200 mg/dL 03/26/2025 4:55 AM EDT [facility] Comment: Cholesterol Reference Range (age >17 years): Desirable <200 mg/dL Borderline 200 to 239 mg/dL Undesirable >239 mg/dL HDL 22(L) >=40 mg/dL 03/26/2025 4:55 AM EDT [facility] Comment: HDL Cholesterol Reference Ranges (age >17 years): Female, acceptable > or = 50 mg/dL Male, acceptable > or = 40 mg/dL Triglycerides, Plasma 152(H) <150 mg/dL 03/26/2025 4:55 AM EDT [facility] Comment: Triglyceride Reference Range (age >17 years): Desirable: <150 mg/dL Borderline high: 150 to 199 mg/dL High: 200 to 499 mg/dL Very high: >499 mg/dL Increased risk of pancreatitis: >1000 mg/dL Cholesterol/HDL Ratio 3 03/26/2025 4:55 AM EDT [facility] LDL, Calculated 28 <100 mg/dL 4:55 AM EDT [facility] Comment: LDL Cholesterol Reference [...] 12 hours? No 03/26/2025 4:55 AM EDT [facility] Blood Venous blood specimen / Unknown Venipuncture / Unknown 03/26/2025 3:50 AM EDT 03/26/2025 4:26 AM EDT us La Nena March APRN LAB BLOOD ORDERABLES Final Res ult [facility] [address] [place] [address] * (ABNORMAL) Phosphorus, Plasma (03/25/2025 4:07 AM EDT) Only the most recent of6 resultswithin the time period is included. Phosphorus, Plasma 1.2(L) 2.5 - 4.5 mg/dL 03/25/2025 4:54 AM EDT [facility] Blood Venous blood specimen / Unknown Venipuncture / Unknown 03/25/2025 4:07 AM EDT 03/25/2025 4:20 AM EDT us Musa Rosado MD LAB BLOOD ORDERABLES Final R esult [facility] [address] [place] [address] * MD CRITICAL CARE, E/M 30-74 MINUTES [...] LAB HEMATOLOGY METHOD 03/24/2025 12:18 AM EDT [facility] pCO2, Arterial 43 32 - 45 mmHg LAB HEMATOLOGY METHOD 03/24/2025 12:18 AM EDT [facility] pO2, Arterial 58(LL) 83 - 108 mmHg LAB HEMATOLOGY METHOD 03/24/2025 12:18 AM EDT [facility] SO2, Measured, Arterial 90(L) 94 - 98 % LAB HEMATOLOGY METHOD 03/24/2025 12:18 AM EDT [facility] Base Excess, Arterial 2.9 -2.0 - 3.0 mmol/L LAB HEMATOLOGY METHOD 03/24/2025 12:18 AM EDT [facility] Bicarbonate, Calculated, Arterial 28(H) 22 - 26 mmol/L LAB HEMATOLOGY METHOD 03/24/2025 12:18 AM EDT [facility] Hematocrit, Whole Blood 26.5(L) 40.0 - 51.0 % LAB HEMATOLOGY METHOD 03/24/2025 12:18 AM EDT [facility] Sodium, Whole Blood 138 136 - 145 mmol/L LAB HEMATOLOGY METHOD 03/24/2025 12:18 AM EDT [facility] Potassium, Whole Blood 4.2 3.6 - 4.9 mmol/L LAB HEMATOLOGY METHOD 03/24/2025 12:18 AM EDT [facility] Chloride, Whole Blood 104 97 - 107 mmol/L LAB HEMATOLOGY METHOD 03/24/2025 12:18 AM EDT [facility] Glucose, Whole Blood 161(H) 74 - 99 mg/dL LAB HEMATOLOGY METHOD 03/24/2025 12:18 AM EDT [facility] Ionized Calcium, Whole Blood 4.6 4.6 - 5.1 mg/dL LAB HEMATOLOGY METHOD 03/24/2025 12:18 AM EDT [facility] Lactate, Arterial, Whole Blood 1.1 0.5 - 1.6 mmol/L LAB HEMATOLOGY METHOD 03/24/2025 12:18 AM EDT [facility] Blood Arterial blood specimen / Unknown Arterial Puncture / Unknown 03/24/2025 12:08 AM EDT 03/24/2025 12:14 AM EDT us Musa Rosado MD LAB BLOOD ORDERABLES Final R esult [facility] [address] [place] [address] * MD CRITICAL CARE, E/M 30-74 MINUTES [...] QTC Interval 414 ms MUSE ECG P Concord 49 degrees MUSE ECG R [place] -7 degrees MUSE ECG T Wave Concord -4 degrees MUSE ECG Diagnosis Normal sinus rhythm MUSE ECG Diagnosis ST elevation, consider early repolarization , pericarditis, or injury MUSE ECG Diagnosis Nonspecific T wave abnormality MUSE ECG Diagnosis Need clinical information and correlation MUSE ECG Diagnosis MUSE ECG Diagnosis Confirmed by Jarett Steen ([id number]) on 03/23/2025 8:36:37 AM MUSE ECG 03/23/2025 4:28 AM EDT 03/23/2025 8:36 AM EDT us Musa Rosado MD ECG ORDERABLES Final Result MUSE ECG * Potassium, Plasma (03/23/2025 3:56 AM EDT) Only the most recent of3 resultswithin the time period is included. Potassium, Plasma 4.2 3.6 - 4.9 mmol/L 03/23/2025 4:40 AM EDT [facility] Blood Arterial blood specimen / Unknown Arterial Puncture / Unknown 03/23/2025 3:56 AM EDT 03/23/2025 4:12 AM EDT us Musa Rosado MD LAB BLOOD ORDERABLES Final R esult [facility] [address] [place] [address] * (ABNORMAL) Blood gas panel with oximetry, mixed venous (03/23/2025 3:53 AM EDT) pH, Mixed Venous 7.37 7.32 - 7.43 LAB HEMATOLOGY METHOD 03/23/2025 4:11 AM EDT [facility] pCO2, Mixed Venous 46 40 - 55 mmHg LAB HEMATOLOGY METHOD 03/23/2025 4:11 AM EDT [facility] pO2, Mixed Venous 34 25 - 40 mmHg LAB HEMATOLOGY METHOD 03/23/2025 4:11 AM EDT [facility] SO2, Measured, Mixed Venous 63(L) 65 - 80 % LAB HEMATOLOGY METHOD 03/23/2025 4:11 AM EDT [facility] Bicarbonate, Calculated, Mixed Venous 26 22 - 26 mmol/L LAB HEMATOLOGY METHOD 03/23/2025 4:11 AM EDT [facility] Base Excess, Mixed Venous 0.4 -2.0 - 3.0 mmol/L LAB HEMATOLOGY METHOD 03/23/2025 4:11 AM EDT [facility] Hematocrit, Whole Blood 30.3(L) 40.0 - 51.0 % LAB HEMATOLOGY METHOD 03/23/2025 4:11 AM EDT [facility] Sodium, Whole Blood 142 136 - 145 mmol/L LAB HEMATOLOGY METHOD 03/23/2025 4:11 AM EDT [facility] Potassium, Whole Blood 4.0 3.6 - 4.9 mmol/L LAB HEMATOLOGY METHOD 03/23/2025 4:11 AM EDT [facility] Chloride, Whole Blood 109(H) 97 - 107 mmol/L LAB HEMATOLOGY METHOD 03/23/2025 4:11 AM EDT [facility] Ionized Calcium, Whole Blood 4.4(L) 4.6 - 5.1 mg/dL LAB HEMATOLOGY METHOD 03/23/2025 4:11 AM EDT [facility] Glucose, Whole Blood 152(H) 74 - 99 mg/dL LAB HEMATOLOGY METHOD 03/23/2025 4:11 AM EDT [facility] Oxyhemoglobin, Mixed Venous, Whole Blood 61.7 40.0 - 70.0 % LAB HEMATOLOGY METHOD 03/23/2025 4:11 AM EDT [facility] Hemoglobin Reduced, Mixed Venous, Whole Blood 36.7 % LAB HEMATOLOGY METHOD 03/23/2025 4:11 AM EDT [facility] Total Hemoglobin, Mixed Venous, Whole Blood 9.9(L) 13.7 - 17.5 g/dL LAB HEMATOLOGY METHOD 03/23/2025 4:11 AM EDT [facility] Blood Mixed venous blood specimen / Unknown Venipuncture / Unknown 03/23/2025 3:53 AM EDT 03/23/2025 4:09 AM EDT Musa Rosado MD LAB BLOOD ORDERABLES Final R esult Performing Organization Address City/[facility]/ZIP Co de Phone Number [facility] [address] [place] [address] * (ABNORMAL) Hematocrit (03/23/2025 12:13 AM EDT) Only the most recent of2 resultswithin the time period is included. HCT 29.6(L) 40.0 - 51.0 % LAB HEMATOLOGY METHOD 03/23/2025 12:42 AM EDT [facility] Blood Arterial blood specimen / Unknown Arterial Puncture / Unknown 03/23/2025 12:13 AM EDT 03/23/2025 12:32 AM EDT Musa Rosado MD LAB BLOOD ORDERABLES Final R esult [facility] [address] [place] [address] * (ABNORMAL) Hemoglobin (03/22/2025 8:14 PM EDT) HGB 10.4(L) 13.7 - 17.5 g/dL LAB HEMATOLOGY METHOD 03/22/2025 8:35 PM EDT [facility] Blood Arterial blood specimen / Unknown Arterial Puncture / Unknown 03/22/2025 8:14 PM EDT 03/22/2025 8:28 PM EDT us Musa Rosado MD LAB BLOOD ORDERABLES Final R esult [facility] [address] [place] [address] * MD CRITICAL CARE, E/M 30-74 MINUTES [...] Detected Not Detected 03/23/2025 12:49 PM EDT [facility] Swab (Axilla and Groin) Non-blood Collection / Unknown 03/22/2025 3:52 PM EDT 03/22/2025 4:37 PM EDT Narrative [facility] - 03/23/2025 12:49 PM EDT This PCR assay was developed and its performance characteristics determined by [facility] as appropriate for clinical purposes. This assay has not been cleared or approved by the FDA, but is performed in a CLIA regulated laboratory that is qualified to perform high-complexity testing. Musa Rosado MD LAB MICROBIOLOGY - GENERAL O RDERABLES Final Result Performing Organization Address [facility] Co de Phone Number [facility] [address] [place] [address] * Multi Drug Resistance Test (03/22/2025 3:52 PM EDT) Culture No growth at day 1 03/24/2025 7:31 AM EDT [facility] Swab (Nares and Lisa Rectal) Non-blood Collection / Unknown 03/22/2025 3:52 PM EDT 03/22/2025 4:37 PM EDT Narrative [facility] - 03/24/2025 7:31 AM EDT This test was developed and its performance characteristics determined by the [facility]. Although the media is FDA-approved, it is not FDA-approved for all specimen types submitted. The FDA has determined that such clearance or approval is not necessary. This test is used for surveillance purposes. It should not be regarded as investigational or for research. The [facility] is certified under the Clinical Laboratory Improvement Amendments of 1988 (CLIA-88) as qualified to perform high complexity clinical laboratory testing. Musa Rosado MD LAB MICROBIOLOGY - GENERAL O RDERABLES Final Result Performing Organization Address [facility] de Phone Number [address] [address] * APTT (03/22/2025 3:52 PM EDT) Only the most recent of4 resultswithin the time period is included. aPTT 28 25 - 35 sec LAB COAGULATION METHOD 03/22/2025 5:08 PM EDT [facility] Blood Venous blood specimen / Unknown Venipuncture / Unknown 03/22/2025 3:52 PM EDT 03/22/2025 4:45 PM EDT Musa Rosado MD LAB BLOOD ORDERABLES Final R esult Performing Organization Address City/[facility] Co de Phone Number [facility] [address] [place] [address] * (ABNORMAL) Protime-INR (03/22/2025 3:52 PM EDT) Only the most recent of4 resultswithin the time period is included. Prothrombin Time 17.0(H) 12.0 - 14.3 sec LAB COAGULATION METHOD 03/22/2025 5:08 PM EDT [facility] INR 1.4(H) 0.9 - 1.1 LAB COAGULATION METHOD 03/22/2025 5:08 PM EDT [facility] Blood Venous blood specimen / Unknown Venipuncture / Unknown 03/22/2025 3:52 PM EDT 03/22/2025 4:45 PM EDT Narrative [facility] - 03/22/2025 5:08 PM EDT OPTIMAL INR RANGES FOR PATIENT ON ORAL ANTICOAGULANT THERAPY Prevention of venous thromboembolism INR 2.0 to 3.0 In patients with heart disease: Atrial fibrillation INR 2.0 to 3.0 Valvular heart disease INR 2.0 to 3.0 Tissue heart valves INR 2.0 to 3.0 Mechanical prosthetic valves INR 2.5 to 3.5 Prevention of recurrent MT INR 2.5 to 3.5 us Musa Rosado MD LAB BLOOD ORDERABLES Final R esult [facility] [address] [place] [address] * (ABNORMAL) POCT arterial blood gas gem (03/22/2025 3:29 PM EDT) Only the most recent of11 resultswithin the time period is included. pH, Arterial 7.36 7.35 - 7.45 03/22/2025 3:41 PM EDT [facility] pCO2, Arterial 42 32 - 45 mm Hg 03/22/2025 3:41 PM EDT [facility] pO2, Arterial 150(H) 83 - 108 mm Hg 03/22/2025 3:41 PM EDT [facility] SO2, Arterial 98 94 - 98 % 03/22/2025 3:41 PM EDT [facility] Base Excess, Arterial -1.7 -2 - 3 mmol/L 03/22/2025 3:41 PM EDT [facility] HCO3, Arterial 23.7 22 - 26 mmol/L 03/22/2025 3:41 PM EDT [facility] [facility] Total Hemoglobin, Arterial, Whole Blood 11.2(L) 13.7 - 17.5 g/dL 03/22/2025 3:41 PM EDT [facility] Hematocrit, Arterial 34.0(L) 40 - 51.0 % 03/22/2025 3:41 PM EDT [facility] Sodium, Arterial 141 136 - 145 mmol/L 03/22/2025 3:41 PM EDT [facility] Potassium, Arterial 3.8 3.6 - 4.9 mmol/L 03/22/2025 3:41 PM EDT [facility] Chloride, Whole Blood 109(H) 97 - 107 mmol/L 03/22/2025 3:41 PM EDT [facility] Glucose, Arterial 192(H) 74 - 99 mg/dL 03/22/2025 3:41 PM EDT [facility] Ionized Calcium, Arterial 4.6 4.6 - 5.1 mg/dL 03/22/2025 3:41 PM T [facility] Lactate, Arterial 2.0(H) 0.5 - 1.6 mmol/L 03/22/2025 3:41 PM EDT [facility] Body Temperature 37.0 Celsius 03/22/2025 3:41 PM T [facility] pH, Temp Corrected, Arterial 7.36 7.35 - 7.45 03/22/2025 3:41 PM EDT [facility] pCO2, Temp Corrected, Arterial 42 32 - 45 mm Hg 03/22/2025 3:41 PM EDT [facility] pO2, Temp Corrected, Arterial 150(H) 83 - 108 mm Hg 03/22/2025 3:41 PM EDT [facility] Restrictive Preparation Operator ID Ludin Aguiar 03/22/2025 3:41 PM EDT [facility] Blood, Arterial Whole blood specimen / Unknown 03/22/2025 3:29 PM EDT 03/22/2025 3:41 PM EDT Musa Rosado MD LAB POINT OF CARE TE ST DOCKED DEVICE UNSOLICITED RESULTS Final Result Performing Organization Address City/[facility]/ZIP Co de Phone Number [facility] [address] [place] [address] * QPLUS (03/22/2025 2:24 PM EDT) Clot [...] Seconds 03/22/2025 2:38 PM EDT [facility] Restrictive Preparation Operator ID Ludin Aguiar 03/22/2025 2:38 PM EDT [facility] Device ID [id number] 03/22/2025 2:38 PM EDT [facility] Whole Blood 03/22/2025 2:24 PM EDT 03/22/2025 2:38 PM EDT us Musa Rosado MD LAB POINT OF CARE TE ST DOCKED DEVICE UNSOLICITED RESULTS Final Result Performing Organization Address City/[facility]/ZIP Co de Phone Number [facility] [address] [place] [address] * POCT ACT (03/22/2025 2:04 PM EDT) Only the most recent of8 resultswithin the time period is included. ACT+ (HIGH RANGE) 115 68 - 600 Seconds 03/22/2025 2:10 PM EDT [facility] Restrictive Preparation Operator ID Selene Cardona 03/22/2025 2:10 PM EDT [facility] ACT Device ID [id number] 03/22/2025 2:10 PM EDT [facility] Comment 03/22/2025 2:10 PM EDT [facility] Comment: ACT performed by [...] UNSOLICITED RESULTS Final Result Performing Organization Address City/State/[facility] Co de Phone Number [facility] [address] [facility] [address] [place] [address] * PB ANESTHESIA NON-TIMED PROCEDURE PLACEHOLDER (03/22/2025 [...] ORDERABLES Edite d Result - Final * MD AN CENTRAL LINE DOUBLE LUMEN, PB ANESTHESIA NON-TIMED PROCEDURE PLACEHOLDER, ANESTHESIA ULTRASOUND GUIDED, MD INSERT/PLACE FLOW DIRECT CATH (03/22/2025 8:47 AM [...] Aranda MD ANESTHESIA ORDERABLES Final Result * MD AN ELECTIVE ENDOTRACHEAL AIRWAY, PB ANESTHESIA PLACEHOLDER [...] LAB HEMATOLOGY METHOD 03/21/2025 3:03 PM EDT [facility] RBC Count 4.75 4.60 - 6.10 10*6/uL LAB HEMATOLOGY METHOD 03/21/2025 3:03 PM EDT [facility] HGB 14.2 13.7 - 17.5 g/dL LAB HEMATOLOGY METHOD 03/21/2025 3:03 PM EDT [facility] HCT 42.9 40.0 - 51.0 % LAB HEMATOLOGY METHOD 03/21/2025 3:03 PM EDT [facility] Platelet Count 214 155 - 369 10*3/uL LAB HEMATOLOGY METHOD 03/21/2025 3:03 PM EDT [facility] MCV 90 79 - 98 fL LAB HEMATOLOGY METHOD 03/21/2025 3:03 PM EDT [facility] MCH 29.9 26.0 - 32.0 pg LAB HEMATOLOGY METHOD 03/21/2025 3:03 PM EDT [facility] MCHC 33.1 30.7 - 35.5 g/dL LAB HEMATOLOGY METHOD 03/21/2025 3:03 PM EDT [facility] RDW 13.2 11.5 - 14.5 % LAB HEMATOLOGY METHOD 03/21/2025 3:03 PM EDT [facility] MPV 11.6 8.8 - 12.5 fL LAB HEMATOLOGY METHOD 03/21/2025 3:03 PM EDT [facility] nRBC 0.0 <=0.0 per 100 WBCs LAB HEMATOLOGY METHOD 03/21/2025 3:03 PM EDT [facility] Differential Type Automated LAB HEMATOLOGY METHOD 03/21/2025 3:03 PM EDT [facility] Neutrophils % 61 % LAB HEMATOLOGY METHOD 03/21/2025 3:03 PM EDT [facility] Lymphocytes % 29 % LAB HEMATOLOGY METHOD 03/21/2025 3:03 PM EDT [facility] Monocytes % 7 % LAB HEMATOLOGY METHOD 03/21/2025 3:03 PM EDT [facility] Eosinophils % 2 % LAB HEMATOLOGY METHOD 03/21/2025 3:03 PM EDT [facility] Basophils % 1 % LAB HEMATOLOGY METHOD 03/21/2025 3:03 PM EDT [facility] Immature Granulocytes % 0 % LAB HEMATOLOGY METHOD 03/21/2025 3:03 PM EDT [facility] Neutrophils Absolute 3.84 1.60 - 6.10 10*3/uL LAB HEMATOLOGY METHOD 03/21/2025 3:03 PM EDT [facility] Lymphocytes Absolute 1.81 1.20 - 3.90 10*3/uL LAB HEMATOLOGY METHOD 03/21/2025 3:03 PM EDT [facility] Monocytes Absolute 0.46 0.30 - 0.90 10*3/uL LAB HEMATOLOGY METHOD 03/21/2025 3:03 PM EDT [facility] Eosinophils Absolute 0.13 0.00 - 0.50 10*3/uL LAB HEMATOLOGY METHOD 03/21/2025 3:03 PM EDT [facility] Basophils Absolute 0.05 0.00 - 0.10 10*3/uL LAB HEMATOLOGY METHOD 03/21/2025 3:03 PM EDT [facility] Immature Granulocytes Absolute 0.02 0.00 - 0.06 10*3/uL LAB HEMATOLOGY METHOD 03/21/2025 3:03 PM EDT [facility] Blood Venous blood specimen / Unknown Venipuncture / Unknown 03/21/2025 1:19 PM EDT 03/21/2025 1:19 PM EDT Narrative [facility] - 03/21/2025 3:03 PM EDT Therapeutic decision making should be based on absolute values, rather than percentages. Zulay Syed APRN LAB BLOOD ORDERABLES Final R esult Performing Organization Address City/[facility]/ZIP Co de Phone Number [facility] [address] [place] [address] * Type and screen (03/21/2025 1:19 PM [...] ORDERABL ES Final Result Performing Organization Address City/[facility]/ZIP Co de Phone Number [facility]OD [facility] [address] [place] [address], [place] * Protein, Random, Urine with Creatinine (03/21/2025 1:15 PM EDT) Protein, Urine <6 mg/dL 03/21/2025 2:55 PM EDT [facility] Creatinine, Urine 77 mg/dL 03/21/2025 2:55 PM EDT [facility] Protein/Creatin ine Ratio 03/21/2025 2:55 PM EDT [facility] Urine Urine specimen obtained by clean catch procedure / Unknown Non-blood Collection / Unknown 03/21/2025 1:15 PM EDT 03/21/2025 1:15 PM EDT Sonia Medley MD LAB URINE ORDERABLES Fin al Result [facility] [address] [place] [address] * (ABNORMAL) Urinalysis with reflex microscopic (Culture NOT Included) (03/21/2025 1:15 PM EDT) Color, Urine Yellow LAB URINALYSIS - AUTOMATED METHOD 03/21/2025 2:42 PM EDT [facility] Clarity, Urine Clear LAB URINALYSIS - AUTOMATED METHOD 03/21/2025 2:42 PM EDT [facility] Spec [place], Urine 1.023 1.005 - 1.030 LAB URINALYSIS - AUTOMATED METHOD 03/21/2025 2:42 PM EDT [facility] pH, Urine 7.0 5.0 - 8.0 LAB URINALYSIS - AUTOMATED METHOD 03/21/2025 2:42 PM EDT [facility] Protein, Urine Negative Negative mg/dL LAB URINALYSIS - AUTOMATED METHOD 03/21/2025 2:42 PM EDT [facility] Glucose, Urine >=1000(A) Negative mg/dL LAB URINALYSIS - AUTOMATED METHOD 03/21/2025 2:42 PM EDT [facility] Ketones, Urine Negative Negative mg/dL LAB URINALYSIS - AUTOMATED METHOD 03/21/2025 2:42 PM EDT [facility] Blood, Urine Negative Negative LAB URINALYSIS - AUTOMATED METHOD 03/21/2025 2:42 PM EDT [facility] Bilirubin, Urine Negative Negative LAB URINALYSIS - AUTOMATED METHOD 03/21/2025 2:42 PM EDT [facility] Urobilinogen, Urine 1.0 0.2 to 1.0 mg/dL LAB URINALYSIS - AUTOMATED METHOD 03/21/2025 2:42 PM EDT [facility] Leukocytes, Urine Negative Negative LAB URINALYSIS - AUTOMATED METHOD 03/21/2025 2:42 PM EDT [facility] Nitrite, Urine Negative Negative LAB URINALYSIS - AUTOMATED METHOD 03/21/2025 2:42 PM EDT [facility] Urine Urine specimen obtained by clean catch procedure / Unknown Non-blood Collection / Unknown 03/21/2025 1:15 PM EDT 03/21/2025 1:15 PM EDT Sonia Medley MD LAB URINE ORDERABLES Fin al Result Performing Organization Address City/State/[facility] Co de Phone Number [facility] [address] [place] [address] * (ABNORMAL) Hemoglobin A1c (02/17/2025 1:31 PM EDT) Hemoglobin A1c 7.2(H) <5.7 % 02/17/2025 4:41 PM EDT [facility] Blood Venous blood specimen / Unknown Venipuncture / Unknown 02/17/2025 1:31 PM EDT 02/17/2025 1:31 PM EDT Narrative [facility] - 02/17/2025 4:41 PM EDT HA1C Interpretive Data: Diagnosis of Diabetes: Diabetic > or = 6.5% Pre-diabetic 5.7 to 6.4% Non-diabetic < or = 5.6% Glycemic Targets for Type I and Type II Diabetics: Non- Adults <7.0% Adults <6.0% Children and Adolescents <7.5% Source: [place] [employer]. Standards of medical care in diabetes,2017. Diabetes Care.2017:40 (suppl 1):S1-S135. Musa Rosado MD LAB BLOOD ORDERABLES Final R esult [facility] [address] [place] [address] from Last 3 Months Additional Health Concerns Active Problems Noted Date Diagnosed Date Autogenerated Problem 02/17/2025 Insurance [facility] MEDICARE Advance Directives * Full Code (Latest Code Status on File) Date Activated Date Inactivated Comments 03/22/2025 3:49 PM 03/30/2025 1:44 PM Question Answer Comments Patient has decision-making capacity? Yes Care Teams Retail Parts Professional Relationship Specialty Start Date End Date David Iverson MD PCP - General 06/06/22 Ludin Gonzalez MD [facility] [place] [address] Referring Physician 02/18/25
--- OUTSIDE RECORDS SUMMARY | 2025-04-07 13:20 | XMS_ITS | Encounter Summary ---
Author Organization Healthcare Address [address] [place] [address] Care Team Providers Care Fire Boat Engineer Name Role Phone David Iverson MD Primary Care Provider [phone] Ludin Gonzalez MD Unavailable [phone] Encounter Details Date Type Department Care Team [...] any time in the past 12 m [facility], were you homeless or living in a [place] health [place] facility (including now)? No 03/23/2025 Utilities Answer Date [...] Description 04/14/2025 3:40 PM EDT Office Visit [facility] [address], [address] [place] [address] Musa Rosado MD [address] [place] [address] 06/13/2025 11:40 AM EDT Office Visit [facility] Nephrology, Bone & Mineral Metabolism [address], [address] [place] [address] Sonia Medley MD [address] [place] [address] documented as of this encounter Goals Goal Patient Goal Type Associated Problems Recent Progress Patient-Stated? 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 Syed, ENGINE LATHE OPERATOR documented as of this encounter Visit [...] documented as of this encounter Care Teams Fire Boat Engineer Relationship Specialty Start Date End Date David Iverson MD PCP - General 06/06/22 Ludin Gonzalez MD [address] [address] Referring Physician 02/18/25 documented as of this encounter
--- OUTSIDE RECORDS SUMMARY | 2025-04-07 13:21 | XMS_ITS | Encounter Summary ---
Author Organization Healthcare Address [address] [place] [address] Care Team Providers Care Vocational Training Director Name Role Phone David Iverson MD Primary Care Provider [phone] Ludin Gonzalez MD Unavailable [phone] Encounter Details Date Type Department Care Team [...] time in the past 12 m [facility], were you homeless or living in [...] Description 04/14/2025 3:40 PM EDT Office Visit [facility] [address], [address] [place] [address] Musa Rosado MD [address] [place] [address] 06/13/2025 11:40 AM EDT Office Visit [facility] Nephrology, Bone & Mineral Metabolism [address] [facility] [address], [address] [place] [address] Sonia Medley MD [address] [place] [address] documented as of this encounter Goals Goal Patient Goal Type Associated Problems Recent Progress Patient-Stated? 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 Syed, ECOLOGICAL ECONOMIST documented as of this encounter Visit Diagnoses [...] documented as of this encounter Care Teams Vocational Training Director Relationship Specialty Start Date End Date David Iverson MD PCP - General 06/06/22 Ludin Goznalez MD [address] [address] Referring Physician 02/18/25 documented as of this encounter
--- OUTSIDE RECORDS SUMMARY | 2025-04-07 13:21 | XMS_ITS | Encounter Summary ---
Author Organization Healthcare Address [address] [place] [address] Care Team Providers Care Manager Brand Name Role Phone David Iverson MD Primary Care Provider [phone] Ludin Gonzalez MD Unavailable [phone] Encounter Details Date Type Department Care Team [...] in the past 12 m [facility], were you homeless or living in a intermediate (including now)? No 03/23/2025 Utilities Answer Date [...] Description 04/14/2025 3:40 PM EDT Office Visit [facility] [address], [address] [place] [address] Musa Rosado MD [address] [place] [address] 06/13/2025 11:40 AM EDT Office Visit [facility] Nephrology, Bone & Mineral Metabolism [address], [address] [place] [address] Sonia Medley MD [address] [place] [address] documented as of this encounter Goals Goal Patient Goal Type Associated Problems Recent Progress Patient-Stated? 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 Syed, PRACTICE DIRECTOR documented as of this encounter Visit Diagnoses [...] as of this encounter Care Teams Manager Brand Relationship Specialty Start Date End Date David Iverson MD PCP - General 06/06/22 Ludin Gonzalez MD [address] [place] [id number] Referring Physician 02/18/25 documented as of this encounter
--- OUTSIDE RECORDS SUMMARY | 2025-04-07 13:21 | XMS_ITS | Encounter Summary ---
Author Organization Healthcare Address [address] [place] [id number] Care Team Providers Care Riveting Machine Operator Tape Control Name Role Phone David Iverson MD Primary Care Provider [phone] Ludin Gonzalez MD Unavailable [phone] Encounter Details Date Type Department Care Team [...] Description 04/14/2025 3:40 PM EDT Office Visit [facility] [address], [address] [place] [address] Musa Rosado MD [address] [place] [address] 06/13/2025 11:40 AM EDT Office Visit [facility] Nephrology, Bone & Mineral Metabolism [address] [facility], [address] [place] [address] Sonia Medley MD [address] [place] [address] documented as of this encounter Goals Goal Patient Goal Type Associated Problems Recent Progress Patient-Stated? 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 Syed, HELICOPTER PILOT documented as of this encounter Visit Diagnoses [...] documented as of this encounter Care Teams Riveting Machine Operator Tape Control Relationship Specialty Start Date End Date David Iverson MD PCP - General 06/06/22 Ludin Gonzalez MD [address] [place] [id number] Referring Physician 02/18/25 documented as of this encounter
--- OUTSIDE RECORDS SUMMARY | 2025-04-07 13:21 | XMS_ITS | Encounter Summary ---
Author Organization Healthcare Address [address] [place] [address] Care Team Providers Care Produce Inspector Name Role Phone David Iverson MD Primary Care Provider [phone] Ludin Gonzalez MD Unavailable [phone] Encounter Details Date Type Department Care Team [...] any time in the past 12 m [facility], were you homeless or living in a detention (including now)? No 03/23/2025 Utilities Answer Date [...] Office Visit [place] [facility] [address], [address] [place] [address] Musa Rosado MD [address] [place] [address] 06/13/2025 11:40 AM EDT Office Visit [facility] Nephrology, Bone & Mineral Metabolism [address], [address] [place] [address] Sonia Medley MD [address] [facility] [address] [place] [address] documented as of this encounter Goals Goal Patient Goal Type Associated Problems Recent Progress Patient-Stated? 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 Syed, IT GENERALIST documented as of this encounter Visit Diagnoses [...] documented as of this encounter Care Teams Produce Inspector Relationship Specialty Start Date End Date David Iverson MD PCP - General 06/06/22 Ludin Gonzalez MD [address] [place] [address] Referring Physician 02/18/25 documented as of this encounter
--- OUTSIDE RECORDS SUMMARY | 2025-04-07 13:21 | XMS_ITS | Encounter Summary ---
Author Organization Healthcare Address [address] [place] [address] Care Team Providers Care Sales Account Representative Name Role Phone David Iverson MD Primary Care Provider [phone] Ludin Gonzalez MD Unavailable [phone] Encounter Details Date Type Department Care Team [...] any time in the past 12 m [facility], were you homeless or living in [...] Description 04/14/2025 3:40 PM EDT Office Visit [facility] [address], [address] [place] [address] Musa Rosado MD [address] [place] [address] 06/13/2025 11:40 AM EDT Office Visit [facility] [place] Nephrology, Bone & Mineral Metabolism [address] [facility], [address] [place] [address] Sonia Medley MD [address] [place] [address] documented as of this encounter Goals Goal Patient Goal Type Associated Problems Recent Progress Patient-Stated? 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 Syed, SALESFORCE TRAINER documented as of this encounter Visit Diagnoses [...] as of this encounter Care Teams Sales Account Representative Relationship Specialty Start Date End Date David Iverson MD PCP - General 06/06/22 Ludin Gonzalez MD [address] [address] Referring Physician 02/18/25 documented as of this encounter
--- OUTSIDE RECORDS SUMMARY | 2025-04-07 13:21 | XMS_ITS | Encounter Summary ---
Author Organization Healthcare Address [address] [place] [address] Care Team Providers Care Wind Turbine Design Engineer Name Role Phone David Iverson MD Primary Care Provider [phone] Ludin Gonzalez MD Unavailable [phone] Encounter Details Date Type Department Care Team ([facility] Contact Info) Description 04/04/2025 Telephone [facility] A Inpatient [address] [place] [id number] Mikayla Leung CV TELE-PROGRESSIVE Social History Tobacco [...] any time in the past 12 m [facility], were you homeless or living in a custodial (including now)? No 03/23/2025 Utilities Answer Date [...] Office Visit [place] [facility] [address], [address] [place] [address] Musa Rosado MD [address] [place] [address] 06/13/2025 11:40 AM EDT Office Visit [facility] Nephrology, Bone & Mineral Metabolism [address] [facility], [address] [place] [address] Sonia Medley MD [address] [place] [address] documented as of this encounter Goals Goal Patient Goal Type Associated Problems Recent Progress Patient-Stated? 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 Syed, DRY PAN FEEDER documented as of this encounter Visit Diagnoses [...] documented as of this encounter Care Teams Wind Turbine Design Engineer Relationship Specialty Start Date End Date David Iverson MD PCP - General 06/06/22 Ludin Gonzalez MD [address] [place], [place] [id number] Referring Physician 02/18/25 documented as of this encounter
--- OUTSIDE RECORDS SUMMARY | 2025-04-07 13:22 | XMS_ITS | Encounter Summary ---
Author Organization Healthcare Address [address] [place] [address] Care Team Providers Care Die Cutter Apprentice Name Role Phone David Iverson MD Primary Care Provider [phone] Ludni Gonzalez MD Unavailable [phone] Encounter Details Date Type Department Care Team [...] any time in the past 12 m [facility], were you homeless or living in a [...] Office Visit [place] [facility] [address], [address] [place] [address] Musa Rosado MD [address] [place] [address] 06/13/2025 11:40 AM EDT Office Visit [facility] Nephrology, Bone & Mineral Metabolism [address] [facility], [address] [place] [address] Sonia Medley MD [address] [facility] [address] [place] [address] documented as of this encounter Goals Goal Patient Goal Type Associated Problems Recent Progress Patient-Stated? 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 Syed, PHONE TECHNICIAN documented as of this encounter Visit [...] documented as of this encounter Care Teams Die Cutter Apprentice Relationship Specialty Start Date End Date David Iverson MD PCP - General 06/06/22 Ludin Gonzalez MD [address] [address] Referring Physician 02/18/25 documented as of this encounter
--- OUTSIDE RECORDS SUMMARY | 2025-04-07 13:22 | XMS_ITS | Encounter Summary ---
Author Organization Healthcare Address [address] [place] [address] Care Team Providers Care Manager Game Name Role Phone David Iverson MD Primary Care Provider Ludin Gonzalez MD Unavailable [phone] Encounter Details Date Type Department Care Team [...] any time in the past 12 m [facility], were you homeless or living in a [...] Description 04/14/2025 3:40 PM EDT Office Visit [facility] [address], [address] [place] [address] Musa Rosado MD [address] [place] [address] 06/13/2025 11:40 AM EDT Office Visit [facility] [place] Nephrology, Bone & Mineral Metabolism [address] [facility], [address] [place] [address] Sonia Medley MD [address] [place] [address] documented as of this encounter Goals Goal Patient Goal Type Associated Problems Recent Progress Patient-Stated? 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 Syed, MACHINE BASTER documented as of this encounter Visit Diagnoses [...] as of this encounter Care Teams Manager Game Relationship Specialty Start Date End Date David Iverson MD PCP - General 06/06/22 Ludin Gonzalez MD [address] [address] Referring Physician 02/18/25 documented as of this encounter
--- OUTSIDE RECORDS SUMMARY | 2025-04-07 13:22 | XMS_ITS | Encounter Summary ---
Author Organization Healthcare Address [address] [place] [address] Care Team Providers Care Candy Separator Enrobing Name Role Phone David Iverson MD Primary Care Provider [phone] Ludin Gonzalez MD Unavailable [phone] Encounter Details Date Type Department Care Team [...] Office Visit [facility] [address], [address] [place] [address] Musa Rosado MD [address] [place] [address] 06/13/2025 11:40 AM EDT Office Visit [facility] Mineral Metabolism [address], [address] [place] [address] Sonia Medley MD [address] [facility] [address] [place] [address] documented as of this encounter Goals Goal Patient Goal Type Associated Problems Recent Progress Patient-Stated? 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 Syed, HAND UPPER AND BOTTOM LACER documented as of this encounter Visit Diagnoses [...] documented as of this encounter Care Teams Candy Separator Enrobing Relationship Specialty Start Date End Date David Iverson MD PCP - General 06/06/22 Ludin Gonzalez MD [address] [place] [address] Referring Physician 02/18/25 documented as of this encounter
--- OUTSIDE RECORDS SUMMARY | 2025-04-07 13:23 | XMS_ITS | Encounter Summary ---
Author Organization [facility] Address [address] [id number] Care Team Providers Care Wood Boring Machine Operator Name Role Phone David Iverson MD Primary Care Provider [phone] Ludin Gonzalez MD Unavailable [phone] Encounter Details Date Type Department Care Team ([facility] Contact Info) Description 03/10/2025 [facility] Nephrology, Bone & Mineral Metabolism [address] [facility], [address] [place] [address] [facility] [address] [place] [address] Social History Tobacco Use Types Packs/Day Years [...] Upcoming Encounters Date Type Department Care Team ([facility] Contact Info) Description 04/14/2025 3:40 PM EDT Office Visit [place] [facility] [address], [address] [place] [address] Musa Rosado MD [address] [place] [address] 06/13/2025 11:40 AM EDT Office Visit [facility], Bone & Mineral Metabolism [address], [address] [place] [address] Sonia Medley MD [address] [place] [address] documented as of this encounter Goals Goal Patient Goal Type Associated Problems Recent Progress Patient-Stated? 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 Syed, INJECTION MOLDING OPERATOR documented as of this encounter Visit [...] documented as of this encounter Care Teams Wood Boring Machine Operator Relationship Specialty Start Date End Date David Iverson MD PCP - General 06/06/22 Ludin Gonzalez MD [address] [address] Referring Physician 02/18/25 documented as of this encounter
--- OUTSIDE RECORDS SUMMARY | 2025-04-07 13:23 | XMS_ITS | Encounter Summary ---
Author Organization Healthcare Address [address] [place] [address] Care Team Providers Care General Internist And Physician Leader Name Role Phone David Iverson MD Primary Care Provider [phone] Ludin Gonzalez MD Unavailable [phone] Encounter Details Date Type Department Care Team [...] Description 04/14/2025 3:40 PM EDT Office Visit [facility] [address], [facility] [address] [place] [address] Musa Rosado MD [address] [place] [address] 06/13/2025 11:40 AM EDT Office Visit Professional [facility] Nephrology, Bone & Mineral Metabolism [address] [facility], [address] [place] [address] Sonia Medley MD [address] [address] documented as of this encounter Goals Goal Patient Goal Type Associated Problems Recent Progress Patient-Stated? 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 Syed, PROGRAM PROPOSALS COORDINATOR documented as of this encounter Visit [...] documented as of this encounter Care Teams General Internist And Physician Leader Relationship Specialty Start Date End Date David Iverson MD PCP - General 06/06/22 Ludin Gonzalez MD [address] [place] [address] Referring Physician 02/18/25 documented as of this encounter
--- OUTSIDE RECORDS SUMMARY | 2025-04-07 13:23 | XMS_ITS | Encounter Summary ---
Author Organization [facility] Address [address] [place] [address] Care Team Providers Care Consulting Utility Forester Name Role Phone David Iverson MD Primary Care Provider [phone] Encounter Details Date Type Department Care Team (Late Contact Info) Description 02/17/2025 Orders Only [facility] Cardiothoracic [address], [address] [place] [address] Musa Rosado MD [address] [facility] [address] [place] [address] Coronary artery disease involving sitka heart without angina pectoris, unspecified vessel or [...] Description 04/14/2025 3:40 PM EDT Office Visit [facility] Cardiothoracic [address], [address] [place] [address] Musa Rosado MD [address] [place] [address] 06/13/2025 11:40 AM EDT Office Visit [facility] [place] Nephrology, Bone & Mineral Metabolism [address], [address] [place] [address] Sonia Medley MD [address] [place] [address] documented as of this encounter Goals Goal Patient Goal Type Associated Problems Recent Progress Patient-Stated? 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 Syed, WARD ATTENDANT documented as of this encounter Results * (ABNORMAL) Hemoglobin A1c (02/17/2025 1:31 PM EDT) Hemoglobin A1c 7.2(H) <5.7 % 02/17/2025 4:41 PM EDT [facility] Blood Venous blood specimen / Unknown Venipuncture / Unknown 02/17/2025 1:31 PM EDT 02/17/2025 1:31 PM EDT Narrative [facility] - 02/17/2025 4:41 PM EDT HA1C Interpretive Data: Diagnosis of Diabetes: Diabetic > or = 6.5% Pre-diabetic 5.7 to 6.4% Non-diabetic < or = 5.6% Glycemic Targets for Type I and Type II Diabetics: Non- Adults <7.0% Adults <6.0% Children and Adolescents <7.5% Source: [place] [employer]. Standards of medical care in diabetes,2017. Diabetes Care.2017:40 (suppl 1):S1-S135. us Musa Rosado MD LAB BLOOD ORDERABLES Final R esult [facility] [address] [place] [address] * APTT (02/17/2025 1:31 PM EDT) aPTT 25 25 - 35 sec LAB COAGULATION METHOD 02/17/2025 2:47 PM EDT [facility] Blood Venous blood specimen / Unknown Venipuncture / Unknown 02/17/2025 1:31 PM EDT 02/17/2025 1:31 PM EDT Musa Rosado MD LAB BLOOD ORDERABLES Final R esult Performing Organization Address [facility]/ZIP Co de Phone Number [facility] [address] [place] [address] * Protime-INR (02/17/2025 1:31 PM EDT) Prothrombin Time 14.0 12.0 - 14.3 sec LAB COAGULATION METHOD 02/17/2025 2:47 PM EDT [facility] INR 1.1 0.9 - 1.1 LAB COAGULATION METHOD 02/17/2025 2:47 PM EDT [facility] Blood Venous blood specimen / Unknown Venipuncture / Unknown 02/17/2025 1:31 PM EDT 02/17/2025 1:31 PM EDT Narrative [facility] - 02/17/2025 2:47 PM EDT OPTIMAL INR RANGES FOR PATIENT ON ORAL ANTICOAGULANT THERAPY Prevention of venous thromboembolism INR 2.0 to 3.0 In patients with heart disease: Atrial fibrillation INR 2.0 to 3.0 Valvular heart disease INR 2.0 to 3.0 Tissue heart valves INR 2.0 to 3.0 Mechanical prosthetic valves INR 2.5 to 3.5 Prevention of recurrent DE INR 2.5 to 3.5 us Musa Rosado MD LAB BLOOD ORDERABLES Final R esult Performing Organization Address City/[facility]/ZIP Co de Phone Number [facility] [address] [place] [address] * CBC (02/17/2025 1:31 PM EDT) WBC Count 8.03 3.70 - 10.30 10*3/uL LAB HEMATOLOGY METHOD 02/17/2025 2:58 PM EDT [facility] RBC Count 5.14 4.60 - 6.10 10*6/uL LAB HEMATOLOGY METHOD 02/17/2025 2:58 PM EDT [facility] HGB 15.3 13.7 - 17.5 g/dL LAB HEMATOLOGY METHOD 02/17/2025 2:58 PM EDT [facility] HCT 45.7 40.0 - 51.0 % LAB HEMATOLOGY METHOD 02/17/2025 2:58 PM EDT [facility] Platelet Count 217 155 - 369 10*3/uL LAB HEMATOLOGY METHOD 02/17/2025 2:58 PM EDT [facility] MCV 89 79 - 98 fL LAB HEMATOLOGY METHOD 02/17/2025 2:58 PM EDT [facility] MCH 29.8 26.0 - 32.0 pg LAB HEMATOLOGY METHOD 02/17/2025 2:58 PM EDT [facility] MCHC 33.5 30.7 - 35.5 g/dL LAB HEMATOLOGY METHOD 02/17/2025 2:58 PM EDT [facility] RDW 13.3 11.5 - 14.5 % LAB HEMATOLOGY METHOD 02/17/2025 2:58 PM EDT [facility] MPV 11.2 8.8 - 12.5 fL LAB HEMATOLOGY METHOD 02/17/2025 2:58 PM EDT [facility] nRBC 0.0 <=0.0 per 100 WBCs LAB HEMATOLOGY METHOD 02/17/2025 2:58 PM EDT [facility] Blood Venous blood specimen / Unknown Venipuncture / Unknown 02/17/2025 1:31 PM EDT 02/17/2025 1:31 PM EDT us Musa Rosado MD LAB BLOOD ORDERABLES Final R esult [facility] [address] [place] [address] * (ABNORMAL) Comprehensive Metabolic Panel, Plasma (02/17/2025 1:31 PM EDT) Glucose, Plasma 196(H) 74 - 99 mg/dL 02/17/2025 3:07 PM EDT [facility] BUN, Plasma 24(H) 7 - 21 mg/dL 02/17/2025 3:07 PM EDT [facility] Creatinine, Plasma 1.46(H) 0.70 - 1.20 mg/dL 02/17/2025 3:07 PM EDT [facility] BUN/Creatinine Ratio 16 02/17/2025 3:07 PM EDT [facility] Sodium, Plasma 136 136 - 145 mmol/L 02/17/2025 3:07 PM EDT [facility] Potassium, Plasma 4.1 3.6 - 4.9 mmol/L 02/17/2025 3:07 PM EDT [facility] Chloride, Plasma 100 97 - 107 mmol/L 02/17/2025 3:07 PM EDT [facility] CO2, Plasma 25 22 - 29 mmol/L 02/17/2025 3:07 PM EDT [facility] Anion Gap 11 6 - 16 mmol/L 02/17/2025 3:07 PM EDT [facility] Total Calcium, Plasma 9.6 8.9 - 10.2 mg/dL 02/17/2025 3:07 PM EDT [facility] Total Protein 7.6 6.3 - 7.9 g/dL 02/17/2025 3:07 PM EDT [facility] Albumin, Plasma 4.6 3.5 - 5.2 g/dL 02/17/2025 3:07 PM EDT [facility] AST, Plasma 16 10 - 50 U/L 02/17/2025 3:07 PM EDT [facility] ALT, Plasma 25 10 - 50 U/L 02/17/2025 3:07 PM EDT [facility] Alkaline Phosphatase, Plasma 45 40 - 115 U/L 02/17/2025 3:07 PM EDT [facility] Total Bilirubin, Plasma 0.6 0.2 - 1.1 mg/dL 02/17/2025 3:07 PM EDT [facility] eGFRcr 60.8 mL/min/1.7 3m*2 02/17/2025 3:07 PM EDT [facility] Comment:Reported eGFRcr in m L/min/1.73m2 is based the CKD-EPI 2020 equation that does not use a race coefficient. Blood Venous blood specimen / Unknown Venipuncture / Unknown 02/17/2025 1:31 PM EDT 02/17/2025 1:31 PM EDT us Musa Rosado MD LAB BLOOD ORDERABLES Final R esult [facility] [address] [place] [address] documented in this encounter Visit Diagnoses Diagnosis Coronary artery disease involving sitka heart without angina pectoris, unspecified vessel or [...] documented as of this encounter Care Teams Consulting Utility Forester Relationship Specialty Start Date End Date David Iverson MD PCP - General 06/06/22 documented as of this encounter
--- OUTSIDE RECORDS SUMMARY | 2025-04-07 13:23 | XMS_ITS | Encounter Summary ---
Author Organization Healthcare Address [address] [place] [address] Care Team Providers Care Tree Trimmer Helper Name Role Phone David Iverson MD Primary Care Provider [phone] Encounter Details Date Type Department Care Team [...] Office Visit [place] [facility] [address], [address] [place] [address] Musa Rosado MD [address] [facility] [address] [place] [address] 06/13/2025 11:40 AM EDT Office Visit [facility] Nephrology, Bone & Mineral Metabolism [address] [facility], [address] [place] [address] Sonia Medley MD [address] [address] documented as of this encounter Goals Goal Patient Goal Type Associated Problems Recent Progress Patient-Stated? 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 Syed, DIRECTOR OF SUPPLY CHAIN documented as of this encounter Visit Diagnoses [...] documented as of this encounter Care Teams Tree Trimmer Helper Relationship Specialty Start Date End Date David Iverson MD PCP - General 06/06/22 documented as of this encounter
--- OUTSIDE RECORDS SUMMARY | 2025-04-07 13:23 | XMS_ITS | Encounter Summary ---
Author Organization Healthcare Address [address] [place] [address] Care Team Providers Care Leather Heel Breaster Name Role Phone David Iverson MD Primary Care Provider [phone] Ludin Gonzalez MD Unavailable [phone] Encounter Details Date Type Department Care Team [...] Office Visit [facility] [address], [facility] [address] [place] [address] Musa Rosado MD [address] [place] [address] 06/13/2025 11:40 AM EDT Office Visit [facility] Nephrology, Bone & Mineral Metabolism [address] [facility], [address] [place] [address] Sonia Medley MD [address] [address] documented as of this encounter Goals Goal Patient Goal Type Associated Problems Recent Progress Patient-Stated? 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 Syed, INSULATION CUTTER AND FORMER documented as of this encounter Visit Diagnoses [...] documented as of this encounter Care Teams Leather Heel Breaster Relationship Specialty Start Date End Date David Iverson MD PCP - General 06/06/22 Ludin Gonzalez MD [address] [place] [address] Referring Physician 02/18/25 documented as of this encounter
--- NOTE | 2025-04-07 13:30 | CT_ITS ---
PROCEDURE INFORMATION: Exam: CTA Chest With Contrast Exam date and time: 04/07/2025 2:05 PM Age: 45 years old Clinical indication: Pain; Right-sided; Prior surgery; Surgery date: <1 month; Surgery type: Open heart 2 weeks ago; Additional info: SOB TECHNIQUE: Imaging protocol: Computed tomographic angiography of the chest with contrast. Exam focused on the arteries. 3D rendering (Not supervised by radiologist): MIP and/or 3D reconstructed images were created by the technologist. Radiation optimization: All CT scans at this facility use at least one of these dose optimization techniques: automated exposure control; mA and/or kV adjustment per patient size (includes targeted exams where dose is matched to clinical indication); or iterative reconstruction. Contrast material: ISO 370; Contrast volume: 70 ml; Contrast route: INTRAVENOUS (IV); COMPARISON: CR XR CHEST PORTABLE 02/11/2025 8:58 AM FINDINGS: Pulmonary arteries: No evidence of pulmonary embolism. Aorta: No aortic aneurysm. Lungs: Segmental and/or subsegmental atelectasis/scarring in the bilateral lower lobes, lingula and right middle lobe. No evidence of airspace infiltrate or pulmonary edema. Central airways are clear. Pleural spaces: Trace bilateral pleural effusions, right greater than left. No pneumothorax. Heart: Heart is upper limits of normal in size. Small amount of pericardial fluid noted. No circumferential pericardial effusion. Coronary arteries: Post-operative changes compatible with recent CABG. Lymph nodes: Unremarkable. Bones/joints: Status post median sternotomy. Sternotomy wires are intact. No evidence of osteolysis/dehiscence. No evidence of acute osseous abnormality in the chest, noting that the lower ribcage is incompletely imaged. Soft tissues: Healing incision noted in the anterior chest wall. No focal fluid collection. IMPRESSION: 1. Expected post-operative changes of recent CABG with no evidence complication. 2. Trace bilateral pleural effusions, right greater than left.
[2025-04-07] MEDS: SODIUM CHLORIDE 0.9% 10ML SYR (RAD ONLY) 10 ML IV (14:17)
[2025-04-07] MEDS: 0.9 % SODIUM CHLORIDE 50 ML VIAL 10 ML IV (14:17)
[2025-04-07] MEDS: IOPAMIDOL-370 (76%);100ML BOTTLE 70 ML IV (14:17)
== END 2025-04-07 23:59 | disposition home or self-care (01) ==
LOC: RAD 13:16
PROVIDERS: PCP Family Medicine; Visit Provider Internal Medicine
DX: I20.89 Other forms of angina pectoris (principal); R94.39 Abnormal result of other cardiovascular function study; R93.1 Abnormal findings on diagnostic imaging of heart and coronary circulation; I10 Essential (primary) hypertension; I48.91 Unspecified atrial fibrillation; Z98.890 Other specified postprocedural states; Z95.1 Presence of aortocoronary bypass graft
CPT/HCPCS: 71275; Q9967

== ENCOUNTER 2025-04-17 21:35 | Emergency (ER) | payer MEDICARE, MEDICAID, SELFPAY ==
--- OUTSIDE RECORDS SUMMARY | 2025-02-17 11:40 | XMS_ITS | Encounter Summary ---
Author Organization Healthcare Address [address] [place] [address] Care Team Providers Care Hog Worker Name Role Phone David Iverson MD Primary Care Provider [phone] Ludin Gonzalez MD Unavailable [phone] Encounter Details Date Type Department Care Team (Late st Contact Info) Description 02/17/2025 11:40 AM EDT [facility] [address], [address] [place] [address] Musa Rosado MD [address] [place] [address] Coronary artery disease due to [...] Notes * Progress Notes - Zulay Syed, TUCKPOINTER - 02/17/2025 11:40 AM EDT Reason for [...] kidney disease, with long-term current use of insulin([facility]) 01/14/2022 Medical History: Past Medical History: Diagnosis [...] Yes Chavez Lambert MD Easy Touch Pen [place] 31G X 8 MM misc 04/18/23 Yes [...] first diagonal artery and large first septal bessemer converter operator. There is additional 30% distal stenosis. The [...] by Dr. Gonzalez in regards to recent [facility] with results indicating multi-vessel coronary artery disease. [...] Care Team (Late st Contact Info) Description 06/13/2025 11:40 AM EDT Office Visit [facility] Nephrology, Bone & Mineral Metabolism [address], [address] [place] [address] Sonia Medley MD [address] [place] [address] documented as of this encounter Goals Goal Patient Goal Type Associated Problems Recent Progress Patient-Stated? 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 Syed, TUCKPOINTER documented as of this encounter Results * [...] signing this report, I, the attending physician, pete I have personally reviewed the images/data for [...] BLOOD BANK TEST ORDERABL ES Final Result Performing Organization Address [facility]ZIP Co de Phone Number BLOOD BANK [address] [place] [address], [place] * APTT (03/21/2025 1:19 PM EDT) aPTT 28 25 - 35 sec LAB COAGULATION METHOD 03/21/2025 2:51 PM EDT [facility] Blood Venous blood specimen / Unknown Venipuncture / Unknown 03/21/2025 1:19 PM EDT 03/21/2025 1:19 PM EDT Zulay Syed APRN LAB BLOOD ORDERABLES Final R esult [facility] [address] [place] [address] * Protime-INR (03/21/2025 1:19 PM EDT) Prothrombin Time 13.7 12.0 - 14.3 sec LAB COAGULATION METHOD 03/21/2025 2:51 PM EDT [facility] INR 1.0 0.9 - 1.1 LAB COAGULATION METHOD 03/21/2025 2:51 PM EDT [facility] Blood Venous blood specimen / Unknown Venipuncture / Unknown 03/21/2025 1:19 PM EDT 03/21/2025 1:19 PM EDT Narrative [facility] - 03/21/2025 2:51 PM EDT OPTIMAL INR RANGES FOR PATIENT ON ORAL ANTICOAGULANT THERAPY Prevention of venous thromboembolism INR 2.0 to 3.0 In patients with heart disease: Atrial fibrillation INR 2.0 to 3.0 Valvular heart disease INR 2.0 to 3.0 Tissue heart valves INR 2.0 to 3.0 Mechanical prosthetic valves INR 2.5 to 3.5 Prevention of recurrent NE INR 2.5 to 3.5 Zulay Syed APRN LAB BLOOD ORDERABLES Final R esult [facility] [address] [place] [address] * (ABNORMAL) Comprehensive metabolic panel (03/21/2025 1:19 PM EDT) Glucose, Plasma 155(H) 74 - 99 mg/dL 03/21/2025 2:49 PM EDT [facility] BUN, Plasma 21 7 - 21 mg/dL 03/21/2025 2:49 PM EDT [facility] Creatinine, Plasma 1.35(H) 0.70 - 1.20 mg/dL 03/21/2025 2:49 PM EDT [facility] BUN/Creatinine Ratio 16 03/21/2025 2:49 PM EDT [facility] Sodium, Plasma 139 136 - 145 mmol/L 03/21/2025 2:49 PM EDT [facility] Potassium, Plasma 4.1 3.6 - 4.9 mmol/L 03/21/2025 2:49 PM EDT [facility] Chloride, Plasma 103 97 - 107 mmol/L 03/21/2025 2:49 PM EDT [facility] CO2, Plasma 25 22 - 29 mmol/L 03/21/2025 2:49 PM EDT [facility] Anion Gap 11 6 - 16 mmol/L 03/21/2025 2:49 PM EDT [facility] Total Calcium, Plasma 9.6 8.9 - 10.2 mg/dL 03/21/2025 2:49 PM EDT [facility] Total Protein 7.2 6.3 - 7.9 g/dL 03/21/2025 2:49 PM EDT [facility] Albumin, Plasma 4.5 3.5 - 5.2 g/dL 03/21/2025 2:49 PM EDT [facility] AST, Plasma 19 10 - 50 U/L 03/21/2025 2:49 PM EDT [facility] ALT, Plasma 24 10 - 50 U/L 03/21/2025 2:49 PM EDT [facility] Alkaline Phosphatase, Plasma 41 40 - 115 U/L 03/21/2025 2:49 PM EDT [facility] Total Bilirubin, Plasma 0.5 0.2 - 1.1 mg/dL 03/21/2025 2:49 PM EDT [facility] eGFRcr 66.8 mL/min/1.7 3m*2 03/21/2025 2:49 PM EDT [facility] Comment:Reported eGFRcr in m L/min/1.73m2 is based the CKD-EPI 2020 equation that does not use a race coefficient. Blood Venous blood specimen / Unknown Venipuncture / Unknown 03/21/2025 1:19 PM EDT 03/21/2025 1:19 PM EDT us Zulay Syed APRN LAB BLOOD ORDERABLES Final R esult [facility] [address] [place] [address] * CBC and Differential (03/21/2025 1:19 PM EDT) WBC Count 6.31 3.70 - 10.30 10*3/uL LAB HEMATOLOGY METHOD 03/21/2025 3:03 PM EDT [facility] RBC Count 4.75 4.60 - 6.10 10*6/uL LAB HEMATOLOGY METHOD 03/21/2025 3:03 PM EDT [facility] HGB 14.2 13.7 - 17.5 g/dL LAB HEMATOLOGY METHOD 03/21/2025 3:03 PM EDT [facility] HCT 42.9 40.0 - 51.0 % LAB HEMATOLOGY METHOD 03/21/2025 3:03 PM EDT [facility] Platelet Count 214 155 - 369 10*3/uL LAB HEMATOLOGY METHOD 03/21/2025 3:03 PM EDT [facility] MCV 90 79 - 98 fL LAB HEMATOLOGY METHOD 03/21/2025 3:03 PM EDT [facility] MCH 29.9 26.0 - 32.0 pg LAB HEMATOLOGY METHOD 03/21/2025 3:03 PM EDT [facility] MCHC 33.1 30.7 - 35.5 g/dL LAB HEMATOLOGY METHOD 03/21/2025 3:03 PM EDT [facility] RDW 13.2 11.5 - 14.5 % LAB HEMATOLOGY METHOD 03/21/2025 3:03 PM EDT [facility] MPV 11.6 8.8 - 12.5 fL LAB HEMATOLOGY METHOD 03/21/2025 3:03 PM EDT [facility] nRBC 0.0 <=0.0 per 100 WBCs LAB HEMATOLOGY METHOD 03/21/2025 3:03 PM EDT [facility] Differential Type Automated LAB HEMATOLOGY METHOD 03/21/2025 3:03 PM EDT [facility] Neutrophils % 61 % LAB HEMATOLOGY METHOD 03/21/2025 3:03 PM EDT [facility] Lymphocytes % 29 % LAB HEMATOLOGY METHOD 03/21/2025 3:03 PM EDT [facility] Monocytes % 7 % LAB HEMATOLOGY METHOD 03/21/2025 3:03 PM EDT [facility] Eosinophils % 2 % LAB HEMATOLOGY METHOD 03/21/2025 3:03 PM EDT [facility] Basophils % 1 % LAB HEMATOLOGY METHOD 03/21/2025 3:03 PM EDT [facility] Immature Granulocytes % 0 % LAB HEMATOLOGY METHOD 03/21/2025 3:03 PM EDT [facility] Neutrophils Absolute 3.84 1.60 - 6.10 10*3/uL LAB HEMATOLOGY METHOD 03/21/2025 3:03 PM EDT [facility] Lymphocytes Absolute 1.81 1.20 - 3.90 10*3/uL LAB HEMATOLOGY METHOD 03/21/2025 3:03 PM EDT [facility] Monocytes Absolute 0.46 0.30 - 0.90 10*3/uL LAB HEMATOLOGY METHOD 03/21/2025 3:03 PM EDT [facility] Eosinophils Absolute 0.13 0.00 - 0.50 10*3/uL LAB HEMATOLOGY METHOD 03/21/2025 3:03 PM EDT [facility] Basophils Absolute 0.05 0.00 - 0.10 10*3/uL LAB HEMATOLOGY METHOD 03/21/2025 3:03 PM EDT [facility] Immature Granulocytes Absolute 0.02 0.00 - 0.06 10*3/uL LAB HEMATOLOGY METHOD 03/21/2025 3:03 PM EDT [facility] Blood Venous blood specimen / Unknown Venipuncture / Unknown 03/21/2025 1:19 PM EDT 03/21/2025 1:19 PM EDT Narrative [facility] - 03/21/2025 3:03 PM EDT Therapeutic decision making should be based on absolute values, rather than percentages. us Zulay Syed APRN LAB BLOOD ORDERABLES Final R esult [facility] [address] [place] [address] documented in this encounter Visit Diagnoses Diagnosis [...] documented as of this encounter Care Teams Hog Worker Relationship Specialty Start Date End Date David Iverson MD PCP - General 06/06/22 Ludin Gonzalez MD [address] [place] [address] Referring Physician 02/18/25 documented as of this encounter
--- OUTSIDE RECORDS SUMMARY | 2025-03-14 11:40 | XMS_ITS | Encounter Summary ---
Author Organization Healthcare Address [address] [place] [address] Care Team Providers Care Crew Team Member Name Role Phone David Iverson MD Primary Care Provider [phone] Ludin Gonzalez MD Unavailable [phone] Reason for Referral * Consultation (Routine) - Authorized Specialty Diagnoses / Procedures Referred By Contac t Referred To Contact Diagnoses Stage 3 chronic kidney disease, unspecified whether stage 3a or 3b CKD (CMS/HCC) Sonia Medley MD [address] [place] [phone] Phone: tel: fax: Referral ID Status Reason Start Date Expiration Date V isits Requested Visits Authorized [id number] Authorized 03/14/2025 09/13/2026 1 1 Reason for Visit * Reason Comments Follow-up Encounter Details Date Type Department Care Team ([facility] st Contact Info) Description 03/14/2025 11:40 AM EDT Office Visit [facility] Nephrology, Bone & Mineral Metabolism [address] , [address] [place] [address] Sonia Medley MD [address] [place] [address] Stage 3 chronic kidney disease, [...] Expiration Date: 09/13/2026 [facility] Protein, Random, Urine with Creatinine Standing Status: Future Expected Date: 03/14/2025 Expiration Date: 09/13/2026 [facility] Urinalysis with reflex microscopic (Culture NOT Included) Standing Status: Future Expected Date: 03/14/2025 Expiration Date: 09/13/2026 [facility] CBC W/O Differential Standing Status: Future Expected Date: 03/14/2025 Expiration Date: 09/13/2026 [facility] Renal Function Panel, Plasma Standing Status: Future Expected Date: 03/14/2025 Expiration Date: 09/13/2026 [facility] Follow Up Nephrology Standing Status: [...] Upcoming Encounters Date Type Department Care Team ([facility] st Contact Info) Description 06/13/2025 11:40 AM EDT Office Visit [facility] Nephrology, Bone & Mineral Metabolism [address] [facility], [address] [place] [address] Sonia Medley MD [address] [address] Scheduled Referrals Name Type Priority Associated Diagnoses Orde r Schedule Follow Up Nephrology Outpatient Referral Routine Stage 3 chronic kidney disease, unspecified whether stage 3a or 3b CKD (CMS/HCC) Expected: 06/14/2025 (Approximate), Expires: 04/13/2026 documented as of this encounter Goals Goal Patient Goal Type Associated Problems Recent Progress Patient-Stated? 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 Syed APRN documented as of this encounter Results * (ABNORMAL) Urinalysis with reflex microscopic (Culture NOT Included) (03/21/2025 1:15 PM EDT) Color, Urine Yellow LAB URINALYSIS - AUTOMATED METHOD 03/21/2025 2:42 PM EDT [facility] Clarity, Urine Clear LAB URINALYSIS - AUTOMATED METHOD 03/21/2025 2:42 PM EDT [facility] Spec [place], Urine 1.023 1.005 - 1.030 LAB URINALYSIS - AUTOMATED METHOD 03/21/2025 2:42 PM EDT [facility] pH, Urine 7.0 5.0 - 8.0 LAB URINALYSIS - AUTOMATED METHOD 03/21/2025 2:42 PM EDT [facility] Protein, Urine Negative Negative mg/dL LAB URINALYSIS - AUTOMATED METHOD 03/21/2025 2:42 PM EDT [facility] Glucose, Urine >=1000(A) Negative mg/dL LAB URINALYSIS - AUTOMATED METHOD 03/21/2025 2:42 PM EDT [facility] Ketones, Urine Negative Negative mg/dL LAB URINALYSIS - AUTOMATED METHOD 03/21/2025 2:42 PM EDT [facility] Blood, Urine Negative Negative LAB URINALYSIS - AUTOMATED METHOD 03/21/2025 2:42 PM EDT [facility] Bilirubin, Urine Negative Negative LAB URINALYSIS - AUTOMATED METHOD 03/21/2025 2:42 PM EDT [facility] Urobilinogen, Urine 1.0 0.2 to 1.0 mg/dL LAB URINALYSIS - AUTOMATED METHOD 03/21/2025 2:42 PM EDT [facility] Leukocytes, Urine Negative Negative LAB URINALYSIS - AUTOMATED METHOD 03/21/2025 2:42 PM EDT [facility] Nitrite, Urine Negative Negative LAB URINALYSIS - AUTOMATED METHOD 03/21/2025 2:42 PM EDT [facility] Urine Urine specimen obtained by clean catch procedure / Unknown Non-blood Collection / Unknown 03/21/2025 1:15 PM EDT 03/21/2025 1:15 PM EDT us Sonia Medley MD LAB URINE ORDERABLES Fin al Result Performing Organization Address City/[facility] Co de Phone Number [facility] [address] [place] [address] * Protein, Random, Urine with Creatinine (03/21/2025 1:15 PM EDT) Protein, Urine <6 mg/dL 03/21/2025 2:55 PM EDT [facility] Creatinine, Urine 77 mg/dL 03/21/2025 2:55 PM EDT [facility] Protein/Creatin ine Ratio 03/21/2025 2:55 PM EDT [facility] Urine Urine specimen obtained by clean catch procedure / Unknown Non-blood Collection / Unknown 03/21/2025 1:15 PM EDT 03/21/2025 1:15 PM EDT Sonia Medley MD LAB URINE ORDERABLES Fin al Result Performing Organization Address [facility] Co de Phone Number [facility] [address] [place] [address] documented in this encounter Visit Diagnoses Diagnosis [...] documented as of this encounter Care Teams Crew Team Member Relationship Specialty Start Date End Date David Iverson MD PCP - General 06/06/22 Ludin Gonzalez MD [address] [place] [address] Referring Physician 02/18/25 documented as of this encounter
--- OUTSIDE RECORDS SUMMARY | 2025-03-15 11:30 | XMS_ITS | Encounter Summary ---
Author Organization Healthcare Address [address] [place] [address] Care Team Providers Care Hydro Plant Technician Name Role Phone David Iverson MD Primary Care Provider [phone] Ludin Gonzalez MD Unavailable [phone] Encounter Details Date Type Department Care Team (Late st Contact Info) Description 03/15/2025 11:30 AM EDT Pre-Admission Testing [facility] [address] [place] [address] Anesthesia Record Procedure Summary Procedure Name Responsible [...] Labs 1123 ACT Performed 534s 1140 Cory [place] retracted per surgeon's request. Now 40cm at [...] (incision); Sternum 03/22/25 0855 by Jong Esparza, plodding machine operator 03/22/25; 0855; N; Surgical (incision); Pretibial; Proximal, Right 03/22/25 0855 by Jong Esparza, LISSY Peripheral IV Placement Date: 03/22/25; Placement Time: 0635; Orientation: Posterior, Right; Location: Wrist; Site Prep: Chlorhexidine ; Local Anesth: [place]; Technique: Anatomical landmarks; Inserted by: tanya rojas [...] Location: Mediastinal; Size: 36 Fr; Drainage System: [place]/nonsuction water seal drainage; Removal Date: 03/24/25; Removal [...] with Musa Rosado MD on 03/22/[address] [facility] [place]. Past Medical History[1] Family History[2] Social History[3] SURGICAL HISTORY: Surgical History[4] Allergies[5] MEDICATIONS: Current Medications[6] ROS Anesthesia: Date of last anesthetic: Never had [place] Conscious sedation [facility] 02/2025 history of previous anesthesia. Does not have a history of anesthetic complications and obstructivesleep apnea. Cardiovascular: atrial fibrillation (on Xarelto), CAD and hyperlipidemia. Does not have CHF, dyspnea, dysrhythmias,pacemaker or past [place]. hypertension: is well controlled. Exercise tolerance is [...] thyroid disorder. gout. OSH stress test OSH [facility] 02/2025 OSH labs 03/2025 Glucose 147. Na [...] mg by mouth daily.) Easy Touch Pen [place], nitroglycerin, DISSOLVE 1 TABLET UNDER THE TONGUE [...] card, photo ID, along with power of city attorney, guardianship or advanced directives if applicable [...] Description 06/13/2025 11:40 AM EDT Office Visit [facility] [address], [address] [place] [address] Sonia Medley MD [address] [place] [address] documented as of this encounter [...] documented as of this encounter Care Teams Hydro Plant Technician Relationship Specialty Start Date End Date David Iverson MD PCP - General 06/06/22 Ludin Gonzalez MD [address] [place] [address] Referring Physician 02/18/25 documented as of this encounter
--- OUTSIDE RECORDS SUMMARY | 2025-03-21 13:00 | XMS_ITS | Encounter Summary ---
Author Organization Healthcare Address [address] [place] [address] Care Team Providers Care Lounge Car Attendant Name Role Phone David Iverson MD Primary Care Provider [phone] Ludin Gonzalez MD Unavailable [phone] Reason for Visit * Auth/Cert (Routine) Specialty Diagnoses / Procedures Referred By Contac t Referred To Contact Diagnoses Coronary artery disease due to calcified coronary lesion Coronary artery disease due to calcified coronary lesion [I25.10, I25.84] Procedures MS CABG, VEIN, THREE CABG, 2 OR MORE VESSELS Musa Rosado MD [address] [address] Phone: tel: fax: [facility] A OPERATING ROOM [address] [place] [address] Phone: tel: Referral ID Status Reason Start Date Expiration Date Visits Re quested Visits Authorized [id number] 1 1 Encounter Details Date Type Department Care Team (Late st Contact Info) Description 03/21/2025 1:00 PM EDT Office Visit [facility] [address], [address] [place] [address] Musa Rosado MD [address] [address] Coronary artery disease involving poarch heart without angina pectoris, unspecified vessel or lesion type (Primary Dx); Type 2 diabetes mellitus with stage 2 chronic kidney disease, with long-term current use of insulin ([facility]); CKD (chronic kidney disease) stage 2, [...] Notes * Progress Notes - Zulay Syed, PATIENT PORTAL CONCIERGE - 03/21/2025 1:00 PM EDT Reason for visit / Chief Complaint: Pre-op visit for coronary revascularization scheduled for 03/22/2025 History of present illness: Lizandro Sprague is a 45 y.o. male with recent medical history HTN, HLD, DM2 with neuropathy, CKD 3, and GERD referred to us in consultation by Dr. Gonzalez in regards to recent [facility] with results indicating multi-vessel coronary artery disease. [...] kidney disease, with long-term current use of insulin([facility]) 01/14/2022 Medical History: Past Medical History [...] Yes Chavez Lambert MD Easy Touch Pen [place] 31G X 8 MM misc 04/18/23 Yes [...] first diagonal artery and large first septal order entry representative. There is additional 30% distal stenosis. The [...] Description 06/13/2025 11:40 AM EDT Office Visit [facility] Nephrology, Bone & Mineral Metabolism [address] [facility], [address] [place] [address] Sonia Medley MD [address] [place] [address] documented as of this encounter Goals Goal Patient Goal Type Associated Problems Recent Progress Patient-Stated? 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 Syed APRN documented as of this encounter Visit Diagnoses Diagnosis Coronary artery disease involving poarch heart without angina pectoris, unspecified vessel or lesion type- Primary Type 2 diabetes mellitus with stage 2 chronic kidney disease, with long-term current use of insulin ([facility]) CKD (chronic kidney disease) stage 2, [...] documented as of this encounter Care Teams Lounge Car Attendant Relationship Specialty Start Date End Date David Iverson MD PCP - General 06/06/22 Ludin Gonzalez MD [address] [place] [address] Referring Physician 02/18/25 documented as of this encounter
--- OUTSIDE RECORDS SUMMARY | 2025-03-21 13:23 | XMS_ITS | Encounter Summary ---
Author Organization Healthcare Address [address] [place] [address] Care Team Providers Care Dyed Yarn Operator Name Role Phone David Iverson MD Primary Care Provider [phone] Ludin Gonzalez MD Unavailable [phone] Reason for Visit * Auth/Cert (Routine) Specialty Diagnoses / Procedures Referred By Contac t Referred To Contact Diagnoses Coronary artery disease due to calcified coronary lesion Coronary artery disease due to calcified coronary lesion [I25.10, I25.84] Procedures NM CABG, VEIN, THREE CABG, 2 OR MORE VESSELS Musa Rosado MD [address] [facility] [address] [place] [address] Phone: tel: fax: [facility] A OPERATING ROOM [address] [place] [address] Phone: tel: Referral ID Status Reason Start Date Expiration Date Visits Re quested Visits Authorized [id number] 1 1 Encounter Details Date Type Department Care Team (Latest Contact Info) Description 03/21/2025 1:23 PM EDT - 03/21/2025 11:59 PM EDT Hospital Encounter [facility] [address] [place] [address] Coronary artery disease due to [...] in the past [address] [facility], were you homeless or living in a halfway (including now)? No 03/23/2025 Utilities Answer Date Recorded In the past 12 months has th e electric, [employer], oil, or water [employer] threatened to shut off services in your [...] tablet by mouth nightly. 30 tablet 03/30/2025 fenofibrate (Tricor) 145 MG tablet Take [...] capsule Take 1 capsule by mouth daily. traMADol (Ultram) 50 MG tablet Take by mouth every 6 hours. docusate sodium 100 MG capsule Take 100 mg by mouth 2 times a day for 10 days. Hold for loose stool 20 capsule 03/30/2025 oxyCODONE (Roxicodone) 10 MG immediate release tablet Take 1 tablet by mouth every 4 hours as needed for severe pain (For pain unrelieved by other interventions) for up to 3 days. 18 tablet 03/30/2025 senna (Senokot) 8.6 MG tablet Take 2 tablets by mouth daily for 10 days. Hold for loose stools. 20 tablet 03/30/2025 5 allopurinol (Zyloprim) 300 MG [...] mouth daily. 08/25/2024 5 Easy Touch Pen [place] 31G X 8 MM misc 04/18/2023 5 [...] 06/13/2025 11:40 AM EDT Office Visit [facility] Nephrology, Bone & Mineral Metabolism [address] [address] [facility], [address] [place] [address] Sonia Medley MD [address] [facility] [address] [facility] [address] [place] [address] documented as of this encounter Goals Goal Patient Goal Type Associated Problems Recent Progress Patient-Stated? 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 Syed Tasha, NATHANIEL documented as of this encounter Procedures Procedure [...] Cole MD on 03/21/2025 2:58 PM Zulay Cordova Syed FITTING ROOM ASSOCIATE IMG XR PROCEDURES Final Resu lt documented [...] documented as of this encounter Care Teams Dyed Yarn Operator Relationship Specialty Start Date End Date David Iverson MD PCP - General 06/06/22 Ludin Gonzalez MD [facility] [place] [address] Referring Physician 02/18/25 documented as of this encounter
--- OUTSIDE RECORDS SUMMARY | 2025-03-22 05:35 | XMS_ITS | Encounter Summary ---
Author Organization Healthcare Address [address] [id number] Care Team Providers Care Sew Out Operator Name Role Phone David Iverson MD Primary Care Provider [phone] Ludin Gonzalez MD Unavailable [phone] Reason for Referral * Consultation (Routine) - Authorized Specialty Diagnoses / Procedures Referred By Contac t Referred To Contact Cardiac Rehabilitation Diagnoses S/P CABG x 4 Musa Rosado MD [address] [address] Phone: tel: fax: Referral ID Status Reason Start Date Expiration Date V isits Requested Visits Authorized [id number] Authorized 04/05/2025 10/05/2026 1 1 * Consultation (Routine) - Authorized Specialty Diagnoses / Procedures Referred By Contac t Referred To Contact Cardiac Rehabilitation Diagnoses CAD, multiple vessel Musa Rosado MD [address] [address] Phone: tel: fax: [facility] [address], [address] [place] [address] Phone: tel: fax: Referral ID Status Reason Start Date Expiration Date V isits Requested Visits Authorized [id number] Authorized 03/22/2025 09/21/2026 1 1 Reason for Visit * Auth/Cert (Routine) Specialty Diagnoses / Procedures Referred By Jody t Referred To Contact Diagnoses Coronary artery disease due to calcified coronary lesion Coronary artery disease due to calcified coronary lesion [I25.10, I25.84] Procedures MD CABG, VEIN, THREE CABG, 2 OR MORE VESSELS Musa Rosado MD [address] [address] Phone: tel: fax: [facility] [address] [place] [address] Phone: tel: Referral ID Status Reason Start Date Expiration Date Visits Re quested Visits Authorized [id number] 1 1 Encounter Details Date Type Department Care Team (Latest Contact Info) Description 03/22/2025 5:35 AM EDT - 03/30/2025 11:38 AM EDT Hospital Encounter [facility] [address] [place] [address] Musa Rosado MD [address] [address] CAD, multiple vessel (Primary Dx); [...] any time in the past 12 m [facility], were you homeless or living in a prison (including now)? No 03/23/2025 Utilities Answer Date Recorded In the past 12 months has th e [employer], gas, oil, or water company threatened to [...] up to 3 days. 18 tablet 03/30/2025 06/28/202 5 senna (Senokot) 8.6 MG tablet Take 2 tablets by mouth daily for 10 days. Hold for loose stools. 20 tablet 03/30/2025 5 documented as of this encounter Miscellaneous Notes * Progress Notes - LucassamuelPhani espinozadafne Pham - 03/30/2025 11:38 AM EDT Case Management Discharge Note Lizandro Gr 45 y.o. male CSN: [id number] Admission: 03/22/2025 5:35 AM Primary Problem: CAD (coronary artery disease) Primary Newspaper Photographer: Primary Caregiver: Self Assistance Available at Discharge: Availability of Care Givers (#Hours): Other (comment) (as needed) Family/Newspaper Photographer(s) Willingness Assessed to care for patient at home: Yes Family/Newspaper Photographer(s) Readiness Assessed to care for patient at [...] Second Notice Recieved By: Pt's s/o Follow-up: [facility] [address], [address] [facility] [address] Raya Woods APRN [facility] [address] [address] Go on 05/25/2025 Your appointment time is [...] this date and does not require further [facility]-based care. SW met with pt's [...] and needs as appropriate. GEORGETTE Donaldson * Mikayla Cortez - 03/30/2025 10:52 AM EDT Images from the original note were not included. [id number] Insulin Aspart (rDNA Origin) Injection Brand Name(s): [...] type 1 diabetes, it is usually injected [id number] minutes before a meal. If you are [...] buy an insulin pen separately. Check the chief supply chain officer's information for the patient to see what [...] be sure to read and understand the chief supply chain officer's instructions. If you are blind or have [...] or doctor for a copy of the chief supply chain officer's information for the patient. Are there OTHER [...] medications. Ask your pharmacist or check the chief supply chain officer's patient information for a list of the ingredients. ? tell your doctor and pharmacist what prescription and nonprescription medications, vitamins, nutritional supplements, and herbal products you are taking. Your doctor may need to change the doses ofyour medications or monitor you carefully for side effects. ? The following nonprescription or herbal products may interact with insulin aspart injection: Aspirin or magnesium salicylate (Doans, others). Be sure to let your doctor [...] of all of the prescription and nonprescription (rvnr-mbz-pxhumrm) medicines, vitamins, minerals, and dietary supplements you [...] or pharmacist about specific clinical use. The [employer] [employer] represents that the information provided hereunder was formulated with a reasonable standard of care, and in conformity with professional standards in the field. The [employer] [employer] makes no representations or warranties, express or implied, including, but not limited to, any implied warranty of merchantability and/or fitness for a particular purpose, with respect to such information and specifically disclaims all such warranties. Users are advised that decisions regarding drug therapy are complex medical decisions requiring the independent, informed decision of an appropriate health healthcare science specialist, and the information is provided for informational purposes only. The entire monograph for a drug should be reviewed for a thorough understanding of the drug's actions, uses and side effects. The [employer] [employer] does not endorse or recommend the use of any drug.The information is not a substitute for medical care. AHFS?? Patient Medication Information?. ?? Copyright, 2023. The [employer]??, [address], [address], [place], [place]. All Rights Reserved. Duplication for commercial use must be authorized by [facility]. Selected Revisions: May 20, 2023. AHFS?? Patient Medication Information?. ?? Copyright, 2024 * Jh Horton - Mikayla Leung - 03/30/2025 10:52 AM EDT 1087 Oxycodone Oral Tablet, Immediate Release Brand Names: Oxaydo, Roxicodone What is this medicine? Oxycodone (pd-a-MOA-done) is an opioid pain reliever. It is used to treat moderate to severe pain. What should I tell my health care provider before I take this medicine? They need to know if you have any of these conditions: ? Moniteau's disease ? Brain tumor or head injury [...] a special medication guide each time you lemon picker this medicine. ? Overdosage: Taking too much [...] report to your doctor or health healthcare science specialist as soon as possible: ? allergic reactions [...] (report to your doctor or health healthcare science specialist if they continue or are bothersome): ? constipation ? dry mouth ? itching ? nausea, vomiting ? upset stomach This list may not describe all possible side effects. Call your doctor for medical advice about side effects. You may report side effects to FDA at 7-818-OJG-6711. Where should I keep my medicine? This [...] location. To find a disposal location, visit [employer]/[facility]/[place]. If you cannot take unused medicine to a proper location, you can mix the medicine with coffee grounds or max litter and dispose of in the normal trash. Your doctor may also give you a special disposal pouch for this medicine. You can also flush the medicine down the toilet. * Jh OnFHIR - Mikayla Leung - 03/30/2025 10:51 AM EDT Images from the original note were not included. [id number] Senna Brand Name(s): Sammy Jacob??, Ex-Lax??, Nelson's Castoria??, Nature's Remedy??, Perdiem Overnight [...] directions on your package or prescription label candie londono, and ask your doctor or pharmacist to [...] and out of their sight and reach. [email or web address] Dispose of unneeded medications in a way [...] be awakened, immediately call emergency services at 631. What OTHER INFORMATION should I know? Ask your pharmacist any questions you have about senna. Keep a written list of all of the prescription and nonprescription (mxoh-hif-jfonxns) medicines, vitamins, minerals, and dietary supplements you [...] or pharmacist about specific clinical use. The [employer] [employer] represents that the information provided hereunder was formulated with a reasonable standard of care, and in conformity with professional standards in the field. The [employer] [employer] makes no representations or warranties, express or implied, including, but not limited to, any implied warranty of merchantability and/or fitness for a particular purpose, with respect to such information and specifically disclaims all such warranties. Users are advised that decisions regarding drug therapy are complex medical decisions requiring the independent, informed decision of an appropriate health healthcare science specialist, and the information is provided for informational purposes only. The entire monograph for a drug should be reviewed for a thorough understanding of the drug's actions, uses and side effects. The [employer] [employer] does not endorse or recommend the use of any drug.The information is not a substitute for medical care. AHFS?? Patient Medication Information?. ?? Copyright, 2023. The [employer]??, [address], [address], [place], [place]. All Rights Reserved. Duplication for commercial use must be authorized by [facility]. Selected Revisions: March 25, 2024. AHFS?? Patient Medication Information?. ?? Copyright, 2024 * Jh Horton - Mikayla Leung - 03/30/2025 10:51 AM EDT Images from the original note were not included. 798 Narcan Nasal Boyers: Rescue Guide for Opioid Overdose Step 1 [...] the video go to this web address: [email or web address] Or, scan this QR code with your smart phone ?? [facility] * Mikayla Cortez - 03/30/2025 10:51 AM EDT Images from the original note were not included. [id number] Methocarbamol Brand Name(s): Robaxin??; also available generically [...] of all of the prescription and nonprescription (lmev-uzu-afcubtm) medicines, vitamins, minerals, and dietary supplements you [...] or pharmacist about specific clinical use. The [employer] [employer] represents that the information provided hereunder was formulated with a reasonable standard of care, and in conformity with professional standards in the field. The [employer] [employer] makes no representations or warranties, express or implied, including, but not limited to, any implied warranty of merchantability and/or fitness for a particular purpose, with respect to such information and specifically disclaims all such warranties. Users are advised that decisions regarding drug therapy are complex medical decisions requiring the independent, informed decision of an appropriate health healthcare science specialist, and the information is provided for informational purposes only. The entire monograph for a drug should be reviewed for a thorough understanding of the drug's actions, uses and side effects. The [employer] [employer] does not endorse or recommend the use of any drug.The information is not a substitute for medical care. AHFS?? Patient Medication Information?. ?? Copyright, 2023. The [employer]??, [address], [address], [place], [place]. All Rights Reserved. Duplication for commercial use must be authorized by [facility]. Selected Revisions: May 20, 2017. AHFS?? Patient Medication Information?. ?? Copyright, 2024 * [facility] - Mikayla Leung - 03/30/2025 10:50 AM EDT Images from the original note were not included. [id number] Furosemide Brand Name(s): Lasix??; also available generically [...] to the Food and Drug Administration's (FDA) [place] brick Adverse Event Reporting program online (https://www.fda.gov/Safety/MedWatch) or [...] and out of their sight and reach. [email or web address]://www.[email or web address] Dispose of unneeded medications in a way [...] be awakened, immediately call emergency services at 921. Symptoms of overdose may include: ? extreme [...] of all of the prescription and nonprescription (rdsx-olr-pjsceae) medicines vitamins, minerals, and dietary supplements you [...] or pharmacist about specific clinical use. The [employer] [employer] represents that the information provided hereunder was formulated with a reasonable standard of care, and in conformity with professional standards in the field. The [employer] [employer] makes no representations or warranties, express or implied, including, but not limited to, any implied warranty of merchantability and/or fitness for a particular purpose, with respect to such information and specifically disclaims all such warranties. Users are advised that decisions regarding drug therapy are complex medical decisions requiring the independent, informed decision of an appropriate health healthcare science specialist, and the information is provided for informational purposes only. The entire monograph for a drug should be reviewed for a thorough understanding of the drug's actions, uses and side effects. The [employer] [employer] does not endorse or recommend the use of any drug.The information is not a substitute for medical care. AHFS?? Patient Medication Information?. ?? Copyright, 2023. [employer]??, [address], [address], [place], [place]. All Rights Reserved. Duplication for commercial use must be authorized by [facility]. Selected Revisions: January 18, 2025. AHFS?? Patient Medication Information?. ?? Copyright, 2024 * Jh Horton - Mikayla Leung - 03/30/2025 10:50 AM EDT Images from the original note were not included. [id number] Stool Softeners Brand Name(s): Colace??, Correctol Soft [...] and out of their sight and reach. https://www.upandPureBrands.org Dispose of unneeded medications in a way [...] of all of the prescription and nonprescription (nevl-mmd-aialcpu) medicines, vitamins, minerals, and dietary supplements you [...] or pharmacist about specific clinical use. The [employer] [employer] represents that the information provided hereunder was formulated with a reasonable standard of care, and in conformity with professional standards in the field. The [employer] [employer] makes no representations or warranties, express or implied, including, but not limited to, any implied warranty of merchantability and/or fitness for a particular purpose, with respect to such information and specifically disclaims all such warranties. Users are advised that decisions regarding drug therapy are complex medical decisions requiring the independent, informed decision of an appropriate health healthcare science specialist, and the information is provided for informational purposes only. The entire monograph for a drug should be reviewed for a thorough understanding of the drug's actions, uses and side effects. The [employer] [employer] does not endorse or recommend the use of any drug.The information is not a substitute for medical care. AHFS?? Patient Medication Information?. ?? Copyright, 2023. The [employer]??, [address], [address], [place], [place]. All Rights Reserved. Duplication for commercial use must be authorized by [facility]. Selected Revisions: March 25, 2024. AHFS?? Patient Medication Information?. ?? Copyright, 2024 * Jh Horton - Mikayla Leung - 03/30/2025 10:50 AM EDT Images from the original note were not included. [id number] Acetaminophen Brand Name(s): Actamin??, Feverall??, Panadol??, Tempra Quicklets??, Tylenol??, Dayquil?? (as a combination product containing Acetaminophen, Dextromethorphan, Pseudoephedrine), NyQuil Cold/Flu Relief?? (as a combination product containing Acetaminophen, Dextromethorphan, Doxylamine), Percocet?? (as a combination product containing Acetaminophen, Oxycodone) APAP, I-vmtqcn-qpet-aminophenol, Paracetamol ?? This branded product is no [...] measuring cup or syringe provided by the chief supply chain officer to measure each dose of the solution [...] and out of their sight and reach. https://www.[email or web address] Unneeded medications should be disposed of in [...] be awakened, immediately call emergency services at 801. If someone takes more than the recommended [...] of all of the prescription and nonprescription (ziip-dib-krpvoeq) medicines you are taking, as well as [...] or pharmacist about specific clinical use. The [employer] [employer] represents that the information provided hereunder was formulated with a reasonable standard of care, and in conformity with professional standards in the field. The [employer] [employer] makes no representations or warranties, express or implied, including, but not limited to, any implied warranty of merchantability and/or fitness for a particular purpose, with respect to such information and specifically disclaims all such warranties. Users are advised that decisions regarding drug therapy are complex medical decisions requiring the independent, informed decision of an appropriate health healthcare science specialist, and the information is provided for informational purposes only. The entire monograph for a drug should be reviewed for a thorough understanding of the drug's actions, uses and side effects. The [employer] does not endorse or recommend the use of any drug.The information is not a substitute for medical care. AHFS?? Patient Medication Information?. ?? Copyright, 2023. The [employer]??, [address], [address], [place], [place]. All Rights Reserved. Duplication for commercial use must be authorized by [facility]. Selected Revisions: June 20, 2023. AHFS?? Patient Medication Information?. ?? Copyright, 2024 * Discharge Summary - Lina Dobbs APRN - 03/30/2025 10:04 AM EDT Images from the original note were not included. Hospitalization Admit Date/Time: 03/22/2025 5:35 AM Admitting Attending: Musa Rosado Discharge Date: 03/30/2025 Discharge Attending Physician: Musa Rosado MD PCP name and Address: David Iverson MD [address] [place] [address] Referring provider name and address: No referring [...] Your Medications These medications were sent to [facility] - [place], [place] - [address] [facility] [id number] acetaminophen 500 MG tablet allopurinol 300 MG [...] Sternotomy, coronary artery bypass grafting, endoscopic vein btrijcq-bmyua-pbcbfkn saphenous. Vein the ascending aorta the 1st [...] - H/H 7.5/22.8 - 21: H/H 7.8/23.9 - 22: H/H 8.8/27.3 - 03/28: H/H 8.8/26.3 - [...] Center 04/14/2025 3:40 PM Musa Rosado MD [facility] 06/13/2025 11:40 AM Sonia Medley MD [facility] PAC Test Results Pending At Discharge [...] present and normoactive x 4 quadrants SKIN: [place], warm, and dry. No rash, sores, or [...] CAD, CKD, HLD, T2DM, Afib presented to [facility] for CABG on 03/22. Endocrine Diabetes [...] with patient, family member, primary team, bedside net technical architect planning -Diabetes education: not needed -Follow-up plan: [...] via secure chat or page us at [phone] during -7p, Friday-Friday. For after hours please [...] chloride, sodium chloride * Progress Notes - uRth Nelson - 03/29/2025 9:05 AM EDT Physical Therapy [...] Transfer Exam: Sit to stand Level of [place]: Stand-by assist Physical/Nonphysical Assist: Supervision Assistive Device: Hand held assist Transfer Exam: Stand to Sit Level of [place]: Stand-by assist Physical/Nonphysical Assist: Supervision Assistive Device: [...] 12:37 PM. * Progress Notes - Hilda Mera APRN - 03/29/2025 8:47 AM EDT Endocrine - [...] CAD, CKD, HLD, T2DM, Afib presented to [facility] for CABG on 03/22. Endocrine Diabetes [...] via secure chat or page us at [phone] during 7a-7p, Friday-Friday. For after hours please [...] Sternotomy, coronary artery bypass grafting, endoscopic vein sigqamf-uwcqm-ihsrkbl saphenous. Vein the ascending aorta the 1st [...] 6/21: H/H 7.8/23.9 - 6/22: H/H 8.8/27.3 - /23: H/H 8.8/26.3 Hypocalcemia [...] plan for DC home tomorrow. Cardiothoracic Surgery [phone] [1] acetaminophen, 1,000 mg, Oral, q6h VIOLETTE allopurinol, 300 mg, Oral, Daily aspirin, 81 mg, Oral, Daily atorvastatin, 80 mg, Oral, Nightly docusate sodium, 100 mg, Oral, BID fenofibrate, 145 mg, Oral, Daily furosemide, 40 mg, Oral, Daily gabapentin, 300 mg, Oral, BID heparin (porcine), 5,000 Units, Subcutaneous, q8h [facility] insulin glargine-yfgn, 30 Units, Subcutaneous, Nightly insulin [...] Note Lizandro Gr 45 y.o. male CSN: [id number] Room/Bed 119/119A Nutrition evaluation type: follow-up Reason [...] (Room air) O2 Delivery Method: Nasal cannula [place] Coma Scale Score: 15 [place] Scale Score: [...] 31.03 Weight Evaluation: Obese-Class 1 (BMI 30-34.9) [place] Body Weight (kg): 80.9 Percent [place] Body Weight: 128 Adjusted Body Weight (kg): 86.9 Estimated Needs: Kcal/ K-25 Kcal Provided: 7952-0395 Metabolic Cart Study Results: Current Nutrition Intake: Diet Supplements: Impact AR Diet Order: Adult Diet Diet Texture: Regular Adult Carbohydrate Restriction: Consistent CHO 2 (8460-1097 Alex, 80 g/meal) Adult Sodium Restriction: No added salt Percent Meals Eaten (%): 50-100% x 5 days Diet Experience and Nutrition History: Diet Education Provided: Will monitor Pertinent home medications: Mosque needs: Nutrition Focused Physical Exam: Unable to [...] BID heparin (porcine), 5,000 Units, Subcutaneous, q8h [facility] insulin glargine-yfgn, 30 Units, Subcutaneous, Nightly insulin [...] Progressing * Progress Notes - Ephraim Hicks TRAVEL COUNSELOR - 03/28/2025 12:43 PM EDT CVT Progress [...] Sternotomy, coronary artery bypass grafting, endoscopic vein zprriwr-kqmgj-gzgjkip saphenous. Vein the ascending aorta the 1st [...] and replete prn Acute postoperative pain - [facility] DM II (POA) Diabetic neuropathy (POA) Postoperative [...] Wean pain medication as tolerated. Cardiothoracic Surgery [phone] [1] acetaminophen, 1,000 mg, Oral, q6h VIOLETTE [...] Note Lizandro Gr 45 y.o. male CSN: [id number] Admission: 03/22/2025 5:35 AM Primary Problem: CAD [...] Pastoral Care Note: Patient was appreciative of squilgeer's visit. was on the bed side supporting him. The chaplainprovided patient supportive listen, emotional support and spiritual support. The family appreciate squilgeer as they informed the squilgeer that they maybe discharged today. Referral From: Insurance Professional Initiated Pastoral Care Provided For: Patient, Spouse [...] release, Expresses feeling spiritually nurtured, Appreciative of Insurance Professional Support, Communicates increased satisfaction with hospital experience, Is functionally engaged in meaning making, Demonstrates and/or verbalizes increased comfort Cosigned by Eva French at 03/31/2025 9:46 AM EDT Associated attestation - Eva French - 03/31/2025 9:46 AM EDT This is to attest squilgeer internal communications manager chart note has been reviewed and okayed. * Progress Notes - Maritza Khanna APRN - 03/28/2025 8:05 AM EDT -Nahun Gr is a 45 y.o. male PMH CAD, CKD, HLD, T2DM, Afib presented to [facility] for CABG on 03/22. 24 hr [...] CAD, CKD, HLD, T2DM, Afib presented to [facility] for CABG on 03/22. Endocrine Diabetes [...] via secure chat or page us at [phone] during 7a-7p, Sun-Sat. For after hours, weekends, [...] (IS): 5 * Progress Notes - Maritza Khanna APRN - 03/27/2025 2:45 PM EDT -Subjective Lizandro Gr is a 45 y.o. male PMH CAD, CKD, HLD, T2DM, Afib presented to [facility] for CABG on 03/22. 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 male PMH CAD, CKD, HLD, T2DM, Afib presented to [facility] for CABG on 03/22. Endocrine Diabetes [...] via secure chat or page us at [phone] during 7a-7p, Sun-Sat. For after hours, weekends, holidays please contact the on-call Endocrine Fellow. Thank you for allowing us to participate in the care of this patient. Time Spent: I personally spent a total of 30 minutes on this encounter. This time includes face to face with patient, counseling and discussion and/or coordination of care. * Progress Notes - La Nena Mrach APRN - 03/27/2025 2:07 PM EDT CVT [...] Sternotomy, coronary artery bypass grafting, endoscopic vein [id number] saphenous. Vein the ascending aorta the 1st [...] and replete prn Acute postoperative pain - [facility] DM II (POA) Diabetic neuropathy (POA) Postoperative [...] (patient aware). Increased bowel regimen. Cardiothoracic Surgery [phone] [1] acetaminophen, 1,000 mg, Oral, q6h VIOLETTE [...] Sternotomy, coronary artery bypass grafting, endoscopic vein [id number] saphenous. Vein the ascending aorta the 1st [...] as able. Escalate bowel regimen. Cardiothoracic Surgery [phone] [1] acetaminophen, 650 mg, Oral, q6h [facility] allopurinol, 300 mg, Oral, Daily aspirin, 81 mg, Oral, Daily atorvastatin, 80 mg, Oral, Nightly colchicine, 0.6 mg, Oral, BID docusate sodium, 100 mg, Oral, BID fenofibrate, 145 mg, Oral, Daily furosemide, 40 mg, Oral, Daily gabapentin, 300 mg, Oral, BID heparin (porcine), 5,000 Units, Subcutaneous, q8h [facility] insulin glargine-yfgn, 26 Units, Subcutaneous, Nightly insulin [...] CAD, CKD, HLD, T2DM, Afib presented to [facility] for CABG on 03/22. 24 hr [...] CAD, CKD, HLD, T2DM, Afib presented to [facility] for CABG on 03/22. Endocrine Diabetes [...] via secure chat or page us at [phone] during 7a-7p, Sun-Sat. For after hours, weekends, holidays please contact the on-call Endocrine Fellow. Thank you for allowing us to participate in the care of this patient. * Consults - Beverly Ferguson RN - 03/25/2025 10:00 PM EDT Primary team d/c IV DESIGN TECHNOLOGY PROFESSOR earlier today. * Care Plan - Zaida [...] CAD, CKD, HLD, T2DM, Afib presented to [facility] for CABG on 03/22. 24 hr [...] CAD, CKD, HLD, T2DM, Afib presented to [facility] for CABG on 03/22. Endocrine Diabetes [...] via secure chat or page us at [phone] during 7a-7p, Sun-Sat. For after hours, weekends, [...] Sternotomy, coronary artery bypass grafting, endoscopic vein [id number] saphenous. Vein the ascending aorta the 1st [...] aspects of care Leukocytosis (resolved) Cardiothoracic Surgery [phone] * Progress Notes - Michelel Branham Tasha - 03/25/2025 12:10 PM EDT Occupational Therapy [...] Transfer Exam: Sit to stand Level of [place]: Contact guard Physical/Nonphysical Assist: Supervision, Verbal Cues, Minimal cues Assistive Device: Rollator Transfer Exam: Stand to Sit Level of [place]: Contact guard Physical/Nonphysical Assist: Minimal cues, Supervision, [...] depression, for respiratory rate < 10 IV DESIGN TECHNOLOGY PROFESSOR hydromorphone 1mg/ml 0.2mg q6min - CABG. Takes tramadol and gabapentin at home Blood pressure 119/50, pulse 89, temperature 37.5 ??C (99.5 ??F), temperature source Oral, resp. rate 22, height 1.829 m (6'), weight 108 kg (238 lb 8.6 oz), SpO2 93%. Please Contact Acute Pain Service with any additional questions or concerns via Epic Secure Chat orpage [phone]. * Progress Notes - Katlin Jaffe, TRAVEL COUNSELOR - 03/25/2025 10:38 AM EDT Pain Consult Follow-Up Note Reason for Follow-up: Acute Pain Condition, Chronic Pain Condition, Multimodal pain management, DESIGN TECHNOLOGY PROFESSOR- Transition Off, and Postoperative Pain Control Subjective: Lizandro Gr is a 45 y.o. male admitted on 03/22/2025 with PMH HTN, HLD, DM2 with neuropathy,CKD3 and GERD who presented to [facility] for planned CABG. Post op he was started on the typical post-CABG pain regimen with MMPC Gabapentin, Robaxin, Lidocaine patch as well as opioids with Dilaudid and Oxycodone which was unsuccessful in treating his pain so Inpatient Pain Service was consulted for DESIGN TECHNOLOGY PROFESSOR which was started on 03/23/25. Today, primary team plans to transition of dilaudid IV DESIGN TECHNOLOGY PROFESSOR and requests PO recommendations for oral dilaudid given oxycodone being ineffective for him previously. Mr. Gr is seen sitting [facility]. He is calm and relaxed on my visit. He reports the dilaudid IV DESIGN TECHNOLOGY PROFESSOR has worked well to control his pain. I discussed with him the plan to transition off the IV DESIGN TECHNOLOGY PROFESSOR onto a oral pain regimen with dilaudid. [...] 300 mg Oral BID HYDROmorphone 1 mg/mL DESIGN TECHNOLOGY PROFESSOR (naive protocol) no dose Intravenous Continuous HYDROmorphone [...] Wean Plan Created, Pain TreatmentPreferences Discussed, and DESIGN TECHNOLOGY PROFESSOR- Transition off Assessment: Mr. Gr has acute on chronic, opioid tolerant, well controlled somatic pain s/p CABG. Post op he was started on MMPC and PO/IV PRN opioids; however, these were unsuccessful in treating his pain so a Dilaudid IV DESIGN TECHNOLOGY PROFESSOR was started on 03/23/25. Primary team has requested PO recommendations with oral dilaudid with plans to transition off DESIGN TECHNOLOGY PROFESSOR today. Recommendations: - Discontinue IV DESIGN TECHNOLOGY PROFESSOR and start: - Dilaudid 4 mg PO Q4H PRN - Give first dose 30 minutes prior to discontinuing IV DESIGN TECHNOLOGY PROFESSOR - Dilaudid 0.5 mg IV Q4H PRN [...] respiratory compromise and/or . Katlin Jaffe, MSN, AGACNP- Department of Anesthesiology, Perioperative, Critical Care and [...] control - Pain Team consulted for IV DESIGN TECHNOLOGY PROFESSOR - Scheduled tylenol, robaxin, gabapentin - 03/25 - discontinue IV DESIGN TECHNOLOGY PROFESSOR, Pain to provide PO recommendations * Jh OnFHIR - Katlin Chaney RN - 03/25/2025 8:20 AM EDT Images from the original note were not included. [id number] Recovery From Heart Surgery: The First Few [...] stop Last Reviewed Date: 2024 00:00:00 ?? [id number] The [employer]. All rights reserved. This information is not intended as a substitute for professional medical care. Always follow your healthcare professional's instructions. * Jh Sol - Katlin Chaney RN - 03/25/2025 8:20 [...] ? Natural and processed cheeses such as Libyan, blue, mozzarella, and [place]ib[place]ian Meat and protein substitutes Special instructions: ? [...] ? Oat meal ? Whole wheat ? [place] ? Pumpernickel ? White ? Raisin ? Crackers prepared without butter, lard, coconut, or palm oil ? Dry cereals that contain allowed fats ? Rice and pasta prepared with allowed fats ? Egg noodles (limit to ?? cup per day) ? Armenian ? Filipino ? Citizen Of [place] muffins ? Pancakes, waffles, biscuits, and cornbread made with allowed ingredients ? Flat bread ? Luis crackers ? Matzoh crackers ? Whole grain or enriched cereals prepared with allowed oils ? Wheat germ Avoid: ? Egg or cheese bread ? Butter rolls ? Commercially prepared products: biscuits, muffins, sweet rolls, cornbread, pancakes and waffles, luxembourgish toast, croissants ? Noodles ? Cheese crackers ? Flavored crackers prepared with saturated fats ? Any cereal prepared with saturated fat ? Faroese noodles ? Rice and pasta prepared with eggs, cream, or high fat cheese Fruits Choose: ? Any fresh, frozen, canned, or dried fruit or juice ? Avocado Vegetables Choose: ? Any fresh, frozen, or canned vegetables ? Potatoes prepared with allowed fat ? Olives (limit to 10 small or 5 large per day) Avoid: ? Buttered, creamed, or fried vegetables ? Sbuo-j-wypuw, commercially made ? Vegetables prepared in a [...] sizes are listed below: ? Nuts: The [place] Heart Association recommends including 5 servings of [...] avocado oil, etc.: 1 tablespoon o The [place] Heart Association recommends limiting oils to 3 [...] ingredients ? Sorbet ? Ice milk ? [place] ? Gum drops ? Jelly beans ? [...] saturated fats, cheese, and/or egg yolks ? Grulla chips ? Potato chips and other snack [...] much from the food you eat. Use [employer] to Help Build Your Meals The Tap 'n Tapcker can help you plan and track your meals and activity. You can look up individual foods to see or compare their nutritional value. You can get guidelines for what and how much you should eat. You can compare your food choices. And you can assess personal physical activities and see ways you can improve. Go to www.choosemyplate.gov/IndoorAtlascker/. Eating Heart-Healthy Food: Using the DASH Plan [...] DASH eating plan, visit: www.nhlbi.nih.gov/health/health-topics/topics/dash * Zinakale ArmstrongDANE - Katlin Chaney RN - 03/25/2025 8:20 AM EDT Images from the original note were not included. 10075 Eating Heart-Healthy Foods Eating has a big [...] judy. Last Reviewed Date: 2022 00:00:00 ?? 4691-1170 The [employer]. All rights reserved. This information is not intended as a substitute for professional medical care. Always follow your healthcare professional's instructions. * [facility] - Katlin Chaney RN - 03/25/2025 8:20 AM EDT Images from the original note were not included. [id number] After Bypass Surgery: Reaching, Bending, and Lifting [...] your shoulders and hips in line. ? epic cupid analyst the object and hold it close to [...] directions. Last Reviewed Date: 2024 00:00:00 ?? 6880-8299 The [employer]. All rights reserved. This information is not intended as a substitute for professional medical care. Always follow your healthcare professional's instructions. * Jh Horton - Katlin Chaney RN - 03/25/2025 8:20 AM EDT Images from the original note were not included. 73347 After Bypass Surgery: Getting Up and Out [...] do. Last Reviewed Date: 2024 00:00:00 ?? [id number] The [employer]. All rights reserved. This information is not [...] AM: HDS on 4L NC. Transition from DESIGN TECHNOLOGY PROFESSOR to oral regimen. DC central line. No [...] round, and reactive to light. Neck: Comments: [facility] CV Cardiovascular: Pulses: Normal pulses. [...] cooperative. Results Review {Vanishing Link Review Results :[id number] I have reviewed the latest lab and [...] 7.2 (H) <5.7 % Final Atrial fibrillation ([facility]/HCC) Present on Admission: Unknown - In sinus [...] control - Pain Team consulted for IV DESIGN TECHNOLOGY PROFESSOR - Scheduled tylenol, robaxin, gabapentin - 03/25 - discontinue IV DESIGN TECHNOLOGY PROFESSOR, Pain to provide PO recommendations Non-Hospital Problems Microalbuminuria Type 2 diabetes mellitus with stage 2 chronic kidney disease, with long-term current use of insulin([facility]) Obesity (BMI 30-39.9) Shivani Tan MD Cosigned [...] department on the 1st floor of the [facility] near [facility] for a chest x-ray. Then go to [...] your incisions. Do NOT lift, push, or pulling machine operator 5 pounds for six weeks. [...] Katlin Chaney CT Surgery Nurse Navigator at [phone] Friday through Friday 7am- 3:30pm [facility] [phone] after 3:30 pm, weekends and holidays - ask for the CT surgeon classroom monitor. * Progress Notes - Meera Ibarra RN - 03/25/2025 8:15 AM EDT Case Management Adult Progress Note Lizandro Gr 45 y.o. male CSN: [id number] Admission: 03/22/2025 5:35 AM Primary Problem: CAD (coronary artery disease) Anticipated Discharge Date: tbd Additional Comments: LISSY SILVESTRE reviewed chart and met with primary team to discuss plan of care. Patient is not medically ready for discharge at this time, transfer to telemetry. LISSY SILVESTRE will continue to follow. Update: CM placed rollator referral with [facility]. Meera Ibarra RN * Progress Notes - [...] statin, beta daniel -mmpc, attempt wean off financial investment adviser -po diuresis -remove leg drain and pacing [...] BID heparin (porcine), 5,000 Units, Subcutaneous, q8h [facility] insulin glargine-yfgn, 20 Units, Subcutaneous, Nightly insulin [...] mg with IVPCA. Encouraged patient to use DESIGN TECHNOLOGY PROFESSOR button to help with pain control. Follow-Up: Follow-Up: Will continue to monitor and adjust as needed. Acute Pain Service Comments: Pain Service comments: Will continue DESIGN TECHNOLOGY PROFESSOR and/ or infusion until primary service decides it is appropriate to discontinue DESIGN TECHNOLOGY PROFESSOR and/ or infusion. * Care Plan - [...] CAD, CKD, HLD, T2DM, Afib presented to [facility] for CABG on 03/22. Endocrine Diabetes [...] CAD, CKD, HLD, T2DM, Afib presented to [facility] for CABG on 03/22. Endocrine Diabetes [...] management discussed with patient, family member, bedside net technical architect planning -Diabetes education: likely not needed -Follow-up [...] via secure chat or page us at [phone] during 7a-7p, Friday-Friday. For after hours please [...] tablet 650 mg 650 mg Oral q6h [facility] Musa Sargent, 650 mg at 03/24/25 1145 allopurinol (Zyloprim) tablet 300 mg 300 mg Oral Daily Krunal Galdamez MD 300 mg at 03/24/25825 aspirin chewable tablet 81 mg 81 mg Oral Daily Marquise Raygoza MD 81 mg at 03/24/25825 atorvastatin (Lipitor) tablet 80 mg 80 mg Oral Nightly Marquise Raygoza MD 80 mg at 03/23/252043 colchicine (Colcrys) tablet 0.6 mg 0.6 mg Oral BID Krunal Galdamez MD 0.6 mg at 03/24/25825 glucose (Glutose) 40 % oral gel 15-30 grams of glucose 15-30 grams of glucose Sublingual q15 min PRMarquise Trujillo MD Or dextrose 50 % solution 12.5-25 g 12.5-25 g Intravenous q15 min PRMarquise Trujillo MD Or glucagon (human recombinant) injection 1 [...] injection 5,000 Units 5,000 Units Subcutaneous q8h [facility] Marquise Raygoza MD 5,000Units at 03/24/25 1408 HYDROmorphone 1 mg/mL DESIGN TECHNOLOGY PROFESSOR (naive protocol) Intravenous Continuous Fritz Mccracken MD [...] 500 mg Oral 4x daily Lisa Castro, TRAVEL COUNSELOR 500 mg at 03/24/25 1408 metoprolol tartrate [...] mg 40 mg Oral Daily Lisa Castro, TRAVEL COUNSELOR 40 mg at 03/24/25 0826 phosphorus (K [...] 24 Hrs: No acute events. On IV DESIGN TECHNOLOGY PROFESSOR. OOBC. OBJECTIVE All laboratory data, images, tracings, [...] Result Date: 03/24/2025 Interval removal of the [place]-Brea catheter. Otherwise no significant interval change. CRITICAL [...] Will send referral to patients preferred location, [facility]. [facility] will contact Mr. Gr to discuss and [...] rehabilitation program. 2. Eligibility: CABG 3. Exceptions/exclusions: [facility] Cardiac Rehab Exclusions: None 4. Referral: [facility] Cardiac Rehab Referral: Patient will consider participating in a cardiac rehabilitation program. Patient was provided with contact information for the following program(s) [facility] [place] [facility] [phone]. 5. Information sent: Information Sent: Appropriate information will be sent to the receiving cardiac rehabilitation program.: * Assessment & Plan Note - Krunal [...] control - Pain Team consulted for IV DESIGN TECHNOLOGY PROFESSOR - Restart home gabapentin when appropriate * [...] Right Radial 03/22/25 0847 Radial 2 GCS: Darrell Coma Scale Score: 15 [...] round, and reactive to light. Neck: Comments: [facility] CVC Cardiovascular: Pulses: Normal pulses. Heart sounds: [...] cooperative. Results Review {Vanishing Link Review Results :[id number] I have reviewed the latest lab and [...] control - Pain Team consulted for IV DESIGN TECHNOLOGY PROFESSOR - Restart home gabapentin when appropriate Non-Hospital [...] 300 mg Oral BID HYDROmorphone 1 mg/mL DESIGN TECHNOLOGY PROFESSOR (naive protocol) no dose Intravenous Continuous HYDROmorphone [...] Medications Medication Name Dose Route Frequency IV DESIGN TECHNOLOGY PROFESSOR hydromorphone 1mg/ml 0.2mg q6min - CABG. Takes tramadol and gabapentin at home Blood pressure (!) 158/83, pulse 90, temperature (!) 38.4 ??C (101.1 ??F), temperature source Bladder, resp. rate 20, height 1.829 m (6'), weight 103 kg (227 lb 15.3 oz), SpO2 93%. Please Contact Acute Pain Service with any additional questions or concerns via Doculogy orpaBest Five Reviewed 8000. * Consults - Katie Rodrigez RN - [...] reports that pain is much improved with DESIGN TECHNOLOGY PROFESSOR. Encouraged patient to push DESIGN TECHNOLOGY PROFESSOR button more frequently for better pain control to make coughing and deep breathing easier. Epidural Site: n/a Follow-Up: Follow-Up: Acute Pain Service will continue to follow and adjust as needed. Visit Type: Routine Current Analgesic Treatments: Inpatient Analgesics Active Medications Medication Name Dose Route Frequency acetaminophen (Tylenol) tablet 650 mg 650 mg Oral q6h [facility] gabapentin (Neurontin) capsule 300 mg 300 mg Oral BID HYDROmorphone 1 mg/mL DESIGN TECHNOLOGY PROFESSOR (naive protocol) no dose Intravenous Continuous HYDROmorphone [...] depression, for respiratory rate < 10 IV DESIGN TECHNOLOGY PROFESSOR hydromorphone 1mg/ml 0.2mg q6min - CABG. Takes tramadol and gabapentin at home Blood pressure (!) 158/83, pulse 83, temperature 37.6 ??C (99.7 ??F), temperature source Bladder, resp. rate 12, height 1.829 m (6'), weight 107 kg (236 lb 8.9 oz), SpO2 95%. Please Contact Acute Pain Service with any additional questions or concerns via Doculogy orpaBest Five Reviewed [phone]. * Consults - Matilde Leon RD - 03/23/2025 3:03 PM EDTAssociated Order(s): IP CONSULT TO NUTRITION SERVICES Adult Nutrition Evaluation Note Lizandro Gr 45 y.o. male CSN: [id number] Room/Bed 213/213A Nutrition evaluation type: assessment Reason for evaluation: provider consult Hospital course: 45 yo male S/P CABG on 03/22. Clear Liquid diet initiated. Past medical/ surgical history: has a past medical history of CAD, multiple vessel (03/22/2025), Chronic kidney disease, Coronary artery disease, GERD (gastroesophageal reflux disease), Hyperlipidemia, Hypertension, and Type 2 diabetes mellitus. Social history: Additional comments: 6/18: Pt asleep at time of visit. RN [...] 32.08 Weight Evaluation: Obese-Class 1 (BMI 30-34.9) [place] Body Weight (kg): 80.9 Percent [place] Body Weight: 130 Adjusted Body Weight (kg): 86.9 Estimated Needs: Kcal/ K-25 Kcal Provided: 5539-8566 Metabolic Cart Study Results: Current Nutrition Intake: Diet Order: Adult Diet Diet Texture: Clear liquid Percent Meals Eaten (%): establishing Diet Experience and Nutrition History: Diet Education Provided: Will monitor Pertinent home medications: Mosque needs: Nutrition Focused Physical Exam: Unable to [...] x 4 03/22/2025 On mechanically assisted ventilation ([facility]) 03/22/2025 Electrolyte abnormality 03/22/2025 GERD (gastroesophageal reflux disease) 03/22/2025 Anemia 03/22/2025 Poorly 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 ([facility]) 03/22/2025 Atrial fibrillation ([facility]) 03/22/2025 Postoperative pain 03/22/2025 CAD (coronary artery [...] admission Level of Mobility: Ambulatory- community Mobility [place]: Independent gait without device History of Falls: [...] Transfer Exam: Sit to stand Level of [place]: Moderate assist (50% patient's effort) Physical/Nonphysical Assist: Verbal Cues, Maximal cues, Additional assist utilized for safety Assistive Device: Rollator Transfer Exam: Stand to Sit Level of [place]: Moderate assist (50% patient's effort) Physical/Nonphysical Assist: [...] to ambulation, pt administered pain relief via DESIGN TECHNOLOGY PROFESSOR pump. Pt then ambulated into hallway and required verbal cueing for upright posture, pacing, and proximity to AD. Pt did not require any rest breaks throughout mobility. Pt positioned for comfort at end of session. Standardized Assessments [facility] 6-Clicks Mobility Assessment Difficulty patient has turning [...] 3-5 steps with a railing?: A lot [facility] 6-Clicks Mobility Assessment Total : 15 No [...] x 4 03/22/2025 On mechanically assisted ventilation ([facility]) 03/22/2025 Electrolyte abnormality 03/22/2025 GERD (gastroesophageal reflux disease) 03/22/2025 Anemia 03/22/2025 Poorly 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 ([facility]) 03/22/2025 Atrial fibrillation ([facility]) 03/22/2025 Postoperative pain 03/22/2025 CAD (coronary artery [...] admission Level of Mobility: Ambulatory- community Mobility [place]: Independent gait without device History of Falls: No ADL Performance: Independent Patient/Family Goals Statement To get better and go home. Objective Pain 8/10 sternal pain RN aware, pillow support provided and DESIGN TECHNOLOGY PROFESSOR used throughout. Delirium Screening Murillo Agitation Sedation [...] Mobility Exam: Supine to Sit Level of [place]: (Not observed- found and left up in recliner) Transfers Transfer Exam: Sit to stand Level of [place]: Moderate assist (50% patient's effort) Physical/Nonphysical Assist: Verbal Cues, Maximal cues, Additional assist utilized for safety Assistive Device: Rollator Transfer Exam: Stand to Sit Level of [place]: Moderate assist (50% patient's effort) Physical/Nonphysical Assist: [...] continued education to improve carryover. Standardized Assessments [facility] 6-Click Daily Activities Help from Other: Don/Doff Regular Lower Body Clothings: A lot Help From Other: Bathing: A lot Help From Other: Toileting: A lot Help From Other: Don/Doff Upper Body Clothings: Little Help From Other: Grooming: Little Help From Other: Eating Meals: None [facility] 6 Click - Daily Activities Score: 16 [...] Note Lizandro Gr 45 y.o. male CSN: [id number] Admission: 03/22/2025 5:35 AM Primary Problem: CAD (coronary artery disease) Sewing Machine Adjuster reviewed chart and spoke with the patient at bedside to complete this Initial Case Management Assessment. PCP: David Iverson MD Emergency Contact: Extended Emergency Contact Information Primary Emergency Contact: Alissa Gr Mobile Relation: Daughter Preferred language: Citizen Of [place] House Mover Helper needed? No Secondary Emergency Contact: VALENTINO [place] Mobile Relation: Significant Other Preferred language: Citizen Of [place] House Mover Helper needed? No Insurance: Primary Visit Coverage Payer Plan Sponsor Code Group Number Group Name [employer] MEDIC[employer] HU[employer]NA G[employer] PLUS [id number] Primary Visit Coverage Subscriber Subscriber ID Subscriber Name Subscriber N Subscriber Address [id number] LIZANDRO GR [id number] [place] [id number] Patient information: Primary Caregiver: Self Accompanied by/Relationship: significant other Support System: Immediate family Daily Living Activities: Functional Status: Independent Living Arrangements: Family Type of Residence: Private residence, [address] [facility] [address] Current DME: Equipment Currently Used at Home: [...] Dialysis Services: n/a Living Will/Advance Directive/Power of Appliance Adjuster /Guardian: Unable to assess: No Have you [...] Anglin. Has [employer] Medicare insurance and uses [facility] [place] [facility] in [place]. Significant other to transport and assist as [...] control - Pain Team consulted for IV DESIGN TECHNOLOGY PROFESSOR - Restart home gabapentin when appropriate * [...] in afternoon. D/c Yrn. Edited by: Shivani Tan MD at 03/23/2025 1237 Lines/Drains/Tubes: Patient Lines/Drains/Airways [...] Right 03/22/25 0856 Internal jugular 1 GCS: [place] Coma Scale Score: 15 Review of Systems [...] round, and reactive to light. Neck: Comments: [facility] CV Cardiovascular: Pulses: Normal pulses. [...] cooperative. Results Review {Vanishing Link Review Results :[id number] I have reviewed the latest lab and [...] control - Pain Team consulted for IV DESIGN TECHNOLOGY PROFESSOR - Restart home gabapentin when appropriate Non-Hospital Problems Microalbuminuria Type 2 diabetes mellitus with stage 2 chronic kidney disease, with long-term current use of insulin([facility]/HCC) Obesity (BMI 30-39.9) Shivani Tan MD * [...] 300 mg Oral BID HYDROmorphone 1 mg/mL DESIGN TECHNOLOGY PROFESSOR (naive protocol) no dose Intravenous Continuous HYDROmorphone [...] Medications Medication Name Dose Route Frequency IV DESIGN TECHNOLOGY PROFESSOR hydromorphone 1mg/ml 0.2mg q6min - CABG. Takes tramadol and gabapentin at home Blood pressure (!) 158/83, pulse 71, temperature 37.3 ??C (99.1 ??F), temperature source Core, resp. rate 15, height 1.829 m (6'), weight 107 kg (236 lb 8.9 oz), SpO2 95%. Please Contact Acute Pain Service with any additional questions or concerns via [employer] [email or web address] Reviewed [id number]. * Consults - Segun Tam RN - 03/23/2025 9:05 AM EDT RN Pain Assessment Lizandro Gr is a 45 y.o. male General Information: Referring Physician/ Service: Musa Rosado MD Patient History Reviewed: Yes Medical History: Principal Problem: CAD (coronary artery disease) Active Problems: CKD (chronic kidney disease) stage 2, GFR 60-89 ml/min Hypertension HLD (hyperlipidemia) S/P CABG x 4 On mechanically assisted ventilation ([facility]) Electrolyte abnormality GERD (gastroesophageal reflux disease) Anemia Poorly 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 ([facility]) Atrial fibrillation ([facility]) Postoperative pain Pertinent Home Medications: Prior to [...] day. Chavez Lambert MD Easy Touch Pen Steele 31G X 8 MM misc 04/18/23 Chavez [...] 300 mg Oral BID HYDROmorphone 1 mg/mL DESIGN TECHNOLOGY PROFESSOR (naive protocol) no dose Intravenous Continuous HYDROmorphone [...] Pain Service Plan: Plan: Place on IV DESIGN TECHNOLOGY PROFESSOR IV DESIGN TECHNOLOGY PROFESSOR request - CABG dilaudid 1 mg/ml DESIGN TECHNOLOGY PROFESSOR settin.2 mg q 6 minutes Basal rate: none Various methods of pain control discussed with patient and/ or family: Yes Discussed with doctor: Yes Please Contact Inpatient Pain Service with any additional questions or concerns via [employer] Secure Chat or page [phone]. [1] No Known Allergies [2] Social History Tobacco Use Smoking Status Never Passive exposure: Never Smokeless Tobacco Never * Consults - Loretta Horn APRN - 03/23/2025 8:37 AM EDT Pain Consult Note Reason for Consult: DESIGN TECHNOLOGY PROFESSOR request, Postoperative Pain Control , Chronic pain condition, Acute pain condition, and Multimodal pain management Ordering Provider: Musa Rosado MD History of Present Illness Lizandro Gr is a 45 y.o. male admitted on 03/22/2025 with PMH HTN, HLD, DM2 with neuropathy,CKD3 and GERD who presented to [facility] for planned CABG. Post op he was started on the typical post-CABG pain regimen with [facility] Gabapentin, Robaxin, Lidocaine patch as well as opioids with Dilaudid and Oxycodone. These have apparently been unsuccessful in treating his pain so Inpatient Pain Service was consulted for DESIGN TECHNOLOGY PROFESSOR. Today Mr. Gr is seen resting in [...] Neck: Comments: Right IJ MAC introducer with Dayton Brea in place Musculoskeletal: Comments: Decreased ROM [...] kg/m?? Results Review {Vanishing Link Review Results :[id number] I have reviewed the latest lab and imaging results. Assessment and Plan/Recommendations Assessment & Plan CAD (coronary artery disease) CKD (chronic kidney disease) stage 2, GFR 60-89 ml/min Hypertension HLD (hyperlipidemia) S/P CABG x 4 On mechanically assisted ventilation (CMS/HCC) Electrolyte abnormality GERD (gastroesophageal reflux disease) Anemia 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) Atrial fibrillation ([facility]) Postoperative pain Multimodal pain management: non opioids, Non-pharmacologic therapies, Opioids Adjusted, Pain Treatment Preferences Discussed, and DESIGN TECHNOLOGY PROFESSOR- Started Assessment: Mr. Gr has acute on chronic, opioid tolerant, uncontrolled somatic pain s/p CABG. Post op he was started on MMPC and PO/IV PRN opioids; however, these were unsuccessful in treating his pain so he will be initiated on a Dilaudid IV DESIGN TECHNOLOGY PROFESSOR today. Recommendations: - Start Dilaudid IV DESIGN TECHNOLOGY PROFESSOR @ 0.2 mg Q6M lockout - Start [...] Marino - 03/[address] Rosaod - 03/[address] H&[address] Galdamez ECG/medicine tests: Details: Reviewed CBC and BMP from 03/23 to evaluate for appropriateness of current pain regimen. Discussion of management or test interpretation with external provider(s): [employer] LISA discussed current pain and recommendations with primary provider for the day Dr. Tan via this note. Risk OTC drugs. Prescription drug management. Parenteral controlled substances. Drug therapy requiring intensive monitoring for toxicity. Risk Details: High risk due to initiation of Dilaudid IV DESIGN TECHNOLOGY PROFESSOR with potential for life threatening complications including overdose, respiratory compromise and/or . Loretta Horn, MSN, [facility] Department of Anesthesiology, Perioperative, Critical Care and [...] dose of paralytic was given at 1420. [facility] was consulted for ICU management post-operatively. Airway [...] Allergies Patient has no known allergies. GCS: [place] Coma Scale Score: 15 Review [...] present. Results Review {Vanishing Link Review Results :[id number] I have reviewed the latest lab and [...] kidney disease, with long-term current use of insulin([facility]) HLD (hyperlipidemia) Obesity (BMI 30-39.9) Shivani Tan [...] (one) time each day. Easy Touch Pen Steele 31G X 8 MM misc hydroCHLOROthiazide (HYDRODiuril) [...] Sternotomy, coronary artery bypass grafting, endoscopic vein [id number] saphenous. -Vein the ascending aorta the 1st [...] stage 2 chronic kidney disease and hypertension ([facility]/HCC) Obesity (BMI 30-39.9) Procedure(s): Median Sternotomy, coronary artery bypass grafting, endoscopic vein [id number] saphenous. -Vein the ascending aorta the 1st [...] - Primary * Murali Gomez - Assisting Masonry Contractor Administrator(s): * Marquise Raygoza MD - Resident - Assisting Murali Gomez PAC performed endoscopic vein harvest. Marquise Raygoza emptying PGY 5-was 1st tmd teacher assistant through the entire case Anesthesia: General ASA: [...] was induced, monitoring lines were placed, a Dayton-Brea catheter was floated into position and a [...] examined no active bleeding was noted. 1-24 Filipino tube was placed in the patient's right pleural cavity, 1-28 Filipino cannula was placed in the left cavity, 1-36 Filipino mediastinal tube was placed. Chest tubes and [...] by Dr. Gonzalez in regards to recent [facility] with results indicating multi-vessel coronary artery [...] visit. Results Review {Vanishing Link Review Results :[id number] I have reviewed the latest lab and [...] Description 06/13/2025 11:40 AM EDT Office Visit [facility] Nephrology, Bone & Mineral Metabolism [address], [address] [place] [address] Sonia Medley MD [address] [place] [address] Pending Results Name Type Priority [...] Care Plan Autogenerated Problem No Zulay Syed, TRAVEL COUNSELOR documented as of this encounter Procedures [...] UNSOLICITED RESULTS Routine 03/24/2025 11:44 AM EDT MD CRITICAL CARE, E/M 30-74 MINUTES Routine 03/24/2025 [...] UNSOLICITED RESULTS Routine 03/23/2025 1:57 PM EDT MD CRITICAL CARE, E/M 30-74 MINUTES Routine 03/23/2025 [...] 1 VIEW STAT 03/22/2025 4:46 PM EDT MD CRITICAL CARE, E/M 30-74 MINUTES Routine 03/22/2025 [...] UNSOLICITED RESULTS Routine 03/22/2025 7:57 AM EDT MD CABG, VEIN, THREE 03/22/2025 7:26 AM EDT Coronary artery disease due to calcified coronary lesion CKD (chronic kidney disease) stage 2, GFR 60-89 ml/min 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 ([facility]) Obesity (BMI 30-39.9) APTT Routine 03/22/2025 6:32 [...] POCT glucose meter (03/30/2025 8:32 AM EDT) [facility] POCT Glucose 176(H) 74 - 99 mg/dL 03/30/2025 8:34 AM EDT [facility] Comment:Accuracy of [...] for testing. Comment 03/30/2025 8:34 AM EDT [facility] Operating System Programmer ID Katlin Cheung 03/30/2025 8:34 AM EDT [facility] Device ID [id number] 03/30/2025 8:34 AM EDT [facility] Specimen Type POC Capillary 03/30/2025 8:34 AM EDT [facility] Blood Capillary blood specimen / Unknown 03/30/2025 8:32 AM EDT 03/30/2025 8:34 AM EDT Musa Rosado MD LAB POINT OF CARE TE ST DOCKED DEVICE UNSOLICITED RESULTS Final Result [facility] [address] [place] [address] * XR Chest 2 Views (03/30/2025 6:47 [...] Dmitri Coffman MD on 03/30/2025 9:29 AM us Ephraim Hicks TRAVEL COUNSELOR IMG XR PROCEDURES Final Resu lt * (ABNORMAL) Basic Metabolic Panel, Plasma (03/30/2025 3:47 AM EDT) Glucose, Plasma 172(H) 74 - 99 mg/dL 03/30/2025 5:23 AM EDT [facility] BUN, Plasma 28(H) 7 - 21 mg/dL 03/30/2025 5:23 AM EDT [facility] Creatinine, Plasma 1.18 0.70 - 1.20 mg/dL 03/30/2025 5:23 AM EDT [facility] BUN/Creatinine Ratio 24 03/30/2025 5:23 AM EDT [facility] Sodium, Plasma 138 136 - 145 mmol/L 03/30/2025 5:23 AM EDT [facility] Potassium, Plasma 4.1 3.6 - 4.9 mmol/L 03/30/2025 5:23 AM EDT [facility] Chloride, Plasma 103 97 - 107 mmol/L 03/30/2025 5:23 AM EDT [facility] CO2, Plasma 23 22 - 29 mmol/L 03/30/2025 5:23 AM EDT [facility] Anion Gap 12 6 - 16 mmol/L 03/30/2025 5:23 AM EDT [facility] Total Calcium, Plasma 8.9 8.9 - 10.2 mg/dL 03/30/2025 5:23 AM EDT [facility] eGFRcr 78.5 mL/min/1.7 3m*2 03/30/2025 5:23 AM EDT [facility] Comment:Reported eGFRcr in m L/min/1.73m2 is based the CKD-EPI 2020 equation that does not use a race coefficient. Blood Venous blood specimen / Unknown Venipuncture / Unknown 03/30/2025 3:47 AM EDT 03/30/2025 4:48 AM EDT us Ephraim Hicks APRN LAB BLOOD ORDERABLES Final R esult [facility] [address] [place] [address] * (ABNORMAL) CBC W/O Differential (03/30/2025 3:47 AM EDT) WBC Count 7.54 3.70 - 10.30 10*3/uL LAB HEMATOLOGY METHOD 03/30/2025 4:58 AM EDT [facility] RBC Count 3.01(L) 4.60 - 6.10 10*6/uL LAB HEMATOLOGY METHOD 03/30/2025 4:58 AM EDT [facility] HGB 9.0(L) 13.7 - 17.5 g/dL LAB HEMATOLOGY METHOD 03/30/2025 4:58 AM EDT [facility] HCT 27.9(L) 40.0 - 51.0 % LAB HEMATOLOGY METHOD 03/30/2025 4:58 AM EDT [facility] Platelet Count 286 155 - 369 10*3/uL LAB HEMATOLOGY METHOD 03/30/2025 4:58 AM EDT [facility] MCV 93 79 - 98 fL LAB HEMATOLOGY METHOD 03/30/2025 4:58 AM EDT [facility] MCH 29.9 26.0 - 32.0 pg LAB HEMATOLOGY METHOD 03/30/2025 4:58 AM EDT [facility] MCHC 32.3 30.7 - 35.5 g/dL LAB HEMATOLOGY METHOD 03/30/2025 4:58 AM EDT [facility] RDW 14.3 11.5 - 14.5 % LAB HEMATOLOGY METHOD 03/30/2025 4:58 AM EDT [facility] MPV 10.7 8.8 - 12.5 fL LAB HEMATOLOGY METHOD 03/30/2025 4:58 AM EDT [facility] nRBC 0.4(H) <=0.0 per 100 WBCs LAB HEMATOLOGY METHOD 03/30/2025 4:58 AM EDT [facility] Blood Venous blood specimen / Unknown Venipuncture / Unknown 03/30/2025 3:47 AM EDT 03/30/2025 4:51 AM EDT us Ephraim Hicks APRN LAB BLOOD ORDERABLES Final R esult Performing Organization Address City/[facility]/ZIP Co de Phone Number [facility] [address] [place] [address] * (ABNORMAL) POCT glucose meter (03/29/2025 7:20 PM EDT) POCT Glucose 226(H) 74 - 99 mg/dL 03/29/2025 7:21 PM EDT [facility] Comment:Accuracy of [...] Comment 03/29/2025 7:21 PM EDT [facility] Operating System Programmer ID Guerline Arambula 03/29/20 7:21 PM EDT [facility] Device ID [id number] 03/29/2025 7:21 PM EDT [facility] Specimen Type POC Capillary 03/29/2025 7:21 PM EDT [facility] Blood Capillary blood specimen / Unknown 03/29/2025 7:20 PM EDT 03/29/2025 7:21 PM EDT us uMsa Rosado MD LAB POINT OF CARE TE ST DOCKED DEVICE UNSOLICITED RESULTS Final Result [facility] [address] [place] [address] * (ABNORMAL) POCT glucose meter (03/29/2025 5:33 PM EDT) POCT Glucose 155(H) 74 - 99 mg/dL [...] for testing. Comment 03/29/2025 5:35 PM EDT [facility] Operating System Programmer ID Kristie Sanon 025 5:35 PM EDT [facility] Device ID [id number] 03/29/2025 5:35 PM EDT [facility] Specimen Type POC Capillary 03/29/2025 5:35 PM EDT [facility] Blood Capillary blood specimen / Unknown 03/29/2025 5:33 PM EDT 03/29/2025 5:35 PM EDT Musa Rosado MD LAB POINT OF CARE TE ST DOCKED DEVICE UNSOLICITED RESULTS Final Result Performing Organization Address City/State/[facility] Co de Phone Number [facility] [address] [place] [address] * (ABNORMAL) POCT glucose meter (03/29/2025 12:29 PM EDT) [facility] POCT Glucose 213(H) 74 - 99 mg/dL 03/29/2025 12:30 PM EDT [facility] Comment:Accuracy of a [...] for testing. Comment 03/29/2025 12:30 PM EDT [facility] Operating System Programmer ID Kristie Sanon 025 12:30 PM EDT [facility] Device ID [id number] 03/29/2025 12:30 PM EDT [facility] Specimen Type POC Capillary 03/29/2025 12:30 PM EDT [facility] Blood Capillary blood specimen / Unknown 03/29/2025 12:29 PM EDT 03/29/2025 12:30 PM EDT Musa Rosado MD LAB POINT OF CARE TE ST DOCKED DEVICE UNSOLICITED RESULTS Final Result [facility] [address] [place] [address] * (ABNORMAL) POCT glucose meter (03/29/2025 8:19 AM EDT) [facility] POCT Glucose 176(H) 74 - 99 mg/dL 03/29/2025 8:20 AM EDT [facility] Comment:Accuracy of [...] for testing. Comment 03/29/2025 8:20 AM EDT [facility] Operating System Programmer ID Kristie Sanon 025 8:20 AM EDT [facility] Device ID [id number] 03/29/2025 8:20 AM EDT [facility] Specimen Type POC Capillary 03/29/2025 8:20 AM EDT [facility] Blood Capillary blood specimen / Unknown 03/29/2025 8:19 AM EDT 03/29/2025 8:20 AM EDT Musa Rosado MD LAB POINT OF CARE TE ST DOCKED DEVICE UNSOLICITED RESULTS Final Result [facility] [address] [place] [address] * (ABNORMAL) POCT glucose meter (03/28/2025 8:02 PM EDT) [facility] POCT Glucose 179(H) 74 - 99 mg/dL [...] 03/28/2025 8:04 PM EDT [facility] Operating System Programmer ID Kathia Carl 03/28/2025 8:04 PM EDT [facility] Device ID [id number] 03/28/2025 8:04 PM EDT [facility] Specimen Type POC Capillary 03/28/2025 8:04 PM EDT [facility] Blood Capillary blood specimen / Unknown 03/28/2025 8:02 PM EDT 03/28/2025 8:04 PM EDT us Musa Rosado MD LAB POINT OF CARE TE ST DOCKED DEVICE UNSOLICITED RESULTS Final Result Performing Organization Address City/[facility] Co de Phone Number [facility] [address] [place] [address] * (ABNORMAL) POCT glucose meter (03/28/2025 4:59 PM EDT) Pathologist [facility] POCT Glucose 164(H) 74 - 99 mg/dL [...] for testing. Comment 03/28/2025 5:00 PM EDT [facility] Operating System Programmer ID Kristie Sanon 025 5:00 PM EDT [facility] Device ID [id number] 03/28/2025 5:00 PM EDT [facility] Specimen Type POC Capillary 03/28/2025 5:00 PM EDT [facility] Blood Capillary blood specimen / Unknown 03/28/2025 4:59 PM EDT 03/28/2025 5:00 PM EDT us Musa Rosado MD LAB POINT OF CARE TE ST DOCKED DEVICE UNSOLICITED RESULTS Final Result Performing Organization Address City/[facility]/ZIP Co de Phone Number [facility] [address] [place] [address] * (ABNORMAL) POCT glucose meter (03/28/2025 12:10 PM EDT) [facility] POCT Glucose 243(H) 74 - 99 mg/dL 03/28/2025 12:12 PM EDT [facility] Comment:Accuracy of a [...] Comment 03/28/2025 12:12 PM EDT [facility] Operating System Programmer ID Kristie Sanon 025 12:12 PM EDT [facility] Device ID [id number] 03/28/2025 12:12 PM EDT [facility] Specimen Type POC Capillary 03/28/2025 12:12 PM EDT [facility] Blood Capillary blood specimen / Unknown 03/28/2025 12:10 PM EDT 03/28/2025 12:12 PM EDT Musa Rosado MD LAB POINT OF CARE TE ST DOCKED DEVICE UNSOLICITED RESULTS Final Result Performing Organization Address City/State/[facility] Co de Phone Number [facility] [address] [place] [address] * (ABNORMAL) POCT glucose meter (03/28/2025 8:07 AM EDT) [facility] POCT Glucose 205(H) 74 - 99 mg/dL 03/28/2025 8:09 AM EDT [facility] Comment:Accuracy of a [...] for testing. Comment 03/28/2025 8:09 AM EDT [facility] Operating System Programmer ID Kristie Sanon 025 8:09 AM EDT [facility] Device ID [id number] 03/28/2025 8:09 AM EDT [facility] Specimen Type POC Capillary 03/28/2025 8:09 AM EDT [facility] Blood Capillary blood specimen / Unknown 03/28/2025 8:07 AM EDT 03/28/2025 8:09 AM EDT Musa Rosado MD LAB POINT OF CARE TE ST DOCKED DEVICE UNSOLICITED RESULTS Final Result [facility] [address] [place] [address] * XR Chest 2 Views (03/28/2025 6:13 [...] Dmitri Coffman MD on 03/28/2025 10:43 AM La Nena March TRAVEL COUNSELOR IMG XR PROCEDURES Final Result * Magnesium (03/28/2025 4:35 AM EDT) Magnesium, Plasma 1.9 1.9 - 2.4 mg/dL 03/28/2025 5:18 AM EDT [facility] Blood Venous blood specimen / Unknown Venipuncture / Unknown 03/28/2025 4:35 AM EDT 03/28/2025 4:42 AM EDT us La Nena Ng Joaquim TRAVEL COUNSELOR LAB BLOOD ORDERABLES Final Res ult [facility] [address] [place] [address] * (ABNORMAL) Comprehensive metabolic panel (03/28/2025 4:35 AM EDT) Glucose, Plasma 196(H) 74 - 99 mg/dL 03/28/2025 5:18 AM EDT [facility] BUN, Plasma 20 7 - 21 mg/dL 03/28/2025 5:18 AM EDT [facility] Creatinine, Plasma 1.13 0.70 - 1.20 mg/dL 03/28/2025 5:18 AM EDT [facility] BUN/Creatinine Ratio 18 03/28/2025 5:18 AM EDT [facility] Sodium, Plasma 134(L) 136 - 145 mmol/L 03/28/2025 5:18 AM EDT [facility] Potassium, Plasma 4.2 3.6 - 4.9 mmol/L 03/28/2025 5:18 AM EDT [facility] Chloride, Plasma 102 97 - 107 mmol/L 03/28/2025 5:18 AM EDT [facility] CO2, Plasma 22 22 - 29 mmol/L 03/28/2025 5:18 AM EDT [facility] Anion Gap 10 6 - 16 mmol/L 03/28/2025 5:18 AM EDT [facility] Total Calcium, Plasma 9.1 8.9 - 10.2 mg/dL 03/28/2025 5:18 AM EDT [facility] Total Protein 6.3 6.3 - 7.9 g/dL 03/28/2025 5:18 AM EDT [facility] Albumin, Plasma 3.6 3.5 - 5.2 g/dL 03/28/2025 5:18 AM EDT [facility] AST, Plasma 32 10 - 50 U/L 03/28/2025 5:18 AM EDT [facility] ALT, Plasma 35 10 - 50 U/L 03/28/2025 5:18 AM EDT [facility] Alkaline Phosphatase, Plasma 67 40 - 115 U/L 03/28/2025 5:18 AM EDT [facility] Total Bilirubin, Plasma 0.8 0.2 - 1.1 mg/dL 03/28/2025 5:18 AM EDT [facility] eGFRcr 82.7 mL/min/1.7 3m*2 03/28/2025 5:18 AM EDT [facility] Comment:Reported eGFRcr in m L/min/1.73m2 is based the CKD-EPI 2020 equation that does not use a race coefficient. Blood Venous blood specimen / Unknown Venipuncture / Unknown 03/28/2025 4:35 AM EDT 03/28/2025 4:42 AM EDT us La Nena March TRAVEL COUNSELOR LAB BLOOD ORDERABLES Final Res ult [facility] [address] [place] [address] * (ABNORMAL) Hemogram (CBC) (03/28/2025 4:35 AM EDT) WBC Count 6.01 3.70 - 10.30 10*3/uL LAB HEMATOLOGY METHOD 03/28/2025 5:08 AM EDT [facility] RBC Count 2.89(L) 4.60 - 6.10 10*6/uL LAB HEMATOLOGY METHOD 03/28/2025 5:08 AM EDT [facility] HGB 8.8(L) 13.7 - 17.5 g/dL LAB HEMATOLOGY METHOD 03/28/2025 5:08 AM EDT [facility] HCT 26.6(L) 40.0 - 51.0 % LAB HEMATOLOGY METHOD 03/28/2025 5:08 AM EDT [facility] Platelet Count 218 155 - 369 10*3/uL LAB HEMATOLOGY METHOD 03/28/2025 5:08 AM EDT [facility] MCV 92 79 - 98 fL LAB HEMATOLOGY METHOD 03/28/2025 5:08 AM EDT [facility] MCH 30.4 26.0 - 32.0 pg LAB HEMATOLOGY METHOD 03/28/2025 5:08 AM EDT [facility] MCHC 33.1 30.7 - 35.5 g/dL LAB HEMATOLOGY METHOD 03/28/2025 5:08 AM EDT [facility] RDW 13.6 11.5 - 14.5 % LAB HEMATOLOGY METHOD 03/28/2025 5:08 AM EDT [facility] MPV 10.7 8.8 - 12.5 fL LAB HEMATOLOGY METHOD 03/28/2025 5:08 AM EDT [facility] nRBC 0.5(H) <=0.0 per 100 WBCs LAB HEMATOLOGY METHOD 03/28/2025 5:08 AM EDT [facility] Blood Venous blood specimen / Unknown Venipuncture / Unknown 03/28/2025 4:35 AM EDT 03/28/2025 4:43 AM EDT us La Nena March APRN LAB BLOOD ORDERABLES Final Res ult [facility] [address] [place] [address] * (ABNORMAL) POCT glucose meter (03/27/2025 8:18 PM EDT) POCT Glucose 161(H) 74 - 99 mg/dL 03/27/2025 8:20 PM EDT [facility] Comment:Accuracy of [...] Comment 03/27/2025 8:20 PM EDT [facility] Operating System Programmer ID Overton, Mandy 03/27/2025 8:20 PM EDT [facility] LAB Device ID [id number] 03/27/2025 8:20 PM EDT [facility] Specimen Type POC Capillary 03/27/2025 8:20 PM EDT [facility] Blood Capillary blood specimen / Unknown 03/27/2025 8:18 PM EDT 03/27/2025 8:20 PM EDT us Musa Rosado MD LAB POINT OF CARE TE ST DOCKED DEVICE UNSOLICITED RESULTS Final Result Performing Organization Address City/[facility]/ZIP Co de Phone Number [facility] [address] [place] [address] * (ABNORMAL) POCT glucose meter (03/27/2025 5:45 PM EDT) POCT Glucose 184(H) 74 - 99 mg/dL [...] for testing. Comment 03/27/2025 5:47 PM EDT [facility] Operating System Programmer ID Larry Maher 5:47 PM EDT [facility] Device ID [id number] 03/27/2025 5:47 PM EDT [facility] Specimen Type POC Capillary 03/27/2025 5:47 PM EDT [facility] Blood Capillary blood specimen / Unknown 03/27/2025 5:45 PM EDT 03/27/2025 5:47 PM EDT us Musa Rosado MD LAB POINT OF CARE TE ST DOCKED DEVICE UNSOLICITED RESULTS Final Result Performing Organization Address City/[facility]/ZIP Co de Phone Number [facility] [facility] [address] [place] [address] * (ABNORMAL) POCT glucose meter (03/27/2025 1:04 PM EDT) POCT Glucose 242(H) 74 - 99 mg/dL 03/27/2025 1:06 PM EDT [facility] Comment:Accuracy of [...] Comment 03/27/2025 1:06 PM EDT [facility] Operating System Programmer ID Mary Jo Tracey 03/27/20 1:06 PM EDT [facility] Device ID [id number] 03/27/2025 1:06 PM EDT [facility] Specimen Type POC Capillary 03/27/2025 1:06 PM EDT [facility] Blood Capillary blood specimen / Unknown 03/27/2025 1:04 PM EDT 03/27/2025 1:06 PM EDT Musa Rosado MD LAB POINT OF CARE TE ST DOCKED DEVICE UNSOLICITED RESULTS Final Result Performing Organization Address [facility] Co de Phone Number [facility] [address] [place] [address] * (ABNORMAL) POCT glucose meter (03/27/2025 8:42 AM EDT) POCT Glucose 211(H) 74 - 99 [...] for testing. Comment 03/27/2025 8:44 AM EDT [facility] Operating System Programmer ID Larry Maher 8:44 AM EDT [facility] Device ID [id number] 03/27/2025 8:44 AM EDT [facility] Specimen Type POC Capillary 03/27/2025 8:44 AM EDT [facility] Blood Capillary blood specimen / Unknown 03/27/2025 8:42 AM EDT 03/27/2025 8:44 AM EDT Musa Rosado MD LAB POINT OF CARE TE ST DOCKED DEVICE UNSOLICITED RESULTS Final Result Performing Organization Address City/[facility]/ZIP Co de Phone Number [facility] [address] [place] [address] * Magnesium (03/27/2025 5:02 AM EDT) Magnesium, Plasma 1.9 1.9 - 2.4 mg/dL 03/27/2025 5:49 AM EDT [facility] Blood Venous blood specimen / Unknown Venipuncture / Unknown 03/27/2025 5:02 AM EDT 03/27/2025 5:22 AM EDT us La Nena March TRAVEL COUNSELOR LAB BLOOD ORDERABLES Final Res ult [facility] [address] [place] [address] * (ABNORMAL) Comprehensive metabolic panel (03/27/2025 5:02 AM EDT) Glucose, Plasma 200(H) 74 - 99 mg/dL 03/27/2025 5:49 AM EDT [facility] BUN, Plasma 18 7 - 21 mg/dL 03/27/2025 5:49 AM EDT [facility] Creatinine, Plasma 1.03 0.70 - 1.20 mg/dL 03/27/2025 5:49 AM EDT [facility] BUN/Creatinine Ratio 17 03/27/2025 5:49 AM EDT [facility] Sodium, Plasma 138 136 - 145 mmol/L 03/27/2025 5:49 AM EDT [facility] Potassium, Plasma 4.3 3.6 - 4.9 mmol/L 03/27/2025 5:49 AM EDT [facility] Chloride, Plasma 106 97 - 107 mmol/L 03/27/2025 5:49 AM EDT [facility] CO2, Plasma 22 22 - 29 mmol/L 03/27/2025 5:49 AM EDT [facility] Anion Gap 10 6 - 16 mmol/L 03/27/2025 5:49 AM EDT [facility] Total Calcium, Plasma 8.8(L) 8.9 - 10.2 mg/dL 03/27/2025 5:49 AM EDT [facility] Total Protein 6.4 6.3 - 7.9 g/dL 03/27/2025 5:49 AM EDT [facility] Albumin, Plasma 3.4(L) 3.5 - 5.2 g/dL 03/27/2025 5:49 AM EDT [facility] AST, Plasma 21 10 - 50 U/L 03/27/2025 5:49 AM EDT [facility] ALT, Plasma 21 10 - 50 U/L 03/27/2025 5:49 AM EDT [facility] Alkaline Phosphatase, Plasma 59 40 - 115 U/L 03/27/2025 5:49 AM EDT [facility] Total Bilirubin, Plasma 0.8 0.2 - 1.1 mg/dL 03/27/2025 5:49 AM EDT [facility] eGFRcr 92.4 mL/min/1.7 3m*2 03/27/2025 5:49 AM EDT [facility] Comment:Reported eGFRcr in m L/min/1.73m2 is based the CKD-EPI 2020 equation that does not use a race coefficient. Blood Venous blood specimen / Unknown Venipuncture / Unknown 03/27/2025 5:02 AM EDT 03/27/2025 5:22 AM EDT us La Nena March APRN LAB BLOOD ORDERABLES Final Res ult [facility] [address] [place] [address] * (ABNORMAL) Hemogram (CBC) (03/27/2025 5:02 AM EDT) WBC Count 5.04 3.70 - 10.30 10*3/uL LAB HEMATOLOGY METHOD 03/27/2025 5:37 AM EDT [facility] RBC Count 2.93(L) 4.60 - 6.10 10*6/uL LAB HEMATOLOGY METHOD 03/27/2025 5:37 AM EDT [facility] HGB 8.8(L) 13.7 - 17.5 g/dL LAB HEMATOLOGY METHOD 03/27/2025 5:37 AM EDT [facility] HCT 27.3(L) 40.0 - 51.0 % LAB HEMATOLOGY METHOD 03/27/2025 5:37 AM EDT [facility] Platelet Count 174 155 - 369 10*3/uL LAB HEMATOLOGY METHOD 03/27/2025 5:37 AM EDT [facility] MCV 93 79 - 98 fL LAB HEMATOLOGY METHOD 03/27/2025 5:37 AM EDT [facility] MCH 30.0 26.0 - 32.0 pg LAB HEMATOLOGY METHOD 03/27/2025 5:37 AM EDT [facility] MCHC 32.2 30.7 - 35.5 g/dL LAB HEMATOLOGY METHOD 03/27/2025 5:37 AM EDT [facility] RDW 13.7 11.5 - 14.5 % LAB HEMATOLOGY METHOD 03/27/2025 5:37 AM EDT [facility] MPV 10.6 8.8 - 12.5 fL LAB HEMATOLOGY METHOD 03/27/2025 5:37 AM EDT [facility] nRBC 0.6(H) <=0.0 per 100 WBCs LAB HEMATOLOGY METHOD 03/27/2025 5:37 AM EDT [facility] Blood Venous blood specimen / Unknown Venipuncture / Unknown 03/27/2025 5:02 AM EDT 03/27/2025 5:22 AM EDT us La Nena March TRAVEL COUNSELOR LAB BLOOD ORDERABLES Final Res ult [facility] [address] [place] [address] * XR Chest 1 View (03/27/2025 4:58 [...] on 03/27/2025 10:17 AM La Nena March TRAVEL COUNSELOR IMG XR PROCEDURES Final Result * (ABNORMAL) POCT glucose meter (03/27/2025 4:35 AM EDT) POCT Glucose 189(H) 74 - 99 mg/dL 03/27/2025 4:38 AM EDT [facility] Comment:Accuracy of a [...] for testing. Comment 03/27/2025 4:38 AM EDT [facility] Operating System Programmer ID Sheryl Vegakunuh 025 4:38 AM EDT [facility] Device ID [id number] 03/27/2025 4:38 AM EDT [facility] Specimen Type POC Capillary 03/27/2025 4:38 AM EDT [facility] Blood Capillary blood specimen / Unknown 03/27/2025 4:35 AM EDT 03/27/2025 4:38 AM EDT Musa Rosado MD LAB POINT OF CARE TE ST DOCKED DEVICE UNSOLICITED RESULTS Final Result Performing Organization Address City/[facility]/ZIP Co de Phone Number [facility] [address] [place] [address] * (ABNORMAL) POCT glucose meter (03/26/2025 8:20 PM EDT) Pathologist [facility] POCT Glucose 260(H) 74 - 99 mg/dL [...] for testing. Comment 03/26/2025 8:24 PM EDT [facility] Operating System Programmer ID Gary, Deakunuh 025 8:24 PM EDT [facility] Device ID [id number] 03/26/2025 8:24 PM EDT [facility] Specimen Type POC Capillary 03/26/2025 8:24 PM EDT [facility] Blood Capillary blood specimen / Unknown 03/26/2025 8:20 PM EDT 03/26/2025 8:24 PM EDT Musa Rosado MD LAB POINT OF CARE TE ST DOCKED DEVICE UNSOLICITED RESULTS Final Result Performing Organization Address City/[facility] Co de Phone Number [facility] [address] [place] [address] * (ABNORMAL) POCT glucose meter (03/26/2025 5:30 PM EDT) [facility] POCT Glucose 211(H) 74 - 99 mg/dL [...] 03/26/2025 5:34 PM EDT [facility] Operating System Programmer ID Tonja Olivares 5:34 PM EDT [facility] Device ID [id number] 03/26/2025 5:34 PM EDT [facility] Specimen Type POC Capillary 03/26/2025 5:34 PM EDT [facility] Blood Capillary blood specimen / Unknown 03/26/2025 5:30 PM EDT 03/26/2025 5:34 PM EDT Musa Rosado MD LAB POINT OF CARE TE ST DOCKED DEVICE UNSOLICITED RESULTS Final Result Performing Organization Address City/[facility] Co de Phone Number [facility] [address] [place] [address] * (ABNORMAL) POCT glucose meter (03/26/2025 12:28 PM EDT) POCT Glucose 254(H) 74 - 99 mg/dL [...] for testing. Comment 03/26/2025 12:30 PM EDT [facility] Operating System Programmer ID Tonja Olivares 12:30 PM EDT [facility] Device ID [id number] 03/26/2025 12:30 PM EDT [facility] Specimen Type POC Capillary 03/26/2025 12:30 PM EDT [facility] Blood Capillary blood specimen / Unknown 03/26/2025 12:28 PM EDT 03/26/2025 12:30 PM EDT us Musa Rosado MD LAB POINT OF CARE TE ST DOCKED DEVICE UNSOLICITED RESULTS Final Result Performing Organization Address City/[facility]/ZIP Co de Phone Number [facility] [address] [place] [address] * (ABNORMAL) POCT glucose meter (03/26/2025 8:40 [...] Comment 03/26/2025 8:42 AM EDT [facility] Operating System Programmer ID Tonja Olivares 8:42 AM EDT [facility] Device ID [id number] 03/26/2025 8:42 AM EDT [facility] Specimen Type POC Capillary 03/26/2025 8:42 AM EDT [facility] Blood Capillary blood specimen / Unknown 03/26/2025 8:40 AM EDT 03/26/2025 8:42 AM EDT Musa Rosado MD LAB POINT OF CARE TE ST DOCKED DEVICE UNSOLICITED RESULTS Final Result [facility] [address] [place] [address] * XR Chest 1 View (03/26/2025 5:53 [...] on 03/26/2025 9:51 AM La Nena March APRN IMG XR PROCEDURES Final Result * (ABNORMAL) Lipid panel (03/26/2025 3:50 AM EDT) Cholesterol, Plasma 76 <200 mg/dL 03/26/2025 4:55 AM EDT [facility] Comment: Cholesterol Reference Range (age >17 years): Desirable <200 mg/dL Borderline 200 to 239 mg/dL Undesirable >239 mg/dL HDL 22(L) >=40 mg/dL 03/26/2025 4:55 AM EDT [facility] Comment: HDL Cholesterol Reference Ranges (age >17 years): Female, acceptable > or = 50 mg/dL Male, acceptable > or = 40 mg/dL Triglycerides, Plasma 152(H) <150 mg/dL 03/26/2025 4:55 AM EDT [facility] Comment: Triglyceride Reference Range (age >17 years): Desirable: <150 mg/dL Borderline high: 150 to 199 mg/dL High: 200 to 499 mg/dL Very high: >499 mg/dL Increased risk of pancreatitis: >1000 mg/dL Cholesterol/HDL Ratio 3 03/26/2025 4:55 AM EDT [facility] LDL, Calculated 28 <100 mg/dL 4:55 AM EDT [facility] Comment: LDL Cholesterol Reference Range (age [...] 12 hours? No 03/26/2025 4:55 AM EDT [facility] Blood Venous blood specimen / Unknown Venipuncture / Unknown 03/26/2025 3:50 AM EDT 03/26/2025 4:26 AM EDT La Nena March TRAVEL COUNSELOR LAB BLOOD ORDERABLES Final Res ult Performing Organization Address City/[facility]/ZIP Co de Phone Number [facility] [address] [place] [address] * Magnesium (03/26/2025 3:50 AM EDT) Magnesium, Plasma 2.1 1.9 - 2.4 mg/dL 03/26/2025 4:55 AM EDT [facility] Blood Venous blood specimen / Unknown Venipuncture / Unknown 03/26/2025 3:50 AM EDT 03/26/2025 4:26 AM EDT La Nena March APRN LAB BLOOD ORDERABLES Final Res ult Performing Organization Address City/[facility]/ZIP Co de Phone Number [facility] [address] [place] [address] * (ABNORMAL) Comprehensive metabolic panel (03/26/2025 3:50 AM EDT) Glucose, Plasma 268(H) 74 - 99 mg/dL 03/26/2025 4:55 AM EDT [facility] BUN, Plasma 24(H) 7 - 21 mg/dL 03/26/2025 4:55 AM EDT [facility] Creatinine, Plasma 1.06 0.70 - 1.20 mg/dL 03/26/2025 4:55 AM EDT [facility] BUN/Creatinine Ratio 23 03/26/2025 4:55 AM EDT [facility] Sodium, Plasma 138 136 - 145 mmol/L 03/26/2025 4:55 AM EDT [facility] Potassium, Plasma 4.0 3.6 - 4.9 mmol/L 03/26/2025 4:55 AM EDT [facility] Chloride, Plasma 104 97 - 107 mmol/L 03/26/2025 4:55 AM EDT [facility] CO2, Plasma 25 22 - 29 mmol/L 03/26/2025 4:55 AM EDT [facility] Anion Gap 9 6 - 16 mmol/L 03/26/2025 4:55 AM EDT [facility] Total Calcium, Plasma 8.3(L) 8.9 - 10.2 mg/dL 03/26/2025 4:55 AM EDT [facility] Total Protein 5.9(L) 6.3 - 7.9 g/dL 03/26/2025 4:55 AM EDT [facility] Albumin, Plasma 3.2(L) 3.5 - 5.2 g/dL 03/26/2025 4:55 AM EDT [facility] AST, Plasma 18 10 - 50 U/L 03/26/2025 4:55 AM EDT [facility] ALT, Plasma 14 10 - 50 U/L 03/26/2025 4:55 AM EDT [facility] Alkaline Phosphatase, Plasma 43 40 - 115 U/L 03/26/2025 4:55 AM EDT [facility] Total Bilirubin, Plasma 0.5 0.2 - 1.1 mg/dL 03/26/2025 4:55 AM EDT [facility] eGFRcr 89.3 mL/min/1.7 3m*2 03/26/2025 4:55 AM EDT [facility] Comment:Reported eGFRcr in m L/min/1.73m2 is based the CKD-EPI 2020 equation that does not use a race coefficient. Blood Venous blood specimen / Unknown Venipuncture / Unknown 03/26/2025 3:50 AM EDT 03/26/2025 4:26 AM EDT us La Nena Ng March TRAVEL COUNSELOR LAB BLOOD ORDERABLES Final Res ult [facility] [address] [place] [address] * (ABNORMAL) Hemogram (CBC) (03/26/2025 3:50 AM EDT) WBC Count 4.53 3.70 - 10.30 10*3/uL LAB HEMATOLOGY METHOD 03/26/2025 4:36 AM EDT [facility] RBC Count 2.56(L) 4.60 - 6.10 10*6/uL LAB HEMATOLOGY METHOD 03/26/2025 4:36 AM EDT [facility] HGB 7.8(L) 13.7 - 17.5 g/dL LAB HEMATOLOGY METHOD 03/26/2025 4:36 AM EDT [facility] HCT 23.9(L) 40.0 - 51.0 % LAB HEMATOLOGY METHOD 03/26/2025 4:36 AM EDT [facility] Platelet Count 129(L) 155 - 369 10*3/uL LAB HEMATOLOGY METHOD 03/26/2025 4:36 AM EDT [facility] MCV 93 79 - 98 fL LAB HEMATOLOGY METHOD 03/26/2025 4:36 AM EDT [facility] MCH 30.5 26.0 - 32.0 pg LAB HEMATOLOGY METHOD 03/26/2025 4:36 AM EDT [facility] MCHC 32.6 30.7 - 35.5 g/dL LAB HEMATOLOGY METHOD 03/26/2025 4:36 AM EDT [facility] RDW 13.5 11.5 - 14.5 % LAB HEMATOLOGY METHOD 03/26/2025 4:36 AM EDT [facility] MPV 11.4 8.8 - 12.5 fL LAB HEMATOLOGY METHOD 03/26/2025 4:36 AM EDT [facility] nRBC 0.4(H) <=0.0 per 100 WBCs LAB HEMATOLOGY METHOD 03/26/2025 4:36 AM EDT [facility] Blood Venous blood specimen / Unknown Venipuncture / Unknown 03/26/2025 3:50 AM EDT 03/26/2025 4:27 AM EDT us La Nena March APRN LAB BLOOD ORDERABLES Final Res ult [facility] [address] [place] [address] * (ABNORMAL) POCT glucose meter (03/25/2025 9:52 PM EDT) POCT Glucose 210(H) 74 - 99 mg/dL 03/25/2025 9:54 PM EDT [facility] Comment:Accuracy of [...] Comment 03/25/2025 9:54 PM EDT [facility] Operating System Programmer ID Zaida Stearns 03/25/20 9:54 PM EDT [facility] Device ID [id number] 03/25/2025 9:54 PM EDT [facility] Specimen Type POC Capillary 03/25/2025 9:54 PM EDT [facility] Blood Capillary blood specimen / Unknown 03/25/2025 9:52 PM EDT 03/25/2025 9:54 PM EDT us Musa Rosado MD LAB POINT OF CARE TE ST DOCKED DEVICE UNSOLICITED RESULTS Final Result Performing Organization Address City/[facility]/ZIP Co de Phone Number [facility] [address] [place] [address] * (ABNORMAL) POCT glucose meter (03/25/2025 5:01 PM EDT) POCT Glucose 214(H) 74 - 99 mg/dL [...] Comment 03/25/2025 5:02 PM EDT [facility] Operating System Programmer ID Camille Espana 03/25/2025 5:02 PM EDT [facility] Device ID [id number] 03/25/2025 5:02 PM EDT [facility] Specimen Type POC Capillary 03/25/2025 5:02 PM EDT [facility] Blood Capillary blood specimen / Unknown 03/25/2025 5:01 PM EDT 03/25/2025 5:02 PM EDT us Musa Rosado MD LAB POINT OF CARE TE ST DOCKED DEVICE UNSOLICITED RESULTS Final Result Performing Organization Address [facility] de Phone Number [facility] [address] [place] [address] * (ABNORMAL) POCT glucose meter (03/25/2025 10:59 AM EDT) [facility] POCT Glucose 206(H) 74 - 99 mg/dL 03/25/2025 11:00 AM EDT [facility] Comment:Accuracy of a [...] for testing. Comment 03/25/2025 11:00 AM EDT [facility] Operating System Programmer ID Camille Espana 03/25/2025 11:00 AM EDT [facility] Device ID [id number] 03/25/2025 11:00 AM EDT [facility] Specimen Type POC Capillary 03/25/2025 11:00 AM EDT [facility] Blood Capillary blood specimen / Unknown 03/25/2025 10:59 AM EDT 03/25/2025 11:00 AM EDT us Musa Rosado MD LAB POINT OF CARE TE ST DOCKED DEVICE UNSOLICITED RESULTS Final Result Performing Organization Address City/[facility] Co de Phone Number [facility] [address] [place] [address] * (ABNORMAL) POCT glucose meter (03/25/2025 7:57 AM EDT) [facility] POCT Glucose 198(H) 74 - 99 mg/dL [...] Comment 03/25/2025 7:58 AM EDT [facility] Operating System Programmer ID Camille Espana 03/25/2025 7:58 AM EDT [facility] Device ID [id number] 03/25/2025 7:58 AM EDT [facility] Specimen Type POC Capillary 03/25/2025 7:58 AM EDT [facility] Blood Capillary blood specimen / Unknown 03/25/2025 7:57 AM EDT 03/25/2025 7:58 AM EDT us Musa Rosado MD LAB POINT OF CARE TE ST DOCKED DEVICE UNSOLICITED RESULTS Final Result Performing Organization Address City/[facility]/ZIP Co de Phone Number [facility] [address] [place] [address] * (ABNORMAL) Phosphorus, Plasma (03/25/2025 4:07 AM EDT) [facility] Phosphorus, Plasma 1.2(L) 2.5 - 4.5 mg/dL 03/25/2025 4:54 AM EDT [facility] Blood Venous blood specimen / Unknown Venipuncture / Unknown 03/25/2025 4:07 AM EDT 03/25/2025 4:20 AM EDT us Musa Rosado MD LAB BLOOD ORDERABLES Final R esult [facility] [address] [place] [address] * (ABNORMAL) Magnesium, Plasma (03/25/2025 4:07 AM EDT) Magnesium, Plasma 1.8(L) 1.9 - 2.4 mg/dL 03/25/2025 4:54 AM EDT [facility] Blood Venous blood specimen / Unknown Venipuncture / Unknown 03/25/2025 4:07 AM EDT 03/25/2025 4:20 AM EDT us Musa Rosado MD LAB BLOOD ORDERABLES Final R esult [facility] [address] [place] [address] * (ABNORMAL) CBC (03/25/2025 4:07 AM EDT) Pathologist [facility] WBC Count 6.01 3.70 - 10.30 10*3/uL LAB HEMATOLOGY METHOD 03/25/2025 4:30 AM EDT [facility] RBC Count 2.47(L) 4.60 - 6.10 10*6/uL LAB HEMATOLOGY METHOD 03/25/2025 4:30 AM EDT [facility] HGB 7.5(L) 13.7 - 17.5 g/dL LAB HEMATOLOGY METHOD 03/25/2025 4:30 AM EDT [facility] HCT 22.8(L) 40.0 - 51.0 % LAB HEMATOLOGY METHOD 03/25/2025 4:30 AM EDT [facility] Platelet Count 105(L) 155 - 369 10*3/uL LAB HEMATOLOGY METHOD 03/25/2025 4:30 AM EDT [facility] MCV 92 79 - 98 fL LAB HEMATOLOGY METHOD 03/25/2025 4:30 AM EDT [facility] MCH 30.4 26.0 - 32.0 pg LAB HEMATOLOGY METHOD 03/25/2025 4:30 AM EDT [facility] MCHC 32.9 30.7 - 35.5 g/dL LAB HEMATOLOGY METHOD 03/25/2025 4:30 AM EDT [facility] RDW 13.4 11.5 - 14.5 % LAB HEMATOLOGY METHOD 03/25/2025 4:30 AM EDT [facility] MPV 11.3 8.8 - 12.5 fL LAB HEMATOLOGY METHOD 03/25/2025 4:30 AM EDT [facility] nRBC 0.0 <=0.0 per 100 WBCs LAB HEMATOLOGY METHOD 03/25/2025 4:30 AM EDT [facility] Blood Venous blood specimen / Unknown Venipuncture / Unknown 03/25/2025 4:07 AM EDT 03/25/2025 4:23 AM EDT us Musa Rosado MD LAB BLOOD ORDERABLES Final R esult [facility] [address] [place] [address] * (ABNORMAL) Basic metabolic panel (03/25/2025 4:07 AM EDT) Glucose, Plasma 183(H) 74 - 99 mg/dL 03/25/2025 4:54 AM EDT [facility] BUN, Plasma 22(H) 7 - 21 mg/dL 03/25/2025 4:54 AM EDT [facility] Creatinine, Plasma 1.04 0.70 - 1.20 mg/dL 03/25/2025 4:54 AM EDT [facility] BUN/Creatinine Ratio 21 03/25/2025 4:54 AM EDT [facility] Sodium, Plasma 136 136 - 145 mmol/L 03/25/2025 4:54 AM EDT [facility] Potassium, Plasma 4.3 3.6 - 4.9 mmol/L 03/25/2025 4:54 AM EDT [facility] Chloride, Plasma 101 97 - 107 mmol/L 03/25/2025 4:54 AM EDT [facility] CO2, Plasma 26 22 - 29 mmol/L 03/25/2025 4:54 AM EDT [facility] Anion Gap 9 6 - 16 mmol/L 03/25/2025 4:54 AM EDT [facility] Total Calcium, Plasma 8.2(L) 8.9 - 10.2 mg/dL 03/25/2025 4:54 AM EDT [facility] eGFRcr 91.4 mL/min/1.7 3m*2 03/25/2025 4:54 AM EDT [facility] Comment:Reported eGFRcr in m L/min/1.73m2 is based the CKD-EPI 2020 equation that does not use a race coefficient. Blood Venous blood specimen / Unknown Venipuncture / Unknown 03/25/2025 4:07 AM EDT 03/25/2025 4:20 AM EDT Musa Rosado MD LAB BLOOD ORDERABLES Final R esult [facility] [address] [place] [address] * XR Chest 1 View (03/25/2025 2:52 [...] Maryjane Kay MD on 03/25/2025 4:51 AM us Musa Rosado MD IMG XR PROCEDURES Final Resu lt * (ABNORMAL) POCT glucose meter (03/24/2025 9:05 PM EDT) POCT Glucose 182(H) 74 - 99 mg/dL [...] for testing. Comment 03/24/2025 9:06 PM EDT [facility] Operating System Programmer ID [email or web address] 03/24/2025 9:06 PM EDT [facility] Device ID [id number] 03/24/2025 9:06 PM EDT [facility] Specimen Type POC Capillary 03/24/2025 9:06 PM EDT [facility] Blood Capillary blood specimen / Unknown 03/24/2025 9:05 PM EDT 03/24/2025 9:06 PM EDT us Musa Rosado MD LAB POINT OF CARE TE ST DOCKED DEVICE UNSOLICITED RESULTS Final Result Performing Organization Address City/State/[facility] Co de Phone Number [facility] [address] [place] [address] * (ABNORMAL) POCT glucose meter (03/24/2025 4:19 PM EDT) POCT Glucose 183(H) 74 - 99 mg/dL 03/24/2025 4:20 PM EDT [facility] Comment:Accuracy of [...] Comment 03/24/2025 4:20 PM EDT [facility]ALTH[facility]ARE [facility] Operating System Programmer ID Beverly Alonso 03/24/2025 4:20 PM EDT [facility] Device ID [id number] 03/24/2025 4:20 PM EDT [facility] Specimen Type POC Arterial 03/24/2025 4:20 PM EDT [facility] Blood Arterial blood specimen / Unknown 03/24/2025 4:19 PM EDT 03/24/2025 4:20 PM EDT us Musa Rosado MD LAB POINT OF CARE TE ST DOCKED DEVICE UNSOLICITED RESULTS Final Result Performing Organization Address City/[facility]/ZIP Co de Phone Number HEALTHCARE LAB [address] [place] [address] * (ABNORMAL) POCT glucose meter (03/24/2025 11:44 AM EDT) POCT Glucose 208(H) 74 - 99 mg/dL 03/24/2025 11:46 AM EDT [facility] Comment:Accuracy of [...] Comment 03/24/2025 11:46 AM EDT [facility]ALTH[facility]ARE [facility] Operating System Programmer ID Beverly Alonso 03/24/2025 11:46 AM EDT HEALTHCARE LAB Device ID [id number] 03/24/2025 11:46 AM EDT [facility]ALTH[facility] Specimen Type POC Arterial 03/24/2025 11:46 AM EDT [facility] Blood Arterial blood specimen / Unknown 03/24/2025 11:44 AM EDT 03/24/2025 11:46 AM EDT us Musa Rosado MD LAB POINT OF CARE TE ST DOCKED DEVICE UNSOLICITED RESULTS Final Result Performing Organization Address City/[facility]/ZIP Co de Phone Number HEALTHCARE LAB [address] [place] [address] * MD CRITICAL CARE, E/M 30-74 MINUTES (03/24/2025 11:33 [...] POCT glucose meter (03/24/2025 7:45 AM EDT) POCT Glucose 208(H) 74 - 99 mg/dL [...] for testing. Comment 03/24/2025 8:21 AM EDT [employer] LAB Operating System Programmer ID Beverly Alonso 03/24/2025 8:21 AM EDT [employer] LAB Device ID [id number] 03/24/2025 8:21 AM EDT HEALTHCARE LAB Specimen Type POC Arterial 03/24/2025 8:21 AM EDT [facility] Blood Arterial blood specimen / Unknown 03/24/2025 7:45 AM EDT 03/24/2025 8:21 AM EDT us Musa Rosado MD LAB POINT OF CARE TE ST DOCKED DEVICE UNSOLICITED RESULTS Final Result [facility] [address] [place] [address] * (ABNORMAL) POCT glucose meter (03/24/2025 5:56 AM EDT) Pathologist [facility] POCT Glucose 146(H) 74 - 99 mg/dL 03/24/2025 5:58 AM EDT HEALTHCARE LAB Comment:Accuracy of a [...] for testing. Comment 03/24/2025 5:58 AM EDT [facility] Operating System Programmer ID Yuri Diggs 03/24/2025 5:58 AM EDT [facility] Device ID [id number] 03/24/2025 5:58 AM EDT [facility] Specimen Type POC Capillary 03/24/2025 5:58 AM EDT [facility] Blood Capillary blood specimen / Unknown 03/24/2025 5:56 AM EDT 03/24/2025 5:58 AM EDT Musa Rosado MD LAB POINT OF CARE TE ST DOCKED DEVICE UNSOLICITED RESULTS Final Result [facility] [address] [place] [address] * (ABNORMAL) POCT glucose meter (03/24/2025 3:40 AM EDT) [facility] POCT Glucose 180(H) 74 - 99 mg/dL [...] for testing. Comment 03/24/2025 3:41 AM EDT [facility] Operating System Programmer ID Yuri Diggs 03/24/2025 3:41 AM EDT [facility] Device ID [id number] 03/24/2025 3:41 AM EDT [facility] Specimen Type POC Capillary 03/24/2025 3:41 AM EDT [facility] Blood Capillary blood specimen / Unknown 03/24/2025 3:40 AM EDT 03/24/2025 3:41 AM EDT Musa Rosado MD LAB POINT OF CARE TE ST DOCKED DEVICE UNSOLICITED RESULTS Final Result [facility] [address] [place] [address] * XR Chest 1 View (03/24/2025 3:14 AM EDT) Anatomical Region Laterality Modality Chest Digital Radiogra phy Impressions 03/24/2025 9:52 AM EDT Interval removal of the [place]-Brea catheter. Otherwise no significant interval change. CRITICAL RESULT: No. COMMUNICATION: Per this written report. Drafted by Milli Elkins MD on 03/24/2025 9:51 AM Final report signed by Milli Elkins MD on 03/24/2025 9:52 AM Narrative 03/24/2025 9:52 AM EDT CLINICAL INDICATION: Post-Op Cardiac Surgery TECHNIQUE: Single AP view of chest. COMPARISON: One day prior FINDINGS: Interval removal of the [place]-Brea catheter. The rest of the portal hardware [...] day prior FINDINGS: Interval removal of the [place]-Brea catheter. The rest of the portalhardware unchanged. The cardiac and mediastinal contours are unchanged. Nosizable pneumothorax. Small left pleural effusion similar to prior.Persistent bilateral perihilar and bibasal lung opacities may representatelectasis. No new lung consolidation. Persistent low lung volume. IMPRESSION: Interval removal of the [place]-Brea catheter. Otherwise no significantinterval change. CRITICAL RESULT: No. COMMUNICATION: Per this written report. Drafted by Milli Elkins MD on 03/24/2025 9:51 AM Final report signed by Milli Elkins MD on 03/24/2025 9:52 AM Musa Rosado MD IMG XR PROCEDURES Final Resu lt * (ABNORMAL) POCT glucose meter (03/24/2025 1:46 AM EDT) POCT Glucose 143(H) 74 - 99 mg/dL 03/24/2025 1:48 AM EDT [facility] Comment:Accuracy of a glucos e result [...] for testing. Comment 03/24/2025 1:48 AM EDT [facility] Operating System Programmer ID Yuri Diggs 03/24/2025 1:48 AM EDT [facility] Device ID [id number] 03/24/2025 1:48 AM EDT [facility] Specimen Type POC Capillary 03/24/2025 1:48 AM EDT [facility] Blood Capillary blood specimen / Unknown 03/24/2025 1:46 AM EDT 03/24/2025 1:48 AM EDT us Musa Rosado MD LAB POINT OF CARE TE ST DOCKED DEVICE UNSOLICITED RESULTS Final Result [facility] [address] [place] [id number] * (ABNORMAL) Blood gas, arterial (03/24/2025 12:08 AM EDT) pH, Arterial 7.42 7.35 - 7.45 LAB HEMATOLOGY METHOD 03/24/2025 12:18 AM EDT [facility] pCO2, Arterial 43 32 - 45 mmHg LAB HEMATOLOGY METHOD 03/24/2025 12:18 AM EDT [facility] pO2, Arterial 58(LL) 83 - 108 mmHg LAB HEMATOLOGY METHOD 03/24/2025 12:18 AM EDT [facility] SO2, Measured, Arterial 90(L) 94 - 98 % LAB HEMATOLOGY METHOD 03/24/2025 12:18 AM EDT [facility] Base Excess, Arterial 2.9 -2.0 - 3.0 mmol/L LAB HEMATOLOGY METHOD 03/24/2025 12:18 AM EDT [facility] Bicarbonate, Calculated, Arterial 28(H) 22 - 26 mmol/L LAB HEMATOLOGY METHOD 03/24/2025 12:18 AM EDT [facility] Hematocrit, Whole Blood 26.5(L) 40.0 - 51.0 % LAB HEMATOLOGY METHOD 03/24/2025 12:18 AM EDT [facility] Sodium, Whole Blood 138 136 - 145 mmol/L LAB HEMATOLOGY METHOD 03/24/2025 12:18 AM EDT [facility] Potassium, Whole Blood 4.2 3.6 - 4.9 mmol/L LAB HEMATOLOGY METHOD 03/24/2025 12:18 AM EDT [facility] Chloride, Whole Blood 104 97 - 107 mmol/L LAB HEMATOLOGY METHOD 03/24/2025 12:18 AM EDT [facility] Glucose, Whole Blood 161(H) 74 - 99 mg/dL LAB HEMATOLOGY METHOD 03/24/2025 12:18 AM EDT [facility] Ionized Calcium, Whole Blood 4.6 4.6 - 5.1 mg/dL LAB HEMATOLOGY METHOD 03/24/2025 12:18 AM EDT [facility] Lactate, Arterial, Whole Blood 1.1 0.5 - 1.6 mmol/L LAB HEMATOLOGY METHOD 03/24/2025 12:18 AM EDT [facility] Blood Arterial blood specimen / Unknown Arterial Puncture / Unknown 03/24/2025 12:08 AM EDT 03/24/2025 12:14 AM EDT us Musa Rosado MD LAB BLOOD ORDERABLES Final R esult [facility] [address] [place] [address] * (ABNORMAL) Phosphorus, Plasma (03/24/2025 12:07 AM EDT) [facility] Phosphorus, Plasma 2.1(L) 2.5 - 4.5 mg/dL 03/24/2025 12:44 AM EDT [facility] Blood Arterial blood specimen / Unknown Venipuncture / Unknown 03/24/2025 12:07 AM EDT 03/24/2025 12:16 AM EDT Musa Rosado MD LAB BLOOD ORDERABLES Final R esult [facility] [address] [place] [address] * Magnesium, Plasma (03/24/2025 12:07 AM EDT) [facility] Magnesium, Plasma 2.1 1.9 - 2.4 mg/dL 03/24/2025 12:44 AM EDT [facility] Blood Arterial blood specimen / Unknown Venipuncture / Unknown 03/24/2025 12:07 AM EDT 03/24/2025 12:16 AM EDT us Musa Rosado MD LAB BLOOD ORDERABLES Final R esult [facility] [address] [place] [address] * (ABNORMAL) CBC (03/24/2025 12:07 AM EDT) [facility] WBC Count 11.14(H) 3.70 - 10.30 10*3/uL LAB HEMATOLOGY METHOD 03/24/2025 12:26 AM EDT [facility] RBC Count 2.80(L) 4.60 - 6.10 10*6/uL LAB HEMATOLOGY METHOD 03/24/2025 12:26 AM EDT [facility] HGB 8.5(L) 13.7 - 17.5 g/dL LAB HEMATOLOGY METHOD 03/24/2025 12:26 AM EDT [facility] HCT 26.3(L) 40.0 - 51.0 % LAB HEMATOLOGY METHOD 03/24/2025 12:26 AM EDT [facility] Platelet Count 121(L) 155 - 369 10*3/uL LAB HEMATOLOGY METHOD 03/24/2025 12:26 AM EDT [facility] MCV 94 79 - 98 fL LAB HEMATOLOGY METHOD 03/24/2025 12:26 AM EDT [facility] MCH 30.4 26.0 - 32.0 pg LAB HEMATOLOGY METHOD 03/24/2025 12:26 AM EDT [facility] MCHC 32.3 30.7 - 35.5 g/dL LAB HEMATOLOGY METHOD 03/24/2025 12:26 AM EDT [facility] RDW 14.1 11.5 - 14.5 % LAB HEMATOLOGY METHOD 03/24/2025 12:26 AM EDT [facility] MPV 11.4 8.8 - 12.5 fL LAB HEMATOLOGY METHOD 03/24/2025 12:26 AM EDT [facility] nRBC 0.0 <=0.0 per 100 WBCs LAB HEMATOLOGY METHOD 03/24/2025 12:26 AM EDT [facility] Blood Arterial blood specimen / Unknown Venipuncture / Unknown 03/24/2025 12:07 AM EDT 03/24/2025 12:17 AM EDT us Musa Rosado MD LAB BLOOD ORDERABLES Final R esult [facility] [address] [place] [address] * (ABNORMAL) Basic metabolic panel (03/24/2025 12:07 AM EDT) Glucose, Plasma 164(H) 74 - 99 mg/dL 03/24/2025 12:44 AM EDT [facility] BUN, Plasma 21 7 - 21 mg/dL 03/24/2025 12:44 AM EDT [facility] Creatinine, Plasma 1.13 0.70 - 1.20 mg/dL 03/24/2025 12:44 AM EDT [facility] BUN/Creatinine Ratio 03/24/2025 12:44 AM EDT [facility] Sodium, Plasma 137 136 - 145 mmol/L 03/24/2025 12:44 AM EDT [facility] Potassium, Plasma 4.4 3.6 - 4.9 mmol/L 03/24/2025 12:44 AM EDT [facility] Chloride, Plasma 104 97 - 107 mmol/L 03/24/2025 12:44 AM EDT [facility] CO2, Plasma 25 22 - 29 mmol/L 03/24/2025 12:44 AM EDT [facility] Anion Gap 8 6 - 16 mmol/L 03/24/2025 12:44 AM EDT [facility] Total Calcium, Plasma 8.4(L) 8.9 - 10.2 mg/dL 03/24/2025 12:44 AM EDT [facility] eGFRcr 82.7 mL/min/1.7 3m*2 03/24/2025 12:44 AM EDT [facility] Comment:Reported eGFRcr in m L/min/1.73m2 is based the CKD-EPI 2020 equation that does not use a race coefficient. Blood Arterial blood specimen / Unknown Venipuncture / Unknown 03/24/2025 12:07 AM EDT 03/24/2025 12:16 AM EDT us Musa Rosado MD LAB BLOOD ORDERABLES Final R esult [facility] [address] [place] [address] * (ABNORMAL) POCT glucose meter (03/23/2025 9:43 PM EDT) Pathologist [facility] POCT Glucose 176(H) 74 - 99 mg/dL 03/23/2025 9:44 PM EDT [facility] Comment:Accuracy of a [...] Comment 03/23/2025 9:44 PM EDT [facility] Operating System Programmer ID Dontae Yuri 03/23/2025 9:44 PM EDT [facility] Device ID [id number] 03/23/2025 9:44 PM EDT [facility] Specimen Type POC Capillary 03/23/2025 9:44 PM EDT [facility] Blood Capillary blood specimen / Unknown 03/23/2025 9:43 PM EDT 03/23/2025 9:44 PM EDT Musa Rosado MD LAB POINT OF CARE TE ST DOCKED DEVICE UNSOLICITED RESULTS Final Result Performing Organization Address City/[facility] Co de Phone Number [facility] [address] [place] [address] * (ABNORMAL) POCT glucose meter (03/23/2025 7:55 PM EDT) [facility] POCT Glucose 140(H) 74 - 99 mg/dL [...] 03/23/2025 7:57 PM EDT [facility] Operating System Programmer ID Yuri Diggs 03/23/2025 7:57 PM EDT [facility] Device ID [id number] 03/23/2025 7:57 PM EDT [facility] Specimen Type POC Capillary 03/23/2025 7:57 PM EDT [facility] Blood Capillary blood specimen / Unknown 03/23/2025 7:55 PM EDT 03/23/2025 7:57 PM EDT us Musa Rosado MD LAB POINT OF CARE TE ST DOCKED DEVICE UNSOLICITED RESULTS Final Result Performing Organization Address City/[facility] Co de Phone Number [facility] [address] [place] [address] * (ABNORMAL) POCT glucose meter (03/23/2025 6:27 PM EDT) Pathologist [facility] POCT Glucose 163(H) 74 - 99 mg/dL [...] for testing. Comment 03/23/2025 6:29 PM EDT [facility] Operating System Programmer ID Jose Alberto Collins 03/23/2025 6:29 PM EDT [facility] Device ID [id number] 03/23/2025 6:29 PM EDT [facility] Specimen Type POC Arterial 03/23/2025 6:29 PM EDT [facility] Blood Arterial blood specimen / Unknown 03/23/2025 6:27 PM EDT 03/23/2025 6:29 PM EDT Musa Rosado MD LAB POINT OF CARE TE ST DOCKED DEVICE UNSOLICITED RESULTS Final Result Performing Organization Address City/State/[facility] Co de Phone Number [facility] [address] [place] [address] * (ABNORMAL) POCT glucose meter (03/23/2025 4:12 PM EDT) [facility] POCT Glucose 159(H) 74 - 99 mg/dL [...] for testing. Comment 03/23/2025 4:14 PM EDT [facility] Operating System Programmer ID Jose Alberto Collins 03/23/2025 4:14 PM EDT [facility] Device ID [id number] 03/23/2025 4:14 PM EDT [facility] Specimen Type POC Arterial 03/23/2025 4:14 PM EDT [facility] Blood Arterial blood specimen / Unknown 03/23/2025 4:12 PM EDT 03/23/2025 4:14 PM EDT us Musa Rosado MD LAB POINT OF CARE TE ST DOCKED DEVICE UNSOLICITED RESULTS Final Result Performing Organization Address [facility] de Phone Number [facility] [address] [place] [address] * (ABNORMAL) POCT glucose meter (03/23/2025 1:57 PM EDT) POCT Glucose 129(H) 74 - 99 mg/dL [...] Comment 03/23/2025 1:58 PM EDT [facility] Operating System Programmer ID Jose Alberto Collins 03/23/2025 1:58 PM EDT [facility] Device ID [id number] 03/23/2025 1:58 PM EDT [facility] Specimen Type POC Arterial 03/23/2025 1:58 PM EDT [facility] Blood Arterial blood specimen / Unknown 03/23/2025 1:57 PM EDT 03/23/2025 1:58 PM EDT us Musa Rosado MD LAB POINT OF CARE TE ST DOCKED DEVICE UNSOLICITED RESULTS Final Result Performing Organization Address [facility] de Phone Number [facility] [address] [place] [address] * MD CRITICAL CARE, E/M 30-74 MINUTES (03/23/2025 12:34 [...] POCT glucose meter (03/23/2025 11:59 AM EDT) POCT Glucose 126(H) 74 - 99 mg/dL [...] for testing. Comment 03/23/2025 12:00 PM EDT [facility] Operating System Programmer ID Jose Alberto Collins 03/23/2025 12:00 PM EDT [facility] Device ID [id number] 03/23/2025 12:00 PM EDT [facility] Specimen Type POC Arterial 03/23/2025 12:00 PM EDT [facility] Blood Arterial blood specimen / Unknown 03/23/2025 11:59 AM EDT 03/23/2025 12:00 PM EDT us Musa Rosado MD LAB POINT OF CARE TE ST DOCKED DEVICE UNSOLICITED RESULTS Final Result Performing Organization Address City/State/[facility] Co de Phone Number [facility] [address] [place] [address] * (ABNORMAL) POCT glucose meter (03/23/2025 10:06 AM EDT) POCT Glucose 143(H) 74 - [...] Comment 03/23/2025 10:07 AM EDT [facility] Operating System Programmer ID Jose Alberto Collins 03/23/2025 10:07 AM EDT [facility] Device ID [id number] 03/23/2025 10:07 AM EDT [facility] Specimen Type POC Arterial 03/23/2025 10:07 AM EDT [facility] Blood Arterial blood specimen / Unknown 03/23/2025 10:06 AM EDT 03/23/2025 10:07 AM EDT Musa Rosado MD LAB POINT OF CARE TE ST DOCKED DEVICE UNSOLICITED RESULTS Final Result Performing Organization Address City/State/[facility] Co de Phone Number [facility] [address] [place] [address] * (ABNORMAL) POCT glucose meter (03/23/2025 8:01 AM EDT) [facility] POCT Glucose 142(H) 74 - 99 mg/dL 03/23/2025 8:03 AM EDT [facility] Comment:Accuracy of a [...] for testing. Comment 03/23/2025 8:03 AM EDT [facility] Operating System Programmer ID Jose Alberto Collins 03/23/2025 8:03 AM EDT [facility] Device ID [id number] 03/23/2025 8:03 AM EDT [facility] Specimen Type POC Arterial 03/23/2025 8:03 AM EDT [facility] Blood Arterial blood specimen / Unknown 03/23/2025 8:01 AM EDT 03/23/2025 8:03 AM EDT us Musa Rosado MD LAB POINT OF CARE TE ST DOCKED DEVICE UNSOLICITED RESULTS Final Result [facility] [address] [place] [address] * (ABNORMAL) Blood gas panel, arterial (03/23/2025 6:18 AM EDT) pH, Arterial 7.39 7.35 - 7.45 LAB HEMATOLOGY METHOD 03/23/2025 6:31 AM EDT [facility] pCO2, Arterial 41 32 - 45 mmHg LAB HEMATOLOGY METHOD 03/23/2025 6:31 AM EDT [facility] pO2, Arterial 75(L) 83 - 108 mmHg LAB HEMATOLOGY METHOD 03/23/2025 6:31 AM EDT [facility] SO2, Measured, Arterial 94 94 - 98 % LAB HEMATOLOGY METHOD 03/23/2025 6:31 AM EDT [facility] Base Excess, Arterial -0.2 -2.0 - 3.0 mmol/L LAB HEMATOLOGY METHOD 03/23/2025 6:31 AM EDT [facility] Bicarbonate, Calculated, Arterial 25 22 - 26 mmol/L LAB HEMATOLOGY METHOD 03/23/2025 6:31 AM EDT [facility] Hematocrit, Whole Blood 28.9(L) 40.0 - 51.0 % LAB HEMATOLOGY METHOD 03/23/2025 6:31 AM EDT [facility] Sodium, Whole Blood 141 136 - 145 mmol/L LAB HEMATOLOGY METHOD 03/23/2025 6:31 AM EDT [facility] Potassium, Whole Blood 4.1 3.6 - 4.9 mmol/L LAB HEMATOLOGY METHOD 03/23/2025 6:31 AM EDT [facility] Chloride, Whole Blood 108(H) 97 - 107 mmol/L LAB HEMATOLOGY METHOD 03/23/2025 6:31 AM EDT [facility] Glucose, Whole Blood 162(H) 74 - 99 mg/dL LAB HEMATOLOGY METHOD 03/23/2025 6:31 AM EDT [facility] Ionized Calcium, Whole Blood 4.4(L) 4.6 - 5.1 mg/dL LAB HEMATOLOGY METHOD 03/23/2025 6:31 AM EDT [facility] Lactate, Arterial, Whole Blood 1.9(H) 0.5 - 1.6 mmol/L LAB HEMATOLOGY METHOD 03/23/2025 6:31 AM EDT [facility] Blood Arterial blood specimen / Unknown Arterial Puncture / Unknown 03/23/2025 6:18 AM EDT 03/23/2025 6:27 AM EDT us Musa Rosado MD LAB BLOOD ORDERABLES Final R esult Performing Organization Address City/[facility]/ZIP Co de Phone Number [facility] [address] [place] [address] * (ABNORMAL) POCT glucose meter (03/23/2025 6:11 AM EDT) [facility] POCT Glucose 154(H) 74 - 99 mg/dL [...] Comment 03/23/2025 6:13 AM EDT [facility] Operating System Programmer ID Kelly Haynes 03/23/2025 6:13 AM EDT [facility] Device ID [id number] 03/23/2025 6:13 AM EDT [facility] Specimen Type POC Arterial 03/23/2025 6:13 AM EDT [facility] Blood Arterial blood specimen / Unknown 03/23/2025 6:11 AM EDT 03/23/2025 6:13 AM EDT us Musa Rosado MD LAB POINT OF CARE TE ST DOCKED DEVICE UNSOLICITED RESULTS Final Result Performing Organization Address City/[facility]/ZIP Co de Phone Number [facility] [address] [place] [address] * ECG Adult (03/23/2025 4:28 AM EDT) EKG DIAGNOSIS CLASS Abnormal MUSE ECG Ventricular Rate 77 BPM MUSE ECG Atrial Rate 77 BPM MUSE ECG MD Interval 150 ms MUSE ECG QRSD Interval 78 ms MUSE ECG QT Interval 366 ms MUSE ECG QTC Interval 414 ms MUSE ECG P [place] 49 degrees MUSE ECG R [place] -7 degrees MUSE ECG T Wave [place] -4 degrees MUSE ECG Diagnosis Normal sinus rhythm MUSE ECG Diagnosis ST elevation, consider early repolarization , pericarditis, or injury MUSE ECG Diagnosis Nonspecific T wave abnormality MUSE ECG Diagnosis Need clinical information and correlation MUSE ECG Diagnosis MUSE ECG Diagnosis Confirmed by Jarett Steen ([id number]) on 03/23/2025 8:36:37 AM MUSE ECG 03/23/2025 4:28 AM EDT 03/23/2025 8:36 AM EDT us Musa Rosado MD ECG ORDERABLES Final Result Performing Organization Address City/[facility] Co de Phone Number MUSE ECG * (ABNORMAL) POCT glucose meter (03/23/2025 3:59 AM EDT) POCT Glucose 162(H) 74 - 99 mg/dL [...] 03/23/2025 4:01 AM EDT [facility] Operating System Programmer ID Dallas Ojaswi 03/23/2025 4:01 AM EDT [facility] Device ID [id number] 03/23/2025 4:01 AM EDT [facility] Specimen Type POC Arterial 03/23/2025 4:01 AM EDT [facility] Blood Arterial blood specimen / Unknown 03/23/2025 3:59 AM EDT 03/23/2025 4:01 AM EDT Musa Rosado MD LAB POINT OF CARE TE ST DOCKED DEVICE UNSOLICITED RESULTS Final Result Performing Organization Address City/State/[facility] Co de Phone Number [facility] [address] [place] [address] * Phosphorus, Plasma (03/23/2025 3:56 AM EDT) Phosphorus, Plasma 3.7 2.5 - 4.5 mg/dL 03/23/2025 4:40 AM EDT [facility] Blood Arterial blood specimen / Unknown Arterial Puncture / Unknown 03/23/2025 3:56 AM EDT 03/23/2025 4:12 AM EDT Musa Rosado MD LAB BLOOD ORDERABLES Final R esult [facility] [address] [place] [address] * Magnesium, Plasma (03/23/2025 3:56 AM EDT) Magnesium, Plasma 2.2 1.9 - 2.4 mg/dL 03/23/2025 4:40 AM EDT [facility] Blood Arterial blood specimen / Unknown Arterial Puncture / Unknown 03/23/2025 3:56 AM EDT 03/23/2025 4:12 AM EDT Musa Rosado MD LAB BLOOD ORDERABLES Final R esult [facility] [address] [place] [address] * (ABNORMAL) Basic metabolic panel (03/23/2025 3:56 AM EDT) Glucose, Plasma 159(H) 74 - 99 mg/dL 03/23/2025 4:40 AM EDT [facility] BUN, Plasma 18 7 - 21 mg/dL 03/23/2025 4:40 AM EDT [facility] Creatinine, Plasma 1.09 0.70 - 1.20 mg/dL 03/23/2025 4:40 AM EDT [facility] BUN/Creatinine Ratio 17 03/23/2025 4:40 AM EDT [facility] Sodium, Plasma 140 136 - 145 mmol/L 03/23/2025 4:40 AM EDT [facility] Potassium, Plasma 4.2 3.6 - 4.9 mmol/L 03/23/2025 4:40 AM EDT [facility] Chloride, Plasma 109(H) 97 - 107 mmol/L 03/23/2025 4:40 AM EDT [facility] CO2, Plasma 22 22 - 29 mmol/L 03/23/2025 4:40 AM EDT [facility] Anion Gap 9 6 - 16 mmol/L 03/23/2025 4:40 AM EDT [facility] Total Calcium, Plasma 8.4(L) 8.9 - 10.2 mg/dL 03/23/2025 4:40 AM EDT [facility] eGFRcr 86.4 mL/min/1.7 3m*2 03/23/2025 4:40 AM EDT [facility] Comment:Reported eGFRcr in m L/min/1.73m2 is based the CKD-EPI 2020 equation that does not use a race coefficient. Blood Arterial blood specimen / Unknown Arterial Puncture / Unknown 03/23/2025 3:56 AM EDT 03/23/2025 4:12 AM EDT us Musa Rosado MD LAB BLOOD ORDERABLES Final R esult [facility] [address] [place] [address] * (ABNORMAL) Blood gas, arterial (03/23/2025 3:56 AM EDT) pH, Arterial 7.40 7.35 - 7.45 LAB HEMATOLOGY METHOD 03/23/2025 4:11 AM EDT [facility] pCO2, Arterial 40 32 - 45 mmHg LAB HEMATOLOGY METHOD 03/23/2025 4:11 AM EDT [facility] pO2, Arterial 67(L) 83 - 108 mmHg LAB HEMATOLOGY METHOD 03/23/2025 4:11 AM EDT [facility] SO2, Measured, Arterial 92(L) 94 - 98 % LAB HEMATOLOGY METHOD 03/23/2025 4:11 AM EDT [facility] Base Excess, Arterial 0.0 -2.0 - 3.0 mmol/L LAB HEMATOLOGY METHOD 03/23/2025 4:11 AM EDT [facility] Bicarbonate, Calculated, Arterial 25 22 - 26 mmol/L LAB HEMATOLOGY METHOD 03/23/2025 4:11 AM EDT [facility] Hematocrit, Whole Blood 29.5(L) 40.0 - 51.0 % LAB HEMATOLOGY METHOD 03/23/2025 4:11 AM EDT [facility] Sodium, Whole Blood 142 136 - 145 mmol/L LAB HEMATOLOGY METHOD 03/23/2025 4:11 AM EDT [facility] Potassium, Whole Blood 4.1 3.6 - 4.9 mmol/L LAB HEMATOLOGY METHOD 03/23/2025 4:11 AM EDT [facility] Chloride, Whole Blood 108(H) 97 - 107 mmol/L LAB HEMATOLOGY METHOD 03/23/2025 4:11 AM EDT [facility] Glucose, Whole Blood 154(H) 74 - 99 mg/dL LAB HEMATOLOGY METHOD 03/23/2025 4:11 AM EDT [facility] Ionized Calcium, Whole Blood 4.4(L) 4.6 - 5.1 mg/dL LAB HEMATOLOGY METHOD 03/23/2025 4:11 AM EDT [facility] Lactate, Arterial, Whole Blood 1.8(H) 0.5 - 1.6 mmol/L LAB HEMATOLOGY METHOD 03/23/2025 4:11 AM EDT [facility] Blood Arterial blood specimen / Unknown Arterial Puncture / Unknown 03/23/2025 3:56 AM EDT 03/23/2025 4:09 AM EDT us Musa Rosado MD LAB BLOOD ORDERABLES Final R esult [facility] [address] [place] [address] * Potassium, Plasma (03/23/2025 3:56 AM EDT) Potassium, Plasma 4.2 3.6 - 4.9 mmol/L 03/23/2025 4:40 AM EDT [facility] Blood Arterial blood specimen / Unknown Arterial Puncture / Unknown 03/23/2025 3:56 AM EDT 03/23/2025 4:12 AM EDT us Musa Rosado MD LAB BLOOD ORDERABLES Final R esult [facility] [address] [place] [address] * (ABNORMAL) Blood gas panel with oximetry, mixed venous (03/23/2025 3:53 AM EDT) pH, Mixed Venous 7.37 7.32 - 7.43 LAB HEMATOLOGY METHOD 03/23/2025 4:11 AM EDT [facility] pCO2, Mixed Venous 46 40 - 55 mmHg LAB HEMATOLOGY METHOD 03/23/2025 4:11 AM EDT [facility] pO2, Mixed Venous 34 25 - 40 mmHg LAB HEMATOLOGY METHOD 03/23/2025 4:11 AM EDT [facility] SO2, Measured, Mixed Venous 63(L) 65 - 80 % LAB HEMATOLOGY METHOD 03/23/2025 4:11 AM EDT [facility] Bicarbonate, Calculated, Mixed Venous 26 22 - 26 mmol/L LAB HEMATOLOGY METHOD 03/23/2025 4:11 AM EDT [facility] Base Excess, Mixed Venous 0.4 -2.0 - 3.0 mmol/L LAB HEMATOLOGY METHOD 03/23/2025 4:11 AM EDT [facility] Hematocrit, Whole Blood 30.3(L) 40.0 - 51.0 % LAB HEMATOLOGY METHOD 03/23/2025 4:11 AM EDT [facility] Sodium, Whole Blood 142 136 - 145 mmol/L LAB HEMATOLOGY METHOD 03/23/2025 4:11 AM EDT [facility] Potassium, Whole Blood 4.0 3.6 - 4.9 mmol/L LAB HEMATOLOGY METHOD 03/23/2025 4:11 AM EDT [facility] Chloride, Whole Blood 109(H) 97 - 107 mmol/L LAB HEMATOLOGY METHOD 03/23/2025 4:11 AM EDT [facility] Ionized Calcium, Whole Blood 4.4(L) 4.6 - 5.1 mg/dL LAB HEMATOLOGY METHOD 03/23/2025 4:11 AM EDT [facility] Glucose, Whole Blood 152(H) 74 - 99 mg/dL LAB HEMATOLOGY METHOD 03/23/2025 4:11 AM EDT [facility] Oxyhemoglobin, Mixed Venous, Whole Blood 61.7 40.0 - 70.0 % LAB HEMATOLOGY METHOD 03/23/2025 4:11 AM EDT [facility] Hemoglobin Reduced, Mixed Venous, Whole Blood 36.7 % LAB HEMATOLOGY METHOD 03/23/2025 4:11 AM EDT [facility] Total Hemoglobin, Mixed Venous, Whole Blood 9.9(L) 13.7 - 17.5 g/dL LAB HEMATOLOGY METHOD 03/23/2025 4:11 AM EDT [facility] Blood Mixed venous blood specimen / Unknown Venipuncture / Unknown 03/23/2025 3:53 AM EDT 03/23/2025 4:09 AM EDT us Musa Rosado MD LAB BLOOD ORDERABLES Final R esult Performing Organization Address City/State/[facility] Co de Phone Number [facility] [address] [place] [address] * ECG Adult - POD 1 (03/23/2025 2:49 AM EDT) EKG DIAGNOSIS CLASS Abnormal MUSE ECG Ventricular Rate 76 BPM MUSE ECG Atrial Rate 76 BPM MUSE ECG MD Interval 118 ms MUSE ECG QRSD Interval 80 ms MUSE ECG QT Interval 362 ms MUSE ECG QTC Interval 407 ms MUSE ECG P [place] 46 degrees MUSE ECG R [place] -11 degrees MUSE ECG T Wave [place] -15 degrees MUSE ECG Diagnosis Poor data [...] MUSE ECG Diagnosis Confirmed by Jarett Steen ([id number]) on 03/23/2025 8:12:41 AM MUSE ECG 03/23/2025 [...] Maryjane Kay MD on 03/23/2025 6:09 AM us Musa Rosado MD IMG XR PROCEDURES Final Resu lt * (ABNORMAL) POCT glucose meter (03/23/2025 2:03 AM EDT) POCT Glucose 164(H) 74 - 99 mg/dL 03/23/2025 2:05 AM EDT [facility] Comment:Accuracy of a glucos e result [...] Comment 03/23/2025 2:05 AM EDT [facility] Operating System Programmer ID Kelly Haynes 03/23/2025 2:05 AM EDT [facility] Device ID [id number] 03/23/2025 2:05 AM EDT [facility] Specimen Type POC Arterial 03/23/2025 2:05 AM EDT [facility] Blood Arterial blood specimen / Unknown 03/23/2025 2:03 AM EDT 03/23/2025 2:05 AM EDT Musa Rosado MD LAB POINT OF CARE TE ST DOCKED DEVICE UNSOLICITED RESULTS Final Result Performing Organization Address City/[facility] Co de Phone Number [facility] [address] [place] [address] * Potassium, Plasma (03/23/2025 12:14 AM EDT) Potassium, Plasma 4.4 3.6 - 4.9 mmol/L 03/23/2025 12:51 AM EDT [facility] Blood Arterial blood specimen / Unknown Arterial Puncture / Unknown 03/23/2025 12:14 AM EDT 03/23/2025 12:30 AM EDT us Musa Rosado MD LAB BLOOD ORDERABLES Final R esult Performing Organization Address City/[facility]/ZIP Co de Phone Number [facility] [address] [place] [address] * (ABNORMAL) CBC (03/23/2025 12:13 AM EDT) WBC Count 11.73(H) 3.70 - 10.30 10*3/uL LAB HEMATOLOGY METHOD 03/23/2025 12:42 AM EDT [facility] RBC Count 3.28(L) 4.60 - 6.10 10*6/uL LAB HEMATOLOGY METHOD 03/23/2025 12:42 AM EDT [facility] HGB 10.1(L) 13.7 - 17.5 g/dL LAB HEMATOLOGY METHOD 03/23/2025 12:42 AM EDT [facility] HCT 29.6(L) 40.0 - 51.0 % LAB HEMATOLOGY METHOD 03/23/2025 12:42 AM EDT [facility] Platelet Count 138(L) 155 - 369 10*3/uL LAB HEMATOLOGY METHOD 03/23/2025 12:42 AM EDT [facility] MCV 90 79 - 98 fL LAB HEMATOLOGY METHOD 03/23/2025 12:42 AM EDT [facility] MCH 30.8 26.0 - 32.0 pg LAB HEMATOLOGY METHOD 03/23/2025 12:42 AM EDT [facility] MCHC 34.1 30.7 - 35.5 g/dL LAB HEMATOLOGY METHOD 03/23/2025 12:42 AM EDT [facility] RDW 13.7 11.5 - 14.5 % LAB HEMATOLOGY METHOD 03/23/2025 12:42 AM EDT [facility] MPV 11.3 8.8 - 12.5 fL LAB HEMATOLOGY METHOD 03/23/2025 12:42 AM EDT [facility] nRBC 0.0 <=0.0 per 100 WBCs LAB HEMATOLOGY METHOD 03/23/2025 12:42 AM EDT [facility] Blood Arterial blood specimen / Unknown Arterial Puncture / Unknown 03/23/2025 12:13 AM EDT 03/23/2025 12:32 AM EDT Musa Rosado MD LAB BLOOD ORDERABLES Final R esult [facility] [address] [place] [address] * (ABNORMAL) Hematocrit (03/23/2025 12:13 AM EDT) HCT 29.6(L) 40.0 - 51.0 % LAB HEMATOLOGY METHOD 03/23/2025 12:42 AM EDT [facility] Blood Arterial blood specimen / Unknown Arterial Puncture / Unknown 03/23/2025 12:13 AM EDT 03/23/2025 12:32 AM EDT us Musa Rosado MD LAB BLOOD ORDERABLES Final R esult Performing Organization Address City/[facility]/ZIP Co de Phone Number [facility] [address] [place] [address] * (ABNORMAL) POCT glucose meter (03/23/2025 12:10 AM EDT) Pathologist [facility] POCT Glucose 168(H) 74 - 99 mg/dL 03/23/2025 12:11 AM EDT [facility] Comment:Accuracy of a [...] for testing. Comment 03/23/2025 12:11 AM EDT [facility] Operating System Programmer ID Piya, Ojaswi 03/23/2025 12:11 AM EDT [facility] Device ID [id number] 03/23/2025 12:11 AM EDT [facility] Specimen Type POC Arterial 03/23/2025 12:11 AM EDT [facility] Blood Arterial blood specimen / Unknown 03/23/2025 12:10 AM EDT 03/23/2025 12:11 AM EDT us Musa Rosado MD LAB POINT OF CARE TE ST DOCKED DEVICE UNSOLICITED RESULTS Final Result Performing Organization Address City/[facility] Co de Phone Number [facility] [address] [place] [address] * (ABNORMAL) Blood gas, arterial (03/23/2025 12:03 AM EDT) Pathologist [facility] pH, Arterial 7.40 7.35 - 7.45 LAB HEMATOLOGY METHOD 03/23/2025 12:29 AM EDT [facility] pCO2, Arterial 38 32 - 45 mmHg LAB HEMATOLOGY METHOD 03/23/2025 12:29 AM EDT [facility] pO2, Arterial 158(H) 83 - 108 mmHg LAB HEMATOLOGY METHOD 03/23/2025 12:29 AM EDT [facility] SO2, Measured, Arterial 97 94 - 98 % LAB HEMATOLOGY METHOD 03/23/2025 12:29 AM EDT [facility] Base Excess, Arterial -0.9 -2.0 - 3.0 mmol/L LAB HEMATOLOGY METHOD 03/23/2025 12:29 AM EDT [facility] Bicarbonate, Calculated, Arterial 24 22 - 26 mmol/L LAB HEMATOLOGY METHOD 03/23/2025 12:29 AM EDT [facility] Hematocrit, Whole Blood 31.2(L) 40.0 - 51.0 % LAB HEMATOLOGY METHOD 03/23/2025 12:29 AM EDT [facility] Sodium, Whole Blood 141 136 - 145 mmol/L LAB HEMATOLOGY METHOD 03/23/2025 12:29 AM EDT [facility] Potassium, Whole Blood 4.2 3.6 - 4.9 mmol/L LAB HEMATOLOGY METHOD 03/23/2025 12:29 AM EDT [facility] Chloride, Whole Blood 110(H) 97 - 107 mmol/L LAB HEMATOLOGY METHOD 03/23/2025 12:29 AM EDT [facility] Glucose, Whole Blood 176(H) 74 - 99 mg/dL LAB HEMATOLOGY METHOD 03/23/2025 12:29 AM EDT [facility] Ionized Calcium, Whole Blood 4.4(L) 4.6 - 5.1 mg/dL LAB HEMATOLOGY METHOD 03/23/2025 12:29 AM EDT [facility] Lactate, Arterial, Whole Blood 2.5(H) 0.5 - 1.6 mmol/L LAB HEMATOLOGY METHOD 03/23/2025 12:29 AM EDT [facility] Blood Arterial blood specimen / Unknown Arterial Puncture / Unknown 03/23/2025 12:03 AM EDT 03/23/2025 12:24 AM EDT us Musa Rosado MD LAB BLOOD ORDERABLES Final R esult [facility] [address] [place] [address] * (ABNORMAL) POCT glucose meter (03/22/2025 10:59 PM EDT) POCT Glucose 181(H) 74 - 99 mg/dL 03/22/2025 11:00 PM EDT [facility] Comment:Accuracy of [...] for testing. Comment 03/22/2025 11:00 PM EDT [facility] Operating System Programmer ID Kelly Haynes 03/22/2025 11:00 PM EDT [facility] Device ID [id number] 03/22/2025 11:00 PM EDT [facility] Specimen Type POC Arterial 03/22/2025 11:00 PM EDT [facility] Blood Arterial blood specimen / Unknown 03/22/2025 10:59 PM EDT 03/22/2025 11:00 PM EDT Musa Rosado MD LAB POINT OF CARE TE ST DOCKED DEVICE UNSOLICITED RESULTS Final Result Performing Organization Address City/State/[facility] Co de Phone Number [facility] [address] [place] [address] * (ABNORMAL) POCT glucose meter (03/22/2025 10:40 PM EDT) [facility] POCT Glucose 184(H) 74 - 99 mg/dL 03/22/2025 10:41 PM EDT [facility] Comment:Accuracy of [...] Comment 03/22/2025 10:41 PM EDT [facility] Operating System Programmer ID Kelly Haynes 03/22/2025 10:41 PM EDT [facility] Device ID [id number] 03/22/2025 10:41 PM EDT [facility] Specimen Type POC Arterial 03/22/2025 10:41 PM EDT [facility] Blood Arterial blood specimen / Unknown 03/22/2025 10:40 PM EDT 03/22/2025 10:41 PM EDT Musa Rosado MD LAB POINT OF CARE TE ST DOCKED DEVICE UNSOLICITED RESULTS Final Result Performing Organization Address City/State/[facility] Co de Phone Number [facility] [address] [place] [address] * (ABNORMAL) POCT glucose meter (03/22/2025 8:21 PM EDT) POCT Glucose 207(H) 74 - 99 mg/dL 03/22/2025 8:22 PM EDT [facility] Comment:Accuracy of a [...] Comment 03/22/2025 8:22 PM EDT [facility] Operating System Programmer ID Jaret Haynesi 03/22/2025 8:22 PM EDT [facility] Device ID [id number] 03/22/2025 8:22 PM EDT [facility] Specimen Type POC Arterial 03/22/2025 8:22 PM EDT [facility] Blood Arterial blood specimen / Unknown 03/22/2025 8:21 PM EDT 03/22/2025 8:22 PM EDT Musa Rosado MD LAB POINT OF CARE TE ST DOCKED DEVICE UNSOLICITED RESULTS Final Result Performing Organization Address City/[facility]/ZIP Co de Phone Number [facility] [address] [place] [address] * (ABNORMAL) Blood gas, arterial (03/22/2025 8:17 PM EDT) pH, Arterial 7.37 7.35 - 7.45 LAB HEMATOLOGY METHOD 03/22/2025 8:29 PM EDT [facility] pCO2, Arterial 42 32 - 45 mmHg LAB HEMATOLOGY METHOD 03/22/2025 8:29 PM EDT [facility] pO2, Arterial 89 83 - 108 mmHg LAB HEMATOLOGY METHOD 03/22/2025 8:29 PM EDT [facility] SO2, Measured, Arterial 95 94 - 98 % LAB HEMATOLOGY METHOD 03/22/2025 8:29 PM EDT [facility] Base Excess, Arterial -0.9 -2.0 - 3.0 mmol/L LAB HEMATOLOGY METHOD 03/22/2025 8:29 PM EDT [facility] Bicarbonate, Calculated, Arterial 24 22 - 26 mmol/L LAB HEMATOLOGY METHOD 03/22/2025 8:29 PM EDT [facility] Hematocrit, Whole Blood 31.8(L) 40.0 - 51.0 % LAB HEMATOLOGY METHOD 03/22/2025 8:29 PM EDT [facility] Sodium, Whole Blood 141 136 - 145 mmol/L LAB HEMATOLOGY METHOD 03/22/2025 8:29 PM EDT [facility] Potassium, Whole Blood 4.1 3.6 - 4.9 mmol/L LAB HEMATOLOGY METHOD 03/22/2025 8:29 PM EDT [facility] Chloride, Whole Blood 110(H) 97 - 107 mmol/L LAB HEMATOLOGY METHOD 03/22/2025 8:29 PM EDT [facility] Glucose, Whole Blood 217(H) 74 - 99 mg/dL LAB HEMATOLOGY METHOD 03/22/2025 8:29 PM EDT [facility] Ionized Calcium, Whole Blood 4.4(L) 4.6 - 5.1 mg/dL LAB HEMATOLOGY METHOD 03/22/2025 8:29 PM EDT [facility] Lactate, Arterial, Whole Blood 2.1(H) 0.5 - 1.6 mmol/L LAB HEMATOLOGY METHOD 03/22/2025 8:29 PM EDT [facility] Blood Arterial blood specimen / Unknown Arterial Puncture / Unknown 03/22/2025 8:17 PM EDT 03/22/2025 8:27 PM EDT us Musa Rosado MD LAB BLOOD ORDERABLES Final R esult [facility] [address] [place] [address] * (ABNORMAL) Phosphorus (03/22/2025 8:14 PM EDT) Phosphorus, Plasma 1.6(L) 2.5 - 4.5 mg/dL 03/22/2025 8:55 PM EDT [facility] Blood Arterial blood specimen / Unknown Arterial Puncture / Unknown 03/22/2025 8:14 PM EDT 03/22/2025 8:28 PM EDT Musa Rosado MD LAB BLOOD ORDERABLES Final R esult Performing Organization Address City/[facility]/ZIP Co de Phone Number [facility] [address] [place] [address] * (ABNORMAL) Hematocrit (03/22/2025 8:14 PM EDT) HCT 30.1(L) 40.0 - 51.0 % LAB HEMATOLOGY METHOD 03/22/2025 8:35 PM EDT [facility] Blood Arterial blood specimen / Unknown Arterial Puncture / Unknown 03/22/2025 8:14 PM EDT 03/22/2025 8:28 PM EDT Musa Rosado MD LAB BLOOD ORDERABLES Final R esult Performing Organization Address City/[facility] Co de Phone Number [facility] [address] [place] [address] * (ABNORMAL) Hemoglobin (03/22/2025 8:14 PM EDT) HGB 10.4(L) 13.7 - 17.5 g/dL LAB HEMATOLOGY METHOD 03/22/2025 8:35 PM EDT [facility] Blood Arterial blood specimen / Unknown Arterial Puncture / Unknown 03/22/2025 8:14 PM EDT 03/22/2025 8:28 PM EDT Musa Rosado MD LAB BLOOD ORDERABLES Final R esult Performing Organization Address City/[facility]/ZIP Co de Phone Number [facility] [address] [place] [address] * Potassium, Plasma (03/22/2025 8:14 PM EDT) Potassium, Plasma 4.2 3.6 - 4.9 mmol/L 03/22/2025 8:55 PM EDT [facility] Blood Arterial blood specimen / Unknown Arterial Puncture / Unknown 03/22/2025 8:14 PM EDT 03/22/2025 8:28 PM EDT us Musa Rosado MD LAB BLOOD ORDERABLES Final R esult [facility] [address] [place] [address] * (ABNORMAL) Blood gas panel, arterial (03/22/2025 5:44 PM EDT) pH, Arterial 7.36 7.35 - 7.45 LAB HEMATOLOGY METHOD 03/22/2025 5:55 PM EDT [facility] pCO2, Arterial 41 32 - 45 mmHg LAB HEMATOLOGY METHOD 03/22/2025 5:55 PM EDT [facility] pO2, Arterial 107 83 - 108 mmHg LAB HEMATOLOGY METHOD 03/22/2025 5:55 PM EDT [facility] SO2, Measured, Arterial 98 94 - 98 % LAB HEMATOLOGY METHOD 03/22/2025 5:55 PM EDT [facility] Base Excess, Arterial -2.2(L) -2.0 - 3.0 mmol/L LAB HEMATOLOGY METHOD 03/22/2025 5:55 PM EDT [facility] Bicarbonate, Calculated, Arterial 23 22 - 26 mmol/L LAB HEMATOLOGY METHOD 03/22/2025 5:55 PM EDT [facility] Hematocrit, Whole Blood 33.7(L) 40.0 - 51.0 % LAB HEMATOLOGY METHOD 03/22/2025 5:55 PM EDT [facility] Sodium, Whole Blood 142 136 - 145 mmol/L LAB HEMATOLOGY METHOD 03/22/2025 5:55 PM EDT [facility] Potassium, Whole Blood 4.1 3.6 - 4.9 mmol/L LAB HEMATOLOGY METHOD 03/22/2025 5:55 PM EDT [facility] Chloride, Whole Blood 111(H) 97 - 107 mmol/L LAB HEMATOLOGY METHOD 03/22/2025 5:55 PM EDT [facility] Glucose, Whole Blood 206(H) 74 - 99 mg/dL LAB HEMATOLOGY METHOD 03/22/2025 5:55 PM EDT [facility] Ionized Calcium, Whole Blood 4.3(L) 4.6 - 5.1 mg/dL LAB HEMATOLOGY METHOD 03/22/2025 5:55 PM EDT [facility] Lactate, Arterial, Whole Blood 2.3(H) 0.5 - 1.6 mmol/L LAB HEMATOLOGY METHOD 03/22/2025 5:55 PM EDT [facility] Blood Arterial blood specimen / Unknown Arterial Puncture / Unknown 03/22/2025 5:44 PM EDT 03/22/2025 5:53 PM EDT us Musa Rosado MD LAB BLOOD ORDERABLES Final R esult [facility] [address] [place] [address] * XR Chest 1 View (03/22/2025 4:46 [...] above the freddie. Right internal jugular approach [place]-Brea catheter with tip over the proximal right pulmonary artery. Mediastinal drain and bilateral chest tubes in place. Low lung volumes. Pulmonary vascular congestion. No pneumothorax. Interval median sternotomy and CABG. Procedure Note Carmencita Aponte MD - 03/22/2025 CLINICAL INDICATION: Post-Op Cardiac Surgery TECHNIQUE: XR CHEST 1 VIEW COMPARISON: 03/21/2025 FINDINGS: Endotracheal tube tip 6.5 cm above the freddie. Right internal jugularapproach Dayton-Brea catheter with tip over the proximal right [...] IMG XR PROCEDURES Final Resu lt * MD CRITICAL CARE, E/M 30-74 MINUTES (03/22/2025 4:38 [...] ECG Atrial Rate 73 BPM MUSE ECG MD Interval 140 ms MUSE ECG QRSD Interval 86 ms MUSE ECG QT Interval 396 ms MUSE ECG QTC Interval 436 ms MUSE ECG P [place] 66 degrees MUSE ECG R [place] 26 degrees MUSE ECG T Wave [place] 52 degrees MUSE ECG Diagnosis Normal sinus rhythm MUSE ECG Diagnosis ST elevation, consider early repolarization , pericarditis, or injury MUSE ECG Diagnosis Need clinical information and correlation MUSE ECG Diagnosis MUSE ECG Diagnosis Confirmed by Jarett Steen ([id number]) on 03/22/2025 7:45:24 PM MUSE ECG 03/22/2025 4:10 PM EDT 03/22/2025 7:45 PM EDT us Musa Rosado MD ECG ORDERABLES Final Result MUSE ECG * (ABNORMAL) Blood gas, arterial - Post extubation (03/22/2025 3:52 PM EDT) pH, Arterial 7.35 7.35 - 7.45 LAB HEMATOLOGY METHOD 03/22/2025 4:33 PM EDT [facility] pCO2, Arterial 44 32 - 45 mmHg LAB HEMATOLOGY METHOD 03/22/2025 4:33 PM EDT [facility] pO2, Arterial 127(H) 83 - 108 mmHg LAB HEMATOLOGY METHOD 03/22/2025 4:33 PM EDT [facility] SO2, Measured, Arterial 99(H) 94 - 98 % LAB HEMATOLOGY METHOD 03/22/2025 4:33 PM EDT [facility] Base Excess, Arterial -1.9 -2.0 - 3.0 mmol/L LAB HEMATOLOGY METHOD 03/22/2025 4:33 PM EDT [facility] Bicarbonate, Calculated, Arterial 24 22 - 26 mmol/L LAB HEMATOLOGY METHOD 03/22/2025 4:33 PM EDT [facility] Hematocrit, Whole Blood 35.2(L) 40.0 - 51.0 % LAB HEMATOLOGY METHOD 03/22/2025 4:33 PM EDT [facility] Sodium, Whole Blood 142 136 - 145 mmol/L LAB HEMATOLOGY METHOD 03/22/2025 4:33 PM EDT [facility] Potassium, Whole Blood 3.8 3.6 - 4.9 mmol/L LAB HEMATOLOGY METHOD 03/22/2025 4:33 PM EDT [facility] Chloride, Whole Blood 112(H) 97 - 107 mmol/L LAB HEMATOLOGY METHOD 03/22/2025 4:33 PM EDT [facility] Glucose, Whole Blood 184(H) 74 - 99 mg/dL LAB HEMATOLOGY METHOD 03/22/2025 4:33 PM EDT [facility] Ionized Calcium, Whole Blood 4.4(L) 4.6 - 5.1 mg/dL LAB HEMATOLOGY METHOD 03/22/2025 4:33 PM EDT [facility] Lactate, Arterial, Whole Blood 2.6(H) 0.5 - 1.6 mmol/L LAB HEMATOLOGY METHOD 03/22/2025 4:33 PM EDT [facility] Blood Arterial blood specimen / Unknown Arterial Puncture / Unknown 03/22/2025 3:52 PM EDT 03/22/2025 4:31 PM EDT us Musa Rosado MD LAB BLOOD ORDERABLES Final R esult Performing Organization Address [facility] de Phone Number [facility] [address] [place] [address] * Denise auris Surveillance by PCR (03/22/2025 3:52 PM EDT) Denise auris PCR Result Not Detected Not Detected 03/23/2025 12:49 PM EDT [facility] Swab (Axilla and Groin) Non-blood Collection / Unknown 03/22/2025 3:52 PM EDT 03/22/2025 4:37 PM EDT Narrative [facility] - 03/23/2025 12:49 PM EDT This PCR assay was developed and its performance characteristics determined by [facility] as appropriate for clinical purposes. This assay has not been cleared or approved by the FDA, but is performed in a CLIA regulated laboratory that is qualified to perform high-complexity testing. us Musa Rosado MD LAB MICROBIOLOGY - GENERAL O RDERABLES Final Result Performing Organization Address [facility] Co de Phone Number [facility] [address] [place] [address] * Multi Drug Resistance Test (03/22/2025 3:52 PM EDT) Culture No growth at day 1 03/24/2025 7:31 AM EDT [facility] Swab (Nares and Lisa Rectal) Non-blood Collection / Unknown 03/22/2025 3:52 PM EDT 03/22/2025 4:37 PM EDT Narrative [facility] - 03/24/2025 7:31 AM EDT This test was developed and its performance characteristics determined by the [facility]. Although the media is FDA-approved, it is not FDA-approved for all specimen types submitted. The FDA has determined that such clearance or approval is not necessary. This test is used for surveillance purposes. It should not be regarded as investigational or for research. The [facility] is certified under the Clinical Laboratory Improvement Amendments of 1988 (CLIA-88) as qualified to perform high complexity clinical laboratory testing. us Musa Rosado MD LAB MICROBIOLOGY - GENERAL O RDERABLES Final Result Performing Organization Address [facility]/ZIP Co de Phone Number [facility] [address] [place] [address] * APTT (03/22/2025 3:52 PM EDT) aPTT 28 25 - 35 sec LAB COAGULATION METHOD 03/22/2025 5:08 PM EDT [facility] Blood Venous blood specimen / Unknown Venipuncture / Unknown 03/22/2025 3:52 PM EDT 03/22/2025 4:45 PM EDT us Musa Rosado MD LAB BLOOD ORDERABLES Final R esult Performing Organization Address City/[facility]/ZIP Co de Phone Number [facility] [address] [place] [address] * (ABNORMAL) Protime-INR (03/22/2025 3:52 PM EDT) Prothrombin Time 17.0(H) 12.0 - 14.3 sec LAB COAGULATION METHOD 03/22/2025 5:08 PM EDT [facility] INR 1.4(H) 0.9 - 1.1 LAB COAGULATION METHOD 03/22/2025 5:08 PM EDT [facility] Blood Venous blood specimen / Unknown Venipuncture / Unknown 03/22/2025 3:52 PM EDT 03/22/2025 4:45 PM EDT Narrative [facility] - 03/22/2025 5:08 PM EDT OPTIMAL INR RANGES FOR PATIENT ON ORAL ANTICOAGULANT THERAPY Prevention of venous thromboembolism INR 2.0 to 3.0 In patients with heart disease: Atrial fibrillation INR 2.0 to 3.0 Valvular heart disease INR 2.0 to 3.0 Tissue heart valves INR 2.0 to 3.0 Mechanical prosthetic valves INR 2.5 to 3.5 Prevention of recurrent MS INR 2.5 to 3.5 Musa Rosado MD LAB BLOOD ORDERABLES Final R esult Performing Organization Address City/[facility] [place] [address] * (ABNORMAL) Phosphorus (03/22/2025 3:52 PM EDT) Phosphorus, Plasma 1.0(LL) 2.5 - 4.5 mg/dL 03/22/2025 5:13 PM EDT [facility] Blood Venous blood specimen / Unknown Venipuncture / Unknown 03/22/2025 3:52 PM EDT 03/22/2025 4:45 PM EDT Musa Rosado MD LAB BLOOD ORDERABLES Final R esult Performing Organization Address City/[facility]/[place] [address] * (ABNORMAL) Magnesium (03/22/2025 3:52 PM EDT) Magnesium, Plasma 3.1(H) 1.9 - 2.4 mg/dL 03/22/2025 5:13 PM EDT [facility] Blood Venous blood specimen / Unknown Venipuncture / Unknown 03/22/2025 3:52 PM EDT 03/22/2025 4:45 PM EDT Musa Rosado MD LAB BLOOD ORDERABLES Final R esult [facility] [address] [place] [address] * (ABNORMAL) Basic metabolic panel (03/22/2025 3:52 PM EDT) Glucose, Plasma 188(H) 74 - 99 mg/dL 03/22/2025 5:13 PM EDT [facility] BUN, Plasma 17 7 - 21 mg/dL 03/22/2025 5:13 PM EDT [facility] Creatinine, Plasma 1.19 0.70 - 1.20 mg/dL 03/22/2025 5:13 PM EDT [facility] BUN/Creatinine Ratio 14 03/22/2025 5:13 PM EDT [facility] Sodium, Plasma 142 136 - 145 mmol/L 03/22/2025 5:13 PM EDT [facility] Potassium, Plasma 4.1 3.6 - 4.9 mmol/L 03/22/2025 5:13 PM EDT [facility] Chloride, Plasma 111(H) 97 - 107 mmol/L 03/22/2025 5:13 PM EDT [facility] CO2, Plasma 21(L) 22 - 29 mmol/L 03/22/2025 5:13 PM EDT [facility] Anion Gap 10 6 - 16 mmol/L 03/22/2025 5:13 PM EDT [facility] Total Calcium, Plasma 7.7(L) 8.9 - 10.2 mg/dL 03/22/2025 5:13 PM EDT [facility] eGFRcr 77.7 mL/min/1.7 3m*2 03/22/2025 5:13 PM EDT [facility] Comment:Reported eGFRcr in m L/min/1.73m2 is based the CKD-EPI 2020 equation that does not use a race coefficient. Blood Venous blood specimen / Unknown Venipuncture / Unknown 03/22/2025 3:52 PM EDT 03/22/2025 4:45 PM EDT Musa Rosado MD LAB BLOOD ORDERABLES Final R esult [facility] [address] [place] [address] * (ABNORMAL) CBC (03/22/2025 3:52 PM EDT) WBC Count 16.63(H) 3.70 - 10.30 10*3/uL LAB HEMATOLOGY METHOD 03/22/2025 4:48 PM EDT [facility] RBC Count 3.77(L) 4.60 - 6.10 10*6/uL LAB HEMATOLOGY METHOD 03/22/2025 4:48 PM EDT [facility] HGB 11.4(L) 13.7 - 17.5 g/dL LAB HEMATOLOGY METHOD 03/22/2025 4:48 PM EDT [facility] HCT 33.7(L) 40.0 - 51.0 % LAB HEMATOLOGY METHOD 03/22/2025 4:48 PM EDT [facility] Platelet Count 159 155 - 369 10*3/uL LAB HEMATOLOGY METHOD 03/22/2025 4:48 PM EDT [facility] MCV 89 79 - 98 fL LAB HEMATOLOGY METHOD 03/22/2025 4:48 PM EDT [facility] MCH 30.2 26.0 - 32.0 pg LAB HEMATOLOGY METHOD 03/22/2025 4:48 PM EDT [facility] MCHC 33.8 30.7 - 35.5 g/dL LAB HEMATOLOGY METHOD 03/22/2025 4:48 PM EDT [facility] RDW 13.4 11.5 - 14.5 % LAB HEMATOLOGY METHOD 03/22/2025 4:48 PM EDT [facility] MPV 11.0 8.8 - 12.5 fL LAB HEMATOLOGY METHOD 03/22/2025 4:48 PM EDT [facility] nRBC 0.0 <=0.0 per 100 WBCs LAB HEMATOLOGY METHOD 03/22/2025 4:48 PM EDT [facility] Blood Venous blood specimen / Unknown Venipuncture / Unknown 03/22/2025 3:52 PM EDT 03/22/2025 4:42 PM EDT us Musa Rosado MD LAB BLOOD ORDERABLES Final R esult [facility] [address] [place] [address] * (ABNORMAL) POCT arterial blood gas gem (03/22/2025 3:29 PM EDT) pH, Arterial 7.36 7.35 - 7.45 03/22/2025 3:41 PM EDT [facility] pCO2, Arterial 42 32 - 45 mm Hg 03/22/2025 3:41 PM EDT [facility] pO2, Arterial 150(H) 83 - 108 mm Hg 03/22/2025 3:41 PM EDT [facility] SO2, Arterial 98 94 - 98 % 03/22/2025 3:41 PM EDT [facility] Base Excess, Arterial -1.7 -2 - 3 mmol/L 03/22/2025 3:41 PM EDT [facility] HCO3, Arterial 23.7 22 - 26 mmol/L 03/22/2025 3:41 PM EDT [facility] Total Hemoglobin, Arterial, Whole Blood 11.2(L) 13.7 - 17.5 g/dL 03/22/2025 3:41 PM EDT [facility] Hematocrit, Arterial 34.0(L) 40 - 51.0 % 03/22/2025 3:41 PM EDT [facility] Sodium, Arterial 141 136 - 145 mmol/L 03/22/2025 3:41 PM EDT [facility] Potassium, Arterial 3.8 3.6 - 4.9 mmol/L 03/22/2025 3:41 PM EDT [facility] Chloride, Whole Blood 109(H) 97 - 107 mmol/L 03/22/2025 3:41 PM EDT [facility] Glucose, Arterial 192(H) 74 - 99 mg/dL 03/22/2025 3:41 PM EDT [facility] Ionized Calcium, Arterial 4.6 4.6 - 5.1 mg/dL 03/22/2025 3:41 PM EDT [facility] Lactate, Arterial 2.0(H) 0.5 - 1.6 mmol/L 03/22/2025 3:41 PM EDT [facility] Body Temperature 37.0 Celsius 03/22/2025 3:41 PM EDT [facility] pH, Temp Corrected, Arterial 7.36 7.35 - 7.45 03/22/2025 3:41 PM EDT [facility] pCO2, Temp Corrected, Arterial 42 32 - 45 mm Hg 03/22/2025 3:41 PM EDT [facility] pO2, Temp Corrected, Arterial 150(H) 83 - 108 mm Hg 03/22/2025 3:41 PM EDT [facility] Operating System Programmer ID Ludin Aguiar 03/22/2025 3:41 PM EDT [facility] Blood, Arterial Whole blood specimen / Unknown 03/22/2025 3:29 PM EDT 03/22/2025 3:41 PM EDT us Musa Rosado MD LAB POINT OF CARE TE ST DOCKED DEVICE UNSOLICITED RESULTS Final Result [facility] [address] [place] [address] * (ABNORMAL) POCT arterial blood gas gem (03/22/2025 2:44 PM EDT) pH, Arterial 7.33(L) 7.35 - 7.45 03/22/2025 2:51 PM EDT [facility] pCO2, Arterial 46(H) 32 - 45 mm Hg 03/22/2025 2:51 PM EDT [facility] pO2, Arterial 182(H) 83 - 108 mm Hg 03/22/2025 2:51 PM EDT [facility] SO2, Arterial 97 94 - 98 % 03/22/2025 2:51 PM EDT [facility] Base Excess, Arterial -1.8 -2 - 3 mmol/L 03/22/2025 2:51 PM EDT [facility] HCO3, Arterial 24.3 22 - 26 mmol/L 03/22/2025 2:51 PM EDT [facility] Total Hemoglobin, Arterial, Whole Blood 10.8(L) 13.7 - 17.5 g/dL 03/22/2025 2:51 PM EDT [facility] Hematocrit, Arterial 32.0(L) 40 - 51.0 % 03/22/2025 2:51 PM EDT [facility] Sodium, Arterial 141 136 - 145 mmol/L 03/22/2025 2:51 PM EDT [facility] Potassium, Arterial 3.8 3.6 - 4.9 mmol/L 03/22/2025 2:51 PM EDT [facility] Chloride, Whole Blood 111(H) 97 - 107 mmol/L 03/22/2025 2:51 PM EDT [facility] Glucose, Arterial 187(H) 74 - 99 mg/dL 03/22/2025 2:51 PM EDT [facility] Ionized Calcium, Arterial 4.7 4.6 - 5.1 mg/dL 03/22/2025 2:51 PM EDT [facility] Lactate, Arterial 1.8(H) 0.5 - 1.6 mmol/L 03/22/2025 2:51 PM EDT [facility] Body Temperature 37.0 Celsius 03/22/2025 2:51 PM EDT [facility] pH, Temp Corrected, Arterial 7.33(L) 7.35 - 7.45 03/22/2025 2:51 PM EDT [facility] pCO2, Temp Corrected, Arterial 46(H) 32 - 45 mm Hg 03/22/2025 2:51 PM EDT [facility] pO2, Temp Corrected, Arterial 182(H) 83 - 108 mm Hg 03/22/2025 2:51 PM EDT [facility] Operating System Programmer ID Ludin Aguiar 03/22/2025 2:51 PM EDT [facility] Blood, Arterial Whole blood specimen / Unknown 03/22/2025 2:44 PM EDT 03/22/2025 2:51 PM EDT Musa Rosado MD LAB POINT OF CARE TE ST DOCKED DEVICE UNSOLICITED RESULTS Final Result [facility] [address] [place] [address] * QPLUS (03/22/2025 2:24 PM EDT) [facility] Clot Time 125 104 - 166 Seconds 03/22/2025 2:38 PM EDT [facility] Clot Time Ratio 1.0 0.8 - 1.2 2:38 PM EDT [facility] Comment:The Clot Time Ratio (CTR) [...] - 29.8 hectoPascals 03/22/2025 2:38 PM EDT [facility] Fibrinogen Contribution to Clot Stiffness 1.8 1.0 - 3.7 hectoPascals 03/22/2025 2:38 PM EDT [facility] Heparinase Clot Time 126 103 - 153 Seconds 03/22/2025 2:38 PM EDT [facility] Operating System Programmer ID Ludin Aguiar 03/22/2025 2:38 PM EDT [facility] Device ID [id number] 03/22/2025 2:38 PM EDT [facility] Whole Blood 03/22/2025 2:24 PM EDT 03/22/2025 2:38 PM EDT us Musa Rosado MD LAB POINT OF CARE TE ST DOCKED DEVICE UNSOLICITED RESULTS Final Result [facility] [address] [place] [address] * (ABNORMAL) POCT arterial blood gas gem (03/22/2025 2:10 PM EDT) pH, Arterial 7.34(L) 7.35 - 7.45 03/22/2025 2:13 PM EDT [facility] pCO2, Arterial 43 32 - 45 mm Hg 03/22/2025 2:13 PM EDT [facility] pO2, Arterial 96 83 - 108 mm Hg 03/22/2025 2:13 PM EDT [facility] SO2, Arterial 97 94 - 98 % 03/22/2025 2:13 PM EDT [facility] Base Excess, Arterial -2.5(L) -2 - 3 mmol/L 03/22/2025 2:13 PM EDT [facility] HCO3, Arterial 23.2 22 - 26 mmol/L 03/22/2025 2:13 PM EDT [facility] Total Hemoglobin, Arterial, Whole Blood 9.4(L) 13.7 - 17.5 g/dL 03/22/2025 2:13 PM EDT [facility] Hematocrit, Arterial 28.0(L) 40 - 51.0 % 03/22/2025 2:13 PM EDT [facility] Sodium, Arterial 140 136 - 145 mmol/L 03/22/2025 2:13 PM EDT [facility] Potassium, Arterial 3.7 3.6 - 4.9 mmol/L 03/22/2025 2:13 PM EDT [facility] Chloride, Whole Blood 110(H) 97 - 107 mmol/L 03/22/2025 2:13 PM EDT [facility] Glucose, Arterial 212(H) 74 - 99 mg/dL 03/22/2025 2:13 PM EDT [facility] Ionized Calcium, Arterial 4.8 4.6 - 5.1 mg/dL 03/22/2025 2:13 PM EDT [facility] Lactate, Arterial 2.5(H) 0.5 - 1.6 mmol/L 03/22/2025 2:13 PM EDT [facility] Body Temperature 37.0 Celsius 03/22/2025 2:13 PM EDT [facility] pH, Temp Corrected, Arterial 7.34(L) 7.35 - 7.45 03/22/2025 2:13 PM EDT [facility] pCO2, Temp Corrected, Arterial 43 32 - 45 mm Hg 03/22/2025 2:13 PM EDT [facility] pO2, Temp Corrected, Arterial 96 83 - 108 mm Hg 03/22/2025 2:13 PM EDT [facility] Operating System Programmer ID Temo Mendoza 03/22/2025 2:13 PM EDT [facility] Blood, Arterial Whole blood specimen / Unknown 03/22/2025 2:10 PM EDT 03/22/2025 2:13 PM EDT us Musa Rosado MD LAB POINT OF CARE TE ST DOCKED DEVICE UNSOLICITED RESULTS Final Result [facility] [address] [place] [id number] * POCT ACT (03/22/2025 2:04 PM EDT) [facility] ACT+ (HIGH RANGE) 115 68 - 600 Seconds 03/22/2025 2:10 PM EDT [facility] Operating System Programmer ID Selene Cardona 03/22/2025 2:10 PM EDT [facility] ACT Device ID [id number] 03/22/2025 2:10 PM EDT [facility] Comment 03/22/2025 2:10 PM EDT [facility] Comment: ACT performed by staff at [...] UNSOLICITED RESULTS Final Result [facility] [address] [facility] [address] [place] [address] * (ABNORMAL) POCT arterial blood gas gem (03/22/2025 1:29 PM EDT) pH, Arterial 7.33(L) 7.35 - 7.45 03/22/2025 1:31 PM EDT [facility] pCO2, Arterial 42 32 - 45 mm Hg 03/22/2025 1:31 PM EDT [facility] pO2, Arterial 371(H) 83 - 108 mm Hg 03/22/2025 1:31 PM EDT [facility] SO2, Arterial 98 94 - 98 % 03/22/2025 1:31 PM EDT [facility] Base Excess, Arterial -3.6(L) -2 - 3 mmol/L 03/22/2025 1:31 PM EDT [facility] HCO3, Arterial 22.1 22 - 26 mmol/L 03/22/2025 1:31 PM EDT [facility] Total Hemoglobin, Arterial, Whole Blood 9.0(L) 13.7 - 17.5 g/dL 03/22/2025 1:31 PM EDT [facility] Hematocrit, Arterial 27.0(L) 40 - 51.0 % 03/22/2025 1:31 PM EDT [facility] Sodium, Arterial 138 136 - 145 mmol/L 03/22/2025 1:31 PM EDT [facility] Potassium, Arterial 4.2 3.6 - 4.9 mmol/L 03/22/2025 1:31 PM EDT [facility] Chloride, Whole Blood 109(H) 97 - 107 mmol/L 03/22/2025 1:31 PM EDT [facility] Glucose, Arterial 272(H) 74 - 99 mg/dL 03/22/2025 1:31 PM EDT [facility] Ionized Calcium, Arterial 4.9 4.6 - 5.1 mg/dL 03/22/2025 1:31 PM EDT [facility] Lactate, Arterial 2.6(H) 0.5 - 1.6 mmol/L 03/22/2025 1:31 PM EDT [facility] Body Temperature 37.0 Celsius 03/22/2025 1:31 PM EDT [facility] pH, Temp Corrected, Arterial 7.33(L) 7.35 - 7.45 03/22/2025 1:31 PM EDT [facility] pCO2, Temp Corrected, Arterial 42 32 - 45 mm Hg 03/22/2025 1:31 PM EDT [facility] pO2, Temp Corrected, Arterial 371(H) 83 - 108 mm Hg 03/22/2025 1:31 PM EDT [facility] Operating System Programmer ID Shelley Bridges 03/22/2025 1:31 PM EDT [facility] Blood, Arterial Whole blood specimen / Unknown 03/22/2025 1:29 PM EDT 03/22/2025 1:31 PM EDT us Musa Rosado MD LAB POINT OF CARE TE ST DOCKED DEVICE UNSOLICITED RESULTS Final Result [facility] [address] [place] [address] * POCT ACT (03/22/2025 1:25 PM EDT) [facility] ACT+ (HIGH RANGE) 489 68 - 600 Seconds 03/22/2025 1:34 PM EDT [facility] Operating System Programmer ID Shelley Bridges 03/22/2025 1:34 PM EDT [facility] ACT Device ID [id number] 03/22/2025 1:34 PM EDT [facility] Comment 03/22/2025 1:34 PM EDT [facility] Comment: ACT performed by staff at [...] UNSOLICITED RESULTS Final Result Performing Organization Address City/State/[facility] Co de Phone Number [facility] [address] [facility] [address] [place] [address] * (ABNORMAL) POCT arterial blood gas gem (03/22/2025 12:55 PM EDT) pH, Arterial 7.36 7.35 - 7.45 03/22/2025 12:56 PM EDT [facility] pCO2, Arterial 40 32 - 45 mm Hg 03/22/2025 12:56 PM EDT [facility] pO2, Arterial 179(H) 83 - 108 mm Hg 03/22/2025 12:56 PM EDT [facility] SO2, Arterial 97 94 - 98 % 03/22/2025 12:56 PM EDT [facility] Base Excess, Arterial -2.6(L) -2 - 3 mmol/L 03/22/2025 12:56 PM EDT [facility] HCO3, Arterial 22.6 22 - 26 mmol/L 03/22/2025 12:56 PM EDT [facility] Total Hemoglobin, Arterial, Whole Blood 9.3(L) 13.7 - 17.5 g/dL 03/22/2025 12:56 PM EDT [facility] Hematocrit, Arterial 28.0(L) 40 - 51.0 % 03/22/2025 12:56 PM EDT [facility] Sodium, Arterial 139 136 - 145 mmol/L 03/22/2025 12:56 PM EDT [facility] Potassium, Arterial 4.0 3.6 - 4.9 mmol/L 03/22/2025 12:56 PM EDT [facility] Chloride, Whole Blood 108(H) 97 - 107 mmol/L 03/22/2025 12:56 PM EDT [facility] Glucose, Arterial 245(H) 74 - 99 mg/dL 03/22/2025 12:56 PM EDT [facility] Ionized Calcium, Arterial 4.8 4.6 - 5.1 mg/dL 03/22/2025 12:56 PM EDT [facility] Lactate, Arterial 2.4(H) 0.5 - 1.6 mmol/L 03/22/2025 12:56 PM EDT [facility] Body Temperature 37.0 Celsius 03/22/2025 12:56 PM EDT [facility] pH, Temp Corrected, Arterial 7.36 7.35 - 7.45 03/22/2025 12:56 PM EDT [facility] pCO2, Temp Corrected, Arterial 40 32 - 45 mm Hg 03/22/2025 12:56 PM EDT [facility] pO2, Temp Corrected, Arterial 179(H) 83 - 108 mm Hg 03/22/2025 12:56 PM EDT [facility] Operating System Programmer ID Selene Cardona 03/22/2025 12:56 PM EDT [facility] Blood, Arterial Whole blood specimen / Unknown 03/22/2025 12:55 PM EDT 03/22/2025 12:56 PM EDT us Musa Rosado MD LAB POINT OF CARE TE ST DOCKED DEVICE UNSOLICITED RESULTS Final Result [facility] [address] [place] [address] * POCT ACT (03/22/2025 12:51 PM EDT) ACT+ (HIGH RANGE) 593 68 - 600 Seconds 03/22/2025 1:02 PM EDT [facility] Operating System Programmer ID Selene Cardona 03/22/2025 1:02 PM EDT [facility] ACT Device ID [id number] 03/22/2025 1:02 PM EDT [facility] Comment 03/22/2025 1:02 PM EDT [facility] Comment: ACT performed by staff at [...] ST DOCKED DEVICE UNSOLICITED RESULTS Final Result [facility] [address] [facility] [address] [place] [address] * (ABNORMAL) POCT arterial blood gas gem (03/22/2025 12:25 PM EDT) pH, Arterial 7.44 7.35 - 7.45 03/22/2025 12:26 PM EDT [facility] pCO2, Arterial 34 32 - 45 mm Hg 03/22/2025 12:26 PM EDT [facility] pO2, Arterial 296(H) 83 - 108 mm Hg 03/22/2025 12:26 PM EDT [facility] SO2, Arterial 97 94 - 98 % 03/22/2025 12:26 PM EDT [facility] Base Excess, Arterial -0.7 -2 - 3 mmol/L 03/22/2025 12:26 PM EDT [facility] HCO3, Arterial 23.1 22 - 26 mmol/L 03/22/2025 12:26 PM EDT [facility] Total Hemoglobin, Arterial, Whole Blood 9.7(L) 13.7 - 17.5 g/dL 03/22/2025 12:26 PM EDT [facility] Hematocrit, Arterial 29.0(L) 40 - 51.0 % 03/22/2025 12:26 PM EDT [facility] Sodium, Arterial 138 136 - 145 mmol/L 03/22/2025 12:26 PM EDT [facility] Potassium, Arterial 3.4(L) 3.6 - 4.9 mmol/L 03/22/2025 12:26 PM EDT [facility] Chloride, Whole Blood 108(H) 97 - 107 mmol/L 03/22/2025 12:26 PM EDT [facility] Glucose, Arterial 266(H) 74 - 99 mg/dL 03/22/2025 12:26 PM EDT [facility] Ionized Calcium, Arterial 4.7 4.6 - 5.1 mg/dL 03/22/2025 12:26 PM EDT [facility] Lactate, Arterial 2.3(H) 0.5 - 1.6 mmol/L 03/22/2025 12:26 PM EDT [facility] Body Temperature 37.0 Celsius 03/22/2025 12:26 PM EDT [facility] pH, Temp Corrected, Arterial 7.44 7.35 - 7.45 03/22/2025 12:26 PM EDT [facility] pCO2, Temp Corrected, Arterial 34 32 - 45 mm Hg 03/22/2025 12:26 PM EDT [facility] pO2, Temp Corrected, Arterial 296(H) 83 - 108 mm Hg 03/22/2025 12:26 PM EDT [facility] Operating System Programmer ID Selene Cardona 03/22/2025 12:26 PM EDT [facility] Blood, Arterial Whole blood specimen / Unknown 03/22/2025 12:25 PM EDT 03/22/2025 12:26 PM EDT Musa Rosado MD LAB POINT OF CARE TE ST DOCKED DEVICE UNSOLICITED RESULTS Final Result [facility] [address] [place] [address] * POCT ACT (03/22/2025 12:21 PM EDT) ACT+ (HIGH RANGE) 536 68 - 600 Seconds 03/22/2025 12:30 PM EDT [facility] Operating System Programmer ID Selene Cardona 03/22/2025 12:30 PM EDT [facility] ACT Device ID [id number] 03/22/2025 12:30 PM EDT [facility] Comment 03/22/2025 12:30 PM EDT [facility] Comment: ACT performed by staff at [...] 12:21 PM EDT 03/22/2025 12:30 PM EDT us Musa Rosado MD LAB POINT OF CARE TE ST DOCKED DEVICE UNSOLICITED RESULTS Final Result [facility] [address] [facility] [address] [place] [address] * (ABNORMAL) POCT arterial blood gas gem (03/22/2025 11:54 AM EDT) pH, Arterial 7.31(L) 7.35 - 7.45 03/22/2025 11:56 AM EDT [facility] pCO2, Arterial 43 32 - 45 mm Hg 03/22/2025 11:56 AM EDT [facility] pO2, Arterial 234(H) 83 - 108 mm Hg 03/22/2025 11:56 AM EDT [facility] SO2, Arterial 97 94 - 98 % 03/22/2025 11:56 AM EDT [facility] Base Excess, Arterial -4.4(L) -2 - 3 mmol/L 03/22/2025 11:56 AM EDT [facility] HCO3, Arterial 21.7(L) 22 - 26 mmol/L 03/22/2025 11:56 AM EDT [facility] Total Hemoglobin, Arterial, Whole Blood 9.8(L) 13.7 - 17.5 g/dL 03/22/2025 11:56 AM EDT [facility] Hematocrit, Arterial 29.0(L) 40 - 51.0 % 03/22/2025 11:56 AM EDT [facility] Sodium, Arterial 139 136 - 145 mmol/L 03/22/2025 11:56 AM EDT [facility] Potassium, Arterial 2.9(L) 3.6 - 4.9 mmol/L 03/22/2025 11:56 AM EDT [facility] Chloride, Whole Blood 107 97 - 107 mmol/L 03/22/2025 11:56 AM EDT [facility] Glucose, Arterial 243(H) 74 - 99 mg/dL 03/22/2025 11:56 AM EDT [facility] Ionized Calcium, Arterial 4.9 4.6 - 5.1 mg/dL 03/22/2025 11:56 AM EDT [facility] Lactate, Arterial 2.2(H) 0.5 - 1.6 mmol/L 03/22/2025 11:56 AM EDT [facility] Body Temperature 37.0 Celsius 03/22/2025 11:56 AM EDT [facility] pH, Temp Corrected, Arterial 7.31(L) 7.35 - 7.45 03/22/2025 11:56 AM EDT [facility] pCO2, Temp Corrected, Arterial 43 32 - 45 mm Hg 03/22/2025 11:56 AM EDT [facility] pO2, Temp Corrected, Arterial 234(H) 83 - 108 mm Hg 03/22/2025 11:56 AM EDT [facility] Operating System Programmer ID Brendan Selene 03/22/2025 11:56 AM EDT [facility] Blood, Arterial Whole blood specimen / Unknown 03/22/2025 11:54 AM EDT 03/22/2025 11:56 AM EDT Musa Rosado MD LAB POINT OF CARE TE ST DOCKED DEVICE UNSOLICITED RESULTS Final Result [facility] [address] [place] [address] * POCT ACT (03/22/2025 11:49 AM EDT) ACT+ (HIGH RANGE) 591 68 - 600 Seconds 03/22/2025 12:30 PM EDT [facility] Operating System Programmer ID [email or web address] 03/22/2025 12:30 PM EDT [facility] ACT Device ID [id number] 03/22/2025 12:30 PM EDT [facility] Comment 03/22/2025 12:30 PM EDT [facility] Comment: ACT performed by staff at [...] 11:49 AM EDT 03/22/2025 12:30 PM EDT us Musa Rosado MD LAB POINT OF CARE TE ST DOCKED DEVICE UNSOLICITED RESULTS Final Result [facility] [address] [facility] [address] [place] [address] * (ABNORMAL) POCT arterial blood gas gem (03/22/2025 11:26 AM EDT) pH, Arterial 7.37 7.35 - 7.45 03/22/2025 11:28 AM EDT [facility] pCO2, Arterial 42 32 - 45 mm Hg 03/22/2025 11:28 AM EDT [facility] pO2, Arterial 251(H) 83 - 108 mm Hg 03/22/2025 11:28 AM EDT [facility] SO2, Arterial 98 94 - 98 % 03/22/2025 11:28 AM EDT [facility] Base Excess, Arterial -1.0 -2 - 3 mmol/L 03/22/2025 11:28 AM EDT [facility] HCO3, Arterial 24.3 22 - 26 mmol/L 03/22/2025 11:28 AM EDT [facility] Total Hemoglobin, Arterial, Whole Blood 9.2(L) 13.7 - 17.5 g/dL 03/22/2025 11:28 AM EDT [facility] Hematocrit, Arterial 28.0(L) 40 - 51.0 % 03/22/2025 11:28 AM EDT [facility] Sodium, Arterial 136 136 - 145 mmol/L 03/22/2025 11:28 AM EDT [facility] Potassium, Arterial 3.6 3.6 - 4.9 mmol/L 03/22/2025 11:28 AM EDT [facility] Chloride, Whole Blood 106 97 - 107 mmol/L 03/22/2025 11:28 AM EDT [facility] Glucose, Arterial 248(H) 74 - 99 mg/dL 03/22/2025 11:28 AM EDT [facility] Ionized Calcium, Arterial 4.7 4.6 - 5.1 mg/dL 03/22/2025 11:28 AM EDT [facility] Lactate, Arterial 1.5 0.5 - 1.6 mmol/L 03/22/2025 11:28 AM EDT [facility] Body Temperature 37.0 Celsius 03/22/2025 11:28 AM EDT [facility] pH, Temp Corrected, Arterial 7.37 7.35 - 7.45 03/22/2025 11:28 AM EDT [facility] pCO2, Temp Corrected, Arterial 42 32 - 45 mm Hg 03/22/2025 11:28 AM EDT [facility] pO2, Temp Corrected, Arterial 251(H) 83 - 108 mm Hg 03/22/2025 11:28 AM EDT [facility] Operating System Programmer ID Selene Cardona 03/22/2025 11:28 AM EDT [facility] Blood, Arterial Whole blood specimen / Unknown 03/22/2025 11:26 AM EDT 03/22/2025 11:28 AM EDT Musa Rosado MD LAB POINT OF CARE TE ST DOCKED DEVICE UNSOLICITED RESULTS Final Result Performing Organization Address City/State/[facility] Co de Phone Number [facility] [address] [place] [address] * POCT ACT (03/22/2025 11:22 AM EDT) [facility] Signature ACT+ (HIGH RANGE) 534 68 - 600 Seconds 03/22/2025 11:31 AM EDT [facility] Operating System Programmer ID Selene Cardona 03/22/2025 11:31 AM EDT [facility] ACT Device ID [id number] 03/22/2025 11:31 AM EDT [facility] Comment 03/22/2025 11:31 AM EDT [facility] Comment: ACT performed by staff at [...] ST DOCKED DEVICE UNSOLICITED RESULTS Final Result [facility] [address] [facility] [address] [place] [address] * (ABNORMAL) POCT arterial blood gas gem (03/22/2025 10:55 AM EDT) pH, Arterial 7.40 7.35 - 7.45 03/22/2025 10:56 AM EDT [facility] pCO2, Arterial 41 32 - 45 mm Hg 03/22/2025 10:56 AM EDT [facility] pO2, Arterial 183(H) 83 - 108 mm Hg 03/22/2025 10:56 AM EDT [facility] SO2, Arterial 97 94 - 98 % 03/22/2025 10:56 AM EDT [facility] Base Excess, Arterial 0.5 -2 - 3 mmol/L 03/22/2025 10:56 AM EDT [facility] HCO3, Arterial 25.4 22 - 26 mmol/L 03/22/2025 10:56 AM EDT [facility] Total Hemoglobin, Arterial, Whole Blood 12.6(L) 13.7 - 17.5 g/dL 03/22/2025 10:56 AM EDT [facility] Hematocrit, Arterial 38.0(L) 40 - 51.0 % 03/22/2025 10:56 AM EDT [facility] Sodium, Arterial 139 136 - 145 mmol/L 03/22/2025 10:56 AM EDT [facility] Potassium, Arterial 4.1 3.6 - 4.9 mmol/L 03/22/2025 10:56 AM EDT [facility] Chloride, Whole Blood 107 97 - 107 mmol/L 03/22/2025 10:56 AM EDT [facility] Glucose, Arterial 157(H) 74 - 99 mg/dL 03/22/2025 10:56 AM EDT [facility] Ionized Calcium, Arterial 4.7 4.6 - 5.1 mg/dL 03/22/2025 10:56 AM EDT [facility] Lactate, Arterial 1.1 0.5 - 1.6 mmol/L 03/22/2025 10:56 AM EDT [facility] Body Temperature 37.0 Celsius 03/22/2025 10:56 AM EDT [facility] pH, Temp Corrected, Arterial 7.40 7.35 - 7.45 03/22/2025 10:56 AM EDT [facility] pCO2, Temp Corrected, Arterial 41 32 - 45 mm Hg 03/22/2025 10:56 AM EDT [facility] pO2, Temp Corrected, Arterial 183(H) 83 - 108 mm Hg 03/22/2025 10:56 AM EDT [facility] Operating System Programmer ID Selene Cardona 03/22/2025 10:56 AM EDT [facility] Blood, Arterial Whole blood specimen / Unknown 03/22/2025 10:55 AM EDT 03/22/2025 10:56 AM EDT us Musa Rosado MD LAB POINT OF CARE TE ST DOCKED DEVICE UNSOLICITED RESULTS Final Result Performing Organization Address City/State/[facility] Co de Phone Number HEALTHCARE [facility] [address] [place] [address] * POCT ACT (03/22/2025 10:52 AM EDT) ACT+ (HIGH RANGE) 599 68 - 600 Seconds 03/22/2025 11:02 AM EDT [facility] Operating System Programmer ID Selene Cardona 03/22/2025 11:02 AM EDT [facility] ACT Device ID [id number] 03/22/2025 11:02 AM EDT [facility] Comment 03/22/2025 11:02 AM EDT [facility] Comment: ACT performed by staff at [...] ST DOCKED DEVICE UNSOLICITED RESULTS Final Result [facility] [address] LAB [address] [place] [address] * (ABNORMAL) POCT arterial blood gas gem (03/22/2025 10:04 AM EDT) pH, Arterial 7.36 7.35 - 7.45 03/22/2025 10:06 AM EDT [facility] pCO2, Arterial 46(H) 32 - 45 mm Hg 03/22/2025 10:06 AM EDT [facility] pO2, Arterial 178(H) 83 - 108 mm Hg 03/22/2025 10:06 AM EDT [facility] SO2, Arterial 97 94 - 98 % 03/22/2025 10:06 AM EDT [facility] Base Excess, Arterial 0.1 -2 - 3 mmol/L 03/22/2025 10:06 AM EDT [facility] HCO3, Arterial 26.0 22 - 26 mmol/L 03/22/2025 10:06 AM EDT [facility] Total Hemoglobin, Arterial, Whole Blood 13.3(L) 13.7 - 17.5 g/dL 03/22/2025 10:06 AM EDT [facility] Hematocrit, Arterial 40.0 40 - 51.0 % 03/22/2025 10:06 AM EDT [facility] Sodium, Arterial 139 136 - 145 mmol/L 03/22/2025 10:06 AM EDT [facility] Potassium, Arterial 4.1 3.6 - 4.9 mmol/L 03/22/2025 10:06 AM EDT [facility] Chloride, Whole Blood 105 97 - 107 mmol/L 03/22/2025 10:06 AM EDT [facility] Glucose, Arterial 174(H) 74 - 99 mg/dL 03/22/2025 10:06 AM EDT [facility] Ionized Calcium, Arterial 4.9 4.6 - 5.1 mg/dL 03/22/2025 10:06 AM EDT [facility] Lactate, Arterial 1.2 0.5 - 1.6 mmol/L 03/22/2025 10:06 AM EDT [facility] Body Temperature 37.0 Celsius 03/22/2025 10:06 AM EDT [facility] pH, Temp Corrected, Arterial 7.36 7.35 - 7.45 03/22/2025 10:06 AM EDT [facility] pCO2, Temp Corrected, Arterial 46(H) 32 - 45 mm Hg 03/22/2025 10:06 AM EDT [facility] pO2, Temp Corrected, Arterial 178(H) 83 - 108 mm Hg 03/22/2025 10:06 AM EDT [facility] Operating System Programmer ID Temo Mendoza 03/22/2025 10:06 AM EDT [facility] Blood, Arterial Whole blood specimen / Unknown 03/22/2025 10:04 AM EDT 03/22/2025 10:06 AM EDT Musa Rosado MD LAB POINT OF CARE TE ST DOCKED DEVICE UNSOLICITED RESULTS Final Result [facility] [address] [place] [address] * (ABNORMAL) POCT arterial blood gas gem (03/22/2025 8:01 AM EDT) pH, Arterial 7.44 7.35 - 7.45 03/22/2025 9:00 AM EDT [facility] pCO2, Arterial 39 32 - 45 mm Hg 03/22/2025 9:00 AM EDT [facility] pO2, Arterial 78(L) 83 - 108 mm Hg 03/22/2025 9:00 AM EDT [facility] SO2, Arterial 96 94 - 98 % 03/22/2025 9:00 AM EDT [facility] Base Excess, Arterial 2.3 -2 - 3 mmol/L 03/22/2025 9:00 AM EDT [facility] HCO3, Arterial 26.5(H) 22 - 26 mmol/L 03/22/2025 9:00 AM EDT [facility] Total Hemoglobin, Arterial, Whole Blood 13.8 13.7 - 17.5 g/dL 03/22/2025 9:00 AM EDT [facility] Hematocrit, Arterial 41.0 40 - 51.0 % 03/22/2025 9:00 AM EDT [facility] Sodium, Arterial 139 136 - 145 mmol/L 03/22/2025 9:00 AM EDT [facility] Potassium, Arterial 3.8 3.6 - 4.9 mmol/L 03/22/2025 9:00 AM EDT [facility] Chloride, Whole Blood 104 97 - 107 mmol/L 03/22/2025 9:00 AM EDT [facility] Glucose, Arterial 207(H) 74 - 99 mg/dL 03/22/2025 9:00 AM EDT [facility] Ionized Calcium, Arterial 5.0 4.6 - 5.1 mg/dL 03/22/2025 9:00 AM EDT [facility] Lactate, Arterial 1.1 0.5 - 1.6 mmol/L 03/22/2025 9:00 AM EDT [facility] Body Temperature 37.0 Celsius 03/22/2025 9:00 AM EDT [facility] pH, Temp Corrected, Arterial 7.44 7.35 - 7.45 03/22/2025 9:00 AM EDT [facility] pCO2, Temp Corrected, Arterial 39 32 - 45 mm Hg 03/22/2025 9:00 AM EDT [facility] pO2, Temp Corrected, Arterial 78(L) 83 - 108 mm Hg 03/22/2025 9:00 AM EDT [facility] Operating System Programmer ID Ludin Aguiar 03/22/2025 9:00 AM EDT [facility] Blood, Arterial Whole blood specimen / Unknown 03/22/2025 8:01 AM EDT 03/22/2025 9:00 AM EDT us Musa Rosado MD LAB POINT OF CARE TE ST DOCKED DEVICE UNSOLICITED RESULTS Final Result [facility] [address] [place] [id number] * POCT ACT (03/22/2025 7:57 AM EDT) ACT+ (HIGH RANGE) 107 68 - 600 Seconds 03/22/2025 8:02 AM EDT [facility] Operating System Programmer ID Jean Acevedo 03/22/2025 8:02 AM EDT [facility] ACT Device ID [id number] 03/22/2025 8:02 AM EDT [facility] Comment 03/22/2025 8:02 AM EDT [facility] Comment: ACT performed by staff at [...] UNSOLICITED RESULTS Final Result Performing Organization Address [facility] Co de Phone Number [facility] [address] LAB [address] [place] [address] * APTT (03/22/2025 6:32 AM EDT) aPTT 28 25 - 35 sec LAB COAGULATION METHOD 03/22/2025 6:58 AM EDT [facility] Blood Venous blood specimen / Unknown Venipuncture / Unknown 03/22/2025 6:32 AM EDT 03/22/2025 6:38 AM EDT us Zulay Syed APRN LAB BLOOD ORDERABLES Final R esult [facility] [address] [place] [address] * Protime-INR (03/22/2025 6:32 AM EDT) Prothrombin Time 13.6 12.0 - 14.3 sec LAB COAGULATION METHOD 03/22/2025 6:58 AM EDT [facility] INR 1.0 0.9 - 1.1 LAB COAGULATION METHOD 03/22/2025 6:58 AM EDT [facility] Blood Venous blood specimen / Unknown Venipuncture / Unknown 03/22/2025 6:32 AM EDT 03/22/2025 6:38 AM EDT Narrative [facility] - 03/22/2025 6:58 AM EDT OPTIMAL INR RANGES FOR PATIENT ON ORAL ANTICOAGULANT THERAPY Prevention of venous thromboembolism INR 2.0 to 3.0 In patients with heart disease: Atrial fibrillation INR 2.0 to 3.0 Valvular heart disease INR 2.0 to 3.0 Tissue heart valves INR 2.0 to 3.0 Mechanical prosthetic valves INR 2.5 to 3.5 Prevention of recurrent MS INR 2.5 to 3.5 us Zulay Syed APRN LAB BLOOD ORDERABLES Final R esult [facility] [address] [place] [address] * (ABNORMAL) Comprehensive metabolic panel (03/22/2025 6:32 AM EDT) Glucose, Plasma 180(H) 74 - 99 mg/dL 03/22/2025 7:10 AM EDT [facility] BUN, Plasma 20 7 - 21 mg/dL 03/22/2025 7:10 AM EDT [facility] Creatinine, Plasma 1.29(H) 0.70 - 1.20 mg/dL 03/22/2025 7:10 AM EDT [facility] BUN/Creatinine Ratio 16 03/22/2025 7:10 AM EDT [facility] Sodium, Plasma 139 136 - 145 mmol/L 03/22/2025 7:10 AM EDT [facility] Potassium, Plasma 3.9 3.6 - 4.9 mmol/L 03/22/2025 7:10 AM EDT [facility] Chloride, Plasma 104 97 - 107 mmol/L 03/22/2025 7:10 AM EDT [facility] CO2, Plasma 24 22 - 29 mmol/L 03/22/2025 7:10 AM EDT [facility] Anion Gap 11 6 - 16 mmol/L 03/22/2025 7:10 AM EDT [facility] Total Calcium, Plasma 9.5 8.9 - 10.2 mg/dL 03/22/2025 7:10 AM EDT [facility] Total Protein 7.2 6.3 - 7.9 g/dL 03/22/2025 7:10 AM EDT [facility] Albumin, Plasma 4.4 3.5 - 5.2 g/dL 03/22/2025 7:10 AM EDT [facility] AST, Plasma 24 10 - 50 U/L 03/22/2025 7:10 AM EDT [facility] Comment:Hemolyzed, result ma y be falsely increased. ALT, Plasma 28 10 - 50 U/L 03/22/2025 7:10 AM EDT [facility] Alkaline Phosphatase, Plasma 41 40 - 115 U/L 03/22/2025 7:10 AM EDT [facility] Total Bilirubin, Plasma 0.4 0.2 - 1.1 mg/dL 03/22/2025 7:10 AM EDT [facility] eGFRcr 70.6 mL/min/1.7 3m*2 03/22/2025 7:10 AM EDT [facility] Comment:Reported eGFRcr in m L/min/1.73m2 is based the CKD-EPI 2020 equation that does not use a race coefficient. Blood Venous blood specimen / Unknown Venipuncture / Unknown 03/22/2025 6:32 AM EDT 03/22/2025 6:38 AM EDT us Zulay Syed APRN LAB BLOOD ORDERABLES Final R esult [facility] [address] [place] [address] * CBC (03/22/2025 6:32 AM EDT) WBC Count 5.45 3.70 - 10.30 10*3/uL LAB HEMATOLOGY METHOD 03/22/2025 7:04 AM EDT [facility] RBC Count 4.78 4.60 - 6.10 10*6/uL LAB HEMATOLOGY METHOD 03/22/2025 7:04 AM EDT [facility] HGB 14.7 13.7 - 17.5 g/dL LAB HEMATOLOGY METHOD 03/22/2025 7:04 AM EDT [facility] HCT 42.5 40.0 - 51.0 % LAB HEMATOLOGY METHOD 03/22/2025 7:04 AM EDT [facility] Platelet Count 183 155 - 369 10*3/uL LAB HEMATOLOGY METHOD 03/22/2025 7:04 AM EDT [facility] MCV 89 79 - 98 fL LAB HEMATOLOGY METHOD 03/22/2025 7:04 AM EDT [facility] MCH 30.8 26.0 - 32.0 pg LAB HEMATOLOGY METHOD 03/22/2025 7:04 AM EDT [facility] MCHC 34.6 30.7 - 35.5 g/dL LAB HEMATOLOGY METHOD 03/22/2025 7:04 AM EDT [facility] RDW 13.3 11.5 - 14.5 % LAB HEMATOLOGY METHOD 03/22/2025 7:04 AM EDT [facility] MPV 11.2 8.8 - 12.5 fL LAB HEMATOLOGY METHOD 03/22/2025 7:04 AM EDT [facility] nRBC 0.0 <=0.0 per 100 WBCs LAB HEMATOLOGY METHOD 03/22/2025 7:04 AM EDT [facility] Blood Venous blood specimen / Unknown Venipuncture / Unknown 03/22/2025 6:32 AM EDT 03/22/2025 6:38 AM EDT us Zulay Syed APRN LAB BLOOD ORDERABLES Final R esult Performing Organization Address City/State/[facility] Co de Phone Number [facility] [address] [place] [address] * (ABNORMAL) POCT glucose meter (03/22/2025 6:31 AM EDT) POCT Glucose 188(H) 74 - 99 mg/dL 03/22/2025 6:33 AM EDT [facility] Comment:Accuracy of a glucos e [...] Comment 03/22/2025 6:33 AM EDT [facility] Operating System Programmer ID Beverly Romano 03/22/2025 6:33 AM EDT [facility] Device ID [id number] 03/22/2025 6:33 AM EDT [facility] Specimen Type POC Venous 03/22/2025 6:33 AM EDT [facility] Blood Venous blood specimen / Unknown 03/22/2025 6:31 AM EDT 03/22/2025 6:33 AM EDT Musa Rosado MD LAB POINT OF CARE TE ST DOCKED DEVICE UNSOLICITED RESULTS Final Result Performing Organization Address City/State/[facility] Co de Phone Number [facility] [address] [place] [phone] documented in this encounter Visit Diagnoses Diagnosis CAD (coronary artery disease)- Primary Coronary atherosclerosis of unspecified type of vessel, [place] or graft CAD, multiple vessel S/P CABG [...] Coronary atherosclerosis of unspecified type of vessel, [place] tribe or graft CAD, multiple vessel S/P CABG [...] mL/hr, Administer over 30 Minutes, Routine New Bag 03/22/2025 6:14 PM EDT 1 g 240 [...] PM EDT 4 mg HYDROmorphone 1 mg/mL DESIGN TECHNOLOGY PROFESSOR (naive protocol) Patient DESIGN TECHNOLOGY PROFESSOR Dose: 0.2 mg, DESIGN TECHNOLOGY PROFESSOR Lockout: 6 Minutes, Continuous Dose (MG/hr): 0 [...] times daily with meals, First dose on Brittany 03/24/25 at 0830, Until Discontinued, Routine Given [...] Fri03/24/25 at 2100, Until Discontinued, Routine Given 03/26/2025 [...] on Fri03/29/25 at 1730, Until Discontinued, Routine Given 03/30/2025 [...] meals, [facility]after last modification[facility] at 0830, Until Discontinued, Routine Given 03/26/2025 1:47 PM EDT 6 Units Right Upper Arm (Katerin k) Given 03/26/2025 8:57 AM EDT 6 Units Ri ght Upper Arm (Back) Insulin Lispro (Admelog, HumaLOG) 100 UNIT/ML injection 8 Units 8 Units, Subcutaneous, 3 times daily with meals, First dose (after last modification) [facility] 03/26/25 at 1730, Until Discontinued, Routine Given 03/26/2025 6:08 PM EDT 8 Units Left Upper Arm (Back) insulin regular in sodium chloride 0.9 % 1 UNIT/ML infusion (Standard Insulin Protocol) 0.5-30 Units/hr (0.5-30 mL/hr), Intravenous, Titrated, Starting on [facility] 03/22/25 at 1645, Until Brittany 03/24/25 at 1455, Routine, Recovery(Phase II-Outpatient)/On Unit(Inpatient) Rate/Dose [...] externally, Every 24 hours, First dose on [facility] 03/22/25 at 2215, Until Discontinued, Administer over 12 [...] Brittany 03/24/25 at 0900, [facility] 03/26/25 at 0900, Routine Given 03/25/2025 8:37 AM EDT 30 mL Given 03/24/2025 8:26 AM EDT 30 mL magnesium hydroxide (Milk of Magnesia) 400 MG/5ML suspension 30 mL 30 mL, Oral, Daily, 8 doses, First dose (after last modification) on 03/26/25 at 0900, [facility] 04/02/25 at 0900, Routine, Recovery(Phase II-Outpatient)/On Unit(Inpatient) [...] Continuous, Starting on Fri03/23/25 at 1000, Until Fri03/26/25 at 0044, Routine Rate/Dose Verify 03/24/2025 12:00 [...] Oral, Every 6 hours, First dose on 03/27/25 at 0930, Until Discontinued, Routine Given 03/30/2025 [...] Afshan Roca RN)0648 (Given - Provider: Afshan Roca, LISSY)1322 (Given - Provider: Maureen Bang RN)1733 (Given [...] Meeks RN) 0905 (Given - Provider: Gulshan Mendoza, LISSY) aspirin chewable tablet 81 mg 81 mg, Oral, Daily, First dose on Fri03/23/25 at 0900, Until Discontinued, Routine, Recovery(Phase II-Outpatient)/On Unit(Inpatient) 0848 (Given - Provider: Maureen Bang RN) 0921 (Given - Provider: Beverly Meeks RN) 0905 (Given - Provider: Gulshan Mendoza, LISSY) atorvastatin (Lipitor) tablet 80 mg 80 mg, [...] 0847 (Given - Provider: Maureen Bang RN) 09 (Given - Provider: Beverly Meeks RN) 09 (Given - Provider: Gulshan Mendoza RN) furosemide [...] RN)2029 (Given - Provider: Afshan Roca RN) 920 [...] Afshan Roca RN)1509 (Given - Provider: Beverly Meeks, LISSY)2114 (Given - Provider: Afshan Roca RN) 0616 [...] Martell RN) 0921 (Given - Provider: Beverly Meeks RN)1320 (Given - Provider: Beverly Meeks RN)1800 (Not Given - Provider: Beverly Meeks RN [...] not met - Comment: 2100 BG of 161)2030 (Not Given - Provider: Afshan Roca RN [...] Discontinued, Routine 0850 (Given - Provider: Maureen Bang RN)1323 (Given - Provider: Maureen Bang RN)1739 (Given - Provider: Sonia aMrtell RN) 0923 (Given - Provider: Beverly Meeks RN)1321 (Given - Provider: Beverly Meeks, LISSY) Insulin [...] hours, First dose (after last modification) on Fri03/27/25 at 0930, Until Discontinued, Administer over 12 Hours, Routine 0849 (Medication Applied - Provider: Maureen Bang RN)2030 (Medication Removed - Provider: Afshan Roca RN) 09 (Medication Applied - Provider: Beverly Meeks RN - Comment: chest)2122 (Medication Removed - Provider: Afshan Roca RN) 0905 (Medication Applied - Provider: Gulshan Mendoza RN)1138 (Due: Medication Removed - Provider: Automatic Discharge Provider - Comment: Time automatically adjusted from order being discontinued) magnesium hydroxide (Milk of Magnesia) 400 MG/5ML suspension 30 mL 30 mL, Oral, Daily, 8 doses, First dose (after last modification) on Fri03/26/25 at 0900, Last dose on Fri04/02/25 at 0900, Routine, Recovery(Phase II-Outpatient)/On Unit(Inpatient) 0849 (Given - Provider: Maureen Bang RN) 0921 (Given - Provider: Beverly Meeks RN) 0905 (Given - Provider: Gulshan Mendoza RN) methocarbamol (Robaxin) tablet 1,000 mg 1,000 mg, Oral, 4 times daily, First dose (after last modification) on Fri03/26/25 at 0900, Until Discontinued, Routine, Recovery(Phase II-Outpatient)/On Unit(Inpatient) 0848 (Given - Provider: Maureen Bang RN)1322 (Given - Provider: Maureen Bang RN)1732 (Given - Provider: Sonia Martell RN)2137 (Given - Provider: Afshan Roca RN) 0921 (Given - Provider: Beverly Meeks RN)1510 (Given - Provider: Beverly Meeks RN)1808 (Given - Provider: Beverly Meeks RN)211 (Given - Provider: Afshan Roca RN) 0903 (Given - Provider: Gulshan Mendoza RN) metoprolol tartrate (Lopressor) split tablet 12.5 mg 12.5 mg, Oral, 2 times daily, First dose on Fri03/23/25 at 1330, Until Discontinued, Routine 0847 (Given - Provider: Maureen Bang RN)202 (Given - Provider: Afshan Roca RN) 0921 (Given - Provider: Beverly Meeks RN)211 (Given - Provider: Afshan Roca RN) 0904 (Given - Provider: Gulshan Mendoza RN) pantoprazole (Protonix) EC tablet 40 mg 40 mg, Oral, Daily, First dose on Fri03/23/25 at 0900, Until Discontinued, Routine 0849 (Given - Provider: Maureen Bang RN) 0921 (Given - Provider: Beverly Meeks RN) 0903 (Given - Provider: Gulshan Mendoza RN) polyethylene glycol (Miralax) packet 17 g 17 g, Oral, 2 times daily, First dose (after last modification) on Fri03/23/25 at 0900, Until Discontinued, Routine, Recovery(Phase II-Outpatient)/On Unit(Inpatient) 0849 (Given - Provider: Maureen Bang RN)2029 (Given - Provider: Afshan Roca RN) 09 (Given - Provider: Beverly Meeks RN)2113 (Given - Provider: Afshan Roca RN) 09 (Given - Provider: Gulshan Mendoza RN) senna (Senokot) tablet 17.2 mg 17.2 mg, Oral, 2 times daily, First dose (after last modification) on Fri03/23/25 at 0900, Until Discontinued, Routine, Recovery(Phase II-Outpatient)/On Unit(Inpatient) 0849 (Given - Provider: Maureen Bang RN)2028 (Given - Provider: Afshan Roca RN) 09 (Given - Provider: Beverly Meeks RN)2112 (Given - Provider: Afshan Roca RN) 0904 (Given - Provider: Gulshan Mendoza RN) simethicone (Mylicon) chewable tablet 80 mg (CANCELED) 80 mg, Oral, 4 times daily, First dose on Fri03/24/25 at 0900, Until Discontinued, Routine 0849 (Given - Provider: Maureen Bang RN)1323 (Given - Provider: Maureen Bang RN)1732 (Given - Provider: Sonia Martell RN)213 (Given - Provider: Afshan Roca RN) 0920 (Given - Provider: Beverly Meeks RN)1510 (Given - Provider: Beverly Meeks, LISSY)1808 (Given - Provider: Beverly Meeks, LISSY)2114 (Given - Provider: Afshan Roca RN) sodium chloride 0.9 % flush 10 mL 10 mL, Intravenous, Every 12 hours, First dose on Fri03/22/25 at 1730, Until Discontinued, Routine 0501 (Return to Cabinet - Provider: Afshan Roca RN)1733 (Given - Provider: Sonia Martell RN) 0454 (Return to Cabinet - Provider: Afshan Roca RN)1808 (Given - Provider: Beverly Meeks, LISSY) 0509 (Return to Cabinet - Provider: Afshan [...] - Provider: Afshan Roca RN)1039 (Return to Pending [facility] To [facility] - Provider: Maureen Bang RN)1745 (Given - Provider: Sonia Martell RN)2235 (Given - Provider: Afshan Roca RN) 0253 (Given - Provider: Afshan Roca RN) ondansetron (Zofran) injection 4 mg 4 mg, Intravenous, Every 6 hours PRN, Starting on Fri03/22/25 at 1549, Until Fri03/30/25 at 1339, Routine, [...] other interventions 0922 (Given - Provider: Beverly Meeks, RN) oxyCODONE (Roxicodone) immediate release tablet 5 mg 5 mg, Oral, Every 4 hours PRN, Starting on Fri03/29/25 at 1158, Until Fri03/30/25 at 1339, Routine, moderate pain, For pain unrelieved by other interventions 1319 (See Alternative - Provider: Beverly Meeks RN)1324 (Canceled Entry - Provider: Beverly Meeks, RN)1806 (See Alternative - Provider: Beverly Meeks, RN)2203 (See Alternative - Provider: Afshan Roca, LISSY) 0207 (See Alternative - Provider: Afshan Roca, LISSY)0901 (See Alternative - Provider: Gulshan Mendoza, RN) simethicone (Mylicon) chewable tablet 80 mg 80 mg, Oral, 4 times daily PRN, Starting on Fri03/30/25 at 0830, Until Fri03/30/25 at 1339, Routine, flatulence 0906 (Given - Provider: Gulshan Mendoza, LISSY) smog 30%-30%-30%-10% rectal enema 100 mL 100 [...] documented as of this encounter Care Teams 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
--- OUTSIDE RECORDS SUMMARY | 2025-03-22 07:39 | XMS_ITS | Encounter Summary ---
Author Organization Healthcare Address [address] [place] [address] Care Team Providers Care File Clerk Data Entry Name Role Phone David Iverson MD Primary Care Provider [phone] Ludin Gonzalez MD Unavailable [phone] Reason for Visit * Auth/Cert (Routine) Specialty Diagnoses / Procedures Referred By Contac t Referred To Contact Diagnoses Coronary artery disease due to calcified coronary lesion Coronary artery disease due to calcified coronary lesion [I25.10, I25.84] Procedures MO CABG, VEIN, THREE CABG, 2 OR MORE VESSELS Musa Rosado MD [address] [facility] [address] [place] [address] Phone: tel: fax: [facility] [address] [place] [address] Phone: tel: Referral ID Status Reason Start Date Expiration Date Visits Re quested Visits Authorized [id number] 1 1 Encounter Details Date Type Department Care Team (Late st Contact Info) Description 03/22/2025 7:39 AM EDT Anesthesia Event [facility] [address] [place] [address] Nati Aranda MD [address] [place] [address] Shelley Bridges Anesthesia Record Procedure [...] Labs 1123 ACT Performed 534s 1140 Cory [place] retracted per surgeon's request. Now 40cm at [...] Wrist; Site Prep: Chlorhexidine ; Local Anesth: [place]; Technique: Anatomical landmarks; Inserted by: tanya rojas [...] Location: Mediastinal; Size: 36 Fr; Drainage System: [place]/nonsuction water seal drainage; Removal Date: 03/24/25; Removal [...] any time in the past 12 m [facility], were you homeless or living in a retirement (including now)? No 03/23/2025 Utilities Answer Date [...] MD - 03/22/2025 4:22 PM EDT Patient: Lizandor Sprague Anesthesia Type: general Vitals Value Taken [...] portions of the procedure(s) and immediately available [facility] the entire duration. See [...] portions of the procedure(s) and immediately available [facility] the entire duration. See [...] portions of the procedure(s) [facility] See resident [...] portions of the procedure(s) and immediately available [facility] the entire duration. See resident note for details. * Anesthesia Preprocedure Evaluation - Nati Aranda MD - 03/22/2025 6:32 AM EDT Images from the original note were not included. Patient: Lizandro Sprague Procedure Information Date/Time: 03/22/25 0745 Procedure: CABG, 2 OR MORE VESSELS Location: [facility] OR [address] [place] [address] OR Surgeons: Musa Rosado MD HPI Lizandro Sprague is a 45 y.o. male who presents with Pre-op Diagnosis * Coronary artery disease due to calcified coronary lesion [I25.10, I25.84] now scheduled for CABG, 2 OR MORE VESSELS (N/A) with Musa Rosado MD on 03/22/2025 in [facility]. HTN, HLD, DM2 with neuropathy, CKD 3, [...] mg by mouth daily.) Easy Touch Pen [place], nitroglycerin, DISSOLVE 1 TABLET UNDER THE TONGUE EVERY 5 MINUTES NEEDED FOR CHEST PAIN. DO NOT EXCEED A TOTAL OF 3 DOSES IN 15 MINUTES. IF NO RELIEF CALL 911. NovoLOG FLEXPEN, sildenafil, Take 1 tablet by mouth as needed. ROS Anesthesia: Date of last anesthetic: Never had [place] Conscious sedation [facility] 02/2025 history of previous anesthesia. Does not have a history of anesthetic complications and obstructivesleep apnea. Cardiovascular: atrial fibrillation (on Xarelto), CAD and hyperlipidemia. Does not have CHF, dyspnea, dysrhythmias,pacemaker or past [place]. hypertension: is well controlled. Exercise tolerance is [...] technique(s) discussed with the patient/family: general Comment: LIAS phone screen. Spoke with Ekta Costa RN [...] Description 06/13/2025 11:40 AM EDT Office Visit [facility] Nephrology, Bone & Mineral Metabolism [address], [address] [place] [address] Sonia Medley MD [address] [place] [address] documented as of this encounter Goals Goal Patient Goal Type Associated Problems Recent Progress Patient-Stated? 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 Syed APRN documented as of this encounter Procedures Procedure Name Priority Date/Time Associated Diagnosis Comments PB ANESTHESIA NON-TIMED PROCEDURE PLACEHOLDER Routine 03/22/2025 9:51 AM EDT MO INSERT/PLACE FLOW DIRECT CATH Routine 03/22/2025 8:47 AM EDT ANESTHESIA ULTRASOUND GUIDED Routine 03/22/2025 8:47 AM EDT PB ANESTHESIA NON-TIMED PROCEDURE PLACEHOLDER Routine 03/22/2025 8:47 AM EDT MO AN CENTRAL LINE DOUBLE LUMEN Routine 03/22/2025 8:47 AM EDT PB ANESTHESIA NON-TIMED PROCEDURE PLACEHOLDER Routine 03/22/2025 8:47 AM EDT PB ANESTHESIA PLACEHOLDER Routine 03/22/2025 8:03 AM EDT MO AN ELECTIVE ENDOTRACHEAL AIRWAY Routine 03/22/2025 8:03 [...] in function. - Aorta intact following decannulation us Nati Aranda MD ANESTHESIA ORDERABLES Edite d Result - Final * MO AN CENTRAL LINE DOUBLE LUMEN, PB ANESTHESIA NON-TIMED PROCEDURE PLACEHOLDER, ANESTHESIA ULTRASOUND GUIDED, MO INSERT/PLACE FLOW DIRECT CATH (03/22/2025 8:47 AM [...] Aranda MD ANESTHESIA ORDERABLES Final Result * MO AN ELECTIVE ENDOTRACHEAL AIRWAY, PB ANESTHESIA PLACEHOLDER (03/22/2025 8:03 AM EDT) Narrative Nati Aranda MD - 03/22/2025 8:03 AM EDT Nati [...] documented as of this encounter Care Teams File Clerk Data Entry Relationship Specialty Start Date End Date David Iverson MD PCP - General 06/06/22 Ludin Gonzalez MD [facility] [place] [address] Referring Physician 02/18/25 documented as of this encounter
--- OUTSIDE RECORDS SUMMARY | 2025-03-22 07:45 | XMS_ITS | Encounter Summary ---
Author Organization Healthcare Address [address] [place] [address] Care Team Providers Care Axle Bearing Polisher Name Role Phone David Iverson MD Primary Care Provider [phone] Ludin Gonzalez MD Unavailable [phone] Reason for Visit * Auth/Cert (Routine) Specialty Diagnoses / Procedures Referred By Contac t Referred To Contact Diagnoses Coronary artery disease due to calcified coronary lesion Coronary artery disease due to calcified coronary lesion [I25.10, I25.84] Procedures MO CABG, VEIN, THREE CABG, 2 OR MORE VESSELS Musa Rosado MD [address] [address] Phone: tel: fax: [facility] [address] [place] [address] Phone: tel: Referral ID Status Reason Start Date Expiration Date Visits Re quested Visits Authorized [id number] 1 1 Encounter Details Date Type Department Care Team (Late st Contact Info) Description 03/22/2025 7:45 AM EDT - 03/22/2025 5:00 PM EDT Surgery [facility] [address] [place] [address] Musa Rosado MD [address] [address] CABG, 2 OR MORE VESSELS [[id number] (CPT )] Surgery Details Date/Time Status Location [...] any time in the past 12 m [facility], were you homeless or living in a long term (including now)? No 03/23/2025 Utilities Answer Date [...] Hold for loose stool 20 capsule 03/30/2025 5 oxyCODONE (Roxicodone) 10 MG immediate release tablet [...] Note Lizandro Gr 45 y.o. male CSN: [id number] Admission: 03/22/2025 5:35 AM Primary Problem: CAD (coronary artery disease) Primary Assistant Banquet Manager: Primary Caregiver: Self Assistance Available at Discharge: Availability of Care Givers (#Hours): Other (comment) (as needed) Family/Assistant Banquet Manager(s) Willingness Assessed to care for patient at home: Yes Family/Assistant Banquet Manager(s) Readiness Assessed to care for patient [...] Second Notice Recieved By: Pt's s/o Follow-up: [facility] [address], [address] [facility] [address] Raya Woods APRN [facility] [address] [place] [address] Go on 05/25/2025 Your appointment time is [...] this date and does not require further [facility]-based care. SW met with pt's s/o at [...] from the original note were not included. [id number] Insulin Aspart (rDNA Origin) Injection Brand Name(s): [...] buy an insulin pen separately. Check the client account assistant's information for the patient to see what [...] be sure to read and understand the client account assistant's instructions. If you are blind or have [...] or doctor for a copy of the client account assistant's information for the patient. Are there OTHER [...] medications. Ask your pharmacist or check the client account assistant's patient information for a list of the [...] and out of their sight and reach. [email or web address]://www.[employer].org Dispose of unneeded medications in a way [...] be awakened, immediately call emergency services at 391. Insulin aspart overdose can occur if you [...] of all of the prescription and nonprescription (ngbd-vjm-jywmvpx) medicines, vitamins, minerals, and dietary supplements you [...] or pharmacist about specific clinical use. The [place] [employer] represents that the information provided hereunder was formulated with a reasonable standard of care, and in conformity with professional standards in the field. The [place] [employer] makes no representations or warranties, express or implied, including, but not limited to, any implied warranty of merchantability and/or fitness for a particular purpose, with respect to such information and specifically disclaims all such warranties. Users are advised that decisions regarding drug therapy are complex medical decisions requiring the independent, informed decision of an appropriate health progressive care nurse, and the information is provided for informational purposes only. The entire monograph for a drug should be reviewed for a thorough understanding of the drug's actions, uses and side effects. The [place] [employer] does not endorse or recommend the use of any drug.The information is not a substitute for medical care. AHFS?? Patient Medication Information?. ?? Copyright, 2023. The [employer] [employer]??, [address], [address], [place], [place]. All Rights Reserved. Duplication for commercial use must be authorized by [facility]. Selected Revisions: May 20, 2023. AHFS?? Patient Medication Information?. ?? Copyright, 2024 * Zinakale NathanielRADHA - Mikayla Leung - 03/30/2025 10:52 AM EDT 1087 Oxycodone Oral Tablet, Immediate Release Brand Names: Oxaydo, Roxicodone What is this medicine? Oxycodone (gf-p-ZNR-done) is an opioid pain reliever. It is [...] special medication guide each time you pickle water pump operator this medicine. ? Overdosage: Taking too much [...] should report to your doctor or health progressive care nurse as soon as possible: ? [...] attention (report to your doctor or health progressive care nurse if they continue or are bothersome): ? constipation ? dry mouth ? itching ? nausea, vomiting ? upset stomach This list may not describe all possible side effects. Call your doctor for medical advice about side effects. You may report side effects to FDA at 2-210-MOE-2665. Where should I keep my medicine? This [...] location. To find a disposal location, visit [place]/[facility]/[place]. If you cannot take unused medicine to a proper location, you can mix the medicine with coffee grounds or max litter and dispose of in the normal trash. Your doctor may also give you a special disposal pouch for this medicine. You can also flush the medicine down the toilet. * Jh Horton - Mikayla Leung - 03/30/2025 10:51 AM EDT Images from the original note were not included. [id number] Senna Brand Name(s): Black Draught??, Ex-Lax??, Nelson's [...] directions on your package or prescription label taiwo bry, and ask your doctor or pharmacist [...] and out of their sight and reach. [email or web address]://www.[email or web address] Dispose of unneeded medications in a way [...] be awakened, immediately call emergency services at 321. What OTHER INFORMATION should I know? Ask your pharmacist any questions you have about senna. Keep a written list of all of the prescription and nonprescription (ooyi-kwg-qkmtbnm) medicines, vitamins, minerals, and dietary supplements you [...] or pharmacist about specific clinical use. The [place] [employer] represents that the information provided hereunder was formulated with a reasonable standard of care, and in conformity with professional standards in the field. The [place] [employer] makes no representations or warranties, express or implied, including, but not limited to, any implied warranty of merchantability and/or fitness for a particular purpose, with respect to such information and specifically disclaims all such warranties. Users are advised that decisions regarding drug therapy are complex medical decisions requiring the independent, informed decision of an appropriate health progressive care nurse, and the information is provided for informational purposes only. The entire monograph for a drug should be reviewed for a thorough understanding of the drug's actions, uses and side effects. The [place] [employer] does not endorse or recommend the use of any drug.The information is not a substitute for medical care. AHFS?? Patient Medication Information?. ?? Copyright, 2023. The [employer] [employer]??, [address], [address], [place], [place]. All Rights Reserved. Duplication for commercial use must be authorized by [facility]. Selected Revisions: March 25, 2024. AHFS?? Patient Medication Information?. ?? Copyright, 2024 * Jh eNlsonRADHA - Mikayla Leung - 03/30/2025 10:51 AM EDT Images from the original note were not included. 798 Narcan Nasal [place]: Rescue Guide for Opioid Overdose Step 1 [...] the video go to this web address: https://bit.ly/66Fti1I Or, scan this QR code with your smart phone ?? [facility] * Mikayla Cortez K - 03/30/2025 10:51 AM EDT Images from the original note were not included. [id number] Methocarbamol Brand Name(s): Robaxin??; also available generically [...] of all of the prescription and nonprescription (uvmw-aun-hbqtfro) medicines, vitamins, minerals, and dietary supplements you [...] or pharmacist about specific clinical use. The [place] [employer] represents that the information provided hereunder was formulated with a reasonable standard of care, and in conformity with professional standards in the field. The [place] [employer] makes no representations or warranties, express or implied, including, but not limited to, any implied warranty of merchantability and/or fitness for a particular purpose, with respect to such information and specifically disclaims all such warranties. Users are advised that decisions regarding drug therapy are complex medical decisions requiring the independent, informed decision of an appropriate health progressive care nurse, and the information is provided for informational purposes only. The entire monograph for a drug should be reviewed for a thorough understanding of the drug's actions, uses and side effects. The [place] [employer] does not endorse or recommend the use of any drug.The information is not a substitute for medical care. AHFS?? Patient Medication Information?. ?? Copyright, 2023. The [employer]??, [address], [address], [place], [place]. All Rights Reserved. Duplication for commercial use must be authorized by [facility]. Selected Revisions: May 20, 2017. AHFS?? Patient Medication Information?. ?? Copyright, 2024 * Zinakale DamonRADHA - Mikayla Leung - 03/30/2025 10:50 AM EDT Images from the original note were not included. [id number] Furosemide Brand Name(s): Lasix??; also available generically [...] of all of the prescription and nonprescription (umom-zth-qezpocy) medicines vitamins, minerals, and dietary supplements you [...] or pharmacist about specific clinical use. The [place] [employer] represents that the information provided hereunder was formulated with a reasonable standard of care, and in conformity with professional standards in the field. The [place] [employer] makes no representations or warranties, express or implied, including, but not limited to, any implied warranty of merchantability and/or fitness for a particular purpose, with respect to such information and specifically disclaims all such warranties. Users are advised that decisions regarding drug therapy are complex medical decisions requiring the independent, informed decision of an appropriate health progressive care nurse, and the information is provided for informational purposes only. The entire monograph for a drug should be reviewed for a thorough understanding of the drug's actions, uses and side effects. The [place] [employer] does not endorse or recommend the use of any drug.The information is not a substitute for medical care. AHFS?? Patient Medication Information?. ?? Copyright, 2023. The [employer]??, [address], [address], [place], [place]. All Rights Reserved. Duplication for commercial use must be authorized by [facility]. Selected Revisions: January 18, 2025. AHFS?? Patient Medication Information?. ?? Copyright, 2024 * Jh Horton - Mikayla Leung - 03/30/2025 10:50 AM EDT Images from the original note were not included. [id number] Stool Softeners Brand Name(s): Colace??, Correctol Soft [...] of all of the prescription and nonprescription (giqu-awk-budsoky) medicines, vitamins, minerals, and dietary supplements you [...] or pharmacist about specific clinical use. The [place] [employer] represents that the information provided hereunder was formulated with a reasonable standard of care, and in conformity with professional standards in the field. The [place] [employer] makes no representations or warranties, express or implied, including, but not limited to, any implied warranty of merchantability and/or fitness for a particular purpose, with respect to such information and specifically disclaims all such warranties. Users are advised that decisions regarding drug therapy are complex medical decisions requiring the independent, informed decision of an appropriate health progressive care nurse, and the information is provided for informational purposes only. The entire monograph for a drug should be reviewed for a thorough understanding of the drug's actions, uses and side effects. The [place] [employer] does not endorse or recommend the use of any drug.The information is not a substitute for medical care. AHFS?? Patient Medication Information?. ?? Copyright, 2023. The [employer] [employer]??, [address], [place], [place]. All Rights Reserved. Duplication for commercial use must be authorized by [facility]. Selected Revisions: March 25, 2024. AHFS?? Patient Medication Information?. ?? Copyright, 2024 * Jh Horton - Mikayla Leung - 03/30/2025 10:50 AM EDT Images from the original note were not included. [id number] Acetaminophen Brand Name(s): Actamin??, Feverall??, Panadol??, Tempra Quicklets??, Tylenol??, Dayquil?? (as a combination product containing Acetaminophen, Dextromethorphan, Pseudoephedrine), NyQuil Cold/Flu Relief?? (as a combination product containing Acetaminophen, Dextromethorphan, Doxylamine), Percocet?? (as a combination product containing Acetaminophen, Oxycodone) APAP, B-rdfwgv-bgvn-aminophenol, Paracetamol ?? This branded product is no [...] measuring cup or syringe provided by the client account assistant to measure each dose of the solution [...] and out of their sight and reach. [email or web address]://www.[employer].org Unneeded medications should be disposed of in [...] be awakened, immediately call emergency services at 511. If someone takes more than the recommended [...] of all of the prescription and nonprescription (awkj-jgh-xowrvvt) medicines you are taking, as well as [...] or pharmacist about specific clinical use. The [place] [employer] represents that the information provided hereunder was formulated with a reasonable standard of care, and in conformity with professional standards in the field. The [place] [employer] makes no representations or warranties, express or implied, including, but not limited to, any implied warranty of merchantability and/or fitness for a particular purpose, with respect to such information and specifically disclaims all such warranties. Users are advised that decisions regarding drug therapy are complex medical decisions requiring the independent, informed decision of an appropriate health progressive care nurse, and the information is provided for informational purposes only. The entire monograph for a drug should be reviewed for a thorough understanding of the drug's actions, uses and side effects. The [place] [employer] does not endorse or recommend the use of any drug.The information is not a substitute for medical care. AHFS?? Patient Medication Information?. ?? Copyright, 2023. The [employer]??, [address], [address], [place], [place]. All Rights Reserved. Duplication for commercial use must be authorized by [facility]. Selected Revisions: June 20, 2023. AHFS?? Patient Medication Information?. ?? Copyright, 2024 * Discharge Summary - Lian Dobbs BLIND INSTALLER - 03/30/2025 10:04 AM EDT Images from the original note were not included. Hospitalization Admit Date/Time: 03/22/2025 5:35 AM Admitting Attending: Musa Rosado Discharge Date: 03/30/2025 Discharge Attending Physician: Musa Rosado MD PCP name and Address: David Iverson MD [address] [place] [address] Referring provider name and address: No referring [...] Your Medications These medications were sent to [facility] - [place], [place] - [address] [facility] [address] acetaminophen 500 MG tablet allopurinol 300 MG [...] Sternotomy, coronary artery bypass grafting, endoscopic vein iqtlvqg-wmtpv-fqlbsnr saphenous. Vein the ascending aorta the 1st [...] Center 04/14/2025 3:40 PM Musa Rosado MD [facility] 06/13/2025 11:40 AM Sonia Medley MD [facility] Test Results Pending At Discharge Pending [...] present and normoactive x 4 quadrants SKIN: [place], warm, and dry. No rash, sores, or [...] No added salt 03/24/25 0804 Assessment: Lizandro Michelet Gr is a 45 y.o. male PMH CAD, CKD, HLD, T2DM, Afib presented to [facility] for CABG on 03/22. Endocrine Diabetes team [...] with patient, family member, primary team, bedside commercial painter planning -Diabetes education: not needed -Follow-up plan: [...] via secure chat or page us at [phone] during -7p, Friday-Friday. For after hours please [...] (porcine), 5,000 Units, Subcutaneous, q8h [facility] insulin glargine-yfgn, 34 Units, Subcutaneous, Nightly insulin [...] Transfer Exam: Sit to stand Level of [place]: Stand-by assist Physical/Nonphysical Assist: Supervision Assistive Device: Hand held assist Transfer Exam: Stand to Sit Level of [place]: Stand-by assist Physical/Nonphysical Assist: Supervision Assistive Device: [...] PM. * Progress Notes - Hilda Mera Eli, BLIND INSTALLER - 03/29/2025 8:47 AM EDT Endocrine - [...] CAD, CKD, HLD, T2DM, Afib presented to [facility] for CABG on 03/22. Endocrine Diabetes team [...] via secure chat or page us at [phone] during 7a-7p, Friday-Friday. For after hours please [...] (porcine), 5,000 Units, Subcutaneous, q8h [facility] insulin glargine-yfgn, 30 Units, Subcutaneous, Nightly insulin [...] Sternotomy, coronary artery bypass grafting, endoscopic vein muzdtko-wraqy-wskofhe saphenous. Vein the ascending aorta the 1st [...] plan for DC home tomorrow. Cardiothoracic Surgery [phone] [1] acetaminophen, 1,000 mg, Oral, q6h VIOLETTE [...] Note Lizandro Gr 45 y.o. male CSN: [id number] Room/Bed 119/119A Nutrition evaluation type: follow-up Reason [...] Scale Score: 15 Gato Scale Score: 20 Christofer/Qasim Pressure Risk Score: 45 Most Recent BM [...] 31.03 Weight Evaluation: Obese-Class 1 (BMI 30-34.9) [place] Body Weight (kg): 80.9 Percent [place] Body Weight: 128 Adjusted Body Weight (kg): 86.9 Estimated Needs: Kcal/ K-25 Kcal Provided: 6852-6624 Metabolic Cart Study Results: Current Nutrition Intake: Diet Supplements: Impact AR Diet Order: Adult Diet Diet Texture: Regular Adult Carbohydrate Restriction: Consistent CHO 2 (9247-6222 Alex, 80 g/meal) Adult Sodium Restriction: No added salt Percent Meals Eaten (%): 50-100% x 5 days Diet Experience and Nutrition History: Diet Education Provided: Will monitor Pertinent home medications: Advent needs: Nutrition Focused Physical Exam: Unable to [...] Ongoing, Progressing * Progress Notes - Ephraim Hicks, BLIND INSTALLER - 03/28/2025 12:43 PM EDT CVT Progress [...] Sternotomy, coronary artery bypass grafting, endoscopic vein hwknlkk-urhir-nitkfas saphenous. Vein the ascending aorta the 1st [...] Note Lizandro Gr 45 y.o. male CSN: [id number] Admission: 03/22/2025 5:35 AM Primary Problem: CAD [...] Pastoral Care Note: Patient was appreciative of real estate marketing coordinator's visit. was on the bed side supporting him. The chaplainprovided patient supportive listen, emotional support and spiritual support. The family appreciate real estate marketing coordinator as they informed the real estate marketing coordinator that they maybe discharged today. Referral From: Fluid Dynamicist Initiated Pastoral Care Provided For: Patient, Spouse [...] release, Expresses feeling spiritually nurtured, Appreciative of Fluid Dynamicist Support, Communicates increased satisfaction with hospital experience, Is functionally engaged in meaning making, Demonstrates and/or verbalizes increased comfort Cosigned by Eva French at 03/31/2025 9:46 AM EDT Associated attestation - Eva French - 03/31/2025 9:46 AM EDT This is to attest real estate marketing coordinator process engineering intern chart note has been reviewed and okayed. * Progress Notes - Maritza Khanna APRN - 03/28/2025 8:05 AM EDT -Nahun Gr is a 45 y.o. male PMH CAD, CKD, HLD, T2DM, Afib presented to [facility] for CABG on 03/22. 24 hr update: [...] CAD, CKD, HLD, T2DM, Afib presented to [facility] for CABG on 03/22. Endocrine Diabetes team [...] via secure chat or page us at [phone] during 7a-7p, Sun-Sat. For after hours, weekends, [...] Prevention: activity supervised assistive device/personal items within [facility] fall prevention program maintained clutter-free environment maintained [...] CAD, CKD, HLD, T2DM, Afib presented to [facility] for CABG on 03/22. 24 hr update: [...] CAD, CKD, HLD, T2DM, Afib presented to [facility] for CABG on 03/22. Endocrine Diabetes team [...] via secure chat or page us at [phone] during 7a-7p, Sun-Sat. For after hours, weekends, [...] Sternotomy, coronary artery bypass grafting, endoscopic vein wnycmrq-dyhxp-dwwmxyi saphenous. Vein the ascending aorta the 1st [...] and replete prn Acute postoperative pain - [facility] DM II (POA) Diabetic neuropathy (POA) [...] Progressing * Progress Notes - La Nena MarchNATHANIEL - 03/26/2025 10:39 AM EDT CVT Progress [...] Sternotomy, coronary artery bypass grafting, endoscopic vein iedgmkj-prqxm-vpnpdvp saphenous. Vein the ascending aorta the 1st [...] and transfuse prn - platelets 105 - /21: platelets 129 Hypocalcemia - monitor and replete [...] as able. Escalate bowel regimen. Cardiothoracic Surgery [phone] [1] acetaminophen, 650 mg, Oral, q6h [facility] allopurinol, 300 mg, Oral, Daily aspirin, 81 mg, Oral, Daily atorvastatin, 80 mg, Oral, Nightly colchicine, 0.6 mg, Oral, BID docusate sodium, 100 mg, Oral, BID fenofibrate, 145 mg, Oral, Daily furosemide, 40 mg, Oral, Daily gabapentin, 300 mg, Oral, BID heparin (porcine), 5,000 Units, Subcutaneous, q8h [facility] insulin glargine-yfgn, 26 Units, Subcutaneous, Nightly insulin [...] CAD, CKD, HLD, T2DM, Afib presented to [facility] for CABG on 03/22. 24 hr update: [...] CAD, CKD, HLD, T2DM, Afib presented to [facility] for CABG on 6/17. Endocrine Diabetes team was consulted for glycemic [...] via secure chat or page us at [phone] during 7a-7p, Sun-Sat. For after hours, weekends, holidays please contact the on-call Endocrine Fellow. Thank you for allowing us to participate in the care of this patient. * Consults - Beverly Ferguson RN - 03/25/2025 10:00 PM EDT Primary team d/c IV MEDICAL STAFF MANAGER earlier today. * Care Plan - Zaida [...] CAD, CKD, HLD, T2DM, Afib presented to [facility] for CABG on 03/22. 24 hr update: [...] CAD, CKD, HLD, T2DM, Afib presented to [facility] for CABG on 03/22. Endocrine Diabetes team [...] via secure chat or page us at [phone] during 7a-7p, Sun-Sat. For after hours, weekends, [...] Sternotomy, coronary artery bypass grafting, endoscopic vein [id number] saphenous. Vein the ascending aorta the 1st [...] Transfer Exam: Sit to stand Level of [place]: Contact guard Physical/Nonphysical Assist: Supervision, Verbal Cues, Minimal cues Assistive Device: Rollator Transfer Exam: Stand to Sit Level of [place]: Contact guard Physical/Nonphysical Assist: Minimal cues, Supervision, [...] depression, for respiratory rate < 10 IV MEDICAL STAFF MANAGER hydromorphone 1mg/ml 0.2mg q6min - CABG. Takes tramadol and gabapentin at home Blood pressure 119/50, pulse 89, temperature 37.5 ??C (99.5 ??F), temperature source Oral, resp. rate 22, height 1.829 m (6'), weight 108 kg (238 lb 8.6 oz), SpO2 93%. Please Contact Acute Pain Service with any additional questions or concerns via Sprint [employer]el orpaMagneceutical Health. * Progress Notes - Katlin Jaffe, BLIND INSTALLER - 03/25/2025 10:38 AM EDT Pain Consult Follow-Up Note Reason for Follow-up: Acute Pain Condition, Chronic Pain Condition, Multimodal pain management, MEDICAL STAFF MANAGER- Transition Off, and Postoperative Pain Control Subjective: Lizandro Gr is a 45 y.o. male admitted on 03/22/2025 with PMH HTN, HLD, DM2 with neuropathy,CKD3 and GERD who presented to [facility] for planned CABG. Post op he was started on the typical post-CABG pain regimen with MMPC Gabapentin, Robaxin, Lidocaine patch as well as opioids with Dilaudid and Oxycodone which was unsuccessful in treating his pain so Inpatient Pain Service was consulted for MEDICAL STAFF MANAGER which was started on 03/23/25. Today, primary team plans to transition of dilaudid IV MEDICAL STAFF MANAGER and requests PO recommendations for oral dilaudid given oxycodone being ineffective for him previously. Mr. Gr is seen sitting [facility]. He is calm and relaxed on my visit. He reports the dilaudid IV MEDICAL STAFF MANAGER has worked well to control his pain. I discussed with him the plan to transition off the IV MEDICAL STAFF MANAGER onto a oral pain regimen with dilaudid. [...] 300 mg Oral BID HYDROmorphone 1 mg/mL MEDICAL STAFF MANAGER (naive protocol) no dose Intravenous Continuous HYDROmorphone [...] Wean Plan Created, Pain TreatmentPreferences Discussed, and MEDICAL STAFF MANAGER- Transition off Assessment: Mr. Gr has acute on chronic, opioid tolerant, well controlled somatic pain s/p CABG. Post op he was started on MMPC and PO/IV PRN opioids; however, these were unsuccessful in treating his pain so a Dilaudid IV MEDICAL STAFF MANAGER was started on 03/23/25. Primary team has requested PO recommendations with oral dilaudid with plans to transition off MEDICAL STAFF MANAGER today. Recommendations: - Discontinue IV MEDICAL STAFF MANAGER and start: - Dilaudid 4 mg PO Q4H PRN - Give first dose 30 minutes prior to discontinuing IV MEDICAL STAFF MANAGER - Dilaudid 0.5 mg IV Q4H PRN [...] respiratory compromise and/or . Katlin Jaffe, MSN, [facility]- Department of Anesthesiology, Perioperative, Critical Care and [...] control - Pain Team consulted for IV MEDICAL STAFF MANAGER - Scheduled tylenol, robaxin, gabapentin - 03/25 - discontinue IV MEDICAL STAFF MANAGER, Pain to provide PO recommendations * Jh Horton - Katlin Chaney RN - 03/25/2025 8:20 AM EDT Images from the original note were not included. 11392 Recovery From Heart Surgery: The First Few [...] stop Last Reviewed Date: 2024 00:00:00 ?? [id number] The TM. All rights reserved. This information is not [...] ? Natural and processed cheeses such as Venezuelan, blue, mozzarella, and Turkmen Meat and protein substitutes Special instructions: ? [...] ? Oat meal ? Whole wheat ? [place] ? Pumpernickel ? White ? Raisin ? Crackers prepared without butter, lard, coconut, or palm oil ? Dry cereals that contain allowed fats ? Rice and pasta prepared with allowed fats ? Egg noodles (limit to ?? cup per day) ? Congolese ? Zimbabwean ? Citizen Of [place] muffins ? Pancakes, waffles, biscuits, and cornbread made with allowed ingredients ? Flat bread ? Luis crackers ? Matzoh crackers ? Whole grain or enriched cereals prepared with allowed oils ? Wheat germ Avoid: ? Egg or cheese bread ? Butter rolls ? Commercially prepared products: biscuits, muffins, sweet rolls, cornbread, pancakes and waffles, indonesian toast, croissants ? Noodles ? Cheese crackers ? Flavored crackers prepared with saturated fats ? Any cereal prepared with saturated fat ? Slovak noodles ? Rice and pasta prepared with eggs, cream, or high fat cheese Fruits Choose: ? Any fresh, frozen, canned, or dried fruit or juice ? Avocado Vegetables Choose: ? Any fresh, frozen, or canned vegetables ? Potatoes prepared with allowed fat ? Olives (limit to 10 small or 5 large per day) Avoid: ? Buttered, creamed, or fried vegetables ? Gkmu-v-kzswd, commercially made ? Vegetables prepared in a [...] sizes are listed below: ? Nuts: The [place] Heart Association recommends including 5 servings of [...] avocado oil, etc.: 1 tablespoon o The [place] Heart Association recommends limiting oils to 3 [...] ingredients ? Sorbet ? Ice milk ? [place] ? Gum drops ? Jelly beans ? [...] saturated fats, cheese, and/or egg yolks ? [place] chips ? Potato chips and other snack [...] much from the food you eat. Use [employer] to Help Build Your Meals The Soldcker can help you plan and track your meals and activity. You can look up individual foods to see or compare their nutritional value. You can get guidelines for what and how much you should eat. You can compare your food choices. And you can assess personal physical activities and see ways you can improve. Go to www.VANDOLAY.gov/Bolt HRcker/. Eating Heart-Healthy Food: Using the DASH Plan [...] from the original note were not included. 04106 Eating Heart-Healthy Foods Eating has a big [...] judy. Last Reviewed Date: 2022 00:00:00 ?? [id number] The TM. All rights reserved. This information is not intended as a substitute for professional medical care. Always follow your healthcare professional's instructions. * Jh Horton - Katlin Chaney RN - 03/25/2025 8:20 AM EDT Images from the original note were not included. 64107 After Bypass Surgery: Reaching, Bending, and Lifting [...] your shoulders and hips in line. ? ornamental ironworking supervisor the object and hold it close [...] directions. Last Reviewed Date: 2024 00:00:00 ?? [id number] The TM. All rights reserved. This information is not intended as a substitute for professional medical care. Always follow your healthcare professional's instructions. * [facility] Katlin Chaney [facility] - 03/25/2025 8:20 AM EDT Images from the original note were not included. 35440 After Bypass Surgery: Getting Up and Out [...] do. Last Reviewed Date: 2024 00:00:00 ?? [id number] The TM. All rights reserved. This information is not [...] AM: HDS on 4L NC. Transition from MEDICAL STAFF MANAGER to oral regimen. DC central line. No [...] round, and reactive to light. Neck: Comments: [facility] CVC Cardiovascular: Pulses: Normal pulses. Heart sounds: [...] cooperative. Results Review {Vanishing Link Review Results :[id number] I have reviewed the latest lab and imaging results. Assessment and Plan: This patient is critically ill. Assessment & Plan CAD (coronary artery disease) Present on Admission: Unknown - s/p 4vCABG on 03/[address] Sekela S/P CABG x 4 Present on Admission: [...] control - Pain Team consulted for IV MEDICAL STAFF MANAGER - Scheduled tylenol, robaxin, gabapentin - 03/25 - discontinue IV MEDICAL STAFF MANAGER, Pain to provide PO recommendations Non-Hospital Problems Microalbuminuria Type 2 diabetes mellitus with stage 2 chronic kidney disease, with long-term current use of insulin([facility]) Obesity (BMI 30-39.9) Shivani Tan MD Cosigned [...] department on the 1st floor of the [facility] near [facility] for a chest x-ray. Then [...] your incisions. Do NOT lift, push, or crop puller 5 pounds for six weeks. Do [...] Katlin Chaney CT Surgery Nurse Navigator at [phone] Friday through Friday 7am- 3:30pm [facility] [phone] after 3:30 pm, weekends and holidays - ask for the CT surgeon decision unit rn. * Progress Notes - Meera Ibarra RN - 03/25/2025 8:15 AM EDT Case Management Adult Progress Note Lizandro Gr 45 y.o. male CSN: [id number] Admission: 03/22/2025 5:35 AM Primary Problem: CAD (coronary artery disease) Anticipated Discharge Date: tbd Additional Comments: RN NIRMALA reviewed chart and met with primary team to discuss plan of care. Patient is not medically ready for discharge at this time, transfer to telemetry. LISSY SILVESTRE will continue to follow. Update: CM placed rollator referral with [facility]. Meera Ibarra RN * Progress Notes [...] statin, beta daniel -mmpc, attempt wean off housekeeper -po diuresis -remove leg drain and pacing [...] Care Review Outcome: Ongoing, Progressing Flowsheets (Taken 03/24/20252139) Progress: improving Plan of Care Reviewed With: [...] mg with IVPCA. Encouraged patient to use MEDICAL STAFF MANAGER button to help with pain control. Follow-Up: Follow-Up: Will continue to monitor and adjust as needed. Acute Pain Service Comments: Pain Service comments: Will continue MEDICAL STAFF MANAGER and/ or infusion until primary service decides it is appropriate to discontinue MEDICAL STAFF MANAGER and/ or infusion. * Care Plan - [...] CAD, CKD, HLD, T2DM, Afib presented to [facility] for CABG on 03/22. Endocrine Diabetes team [...] for D[employer] [place] [employer] 06/18/25 1511 Assessment Lizandro Gr is a 45 y.o. male PMH CAD, CKD, HLD, T2DM, Afib presented to [facility] for CABG on 03/22. Endocrine Diabetes team [...] management discussed with patient, family member, bedside commercial painter planning -Diabetes education: likely not needed -Follow-up [...] via secure chat or page us at [phone] during -7p, Friday-Friday. For after hours please [...] mg 650 mg Oral q6h [facility] Musa Sargent DO 650 mg at 03/24/25 [...] Units 5,000 Units Subcutaneous q8h [facility] Marquise Raygoza MD 5,000Units at 03/24/25 1408 HYDROmorphone 1 mg/mL MEDICAL STAFF MANAGER (naive protocol) Intravenous Continuous Fritz Mccracken MD [...] 500 mg Oral 4x daily Lisa Castro, BLIND INSTALLER 500 mg at 03/24/25 1408 metoprolol tartrate [...] mg 40 mg Oral Daily Lisa Castro BLIND INSTALLER 40 mg at 03/24/25 0826 phosphorus (K [...] 24 Hrs: No acute events. On IV MEDICAL STAFF MANAGER. OOBC. OBJECTIVE All laboratory data, images, tracings, [...] Result Date: 03/24/2025 Interval removal of the [place]-B[place] catheter. Otherwise no significant interval change. CRITICAL [...] Will send referral to patients preferred location, [facility]. [place] will contact Mr. Gr to discuss and [...] rehabilitation program. 2. Eligibility: CABG 3. Exceptions/exclusions: [facility] Cardiac Rehab Exclusions: None 4. Referral: [facility] Cardiac Rehab Referral: Patient will consider participating in a cardiac rehabilitation program. Patient was provided with contact information for the following program(s) for consideration: [facility] [place] - [phone]. 5. Information sent: Information Sent: Appropriate information [...] control - Pain Team consulted for IV MEDICAL STAFF MANAGER - Restart home gabapentin when appropriate * [...] Right Radial 03/22/25 0847 Radial 2 GCS: [place] Coma Scale Score: 15 Review of Systems [...] round, and reactive to light. Neck: Comments: [facility] CV Cardiovascular: Pulses: Normal pulses. Heart [...] cooperative. Results Review {Vanishing Link Review Results :[id number] I have reviewed the latest lab and [...] control - Pain Team consulted for IV MEDICAL STAFF MANAGER - Restart home gabapentin when appropriate Non-Hospital Problems Microalbuminuria Type 2 diabetes mellitus with stage 2 chronic kidney disease, with long-term current use of insulin([facility]) Obesity (BMI 30-39.9) Shivani Tan MD * [...] mg 650 mg Oral q6h [facility] gabapentin (Neurontin) capsule 300 mg 300 mg Oral BID HYDROmorphone 1 mg/mL MEDICAL STAFF MANAGER (naive protocol) no dose Intravenous Continuous HYDROmorphone [...] Medications Medication Name Dose Route Frequency IV MEDICAL STAFF MANAGER hydromorphone 1mg/ml 0.2mg q6min - CABG. Takes tramadol and gabapentin at home Blood pressure (!) 158/83, pulse 90, temperature (!) 38.4 ??C (101.1 ??F), temperature source Bladder, resp. rate 20, height 1.829 m (6'), weight 103 kg (227 lb 15.3 oz), SpO2 93%. Please Contact Acute Pain Service with any additional questions or concerns via Sprint [employer] orpaChartbeat [phone]. * Consults - Katie Rodrigez RN - [...] reports that pain is much improved with MEDICAL STAFF MANAGER. Encouraged patient to push MEDICAL STAFF MANAGER button more frequently for better pain control [...] 300 mg Oral BID HYDROmorphone 1 mg/mL MEDICAL STAFF MANAGER (naive protocol) no dose Intravenous Continuous HYDROmorphone [...] depression, for respiratory rate < 10 IV MEDICAL STAFF MANAGER hydromorphone 1mg/ml 0.2mg q6min - CABG. Takes tramadol and gabapentin at home Blood pressure (!) 158/83, pulse 83, temperature 37.6 ??C (99.7 ??F), temperature source Bladder, resp. rate 12, height 1.829 m (6'), weight 107 kg (236 lb 8.9 oz), SpO2 95%. Please Contact Acute Pain Service with any additional questions or concerns via Sprint [employer]el orpage [phone]. * Consults - Matilde Leon RD - 03/23/2025 3:03 PM EDTAssociated Order(s): IP CONSULT TO NUTRITION SERVICES Adult Nutrition Evaluation Note Lizandro Gr 45 y.o. male CSN: [id number] Room/Bed 213/213A Nutrition evaluation type: assessment Reason [...] Supplemental oxygen O2 Delivery Method: Nasal cannula [place] Coma Scale Score: 15 [place]ato Scale Score: [...] 32.08 Weight Evaluation: Obese-Class 1 (BMI 30-34.9) [place] Body Weight (kg): 80.9 Percent [place] Body Weight: 130 Adjusted Body Weight (kg): 86.9 Estimated Needs: Kcal/ K-25 Kcal Provided: 5698-7135 Metabolic Cart Study Results: Current Nutrition Intake: Diet Order: Adult Diet Diet Texture: Clear liquid Percent Meals Eaten (%): establishing Diet Experience and Nutrition History: Diet Education Provided: Will monitor Pertinent home medications: Advent needs: Nutrition Focused Physical Exam: Unable to [...] chloride, sodium chloride * Progress Notes - dAalidKay Ino - 03/23/2025 1:52 PM EDT Physical Therapy Evaluation Patient Name: Lizandro Gr Today's Date: 03/23/2025 PT Discharge Recommendations: Home with assistance Equipment Recommended: Rollator History Lizandro Gr is 45 y.o. male admitted 03/22/2025 for work-up of CAD (coronary artery disease). Problem List Active Hospital Problems Diagnosis Date Noted S/P CABG x 4 03/22/2025 On mechanically assisted ventilation ([facility]) 03/22/2025 Electrolyte abnormality 03/22/2025 GERD (gastroesophageal reflux disease) 03/22/2025 Anemia 03/22/2025 Poorly 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 ([facility]) 03/22/2025 Atrial fibrillation ([facility]) 03/22/2025 Postoperative pain 03/22/2025 CAD (coronary artery [...] admission Level of Mobility: Ambulatory- community Mobility [place]: Independent gait without device History of Falls: [...] Transfer Exam: Sit to stand Level of [place]: Moderate assist (50% patient's effort) Physical/Nonphysical Assist: Verbal Cues, Maximal cues, Additional assist utilized for safety Assistive Device: Rollator Transfer Exam: Stand to Sit Level of [place]: Moderate assist (50% patient's effort) Physical/Nonphysical Assist: [...] to ambulation, pt administered pain relief via MEDICAL STAFF MANAGER pump. Pt then ambulated into hallway and required verbal cueing for upright posture, pacing, and proximity to AD. Pt did not require any rest breaks throughout mobility. Pt positioned for comfort at end of session. Standardized Assessments [facility] 6-Clicks Mobility Assessment Difficulty patient has turning [...] 3-5 steps with a railing?: A lot [facility] 6-Clicks Mobility Assessment Total : 15 No [...] x 4 03/22/2025 On mechanically assisted ventilation ([facility]) 03/22/2025 Electrolyte abnormality 03/22/2025 GERD (gastroesophageal reflux disease) 03/22/2025 Anemia 03/22/2025 Poorly 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 ([facility]) 03/22/2025 Atrial fibrillation ([facility]) 03/22/2025 Postoperative pain 03/22/2025 CAD (coronary artery [...] admission Level of Mobility: Ambulatory- community Mobility [place]: Independent gait without device History of Falls: No ADL Performance: Independent Patient/Family Goals Statement To get better and go home. Objective Pain 8/10 sternal pain RN aware, pillow support provided and MEDICAL STAFF MANAGER used throughout. Delirium Screening [place] Agitation Sedation [...] Mobility Exam: Supine to Sit Level of [place]: (Not observed- found and left up in recliner) Transfers Transfer Exam: Sit to stand Level of [place]: Moderate assist (50% patient's effort) Physical/Nonphysical Assist: Verbal Cues, Maximal cues, Additional assist utilized for safety Assistive Device: Rollator Transfer Exam: Stand to Sit Level of [place]: Moderate assist (50% patient's effort) Physical/Nonphysical Assist: [...] continued education to improve carryover. Standardized Assessments [facility] 6-Click Daily Activities Help from Other: Don/Doff Regular Lower Body Clothings: A lot Help From Other: Bathing: A lot Help From Other: Toileting: A lot Help From Other: Don/Doff Upper Body Clothings: Little Help From Other: Grooming: Little Help From Other: Eating Meals: None [facility] 6 Click - Daily Activities Score: 16 [...] Note Lizandro Gr 45 y.o. male CSN: [id number] Admission: 03/22/2025 5:35 AM Primary Problem: CAD (coronary artery disease) Senior Field Service Engineer reviewed chart and spoke with the patient at bedside to complete this Initial Case Management Assessment. PCP: David Iverson MD Emergency Contact: Extended Emergency Contact Information Primary Emergency Contact: Alissa Gr Mobile Relation: Daughter Preferred language: Citizen Of [place] Carpenter Foreman needed? No Secondary Emergency Contact: VALENTINO MENESES Mobile Relation: Significant Other Preferred language: Citizen Of [place] Carpenter Foreman needed? No Insurance: Primary Visit Coverage Payer Plan Sponsor Code Group Number Group Name HUMANA MEDICARE HUMANA GOLD PLUS [id number] Primary Visit Coverage Subscriber Subscriber ID Subscriber Name Subscriber SSN Subscriber Address [id number] LIZANDRO GR [id number] [facility] [address] [place] [address] Patient information: Primary Caregiver: Self Accompanied by/Relationship: significant other Support System: Immediate family Daily Living Activities: Functional Status: Independent Living Arrangements: Family Type of Residence: Private residence, Single Level [address] [facility] [address] [facility] [address] Current DME: Equipment Currently Used at Home: [...] Dialysis Services: n/a Living Will/Advance Directive/Power of Maritime Officer /Guardian: Unable to assess: No Have you [...] [place]. Has [employer] Medicare insurance and uses [facility] in [place]. Significant other to transport and assist as [...] control - Pain Team consulted for IV MEDICAL STAFF MANAGER - Restart home gabapentin when appropriate * [...] round, and reactive to light. Neck: Comments: [facility] CV Cardiovascular: Pulses: Normal pulses. Heart [...] cooperative. Results Review {Vanishing Link Review Results :[id number] I have reviewed the latest lab and [...] 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 ([facility]) Present on Admission: Unknown - Continue Insulin [...] control - Pain Team consulted for IV MEDICAL STAFF MANAGER - Restart home gabapentin when appropriate Non-Hospital Problems Microalbuminuria Type 2 diabetes mellitus with stage 2 chronic kidney disease, with long-term current use of insulin([facility]) Obesity (BMI 30-39.9) Shivani Tan MD * [...] 300 mg Oral BID HYDROmorphone 1 mg/mL MEDICAL STAFF MANAGER (naive protocol) no dose Intravenous Continuous HYDROmorphone [...] Medications Medication Name Dose Route Frequency IV MEDICAL STAFF MANAGER hydromorphone 1mg/ml 0.2mg q6min - CABG. Takes tramadol and gabapentin at home Blood pressure (!) 158/83, pulse 71, temperature 37.3 ??C (99.1 ??F), temperature source Core, resp. rate 15, height 1.829 m (6'), weight 107 kg (236 lb 8.9 oz), SpO2 95%. Please Contact Acute Pain Service with any additional questions or concerns via Pear Deck Secure [employer] orpaMagneceutical Health9. * Consults - Segun Tam RN - 03/23/2025 9:05 AM EDT RN Pain Assessment Lizandro Gr is a 45 y.o. male General Information: Referring Physician/ Service: Musa Rosado MD Patient History Reviewed: Yes Medical History: Principal Problem: CAD (coronary artery disease) Active Problems: CKD (chronic kidney disease) stage 2, GFR 60-89 ml/min Hypertension HLD (hyperlipidemia) S/P CABG x 4 On mechanically assisted ventilation ([facility]) Electrolyte abnormality GERD (gastroesophageal reflux disease) Anemia Poorly 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 ([facility]) Atrial fibrillation ([facility]) Postoperative pain Pertinent Home Medications: Prior to [...] day. Chavez Lambert MD Easy Touch Pen [place] 31G X 8 MM misc 04/18/23 Chavez [...] tablet 650 mg 650 mg Oral q6h [facility] gabapentin (Neurontin) capsule 300 mg 300 mg Oral BID HYDROmorphone 1 mg/mL MEDICAL STAFF MANAGER (naive protocol) no dose Intravenous Continuous HYDROmorphone [...] Pain Service Plan: Plan: Place on IV MEDICAL STAFF MANAGER IV MEDICAL STAFF MANAGER request - CABG dilaudid 1 mg/ml MEDICAL STAFF MANAGER settin.2 mg q 6 minutes Basal rate: none Various methods of pain control discussed with patient and/ or family: Yes Discussed with doctor: Yes Please Contact Inpatient Pain Service with any additional questions or concerns via Pear Deck Secure Chat or page [phone]. [1] No Known Allergies [2] Social History Tobacco Use Smoking Status Never Passive exposure: Never Smokeless Tobacco Never * Consults - Loretta Horn, BLIND INSTALLER - 03/23/2025 8:37 AM EDT Pain Consult Note Reason for Consult: MEDICAL STAFF MANAGER request, Postoperative Pain Control , Chronic pain condition, Acute pain condition, and Multimodal pain management Ordering Provider: Musa Rosado MD History of Present Illness Lizandro Gr is a 45 y.o. male admitted on 03/22/2025 with PMH HTN, HLD, DM2 with neuropathy,CKD3 and GERD who presented to [facility] for planned CABG. Post op he was started on the typical post-CABG pain regimen with MMPC Gabapentin, Robaxin, Lidocaine patch as well as opioids with Dilaudid and Oxycodone. These have apparently been unsuccessful in treating his pain so Inpatient Pain Service was consulted for MEDICAL STAFF MANAGER. Today Mr. Gr is seen resting in [...] Neck: Comments: Right IJ MAC introducer with [place] in place Musculoskeletal: Comments: Decreased ROM [...] kg/m?? Results Review {Vanishing Link Review Results :[id number] I have reviewed the latest lab and imaging results. Assessment and Plan/Recommendations Assessment & Plan CAD (coronary artery disease) CKD (chronic kidney disease) stage 2, GFR 60-89 ml/min Hypertension HLD (hyperlipidemia) S/P CABG x 4 On mechanically assisted ventilation (CMS/[facility]) Electrolyte abnormality GERD (gastroesophageal reflux disease) Anemia Poorly 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 ([facility]/HCC) Atrial fibrillation ([facility]/HCC) Postoperative pain Multimodal pain management: non opioids, Non-pharmacologic therapies, Opioids Adjusted, Pain Treatment Preferences Discussed, and MEDICAL STAFF MANAGER- Started Assessment: Mr. Gr has acute on chronic, opioid tolerant, uncontrolled somatic pain s/p CABG. Post op he was started on MMPC and PO/IV PRN opioids; however, these were unsuccessful in treating his pain so he will be initiated on a Dilaudid IV MEDICAL STAFF MANAGER today. Recommendations: - Start Dilaudid IV MEDICAL STAFF MANAGER @ 0.2 mg Q6M lockout - Start [...] risk due to initiation of Dilaudid IV MEDICAL STAFF MANAGER with potential for life threatening complications including overdose, respiratory compromise and/or . Loretta Horn, MSN, [facility] Department of Anesthesiology, Perioperative, [...] dose of paralytic was given at 1420. [facility] was consulted for ICU management [...] present. Results Review {Vanishing Link Review Results :[id number] I have reviewed the latest lab and [...] (one) time each day. Easy Touch Pen [place] 31G X 8 MM misc hydroCHLOROthiazide (HYDRODiuril) [...] Sternotomy, coronary artery bypass grafting, endoscopic vein jcqsmqx-[id number] saphenous. -Vein the ascending aorta the 1st [...] stage 2 chronic kidney disease and hypertension ([facility]/HCC) Obesity (BMI 30-39.9) Procedure(s): Median Sternotomy, coronary artery bypass grafting, endoscopic vein izqrrzj-mnrba-nhebsjb saphenous. -Vein the ascending aorta the 1st [...] - Primary * Murali Gomez - Assisting Director Process Improvement(s): * Marquise Raygoza MD - Resident - Assisting Murali Gomez PAC performed endoscopic vein harvest. Marquise Raygoza emptying PGY 5-was 1st expanded function dental assistant through the entire case Anesthesia: General [...] was induced, monitoring lines were placed, a [place] catheter was floated into position and a [...] examined no active bleeding was noted. 1-24 [place]an tube was placed in the patient's right pleural cavity, 1-28 [place]an cannula was placed in the left cavity, 1-36 [place] mediastinal tube was placed. Chest tubes and [...] by Dr. Gonzalez in regards to recent [facility] with results indicating multi-vessel coronary [...] visit. Results Review {Vanishing Link Review Results :[id number] I have reviewed the latest lab and [...] Description 06/13/2025 11:40 AM EDT Office Visit [facility] Nephrology, Bone & Mineral Metabolism [address], [address] [place] [address] Sonia Medley MD [address] [place] [address] Pending Results Name Type Priority [...] Care Plan Autogenerated Problem No Zulay Syed, BLIND INSTALLER documented as of this encounter Procedures Procedure [...] UNSOLICITED RESULTS Routine 03/24/2025 11:44 AM EDT [facility], E/M 30-74 MINUTES Routine 03/24/2025 [...] UNSOLICITED RESULTS Routine 03/23/2025 1:57 PM EDT MO CRITICAL CARE, E/M 30-74 MINUTES Routine 03/23/2025 [...] 1 VIEW STAT 03/22/2025 4:46 PM EDT MO CRITICAL CARE, E/M 30-74 MINUTES Routine 03/22/2025 [...] UNSOLICITED RESULTS Routine 03/22/2025 7:57 AM EDT MO CABG, VEIN, THREE 03/22/2025 7:26 AM EDT Coronary artery disease due to calcified coronary lesion CKD (chronic kidney disease) stage 2, GFR 60-89 ml/min 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 ([facility]) Obesity (BMI 30-39.9) APTT Routine 03/22/2025 6:32 [...] Comment 03/30/2025 8:34 AM EDT [facility] [employer] Supervisor ID Katlin Cheung 03/30/2025 8:34 AM EDT [facility]ARE LAB Device ID [id number] 03/30/2025 8:34 AM EDT [facility]ALTH[facility]ARE LAB Specimen Type POC Capillary 03/30/2025 8:34 AM EDT [facility] Blood Capillary blood specimen / Unknown 03/30/2025 8:32 AM EDT 03/30/2025 8:34 AM EDT Musa Rosado MD LAB POINT OF CARE TE ST DOCKED DEVICE UNSOLICITED RESULTS Final Result [facility] [address] [place] [id number] * XR Chest 2 Views (03/30/2025 6:47 [...] MD on 03/30/2025 9:29 AM Ephraim Hicks BLIND INSTALLER IMG XR PROCEDURES Final Resu lt * (ABNORMAL) Basic Metabolic Panel, Plasma (03/30/2025 3:47 AM EDT) Glucose, Plasma 172(H) 74 - 99 mg/dL 03/30/2025 5:23 AM EDT [facility] BUN, Plasma 28(H) 7 - 21 mg/dL 03/30/2025 5:23 AM EDT [facility] Creatinine, Plasma 1.18 0.70 - 1.20 mg/dL 03/30/2025 5:23 AM EDT [facility] BUN/Creatinine Ratio 24 03/30/2025 5:23 AM EDT [facility] Sodium, Plasma 138 136 - 145 mmol/L 03/30/2025 5:23 AM EDT [facility] Potassium, Plasma 4.1 3.6 - 4.9 mmol/L 03/30/2025 5:23 AM EDT [facility] Chloride, Plasma 103 97 - 107 mmol/L 03/30/2025 5:23 AM EDT [facility] CO2, Plasma 23 22 - 29 mmol/L 03/30/2025 5:23 AM EDT [facility] Anion Gap 12 6 - 16 mmol/L 03/30/2025 5:23 AM EDT [facility] Total Calcium, Plasma 8.9 8.9 - 10.2 mg/dL 03/30/2025 5:23 AM EDT [facility] eGFRcr 78.5 mL/min/1.7 3m*2 03/30/2025 5:23 AM EDT [facility] Comment:Reported eGFRcr in m L/min/1.73m2 is based the CKD-EPI 2020 equation that does not use a race coefficient. Blood Venous blood specimen / Unknown Venipuncture / Unknown 03/30/2025 3:47 AM EDT 03/30/2025 4:48 AM EDT us Ephrami Hicks APRN LAB BLOOD ORDERABLES Final R esult [facility] [address] [place] [address] * (ABNORMAL) CBC W/O Differential (03/30/2025 3:47 AM EDT) WBC Count 7.54 3.70 - 10.30 10*3/uL LAB HEMATOLOGY METHOD 03/30/2025 4:58 AM EDT [facility] RBC Count 3.01(L) 4.60 - 6.10 10*6/uL LAB HEMATOLOGY METHOD 03/30/2025 4:58 AM EDT [facility] HGB 9.0(L) 13.7 - 17.5 g/dL LAB HEMATOLOGY METHOD 03/30/2025 4:58 AM EDT [facility] HCT 27.9(L) 40.0 - 51.0 % LAB HEMATOLOGY METHOD 03/30/2025 4:58 AM EDT [facility] Platelet Count 286 155 - 369 10*3/uL LAB HEMATOLOGY METHOD 03/30/2025 4:58 AM EDT [facility] MCV 93 79 - 98 fL LAB HEMATOLOGY METHOD 03/30/2025 4:58 AM EDT [facility] MCH 29.9 26.0 - 32.0 pg LAB HEMATOLOGY METHOD 03/30/2025 4:58 AM EDT [facility] MCHC 32.3 30.7 - 35.5 g/dL LAB HEMATOLOGY METHOD 03/30/2025 4:58 AM EDT [facility] RDW 14.3 11.5 - 14.5 % LAB HEMATOLOGY METHOD 03/30/2025 4:58 AM EDT [facility] MPV 10.7 8.8 - 12.5 fL LAB HEMATOLOGY METHOD 03/30/2025 4:58 AM EDT [facility] nRBC 0.4(H) <=0.0 per 100 WBCs LAB HEMATOLOGY METHOD 03/30/2025 4:58 AM EDT [facility] Blood Venous blood specimen / Unknown Venipuncture / Unknown 03/30/2025 3:47 AM EDT 03/30/2025 4:51 AM EDT us Ephraim Hicks BLIND INSTALLER LAB BLOOD ORDERABLES Final R esult [facility] [address] [place] [address] * (ABNORMAL) POCT glucose meter (03/29/2025 7:20 [...] Comment 03/29/2025 7:21 PM EDT [facility] [employer] Supervisor ID Guerline Arambula 03/29/20 7:21 PM EDT [facility]ALTH[facility]ARE LAB Device ID [id number] 03/29/2025 7:21 PM EDT [facility] Specimen Type POC Capillary 03/29/2025 7:21 PM EDT [facility] Blood Capillary blood specimen / Unknown 03/29/2025 7:20 PM EDT 03/29/2025 7:21 PM EDT us Musa Rosado MD LAB POINT OF CARE TE ST DOCKED DEVICE UNSOLICITED RESULTS Final Result [facility] [address] [place] [address] * (ABNORMAL) POCT glucose meter (03/29/2025 5:33 PM EDT) [facility] POCT Glucose 155(H) 74 - 99 mg/dL [...] for testing. Comment 03/29/2025 5:35 PM EDT [facility] [employer] Supervisor ID Kristie Sanon 025 5:35 PM EDT [facility] Device ID [id number] 03/29/2025 5:35 PM EDT [facility] Specimen Type POC Capillary 03/29/2025 5:35 PM EDT [facility] Blood Capillary blood specimen / Unknown 03/29/2025 5:33 PM EDT 03/29/2025 5:35 PM EDT Musa Rosado MD LAB POINT OF CARE TE ST DOCKED DEVICE UNSOLICITED RESULTS Final Result [facility] [address] [place] [address] * (ABNORMAL) POCT glucose meter (03/29/2025 12:29 PM EDT) [facility] POCT Glucose 213(H) 74 - 99 mg/dL [...] 03/29/2025 12:30 PM EDT [facility] [employer] Supervisor ID Kristie Sanon 025 12:30 PM EDT [facility]ARE LAB Device ID [id number] 03/29/2025 12:30 PM EDT [facility] Specimen Type POC Capillary 03/29/2025 12:30 PM EDT [facility] Blood Capillary blood specimen / Unknown 03/29/2025 12:29 PM EDT 03/29/2025 12:30 PM EDT Musa Rosado MD LAB POINT OF CARE TE ST DOCKED DEVICE UNSOLICITED RESULTS Final Result Performing Organization Address City/[facility]/ZIP Co de Phone Number [facility]ALTHCARE LAB [address] [place] [address] * (ABNORMAL) POCT glucose meter (03/29/2025 8:19 [...] Comment 03/29/2025 8:20 AM EDT [facility] [employer] Supervisor ID Kristie Sanon 025 8:20 AM EDT HEALTHCARE LAB Device ID [id number] 03/29/2025 8:20 AM EDT [facility] LAB Specimen Type POC Capillary 03/29/2025 8:20 AM EDT [facility] Blood Capillary blood specimen / Unknown 03/29/2025 8:19 AM EDT 03/29/2025 8:20 AM EDT us Musa Rosado MD LAB POINT OF CARE TE ST DOCKED DEVICE UNSOLICITED RESULTS Final Result Performing Organization Address City/[facility]/ZIP Co de Phone Number [facility] [address] [place] [address] * (ABNORMAL) POCT glucose meter (03/28/2025 8:02 PM EDT) [facility] POCT Glucose 179(H) 74 - 99 mg/dL [...] Comment 03/28/2025 8:04 PM EDT [facility] [employer] Supervisor ID Kathia Carl 03/28/2025 8:04 PM EDT [facility] LAB Device ID [id number] 03/28/2025 8:04 PM EDT [facility] Specimen Type POC Capillary 03/28/2025 8:04 PM EDT [facility] Blood Capillary blood specimen / Unknown 03/28/2025 8:02 PM EDT 03/28/2025 8:04 PM EDT Musa Rosado MD LAB POINT OF CARE TE ST DOCKED DEVICE UNSOLICITED RESULTS Final Result Performing Organization Address City/State/[facility] Co de Phone Number [facility]ALTH[facility]ARE LAB [address] [place] [address] * (ABNORMAL) POCT glucose meter (03/28/2025 4:59 PM EDT) [facility] POCT Glucose 164(H) 74 - 99 mg/dL [...] 03/28/2025 5:00 PM EDT [facility] [employer] Supervisor ID Kristie Sanon 025 5:00 PM EDT [facility] LAB Device ID [id number] 03/28/2025 5:00 PM EDT [facility] Specimen Type POC Capillary 03/28/2025 5:00 PM EDT [facility] Blood Capillary blood specimen / Unknown 03/28/2025 4:59 PM EDT 03/28/2025 5:00 PM EDT Musa Rosado MD LAB POINT OF CARE TE ST DOCKED DEVICE UNSOLICITED RESULTS Final Result Performing Organization Address City/[facility] Co de Phone Number [facility]ARE LAB [address] [place] [address] * (ABNORMAL) POCT glucose meter (03/28/2025 12:10 PM EDT) POCT Glucose 243(H) 74 - 99 mg/dL [...] for testing. Comment 03/28/2025 12:12 PM EDT [facility] [employer] Supervisor ID Kristie Sanon 025 12:12 PM EDT HEALTHCARE LAB Device ID [id number] 03/28/2025 12:12 PM EDT [facility] Specimen Type POC Capillary 03/28/2025 12:12 PM EDT [facility] Blood Capillary blood specimen / Unknown 03/28/2025 12:10 PM EDT 03/28/2025 12:12 PM EDT Musa Rosado MD LAB POINT OF CARE TE ST DOCKED DEVICE UNSOLICITED RESULTS Final Result [facility] [address] [place] [address] * (ABNORMAL) POCT glucose meter (03/28/2025 8:07 [...] Comment 03/28/2025 8:09 AM EDT [facility] [employer] Supervisor ID Kristie Sanon 025 8:09 AM EDT [facility]ALTH[facility]ARE LAB Device ID [id number] 03/28/2025 8:09 AM EDT [facility] Specimen Type POC Capillary 03/28/2025 8:09 AM EDT [facility] Blood Capillary blood specimen / Unknown 03/28/2025 8:07 AM EDT 03/28/2025 8:09 AM EDT Musa Rosado MD LAB POINT OF CARE TE ST DOCKED DEVICE UNSOLICITED RESULTS Final Result Performing Organization Address City/State/[facility] Co de Phone Number [facility] [address] [place] [address] * XR Chest 2 Views (03/28/2025 6:13 [...] - 2.4 mg/dL 03/28/2025 5:18 AM EDT [facility] Blood Venous blood specimen / Unknown Venipuncture / Unknown 03/28/2025 4:35 AM EDT 03/28/2025 4:42 AM EDT La Nena March APRN LAB BLOOD ORDERABLES Final Res ult [facility] [address] [place] [address] * (ABNORMAL) Comprehensive metabolic panel (03/28/2025 4:35 AM EDT) Glucose, Plasma 196(H) 74 - 99 mg/dL 03/28/2025 5:18 AM EDT [facility] BUN, Plasma 20 7 - 21 mg/dL 03/28/2025 5:18 AM EDT [facility] Creatinine, Plasma 1.13 0.70 - 1.20 mg/dL 03/28/2025 5:18 AM EDT [facility] BUN/Creatinine Ratio 18 03/28/2025 5:18 AM EDT [facility] Sodium, Plasma 134(L) 136 - 145 mmol/L 03/28/2025 5:18 AM EDT [facility] Potassium, Plasma 4.2 3.6 - 4.9 mmol/L 03/28/2025 5:18 AM EDT [facility] Chloride, Plasma 102 97 - 107 mmol/L 03/28/2025 5:18 AM EDT [facility] CO2, Plasma 22 22 - 29 mmol/L 03/28/2025 5:18 AM EDT [facility] Anion Gap 10 6 - 16 mmol/L 03/28/2025 5:18 AM EDT [facility] Total Calcium, Plasma 9.1 8.9 - 10.2 mg/dL 03/28/2025 5:18 AM EDT [facility] Total Protein 6.3 6.3 - 7.9 g/dL 03/28/2025 5:18 AM EDT [facility] Albumin, Plasma 3.6 3.5 - 5.2 g/dL 03/28/2025 5:18 AM EDT [facility] AST, Plasma 32 10 - 50 U/L 03/28/2025 5:18 AM EDT [facility] ALT, Plasma 35 10 - 50 U/L 03/28/2025 5:18 AM EDT [facility] Alkaline Phosphatase, Plasma 67 40 - 115 U/L 03/28/2025 5:18 AM EDT [facility] Total Bilirubin, Plasma 0.8 0.2 - 1.1 mg/dL 03/28/2025 5:18 AM EDT [facility] eGFRcr 82.7 mL/min/1.7 3m*2 03/28/2025 5:18 AM EDT [facility] Comment:Reported eGFRcr in m L/min/1.73m2 is based the CKD-EPI 2020 equation that does not use a race coefficient. Blood Venous blood specimen / Unknown Venipuncture / Unknown 03/28/2025 4:35 AM EDT 03/28/2025 4:42 AM EDT us La Nena March APRN LAB BLOOD ORDERABLES Final Res ult [facility] [address] [place] [address] * (ABNORMAL) Hemogram (CBC) (03/28/2025 4:35 AM EDT) WBC Count 6.01 3.70 - 10.30 10*3/uL LAB HEMATOLOGY METHOD 03/28/2025 5:08 AM EDT [facility] RBC Count 2.89(L) 4.60 - 6.10 10*6/uL LAB HEMATOLOGY METHOD 03/28/2025 5:08 AM EDT [facility] HGB 8.8(L) 13.7 - 17.5 g/dL LAB HEMATOLOGY METHOD 03/28/2025 5:08 AM EDT [facility] HCT 26.6(L) 40.0 - 51.0 % LAB HEMATOLOGY METHOD 03/28/2025 5:08 AM EDT [facility] Platelet Count 218 155 - 369 10*3/uL LAB HEMATOLOGY METHOD 03/28/2025 5:08 AM EDT [facility] MCV 92 79 - 98 fL LAB HEMATOLOGY METHOD 03/28/2025 5:08 AM EDT [facility] MCH 30.4 26.0 - 32.0 pg LAB HEMATOLOGY METHOD 03/28/2025 5:08 AM EDT [facility] MCHC 33.1 30.7 - 35.5 g/dL LAB HEMATOLOGY METHOD 03/28/2025 5:08 AM EDT [facility] RDW 13.6 11.5 - 14.5 % LAB HEMATOLOGY METHOD 03/28/2025 5:08 AM EDT [facility] MPV 10.7 8.8 - 12.5 fL LAB HEMATOLOGY METHOD 03/28/2025 5:08 AM EDT [facility] nRBC 0.5(H) <=0.0 per 100 WBCs LAB HEMATOLOGY METHOD 03/28/2025 5:08 AM EDT [facility] Blood Venous blood specimen / Unknown Venipuncture / Unknown 03/28/2025 4:35 AM EDT 03/28/2025 4:43 AM EDT us La Nena March APRN LAB BLOOD ORDERABLES Final Res ult [facility] [address] [place] [address] * (ABNORMAL) POCT glucose meter (03/27/2025 8:18 PM EDT) POCT Glucose 161(H) 74 - 99 mg/dL 03/27/2025 8:20 PM EDT [facility] Comment:Accuracy of a glucos e result [...] for testing. Comment 03/27/2025 8:20 PM EDT [facility] [employer] Supervisor ID Mandy Overton 03/27/2025 8:20 PM EDT [facility] Device ID [id number] 03/27/2025 8:20 PM EDT [facility] Specimen Type POC Capillary 03/27/2025 8:20 PM EDT [facility] Blood Capillary blood specimen / Unknown 03/27/2025 8:18 PM EDT 03/27/2025 8:20 PM EDT Musa Rosado MD LAB POINT OF CARE TE ST DOCKED DEVICE UNSOLICITED RESULTS Final Result Performing Organization Address [facility] de Phone Number HEALTHCARE LAB [address] [place] [address] * (ABNORMAL) POCT glucose meter (03/27/2025 5:45 PM EDT) [facility] POCT Glucose 184(H) 74 - 99 mg/dL [...] 03/27/2025 5:47 PM EDT [facility] [employer] Supervisor ID Larry Maher 5:47 PM EDT HEALTHCARE LAB Device ID [id number] 03/27/2025 5:47 PM EDT [facility] Specimen Type POC Capillary 03/27/2025 5:47 PM EDT [facility] Blood Capillary blood specimen / Unknown 03/27/2025 5:45 PM EDT 03/27/2025 5:47 PM EDT us Musa Rosado MD LAB POINT OF CARE TE ST DOCKED DEVICE UNSOLICITED RESULTS Final Result Performing Organization Address City/[facility] Co de Phone Number [facility] [address] [place] [address] * (ABNORMAL) POCT glucose meter (03/27/2025 1:04 PM EDT) [facility] POCT Glucose 242(H) 74 - 99 mg/dL [...] for testing. Comment 03/27/2025 1:06 PM EDT [facility] [employer] Supervisor ID Mary Jo Tracey 03/27/20 1:06 PM EDT [facility] Device ID [id number] 03/27/2025 1:06 PM EDT HEALTH[facility]ARE LAB Specimen Type POC Capillary 03/27/2025 1:06 PM EDT [facility] Blood Capillary blood specimen / Unknown 03/27/2025 1:04 PM EDT 03/27/2025 1:06 PM EDT Musa Rosado MD LAB POINT OF CARE TE ST DOCKED DEVICE UNSOLICITED RESULTS Final Result [facility] [address] [place] [address] * (ABNORMAL) POCT glucose meter (03/27/2025 8:42 AM EDT) [facility] POCT Glucose 211(H) 74 - 99 mg/dL [...] 03/27/2025 8:44 AM EDT [facility] [employer] Supervisor ID Larry Maher 8:44 AM EDT [facility] Device ID [id number] 03/27/2025 8:44 AM EDT [facility] Specimen Type POC Capillary 03/27/2025 8:44 AM EDT [facility] Blood Capillary blood specimen / Unknown 03/27/2025 8:42 AM EDT 03/27/2025 8:44 AM EDT us Musa Rosado MD LAB POINT OF CARE TE ST DOCKED DEVICE UNSOLICITED RESULTS Final Result Performing Organization Address City/[facility]/ZIP Co de Phone Number [facility] [address] [place] [address] * Magnesium (03/27/2025 5:02 AM EDT) Magnesium, Plasma 1.9 1.9 - 2.4 mg/dL 03/27/2025 5:49 AM EDT [facility] Blood Venous blood specimen / Unknown Venipuncture / Unknown 03/27/2025 5:02 AM EDT 03/27/2025 5:22 AM EDT us La Nena March APRN LAB BLOOD ORDERABLES Final Res ult [facility] [address] [place] [address] * (ABNORMAL) Comprehensive metabolic panel (03/27/2025 5:02 AM EDT) Glucose, Plasma 200(H) 74 - 99 mg/dL 03/27/2025 5:49 AM EDT [facility] BUN, Plasma 18 7 - 21 mg/dL 03/27/2025 5:49 AM EDT [facility] Creatinine, Plasma 1.03 0.70 - 1.20 mg/dL 03/27/2025 5:49 AM EDT [facility] BUN/Creatinine Ratio 17 03/27/2025 5:49 AM EDT [facility] Sodium, Plasma 138 136 - 145 mmol/L 03/27/2025 5:49 AM EDT [facility] Potassium, Plasma 4.3 3.6 - 4.9 mmol/L 03/27/2025 5:49 AM EDT [facility] Chloride, Plasma 106 97 - 107 mmol/L 03/27/2025 5:49 AM EDT [facility] CO2, Plasma 22 22 - 29 mmol/L 03/27/2025 5:49 AM EDT [facility] Anion Gap 10 6 - 16 mmol/L 03/27/2025 5:49 AM EDT [facility] Total Calcium, Plasma 8.8(L) 8.9 - 10.2 mg/dL 03/27/2025 5:49 AM EDT [facility] Total Protein 6.4 6.3 - 7.9 g/dL 03/27/2025 5:49 AM EDT [facility] Albumin, Plasma 3.4(L) 3.5 - 5.2 g/dL 03/27/2025 5:49 AM EDT [facility] AST, Plasma 21 10 - 50 U/L 03/27/2025 5:49 AM EDT [facility] ALT, Plasma 21 10 - 50 U/L 03/27/2025 5:49 AM EDT [facility] Alkaline Phosphatase, Plasma 59 40 - 115 U/L 03/27/2025 5:49 AM EDT [facility] Total Bilirubin, Plasma 0.8 0.2 - 1.1 mg/dL 03/27/2025 5:49 AM EDT [facility] eGFRcr 92.4 mL/min/1.7 3m*2 03/27/2025 5:49 AM EDT [facility] Comment:Reported eGFRcr in m L/min/1.73m2 is based the CKD-EPI 2020 equation that does not use a race coefficient. Blood Venous blood specimen / Unknown Venipuncture / Unknown 03/27/2025 5:02 AM EDT 03/27/2025 5:22 AM EDT us La Nena March APRN LAB BLOOD ORDERABLES Final Res ult [facility] [address] [place] [address] * (ABNORMAL) Hemogram (CBC) (03/27/2025 5:02 AM EDT) WBC Count 5.04 3.70 - 10.30 10*3/uL LAB HEMATOLOGY METHOD 03/27/2025 5:37 AM EDT [facility] RBC Count 2.93(L) 4.60 - 6.10 10*6/uL LAB HEMATOLOGY METHOD 03/27/2025 5:37 AM EDT [facility] HGB 8.8(L) 13.7 - 17.5 g/dL LAB HEMATOLOGY METHOD 03/27/2025 5:37 AM EDT [facility] HCT 27.3(L) 40.0 - 51.0 % LAB HEMATOLOGY METHOD 03/27/2025 5:37 AM EDT [facility] Platelet Count 174 155 - 369 10*3/uL LAB HEMATOLOGY METHOD 03/27/2025 5:37 AM EDT [facility] MCV 93 79 - 98 fL LAB HEMATOLOGY METHOD 03/27/2025 5:37 AM EDT [facility] MCH 30.0 26.0 - 32.0 pg LAB HEMATOLOGY METHOD 03/27/2025 5:37 AM EDT [facility] MCHC 32.2 30.7 - 35.5 g/dL LAB HEMATOLOGY METHOD 03/27/2025 5:37 AM EDT [facility] RDW 13.7 11.5 - 14.5 % LAB HEMATOLOGY METHOD 03/27/2025 5:37 AM EDT [facility] MPV 10.6 8.8 - 12.5 fL LAB HEMATOLOGY METHOD 03/27/2025 5:37 AM EDT [facility] nRBC 0.6(H) <=0.0 per 100 WBCs LAB HEMATOLOGY METHOD 03/27/2025 5:37 AM EDT [facility] Blood Venous blood specimen / Unknown Venipuncture / Unknown 03/27/2025 5:02 AM EDT 03/27/2025 5:22 AM EDT us [place]ena March APRN LAB BLOOD ORDERABLES Final Res ult [facility] [address] [place] [address] * XR Chest 1 View (03/27/2025 4:58 [...] on 03/27/2025 10:17 AM [place] Nena March APRN IMG XR PROCEDURES Final Result * (ABNORMAL) POCT glucose meter (03/27/2025 4:35 AM EDT) POCT Glucose 189(H) 74 - 99 mg/dL 03/27/2025 4:38 AM EDT [facility] Comment:Accuracy of a glucos e result [...] Comment 03/27/2025 4:38 AM EDT [facility] [employer] Supervisor ID Norma Vega 025 4:38 AM EDT [facility]ARE LAB Device ID [id number] 03/27/2025 4:38 AM EDT [facility] Specimen Type POC Capillary 03/27/2025 4:38 AM EDT [facility] Blood Capillary blood specimen / Unknown 03/27/2025 4:35 AM EDT 03/27/2025 4:38 AM EDT Musa Rosado MD LAB POINT OF CARE TE ST DOCKED DEVICE UNSOLICITED RESULTS Final Result Performing Organization Address [facility] Co de Phone Number [facility]ALTH[facility]ARE [facility] [address] [place] [address] * (ABNORMAL) POCT glucose meter (03/26/2025 8:20 PM EDT) POCT Glucose 260(H) 74 - 99 mg/dL [...] Comment 03/26/2025 8:24 PM EDT [facility] [employer] Supervisor ID Norma Vega 025 8:24 PM EDT [facility]ARE LAB Device ID [id number] 03/26/2025 8:24 PM EDT [facility] Specimen Type POC Capillary 03/26/2025 8:24 PM EDT [facility] Blood Capillary blood specimen / Unknown 03/26/2025 8:20 PM EDT 03/26/2025 8:24 PM EDT Musa Rosado MD LAB POINT OF CARE TE ST DOCKED DEVICE UNSOLICITED RESULTS Final Result Performing Organization Address City/[facility]/ZIP Co de Phone Number [facility]ARE [facility] [address] [place] [address] * (ABNORMAL) POCT glucose meter (03/26/2025 5:30 PM EDT) [facility] POCT Glucose 211(H) 74 - 99 mg/dL 03/26/2025 5:34 PM EDT [facility] Comment:Accuracy of a [...] Comment 03/26/2025 5:34 PM EDT [facility] [employer] Supervisor ID Tonja Olivares 5:34 PM EDT [facility]ALTH[facility]ARE LAB Device ID [id number] 03/26/2025 5:34 PM EDT [facility]ALTH[facility]ARE LAB Specimen Type POC Capillary 03/26/2025 5:34 PM EDT [facility] Blood Capillary blood specimen / Unknown 03/26/2025 5:30 PM EDT 03/26/2025 5:34 PM EDT Musa Rosdao MD LAB POINT OF CARE TE ST DOCKED DEVICE UNSOLICITED RESULTS Final Result Performing Organization Address City/State/[facility] Co de Phone Number [facility]ARE LAB [address] [place] [address] * (ABNORMAL) POCT glucose meter (03/26/2025 12:28 PM EDT) [facility] POCT Glucose 254(H) 74 - 99 mg/dL 03/26/2025 12:30 PM EDT [facility] Comment:Accuracy of [...] 03/26/2025 12:30 PM EDT [facility] [employer] Supervisor ID Tonja Olivares 12:30 PM EDT [facility] Device ID [id number] 03/26/2025 12:30 PM EDT [facility] Specimen Type POC Capillary 03/26/2025 12:30 PM EDT [facility] Blood Capillary blood specimen / Unknown 03/26/2025 12:28 PM EDT 03/26/2025 12:30 PM EDT Musa Rosado MD LAB POINT OF CARE TE ST DOCKED DEVICE UNSOLICITED RESULTS Final Result [facility] [address] [place] [address] * (ABNORMAL) POCT glucose meter (03/26/2025 8:40 AM EDT) [facility] POCT Glucose 197(H) 74 - 99 mg/dL [...] Comment 03/26/2025 8:42 AM EDT [facility] [employer] Supervisor ID Tonja Olivares 8:42 AM EDT [facility]ALTH[facility]ARE LAB Device ID [id number] 03/26/2025 8:42 AM EDT [facility] Specimen Type POC Capillary 03/26/2025 8:42 AM EDT [facility] Blood Capillary blood specimen / Unknown 03/26/2025 8:40 AM EDT 03/26/2025 8:42 AM EDT Musa Rosado MD LAB POINT OF CARE TE ST DOCKED DEVICE UNSOLICITED RESULTS Final Result [facility] [address] [place] [address] * XR Chest 1 View (03/26/2025 5:53 [...] (ABNORMAL) Lipid panel (03/26/2025 3:50 AM EDT) [facility] Cholesterol, Plasma 76 <200 mg/dL 03/26/2025 4:55 AM EDT [facility] Comment: Cholesterol Reference Range (age >17 years): Desirable <200 mg/dL Borderline 200 to 239 mg/dL Undesirable >239 mg/dL HDL 22(L) >=40 mg/dL 03/26/2025 4:55 AM EDT [facility] Comment: HDL Cholesterol Reference Ranges (age >17 years): Female, acceptable > or = 50 mg/dL Male, acceptable > or = 40 mg/dL Triglycerides, Plasma 152(H) <150 mg/dL 03/26/2025 4:55 AM EDT [facility] Comment: Triglyceride Reference Range (age >17 years): Desirable: <150 mg/dL Borderline high: 150 to 199 mg/dL High: 200 to 499 mg/dL Very high: >499 mg/dL Increased risk of pancreatitis: >1000 mg/dL Cholesterol/HDL Ratio 3 03/26/2025 4:55 AM EDT [facility] LDL, Calculated 28 <100 mg/dL 4:55 AM EDT [facility] Comment: LDL Cholesterol Reference Range [...] 12 hours? No 03/26/2025 4:55 AM EDT [facility] Blood Venous blood specimen / Unknown Venipuncture / Unknown 03/26/2025 3:50 AM EDT 03/26/2025 4:26 AM EDT La Nena March [employer] LAB BLOOD ORDERABLES Final Res ult Performing Organization Address [facility] Co de Phone Number [facility] [address] [place] [address] * Magnesium (03/26/2025 3:50 AM EDT) Magnesium, Plasma 2.1 1.9 - 2.4 mg/dL 03/26/2025 4:55 AM EDT [facility] Blood Venous blood specimen / Unknown Venipuncture / Unknown 03/26/2025 3:50 AM EDT 03/26/2025 4:26 AM EDT La Nena S March [employer] LAB BLOOD ORDERABLES Final Res ult Performing Organization Address City/[facility]/ZIP Co de Phone Number [facility] [address] [place] [address] * (ABNORMAL) Comprehensive metabolic panel (03/26/2025 3:50 AM EDT) [facility] Signature Glucose, Plasma 268(H) 74 - 99 mg/dL 03/26/2025 4:55 AM EDT [facility] BUN, Plasma 24(H) 7 - 21 mg/dL 03/26/2025 4:55 AM EDT [facility] Creatinine, Plasma 1.06 0.70 - 1.20 mg/dL 03/26/2025 4:55 AM EDT [facility] BUN/Creatinine Ratio 23 03/26/2025 4:55 AM EDT [facility] Sodium, Plasma 138 136 - 145 mmol/L 03/26/2025 4:55 AM EDT [facility] Potassium, Plasma 4.0 3.6 - 4.9 mmol/L 03/26/2025 4:55 AM EDT [facility] Chloride, Plasma 104 97 - 107 mmol/L 03/26/2025 4:55 AM EDT [facility] CO2, Plasma 25 22 - 29 mmol/L 03/26/2025 4:55 AM EDT [facility] Anion Gap 9 6 - 16 mmol/L 03/26/2025 4:55 AM EDT [facility] Total Calcium, Plasma 8.3(L) 8.9 - 10.2 mg/dL 03/26/2025 4:55 AM EDT [facility] Total Protein 5.9(L) 6.3 - 7.9 g/dL 03/26/2025 4:55 AM EDT [facility] Albumin, Plasma 3.2(L) 3.5 - 5.2 g/dL 03/26/2025 4:55 AM EDT [facility] AST, Plasma 18 10 - 50 U/L 03/26/2025 4:55 AM EDT [facility] ALT, Plasma 14 10 - 50 U/L 03/26/2025 4:55 AM EDT [facility] Alkaline Phosphatase, Plasma 43 40 - 115 U/L 03/26/2025 4:55 AM EDT [facility] Total Bilirubin, Plasma 0.5 0.2 - 1.1 mg/dL 03/26/2025 4:55 AM EDT [facility] eGFRcr 89.3 mL/min/1.7 3m*2 03/26/2025 4:55 AM EDT [facility] Comment:Reported eGFRcr in m L/min/1.73m2 is based the CKD-EPI 2020 equation that does not use a race coefficient. Blood Venous blood specimen / Unknown Venipuncture / Unknown 03/26/2025 3:50 AM EDT 03/26/2025 4:26 AM EDT us La Nena March [employer] LAB BLOOD ORDERABLES Final Res ult [facility] [address] [place] [address] * (ABNORMAL) Hemogram (CBC) (03/26/2025 3:50 AM EDT) WBC Count 4.53 3.70 - 10.30 10*3/uL LAB HEMATOLOGY METHOD 03/26/2025 4:36 AM EDT [facility] RBC Count 2.56(L) 4.60 - 6.10 10*6/uL LAB HEMATOLOGY METHOD 03/26/2025 4:36 AM EDT [facility] HGB 7.8(L) 13.7 - 17.5 g/dL LAB HEMATOLOGY METHOD 03/26/2025 4:36 AM EDT [facility] HCT 23.9(L) 40.0 - 51.0 % LAB HEMATOLOGY METHOD 03/26/2025 4:36 AM EDT [facility] Platelet Count 129(L) 155 - 369 10*3/uL LAB HEMATOLOGY METHOD 03/26/2025 4:36 AM EDT [facility] MCV 93 79 - 98 fL LAB HEMATOLOGY METHOD 03/26/2025 4:36 AM EDT [facility] MCH 30.5 26.0 - 32.0 pg LAB HEMATOLOGY METHOD 03/26/2025 4:36 AM EDT [facility] MCHC 32.6 30.7 - 35.5 g/dL LAB HEMATOLOGY METHOD 03/26/2025 4:36 AM EDT [facility] RDW 13.5 11.5 - 14.5 % LAB HEMATOLOGY METHOD 03/26/2025 4:36 AM EDT [facility] MPV 11.4 8.8 - 12.5 fL LAB HEMATOLOGY METHOD 03/26/2025 4:36 AM EDT [facility] nRBC 0.4(H) <=0.0 per 100 WBCs LAB HEMATOLOGY METHOD 03/26/2025 4:36 AM EDT [facility] Blood Venous blood specimen / Unknown Venipuncture / Unknown 03/26/2025 3:50 AM EDT 03/26/2025 4:27 AM EDT us La Nena March APRN LAB BLOOD ORDERABLES Final Res ult Performing Organization Address City/[facility] Co de Phone Number [facility] [address] [place] [address] * (ABNORMAL) POCT glucose meter (03/25/2025 9:52 PM EDT) POCT Glucose 210(H) 74 - 99 mg/dL 03/25/2025 9:54 PM EDT [facility] Comment:Accuracy of a glucos e result [...] Comment 03/25/2025 9:54 PM EDT [facility] [employer] Supervisor ID Zaida Stearns 03/25/20 9:54 PM EDT [facility]ARE LAB Device ID [id number] 03/25/2025 9:54 PM EDT [facility] Specimen Type POC Capillary 03/25/2025 9:54 PM EDT [facility] Blood Capillary blood specimen / Unknown 03/25/2025 9:52 PM EDT 03/25/2025 9:54 PM EDT us Musa Rosado MD LAB POINT OF CARE TE ST DOCKED DEVICE UNSOLICITED RESULTS Final Result Performing Organization Address City/[facility]/ZIP Co de Phone Number [facility] [address] [place] [address] * (ABNORMAL) POCT glucose meter (03/25/2025 5:01 PM EDT) [facility] POCT Glucose 214(H) 74 - 99 mg/dL 03/25/2025 5:02 PM EDT [facility] Comment:Accuracy of a [...] Comment 03/25/2025 5:02 PM EDT [facility] [employer] Supervisor ID JoviCamille tai 03/25/2025 5:02 PM EDT [facility]ARE LAB Device ID [id number] 03/25/2025 5:02 PM EDT [facility] Specimen Type POC Capillary 03/25/2025 5:02 PM EDT [facility] Blood Capillary blood specimen / Unknown 03/25/2025 5:01 PM EDT 03/25/2025 5:02 PM EDT Musa Rosado MD LAB POINT OF CARE TE ST DOCKED DEVICE UNSOLICITED RESULTS Final Result [facility] [address] [place] [address] * (ABNORMAL) POCT glucose meter (03/25/2025 10:59 AM EDT) [facility] POCT Glucose 206(H) 74 - 99 mg/dL [...] Comment 03/25/2025 11:00 AM EDT [facility] [employer] Supervisor ID JoviCamille tai 03/25/2025 11:00 AM EDT [facility] Device ID [id number] 03/25/2025 11:00 AM EDT [facility] Specimen Type POC Capillary 03/25/2025 11:00 AM EDT [facility] Blood Capillary blood specimen / Unknown 03/25/2025 10:59 AM EDT 03/25/2025 11:00 AM EDT Musa Rosado MD LAB POINT OF CARE TE ST DOCKED DEVICE UNSOLICITED RESULTS Final Result Performing Organization Address City/[facility] Co de Phone Number [facility]ARE [facility] [address] [place] [address] * (ABNORMAL) POCT glucose meter (03/25/2025 7:57 AM EDT) POCT Glucose 198(H) 74 - 99 mg/dL [...] Comment 03/25/2025 7:58 AM EDT [facility] [employer] Supervisor ID Camille Espana 03/25/2025 7:58 AM EDT HEALTH[facility]ARE LAB Device ID [id number] 03/25/2025 7:58 AM EDT [facility]ALTH[facility]ARE [facility] Specimen Type POC Capillary 03/25/2025 7:58 AM EDT [facility] Blood Capillary blood specimen / Unknown 03/25/2025 7:57 AM EDT 03/25/2025 7:58 AM EDT Musa Rosado MD LAB POINT OF CARE TE ST DOCKED DEVICE UNSOLICITED RESULTS Final Result Performing Organization Address City/[facility] Co de Phone Number [facility]ARE [facility] [address] [place] [address] * (ABNORMAL) Phosphorus, Plasma (03/25/2025 4:07 AM EDT) Phosphorus, Plasma 1.2(L) 2.5 - 4.5 mg/dL 03/25/2025 4:54 AM EDT [facility] Blood Venous blood specimen / Unknown Venipuncture / Unknown 03/25/2025 4:07 AM EDT 03/25/2025 4:20 AM EDT Musa Rosado MD LAB BLOOD ORDERABLES Final R esult Performing Organization Address [facility]/ZIP Co de Phone Number [facility] [address] [place] [address] * (ABNORMAL) Magnesium, Plasma (03/25/2025 4:07 AM EDT) Pathologist [facility] Magnesium, Plasma 1.8(L) 1.9 - 2.4 mg/dL 03/25/2025 4:54 AM EDT [facility] Blood Venous blood specimen / Unknown Venipuncture / Unknown 03/25/2025 4:07 AM EDT 03/25/2025 4:20 AM EDT Musa Rosado MD LAB BLOOD ORDERABLES Final R esult Performing Organization Address City/[facility]/ZIP Co de Phone Number [facility] [address] [place] [address] * (ABNORMAL) CBC (03/25/2025 4:07 AM EDT) WBC Count 6.01 3.70 - 10.30 10*3/uL LAB HEMATOLOGY METHOD 03/25/2025 4:30 AM EDT [facility] RBC Count 2.47(L) 4.60 - 6.10 10*6/uL LAB HEMATOLOGY METHOD 03/25/2025 4:30 AM EDT [facility] HGB 7.5(L) 13.7 - 17.5 g/dL LAB HEMATOLOGY METHOD 03/25/2025 4:30 AM EDT [facility] HCT 22.8(L) 40.0 - 51.0 % LAB HEMATOLOGY METHOD 03/25/2025 4:30 AM EDT [facility] Platelet Count 105(L) 155 - 369 10*3/uL LAB HEMATOLOGY METHOD 03/25/2025 4:30 AM EDT [facility] MCV 92 79 - 98 fL LAB HEMATOLOGY METHOD 03/25/2025 4:30 AM EDT [facility] MCH 30.4 26.0 - 32.0 pg LAB HEMATOLOGY METHOD 03/25/2025 4:30 AM EDT [facility] MCHC 32.9 30.7 - 35.5 g/dL LAB HEMATOLOGY METHOD 03/25/2025 4:30 AM EDT [facility] RDW 13.4 11.5 - 14.5 % LAB HEMATOLOGY METHOD 03/25/2025 4:30 AM EDT [facility] MPV 11.3 8.8 - 12.5 fL LAB HEMATOLOGY METHOD 03/25/2025 4:30 AM EDT [facility] nRBC 0.0 <=0.0 per 100 WBCs LAB HEMATOLOGY METHOD 03/25/2025 4:30 AM EDT [facility] Blood Venous blood specimen / Unknown Venipuncture / Unknown 03/25/2025 4:07 AM EDT 03/25/2025 4:23 AM EDT Musa Rosado MD LAB BLOOD ORDERABLES Final R esult [facility] [address] [place] [address] * (ABNORMAL) Basic metabolic panel (03/25/2025 4:07 AM EDT) Glucose, Plasma 183(H) 74 - 99 mg/dL 03/25/2025 4:54 AM EDT [facility] BUN, Plasma 22(H) 7 - 21 mg/dL 03/25/2025 4:54 AM EDT [facility] Creatinine, Plasma 1.04 0.70 - 1.20 mg/dL 03/25/2025 4:54 AM EDT [facility] BUN/Creatinine Ratio 21 03/25/2025 4:54 AM EDT [facility] Sodium, Plasma 136 136 - 145 mmol/L 03/25/2025 4:54 AM EDT [facility] Potassium, Plasma 4.3 3.6 - 4.9 mmol/L 03/25/2025 4:54 AM EDT [facility] Chloride, Plasma 101 97 - 107 mmol/L 03/25/2025 4:54 AM EDT [facility] CO2, Plasma 26 22 - 29 mmol/L 03/25/2025 4:54 AM EDT [facility] Anion Gap 9 6 - 16 mmol/L 03/25/2025 4:54 AM EDT [facility] Total Calcium, Plasma 8.2(L) 8.9 - 10.2 mg/dL 03/25/2025 4:54 AM EDT [facility] eGFRcr 91.4 mL/min/1.7 3m*2 03/25/2025 4:54 AM EDT [facility] Comment:Reported eGFRcr in m L/min/1.73m2 is based the CKD-EPI 2020 equation that does not use a race coefficient. Blood Venous blood specimen / Unknown Venipuncture / Unknown 03/25/2025 4:07 AM EDT 03/25/2025 4:20 AM EDT us Musa Rosado MD LAB BLOOD ORDERABLES Final R esult [facility] [address] [place] [address] * XR Chest 1 View (03/25/2025 2:52 [...] Comment 03/24/2025 9:06 PM EDT [facility] [employer] Supervisor ID IyengunmweJignesh vargas 03/24/2025 9:06 PM EDT HEALTH[facility]ARE LAB Device ID [id number] 03/24/2025 9:06 PM EDT [facility]ALTH[facility]ARE LAB Specimen Type POC Capillary 03/24/2025 9:06 PM EDT [facility] Blood Capillary blood specimen / Unknown 03/24/2025 9:05 PM EDT 03/24/2025 9:06 PM EDT us Musa Rosado MD LAB POINT OF CARE TE ST DOCKED DEVICE UNSOLICITED RESULTS Final Result [facility] [address] [place] [id number] * (ABNORMAL) POCT glucose meter (03/24/2025 4:19 PM EDT) [facility] POCT Glucose 183(H) 74 - 99 mg/dL [...] Comment 03/24/2025 4:20 PM EDT [facility] [employer] Supervisor ID Emilie Alonsobeth 03/24/2025 4:20 PM EDT [facility] Device ID [id number] 03/24/2025 4:20 PM EDT [facility]ALTH[facility]ARE LAB Specimen Type POC Arterial 03/24/2025 4:20 PM EDT [facility] Blood Arterial blood specimen / Unknown 03/24/2025 4:19 PM EDT 03/24/2025 4:20 PM EDT Musa Rosado MD LAB POINT OF CARE TE ST DOCKED DEVICE UNSOLICITED RESULTS Final Result [facility] [address] [place] [address] * (ABNORMAL) POCT glucose meter (03/24/2025 11:44 AM EDT) [facility] POCT Glucose 208(H) 74 - 99 mg/dL [...] for testing. Comment 03/24/2025 11:46 AM EDT [facility] [employer] Supervisor ID Emilie Alonsobeth 03/24/2025 11:46 AM EDT [facility] Device ID [id number] 03/24/2025 11:46 AM EDT [facility] Specimen Type POC Arterial 03/24/2025 11:46 AM EDT [facility] Blood Arterial blood specimen / Unknown 03/24/2025 11:44 AM EDT 03/24/2025 11:46 AM EDT us Musa Rosado MD LAB POINT OF CARE TE ST DOCKED DEVICE UNSOLICITED RESULTS Final Result Performing Organization Address City/State/[facility] Co de Phone Number [facility]ARE [facility] [address] [place] [address] * [facility]ICAL [facility]ARE, E/M 30-74 MINUTES (03/24/2025 11:33 [...] with the findings and plan as documented. Krunal Galdamez MD IN CLINIC/BEDSIDE ORDERABLES Final [...] Comment 03/24/2025 8:21 AM EDT [facility] [employer] Supervisor ID Beverly Alonso 03/24/2025 8:21 AM EDT [facility] Device ID [id number] 03/24/2025 8:21 AM EDT [facility]ALTH[facility] Specimen Type POC Arterial 03/24/2025 8:21 AM EDT [facility] Blood Arterial blood specimen / Unknown 03/24/2025 7:45 AM EDT 03/24/2025 8:21 AM EDT Musa Rosado MD LAB POINT OF CARE TE ST DOCKED DEVICE UNSOLICITED RESULTS Final Result Performing Organization Address [facility] Co de Phone Number [facility] [address] [place] [address] * (ABNORMAL) POCT glucose meter (03/24/2025 5:56 AM EDT) POCT Glucose 146(H) 74 - 99 mg/dL [...] Comment 03/24/2025 5:58 AM EDT [facility] [employer] Supervisor ID Yuri Diggs 03/24/2025 5:58 AM EDT HEALTHCARE LAB Device ID [id number] 03/24/2025 5:58 AM EDT [facility] Specimen Type POC Capillary 03/24/2025 5:58 AM EDT [facility] Blood Capillary blood specimen / Unknown 03/24/2025 5:56 AM EDT 03/24/2025 5:58 AM EDT Musa Rosado MD LAB POINT OF CARE TE ST DOCKED DEVICE UNSOLICITED RESULTS Final Result Performing Organization Address City/[facility]/ZIP Co de Phone Number [facility] [address] [place] [address] * (ABNORMAL) POCT glucose meter (03/24/2025 3:40 [...] Comment 03/24/2025 3:41 AM EDT [facility] [employer] Supervisor ID Yuri Diggs 03/24/2025 3:41 AM EDT [facility]ALTH[facility]ARE LAB Device ID [id number] 03/24/2025 3:41 AM EDT [facility]ALTH[facility] Specimen Type POC Capillary 03/24/2025 3:41 AM EDT [facility] Blood Capillary blood specimen / Unknown 03/24/2025 3:40 AM EDT 03/24/2025 3:41 AM EDT Msua Rosado MD LAB POINT OF CARE TE ST DOCKED DEVICE UNSOLICITED RESULTS Final Result Performing Organization Address City/State/[facility] Co de Phone Number [facility] [address] [place] [address] * XR Chest 1 View (03/24/2025 3:14 AM EDT) Anatomical Region Laterality Modality Chest Digital Radiogra phy Impressions 03/24/2025 9:52 AM EDT Interval removal of the Green[place]-Brea catheter. Otherwise no significant interval change. CRITICAL RESULT: No. COMMUNICATION: Per this written report. Drafted by Milli Elkins MD on 03/24/2025 9:51 AM Final report signed by Milli Elikns MD on 03/24/2025 9:52 AM Narrative 03/24/2025 9:52 AM EDT CLINICAL INDICATION: Post-Op Cardiac Surgery TECHNIQUE: Single AP view of chest. COMPARISON: One day prior FINDINGS: Interval removal of the [place]-Brea catheter. The rest of the portal hardware [...] day prior FINDINGS: Interval removal of the [place]-Brea catheter. The rest of the portalhardware unchanged. The cardiac and mediastinal contours are unchanged. Nosizable pneumothorax. Small left pleural effusion similar to prior.Persistent bilateral perihilar and bibasal lung opacities may representatelectasis. No new lung consolidation. Persistent low lung volume. IMPRESSION: Interval removal of the Greenwich-Brea catheter. Otherwise no significantinterval change. CRITICAL RESULT: [...] 03/24/2025 1:48 AM EDT [facility] [employer] Supervisor ID Yuri Diggs 03/24/2025 1:48 AM EDT [facility] Device ID [id number] 03/24/2025 1:48 AM EDT HEALTHCARE LAB Specimen Type POC Capillary 03/24/2025 1:48 AM EDT [facility]ALTH[facility] Blood Capillary blood specimen / Unknown 03/24/2025 1:46 AM EDT 03/24/2025 1:48 AM EDT us Musa Rosado MD LAB POINT OF CARE TE ST DOCKED DEVICE UNSOLICITED RESULTS Final Result [facility] [address] [place] [id number] * (ABNORMAL) Blood gas, arterial (03/24/2025 12:08 AM EDT) pH, Arterial 7.42 7.35 - 7.45 LAB HEMATOLOGY METHOD 03/24/2025 12:18 AM EDT [facility] pCO2, Arterial 43 32 - 45 mmHg LAB HEMATOLOGY METHOD 03/24/2025 12:18 AM EDT [facility] pO2, Arterial 58(LL) 83 - 108 mmHg LAB HEMATOLOGY METHOD 03/24/2025 12:18 AM EDT [facility] SO2, Measured, Arterial 90(L) 94 - 98 % LAB HEMATOLOGY METHOD 03/24/2025 12:18 AM EDT [facility] Base Excess, Arterial 2.9 -2.0 - 3.0 mmol/L LAB HEMATOLOGY METHOD 03/24/2025 12:18 AM EDT [facility] Bicarbonate, Calculated, Arterial 28(H) 22 - 26 mmol/L LAB HEMATOLOGY METHOD 03/24/2025 12:18 AM EDT [facility] Hematocrit, Whole Blood 26.5(L) 40.0 - 51.0 % LAB HEMATOLOGY METHOD 03/24/2025 12:18 AM EDT [facility] Sodium, Whole Blood 138 136 - 145 mmol/L LAB HEMATOLOGY METHOD 03/24/2025 12:18 AM EDT [facility] Potassium, Whole Blood 4.2 3.6 - 4.9 mmol/L LAB HEMATOLOGY METHOD 03/24/2025 12:18 AM EDT [facility] Chloride, Whole Blood 104 97 - 107 mmol/L LAB HEMATOLOGY METHOD 03/24/2025 12:18 AM EDT [facility] Glucose, Whole Blood 161(H) 74 - 99 mg/dL LAB HEMATOLOGY METHOD 03/24/2025 12:18 AM EDT [facility] Ionized Calcium, Whole Blood 4.6 4.6 - 5.1 mg/dL LAB HEMATOLOGY METHOD 03/24/2025 12:18 AM EDT [facility] Lactate, Arterial, Whole Blood 1.1 0.5 - 1.6 mmol/L LAB HEMATOLOGY METHOD 03/24/2025 12:18 AM EDT [facility] Blood Arterial blood specimen / Unknown Arterial Puncture / Unknown 03/24/2025 12:08 AM EDT 03/24/2025 12:14 AM EDT us Musa Rosado MD LAB BLOOD ORDERABLES Final R esult Performing Organization Address City/[facility]/ZIP Co de Phone Number [facility] [address] [place] [address] * (ABNORMAL) Phosphorus, Plasma (03/24/2025 12:07 AM EDT) Phosphorus, Plasma 2.1(L) 2.5 - 4.5 mg/dL 03/24/2025 12:44 AM EDT [facility] Blood Arterial blood specimen / Unknown Venipuncture / Unknown 03/24/2025 12:07 AM EDT 03/24/2025 12:16 AM EDT us Musa Rosado MD LAB BLOOD ORDERABLES Final R esult Performing Organization Address [facility] [place] [address] * Magnesium, Plasma (03/24/2025 12:07 AM EDT) Magnesium, Plasma 2.1 1.9 - 2.4 mg/dL 03/24/2025 12:44 AM EDT [facility] Blood Arterial blood specimen / Unknown Venipuncture / Unknown 03/24/2025 12:07 AM EDT 03/24/2025 12:16 AM EDT us Musa Rosado MD LAB BLOOD ORDERABLES Final R esult Performing Organization Address City/[facility] Co de Phone Number [facility] [address] [place] [address] * (ABNORMAL) CBC (03/24/2025 12:07 AM EDT) WBC Count 11.14(H) 3.70 - 10.30 10*3/uL LAB HEMATOLOGY METHOD 03/24/2025 12:26 AM EDT [facility] RBC Count 2.80(L) 4.60 - 6.10 10*6/uL LAB HEMATOLOGY METHOD 03/24/2025 12:26 AM EDT [facility] HGB 8.5(L) 13.7 - 17.5 g/dL LAB HEMATOLOGY METHOD 03/24/2025 12:26 AM EDT [facility] HCT 26.3(L) 40.0 - 51.0 % LAB HEMATOLOGY METHOD 03/24/2025 12:26 AM EDT [facility] Platelet Count 121(L) 155 - 369 10*3/uL LAB HEMATOLOGY METHOD 03/24/2025 12:26 AM EDT [facility] MCV 94 79 - 98 fL LAB HEMATOLOGY METHOD 03/24/2025 12:26 AM EDT [facility] MCH 30.4 26.0 - 32.0 pg LAB HEMATOLOGY METHOD 03/24/2025 12:26 AM EDT [facility] MCHC 32.3 30.7 - 35.5 g/dL LAB HEMATOLOGY METHOD 03/24/2025 12:26 AM EDT [facility] RDW 14.1 11.5 - 14.5 % LAB HEMATOLOGY METHOD 03/24/2025 12:26 AM EDT [facility] MPV 11.4 8.8 - 12.5 fL LAB HEMATOLOGY METHOD 03/24/2025 12:26 AM EDT [facility] nRBC 0.0 <=0.0 per 100 WBCs LAB HEMATOLOGY METHOD 03/24/2025 12:26 AM EDT [facility] Blood Arterial blood specimen / Unknown Venipuncture / Unknown 03/24/2025 12:07 AM EDT 03/24/2025 12:17 AM EDT us Musa Rosado MD LAB BLOOD ORDERABLES Final R esult [facility] [address] [place] [address] * (ABNORMAL) Basic metabolic panel (03/24/2025 12:07 AM EDT) [facility] Glucose, Plasma 164(H) 74 - 99 mg/dL 03/24/2025 12:44 AM EDT [facility] BUN, Plasma 21 7 - 21 mg/dL 03/24/2025 12:44 AM EDT [facility] Creatinine, Plasma 1.13 0.70 - 1.20 mg/dL 03/24/2025 12:44 AM EDT [facility] BUN/Creatinine Ratio 03/24/2025 12:44 AM EDT [facility] Sodium, Plasma 137 136 - 145 mmol/L 03/24/2025 12:44 AM EDT [facility] Potassium, Plasma 4.4 3.6 - 4.9 mmol/L 03/24/2025 12:44 AM EDT [facility] Chloride, Plasma 104 97 - 107 mmol/L 03/24/2025 12:44 AM EDT [facility] CO2, Plasma 25 22 - 29 mmol/L 03/24/2025 12:44 AM EDT [facility] Anion Gap 8 6 - 16 mmol/L 03/24/2025 12:44 AM EDT [facility] Total Calcium, Plasma 8.4(L) 8.9 - 10.2 mg/dL 03/24/2025 12:44 AM EDT [facility] eGFRcr 82.7 mL/min/1.7 3m*2 03/24/2025 12:44 AM EDT [facility] Comment:Reported eGFRcr in m L/min/1.73m2 is based the CKD-EPI 2020 equation that does not use a race coefficient. Blood Arterial blood specimen / Unknown Venipuncture / Unknown 03/24/2025 12:07 AM EDT 03/24/2025 12:16 AM EDT us Musa Rosado MD LAB BLOOD ORDERABLES Final R esult [facility] [address] [place] [address] * (ABNORMAL) POCT glucose meter (03/23/2025 9:43 PM EDT) [facility] POCT Glucose 176(H) 74 - 99 mg/dL [...] Comment 03/23/2025 9:44 PM EDT [facility] [employer] Supervisor ID Yuri Diggs 03/23/2025 9:44 PM EDT [facility] Device ID [id number] 03/23/2025 9:44 PM EDT [facility] Specimen Type POC Capillary 03/23/2025 9:44 PM EDT [facility] Blood Capillary blood specimen / Unknown 03/23/2025 9:43 PM EDT 03/23/2025 9:44 PM EDT Musa Rosado MD LAB POINT OF CARE TE ST DOCKED DEVICE UNSOLICITED RESULTS Final Result [facility] [address] [place] [address] * (ABNORMAL) POCT glucose meter (03/23/2025 7:55 PM EDT) [facility] POCT Glucose 140(H) 74 - 99 mg/dL [...] 03/23/2025 7:57 PM EDT [facility] [employer] Supervisor ID Yuri Diggs 03/23/2025 7:57 PM EDT [facility] LAB Device ID [id number] 03/23/2025 7:57 PM EDT [facility] Specimen Type POC Capillary 03/23/2025 7:57 PM EDT [facility] Blood Capillary blood specimen / Unknown 03/23/2025 7:55 PM EDT 03/23/2025 7:57 PM EDT Musa Rosado MD LAB POINT OF CARE TE ST DOCKED DEVICE UNSOLICITED RESULTS Final Result Performing Organization Address [facility] de Phone Number [facility] [address] [place] [address] * (ABNORMAL) POCT glucose meter (03/23/2025 6:27 PM EDT) [facility] POCT Glucose 163(H) 74 - 99 mg/dL [...] Comment 03/23/2025 6:29 PM EDT [facility] [employer] Supervisor ID Jose Alberto Collins 03/23/2025 6:29 PM EDT [facility] LAB Device ID [id number] 03/23/2025 6:29 PM EDT [facility] Specimen Type POC Arterial 03/23/2025 6:29 PM EDT [facility] Blood Arterial blood specimen / Unknown 03/23/2025 6:27 PM EDT 03/23/2025 6:29 PM EDT Musa Rosado MD LAB POINT OF CARE TE ST DOCKED DEVICE UNSOLICITED RESULTS Final Result Performing Organization Address City/[facility] Co de Phone Number [facility] [address] [place] [address] * (ABNORMAL) POCT glucose meter (03/23/2025 4:12 PM EDT) [facility] POCT Glucose 159(H) 74 - 99 mg/dL [...] 03/23/2025 4:14 PM EDT [facility] [employer] Supervisor ID Jose Alberto Collins 03/23/2025 4:14 PM EDT [facility] Device ID [id number] 03/23/2025 4:14 PM EDT [facility] Specimen Type POC Arterial 03/23/2025 4:14 PM EDT [facility] Blood Arterial blood specimen / Unknown 03/23/2025 4:12 PM EDT 03/23/2025 4:14 PM EDT us Musa Rosado MD LAB POINT OF CARE TE ST DOCKED DEVICE UNSOLICITED RESULTS Final Result Performing Organization Address City/[facility] Co de Phone Number [facility] [address] [place] [address] * (ABNORMAL) POCT glucose meter (03/23/2025 1:57 PM EDT) [facility] POCT Glucose 129(H) 74 - 99 mg/dL [...] Comment 03/23/2025 1:58 PM EDT [facility] [employer] Supervisor ID Jose Alberto Collins 03/23/2025 1:58 PM EDT [facility] LAB Device ID [id number] 03/23/2025 1:58 PM EDT [facility] Specimen Type POC Arterial 03/23/2025 1:58 PM EDT [facility] Blood Arterial blood specimen / Unknown 03/23/2025 1:57 PM EDT 03/23/2025 1:58 PM EDT us Musa Rosado MD LAB POINT OF CARE TE ST DOCKED DEVICE UNSOLICITED RESULTS Final Result [facility] [address] [place] [address] * MO CRITICAL CARE, E/M 30-74 MINUTES (03/23/2025 12:34 [...] 99 mg/dL 03/23/2025 12:00 PM EDT [facility] Comment:Accuracy of [...] 03/23/2025 12:00 PM EDT [facility] [employer] Supervisor ID Jose Alberto Collins 03/23/2025 12:00 PM EDT [facility] Device ID [id number] 03/23/2025 12:00 PM EDT [facility] Specimen Type POC Arterial 03/23/2025 12:00 PM EDT [facility] Blood Arterial blood specimen / Unknown 03/23/2025 11:59 AM EDT 03/23/2025 12:00 PM EDT us Musa Rosado MD LAB POINT OF CARE TE ST DOCKED DEVICE UNSOLICITED RESULTS Final Result Performing Organization Address City/[facility] Co de Phone Number [facility] [address] [place] [address] * (ABNORMAL) POCT glucose meter (03/23/2025 10:06 [...] for testing. Comment 03/23/2025 10:07 AM EDT [facility] [employer] Supervisor ID Jose Alberto Collins 03/23/2025 10:07 AM EDT [facility] Device ID [id number] 03/23/2025 10:07 AM EDT [facility] Specimen Type POC Arterial 03/23/2025 10:07 AM EDT [facility] Blood Arterial blood specimen / Unknown 03/23/2025 10:06 AM EDT 03/23/2025 10:07 AM EDT us Musa Rosado MD LAB POINT OF CARE TE ST DOCKED DEVICE UNSOLICITED RESULTS Final Result Performing Organization Address City/[facility] Co de Phone Number [facility] [address] [place] [address] * (ABNORMAL) POCT glucose meter (03/23/2025 8:01 AM EDT) POCT Glucose 142(H) 74 - 99 mg/dL [...] Comment 03/23/2025 8:03 AM EDT [facility] [employer] Supervisor ID Jose Alberto Collins 03/23/2025 8:03 AM EDT [facility] Device ID [id number] 03/23/2025 8:03 AM EDT [facility] Specimen Type POC Arterial 03/23/2025 8:03 AM EDT [facility] Blood Arterial blood specimen / Unknown 03/23/2025 8:01 AM EDT 03/23/2025 8:03 AM EDT us Musa Rosado MD LAB POINT OF CARE TE ST DOCKED DEVICE UNSOLICITED RESULTS Final Result [facility] [address] [place], [place] [id number] * (ABNORMAL) Blood gas panel, arterial (03/23/2025 6:18 AM EDT) pH, Arterial 7.39 7.35 - 7.45 LAB HEMATOLOGY METHOD 03/23/2025 6:31 AM EDT [facility] pCO2, Arterial 41 32 - 45 mmHg LAB HEMATOLOGY METHOD 03/23/2025 6:31 AM EDT [facility] pO2, Arterial 75(L) 83 - 108 mmHg LAB HEMATOLOGY METHOD 03/23/2025 6:31 AM EDT [facility] SO2, Measured, Arterial 94 94 - 98 % LAB HEMATOLOGY METHOD 03/23/2025 6:31 AM EDT [facility] Base Excess, Arterial -0.2 -2.0 - 3.0 mmol/L LAB HEMATOLOGY METHOD 03/23/2025 6:31 AM EDT [facility] Bicarbonate, Calculated, Arterial 25 22 - 26 mmol/L LAB HEMATOLOGY METHOD 03/23/2025 6:31 AM EDT [facility] Hematocrit, Whole Blood 28.9(L) 40.0 - 51.0 % LAB HEMATOLOGY METHOD 03/23/2025 6:31 AM EDT [facility] Sodium, Whole Blood 141 136 - 145 mmol/L LAB HEMATOLOGY METHOD 03/23/2025 6:31 AM EDT [facility] Potassium, Whole Blood 4.1 3.6 - 4.9 mmol/L LAB HEMATOLOGY METHOD 03/23/2025 6:31 AM EDT [facility] Chloride, Whole Blood 108(H) 97 - 107 mmol/L LAB HEMATOLOGY METHOD 03/23/2025 6:31 AM EDT [facility] Glucose, Whole Blood 162(H) 74 - 99 mg/dL LAB HEMATOLOGY METHOD 03/23/2025 6:31 AM EDT [facility] Ionized Calcium, Whole Blood 4.4(L) 4.6 - 5.1 mg/dL LAB HEMATOLOGY METHOD 03/23/2025 6:31 AM EDT [facility] Lactate, Arterial, Whole Blood 1.9(H) 0.5 - 1.6 mmol/L LAB HEMATOLOGY METHOD 03/23/2025 6:31 AM EDT [facility] Blood Arterial blood specimen / Unknown Arterial Puncture / Unknown 03/23/2025 6:18 AM EDT 03/23/2025 6:27 AM EDT Musa Rosado MD LAB BLOOD ORDERABLES Final R esult [facility] [address] [place] [address] * (ABNORMAL) POCT glucose meter (03/23/2025 6:11 [...] Comment 03/23/2025 6:13 AM EDT [facility] [employer] Supervisor ID AyazlizKelly 03/23/2025 6:13 AM EDT [facility] Device ID [id number] 03/23/2025 6:13 AM EDT [facility] Specimen Type POC Arterial 03/23/2025 6:13 AM EDT [facility] Blood Arterial blood specimen / Unknown 03/23/2025 6:11 AM EDT 03/23/2025 6:13 AM EDT Musa Rosado MD LAB POINT OF CARE TE ST DOCKED DEVICE UNSOLICITED RESULTS Final Result [facility] [address] [place] [address] * ECG Adult (03/23/2025 4:28 AM EDT) EKG DIAGNOSIS CLASS Abnormal MUSE ECG Ventricular Rate 77 BPM MUSE ECG Atrial Rate 77 BPM MUSE ECG MO Interval 150 ms MUSE ECG QRSD Interval 78 ms MUSE ECG QT Interval 366 ms MUSE ECG QTC Interval 414 ms MUSE ECG P [place] 49 degrees MUSE ECG R [place] -7 degrees MUSE ECG T Wave [place] -4 degrees MUSE ECG Diagnosis Normal sinus rhythm MUSE ECG Diagnosis ST elevation, consider early repolarization , pericarditis, or injury MUSE ECG Diagnosis Nonspecific T wave abnormality MUSE ECG Diagnosis Need clinical information and correlation MUSE ECG Diagnosis MUSE ECG Diagnosis Confirmed by Jarett Steen ([id number]) on 03/23/2025 8:36:37 AM MUSE ECG 03/23/2025 4:28 AM EDT 03/23/2025 8:36 AM EDT Musa Rosado MD ECG ORDERABLES Final Result Performing Organization Address City/[facility] Co de Phone Number MUSE ECG * (ABNORMAL) POCT glucose meter (03/23/2025 3:59 AM EDT) Pathologist [facility] POCT Glucose 162(H) 74 - 99 mg/dL [...] 03/23/2025 4:01 AM EDT [facility] [employer] Supervisor ID Kelly Haynes 03/23/2025 4:01 AM EDT [facility] Device ID [id number] 03/23/2025 4:01 AM EDT [facility] Specimen Type POC Arterial 03/23/2025 4:01 AM EDT [facility] Blood Arterial blood specimen / Unknown 03/23/2025 3:59 AM EDT 03/23/2025 4:01 AM EDT us Musa Rosado MD LAB POINT OF CARE TE ST DOCKED DEVICE UNSOLICITED RESULTS Final Result [facility] [address] [place] [address] * Phosphorus, Plasma (03/23/2025 3:56 AM EDT) Phosphorus, Plasma 3.7 2.5 - 4.5 mg/dL 03/23/2025 4:40 AM EDT [facility] Blood Arterial blood specimen / Unknown Arterial Puncture / Unknown 03/23/2025 3:56 AM EDT 03/23/2025 4:12 AM EDT us Musa Rosado MD LAB BLOOD ORDERABLES Final R esult Performing Organization Address City/[facility]/[place] [address] * Magnesium, Plasma (03/23/2025 3:56 AM EDT) Magnesium, Plasma 2.2 1.9 - 2.4 mg/dL 03/23/2025 4:40 AM EDT [facility] Blood Arterial blood specimen / Unknown Arterial Puncture / Unknown 03/23/2025 3:56 AM EDT 03/23/2025 4:12 AM EDT us Musa Rosado MD LAB BLOOD ORDERABLES Final R esult Performing Organization Address City/[facility] [place] [address] * (ABNORMAL) Basic metabolic panel (03/23/2025 3:56 AM EDT) Glucose, Plasma 159(H) 74 - 99 mg/dL 03/23/2025 4:40 AM EDT [facility] BUN, Plasma 18 7 - 21 mg/dL 03/23/2025 4:40 AM EDT [facility] Creatinine, Plasma 1.09 0.70 - 1.20 mg/dL 03/23/2025 4:40 AM EDT [facility] BUN/Creatinine Ratio 17 03/23/2025 4:40 AM EDT [facility] Sodium, Plasma 140 136 - 145 mmol/L 03/23/2025 4:40 AM EDT [facility] Potassium, Plasma 4.2 3.6 - 4.9 mmol/L 03/23/2025 4:40 AM EDT [facility] Chloride, Plasma 109(H) 97 - 107 mmol/L 03/23/2025 4:40 AM EDT [facility] CO2, Plasma 22 22 - 29 mmol/L 03/23/2025 4:40 AM EDT [facility] Anion Gap 9 6 - 16 mmol/L 03/23/2025 4:40 AM EDT [facility] Total Calcium, Plasma 8.4(L) 8.9 - 10.2 mg/dL 03/23/2025 4:40 AM EDT [facility] eGFRcr 86.4 mL/min/1.7 3m*2 03/23/2025 4:40 AM EDT [facility] Comment:Reported eGFRcr in m L/min/1.73m2 is based the CKD-EPI 2020 equation that does not use a race coefficient. Blood Arterial blood specimen / Unknown Arterial Puncture / Unknown 03/23/2025 3:56 AM EDT 03/23/2025 4:12 AM EDT us Musa Rosado MD LAB BLOOD ORDERABLES Final R esult [facility] [address] [place] [address] * (ABNORMAL) Blood gas, arterial (03/23/2025 3:56 AM EDT) pH, Arterial 7.40 7.35 - 7.45 LAB HEMATOLOGY METHOD 03/23/2025 4:11 AM EDT [facility] pCO2, Arterial 40 32 - 45 mmHg LAB HEMATOLOGY METHOD 03/23/2025 4:11 AM EDT [facility] pO2, Arterial 67(L) 83 - 108 mmHg LAB HEMATOLOGY METHOD 03/23/2025 4:11 AM EDT [facility] SO2, Measured, Arterial 92(L) 94 - 98 % LAB HEMATOLOGY METHOD 03/23/2025 4:11 AM EDT [facility] Base Excess, Arterial 0.0 -2.0 - 3.0 mmol/L LAB HEMATOLOGY METHOD 03/23/2025 4:11 AM EDT [facility] Bicarbonate, Calculated, Arterial 25 22 - 26 mmol/L LAB HEMATOLOGY METHOD 03/23/2025 4:11 AM EDT [facility] Hematocrit, Whole Blood 29.5(L) 40.0 - 51.0 % LAB HEMATOLOGY METHOD 03/23/2025 4:11 AM EDT [facility] Sodium, Whole Blood 142 136 - 145 mmol/L LAB HEMATOLOGY METHOD 03/23/2025 4:11 AM EDT [facility] Potassium, Whole Blood 4.1 3.6 - 4.9 mmol/L LAB HEMATOLOGY METHOD 03/23/2025 4:11 AM EDT [facility] Chloride, Whole Blood 108(H) 97 - 107 mmol/L LAB HEMATOLOGY METHOD 03/23/2025 4:11 AM EDT [facility] Glucose, Whole Blood 154(H) 74 - 99 mg/dL LAB HEMATOLOGY METHOD 03/23/2025 4:11 AM EDT [facility] Ionized Calcium, Whole Blood 4.4(L) 4.6 - 5.1 mg/dL LAB HEMATOLOGY METHOD 03/23/2025 4:11 AM EDT [facility] Lactate, Arterial, Whole Blood 1.8(H) 0.5 - 1.6 mmol/L LAB HEMATOLOGY METHOD 03/23/2025 4:11 AM EDT [facility] Blood Arterial blood specimen / Unknown Arterial Puncture / Unknown 03/23/2025 3:56 AM EDT 03/23/2025 4:09 AM EDT us Musa Rosado MD LAB BLOOD ORDERABLES Final R esult [facility] [address] [place] [address] * Potassium, Plasma (03/23/2025 3:56 AM EDT) Pathologist [facility] Potassium, Plasma 4.2 3.6 - 4.9 mmol/L 03/23/2025 4:40 AM EDT [facility] Blood Arterial blood specimen / Unknown Arterial Puncture / Unknown 03/23/2025 3:56 AM EDT 03/23/2025 4:12 AM EDT us Musa Rosado MD LAB BLOOD ORDERABLES Final R esult [facility] [address] [place] [address] * (ABNORMAL) Blood gas panel with oximetry, mixed venous (03/23/2025 3:53 AM EDT) [facility] pH, Mixed Venous 7.37 7.32 - 7.43 LAB HEMATOLOGY METHOD 03/23/2025 4:11 AM EDT [facility] pCO2, Mixed Venous 46 40 - 55 mmHg LAB HEMATOLOGY METHOD 03/23/2025 4:11 AM EDT [facility] pO2, Mixed Venous 34 25 - 40 mmHg LAB HEMATOLOGY METHOD 03/23/2025 4:11 AM EDT [facility] SO2, Measured, Mixed Venous 63(L) 65 - 80 % LAB HEMATOLOGY METHOD 03/23/2025 4:11 AM EDT [facility] Bicarbonate, Calculated, Mixed Venous 26 22 - 26 mmol/L LAB HEMATOLOGY METHOD 03/23/2025 4:11 AM EDT [facility] Base Excess, Mixed Venous 0.4 -2.0 - 3.0 mmol/L LAB HEMATOLOGY METHOD 03/23/2025 4:11 AM EDT [facility] Hematocrit, Whole Blood 30.3(L) 40.0 - 51.0 % LAB HEMATOLOGY METHOD 03/23/2025 4:11 AM EDT [facility] Sodium, Whole Blood 142 136 - 145 mmol/L LAB HEMATOLOGY METHOD 03/23/2025 4:11 AM EDT [facility] Potassium, Whole Blood 4.0 3.6 - 4.9 mmol/L LAB HEMATOLOGY METHOD 03/23/2025 4:11 AM EDT [facility] Chloride, Whole Blood 109(H) 97 - 107 mmol/L LAB HEMATOLOGY METHOD 03/23/2025 4:11 AM EDT [facility] Ionized Calcium, Whole Blood 4.4(L) 4.6 - 5.1 mg/dL LAB HEMATOLOGY METHOD 03/23/2025 4:11 AM EDT [facility] Glucose, Whole Blood 152(H) 74 - 99 mg/dL LAB HEMATOLOGY METHOD 03/23/2025 4:11 AM EDT [facility] Oxyhemoglobin, Mixed Venous, Whole Blood 61.7 40.0 - 70.0 % LAB HEMATOLOGY METHOD 03/23/2025 4:11 AM EDT [facility] Hemoglobin Reduced, Mixed Venous, Whole Blood 36.7 % LAB HEMATOLOGY METHOD 03/23/2025 4:11 AM EDT [facility] Total Hemoglobin, Mixed Venous, Whole Blood 9.9(L) 13.7 - 17.5 g/dL LAB HEMATOLOGY METHOD 03/23/2025 4:11 AM EDT [facility] Blood Mixed venous blood specimen / Unknown Venipuncture / Unknown 03/23/2025 3:53 AM EDT 03/23/2025 4:09 AM EDT us Musa Rosado MD LAB BLOOD ORDERABLES Final R esult [facility] [address] [place] [address] * ECG Adult - POD 1 (03/23/2025 2:49 AM EDT) EKG DIAGNOSIS CLASS Abnormal MUSE ECG Ventricular Rate 76 BPM MUSE ECG Atrial Rate 76 BPM MUSE ECG MO Interval 118 ms MUSE ECG QRSD Interval 80 ms MUSE ECG QT Interval 362 ms MUSE ECG QTC Interval 407 ms MUSE ECG P [place] 46 degrees MUSE ECG R [place] -11 degrees MUSE ECG T Wave [place] -15 degrees MUSE ECG Diagnosis Poor data [...] MUSE ECG Diagnosis Confirmed by Jarett Steen ([id number]) on 03/23/2025 8:12:41 AM MUSE ECG 03/23/2025 [...] POCT glucose meter (03/23/2025 2:03 AM EDT) Pathologist [facility] [...] Comment 03/23/2025 2:05 AM EDT [facility] [employer] Supervisor ID [place] Oraminswi 03/23/2025 2:05 AM EDT [facility]ALTH[facility]ARE LAB Device ID [id number] 03/23/2025 2:05 AM EDT [facility]ALTH[facility] Specimen Type POC Arterial 03/23/2025 2:05 AM EDT [facility] Blood Arterial blood specimen / Unknown 03/23/2025 2:03 AM EDT 03/23/2025 2:05 AM EDT Musa Rosado MD LAB POINT OF CARE TE ST DOCKED DEVICE UNSOLICITED RESULTS Final Result Performing Organization Address City/[facility]/ZIP Co de Phone Number [facility] [address] [place] [address] * Potassium, Plasma (03/23/2025 12:14 AM EDT) [facility] Potassium, Plasma 4.4 3.6 - 4.9 mmol/L 03/23/2025 12:51 AM EDT [facility] Blood Arterial blood specimen / Unknown Arterial Puncture / Unknown 03/23/2025 12:14 AM EDT 03/23/2025 12:30 AM EDT Musa Rosado MD LAB BLOOD ORDERABLES Final R esult Performing Organization Address City/[facility]/ZIP Co de Phone Number [facility] [address] [place] [address] * (ABNORMAL) CBC (03/23/2025 12:13 AM EDT) WBC Count 11.73(H) 3.70 - 10.30 10*3/uL LAB HEMATOLOGY METHOD 03/23/2025 12:42 AM EDT [facility] RBC Count 3.28(L) 4.60 - 6.10 10*6/uL LAB HEMATOLOGY METHOD 03/23/2025 12:42 AM EDT [facility] HGB 10.1(L) 13.7 - 17.5 g/dL LAB HEMATOLOGY METHOD 03/23/2025 12:42 AM EDT [facility] HCT 29.6(L) 40.0 - 51.0 % LAB HEMATOLOGY METHOD 03/23/2025 12:42 AM EDT [facility] Platelet Count 138(L) 155 - 369 10*3/uL LAB HEMATOLOGY METHOD 03/23/2025 12:42 AM EDT [facility] MCV 90 79 - 98 fL LAB HEMATOLOGY METHOD 03/23/2025 12:42 AM EDT [facility] MCH 30.8 26.0 - 32.0 pg LAB HEMATOLOGY METHOD 03/23/2025 12:42 AM EDT [facility] MCHC 34.1 30.7 - 35.5 g/dL LAB HEMATOLOGY METHOD 03/23/2025 12:42 AM EDT [facility] RDW 13.7 11.5 - 14.5 % LAB HEMATOLOGY METHOD 03/23/2025 12:42 AM EDT [facility] MPV 11.3 8.8 - 12.5 fL LAB HEMATOLOGY METHOD 03/23/2025 12:42 AM EDT [facility] nRBC 0.0 <=0.0 per 100 WBCs LAB HEMATOLOGY METHOD 03/23/2025 12:42 AM EDT [facility] Blood Arterial blood specimen / Unknown Arterial Puncture / Unknown 03/23/2025 12:13 AM EDT 03/23/2025 12:32 AM EDT us Musa Rosado MD LAB BLOOD ORDERABLES Final R esult [facility] [address] [place] [address] * (ABNORMAL) Hematocrit (03/23/2025 12:13 AM EDT) [facility] HCT 29.6(L) 40.0 - 51.0 % LAB HEMATOLOGY METHOD 03/23/2025 12:42 AM EDT [facility] Blood Arterial blood specimen / Unknown Arterial Puncture / Unknown 03/23/2025 12:13 AM EDT 03/23/2025 12:32 AM EDT us Musa Rosado MD LAB BLOOD ORDERABLES Final R esult Performing Organization Address City/[facility]/ZIP Co de Phone Number [facility] [address] [place] [address] * (ABNORMAL) POCT glucose meter (03/23/2025 12:10 AM EDT) Pathologist [facility] POCT Glucose 168(H) 74 - 99 mg/dL [...] Comment 03/23/2025 12:11 AM EDT [facility] [employer] Supervisor ID Piya, Ojaswi 03/23/2025 12:11 AM EDT [facility] Device ID [id number] 03/23/2025 12:11 AM EDT [facility] Specimen Type POC Arterial 03/23/2025 12:11 AM EDT [facility] Blood Arterial blood specimen / Unknown 03/23/2025 12:10 AM EDT 03/23/2025 12:11 AM EDT us Musa Rosado MD LAB POINT OF CARE TE ST DOCKED DEVICE UNSOLICITED RESULTS Final Result Performing Organization Address City/[facility]/ZIP Co de Phone Number [facility] [address] [place] [address] * (ABNORMAL) Blood gas, arterial (03/23/2025 12:03 AM EDT) pH, Arterial 7.40 7.35 - 7.45 LAB HEMATOLOGY METHOD 03/23/2025 12:29 AM EDT [facility] pCO2, Arterial 38 32 - 45 mmHg LAB HEMATOLOGY METHOD 03/23/2025 12:29 AM EDT [facility] pO2, Arterial 158(H) 83 - 108 mmHg LAB HEMATOLOGY METHOD 03/23/2025 12:29 AM EDT [facility] SO2, Measured, Arterial 97 94 - 98 % LAB HEMATOLOGY METHOD 03/23/2025 12:29 AM EDT [facility] Base Excess, Arterial -0.9 -2.0 - 3.0 mmol/L LAB HEMATOLOGY METHOD 03/23/2025 12:29 AM EDT [facility] Bicarbonate, Calculated, Arterial 24 22 - 26 mmol/L LAB HEMATOLOGY METHOD 03/23/2025 12:29 AM EDT [facility] Hematocrit, Whole Blood 31.2(L) 40.0 - 51.0 % LAB HEMATOLOGY METHOD 03/23/2025 12:29 AM EDT [facility] Sodium, Whole Blood 141 136 - 145 mmol/L LAB HEMATOLOGY METHOD 03/23/2025 12:29 AM EDT [facility] Potassium, Whole Blood 4.2 3.6 - 4.9 mmol/L LAB HEMATOLOGY METHOD 03/23/2025 12:29 AM EDT [facility] Chloride, Whole Blood 110(H) 97 - 107 mmol/L LAB HEMATOLOGY METHOD 03/23/2025 12:29 AM EDT [facility] Glucose, Whole Blood 176(H) 74 - 99 mg/dL LAB HEMATOLOGY METHOD 03/23/2025 12:29 AM EDT [facility] Ionized Calcium, Whole Blood 4.4(L) 4.6 - 5.1 mg/dL LAB HEMATOLOGY METHOD 03/23/2025 12:29 AM EDT [facility] Lactate, Arterial, Whole Blood 2.5(H) 0.5 - 1.6 mmol/L LAB HEMATOLOGY METHOD 03/23/2025 12:29 AM EDT [facility] Blood Arterial blood specimen / Unknown Arterial Puncture / Unknown 03/23/2025 12:03 AM EDT 03/23/2025 12:24 AM EDT us Musa Rosado MD LAB BLOOD ORDERABLES Final R esult Performing Organization Address City/[facility]/ZIP Co de Phone Number [facility] [address] [place] [address] * (ABNORMAL) POCT glucose meter (03/22/2025 10:59 PM EDT) Pathologist [facility] POCT Glucose 181(H) 74 - 99 mg/dL [...] Comment 03/22/2025 11:00 PM EDT [facility] [employer] Supervisor ID Kelly Haynes 03/22/2025 11:00 PM EDT [facility] Device ID [id number] 03/22/2025 11:00 PM EDT [facility] Specimen Type POC Arterial 03/22/2025 11:00 PM EDT [facility] Blood Arterial blood specimen / Unknown 03/22/2025 10:59 PM EDT 03/22/2025 11:00 PM EDT us Musa Rosado MD LAB POINT OF CARE TE ST DOCKED DEVICE UNSOLICITED RESULTS Final Result Performing Organization Address City/[facility] Co de Phone Number [facility] [address] [place] [address] * (ABNORMAL) POCT glucose meter (03/22/2025 10:40 PM EDT) Pathologist [facility] POCT Glucose 184(H) 74 - 99 mg/dL [...] Comment 03/22/2025 10:41 PM EDT [facility] [employer] Supervisor ID Kelly Haynes 03/22/2025 10:41 PM EDT [facility] LAB Device ID [id number] 03/22/2025 10:41 PM EDT [facility]ALTH[facility]ARE LAB Specimen Type POC Arterial 03/22/2025 10:41 PM EDT [facility] Blood Arterial blood specimen / Unknown 03/22/2025 10:40 PM EDT 03/22/2025 10:41 PM EDT Musa Rosado MD LAB POINT OF CARE TE ST DOCKED DEVICE UNSOLICITED RESULTS Final Result Performing Organization Address City/[facility] Co de Phone Number [facility]ARE LAB [address] [place] [id number] * (ABNORMAL) POCT glucose meter (03/22/2025 8:21 [...] Comment 03/22/2025 8:22 PM EDT [facility] [employer] Supervisor ID Kelly Haynes 03/22/2025 8:22 PM EDT HEALTH[facility]ARE LAB Device ID [id number] 03/22/2025 8:22 PM EDT [facility] LAB Specimen Type POC Arterial 03/22/2025 8:22 PM EDT [facility] LAB Blood Arterial blood specimen / Unknown 03/22/2025 8:21 PM EDT 03/22/2025 8:22 PM EDT Musa Rosado MD LAB POINT OF CARE TE ST DOCKED DEVICE UNSOLICITED RESULTS Final Result Performing Organization Address City/[facility]/ZIP Co de Phone Number [facility] [address] [place] [address] * (ABNORMAL) Blood gas, arterial (03/22/2025 8:17 PM EDT) pH, Arterial 7.37 7.35 - 7.45 LAB HEMATOLOGY METHOD 03/22/2025 8:29 PM EDT [facility] pCO2, Arterial 42 32 - 45 mmHg LAB HEMATOLOGY METHOD 03/22/2025 8:29 PM EDT [facility] pO2, Arterial 89 83 - 108 mmHg LAB HEMATOLOGY METHOD 03/22/2025 8:29 PM EDT [facility] SO2, Measured, Arterial 95 94 - 98 % LAB HEMATOLOGY METHOD 03/22/2025 8:29 PM EDT [facility] Base Excess, Arterial -0.9 -2.0 - 3.0 mmol/L LAB HEMATOLOGY METHOD 03/22/2025 8:29 PM EDT [facility] Bicarbonate, Calculated, Arterial 24 22 - 26 mmol/L LAB HEMATOLOGY METHOD 03/22/2025 8:29 PM EDT [facility] Hematocrit, Whole Blood 31.8(L) 40.0 - 51.0 % LAB HEMATOLOGY METHOD 03/22/2025 8:29 PM EDT [facility] Sodium, Whole Blood 141 136 - 145 mmol/L LAB HEMATOLOGY METHOD 03/22/2025 8:29 PM EDT [facility] Potassium, Whole Blood 4.1 3.6 - 4.9 mmol/L LAB HEMATOLOGY METHOD 03/22/2025 8:29 PM EDT [facility] Chloride, Whole Blood 110(H) 97 - 107 mmol/L LAB HEMATOLOGY METHOD 03/22/2025 8:29 PM EDT [facility] Glucose, Whole Blood 217(H) 74 - 99 mg/dL LAB HEMATOLOGY METHOD 03/22/2025 8:29 PM EDT [facility] Ionized Calcium, Whole Blood 4.4(L) 4.6 - 5.1 mg/dL LAB HEMATOLOGY METHOD 03/22/2025 8:29 PM EDT [facility] Lactate, Arterial, Whole Blood 2.1(H) 0.5 - 1.6 mmol/L LAB HEMATOLOGY METHOD 03/22/2025 8:29 PM EDT [facility] Blood Arterial blood specimen / Unknown Arterial Puncture / Unknown 03/22/2025 8:17 PM EDT 03/22/2025 8:27 PM EDT Musa Rosado MD LAB BLOOD ORDERABLES Final R esult Performing Organization Address [facility]/ZIP Co de Phone Number [facility] [address] [place] [address] * (ABNORMAL) Phosphorus (03/22/2025 8:14 PM EDT) Phosphorus, Plasma 1.6(L) 2.5 - 4.5 mg/dL 03/22/2025 8:55 PM EDT [facility] Blood Arterial blood specimen / Unknown Arterial Puncture / Unknown 03/22/2025 8:14 PM EDT 03/22/2025 8:28 PM EDT Musa Rosado MD LAB BLOOD ORDERABLES Final R esult Performing Organization Address [facility]/ZIP Co de Phone Number [facility] [address] [place] [address] * (ABNORMAL) Hematocrit (03/22/2025 8:14 PM EDT) HCT 30.1(L) 40.0 - 51.0 % LAB HEMATOLOGY METHOD 03/22/2025 8:35 PM EDT [facility] Blood Arterial blood specimen / Unknown Arterial Puncture / Unknown 03/22/2025 8:14 PM EDT 03/22/2025 8:28 PM EDT Musa Rosado MD LAB BLOOD ORDERABLES Final R esult Performing Organization Address [facility]/ZIP Co de Phone Number [facility] [address] [place] [address] * (ABNORMAL) Hemoglobin (03/22/2025 8:14 PM EDT) HGB 10.4(L) 13.7 - 17.5 g/dL LAB HEMATOLOGY METHOD 03/22/2025 8:35 PM EDT [facility] Blood Arterial blood specimen / Unknown Arterial Puncture / Unknown 03/22/2025 8:14 PM EDT 03/22/2025 8:28 PM EDT Musa Rosado MD LAB BLOOD ORDERABLES Final R esult [facility] [address] [place] [address] * Potassium, Plasma (03/22/2025 8:14 PM EDT) Potassium, Plasma 4.2 3.6 - 4.9 mmol/L 03/22/2025 8:55 PM EDT [facility] Blood Arterial blood specimen / Unknown Arterial Puncture / Unknown 03/22/2025 8:14 PM EDT 03/22/2025 8:28 PM EDT Musa Rosado MD LAB BLOOD ORDERABLES Final R esult Performing Organization Address City/[facility]/ZIP Co de Phone Number [facility] [address] [place] [address] * (ABNORMAL) Blood gas panel, arterial (03/22/2025 5:44 PM EDT) pH, Arterial 7.36 7.35 - 7.45 LAB HEMATOLOGY METHOD 03/22/2025 5:55 PM EDT [facility] pCO2, Arterial 41 32 - 45 mmHg LAB HEMATOLOGY METHOD 03/22/2025 5:55 PM EDT [facility] pO2, Arterial 107 83 - 108 mmHg LAB HEMATOLOGY METHOD 03/22/2025 5:55 PM EDT [facility] SO2, Measured, Arterial 98 94 - 98 % LAB HEMATOLOGY METHOD 03/22/2025 5:55 PM EDT [facility] Base Excess, Arterial -2.2(L) -2.0 - 3.0 mmol/L LAB HEMATOLOGY METHOD 03/22/2025 5:55 PM EDT [facility] Bicarbonate, Calculated, Arterial 23 22 - 26 mmol/L LAB HEMATOLOGY METHOD 03/22/2025 5:55 PM EDT [facility] Hematocrit, Whole Blood 33.7(L) 40.0 - 51.0 % LAB HEMATOLOGY METHOD 03/22/2025 5:55 PM EDT [facility] Sodium, Whole Blood 142 136 - 145 mmol/L LAB HEMATOLOGY METHOD 03/22/2025 5:55 PM EDT [facility] Potassium, Whole Blood 4.1 3.6 - 4.9 mmol/L LAB HEMATOLOGY METHOD 03/22/2025 5:55 PM EDT [facility] Chloride, Whole Blood 111(H) 97 - 107 mmol/L LAB HEMATOLOGY METHOD 03/22/2025 5:55 PM EDT [facility] Glucose, Whole Blood 206(H) 74 - 99 mg/dL LAB HEMATOLOGY METHOD 03/22/2025 5:55 PM EDT [facility] Ionized Calcium, Whole Blood 4.3(L) 4.6 - 5.1 mg/dL LAB HEMATOLOGY METHOD 03/22/2025 5:55 PM EDT [facility] Lactate, Arterial, Whole Blood 2.3(H) 0.5 - 1.6 mmol/L LAB HEMATOLOGY METHOD 03/22/2025 5:55 PM EDT [facility] Blood Arterial blood specimen / Unknown Arterial Puncture / Unknown 03/22/2025 5:44 PM EDT 03/22/2025 5:53 PM EDT us Musa Rosado MD LAB BLOOD ORDERABLES Final R esult [facility] [address] [place] [address] * XR Chest 1 View (03/22/2025 4:46 [...] above the freddie. Right internal jugular approach [place]-Brea catheter with tip over the proximal right pulmonary artery. Mediastinal drain and bilateral chest tubes in place. Low lung volumes. Pulmonary vascular congestion. No pneumothorax. Interval median sternotomy and CABG. Procedure Note Carmencita Aponte MD - 03/22/2025 CLINICAL INDICATION: Post-Op Cardiac Surgery TECHNIQUE: XR CHEST 1 VIEW COMPARISON: 03/21/2025 FINDINGS: Endotracheal tube tip 6.5 cm above the freddie. Right internal jugularapproach [place]-Brea catheter with tip over the proximal right [...] IMG XR PROCEDURES Final Resu lt * MO CRITICAL CARE, E/M 30-74 MINUTES (03/22/2025 4:38 [...] ECG Atrial Rate 73 BPM MUSE ECG MO Interval 140 ms MUSE ECG QRSD Interval 86 ms MUSE ECG QT Interval 396 ms MUSE ECG QTC Interval 436 ms MUSE ECG P [place] 66 degrees MUSE ECG R [place] 26 degrees MUSE ECG T Wave [place] 52 degrees MUSE ECG Diagnosis Normal sinus rhythm MUSE ECG Diagnosis ST elevation, consider early repolarization , pericarditis, or injury MUSE ECG Diagnosis Need clinical information and correlation MUSE ECG Diagnosis MUSE ECG Diagnosis Confirmed by Jarett Steen ([id number]) on 03/22/2025 7:45:24 PM MUSE ECG 03/22/2025 4:10 PM EDT 03/22/2025 7:45 PM EDT Musa Rosado MD ECG ORDERABLES Final Result MUSE ECG * (ABNORMAL) Blood gas, arterial - Post extubation (03/22/2025 3:52 PM EDT) pH, Arterial 7.35 7.35 - 7.45 LAB HEMATOLOGY METHOD 03/22/2025 4:33 PM EDT [facility] pCO2, Arterial 44 32 - 45 mmHg LAB HEMATOLOGY METHOD 03/22/2025 4:33 PM EDT [facility] pO2, Arterial 127(H) 83 - 108 mmHg LAB HEMATOLOGY METHOD 03/22/2025 4:33 PM EDT [facility] SO2, Measured, Arterial 99(H) 94 - 98 % LAB HEMATOLOGY METHOD 03/22/2025 4:33 PM EDT [facility] Base Excess, Arterial -1.9 -2.0 - 3.0 mmol/L LAB HEMATOLOGY METHOD 03/22/2025 4:33 PM EDT [facility] Bicarbonate, Calculated, Arterial 24 22 - 26 mmol/L LAB HEMATOLOGY METHOD 03/22/2025 4:33 PM EDT [facility] Hematocrit, Whole Blood 35.2(L) 40.0 - 51.0 % LAB HEMATOLOGY METHOD 03/22/2025 4:33 PM EDT [facility] Sodium, Whole Blood 142 136 - 145 mmol/L LAB HEMATOLOGY METHOD 03/22/2025 4:33 PM EDT [facility] Potassium, Whole Blood 3.8 3.6 - 4.9 mmol/L LAB HEMATOLOGY METHOD 03/22/2025 4:33 PM EDT [facility] Chloride, Whole Blood 112(H) 97 - 107 mmol/L LAB HEMATOLOGY METHOD 03/22/2025 4:33 PM EDT [facility] Glucose, Whole Blood 184(H) 74 - 99 mg/dL LAB HEMATOLOGY METHOD 03/22/2025 4:33 PM EDT [facility] Ionized Calcium, Whole Blood 4.4(L) 4.6 - 5.1 mg/dL LAB HEMATOLOGY METHOD 03/22/2025 4:33 PM EDT [facility] Lactate, Arterial, Whole Blood 2.6(H) 0.5 - 1.6 mmol/L LAB HEMATOLOGY METHOD 03/22/2025 4:33 PM EDT [facility] Blood Arterial blood specimen / Unknown Arterial Puncture / Unknown 03/22/2025 3:52 PM EDT 03/22/2025 4:31 PM EDT us Musa Rosado MD LAB BLOOD ORDERABLES Final R esult [facility] [address] [place] [address] * Denise auris Surveillance by PCR (03/22/2025 3:52 PM EDT) Denise auris PCR Result Not Detected Not Detected 03/23/2025 12:49 PM EDT [facility] Swab (Axilla and Groin) Non-blood Collection / Unknown 03/22/2025 3:52 PM EDT 03/22/2025 4:37 PM EDT Narrative [facility] - 03/23/2025 12:49 PM EDT This PCR assay was developed and its performance characteristics determined by [employer] [facility] as appropriate for clinical purposes. This assay has not been cleared or approved by the FDA, but is performed in a CLIA regulated laboratory that is qualified to perform high-complexity testing. Musa Rosado MD LAB MICROBIOLOGY - GENERAL O RDERABLES Final Result Performing Organization Address [facility] de Phone Number [facility] [address] [place] [address] * Multi Drug Resistance Test (03/22/2025 3:52 PM EDT) Culture No growth at day 1 03/24/2025 7:31 AM EDT [facility] Swab (Nares and Lisa Rectal) Non-blood Collection / Unknown 03/22/2025 3:52 PM EDT 03/22/2025 4:37 PM EDT Narrative [facility] - 03/24/2025 7:31 AM EDT This test was developed and its performance characteristics determined by the [facility]. Although the media is FDA-approved, it is not FDA-approved for all specimen types submitted. The FDA has determined that such clearance or approval is not necessary. This test is used for surveillance purposes. It should not be regarded as investigational or for research. The [facility] is certified under the Clinical Laboratory Improvement Amendments of 1988 (CLIA-88) as qualified to perform high complexity clinical laboratory testing. Musa Rosado MD LAB MICROBIOLOGY - GENERAL O RDERABLES Final Result Performing Organization Address [facility] de Phone Number [facility] [address] [place] [address] * APTT (03/22/2025 3:52 PM EDT) aPTT 28 25 - 35 sec LAB COAGULATION METHOD 03/22/2025 5:08 PM EDT [facility] Blood Venous blood specimen / Unknown Venipuncture / Unknown 03/22/2025 3:52 PM EDT 03/22/2025 4:45 PM EDT Musa Rosado MD LAB BLOOD ORDERABLES Final R esult Performing Organization Address [facility]/ZIP Co de Phone Number [facility] [address] [place] [address] * (ABNORMAL) Protime-INR (03/22/2025 3:52 PM EDT) Pathologist [facility] Prothrombin Time 17.0(H) 12.0 - 14.3 sec LAB COAGULATION METHOD 03/22/2025 5:08 PM EDT [facility] INR 1.4(H) 0.9 - 1.1 LAB COAGULATION METHOD 03/22/2025 5:08 PM EDT [facility] Blood Venous blood specimen / Unknown Venipuncture / Unknown 03/22/2025 3:52 PM EDT 03/22/2025 4:45 PM EDT Narrative [facility] - 03/22/2025 5:08 PM EDT OPTIMAL INR RANGES FOR PATIENT ON ORAL ANTICOAGULANT THERAPY Prevention of venous thromboembolism INR 2.0 to 3.0 In patients with heart disease: Atrial fibrillation INR 2.0 to 3.0 Valvular heart disease INR 2.0 to 3.0 Tissue heart valves INR 2.0 to 3.0 Mechanical prosthetic valves INR 2.5 to 3.5 Prevention of recurrent VA INR 2.5 to 3.5 us Musa Rosado MD LAB BLOOD ORDERABLES Final R esult Performing Organization Address [facility] Co de Phone Number [facility] [address] [place] [address] * (ABNORMAL) Phosphorus (03/22/2025 3:52 PM EDT) Pathologist [facility] Phosphorus, Plasma 1.0(LL) 2.5 - 4.5 mg/dL 03/22/2025 5:13 PM EDT [facility] Blood Venous blood specimen / Unknown Venipuncture / Unknown 03/22/2025 3:52 PM EDT 03/22/2025 4:45 PM EDT Musa Rosado MD LAB BLOOD ORDERABLES Final R esult Performing Organization Address City/[facility]/ZIP Co de Phone Number [facility] [address] [place] [address] * (ABNORMAL) Magnesium (03/22/2025 3:52 PM EDT) Magnesium, Plasma 3.1(H) 1.9 - 2.4 mg/dL 03/22/2025 5:13 PM EDT [facility] Blood Venous blood specimen / Unknown Venipuncture / Unknown 03/22/2025 3:52 PM EDT 03/22/2025 4:45 PM EDT us Musa Rosado MD LAB BLOOD ORDERABLES Final R esult [facility] [address] [place] [address] * (ABNORMAL) Basic metabolic panel (03/22/2025 3:52 PM EDT) Glucose, Plasma 188(H) 74 - 99 mg/dL 03/22/2025 5:13 PM EDT [facility] BUN, Plasma 17 7 - 21 mg/dL 03/22/2025 5:13 PM EDT [facility] Creatinine, Plasma 1.19 0.70 - 1.20 mg/dL 03/22/2025 5:13 PM EDT [facility] BUN/Creatinine Ratio 14 03/22/2025 5:13 PM EDT [facility] Sodium, Plasma 142 136 - 145 mmol/L 03/22/2025 5:13 PM EDT [facility] Potassium, Plasma 4.1 3.6 - 4.9 mmol/L 03/22/2025 5:13 PM EDT [facility] Chloride, Plasma 111(H) 97 - 107 mmol/L 03/22/2025 5:13 PM EDT [facility] CO2, Plasma 21(L) 22 - 29 mmol/L 03/22/2025 5:13 PM EDT [facility] Anion Gap 10 6 - 16 mmol/L 03/22/2025 5:13 PM EDT [facility] Total Calcium, Plasma 7.7(L) 8.9 - 10.2 mg/dL 03/22/2025 5:13 PM EDT [facility] eGFRcr 77.7 mL/min/1.7 3m*2 03/22/2025 5:13 PM EDT [facility] Comment:Reported eGFRcr in m L/min/1.73m2 is based the CKD-EPI 2020 equation that does not use a race coefficient. Blood Venous blood specimen / Unknown Venipuncture / Unknown 03/22/2025 3:52 PM EDT 03/22/2025 4:45 PM EDT us Musa Rosado MD LAB BLOOD ORDERABLES Final R esult [facility] [address] [place] [address] * (ABNORMAL) CBC (03/22/2025 3:52 PM EDT) WBC Count 16.63(H) 3.70 - 10.30 10*3/uL LAB HEMATOLOGY METHOD 03/22/2025 4:48 PM EDT [facility] RBC Count 3.77(L) 4.60 - 6.10 10*6/uL LAB HEMATOLOGY METHOD 03/22/2025 4:48 PM EDT [facility] HGB 11.4(L) 13.7 - 17.5 g/dL LAB HEMATOLOGY METHOD 03/22/2025 4:48 PM EDT [facility] HCT 33.7(L) 40.0 - 51.0 % LAB HEMATOLOGY METHOD 03/22/2025 4:48 PM EDT [facility] Platelet Count 159 155 - 369 10*3/uL LAB HEMATOLOGY METHOD 03/22/2025 4:48 PM EDT [facility] MCV 89 79 - 98 fL LAB HEMATOLOGY METHOD 03/22/2025 4:48 PM EDT [facility] MCH 30.2 26.0 - 32.0 pg LAB HEMATOLOGY METHOD 03/22/2025 4:48 PM EDT [facility] MCHC 33.8 30.7 - 35.5 g/dL LAB HEMATOLOGY METHOD 03/22/2025 4:48 PM EDT [facility] RDW 13.4 11.5 - 14.5 % LAB HEMATOLOGY METHOD 03/22/2025 4:48 PM EDT [facility] MPV 11.0 8.8 - 12.5 fL LAB HEMATOLOGY METHOD 03/22/2025 4:48 PM EDT [facility] nRBC 0.0 <=0.0 per 100 WBCs LAB HEMATOLOGY METHOD 03/22/2025 4:48 PM EDT [facility] Blood Venous blood specimen / Unknown Venipuncture / Unknown 03/22/2025 3:52 PM EDT 03/22/2025 4:42 PM EDT us Musa Rosado MD LAB BLOOD ORDERABLES Final R esult [facility] [address] [place] [address] * (ABNORMAL) POCT arterial blood gas gem (03/22/2025 3:29 PM EDT) pH, Arterial 7.36 7.35 - 7.45 03/22/2025 3:41 PM EDT [facility] pCO2, Arterial 42 32 - 45 mm Hg 03/22/2025 3:41 PM EDT [facility] pO2, Arterial 150(H) 83 - 108 mm Hg 03/22/2025 3:41 PM EDT [facility] SO2, Arterial 98 94 - 98 % 03/22/2025 3:41 PM EDT [facility] Base Excess, Arterial -1.7 -2 - 3 mmol/L 03/22/2025 3:41 PM EDT [facility] HCO3, Arterial 23.7 22 - 26 mmol/L 03/22/2025 3:41 PM EDT [facility] Total Hemoglobin, Arterial, Whole Blood 11.2(L) 13.7 - 17.5 g/dL 03/22/2025 3:41 PM EDT [facility] Hematocrit, Arterial 34.0(L) 40 - 51.0 % 03/22/2025 3:41 PM EDT [facility] Sodium, Arterial 141 136 - 145 mmol/L 03/22/2025 3:41 PM EDT [facility] Potassium, Arterial 3.8 3.6 - 4.9 mmol/L 03/22/2025 3:41 PM EDT [facility] Chloride, Whole Blood 109(H) 97 - 107 mmol/L 03/22/2025 3:41 PM EDT [facility] Glucose, Arterial 192(H) 74 - 99 mg/dL 03/22/2025 3:41 PM EDT [facility] Ionized Calcium, Arterial 4.6 4.6 - 5.1 mg/dL 03/22/2025 3:41 PM EDT [facility] Lactate, Arterial 2.0(H) 0.5 - 1.6 mmol/L 03/22/2025 3:41 PM EDT [facility] Body Temperature 37.0 Celsius 03/22/2025 3:41 PM EDT [facility] pH, Temp Corrected, Arterial 7.36 7.35 - 7.45 03/22/2025 3:41 PM EDT [facility] pCO2, Temp Corrected, Arterial 42 32 - 45 mm Hg 03/22/2025 3:41 PM EDT [facility] pO2, Temp Corrected, Arterial 150(H) 83 - 108 mm Hg 03/22/2025 3:41 PM EDT [facility] [employer] ID Ludin Aguiar 03/22/2025 3:41 PM EDT [facility] Blood, Arterial Whole blood specimen / Unknown 03/22/2025 3:29 PM EDT 03/22/2025 3:41 PM EDT Musa Rosado MD LAB POINT OF CARE TE ST DOCKED DEVICE UNSOLICITED RESULTS Final Result [facility] [address] [place] [address] * (ABNORMAL) POCT arterial blood gas gem (03/22/2025 2:44 PM EDT) pH, Arterial 7.33(L) 7.35 - 7.45 03/22/2025 2:51 PM EDT [facility] pCO2, Arterial 46(H) 32 - 45 mm Hg 03/22/2025 2:51 PM EDT [facility] pO2, Arterial 182(H) 83 - 108 mm Hg 03/22/2025 2:51 PM EDT [facility] SO2, Arterial 97 94 - 98 % 03/22/2025 2:51 PM EDT [facility] Base Excess, Arterial -1.8 -2 - 3 mmol/L 03/22/2025 2:51 PM EDT [facility] HCO3, Arterial 24.3 22 - 26 mmol/L 03/22/2025 2:51 PM EDT [facility] Total Hemoglobin, Arterial, Whole Blood 10.8(L) 13.7 - 17.5 g/dL 03/22/2025 2:51 PM EDT [facility] Hematocrit, Arterial 32.0(L) 40 - 51.0 % 03/22/2025 2:51 PM EDT [facility] Sodium, Arterial 141 136 - 145 mmol/L 03/22/2025 2:51 PM EDT [facility] Potassium, Arterial 3.8 3.6 - 4.9 mmol/L 03/22/2025 2:51 PM EDT [facility] Chloride, Whole Blood 111(H) 97 - 107 mmol/L 03/22/2025 2:51 PM EDT [facility] Glucose, Arterial 187(H) 74 - 99 mg/dL 03/22/2025 2:51 PM T [facility] Ionized Calcium, Arterial 4.7 4.6 - 5.1 mg/dL 03/22/2025 2:51 PM T [facility] Lactate, Arterial 1.8(H) 0.5 - 1.6 mmol/L 03/22/2025 2:51 PM EDT [facility] Body Temperature 37.0 Celsius 03/22/2025 2:51 PM T [facility] pH, Temp Corrected, Arterial 7.33(L) 7.35 - 7.45 03/22/2025 2:51 PM T [facility] pCO2, Temp Corrected, Arterial 46(H) 32 - 45 mm Hg 03/22/2025 2:51 PM T [facility] pO2, Temp Corrected, Arterial 182(H) 83 - 108 mm Hg 03/22/2025 2:51 PM EDT [facility] [employer] Supervisor ID Ludin Aguiar 03/22/2025 2:51 PM T [facility] Blood, Arterial Whole blood specimen / Unknown 03/22/2025 2:44 PM EDT 03/22/2025 2:51 PM EDT Musa Rosado MD LAB POINT OF CARE TE ST DOCKED DEVICE UNSOLICITED RESULTS Final Result Performing Organization Address City/[facility]/ZIP Co de Phone Number [facility] [address] [place] [address] * QPLUS (03/22/2025 2:24 PM EDT) Clot Time 125 104 - 166 Seconds 03/22/2025 2:38 PM EDT [facility] Clot Time Ratio 1.0 0.8 [...] - 29.8 hectoPascals 03/22/2025 2:38 PM EDT [facility] Fibrinogen Contribution to Clot Stiffness 1.8 1.0 - 3.7 hectoPascals 03/22/2025 2:38 PM EDT [facility] Heparinase Clot Time 126 103 - 153 Seconds 03/22/2025 2:38 PM EDT [facility] [employer] Supervisor ID Ludin Aguiar 03/22/2025 2:38 PM EDT [facility] Device ID [id number] 03/22/2025 2:38 PM EDT [facility] Whole Blood 03/22/2025 2:24 PM EDT 03/22/2025 2:38 PM EDT Musa Rosado MD LAB POINT OF CARE TE ST DOCKED DEVICE UNSOLICITED RESULTS Final Result [facility] [address] [place] [address] * (ABNORMAL) POCT arterial blood gas gem (03/22/2025 2:10 PM EDT) pH, Arterial 7.34(L) 7.35 - 7.45 03/22/2025 2:13 PM EDT [facility] pCO2, Arterial 43 32 - 45 mm Hg 03/22/2025 2:13 PM EDT [facility] pO2, Arterial 96 83 - 108 mm Hg 03/22/2025 2:13 PM EDT [facility] SO2, Arterial 97 94 - 98 % 03/22/2025 2:13 PM EDT [facility] Base Excess, Arterial -2.5(L) -2 - 3 mmol/L 03/22/2025 2:13 PM EDT [facility] HCO3, Arterial 23.2 22 - 26 mmol/L 03/22/2025 2:13 PM EDT [facility] Total Hemoglobin, Arterial, Whole Blood 9.4(L) 13.7 - 17.5 g/dL 03/22/2025 2:13 PM EDT [facility] Hematocrit, Arterial 28.0(L) 40 - 51.0 % 03/22/2025 2:13 PM EDT [facility] Sodium, Arterial 140 136 - 145 mmol/L 03/22/2025 2:13 PM EDT [facility] Potassium, Arterial 3.7 3.6 - 4.9 mmol/L 03/22/2025 2:13 PM EDT [facility] Chloride, Whole Blood 110(H) 97 - 107 mmol/L 03/22/2025 2:13 PM T [facility] Glucose, Arterial 212(H) 74 - 99 mg/dL 03/22/2025 2:13 PM T [facility] Ionized Calcium, Arterial 4.8 4.6 - 5.1 mg/dL 03/22/2025 2:13 PM EDT [facility] Lactate, Arterial 2.5(H) 0.5 - 1.6 mmol/L 03/22/2025 2:13 PM EDT [facility] Body Temperature 37.0 Celsius 03/22/2025 2:13 PM EDT [facility] pH, Temp Corrected, Arterial 7.34(L) 7.35 - 7.45 03/22/2025 2:13 PM EDT [facility] pCO2, Temp Corrected, Arterial 43 32 - 45 mm Hg 03/22/2025 2:13 PM EDT [facility] pO2, Temp Corrected, Arterial 96 83 - 108 mm Hg 03/22/2025 2:13 PM EDT [facility] [employer] Supervisor ID Temo Mendoza 03/22/2025 2:13 PM [facility]T [facility] Blood, Arterial Whole blood specimen / Unknown 03/22/2025 2:10 PM EDT 03/22/2025 2:13 PM EDT Musa Rosado MD LAB POINT OF CARE TE ST DOCKED DEVICE UNSOLICITED RESULTS Final Result Performing Organization Address [facility] Co de Phone Number [facility] [address] [place] [address] * POCT ACT (03/22/2025 2:04 PM EDT) ACT+ (HIGH RANGE) 115 68 - 600 Seconds 03/22/2025 2:10 PM EDT [facility] [employer] Supervisor ID Selene Cardona 03/22/2025 2:10 PM EDT [facility] ACT Device ID [id number] 03/22/2025 2:10 PM EDT [facility] Comment 03/22/2025 2:10 PM EDT [facility] Comment: ACT performed by staff [...] UNSOLICITED RESULTS Final Result Performing Organization Address City/[facility] Co de Phone Number [facility] [address] LAB [address] [place] [address] * (ABNORMAL) POCT arterial blood gas gem (03/22/2025 1:29 PM EDT) pH, Arterial 7.33(L) 7.35 - 7.45 03/22/2025 1:31 PM EDT [facility] pCO2, Arterial 42 32 - 45 mm Hg 03/22/2025 1:31 PM EDT [facility] pO2, Arterial 371(H) 83 - 108 mm Hg 03/22/2025 1:31 PM T [facility] SO2, Arterial 98 94 - 98 % 03/22/2025 1:31 PM EDT [facility] Base Excess, Arterial -3.6(L) -2 - 3 mmol/L 03/22/2025 1:31 PM T [facility] HCO3, Arterial 22.1 22 - 26 mmol/L 03/22/2025 1:31 PM T [facility] Total Hemoglobin, Arterial, Whole Blood 9.0(L) 13.7 - 17.5 g/dL 03/22/2025 1:31 PM [facility] Hematocrit, Arterial 27.0(L) 40 - 51.0 % 03/22/2025 1:31 PM [facility] Sodium, Arterial 138 136 - 145 mmol/L 03/22/2025 1:31 PM [facility] Potassium, Arterial 4.2 3.6 - 4.9 mmol/L 03/22/2025 1:31 PM [facility] Chloride, Whole Blood 109(H) 97 - 107 mmol/L 03/22/2025 1:31 PM [facility] Glucose, Arterial 272(H) 74 - 99 mg/dL 03/22/2025 1:31 PM [facility] Ionized Calcium, Arterial 4.9 4.6 - 5.1 mg/dL 03/22/2025 1:31 PM [facility] Lactate, Arterial 2.6(H) 0.5 - 1.6 mmol/L 03/22/2025 1:31 PM [facility] Body Temperature 37.0 Celsius 03/22/2025 1:31 PM [facility] pH, Temp Corrected, Arterial 7.33(L) 7.35 - 7.45 03/22/2025 1:31 PM [facility] pCO2, Temp Corrected, Arterial 42 32 - 45 mm Hg 03/22/2025 1:31 PM [facility] pO2, Temp Corrected, Arterial 371(H) 83 - 108 mm Hg 03/22/2025 1:31 PM T [facility] [employer] Supervisor ID Short, Shelley 03/22/2025 1:31 PM EDT [facility] Blood, Arterial Whole blood specimen / Unknown 03/22/2025 1:29 PM EDT 03/22/2025 1:31 PM EDT Musa Rosado MD LAB POINT OF CARE TE ST DOCKED DEVICE UNSOLICITED RESULTS Final Result Performing Organization Address [facility] de Phone Number [facility] [address] [place] [address] * POCT ACT (03/22/2025 1:25 PM EDT) ACT+ (HIGH RANGE) 489 68 - 600 Seconds 03/22/2025 1:34 PM EDT [facility] [employer] Supervisor ID Shelley Bridges 03/22/2025 1:34 PM EDT [facility] ACT Device ID [id number] 03/22/2025 1:34 PM EDT [facility] Comment 03/22/2025 1:34 PM EDT [facility] Comment: ACT performed by staff at [...] UNSOLICITED RESULTS Final Result Performing Organization Address [facility] de Phone Number [facility]ALTH[facility]ARE [facility] [address] LAB [address] [place] [address] * (ABNORMAL) POCT arterial blood gas gem (03/22/2025 12:55 PM EDT) pH, Arterial 7.36 7.35 - 7.45 03/22/2025 12:56 PM EDT [facility] pCO2, Arterial 40 32 - 45 mm Hg 03/22/2025 12:56 PM EDT [facility] pO2, Arterial 179(H) 83 - 108 mm Hg 03/22/2025 12:56 PM EDT [facility] SO2, Arterial 97 94 - 98 % 03/22/2025 12:56 PM EDT [facility] Base Excess, Arterial -2.6(L) -2 - 3 mmol/L 03/22/2025 12:56 PM EDT [facility] HCO3, Arterial 22.6 22 - 26 mmol/L 03/22/2025 12:56 PM EDT [facility] Total Hemoglobin, Arterial, Whole Blood 9.3(L) 13.7 - 17.5 g/dL 03/22/2025 12:56 PM EDT [facility] Hematocrit, Arterial 28.0(L) 40 - 51.0 % 03/22/2025 12:56 PM EDT [facility] Sodium, Arterial 139 136 - 145 mmol/L 03/22/2025 12:56 PM EDT [facility] Potassium, Arterial 4.0 3.6 - 4.9 mmol/L 03/22/2025 12:56 PM EDT [facility] Chloride, Whole Blood 108(H) 97 - 107 mmol/L 03/22/2025 12:56 PM T [facility] Glucose, Arterial 245(H) 74 - 99 mg/dL 03/22/2025 12:56 PM EDT [facility] Ionized Calcium, Arterial 4.8 4.6 - 5.1 mg/dL 03/22/2025 12:56 PM T [facility] Lactate, Arterial 2.4(H) 0.5 - 1.6 mmol/L 03/22/2025 12:56 PM EDT [facility] Body Temperature 37.0 Celsius 03/22/2025 12:56 PM T [facility] pH, Temp Corrected, Arterial 7.36 7.35 - 7.45 03/22/2025 12:56 PM EDT [facility] pCO2, Temp Corrected, Arterial 40 32 - 45 mm Hg 03/22/2025 12:56 PM EDT [facility] pO2, Temp Corrected, Arterial 179(H) 83 - 108 mm Hg 03/22/2025 12:56 PM EDT [facility] [employer] Supervisor ID Selene Cardona 03/22/2025 12:56 PM EDT [facility] Blood, Arterial Whole blood specimen / Unknown 03/22/2025 12:55 PM EDT 03/22/2025 12:56 PM EDT us Musa Rosado MD LAB POINT OF CARE TE ST DOCKED DEVICE UNSOLICITED RESULTS Final Result Performing Organization Address [facility] Co de Phone Number [facility]ARE [facility] [address] [place] [address] * POCT ACT (03/22/2025 12:51 PM EDT) ACT+ (HIGH RANGE) 593 68 - 600 Seconds 03/22/2025 1:02 PM EDT [facility] [employer] Supervisor ID Selene Cardona 03/22/2025 1:02 PM EDT [facility] ACT Device ID [id number] 03/22/2025 1:02 PM EDT [facility] Comment 03/22/2025 1:02 PM EDT [facility] Comment: ACT performed by staff [...] UNSOLICITED RESULTS Final Result Performing Organization Address [facility] de Phone Number [facility]ARE [facility] [address] LAB [address] [place] [address] * (ABNORMAL) POCT arterial blood gas gem (03/22/2025 12:25 PM EDT) pH, Arterial 7.44 7.35 - 7.45 03/22/2025 12:26 PM EDT [facility] pCO2, Arterial 34 32 - 45 mm Hg 03/22/2025 12:26 PM EDT [facility] pO2, Arterial 296(H) 83 - 108 mm Hg 03/22/2025 12:26 PM EDT [facility] SO2, Arterial 97 94 - 98 % 03/22/2025 12:26 PM EDT [facility] Base Excess, Arterial -0.7 -2 - 3 mmol/L 03/22/2025 12:26 PM EDT [facility] HCO3, Arterial 23.1 22 - 26 mmol/L 03/22/2025 12:26 PM EDT [facility] Total Hemoglobin, Arterial, Whole Blood 9.7(L) 13.7 - 17.5 g/dL 03/22/2025 12:26 PM EDT [facility] Hematocrit, Arterial 29.0(L) 40 - 51.0 % 03/22/2025 12:26 PM EDT [facility] Sodium, Arterial 138 136 - 145 mmol/L 03/22/2025 12:26 PM T [facility] Potassium, Arterial 3.4(L) 3.6 - 4.9 mmol/L 03/22/2025 12:[facility] Chloride, Whole Blood 108(H) 97 - 107 mmol/L 03/22/2025 12:26 PM T [facility] Glucose, Arterial 266(H) 74 - 99 mg/dL 03/22/2025 12:26 PM T [facility] Ionized Calcium, Arterial 4.7 4.6 - 5.1 mg/dL 03/22/2025 12:26 PM T [facility] Lactate, Arterial 2.3(H) 0.5 - 1.6 mmol/L 03/22/2025 12:26 PM T [facility] Body Temperature 37.0 Celsius 03/22/2025 12:26 PM T [facility] pH, Temp Corrected, Arterial 7.44 7.35 - 7.45 03/22/2025 12:26 PM T [facility] pCO2, Temp Corrected, Arterial 34 32 - 45 mm Hg 03/22/2025 12:26 PM T [facility] pO2, Temp Corrected, Arterial 296(H) 83 - 108 mm Hg 03/22/2025 12:26 PM EDT [facility] [employer] Supervisor ID Selene Cardona 03/22/2025 12:26 PM T [facility] Blood, Arterial Whole blood specimen / Unknown 03/22/2025 12:25 PM EDT 03/22/2025 12:26 PM EDT us Musa Rosado MD LAB POINT OF CARE TE ST DOCKED DEVICE UNSOLICITED RESULTS Final Result Performing Organization Address City/[facility]/ZIP Co de Phone Number HEALTHCARE [facility] [address] [place] [address] * POCT ACT (03/22/2025 12:21 PM EDT) [facility] ACT+ (HIGH RANGE) 536 68 - 600 Seconds 03/22/2025 12:30 PM EDT [facility] [employer] Supervisor ID Selene Cardona 03/22/2025 12:30 PM EDT [facility] ACT Device ID [id number] 03/22/2025 12:30 PM EDT [facility] Comment 03/22/2025 12:30 PM EDT [facility] Comment: ACT performed by staff [...] UNSOLICITED RESULTS Final Result Performing Organization Address [facility] Co de Phone Number [facility]ARE [facility] [address] LAB [address] [place] [address] * (ABNORMAL) POCT arterial blood gas gem (03/22/2025 11:54 AM EDT) Pathologist [facility] pH, Arterial 7.31(L) 7.35 - 7.45 03/22/2025 11:56 AM EDT [facility] pCO2, Arterial 43 32 - 45 mm Hg 03/22/2025 11:56 AM EDT [facility] pO2, Arterial 234(H) 83 - 108 mm Hg 03/22/2025 11:56 AM EDT [facility] SO2, Arterial 97 94 - 98 % 03/22/2025 11:56 AM EDT [facility]ALTH[facility] Base Excess, Arterial -4.4(L) -2 - 3 mmol/L 03/22/2025 11:56 AM EDT [facility] HCO3, Arterial 21.7(L) 22 - 26 mmol/L 03/22/2025 11:56 AM T [facility] Total Hemoglobin, Arterial, Whole Blood 9.8(L) 13.7 - 17.5 g/dL 03/22/2025 11:56 AM [facility] Hematocrit, Arterial 29.0(L) 40 - 51.0 % 03/22/2025 11:56 AM [facility] Sodium, Arterial 139 136 - 145 mmol/L 03/22/2025 11:56 AM [facility] Potassium, Arterial 2.9(L) 3.6 - 4.9 mmol/L 03/22/2025 11:56 AM [facility] Chloride, Whole Blood 107 97 - 107 mmol/L 03/22/2025 11:56 AM [facility] Glucose, Arterial 243(H) 74 - 99 mg/dL 03/22/2025 11:56 AM [facility] Ionized Calcium, Arterial 4.9 4.6 - 5.1 mg/dL 03/22/2025 11:56 AM [facility] Lactate, Arterial 2.2(H) 0.5 - 1.6 mmol/L 03/22/2025 11:56 AM [facility] Body Temperature 37.0 Celsius 03/22/2025 11:56 AM [facility] pH, Temp Corrected, Arterial 7.31(L) 7.35 - 7.45 03/22/2025 11:56 AM [facility] pCO2, Temp Corrected, Arterial 43 32 - 45 mm Hg 03/22/2025 11:56 AM [facility] pO2, Temp Corrected, Arterial 234(H) 83 - 108 mm Hg 03/22/2025 11:56 AM [facility] [employer] Supervisor ID Selene Cardona 03/22/2025 11:56 AM [facility] Blood, Arterial Whole blood specimen / Unknown 03/22/2025 11:54 AM EDT 03/22/2025 11:56 AM EDT Musa Rosado MD LAB POINT OF CARE TE ST DOCKED DEVICE UNSOLICITED RESULTS Final Result [facility] [address] [place] [address] * POCT ACT (03/22/2025 11:49 AM EDT) [facility] ACT+ (HIGH RANGE) 591 68 - 600 Seconds 03/22/2025 12:30 PM EDT [facility] [employer] Supervisor ID Selene Cardona 03/22/2025 12:30 PM EDT [facility] ACT Device ID [id number] 03/22/2025 12:30 PM EDT [facility] Comment 03/22/2025 12:30 PM EDT [facility] Comment: ACT performed by staff [...] UNSOLICITED RESULTS Final Result Performing Organization Address [facility] Co de Phone Number HEALTHCARE [facility] [address] LAB [address] [place] [address] * (ABNORMAL) POCT arterial blood gas gem (03/22/2025 11:26 AM EDT) [facility] pH, Arterial 7.37 7.35 - 7.45 03/22/2025 11:28 AM EDT [facility]ALTH[facility] pCO2, Arterial 42 32 - 45 mm Hg 03/22/2025 11:28 AM EDT [facility] pO2, Arterial 251(H) 83 - 108 mm Hg 03/22/2025 11:28 AM EDT [facility] SO2, Arterial 98 94 - 98 % 03/22/2025 11:28 AM EDT [facility] Base Excess, Arterial -1.0 -2 - 3 mmol/L 03/22/2025 11:28 AM EDT [facility] HCO3, Arterial 24.3 22 - 26 mmol/L 03/22/2025 11:28 AM EDT [facility] Total Hemoglobin, Arterial, Whole Blood 9.2(L) 13.7 - 17.5 g/dL 03/22/2025 11:28 AM EDT [facility] Hematocrit, Arterial 28.0(L) 40 - 51.0 % 03/22/2025 11:28 AM EDT [facility] Sodium, Arterial 136 136 - 145 mmol/L 03/22/2025 11:28 AM EDT [facility] Potassium, Arterial 3.6 3.6 - 4.9 mmol/L 03/22/2025 11:28 AM EDT [facility] Chloride, Whole Blood 106 97 - 107 mmol/L 03/22/2025 11:28 AM EDT [facility] Glucose, Arterial 248(H) 74 - 99 mg/dL 03/22/2025 11:28 AM EDT [facility] Ionized Calcium, Arterial 4.7 4.6 - 5.1 mg/dL 03/22/2025 11:28 AM EDT [facility] Lactate, Arterial 1.5 0.5 - 1.6 mmol/L 03/22/2025 11:28 AM EDT [facility] Body Temperature 37.0 Celsius 03/22/2025 11:28 AM EDT [facility] pH, Temp Corrected, Arterial 7.37 7.35 - 7.45 03/22/2025 11:28 AM EDT [facility] pCO2, Temp Corrected, Arterial 42 32 - 45 mm Hg 03/22/2025 11:28 AM EDT [facility] pO2, Temp Corrected, Arterial 251(H) 83 - 108 mm Hg 03/22/2025 11:28 AM EDT [facility] [employer] Supervisor ID Selene Cardona 03/22/2025 11:28 AM EDT [facility] Blood, Arterial Whole blood specimen / Unknown 03/22/2025 11:26 AM EDT 03/22/2025 11:28 AM EDT us Musa Rosado MD LAB POINT OF CARE TE ST DOCKED DEVICE UNSOLICITED RESULTS Final Result Performing Organization Address City/State/[facility] Co de Phone Number [facility] [address] [place] [id number] * POCT ACT (03/22/2025 11:22 AM EDT) Pathologist [facility] ACT+ (HIGH RANGE) 534 68 - 600 Seconds 03/22/2025 11:31 AM EDT [facility] [employer] Supervisor ID Selene Cardona 03/22/2025 11:31 AM EDT [facility] ACT Device ID [id number] 03/22/2025 11:31 AM EDT [facility] Comment 03/22/2025 11:31 AM EDT [facility] Comment: ACT performed by staff [...] 11:22 AM EDT 03/22/2025 11:31 AM EDT Musa Rosado MD LAB POINT OF CARE TE ST DOCKED DEVICE UNSOLICITED RESULTS Final Result [facility] [address] LAB [address] [place] [address] * (ABNORMAL) POCT arterial blood gas gem (03/22/2025 10:55 AM EDT) pH, Arterial 7.40 7.35 - 7.45 03/22/2025 10:56 AM EDT [facility] pCO2, Arterial 41 32 - 45 mm Hg 03/22/2025 10:56 AM EDT [facility] pO2, Arterial 183(H) 83 - 108 mm Hg 03/22/2025 10:56 AM EDT [facility] SO2, Arterial 97 94 - 98 % 03/22/2025 10:56 AM EDT [facility] Base Excess, Arterial 0.5 -2 - 3 mmol/L 03/22/2025 10:56 AM EDT [facility] HCO3, Arterial 25.4 22 - 26 mmol/L 03/22/2025 10:56 AM EDT [facility] Total Hemoglobin, Arterial, Whole Blood 12.6(L) 13.7 - 17.5 g/dL 03/22/2025 10:56 AM EDT [facility] Hematocrit, Arterial 38.0(L) 40 - 51.0 % 03/22/2025 10:56 AM EDT [facility] Sodium, Arterial 139 136 - 145 mmol/L 03/22/2025 10:56 AM EDT [facility] Potassium, Arterial 4.1 3.6 - 4.9 mmol/L 03/22/2025 10:56 AM EDT [facility] Chloride, Whole Blood 107 97 - 107 mmol/L 03/22/2025 10:56 AM EDT [facility] Glucose, Arterial 157(H) 74 - 99 mg/dL 03/22/2025 10:56 AM EDT [facility] Ionized Calcium, Arterial 4.7 4.6 - 5.1 mg/dL 03/22/2025 10:56 AM EDT [facility] Lactate, Arterial 1.1 0.5 - 1.6 mmol/L 03/22/2025 10:56 AM EDT [facility] Body Temperature 37.0 Celsius 03/22/2025 10:56 AM EDT [facility] pH, Temp Corrected, Arterial 7.40 7.35 - 7.45 03/22/2025 10:56 AM EDT [facility] pCO2, Temp Corrected, Arterial 41 32 - 45 mm Hg 03/22/2025 10:56 AM EDT [facility] pO2, Temp Corrected, Arterial 183(H) 83 - 108 mm Hg 03/22/2025 10:56 AM EDT [facility] [employer] ID Selene Cardona 03/22/2025 10:56 AM EDT [facility] Blood, Arterial Whole blood specimen / Unknown 03/22/2025 10:55 AM EDT 03/22/2025 10:56 AM EDT us Musa Rosado MD LAB POINT OF CARE TE ST DOCKED DEVICE UNSOLICITED RESULTS Final Result [facility] [address] [place] [address] * POCT ACT (03/22/2025 10:52 AM EDT) ACT+ (HIGH RANGE) 599 68 - 600 Seconds 03/22/2025 11:02 AM EDT [facility] [employer] ID Selene Cardona 03/22/2025 11:02 AM EDT [facility] ACT Device ID [id number] 03/22/2025 11:02 AM EDT [facility] Comment 03/22/2025 11:02 AM EDT [facility] Comment: ACT performed by staff [...] 10:52 AM EDT 03/22/2025 11:02 AM EDT Musa Rosado MD LAB POINT OF CARE TE ST DOCKED DEVICE UNSOLICITED RESULTS Final Result [facility] [address] [facility] [address] [place] [address] * (ABNORMAL) POCT arterial blood gas gem (03/22/2025 10:04 AM EDT) pH, Arterial 7.36 7.35 - 7.45 03/22/2025 10:06 AM EDT [facility] pCO2, Arterial 46(H) 32 - 45 mm Hg 03/22/2025 10:06 AM EDT [facility] pO2, Arterial 178(H) 83 - 108 mm Hg 03/22/2025 10:06 AM EDT [facility] SO2, Arterial 97 94 - 98 % 03/22/2025 10:06 AM EDT [facility] Base Excess, Arterial 0.1 -2 - 3 mmol/L 03/22/2025 10:06 AM EDT [facility] HCO3, Arterial 26.0 22 - 26 mmol/L 03/22/2025 10:06 AM EDT [facility] Total Hemoglobin, Arterial, Whole Blood 13.3(L) 13.7 - 17.5 g/dL 03/22/2025 10:06 AM EDT [facility] Hematocrit, Arterial 40.0 40 - 51.0 % 03/22/2025 10:06 AM EDT [facility] Sodium, Arterial 139 136 - 145 mmol/L 03/22/2025 10:06 AM EDT [facility] Potassium, Arterial 4.1 3.6 - 4.9 mmol/L 03/22/2025 10:06 AM EDT [facility] Chloride, Whole Blood 105 97 - 107 mmol/L 03/22/2025 10:06 AM EDT [facility] Glucose, Arterial 174(H) 74 - 99 mg/dL 03/22/2025 10:06 AM EDT [facility] Ionized Calcium, Arterial 4.9 4.6 - 5.1 mg/dL 03/22/2025 10:06 AM EDT [facility] Lactate, Arterial 1.2 0.5 - 1.6 mmol/L 03/22/2025 10:06 AM EDT [facility] Body Temperature 37.0 Celsius 03/22/2025 10:06 AM EDT [facility] pH, Temp Corrected, Arterial 7.36 7.35 - 7.45 03/22/2025 10:06 AM EDT [facility] pCO2, Temp Corrected, Arterial 46(H) 32 - 45 mm Hg 03/22/2025 10:06 AM EDT [facility] pO2, Temp Corrected, Arterial 178(H) 83 - 108 mm Hg 03/22/2025 10:06 AM EDT [facility] [employer] Supervisor ID Temo Mendoza 03/22/2025 10:06 AM EDT [facility] Blood, Arterial Whole blood specimen / Unknown 03/22/2025 10:04 AM EDT 03/22/2025 10:06 AM EDT Musa Rosado MD LAB POINT OF CARE TE ST DOCKED DEVICE UNSOLICITED RESULTS Final Result [facility] [address] [place] [address] * (ABNORMAL) POCT arterial blood gas gem (03/22/2025 8:01 AM EDT) pH, Arterial 7.44 7.35 - 7.45 03/22/2025 9:00 AM EDT [facility] pCO2, Arterial 39 32 - 45 mm Hg 03/22/2025 9:00 AM [facility] pO2, Arterial 78(L) 83 - 108 mm Hg 03/22/2025 9:00 AM [facility] SO2, Arterial 96 94 - 98 % 03/22/2025 9:00 AM [facility] Base Excess, Arterial 2.3 -2 - 3 mmol/L 03/22/2025 9:00 AM [facility] HCO3, Arterial 26.5(H) 22 - 26 mmol/L 03/22/2025 9:00 AM [facility] Total Hemoglobin, Arterial, Whole Blood 13.8 13.7 - 17.5 g/dL 03/22/2025 9:00 AM [facility] Hematocrit, Arterial 41.0 40 - 51.0 % 03/22/2025 9:00 AM [facility] Sodium, Arterial 139 136 - 145 mmol/L 03/22/2025 9:00 AM [facility] Potassium, Arterial 3.8 3.6 - 4.9 mmol/L 03/22/2025 9:00 AM [facility] Chloride, Whole Blood 104 97 - 107 mmol/L 03/22/2025 9:00 AM [facility] Glucose, Arterial 207(H) 74 - 99 mg/dL 03/22/2025 9:00 AM [facility] Ionized Calcium, Arterial 5.0 4.6 - 5.1 mg/dL 03/22/2025 9:00 AM [facility] Lactate, Arterial 1.1 0.5 - 1.6 mmol/L 03/22/2025 9:00 AM [facility] Body Temperature 37.0 Celsius 03/22/2025 9:00 AM [facility] pH, Temp Corrected, Arterial 7.44 7.35 - 7.45 03/22/2025 9:00 AM [facility] pCO2, Temp Corrected, Arterial 39 32 - 45 mm Hg 03/22/2025 9:00 AM [facility] pO2, Temp Corrected, Arterial 78(L) 83 - 108 mm Hg 03/22/2025 9:00 AM [facility] [employer] Supervisor ID Ludin Aguiar 03/22/2025 9:00 AM [facility] Blood, Arterial Whole blood specimen / Unknown 03/22/2025 8:01 AM EDT 03/22/2025 9:00 AM EDT Musa Rosado MD LAB POINT OF CARE TE ST DOCKED DEVICE UNSOLICITED RESULTS Final Result Performing Organization Address [facility] de Phone Number [facility] [address] [place] [address] * POCT ACT (03/22/2025 7:57 AM EDT) ACT+ (HIGH RANGE) 107 68 - 600 Seconds 03/22/2025 8:02 AM EDT [facility] [employer] Supervisor ID Jean Acevedo 03/22/2025 8:02 AM EDT [facility] ACT Device ID [id number] 03/22/2025 8:02 AM EDT [facility] Comment 03/22/2025 8:02 AM EDT [facility] Comment: ACT performed by staff [...] UNSOLICITED RESULTS Final Result Performing Organization Address [facility] de Phone Number [facility] [address] LAB [address] [place] [address] * APTT (03/22/2025 6:32 AM EDT) aPTT 28 25 - 35 sec LAB COAGULATION METHOD 03/22/2025 6:58 AM EDT [facility] Blood Venous blood specimen / Unknown Venipuncture / Unknown 03/22/2025 6:32 AM EDT 03/22/2025 6:38 AM EDT Zulay M Syed BLIND INSTALLER LAB BLOOD ORDERABLES Final R esult Performing Organization Address City/[facility]/ZIP Co de Phone Number [facility] [address] [place] [address] * Protime-INR (03/22/2025 6:32 AM EDT) Prothrombin Time 13.6 12.0 - 14.3 sec LAB COAGULATION METHOD 03/22/2025 6:58 AM EDT [facility] INR 1.0 0.9 - 1.1 LAB COAGULATION METHOD 03/22/2025 6:58 AM EDT [facility] Blood Venous blood specimen / Unknown Venipuncture / Unknown 03/22/2025 6:32 AM EDT 03/22/2025 6:38 AM EDT Narrative [facility] - 03/22/2025 6:58 AM EDT OPTIMAL INR RANGES FOR PATIENT ON ORAL ANTICOAGULANT THERAPY Prevention of venous thromboembolism INR 2.0 to 3.0 In patients with heart disease: Atrial fibrillation INR 2.0 to 3.0 Valvular heart disease INR 2.0 to 3.0 Tissue heart valves INR 2.0 to 3.0 Mechanical prosthetic valves INR 2.5 to 3.5 Prevention of recurrent VA INR 2.5 to 3.5 Zulay Syed APRN LAB BLOOD ORDERABLES [facility] Performing Organization Address [facility] Co de Phone Number [facility] [address] [place] [address] * (ABNORMAL) Comprehensive metabolic panel (03/22/2025 6:32 AM EDT) Glucose, Plasma 180(H) 74 - 99 mg/dL 03/22/2025 7:10 AM EDT [facility] BUN, Plasma 20 7 - 21 mg/dL 03/22/2025 7:10 AM EDT [facility] Creatinine, Plasma 1.29(H) 0.70 - 1.20 mg/dL 03/22/2025 7:10 AM EDT [facility] BUN/Creatinine Ratio 16 03/22/2025 7:10 AM EDT [facility] Sodium, Plasma 139 136 - 145 mmol/L 03/22/2025 7:10 AM EDT [facility] Potassium, Plasma 3.9 3.6 - 4.9 mmol/L 03/22/2025 7:10 AM EDT [facility] Chloride, Plasma 104 97 - 107 mmol/L 03/22/2025 7:10 AM EDT [facility] CO2, Plasma 24 22 - 29 mmol/L 03/22/2025 7:10 AM EDT [facility] Anion Gap 11 6 - 16 mmol/L 03/22/2025 7:10 AM EDT [facility] Total Calcium, Plasma 9.5 8.9 - 10.2 mg/dL 03/22/2025 7:10 AM EDT [facility] Total Protein 7.2 6.3 - 7.9 g/dL 03/22/2025 7:10 AM EDT [facility] Albumin, Plasma 4.4 3.5 - 5.2 g/dL 03/22/2025 7:10 AM EDT [facility] AST, Plasma 24 10 - 50 U/L 03/22/2025 7:10 AM EDT [facility] Comment:Hemolyzed, result ma y be falsely increased. ALT, Plasma 28 10 - 50 U/L 03/22/2025 7:10 AM EDT [facility] Alkaline Phosphatase, Plasma 41 40 - 115 U/L 03/22/2025 7:10 AM EDT [facility] Total Bilirubin, Plasma 0.4 0.2 - 1.1 mg/dL 03/22/2025 7:10 AM EDT [facility] eGFRcr 70.6 mL/min/1.7 3m*2 03/22/2025 7:10 AM EDT [facility] Comment:Reported eGFRcr in m L/min/1.73m2 is based the CKD-EPI 2020 equation that does not use a race coefficient. Blood Venous blood specimen / Unknown Venipuncture / Unknown 03/22/2025 6:32 AM EDT 03/22/2025 6:38 AM EDT us Zulay Syed APRN LAB BLOOD ORDERABLES Final R esult [facility] [address] [place] [address] * CBC (03/22/2025 6:32 AM EDT) WBC Count 5.45 3.70 - 10.30 10*3/uL LAB HEMATOLOGY METHOD 03/22/2025 7:04 AM EDT [facility] RBC Count 4.78 4.60 - 6.10 10*6/uL LAB HEMATOLOGY METHOD 03/22/2025 7:04 AM EDT [facility] HGB 14.7 13.7 - 17.5 g/dL LAB HEMATOLOGY METHOD 03/22/2025 7:04 AM EDT [facility] HCT 42.5 40.0 - 51.0 % LAB HEMATOLOGY METHOD 03/22/2025 7:04 AM EDT [facility] Platelet Count 183 155 - 369 10*3/uL LAB HEMATOLOGY METHOD 03/22/2025 7:04 AM EDT [facility] MCV 89 79 - 98 fL LAB HEMATOLOGY METHOD 03/22/2025 7:04 AM EDT [facility] MCH 30.8 26.0 - 32.0 pg LAB HEMATOLOGY METHOD 03/22/2025 7:04 AM EDT [facility] MCHC 34.6 30.7 - 35.5 g/dL LAB HEMATOLOGY METHOD 03/22/2025 7:04 AM EDT [facility] RDW 13.3 11.5 - 14.5 % LAB HEMATOLOGY METHOD 03/22/2025 7:04 AM EDT [facility] MPV 11.2 8.8 - 12.5 fL LAB HEMATOLOGY METHOD 03/22/2025 7:04 AM EDT [facility] nRBC 0.0 <=0.0 per 100 WBCs LAB HEMATOLOGY METHOD 03/22/2025 7:04 AM EDT [facility] Blood Venous blood specimen / Unknown Venipuncture / Unknown 03/22/2025 6:32 AM EDT 03/22/2025 6:38 AM EDT us Zulay Syed BLIND INSTALLER LAB BLOOD ORDERABLES Final R esult [facility] [address] [place] [address] * (ABNORMAL) POCT glucose meter (03/22/2025 6:31 [...] Comment 03/22/2025 6:33 AM EDT [facility] [employer] Supervisor ID Beverly Romano 03/22/2025 6:33 AM EDT [facility] Device ID [id number] 03/22/2025 6:33 AM EDT [facility] Specimen Type POC Venous 03/22/2025 6:33 AM EDT [facility] Blood Venous blood specimen / Unknown 03/22/2025 6:31 AM EDT 03/22/2025 6:33 AM EDT Musa Rosado MD LAB POINT OF CARE TE ST DOCKED DEVICE UNSOLICITED RESULTS Final Result [facility] [address] [place] [address] documented in this encounter Visit Diagnoses Diagnosis CAD (coronary artery disease)- Primary Coronary atherosclerosis of unspecified type of vessel, [place] or graft CAD, 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 bypass status CAD, 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 bypass status On mechanically assisted ventilation (CMS/[facility]) Electrolyte abnormality Electrolyte and fluid disorders not elsewhere classified GERD (gastroesophageal reflux disease) Esophageal reflux Hypertension Unspecified essential hypertension Anemia Unspecified anemia HLD (hyperlipidemia) Other and unspecified hyperlipidemia 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) Atrial fibrillation (CMS/HCC) Atrial fibrillation CKD (chronic kidney disease) stage 2, GFR 60-89 ml/min Chronic kidney disease, Stage II (mild) Postoperative pain Other acute postoperative pain Coronary artery disease due to calcified coronary lesion CKD (chronic kidney disease) stage 2, GFR 60-89 ml/min Chronic kidney disease, Stage II (mild) 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 ([facility]) Obesity (BMI 30-39.9) documented in this encounter Admitting Diagnoses Diagnosis CAD (coronary artery disease) Coronary atherosclerosis of unspecified type of vessel, [place] or graft CAD, multiple vessel S/P CABG [...] 10 mg, Rectal, Daily PRN, Starting on Sat 25 at 1050, Until Fri03/30/25 at 1339, Routine, [...] times daily with meals, First dose on [facility] 03/24/25 at 0830, Until Discontinued, Routine Given 03/30/2025 9:01 AM EDT 2 Units Left Lower Abdomen Given 03/29/2025 1:20 PM EDT 4 Units Le ft Upper Arm (Back) Given 03/29/2025 9:21 AM EDT 2 Units Ri ght Upper Arm (Back) insulin lispro (Admelog) injection - Correction - Nighttime Dose 0-3 Units, Subcutaneous, 2 times nightly (2100 & 0300), First dose on [facility] 03/24/25 at 2100, Until Discontinued, Routine [...] hours, First dose (after last modification) on Corinne 03/27/25 at 0930, Until Discontinued, Administer over [...] on 03/26/25 at 0900, Last dose on Fri04/02/25 at [...] 0921 (Given - Provider: Beverly Meeks RN) 09 [...] RN) 09 (Given - Provider: Beverly Meeks RN)211 (Given - Provider: Afshan Roca RN) 0903 (Given - Provider: Gulshan Mendoza RN) fenofibrate (Tricor) tablet 145 mg 145 mg, Oral, Daily, First dose on Fri03/23/25 at 1400, Until Discontinued, Routine 0847 (Given - Provider: Maureen Bang RN) 0921 (Given - Provider: Beverly Meeks RN) 09 [...] Routine 0848 (Given - Provider: Maureen Bang RN)2030 (Given - Provider: Afshan Roca RN) 09 (Given - Provider: Beverly Meeks RN)211 (Given - Provider: Afshan Roca RN) 09 [...] Roca RN)1509 (Given - Provider: Beverly Meeks RN)2114 (Given - Provider: Afshan Roca RN) 0616 (Given - Provider: Afshan Roca RN) insulin glargine-yfgn 100 UNIT/ML injection 30 Units (CANCELED) 30 Units, Subcutaneous, Nightly, First dose (after last modification) on Fri03/27/25 at 2100, Until Discontinued, Routine 2030 (Given - Provider: Afshan Roca RN) insulin [...] Bang, RN)1323 (Given - Provider: Maureen Bang RN)1738 (Given [...] not met - Comment: 2100 BG of 179)212 (Not Given - Provider: Afshan Roca RN [...] Discontinued, Routine 0850 (Given - Provider: Maureen M Doctor, RN)1323 (Given - Provider: Maureen Bang RN)1739 (Given - Provider: Sonia Martell RN) 0923 (Given - Provider: Beverly Meeks RN)1321 (Given - Provider: Beverly Meeks RN) Insulin [...] (Medication Removed - Provider: Afshan Roca RN) 0922 (Medication Applied - Provider: Beverly Meeks RN - Comment: chest)2121 (Medication Removed - Provider: Afshan Roca, LISSY) 0905 (Medication Applied - Provider: Gulshan Mendoza, LISSY)1138 (Due: Medication Removed - Provider: Automatic Discharge [...] RN) 09 (Given - Provider: Beverly Meeks RN)151 (Given - Provider: Beverly Meeks RN)180 (Given - Provider: Beverly Meeks RN)2112 (Given - Provider: Afshan Roca RN) 09 (Given - Provider: Gulshan Mendoza RN) metoprolol tartrate (Lopressor) split tablet 12.5 mg 12.5 mg, Oral, 2 times daily, First dose on Fri03/23/25 at 1330, Until Discontinued, Routine 0847 (Given - Provider: Maureen Bang RN)2028 (Given - Provider: Afshan Roca RN) 09 (Given - Provider: Beverly Meeks RN)2111 (Given - Provider: Afshan Roca RN) 0904 (Given - Provider: Gulshan Mendoza RN) pantoprazole (Protonix) EC tablet 40 mg 40 mg, Oral, Daily, First dose on Fri03/23/25 at 0900, Until Discontinued, Routine 0849 (Given - Provider: Maureen Bang RN) 0921 (Given - Provider: Beverly Meeks RN) 09 (Given - Provider: Gulshan Mendoza RN) polyethylene glycol (Miralax) packet 17 g 17 g, Oral, 2 times daily, First dose (after last modification) on Fri03/23/25 at 0900, Until Discontinued, Routine, Recovery(Phase II-Outpatient)/On Unit(Inpatient) 0849 (Given - Provider: Maureen Bang RN)2029 (Given - Provider: Afshan Roca RN) 0924 (Given - Provider: Beverly Meeks RN)2113 (Given - Provider: Afshan Roca RN) 0905 (Given - Provider: Gulshan Mendoza, LISSY) senna (Senokot) tablet 17.2 mg 17.2 mg, Oral, 2 times daily, First dose (after last modification) on Fri03/23/25 at 0900, Until Discontinued, Routine, Recovery(Phase II-Outpatient)/On Unit(Inpatient) 0849 (Given - Provider: Maureen Bang RN)2029 (Given - Provider: Afshan Roca RN) 0921 (Given - Provider: Beverly Meeks RN)2113 (Given - Provider: Afshan Roca RN) 0904 (Given - Provider: Gulshan Mendoza, LISSY) simethicone [...] Meeks RN)1808 (Given - Provider: Beverly Meeks RN)2114 (Given - Provider: Afshan Roca RN) sodium chloride 0.9 % flush 10 mL 10 mL, Intravenous, Every 12 hours, First dose on Fri03/22/25 at 1730, Until Discontinued, Routine 0501 (Return to Cabinet - Provider: Afshan Roca RN)1733 (Given - Provider: Soina Martell RN) 0454 (Return to Cabinet - [...] Bang RN)1436 (Given - Provider: Maureen Bang RN)203 (Given - Provider: Afshan Roca RN) 0410 (Given - Provider: Afshan Roca RN)0919 (Given - Provider: Beverly Meeks, LISSY)1510 (Given - Provider: Beverly Meeks, LISSY)2113 (Given - Provider: Afshan Roca RN) 0340 [...] - Provider: Afshan Roca RN)1039 (Return to [facility] - Provider: Maureen Bang RN)1745 (Given - Provider: Sonia Martell RN)2235 (Given - Provider: Afshan Roca RN) 0253 (Given - Provider: Afshan M Chanelle, RN) ondansetron (Zofran) injection 4 mg 4 [...] RN)1324 (See Alternative - Provider: Beverly Meeks RN)180 (Given - Provider: Beverly Meeks RN)220 (Given - Provider: Afshan Roca RN) 0207 [...] Roca RN)0901 (See Alternative - Provider: Gulshan M Mendoza, RN) simethicone (Mylicon) chewable tablet 80 [...] documented as of this encounter Care Teams Axle Bearing Polisher Relationship Specialty Start Date End Date David Iverson MD PCP - General 06/06/22 Ludin Gonzalez MD [address] [place] [address] Referring Physician 02/18/25 documented as of this encounter
--- OUTSIDE RECORDS SUMMARY | 2025-04-14 14:04 | XMS_ITS | Encounter Summary ---
Author Organization Healthcare Address [address] [place] [address] Care Team Providers Care Software Implementation Project Manager Name Role Phone David Iverson MD Primary Care Provider [phone] Ludin Gonzalez MD Unavailable [phone] Encounter Details Date Type Department Care Team (Latest Contact Info) Description 04/14/2025 2:04 PM EDT - 04/14/2025 11:59 PM EDT Hospital Encounter [facility] [address], [address] [place] [address] Coronary artery disease involving ramona heart without angina pectoris, unspecified vessel or [...] any time in the past 12 m [facility], were you homeless or living in a jail (including now)? No 03/23/2025 Utilities Answer Date Recorded In the past 12 months has th e [employer], gas, oil, or water company threatened to [...] Description 06/13/2025 11:40 AM EDT Office Visit [facility] Nephrology, Bone & Mineral Metabolism [address], [address] [place] [address] Sonia Medley MD [address] [place] [address] documented as of this encounter Goals Goal Patient Goal Type Associated Problems Recent Progress Patient-Stated? 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 Syed, SHINGLE CARRIER documented as of this encounter Procedures Procedure Name Priority Date/Time Associated Diagnosis Comments XR CHEST 2 VIEWS Routine 04/14/2025 2:20 PM EDT Coronary artery disease involving ramona heart without angina pectoris, unspecified vessel or [...] Visit Diagnoses Diagnosis Coronary artery disease involving ramona heart without angina pectoris, unspecified vessel or [...] documented as of this encounter Care Teams Software Implementation Project Manager Relationship Specialty Start Date End Date David Iverson MD PCP - General 06/06/22 Ludin Gonzalez MD [address] [place] [address] Referring Physician 02/18/25 documented as of this encounter
--- OUTSIDE RECORDS SUMMARY | 2025-04-14 15:40 | XMS_ITS | Encounter Summary ---
Author Organization Healthcare Address [address] [place] [address] Care Team Providers Care Community Service Manager Name Role Phone David Iverson MD Primary Care Provider [phone] Ludin Gonzalez MD Unavailable [phone] Encounter Details Date Type Department Care Team (Late st Contact Info) Description 04/14/2025 3:40 PM EDT [facility] Visit [facility] [address], [address] [place] [address] Musa Rosado MD [address] [place] [address] Coronary artery disease involving nightmute heart without angina pectoris, unspecified vessel or [...] any time in the past 12 m [facility], were you homeless or living in a chcf (including now)? No 03/23/2025 Utilities Answer Date Recorded In the past 12 months has th e [employer], gas, oil, or water company threatened to [...] overload 03/25/2025 Stage 3b chronic kidney disease ([facility]) 03/25/2025 Gout 03/25/2025 Chronic pain 03/25/2025 S/P CABG x 4 03/22/2025 GERD (gastroesophageal reflux disease) 03/22/2025 Poorly 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 ([facility]) 03/22/2025 Postoperative pain 03/22/2025 CAD (coronary artery disease) 02/17/2025 HLD (hyperlipidemia) 02/17/2025 Obesity (BMI 30-39.9) 02/17/2025 Hypertension 01/14/2022 Microalbuminuria 01/14/2022 Type 2 diabetes mellitus with stage 2 chronic kidney disease, with long-term current use of insulin([facility]) 01/14/2022 Medical History: Past Medical History Pertinent [...] present and normoactive x 4 quadrants SKIN: Dwight, warm, and dry. No rash, sores, or [...] 03/22/2025 Coronary artery bypass grafting, endoscopic vein [id number]-zcksusm saphenous. -Vein the ascending aorta the 1st [...] AM EDT Office Visit [facility] Nephrology, Bone & Mineral Metabolism [address], [address] [place] [address] Sonia Medley MD [address] [place] [address] Scheduled Orders Name Type Priority Associated Diagnoses Orde r Schedule ECG Adult ECG Routine Coronary artery disease involving nightmute heart without angina pectoris, unspecified vessel or lesion type Expected: 04/14/2025, Expires: 10/14/2026 documented as of this encounter Goals Goal Patient Goal Type Associated Problems Recent Progress Patient-Stated? 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 ANALYST documented as of this encounter Results * (ABNORMAL) Basic Metabolic Panel, Plasma (04/14/2025 2:28 PM EDT) Glucose, Plasma 249(H) 74 - 99 mg/dL 04/14/2025 5:17 PM EDT [facility] BUN, Plasma 16 7 - 21 mg/dL 04/14/2025 5:17 PM EDT [facility] Creatinine, Plasma 1.26(H) 0.70 - 1.20 mg/dL 04/14/2025 5:17 PM EDT [facility] BUN/Creatinine Ratio 13 04/14/2025 5:17 PM EDT [facility] Sodium, Plasma 139 136 - 145 mmol/L 04/14/2025 5:17 PM EDT [facility] Potassium, Plasma 4.4 3.6 - 4.9 mmol/L 04/14/2025 5:17 PM EDT [facility] Chloride, Plasma 102 97 - 107 mmol/L 04/14/2025 5:17 PM EDT [facility] CO2, Plasma 24 22 - 29 mmol/L 04/14/2025 5:17 PM EDT [facility] Anion Gap 13 6 - 16 mmol/L 04/14/2025 5:17 PM EDT [facility] Total Calcium, Plasma 9.5 8.9 - 10.2 mg/dL 04/14/2025 5:17 PM EDT [facility] eGFRcr 72.6 mL/min/1.7 3m*2 04/14/2025 5:17 PM EDT [facility] Comment:Reported eGFRcr in m L/min/1.73m2 is based the CKD-EPI 2020 equation that does not use a race coefficient. Blood Venous blood specimen / Unknown Venipuncture / Unknown 04/14/2025 2:28 PM EDT 04/14/2025 2:29 PM EDT us Musa Rosado MD LAB BLOOD ORDERABLES Final R esult [facility] [address] [place] [address] * (ABNORMAL) CBC W/O Differential (04/14/2025 2:28 PM EDT) WBC Count 7.72 3.70 - 10.30 10*3/uL LAB HEMATOLOGY METHOD 04/14/2025 4:26 PM EDT [facility] RBC Count 4.26(L) 4.60 - 6.10 10*6/uL LAB HEMATOLOGY METHOD 04/14/2025 4:26 PM EDT [facility] HGB 11.8(L) 13.7 - 17.5 g/dL LAB HEMATOLOGY METHOD 04/14/2025 4:26 PM EDT [facility] HCT 37.9(L) 40.0 - 51.0 % LAB HEMATOLOGY METHOD 04/14/2025 4:26 PM EDT [facility] Platelet Count 373(H) 155 - 369 10*3/uL LAB HEMATOLOGY METHOD 04/14/2025 4:26 PM EDT [facility] MCV 89 79 - 98 fL LAB HEMATOLOGY METHOD 04/14/2025 4:26 PM EDT [facility] MCH 27.7 26.0 - 32.0 pg LAB HEMATOLOGY METHOD 04/14/2025 4:26 PM EDT [facility] MCHC 31.1 30.7 - 35.5 g/dL LAB HEMATOLOGY METHOD 04/14/2025 4:26 PM EDT [facility] RDW 13.8 11.5 - 14.5 % LAB HEMATOLOGY METHOD 04/14/2025 4:26 PM EDT [facility] MPV 11.1 8.8 - 12.5 fL LAB HEMATOLOGY METHOD 04/14/2025 4:26 PM EDT [facility] nRBC 0.0 <=0.0 per 100 WBCs LAB HEMATOLOGY METHOD 04/14/2025 4:26 PM EDT [facility] Blood Venous blood specimen / Unknown Venipuncture / Unknown 04/14/2025 2:28 PM EDT 04/14/2025 2:29 PM EDT us Musa Rosado MD LAB BLOOD ORDERABLES Final R esult [facility] [address] [place] [address] * XR Chest 2 Views (04/14/2025 2:20 [...] Visit Diagnoses Diagnosis Coronary artery disease involving nightmute heart without angina pectoris, unspecified vessel or lesion type- Primary Coronary artery disease involving nightmute heart without angina pectoris, unspecified vessel or [...] documented as of this encounter Care Teams Community Service Manager Relationship Specialty Start Date End Date David Iverson MD PCP - General 06/06/22 Ludin Gonzalez MD [address] [place] [address] Referring Physician 02/18/25 documented as of this encounter
[2025-04-17 21:36] VITALS: BP 153/97; PULSE 95; RESP 22; TEMP 36.7; O2SAT 96; BMI 30.1
--- NOTE | 2025-04-17 21:40 | ECG_ITS ---
APPROVED REPORT Exam: Resting ECG HR:91 bpm ECG Measurements Heart Rate 91 AXES NE 152 P 51 QRSd 94 QRS 24 QT 355 T 74 QTc 404 Conclusion SINUS RHYTHM NONSPECIFIC ST ELEVATION [0.05+ mV ST ELEVATION] BORDERLINE ECG UNCONFIRMED REPORT Normal sinus rhythm. No ST elevation or depression. Electronically signed by : MAXIMINO FISCHER, 04/18/2025 11:13:37
--- OUTSIDE RECORDS SUMMARY | 2025-04-17 21:50 | XMS_ITS | Clinical Summary ---
Author Organization [facility] Address [address] [place] [address] Care Team Providers Care Biometric Screener Name Role Phone David Iverson MD Primary Care Provider [phone] Ludin Gonzalez MD Unavailable [phone] Allergies No known active allergies Medications allopurinol [...] needed for pain. 100 tablet 03/30/20 Active furosemide (Lasix) 40 MG tablet Take 1 tablet by mouth daily for 3 days. 3 tablet 03/31/20 Active Additional Information Patient not taking.Reported on 04/14/2025 methocarbamol (Robaxin) 500 MG tablet Take 2 tablets by mouth 4 times a day for 10 days. 80 tablet 03/30/20 Active Additional Information Patient not taking.Reported on 04/14/2025 naloxone (Narcan) 4 mg/0.1 mL nasal spray 1. Give 1 spray in nostril for no/slow breathing or cannot wake after opioid use 2. Call 911 3. Repeat in other nostril if symptoms continue 1 each 03/30/20 Active metoprolol tartrate (Lopressor) 25 MG tablet Take 0.5 tablets by mouth 2 times a day. 30 tablet 3 03/30/20 25 Active Additional Information Patient taking differently: 50 mgOralDaily, Reported on 04/14/2025 rivaroxaban (Xarelto) 20 MG tablet Take by mouth 1 time each day with dinner. Take with food. Active dilTIAZem (Cardizem) 120 MG immediate release tablet Take 1 tablet by mouth daily. Active atorvastatin (Lipitor) 40 MG tablet Take by mouth 1 (one) time each day. 025 Discontinued(St op Taking at Discharge) hydroCHLOROth iazide (HYDRODiuril) 25 MG tablet Take 1 tablet by mouth daily. 025 Discontinued(St op Taking at Discharge) Insulin Aspart (NOVOLOG FLEXPEN SC) Inject 30 Units under the skin 3 (three) times a day before meals. Discontinued nebivolol (Bystolic) 5 MG tablet Take 1 tablet by mouth daily. 025 Discontinued(St op Taking at Discharge) Easy Touch Pen [place] 31G X 8 MM misc 04/18/20 025 Discontinued(En tered in Error) NovoLOG FLEXPEN 100 UNIT/ML injection pen 04/18/20 23 025 Discontinued(En tered in Error) Lantus SoloStar 100 UNIT/ML injection pen Inject 3-5 Units under the skin at night as needed. 04/21/20 025 Discontinued Jardiance 25 MG Take 1 tablet by mouth daily. 04/16/20 025 Discontinued(St op Taking at Discharge) sildenafil [...] 03/31/20 025 Discontinued(St op Taking at Discharge) docusate sodium 100 MG capsule Take 100 mg by mouth 2 times a day for 10 days. Hold for loose stool 20 capsule 03/30/20 025 Additional Information Patient not taking.Reported on 04/14/2025 senna (Senokot) 8.6 MG tablet Take 2 tablets by mouth daily for 10 days. Hold for loose stools. 20 tablet 03/30/20 025 Additional Information Patient not taking.Reported on 04/14/2025 oxyCODONE (Roxicodone) 10 MG immediate release tablet Take 1 tablet by mouth every 4 hours as needed for severe pain (For pain unrelieved by other interventions) for up to 3 days. 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 Rosado GERD (gastroesophageal reflux disease) Assessment & Plan (03/25/2025 [...] control - Pain Team consulted for IV GRAVITY PROSPECTING OBSERVER - Scheduled tylenol, robaxin, gabapentin - 03/25 - discontinue IV GRAVITY PROSPECTING OBSERVER, Pain to provide PO recommendations Assessment & Plan (03/24/2025 1:09 PM EDT): - Multimodal pain control - Pain Team consulted for IV GRAVITY PROSPECTING OBSERVER - Restart home gabapentin when appropriate Assessment & Plan (03/23/2025 3:01 PM EDT): - Multimodal pain control - Pain Team consulted for IV GRAVITY PROSPECTING OBSERVER - Restart home gabapentin when appropriate Assessment [...] s/p 4vCABG on 03/[address] Rosado HLD (hyperlipidemia) 02/17/2025 Assessment & Plan (03/25/2025 8:24 [...] Resolved Date Acute blood loss anemia 03/25/2025 062 02/2025 Thrombocytopenia 03/25/2025 03/30/2025 Hypocalcemia 03/25/2025 03/30/2025 [...] Encounters Date Type Department Care Team Description 04/14/2025 3:40 PM EDT Office Visit [facility] Cardiothoracic [address], [address] [place] [address] Musa Rosado MD Coronary artery disease involving nightmute heart without angina pectoris, unspecified vessel or lesion type (Primary Dx) 04/14/2025 2:04 PM EDT - 04/14/2025 11:59 PM EDT Hospital Encounter [facility] Radiology [address], [address] [place] [address] Coronary artery disease involving nightmute heart without angina pectoris, unspecified vessel or lesion type Discharge Disposition: Home or Self Care 04/14/2025 Travel 04/13/2025 Telephone [facility] [address], [address] [place] [id number] Sonia Medley MD 04/04/2025 Telephone [facility] [address] [place] [address] Mikayla Leung 03/30/2025 Travel 03/28/2025 Travel 03/27/2025 Travel 03/26/2025 Travel 03/25/2025 Travel 03/24/2025 Travel 03/23/2025 Travel 03/22/2025 7:45 AM EDT - 03/22/2025 5:00 PM EDT Surgery [facility] OPERATING [facility] [address] [place] [address] Musa Rosado MD CABG, 2 OR MORE VESSELS [19992 (CPT )] 03/22/2025 7:39 AM EDT Anesthesia Event [facility] [address] [place] [address] Nati Aranda MD Shelley Bridges A 03/22/2025 5:35 AM EDT - 03/30/2025 11:38 AM EDT Hospital Encounter [facility] [address] [place] [address] Musa Rosado MD CAD, multiple vessel (Primary Dx); S/P CABG x 4 Discharge Disposition: Home or Self Care 03/22/2025 Travel 03/21/2025 1:23 PM EDT - 03/21/2025 11:59 PM EDT Hospital Encounter [facility] Radiology [address], [address] [place] [address] Coronary artery disease due to calcified coronary lesion Discharge Disposition: Home or Self Care 03/21/2025 1:00 PM EDT Office Visit [facility] Cardiothoracic [address], [address] [place] [address] Musa Rosado MD Coronary artery disease involving nightmute heart without angina pectoris, unspecified vessel or lesion type (Primary Dx); Type 2 diabetes mellitus with stage 2 chronic kidney disease, with long-term current use of insulin ([facility]); CKD (chronic kidney disease) stage 2, GFR 60-89 ml/min; Obesity (BMI 30-39.9) 03/21/2025 Travel 03/15/2025 11:30 AM EDT Pre-Admission Testing [facility] Pre-op Clinic [address] [place] [address] 03/15/2025 Travel 03/14/2025 11:40 AM EDT Office Visit [facility] Nephrology, Bone & Mineral Metabolism [address], [address] [place] [address] Sonia Medley MD Stage 3 chronic kidney disease, unspecified whether stage 3a or 3b CKD (CMS/HCC) (Primary Dx) 03/14/2025 Travel 03/10/2025 Telephone [facility] Nephrology, Bone & Mineral Metabolism [address] , [address] [place] [address] [facility] 02/17/2025 11:40 AM EDT Consult [facility] Cardiothoracic [address], [address] [place] [address] Musa Rosado MD Coronary artery disease due to calcified coronary lesion (Primary Dx) 02/17/2025 Orders Only [facility] Cardiothoracic [address], [address] [place] [address] Musa Rosado MD Coronary artery disease involving nightmute heart without angina pectoris, unspecified vessel or lesion type (Primary Dx) 02/17/2025 Travel from Last 3 Months Immunizations Immunization Administration Dates Next Due Hep A, Adult 09/22/2018 [place] COVID-19 Vaccine (Blue Cap) 18+ 03/22/20 21 [...] any time in the past 12 m [facility], were you homeless or living [...] Pulse 85 04/14/2025 2:56 PM EDT Temperature 36.8 C (98.3 F) 03/30/2025 7:40 AM EDT Respiratory Rate 18 03/30/2025 7:40 AM EDT Oxygen Saturation 97% 04/14/2025 2:56 PM EDT Inhaled Oxygen Concentration - - Weight 99.7 kg (219 lb 14.5 oz) 04/14/2025 2:56 PM EDT Height 182.9 cm (6') 04/14/2025 2:56 PM EDT Body Mass Index 29.82 04/14/2025 2:56 PM EDT Plan of Treatment Upcoming Encounters Date Type Department Care Team (Late st Contact Info) Description 06/13/2025 11:40 AM EDT Office Visit [facility] [address], [address] [place] [address] Sonia Medley MD [address] [place] [address] Health Maintenance Due Date Last [...] Years) (1 of 2 - PCV) 2001 [id number] Vaccine (2 - season) 2024 03/22/2021 [facility]-Diabetes: Hemoglobin A1C 05/19/2025 02/17/2025 [facility]-Influenza Vaccine (#1) 2025 [facility]- SDOH Screenings 09/22/2025 [facility]-Adult SDOH Screenings 09/22/2025 03/23/2025 [facility]-Depression Screening 04/14/2026 04/14/2025, 03/06 [facility]-Zoster Vaccines (1 of 2) 01/23/2032 [facility]-Hepatitis A Vaccines Aged Out 09/22/2018 No longer eligible based on patient's age to complete this topic [facility]-Obesity Intervention Completed 025, 03/21/2025, 02/17/2025, Additional history exists [facility]-HIB Vaccines Aged [...] Care Plan Autogenerated Problem No Zulay Syed, CERTIFIED MEDICATION AIDE Procedures Procedure Name Priority Date/Time Associated Diagnosis Comments CBC W/O DIFFERENTIAL Routine 04/14/2025 2:28 PM EDT Coronary artery disease involving nightmute heart without angina pectoris, unspecified vessel or lesion type BASIC METABOLIC PANEL, PLASMA Routine 04/14/2025 2:28 PM EDT Coronary artery disease involving nightmute heart without angina pectoris, unspecified vessel or lesion type XR CHEST 2 VIEWS Routine 04/14/2025 2:20 PM EDT Coronary artery disease involving nightmute heart without angina pectoris, unspecified vessel or lesion type POCT GLUCOSE METER UNSOLICITED RESULTS Routine 03/30/2025 [...] UNSOLICITED RESULTS Routine 03/24/2025 11:44 AM EDT CO CRITICAL CARE, E/M 30-74 MINUTES Routine 03/24/2025 [...] UNSOLICITED RESULTS Routine 03/23/2025 1:57 PM EDT CO CRITICAL CARE, E/M 30-74 MINUTES Routine 03/23/2025 [...] 1 VIEW STAT 03/22/2025 4:46 PM EDT CO CRITICAL CARE, E/M 30-74 MINUTES Routine 03/22/2025 [...] PROCEDURE PLACEHOLDER Routine 03/22/2025 9:51 AM EDT CO INSERT/PLACE FLOW DIRECT CATH Routine 03/22/2025 8:47 AM EDT ANESTHESIA ULTRASOUND GUIDED Routine 03/22/2025 8:47 AM EDT PB ANESTHESIA NON-TIMED PROCEDURE PLACEHOLDER Routine 03/22/2025 8:47 AM EDT CO AN CENTRAL LINE DOUBLE LUMEN Routine 03/22/2025 8:47 AM EDT PB ANESTHESIA NON-TIMED PROCEDURE PLACEHOLDER Routine 03/22/2025 8:47 AM EDT PB ANESTHESIA PLACEHOLDER Routine 03/22/2025 8:03 AM EDT CO AN ELECTIVE ENDOTRACHEAL AIRWAY Routine 03/22/2025 8:03 AM EDT POCT ARTERIAL BLOOD GAS GEM UNSOLICITED RESULTS Routine 03/22/2025 8:01 AM EDT POCT ACT UNSOLICITED RESULTS Routine 03/22/2025 7:57 AM EDT CO CABG, VEIN, THREE 03/22/2025 7:26 AM EDT Coronary artery disease due to calcified coronary lesion CKD (chronic kidney disease) stage 2, GFR 60-89 ml/min 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 ([facility]) Obesity (BMI 30-39.9) APTT Routine 03/22/2025 6:32 [...] whether stage 3a or 3b CKD (CMS/HCC) CBC WITH AUTO DIFFERENTIAL Routine 03/21/2025 1:19 [...] 1:31 PM EDT Coronary artery disease involving nightmute heart without angina pectoris, unspecified vessel or lesion type CBC W/O DIFFERENTIAL Routine 02/17/2025 1:31 PM EDT Coronary artery disease involving nightmute heart without angina pectoris, unspecified vessel or lesion type PROTHROMBIN TIME(PT) / INR Routine 02/17/2025 1:31 PM EDT Coronary artery disease involving nightmute heart without angina pectoris, unspecified vessel or lesion type APTT Routine 02/17/2025 1:31 PM EDT Coronary artery disease involving nightmute heart without angina pectoris, unspecified vessel or lesion type HEMOGLOBIN A1C Routine 02/17/2025 1:31 PM EDT Coronary artery disease involving nightmute heart without angina pectoris, unspecified vessel or lesion type from Last 3 Months Results * (ABNORMAL) CBC W/O Differential (04/14/2025 2:28 PM EDT) Only the most recent of11 resultswithin the time period is included. WBC Count 7.72 3.70 - 10.30 10*3/uL LAB HEMATOLOGY METHOD 04/14/2025 4:26 PM EDT [facility] RBC Count 4.26(L) 4.60 - 6.10 10*6/uL LAB HEMATOLOGY METHOD 04/14/2025 4:26 PM EDT [facility] HGB 11.8(L) 13.7 - 17.5 g/dL LAB HEMATOLOGY METHOD 04/14/2025 4:26 PM EDT [facility] HCT 37.9(L) 40.0 - 51.0 % LAB HEMATOLOGY METHOD 04/14/2025 4:26 PM EDT [facility] Platelet Count 373(H) 155 - 369 10*3/uL LAB HEMATOLOGY METHOD 04/14/2025 4:26 PM EDT [facility] MCV 89 79 - 98 fL LAB HEMATOLOGY METHOD 04/14/2025 4:26 PM EDT [facility] MCH 27.7 26.0 - 32.0 pg LAB HEMATOLOGY METHOD 04/14/2025 4:26 PM EDT [facility] MCHC 31.1 30.7 - 35.5 g/dL LAB HEMATOLOGY METHOD 04/14/2025 4:26 PM EDT [facility] RDW 13.8 11.5 - 14.5 % LAB HEMATOLOGY METHOD 04/14/2025 4:26 PM EDT [facility] MPV 11.1 8.8 - 12.5 fL LAB HEMATOLOGY METHOD 04/14/2025 4:26 PM EDT [facility] nRBC 0.0 <=0.0 per 100 WBCs LAB HEMATOLOGY METHOD 04/14/2025 4:26 PM EDT [facility] Blood Venous blood specimen / Unknown Venipuncture / Unknown 04/14/2025 2:28 PM EDT 04/14/2025 2:29 PM EDT us Musa Rosado MD LAB BLOOD ORDERABLES Final R esult [facility] [address] [place] [address] * (ABNORMAL) Basic Metabolic Panel, Plasma (04/14/2025 2:28 PM EDT) Only the most recent of6 resultswithin the time period is included. Glucose, Plasma 249(H) 74 - 99 mg/dL 04/14/2025 5:17 PM EDT [facility] BUN, Plasma 16 7 - 21 mg/dL 04/14/2025 5:17 PM EDT [facility] Creatinine, Plasma 1.26(H) 0.70 - 1.20 mg/dL 04/14/2025 5:17 PM EDT [facility] BUN/Creatinine Ratio 13 04/14/2025 5:17 PM EDT [facility] Sodium, Plasma 139 136 - 145 mmol/L 04/14/2025 5:17 PM EDT [facility] Potassium, Plasma 4.4 3.6 - 4.9 mmol/L 04/14/2025 5:17 PM EDT [facility] Chloride, Plasma 102 97 - 107 mmol/L 04/14/2025 5:17 PM EDT [facility] CO2, Plasma 24 22 - 29 mmol/L 04/14/2025 5:17 PM EDT [facility] Anion Gap 13 6 - 16 mmol/L 04/14/2025 5:17 PM EDT [facility] Total Calcium, Plasma 9.5 8.9 - 10.2 mg/dL 04/14/2025 5:17 PM EDT [facility] eGFRcr 72.6 mL/min/1.7 3m*2 04/14/2025 5:17 PM EDT [facility] Comment:Reported eGFRcr in m L/min/1.73m2 is based the CKD-EPI 2020 equation that does not use a race coefficient. Blood Venous blood specimen / Unknown Venipuncture / Unknown 04/14/2025 2:28 PM EDT 04/14/2025 2:29 PM EDT us Musa Rosado MD LAB BLOOD ORDERABLES Final R esult [facility] [address] [place] [address] * XR Chest 2 Views (04/14/2025 2:20 PM EDT) Only the most recent of4 resultswithin the time period is included. Anatomical [...] Resu lt * (ABNORMAL) POCT glucose meter (03/30/2025 8:32 AM EDT) Only the most recent of45 resultswithin the time period is included. POCT Glucose 176(H) 74 - 99 mg/dL 03/30/2025 8:34 AM EDT [facility] Comment:Accuracy of a glucos e [...] for testing. Comment 03/30/2025 8:34 AM EDT [facility] Lithopone Charger ID Katlin Cheung 03/30/2025 8:34 AM EDT [facility] Device ID [id number] 03/30/2025 8:34 AM EDT HEALTHCARE LAB Specimen Type POC Capillary 03/30/2025 8:34 AM EDT [facility] Blood Capillary blood specimen / Unknown 03/30/2025 8:32 AM EDT 03/30/2025 8:34 AM EDT Musa Rosado MD LAB POINT OF CARE TE ST DOCKED DEVICE UNSOLICITED RESULTS Final Result Performing Organization Address City/[facility]/ZIP Co de Phone Number [facility] [address] [place] [address] * Magnesium (03/28/2025 4:35 AM EDT) Only the most recent of7 resultswithin the time period is included. Magnesium, Plasma 1.9 1.9 - 2.4 mg/dL 03/28/2025 5:18 AM EDT [facility] Blood Venous blood specimen / Unknown Venipuncture / Unknown 03/28/2025 4:35 AM EDT 03/28/2025 4:42 AM EDT La Nena March APRN LAB BLOOD ORDERABLES Final Res ult Performing Organization Address City/[facility]/ZIP Co de Phone Number [facility] [address] [place] [address] * (ABNORMAL) Comprehensive metabolic panel (03/28/2025 4:35 AM EDT) Only the most recent of6 resultswithin the time period is included. Glucose, Plasma 196(H) 74 - 99 mg/dL 03/28/2025 5:18 AM EDT [facility] BUN, Plasma 20 7 - 21 mg/dL 03/28/2025 5:18 AM EDT [facility] Creatinine, Plasma 1.13 0.70 - 1.20 mg/dL 03/28/2025 5:18 AM EDT [facility] BUN/Creatinine Ratio 18 03/28/2025 5:18 AM EDT [facility] Sodium, Plasma 134(L) 136 - 145 mmol/L 03/28/2025 5:18 AM EDT [facility] Potassium, Plasma 4.2 3.6 - 4.9 mmol/L 03/28/2025 5:18 AM EDT [facility] Chloride, Plasma 102 97 - 107 mmol/L 03/28/2025 5:18 AM EDT [facility] CO2, Plasma 22 22 - 29 mmol/L 03/28/2025 5:18 AM EDT [facility] Anion Gap 10 6 - 16 mmol/L 03/28/2025 5:18 AM EDT [facility] Total Calcium, Plasma 9.1 8.9 - 10.2 mg/dL 03/28/2025 5:18 AM EDT [facility] Total Protein 6.3 6.3 - 7.9 g/dL 03/28/2025 5:18 AM EDT [facility] Albumin, Plasma 3.6 3.5 - 5.2 g/dL 03/28/2025 5:18 AM EDT [facility] AST, Plasma 32 10 - 50 U/L 03/28/2025 5:18 AM EDT [facility] ALT, Plasma 35 10 - 50 U/L 03/28/2025 5:18 AM EDT [facility] Alkaline Phosphatase, Plasma 67 40 - 115 U/L 03/28/2025 5:18 AM EDT [facility] Total Bilirubin, Plasma 0.8 0.2 - 1.1 mg/dL 03/28/2025 5:18 AM EDT [facility] eGFRcr 82.7 mL/min/1.7 3m*2 03/28/2025 5:18 AM EDT [facility] Comment:Reported eGFRcr in m L/min/1.73m2 is based the CKD-EPI 2020 equation that does not use a race coefficient. Blood Venous blood specimen / Unknown Venipuncture / Unknown 03/28/2025 4:35 AM EDT 03/28/2025 4:42 AM EDT us La Nena March APRN LAB BLOOD ORDERABLES Final Res ult [facility] [address] [place] [address] * XR Chest 1 View (03/27/2025 4:58 [...] on 03/27/2025 10:17 AM La Nena March CERTIFIED MEDICATION AIDE IMG XR PROCEDURES Final Result * (ABNORMAL) Lipid panel (03/26/2025 3:50 AM EDT) Cholesterol, Plasma 76 <200 mg/dL 03/26/2025 4:55 AM EDT [facility] Comment: Cholesterol Reference Range (age >17 years): Desirable <200 mg/dL Borderline 200 to 239 mg/dL Undesirable >239 mg/dL HDL 22(L) >=40 mg/dL 03/26/2025 4:55 AM EDT [facility] Comment: HDL Cholesterol Reference Ranges (age >17 years): Female, acceptable > or = 50 mg/dL Male, acceptable > or = 40 mg/dL Triglycerides, Plasma 152(H) <150 mg/dL 03/26/2025 4:55 AM EDT [facility] Comment: Triglyceride Reference Range (age >17 years): Desirable: <150 mg/dL Borderline high: 150 to 199 mg/dL High: 200 to 499 mg/dL Very high: >499 mg/dL Increased risk of pancreatitis: >1000 mg/dL Cholesterol/HDL Ratio 3 03/26/2025 4:55 AM EDT [facility] LDL, Calculated 28 <100 mg/dL 4:55 AM EDT [facility] Comment: LDL Cholesterol Reference [...] 12 hours? No 03/26/2025 4:55 AM EDT [facility] Blood Venous blood specimen / Unknown Venipuncture / Unknown 03/26/2025 3:50 AM EDT 03/26/2025 4:26 AM EDT us La Nena March APRN LAB BLOOD ORDERABLES Final Res ult [facility] [address] [place] [address] * (ABNORMAL) Phosphorus, Plasma (03/25/2025 4:07 AM EDT) Only the most recent of6 resultswithin the time period is included. Phosphorus, Plasma 1.2(L) 2.5 - 4.5 mg/dL 03/25/2025 4:54 AM EDT [facility] Blood Venous blood specimen / Unknown Venipuncture / Unknown 03/25/2025 4:07 AM EDT 03/25/2025 4:20 AM EDT us Musa Rosado MD LAB BLOOD ORDERABLES Final R esult [facility] [address] [place] [address] * CO CRITICAL CARE, E/M 30-74 MINUTES (03/24/2025 11:33 [...] LAB HEMATOLOGY METHOD 03/24/2025 12:18 AM EDT [facility] pCO2, Arterial 43 32 - 45 mmHg LAB HEMATOLOGY METHOD 03/24/2025 12:18 AM EDT [facility] pO2, Arterial 58(LL) 83 - 108 mmHg LAB HEMATOLOGY METHOD 03/24/2025 12:18 AM EDT [facility] SO2, Measured, Arterial 90(L) 94 - 98 % LAB HEMATOLOGY METHOD 03/24/2025 12:18 AM EDT [facility] Base Excess, Arterial 2.9 -2.0 - 3.0 mmol/L LAB HEMATOLOGY METHOD 03/24/2025 12:18 AM EDT [facility] Bicarbonate, Calculated, Arterial 28(H) 22 - 26 mmol/L LAB HEMATOLOGY METHOD 03/24/2025 12:18 AM EDT [facility] Hematocrit, Whole Blood 26.5(L) 40.0 - 51.0 % LAB HEMATOLOGY METHOD 03/24/2025 12:18 AM EDT [facility] Sodium, Whole Blood 138 136 - 145 mmol/L LAB HEMATOLOGY METHOD 03/24/2025 12:18 AM EDT [facility] Potassium, Whole Blood 4.2 3.6 - 4.9 mmol/L LAB HEMATOLOGY METHOD 03/24/2025 12:18 AM EDT [facility] Chloride, Whole Blood 104 97 - 107 mmol/L LAB HEMATOLOGY METHOD 03/24/2025 12:18 AM EDT [facility] Glucose, Whole Blood 161(H) 74 - 99 mg/dL LAB HEMATOLOGY METHOD 03/24/2025 12:18 AM EDT [facility] Ionized Calcium, Whole Blood 4.6 4.6 - 5.1 mg/dL LAB HEMATOLOGY METHOD 03/24/2025 12:18 AM EDT [facility] Lactate, Arterial, Whole Blood 1.1 0.5 - 1.6 mmol/L LAB HEMATOLOGY METHOD 03/24/2025 12:18 AM EDT [facility] Blood Arterial blood specimen / Unknown Arterial Puncture / Unknown 03/24/2025 12:08 AM EDT 03/24/2025 12:14 AM EDT us Musa Rosado MD LAB BLOOD ORDERABLES Final R esult [facility] [address] [place] [address] * CO CRITICAL CARE, E/M 30-74 MINUTES (03/23/2025 12:34 [...] ECG Atrial Rate 77 BPM MUSE ECG CO Interval 150 ms MUSE ECG QRSD Interval 78 ms MUSE ECG QT Interval 366 ms MUSE ECG QTC Interval 414 ms MUSE ECG P [place] 49 degrees MUSE ECG R [place] -7 degrees MUSE ECG T Wave [place] -4 degrees MUSE ECG Diagnosis Normal sinus rhythm MUSE ECG Diagnosis ST elevation, consider early repolarization , pericarditis, or injury MUSE ECG Diagnosis Nonspecific T wave abnormality MUSE ECG Diagnosis Need clinical information and correlation MUSE ECG Diagnosis MUSE ECG Diagnosis Confirmed by Jarett Steen ([id number]) on 03/23/2025 8:36:37 AM MUSE ECG 03/23/2025 4:28 AM EDT 03/23/2025 8:36 AM EDT us Musa Rosado MD ECG ORDERABLES Final Result MUSE ECG * Potassium, Plasma (03/23/2025 3:56 AM EDT) Only the most recent of3 resultswithin the time period is included. Potassium, Plasma 4.2 3.6 - 4.9 mmol/L 03/23/2025 4:40 AM EDT [facility] Blood Arterial blood specimen / Unknown Arterial Puncture / Unknown 03/23/2025 3:56 AM EDT 03/23/2025 4:12 AM EDT us Musa Rosado MD LAB BLOOD ORDERABLES Final R esult [facility] [address] [place] [address] * (ABNORMAL) Blood gas panel with oximetry, mixed venous (03/23/2025 3:53 AM EDT) pH, Mixed Venous 7.37 7.32 - 7.43 LAB HEMATOLOGY METHOD 03/23/2025 4:11 AM EDT [facility] pCO2, Mixed Venous 46 40 - 55 mmHg LAB HEMATOLOGY METHOD 03/23/2025 4:11 AM EDT [facility] pO2, Mixed Venous 34 25 - 40 mmHg LAB HEMATOLOGY METHOD 03/23/2025 4:11 AM EDT [facility] SO2, Measured, Mixed Venous 63(L) 65 - 80 % LAB HEMATOLOGY METHOD 03/23/2025 4:11 AM EDT [facility] Bicarbonate, Calculated, Mixed Venous 26 22 - 26 mmol/L LAB HEMATOLOGY METHOD 03/23/2025 4:11 AM EDT [facility] Base Excess, Mixed Venous 0.4 -2.0 - 3.0 mmol/L LAB HEMATOLOGY METHOD 03/23/2025 4:11 AM EDT [facility] Hematocrit, Whole Blood 30.3(L) 40.0 - 51.0 % LAB HEMATOLOGY METHOD 03/23/2025 4:11 AM EDT [facility] [facility] Sodium, Whole Blood 142 136 - 145 mmol/L LAB HEMATOLOGY METHOD 03/23/2025 4:11 AM EDT [facility] Potassium, Whole Blood 4.0 3.6 - 4.9 mmol/L LAB HEMATOLOGY METHOD 03/23/2025 4:11 AM EDT [facility] Chloride, Whole Blood 109(H) 97 - 107 mmol/L LAB HEMATOLOGY METHOD 03/23/2025 4:11 AM EDT [facility] Ionized Calcium, Whole Blood 4.4(L) 4.6 - 5.1 mg/dL LAB HEMATOLOGY METHOD 03/23/2025 4:11 AM EDT [facility] Glucose, Whole Blood 152(H) 74 - 99 mg/dL LAB HEMATOLOGY METHOD 03/23/2025 4:11 AM EDT [facility] Oxyhemoglobin, Mixed Venous, Whole Blood 61.7 40.0 - 70.0 % LAB HEMATOLOGY METHOD 03/23/2025 4:11 AM EDT [facility] Hemoglobin Reduced, Mixed Venous, Whole Blood 36.7 % LAB HEMATOLOGY METHOD 03/23/2025 4:11 AM EDT [facility] Total Hemoglobin, Mixed Venous, Whole Blood 9.9(L) 13.7 - 17.5 g/dL LAB HEMATOLOGY METHOD 03/23/2025 4:11 AM EDT [facility] Blood Mixed venous blood specimen / Unknown Venipuncture / Unknown 03/23/2025 3:53 AM EDT 03/23/2025 4:09 AM EDT us Musa Rosado MD LAB BLOOD ORDERABLES Final R esult Performing Organization Address City/[facility]/ZIP Co de Phone Number [facility] [address] [place] [address] * (ABNORMAL) Hematocrit (03/23/2025 12:13 AM EDT) Only the most recent of2 resultswithin the time period is included. HCT 29.6(L) 40.0 - 51.0 % LAB HEMATOLOGY METHOD 03/23/2025 12:42 AM EDT [facility] Blood Arterial blood specimen / Unknown Arterial Puncture / Unknown 03/23/2025 12:13 AM EDT 03/23/2025 12:32 AM EDT us Musa Rosado MD LAB BLOOD ORDERABLES Final R esult [facility] [address] [place] [address] * (ABNORMAL) Hemoglobin (03/22/2025 8:14 PM EDT) HGB 10.4(L) 13.7 - 17.5 g/dL LAB HEMATOLOGY METHOD 03/22/2025 8:35 PM EDT [facility] Blood Arterial blood specimen / Unknown Arterial Puncture / Unknown 03/22/2025 8:14 PM EDT 03/22/2025 8:28 PM EDT us Musa Rosado MD LAB BLOOD ORDERABLES Final R esult [facility] [address] [place] [address] * CO CRITICAL CARE, E/M 30-74 MINUTES (03/22/2025 4:38 [...] Detected Not Detected 03/23/2025 12:49 PM EDT [facility] Swab (Axilla and Groin) Non-blood Collection / Unknown 03/22/2025 3:52 PM EDT 03/22/2025 4:37 PM EDT Narrative [facility] - 03/23/2025 12:49 PM EDT This PCR assay was developed and its performance characteristics determined by [facility] as appropriate for clinical purposes. This assay has not been cleared or approved by the FDA, but is performed in a CLIA regulated laboratory that is qualified to perform high-complexity testing. Musa Rosado MD LAB MICROBIOLOGY - GENERAL O RDERABLES Final Result Performing Organization Address [facility] Co de Phone Number [facility] [address] [place] [address] * Multi Drug Resistance Test (03/22/2025 3:52 PM EDT) Culture No growth at day 1 03/24/2025 7:31 AM EDT [facility] Swab (Nares and Lisa Rectal) Non-blood Collection / Unknown 03/22/2025 3:52 PM EDT 03/22/2025 4:37 PM EDT Narrative [facility] - 03/24/2025 7:31 AM EDT This test was developed and its performance characteristics determined by the [facility]. Although the media is FDA-approved, it is not FDA-approved for all specimen types submitted. The FDA has determined that such clearance or approval is not necessary. This test is used for surveillance purposes. It should not be regarded as investigational or for research. The [facility] is certified under the Clinical Laboratory Improvement Amendments of 1988 (CLIA-88) as qualified to perform high complexity clinical laboratory testing. Musa Rosado MD LAB MICROBIOLOGY - GENERAL O RDERABLES Final Result Performing Organization Address [facility] Co de Phone Number [facility] [address] [place] [address] * APTT (03/22/2025 3:52 PM EDT) Only the most recent of4 resultswithin the time period is included. aPTT 28 25 - 35 sec LAB COAGULATION METHOD 03/22/2025 5:08 PM EDT [facility] Blood Venous blood specimen / Unknown Venipuncture / Unknown 03/22/2025 3:52 PM EDT 03/22/2025 4:45 PM EDT Musa Rosado MD LAB BLOOD ORDERABLES Final R esult Performing Organization Address City/[facility] Co de Phone Number [facility] [address] [place] [address] * (ABNORMAL) Protime-INR (03/22/2025 3:52 PM EDT) Only the most recent of4 resultswithin the time period is included. Prothrombin Time 17.0(H) 12.0 - 14.3 sec LAB COAGULATION METHOD 03/22/2025 5:08 PM EDT [facility] INR 1.4(H) 0.9 - 1.1 LAB COAGULATION METHOD 03/22/2025 5:08 PM EDT [facility] Blood Venous blood specimen / Unknown Venipuncture / Unknown 03/22/2025 3:52 PM EDT 03/22/2025 4:45 PM EDT Narrative [facility] - 03/22/2025 5:08 PM EDT OPTIMAL INR RANGES FOR PATIENT ON ORAL ANTICOAGULANT THERAPY Prevention of venous thromboembolism INR 2.0 to 3.0 In patients with heart disease: Atrial fibrillation INR 2.0 to 3.0 Valvular heart disease INR 2.0 to 3.0 Tissue heart valves INR 2.0 to 3.0 Mechanical prosthetic valves INR 2.5 to 3.5 Prevention of recurrent SD INR 2.5 to 3.5 Musa Rosado MD LAB BLOOD ORDERABLES Final R esult Performing Organization Address [facility] Co de Phone Number [facility] [address] [place] [address] * (ABNORMAL) POCT arterial blood gas gem (03/22/2025 3:29 PM EDT) Only the most recent of11 resultswithin the time period is included. pH, Arterial 7.36 7.35 - 7.45 03/22/2025 3:41 PM EDT [facility] pCO2, Arterial 42 32 - 45 mm Hg 03/22/2025 3:41 PM EDT [facility] pO2, Arterial 150(H) 83 - 108 mm Hg 03/22/2025 3:41 PM EDT [facility] SO2, Arterial 98 94 - 98 % 03/22/2025 3:41 PM EDT [facility] Base Excess, Arterial -1.7 -2 - 3 mmol/L 03/22/2025 3:41 PM EDT [facility] HCO3, Arterial 23.7 22 - 26 mmol/L 03/22/2025 3:41 PM EDT [facility] Total Hemoglobin, Arterial, Whole Blood 11.2(L) 13.7 - 17.5 g/dL 03/22/2025 3:41 PM EDT [facility] Hematocrit, Arterial 34.0(L) 40 - 51.0 % 03/22/2025 3:41 PM EDT [facility] Sodium, Arterial 141 136 - 145 mmol/L 03/22/2025 3:41 PM T [facility] Potassium, Arterial 3.8 3.6 - 4.9 mmol/L 03/22/2025 3:41 PM T [facility] Chloride, Whole Blood 109(H) 97 - 107 mmol/L 03/22/2025 3:41 PM T [facility] Glucose, Arterial 192(H) 74 - 99 mg/dL 03/22/2025 3:41 PM T [facility] Ionized Calcium, Arterial 4.6 4.6 - 5.1 mg/dL 03/22/2025 3:41 PM T [facility] Lactate, Arterial 2.0(H) 0.5 - 1.6 mmol/L 03/22/2025 3:41 PM T [facility] Body Temperature 37.0 Celsius 03/22/2025 3:41 PM T [facility] pH, Temp Corrected, Arterial 7.36 7.35 - 7.45 03/22/2025 3:41 PM T [facility] pCO2, Temp Corrected, Arterial 42 32 - 45 mm Hg 03/22/2025 3:41 PM T [facility] pO2, Temp Corrected, Arterial 150(H) 83 - 108 mm Hg 03/22/2025 3:41 PM T [facility] Lithopone Charger ID Ludin Aguiar 03/22/2025 3:41 PM T [facility] Blood, Arterial Whole blood specimen / Unknown 03/22/2025 3:29 PM EDT 03/22/2025 3:41 PM EDT Musa Rosado MD LAB POINT OF CARE TE ST DOCKED DEVICE UNSOLICITED RESULTS Final Result Performing Organization Address City/[facility]/ZIP Co de Phone Number [facility] [address] [place] [address] * QPLUS (03/22/2025 2:24 PM EDT) Clot [...] - 33.2 hectoPascals 03/22/2025 2:38 PM EDT [facility] Platelet Contribution to Clot Stiffnes 16.1 11.9 - 29.8 hectoPascals 03/22/2025 2:38 PM EDT [facility] Fibrinogen Contribution to Clot Stiffness 1.8 1.0 - 3.7 hectoPascals 03/22/2025 2:38 PM EDT [facility] Heparinase Clot Time 126 103 - 153 Seconds 03/22/2025 2:38 PM EDT [facility] Lithopone Charger ID Ludin Aguiar 03/22/2025 2:38 PM EDT [facility] Device ID [id number] 03/22/2025 2:38 PM EDT [facility] Whole Blood 03/22/2025 2:24 PM EDT 03/22/2025 2:38 PM EDT us Musa Rosado MD LAB POINT OF CARE TE ST DOCKED DEVICE UNSOLICITED RESULTS Final Result Performing Organization Address City/[facility]/ZIP Co de Phone Number [facility] [address] [place] [address] * POCT ACT (03/22/2025 2:04 PM EDT) Only the most recent of8 resultswithin the time period is included. ACT+ (HIGH RANGE) 115 68 - 600 Seconds 03/22/2025 2:10 PM EDT [facility] Lithopone Charger ID Selene Cardona 03/22/2025 2:10 PM EDT [facility] ACT Device ID [id number] 03/22/2025 2:10 PM EDT [facility] Comment 03/22/2025 2:10 PM EDT [facility] Comment: ACT performed by [...] UNSOLICITED RESULTS Final Result Performing Organization Address City/State/[facility] Co de Phone Number [facility] [address] [place] [address] * PB ANESTHESIA NON-TIMED PROCEDURE PLACEHOLDER (03/22/2025 [...] ORDERABLES Edite d Result - Final * CO AN CENTRAL LINE DOUBLE LUMEN, PB ANESTHESIA NON-TIMED PROCEDURE PLACEHOLDER, ANESTHESIA ULTRASOUND GUIDED, CO INSERT/PLACE FLOW DIRECT CATH (03/22/2025 8:47 AM [...] Nati Aranda MD Resident: Temo Mendoza MD us Nati Aranda MD ANESTHESIA ORDERABLES Final Result [...] Aranda MD ANESTHESIA ORDERABLES Final Result * CO AN ELECTIVE ENDOTRACHEAL AIRWAY, PB ANESTHESIA PLACEHOLDER [...] LAB HEMATOLOGY METHOD 03/21/2025 3:03 PM EDT [facility] RBC Count 4.75 4.60 - 6.10 10*6/uL LAB HEMATOLOGY METHOD 03/21/2025 3:03 PM EDT [facility] HGB 14.2 13.7 - 17.5 g/dL LAB HEMATOLOGY METHOD 03/21/2025 3:03 PM EDT [facility] HCT 42.9 40.0 - 51.0 % LAB HEMATOLOGY METHOD 03/21/2025 3:03 PM EDT [facility] Platelet Count 214 155 - 369 10*3/uL LAB HEMATOLOGY METHOD 03/21/2025 3:03 PM EDT [facility] MCV 90 79 - 98 fL LAB HEMATOLOGY METHOD 03/21/2025 3:03 PM EDT [facility] MCH 29.9 26.0 - 32.0 pg LAB HEMATOLOGY METHOD 03/21/2025 3:03 PM EDT [facility] MCHC 33.1 30.7 - 35.5 g/dL LAB HEMATOLOGY METHOD 03/21/2025 3:03 PM EDT [facility] RDW 13.2 11.5 - 14.5 % LAB HEMATOLOGY METHOD 03/21/2025 3:03 PM EDT [facility] MPV 11.6 8.8 - 12.5 fL LAB HEMATOLOGY METHOD 03/21/2025 3:03 PM EDT [facility] nRBC 0.0 <=0.0 per 100 WBCs LAB HEMATOLOGY METHOD 03/21/2025 3:03 PM EDT [facility] Differential Type Automated LAB HEMATOLOGY METHOD 03/21/2025 3:03 PM EDT [facility] Neutrophils % 61 % LAB HEMATOLOGY METHOD 03/21/2025 3:03 PM EDT [facility] Lymphocytes % 29 % LAB HEMATOLOGY METHOD 03/21/2025 3:03 PM EDT [facility] Monocytes % 7 % LAB HEMATOLOGY METHOD 03/21/2025 3:03 PM EDT [facility] Eosinophils % 2 % LAB HEMATOLOGY METHOD 03/21/2025 3:03 PM EDT [facility] Basophils % 1 % LAB HEMATOLOGY METHOD 03/21/2025 3:03 PM EDT [facility] Immature Granulocytes % 0 % LAB HEMATOLOGY METHOD 03/21/2025 3:03 PM EDT [facility] Neutrophils Absolute 3.84 1.60 - 6.10 10*3/uL LAB HEMATOLOGY METHOD 03/21/2025 3:03 PM EDT [facility] Lymphocytes Absolute 1.81 1.20 - 3.90 10*3/uL LAB HEMATOLOGY METHOD 03/21/2025 3:03 PM EDT [facility] Monocytes Absolute 0.46 0.30 - 0.90 10*3/uL LAB HEMATOLOGY METHOD 03/21/2025 3:03 PM EDT [facility] Eosinophils Absolute 0.13 0.00 - 0.50 10*3/uL LAB HEMATOLOGY METHOD 03/21/2025 3:03 PM EDT [facility] Basophils Absolute 0.05 0.00 - 0.10 10*3/uL LAB HEMATOLOGY METHOD 03/21/2025 3:03 PM EDT [facility] Immature Granulocytes Absolute 0.02 0.00 - 0.06 10*3/uL LAB HEMATOLOGY METHOD 03/21/2025 3:03 PM EDT [facility] Blood Venous blood specimen / Unknown Venipuncture / Unknown 03/21/2025 1:19 PM EDT 03/21/2025 1:19 PM EDT Narrative [facility] - 03/21/2025 3:03 PM EDT Therapeutic decision making should be based on absolute values, rather than percentages. Zulay Syed APRN LAB BLOOD ORDERABLES Final R esult [facility] [address] [place] [address] * Type and screen (03/21/2025 1:19 PM EDT) ABO/Rh A Positive 03/21/2025 1:09 PM EDT [facility] Antibody Screen Negative 03/21/2025 1:09 PM EDT [facility] Specimen Expiration 03/24/2025 23:59 03/21/2025 1:09 PM EDT BLO[facility]ANK Blood Venous blood specimen / Unknown Venipuncture / Unknown 03/21/2025 1:19 PM EDT 03/21/2025 1:19 PM EDT Zulay Syed APRN LAB BLOOD BANK TEST ORDERABL ES Final Result BLOOD BANK [address] [place] [address], * Protein, Random, Urine with Creatinine (03/21/2025 1:15 PM EDT) Protein, Urine <6 mg/dL 03/21/2025 2:55 PM EDT [facility] Creatinine, Urine 77 mg/dL 03/21/2025 2:55 PM EDT [facility] Protein/Creatin ine Ratio 03/21/2025 2:55 PM EDT [facility] Urine Urine specimen obtained by clean catch procedure / Unknown Non-blood Collection / Unknown 03/21/2025 1:15 PM EDT 03/21/2025 1:15 PM EDT Sonia Medley MD LAB URINE ORDERABLES Fin al Result Performing Organization Address [facility] Co de Phone Number [facility] [address] [place] [address] * (ABNORMAL) Urinalysis with reflex microscopic (Culture NOT Included) (03/21/2025 1:15 PM EDT) Color, Urine Yellow LAB URINALYSIS - AUTOMATED METHOD 03/21/2025 2:42 PM EDT [facility] Clarity, Urine Clear LAB URINALYSIS - AUTOMATED METHOD 03/21/2025 2:42 PM EDT [facility] Spec [place], Urine 1.023 1.005 - 1.030 LAB URINALYSIS - AUTOMATED METHOD 03/21/2025 2:42 PM EDT [facility] pH, Urine 7.0 5.0 - 8.0 LAB URINALYSIS - AUTOMATED METHOD 03/21/2025 2:42 PM EDT [facility] Protein, Urine Negative Negative mg/dL LAB URINALYSIS - AUTOMATED METHOD 03/21/2025 2:42 PM EDT [facility] Glucose, Urine >=1000(A) Negative mg/dL LAB URINALYSIS - AUTOMATED METHOD 03/21/2025 2:42 PM EDT [facility] Ketones, Urine Negative Negative mg/dL LAB URINALYSIS - AUTOMATED METHOD 03/21/2025 2:42 PM EDT [facility] Blood, Urine Negative Negative LAB URINALYSIS - AUTOMATED METHOD 03/21/2025 2:42 PM EDT [facility] Bilirubin, Urine Negative Negative LAB URINALYSIS - AUTOMATED METHOD 03/21/2025 2:42 PM EDT [facility] Urobilinogen, Urine 1.0 0.2 to 1.0 mg/dL LAB URINALYSIS - AUTOMATED METHOD 03/21/2025 2:42 PM EDT [facility] Leukocytes, Urine Negative Negative LAB URINALYSIS - AUTOMATED METHOD 03/21/2025 2:42 PM EDT [facility] Nitrite, Urine Negative Negative LAB URINALYSIS - AUTOMATED METHOD 03/21/2025 2:42 PM EDT [facility] Urine Urine specimen obtained by clean catch procedure / Unknown Non-blood Collection / Unknown 03/21/2025 1:15 PM EDT 03/21/2025 1:15 PM EDT Sonia Medley MD LAB URINE ORDERABLES Fin al Result [facility] [address] [place] [address] * (ABNORMAL) Hemoglobin A1c (02/17/2025 1:31 PM EDT) Hemoglobin A1c 7.2(H) <5.7 % 02/17/2025 4:41 PM EDT [facility] Blood Venous blood specimen / Unknown Venipuncture / Unknown 02/17/2025 1:31 PM EDT 02/17/2025 1:31 PM EDT Narrative [facility] - 02/17/2025 4:41 PM EDT HA1C Interpretive Data: Diagnosis of Diabetes: Diabetic > or = 6.5% Pre-diabetic 5.7 to 6.4% Non-diabetic < or = 5.6% Glycemic Targets for Type I and Type II Diabetics: Non- Adults <7.0% Adults <6.0% Children and Adolescents <7.5% Source: [place] [employer]. Standards of medical care in diabetes,2017. Diabetes Care.2017:40 (suppl 1):S1-S135. us Musa oRsado MD LAB BLOOD ORDERABLES Final R esult [facility] [address] [place] [address] from Last 3 Months Additional Health Concerns Active Problems Noted Date Diagnosed Date Autogenerated Problem 02/17/2025 Insurance [employer] MEDICARE Advance Directives * Full Code (Latest Code Status on File) Date Activated Date Inactivated Comments 03/22/2025 3:49 PM 03/30/2025 1:44 PM Question Answer Comments Patient has decision-making capacity? Yes Care Teams Biometric Screener Relationship Specialty Start Date End Date David Iverson MD PCP - General 06/06/22 Ludin Gonzalez MD [address] [place] [address] Referring Physician 02/18/25
--- OUTSIDE RECORDS SUMMARY | 2025-04-17 21:50 | XMS_ITS | Encounter Summary ---
Author Organization Healthcare Address [address] [place] [address] Care Team Providers Care Movers Name Role Phone David Iverson MD Primary Care Provider [phone] Ludin Gonzalez MD Unavailable [phone] Encounter Details Date Type Department Care Team [...] time in the past 12 m [facility], were you homeless or living [...] Description 06/13/2025 11:40 AM EDT Office Visit [facility] Nephrology, Bone & Mineral Metabolism [address], [address] [place] [address] Sonia Medley MD [address] [place] [address] documented as of this encounter Goals Goal Patient Goal Type Associated Problems Recent Progress Patient-Stated? 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 Syed, SPORTS ANCHOR documented as of this encounter Visit Diagnoses [...] documented as of this encounter Care Teams Movers Relationship Specialty Start Date End Date David Iverson MD PCP - General 06/06/22 Ludin Gonzalez MD [address] [place] [address] Referring Physician 02/18/25 documented as of this encounter
--- OUTSIDE RECORDS SUMMARY | 2025-04-17 21:51 | XMS_ITS | Encounter Summary ---
Author Organization Healthcare Address [address] [place] [address] Care Team Providers Care Center Director Lead Teacher Name Role Phone David Iverson MD Primary Care Provider [phone] Ludin Gonzalez MD Unavailable [phone] Encounter Details Date Type Department Care Team [...] Description 06/13/2025 11:40 AM EDT Office Visit [facility] Nephrology, Bone & Mineral Metabolism [address], [address] [place] [address] Sonia Medley MD [address] [place] [address] documented as of this encounter Goals Goal Patient Goal Type Associated Problems Recent Progress Patient-Stated? 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 Syed, LOLLYPOP MACHINE OPERATOR documented as of this encounter [...] documented as of this encounter Care Teams Center Director Lead Teacher Relationship Specialty Start Date End Date David Iverson MD PCP - General 06/06/22 Ludin Gonzalez MD [address] [place] [address] Referring Physician 02/18/25 documented as of this encounter
--- OUTSIDE RECORDS SUMMARY | 2025-04-17 21:51 | XMS_ITS | Encounter Summary ---
Author Organization Healthcare Address [address] [place] [address] Care Team Providers Care Oyster Shucker Name Role Phone David Iverson MD Primary Care Provider [phone] Ludin Gonzalez MD Unavailable [phone] Encounter Details Date Type Department Care Team [...] were you homeless or living in a correction (including now)? No 03/23/2025 Utilities Answer Date [...] 11:40 AM EDT Office Visit [facility] Nephrology, Bone & Mineral Metabolism [address], [address] [place] [address] Sonia Medley MD [address] [place] [address] documented as of this encounter [...] documented as of this encounter Care Teams Oyster Shucker Relationship Specialty Start Date End Date David Iverson MD PCP - General 06/06/22 Ludin Gonzalez MD [address] [place] [address] Referring Physician 02/18/25 documented as of this encounter
--- OUTSIDE RECORDS SUMMARY | 2025-04-17 21:51 | XMS_ITS | Encounter Summary ---
Author Organization Healthcare Address [address] [place] [id number] Care Team Providers Care Jute Bag Sewer Name Role Phone David Iverson MD Primary Care Provider [phone] Ludin Gonzalez MD Unavailable [phone] Encounter Details Date Type Department Care Team [...] Description 06/13/2025 11:40 AM EDT Office Visit [facility] Nephrology, Bone & Mineral Metabolism [address], [address] [place] [address] Sonia Medley MD [address] [place] [address] documented as of this encounter Goals Goal Patient Goal Type Associated Problems Recent Progress Patient-Stated? 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 Syed, REACH TRUCK OPERATOR documented as of this encounter Visit [...] documented as of this encounter Care Teams Jute Bag Sewer Relationship Specialty Start Date End Date David Iverson MD PCP - General 06/06/22 Ludin Gonzalez MD [address] [place] [address] Referring Physician 02/18/25 documented as of this encounter
--- OUTSIDE RECORDS SUMMARY | 2025-04-17 21:51 | XMS_ITS | Encounter Summary ---
Author Organization Healthcare Address [address] [place] [address] Care Team Providers Care Catalogue And Special Products Manager Name Role Phone David Iverson MD Primary Care Provider [phone] Ludin Gonzalez MD Unavailable [phone] Encounter Details Date Type Department Care Team [...] any time in the past 12 m [facility], were you homeless or [...] Description 06/13/2025 11:40 AM EDT Office Visit [facility] Nephrology, Bone & Mineral Metabolism [address], [address] [place] [address] Sonia Medley MD [address] [place] [address] documented as of this encounter Goals Goal Patient Goal Type Associated Problems Recent Progress Patient-Stated? 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 Syed, TELEPHONE ORDER SUPERVISOR documented as of this encounter Visit Diagnoses [...] documented as of this encounter Care Teams Catalogue And Special Products Manager Relationship Specialty Start Date End Date David Iverson MD PCP - General 06/06/22 Ludin Gonzalez MD [address] [place] [address] Referring Physician 02/18/25 documented as of this encounter
--- OUTSIDE RECORDS SUMMARY | 2025-04-17 21:51 | XMS_ITS | Encounter Summary ---
Author Organization Healthcare Address [address] [place] [address] Care Team Providers Care Escrow Secretary Name Role Phone David Iverson MD Primary Care Provider [phone] Ludin Gonzalez MD Unavailable Encounter Details Date Type Department Care Team [...] any time in the past 12 m [facility], were you homeless or living in a fci (including now)? No 03/23/2025 Utilities Answer Date [...] Description 06/13/2025 11:40 AM EDT Office Visit [facility] Nephrology, Bone & Mineral Metabolism [address] [facility], [address] [place] [address] Sonia Medley MD [address] [place] [address] documented as of this encounter Goals Goal Patient Goal Type Associated Problems Recent Progress Patient-Stated? 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 Syed, STOCK PREPARATION OPERATOR documented as of this encounter Visit [...] documented as of this encounter Care Teams Escrow Secretary Relationship Specialty Start Date End Date David Iverson MD PCP - General 06/06/22 Ludin Gonzalez MD [facility] [place] [address] Referring Physician 02/18/25 documented as of this encounter
--- OUTSIDE RECORDS SUMMARY | 2025-04-17 21:51 | XMS_ITS | Encounter Summary ---
Author Organization Healthcare Address [address] [place] [address] Care Team Providers Care Capacity Management Specialist Name Role Phone David Iverson MD Primary Care Provider [phone] Ludin Gonzalez MD Unavailable [phone] Encounter Details Date Type Department Care Team ([facility] Contact Info) Description 04/04/2025 Telephone PAV A Inpatient [address] [place] [id number] Mikayla Leung CV TELE-PROGRESSIVE Social History Tobacco [...] any time in the past 12 m [facility], were you homeless or living [...] 06/13/2025 11:40 AM EDT Office Visit [facility] Nephrology, Bone & Mineral Metabolism [address] [facility], [address] [place] [address] Sonia Medley MD [address] [place] [address] documented as of this encounter Goals Goal Patient Goal Type Associated Problems Recent Progress Patient-Stated? 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 Syed, POOL HAND documented as of this encounter Visit Diagnoses [...] documented as of this encounter Care Teams Capacity Management Specialist Relationship Specialty Start Date End Date David Iverson MD PCP - General 06/06/22 Ludin Gonzalez MD [address] [place] [address] Referring Physician 02/18/25 documented as of this encounter
--- OUTSIDE RECORDS SUMMARY | 2025-04-17 21:52 | XMS_ITS | Encounter Summary ---
Author Organization Healthcare Address [address] [place] [address] Care Team Providers Care Tribal Council Member Name Role Phone David Iverson MD Primary Care Provider [phone] Ludin Gonzalez MD Unavailable [phone] Encounter Details Date Type Department Care Team [...] Description 06/13/2025 11:40 AM EDT Office Visit [facility] Nephrology, Bone & Mineral Metabolism [address] [facility], [address] [place] [address] Sonia Medley MD [address] [place] [address] documented as of this encounter Goals Goal Patient Goal Type Associated Problems Recent Progress Patient-Stated? 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 Syed, HEAT SEALING MACHINE OPERATOR documented as of this encounter [...] documented as of this encounter Care Teams Tribal Council Member Relationship Specialty Start Date End Date David Iverson MD PCP - General 06/06/22 Ludin Gonzalez MD [address] [place] [address] Referring Physician 02/18/25 documented as of this encounter
--- OUTSIDE RECORDS SUMMARY | 2025-04-17 21:52 | XMS_ITS | Encounter Summary ---
Author Organization Healthcare Address [address] [place] [address] Care Team Providers Care Associate Genetics Professor Name Role Phone David Iverson MD Primary Care Provider [phone] Ludin Gonzalez MD Unavailable [phone] Encounter Details Date Type Department Care Team [...] any time in the past 12 m [facility], were you homeless or living in [...] Month) No 03/24/2025 8:00 PM JARADT Marlen oRoney RN 6. Suicidal Behavior (Lifetime) No 03/24/2025 8:00 PM EDT Marlen Rooney, RN documented as of this encounter Plan of Treatment Upcoming Encounters Date Type Department Care Team (Late st Contact Info) Description 06/13/2025 11:40 AM EDT Office Visit [facility] Nephrology, Bone & Mineral Metabolism [address], [address] [place] [address] Sonia Medley MD [address] [place] [address] documented as of this encounter Goals Goal Patient Goal Type Associated Problems Recent Progress Patient-Stated? 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 Syed, MANAGER CONFIGURATION documented as of this encounter Visit Diagnoses [...] documented as of this encounter Care Teams Associate Genetics Professor Relationship Specialty Start Date End Date David Iverson MD PCP - General 06/06/22 Ludin Gonzalez MD [address] [place] [address] Referring Physician 02/18/25 documented as of this encounter
--- OUTSIDE RECORDS SUMMARY | 2025-04-17 21:52 | XMS_ITS | Encounter Summary ---
Author Organization Healthcare Address [address] [place] [address] Care Team Providers Care Herbicide Sprayer Name Role Phone David Iverson MD Primary Care Provider [phone] Ludin Gonzalez MD Unavailable [phone] Encounter Details Date Type Department Care Team [...] any time in the past 12 m [facility], were you homeless or living [...] Description 06/13/2025 11:40 AM EDT Office Visit [facility] Nephrology, Bone & Mineral Metabolism [address] [facility], [address] [place] [address] Sonia Medley MD [address] [place] [address] documented as of this [...] documented as of this encounter Care Teams Herbicide Sprayer Relationship Specialty Start Date End Date David Iverson MD PCP - General 06/06/22 Ludin Gonzalez MD [address] [place] [address] Referring Physician 02/18/25 documented as of this encounter
--- OUTSIDE RECORDS SUMMARY | 2025-04-17 21:53 | XMS_ITS | Encounter Summary ---
Author Organization Healthcare Address [address] [place] [address] Care Team Providers Care Elementary Spanish Teacher Name Role Phone David Iverson MD Primary Care Provider [phone] Ludin Gonzalez MD Unavailable [phone] Encounter Details Date Type Department Care Team [...] 06/13/2025 11:40 AM EDT Office Visit [facility] Nephrology, Bone & Mineral Metabolism [address] [facility], [address] [place] [address] Sonia Medley MD [address] [place] [address] documented as of this encounter [...] documented as of this encounter Care Teams Elementary Spanish Teacher Relationship Specialty Start Date End Date David Iverson MD PCP - General 06/06/22 Ludin Gonzalez MD [address] [place] [address] Referring Physician 02/18/25 documented as of this encounter
--- OUTSIDE RECORDS SUMMARY | 2025-04-17 21:53 | XMS_ITS | Encounter Summary ---
Author Organization Healthcare Address [address] [place] [address] Care Team Providers Care Interactive Multimedia Designer Name Role Phone David Iverson MD Primary Care Provider [phone] Ludin Gonzalez MD Unavailable [phone] Encounter Details Date Type Department Care Team (Latest Contact Info) Description 04/14/2025 Travel Social History Tobacco Use Types Packs/Day [...] time in the past 12 m [facility], were you homeless or living [...] things Not at all 04/14/2025 3:05 PM JARADT Stephanie Corrales Feeling down, depressed, or hopeless Not at all 04/14/2025 3:05 PM EDT Stephanie Corrales Patient Health Questionnaire -2 Score 0 04/14/2025 3:05 PM JARADT Stephanie Corrales documented as of this encounter Plan of Treatment Upcoming Encounters Date Type Department Care Team (Late st Contact Info) Description 06/13/2025 11:40 AM EDT Office Visit [facility] Nephrology, Bone & Mineral Metabolism [address] [facility], [address] [place] [address] Sonia Medley MD [address] [place] [address] documented as of this encounter Goals Goal Patient Goal Type Associated Problems Recent Progress Patient-Stated? 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 Syed, AOC PLANS INTELLIGENCE OFFICER documented as of this encounter Visit [...] documented as of this encounter Care Teams Interactive Multimedia Designer Relationship Specialty Start Date End Date David Iverson MD PCP - General 06/06/22 Ludin Gonzalez MD [address] [place], [place] [address] Referring Physician 02/18/25 documented as of this encounter
--- OUTSIDE RECORDS SUMMARY | 2025-04-17 21:53 | XMS_ITS | Encounter Summary ---
Author Organization Healthcare Address [address] [place] [address] Care Team Providers Care Maintenance Chief Name Role Phone David Iverson MD Primary Care Provider [phone] Ludin Gonzalez MD Unavailable [phone] Encounter Details Date Type Department Care Team [...] 06/13/2025 11:40 AM EDT Office Visit [facility] [place] Nephrology, Bone & Mineral Metabolism [address] [facility], [address] [place] [address] Sonia Medley MD [address] [place] [address] documented as of this encounter [...] documented as of this encounter Care Teams Maintenance Chief Relationship Specialty Start Date End Date David Iverson MD PCP - General 06/06/22 Ludin Gonzalez MD [address] [place] [address] Referring Physician 02/18/25 documented as of this encounter
--- OUTSIDE RECORDS SUMMARY | 2025-04-17 21:53 | XMS_ITS | Encounter Summary ---
Author Organization Healthcare Address [address] [place] [address] Care Team Providers Care Human Resources Training Manager Name Role Phone David Iverson MD Primary Care Provider [phone] Encounter Details Date Type Department Care Team [...] Metabolism [address] [place] [address] Sonia Medley MD [address] [place] [address] documented as of this encounter Goals Goal Patient Goal Type Associated Problems Recent Progress Patient-Stated? 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 Syed, CLOTH WINDING SUPERVISOR documented as of this encounter Visit [...] documented as of this encounter Care Teams Human Resources Training Manager Relationship Specialty Start Date End Date David Iverson MD PCP - General 06/06/22 documented as of this encounter
--- OUTSIDE RECORDS SUMMARY | 2025-04-17 21:53 | XMS_ITS | Encounter Summary ---
Author Organization [facility] Address [address] [place] [id number] Care Team Providers Care Clerk Stenographer Name Role Phone David Iverson MD Primary Care Provider [phone] Ludin Gonzalez MD Unavailable [phone] Encounter Details Date Type Department Care Team ([facility] Contact Info) Description 03/10/2025 [facility] Nephrology, Bone & Mineral Metabolism [address] [facility], [address] [place] [address] Russel Zaman [facility] [address] [place] [address] Social History Tobacco Use Types Packs/Day Years [...] Upcoming Encounters Date Type Department Care Team ([facility] Contact Info) Description 06/13/2025 11:40 AM EDT Office Visit [facility] Nephrology, Bone & Mineral Metabolism [address] [facility], [address] [place] [address] Sonia Medley MD [address] [place] [address] documented as of this encounter Goals Goal Patient Goal Type Associated Problems Recent Progress Patient-Stated? 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 Syed, MARRIAGE AND FAMILY TEACHER documented as of this encounter Visit Diagnoses [...] documented as of this encounter Care Teams Clerk Stenographer Relationship Specialty Start Date End Date David Iversno MD PCP - General 06/06/22 Ludin Gonzalez MD [address] [place] [address] Referring Physician 02/18/25 documented as of this encounter
--- OUTSIDE RECORDS SUMMARY | 2025-04-17 21:53 | XMS_ITS | Encounter Summary ---
Author Organization Healthcare Address [address] [place] [address] Care Team Providers Care Work Force Advisor Name Role Phone David Iverson MD Primary Care Provider [phone] Ludin Gonzalez MD Unavailable [phone] Encounter Details Date Type Department Care Team ([facility] Contact Info) Description 04/13/2025 Telephone [facility] Nephrology, Bone & Mineral Metabolism [address] [facility], [address] [place] [address] Sonia Medley MD [address] [facility] [address] [place] [address] Social History Tobacco Use Types Packs/Day Years [...] any time in the past 12 m [facility], were you homeless or living in a detention (including now)? No 03/23/2025 Utilities Answer Date Recorded In the past 12 months has e [employer], gas, oil, or water [employer] threatened to shut off services in your home? No 03/23/2025 PHQ-2A Answer Date Recorded Depression Risk 0 03/21/2025 Sex and Gender Information Value Date Recorded Sex Assigned at Not on file Legal Sex Male 8:07 PM EDT Gender Identity Not on file Sexual Orientation Not on file documented as of this encounter Miscellaneous Notes * Telephone Encounter - Jesusita Goff Misty - 04/13/2025 3:02 PM EDT Paperwork/Documentation Request Patient Name: Lizandro Tafoya Celestine Type: Lab orders from Dr Medley Due Date: 04/13/25 Send To: [address] [place] [address] Best contact number: [phone] Optimal time of day to reach caller: ANYTIME Additional comments/information from caller: None Note: Please do not reply to this message. Follow-up communication and further actions as a result of this message need to be communicated with the patient directly, if the patient is not active onMyChart. If the patient is active on MyChart, they will receive notification of the communication/outcome via [employer]. documented in this encounter Plan of Treatment Upcoming Encounters Date Type Department Care Team (Late st Contact Info) Description 06/13/2025 11:40 AM EDT Office Visit [facility] Nephrology, Bone & Mineral Metabolism [address] [facility], [address] [place] [address] Sonia Medley MD [address] [place] [address] documented as of this encounter Goals Goal Patient Goal Type Associated Problems Recent Progress Patient-Stated? 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 Syed, NATHANIEL documented as of this encounter Visit Diagnoses [...] documented as of this encounter Care Teams Work Force Advisor Relationship Specialty Start Date End Date David Iverson MD PCP - General 06/06/22 Ludin Gonzalez MD [address] [place] [address] Referring Physician 02/18/25 documented as of this encounter
--- OUTSIDE RECORDS SUMMARY | 2025-04-17 21:53 | XMS_ITS | Encounter Summary ---
Author Organization Healthcare Address [address] [place] [address] Care Team Providers Care Acute Care Certified Nursing Assistant Name Role Phone David Iverson MD Primary Care Provider [phone] Encounter Details Date Type Department Care Team ([facility] Contact Info) Description 02/17/2025 Orders Only [facility] Cardiothoracic [address], [address] [place] [address] Musa Rosado MD [address] [place] [address] Coronary artery disease involving north fork heart without angina pectoris, unspecified vessel or [...] Upcoming Encounters Date Type Department Care Team ([facility] Contact Info) Description 06/13/2025 11:40 AM EDT Office Visit [facility] Nephrology, Bone & Mineral Metabolism [address] [facility], [address] [place] [address] Sonia Medley MD [facility] [address] [address] documented as of this encounter Goals Goal Patient Goal Type Associated Problems Recent Progress Patient-Stated? Author Autogenerat ed Goal Care Plan Autogenerated Problem No Asa Syedmerary [place], TRACTOR TRAILER TRUCK DRIVER documented as of this encounter Results * (ABNORMAL) Hemoglobin A1c (02/17/2025 1:31 PM EDT) Hemoglobin A1c 7.2(H) <5.7 % 02/17/2025 4:41 PM EDT [facility] Blood Venous blood specimen / Unknown Venipuncture / Unknown 02/17/2025 1:31 PM EDT 02/17/2025 1:31 PM EDT Narrative [facility] - 02/17/2025 4:41 PM EDT HA1C Interpretive Data: Diagnosis of Diabetes: Diabetic > or = 6.5% Pre-diabetic 5.7 to 6.4% Non-diabetic < or = 5.6% Glycemic Targets for Type I and Type II Diabetics: Non- Adults <7.0% Adults <6.0% Children and Adolescents <7.5% Source: [place] [employer]. Standards of medical care in diabetes,2017. Diabetes Care.2017:40 (suppl 1):S1-S135. us uMsa Rosado MD LAB BLOOD ORDERABLES Final R esult [facility] [address] [place] [address] * APTT (02/17/2025 1:31 PM EDT) aPTT 25 25 - 35 sec LAB COAGULATION METHOD 02/17/2025 2:47 PM EDT [facility] Blood Venous blood specimen / Unknown Venipuncture / Unknown 02/17/2025 1:31 PM EDT 02/17/2025 1:31 PM EDT Musa Rosado MD LAB BLOOD ORDERABLES Final R esult Performing Organization Address [facility]/ZIP Co de Phone Number [facility] [address] [place] [address] * Protime-INR (02/17/2025 1:31 PM EDT) Prothrombin Time 14.0 12.0 - 14.3 sec LAB COAGULATION METHOD 02/17/2025 2:47 PM EDT [facility] INR 1.1 0.9 - 1.1 LAB COAGULATION METHOD 02/17/2025 2:47 PM EDT [facility] Blood Venous blood specimen / Unknown Venipuncture / Unknown 02/17/2025 1:31 PM EDT 02/17/2025 1:31 PM EDT Narrative [facility] - 02/17/2025 2:47 PM EDT [...] ORDERABLES Final R esult Performing Organization Address [facility] Co de Phone Number [facility] [address] [place] [address] * CBC (02/17/2025 1:31 PM EDT) WBC Count 8.03 3.70 - 10.30 10*3/uL LAB HEMATOLOGY METHOD 02/17/2025 2:58 PM EDT [facility] RBC Count 5.14 4.60 - 6.10 10*6/uL LAB HEMATOLOGY METHOD 02/17/2025 2:58 PM EDT [facility] HGB 15.3 13.7 - 17.5 g/dL LAB HEMATOLOGY METHOD 02/17/2025 2:58 PM EDT [facility] HCT 45.7 40.0 - 51.0 % LAB HEMATOLOGY METHOD 02/17/2025 2:58 PM EDT [facility] Platelet Count 217 155 - 369 10*3/uL LAB HEMATOLOGY METHOD 02/17/2025 2:58 PM EDT [facility] MCV 89 79 - 98 fL LAB HEMATOLOGY METHOD 02/17/2025 2:58 PM EDT [facility] MCH 29.8 26.0 - 32.0 pg LAB HEMATOLOGY METHOD 02/17/2025 2:58 PM EDT [facility] MCHC 33.5 30.7 - 35.5 g/dL LAB HEMATOLOGY METHOD 02/17/2025 2:58 PM EDT [facility] RDW 13.3 11.5 - 14.5 % LAB HEMATOLOGY METHOD 02/17/2025 2:58 PM EDT [facility] MPV 11.2 8.8 - 12.5 fL LAB HEMATOLOGY METHOD 02/17/2025 2:58 PM EDT [facility] nRBC 0.0 <=0.0 per 100 WBCs LAB HEMATOLOGY METHOD 02/17/2025 2:58 PM EDT [facility] Blood Venous blood specimen / Unknown Venipuncture / Unknown 02/17/2025 1:31 PM EDT 02/17/2025 1:31 PM EDT us Musa Rosado MD LAB BLOOD ORDERABLES Final R esult [facility] [address] [place] [address] * (ABNORMAL) Comprehensive Metabolic Panel, Plasma (02/17/2025 1:31 PM EDT) Glucose, Plasma 196(H) 74 - 99 mg/dL 02/17/2025 3:07 PM EDT [facility] BUN, Plasma 24(H) 7 - 21 mg/dL 02/17/2025 3:07 PM EDT [facility] Creatinine, Plasma 1.46(H) 0.70 - 1.20 mg/dL 02/17/2025 3:07 PM EDT [facility] BUN/Creatinine Ratio 16 02/17/2025 3:07 PM EDT [facility] Sodium, Plasma 136 136 - 145 mmol/L 02/17/2025 3:07 PM EDT [facility] Potassium, Plasma 4.1 3.6 - 4.9 mmol/L 02/17/2025 3:07 PM EDT [facility] Chloride, Plasma 100 97 - 107 mmol/L 02/17/2025 3:07 PM EDT [facility] CO2, Plasma 25 22 - 29 mmol/L 02/17/2025 3:07 PM EDT [facility] Anion Gap 11 6 - 16 mmol/L 02/17/2025 3:07 PM EDT [facility] Total Calcium, Plasma 9.6 8.9 - 10.2 mg/dL 02/17/2025 3:07 PM EDT [facility] Total Protein 7.6 6.3 - 7.9 g/dL 02/17/2025 3:07 PM EDT [facility] Albumin, Plasma 4.6 3.5 - 5.2 g/dL 02/17/2025 3:07 PM EDT [facility] AST, Plasma 16 10 - 50 U/L 02/17/2025 3:07 PM EDT [facility] ALT, Plasma 25 10 - 50 U/L 02/17/2025 3:07 PM EDT [facility] Alkaline Phosphatase, Plasma 45 40 - 115 U/L 02/17/2025 3:07 PM EDT [facility] Total Bilirubin, Plasma 0.6 0.2 - 1.1 mg/dL 02/17/2025 3:07 PM EDT [facility] eGFRcr 60.8 mL/min/1.7 3m*2 02/17/2025 3:07 PM EDT [facility] Comment:Reported eGFRcr in m L/min/1.73m2 is based the CKD-EPI 2020 equation that does not use a race coefficient. Blood Venous blood specimen / Unknown Venipuncture / Unknown 02/17/2025 1:31 PM EDT 02/17/2025 1:31 PM EDT us Musa Rosado MD LAB BLOOD ORDERABLES Final R esult [facility] [address] [place] [address] documented in this encounter Visit Diagnoses Diagnosis Coronary artery disease involving north fork heart without angina pectoris, unspecified vessel or [...] documented as of this encounter Care Teams Acute Care Certified Nursing Assistant Relationship Specialty Start Date End Date David Iverson MD PCP - General 06/06/22 documented as of this encounter
--- NOTE | 2025-04-17 22:02 | CT_ITS ---
PROCEDURE INFORMATION: Exam: CTA Chest With Contrast Exam date and time: 04/17/2025 10:59 PM Age: 45 years old Clinical indication: Shortness of breath; Additional info: Recent bypass, right cp with SOB TECHNIQUE: Imaging protocol: Computed tomographic angiography of the chest with contrast. Exam focused on the arteries. 3D rendering (Not supervised by radiologist): MIP and/or 3D reconstructed images were created by the technologist. Radiation optimization: All CT scans at this facility use at least one of these dose optimization techniques: automated exposure control; mA and/or kV adjustment per patient size (includes targeted exams where dose is matched to clinical indication); or iterative reconstruction. Contrast material: ISOVUE; Contrast volume: 70 ml; Contrast route: INTRAVENOUS (IV); COMPARISON: CT ANGIO CHEST PE PROTOCOL 04/07/2025 2:05 PM FINDINGS: Pulmonary arteries: No central or large peripheral pulmonary emboli within the limitations of a motion degraded study.. Aorta: No evidence for aortic aneurysm or dissection. Lungs: Small bilateral effusions. Compressive atelectasis of the lower lobes. No focal infiltrates. Pleural spaces: Unremarkable. No pneumothorax. No pleural effusion. Heart: Mild cardiomegaly. Coronary arteries: Status post CABG. Coronary artery calcifications. Lymph nodes: Unremarkable. No enlarged lymph nodes. Bones/joints: Sternotomy wires. Soft tissues: Unremarkable. Other findings: Respiratory and motion artifact degrades the images. IMPRESSION: 1. Respiratory and motion artifact degrades the images. 2. No central or large peripheral pulmonary emboli within the limitations of a motion degraded study.. 3. Small bilateral effusions. Compressive atelectasis of the lower lobes. 4. No evidence for aortic aneurysm or dissection. 5. Mild cardiomegaly. 6. No focal infiltrates. 7. Sternotomy wires. 8. Status post CABG. 9. Coronary artery calcifications.
[2025-04-17 22:11] LABS: Albumin Level 4.3 g/dl (3.5-5.0); Chloride 97 mmol/L (98-107); Hematocrit 37.1 % (42.0-52.0); Hemoglobin 11.8 g/dL (14.1-18.0); Immature Granulocytes % 0.8 %; Mean Corpuscular HGB Conc 31.8 g/dL (31.8-35.4); Mean Corpuscular Hemoglobin 27.6 pg (27.0-31.2); Mean Corpuscular Volume 86.9 fl (80-94); Nucleated Red Blood Cells % 0 %; Platelet Count 320 K/mm3 (142-424); Potassium 4.0 mmoL/L (3.5-5.1); Red Blood Count 4.27 M/mm3 (4.60-6.20); Red Cell Distribution Width-SD 42.7 fL; Sodium 137 mmol/L (136-145); White Blood Count 6.6 K/mm3 (4.8-10.8)
[2025-04-17 22:14] LABS: Alanine Aminotransferase 13 U/L (12-78); Albumin/Globulin Ratio 1.1 (1.1-1.8); Alkaline Phosphatase 75 U/L (38-126); Anion Gap 15.0 mEq/L (5-15); Aspartate Amino Transferase 22 U/L (17-59); Bilirubin,Total 0.9 mg/dl (0.2-1.3); Blood Urea Nitrogen 19 mg/dl (9-20); Carbon Dioxide 29 mmol/L (22.0-30.0); Creatinine Clearance Estimated 104 mL/min (50-200); Creatinine,Serum 1.30 mg/dl (0.66-1.25); Estimated Glomerular Filt Rate 60 ml/min (>60); GFR (African American) 73 ML/MIN (>60); Globulin 3.8 g/dL (1.3-3.2); Total Protein,Serum 8.1 g/dl (6.3-8.2)
[2025-04-17 22:15] LABS: Calcium 9.5 mg/dl (8.4-10.2); Glucose 226 mg/dl (74-100)
[2025-04-17 22:24] LABS: NT Pro Brain Natriuretic Pep. 395 pg/mL (0-125)
[2025-04-17 22:30] VITALS: BP 119/72; PULSE 89; RESP 22; O2SAT 96
[2025-04-17 22:36] LABS: Troponin I < 0.01 ng/ml (0.00-0.034)
--- NOTE | 2025-04-17 22:36 | [facility].EDGENADL ---
Discharge Plan Disposition Patient Disposition: Home, Self-Care Condition: Good Prescriptions Prescriptions: No Action nitroglycerin 0.4 mg tablet, sublingual 0.4 mg sublingual Q5M PRN (Reason: chest pain) Qty: 20 0RF Rx Instructions: do not exceed 3 doses per episode methocarbamol 500 mg tablet 1,000 mg PO Q6H aspirin 81 mg tablet 81 mg PO DAILY insulin aspart U-100 [Novolog FlexPen U-100 Insulin] 100 unit/mL (3 mL) insulin pen 30 unit SQ TID PRN Rx Instructions: 30 units half hour before meals (3xday) metoprolol succinate [Toprol XL] 50 mg tablet extended release 24 hr 50 mg PO DAILY Qty: 30 3RF (DME) Dexcom G6 Transmitter Device See Rx Instructions .ROUTE .MEDSUPPLY Qty: 3 12RF Rx Instructions: As directed (DME) pen needle, diabetic [Pen Needle] 31 gauge x 5/16 needle See Rx Instructions .Route Qty: 100 3RF Rx Instructions: Use three times daily for insulin sildenafil [Viagra] 100 mg tablet 100 mg PO DAILY PRN (Reason: sexual activity) Qty: 7 10RF Rx Instructions: administer 30 minutes to 4 hours before activity allopurinol 300 mg tablet See Rx Instructions .ROUTE .COMPLEX Qty: 90 3RF Dose Instruction: TAKE ONE TABLET BY MOUTH ONCE A DAY Rx Instructions: TAKE ONE TABLET BY MOUTH ONCE A DAY fenofibrate nanocrystallized 145 mg tablet See Rx Instructions .ROUTE .COMPLEX Qty: 90 3RF Dose Instruction: TAKE ONE TABLET BY MOUTH ONCE A DAY Rx Instructions: TAKE ONE TABLET BY MOUTH ONCE A DAY Kerendia 10 mg tablet 10 mg PO DAILY Qty: 30 10RF insulin glargine [Lantus Solostar U-100 Insulin] 100 unit/mL (3 mL) insulin pen 80 unit SQ HS Patient Comments: INJECT 80 UNITS SUBCUTANEOUSLY ONCE A DAY Rx Instructions: please provide pen needles #100 [id number] (DME) pen needle, diabetic 31 gauge x 3/16 needle See Rx Instructions .ROUTE .MEDSUPPLY Qty: 100 12RF Rx Instructions: As directed tramadol 50 mg tablet 50 mg PO QID PRN (Reason: pain) 30 Days Qty: 120 5RF (DME) Dexcom G6 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 Instructions Additional Instructions/Restrictions: You were evaluated in the ER and are believed to be appropriate for discharge at this time. As discussed, monitor your symptoms closely. Continue taking any medications as previously prescribed. Call Dr. Rosado's office first thing in the morning to discuss your ER visit and ask them if they want you to have closer follow-up. Also follow-up with your primary care doctor. Return to the ER with any new, worsening, or otherwise concerning symptoms as discussed. Clinical Impressions Clinical Impression: Chest pain Print Language Print Language: Iranian Discharge ED Provider: Reed White General Adult HPI <Reed White MD - Last Filed: 04/18/25 10:47> General Chief complaint: Chest Pain Stated complaint: chest pain Time Seen by Provider: 04/17/25 21:52 Mode of Arrival: Ambulatory Source of Information: Patient Description of Symptoms (Recalled from ER Triage Doc. by RN): pt reports this morning when he got out of bed he began having chest pain and shortnes of air. pt reports he had a quadruple bypass on 03/22. History of Present Illness HPI narrative: Lizandro Sprague is a 45y male with a past medical history of hypertension, cardiac bypass surgery on March 31 at the [facility] on aspirin and Plavix who presents to the emergency department for complaints of intermittent chest pain. Patient states that he had been sleeping on the couch ever since the surgery and slept flat on his back last night for the first time. Today, he has had sharp pains underneath his right nipple with deep breathing throughout the course of the day that is worsened tonight. He states that similar type episode happened on April 05 and he was seen by his primary care physician and received an ultrasound and CT scan but never heard the results of it. His symptoms resolved shortly after that visit however. He denies any nausea, vomiting or abdominal pain. He denies any cough or hemoptysis. Related Data Home Medications ?Medication ?Instructions ?Recorded ?Confirmed insulin glargine 100 unit/mL (3 80 unit SQ HS 03/09/25 04/06/25 mL) subcutaneous pen (Lantus Solostar U-100 Insulin) aspirin 81 mg tablet 81 mg PO DAILY 04/06/25 04/06/25 insulin aspart U-100 100 unit/mL 30 unit SQ TID PRN 04/06/25 (3 mL) subcutaneous pen (Novolog FlexPen U-100 Insulin aspart) methocarbamol 500 mg tablet 1,000 mg PO Q6H 04/06/25 04/06/25 Previous Rx's ?Medication ?Instructions ?Recorded blood-glucose sensor (Dexcom G6 #1 ea 06/13/23 Sensor device) blood-glucose,receiver bulk system,cont #1 ea 06/13/23 (Dexcom G6 Mine Exploration Engineer) blood-glucose transmitter (Dexcom #3 ea 12/22/24 G6 Transmitter device) pen needle, diabetic 31 gauge x #100 ea 12/22/2402/18 (Pen Needle) sildenafil 100 mg tablet (Viagra) 100 mg PO DAILY PRN sexual 12/22/24 activity #7 tabs nitroglycerin 0.4 mg sublingual 0.4 mg sublingual Q5M PRN chest 02/23/25 tablet pain #20 tabs allopurinol 300 mg tablet See Rx Instructions .Route 03/09/25 .COMPLEX #90 tabs fenofibrate nanocrystallized 145 See Rx Instructions .Route 03/09/25 mg tablet .COMPLEX #90 tabs finerenone 10 mg tablet (Kerendia) 10 mg PO DAILY #30 tabs 03/09/25 pen needle, diabetic 31 gauge x #100 ea 03/09/2512/19 tramadol 50 mg tablet 50 mg PO QID PRN pain 30 days #120 03/09/25 tabs metoprolol succinate 50 mg 50 mg PO DAILY #30 tabs 04/06/25 tablet,extended release 24 hr (Toprol XL) atorvastatin 80 mg tablet 80 mg PO DAILY #30 tabs 04/15/25 Allergies Allergy/AdvReac Type Severity Reaction Status Date / Time No Known Allergies Allergy Verified 04/06/25 13:43 [facility] <Reed White MD - Last Filed: 04/18/25 10:47> [facility] Disclaimer: The information contained in this section may have been updated after the patient was seen, as this information can be updated by other users. 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 Diabetes Hyperlipidemia GERD (gastroesophageal reflux disease) Hypertension Surgical History Hx of cardiac cath Family History Other Cancer Diabetes Hypertension Stroke Social History Smoking Status: Never smoker alcohol intake: never substance use type: denies use current occupational status: disabled Travel in the last 8 weeks?: None household members: family housing: house current occupation: unemployed - disabilty Have you lived/traveled outside [place] in past 30 days?: No Contact w/someone who lives/traveled outside US past 30 days?: No Exposure to someone with infectious disease in past 14 days?: No Do you have a fever (greater than 100.4 F or 38 C)?: No Have you tested positive for COVID-19?: No Exposed to someone with COVID-19 in past 14 days?: No Do you have a sore throat?: No Do you have a cough?: No Do you have any weakness?: No Do you have any diarrhea?: No Are you experiencing any unusual bleeding?: No Do you have any muscle aches/pain?: No Do you have any abdominal pain?: No Are you experiencing loss of taste or smell?: No Other Medical History Have you received the Flu Vaccine for this season: No Have you received the Pneumonia Vaccine: No <Isabel Santana MD - Last Filed: 04/18/25 02:58> ROS Obtained: Yes Systems reviewed as appropriate & no additional complaints except as documented Physical Exam <Isabel Santana MD - Last Filed: 04/18/25 02:58> General General appearance: alert and in no apparent distress Head Head exam: atraumatic and normocephalic Eye Eye exam: Present PERRL and EOMI ENT ENT exam: Present mucous membranes moist Neck Neck exam: Present normal inspection and full ROM Chest Chest inspection: Present symmetric chest wall rise and tenderness (Along the sternum, well-healing sternotomy incision with no evidence of infection, appropriate tenderness given recent surgery) Respiratory Respiratory exam: Present normal lung sounds bilaterally; Absent respiratory distress, wheezes or stridor Cardiovascular Cardiovascular exam: Present regular rate and normal rhythm Abdominal Exam Abdominal exam: Present soft; Absent distention or tenderness Extremities Exam Extremities exam: Present full ROM Neurological Exam Neurological exam: Present alert and oriented X3; Absent motor sensory deficit Psychiatric Psychiatric exam: Present normal affect and normal mood Skin Skin exam: Present warm and dry Medical Decision Making <Reed White MD - Last Filed: 04/18/25 10:47> Medical Records Screening: Per USPSTF and CDC recommendations, given the prevalence of disease in our region, it is our hospital?s policy to screen for HIV and viral Hepatitis for all patients aged 18 and over and those with ongoing risk factors. Vital Signs: 04/17/25 21:36 04/17/25 22:30 04/17/25 23:38 Temperature 98.1 F Temperature Source Oral Pulse Rate 89 Pulse Rate [Right] 95 H Respiratory Rate 22 22 18 Blood Pressure 119/72 104/66 L Blood Pressure [Right Arm] 153/97 H Blood Pressure Mean Blood Pressure Mean [Right Arm] 115 Blood Pressure Position 02 Sat by Pulse Oximetry 96 96 98 Oxygen Delivery Method Room Air 04/18/25 00:00 04/18/25 00:30 04/18/25 01:00 Temperature Temperature Source Pulse Rate 80 86 68 Pulse Rate [Right] Respiratory Rate 25 H 24 Blood Pressure 104/66 L 103/70 L Blood Pressure [Right Arm] Blood Pressure Mean Blood Pressure Mean [Right Arm] Blood Pressure Position 02 Sat by Pulse Oximetry 96 93 L Oxygen Delivery Method 04/18/25 01:30 04/18/25 02:30 04/18/25 03:00 Temperature 97.6 F 97.6 F Temperature Source Pulse Rate 84 82 80 Pulse Rate [Right] Respiratory Rate 26 H 26 H 24 Blood Pressure 116/65 105/57 L 104/63 L Blood Pressure [Right Arm] Blood Pressure Mean 67 71 Blood Pressure Mean [Right Arm] Blood Pressure Position 02 Sat by Pulse Oximetry 96 93 L 93 L Oxygen Delivery Method 04/18/25 03:12 Temperature 97.6 F Temperature Source Oral Pulse Rate 80 Pulse Rate [Right] Respiratory Rate 20 Blood Pressure 104/63 L Blood Pressure [Right Arm] Blood Pressure Mean Blood Pressure Mean [Right Arm] Blood Pressure Position Supine 02 Sat by Pulse Oximetry Oxygen Delivery Method Room Air Lab Data Lab Results 04/17/25 21:39: WBC 6.6, RBC 4.27 L, Hgb 11.8 L, Hct 37.1 L, MCV 86.9, MCH 27.6, MCHC 31.8, RDW 13.7, Plt Count 320, MPV 10.9 H, Neut % (Auto) 60.7, Lymph % (Auto) 20.0, Loving % (Auto) 12.7 H, Eos % (Auto) 5.0, Baso % (Auto) 0.8, Neut # (Auto) 4.0, Lymph # (Auto) 1.3, Loving # (Auto) 0.8, Eos # (Auto) 0.3, Baso # (Auto) 0.1, Sodium 137, Potassium 4.0, Chloride 97 L, Carbon Dioxide 29, Anion Gap 15.0, BUN 19, Creatinine 1.30 H, Estimated Creat Clear 104, Estimated GFR 60, Est GFR ( Amer) 73, Glucose 226 H, Calcium 9.5, Total Bilirubin 0.9, AST 22, ALT 13, Alkaline Phosphatase 75, Troponin I < 0.01, NT-Pro-B Natriuret Pep 395 H, Total Protein 8.1, Albumin 4.3, Globulin 3.8 H, Albumin/Globulin Ratio 1.1 04/17/25 22:02: VBG pH 7.43 H, VBG pCO2 36.8, VBG pO2 47.5 H, VBG HCO3 23.9, VBG Total CO2 25.1, VBG O2 Saturation 83.1 H, VBG Base Excess -0.4, VBG Lactic Acid 1.3 04/18/25 01:41: Troponin I < 0.01 04/17/25 21:39 04/17/25 21:39 Orders (Tests/Meds): ED MEDICATIONS Discontinued Medications Generic Name Dose Route Start Last Admin Trade Name Freq PRN Reason Stop Dose Admin Lactated Ringer's 500 mls @ 999 mls/hr 04/17/25 23:09 04/17/25 23:19 Lactated Ringer's 500ml IV 04/17/25 23:39 999 mls/hr .Q31M ONE Administration Iopamidol 70 ml 04/17/25 23:00 04/17/25 23:00 Iopamidol-370 (76%);100ml Bottle IV 04/17/25 23:01 70 ml ONCE ONE Administration Sodium Chloride 50 ml 04/17/25 23:00 04/17/25 23:00 0.9 % Sodium Chloride 50 Ml Vial IV 04/17/25 23:01 50 ml ONCE ONE Administration Sodium Chloride 10 ml 04/17/25 23:00 04/17/25 23:01 Sodium Chloride 0.9% 10ml Syr (Rad Only) IV 05/17/25 22:59 10 ml NEEDED PRN Administration Maintain IV Site ORDERS Category Date Time Status CT angio chest PE protocol Stat Cat Scan 04/17/25 22:02 Completed BNP [NT Pro Brain Natriuretic Pep.] Stat Lab 04/17/25 21:39 Completed CBC w/Auto Diff [Complete Blood Count Auto Diff] Stat Lab 04/17/25 21:39 Completed CMP [Comprehensive Metabolic Panel] Stat Lab 04/17/25 21:39 Completed Troponin I Q3H Lab 04/18/25 01:41 Completed Troponin I Stat Lab 04/17/25 21:39 Completed VBG [Venous Blood Gas] Stat RT 04/17/25 22:02 Completed Medical Decision Narrative: Lizandro Sprague is a 45y male with a past medical history of hypertension, cardiac bypass surgery on March 31 at the [facility] on aspirin and Plavix who presents to the emergency department for complaints of intermittent chest pain. Patient states that he had been sleeping on the couch ever since the surgery and slept flat on his back last night for the first time. Today, he has had sharp pains underneath his right nipple with deep breathing throughout the course of the day that is worsened tonight. He states that similar type episode happened on April 05 and he was seen by his primary care physician and received an ultrasound and CT scan but never heard the results of it. His symptoms resolved shortly after that visit however. He denies any nausea, vomiting or abdominal pain. He denies any cough or hemoptysis. On arrival, patient is hypertensive with blood pressure 153/97, borderline tachycardic with a heart rate of 95 bpm, afebrile, oxygen saturation 96% on room air. On exam, patient is sitting upright in bed. Appears somewhat anxious. He has a healing midline sternotomy scar and few small well-healing incisions to the upper abdomen. Patient's chest wall is nontender. Cardiopulmonary exam without wheezing, rales or rhonchi. No murmurs are appreciated. Abdomen is soft, nontender nondistended. No evidence of volume overload. The remainder of his physical exam is grossly unremarkable. Differential diagnosis includes, but is not limited to: Pulmonary embolism, ACS, pneumonia, pneumothorax, pleurisy, costochondritis, pericarditis, myocarditis, among others. The most morbid conditions were considered and workup was based on these. Workup in the emergency department included: CT PE, troponin, VBG with lactate, EKG, CMP, CBC, BNP. Patient was given 500 cc lactated ringer after IV contrast was given. Laboratory workup at this time demonstrated no leukocytosis, hemoglobin stable at 11.8 and hematocrit of 37.1. Platelets normal at 320. pH with mild alkalosis at 7.43, pCO2 normal at 36.8. Bicarbonate normal at 23.9. Electrolytes unremarkable nonactionable. Mildly elevated creatinine of 1.3 (baseline appears to be around 1.1) with normal BUN of 19. Glucose elevated 226. Calcium normal at 9.5. Liver enzymes within normal limits. Initial troponin less than 0.01. BNP mildly elevated at 395. lactate normal at 1.3. Serial troponin pending at this time. CT PE interpreted by me personally. There are some motion artifact, however no proximal pulmonary embolism is appreciated on my exam. No evidence of pneumothorax or groundglass opacities to suggest pneumonia. Appreciated. Patient does have small bilateral pleural effusions and some mild atelectasis. Sternotomy wires are in place.No aneurysms or dissections. Grossly unremarkable CT PE. See final radiology report for details. At this time, patient's care was handed off to Dr. Santana pending repeat troponin and reassessment for symptomatic improvement. Santana: I assumed care of this patient from Dr. White at 2300hrs. patient's pain had dramatically improved and he was resting comfortably. Dr. White had recommended serial troponin with which I agree. CT imaging was also pending at that time. I reviewed labs which demonstrate no leukocytosis, mild anemia improved from most recent visit, VBG with pH 7.43, no hypercarbia, normal lactic on VBG, CMP with creatinine 1.3, patient's most recent was 1.1, however his baseline is closer to 1.5 based on previous labs. Initial troponin undetectably low less than 0.01, serial troponin pending. Patient was placed in the ED observation at 0000 for serial troponins and continued symptomatic monitoring. The goal of this was to preclude unnecessary admission and rule out evolving [place]. CTA PE personally interpreted does not demonstrate large PE, motion artifact limits interpretation, patient does have small pleural effusions but these are consistent with recent operative intervention. I do not appreciate anything on CT that is acute or specifically concerning at this time. See radiology read for final interpretation Patient remained on the monitoring manager and was frequently reassessed. He continues to rest comfortably. He states his pain is dramatically improved. Repeat troponin also less than 0.01. Patient continues to rest comfortably and would like to be discharged which I believe is reasonable at this time. He and at bedside were given instructions for very close symptomatic monitoring and management, follow-up instructions including to call the cardiothoracic surgeon in the morning to review his ER visit, as well as strict return precautions for the ER. They indicated understanding and the patient was discharged in stable condition. <Isabel Santana MD - Last Filed: 04/18/25 02:58> Medical Records Medical records reviewed: Yes I reviewed the patient's medical records. Federico Inquiry Pt receiving controlled substance: No Vital Signs: 04/17/25 21:36 04/17/25 22:30 04/17/25 23:38 Temperature 98.1 F Temperature Source Oral Pulse Rate 89 Pulse Rate [Right] 95 H Respiratory Rate 22 22 18 Blood Pressure 119/72 104/66 L Blood Pressure [Right Arm] 153/97 H Blood Pressure Mean Blood Pressure Mean [Right Arm] 115 Blood Pressure Position 02 Sat by Pulse Oximetry 96 96 98 Oxygen Delivery Method Room Air 04/18/25 00:00 04/18/25 00:30 04/18/25 01:00 Temperature Temperature Source Pulse Rate 80 86 68 Pulse Rate [Right] Respiratory Rate 25 H 24 Blood Pressure 104/66 L 103/70 L Blood Pressure [Right Arm] Blood Pressure Mean Blood Pressure Mean [Right Arm] Blood Pressure Position 02 Sat by Pulse Oximetry 96 93 L Oxygen Delivery Method 04/18/25 01:30 04/18/25 02:30 04/18/25 03:00 Temperature 97.6 F 97.6 F Temperature Source Pulse Rate 84 82 80 Pulse Rate [Right] Respiratory Rate 26 H 26 H 24 Blood Pressure 116/65 105/57 L 104/63 L Blood Pressure [Right Arm] Blood Pressure Mean 67 71 Blood Pressure Mean [Right Arm] Blood Pressure Position 02 Sat by Pulse Oximetry 96 93 L 93 L Oxygen Delivery Method 04/18/25 03:12 Temperature 97.6 F Temperature Source Oral Pulse Rate 80 Pulse Rate [Right] Respiratory Rate 20 Blood Pressure 104/63 L Blood Pressure [Right Arm] Blood Pressure Mean Blood Pressure Mean [Right Arm] Blood Pressure Position Supine 02 Sat by Pulse Oximetry Oxygen Delivery Method Room Air Lab Data Lab Results 04/17/25 21:39: WBC 6.6, RBC 4.27 L, Hgb 11.8 L, Hct 37.1 L, MCV 86.9, MCH 27.6, MCHC 31.8, RDW 13.7, Plt Count 320, MPV 10.9 H, Neut % (Auto) 60.7, Lymph % (Auto) 20.0, Loving % (Auto) 12.7 H, Eos % (Auto) 5.0, Baso % (Auto) 0.8, Neut # (Auto) 4.0, Lymph # (Auto) 1.3, Loving # (Auto) 0.8, Eos # (Auto) 0.3, Baso # (Auto) 0.1, Sodium 137, Potassium 4.0, Chloride 97 L, Carbon Dioxide 29, Anion Gap 15.0, BUN 19, Creatinine 1.30 H, Estimated Creat Clear 104, Estimated GFR 60, Est GFR ( Amer) 73, Glucose 226 H, Calcium 9.5, Total Bilirubin 0.9, AST 22, ALT 13, Alkaline Phosphatase 75, Troponin I < 0.01, NT-Pro-B Natriuret Pep 395 H, Total Protein 8.1, Albumin 4.3, Globulin 3.8 H, Albumin/Globulin Ratio 1.1 04/17/25 22:02: VBG pH 7.43 H, VBG pCO2 36.8, VBG pO2 47.5 H, VBG HCO3 23.9, VBG Total CO2 25.1, VBG O2 Saturation 83.1 H, VBG Base Excess -0.4, VBG Lactic Acid 1.3 04/18/25 01:41: Troponin I < 0.01 Orders (Tests/Meds): ED MEDICATIONS Discontinued Medications Generic Name Dose Route Start Last Admin Trade Name Freq PRN Reason Stop Dose Admin Lactated Ringer's 500 mls @ 999 mls/hr 04/17/25 23:09 04/17/25 23:19 Lactated Ringer's 500ml IV 04/17/25 23:39 999 mls/hr .Q31M ONE Administration Iopamidol 70 ml 04/17/25 23:00 04/17/25 23:00 Iopamidol-370 (76%);100ml Bottle IV 04/17/25 23:01 70 ml ONCE ONE Administration Sodium Chloride 50 ml 04/17/25 23:00 04/17/25 23:00 0.9 % Sodium Chloride 50 Ml Vial IV 04/17/25 23:01 50 ml ONCE ONE Administration Sodium Chloride 10 ml 04/17/25 23:00 04/17/25 23:01 Sodium Chloride 0.9% 10ml Syr (Rad Only) IV 05/17/25 22:59 10 ml NEEDED PRN Administration Maintain IV Site ORDERS Category Date Time Status CT angio chest PE protocol Stat Cat Scan 04/17/25 22:02 Completed BNP [NT Pro Brain Natriuretic Pep.] Stat Lab 04/17/25 21:39 Completed CBC w/Auto Diff [Complete Blood Count Auto Diff] Stat Lab 04/17/25 21:39 Completed CMP [Comprehensive Metabolic Panel] Stat Lab 04/17/25 21:39 Completed Troponin I Q3H Lab 04/18/25 01:41 Completed Troponin I Stat Lab 04/17/25 21:39 Completed VBG [Venous Blood Gas] Stat RT 04/17/25 22:02 Completed Medical Decision Narrative: Santana: I assumed care of this patient from Dr. White at 2300hrs. patient's pain had dramatically improved and he was resting comfortably. Dr. White had recommended serial troponin with which I agree. CT imaging was also pending at that time. I reviewed labs which demonstrate no leukocytosis, mild anemia improved from most recent visit, VBG with pH 7.43, no hypercarbia, normal lactic on VBG, CMP with creatinine 1.3, patient's most recent was 1.1, however his baseline is closer to 1.5 based on previous labs. Initial troponin undetectably low less than 0.01, serial troponin pending. Patient was placed in the ED observation at 0000 for serial troponins and continued symptomatic monitoring. The goal of this was to preclude unnecessary admission and rule out evolving [place]. CTA PE personally interpreted does not demonstrate large PE, motion artifact limits interpretation, patient does have small pleural effusions but these are consistent with recent operative intervention. I do not appreciate anything on CT that is acute or specifically concerning at this time. See radiology read for final interpretation Patient remained on the monitoring manager and was frequently reassessed. He continues to rest comfortably. He states his pain is dramatically improved. Repeat troponin also less than 0.01. Patient continues to rest comfortably and would like to be discharged which I believe is reasonable at this time. He and at bedside were given instructions for very close symptomatic monitoring and management, follow-up instructions including to call the cardiothoracic surgeon in the morning to review his ER visit, as well as strict return precautions for the ER. They indicated understanding and the patient was discharged in stable condition. Critical Care <Isabel Santana MD - Last Filed: 04/18/25 02:58> Critical Care Time Critical Care Time: No
[2025-04-17 22:51] LABS: Lactate Venous 1.3 mmol/L (0.4-2.0); VBG HCO3 23.9 mmol/L (23-30); VBG PCO2 36.8 mmol/L (35-51); VBG PH 7.43 mmol/L (7.31-7.41); VBG PO2 47.5 mmol/L (28-40)
[2025-04-17] MEDS: IOPAMIDOL-370 (76%);100ML BOTTLE 70 ML IV (23:00)
[2025-04-17] MEDS: 0.9 % SODIUM CHLORIDE 50 ML VIAL IV (23:00)
[2025-04-17] MEDS: SODIUM CHLORIDE 0.9% 10ML SYR (RAD ONLY) 10 ML IV (23:01)
[2025-04-17] MEDS: RINGERS SOLUTION,LACTATED 500 ML 999 ML IV (23:19)
[2025-04-17 23:38] VITALS: BP 104/66; RESP 18; O2SAT 98
[2025-04-18] VITALS (7 sets, daily range): BP systolic 103–116; BP diastolic 57–70; PULSE 68–86; RESP 20–26; TEMP 36.4; O2SAT 93–96
[2025-04-18 02:12] LABS: Troponin I < 0.01 ng/ml (0.00-0.034)
== END 2025-04-18 03:13 | disposition home or self-care (01) ==
PROVIDERS: Emergency Provider Student in an Organized Health Care Education/Training Program; PCP Family Medicine
DX: R07.89 Other chest pain (principal); R06.02 Shortness of breath; I25.10 Atherosclerotic heart disease of native coronary artery without angina pectoris; I48.91 Unspecified atrial fibrillation; E78.5 Hyperlipidemia, unspecified
CPT/HCPCS: 71275; 80053; 82803; 83880; 84484; 85025; 93005; 99285; J7120; Q9967

== ENCOUNTER 2025-05-10 09:58 | Outpatient (RCR) | payer MEDICARE, MEDICAID, SELFPAY | END 2025-06-20 08:00 | disposition home or self-care (01) | LOC: CR 09:58 | PROVIDERS: Visit Provider Thoracic Surgery (Cardiothoracic Vascular Surgery) | DX: I25.10 Atherosclerotic heart disease of native coronary artery without angina pectoris (principal); I10 Essential (primary) hypertension | CPT/HCPCS: 93797; 93798 ==

== ENCOUNTER 2025-05-20 12:00 | Outpatient (CLI) | payer MEDICARE, MEDICAID, SELFPAY ==
--- OUTSIDE RECORDS SUMMARY | 2025-03-22 05:35 | XMS_ITS | Encounter Summary ---
Author Organization Healthcare Address [address] [id number] Care Team Providers Care Title Searcher Name Role Phone David Iverson MD Primary Care Provider [phone] Ludin Gonzalez MD Unavailable [phone] Reason for Referral * Consultation (Routine) - Authorized Specialty Diagnoses / Procedures Referred By Contac t Referred To Contact Cardiac Rehabilitation Diagnoses S/P CABG x 4 Musa Rosado MD [address] [address] Phone: tel: fax: Referral ID Status Reason Start Date Expiration Date V isits Requested Visits Authorized [id number] Authorized 04/05/2025 10/05/2026 1 1 * Consultation (Routine) - Authorized Specialty Diagnoses / Procedures Referred By Contac t Referred To Contact Cardiac Rehabilitation Diagnoses CAD, multiple vessel Musa Rosado MD [address] [address] Phone: tel: fax: [facility] [address], [address] [place] [address] Phone: tel: fax: Referral ID Status Reason Start Date Expiration Date V isits Requested Visits Authorized [id number] Authorized 03/22/2025 09/21/2026 1 1 Reason for Visit * Auth/Cert (Routine) Specialty Diagnoses / Procedures Referred By Jody t Referred To Contact Diagnoses Coronary artery disease due to calcified coronary lesion Coronary artery disease due to calcified coronary lesion [I25.10, I25.84] Procedures DC CABG, VEIN, THREE CABG, 2 OR MORE VESSELS Musa Rosado MD [address] [address] Phone: tel: fax: [facility] [address] [place] [address] Phone: tel: Referral ID Status Reason Start Date Expiration Date Visits Re quested Visits Authorized [id number] 1 1 Encounter Details Date Type Department Care Team (Latest Contact Info) Description 03/22/2025 5:35 AM EDT - 03/30/2025 11:38 AM EDT Hospital Encounter [facility] [address] [place] [address] Musa Rosado MD [address] [address] CAD, multiple vessel (Primary Dx); [...] any time in the past 12 m [facility], were you homeless or living in a alf (including now)? No 03/23/2025 Utilities Answer Date Recorded In the past 12 months has th e [employer], gas, oil, or water company threatened to [...] AM EDT Case Management Discharge Note Lizandro rG 45 y.o. male CSN: [id number] Admission: 03/22/2025 5:35 AM Primary Problem: CAD (coronary artery disease) Primary Veneer Department Manager: Primary Caregiver: Self Assistance Available at Discharge: Availability of Care Givers (#Hours): Other (comment) (as needed) Family/Veneer Department Manager(s) Willingness Assessed to care for patient at home: Yes Family/Veneer Department Manager(s) Readiness Assessed to care for patient at [...] Notice Recieved By: Pt's s/o Follow-up: [facility] [address], [address] [facility] [address] Raya Woods APRN [facility] [address] [address] Go on 05/25/2025 Your appointment time is [...] this date and does not require further [facility]-based care. SW met with pt's s/o at [...] from the original note were not included. [id number] Insulin Aspart (rDNA Origin) Injection Brand Name(s): [...] type 1 diabetes, it is usually injected [id number] minutes before a meal. If you are [...] buy an insulin pen separately. Check the manager of maintenance's information for the patient to see what [...] be sure to read and understand the manager of maintenance's instructions. If you are blind or have [...] or doctor for a copy of the manager of maintenance's information for the patient. Are there OTHER [...] medications. Ask your pharmacist or check the manager of maintenance's patient information for a list of the [...] of all of the prescription and nonprescription (gqiy-udo-zgisktw) medicines, vitamins, minerals, and dietary supplements you [...] or pharmacist about specific clinical use. The [place] [employer] represents that the information provided hereunder was formulated with a reasonable standard of care, and in conformity with professional standards in the field. The [place] [employer] makes no representations or warranties, express or implied, including, but not limited to, any implied warranty of merchantability and/or fitness for a particular purpose, with respect to such information and specifically disclaims all such warranties. Users are advised that decisions regarding drug therapy are complex medical decisions requiring the independent, informed decision of an appropriate health rn patient care, and the information is provided for informational purposes only. The entire monograph for a drug should be reviewed for a thorough understanding of the drug's actions, uses and side effects. The [place] [employer] does not endorse or recommend the use of any drug.The information is not a substitute for medical care. AHFS?? Patient Medication Information?. ?? Copyright, 2023. The [place]??, [address], [address], [place], [place]. All Rights Reserved. Duplication for commercial use must be authorized by [facility]. Selected Revisions: May 20, 2023. AHFS?? Patient Medication Information?. ?? Copyright, 2024 * Jh Horton - Mikayla Leung - 03/30/2025 10:52 AM EDT 1087 Oxycodone Oral Tablet, Immediate Release Brand Names: Oxaydo, Roxicodone What is this medicine? Oxycodone (jc-k-XUV-done) is an opioid pain reliever. It is used to treat moderate to severe pain. What should I tell my health care provider before I take this medicine? They need to know if you have any of these conditions: ? Chetan's disease ? Brain tumor or head injury [...] a special medication guide each time you pickle cutter this medicine. ? Overdosage: Taking too much [...] should report to your doctor or health rn patient care as soon as possible: ? allergic reactions [...] attention (report to your doctor or health rn patient care if they continue or are bothersome): ? constipation ? dry mouth ? itching ? nausea, vomiting ? upset stomach This list may not describe all possible side effects. Call your doctor for medical advice about side effects. You may report side effects to FDA at 2-947-GSM-7593. Where should I keep my medicine? This [...] location. To find a disposal location, visit [facility]/[place]. If you cannot take unused medicine to [...] from the original note were not included. [id number] Senna Brand Name(s): Sammy Jacob??, Ex-Lax??, Nelson's [...] and out of their sight and reach. [email or web address]://www.[employer].org Dispose of unneeded medications in a way [...] be awakened, immediately call emergency services at 561. What OTHER INFORMATION should I know? Ask your pharmacist any questions you have about senna. Keep a written list of all of the prescription and nonprescription (gvsm-hft-xuescsw) medicines, vitamins, minerals, and dietary supplements you [...] or pharmacist about specific clinical use. The [place] [employer] represents that the information provided hereunder was formulated with a reasonable standard of care, and in conformity with professional standards in the field. The [place] [employer] makes no representations or warranties, express or implied, including, but not limited to, any implied warranty of merchantability and/or fitness for a particular purpose, with respect to such information and specifically disclaims all such warranties. Users are advised that decisions regarding drug therapy are complex medical decisions requiring the independent, informed decision of an appropriate health rn patient care, and the information is provided for informational purposes only. The entire monograph for a drug should be reviewed for a thorough understanding of the drug's actions, uses and side effects. The [place] [employer] does not endorse or recommend the use of any drug.The information is not a substitute for medical care. AHFS?? Patient Medication Information?. ?? Copyright, 2023. The [place] [employer]??, [address], [address], [place], [place]. All Rights Reserved. Duplication for commercial use must be authorized by [facility]. Selected Revisions: March 25, 2024. AHFS?? Patient Medication Information?. ?? Copyright, 2024 * Jh Horton - Mikayla Leung - 03/30/2025 10:51 AM EDT Images from the original note were not included. 798 Narcan Nasal [place]: Rescue Guide for Opioid Overdose Step 1 [...] the video go to this web address: [email or web address] Or, scan this QR code with your smart phone ?? [employer] * Mikayla Cortez - 03/30/2025 10:51 AM EDT Images from the original note were not included. [id number] Methocarbamol Brand Name(s): Robaxin??; also available generically [...] of all of the prescription and nonprescription (twzs-gql-drykmuj) medicines, vitamins, minerals, and dietary supplements you [...] or pharmacist about specific clinical use. The [place] [employer] represents that the information provided hereunder was formulated with a reasonable standard of care, and in conformity with professional standards in the field. The [place] [employer] makes no representations or warranties, express or implied, including, but not limited to, any implied warranty of merchantability and/or fitness for a particular purpose, with respect to such information and specifically disclaims all such warranties. Users are advised that decisions regarding drug therapy are complex medical decisions requiring the independent, informed decision of an appropriate health rn patient care, and the information is provided for informational purposes only. The entire monograph for a drug should be reviewed for a thorough understanding of the drug's actions, uses and side effects. The [place] [employer] does not endorse or recommend the use of any drug.The information is not a substitute for medical care. AHFS?? Patient Medication Information?. ?? Copyright, 2023. The [place] [employer]??, [address], [address], [place], [place]. All Rights Reserved. Duplication for commercial use must be authorized by [facility]. Selected Revisions: May 20, 2017. AHFS?? Patient Medication Information?. ?? Copyright, 2024 * [facility] - Mikayla Leung - 03/30/2025 10:50 AM EDT Images from the original note were not included. [id number] Furosemide Brand Name(s): Lasix??; also available generically [...] to the Food and Drug Administration's (FDA) InvitedHome Adverse Event Reporting program online (https://www.fda.gov/Safety/MedWatch) or [...] and out of their sight and reach. https://www.[employer].org Dispose of unneeded medications in a way [...] be awakened, immediately call emergency services at 501. Symptoms of overdose may include: ? extreme [...] of all of the prescription and nonprescription (tuvd-gau-daxawcv) medicines vitamins, minerals, and dietary supplements you [...] or pharmacist about specific clinical use. The [place] [employer] represents that the information provided hereunder was formulated with a reasonable standard of care, and in conformity with professional standards in the field. The [place] [employer] makes no representations or warranties, express or implied, including, but not limited to, any implied warranty of merchantability and/or fitness for a particular purpose, with respect to such information and specifically disclaims all such warranties. Users are advised that decisions regarding drug therapy are complex medical decisions requiring the independent, informed decision of an appropriate health rn patient care, and the information is provided for informational purposes only. The entire monograph for a drug should be reviewed for a thorough understanding of the drug's actions, uses and side effects. The [place] [employer] does not endorse or recommend the use of any drug.The information is not a substitute for medical care. AHFS?? Patient Medication Information?. ?? Copyright, 2023. [employer] [place] [employer]??, [address], [address], [place], [place]. All Rights Reserved. Duplication for commercial use must be authorized by [facility]. Selected Revisions: January 18, 2025. AHFS?? Patient Medication Information?. ?? Copyright, 2024 * Jh Horton - Mikayla Leung - 03/30/2025 10:50 AM EDT Images from the original note were not included. [id number] Stool Softeners Brand Name(s): Colace??, Correctol Soft [...] and out of their sight and reach. https://www.[employer].org Dispose of unneeded medications in a way [...] of all of the prescription and nonprescription (qacg-xmp-utejmlw) medicines, vitamins, minerals, and dietary supplements you [...] or pharmacist about specific clinical use. The [place] [employer] represents that the information provided hereunder was formulated with a reasonable standard of care, and in conformity with professional standards in the field. The [place] [employer] makes no representations or warranties, express or implied, including, but not limited to, any implied warranty of merchantability and/or fitness for a particular purpose, with respect to such information and specifically disclaims all such warranties. Users are advised that decisions regarding drug therapy are complex medical decisions requiring the independent, informed decision of an appropriate health rn patient care, and the information is provided for informational purposes only. The entire monograph for a drug should be reviewed for a thorough understanding of the drug's actions, uses and side effects. The [place] [employer] does not endorse or recommend the use of any drug.The information is not a substitute for medical care. AHFS?? Patient Medication Information?. ?? Copyright, 2023. The [place] [employer]??, [address], [address], [place], [place]. All Rights Reserved. Duplication for commercial use must be authorized by [facility]. Selected Revisions: March 25, 2024. AHFS?? Patient Medication Information?. ?? Copyright, 2024 * Jh Horton - Mikayla Leung - 03/30/2025 10:50 AM EDT Images from the original note were not included. [id number] Acetaminophen Brand Name(s): Actamin??, Feverall??, Panadol??, Tempra Quicklets??, Tylenol??, Dayquil?? (as a combination product containing Acetaminophen, Dextromethorphan, Pseudoephedrine), NyQuil Cold/Flu Relief?? (as a combination product containing Acetaminophen, Dextromethorphan, Doxylamine), Percocet?? (as a combination product containing Acetaminophen, Oxycodone) APAP, N-quqwde-stxr-aminophenol, Paracetamol ?? This branded product is no [...] measuring cup or syringe provided by the manager of maintenance to measure each dose of the solution [...] and out of their sight and reach. https://www.[employer].org Unneeded medications should be disposed of in [...] be awakened, immediately call emergency services at 891. If someone takes more than the recommended [...] of all of the prescription and nonprescription (gwch-idt-qqoewty) medicines you are taking, as well as [...] or pharmacist about specific clinical use. The [place] [employer] represents that the information provided hereunder was formulated with a reasonable standard of care, and in conformity with professional standards in the field. The [place] [employer] makes no representations or warranties, express or implied, including, but not limited to, any implied warranty of merchantability and/or fitness for a particular purpose, with respect to such information and specifically disclaims all such warranties. Users are advised that decisions regarding drug therapy are complex medical decisions requiring the independent, informed decision of an appropriate health rn patient care, and the information is provided for informational purposes only. The entire monograph for a drug should be reviewed for a thorough understanding of the drug's actions, uses and side effects. The [place] [employer] does not endorse or recommend the use of any drug.The information is not a substitute for medical care. AHFS?? Patient Medication Information?. ?? Copyright, 2023. The [place] [employer] [employer]??, [address], [address], [place], [place]. All Rights Reserved. Duplication for commercial use must be authorized by [facility]. Selected Revisions: June 20, 2023. AHFS?? Patient Medication Information?. ?? Copyright, 2024 * Discharge Summary - Lian Dobbs APRN - 03/30/2025 10:04 AM EDT Images from the original note were not included. Hospitalization Admit Date/Time: 03/22/2025 5:35 AM Admitting Attending: Musa Rosado Discharge Date: 03/30/2025 Discharge Attending Physician: Musa Rosado MD PCP name and Address: David Iverson MD [address] [place] [address] Referring provider name and address: No referring [...] Your Medications These medications were sent to [facility] - [place], [place] - [address] [facility] [id number] acetaminophen 500 MG tablet allopurinol 300 MG [...] Sternotomy, coronary artery bypass grafting, endoscopic vein wjalekg-opvqv-nnctusj saphenous. Vein the ascending aorta the 1st [...] Center 04/14/2025 3:40 PM [facility]ado [facility] 06/13/2025 11:40 AM Sonia Medley MD [facility] Test Results Pending At Discharge Pending [...] present and normoactive x 4 quadrants SKIN: [place], warm, and dry. No rash, sores, or [...] CAD, CKD, HLD, T2DM, Afib presented to [facility] for CABG on 03/22. Endocrine Diabetes [...] with patient, family member, primary team, bedside transport analyst planning -Diabetes education: not needed -Follow-up plan: [...] via secure chat or page us at [phone] during -7p, Friday-Friday. For after hours please [...] chloride, sodium chloride * Progress Notes - Ruth Nelson - 03/29/2025 9:05 AM EDT Physical [...] Transfer Exam: Sit to stand Level of [place]: Stand-by assist Physical/Nonphysical Assist: Supervision Assistive Device: Hand held assist Transfer Exam: Stand to Sit Level of [place]: Stand-by assist Physical/Nonphysical Assist: Supervision Assistive Device: [...] CAD, CKD, HLD, T2DM, Afib presented to [facility] for CABG on 03/22. Endocrine Diabetes [...] via secure chat or page us at [phone] during 7a-7p, Friday-Friday. For after hours please [...] Sternotomy, coronary artery bypass grafting, endoscopic vein ofyxdkq-wywow-nyhxjix saphenous. Vein the ascending aorta the 1st [...] plan for DC home tomorrow. Cardiothoracic Surgery [phone] [1] acetaminophen, 1,000 mg, Oral, q6h VIOLETTE allopurinol, 300 mg, Oral, Daily aspirin, 81 mg, Oral, Daily atorvastatin, 80 mg, Oral, Nightly docusate sodium, 100 mg, Oral, BID fenofibrate, 145 mg, Oral, Daily furosemide, 40 mg, Oral, Daily gabapentin, 300 mg, Oral, BID heparin (porcine), 5,000 Units, Subcutaneous, q8h COUNTS INCLUDE 234 BEDS AT THE [facility] insulin glargine-yfgn, 30 Units, Subcutaneous, Nightly [...] Note Lizandro Gr 45 y.o. male CSN: [id number] Room/Bed 119/119A Nutrition evaluation type: follow-up Reason [...] (Room air) O2 Delivery Method: Nasal cannula [place] Coma Scale Score: 15 Gato Scale Score: [...] 31.03 Weight Evaluation: Obese-Class 1 (BMI 30-34.9) [place] Body Weight (kg): 80.9 Percent [place] Body Weight: 128 Adjusted Body Weight (kg): 86.9 Estimated Needs: Kcal/ K-25 Kcal Provided: 8284-4890 Metabolic Cart Study Results: Current Nutrition Intake: Diet Supplements: Impact AR Diet Order: Adult Diet Diet Texture: Regular Adult Carbohydrate Restriction: Consistent CHO 2 (4046-0619 Alex, 80 g/meal) Adult Sodium Restriction: No added salt Percent Meals Eaten (%): 50-100% x 5 days Diet Experience and Nutrition History: Diet Education Provided: Will monitor Pertinent home medications: Rastafari needs: Nutrition Focused Physical Exam: Unable to [...] BID heparin (porcine), 5,000 Units, Subcutaneous, q8h COUNTS INCLUDE 234 BEDS AT THE [facility] insulin glargine-yfgn, 30 Units, Subcutaneous, Nightly [...] Progressing * Progress Notes - Ephraim Hicks SURGICAL INSTRUMENT TECHNICIAN - 03/28/2025 12:43 PM EDT CVT Progress [...] Sternotomy, coronary artery bypass grafting, endoscopic vein gyfcjfz-rokvb-nxqwnak saphenous. Vein the ascending aorta the 1st [...] and replete prn Acute postoperative pain - [facility] DM II (POA) Diabetic neuropathy (POA) Postoperative [...] Wean pain medication as tolerated. Cardiothoracic Surgery [phone] [1] acetaminophen, 1,000 mg, Oral, q6h VIOLETTE [...] Note Lizandro Gr 45 y.o. male CSN: [id number] Admission: 03/22/2025 5:35 AM Primary Problem: CAD [...] Pastoral Care Note: Patient was appreciative of banking officer's visit. was on the bed side supporting him. The chaplainprovided patient supportive listen, emotional support and spiritual support. The family appreciate banking officer as they informed the banking officer that they maybe discharged today. Referral From: Lead Software Development Engineer Initiated Pastoral Care Provided For: Patient, Spouse [...] release, Expresses feeling spiritually nurtured, Appreciative of Lead Software Development Engineer Support, Communicates increased satisfaction with hospital experience, Is functionally engaged in meaning making, Demonstrates and/or verbalizes increased comfort Cosigned by Eva French at 03/31/2025 9:46 AM EDT Associated attestation - Eva French - 03/31/2025 9:46 AM EDT This is to attest banking officer graphics intern chart note has been reviewed and okayed. * Progress Notes - Maritza Khanna APRN - 03/28/2025 8:05 AM EDT -Nahun Gr is a 45 y.o. male PMH CAD, CKD, HLD, T2DM, Afib presented to [facility] for CABG on 03/22. 24 hr [...] CAD, CKD, HLD, T2DM, Afib presented to [facility] for CABG on 03/22. Endocrine Diabetes [...] via secure chat or page us at [phone] during 7a-7p, Sun-Sat. For after hours, weekends, [...] CAD, CKD, HLD, T2DM, Afib presented to [facility] for CABG on 03/22. 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 male PMH CAD, CKD, HLD, T2DM, Afib presented to [facility] for CABG on 03/22. Endocrine Diabetes [...] via secure chat or page us at [phone] during 7a-7p, Sun-Sat. For after hours, weekends, [...] Sternotomy, coronary artery bypass grafting, endoscopic vein fiztfic-joxto-kxgrzhw saphenous. Vein the ascending aorta the 1st [...] and replete prn Acute postoperative pain - [facility] DM II (POA) Diabetic neuropathy (POA) Postoperative [...] Sternotomy, coronary artery bypass grafting, endoscopic vein nobbwhc-gclfk-pshjoam saphenous. Vein the ascending aorta the 1st [...] as able. Escalate bowel regimen. Cardiothoracic Surgery [phone] [1] acetaminophen, 650 mg, Oral, q6h COUNTS INCLUDE 234 BEDS AT THE [facility] allopurinol, 300 mg, Oral, Daily aspirin, 81 mg, Oral, Daily atorvastatin, 80 mg, Oral, Nightly colchicine, 0.6 mg, Oral, BID docusate sodium, 100 mg, Oral, BID fenofibrate, 145 mg, Oral, Daily furosemide, 40 mg, Oral, Daily gabapentin, 300 mg, Oral, BID heparin (porcine), 5,000 Units, Subcutaneous, q8h COUNTS INCLUDE 234 BEDS AT THE [facility] insulin glargine-yfgn, 26 Units, Subcutaneous, Nightly [...] CAD, CKD, HLD, T2DM, Afib presented to [facility] for CABG on 03/22. 24 hr [...] CAD, CKD, HLD, T2DM, Afib presented to [facility] for CABG on 03/22. Endocrine Diabetes [...] via secure chat or page us at [phone] during 7a-7p, Sun-Sat. For after hours, weekends, holidays please contact the on-call Endocrine Fellow. Thank you for allowing us to participate in the care of this patient. * Consults - Beverly Ferguson RN - 03/25/2025 10:00 PM EDT Primary team d/c IV RANCH HAND LIVESTOCK earlier today. * Care Plan - Zaida [...] CAD, CKD, HLD, T2DM, Afib presented to [facility] for CABG on 03/22. 24 hr [...] CAD, CKD, HLD, T2DM, Afib presented to [facility] for CABG on 03/22. Endocrine Diabetes [...] via secure chat or page us at [phone] during 7a-7p, Sun-Sat. For after hours, weekends, [...] Sternotomy, coronary artery bypass grafting, endoscopic vein dvrmtxx-ybfgu-hjrocik saphenous. Vein the ascending aorta the 1st [...] aspects of care Leukocytosis (resolved) Cardiothoracic Surgery [phone] * Progress Notes - Michelle Branham Tasha - 03/25/2025 12:10 PM EDT [...] Transfer Exam: Sit to stand Level of [place]: Contact guard Physical/Nonphysical Assist: Supervision, Verbal Cues, Minimal cues Assistive Device: Rollator Transfer Exam: Stand to Sit Level of [place]: Contact guard Physical/Nonphysical Assist: Minimal cues, Supervision, [...] depression, for respiratory rate < 10 IV RANCH HAND LIVESTOCK hydromorphone 1mg/ml 0.2mg q6min - CABG. Takes tramadol and gabapentin at home Blood pressure 119/50, pulse 89, temperature 37.5 ??C (99.5 ??F), temperature source Oral, resp. rate 22, height 1.829 m (6'), weight 108 kg (238 lb 8.6 oz), SpO2 93%. Please Contact Acute Pain Service with any additional questions or concerns via Epic Secure Chat orpage [phone]. * Progress Notes - Katlin Jaffe, SURGICAL INSTRUMENT TECHNICIAN - 03/25/2025 10:38 AM EDT Pain Consult Follow-Up Note Reason for Follow-up: Acute Pain Condition, Chronic Pain Condition, Multimodal pain management, RANCH HAND LIVESTOCK- Transition Off, and Postoperative Pain Control Subjective: Lizandro Gr is a 45 y.o. male admitted on 03/22/2025 with PMH HTN, HLD, DM2 with neuropathy,CKD3 and GERD who presented to [facility] for planned CABG. Post op he was started on the typical post-CABG pain regimen with MMPC Gabapentin, Robaxin, Lidocaine patch as well as opioids with Dilaudid and Oxycodone which was unsuccessful in treating his pain so Inpatient Pain Service was consulted for RANCH HAND LIVESTOCK which was started on 03/23/25. Today, primary team plans to transition of dilaudid IV RANCH HAND LIVESTOCK and requests PO recommendations for oral dilaudid given oxycodone being ineffective for him previously. Mr. Gr is seen sitting [facility]. He is calm and relaxed on my visit. He reports the dilaudid IV RANCH HAND LIVESTOCK has worked well to control his pain. I discussed with him the plan to transition off the IV RANCH HAND LIVESTOCK onto a oral pain regimen with dilaudid. [...] 300 mg Oral BID HYDROmorphone 1 mg/mL RANCH HAND LIVESTOCK (naive protocol) no dose Intravenous Continuous HYDROmorphone [...] Wean Plan Created, Pain TreatmentPreferences Discussed, and RANCH HAND LIVESTOCK- Transition off Assessment: Mr. Gr has acute on chronic, opioid tolerant, well controlled somatic pain s/p CABG. Post op he was started on MMPC and PO/IV PRN opioids; however, these were unsuccessful in treating his pain so a Dilaudid IV RANCH HAND LIVESTOCK was started on 03/23/25. Primary team has requested PO recommendations with oral dilaudid with plans to transition off RANCH HAND LIVESTOCK today. Recommendations: - Discontinue IV RANCH HAND LIVESTOCK and start: - Dilaudid 4 mg PO Q4H PRN - Give first dose 30 minutes prior to discontinuing IV RANCH HAND LIVESTOCK - Dilaudid 0.5 mg IV Q4H PRN [...] control - Pain Team consulted for IV RANCH HAND LIVESTOCK - Scheduled tylenol, robaxin, gabapentin - 03/25 - discontinue IV RANCH HAND LIVESTOCK, Pain to provide PO recommendations * Jh On[facility]IR - Katlin Chaney RN - 03/25/2025 8:20 AM EDT Images from the original note were not included. [id number] Recovery From Heart Surgery: The First Few [...] stop Last Reviewed Date: 2024 00:00:00 ?? [id number] [employer]. All rights reserved. This information is not [...] ? Natural and processed cheeses such as [place] Islander, blue, mozzarella, and Moldovan Meat and protein substitutes Special instructions: ? [...] ? Oat meal ? Whole wheat ? [place] ? Pumpernickel ? White ? Raisin ? Crackers prepared without butter, lard, coconut, or palm oil ? Dry cereals that contain allowed fats ? Rice and pasta prepared with allowed fats ? Egg noodles (limit to ?? cup per day) ? Khmer ? Armenian ? Bermudian muffins ? Pancakes, waffles, biscuits, and cornbread [...] Any cereal prepared with saturated fat ? Macedonian noodles ? Rice and pasta prepared with eggs, cream, or high fat cheese Fruits Choose: ? Any fresh, frozen, canned, or dried fruit or juice ? Avocado Vegetables Choose: ? Any fresh, frozen, or canned vegetables ? Potatoes prepared with allowed fat ? Olives (limit to 10 small or 5 large per day) Avoid: ? Buttered, creamed, or fried vegetables ? Qfck-m-thjgp, commercially made ? Vegetables prepared in a [...] sizes are listed below: ? Nuts: The [place] Islander Heart Association recommends including 5 servings of [...] avocado oil, etc.: 1 tablespoon o The [place]er Heart Association recommends limiting oils to 3 [...] ingredients ? Sorbet ? Ice milk ? Santa ? Gum drops ? Jelly beans ? [...] saturated fats, cheese, and/or egg yolks ? Lincoln chips ? Potato chips and other snack [...] much from the food you eat. Use [employer] to Help Build Your Meals The Fash[employer] can help you plan and track your meals and activity. You can look up individual foods to see or compare their nutritional value. You can get guidelines for what and how much you should eat. You can compare your food choices. And you can assess personal physical activities and see ways you can improve. Go to www.choosemyplate.gov/Safe Shipping Inspectorscker/. Eating Heart-Healthy Food: Using the DASH Plan [...] from the original note were not included. 52726 Eating Heart-Healthy Foods Eating has a big [...] judy. Last Reviewed Date: 2022 00:00:00 ?? [id number] [employer]. All rights reserved. This information is not intended as a substitute for professional medical care. Always follow your healthcare professional's instructions. * [facility] - Katlin Chaney RN - 03/25/2025 8:20 AM EDT Images from the original note were not included. [address]7360 After Bypass Surgery: Reaching, Bending, and Lifting [...] your shoulders and hips in line. ? wind projects supervisor the object and hold it close [...] directions. Last Reviewed Date: 2024 00:00:00 ?? [id number] The [employer]. All rights reserved. This information is not intended as a substitute for professional medical care. Always follow your healthcare professional's instructions. * Jh Horton - Katlin Chaney RN - 03/25/2025 8:20 AM EDT Images from the original note were not included. 27022 After Bypass Surgery: Getting Up and Out [...] do. Last Reviewed Date: 2024 00:00:00 ?? [id number] The [employer]. All rights reserved. This information is not intended as a substitute for professional medical care. Always follow your healthcare professional's instructions. * Progress Notes - Shiavni Tan MD - 03/25/2025 8:18 AM EDT Procedures 03/25/25 Lizandro Gr HPI Lizandro Gr is a 45 y.o. male who presents with CAD (coronary artery disease). If applicable, patient is s/p Procedure(s) and Anesthesia Type: * CABG, 2 OR MORE VESSELS - General. Patient is 3 Days Post-Op with Cardiothoracic Surgery. Past 24 hours: PM: NAEON. AM: HDS on 4L NC. Transition from RANCH HAND LIVESTOCK to oral regimen. DC central line. No [...] 19 Fr. 03/22/25 1120 Leg 2 GCS: [place] Coma Scale Score: 15 Review of Systems [...] round, and reactive to light. Neck: Comments: [facility] CV Cardiovascular: Pulses: Normal pulses. Heart sounds: [...] cooperative. Results Review {Vanishing Link Review Results :[id number] I have reviewed the latest lab and [...] 7.2 (H) <5.7 % Final Atrial fibrillation ([facility]/HCC) Present on Admission: Unknown - In sinus [...] control - Pain Team consulted for IV RANCH HAND LIVESTOCK - Scheduled tylenol, robaxin, gabapentin - 03/25 - discontinue IV RANCH HAND LIVESTOCK, Pain to provide PO recommendations Non-Hospital Problems Microalbuminuria Type 2 diabetes mellitus with stage 2 chronic kidney disease, with long-term current use of insulin([facility]) Obesity (BMI 30-39.9) Shivani Tan [...] on the 1st floor of the [facility] near [facility] for a chest x-ray. Then go to [...] your incisions. Do NOT lift, push, or puller over 5 pounds for six weeks. Do NOT [...] Katlin Chaney CT Surgery Nurse Navigator at [phone] Friday through Friday 7am- 3:30pm [facility] [phone] after 3:30 pm, weekends and holidays - ask for the CT surgeon construction recruiter. * Progress Notes - Meera Ibarra RN - 03/25/2025 8:15 AM EDT Case Management Adult Progress Note Lizandro Gr 45 y.o. male CSN: [id number] Admission: 03/22/2025 5:35 AM Primary Problem: CAD (coronary artery disease) Anticipated Discharge Date: tbd Additional Comments: LISSY SILVESTRE reviewed chart and met with primary team to discuss plan of care. Patient is not medically ready for discharge at this time, transfer to telemetry. LISSY SILVESTRE will continue to follow. Update: CM placed rollator referral with [facility]. Meera Ibarra RN * Progress [...] statin, beta daniel -mmpc, attempt wean off animal treatment investigator -po diuresis -remove leg drain and pacing [...] BID heparin (porcine), 5,000 Units, Subcutaneous, q8h COUNTS INCLUDE 234 BEDS AT THE [facility] insulin glargine-yfgn, 20 Units, Subcutaneous, Nightly [...] mg with IVPCA. Encouraged patient to use RANCH HAND LIVESTOCK button to help with pain control. Follow-Up: Follow-Up: Will continue to monitor and adjust as needed. Acute Pain Service Comments: Pain Service comments: Will continue RANCH HAND LIVESTOCK and/ or infusion until primary service decides it is appropriate to discontinue RANCH HAND LIVESTOCK and/ or infusion. * Care Plan - [...] CAD, CKD, HLD, T2DM, Afib presented to [facility] for CABG on 03/22. Endocrine Diabetes [...] CAD, CKD, HLD, T2DM, Afib presented to [facility] for CABG on 03/22. Endocrine Diabetes [...] management discussed with patient, family member, bedside transport analyst planning -Diabetes education: likely not needed -Follow-up [...] via secure chat or page us at [phone] during 7a-7p, Friday-Friday. For after hours please [...] tablet 650 mg 650 mg Oral q6h COUNTS INCLUDE 234 BEDS AT THE [facility] Musa Sargent, 650 mg at 03/24/25 1145 [...] injection 5,000 Units 5,000 Units Subcutaneous q8h COUNTS INCLUDE 234 BEDS AT THE [facility] Marquise Raygoza MD 5,000Units at 03/24/25 1408 HYDROmorphone 1 mg/mL RANCH HAND LIVESTOCK (naive protocol) Intravenous Continuous Fritz Mccracken MD [...] 500 mg Oral 4x daily Lisa Castro, SURGICAL INSTRUMENT TECHNICIAN 500 mg at 03/24/25 1408 metoprolol tartrate [...] mg 40 mg Oral Daily Lisa Castro, SURGICAL INSTRUMENT TECHNICIAN 40 mg at 03/24/25 0826 phosphorus (K [...] 24 Hrs: No acute events. On IV RANCH HAND LIVESTOCK. OOBC. OBJECTIVE All laboratory data, images, tracings, [...] Result Date: 03/24/2025 Interval removal of the Le Roy-Brea catheter. Otherwise no significant interval change. CRITICAL [...] Will send referral to patients preferred location, [facility]. [place] will contact Mr. Gr to discuss and [...] rehabilitation program. 2. Eligibility: CABG 3. Exceptions/exclusions: [facility] Cardiac Rehab Exclusions: None 4. Referral: [facility] Cardiac Rehab Referral: Patient will consider participating in a cardiac rehabilitation program. Patient was provided with contact information for the following program([facility] [place] [phone]. 5. Information sent: Information Sent: Appropriate information [...] control - Pain Team consulted for IV RANCH HAND LIVESTOCK - Restart home gabapentin when appropriate * [...] Right Radial 03/22/25 0847 Radial 2 GCS: [place] Coma Scale Score: 15 Review of Systems [...] round, and reactive to light. Neck: Comments: [facility] CVC Cardiovascular: Pulses: Normal pulses. Heart sounds: [...] cooperative. Results Review {Vanishing Link Review Results :[id number] I have reviewed the latest lab and [...] control - Pain Team consulted for IV RANCH HAND LIVESTOCK - Restart home gabapentin when appropriate Non-Hospital [...] 300 mg Oral BID HYDROmorphone 1 mg/mL RANCH HAND LIVESTOCK (naive protocol) no dose Intravenous Continuous HYDROmorphone [...] Medications Medication Name Dose Route Frequency IV RANCH HAND LIVESTOCK hydromorphone 1mg/ml 0.2mg q6min - CABG. Takes tramadol and gabapentin at home Blood pressure (!) 158/83, pulse 90, temperature (!) 38.4 ??C (101.1 ??F), temperature source Bladder, resp. rate 20, height 1.829 m (6'), weight 103 kg (227 lb 15.3 oz), SpO2 93%. Please Contact Acute Pain Service with any additional questions or concerns via [facility] [email or web address]. * Consults - Katie Rodrigez RN - [...] reports that pain is much improved with RANCH HAND LIVESTOCK. Encouraged patient to push RANCH HAND LIVESTOCK button more frequently for better pain control to make coughing and deep breathing easier. Epidural Site: n/a Follow-Up: Follow-Up: Acute Pain Service will continue to follow and adjust as needed. Visit Type: Routine Current Analgesic Treatments: Inpatient Analgesics Active Medications Medication Name Dose Route Frequency acetaminophen (Tylenol) tablet 650 mg 650 mg Oral q6h COUNTS INCLUDE 234 BEDS AT THE [facility] gabapentin (Neurontin) capsule 300 mg 300 mg Oral BID HYDROmorphone 1 mg/mL RANCH HAND LIVESTOCK (naive protocol) no dose Intravenous Continuous HYDROmorphone [...] depression, for respiratory rate < 10 IV RANCH HAND LIVESTOCK hydromorphone 1mg/ml 0.2mg q6min - CABG. Takes tramadol and gabapentin at home Blood pressure (!) 158/83, pulse 83, temperature 37.6 ??C (99.7 ??F), temperature source Bladder, resp. rate 12, height 1.829 m (6'), weight 107 kg (236 lb 8.9 oz), SpO2 95%. Please Contact Acute Pain Service with any additional questions or concerns via [facility] [email or web address] [phone]. * Consults - Matilde Leon RD - 03/23/2025 3:03 PM EDTAssociated Order(s): IP CONSULT TO NUTRITION SERVICES Adult Nutrition Evaluation Note Lizandro Gr 45 y.o. male CSN: [id number] Room/Bed 213/213A Nutrition evaluation type: assessment Reason [...] 32.08 Weight Evaluation: Obese-Class 1 (BMI 30-34.9) [place] Body Weight (kg): 80.9 Percent [place] Body Weight: 130 Adjusted Body Weight (kg): 86.9 Estimated Needs: Kcal/ K-25 Kcal Provided: 3228-6106 Metabolic Cart Study Results: Current Nutrition Intake: Diet Order: Adult Diet Diet Texture: Clear liquid Percent Meals Eaten (%): establishing Diet Experience and Nutrition History: Diet Education Provided: Will monitor Pertinent home medications: Rastafari needs: Nutrition Focused Physical Exam: Unable to [...] x 4 03/22/2025 On mechanically assisted ventilation ([facility]) 03/22/2025 Electrolyte abnormality 03/22/2025 GERD (gastroesophageal reflux disease) 03/22/2025 Anemia 03/22/2025 Poorly 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 ([facility]) 03/22/2025 Atrial fibrillation ([facility]) 03/22/2025 Postoperative pain 03/22/2025 CAD [...] admission Level of Mobility: Ambulatory- community Mobility [place]: Independent gait without device History of Falls: [...] Transfer Exam: Sit to stand Level of [place]: Moderate assist (50% patient's effort) Physical/Nonphysical Assist: Verbal Cues, Maximal cues, Additional assist utilized for safety Assistive Device: Rollator Transfer Exam: Stand to Sit Level of [place]: Moderate assist (50% patient's effort) Physical/Nonphysical Assist: [...] to ambulation, pt administered pain relief via RANCH HAND LIVESTOCK pump. Pt then ambulated into hallway and required verbal cueing for upright posture, pacing, and proximity to AD. Pt did not require any rest breaks throughout mobility. Pt positioned for comfort at end of session. Standardized Assessments [facility] 6-Clicks Mobility Assessment Difficulty patient has turning [...] 3-5 steps with a railing?: A lot [facility] 6-Clicks Mobility Assessment Total : 15 No [...] 4 03/22/2025 On mechanically assisted ventilation ([facility]) 03/22/2025 Electrolyte abnormality 03/22/2025 GERD (gastroesophageal reflux disease) 03/22/2025 Anemia 03/22/2025 Poorly 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 ([facility]) 03/22/2025 Atrial fibrillation ([facility]) 03/22/2025 Postoperative pain 03/22/2025 CAD (coronary artery [...] admission Level of Mobility: Ambulatory- community Mobility [place]: Independent gait without device History of Falls: No ADL Performance: Independent Patient/Family Goals Statement To get better and go home. Objective Pain 8/10 sternal pain RN aware, pillow support provided and RANCH HAND LIVESTOCK used throughout. Delirium Screening [place] Agitation Sedation [...] Mobility Exam: Supine to Sit Level of [place]: (Not observed- found and left up in recliner) Transfers Transfer Exam: Sit to stand Level of [place]: Moderate assist (50% patient's effort) Physical/Nonphysical Assist: Verbal Cues, Maximal cues, Additional assist utilized for safety Assistive Device: Rollator Transfer Exam: Stand to Sit Level of [place]: Moderate assist (50% patient's effort) Physical/Nonphysical Assist: [...] continued education to improve carryover. Standardized Assessments [facility] 6-Click Daily Activities Help from Other: Don/Doff Regular Lower Body Clothings: A lot Help From Other: Bathing: A lot Help From Other: Toileting: A lot Help From Other: Don/Doff Upper Body Clothings: Little Help From Other: Grooming: Little Help From Other: Eating Meals: None [facility] 6 Click - Daily Activities Score: [...] 2:32 PM. * Progress Notes - Meera bIarra RN - 03/23/2025 1:22 PM EDT Case Management Adult Initial Progress Note Lizandro Gr 45 y.o. male CSN: [id number] Admission: 03/22/2025 5:35 AM Primary Problem: CAD (coronary artery disease) Scholastic Aptitude Test Grader reviewed chart and spoke with the patient at bedside to complete this Initial Case Management Assessment. PCP: David Iverson MD Emergency Contact: Extended Emergency Contact Information Primary Emergency Contact: Alissa Gr Mobile Relation: Daughter Preferred language: Bermudian Bricklayer Paving Brick needed? No Secondary Emergency Contact: VALENTINO [place] Mobile Relation: Significant Other Preferred language: Bermudian Bricklayer Paving Brick needed? No Insurance: Primary Visit Coverage Payer Plan Sponsor Code Group Number Group Name HU[employer] MEDICARE HUMANA GOLD PLUS [id number] Primary Visit Coverage Subscriber Subscriber ID Subscriber Name Subscriber N Subscriber Address [id number] LIZANDRO GR [id number] [place] [id number] Patient information: Primary Caregiver: Self Accompanied by/Relationship: significant other Support System: Immediate family Daily Living Activities: Functional Status: Independent Living Arrangements: Family Type of Residence: Private residence, Single Level [address] [facility] [id number] Current DME: Equipment Currently Used at Home: [...] Dialysis Services: n/a Living Will/Advance Directive/Power of Building Tech /Guardian: Unable to assess: No Have you [...] [place]. Has [employer] Medicare insurance and uses [facility] in [place]. Significant other to transport and assist as [...] control - Pain Team consulted for IV RANCH HAND LIVESTOCK - Restart home gabapentin when appropriate * [...] in afternoon. D/c Yrn. Edited by: Shivani Tna MD at 03/23/2025 1237 Lines/Drains/Tubes: Patient Lines/Drains/Airways [...] round, and reactive to light. Neck: Comments: [facility] CV Cardiovascular: Pulses: Normal pulses. Heart sounds: [...] cooperative. Results Review {Vanishing Link Review Results :[id number] I have reviewed the latest lab and [...] control - Pain Team consulted for IV RANCH HAND LIVESTOCK - Restart home gabapentin when appropriate Non-Hospital Problems Microalbuminuria Type 2 diabetes mellitus with stage 2 chronic kidney disease, with long-term current use of insulin([facility]) Obesity (BMI 30-39.9) Shivani Tan MD * [...] 300 mg Oral BID HYDROmorphone 1 mg/mL RANCH HAND LIVESTOCK (naive protocol) no dose Intravenous Continuous HYDROmorphone [...] Medications Medication Name Dose Route Frequency IV RANCH HAND LIVESTOCK hydromorphone 1mg/ml 0.2mg q6min - CABG. Takes tramadol and gabapentin at home Blood pressure (!) 158/83, pulse 71, temperature 37.3 ??C (99.1 ??F), temperature source Core, resp. rate 15, height 1.829 m (6'), weight 107 kg (236 lb 8.9 oz), SpO2 95%. Please Contact Acute Pain Service with any additional questions or concerns via [facility] [email or web address] [phone]. * Consults - Segun Tam RN - 03/23/2025 9:05 AM EDT RN Pain Assessment Lizandro Gr is a 45 y.o. male General Information: Referring Physician/ Service: Musa Rosado MD Patient History Reviewed: Yes Medical History: Principal Problem: CAD (coronary artery disease) Active Problems: CKD (chronic kidney disease) stage 2, GFR 60-89 ml/min Hypertension HLD (hyperlipidemia) S/P CABG x 4 On mechanically assisted ventilation ([facility]) Electrolyte abnormality GERD (gastroesophageal reflux disease) Anemia Poorly 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 ([facility]) Atrial fibrillation ([facility]) Postoperative pain Pertinent Home Medications: [...] day. Chavez Lambert MD Easy Touch Pen [place] 31G X 8 MM misc 04/18/23 Chavez [...] 300 mg Oral BID HYDROmorphone 1 mg/mL RANCH HAND LIVESTOCK (naive protocol) no dose Intravenous Continuous HYDROmorphone [...] Pain Service Plan: Plan: Place on IV RANCH HAND LIVESTOCK IV RANCH HAND LIVESTOCK request - CABG dilaudid 1 mg/ml RANCH HAND LIVESTOCK settin.2 mg q 6 minutes Basal rate: none Various methods of pain control discussed with patient and/ or family: Yes Discussed with doctor: Yes Please Contact Inpatient Pain Service with any additional questions or concerns via [employer] Secure Chat or page [phone]. [1] No Known Allergies [2] Social History Tobacco Use Smoking Status Never Passive exposure: Never Smokeless Tobacco Never * Consults - Loretta Horn APRN - 03/23/2025 8:37 AM EDT Pain Consult Note Reason for Consult: RANCH HAND LIVESTOCK request, Postoperative Pain Control , Chronic pain condition, Acute pain condition, and Multimodal pain management Ordering Provider: Musa Rosado MD History of Present Illness Lizandro Gr is a 45 y.o. male admitted on 03/22/2025 with PMH HTN, HLD, DM2 with neuropathy,CKD3 and GERD who presented to [facility] for planned CABG. Post op he was started on the typical post-CABG pain regimen with [facility] Gabapentin, Robaxin, Lidocaine patch as well as opioids with Dilaudid and Oxycodone. These have apparently been unsuccessful in treating his pain so Inpatient Pain Service was consulted for RANCH HAND LIVESTOCK. Today Mr. Gr is seen resting in [...] Neck: Comments: Right IJ MAC introducer with Le Roy Brea in place Musculoskeletal: Comments: Decreased ROM [...] kg/m?? Results Review {Vanishing Link Review Results :[id number] I have reviewed the latest lab and imaging results. Assessment and Plan/Recommendations Assessment & Plan CAD (coronary artery disease) CKD (chronic kidney disease) stage 2, GFR 60-89 ml/min Hypertension HLD (hyperlipidemia) S/P CABG x 4 On mechanically assisted ventilation (CMS/HCC) Electrolyte abnormality GERD (gastroesophageal reflux disease) Anemia 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) Atrial fibrillation (CMS/[facility]) Postoperative pain Multimodal pain management: non opioids, Non-pharmacologic therapies, Opioids Adjusted, Pain Treatment Preferences Discussed, and RANCH HAND LIVESTOCK- Started Assessment: Mr. Gr has acute on chronic, opioid tolerant, uncontrolled somatic pain s/p CABG. Post op he was started on MMPC and PO/IV PRN opioids; however, these were unsuccessful in treating his pain so he will be initiated on a Dilaudid IV RANCH HAND LIVESTOCK today. Recommendations: - Start Dilaudid IV RANCH HAND LIVESTOCK @ 0.2 mg Q6M lockout - Start [...] management or test interpretation with external provider(s): [employer] LISA discussed current pain and recommendations with primary provider for the day Dr. Tan via this note. Risk OTC drugs. Prescription drug management. Parenteral controlled substances. Drug therapy requiring intensive monitoring for toxicity. Risk Details: High risk due to initiation of Dilaudid IV RANCH HAND LIVESTOCK with potential for life threatening complications including overdose, respiratory compromise and/or . Loretta Horn, MSN, [facility] Department of Anesthesiology, Perioperative, Critical Care and [...] dose of paralytic was given at 1420. [facility] was consulted for ICU management post-operatively. Airway [...] jugular Right 03/22/25 0856 Internal jugular less than1 Last antibiotic: Patient recently received an antibiotic [...] present. Results Review {Vanishing Link Review Results :[id number] I have reviewed the latest lab and [...] kidney disease, with long-term current use of insulin([facility]) HLD (hyperlipidemia) Obesity (BMI 30-39.9) [...] (one) time each day. Easy Touch Pen [place] 31G X 8 MM misc hydroCHLOROthiazide (HYDRODiuril) [...] Sternotomy, coronary artery bypass grafting, endoscopic vein glrhszs-ipqxm-wejkbmf saphenous. -Vein the ascending aorta the 1st [...] stage 2 chronic kidney disease and hypertension ([facility]/HCC) Obesity (BMI 30-39.9) Procedure(s): Median Sternotomy, coronary artery bypass grafting, endoscopic vein cfchikb-tlqzf-pvcogzo saphenous. -Vein the ascending aorta the 1st [...] - Primary * Murali Gomez - Assisting Nutritionalist(s): * Marquise Raygoza MD - Resident - Assisting Murali Gomez PAC performed endoscopic vein harvest. Marquise Raygoza emptying PGY 5-was 1st assistant paralegal through the entire case Anesthesia: General ASA: [...] was induced, monitoring lines were placed, a Le Roy-Brea catheter was floated into position and a [...] examined no active bleeding was noted. 1-24 Armenian tube was placed in the patient's right pleural cavity, 1-28 Armenian cannula was placed in the left cavity, 1-36 Armenian mediastinal tube was placed. Chest tubes and [...] by Dr. Gonzalez in regards to recent [facility] with results indicating multi-vessel coronary artery [...] visit. Results Review {Vanishing Link Review Results :[id number] I have reviewed the latest lab and [...] Description 06/13/2025 11:40 AM EDT Office Visit [facility] Nephrology, Bone & Mineral Metabolism [address], [address] [place] [address] Sonia Medley MD [address] [place] [address] Pending Results Name Type Priority [...] Care Plan Autogenerated Problem No Zulay Syed, SURGICAL INSTRUMENT TECHNICIAN documented as of this encounter Procedures Procedure [...] UNSOLICITED RESULTS Routine 03/24/2025 11:44 AM EDT DC CRITICAL CARE, E/M 30-74 MINUTES Routine 03/24/2025 [...] UNSOLICITED RESULTS Routine 03/23/2025 1:57 PM EDT DC CRITICAL CARE, E/M 30-74 MINUTES Routine 03/23/2025 [...] 1 VIEW STAT 03/22/2025 4:46 PM EDT DC CRITICAL CARE, E/M 30-74 MINUTES Routine 03/22/2025 [...] UNSOLICITED RESULTS Routine 03/22/2025 7:57 AM EDT DC CABG, VEIN, THREE 03/22/2025 7:26 AM EDT Coronary artery disease due to calcified coronary lesion CKD (chronic kidney disease) stage 2, GFR 60-89 ml/min 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 POCT Glucose 176(H) 74 - 99 mg/dL [...] Comment 03/30/2025 8:34 AM EDT [facility]ALTH[facility]ARE LAB Automotive Glass Mechanic ID Katlin Cheung 03/30/2025 8:34 AM EDT HEALTHCARE LAB Device ID [id number] 03/30/2025 8:34 AM EDT [facility]ALTH[facility]ARE LAB Specimen Type POC Capillary 03/30/2025 8:34 AM EDT [facility] Blood Capillary blood specimen / Unknown 03/30/2025 8:32 AM EDT 03/30/2025 8:34 AM EDT Musa Rosado MD LAB POINT OF CARE TE ST DOCKED DEVICE UNSOLICITED RESULTS Final Result [facility] [address] [place] [address] * XR Chest 2 Views (03/30/2025 6:47 [...] 9:28 AM Final report signed by Dmitri Coffmna MD on 03/30/2025 9:29 AM us Ephraim Hicks SURGICAL INSTRUMENT TECHNICIAN IMG XR PROCEDURES Final Resu lt * (ABNORMAL) Basic Metabolic Panel, Plasma (03/30/2025 3:47 AM EDT) Glucose, Plasma 172(H) 74 - 99 mg/dL 03/30/2025 5:23 AM EDT [facility] BUN, Plasma 28(H) 7 - 21 mg/dL 03/30/2025 5:23 AM EDT [facility] Creatinine, Plasma 1.18 0.70 - 1.20 mg/dL 03/30/2025 5:23 AM EDT [facility] BUN/Creatinine Ratio 24 03/30/2025 5:23 AM EDT [facility] Sodium, Plasma 138 136 - 145 mmol/L 03/30/2025 5:23 AM EDT [facility] Potassium, Plasma 4.1 3.6 - 4.9 mmol/L 03/30/2025 5:23 AM EDT [facility] Chloride, Plasma 103 97 - 107 mmol/L 03/30/2025 5:23 AM EDT [facility] CO2, Plasma 23 22 - 29 mmol/L 03/30/2025 5:23 AM EDT [facility] Anion Gap 12 6 - 16 mmol/L 03/30/2025 5:23 AM EDT [facility] Total Calcium, Plasma 8.9 8.9 - 10.2 mg/dL 03/30/2025 5:23 AM EDT [facility] eGFRcr 78.5 mL/min/1.7 3m*2 03/30/2025 5:23 AM EDT [facility] Comment:Reported eGFRcr in m L/min/1.73m2 is based the CKD-EPI 2020 equation that does not use a race coefficient. Blood Venous blood specimen / Unknown Venipuncture / Unknown 03/30/2025 3:47 AM EDT 03/30/2025 4:48 AM EDT us Ephraim Hicks APRN LAB BLOOD ORDERABLES Final R esult [facility] [address] [place] [address] * (ABNORMAL) CBC W/O Differential (03/30/2025 3:47 AM EDT) WBC Count 7.54 3.70 - 10.30 10*3/uL LAB HEMATOLOGY METHOD 03/30/2025 4:58 AM EDT [facility] RBC Count 3.01(L) 4.60 - 6.10 10*6/uL LAB HEMATOLOGY METHOD 03/30/2025 4:58 AM EDT [facility] HGB 9.0(L) 13.7 - 17.5 g/dL LAB HEMATOLOGY METHOD 03/30/2025 4:58 AM EDT [facility] HCT 27.9(L) 40.0 - 51.0 % LAB HEMATOLOGY METHOD 03/30/2025 4:58 AM EDT [facility] Platelet Count 286 155 - 369 10*3/uL LAB HEMATOLOGY METHOD 03/30/2025 4:58 AM EDT [facility] MCV 93 79 - 98 fL LAB HEMATOLOGY METHOD 03/30/2025 4:58 AM EDT [facility] MCH 29.9 26.0 - 32.0 pg LAB HEMATOLOGY METHOD 03/30/2025 4:58 AM EDT [facility] MCHC 32.3 30.7 - 35.5 g/dL LAB HEMATOLOGY METHOD 03/30/2025 4:58 AM EDT [facility] RDW 14.3 11.5 - 14.5 % LAB HEMATOLOGY METHOD 03/30/2025 4:58 AM EDT [facility] MPV 10.7 8.8 - 12.5 fL LAB HEMATOLOGY METHOD 03/30/2025 4:58 AM EDT [facility] nRBC 0.4(H) <=0.0 per 100 WBCs LAB HEMATOLOGY METHOD 03/30/2025 4:58 AM EDT [facility] Blood Venous blood specimen / Unknown Venipuncture / Unknown 03/30/2025 3:47 AM EDT 03/30/2025 4:51 AM EDT us Ephraim Hicks APRN LAB BLOOD ORDERABLES Final R esult Performing Organization Address City/[facility]/ZIP Co de Phone Number [facility] [address] [place] [address] * (ABNORMAL) POCT glucose meter (03/29/2025 7:20 [...] Comment 03/29/2025 7:21 PM EDT [facility]ALTH[facility]ARE [facility] Automotive Glass Mechanic ID Guerline Arambula 03/29/20 7:21 PM EDT HEALTHCARE LAB Device ID [id number] 03/29/2025 7:21 PM EDT [facility] Specimen Type POC Capillary 03/29/2025 7:21 PM EDT [facility] Blood Capillary blood specimen / Unknown 03/29/2025 7:20 PM EDT 03/29/2025 7:21 PM EDT us Musa Rosado MD LAB POINT OF CARE TE ST DOCKED DEVICE UNSOLICITED RESULTS Final Result [facility] [address] [place] [address] * (ABNORMAL) POCT glucose meter (03/29/2025 5:33 [...] Comment 03/29/2025 5:35 PM EDT [facility] Automotive Glass Mechanic ID Kristie Sanon 025 5:35 PM EDT HEALTHCARE LAB Device ID [id number] 03/29/2025 5:35 PM EDT [facility] LAB Specimen Type POC Capillary 03/29/2025 5:35 PM EDT [facility] Blood Capillary blood specimen / Unknown 03/29/2025 5:33 PM EDT 03/29/2025 5:35 PM EDT Musa Rosado MD LAB POINT OF CARE TE ST DOCKED DEVICE UNSOLICITED RESULTS Final Result Performing Organization Address City/State/[facility] Co de Phone Number [facility]ALTH[facility]ARE LAB [address] [place] [address] * (ABNORMAL) POCT glucose meter (03/29/2025 12:29 PM EDT) [facility] POCT Glucose 213(H) 74 - 99 mg/dL [...] Comment 03/29/2025 12:30 PM EDT [facility]ALTH[facility]ARE LAB Automotive Glass Mechanic ID Kristie Sanon 025 12:30 PM EDT HEALTHCARE LAB Device ID [id number] 03/29/2025 12:30 PM EDT [facility]ARE LAB Specimen Type POC Capillary 03/29/2025 12:30 PM EDT [facility] Blood Capillary blood specimen / Unknown 03/29/2025 12:29 PM EDT 03/29/2025 12:30 PM EDT Musa Rosado MD LAB POINT OF CARE TE ST DOCKED DEVICE UNSOLICITED RESULTS Final Result [facility] [address] [place] [address] * (ABNORMAL) POCT glucose meter (03/29/2025 8:19 AM EDT) [facility] POCT Glucose 176(H) 74 - 99 mg/dL [...] for testing. Comment 03/29/2025 8:20 AM EDT [facility] Automotive Glass Mechanic ID Kristie Sanon 025 8:20 AM EDT HEALTHCARE LAB Device ID [id number] 03/29/2025 8:20 AM EDT [facility] Specimen Type POC Capillary 03/29/2025 8:20 AM EDT [facility] Blood Capillary blood specimen / Unknown 03/29/2025 8:19 AM EDT 03/29/2025 8:20 AM EDT Musa Rosado MD LAB POINT OF CARE TE ST DOCKED DEVICE UNSOLICITED RESULTS Final Result [facility] [address] [place] [address] * (ABNORMAL) POCT glucose meter (03/28/2025 8:02 PM EDT) [facility] POCT Glucose 179(H) 74 - 99 mg/dL [...] 03/28/2025 8:04 PM EDT [facility] Automotive Glass Mechanic ID Kathia Carl 03/28/2025 8:04 PM EDT HEALTHCARE LAB Device ID [id number] 03/28/2025 8:04 PM EDT [facility]ARE LAB Specimen Type POC Capillary 03/28/2025 8:04 PM EDT [facility] Blood Capillary blood specimen / Unknown 03/28/2025 8:02 PM EDT 03/28/2025 8:04 PM EDT us Musa Rosado MD LAB POINT OF CARE TE ST DOCKED DEVICE UNSOLICITED RESULTS Final Result Performing Organization Address City/[facility] Co de Phone Number [facility] [address] [place] [address] * (ABNORMAL) POCT glucose meter (03/28/2025 4:59 PM EDT) Pathologist [facility] POCT Glucose 164(H) 74 - [...] Comment 03/28/2025 5:00 PM EDT [facility]ARE [facility] Automotive Glass Mechanic ID Kristie Sanon 025 5:00 PM EDT HEALTHCARE LAB Device ID [id number] 03/28/2025 5:00 PM EDT [facility] LAB Specimen Type POC Capillary 03/28/2025 5:00 PM EDT [facility] Blood Capillary blood specimen / Unknown 03/28/2025 4:59 PM EDT 03/28/2025 5:00 PM EDT us Musa Rosado MD LAB POINT OF CARE TE ST DOCKED DEVICE UNSOLICITED RESULTS Final Result Performing Organization Address City/[facility]/ZIP Co de Phone Number [facility] [address] [place] [address] * (ABNORMAL) POCT glucose meter (03/28/2025 12:10 PM EDT) [facility] POCT Glucose 243(H) 74 - [...] Comment 03/28/2025 12:12 PM EDT [facility]ARE [facility] Automotive Glass Mechanic ID Kristie Sanon 025 12:12 PM EDT HEALTHCARE LAB Device ID [id number] 03/28/2025 12:12 PM EDT [facility] Specimen Type POC Capillary 03/28/2025 12:12 PM EDT [facility] Blood Capillary blood specimen / Unknown 03/28/2025 12:10 PM EDT 03/28/2025 12:12 PM EDT Musa Rosado MD LAB POINT OF CARE TE ST DOCKED DEVICE UNSOLICITED RESULTS Final Result Performing Organization Address City/State/[facility] Co de Phone Number [facility] [address] [place] [address] * (ABNORMAL) POCT glucose meter (03/28/2025 8:07 AM EDT) [facility] POCT Glucose 205(H) 74 - [...] 03/28/2025 8:09 AM EDT [facility] Automotive Glass Mechanic ID Kristie Sanon 025 8:09 AM EDT HEALTHCARE LAB Device ID [id number] 03/28/2025 8:09 AM EDT [facility]ARE LAB Specimen Type POC Capillary 03/28/2025 8:09 AM EDT [facility] Blood Capillary blood specimen / Unknown 03/28/2025 8:07 AM EDT 03/28/2025 8:09 AM EDT Musa Rosado MD LAB POINT OF CARE TE ST DOCKED DEVICE UNSOLICITED RESULTS Final Result [facility] [address] [place] [id number] * XR Chest 2 Views (03/28/2025 6:13 [...] on 03/28/2025 10:43 AM La Nena March SURGICAL INSTRUMENT TECHNICIAN IMG XR PROCEDURES Final Result * Magnesium (03/28/2025 4:35 AM EDT) Magnesium, Plasma 1.9 1.9 - 2.4 mg/dL 03/28/2025 5:18 AM EDT [facility] Blood Venous blood specimen / Unknown Venipuncture / Unknown 03/28/2025 4:35 AM EDT 03/28/2025 4:42 AM EDT us La Nena Ng Joaquim SURGICAL INSTRUMENT TECHNICIAN LAB BLOOD ORDERABLES Final Res ult [facility] [address] [place] [address] * (ABNORMAL) Comprehensive metabolic panel (03/28/2025 4:35 AM EDT) Glucose, Plasma 196(H) 74 - 99 mg/dL 03/28/2025 5:18 AM EDT [facility] BUN, Plasma 20 7 - 21 mg/dL 03/28/2025 5:18 AM EDT [facility] Creatinine, Plasma 1.13 0.70 - 1.20 mg/dL 03/28/2025 5:18 AM EDT [facility] BUN/Creatinine Ratio 18 03/28/2025 5:18 AM EDT [facility] Sodium, Plasma 134(L) 136 - 145 mmol/L 03/28/2025 5:18 AM EDT [facility] Potassium, Plasma 4.2 3.6 - 4.9 mmol/L 03/28/2025 5:18 AM EDT [facility] Chloride, Plasma 102 97 - 107 mmol/L 03/28/2025 5:18 AM EDT [facility] CO2, Plasma 22 22 - 29 mmol/L 03/28/2025 5:18 AM EDT [facility] Anion Gap 10 6 - 16 mmol/L 03/28/2025 5:18 AM EDT [facility] Total Calcium, Plasma 9.1 8.9 - 10.2 mg/dL 03/28/2025 5:18 AM EDT [facility] Total Protein 6.3 6.3 - 7.9 g/dL 03/28/2025 5:18 AM EDT [facility] Albumin, Plasma 3.6 3.5 - 5.2 g/dL 03/28/2025 5:18 AM EDT [facility] AST, Plasma 32 10 - 50 U/L 03/28/2025 5:18 AM EDT [facility] ALT, Plasma 35 10 - 50 U/L 03/28/2025 5:18 AM EDT [facility] Alkaline Phosphatase, Plasma 67 40 - 115 U/L 03/28/2025 5:18 AM EDT [facility] Total Bilirubin, Plasma 0.8 0.2 - 1.1 mg/dL 03/28/2025 5:18 AM EDT [facility] eGFRcr 82.7 mL/min/1.7 3m*2 03/28/2025 5:18 AM EDT [facility] Comment:Reported eGFRcr in m L/min/1.73m2 is based the CKD-EPI 2020 equation that does not use a race coefficient. Blood Venous blood specimen / Unknown Venipuncture / Unknown 03/28/2025 4:35 AM EDT 03/28/2025 4:42 AM EDT us La Nena March SURGICAL INSTRUMENT TECHNICIAN LAB BLOOD ORDERABLES Final Res ult [facility] [address] [place] [address] * (ABNORMAL) Hemogram (CBC) (03/28/2025 4:35 AM EDT) WBC Count 6.01 3.70 - 10.30 10*3/uL LAB HEMATOLOGY METHOD 03/28/2025 5:08 AM EDT [facility] RBC Count 2.89(L) 4.60 - 6.10 10*6/uL LAB HEMATOLOGY METHOD 03/28/2025 5:08 AM EDT [facility] HGB 8.8(L) 13.7 - 17.5 g/dL LAB HEMATOLOGY METHOD 03/28/2025 5:08 AM EDT [facility] HCT 26.6(L) 40.0 - 51.0 % LAB HEMATOLOGY METHOD 03/28/2025 5:08 AM EDT [facility] Platelet Count 218 155 - 369 10*3/uL LAB HEMATOLOGY METHOD 03/28/2025 5:08 AM EDT [facility] MCV 92 79 - 98 fL LAB HEMATOLOGY METHOD 03/28/2025 5:08 AM EDT [facility] MCH 30.4 26.0 - 32.0 pg LAB HEMATOLOGY METHOD 03/28/2025 5:08 AM EDT [facility] MCHC 33.1 30.7 - 35.5 g/dL LAB HEMATOLOGY METHOD 03/28/2025 5:08 AM EDT [facility] RDW 13.6 11.5 - 14.5 % LAB HEMATOLOGY METHOD 03/28/2025 5:08 AM EDT [facility] MPV 10.7 8.8 - 12.5 fL LAB HEMATOLOGY METHOD 03/28/2025 5:08 AM EDT [facility] nRBC 0.5(H) <=0.0 per 100 WBCs LAB HEMATOLOGY METHOD 03/28/2025 5:08 AM EDT [facility] Blood Venous blood specimen / Unknown Venipuncture / Unknown 03/28/2025 4:35 AM EDT 03/28/2025 4:43 AM EDT us La Nena March APRN LAB BLOOD ORDERABLES Final Res ult [facility] [address] [place] [address] * (ABNORMAL) POCT glucose meter (03/27/2025 8:18 [...] Comment 03/27/2025 8:20 PM EDT [facility]ARE LAB Automotive Glass Mechanic ID Overton, Mandy 03/27/2025 8:20 PM EDT HEALTHCARE LAB Device ID [id number] 03/27/2025 8:20 PM EDT [facility]ALTH[facility]ARE LAB Specimen Type POC Capillary 03/27/2025 8:20 PM EDT [facility] Blood Capillary blood specimen / Unknown 03/27/2025 8:18 PM EDT 03/27/2025 8:20 PM EDT us Musa Rosado MD LAB POINT OF CARE TE ST DOCKED DEVICE UNSOLICITED RESULTS Final Result Performing Organization Address City/[facility]/ZIP Co de Phone Number [facility]ARE [facility] [address] [place] [address] * (ABNORMAL) POCT glucose meter (03/27/2025 5:45 [...] for testing. Comment 03/27/2025 5:47 PM EDT [facility] Automotive Glass Mechanic ID Larry Maher 5:47 PM EDT [facility] Device ID [id number] 03/27/2025 5:47 PM EDT [facility] Specimen Type POC Capillary 03/27/2025 5:47 PM EDT [facility] Blood Capillary blood specimen / Unknown 03/27/2025 5:45 PM EDT 03/27/2025 5:47 PM EDT us Musa Rosado MD LAB POINT OF CARE TE ST DOCKED DEVICE UNSOLICITED RESULTS Final Result Performing Organization Address City/[facility]/ZIP Co de Phone Number [facility] [address] [place] [address] * (ABNORMAL) POCT glucose meter (03/27/2025 1:04 [...] Comment 03/27/2025 1:06 PM EDT [facility]ALTHCARE LAB Automotive Glass Mechanic ID Mary Jo Tracey 03/27/20 1:06 PM EDT [facility] Device ID [id number] 03/27/2025 1:06 PM EDT [facility] Specimen Type POC Capillary 03/27/2025 1:06 PM EDT [facility] Blood Capillary blood specimen / Unknown 03/27/2025 1:04 PM EDT 03/27/2025 1:06 PM EDT Musa Rosado MD LAB POINT OF CARE TE ST DOCKED DEVICE UNSOLICITED RESULTS Final Result Performing Organization Address [facility] Co de Phone Number [facility]ARE [facility] [address] [place] [address] * (ABNORMAL) POCT glucose meter (03/27/2025 8:42 [...] 03/27/2025 8:44 AM EDT [facility] Automotive Glass Mechanic ID Larry Maher 8:44 AM EDT HEALTHCARE LAB Device ID [id number] 03/27/2025 8:44 AM EDT [facility] Specimen Type POC Capillary 03/27/2025 8:44 AM EDT [facility] Blood Capillary blood specimen / Unknown 03/27/2025 8:42 AM EDT 03/27/2025 8:44 AM EDT Musa Rosado MD LAB POINT OF CARE TE ST DOCKED DEVICE UNSOLICITED RESULTS Final Result Performing Organization Address City/[facility]/ZIP Co de Phone Number [facility]ARE [facility] [address] [place] [address] * Magnesium (03/27/2025 5:02 AM EDT) Magnesium, Plasma 1.9 1.9 - 2.4 mg/dL 03/27/2025 5:49 AM EDT [facility] Blood Venous blood specimen / Unknown Venipuncture / Unknown 03/27/2025 5:02 AM EDT 03/27/2025 5:22 AM EDT us La Nena March SURGICAL INSTRUMENT TECHNICIAN LAB BLOOD ORDERABLES Final Res ult [facility] [address] [place] [address] * (ABNORMAL) Comprehensive metabolic panel (03/27/2025 5:02 AM EDT) Glucose, Plasma 200(H) 74 - 99 mg/dL 03/27/2025 5:49 AM EDT [facility] BUN, Plasma 18 7 - 21 mg/dL 03/27/2025 5:49 AM EDT [facility] Creatinine, Plasma 1.03 0.70 - 1.20 mg/dL 03/27/2025 5:49 AM EDT [facility] BUN/Creatinine Ratio 17 03/27/2025 5:49 AM EDT [facility] Sodium, Plasma 138 136 - 145 mmol/L 03/27/2025 5:49 AM EDT [facility] Potassium, Plasma 4.3 3.6 - 4.9 mmol/L 03/27/2025 5:49 AM EDT [facility] Chloride, Plasma 106 97 - 107 mmol/L 03/27/2025 5:49 AM EDT [facility] CO2, Plasma 22 22 - 29 mmol/L 03/27/2025 5:49 AM EDT [facility] Anion Gap 10 6 - 16 mmol/L 03/27/2025 5:49 AM EDT [facility] Total Calcium, Plasma 8.8(L) 8.9 - 10.2 mg/dL 03/27/2025 5:49 AM EDT [facility] Total Protein 6.4 6.3 - 7.9 g/dL 03/27/2025 5:49 AM EDT [facility] Albumin, Plasma 3.4(L) 3.5 - 5.2 g/dL 03/27/2025 5:49 AM EDT [facility] AST, Plasma 21 10 - 50 U/L 03/27/2025 5:49 AM EDT [facility] ALT, Plasma 21 10 - 50 U/L 03/27/2025 5:49 AM EDT [facility] Alkaline Phosphatase, Plasma 59 40 - 115 U/L 03/27/2025 5:49 AM EDT [facility] Total Bilirubin, Plasma 0.8 0.2 - 1.1 mg/dL 03/27/2025 5:49 AM EDT [facility] eGFRcr 92.4 mL/min/1.7 3m*2 03/27/2025 5:49 AM EDT [facility] Comment:Reported eGFRcr in m L/min/1.73m2 is based the CKD-EPI 2020 equation that does not use a race coefficient. Blood Venous blood specimen / Unknown Venipuncture / Unknown 03/27/2025 5:02 AM EDT 03/27/2025 5:22 AM EDT us La Nena March APRN LAB BLOOD ORDERABLES Final Res ult [facility] [address] [place] [address] * (ABNORMAL) Hemogram (CBC) (03/27/2025 5:02 AM EDT) WBC Count 5.04 3.70 - 10.30 10*3/uL LAB HEMATOLOGY METHOD 03/27/2025 5:37 AM EDT [facility] RBC Count 2.93(L) 4.60 - 6.10 10*6/uL LAB HEMATOLOGY METHOD 03/27/2025 5:37 AM EDT [facility] HGB 8.8(L) 13.7 - 17.5 g/dL LAB HEMATOLOGY METHOD 03/27/2025 5:37 AM EDT [facility] HCT 27.3(L) 40.0 - 51.0 % LAB HEMATOLOGY METHOD 03/27/2025 5:37 AM EDT [facility] Platelet Count 174 155 - 369 10*3/uL LAB HEMATOLOGY METHOD 03/27/2025 5:37 AM EDT [facility] MCV 93 79 - 98 fL LAB HEMATOLOGY METHOD 03/27/2025 5:37 AM EDT [facility] MCH 30.0 26.0 - 32.0 pg LAB HEMATOLOGY METHOD 03/27/2025 5:37 AM EDT [facility] MCHC 32.2 30.7 - 35.5 g/dL LAB HEMATOLOGY METHOD 03/27/2025 5:37 AM EDT [facility] [facility] RDW 13.7 11.5 - 14.5 % LAB HEMATOLOGY METHOD 03/27/2025 5:37 AM EDT [facility] MPV 10.6 8.8 - 12.5 fL LAB HEMATOLOGY METHOD 03/27/2025 5:37 AM EDT [facility] nRBC 0.6(H) <=0.0 per 100 WBCs LAB HEMATOLOGY METHOD 03/27/2025 5:37 AM EDT [facility] Blood Venous blood specimen / Unknown Venipuncture / Unknown 03/27/2025 5:02 AM EDT 03/27/2025 5:22 AM EDT us La Nena March SURGICAL INSTRUMENT TECHNICIAN LAB BLOOD ORDERABLES Final Res ult [facility] [address] [place] [address] * XR Chest 1 View (03/27/2025 4:58 [...] on 03/27/2025 10:17 AM La Nena March SURGICAL INSTRUMENT TECHNICIAN IMG XR PROCEDURES Final Result * (ABNORMAL) [...] Comment 03/27/2025 4:38 AM EDT [facility] [employer] ID Sheryl Veg[place]unuh 025 4:38 AM EDT [facility] Device ID [id number] 03/27/2025 4:38 AM EDT [facility]ARE LAB Specimen Type POC Capillary 03/27/2025 4:38 AM EDT [facility] Blood Capillary blood specimen / Unknown 03/27/2025 4:35 AM EDT 03/27/2025 4:38 AM EDT Musa Rosado MD LAB POINT OF CARE TE ST DOCKED DEVICE UNSOLICITED RESULTS Final Result Performing Organization Address City/[facility]/ZIP Co de Phone Number [facility]ALTHCARE LAB [address] [place] [address] * (ABNORMAL) POCT glucose meter (03/26/2025 8:20 PM EDT) Pathologist [facility] POCT Glucose 260(H) 74 - [...] for testing. Comment 03/26/2025 8:24 PM EDT [facility] Autom[employer] Glass [employer]ic ID Gary, [place] 025 8:24 PM EDT HEALTHCARE LAB Device ID [id number] 03/26/2025 8:24 PM EDT [facility] Specimen Type POC Capillary 03/26/2025 8:24 PM EDT [facility] Blood Capillary blood specimen / Unknown 03/26/2025 8:20 PM EDT 03/26/2025 8:24 PM EDT Musa Rosado MD LAB POINT OF CARE TE ST DOCKED DEVICE UNSOLICITED RESULTS Final Result Performing Organization Address City/[facility] Co de Phone Number [facility]ALTHCARE LAB [address] [place] [address] * (ABNORMAL) POCT glucose meter (03/26/2025 5:30 PM EDT) [facility] POCT Glucose 211(H) 74 - 99 mg/dL [...] 03/26/2025 5:34 PM EDT [facility] [employer] ID Tonja Olivares 5:34 PM EDT HE[facility]CARE LAB Device ID [id number] 03/26/2025 5:34 PM EDT [facility] LAB Specimen Type POC Capillary 03/26/2025 5:34 PM EDT [facility] Blood Capillary blood specimen / Unknown 03/26/2025 5:30 PM EDT 03/26/2025 5:34 PM EDT Musa Rosado MD LAB POINT OF CARE TE ST DOCKED DEVICE UNSOLICITED RESULTS Final Result Performing Organization Address City/[facility] Co de Phone Number [facility] [address] [place] [address] * (ABNORMAL) POCT glucose meter (03/26/2025 12:28 [...] Comment 03/26/2025 12:30 PM EDT [facility] [employer] Glass [employer]ic ID Tonja Olivares 12:30 PM EDT [facility] LAB Device ID [id number] 03/26/2025 12:30 PM EDT [facility]ARE LAB Specimen Type POC Capillary 03/26/2025 12:30 PM EDT [facility] Blood Capillary blood specimen / Unknown 03/26/2025 12:28 PM EDT 03/26/2025 12:30 PM EDT us Musa Rosado MD LAB POINT OF CARE TE ST DOCKED DEVICE UNSOLICITED RESULTS Final Result Performing Organization Address City/[facility]/ZIP Co de Phone Number [facility] [address] [place] [address] * (ABNORMAL) POCT glucose meter (03/26/2025 8:40 [...] Comment 03/26/2025 8:42 AM EDT [facility] Autom[employer] Glass Mechanic ID Tonja Olivares 8:42 AM EDT [facility] LAB Device ID [id number] 03/26/2025 8:42 AM EDT [facility] LAB Specimen Type POC Capillary 03/26/2025 8:42 AM EDT [facility] Blood Capillary blood specimen / Unknown 03/26/2025 8:40 AM EDT 03/26/2025 8:42 AM EDT Musa Rosado MD LAB POINT OF CARE TE ST DOCKED DEVICE UNSOLICITED RESULTS Final Result [facility] [address] [place] [address] * XR Chest 1 View (03/26/2025 5:53 [...] 76 <200 mg/dL 03/26/2025 4:55 AM EDT [facility] Comment: Cholesterol Reference Range (age >17 years): Desirable <200 mg/dL Borderline 200 to 239 mg/dL Undesirable >239 mg/dL HDL 22(L) >=40 mg/dL 03/26/2025 4:55 AM EDT [facility] Comment: HDL Cholesterol Reference Ranges (age >17 years): Female, acceptable > or = 50 mg/dL Male, acceptable > or = 40 mg/dL Triglycerides, Plasma 152(H) <150 mg/dL 03/26/2025 4:55 AM EDT [facility] Comment: Triglyceride Reference Range (age >17 years): Desirable: <150 mg/dL Borderline high: 150 to 199 mg/dL High: 200 to 499 mg/dL Very high: >499 mg/dL Increased risk of pancreatitis: >1000 mg/dL Cholesterol/HDL Ratio 3 03/26/2025 4:55 AM EDT [facility] LDL, Calculated 28 <100 mg/dL 4:55 AM EDT [facility] Comment: LDL Cholesterol Reference Range [...] 12 hours? No 03/26/2025 4:55 AM EDT [facility] Blood Venous blood specimen / Unknown Venipuncture / Unknown 03/26/2025 3:50 AM EDT 03/26/2025 4:26 AM EDT La Nena March SURGICAL INSTRUMENT TECHNICIAN LAB BLOOD ORDERABLES Final Res ult Performing Organization Address City/[facility]/ZIP Co de Phone Number [facility] [address] [place] [address] * Magnesium (03/26/2025 3:50 AM EDT) Magnesium, Plasma 2.1 1.9 - 2.4 mg/dL 03/26/2025 4:55 AM EDT [facility] Blood Venous blood specimen / Unknown Venipuncture / Unknown 03/26/2025 3:50 AM EDT 03/26/2025 4:26 AM EDT La Nena March APRN LAB BLOOD ORDERABLES Final Res ult Performing Organization Address City/[facility]/ZIP Co de Phone Number [facility] [address] [place] [address] * (ABNORMAL) Comprehensive metabolic panel (03/26/2025 3:50 AM EDT) Glucose, Plasma 268(H) 74 - 99 mg/dL 03/26/2025 4:55 AM EDT [facility] BUN, Plasma 24(H) 7 - 21 mg/dL 03/26/2025 4:55 AM EDT [facility] Creatinine, Plasma 1.06 0.70 - 1.20 mg/dL 03/26/2025 4:55 AM EDT [facility] BUN/Creatinine Ratio 23 03/26/2025 4:55 AM EDT [facility] Sodium, Plasma 138 136 - 145 mmol/L 03/26/2025 4:55 AM EDT [facility] Potassium, Plasma 4.0 3.6 - 4.9 mmol/L 03/26/2025 4:55 AM EDT [facility] Chloride, Plasma 104 97 - 107 mmol/L 03/26/2025 4:55 AM EDT [facility] CO2, Plasma 25 22 - 29 mmol/L 03/26/2025 4:55 AM EDT [facility] Anion Gap 9 6 - 16 mmol/L 03/26/2025 4:55 AM EDT [facility] Total Calcium, Plasma 8.3(L) 8.9 - 10.2 mg/dL 03/26/2025 4:55 AM EDT [facility] Total Protein 5.9(L) 6.3 - 7.9 g/dL 03/26/2025 4:55 AM EDT [facility] Albumin, Plasma 3.2(L) 3.5 - 5.2 g/dL 03/26/2025 4:55 AM EDT [facility] AST, Plasma 18 10 - 50 U/L 03/26/2025 4:55 AM EDT [facility] ALT, Plasma 14 10 - 50 U/L 03/26/2025 4:55 AM EDT [facility] Alkaline Phosphatase, Plasma 43 40 - 115 U/L 03/26/2025 4:55 AM EDT [facility] Total Bilirubin, Plasma 0.5 0.2 - 1.1 mg/dL 03/26/2025 4:55 AM EDT [facility] eGFRcr 89.3 mL/min/1.7 3m*2 03/26/2025 4:55 AM EDT [facility] Comment:Reported eGFRcr in m L/min/1.73m2 is based the CKD-EPI 2020 equation that does not use a race coefficient. Blood Venous blood specimen / Unknown Venipuncture / Unknown 03/26/2025 3:50 AM EDT 03/26/2025 4:26 AM EDT us La Nena Ng March SURGICAL INSTRUMENT TECHNICIAN LAB BLOOD ORDERABLES Final Res ult [facility] [address] [place] [address] * (ABNORMAL) Hemogram (CBC) (03/26/2025 3:50 AM EDT) WBC Count 4.53 3.70 - 10.30 10*3/uL LAB HEMATOLOGY METHOD 03/26/2025 4:36 AM EDT [facility] RBC Count 2.56(L) 4.60 - 6.10 10*6/uL LAB HEMATOLOGY METHOD 03/26/2025 4:36 AM EDT [facility] HGB 7.8(L) 13.7 - 17.5 g/dL LAB HEMATOLOGY METHOD 03/26/2025 4:36 AM EDT [facility] HCT 23.9(L) 40.0 - 51.0 % LAB HEMATOLOGY METHOD 03/26/2025 4:36 AM EDT [facility] Platelet Count 129(L) 155 - 369 10*3/uL LAB HEMATOLOGY METHOD 03/26/2025 4:36 AM EDT [facility] MCV 93 79 - 98 fL LAB HEMATOLOGY METHOD 03/26/2025 4:36 AM EDT [facility] MCH 30.5 26.0 - 32.0 pg LAB HEMATOLOGY METHOD 03/26/2025 4:36 AM EDT [facility] MCHC 32.6 30.7 - 35.5 g/dL LAB HEMATOLOGY METHOD 03/26/2025 4:36 AM EDT [facility] RDW 13.5 11.5 - 14.5 % LAB HEMATOLOGY METHOD 03/26/2025 4:36 AM EDT [facility] MPV 11.4 8.8 - 12.5 fL LAB HEMATOLOGY METHOD 03/26/2025 4:36 AM EDT [facility] nRBC 0.4(H) <=0.0 per 100 WBCs LAB HEMATOLOGY METHOD 03/26/2025 4:36 AM EDT [facility] Blood Venous blood specimen / Unknown Venipuncture / Unknown 03/26/2025 3:50 AM EDT 03/26/2025 4:27 AM EDT us La Nena March APRN LAB BLOOD ORDERABLES Final Res ult [facility] [address] [place] [address] * (ABNORMAL) POCT glucose meter (03/25/2025 9:52 [...] Comment 03/25/2025 9:54 PM EDT [facility] Autom[employer] ID Zaida Stearns 03/25/20 9:54 PM EDT HEALTHCARE LAB Device ID [id number] 03/25/2025 9:54 PM EDT [facility] Specimen Type POC Capillary 03/25/2025 9:54 PM EDT [facility] Blood Capillary blood specimen / Unknown 03/25/2025 9:52 PM EDT 03/25/2025 9:54 PM EDT us Musa Rosado MD LAB POINT OF CARE TE ST DOCKED DEVICE UNSOLICITED RESULTS Final Result Performing Organization Address City/[facility]/ZIP Co de Phone Number [facility]ARE [facility] [address] [place] [address] * (ABNORMAL) POCT glucose meter (03/25/2025 5:01 [...] Comment 03/25/2025 5:02 PM EDT [facility] Autom[employer] Glass [employer]ic ID Camille Espana 03/25/2025 5:02 PM EDT [facility]ARE LAB Device ID [id number] 03/25/2025 5:02 PM EDT [facility] Specimen Type POC Capillary 03/25/2025 5:02 PM EDT [facility] Blood Capillary blood specimen / Unknown 03/25/2025 5:01 PM EDT 03/25/2025 5:02 PM EDT us Musa Rosado MD LAB POINT OF CARE TE ST DOCKED DEVICE UNSOLICITED RESULTS Final Result Performing Organization Address [facility] de Phone Number HEALTHCARE LAB [address] [place] [address] * (ABNORMAL) POCT glucose meter (03/25/2025 10:59 AM EDT) [facility] POCT Glucose 206(H) 74 - 99 mg/dL [...] Comment 03/25/2025 11:00 AM EDT [facility] Autom[employer] Glass Mechanic ID Camille Espana 03/25/2025 11:00 AM EDT [facility]ARE LAB Device ID [id number] 03/25/2025 11:00 AM EDT [facility] Specimen Type POC Capillary 03/25/2025 11:00 AM EDT [facility] Blood Capillary blood specimen / Unknown 03/25/2025 10:59 AM EDT 03/25/2025 11:00 AM EDT us Musa Rosado MD LAB POINT OF CARE TE ST DOCKED DEVICE UNSOLICITED RESULTS Final Result Performing Organization Address City/[facility] Co de Phone Number [facility] [address] [place] [address] * (ABNORMAL) POCT glucose meter (03/25/2025 7:57 AM EDT) [facility] POCT Glucose 198(H) 74 - [...] Comment 03/25/2025 7:58 AM EDT [facility] Automotive Glass Mechanic ID Camille Espana 03/25/2025 7:58 AM EDT HE[facility]ARE LAB Device ID [id number] 03/25/2025 7:58 AM EDT [facility] Specimen Type POC Capillary 03/25/2025 7:58 AM EDT [facility] Blood Capillary blood specimen / Unknown 03/25/2025 7:57 AM EDT 03/25/2025 7:58 AM EDT us Musa Rosado MD LAB POINT OF CARE TE ST DOCKED DEVICE UNSOLICITED RESULTS Final Result Performing Organization Address City/[facility]/ZIP Co de Phone Number [facility] [address] [place] [address] * (ABNORMAL) Phosphorus, Plasma (03/25/2025 4:07 AM EDT) [facility] Phosphorus, Plasma 1.2(L) 2.5 - 4.5 mg/dL 03/25/2025 4:54 AM EDT [facility] Blood Venous blood specimen / Unknown Venipuncture / Unknown 03/25/2025 4:07 AM EDT 03/25/2025 4:20 AM EDT us Musa Rosado MD LAB BLOOD ORDERABLES Final R esult [facility] [address] [place] [address] * (ABNORMAL) Magnesium, Plasma (03/25/2025 4:07 AM EDT) Magnesium, Plasma 1.8(L) 1.9 - 2.4 mg/dL 03/25/2025 4:54 AM EDT [facility] Blood Venous blood specimen / Unknown Venipuncture / Unknown 03/25/2025 4:07 AM EDT 03/25/2025 4:20 AM EDT us Musa Rosado MD LAB BLOOD ORDERABLES Final R esult [facility] [address] [place] [address] * (ABNORMAL) CBC (03/25/2025 4:07 AM EDT) Pathologist [facility] WBC Count 6.01 3.70 - 10.30 10*3/uL LAB HEMATOLOGY METHOD 03/25/2025 4:30 AM EDT [facility] RBC Count 2.47(L) 4.60 - 6.10 10*6/uL LAB HEMATOLOGY METHOD 03/25/2025 4:30 AM EDT [facility] HGB 7.5(L) 13.7 - 17.5 g/dL LAB HEMATOLOGY METHOD 03/25/2025 4:30 AM EDT [facility] HCT 22.8(L) 40.0 - 51.0 % LAB HEMATOLOGY METHOD 03/25/2025 4:30 AM EDT [facility] Platelet Count 105(L) 155 - 369 10*3/uL LAB HEMATOLOGY METHOD 03/25/2025 4:30 AM EDT [facility] MCV 92 79 - 98 fL LAB HEMATOLOGY METHOD 03/25/2025 4:30 AM EDT [facility] MCH 30.4 26.0 - 32.0 pg LAB HEMATOLOGY METHOD 03/25/2025 4:30 AM EDT [facility] MCHC 32.9 30.7 - 35.5 g/dL LAB HEMATOLOGY METHOD 03/25/2025 4:30 AM EDT [facility] RDW 13.4 11.5 - 14.5 % LAB HEMATOLOGY METHOD 03/25/2025 4:30 AM EDT [facility] MPV 11.3 8.8 - 12.5 fL LAB HEMATOLOGY METHOD 03/25/2025 4:30 AM EDT [facility] nRBC 0.0 <=0.0 per 100 WBCs LAB HEMATOLOGY METHOD 03/25/2025 4:30 AM EDT [facility] Blood Venous blood specimen / Unknown Venipuncture / Unknown 03/25/2025 4:07 AM EDT 03/25/2025 4:23 AM EDT us Musa Rosado MD LAB BLOOD ORDERABLES Final R esult [facility] [address] [place] [address] * (ABNORMAL) Basic metabolic panel (03/25/2025 4:07 AM EDT) Glucose, Plasma 183(H) 74 - 99 mg/dL 03/25/2025 4:54 AM EDT [facility] BUN, Plasma 22(H) 7 - 21 mg/dL 03/25/2025 4:54 AM EDT [facility] Creatinine, Plasma 1.04 0.70 - 1.20 mg/dL 03/25/2025 4:54 AM EDT [facility] BUN/Creatinine Ratio 21 03/25/2025 4:54 AM EDT [facility] Sodium, Plasma 136 136 - 145 mmol/L 03/25/2025 4:54 AM EDT [facility] Potassium, Plasma 4.3 3.6 - 4.9 mmol/L 03/25/2025 4:54 AM EDT [facility] Chloride, Plasma 101 97 - 107 mmol/L 03/25/2025 4:54 AM EDT [facility] CO2, Plasma 26 22 - 29 mmol/L 03/25/2025 4:54 AM EDT [facility] Anion Gap 9 6 - 16 mmol/L 03/25/2025 4:54 AM EDT [facility] Total Calcium, Plasma 8.2(L) 8.9 - 10.2 mg/dL 03/25/2025 4:54 AM EDT [facility] eGFRcr 91.4 mL/min/1.7 3m*2 03/25/2025 4:54 AM EDT [facility] Comment:Reported eGFRcr in m L/min/1.73m2 is based the CKD-EPI 2020 equation that does not use a race coefficient. Blood Venous blood specimen / Unknown Venipuncture / Unknown 03/25/2025 4:07 AM EDT 03/25/2025 4:20 AM EDT Musa Rosado MD LAB BLOOD ORDERABLES Final R esult [facility] [address] [place] [address] * XR Chest 1 View (03/25/2025 2:52 [...] for testing. Comment 03/24/2025 9:06 PM EDT [facility] Autom[employer] Glass [employer]ic ID [email or web address] 03/24/2025 9:06 PM EDT [facility] Device ID [id number] 03/24/2025 9:06 PM EDT [facility] Specimen Type POC Capillary 03/24/2025 9:06 PM EDT [facility] Blood Capillary blood specimen / Unknown 03/24/2025 9:05 PM EDT 03/24/2025 9:06 PM EDT us Musa Rosado MD LAB POINT OF CARE TE ST DOCKED DEVICE UNSOLICITED RESULTS Final Result Performing Organization Address City/State/[facility] Co de Phone Number HEALTHCARE LAB [address] [place] [id number] * (ABNORMAL) POCT glucose meter (03/24/2025 4:19 [...] Comment 03/24/2025 4:20 PM EDT [facility] Automotive Glass Mechanic ID Beverly Alonso 03/24/2025 4:20 PM EDT [facility] Device ID [id number] 03/24/2025 4:20 PM EDT [facility]ALTH[facility]ARE LAB Specimen Type POC Arterial 03/24/2025 4:20 PM EDT [facility] Blood Arterial blood specimen / Unknown 03/24/2025 4:19 PM EDT 03/24/2025 4:20 PM EDT us Musa Rosado MD LAB POINT OF CARE TE ST DOCKED DEVICE UNSOLICITED RESULTS Final Result Performing Organization Address City/[facility]/ZIP Co de Phone Number [facility] [address] [place] [address] * (ABNORMAL) POCT glucose meter (03/24/2025 11:44 [...] Comment 03/24/2025 11:46 AM EDT [facility] Automotive Glass Mechanic ID Beverly Alonso 03/24/2025 11:46 AM EDT HEALTHCARE LAB Device ID [id number] 03/24/2025 11:46 AM EDT [facility]ARE LAB Specimen Type POC Arterial 03/24/2025 11:46 AM EDT [facility] Blood Arterial blood specimen / Unknown 03/24/2025 11:44 AM EDT 03/24/2025 11:46 AM EDT us Musa Rosado MD LAB POINT OF CARE TE ST DOCKED DEVICE UNSOLICITED RESULTS Final Result Performing Organization Address City/[facility]/ZIP Co de Phone Number [facility] [address] [place] [address] * DC CRITICAL CARE, E/M 30-74 MINUTES (03/24/2025 11:33 [...] for testing. Comment 03/24/2025 8:21 AM EDT [facility] [employer]ic ID Beverly Alonso 03/24/2025 8:21 AM EDT [facility] Device ID [id number] 03/24/2025 8:21 AM EDT HEALTHCARE LAB Specimen Type POC Arterial 03/24/2025 8:21 AM EDT [facility] Blood Arterial blood specimen / Unknown 03/24/2025 7:45 AM EDT 03/24/2025 8:21 AM EDT us Musa Rosado MD LAB POINT OF CARE TE ST DOCKED DEVICE UNSOLICITED RESULTS Final Result [facility] [address] [place] [address] * (ABNORMAL) POCT glucose meter (03/24/2025 5:56 AM EDT) Pathologist [facility] POCT Glucose 146(H) 74 - 99 mg/dL [...] for testing. Comment 03/24/2025 5:58 AM EDT [facility] [employer] Glass Mechanic ID Yuri Diggs 03/24/2025 5:58 AM EDT [facility] Device ID [id number] 03/24/2025 5:58 AM EDT [facility] Specimen Type POC Capillary 03/24/2025 5:58 AM EDT [facility] Blood Capillary blood specimen / Unknown 03/24/2025 5:56 AM EDT 03/24/2025 5:58 AM EDT Musa Rosado MD LAB POINT OF CARE TE ST DOCKED DEVICE UNSOLICITED RESULTS Final Result [facility] [address] [place] [address] * (ABNORMAL) POCT glucose meter (03/24/2025 3:40 AM EDT) [facility] POCT Glucose 180(H) 74 - 99 mg/dL [...] 03/24/2025 3:41 AM EDT [facility] [employer] Glass Mechanic ID Yuri Diggs 03/24/2025 3:41 AM EDT HEALTHCARE LAB Device ID [id number] 03/24/2025 3:41 AM EDT [facility] Specimen Type POC Capillary 03/24/2025 3:41 AM EDT [facility] Blood Capillary blood specimen / Unknown 03/24/2025 3:40 AM EDT 03/24/2025 3:41 AM EDT Musa Rosado MD LAB POINT OF CARE TE ST DOCKED DEVICE UNSOLICITED RESULTS Final Result [facility] [address] [place] [address] * XR Chest 1 View (03/24/2025 3:14 AM EDT) Anatomical Region Laterality Modality Chest Digital Radiogra phy Impressions 03/24/2025 9:52 AM EDT Interval removal of the Le Roy-Brea catheter. Otherwise no significant interval change. CRITICAL RESULT: No. COMMUNICATION: Per this written report. Drafted by Milli Elkins MD on 03/24/2025 9:51 AM Final report signed by Milli Elkins MD on 03/24/2025 9:52 AM Narrative 03/24/2025 9:52 AM EDT CLINICAL INDICATION: Post-Op Cardiac Surgery TECHNIQUE: Single AP view of chest. COMPARISON: One day prior FINDINGS: Interval removal of the Le Roy-Brea catheter. The rest of the portal hardware [...] day prior FINDINGS: Interval removal of the Le Roy-Brea catheter. The rest of the portalhardware unchanged. The cardiac and mediastinal contours are unchanged. Nosizable pneumothorax. Small left pleural effusion similar to prior.Persistent bilateral perihilar and bibasal lung opacities may representatelectasis. No new lung consolidation. Persistent low lung volume. IMPRESSION: Interval removal of the Le Roy-Brea catheter. Otherwise no significantinterval change. CRITICAL RESULT: No. COMMUNICATION: Per this written report. Drafted by Milli Elkins MD on 03/24/2025 9:51 AM Final report signed by Milli Elkins MD on 03/24/2025 9:52 AM Musa Rosado MD IMG XR PROCEDURES Final Resu lt * (ABNORMAL) POCT glucose meter (03/24/2025 1:46 AM EDT) POCT Glucose 143(H) 74 - 99 mg/dL 03/24/2025 1:48 AM EDT [facility] Comment:Accuracy of a glucos e result [...] for testing. Comment 03/24/2025 1:48 AM EDT [facility] [employer] ID Yuri Diggs 03/24/2025 1:48 AM EDT [facility] Device ID [id number] 03/24/2025 1:48 AM EDT [facility] Specimen Type POC Capillary 03/24/2025 1:48 AM EDT [facility] Blood Capillary blood specimen / Unknown 03/24/2025 1:46 AM EDT 03/24/2025 1:48 AM EDT us Musa Rosado MD LAB POINT OF CARE TE ST DOCKED DEVICE UNSOLICITED RESULTS Final Result [facility] [address] [place] [id number] * (ABNORMAL) Blood gas, arterial (03/24/2025 12:08 AM EDT) pH, Arterial 7.42 7.35 - 7.45 LAB HEMATOLOGY METHOD 03/24/2025 12:18 AM EDT [facility] pCO2, Arterial 43 32 - 45 mmHg LAB HEMATOLOGY METHOD 03/24/2025 12:18 AM EDT [facility] pO2, Arterial 58(LL) 83 - 108 mmHg LAB HEMATOLOGY METHOD 03/24/2025 12:18 AM EDT [facility] SO2, Measured, Arterial 90(L) 94 - 98 % LAB HEMATOLOGY METHOD 03/24/2025 12:18 AM EDT [facility] Base Excess, Arterial 2.9 -2.0 - 3.0 mmol/L LAB HEMATOLOGY METHOD 03/24/2025 12:18 AM EDT [facility] Bicarbonate, Calculated, Arterial 28(H) 22 - 26 mmol/L LAB HEMATOLOGY METHOD 03/24/2025 12:18 AM EDT [facility] Hematocrit, Whole Blood 26.5(L) 40.0 - 51.0 % LAB HEMATOLOGY METHOD 03/24/2025 12:18 AM EDT [facility] Sodium, Whole Blood 138 136 - 145 mmol/L LAB HEMATOLOGY METHOD 03/24/2025 12:18 AM EDT [facility] Potassium, Whole Blood 4.2 3.6 - 4.9 mmol/L LAB HEMATOLOGY METHOD 03/24/2025 12:18 AM EDT [facility] Chloride, Whole Blood 104 97 - 107 mmol/L LAB HEMATOLOGY METHOD 03/24/2025 12:18 AM EDT [facility] Glucose, Whole Blood 161(H) 74 - 99 mg/dL LAB HEMATOLOGY METHOD 03/24/2025 12:18 AM EDT [facility] Ionized Calcium, Whole Blood 4.6 4.6 - 5.1 mg/dL LAB HEMATOLOGY METHOD 03/24/2025 12:18 AM EDT [facility] Lactate, Arterial, Whole Blood 1.1 0.5 - 1.6 mmol/L LAB HEMATOLOGY METHOD 03/24/2025 12:18 AM EDT [facility] Blood Arterial blood specimen / Unknown Arterial Puncture / Unknown 03/24/2025 12:08 AM EDT 03/24/2025 12:14 AM EDT us Musa Rosado MD LAB BLOOD ORDERABLES Final R esult [facility] [address] [place] [address] * (ABNORMAL) Phosphorus, Plasma (03/24/2025 12:07 AM EDT) [facility] Phosphorus, Plasma 2.1(L) 2.5 - 4.5 mg/dL 03/24/2025 12:44 AM EDT [facility] Blood Arterial blood specimen / Unknown Venipuncture / Unknown 03/24/2025 12:07 AM EDT 03/24/2025 12:16 AM EDT Musa Rosado MD LAB BLOOD ORDERABLES Final R esult [facility] [address] [place] [address] * Magnesium, Plasma (03/24/2025 12:07 AM EDT) [facility] Magnesium, Plasma 2.1 1.9 - 2.4 mg/dL 03/24/2025 12:44 AM EDT [facility] Blood Arterial blood specimen / Unknown Venipuncture / Unknown 03/24/2025 12:07 AM EDT 03/24/2025 12:16 AM EDT us Musa Rosado MD LAB BLOOD ORDERABLES Final R esult [facility] [address] [place] [address] * (ABNORMAL) CBC (03/24/2025 12:07 AM EDT) [facility] WBC Count 11.14(H) 3.70 - 10.30 10*3/uL LAB HEMATOLOGY METHOD 03/24/2025 12:26 AM EDT [facility] RBC Count 2.80(L) 4.60 - 6.10 10*6/uL LAB HEMATOLOGY METHOD 03/24/2025 12:26 AM EDT [facility] HGB 8.5(L) 13.7 - 17.5 g/dL LAB HEMATOLOGY METHOD 03/24/2025 12:26 AM EDT [facility] HCT 26.3(L) 40.0 - 51.0 % LAB HEMATOLOGY METHOD 03/24/2025 12:26 AM EDT [facility] Platelet Count 121(L) 155 - 369 10*3/uL LAB HEMATOLOGY METHOD 03/24/2025 12:26 AM EDT [facility] MCV 94 79 - 98 fL LAB HEMATOLOGY METHOD 03/24/2025 12:26 AM EDT [facility] MCH 30.4 26.0 - 32.0 pg LAB HEMATOLOGY METHOD 03/24/2025 12:26 AM EDT [facility] MCHC 32.3 30.7 - 35.5 g/dL LAB HEMATOLOGY METHOD 03/24/2025 12:26 AM EDT [facility] RDW 14.1 11.5 - 14.5 % LAB HEMATOLOGY METHOD 03/24/2025 12:26 AM EDT [facility] MPV 11.4 8.8 - 12.5 fL LAB HEMATOLOGY METHOD 03/24/2025 12:26 AM EDT [facility] nRBC 0.0 <=0.0 per 100 WBCs LAB HEMATOLOGY METHOD 03/24/2025 12:26 AM EDT [facility] Blood Arterial blood specimen / Unknown Venipuncture / Unknown 03/24/2025 12:07 AM EDT 03/24/2025 12:17 AM EDT us Musa Rosado MD LAB BLOOD ORDERABLES Final R esult [facility] [address] [place] [address] * (ABNORMAL) Basic metabolic panel (03/24/2025 12:07 AM EDT) Glucose, Plasma 164(H) 74 - 99 mg/dL 03/24/2025 12:44 AM EDT [facility] BUN, Plasma 21 7 - 21 mg/dL 03/24/2025 12:44 AM EDT [facility] Creatinine, Plasma 1.13 0.70 - 1.20 mg/dL 03/24/2025 12:44 AM EDT [facility] BUN/Creatinine Ratio 03/24/2025 12:44 AM EDT [facility] Sodium, Plasma 137 136 - 145 mmol/L 03/24/2025 12:44 AM EDT [facility] Potassium, Plasma 4.4 3.6 - 4.9 mmol/L 03/24/2025 12:44 AM EDT [facility] Chloride, Plasma 104 97 - 107 mmol/L 03/24/2025 12:44 AM EDT [facility] CO2, Plasma 25 22 - 29 mmol/L 03/24/2025 12:44 AM EDT [facility] Anion Gap 8 6 - 16 mmol/L 03/24/2025 12:44 AM EDT [facility] Total Calcium, Plasma 8.4(L) 8.9 - 10.2 mg/dL 03/24/2025 12:44 AM EDT [facility] eGFRcr 82.7 mL/min/1.7 3m*2 03/24/2025 12:44 AM EDT [facility] Comment:Reported eGFRcr in m L/min/1.73m2 is based the CKD-EPI 2020 equation that does not use a race coefficient. Blood Arterial blood specimen / Unknown Venipuncture / Unknown 03/24/2025 12:07 AM EDT 03/24/2025 12:16 AM EDT us Musa Rosado MD LAB BLOOD ORDERABLES Final R esult [facility] [address] [place] [address] * (ABNORMAL) POCT glucose meter (03/23/2025 9:43 PM EDT) Pathologist [facility] POCT Glucose 176(H) 74 - 99 mg/dL [...] Comment 03/23/2025 9:44 PM EDT [facility] [employer] ID Dontae Yuri 03/23/2025 9:44 PM EDT [facility] LAB Device ID [id number] 03/23/2025 9:44 PM EDT [facility] Specimen Type POC Capillary 03/23/2025 9:44 PM EDT [facility] Blood Capillary blood specimen / Unknown 03/23/2025 9:43 PM EDT 03/23/2025 9:44 PM EDT Musa Rosado MD LAB POINT OF CARE TE ST DOCKED DEVICE UNSOLICITED RESULTS Final Result Performing Organization Address City/[facility] Co de Phone Number [facility] [address] [place] [address] * (ABNORMAL) POCT glucose meter (03/23/2025 7:55 PM EDT) [facility] POCT Glucose 140(H) 74 - 99 mg/dL [...] 03/23/2025 7:57 PM EDT [facility] [employer] ID Yuri Diggs 03/23/2025 7:57 PM EDT [facility] LAB Device ID [id number] 03/23/2025 7:57 PM EDT [facility] LAB Specimen Type POC Capillary 03/23/2025 7:57 PM EDT [facility] Blood Capillary blood specimen / Unknown 03/23/2025 7:55 PM EDT 03/23/2025 7:57 PM EDT us Musa Rosado MD LAB POINT OF CARE TE ST DOCKED DEVICE UNSOLICITED RESULTS Final Result Performing Organization Address City/[facility] Co de Phone Number [facility] [address] [place] [address] * (ABNORMAL) POCT glucose meter (03/23/2025 6:27 PM EDT) Pathologist [facility] POCT Glucose 163(H) 74 - 99 mg/dL [...] 03/23/2025 6:29 PM EDT [facility] [employer] ID Jose Alberto Collins 03/23/2025 6:29 PM EDT [facility] LAB Device ID [id number] 03/23/2025 6:29 PM EDT [facility] Specimen Type POC Arterial 03/23/2025 6:29 PM EDT [facility] Blood Arterial blood specimen / Unknown 03/23/2025 6:27 PM EDT 03/23/2025 6:29 PM EDT Musa Rosado MD LAB POINT OF CARE TE ST DOCKED DEVICE UNSOLICITED RESULTS Final Result Performing Organization Address City/State/[facility] Co de Phone Number [facility] [address] [place] [address] * (ABNORMAL) POCT glucose meter (03/23/2025 4:12 PM EDT) [facility] POCT Glucose 159(H) 74 - 99 mg/dL [...] 03/23/2025 4:14 PM EDT [facility] [employer] ID Jose Alberto Collins 03/23/2025 4:14 PM EDT [facility] Device ID [id number] 03/23/2025 4:14 PM EDT [facility] Specimen Type POC Arterial 03/23/2025 4:14 PM EDT [facility] Blood Arterial blood specimen / Unknown 03/23/2025 4:12 PM EDT 03/23/2025 4:14 PM EDT us Musa Rosado MD LAB POINT OF CARE TE ST DOCKED DEVICE UNSOLICITED RESULTS Final Result Performing Organization Address [facility] de Phone Number [facility] [address] [place] [address] * (ABNORMAL) POCT glucose meter (03/23/2025 1:57 [...] Comment 03/23/2025 1:58 PM EDT [facility] [employer] ID Jose Alberto Collins 03/23/2025 1:58 PM EDT [facility] LAB Device ID [id number] 03/23/2025 1:58 PM EDT [facility] LAB Specimen Type POC Arterial 03/23/2025 1:58 PM EDT [facility] Blood Arterial blood specimen / Unknown 03/23/2025 1:57 PM EDT 03/23/2025 1:58 PM EDT us Musa Rosado MD LAB POINT OF CARE TE ST DOCKED DEVICE UNSOLICITED RESULTS Final Result Performing Organization Address [facility] de Phone Number [facility] [address] [place] [address] * DC CRITICAL CARE, E/M 30-74 MINUTES (03/23/2025 12:34 [...] for testing. Comment 03/23/2025 12:00 PM EDT [facility] [employer] ID Jose Alberto Collins 03/23/2025 12:00 PM EDT [facility] Device ID [id number] 03/23/2025 12:00 PM EDT [facility] Specimen Type POC Arterial 03/23/2025 12:00 PM EDT [facility] Blood Arterial blood specimen / Unknown 03/23/2025 11:59 AM EDT 03/23/2025 12:00 PM EDT us Musa Rosado MD LAB POINT OF CARE TE ST DOCKED DEVICE UNSOLICITED RESULTS Final Result Performing Organization Address City/State/[facility] Co de Phone Number [facility] [address] [place] [address] * (ABNORMAL) POCT glucose meter (03/23/2025 10:06 [...] Comment 03/23/2025 10:07 AM EDT [facility] [employer] ID Jose Alberto Collins 03/23/2025 10:07 AM EDT [facility] LAB Device ID [id number] 03/23/2025 10:07 AM EDT [facility] Specimen Type POC Arterial 03/23/2025 10:07 AM EDT [facility] Blood Arterial blood specimen / Unknown 03/23/2025 10:06 AM EDT 03/23/2025 10:07 AM EDT Musa Rosado MD LAB POINT OF CARE TE ST DOCKED DEVICE UNSOLICITED RESULTS Final Result Performing Organization Address City/State/[facility] Co de Phone Number [facility] [address] [place] [address] * (ABNORMAL) POCT glucose meter (03/23/2025 8:01 AM EDT) [facility] POCT Glucose 142(H) 74 - 99 mg/dL [...] Comment 03/23/2025 8:03 AM EDT [facility] [employer] ID JoseA lberto Collins 03/23/2025 8:03 AM EDT [facility] LAB Device ID [id number] 03/23/2025 8:03 AM EDT [facility] Specimen Type POC Arterial 03/23/2025 8:03 AM EDT [facility] Blood Arterial blood specimen / Unknown 03/23/2025 8:01 AM EDT 03/23/2025 8:03 AM EDT us Musa Rosado MD LAB POINT OF CARE TE ST DOCKED DEVICE UNSOLICITED RESULTS Final Result [facility] [address] [place] [id number] * (ABNORMAL) Blood gas panel, arterial (03/23/2025 6:18 AM EDT) pH, Arterial 7.39 7.35 - 7.45 LAB HEMATOLOGY METHOD 03/23/2025 6:31 AM EDT [facility] pCO2, Arterial 41 32 - 45 mmHg LAB HEMATOLOGY METHOD 03/23/2025 6:31 AM EDT [facility] pO2, Arterial 75(L) 83 - 108 mmHg LAB HEMATOLOGY METHOD 03/23/2025 6:31 AM EDT [facility] SO2, Measured, Arterial 94 94 - 98 % LAB HEMATOLOGY METHOD 03/23/2025 6:31 AM EDT [facility] Base Excess, Arterial -0.2 -2.0 - 3.0 mmol/L LAB HEMATOLOGY METHOD 03/23/2025 6:31 AM EDT [facility] Bicarbonate, Calculated, Arterial 25 22 - 26 mmol/L LAB HEMATOLOGY METHOD 03/23/2025 6:31 AM EDT [facility] Hematocrit, Whole Blood 28.9(L) 40.0 - 51.0 % LAB HEMATOLOGY METHOD 03/23/2025 6:31 AM EDT [facility] Sodium, Whole Blood 141 136 - 145 mmol/L LAB HEMATOLOGY METHOD 03/23/2025 6:31 AM EDT [facility] Potassium, Whole Blood 4.1 3.6 - 4.9 mmol/L LAB HEMATOLOGY METHOD 03/23/2025 6:31 AM EDT [facility] Chloride, Whole Blood 108(H) 97 - 107 mmol/L LAB HEMATOLOGY METHOD 03/23/2025 6:31 AM EDT [facility] Glucose, Whole Blood 162(H) 74 - 99 mg/dL LAB HEMATOLOGY METHOD 03/23/2025 6:31 AM EDT [facility] Ionized Calcium, Whole Blood 4.4(L) 4.6 - 5.1 mg/dL LAB HEMATOLOGY METHOD 03/23/2025 6:31 AM EDT [facility] Lactate, Arterial, Whole Blood 1.9(H) 0.5 - 1.6 mmol/L LAB HEMATOLOGY METHOD 03/23/2025 6:31 AM EDT [facility] Blood Arterial blood specimen / Unknown Arterial Puncture / Unknown 03/23/2025 6:18 AM EDT 03/23/2025 6:27 AM EDT us Musa Rosado MD LAB BLOOD ORDERABLES Final R esult Performing Organization Address City/[facility]/ZIP Co de Phone Number [facility] [address] [place] [address] * (ABNORMAL) POCT glucose meter (03/23/2025 6:11 AM EDT) [facility] POCT Glucose 154(H) 74 - 99 mg/dL [...] Comment 03/23/2025 6:13 AM EDT [facility] [employer] ID Kelly Haynes 03/23/2025 6:13 AM EDT [facility]ALTH[facility]ARE LAB Device ID [id number] 03/23/2025 6:13 AM EDT [facility] Specimen Type POC Arterial 03/23/2025 6:13 AM EDT [facility] Blood Arterial blood specimen / Unknown 03/23/2025 6:11 AM EDT 03/23/2025 6:13 AM EDT us Musa Rosado MD LAB POINT OF CARE TE ST DOCKED DEVICE UNSOLICITED RESULTS Final Result Performing Organization Address City/[facility]/ZIP Co de Phone Number [facility] [address] [place] [address] * ECG Adult (03/23/2025 4:28 AM EDT) EKG DIAGNOSIS CLASS Abnormal MUSE ECG Ventricular Rate 77 BPM MUSE ECG Atrial Rate 77 BPM MUSE ECG DC Interval 150 ms MUSE ECG QRSD Interval 78 ms MUSE ECG QT Interval 366 ms MUSE ECG QTC Interval 414 ms MUSE ECG P Cashion 49 degrees MUSE ECG R Cashion -7 degrees MUSE ECG T Wave Cashion -4 degrees MUSE ECG Diagnosis Normal sinus rhythm MUSE ECG Diagnosis ST elevation, consider early repolarization , pericarditis, or injury MUSE ECG Diagnosis Nonspecific T wave abnormality MUSE ECG Diagnosis Need clinical information and correlation MUSE ECG Diagnosis MUSE ECG Diagnosis Confirmed by Jarett Steen ([id number]) on 03/23/2025 8:36:37 AM MUSE ECG 03/23/2025 4:28 AM EDT 03/23/2025 8:36 AM EDT us Musa Rosado MD ECG ORDERABLES Final Result Performing Organization Address City/[facility] Co de Phone Number MUSE ECG * [...] 03/23/2025 4:01 AM EDT [facility] [employer] ID Dallas Ojaswi 03/23/2025 4:01 AM EDT [facility]ALTH[facility]ARE LAB Device ID [id number] 03/23/2025 4:01 AM EDT [facility] Specimen Type POC Arterial 03/23/2025 4:01 AM EDT [facility] Blood Arterial blood specimen / Unknown 03/23/2025 3:59 AM EDT 03/23/2025 4:01 AM EDT Musa Rosado MD LAB POINT OF CARE TE ST DOCKED DEVICE UNSOLICITED RESULTS Final Result Performing Organization Address City/State/[facility] Co de Phone Number [facility] [address] [place] [address] * Phosphorus, Plasma (03/23/2025 3:56 AM EDT) Phosphorus, Plasma 3.7 2.5 - 4.5 mg/dL 03/23/2025 4:40 AM EDT [facility] Blood Arterial blood specimen / Unknown Arterial Puncture / Unknown 03/23/2025 3:56 AM EDT 03/23/2025 4:12 AM EDT Musa Rosado MD LAB BLOOD ORDERABLES Final R esult [facility] [address] [place] [address] * Magnesium, Plasma (03/23/2025 3:56 AM EDT) Magnesium, Plasma 2.2 1.9 - 2.4 mg/dL 03/23/2025 4:40 AM EDT [facility] Blood Arterial blood specimen / Unknown Arterial Puncture / Unknown 03/23/2025 3:56 AM EDT 03/23/2025 4:12 AM EDT Musa Rosado MD LAB BLOOD ORDERABLES Final R esult [facility] [address] [place] [address] * (ABNORMAL) Basic metabolic panel (03/23/2025 3:56 AM EDT) Glucose, Plasma 159(H) 74 - 99 mg/dL 03/23/2025 4:40 AM EDT [facility] BUN, Plasma 18 7 - 21 mg/dL 03/23/2025 4:40 AM EDT [facility] Creatinine, Plasma 1.09 0.70 - 1.20 mg/dL 03/23/2025 4:40 AM EDT [facility] BUN/Creatinine Ratio 17 03/23/2025 4:40 AM EDT [facility] Sodium, Plasma 140 136 - 145 mmol/L 03/23/2025 4:40 AM EDT [facility] Potassium, Plasma 4.2 3.6 - 4.9 mmol/L 03/23/2025 4:40 AM EDT [facility] Chloride, Plasma 109(H) 97 - 107 mmol/L 03/23/2025 4:40 AM EDT [facility] CO2, Plasma 22 22 - 29 mmol/L 03/23/2025 4:40 AM EDT [facility] Anion Gap 9 6 - 16 mmol/L 03/23/2025 4:40 AM EDT [facility] Total Calcium, Plasma 8.4(L) 8.9 - 10.2 mg/dL 03/23/2025 4:40 AM EDT [facility] eGFRcr 86.4 mL/min/1.7 3m*2 03/23/2025 4:40 AM EDT [facility] Comment:Reported eGFRcr in m L/min/1.73m2 is based the CKD-EPI 2020 equation that does not use a race coefficient. Blood Arterial blood specimen / Unknown Arterial Puncture / Unknown 03/23/2025 3:56 AM EDT 03/23/2025 4:12 AM EDT us Musa Rosado MD LAB BLOOD ORDERABLES Final R esult [facility] [address] [place] [address] * (ABNORMAL) Blood gas, arterial (03/23/2025 3:56 AM EDT) pH, Arterial 7.40 7.35 - 7.45 LAB HEMATOLOGY METHOD 03/23/2025 4:11 AM EDT [facility] pCO2, Arterial 40 32 - 45 mmHg LAB HEMATOLOGY METHOD 03/23/2025 4:11 AM EDT [facility] pO2, Arterial 67(L) 83 - 108 mmHg LAB HEMATOLOGY METHOD 03/23/2025 4:11 AM EDT [facility] SO2, Measured, Arterial 92(L) 94 - 98 % LAB HEMATOLOGY METHOD 03/23/2025 4:11 AM EDT [facility] Base Excess, Arterial 0.0 -2.0 - 3.0 mmol/L LAB HEMATOLOGY METHOD 03/23/2025 4:11 AM EDT [facility] Bicarbonate, Calculated, Arterial 25 22 - 26 mmol/L LAB HEMATOLOGY METHOD 03/23/2025 4:11 AM EDT [facility] Hematocrit, Whole Blood 29.5(L) 40.0 - 51.0 % LAB HEMATOLOGY METHOD 03/23/2025 4:11 AM EDT [facility] Sodium, Whole Blood 142 136 - 145 mmol/L LAB HEMATOLOGY METHOD 03/23/2025 4:11 AM EDT [facility] Potassium, Whole Blood 4.1 3.6 - 4.9 mmol/L LAB HEMATOLOGY METHOD 03/23/2025 4:11 AM EDT [facility] Chloride, Whole Blood 108(H) 97 - 107 mmol/L LAB HEMATOLOGY METHOD 03/23/2025 4:11 AM EDT [facility] Glucose, Whole Blood 154(H) 74 - 99 mg/dL LAB HEMATOLOGY METHOD 03/23/2025 4:11 AM EDT [facility] Ionized Calcium, Whole Blood 4.4(L) 4.6 - 5.1 mg/dL LAB HEMATOLOGY METHOD 03/23/2025 4:11 AM EDT [facility] Lactate, Arterial, Whole Blood 1.8(H) 0.5 - 1.6 mmol/L LAB HEMATOLOGY METHOD 03/23/2025 4:11 AM EDT [facility] Blood Arterial blood specimen / Unknown Arterial Puncture / Unknown 03/23/2025 3:56 AM EDT 03/23/2025 4:09 AM EDT us Musa Rosado MD LAB BLOOD ORDERABLES Final R esult [facility] [address] [place] [address] * Potassium, Plasma (03/23/2025 3:56 AM EDT) Potassium, Plasma 4.2 3.6 - 4.9 mmol/L 03/23/2025 4:40 AM EDT [facility] Blood Arterial blood specimen / Unknown Arterial Puncture / Unknown 03/23/2025 3:56 AM EDT 03/23/2025 4:12 AM EDT us Musa Rosado MD LAB BLOOD ORDERABLES Final R esult [facility] [address] [place] [address] * (ABNORMAL) Blood gas panel with oximetry, mixed venous (03/23/2025 3:53 AM EDT) pH, Mixed Venous 7.37 7.32 - 7.43 LAB HEMATOLOGY METHOD 03/23/2025 4:11 AM EDT [facility] pCO2, Mixed Venous 46 40 - 55 mmHg LAB HEMATOLOGY METHOD 03/23/2025 4:11 AM EDT [facility] pO2, Mixed Venous 34 25 - 40 mmHg LAB HEMATOLOGY METHOD 03/23/2025 4:11 AM EDT [facility] SO2, Measured, Mixed Venous 63(L) 65 - 80 % LAB HEMATOLOGY METHOD 03/23/2025 4:11 AM EDT [facility] Bicarbonate, Calculated, Mixed Venous 26 22 - 26 mmol/L LAB HEMATOLOGY METHOD 03/23/2025 4:11 AM EDT [facility] Base Excess, Mixed Venous 0.4 -2.0 - 3.0 mmol/L LAB HEMATOLOGY METHOD 03/23/2025 4:11 AM EDT [facility] Hematocrit, Whole Blood 30.3(L) 40.0 - 51.0 % LAB HEMATOLOGY METHOD 03/23/2025 4:11 AM EDT [facility] Sodium, Whole Blood 142 136 - 145 mmol/L LAB HEMATOLOGY METHOD 03/23/2025 4:11 AM EDT [facility] Potassium, Whole Blood 4.0 3.6 - 4.9 mmol/L LAB HEMATOLOGY METHOD 03/23/2025 4:11 AM EDT [facility] Chloride, Whole Blood 109(H) 97 - 107 mmol/L LAB HEMATOLOGY METHOD 03/23/2025 4:11 AM EDT [facility] Ionized Calcium, Whole Blood 4.4(L) 4.6 - 5.1 mg/dL LAB HEMATOLOGY METHOD 03/23/2025 4:11 AM EDT [facility] Glucose, Whole Blood 152(H) 74 - 99 mg/dL LAB HEMATOLOGY METHOD 03/23/2025 4:11 AM EDT [facility] Oxyhemoglobin, Mixed Venous, Whole Blood 61.7 40.0 - 70.0 % LAB HEMATOLOGY METHOD 03/23/2025 4:11 AM EDT [facility] Hemoglobin Reduced, Mixed Venous, Whole Blood 36.7 % LAB HEMATOLOGY METHOD 03/23/2025 4:11 AM EDT [facility] Total Hemoglobin, Mixed Venous, Whole Blood 9.9(L) 13.7 - 17.5 g/dL LAB HEMATOLOGY METHOD 03/23/2025 4:11 AM EDT [facility] Blood Mixed venous blood specimen / Unknown Venipuncture / Unknown 03/23/2025 3:53 AM EDT 03/23/2025 4:09 AM EDT us Musa Rosado MD LAB BLOOD ORDERABLES Final R esult Performing Organization Address City/State/[facility] Co de Phone Number [facility] [address] [place] [address] * ECG Adult - POD 1 (03/23/2025 2:49 AM EDT) EKG DIAGNOSIS CLASS Abnormal MUSE ECG Ventricular Rate 76 BPM MUSE ECG Atrial Rate 76 BPM MUSE ECG DC Interval 118 ms MUSE ECG QRSD Interval 80 ms MUSE ECG QT Interval 362 ms MUSE ECG QTC Interval 407 ms MUSE ECG P Cashion 46 degrees MUSE ECG R Cashion -11 degrees MUSE ECG T Wave Cashion -15 degrees MUSE ECG Diagnosis Poor data [...] MUSE ECG Diagnosis Confirmed by Jarett Steen ([id number]) on 03/23/2025 8:12:41 AM MUSE ECG 03/23/2025 [...] - 99 mg/dL 03/23/2025 2:05 AM EDT [facility] Comment:Accuracy of a glucos e result [...] Comment 03/23/2025 2:05 AM EDT [facility] [employer] ID Kelly Haynes 03/23/2025 2:05 AM EDT [facility] LAB Device ID [id number] 03/23/2025 2:05 AM EDT [facility] Specimen Type POC Arterial 03/23/2025 2:05 AM EDT [facility] Blood Arterial blood specimen / Unknown 03/23/2025 2:03 AM EDT 03/23/2025 2:05 AM EDT Musa Rosado MD LAB POINT OF CARE TE ST DOCKED DEVICE UNSOLICITED RESULTS Final Result Performing Organization Address City/[facility] Co de Phone Number [facility] [address] [place] [address] * Potassium, Plasma (03/23/2025 12:14 AM EDT) Potassium, Plasma 4.4 3.6 - 4.9 mmol/L 03/23/2025 12:51 AM EDT [facility] Blood Arterial blood specimen / Unknown Arterial Puncture / Unknown 03/23/2025 12:14 AM EDT 03/23/2025 12:30 AM EDT us Musa Rosado MD LAB BLOOD ORDERABLES Final R esult Performing Organization Address City/[facility]/ZIP Co de Phone Number [facility] [address] [place] [address] * (ABNORMAL) CBC (03/23/2025 12:13 AM EDT) WBC Count 11.73(H) 3.70 - 10.30 10*3/uL LAB HEMATOLOGY METHOD 03/23/2025 12:42 AM EDT [facility] RBC Count 3.28(L) 4.60 - 6.10 10*6/uL LAB HEMATOLOGY METHOD 03/23/2025 12:42 AM EDT [facility] HGB 10.1(L) 13.7 - 17.5 g/dL LAB HEMATOLOGY METHOD 03/23/2025 12:42 AM EDT [facility] HCT 29.6(L) 40.0 - 51.0 % LAB HEMATOLOGY METHOD 03/23/2025 12:42 AM EDT [facility] Platelet Count 138(L) 155 - 369 10*3/uL LAB HEMATOLOGY METHOD 03/23/2025 12:42 AM EDT [facility] MCV 90 79 - 98 fL LAB HEMATOLOGY METHOD 03/23/2025 12:42 AM EDT [facility] MCH 30.8 26.0 - 32.0 pg LAB HEMATOLOGY METHOD 03/23/2025 12:42 AM EDT [facility] MCHC 34.1 30.7 - 35.5 g/dL LAB HEMATOLOGY METHOD 03/23/2025 12:42 AM EDT [facility] RDW 13.7 11.5 - 14.5 % LAB HEMATOLOGY METHOD 03/23/2025 12:42 AM EDT [facility] MPV 11.3 8.8 - 12.5 fL LAB HEMATOLOGY METHOD 03/23/2025 12:42 AM EDT [facility] nRBC 0.0 <=0.0 per 100 WBCs LAB HEMATOLOGY METHOD 03/23/2025 12:42 AM EDT [facility] Blood Arterial blood specimen / Unknown Arterial Puncture / Unknown 03/23/2025 12:13 AM EDT 03/23/2025 12:32 AM EDT Musa Rosado MD LAB BLOOD ORDERABLES Final R esult [facility] [address] [place] [address] * (ABNORMAL) Hematocrit (03/23/2025 12:13 AM EDT) HCT 29.6(L) 40.0 - 51.0 % LAB HEMATOLOGY METHOD 03/23/2025 12:42 AM EDT [facility] Blood Arterial blood specimen / Unknown Arterial Puncture / Unknown 03/23/2025 12:13 AM EDT 03/23/2025 12:32 AM EDT us Musa Rosado MD LAB BLOOD ORDERABLES Final R esult Performing Organization Address City/[facility]/ZIP Co de Phone Number [facility] [address] [place] [address] * (ABNORMAL) POCT glucose meter (03/23/2025 12:10 AM EDT) Pathologist [facility] POCT Glucose 168(H) 74 - [...] for testing. Comment 03/23/2025 12:11 AM EDT [facility] [employer] ID Piya, Ojaswi 03/23/2025 12:11 AM EDT [facility] Device ID [id number] 03/23/2025 12:11 AM EDT [facility] Specimen Type POC Arterial 03/23/2025 12:11 AM EDT [facility] Blood Arterial blood specimen / Unknown 03/23/2025 12:10 AM EDT 03/23/2025 12:11 AM EDT us Musa Rosado MD LAB POINT OF CARE TE ST DOCKED DEVICE UNSOLICITED RESULTS Final Result Performing Organization Address City/[facility] Co de Phone Number [facility] [address] [place] [address] * (ABNORMAL) Blood gas, arterial (03/23/2025 12:03 AM EDT) Pathologist [facility] pH, Arterial 7.40 7.35 - 7.45 LAB HEMATOLOGY METHOD 03/23/2025 12:29 AM EDT [facility] pCO2, Arterial 38 32 - 45 mmHg LAB HEMATOLOGY METHOD 03/23/2025 12:29 AM EDT [facility] pO2, Arterial 158(H) 83 - 108 mmHg LAB HEMATOLOGY METHOD 03/23/2025 12:29 AM EDT [facility] SO2, Measured, Arterial 97 94 - 98 % LAB HEMATOLOGY METHOD 03/23/2025 12:29 AM EDT [facility] Base Excess, Arterial -0.9 -2.0 - 3.0 mmol/L LAB HEMATOLOGY METHOD 03/23/2025 12:29 AM EDT [facility] Bicarbonate, Calculated, Arterial 24 22 - 26 mmol/L LAB HEMATOLOGY METHOD 03/23/2025 12:29 AM EDT [facility] Hematocrit, Whole Blood 31.2(L) 40.0 - 51.0 % LAB HEMATOLOGY METHOD 03/23/2025 12:29 AM EDT [facility] Sodium, Whole Blood 141 136 - 145 mmol/L LAB HEMATOLOGY METHOD 03/23/2025 12:29 AM EDT [facility] Potassium, Whole Blood 4.2 3.6 - 4.9 mmol/L LAB HEMATOLOGY METHOD 03/23/2025 12:29 AM EDT [facility] Chloride, Whole Blood 110(H) 97 - 107 mmol/L LAB HEMATOLOGY METHOD 03/23/2025 12:29 AM EDT [facility] Glucose, Whole Blood 176(H) 74 - 99 mg/dL LAB HEMATOLOGY METHOD 03/23/2025 12:29 AM EDT [facility] Ionized Calcium, Whole Blood 4.4(L) 4.6 - 5.1 mg/dL LAB HEMATOLOGY METHOD 03/23/2025 12:29 AM EDT [facility] Lactate, Arterial, Whole Blood 2.5(H) 0.5 - 1.6 mmol/L LAB HEMATOLOGY METHOD 03/23/2025 12:29 AM EDT [facility] Blood Arterial blood specimen / Unknown Arterial Puncture / Unknown 03/23/2025 12:03 AM EDT 03/23/2025 12:24 AM EDT us Musa Rosado MD LAB BLOOD ORDERABLES Final R esult [facility] [address] [place] [address] * (ABNORMAL) POCT glucose meter (03/22/2025 10:59 [...] Comment 03/22/2025 11:00 PM EDT [facility] [employer] ID Kelly Haynes 03/22/2025 11:00 PM EDT [facility] Device ID [id number] 03/22/2025 11:00 PM EDT [facility] Specimen Type POC Arterial 03/22/2025 11:00 PM EDT [facility] Blood Arterial blood specimen / Unknown 03/22/2025 10:59 PM EDT 03/22/2025 11:00 PM EDT Musa Rosado MD LAB POINT OF CARE TE ST DOCKED DEVICE UNSOLICITED RESULTS Final Result Performing Organization Address City/State/[facility] Co de Phone Number [facility] [address] [place] [address] * (ABNORMAL) POCT glucose meter (03/22/2025 10:40 PM EDT) [facility] POCT Glucose 184(H) 74 - 99 mg/dL [...] Comment 03/22/2025 10:41 PM EDT [facility] [employer] ID Kelly Haynes 03/22/2025 10:41 PM EDT [facility] LAB Device ID [id number] 03/22/2025 10:41 PM EDT [facility] Specimen Type POC Arterial 03/22/2025 10:41 PM EDT [facility] Blood Arterial blood specimen / Unknown 03/22/2025 10:40 PM EDT 03/22/2025 10:41 PM EDT Musa Rosado MD LAB POINT OF CARE TE ST DOCKED DEVICE UNSOLICITED RESULTS Final Result Performing Organization Address City/State/[facility] Co de Phone Number [facility] [address] [place] [address] * (ABNORMAL) POCT glucose meter (03/22/2025 8:21 [...] Comment 03/22/2025 8:22 PM EDT [facility] [employer] ID Jaret Haynesi 03/22/2025 8:22 PM EDT [facility] LAB Device ID [id number] 03/22/2025 8:22 PM EDT [facility] Specimen Type POC Arterial 03/22/2025 8:22 PM EDT [facility] Blood Arterial blood specimen / Unknown 03/22/2025 8:21 PM EDT 03/22/2025 8:22 PM EDT Musa Rosado MD LAB POINT OF CARE TE ST DOCKED DEVICE UNSOLICITED RESULTS Final Result Performing Organization Address City/[facility]/ZIP Co de Phone Number [facility] [address] [place] [address] * (ABNORMAL) Blood gas, arterial (03/22/2025 8:17 PM EDT) pH, Arterial 7.37 7.35 - 7.45 LAB HEMATOLOGY METHOD 03/22/2025 8:29 PM EDT [facility] pCO2, Arterial 42 32 - 45 mmHg LAB HEMATOLOGY METHOD 03/22/2025 8:29 PM EDT [facility] pO2, Arterial 89 83 - 108 mmHg LAB HEMATOLOGY METHOD 03/22/2025 8:29 PM EDT [facility] SO2, Measured, Arterial 95 94 - 98 % LAB HEMATOLOGY METHOD 03/22/2025 8:29 PM EDT [facility] Base Excess, Arterial -0.9 -2.0 - 3.0 mmol/L LAB HEMATOLOGY METHOD 03/22/2025 8:29 PM EDT [facility] Bicarbonate, Calculated, Arterial 24 22 - 26 mmol/L LAB HEMATOLOGY METHOD 03/22/2025 8:29 PM EDT [facility] Hematocrit, Whole Blood 31.8(L) 40.0 - 51.0 % LAB HEMATOLOGY METHOD 03/22/2025 8:29 PM EDT [facility] Sodium, Whole Blood 141 136 - 145 mmol/L LAB HEMATOLOGY METHOD 03/22/2025 8:29 PM EDT [facility] Potassium, Whole Blood 4.1 3.6 - 4.9 mmol/L LAB HEMATOLOGY METHOD 03/22/2025 8:29 PM EDT [facility] Chloride, Whole Blood 110(H) 97 - 107 mmol/L LAB HEMATOLOGY METHOD 03/22/2025 8:29 PM EDT [facility] Glucose, Whole Blood 217(H) 74 - 99 mg/dL LAB HEMATOLOGY METHOD 03/22/2025 8:29 PM EDT [facility] Ionized Calcium, Whole Blood 4.4(L) 4.6 - 5.1 mg/dL LAB HEMATOLOGY METHOD 03/22/2025 8:29 PM EDT [facility] Lactate, Arterial, Whole Blood 2.1(H) 0.5 - 1.6 mmol/L LAB HEMATOLOGY METHOD 03/22/2025 8:29 PM EDT [facility] Blood Arterial blood specimen / Unknown Arterial Puncture / Unknown 03/22/2025 8:17 PM EDT 03/22/2025 8:27 PM EDT us Musa Rosado MD LAB BLOOD ORDERABLES Final R esult [facility] [address] [place] [address] * (ABNORMAL) Phosphorus (03/22/2025 8:14 PM EDT) Phosphorus, Plasma 1.6(L) 2.5 - 4.5 mg/dL 03/22/2025 8:55 PM EDT [facility] Blood Arterial blood specimen / Unknown Arterial Puncture / Unknown 03/22/2025 8:14 PM EDT 03/22/2025 8:28 PM EDT Musa Rosado MD LAB BLOOD ORDERABLES Final R esult Performing Organization Address City/[facility]/ZIP Co de Phone Number [facility] [address] [place] [address] * (ABNORMAL) Hematocrit (03/22/2025 8:14 PM EDT) HCT 30.1(L) 40.0 - 51.0 % LAB HEMATOLOGY METHOD 03/22/2025 8:35 PM EDT [facility] Blood Arterial blood specimen / Unknown Arterial Puncture / Unknown 03/22/2025 8:14 PM EDT 03/22/2025 8:28 PM EDT Musa Rosado MD LAB BLOOD ORDERABLES Final R esult Performing Organization Address City/[facility] Co de Phone Number [facility] [address] [place] [address] * (ABNORMAL) Hemoglobin (03/22/2025 8:14 PM EDT) HGB 10.4(L) 13.7 - 17.5 g/dL LAB HEMATOLOGY METHOD 03/22/2025 8:35 PM EDT [facility] Blood Arterial blood specimen / Unknown Arterial Puncture / Unknown 03/22/2025 8:14 PM EDT 03/22/2025 8:28 PM EDT Musa Rosado MD LAB BLOOD ORDERABLES Final R esult Performing Organization Address City/[facility]/ZIP Co de Phone Number [facility] [address] [place] [address] * Potassium, Plasma (03/22/2025 8:14 PM EDT) Potassium, Plasma 4.2 3.6 - 4.9 mmol/L 03/22/2025 8:55 PM EDT [facility] Blood Arterial blood specimen / Unknown Arterial Puncture / Unknown 03/22/2025 8:14 PM EDT 03/22/2025 8:28 PM EDT us Musa Rosado MD LAB BLOOD ORDERABLES Final R esult [facility] [address] [place] [address] * (ABNORMAL) Blood gas panel, arterial (03/22/2025 5:44 PM EDT) pH, Arterial 7.36 7.35 - 7.45 LAB HEMATOLOGY METHOD 03/22/2025 5:55 PM EDT [facility] pCO2, Arterial 41 32 - 45 mmHg LAB HEMATOLOGY METHOD 03/22/2025 5:55 PM EDT [facility] pO2, Arterial 107 83 - 108 mmHg LAB HEMATOLOGY METHOD 03/22/2025 5:55 PM EDT [facility] SO2, Measured, Arterial 98 94 - 98 % LAB HEMATOLOGY METHOD 03/22/2025 5:55 PM EDT [facility] Base Excess, Arterial -2.2(L) -2.0 - 3.0 mmol/L LAB HEMATOLOGY METHOD 03/22/2025 5:55 PM EDT [facility] Bicarbonate, Calculated, Arterial 23 22 - 26 mmol/L LAB HEMATOLOGY METHOD 03/22/2025 5:55 PM EDT [facility] Hematocrit, Whole Blood 33.7(L) 40.0 - 51.0 % LAB HEMATOLOGY METHOD 03/22/2025 5:55 PM EDT [facility] Sodium, Whole Blood 142 136 - 145 mmol/L LAB HEMATOLOGY METHOD 03/22/2025 5:55 PM EDT [facility] Potassium, Whole Blood 4.1 3.6 - 4.9 mmol/L LAB HEMATOLOGY METHOD 03/22/2025 5:55 PM EDT [facility] Chloride, Whole Blood 111(H) 97 - 107 mmol/L LAB HEMATOLOGY METHOD 03/22/2025 5:55 PM EDT [facility] Glucose, Whole Blood 206(H) 74 - 99 mg/dL LAB HEMATOLOGY METHOD 03/22/2025 5:55 PM EDT [facility] Ionized Calcium, Whole Blood 4.3(L) 4.6 - 5.1 mg/dL LAB HEMATOLOGY METHOD 03/22/2025 5:55 PM EDT [facility] Lactate, Arterial, Whole Blood 2.3(H) 0.5 - 1.6 mmol/L LAB HEMATOLOGY METHOD 03/22/2025 5:55 PM EDT [facility] Blood Arterial blood specimen / Unknown Arterial Puncture / Unknown 03/22/2025 5:44 PM EDT 03/22/2025 5:53 PM EDT us Musa Rosado MD LAB BLOOD ORDERABLES Final R esult [facility] [address] [place] [address] * XR Chest 1 View (03/22/2025 4:46 [...] above the freddie. Right internal jugular approach Le Roy-Brea catheter with tip over the proximal right pulmonary artery. Mediastinal drain and bilateral chest tubes in place. Low lung volumes. Pulmonary vascular congestion. No pneumothorax. Interval median sternotomy and CABG. Procedure Note Carmencita Aponte MD - 03/22/2025 CLINICAL INDICATION: Post-Op Cardiac Surgery TECHNIQUE: XR CHEST 1 VIEW COMPARISON: 03/21/2025 FINDINGS: Endotracheal tube tip 6.5 cm above the freddie. Right internal jugularapproach Le Roy-Brea catheter with tip over the proximal right [...] IMG XR PROCEDURES Final Resu lt * DC CRITICAL CARE, E/M 30-74 MINUTES (03/22/2025 4:38 [...] ECG Atrial Rate 73 BPM MUSE ECG DC Interval 140 ms MUSE ECG QRSD Interval 86 ms MUSE ECG QT Interval 396 ms MUSE ECG QTC Interval 436 ms MUSE ECG P Cashion 66 degrees MUSE ECG R Cashion 26 degrees MUSE ECG T Wave Cashion 52 degrees MUSE ECG Diagnosis Normal sinus rhythm MUSE ECG Diagnosis ST elevation, consider early repolarization , pericarditis, or injury MUSE ECG Diagnosis Need clinical information and correlation MUSE ECG Diagnosis MUSE ECG Diagnosis Confirmed by Jarett Steen ([id number]) on 03/22/2025 7:45:24 PM MUSE ECG 03/22/2025 4:10 PM EDT 03/22/2025 7:45 PM EDT us Musa Rosado MD ECG ORDERABLES Final Result MUSE ECG * (ABNORMAL) Blood gas, arterial - Post extubation (03/22/2025 3:52 PM EDT) pH, Arterial 7.35 7.35 - 7.45 LAB HEMATOLOGY METHOD 03/22/2025 4:33 PM EDT [facility] pCO2, Arterial 44 32 - 45 mmHg LAB HEMATOLOGY METHOD 03/22/2025 4:33 PM EDT [facility] pO2, Arterial 127(H) 83 - 108 mmHg LAB HEMATOLOGY METHOD 03/22/2025 4:33 PM EDT [facility] SO2, Measured, Arterial 99(H) 94 - 98 % LAB HEMATOLOGY METHOD 03/22/2025 4:33 PM EDT [facility] Base Excess, Arterial -1.9 -2.0 - 3.0 mmol/L LAB HEMATOLOGY METHOD 03/22/2025 4:33 PM EDT [facility] Bicarbonate, Calculated, Arterial 24 22 - 26 mmol/L LAB HEMATOLOGY METHOD 03/22/2025 4:33 PM EDT [facility] Hematocrit, Whole Blood 35.2(L) 40.0 - 51.0 % LAB HEMATOLOGY METHOD 03/22/2025 4:33 PM EDT [facility] Sodium, Whole Blood 142 136 - 145 mmol/L LAB HEMATOLOGY METHOD 03/22/2025 4:33 PM EDT [facility] Potassium, Whole Blood 3.8 3.6 - 4.9 mmol/L LAB HEMATOLOGY METHOD 03/22/2025 4:33 PM EDT [facility] Chloride, Whole Blood 112(H) 97 - 107 mmol/L LAB HEMATOLOGY METHOD 03/22/2025 4:33 PM EDT [facility] Glucose, Whole Blood 184(H) 74 - 99 mg/dL LAB HEMATOLOGY METHOD 03/22/2025 4:33 PM EDT [facility] Ionized Calcium, Whole Blood 4.4(L) 4.6 - 5.1 mg/dL LAB HEMATOLOGY METHOD 03/22/2025 4:33 PM EDT [facility] Lactate, Arterial, Whole Blood 2.6(H) 0.5 - 1.6 mmol/L LAB HEMATOLOGY METHOD 03/22/2025 4:33 PM EDT [facility] Blood Arterial blood specimen / Unknown Arterial Puncture / Unknown 03/22/2025 3:52 PM EDT 03/22/2025 4:31 PM EDT us Musa Rosado MD LAB BLOOD ORDERABLES Final R esult Performing Organization Address [facility] de Phone Number [facility] [address] [place] [address] * Denise auris Surveillance by PCR (03/22/2025 3:52 PM EDT) Denise auris PCR Result Not Detected Not Detected 03/23/2025 12:49 PM EDT [facility] Swab (Axilla and Groin) Non-blood Collection / Unknown 03/22/2025 3:52 PM EDT 03/22/2025 4:37 PM EDT Narrative [facility] - 03/23/2025 12:49 PM EDT This PCR assay was developed and its performance characteristics determined by [facility] as appropriate for clinical purposes. This assay has not been cleared or approved by the FDA, but is performed in a CLIA regulated laboratory that is qualified to perform high-complexity testing. us Musa Rosado MD LAB MICROBIOLOGY - GENERAL O RDERABLES Final Result Performing Organization Address [facility] Co de Phone Number [facility] [address] [place] [address] * Multi Drug Resistance Test (03/22/2025 3:52 PM EDT) Culture No growth at day 1 03/24/2025 7:31 AM EDT [facility] Swab (Nares and Lisa Rectal) Non-blood Collection / Unknown 03/22/2025 3:52 PM EDT 03/22/2025 4:37 PM EDT Narrative [facility] - 03/24/2025 7:31 AM EDT This test was developed and its performance characteristics determined by the [facility]. Although the media is FDA-approved, it is not FDA-approved for all specimen types submitted. The FDA has determined that such clearance or approval is not necessary. This test is used for surveillance purposes. It should not be regarded as investigational or for research. The [facility] is certified under the Clinical Laboratory Improvement Amendments of 1988 (CLIA-88) as qualified to perform high complexity clinical laboratory testing. us Musa Rosado MD LAB MICROBIOLOGY - GENERAL O RDERABLES Final Result Performing Organization Address [facility]/ZIP Co de Phone Number [facility] [address] [place] [address] * APTT (03/22/2025 3:52 PM EDT) aPTT 28 25 - 35 sec LAB COAGULATION METHOD 03/22/2025 5:08 PM EDT [facility] Blood Venous blood specimen / Unknown Venipuncture / Unknown 03/22/2025 3:52 PM EDT 03/22/2025 4:45 PM EDT us Musa Rosado MD LAB BLOOD ORDERABLES Final R esult Performing Organization Address City/[facility]/ZIP Co de Phone Number [facility] [address] [place] [address] * (ABNORMAL) Protime-INR (03/22/2025 3:52 PM EDT) Prothrombin Time 17.0(H) 12.0 - 14.3 sec LAB COAGULATION METHOD 03/22/2025 5:08 PM EDT [facility] INR 1.4(H) 0.9 - 1.1 LAB COAGULATION METHOD 03/22/2025 5:08 PM EDT [facility] Blood Venous blood specimen / Unknown Venipuncture / Unknown 03/22/2025 3:52 PM EDT 03/22/2025 4:[address] [facility] - 03/22/2025 5:08 PM EDT OPTIMAL INR RANGES FOR PATIENT ON ORAL ANTICOAGULANT THERAPY Prevention of venous thromboembolism INR 2.0 to 3.0 In patients with heart disease: Atrial fibrillation INR 2.0 to 3.0 Valvular heart disease INR 2.0 to 3.0 Tissue heart valves INR 2.0 to 3.0 Mechanical prosthetic valves INR 2.5 to 3.5 Prevention of recurrent AL INR 2.5 to 3.5 Musa Rosado MD LAB BLOOD ORDERABLES Final R esult Performing Organization Address City/[facility] [place] [address] * (ABNORMAL) Phosphorus (03/22/2025 3:52 PM EDT) Phosphorus, Plasma 1.0(LL) 2.5 - 4.5 mg/dL 03/22/2025 5:[address] [facility] Blood Venous blood specimen / Unknown Venipuncture / Unknown 03/22/2025 3:52 PM EDT 03/22/2025 4:45 PM EDT Musa Rosado MD LAB BLOOD ORDERABLES Final R esult Performing Organization Address City/[facility]/[place] [address] * (ABNORMAL) Magnesium (03/22/2025 3:52 PM EDT) Magnesium, Plasma 3.1(H) 1.9 - 2.4 mg/dL 03/22/2025 5:13 PM EDT [facility] Blood Venous blood specimen / Unknown Venipuncture / Unknown 03/22/2025 3:52 PM EDT 03/22/2025 4:45 PM EDT Musa Rosado MD LAB BLOOD ORDERABLES Final R esult [facility] [address] [place] [address] * (ABNORMAL) Basic metabolic panel (03/22/2025 3:52 PM EDT) Glucose, Plasma 188(H) 74 - 99 mg/dL 03/22/2025 5:13 PM EDT [facility] BUN, Plasma 17 7 - 21 mg/dL 03/22/2025 5:13 PM EDT [facility] Creatinine, Plasma 1.19 0.70 - 1.20 mg/dL 03/22/2025 5:13 PM EDT [facility] BUN/Creatinine Ratio 14 03/22/2025 5:13 PM EDT [facility] Sodium, Plasma 142 136 - 145 mmol/L 03/22/2025 5:13 PM EDT [facility] Potassium, Plasma 4.1 3.6 - 4.9 mmol/L 03/22/2025 5:13 PM EDT [facility] Chloride, Plasma 111(H) 97 - 107 mmol/L 03/22/2025 5:13 PM EDT [facility] CO2, Plasma 21(L) 22 - 29 mmol/L 03/22/2025 5:13 PM EDT [facility] Anion Gap 10 6 - 16 mmol/L 03/22/2025 5:13 PM EDT [facility] Total Calcium, Plasma 7.7(L) 8.9 - 10.2 mg/dL 03/22/2025 5:13 PM EDT [facility] eGFRcr 77.7 mL/min/1.7 3m*2 03/22/2025 5:13 PM EDT [facility] Comment:Reported eGFRcr in m L/min/1.73m2 is based the CKD-EPI 2020 equation that does not use a race coefficient. Blood Venous blood specimen / Unknown Venipuncture / Unknown 03/22/2025 3:52 PM EDT 03/22/2025 4:45 PM EDT Musa Rosado MD LAB BLOOD ORDERABLES Final R esult [facility] [address] [place] [address] * (ABNORMAL) CBC (03/22/2025 3:52 PM EDT) WBC Count 16.63(H) 3.70 - 10.30 10*3/uL LAB HEMATOLOGY METHOD 03/22/2025 4:48 PM EDT [facility] RBC Count 3.77(L) 4.60 - 6.10 10*6/uL LAB HEMATOLOGY METHOD 03/22/2025 4:48 PM EDT [facility] HGB 11.4(L) 13.7 - 17.5 g/dL LAB HEMATOLOGY METHOD 03/22/2025 4:48 PM EDT [facility] HCT 33.7(L) 40.0 - 51.0 % LAB HEMATOLOGY METHOD 03/22/2025 4:48 PM EDT [facility] Platelet Count 159 155 - 369 10*3/uL LAB HEMATOLOGY METHOD 03/22/2025 4:48 PM EDT [facility] MCV 89 79 - 98 fL LAB HEMATOLOGY METHOD 03/22/2025 4:48 PM EDT [facility] MCH 30.2 26.0 - 32.0 pg LAB HEMATOLOGY METHOD 03/22/2025 4:48 PM EDT [facility] MCHC 33.8 30.7 - 35.5 g/dL LAB HEMATOLOGY METHOD 03/22/2025 4:48 PM EDT [facility] RDW 13.4 11.5 - 14.5 % LAB HEMATOLOGY METHOD 03/22/2025 4:48 PM EDT [facility] MPV 11.0 8.8 - 12.5 fL LAB HEMATOLOGY METHOD 03/22/2025 4:48 PM EDT [facility] nRBC 0.0 <=0.0 per 100 WBCs LAB HEMATOLOGY METHOD 03/22/2025 4:48 PM EDT [facility] Blood Venous blood specimen / Unknown Venipuncture / Unknown 03/22/2025 3:52 PM EDT 03/22/2025 4:42 PM EDT us Musa Rosado MD LAB BLOOD ORDERABLES Final R esult [facility] [address] [place] [address] * (ABNORMAL) POCT arterial blood gas gem (03/22/2025 3:29 PM EDT) pH, Arterial 7.36 7.35 - 7.45 03/22/2025 3:41 PM EDT [facility] pCO2, Arterial 42 32 - 45 mm Hg 03/22/2025 3:41 PM EDT [facility] pO2, Arterial 150(H) 83 - 108 mm Hg 03/22/2025 3:41 PM EDT [facility] SO2, Arterial 98 94 - 98 % 03/22/2025 3:41 PM EDT [facility] Base Excess, Arterial -1.7 -2 - 3 mmol/L 03/22/2025 3:41 PM EDT [facility] HCO3, Arterial 23.7 22 - 26 mmol/L 03/22/2025 3:41 PM EDT [facility] Total Hemoglobin, Arterial, Whole Blood 11.2(L) 13.7 - 17.5 g/dL 03/22/2025 3:41 PM EDT [facility] Hematocrit, Arterial 34.0(L) 40 - 51.0 % 03/22/2025 3:41 PM EDT [facility] Sodium, Arterial 141 136 - 145 mmol/L 03/22/2025 3:41 PM EDT [facility] Potassium, Arterial 3.8 3.6 - 4.9 mmol/L 03/22/2025 3:41 PM EDT [facility] Chloride, Whole Blood 109(H) 97 - 107 mmol/L 03/22/2025 3:41 PM EDT [facility] Glucose, Arterial 192(H) 74 - 99 mg/dL 03/22/2025 3:41 PM EDT [facility] Ionized Calcium, Arterial 4.6 4.6 - 5.1 mg/dL 03/22/2025 3:41 PM EDT [facility] Lactate, Arterial 2.0(H) 0.5 - 1.6 mmol/L 03/22/2025 3:41 PM EDT [facility] Body Temperature 37.0 Celsius 03/22/2025 3:41 PM EDT [facility] pH, Temp Corrected, Arterial 7.36 7.35 - 7.45 03/22/2025 3:41 PM EDT [facility] pCO2, Temp Corrected, Arterial 42 32 - 45 mm Hg 03/22/2025 3:41 PM EDT [facility] pO2, Temp Corrected, Arterial 150(H) 83 - 108 mm Hg 03/22/2025 3:41 PM EDT [facility] Automotive Glass Mechanic ID Ludin Aguiar 03/22/2025 3:41 PM EDT [facility] Blood, Arterial Whole blood specimen / Unknown 03/22/2025 3:29 PM EDT 03/22/2025 3:41 PM EDT us Musa Rosado MD LAB POINT OF CARE TE ST DOCKED DEVICE UNSOLICITED RESULTS Final Result [facility] [address] [place] [address] * (ABNORMAL) POCT arterial blood gas gem (03/22/2025 2:44 PM EDT) pH, Arterial 7.33(L) 7.35 - 7.45 03/22/2025 2:51 PM EDT [facility] pCO2, Arterial 46(H) 32 - 45 mm Hg 03/22/2025 2:51 PM EDT [facility] pO2, Arterial 182(H) 83 - 108 mm Hg 03/22/2025 2:51 PM EDT [facility] SO2, Arterial 97 94 - 98 % 03/22/2025 2:51 PM EDT [facility] Base Excess, Arterial -1.8 -2 - 3 mmol/L 03/22/2025 2:51 PM EDT [facility] HCO3, Arterial 24.3 22 - 26 mmol/L 03/22/2025 2:51 PM EDT [facility] Total Hemoglobin, Arterial, Whole Blood 10.8(L) 13.7 - 17.5 g/dL 03/22/2025 2:51 PM EDT [facility] Hematocrit, Arterial 32.0(L) 40 - 51.0 % 03/22/2025 2:51 PM EDT [facility] Sodium, Arterial 141 136 - 145 mmol/L 03/22/2025 2:51 PM EDT [facility] Potassium, Arterial 3.8 3.6 - 4.9 mmol/L 03/22/2025 2:51 PM EDT [facility] Chloride, Whole Blood 111(H) 97 - 107 mmol/L 03/22/2025 2:51 PM EDT [facility] Glucose, Arterial 187(H) 74 - 99 mg/dL 03/22/2025 2:51 PM EDT [facility] Ionized Calcium, Arterial 4.7 4.6 - 5.1 mg/dL 03/22/2025 2:51 PM EDT [facility] Lactate, Arterial 1.8(H) 0.5 - 1.6 mmol/L 03/22/2025 2:51 PM EDT [facility] Body Temperature 37.0 Celsius 03/22/2025 2:51 PM EDT [facility] pH, Temp Corrected, Arterial 7.33(L) 7.35 - 7.45 03/22/2025 2:51 PM EDT [facility] pCO2, Temp Corrected, Arterial 46(H) 32 - 45 mm Hg 03/22/2025 2:51 PM EDT [facility] pO2, Temp Corrected, Arterial 182(H) 83 - 108 mm Hg 03/22/2025 2:51 PM EDT [facility] [employer] ID Ludin Aguiar 03/22/2025 2:51 PM EDT [facility] Blood, Arterial Whole blood specimen / Unknown 03/22/2025 2:44 PM EDT 03/22/2025 2:51 PM EDT Musa Rosado MD LAB POINT OF CARE TE ST DOCKED DEVICE UNSOLICITED RESULTS Final Result [facility] [address] [place] [address] * QPLUS (03/22/2025 2:24 PM EDT) [facility] Clot Time 125 104 - 166 Seconds 03/22/2025 2:38 PM EDT [facility] Clot Time Ratio 1.0 0.8 [...] - 3.7 hectoPascals 03/22/2025 2:38 PM EDT [facility] Heparinase Clot Time 126 103 - 153 Seconds 03/22/2025 2:38 PM EDT [facility] [employer] ID Ludin Aguiar 03/22/2025 2:38 PM EDT [facility] Device ID [id number] 03/22/2025 2:38 PM EDT [facility] Whole Blood 03/22/2025 2:24 PM EDT 03/22/2025 2:38 PM EDT us Musa Rosado MD LAB POINT OF CARE TE ST DOCKED DEVICE UNSOLICITED RESULTS Final Result [facility] [address] [place] [address] * (ABNORMAL) POCT arterial blood gas gem (03/22/2025 2:10 PM EDT) pH, Arterial 7.34(L) 7.35 - 7.45 03/22/2025 2:13 PM EDT [facility] pCO2, Arterial 43 32 - 45 mm Hg 03/22/2025 2:13 PM EDT [facility] pO2, Arterial 96 83 - 108 mm Hg 03/22/2025 2:13 PM EDT [facility] SO2, Arterial 97 94 - 98 % 03/22/2025 2:13 PM EDT [facility] Base Excess, Arterial -2.5(L) -2 - 3 mmol/L 03/22/2025 2:13 PM EDT [facility] HCO3, Arterial 23.2 22 - 26 mmol/L 03/22/2025 2:13 PM EDT [facility] Total Hemoglobin, Arterial, Whole Blood 9.4(L) 13.7 - 17.5 g/dL 03/22/2025 2:13 PM EDT [facility] Hematocrit, Arterial 28.0(L) 40 - 51.0 % 03/22/2025 2:13 PM EDT [facility] Sodium, Arterial 140 136 - 145 mmol/L 03/22/2025 2:13 PM EDT [facility] Potassium, Arterial 3.7 3.6 - 4.9 mmol/L 03/22/2025 2:13 PM EDT [facility] Chloride, Whole Blood 110(H) 97 - 107 mmol/L 03/22/2025 2:13 PM EDT [facility] Glucose, Arterial 212(H) 74 - 99 mg/dL 03/22/2025 2:13 PM EDT [facility] Ionized Calcium, Arterial 4.8 4.6 - 5.1 mg/dL 03/22/2025 2:13 PM EDT [facility] Lactate, Arterial 2.5(H) 0.5 - 1.6 mmol/L 03/22/2025 2:13 PM EDT [facility] Body Temperature 37.0 Celsius 03/22/2025 2:13 PM EDT [facility] pH, Temp Corrected, Arterial 7.34(L) 7.35 - 7.45 03/22/2025 2:13 PM EDT [facility] pCO2, Temp Corrected, Arterial 43 32 - 45 mm Hg 03/22/2025 2:13 PM EDT [facility] pO2, Temp Corrected, Arterial 96 83 - 108 mm Hg 03/22/2025 2:13 PM EDT [facility] [employer] ID Temo Mendoza 03/22/2025 2:13 PM EDT [facility] Blood, Arterial Whole blood specimen / Unknown 03/22/2025 2:10 PM EDT 03/22/2025 2:13 PM EDT us Musa Rosado MD LAB POINT OF CARE TE ST DOCKED DEVICE UNSOLICITED RESULTS Final Result [facility] [address] [place] [id number] * POCT ACT (03/22/2025 2:04 PM EDT) [facility] ACT+ (HIGH RANGE) 115 68 - 600 Seconds 03/22/2025 2:10 PM EDT [facility] [employer] ID Selene Cardona 03/22/2025 2:10 PM EDT [facility] ACT Device ID [id number] 03/22/2025 2:10 PM EDT [facility] Comment 03/22/2025 2:10 PM EDT [facility] Comment: ACT performed by staff [...] UNSOLICITED RESULTS Final Result [facility] [address] LAB [address] [place] [address] * (ABNORMAL) POCT arterial blood gas gem (03/22/2025 1:29 PM EDT) pH, Arterial 7.33(L) 7.35 - 7.45 03/22/2025 1:31 PM EDT [facility] pCO2, Arterial 42 32 - 45 mm Hg 03/22/2025 1:31 PM EDT [facility] pO2, Arterial 371(H) 83 - 108 mm Hg 03/22/2025 1:31 PM EDT [facility] SO2, Arterial 98 94 - 98 % 03/22/2025 1:31 PM EDT [facility] Base Excess, Arterial -3.6(L) -2 - 3 mmol/L 03/22/2025 1:31 PM EDT [facility] HCO3, Arterial 22.1 22 - 26 mmol/L 03/22/2025 1:31 PM EDT [facility] Total Hemoglobin, Arterial, Whole Blood 9.0(L) 13.7 - 17.5 g/dL 03/22/2025 1:31 PM EDT [facility] Hematocrit, Arterial 27.0(L) 40 - 51.0 % 03/22/2025 1:31 PM EDT [facility] Sodium, Arterial 138 136 - 145 mmol/L 03/22/2025 1:31 PM EDT [facility] Potassium, Arterial 4.2 3.6 - 4.9 mmol/L 03/22/2025 1:31 PM EDT [facility] Chloride, Whole Blood 109(H) 97 - 107 mmol/L 03/22/2025 1:31 PM EDT [facility] Glucose, Arterial 272(H) 74 - 99 mg/dL 03/22/2025 1:31 PM EDT [facility] Ionized Calcium, Arterial 4.9 4.6 - 5.1 mg/dL 03/22/2025 1:31 PM EDT [facility] Lactate, Arterial 2.6(H) 0.5 - 1.6 mmol/L 03/22/2025 1:31 PM EDT [facility] Body Temperature 37.0 Celsius 03/22/2025 1:31 PM EDT [facility] pH, Temp Corrected, Arterial 7.33(L) 7.35 - 7.45 03/22/2025 1:31 PM EDT [facility] pCO2, Temp Corrected, Arterial 42 32 - 45 mm Hg 03/22/2025 1:31 PM EDT [facility] pO2, Temp Corrected, Arterial 371(H) 83 - 108 mm Hg 03/22/2025 1:31 PM EDT [facility] [employer] ID Shelley Bridges 03/22/2025 1:31 PM EDT [facility] Blood, Arterial Whole blood specimen / Unknown 03/22/2025 1:29 PM EDT 03/22/2025 1:31 PM EDT us Musa Rosado MD LAB POINT OF CARE TE ST DOCKED DEVICE UNSOLICITED RESULTS Final Result [facility] [address] [place] [address] * POCT ACT (03/22/2025 1:25 PM EDT) [facility] ACT+ (HIGH RANGE) 489 68 - 600 Seconds 03/22/2025 1:34 PM EDT [facility] [employer] ID Shelley Bridges 03/22/2025 1:34 PM EDT [facility] ACT Device ID [id number] 03/22/2025 1:34 PM EDT [facility] Comment 03/22/2025 1:34 PM EDT [facility] Comment: ACT performed by staff [...] UNSOLICITED RESULTS Final Result Performing Organization Address City/State/[facility] Co de Phone Number [facility] [address] LAB [address] [place] [address] * (ABNORMAL) POCT arterial blood gas gem (03/22/2025 12:55 PM EDT) pH, Arterial 7.36 7.35 - 7.45 03/22/2025 12:56 PM EDT [facility] pCO2, Arterial 40 32 - 45 mm Hg 03/22/2025 12:56 PM EDT [facility] pO2, Arterial 179(H) 83 - 108 mm Hg 03/22/2025 12:56 PM EDT [facility] SO2, Arterial 97 94 - 98 % 03/22/2025 12:56 PM EDT [facility] Base Excess, Arterial -2.6(L) -2 - 3 mmol/L 03/22/2025 12:56 PM EDT [facility] HCO3, Arterial 22.6 22 - 26 mmol/L 03/22/2025 12:56 PM EDT [facility] Total Hemoglobin, Arterial, Whole Blood 9.3(L) 13.7 - 17.5 g/dL 03/22/2025 12:56 PM EDT [facility] Hematocrit, Arterial 28.0(L) 40 - 51.0 % 03/22/2025 12:56 PM EDT [facility] Sodium, Arterial 139 136 - 145 mmol/L 03/22/2025 12:56 PM EDT [facility] Potassium, Arterial 4.0 3.6 - 4.9 mmol/L 03/22/2025 12:56 PM EDT [facility] Chloride, Whole Blood 108(H) 97 - 107 mmol/L 03/22/2025 12:56 PM EDT [facility] Glucose, Arterial 245(H) 74 - 99 mg/dL 03/22/2025 12:56 PM EDT [facility] Ionized Calcium, Arterial 4.8 4.6 - 5.1 mg/dL 03/22/2025 12:56 PM EDT [facility] Lactate, Arterial 2.4(H) 0.5 - 1.6 mmol/L 03/22/2025 12:56 PM EDT [facility] Body Temperature 37.0 Celsius 03/22/2025 12:56 PM EDT [facility] pH, Temp Corrected, Arterial 7.36 7.35 - 7.45 03/22/2025 12:56 PM EDT [facility] pCO2, Temp Corrected, Arterial 40 32 - 45 mm Hg 03/22/2025 12:56 PM EDT [facility] pO2, Temp Corrected, Arterial 179(H) 83 - 108 mm Hg 03/22/2025 12:56 PM EDT [facility] [employer] ID Selene Cardona 03/22/2025 12:56 PM EDT [facility] Blood, Arterial Whole blood specimen / Unknown 03/22/2025 12:55 PM EDT 03/22/2025 12:56 PM EDT us Musa Rosado MD LAB POINT OF CARE TE ST DOCKED DEVICE UNSOLICITED RESULTS Final Result [facility] [address] [place] [address] * POCT ACT (03/22/2025 12:51 PM EDT) ACT+ (HIGH RANGE) 593 68 - 600 Seconds 03/22/2025 1:02 PM EDT [facility] [employer] ID Selene Cardona 03/22/2025 1:02 PM EDT [facility] ACT Device ID [id number] 03/22/2025 1:02 PM EDT [facility] Comment 03/22/2025 1:02 PM EDT [facility] Comment: ACT performed by staff [...] ST DOCKED DEVICE UNSOLICITED RESULTS Final Result [facility] [address] LAB [address] [place] [address] * (ABNORMAL) POCT arterial blood gas gem (03/22/2025 12:25 PM EDT) pH, Arterial 7.44 7.35 - 7.45 03/22/2025 12:26 PM EDT [facility] pCO2, Arterial 34 32 - 45 mm Hg 03/22/2025 12:26 PM EDT [facility] pO2, Arterial 296(H) 83 - 108 mm Hg 03/22/2025 12:26 PM EDT [facility] SO2, Arterial 97 94 - 98 % 03/22/2025 12:26 PM EDT [facility] Base Excess, Arterial -0.7 -2 - 3 mmol/L 03/22/2025 12:26 PM EDT [facility] HCO3, Arterial 23.1 22 - 26 mmol/L 03/22/2025 12:26 PM EDT [facility] Total Hemoglobin, Arterial, Whole Blood 9.7(L) 13.7 - 17.5 g/dL 03/22/2025 12:26 PM EDT [facility] Hematocrit, Arterial 29.0(L) 40 - 51.0 % 03/22/2025 12:26 PM EDT [facility] Sodium, Arterial 138 136 - 145 mmol/L 03/22/2025 12:26 PM EDT [facility] Potassium, Arterial 3.4(L) 3.6 - 4.9 mmol/L 03/22/2025 12:26 PM EDT [facility] Chloride, Whole Blood 108(H) 97 - 107 mmol/L 03/22/2025 12:26 PM EDT [facility] Glucose, Arterial 266(H) 74 - 99 mg/dL 03/22/2025 12:26 PM EDT [facility] Ionized Calcium, Arterial 4.7 4.6 - 5.1 mg/dL 03/22/2025 12:26 PM EDT [facility] Lactate, Arterial 2.3(H) 0.5 - 1.6 mmol/L 03/22/2025 12:26 PM EDT [facility] Body Temperature 37.0 Celsius 03/22/2025 12:26 PM EDT [facility] pH, Temp Corrected, Arterial 7.44 7.35 - 7.45 03/22/2025 12:26 PM EDT [facility] pCO2, Temp Corrected, Arterial 34 32 - 45 mm Hg 03/22/2025 12:26 PM EDT [facility] pO2, Temp Corrected, Arterial 296(H) 83 - 108 mm Hg 03/22/2025 12:26 PM EDT [facility] [employer] ID Selene Cardona 03/22/2025 12:26 PM EDT [facility] Blood, Arterial Whole blood specimen / Unknown 03/22/2025 12:25 PM EDT 03/22/2025 12:26 PM EDT Musa Rosado MD LAB POINT OF CARE TE ST DOCKED DEVICE UNSOLICITED RESULTS Final Result [facility] [address] [place] [address] * POCT ACT (03/22/2025 12:21 PM EDT) ACT+ (HIGH RANGE) 536 68 - 600 Seconds 03/22/2025 12:30 PM EDT [facility] [employer] ID Selene Cardona 03/22/2025 12:30 PM EDT [facility] ACT Device ID [id number] 03/22/2025 12:30 PM EDT [facility] Comment 03/22/2025 12:30 PM EDT [facility] Comment: ACT performed by staff [...] ST DOCKED DEVICE UNSOLICITED RESULTS Final Result [facility] [address] LAB [address] [place] [address] * (ABNORMAL) POCT arterial blood gas gem (03/22/2025 11:54 AM EDT) pH, Arterial 7.31(L) 7.35 - 7.45 03/22/2025 11:56 AM EDT [facility] pCO2, Arterial 43 32 - 45 mm Hg 03/22/2025 11:56 AM EDT [facility] pO2, Arterial 234(H) 83 - 108 mm Hg 03/22/2025 11:56 AM EDT [facility] SO2, Arterial 97 94 - 98 % 03/22/2025 11:56 AM EDT [facility] Base Excess, Arterial -4.4(L) -2 - 3 mmol/L 03/22/2025 11:56 AM EDT [facility] HCO3, Arterial 21.7(L) 22 - 26 mmol/L 03/22/2025 11:56 AM EDT [facility] Total Hemoglobin, Arterial, Whole Blood 9.8(L) 13.7 - 17.5 g/dL 03/22/2025 11:56 AM EDT [facility] Hematocrit, Arterial 29.0(L) 40 - 51.0 % 03/22/2025 11:56 AM EDT [facility] Sodium, Arterial 139 136 - 145 mmol/L 03/22/2025 11:56 AM EDT [facility] Potassium, Arterial 2.9(L) 3.6 - 4.9 mmol/L 03/22/2025 11:56 AM EDT [facility] Chloride, Whole Blood 107 97 - 107 mmol/L 03/22/2025 11:56 AM EDT [facility] Glucose, Arterial 243(H) 74 - 99 mg/dL 03/22/2025 11:56 AM EDT [facility] Ionized Calcium, Arterial 4.9 4.6 - 5.1 mg/dL 03/22/2025 11:56 AM EDT [facility] Lactate, Arterial 2.2(H) 0.5 - 1.6 mmol/L 03/22/2025 11:56 AM EDT [facility] Body Temperature 37.0 Celsius 03/22/2025 11:56 AM EDT [facility] pH, Temp Corrected, Arterial 7.31(L) 7.35 - 7.45 03/22/2025 11:56 AM EDT [facility] pCO2, Temp Corrected, Arterial 43 32 - 45 mm Hg 03/22/2025 11:56 AM EDT [facility] pO2, Temp Corrected, Arterial 234(H) 83 - 108 mm Hg 03/22/2025 11:56 AM EDT [facility] [employer] ID Brendan Selene 03/22/2025 11:56 AM EDT [facility] Blood, Arterial Whole blood specimen / Unknown 03/22/2025 11:54 AM EDT 03/22/2025 11:56 AM EDT Musa Rosado MD LAB POINT OF CARE TE ST DOCKED DEVICE UNSOLICITED RESULTS Final Result [facility] [address] [place] [address] * POCT ACT (03/22/2025 11:49 AM EDT) ACT+ (HIGH RANGE) 591 68 - 600 Seconds 03/22/2025 12:30 PM EDT [facility] [employer] ID [email or web address] [email or web address] 03/22/2025 12:30 PM EDT [facility] ACT Device ID [id number] 03/22/2025 12:30 PM EDT [facility] Comment 03/22/2025 12:30 PM EDT [facility] Comment: ACT performed by staff [...] ST DOCKED DEVICE UNSOLICITED RESULTS Final Result [facility] [address] LAB [address] [place] [address] * (ABNORMAL) POCT arterial blood gas gem (03/22/2025 11:26 AM EDT) pH, Arterial 7.37 7.35 - 7.45 03/22/2025 11:28 AM EDT [facility] pCO2, Arterial 42 32 - 45 mm Hg 03/22/2025 11:28 AM EDT [facility] pO2, Arterial 251(H) 83 - 108 mm Hg 03/22/2025 11:28 AM EDT [facility] SO2, Arterial 98 94 - 98 % 03/22/2025 11:28 AM EDT [facility] Base Excess, Arterial -1.0 -2 - 3 mmol/L 03/22/2025 11:28 AM EDT [facility] HCO3, Arterial 24.3 22 - 26 mmol/L 03/22/2025 11:28 AM EDT [facility] Total Hemoglobin, Arterial, Whole Blood 9.2(L) 13.7 - 17.5 g/dL 03/22/2025 11:28 AM EDT [facility] Hematocrit, Arterial 28.0(L) 40 - 51.0 % 03/22/2025 11:28 AM EDT [facility] Sodium, Arterial 136 136 - 145 mmol/L 03/22/2025 11:28 AM EDT [facility] Potassium, Arterial 3.6 3.6 - 4.9 mmol/L 03/22/2025 11:28 AM EDT [facility] Chloride, Whole Blood 106 97 - 107 mmol/L 03/22/2025 11:28 AM EDT [facility] Glucose, Arterial 248(H) 74 - 99 mg/dL 03/22/2025 11:28 AM EDT [facility] Ionized Calcium, Arterial 4.7 4.6 - 5.1 mg/dL 03/22/2025 11:28 AM EDT [facility] Lactate, Arterial 1.5 0.5 - 1.6 mmol/L 03/22/2025 11:28 AM EDT [facility] Body Temperature 37.0 Celsius 03/22/2025 11:28 AM EDT [facility] pH, Temp Corrected, Arterial 7.37 7.35 - 7.45 03/22/2025 11:28 AM EDT [facility] pCO2, Temp Corrected, Arterial 42 32 - 45 mm Hg 03/22/2025 11:28 AM EDT [facility] pO2, Temp Corrected, Arterial 251(H) 83 - 108 mm Hg 03/22/2025 11:28 AM EDT [facility] [employer] ID Selene Cardona 03/22/2025 11:28 AM EDT [facility] Blood, Arterial Whole blood specimen / Unknown 03/22/2025 11:26 AM EDT 03/22/2025 11:28 AM EDT Musa Rosado MD LAB POINT OF CARE TE ST DOCKED DEVICE UNSOLICITED RESULTS Final Result Performing Organization Address City/State/[facility] Co de Phone Number [facility] [address] [place] [address] * POCT ACT (03/22/2025 11:22 AM EDT) [facility] Signature ACT+ (HIGH RANGE) 534 68 - 600 Seconds 03/22/2025 11:31 AM EDT [facility] [employer] ID Selene Cardona 03/22/2025 11:31 AM EDT [facility] ACT Device ID [id number] 03/22/2025 11:31 AM EDT [facility] Comment 03/22/2025 11:31 AM EDT [facility] Comment: ACT performed by staff [...] ST DOCKED DEVICE UNSOLICITED RESULTS Final Result [facility] [address] [place] [address] * (ABNORMAL) POCT arterial blood gas gem (03/22/2025 10:55 AM EDT) pH, Arterial 7.40 7.35 - 7.45 03/22/2025 10:56 AM EDT [facility] pCO2, Arterial 41 32 - 45 mm Hg 03/22/2025 10:56 AM EDT [facility] pO2, Arterial 183(H) 83 - 108 mm Hg 03/22/2025 10:56 AM EDT [facility] SO2, Arterial 97 94 - 98 % 03/22/2025 10:56 AM EDT [facility] Base Excess, Arterial 0.5 -2 - 3 mmol/L 03/22/2025 10:56 AM EDT [facility] HCO3, Arterial 25.4 22 - 26 mmol/L 03/22/2025 10:56 AM EDT [facility] Total Hemoglobin, Arterial, Whole Blood 12.6(L) 13.7 - 17.5 g/dL 03/22/2025 10:56 AM EDT [facility] Hematocrit, Arterial 38.0(L) 40 - 51.0 % 03/22/2025 10:56 AM EDT [facility] Sodium, Arterial 139 136 - 145 mmol/L 03/22/2025 10:56 AM EDT [facility] Potassium, Arterial 4.1 3.6 - 4.9 mmol/L 03/22/2025 10:56 AM EDT [facility] Chloride, Whole Blood 107 97 - 107 mmol/L 03/22/2025 10:56 AM EDT [facility] Glucose, Arterial 157(H) 74 - 99 mg/dL 03/22/2025 10:56 AM EDT [facility] Ionized Calcium, Arterial 4.7 4.6 - 5.1 mg/dL 03/22/2025 10:56 AM EDT [facility] Lactate, Arterial 1.1 0.5 - 1.6 mmol/L 03/22/2025 10:56 AM EDT [facility] Body Temperature 37.0 Celsius 03/22/2025 10:56 AM EDT [facility] pH, Temp Corrected, Arterial 7.40 7.35 - 7.45 03/22/2025 10:56 AM EDT [facility] pCO2, Temp Corrected, Arterial 41 32 - 45 mm Hg 03/22/2025 10:56 AM EDT [facility] pO2, Temp Corrected, Arterial 183(H) 83 - 108 mm Hg 03/22/2025 10:56 AM EDT [facility] [employer] ID Selene Cardona 03/22/2025 10:56 AM EDT [facility] Blood, Arterial Whole blood specimen / Unknown 03/22/2025 10:55 AM EDT 03/22/2025 10:56 AM EDT us Musa Rosado MD LAB POINT OF CARE TE ST DOCKED DEVICE UNSOLICITED RESULTS Final Result Performing Organization Address City/State/[facility] Co de Phone Number [facility] [address] [place] [address] * POCT ACT (03/22/2025 10:52 AM EDT) ACT+ (HIGH RANGE) 599 68 - 600 Seconds 03/22/2025 11:02 AM EDT [facility] [employer] ID Selene Cardona 03/22/2025 11:02 AM EDT [facility] ACT Device ID [id number] 03/22/2025 11:02 AM EDT [facility] Comment 03/22/2025 11:02 AM EDT [facility] Comment: ACT performed by staff [...] ST DOCKED DEVICE UNSOLICITED RESULTS Final Result [facility] [address] LAB [address] [place] [address] * (ABNORMAL) POCT arterial blood gas gem (03/22/2025 10:04 AM EDT) pH, Arterial 7.36 7.35 - 7.45 03/22/2025 10:06 AM EDT [facility] pCO2, Arterial 46(H) 32 - 45 mm Hg 03/22/2025 10:06 AM EDT [facility] pO2, Arterial 178(H) 83 - 108 mm Hg 03/22/2025 10:06 AM EDT [facility] SO2, Arterial 97 94 - 98 % 03/22/2025 10:06 AM EDT [facility] Base Excess, Arterial 0.1 -2 - 3 mmol/L 03/22/2025 10:06 AM EDT [facility] HCO3, Arterial 26.0 22 - 26 mmol/L 03/22/2025 10:06 AM EDT [facility] Total Hemoglobin, Arterial, Whole Blood 13.3(L) 13.7 - 17.5 g/dL 03/22/2025 10:06 AM EDT [facility] Hematocrit, Arterial 40.0 40 - 51.0 % 03/22/2025 10:06 AM EDT [facility] Sodium, Arterial 139 136 - 145 mmol/L 03/22/2025 10:06 AM EDT [facility] Potassium, Arterial 4.1 3.6 - 4.9 mmol/L 03/22/2025 10:06 AM EDT [facility] Chloride, Whole Blood 105 97 - 107 mmol/L 03/22/2025 10:06 AM EDT [facility] Glucose, Arterial 174(H) 74 - 99 mg/dL 03/22/2025 10:06 AM EDT [facility] Ionized Calcium, Arterial 4.9 4.6 - 5.1 mg/dL 03/22/2025 10:06 AM EDT [facility] Lactate, Arterial 1.2 0.5 - 1.6 mmol/L 03/22/2025 10:06 AM EDT [facility] Body Temperature 37.0 Celsius 03/22/2025 10:06 AM EDT [facility] pH, Temp Corrected, Arterial 7.36 7.35 - 7.45 03/22/2025 10:06 AM EDT [facility] pCO2, Temp Corrected, Arterial 46(H) 32 - 45 mm Hg 03/22/2025 10:06 AM EDT [facility] pO2, Temp Corrected, Arterial 178(H) 83 - 108 mm Hg 03/22/2025 10:06 AM EDT [facility] [employer] ID Temo Mendoza 03/22/2025 10:06 AM EDT [facility] Blood, Arterial Whole blood specimen / Unknown 03/22/2025 10:04 AM EDT 03/22/2025 10:06 AM EDT Musa Rosado MD LAB POINT OF CARE TE ST DOCKED DEVICE UNSOLICITED RESULTS Final Result [facility] [address] [place] [address] * (ABNORMAL) POCT arterial blood gas gem (03/22/2025 8:01 AM EDT) pH, Arterial 7.44 7.35 - 7.45 03/22/2025 9:00 AM EDT [facility] pCO2, Arterial 39 32 - 45 mm Hg 03/22/2025 9:00 AM EDT [facility] pO2, Arterial 78(L) 83 - 108 mm Hg 03/22/2025 9:00 AM EDT [facility] SO2, Arterial 96 94 - 98 % 03/22/2025 9:00 AM EDT [facility] Base Excess, Arterial 2.3 -2 - 3 mmol/L 03/22/2025 9:00 AM EDT [facility] HCO3, Arterial 26.5(H) 22 - 26 mmol/L 03/22/2025 9:00 AM EDT [facility] Total Hemoglobin, Arterial, Whole Blood 13.8 13.7 - 17.5 g/dL 03/22/2025 9:00 AM EDT [facility] Hematocrit, Arterial 41.0 40 - 51.0 % 03/22/2025 9:00 AM EDT [facility] Sodium, Arterial 139 136 - 145 mmol/L 03/22/2025 9:00 AM EDT [facility] Potassium, Arterial 3.8 3.6 - 4.9 mmol/L 03/22/2025 9:00 AM EDT [facility] Chloride, Whole Blood 104 97 - 107 mmol/L 03/22/2025 9:00 AM EDT [facility] Glucose, Arterial 207(H) 74 - 99 mg/dL 03/22/2025 9:00 AM EDT [facility] Ionized Calcium, Arterial 5.0 4.6 - 5.1 mg/dL 03/22/2025 9:00 AM EDT [facility] Lactate, Arterial 1.1 0.5 - 1.6 mmol/L 03/22/2025 9:00 AM EDT [facility] Body Temperature 37.0 Celsius 03/22/2025 9:00 AM EDT [facility] pH, Temp Corrected, Arterial 7.44 7.35 - 7.45 03/22/2025 9:00 AM EDT [facility] pCO2, Temp Corrected, Arterial 39 32 - 45 mm Hg 03/22/2025 9:00 AM EDT [facility] pO2, Temp Corrected, Arterial 78(L) 83 - 108 mm Hg 03/22/2025 9:00 AM EDT [facility] [employer] ID Ludin Aguiar 03/22/2025 9:00 AM EDT [facility] Blood, Arterial Whole blood specimen / Unknown 03/22/2025 8:01 AM EDT 03/22/2025 9:00 AM EDT us Musa Rosado MD LAB POINT OF CARE TE ST DOCKED DEVICE UNSOLICITED RESULTS Final Result [facility] [address] [place] [id number] * POCT ACT (03/22/2025 7:57 AM EDT) ACT+ (HIGH RANGE) 107 68 - 600 Seconds 03/22/2025 8:02 AM EDT [facility] [employer] ID Jean Acevedo 03/22/2025 8:02 AM EDT [facility] ACT Device ID [id number] 03/22/2025 8:02 AM EDT [facility] Comment 03/22/2025 8:02 AM EDT [facility] Comment: ACT performed by staff [...] UNSOLICITED RESULTS Final Result Performing Organization Address [facility] Co de Phone Number [facility] [address] [facility] [address] [place] [address] * APTT (03/22/2025 6:32 AM EDT) aPTT 28 25 - 35 sec LAB COAGULATION METHOD 03/22/2025 6:58 AM EDT [facility] Blood Venous blood specimen / Unknown Venipuncture / Unknown 03/22/2025 6:32 AM EDT 03/22/2025 6:38 AM EDT us Zulay Syed APRN LAB BLOOD ORDERABLES Final R esult [facility] [address] [place] [address] * Protime-INR (03/22/2025 6:32 AM EDT) Prothrombin Time 13.6 12.0 - 14.3 sec LAB COAGULATION METHOD 03/22/2025 6:58 AM EDT [facility] INR 1.0 0.9 - 1.1 LAB COAGULATION METHOD 03/22/2025 6:58 AM EDT [facility] Blood Venous blood specimen / Unknown Venipuncture / Unknown 03/22/2025 6:32 AM EDT 03/22/2025 6:38 AM EDT Narrative [facility] - 03/22/2025 6:58 AM EDT OPTIMAL INR RANGES FOR PATIENT ON ORAL ANTICOAGULANT THERAPY Prevention of venous thromboembolism INR 2.0 to 3.0 In patients with heart disease: Atrial fibrillation INR 2.0 to 3.0 Valvular heart disease INR 2.0 to 3.0 Tissue heart valves INR 2.0 to 3.0 Mechanical prosthetic valves INR 2.5 to 3.5 Prevention of recurrent AL INR 2.5 to 3.5 us Zulay Syed APRN LAB BLOOD ORDERABLES Final R esult [facility] [address] [place] [address] * (ABNORMAL) Comprehensive metabolic panel (03/22/2025 6:32 AM EDT) Glucose, Plasma 180(H) 74 - 99 mg/dL 03/22/2025 7:10 AM EDT [facility] BUN, Plasma 20 7 - 21 mg/dL 03/22/2025 7:10 AM EDT [facility] Creatinine, Plasma 1.29(H) 0.70 - 1.20 mg/dL 03/22/2025 7:10 AM EDT [facility] BUN/Creatinine Ratio 16 03/22/2025 7:10 AM EDT [facility] Sodium, Plasma 139 136 - 145 mmol/L 03/22/2025 7:10 AM EDT [facility] Potassium, Plasma 3.9 3.6 - 4.9 mmol/L 03/22/2025 7:10 AM EDT [facility] Chloride, Plasma 104 97 - 107 mmol/L 03/22/2025 7:10 AM EDT [facility] CO2, Plasma 24 22 - 29 mmol/L 03/22/2025 7:10 AM EDT [facility] Anion Gap 11 6 - 16 mmol/L 03/22/2025 7:10 AM EDT [facility] Total Calcium, Plasma 9.5 8.9 - 10.2 mg/dL 03/22/2025 7:10 AM EDT [facility] Total Protein 7.2 6.3 - 7.9 g/dL 03/22/2025 7:10 AM EDT [facility] Albumin, Plasma 4.4 3.5 - 5.2 g/dL 03/22/2025 7:10 AM EDT [facility] AST, Plasma 24 10 - 50 U/L 03/22/2025 7:10 AM EDT [facility] Comment:Hemolyzed, result ma y be falsely increased. ALT, Plasma 28 10 - 50 U/L 03/22/2025 7:10 AM EDT [facility] Alkaline Phosphatase, Plasma 41 40 - 115 U/L 03/22/2025 7:10 AM EDT [facility] Total Bilirubin, Plasma 0.4 0.2 - 1.1 mg/dL 03/22/2025 7:10 AM EDT [facility] eGFRcr 70.6 mL/min/1.7 3m*2 03/22/2025 7:10 AM EDT [facility] Comment:Reported eGFRcr in m L/min/1.73m2 is based the CKD-EPI 2020 equation that does not use a race coefficient. Blood Venous blood specimen / Unknown Venipuncture / Unknown 03/22/2025 6:32 AM EDT 03/22/2025 6:38 AM EDT us Zulay Syed APRN LAB BLOOD ORDERABLES Final R esult [facility] [address] [place] [address] * CBC (03/22/2025 6:32 AM EDT) WBC Count 5.45 3.70 - 10.30 10*3/uL LAB HEMATOLOGY METHOD 03/22/2025 7:04 AM EDT [facility] RBC Count 4.78 4.60 - 6.10 10*6/uL LAB HEMATOLOGY METHOD 03/22/2025 7:04 AM EDT [facility] HGB 14.7 13.7 - 17.5 g/dL LAB HEMATOLOGY METHOD 03/22/2025 7:04 AM EDT [facility] HCT 42.5 40.0 - 51.0 % LAB HEMATOLOGY METHOD 03/22/2025 7:04 AM EDT [facility] Platelet Count 183 155 - 369 10*3/uL LAB HEMATOLOGY METHOD 03/22/2025 7:04 AM EDT [facility] MCV 89 79 - 98 fL LAB HEMATOLOGY METHOD 03/22/2025 7:04 AM EDT [facility] MCH 30.8 26.0 - 32.0 pg LAB HEMATOLOGY METHOD 03/22/2025 7:04 AM EDT [facility] MCHC 34.6 30.7 - 35.5 g/dL LAB HEMATOLOGY METHOD 03/22/2025 7:04 AM EDT [facility] RDW 13.3 11.5 - 14.5 % LAB HEMATOLOGY METHOD 03/22/2025 7:04 AM EDT [facility] MPV 11.2 8.8 - 12.5 fL LAB HEMATOLOGY METHOD 03/22/2025 7:04 AM EDT [facility] nRBC 0.0 <=0.0 per 100 WBCs LAB HEMATOLOGY METHOD 03/22/2025 7:04 AM EDT [facility] Blood Venous blood specimen / Unknown Venipuncture / Unknown 03/22/2025 6:32 AM EDT 03/22/2025 6:38 AM EDT us Zulay Syed APRN LAB BLOOD ORDERABLES Final R esult Performing Organization Address City/State/[facility] Co de Phone Number [facility] [address] [place] [address] * (ABNORMAL) POCT glucose meter (03/22/2025 6:31 AM EDT) POCT Glucose 188(H) 74 - 99 mg/dL 03/22/2025 6:33 AM EDT [facility] Comment:Accuracy of a glucos e [...] Comment 03/22/2025 6:33 AM EDT [facility] [employer] ID Beverly Romano 03/22/2025 6:33 AM EDT [facility] Device ID [id number] 03/22/2025 6:33 AM EDT [facility] Specimen Type POC Venous 03/22/2025 6:33 AM EDT [facility] Blood Venous blood specimen / Unknown 03/22/2025 6:31 AM EDT 03/22/2025 6:33 AM EDT Musa Rosado MD LAB POINT OF CARE TE ST DOCKED DEVICE UNSOLICITED RESULTS Final Result Performing Organization Address City/State/[facility] Co de Phone Number [facility] [address] [phone] documented in this encounter Visit Diagnoses Diagnosis CAD (coronary artery disease)- Primary Coronary atherosclerosis of unspecified type of vessel, rincon or graft CAD, multiple vessel S/P CABG [...] Coronary atherosclerosis of unspecified type of vessel, rincon or graft CAD, multiple vessel S/P CABG [...] PM EDT 4 mg HYDROmorphone 1 mg/mL [employer]CH [employer]IVESTOCK (naive protocol) Patient [employer] Dose: 0.2 mg, [employer]STOCK Lockout: 6 Minutes, Continuous Dose (MG/hr): 0 [...] meals, First dose (after last modification) on [facility] 03/26/25 at 0830, Until Discontinued, Routine Given 03/26/2025 1:47 PM EDT 6 Units Right Upper Arm (Katerin k) Given 03/26/2025 8:57 AM EDT 6 Units Ri ght Upper Arm (Back) Insulin Lispro (Admelog, HumaLOG) 100 UNIT/ML injection 8 Units 8 Units, Subcutaneous, 3 times daily with meals, First dose (after last modification) on [facility] 03/26/25 at 1730, Until Discontinued, Routine Given 03/26/2025 6:08 PM EDT 8 Units Left Upper Arm (Back) insulin regular in sodium chloride 0.9 % 1 UNIT/ML infusion (Standard Insulin Protocol) 0.5-30 Units/hr (0.5-30 mL/hr), Intravenous, Titrated, Starting on [facility] 03/22/25 at 1645, Until Brittany 03/24/25 at [...] 24 hours, First dose on [facility] 03/22/25 at 2215, Until Discontinued, Administer over [...] Brittany 03/24/25 at 0900, Last dose on [facility] 03/26/25 at 0900, Routine Given 03/25/2025 8:37 AM EDT 30 mL Given 03/24/2025 8:26 AM EDT 30 mL magnesium hydroxide (Milk of Magnesia) 400 MG/5ML suspension 30 mL 30 mL, Oral, Daily, 8 doses, First dose (after last modification) on 03/26/25 at 0900, Last dose on [facility] 04/02/25 at 0900, Routine, Recovery(Phase II-Outpatient)/On Unit(Inpatient) [...] Maureen Bang RN)[phone] (Given - Provider: Sonia Martell RN) 0923 (Given - Provider: Beverly Meeks [...] Provider: Maureen Bang RN)[phone] (Given - Provider: Sonai Martell RN)[phone] (Given - Provider: Afshan Roca [...] - Provider: Afshan Roca RN)[phone] (Return to [facility] - Provider: Maureen Bang RN)1745 (Given - [...] documented as of this encounter Care Teams Title Searcher Relationship Specialty Start Date End Date David Iverson MD PCP - General 06/06/22 Ludin Gonzalez MD [address] [place] [address] Referring Physician 02/18/25 documented as of this encounter
--- OUTSIDE RECORDS SUMMARY | 2025-04-14 14:04 | XMS_ITS | Encounter Summary ---
Author Organization Healthcare Address [address] [place] [address] Care Team Providers Care Gold Blower Name Role Phone Dvaid Iverson MD Primary Care Provider Ludin Gonzalez MD Unavailable [phone] Encounter Details Date Type Department Care Team (Latest Contact Info) Description 04/14/2025 2:04 PM EDT - 04/14/2025 11:59 PM EDT [facility] En[facility] [address], [address] [place] [address] Coronary artery disease involving [place] heart without angina pectoris, unspecified vessel or [...] the past 12 months has th e [employer], gas, oil, or water company threatened to [...] Description 06/13/2025 11:40 AM EDT Office Visit [facility] Nephrology, Bone & Mineral Metabolism [address], [address] [place] [address] Sonia Medley MD [address] [place] [address] documented as of this encounter Goals Goal Patient Goal Type Associated Problems Recent Progress Patient-Stated? 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 Syed, LICENSED PRACTICAL NURSE INSTRUCTOR documented as of this encounter Procedures Procedure Name Priority Date/Time Associated Diagnosis Comments XR CHEST 2 VIEWS Routine 04/14/2025 2:20 PM EDT Coronary artery disease involving [place] heart without angina pectoris, unspecified vessel or [...] Visit Diagnoses Diagnosis Coronary artery disease involving [place] heart without angina pectoris, unspecified vessel or [...] documented as of this encounter Care Teams Gold Blower Relationship Specialty Start Date End Date David Iverson MD PCP - General 06/06/22 Ludin Gonzalez MD [address] [place] [address] Referring Physician 02/18/25 documented as of this encounter
--- OUTSIDE RECORDS SUMMARY | 2025-04-14 15:40 | XMS_ITS | Encounter Summary ---
Author Organization Healthcare Address [address] [place] [address] Care Team Providers Care Pension Administrator Name Role Phone David Iverson MD Primary Care Provider [phone] Ludin Gonzalez MD Unavailable [phone] Encounter Details Date Type Department Care Team (Late st Contact Info) Description 04/14/2025 3:40 PM EDT Office Visit [facility] Cardiothoracic [address], [address] [place] [address] Musa Rosado MD [address] [place] [address] Coronary artery disease involving point lay ira heart without angina pectoris, unspecified vessel or [...] were you homeless or living in a group home (including now)? No 03/23/2025 Utilities Answer Date Recorded In the past 12 months has th e [employer], gas, oil, or water company threatened to [...] Sign Reading Time Taken Comments Blood Pressure 114/75 04/14/2025 2:56 PM EDT Pulse 85 04/14/2025 2:56 PM EDT Temperature - - Respiratory Rate - - Oxygen Saturation 97% 04/14/2025 2:56 PM EDT Inhaled Oxygen Concentration - - Weight 99.7 kg (219 lb 14.5 oz) 04/14/2025 2:56 PM EDT Height 182.9 cm (6') 04/14/2025 2:56 PM EDT Body Mass Index 29.82 04/14/2025 2:56 PM EDT documented in this encounter Functional Status * Over the past 2 weeks, how often have you been bothered by any of the following problems? Question Answer Date of Assessment Author Little interest or pleasure in doing things Not at all 04/14/2025 3:05 PM EDT Stephanie Corrales Feeling down, depressed, or hopeless Not at all 04/14/2025 3:05 PM EDT Stephanie Corrales Patient Health Questionnaire -2 Score 0 04/14/2025 3:05 PM EDT Stephanie Corrales documented as of this encounter Miscellaneous Notes * Progress Notes - Montana Torres PA - 04/14/2025 3:40 PM EDT Reason for visit / Chief Complaint: S/p CABG x4 on 03/22, 1st post-op visit History of present illness: Lizandro Sprague is a 45 y.o. male with a history of hypertension, hyperlipidemia, DM II, CKD3, GERD, and obesity referred to us in consultation from Dr Gonzalez in regards to CABG evaluation. He underwent CABG x 4 on 03/22/[address] Rosado. No significant post-op complications and he was discharged home on 03/30. Since returning home, he reports he had some right sided pleuritic type pain that resolved after he started using his spirometer. He has seen Dr Gonzalez and was started on dilti azem and Rivaroxaban but patient does not believe he has A-fib. Otherwise he has been doing well. He has no major complaints for us today. He denies any pain, dyspnea, palpitations, fevers, chills, or fatigue. He is eating and drinking without issue and has no GIcomplaints. He is ambulating without issue and has been sleeping at night. His incisions are healing well and stitches were removed today in clinic. His chronic comorbid conditions that impact our treatment planning include: Chronic Kidney Disease Type II Diabetes Obesity NYHA Classification: Class I: No symptoms with ordinary activity. Active Problems: Patient Active Problem List Diagnosis Date Noted BMI 29.0-29.9,adult 04/14/2025 Hypertriglyceridemia 03/26/2025 Hypoalphalipoproteinemia 03/26/2025 Cardiac volume overload 03/25/2025 Stage 3b chronic kidney disease ([facility]) 03/25/2025 Gout 03/25/2025 Chronic pain 03/25/2025 S/P CABG x 4 03/22/2025 GERD (gastroesophageal reflux disease) 03/22/2025 Poorly 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 ([facility]) 03/22/2025 Postoperative pain 03/22/2025 CAD (coronary artery disease) 02/17/2025 HLD (hyperlipidemia) 02/17/2025 Obesity (BMI 30-39.9) 02/17/2025 Hypertension 01/14/2022 Microalbuminuria 01/14/2022 Type 2 diabetes mellitus with stage 2 chronic kidney disease, with long-term current use of insulin([facility]) 01/14/2022 Medical History: Past Medical History Pertinent Negatives[1] Surgical History: Surgical History[2] Social History: Tobacco: Tobacco Use: Low Risk (04/14/2025) Patient History Smoking Tobacco Use: Never Smokeless [...] Start Date End Date Taking? Authorizing Provider acetaminophen (Tylenol) 500 MG tablet Take 2 tablets by mouth every 6 hours as needed for pain. 03/30/25 Yes Lian Dobbs APRN allopurinol (Zyloprim) 300 MG tablet Take by mouth 1 (one) time each day. Yes Provider, MD Chavez aspirin 81 MG EC tablet Take 1 tablet by mouth daily. Yes Provider, Historical, MD atorvastatin (Lipitor) 80 MG tablet Take 1 tablet by mouth nightly. 03/30/25 Yes Lian Dobbs APRN dilTIAZem (Cardizem) 120 MG immediate release tablet Take 1 tablet by mouth daily. Yes Chavez Lambert MD fenofibrate (Tricor) 145 MG tablet Take 1 tablet by mouth daily. 11/29/22 Yes Chavez Lambert MD gabapentin (Neurontin) 300 MG capsule Take 1 capsule by mouth 2 times a day. Yes Chavez Lambert MD Kerendia 10 MG tablet Take 10 mg by mouth daily. 04/09/23 Yes Chavez Lambert MD Lantus SoloStar 100 UNIT/ML injection pen Inject 28 Units under the skin nightly. 03/30/25 Yes Lian Dobbs APRN metoprolol tartrate (Lopressor) 25 MG tablet Take 0.5 tablets by mouth 2 times a day. Patient taking differently: Take 2 tablets by mouth daily. 03/30/25 07/28/25 Yes Lian Dobbs APRN naloxone (Narcan) 4 mg/0.1 mL nasal spray 1. Give 1 spray in nostril for no/slow breathing or cannot wake after opioid use 2. Call 911 3. Repeat in other nostril if symptoms continue 03/30/25 Yes Lian Dobbs APRN nitroglycerin (Nitrostat) 0.4 MG SL tablet DISSOLVE 1 TABLET UNDER THE TONGUE EVERY 5 MINUTES NEEDED FOR CHEST PAIN. DO NOT EXCEED A TOTAL OF 3 DOSES IN 15 MINUTES. IF NO RELIEF CALL 911. 02/23/25 Yes Chavez Lambert MD NovoLOG FLEXPEN 100 UNIT/ML injection pen Inject 6 Units under the skin 3 times a day with meals. Correction 1:50 >150 03/30/25 Yes Lian Dobbs APRN omeprazole (PriLOSEC) [address] capsule Take 1 capsule by mouth daily. Yes Chavez Lambert MD rivaroxaban (Xarelto) 20 MG tablet Take by mouth 1 time each day with dinner. Take with food. Yes Chavez Lambert MD traMADol (Ultram) 50 MG tablet Take by mouth every 6 hours. Yes Chavez Lambert MD docusate sodium 100 MG capsule Take 100 mg by mouth 2 times a day for 10 days. Hold for loose stool Patient not taking: Reported on 04/14/2025 03/30/25 04/09/25 Lian Dobbs APRN furosemide (Lasix) 40 MG tablet Take 1 tablet by mouth daily for 3 days. Patient not taking: Reported on 04/14/2025 03/31/25 04/03/25 Lian Dobbs APRN methocarbamol (Robaxin) 500 MG tablet Take 2 tablets by mouth 4 times a day for 10 days. Patient not taking: Reported on 04/14/2025 03/30/25 04/09/25 Lian Dobbs APRN senna (Senokot) 8.6 MG tablet Take 2 tablets by mouth daily for 10 days. Hold for loose stools. Patient not taking: Reported on 04/14/2025 03/30/25 04/09/25 Lian Dobbs APRN Physical exam: Visit Vitals BP 114/75 Pulse 85 SpO2 97% GENERAL: Well-developed, well-nourished. No apparent distress. EYES: No scleral icterus or conjunctivitis HENT: Atraumatic, normocephalic, nares patent, mucus membranes moist NECK: Supple, no JVD, no evidence of bruit bilaterally RESP/CHEST: CTA bilaterally. Normal work of breathing with symmetric expansion noted. Sternum stable, incision CDI CARD: Regular rate and rhythm. Normal S1/S2. No murmur. No rub or gallop. Extremities: No lower extremity edema present. No cyanosis or clubbing. Pedal pulses palpable +2. GI: No organomegaly or masses. Soft, Nontender, nondistended. Bowel sounds present and normoactive x 4 quadrants SKIN: [place], warm, and dry. No rash, sores, or lesions. EVH sites CDI NEURO: AAOx4. Motor function intact and no focal deficits PSYCH: Mood and affect congruent and appropriate to situation. Labs Ref Range & Units 1 d ago (04/14/25) 2 wk ago (03/30/25) 2 wk ago (03/28/25) 2 wk ago (03/27/25) 2 wk ago (03/26/25) 3 wk ago (03/25/25) 3 wk ago (03/24/25) WBC Count 3.70 - 10.30 10*3/uL 7.72 7.54 6.01 5.04 4.53 6.01 11.14 High RBC Count 4.60 - 6.10 10*6/uL 4.26 Low 3.01 Low 2.89 Low 2.93 Low 2.56 Low 2.47 Low 2.80 Low HGB 13.7 - 17.5 g/dL 11.8 Low 9.0 Low 8.8 Low 8.8 Low 7.8 Low 7.5 Low 8.5 Low HCT 40.0 - 51.0 % 37.9 Low 27.9 Low 26.6 Low 27.3 Low 23.9 Low 22.8 Low 26.3 Low Platelet Count 155 - 369 10*3/uL 373 High 286 218 174 129 Low 105 Low 121 Low MCV 79 - 98 fL 89 93 92 93 93 92 94 MCH 26.0 - 32.0 pg 27.7 29.9 30.4 30.0 30.5 30.4 30.4 MCHC 30.7 - 35.5 g/dL 31.1 32.3 33.1 32.2 32.6 32.9 32.3 RDW 11.5 - 14.5 % 13.8 14.3 13.6 13.7 13.5 13.4 14.1 MPV 8.8 - 12.5 fL 11.1 10.7 10.7 10.6 11.4 11.3 11.4 nRBC <=0.0 per 100 WBCs 0.0 0.4 High 0.5 High 0.6 High 0.4 High 0.0 0.0 Component Ref Range & Units 1 d ago (04/14/25) 2 wk ago (03/30/25) 2 wk ago (03/28/25) 2 wk ago (03/27/25) 2 wk ago (03/26/25) 3 wk ago (03/25/25) 3 wk ago (03/24/25) Glucose, Plasma 74 - 99 mg/dL 249 High 172 High 196 High 200 High 268 High 183 High 164 High BUN, Plasma 7 - 21 mg/dL 16 28 High 20 18 24 High 22 High 21 Creatinine, Plasma 0.70 - 1.20 mg/dL 1.26 High 1.18 1.13 1.03 1.06 1.04 1.13 BUN/Creatinine Ratio 13 24 18 17 23 21 19 Sodium, Plasma 136 - 145 mmol/L 139 138 134 Low 138 138 136 137 Potassium, Plasma 3.6 - 4.9 mmol/L 4.4 4.1 4.2 4.3 4.0 4.3 4.4 Chloride, Plasma 97 - 107 mmol/L 102 103 102 106 104 101 104 CO2, Plasma 22 - 29 mmol/L 24 23 22 22 25 26 25 Anion Gap 6 - 16 mmol/L 13 12 10 10 9 9 8 Total Calcium, Plasma 8.9 - 10.2 mg/dL 9.5 8.9 9.1 8.8 Low 8.3 Low 8.2 Low 8.4 Low eGFRcr mL/min/1.73m*2 72.6 78.5 CM 82.7 CM 92.4 CM 89.3 CM 91.4 CM 8 Imaging COMPARISON: March 30, 2025 FINDINGS: Intact sternotomy wires but otherwise stable cardiomediastinal contours. Bibasilar atelectasis similar to the prior. No pneumothorax, consolidation, or significant pleural effusions. There may be trace pleural effusions, versus pleural scarring. IMPRESSION: No acute findings. : No echocardiogram results found for the past 12 months Cardiac Cath Results: Impression: S/p CABG x4 on post-op visit Plan: Follow up with PCP and Dr Gonzalez as scheduled. Okay for cardiac rehab in 2 weeks. Continue normal sternal precautions. RTC PRN [1] Past Medical History: Diagnosis Date CAD, multiple vessel 03/22/2025 Chronic kidney disease Coronary artery disease GERD (gastroesophageal reflux disease) Hyperlipidemia Hypertension Type 2 diabetes mellitus [2] Past Surgical History: Procedure Laterality Date CARDIAC CATHETERIZATION 02/16/2025 CORONARY ARTERY BYPASS GRAFT 03/22/2025 Coronary artery bypass grafting, endoscopic vein [id number] saphenous. -Vein the ascending aorta the 1st diagonal. -Vein from the side of the 1st diagonal graft to the 1st obtuse marginal.-Vein from ascending aorta to the posterior descending coronary artery. -Left internal mammary artery skeletonized in Situ left anterior descending coronary artery(Dr. Musa Rosado) [3] No Known Allergies Cosigned by Musa Rosado MD at 04/15/2025 5:46 PM EDT Associated attestation - Musa Rosado MD - 04/15/2025 5:46 PM EDT The patient was seen by Advanced Practice Provider (LISA) and myself--- care was reviewed with me. documented in this encounter Plan of Treatment Upcoming Encounters Date Type Department Care Team (Late st Contact Info) Description 06/13/2025 11:40 AM EDT Office Visit [facility] Nephrology, Bone & Mineral Metabolism [address], [address] [place] [address] Sonia Medley MD [address] [place] [address] Scheduled Orders Name Type Priority Associated Diagnoses Orde r Schedule ECG Adult ECG Routine Coronary artery disease involving point lay ira heart without angina pectoris, unspecified vessel or lesion type Expected: 04/14/2025, Expires: 10/14/2026 documented as of this encounter Goals Goal Patient Goal Type Associated Problems Recent Progress Patient-Stated? 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 Syed, SAP TRAINER documented as of this encounter Results * (ABNORMAL) Basic Metabolic Panel, Plasma (04/14/2025 2:28 PM EDT) Glucose, Plasma 249(H) 74 - 99 mg/dL 04/14/2025 5:17 PM EDT [facility] BUN, Plasma 16 7 - 21 mg/dL 04/14/2025 5:17 PM EDT [facility] Creatinine, Plasma 1.26(H) 0.70 - 1.20 mg/dL 04/14/2025 5:17 PM EDT [facility] BUN/Creatinine Ratio 13 04/14/2025 5:17 PM EDT [facility] Sodium, Plasma 139 136 - 145 mmol/L 04/14/2025 5:17 PM EDT [facility] Potassium, Plasma 4.4 3.6 - 4.9 mmol/L 04/14/2025 5:17 PM EDT [facility] Chloride, Plasma 102 97 - 107 mmol/L 04/14/2025 5:17 PM EDT [facility] CO2, Plasma 24 22 - 29 mmol/L 04/14/2025 5:17 PM EDT [facility] Anion Gap 13 6 - 16 mmol/L 04/14/2025 5:17 PM EDT [facility] Total Calcium, Plasma 9.5 8.9 - 10.2 mg/dL 04/14/2025 5:17 PM EDT [facility] eGFRcr 72.6 mL/min/1.7 3m*2 04/14/2025 5:17 PM EDT [facility] Comment:Reported eGFRcr in m L/min/1.73m2 is based the CKD-EPI 2020 equation that does not use a race coefficient. Blood Venous blood specimen / Unknown Venipuncture / Unknown 04/14/2025 2:28 PM EDT 04/14/2025 2:29 PM EDT us Musa Rosado MD LAB BLOOD ORDERABLES Final R esult [facility] [address] [place] [address] * (ABNORMAL) CBC W/O Differential (04/14/2025 2:28 PM EDT) WBC Count 7.72 3.70 - 10.30 10*3/uL LAB HEMATOLOGY METHOD 04/14/2025 4:26 PM EDT [facility] RBC Count 4.26(L) 4.60 - 6.10 10*6/uL LAB HEMATOLOGY METHOD 04/14/2025 4:26 PM EDT [facility] HGB 11.8(L) 13.7 - 17.5 g/dL LAB HEMATOLOGY METHOD 04/14/2025 4:26 PM EDT [facility] HCT 37.9(L) 40.0 - 51.0 % LAB HEMATOLOGY METHOD 04/14/2025 4:26 PM EDT [facility] Platelet Count 373(H) 155 - 369 10*3/uL LAB HEMATOLOGY METHOD 04/14/2025 4:26 PM EDT [facility] MCV 89 79 - 98 fL LAB HEMATOLOGY METHOD 04/14/2025 4:26 PM EDT [facility] MCH 27.7 26.0 - 32.0 pg LAB HEMATOLOGY METHOD 04/14/2025 4:26 PM EDT [facility] MCHC 31.1 30.7 - 35.5 g/dL LAB HEMATOLOGY METHOD 04/14/2025 4:26 PM EDT [facility] RDW 13.8 11.5 - 14.5 % LAB HEMATOLOGY METHOD 04/14/2025 4:26 PM EDT [facility] MPV 11.1 8.8 - 12.5 fL LAB HEMATOLOGY METHOD 04/14/2025 4:26 PM EDT [facility] nRBC 0.0 <=0.0 per 100 WBCs LAB HEMATOLOGY METHOD 04/14/2025 4:26 PM EDT [facility] Blood Venous blood specimen / Unknown Venipuncture / Unknown 04/14/2025 2:28 PM EDT 04/14/2025 2:29 PM EDT us Musa Rosado MD LAB BLOOD ORDERABLES Final R esult [facility] [address] [place] [address] * XR Chest 2 Views (04/14/2025 2:20 [...] Visit Diagnoses Diagnosis Coronary artery disease involving point lay ira heart without angina pectoris, unspecified vessel or lesion type- Primary Coronary artery disease involving point lay ira heart without angina pectoris, unspecified vessel or [...] documented as of this encounter Care Teams Pension Administrator Relationship Specialty Start Date End Date David Iverson MD PCP - General 06/06/22 Ludin Gonzalez MD [address] [place] [address] Referring Physician 02/18/25 documented as of this encounter
[2025-05-20 15:30] LABS: Alanine Aminotransferase 17 U/L (12-78); Albumin Level 4.4 g/dl (3.5-5.0); Albumin/Globulin Ratio 1.4 (1.1-1.8); Alkaline Phosphatase 62 U/L (38-126); Anion Gap 13.4 mEq/L (5-15); Aspartate Amino Transferase 23 U/L (17-59); Bilirubin,Total 0.9 mg/dl (0.2-1.3); Blood Urea Nitrogen 15 mg/dl (9-20); Calcium 9.5 mg/dl (8.4-10.2); Carbon Dioxide 25 mmol/L (22.0-30.0); Chloride 107 mmol/L (98-107); Creatinine,Serum 1.00 mg/dl (0.66-1.25); Estimated Glomerular Filt Rate 82 ml/min (>60); GFR (African American) 99 ML/MIN (>60); Globulin 3.2 g/dL (1.3-3.2); Glucose 178 mg/dl (74-100); Potassium 4.4 mmoL/L (3.5-5.1); Sodium 141 mmol/L (136-145); Total Protein,Serum 7.6 g/dl (6.3-8.2)
[2025-05-20 16:38] LABS: Hemoglobin A1C 7.1 % (4.0-6.0)
--- OUTSIDE RECORDS SUMMARY | 2025-05-23 12:54 | XMS_ITS | Clinical Summary ---
Author Organization [facility] Address [address] [place] [address] Care Team Providers Care Plasterer Maintenance Name Role Phone David Iverson MD Primary Care Provider [phone] Ludin Gonzalez MD Unavailable [phone] Allergies No known active allergies Medications allopurinol [...] tablet Take 1 tablet by mouth daily. 3 Active Kerendia 10 MG tablet Take 10 mg by mouth daily. 3 Active nitroglycerin (Nitrostat) 0.4 MG SL tablet DISSOLVE 1 TABLET UNDER THE TONGUE EVERY 5 MINUTES NEEDED FOR CHEST PAIN. DO NOT EXCEED A TOTAL OF 3 DOSES IN 15 MINUTES. IF NO RELIEF CALL 911. 5 Active atorvastatin (Lipitor) 80 MG tablet Take 1 tablet by mouth nightly. 30 tablet 5 Active Lantus SoloStar 100 UNIT/ML injection pen Inject 28 Units under the skin nightly. 5 Active NovoLOG FLEXPEN 100 UNIT/ML injection pen Inject 6 Units under the skin 3 times a day with meals. Correction 1:50 >150 5 Active acetaminophen (Tylenol) 500 MG tablet Take 2 tablets by mouth every 6 hours as needed for pain. 100 tablet Active furosemide (Lasix) 40 MG tablet Take 1 tablet by mouth daily for 3 days. 3 tablet Active Additional Information Patient not taking.Reported on 04/14/2025 methocarbamol (Robaxin) 500 MG tablet Take 2 tablets by mouth 4 times a day for 10 days. 80 tablet 5 Active Additional Information Patient not taking.Reported on 04/14/2025 naloxone (Narcan) 4 mg/0.1 mL nasal spray 1. Give 1 spray in nostril for no/slow breathing or cannot wake after opioid use 2. Call 911 3. Repeat in other nostril if symptoms continue 1 each Active metoprolol tartrate (Lopressor) 25 MG tablet Take 0.5 tablets by mouth 2 times a day. 30 tablet 3 5 07/28/20 Active Additional Information Patient taking differently: 50 mgOralDaily, Reported on 04/14/2025 rivaroxaban (Xarelto) 20 MG tablet Take by mouth 1 time each day with dinner. Take with food. Active dilTIAZem (Cardizem) 120 MG immediate release tablet Take 1 tablet by mouth daily. Active Active Problems Problem Noted Date Diagnosed Date [...] control - Pain Team consulted for IV LEAD IOS DEVELOPER - Scheduled tylenol, robaxin, gabapentin - 03/25 - discontinue IV LEAD IOS DEVELOPER, Pain to provide PO recommendations Assessment & Plan (03/24/2025 1:09 PM EDT): - Multimodal pain control - Pain Team consulted for IV LEAD IOS DEVELOPER - Restart home gabapentin when appropriate Assessment & Plan (03/23/2025 3:01 PM EDT): - Multimodal pain control - Pain Team consulted for IV LEAD IOS DEVELOPER - Restart home gabapentin when appropriate Assessment [...] Description 04/14/2025 3:40 PM EDT Office Visit [facility] Cardiothoracic [address], [address] [place] [address] Musa Rosado MD Coronary artery disease involving assiniboine and sioux heart without angina pectoris, unspecified vessel or lesion type (Primary Dx) 04/14/2025 2:04 PM EDT - 04/14/2025 11:59 PM EDT Hospital Encounter [facility] Radiology [address], [address] [place] [address] Coronary artery disease involving assiniboine and sioux heart without angina pectoris, unspecified vessel or lesion type Discharge Disposition: Home or Self Care 04/14/2025 Travel 04/13/2025 Telephone Professional [facility] Mineral Metabolism [address], [address] [place] [address] Sonia Medley MD 04/04/2025 Telephone [facility] [address] [place] [id number] Mikayla Leung 03/30/2025 Travel 03/28/2025 Travel 03/27/2025 Travel 03/26/2025 Travel 03/25/2025 Travel 03/24/2025 Travel 03/23/2025 Travel 03/22/2025 7:45 AM EDT - 03/22/2025 5:00 PM EDT Surgery [facility] OPERATING ROOM [address] [place] [id number] Musa Rosado MD CABG, 2 OR MORE VESSELS [07169 (CPT )] 03/22/2025 7:39 AM EDT Anesthesia Event [facility] RO[facility] [address] [place] [id number] Nati Aranda MD Short, Sydney A 03/22/2025 5:35 AM EDT - 03/30/2025 11:38 AM EDT Hospital Encounter [facility]patient [address] [place] [address] Musa Rosado MD CAD, multiple vessel (Primary Dx); S/P CABG x 4 Discharge Disposition: Home or Self Care 03/22/2025 Travel 03/21/2025 1:23 PM EDT - 03/21/2025 11:59 PM EDT Hospital Encounter [facility] Radiology [address], [address] [place] [address] Coronary artery disease due to calcified coronary lesion Discharge Disposition: Home or Self Care 03/21/2025 1:00 PM EDT Office Visit [facility] Cardiothoracic [address], [address] [place] [address] Musa Rosado MD Coronary artery disease involving assiniboine and sioux heart without angina pectoris, unspecified vessel or lesion type (Primary Dx); Type 2 diabetes mellitus with stage 2 chronic kidney disease, with long-term current use of insulin ([facility]); CKD (chronic kidney disease) stage 2, GFR 60-89 ml/min; Obesity (BMI 30-39.9) 03/21/2025 Travel 03/15/2025 11:30 AM EDT Pre-Admission Testing [facility] Pre-op Clinic [address], [address] [place] [address] 03/15/2025 Travel 03/14/2025 11:40 AM EDT Office Visit Professional [facility] Nephrology, Bone & Mineral Metabolism [address], [address] [place] [address] Sonia Medley MD Stage 3 chronic kidney disease, unspecified whether stage 3a or 3b CKD ([facility]/HCC) (Primary Dx) 03/14/2025 Travel 03/10/2025 Telephone Professional [facility] Nephrology, Bone & Mineral Metabolism [address], [address] [place] [address] Russel Zaman from Last 3 Months Immunizations Immunization Administration Dates Next Due Hep A, Adult 09/22/2018 Yordan COVID-19 Vaccine (Blue Cap) 18+ 06/17/20 21 Family History Medical History Relation Name [...] any time in the past 12 m [facility], were you homeless or living in [...] Metabolism [address] , [address] [place] [address] Sonia Medley MD [address] [place] [address] Health Maintenance Due Date Last Done Comments [facility]-HIV Screening 1982 [facility]-Hepatitis C Screening 1982 [facility]-Medicare Annual Wellness (AWV) 1982 [facility]-Infant/Child/Adol SDOH Screenings 1982 Diabetes: Dental Exam 01/23/1992 [facility]-Varicella Vaccines (1 of 2 - 13+ 2-dose series) 1995 [facility]-DTaP,Tdap,and Td Vaccines (1 - Tdap) 2001 [facility]-Hepatitis B Vaccines (1 of 3 - 19+ 3-dose series) 2001 [facility]-Pneumococcal Vaccine: Pediatrics (0 to 5 Years) and At-Risk Patients (6 to 49 Years) (1 of 2 - PCV) 2001 HPV Vaccines (1 - 3-dose SCDM series) 2009 [facility]-AALXV-[id number] Vaccine (2 - season) 2024 03/22/2021 [facility]-Diabetes: [...] Care Plan Autogenerated Problem No Zulay Syed, MOLECULAR BIOLOGY DIRECTOR Procedures Procedure Name Priority Date/Time Associated Diagnosis Comments CBC W/O DIFFERENTIAL Routine 04/14/2025 2:28 PM EDT Coronary artery disease involving assiniboine and sioux heart without angina pectoris, unspecified vessel or lesion type BASIC METABOLIC PANEL, PLASMA Routine 04/14/2025 2:28 PM EDT Coronary artery disease involving assiniboine and sioux heart without angina pectoris, unspecified vessel or lesion type XR CHEST 2 VIEWS Routine 04/14/2025 2:20 PM EDT Coronary artery disease involving assiniboine and sioux heart without angina pectoris, unspecified vessel or [...] UNSOLICITED RESULTS Routine 03/24/2025 11:44 AM EDT HI CRITICAL CARE, E/M 30-74 MINUTES Routine 03/24/2025 [...] UNSOLICITED RESULTS Routine 03/23/2025 1:57 PM EDT HI CRITICAL CARE, E/M 30-74 MINUTES Routine 03/23/2025 [...] 1 VIEW STAT 03/22/2025 4:46 PM EDT HI CRITICAL CARE, E/M 30-74 MINUTES Routine 03/22/2025 [...] PROCEDURE PLACEHOLDER Routine 03/22/2025 9:51 AM EDT HI INSERT/PLACE FLOW DIRECT CATH Routine 03/22/2025 8:47 AM EDT ANESTHESIA ULTRASOUND GUIDED Routine 03/22/2025 8:47 AM EDT PB ANESTHESIA NON-TIMED PROCEDURE PLACEHOLDER Routine 03/22/2025 8:47 AM EDT HI AN CENTRAL LINE DOUBLE LUMEN Routine 03/22/2025 8:47 AM EDT PB ANESTHESIA NON-TIMED PROCEDURE PLACEHOLDER Routine 03/22/2025 8:47 AM EDT PB ANESTHESIA PLACEHOLDER Routine 03/22/2025 8:03 AM EDT HI AN ELECTIVE ENDOTRACHEAL AIRWAY Routine 03/22/2025 8:03 AM EDT POCT ARTERIAL BLOOD GAS GEM UNSOLICITED RESULTS Routine 03/22/2025 8:01 AM EDT POCT ACT UNSOLICITED RESULTS Routine 03/22/2025 7:57 AM EDT HI CABG, VEIN, THREE 03/22/2025 7:26 AM EDT Coronary artery disease due to calcified coronary lesion CKD (chronic kidney disease) stage 2, GFR 60-89 ml/min 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 ([facility]) Obesity (BMI 30-39.9) APTT [...] unspecified whether stage 3a or 3b CKD ([facility]) CBC WITH AUTO DIFFERENTIAL Routine 03/21/2025 1:19 [...] whether stage 3a or 3b CKD (CMS/HCC) HEMOGLOBIN A1C Routine 02/17/2025 1:31 PM EDT Coronary artery disease involving assiniboine and sioux heart without angina pectoris, unspecified vessel or lesion type from Last 3 Months or Most Recently Relevant to Health Maintenance Results * (ABNORMAL) CBC W/O Differential (04/14/2025 2:28 PM EDT) Only the most recent of10 resultswithin [...] R esult [facility] [address] [place] [address] * (ABNORMAL) Basic Metabolic Panel, Plasma (04/14/2025 [...] R esult [facility] [address] [place] [address] * XR Chest 2 Views (04/14/2025 2:20 [...] - 99 mg/dL 03/30/2025 8:34 AM EDT [facility] Comment:Accuracy of a glucos e result [...] 03/30/2025 8:34 AM EDT [facility] Director Strategic Planning ID Katlin Cheung 03/30/2025 8:34 AM EDT [facility] Device ID [id number] 03/30/2025 8:34 AM EDT [facility] Specimen Type POC Capillary 03/30/2025 8:34 AM EDT [facility] Blood Capillary blood specimen / Unknown 03/30/2025 8:32 AM EDT 03/30/2025 8:34 AM EDT Musa Rosado MD LAB POINT OF CARE TE ST DOCKED DEVICE UNSOLICITED RESULTS Final Result Performing Organization Address City/[facility] Co de Phone Number [facility] [address] [place] [address] * Magnesium (03/28/2025 4:35 AM EDT) Only the most recent of7 resultswithin the time period is included. Magnesium, Plasma 1.9 1.9 - 2.4 mg/dL 03/28/2025 5:18 AM EDT [facility] Blood Venous blood specimen / Unknown Venipuncture / Unknown 03/28/2025 4:35 AM EDT 03/28/2025 4:42 AM EDT La Nena March APRN LAB BLOOD ORDERABLES Final Res ult Performing Organization Address City/[facility] Co de Phone Number [facility] [address] [place] [address] * (ABNORMAL) Comprehensive metabolic panel (03/28/2025 4:35 AM EDT) Only the most recent of5 resultswithin the time period is included. Glucose, [...] EDT 03/28/2025 4:42 AM EDT us La Nean March APRN LAB BLOOD ORDERABLES Final Res ult [facility] [address] [place] [address] * XR Chest 1 View (03/27/2025 4:58 [...] 03/27/2025 10:17 AM us La Nena March MOLECULAR BIOLOGY DIRECTOR IMG XR PROCEDURES Final Result * (ABNORMAL) [...] Res ult [facility] [address] [place] [address] * (ABNORMAL) Phosphorus, Plasma (03/25/2025 4:07 AM [...] esult [facility] [address] [place] [address] * HI CRITICAL CARE, E/M 30-74 MINUTES (03/24/2025 11:33 [...] R esult [facility] [address] [place] [address] * HI CRITICAL CARE, E/M 30-74 MINUTES (03/23/2025 12:34 [...] ECG Atrial Rate 77 BPM MUSE ECG HI Interval 150 ms MUSE ECG QRSD Interval 78 ms MUSE ECG QT Interval 366 ms MUSE ECG QTC Interval 414 ms MUSE ECG P Reynolds 49 degrees MUSE ECG R Reynolds -7 degrees MUSE ECG T Wave Reynolds -4 degrees MUSE ECG Diagnosis Normal sinus rhythm MUSE ECG Diagnosis ST elevation, consider early repolarization , pericarditis, or injury MUSE ECG Diagnosis Nonspecific T wave abnormality MUSE ECG Diagnosis Need clinical information and correlation MUSE ECG Diagnosis MUSE ECG Diagnosis Confirmed by Jarett Steen ([id number]) on 03/23/2025 8:36:37 AM MUSE ECG 03/23/2025 [...] R esult [facility] [address] [place] [address] * (ABNORMAL) Blood gas panel with oximetry, [...] City/[facility]/ZIP Co de Phone Number [facility] [address] [place] [address] * (ABNORMAL) Hematocrit (03/23/2025 12:13 AM EDT) Only the most recent of2 resultswithin the time period is included. Pathologist [facility] HCT 29.6(L) 40.0 - 51.0 % LAB HEMATOLOGY METHOD 03/23/2025 12:42 AM EDT [facility] Blood Arterial blood specimen / Unknown Arterial Puncture / Unknown 03/23/2025 12:13 AM EDT 03/23/2025 12:32 AM EDT us Musa Rosado MD LAB BLOOD ORDERABLES Final R esult [facility] [address] [place] [address] * (ABNORMAL) Hemoglobin (03/22/2025 8:14 PM EDT) HGB 10.4(L) 13.7 - 17.5 g/dL LAB HEMATOLOGY METHOD 03/22/2025 8:35 PM EDT [facility] Blood Arterial blood specimen / Unknown Arterial Puncture / Unknown 03/22/2025 8:14 PM EDT 03/22/2025 8:28 PM EDT us Musa Rosado MD LAB BLOOD ORDERABLES Final R esult [facility] [address] [place] [address] * HI CRITICAL CARE, E/M 30-74 MINUTES (03/22/2025 4:38 [...] developed and its performance characteristics determined by [facility] as appropriate for clinical purposes. This assay has not been cleared or approved by the FDA, but is performed in a CLIA regulated laboratory that is qualified to perform high-complexity testing. Musa Rosado MD LAB MICROBIOLOGY - GENERAL O RDERABLES Final Result Performing Organization Address [facility] Co de Phone Number [facility] [address] [place] [address] * Multi Drug Resistance Test (03/22/2025 3:52 PM EDT) Culture No growth at day 1 03/24/2025 7:31 AM EDT [facility] Swab (Nares and Lisa Rectal) Non-blood Collection / Unknown 03/22/2025 3:52 PM EDT 03/22/2025 4:37 PM EDT Narrative [facility] - 03/24/2025 7:31 AM EDT This test was developed and its performance characteristics determined by the [facility]. Although the media is FDA-approved, it is not FDA-approved for all specimen types submitted. The FDA has determined that such clearance or approval is not necessary. This test is used for surveillance purposes. It should not be regarded as investigational or for research. The [facility] is certified under the Clinical Laboratory Improvement Amendments of 1988 (CLIA-88) as qualified to perform high complexity clinical laboratory testing. Musa Rosado MD LAB MICROBIOLOGY - GENERAL O RDERABLES Final Result Performing Organization Address [facility] de Phone Number [facility] [address] [place] [address] * APTT (03/22/2025 3:52 PM EDT) Only the most recent of3 resultswithin the time period is included. aPTT 28 25 - 35 sec LAB COAGULATION METHOD 03/22/2025 5:08 PM EDT [facility] Blood Venous blood specimen / Unknown Venipuncture / Unknown 03/22/2025 3:52 PM EDT 03/22/2025 4:45 PM EDT Musa Rosado MD LAB BLOOD ORDERABLES Final R esult Performing Organization Address City/[facility] Co de Phone Number [facility] [address] [place] [address] * (ABNORMAL) Protime-INR (03/22/2025 3:52 PM EDT) Only the most recent of3 resultswithin the time period is included. Prothrombin [...] INR 2.5 to 3.5 Prevention of recurrent AK INR 2.5 to 3.5 Musa Rosado MD LAB BLOOD ORDERABLES Final R esult Performing Organization Address City/[facility] Co de Phone Number [facility] [address] [place] [address] * (ABNORMAL) POCT arterial blood gas gem (03/22/2025 3:29 PM EDT) Only the most recent of11 resultswithin the time period is included. pH, Arterial 7.36 7.35 - 7.45 03/22/2025 3:41 PM EDT [facility] pCO2, Arterial 42 32 - 45 mm Hg 03/22/2025 3:41 PM EDT [facility] pO2, Arterial 150(H) 83 - 108 mm Hg 03/22/2025 3:41 PM EDT [facility] SO2, Arterial 98 94 - 98 % 03/22/2025 3:41 PM EDT [facility] Base Excess, Arterial -1.7 -2 - 3 mmol/L 03/22/2025 3:41 PM EDT [facility] HCO3, Arterial 23.7 22 - 26 mmol/L 03/22/2025 3:41 PM EDT [facility] Total Hemoglobin, Arterial, Whole Blood 11.2(L) 13.7 - 17.5 g/dL 03/22/2025 3:41 PM T [facility] Hematocrit, Arterial 34.0(L) 40 - 51.0 % 03/22/2025 3:41 PM EDT [facility] Sodium, Arterial 141 136 - 145 mmol/L 03/22/2025 3:41 PM T [facility] Potassium, Arterial 3.8 3.6 - 4.9 mmol/L 03/22/2025 3:41 PM T [facility] Chloride, Whole Blood 109(H) 97 - 107 mmol/L 03/22/2025 3:41 PM T [facility] Glucose, Arterial 192(H) 74 - 99 mg/dL 03/22/2025 3:41 PM T [facility] Ionized Calcium, Arterial 4.6 4.6 - 5.1 mg/dL 03/22/2025 3:41 PM T [facility] Lactate, Arterial 2.0(H) 0.5 - 1.6 mmol/L 03/22/2025 3:41 PM EDT [facility] Body Temperature 37.0 Celsius 03/22/2025 3:41 PM T [facility] pH, Temp Corrected, Arterial 7.36 7.35 - 7.45 03/22/2025 3:41 PM T [facility] pCO2, Temp Corrected, Arterial 42 32 - 45 mm Hg 03/22/2025 3:41 PM T [facility] pO2, Temp Corrected, Arterial 150(H) 83 - 108 mm Hg 03/22/2025 3:41 PM T [facility] Director Strategic Planning ID Ludin Aguiar 03/22/2025 3:41 PM [facility] Blood, Arterial Whole blood specimen / Unknown 03/22/2025 3:29 PM EDT 03/22/2025 3:41 PM EDT us Musa Rosado MD LAB POINT OF CARE TE ST DOCKED DEVICE UNSOLICITED RESULTS Final Result Performing Organization Address City/[facility]/ZIP Co de Phone Number [facility] [address] [place] [address] * QPLUS (03/22/2025 2:24 PM EDT) Clot [...] Seconds 03/22/2025 2:38 PM EDT HEALTHCARE LAB Director Strategic Planning ID Ludin Aguiar 03/22/2025 2:38 PM EDT HEALTHCARE LAB Device ID [id number] 03/22/2025 2:38 PM EDT HEALTHCARE LAB Whole Blood 03/22/2025 2:24 PM EDT 03/22/2025 2:38 PM EDT us Musa Rosado MD LAB POINT OF CARE TE ST DOCKED DEVICE UNSOLICITED RESULTS Final Result Performing Organization Address City/[facility]/ZIP Co de Phone Number [facility] [address] [place] [address] * POCT ACT (03/22/2025 2:04 PM EDT) Only the most recent of8 resultswithin the time period is included. ACT+ (HIGH RANGE) 115 68 - 600 Seconds 03/22/2025 2:10 PM EDT HEALTHCARE LAB Director Strategic Planning ID Selene Cardona 03/22/2025 2:10 PM EDT [facility] ACT Device ID [id number] 03/22/2025 2:10 PM EDT HEALTHCARE LAB Comment 03/22/2025 2:10 PM EDT [facility] [...] UNSOLICITED RESULTS Final Result Performing Organization Address City/State/[facility] Co de Phone Number HEALTHCARE LAB [address] LAB [address] [place] [address] * PB ANESTHESIA NON-TIMED PROCEDURE PLACEHOLDER (03/22/2025 9:51 AM EDT) [facility] BSA 2.31 m2 CAR DO NOT SEND [...] ORDERABLES Edite d Result - Final * HI AN CENTRAL LINE DOUBLE LUMEN, PB ANESTHESIA NON-TIMED PROCEDURE PLACEHOLDER, ANESTHESIA ULTRASOUND GUIDED, HI INSERT/PLACE FLOW DIRECT CATH (03/22/2025 8:47 AM [...] Aranda MD ANESTHESIA ORDERABLES Final Result * HI AN ELECTIVE ENDOTRACHEAL AIRWAY, PB ANESTHESIA PLACEHOLDER [...] CBC and Differential (03/21/2025 1:19 PM EDT) [facility] WBC Count 6.31 3.70 - 10.30 10*3/uL [...] R esult [facility] [address] [place] [address] * Type and screen (03/21/2025 1:19 PM EDT) ABO/Rh A Positive 03/21/2025 1:09 PM EDT [facility]OD [facility] Antibody Screen Negative 03/21/2025 1:09 PM EDT BLOOD BANK Specimen Expiration 03/24/2025 23:59 03/21/2025 1:09 PM EDT BLOOD BANK Blood Venous blood specimen / Unknown Venipuncture / Unknown 03/21/2025 1:19 PM EDT 03/21/2025 1:19 PM EDT us Zulay Syed APRN LAB BLOOD BANK TEST ORDERABL ES Final Result Performing Organization Address [facility]/ZIP Co de Phone Number BLOOD BANK [address] [place] [address], * Protein, Random, Urine with Creatinine (03/21/2025 [...] ORDERABLES Fin al Result Performing Organization Address City/[facility]/ZIP Co de Phone Number [facility] [address] [place] [address] * (ABNORMAL) Urinalysis with reflex microscopic (Culture NOT Included) (03/21/2025 1:15 PM EDT) Color, Urine Yellow LAB URINALYSIS - AUTOMATED METHOD 03/21/2025 2:42 PM EDT [facility] Clarity, Urine Clear LAB URINALYSIS - AUTOMATED METHOD 03/21/2025 2:42 PM EDT [facility] Spec [place], Urine 1.023 1.005 - 1.030 LAB URINALYSIS [...] al Result [facility] [address] [place] [address] * (ABNORMAL) Hemoglobin A1c (02/17/2025 1:31 PM [...] Adults <6.0% Children and Adolescents <7.5% Source: [place] [employer]. Standards of medical care in diabetes,2017. Diabetes Care.2017:40 (suppl 1):S1-S135. us Musa Rosado MD LAB BLOOD ORDERABLES Final R esult [facility] [address] [place] [address] from Last 3 Months or Most Recently Relevant to Health Maintenance Additional Health Concerns Active Problems Noted Date Diagnosed Date Autogenerated Problem 02/17/2025 Insurance [facility] MEDIC[facility] Advance Directives * Full Code (Latest Code Status on File) Date Activated Date Inactivated Comments 03/22/2025 3:49 PM 03/30/2025 1:44 PM Question Answer Comments Patient has decision-making capacity? Yes Care Teams Plasterer Maintenance Relationship Specialty Start Date End Date David Iverson MD PCP - General 06/06/22 Ludin Gonzalez MD [address] [facility] [place] [address] [place] [address] Referring Physician 02/18/25
--- OUTSIDE RECORDS SUMMARY | 2025-05-23 12:55 | XMS_ITS | Encounter Summary ---
Author Organization Healthcare Address [address] [place] [address] Care Team Providers Care Naturopath Name Role Phone David Iverson MD Primary Care Provider Ludin Gonzalez MD Unavailable [phone] Encounter Details Date Type Department Care Team [...] Suicidal Behavior (Lifetime) No 8:00 PM EDT fAshan Roca RN documented as of this encounter Plan of Treatment Upcoming Encounters Date Type Department Care Team (Late st Contact Info) Description 06/13/2025 11:40 AM EDT Office Visit [facility] Nephrology, Bone & Mineral Metabolism [address], [address] [place] [address] Sonia Medley MD [address] [place] [address] documented as of this encounter Goals Goal Patient Goal Type Associated Problems Recent Progress Patient-Stated? 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 Syed, [employer] documented as of this encounter Visit Diagnoses [...] documented as of this encounter Care Teams Naturopath Relationship Specialty Start Date End Date David Iverson MD PCP - General 06/06/22 Ludin Gonzalez MD [address] [place] [address] Referring Physician 02/18/25 documented as of this encounter
--- OUTSIDE RECORDS SUMMARY | 2025-05-23 12:56 | XMS_ITS | Encounter Summary ---
Author Organization Healthcare Address [address] [place] [address] Care Team Providers Care Die Finisher Name Role Phone David Iverson MD Primary Care Provider [phone] Ludin Gonzalez MD Unavailable [phone] Encounter Details Date Type Department Care Team ([facility] Contact Info) Description 04/04/2025 Telephone PAV A Inpatient [address] [place] [id number] Mikayla Leung CV TELE-PROGRESSIVE Social History Tobacco [...] time in the past 12 m [facility], were you homeless or living in a [...] Nephrology, Bone & Mineral Metabolism [address] [facility], [address] [place] [address] Sonia Medley MD [address] [place] [address] documented as of this encounter Goals Goal Patient Goal Type Associated Problems Recent Progress Patient-Stated? 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 Syed, COPPER TAPPER documented as of this encounter Visit Diagnoses [...] as of this encounter Care Teams Die Finisher Relationship Specialty Start Date End Date David Iverson MD PCP - General 06/06/22 Ludin Gonzalez MD [address] [place] [address] Referring Physician 02/18/25 documented as of this encounter
--- OUTSIDE RECORDS SUMMARY | 2025-05-23 12:56 | XMS_ITS | Encounter Summary ---
Author Organization Healthcare Address [address] [place] [address] Care Team Providers Care Import/Export Administrator Name Role Phone David Iverson MD Primary Care Provider [phone] Ludin Gonzalez MD Unavailable [phone] Encounter Details Date Type Department Care Team [...] any time in the past 12 m [facility], were you homeless or living in a senior living (including now)? No 03/23/2025 Utilities Answer Date [...] [address] [facility], [address] [place] [address] Sonia Medley MD [address] [place] [address] documented as of this encounter [...] documented as of this encounter Care Teams Import/Export Administrator Relationship Specialty Start Date End Date David Iverson MD PCP - General 06/06/22 Ludin Gonzalez MD [address] [place] [address] Referring Physician 02/18/25 documented as of this encounter
--- OUTSIDE RECORDS SUMMARY | 2025-05-23 12:56 | XMS_ITS | Encounter Summary ---
Author Organization Healthcare Address [address] [place] [address] Care Team Providers Care Crystal Report Developer Name Role Phone David Iverson MD Primary Care Provider [phone] Ludin Gonzalez MD Unavailable [phone] Encounter Details Date Type Department Care Team [...] were you homeless or living in a skilled nursing (including now)? No 03/23/2025 Utilities Answer Date [...] Description 06/13/2025 11:40 AM EDT Office Visit [facility] Nephrology, Bone & Mineral Metabolism [address], [address] [place] [address] Sonia Medley MD [address] [place] [address] documented as of this encounter Goals Goal Patient Goal Type Associated Problems Recent Progress Patient-Stated? 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 Syed, RIBBER documented as of this encounter Visit Diagnoses [...] documented as of this encounter Care Teams Crystal Report Developer Relationship Specialty Start Date End Date David Iverson MD PCP - General 06/06/22 Ludin Gonzalez MD [address] [place] [address] Referring Physician 02/18/25 documented as of this encounter
--- OUTSIDE RECORDS SUMMARY | 2025-05-23 12:56 | XMS_ITS | Encounter Summary ---
Author Organization Healthcare Address [address] [place] [address] Care Team Providers Care Preventive Maintenance Coordinator Name Role Phone David Iverson MD Primary Care Provider [phone] Ludin Gonzalez MD Unavailable [phone] Encounter Details Date Type Department Care Team [...] any time in the past 12 m [facility], were you homeless or living [...] [address] [facility], [address] [place] [address] Sonia Medley MD [address] [place] [address] documented as of this encounter Goals Goal Patient Goal Type Associated Problems Recent Progress Patient-Stated? 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 Syed, STORAGE CENTER MANAGER documented as of this encounter Visit Diagnoses [...] documented as of this encounter Care Teams Preventive Maintenance Coordinator Relationship Specialty Start Date End Date David Iverson MD PCP - General 06/06/22 Ludin Gonzalez MD [facility] [place] [address] Referring Physician 02/18/25 documented as of this encounter
--- OUTSIDE RECORDS SUMMARY | 2025-05-23 12:56 | XMS_ITS | Encounter Summary ---
Author Organization Healthcare Address [address] [place] [address] Care Team Providers Care Belt Cutter Name Role Phone David Iverson MD Primary Care Provider [phone] Ludin Gonzalez MD Unavailable [phone] Encounter Details Date Type Department Care Team ([facility] Contact Info) Description 04/13/2025 Telephone [facility] Nephrology, Bone & Mineral Metabolism [address] [facility], [address] [place] [address] Sonia Medley MD [address] [facility] [address] [place] [address] Social History Tobacco Use Types [...] In the past 12 months has e [employer], gas, oil, or water [employer] threatened to shut off services in your [...] To: [address] [place] [address] Best contact number: [phone] Optimal time of day to reach caller: ANYTIME Additional comments/information from caller: None Note: Please do not reply to this message. Follow-up communication and further actions as a result of this message need to be communicated with the patient directly, if the patient is not active onMyChart. If the patient is active on MyChart, they will receive notification of the communication/outcome via [employer]topiahart. documented in this encounter Plan of Treatment Upcoming Encounters Date Type Department Care Team (Late st Contact Info) Description 06/13/2025 11:40 AM EDT Office Visit [facility] Nephrology, Bone & Mineral Metabolism [address] [facility], [address] [place] [address] Sonia Medley MD [address] [place] [address] documented as of this encounter [...] documented as of this encounter Care Teams Belt Cutter Relationship Specialty Start Date End Date David Iverson MD PCP - General 06/06/22 Ludin Gonzalez MD [address] [place] [address] Referring Physician 02/18/25 documented as of this encounter
--- OUTSIDE RECORDS SUMMARY | 2025-05-23 12:56 | XMS_ITS | Encounter Summary ---
Author Organization Healthcare Address [address] [place] [address] Care Team Providers Care Cement Grinding Mill Operator Name Role Phone David Iverson MD Primary Care Provider [phone] Ludin Gonzalez MD Unavailable [phone] Encounter Details Date Type Department Care Team [...] time in the past 12 m [facility], were you homeless or living in a [...] 06/13/2025 11:40 AM EDT Office Visit [facility] Nephrology, Bone & Mineral Metabolism [address] [facility], [address] [place] [address] Sonia Medley MD [address] [place] [address] documented as of this encounter Goals Goal Patient Goal Type Associated Problems Recent Progress Patient-Stated? 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 Syed, OPTICAL EFFECTS LAYOUT PERSON documented as of this encounter Visit Diagnoses [...] documented as of this encounter Care Teams Cement Grinding Mill Operator Relationship Specialty Start Date End Date David Iverson MD PCP - General 06/06/22 Ludin Gonzalez MD [address] [place] [address] Referring Physician 02/18/25 documented as of this encounter
--- OUTSIDE RECORDS SUMMARY | 2025-05-23 12:56 | XMS_ITS | Encounter Summary ---
Author Organization Healthcare Address [address] [place] [address] Care Team Providers Care Referral Management Liaison Name Role Phone David Iverson MD Primary Care Provider [phone] Ludin Gonzalez MD Unavailable [phone] Encounter Details Date Type Department Care Team [...] in the past 12 m [facility], were you homeless or living in a longterm (including now)? No 03/23/2025 Utilities Answer Date [...] Description 06/13/2025 11:40 AM EDT Office Visit [facility] Nephrology, Bone & Mineral Metabolism [address] [facility], [address] [place] [address] Sonia Medley MD [address] [place] [address] documented as of this encounter Goals Goal Patient Goal Type Associated Problems Recent Progress Patient-Stated? 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 Syed, BELT TENDER documented as of this encounter Visit Diagnoses [...] documented as of this encounter Care Teams Referral Management Liaison Relationship Specialty Start Date End Date David Iverson MD PCP - General 06/06/22 Ludin Gonzalez MD [address] [place] [address] Referring Physician 02/18/25 documented as of this encounter
--- OUTSIDE RECORDS SUMMARY | 2025-05-23 12:56 | XMS_ITS | Encounter Summary ---
Author Organization Healthcare Address [address] [place] [address] Care Team Providers Care Director Patient Financial Services Name Role Phone David Iverson MD Primary Care Provider [phone] Ludin Gonzalez MD Unavailable [phone] Encounter Details Date Type Department Care Team [...] Description 06/13/2025 11:40 AM EDT Office Visit [facility] Nephrology, Bone & Mineral Metabolism [address] [facility], [address] [place] [address] Sonia Medley MD [address] [place] [address] documented as of this encounter Goals Goal Patient Goal Type Associated Problems Recent Progress Patient-Stated? 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 Syed, LEAD PRINTER documented as of this encounter Visit Diagnoses [...] documented as of this encounter Care Teams Director Patient Financial Services Relationship Specialty Start Date End Date David Iverson MD PCP - General 06/06/22 Ludin Gonzalez MD [address] [place], [place] [id number] Referring Physician 02/18/25 documented as of this encounter
== END 2025-05-20 23:59 ==
LOC: LAB.DROPOF 05-23 12:52
PROVIDERS: PCP Family Medicine; Visit Provider Family Medicine
DX: E78.2 Mixed hyperlipidemia (principal); E11.9 Type 2 diabetes mellitus without complications
CPT/HCPCS: 80053; 83036

== ENCOUNTER 2025-06-08 10:01 | Outpatient (CLI) | payer MEDICARE, MEDICAID, SELFPAY ==
--- OUTSIDE RECORDS SUMMARY | 2025-04-14 14:04 | XMS_ITS | Encounter Summary ---
Author Organization Healthcare Address [address] [place] [address] Care Team Providers Care Dump Operator Name Role Phone David Iverson MD Primary Care Provider [phone] Ludin Gonzalez MD Unavailable [phone] Encounter Details Date Type Department Care Team (Latest Contact Info) Description 04/14/2025 2:04 PM EDT - 04/14/2025 11:59 PM EDT Hospital Encounter [facility] [address], [address] [place] [address] Coronary artery disease involving kiana heart without angina pectoris, unspecified vessel or lesion type Discharge Disposition: Home or Self Care Social History Tobacco Use Types Packs/Day Years Used Date Smoking Tobacco: Never Passive Smoke Exposure: Never Smokeless Tobacco: Never Alcohol Use Standard Drinks/Week Comments Never 0 (1 standard drink = 0.6 oz pur e alcohol) PHQ-2 Answer Date Recorded Patient Health Questionnaire-2 Score 0 04/14/2025 Humiliation, Afraid, Rape, and Kick questionnair e [...] the past 12 months has th e [employer], gas, oil, or water company threatened to shut off services in your home? No 03/23/2025 PHQ-2A Answer Date Recorded Depression Risk 0 03/21/2025 Sex and Gender Information Value Date Recorded Sex Assigned at Not on file Legal Sex Male 8:07 PM EDT Gender Identity Not on file Sexual Orientation Not on file documented as of this encounter Functional Status * Over the past 2 weeks, how often have you been bothered by any of the following problems? Question Answer Date of Assessment Author Little interest or pleasure in doing things Not at all 04/14/2025 3:05 PM EDT Stephanie Corrales Feeling down, depressed, or hopeless Not at all 04/14/2025 3:05 PM Stephanie Kaba Patient Health Questionnaire -2 Score 0 04/14/2025 3:05 PM Stephanie Kaba documented as of this encounter Medications at [...] tablet by mouth nightly. 30 tablet 03/30/2025 dilTIAZem (Cardizem) 120 MG immediate release tablet Take 1 tablet by mouth daily. fenofibrate (Tricor) 145 MG tablet Take 1 tablet by mouth daily. 11/29/2022 gabapentin (Neurontin) 300 MG capsule Take 1 capsule by mouth 2 times a day. Kerendia 10 MG tablet Take 10 mg by mouth daily. 04/09/2023 Lantus SoloStar 100 UNIT/ML injection pen Inject 28 Units under the skin nightly. 03/30/2025 metoprolol tartrate (Lopressor) 25 MG tablet [...] capsule Take 1 capsule by mouth daily. rivaroxaban (Xarelto) 20 MG tablet Take by mouth 1 time each day with dinner. Take with food. traMADol (Ultram) 50 MG tablet Take by mouth every 6 hours. documented as of this encounter Plan of Treatment Upcoming Encounters Date Type Department Care Team (Late st Contact Info) Description 06/13/2025 11:40 AM EDT Office Visit [facility] Nephrology, Bone & Mineral Metabolism [address], [address] [place] [address] Sonia Medley MD [address] [place] [address] documented as of this encounter Goals Goal Patient Goal Type Associated Problems Recent Progress Patient-Stated? 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 Syed, BARREL FINISHER documented as of this encounter Procedures Procedure Name Priority Date/Time Associated Diagnosis Comments XR CHEST 2 VIEWS Routine 04/14/2025 2:20 PM EDT Coronary artery disease involving kiana heart without angina pectoris, unspecified vessel or lesion type documented in this encounter Results * XR Chest 2 Views (04/14/2025 2:20 PM EDT) Anatomical Region Laterality Modality Chest Digital Radiogra phy Impressions 04/14/2025 3:38 PM EDT No acute findings. CRITICAL RESULT: No. COMMUNICATION: Per this written report. By electronically signing this report, I, the attending physician, attest that I have personally reviewed the images/data for the above examination(s) and agree with the final edited report. Drafted by Isak Sexton on 04/14/2025 2:37 PM Final report signed by Musa Cole MD on 04/14/2025 3:38 PM Narrative 04/14/2025 3:38 PM EDT CLINICAL INDICATION: cad TECHNIQUE: XR CHEST 2 VIEWS COMPARISON: March 30, 2025 FINDINGS: Intact sternotomy wires but otherwise stable cardiomediastinal contours. Bibasilar atelectasis similar to the prior. No pneumothorax, consolidation, or significant pleural effusions. There may be trace pleural effusions, versus pleural scarring. Procedure Note Musa Cole MD - 04/14/2025 CLINICAL INDICATION: cad TECHNIQUE: XR CHEST 2 VIEWS COMPARISON: March 30, 2025 FINDINGS: Intact sternotomy wires but otherwise stable cardiomediastinal contours.Bibasilar atelectasis similar to the prior. No pneumothorax,consolidation, or significant pleural effusions. There may be tracepleural effusions, versus pleural scarring. IMPRESSION: No acute findings. CRITICAL RESULT: No. COMMUNICATION: Per this written report. By electronically signing this report, I, the attending physician, attliliamthat I have personally reviewed the images/data for the aboveexamination(s) and agree with the final edited report. Drafted by Isak Sexton on 04/14/2025 2:37 PM Final report signed by Musa Cole MD on 04/14/2025 3:38 PM Musa Rosado MD IMG XR PROCEDURES Final Resu lt documented in this encounter Visit Diagnoses Diagnosis Coronary artery disease involving kiana heart without angina pectoris, unspecified vessel or lesion type documented in this encounter Additional Health Concerns Active Problems Noted Date Diagnosed Date Autogenerated Problem 02/17/2025 Assessment Noted Time A fall risk assessment has been complete d for the patient 04/14/2025 3:05 PM EDT A Body Mass Index follow-up plan has been documented for the patient 04/14/2025 3:44 PM EDT documented as of this encounter Care Teams Dump Operator Relationship Specialty Start Date End Date David Iverson MD PCP - General 06/06/22 Ludin Gonzalez MD [address] [place] [address] Referring Physician 02/18/25 documented as of this encounter
--- OUTSIDE RECORDS SUMMARY | 2025-04-14 15:40 | XMS_ITS | Encounter Summary ---
Author Organization Healthcare Address [address] [place] [address] Care Team Providers Care Riveting Machine Operator Name Role Phone David Iverson MD Primary Care Provider [phone] Ludin Gonzalez MD Unavailable [phone] Encounter Details Date Type Department Care Team (Late st Contact Info) Description 04/14/2025 3:40 PM EDT Office Visit [facility] [address], [address] [place] [address] Musa Rosado MD [address] [place] [address] Coronary artery disease involving [place] heart without angina pectoris, unspecified vessel or [...] the past 12 months has th e [employer], gas, oil, or water company threatened to [...] overload 03/25/2025 Stage 3b chronic kidney disease ([facility]) 03/25/2025 Gout 03/25/2025 Chronic pain 03/25/2025 S/P CABG x 4 03/22/2025 GERD (gastroesophageal reflux disease) 03/22/2025 Poorly 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 ([facility]) 03/22/2025 Postoperative pain 03/22/2025 CAD (coronary artery disease) 02/17/2025 HLD (hyperlipidemia) 02/17/2025 Obesity (BMI 30-39.9) 02/17/2025 Hypertension 01/14/2022 Microalbuminuria 01/14/2022 Type 2 diabetes mellitus with stage 2 chronic kidney disease, with long-term current use of insulin([facility]) 01/14/2022 Medical History: Past Medical History Pertinent [...] present and normoactive x 4 quadrants SKIN: [place], warm, and dry. No rash, sores, or [...] 03/22/2025 Coronary artery bypass grafting, endoscopic vein [id number] saphenous. -Vein the ascending aorta the 1st [...] Description 06/13/2025 11:40 AM EDT Office Visit [facility] Nephrology, Bone & Mineral Metabolism [address], [address] [place] [address] Sonia Medley MD [address] [place] [address] Scheduled Orders Name Type Priority Associated Diagnoses Orde r Schedule ECG Adult ECG Routine Coronary artery disease involving [place] heart without angina pectoris, unspecified vessel or lesion type Expected: 04/14/2025, Expires: 10/14/2026 documented as of this encounter Goals Goal Patient Goal Type Associated Problems Recent Progress Patient-Stated? 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 Syed, CAD ENGINEER documented as of this encounter Results * (ABNORMAL) Basic Metabolic Panel, Plasma (04/14/2025 2:28 PM EDT) Glucose, Plasma 249(H) 74 - 99 mg/dL 04/14/2025 5:17 PM EDT [facility] BUN, Plasma 16 7 - 21 mg/dL 04/14/2025 5:17 PM EDT [facility] Creatinine, Plasma 1.26(H) 0.70 - 1.20 mg/dL 04/14/2025 5:17 PM EDT [facility] BUN/Creatinine Ratio 13 04/14/2025 5:17 PM EDT [facility] Sodium, Plasma 139 136 - 145 mmol/L 04/14/2025 5:17 PM EDT [facility] Potassium, Plasma 4.4 3.6 - 4.9 mmol/L 04/14/2025 5:17 PM EDT [facility] Chloride, Plasma 102 97 - 107 mmol/L 04/14/2025 5:17 PM EDT [facility] CO2, Plasma 24 22 - 29 mmol/L 04/14/2025 5:17 PM EDT [facility] Anion Gap 13 6 - 16 mmol/L 04/14/2025 5:17 PM EDT [facility] Total Calcium, Plasma 9.5 8.9 - 10.2 mg/dL 04/14/2025 5:17 PM EDT [facility] eGFRcr 72.6 mL/min/1.7 3m*2 04/14/2025 5:17 PM EDT [facility] Comment:Reported eGFRcr in m L/min/1.73m2 is based the CKD-EPI 2020 equation that does not use a race coefficient. Blood Venous blood specimen / Unknown Venipuncture / Unknown 04/14/2025 2:28 PM EDT 04/14/2025 2:29 PM EDT us Musa Rosado MD LAB BLOOD ORDERABLES Final R esult [facility] [address] [place] [address] * (ABNORMAL) CBC W/O Differential (04/14/2025 2:28 PM EDT) WBC Count 7.72 3.70 - 10.30 10*3/uL LAB HEMATOLOGY METHOD 04/14/2025 4:26 PM EDT [facility] RBC Count 4.26(L) 4.60 - 6.10 10*6/uL LAB HEMATOLOGY METHOD 04/14/2025 4:26 PM EDT [facility] HGB 11.8(L) 13.7 - 17.5 g/dL LAB HEMATOLOGY METHOD 04/14/2025 4:26 PM EDT [facility] HCT 37.9(L) 40.0 - 51.0 % LAB HEMATOLOGY METHOD 04/14/2025 4:26 PM EDT [facility] Platelet Count 373(H) 155 - 369 10*3/uL LAB HEMATOLOGY METHOD 04/14/2025 4:26 PM EDT [facility] MCV 89 79 - 98 fL LAB HEMATOLOGY METHOD 04/14/2025 4:26 PM EDT [facility] MCH 27.7 26.0 - 32.0 pg LAB HEMATOLOGY METHOD 04/14/2025 4:26 PM EDT [facility] MCHC 31.1 30.7 - 35.5 g/dL LAB HEMATOLOGY METHOD 04/14/2025 4:26 PM EDT [facility] RDW 13.8 11.5 - 14.5 % LAB HEMATOLOGY METHOD 04/14/2025 4:26 PM EDT [facility] MPV 11.1 8.8 - 12.5 fL LAB HEMATOLOGY METHOD 04/14/2025 4:26 PM EDT [facility] nRBC 0.0 <=0.0 per 100 WBCs LAB HEMATOLOGY METHOD 04/14/2025 4:26 PM EDT [facility] Blood Venous blood specimen / Unknown Venipuncture / Unknown 04/14/2025 2:28 PM EDT 04/14/2025 2:29 PM EDT us Musa Rosado MD LAB BLOOD ORDERABLES Final R esult [facility] [address] [place] [address] * XR Chest 2 Views (04/14/2025 2:20 [...] Visit Diagnoses Diagnosis Coronary artery disease involving [place] heart without angina pectoris, unspecified vessel or lesion type- Primary Coronary artery disease involving [place] heart without angina pectoris, unspecified vessel or [...] this encounter Care Teams Riveting Machine Operator Relationship Specialty Start Date End Date David Iverson MD PCP - General 06/06/22 Ludin Gonzalez MD [address] [place] [address] Referring Physician 02/18/25 documented as of this encounter
--- OUTSIDE RECORDS SUMMARY | 2025-06-08 10:04 | XMS_ITS | Encounter Summary ---
Author Organization Healthcare Address [address] [place] [address] Care Team Providers Care Field Mechanic Name Role Phone David Iverson MD Primary Care Provider [phone] Ludin Gonzalez MD Unavailable [phone] Encounter Details Date Type Department Care Team [...] in the past 12 m [facility], were you homeless or living in a [...] Description 06/13/2025 11:40 AM EDT Office Visit [facility] Nephrology, Bone & Mineral Metabolism [address] [facility], [address] [place] [address] Sonia Medley MD [address] [place] [address] documented as of this encounter Goals Goal Patient Goal Type Associated Problems Recent Progress Patient-Stated? 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 Syed, CIVIL DRAFTSMAN documented as of this encounter Visit Diagnoses [...] documented as of this encounter Care Teams Field Mechanic Relationship Specialty Start Date End Date David Iverson MD PCP - General 06/06/22 Ludin Gonzalez MD [address] [place], [place] [address] Referring Physician 02/18/25 documented as of this encounter
--- OUTSIDE RECORDS SUMMARY | 2025-06-08 10:04 | XMS_ITS | Encounter Summary ---
Author Organization Healthcare Address [address] [place] [address] Care Team Providers Care Cigarette Machines Mechanic Name Role Phone David Iverson MD Primary Care Provider [phone] Ludin Gonzalez MD Unavailable [phone] Encounter Details Date Type Department Care Team ([facility] Contact Info) Description 04/13/2025 Telephone [facility] Nephrology, Bone & Mineral Metabolism [address] [facility], [address] [place] [address] Sonia Medley MD [address] [facility] [address] [place] [address] Social History Tobacco Use Types [...] any time in the past 12 m [facility], were you homeless or living in a halfway (including now)? No 03/23/2025 Utilities Answer Date Recorded In the past 12 months has e [employer], gas, oil, or water [employer] threatened to shut off services in your [...] To: [address] [place] [address] Best contact number: [phone] Optimal time of day to reach caller: ANYTIME Additional comments/information from caller: None Note: Please do not reply to this message. Follow-up communication and further actions as a result of this message need to be communicated with the patient directly, if the patient is not active onMyChart. If the patient is active on MyChart, they will receive notification of the communication/outcome via Moxtrahart. documented in this encounter Plan of Treatment Upcoming Encounters Date Type Department Care Team (Late st Contact Info) Description 06/13/2025 11:40 AM EDT Office Visit [facility] Nephrology, Bone & Mineral Metabolism [address] [facility], [address] [place] [address] Sonia Medley MD [address] [place] [address] documented as of this encounter [...] documented as of this encounter Care Teams Cigarette Machines Mechanic Relationship Specialty Start Date End Date David Iverson MD PCP - General 06/06/22 Ludin Gonzalez MD [address] [place] [address] Referring Physician 02/18/25 documented as of this encounter
--- OUTSIDE RECORDS SUMMARY | 2025-06-08 10:04 | XMS_ITS | Clinical Summary ---
Author Organization [facility] Address [address] [place] [address] Care Team Providers Care Tap Dancer Name Role Phone David Iverson MD Primary Care Provider [phone] Ludin Gonzalez MD Unavailable [phone] Allergies No known active allergies Medications allopurinol [...] control - Pain Team consulted for IV GLASS BLOWING INSTRUCTOR - Scheduled tylenol, robaxin, gabapentin - 03/25 - discontinue IV GLASS BLOWING INSTRUCTOR, Pain to provide PO recommendations Assessment & Plan (03/24/2025 1:09 PM EDT): - Multimodal pain control - Pain Team consulted for IV GLASS BLOWING INSTRUCTOR - Restart home gabapentin when appropriate Assessment & Plan (03/23/2025 3:01 PM EDT): - Multimodal pain control - Pain Team consulted for IV GLASS BLOWING INSTRUCTOR - Restart home gabapentin when appropriate Assessment [...] Description 04/14/2025 3:40 PM EDT Office Visit [facility] Cardiothoracic [address], [address] [place] [address] Musa Rosado MD Coronary artery disease involving confederated coos heart without angina pectoris, unspecified vessel or lesion type (Primary Dx) 04/14/2025 2:04 PM EDT - 04/14/2025 11:59 PM EDT Hospital Encounter [facility] Radiology [address], 1[address] [place] [address] Coronary artery disease involving confederated coos heart without angina pectoris, unspecified vessel or lesion type Discharge Disposition: Home or Self Care 04/14/2025 Travel 04/13/2025 Telephone [facility] Nephrology, Bone & Mineral Metabolism [address] [facility], [address] [place] [address] Sonia Medley MD 04/04/2025 Telephone [facility] [address] [place] [phone] Mikayla Leung 03/30/2025 Travel 03/28/2025 Travel 03/27/2025 Travel 03/26/2025 Travel 03/25/2025 Travel 03/24/2025 Travel 03/23/2025 Travel 03/22/2025 7:45 AM EDT - 03/22/2025 5:00 PM EDT Surgery [facility] OPERATING RO[facility] [address] [place] [id number] Musa Rosado MD CABG, 2 OR MORE VESSELS [76250 (CPT )] 03/22/2025 7:39 AM EDT Anesthesia Event [facility] [address] [place] [id number] Nati Aranda MD Short, Sydney A 03/22/2025 5:35 AM EDT - 03/30/2025 11:38 AM EDT Hospital Encounter [facility] [address] [place] [address] Musa Rosado MD CAD, multiple vessel (Primary Dx); S/P CABG x 4 Discharge Disposition: Home or Self Care 03/22/2025 Travel 03/21/2025 1:23 PM EDT - 03/21/2025 11:59 PM EDT Hospital Encounter [facility] Radiology [address] [place] [address] Coronary artery disease due to calcified coronary lesion Discharge Disposition: Home or Self Care 03/21/2025 1:00 PM EDT Office Visit [facility] Cardiothoracic [address], [address] [place] [address] Musa Rosado MD Coronary artery disease involving confederated coos heart without angina pectoris, unspecified vessel or lesion type (Primary Dx); Type 2 diabetes mellitus with stage 2 chronic kidney disease, with long-term current use of insulin ([facility]); CKD (chronic kidney disease) stage 2, GFR 60-89 ml/min; Obesity (BMI 30-39.9) 03/21/2025 Travel 03/15/2025 11:30 AM EDT Pre-Admission Testing [facility]-op [facility] [address] [place] [address] 03/15/2025 Travel 03/14/2025 11:40 AM EDT Office Visit Professional [facility] Nephrology, Bone & Mineral Metabolism [address] [facility], [address] [place] [address] Sonia Medley MD Stage 3 chronic kidney disease, unspecified whether stage 3a or 3b CKD ([facility]/HCC) (Primary Dx) 03/14/2025 Travel 03/10/2025 Telephone Professional [facility] Nephrology, Bone & Mineral Metabolism [address], [address] [place] [address] Russel Zaman from Last 3 [...] any time in the past 12 m [facility], were you homeless or living in [...] Metabolism [address] , [address] [place] [address] Sonia Medley MD [address] [place] [address] Health Maintenance Due Date Last [...] Vaccines (1 - 3-dose SCDM series) 2009 DOZ-FMOOT-55 Vaccine (2 - season) 2024 03/22/2021 UKY-Diabetes: [...] Care Plan Autogenerated Problem No Zulay Syed, HEALTH AID Procedures Procedure Name Priority Date/Time Associated Diagnosis Comments CBC W/O DIFFERENTIAL Routine 04/14/2025 2:28 PM EDT Coronary artery disease involving confederated coos heart without angina pectoris, unspecified vessel or lesion type BASIC METABOLIC PANEL, PLASMA Routine 04/14/2025 2:28 PM EDT Coronary artery disease involving confederated coos heart without angina pectoris, unspecified vessel or lesion type XR CHEST 2 VIEWS Routine 04/14/2025 2:20 PM EDT Coronary artery disease involving confederated coos heart without angina pectoris, unspecified vessel or [...] UNSOLICITED RESULTS Routine 03/24/2025 11:44 AM EDT NM CRITICAL CARE, E/M 30-74 MINUTES Routine 03/24/2025 [...] UNSOLICITED RESULTS Routine 03/23/2025 1:57 PM EDT NM CRITICAL CARE, E/M 30-74 MINUTES Routine 03/23/2025 [...] 1 VIEW STAT 03/22/2025 4:46 PM EDT NM CRITICAL CARE, E/M 30-74 MINUTES Routine 03/22/2025 [...] PROCEDURE PLACEHOLDER Routine 03/22/2025 9:51 AM EDT NM INSERT/PLACE FLOW DIRECT CATH Routine 03/22/2025 8:47 AM EDT ANESTHESIA ULTRASOUND GUIDED Routine 03/22/2025 8:47 AM EDT PB ANESTHESIA NON-TIMED PROCEDURE PLACEHOLDER Routine 03/22/2025 8:47 AM EDT NM AN CENTRAL LINE DOUBLE LUMEN Routine 03/22/2025 8:47 AM EDT PB ANESTHESIA NON-TIMED PROCEDURE PLACEHOLDER Routine 03/22/2025 8:47 AM EDT PB ANESTHESIA PLACEHOLDER Routine 03/22/2025 8:03 AM EDT NM AN ELECTIVE ENDOTRACHEAL AIRWAY Routine 03/22/2025 8:03 AM EDT POCT ARTERIAL BLOOD GAS GEM UNSOLICITED RESULTS Routine 03/22/2025 8:01 AM EDT POCT ACT UNSOLICITED RESULTS Routine 03/22/2025 7:57 AM EDT NM CABG, VEIN, THREE 03/22/2025 7:26 AM EDT Coronary artery disease due to calcified coronary lesion CKD (chronic kidney disease) stage 2, GFR 60-89 ml/min 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 ([facility]) Obesity (BMI 30-39.9) APTT Routine 03/22/2025 6:32 [...] unspecified whether stage 3a or 3b CKD ([facility]) CBC WITH AUTO DIFFERENTIAL Routine 03/21/2025 1:19 [...] 1:31 PM EDT Coronary artery disease involving confederated coos heart without angina pectoris, unspecified vessel or lesion type from Last 3 Months or Most Recently Relevant to Health Maintenance Results * (ABNORMAL) CBC W/O Differential (04/14/2025 2:28 PM EDT) Only the most recent of10 resultswithin the time period is included. WBC Count 7.72 3.70 - 10.30 10*3/uL LAB HEMATOLOGY METHOD 04/14/2025 4:26 PM EDT [facility] RBC Count 4.26(L) 4.60 - 6.10 10*6/uL LAB HEMATOLOGY METHOD 04/14/2025 4:26 PM EDT [facility] HGB 11.8(L) 13.7 - 17.5 g/dL LAB HEMATOLOGY METHOD 04/14/2025 4:26 PM EDT [facility] HCT 37.9(L) 40.0 - 51.0 % LAB HEMATOLOGY METHOD 04/14/2025 4:26 PM EDT [facility] Platelet Count 373(H) 155 - 369 10*3/uL LAB HEMATOLOGY METHOD 04/14/2025 4:26 PM EDT [facility] MCV 89 79 - 98 fL LAB HEMATOLOGY METHOD 04/14/2025 4:26 PM EDT [facility] MCH 27.7 26.0 - 32.0 pg LAB HEMATOLOGY METHOD 04/14/2025 4:26 PM EDT [facility] MCHC 31.1 30.7 - 35.5 g/dL LAB HEMATOLOGY METHOD 04/14/2025 4:26 PM EDT [facility] RDW 13.8 11.5 - 14.5 % LAB HEMATOLOGY METHOD 04/14/2025 4:26 PM EDT [facility] MPV 11.1 8.8 - 12.5 fL LAB HEMATOLOGY METHOD 04/14/2025 4:26 PM EDT [facility] nRBC 0.0 <=0.0 per 100 WBCs LAB HEMATOLOGY METHOD 04/14/2025 4:26 PM EDT [facility] Blood Venous blood specimen / Unknown Venipuncture / Unknown 04/14/2025 2:28 PM EDT 04/14/2025 2:29 PM EDT us Musa Rosado MD LAB BLOOD ORDERABLES Final R esult [facility] [address] [place] [address] * (ABNORMAL) Basic Metabolic Panel, Plasma (04/14/2025 2:28 PM EDT) Only the most recent of6 resultswithin the time period is included. Glucose, Plasma 249(H) 74 - 99 mg/dL 04/14/2025 5:17 PM EDT [facility] BUN, Plasma 16 7 - 21 mg/dL 04/14/2025 5:17 PM EDT [facility] Creatinine, Plasma 1.26(H) 0.70 - 1.20 mg/dL 04/14/2025 5:17 PM EDT [facility] BUN/Creatinine Ratio 13 04/14/2025 5:17 PM EDT [facility] Sodium, Plasma 139 136 - 145 mmol/L 04/14/2025 5:17 PM EDT [facility] Potassium, Plasma 4.4 3.6 - 4.9 mmol/L 04/14/2025 5:17 PM EDT [facility] Chloride, Plasma 102 97 - 107 mmol/L 04/14/2025 5:17 PM EDT [facility] CO2, Plasma 24 22 - 29 mmol/L 04/14/2025 5:17 PM EDT [facility] Anion Gap 13 6 - 16 mmol/L 04/14/2025 5:17 PM EDT [facility] Total Calcium, Plasma 9.5 8.9 - 10.2 mg/dL 04/14/2025 5:17 PM EDT [facility] eGFRcr 72.6 mL/min/1.7 3m*2 04/14/2025 5:17 PM EDT [facility] Comment:Reported eGFRcr in m L/min/1.73m2 is based the CKD-EPI 2020 equation that does not use a race coefficient. Blood Venous blood specimen / Unknown Venipuncture / Unknown 04/14/2025 2:28 PM EDT 04/14/2025 2:29 PM EDT us Musa Rosado MD LAB BLOOD ORDERABLES Final R esult [facility] [address] [place] [address] * XR Chest 2 Views (04/14/2025 2:20 [...] - 99 mg/dL 03/30/2025 8:34 AM EDT [email or web address] Comment:Accuracy of a glucos e result [...] 03/30/2025 8:34 AM EDT [facility] Conditioner Tender ID Katlin Cheung 03/30/2025 8:34 AM EDT [email or web address] Device ID [id number] 03/30/2025 8:34 AM EDT [facility] Specimen Type POC Capillary 03/30/2025 8:34 AM EDT [facility] Blood Capillary blood specimen / Unknown 03/30/2025 8:32 AM EDT 03/30/2025 8:34 AM EDT Musa Rosado MD LAB POINT OF CARE TE ST DOCKED DEVICE UNSOLICITED RESULTS Final Result Performing Organization Address City/[facility] Co de Phone Number [facility] [address] [place] [address] * Magnesium (03/28/2025 4:35 AM EDT) Only the most recent of7 resultswithin the time period is included. Magnesium, Plasma 1.9 1.9 - 2.4 mg/dL 03/28/2025 5:18 AM EDT [facility] Blood Venous blood specimen / Unknown Venipuncture / Unknown 03/28/2025 4:35 AM EDT 03/28/2025 4:42 AM EDT La Nena March APRN LAB BLOOD ORDERABLES Final Res ult Performing Organization Address City/[facility] Co de Phone Number [facility] [address] [place] [address] * (ABNORMAL) Comprehensive metabolic panel (03/28/2025 4:35 AM EDT) Only the most recent of5 resultswithin the time period is included. Glucose, Plasma 196(H) 74 - 99 mg/dL 03/28/2025 5:18 AM EDT [facility] BUN, Plasma 20 7 - 21 mg/dL 03/28/2025 5:18 AM EDT [facility] Creatinine, Plasma 1.13 0.70 - 1.20 mg/dL 03/28/2025 5:18 AM EDT [facility] BUN/Creatinine Ratio 18 03/28/2025 5:18 AM EDT [facility] Sodium, Plasma 134(L) 136 - 145 mmol/L 03/28/2025 5:18 AM EDT [facility] Potassium, Plasma 4.2 3.6 - 4.9 mmol/L 03/28/2025 5:18 AM EDT [facility] Chloride, Plasma 102 97 - 107 mmol/L 03/28/2025 5:18 AM EDT [facility] CO2, Plasma 22 22 - 29 mmol/L 03/28/2025 5:18 AM EDT [facility] Anion Gap 10 6 - 16 mmol/L 03/28/2025 5:18 AM EDT [facility] Total Calcium, Plasma 9.1 8.9 - 10.2 mg/dL 03/28/2025 5:18 AM EDT [facility] Total Protein 6.3 6.3 - 7.9 g/dL 03/28/2025 5:18 AM EDT [facility] Albumin, Plasma 3.6 3.5 - 5.2 g/dL 03/28/2025 5:18 AM EDT [facility] AST, Plasma 32 10 - 50 U/L 03/28/2025 5:18 AM EDT [facility] ALT, Plasma 35 10 - 50 U/L 03/28/2025 5:18 AM EDT [facility] Alkaline Phosphatase, Plasma 67 40 - 115 U/L 03/28/2025 5:18 AM EDT [facility] Total Bilirubin, Plasma 0.8 0.2 - 1.1 mg/dL 03/28/2025 5:18 AM EDT [facility] eGFRcr 82.7 mL/min/1.7 3m*2 03/28/2025 5:18 AM EDT [facility] Comment:Reported eGFRcr in m L/min/1.73m2 is based the CKD-EPI 2020 equation that does not use a race coefficient. Blood Venous blood specimen / Unknown Venipuncture / Unknown 03/28/2025 4:35 AM EDT 03/28/2025 4:42 AM EDT us La Nena March APRN LAB BLOOD ORDERABLES Final Res ult [facility] [address] [place] [address] * XR Chest 1 View (03/27/2025 4:58 [...] 03/27/2025 10:17 AM us La Nena March HEALTH AID IMG XR PROCEDURES Final Result * (ABNORMAL) Lipid panel (03/26/2025 3:50 AM EDT) Cholesterol, Plasma 76 <200 mg/dL 03/26/2025 4:55 AM EDT [facility] Comment: Cholesterol Reference Range (age >17 years): Desirable <200 mg/dL Borderline 200 to 239 mg/dL Undesirable >239 mg/dL HDL 22(L) >=40 mg/dL 03/26/2025 4:55 AM EDT [facility] Comment: HDL Cholesterol Reference Ranges (age >17 years): Female, acceptable > or = 50 mg/dL Male, acceptable > or = 40 mg/dL Triglycerides, Plasma 152(H) <150 mg/dL 03/26/2025 4:55 AM EDT [facility] Comment: Triglyceride Reference Range (age >17 years): Desirable: <150 mg/dL Borderline high: 150 to 199 mg/dL High: 200 to 499 mg/dL Very high: >499 mg/dL Increased risk of pancreatitis: >1000 mg/dL Cholesterol/HDL Ratio 3 03/26/2025 4:55 AM EDT [facility] LDL, Calculated 28 <100 mg/dL 4:55 AM EDT [facility] Comment: LDL Cholesterol Reference [...] 12 hours? No 03/26/2025 4:55 AM EDT [facility] Blood Venous blood specimen / Unknown Venipuncture / Unknown 03/26/2025 3:50 AM EDT 03/26/2025 4:26 AM EDT us La Nena March APRN LAB BLOOD ORDERABLES Final Res ult [facility] [address] [place] [address] * (ABNORMAL) Phosphorus, Plasma (03/25/2025 4:07 AM EDT) Only the most recent of6 resultswithin the time period is included. Phosphorus, Plasma 1.2(L) 2.5 - 4.5 mg/dL 03/25/2025 4:54 AM EDT [facility] Blood Venous blood specimen / Unknown Venipuncture / Unknown 03/25/2025 4:07 AM EDT 03/25/2025 4:20 AM EDT us Musa Rosado MD LAB BLOOD ORDERABLES Final R esult [facility] [address] [place] [address] * NM CRITICAL CARE, E/M 30-74 MINUTES (03/24/2025 11:33 AM EDT) Narrative Krunal Galdamez MD - 03/24/2025 11:33 AM EDT Krunal Galdamez MD 03/24/2025 1:09 PM Critical Care Performed by: Krunal Galdamez MD Authorized by: Krunal Galdmaez MD Critical care provider statement: Critical care [...] LAB HEMATOLOGY METHOD 03/24/2025 12:18 AM EDT [facility] pCO2, Arterial 43 32 - 45 mmHg LAB HEMATOLOGY METHOD 03/24/2025 12:18 AM EDT [facility] pO2, Arterial 58(LL) 83 - 108 mmHg LAB HEMATOLOGY METHOD 03/24/2025 12:18 AM EDT [facility] SO2, Measured, Arterial 90(L) 94 - 98 % LAB HEMATOLOGY METHOD 03/24/2025 12:18 AM EDT [facility] Base Excess, Arterial 2.9 -2.0 - 3.0 mmol/L LAB HEMATOLOGY METHOD 03/24/2025 12:18 AM EDT [facility] Bicarbonate, Calculated, Arterial 28(H) 22 - 26 mmol/L LAB HEMATOLOGY METHOD 03/24/2025 12:18 AM EDT [facility] Hematocrit, Whole Blood 26.5(L) 40.0 - 51.0 % LAB HEMATOLOGY METHOD 03/24/2025 12:18 AM EDT [facility] Sodium, Whole Blood 138 136 - 145 mmol/L LAB HEMATOLOGY METHOD 03/24/2025 12:18 AM EDT [facility] Potassium, Whole Blood 4.2 3.6 - 4.9 mmol/L LAB HEMATOLOGY METHOD 03/24/2025 12:18 AM EDT [facility] Chloride, Whole Blood 104 97 - 107 mmol/L LAB HEMATOLOGY METHOD 03/24/2025 12:18 AM EDT [facility] Glucose, Whole Blood 161(H) 74 - 99 mg/dL LAB HEMATOLOGY METHOD 03/24/2025 12:18 AM EDT [facility] Ionized Calcium, Whole Blood 4.6 4.6 - 5.1 mg/dL LAB HEMATOLOGY METHOD 03/24/2025 12:18 AM EDT [facility] Lactate, Arterial, Whole Blood 1.1 0.5 - 1.6 mmol/L LAB HEMATOLOGY METHOD 03/24/2025 12:18 AM EDT [facility] Blood Arterial blood specimen / Unknown Arterial Puncture / Unknown 03/24/2025 12:08 AM EDT 03/24/2025 12:14 AM EDT us Musa Rosado MD LAB BLOOD ORDERABLES Final R esult [facility] [address] [place] [address] * NM CRITICAL CARE, E/M 30-74 MINUTES (03/23/2025 12:34 [...] ECG Atrial Rate 77 BPM MUSE ECG NM Interval 150 ms MUSE ECG QRSD Interval 78 ms MUSE ECG QT Interval 366 ms MUSE ECG QTC Interval 414 ms MUSE ECG P [place] 49 degrees MUSE ECG R [place] -7 degrees MUSE ECG T Wave [place] -4 degrees MUSE ECG Diagnosis Normal sinus rhythm MUSE ECG Diagnosis ST elevation, consider early repolarization , pericarditis, or injury MUSE ECG Diagnosis Nonspecific T wave abnormality MUSE ECG Diagnosis Need clinical information and correlation MUSE ECG Diagnosis MUSE ECG Diagnosis Confirmed by Jarett Steen ([id number]) on 03/23/2025 8:36:37 AM MUSE ECG 03/23/2025 4:28 AM EDT 03/23/2025 8:36 AM EDT us Musa Rosado MD ECG ORDERABLES Final Result MUSE ECG * Potassium, Plasma (03/23/2025 3:56 AM EDT) Only the most recent of3 resultswithin the time period is included. Potassium, Plasma 4.2 3.6 - 4.9 mmol/L 03/23/2025 4:40 AM EDT [facility] Blood Arterial blood specimen / Unknown Arterial Puncture / Unknown 03/23/2025 3:56 AM EDT 03/23/2025 4:12 AM EDT us Musa Rosado MD LAB BLOOD ORDERABLES Final R esult [facility] [address] [place] [address] * (ABNORMAL) Blood gas panel with oximetry, mixed venous (03/23/2025 3:53 AM EDT) pH, Mixed Venous 7.37 7.32 - 7.43 LAB HEMATOLOGY METHOD 03/23/2025 4:11 AM EDT [facility] pCO2, Mixed Venous 46 40 - 55 mmHg LAB HEMATOLOGY METHOD 03/23/2025 4:11 AM EDT [facility] pO2, Mixed Venous 34 25 - 40 mmHg LAB HEMATOLOGY METHOD 03/23/2025 4:11 AM EDT [facility] SO2, Measured, Mixed Venous 63(L) 65 - 80 % LAB HEMATOLOGY METHOD 03/23/2025 4:11 AM EDT [facility] Bicarbonate, Calculated, Mixed Venous 26 22 - 26 mmol/L LAB HEMATOLOGY METHOD 03/23/2025 4:11 AM EDT [facility] Base Excess, Mixed Venous 0.4 -2.0 - 3.0 mmol/L LAB HEMATOLOGY METHOD 03/23/2025 4:11 AM EDT [facility] Hematocrit, Whole Blood 30.3(L) 40.0 - 51.0 % LAB HEMATOLOGY METHOD 03/23/2025 4:11 AM EDT [facility] Sodium, Whole Blood 142 136 - 145 mmol/L LAB HEMATOLOGY METHOD 03/23/2025 4:11 AM EDT [facility] Potassium, Whole Blood 4.0 3.6 - 4.9 mmol/L LAB HEMATOLOGY METHOD 03/23/2025 4:11 AM EDT [facility] Chloride, Whole Blood 109(H) 97 - 107 mmol/L LAB HEMATOLOGY METHOD 03/23/2025 4:11 AM EDT [facility] Ionized Calcium, Whole Blood 4.4(L) 4.6 - 5.1 mg/dL LAB HEMATOLOGY METHOD 03/23/2025 4:11 AM EDT [facility] Glucose, Whole Blood 152(H) 74 - 99 mg/dL LAB HEMATOLOGY METHOD 03/23/2025 4:11 AM EDT [facility] Oxyhemoglobin, Mixed Venous, Whole Blood 61.7 40.0 - 70.0 % LAB HEMATOLOGY METHOD 03/23/2025 4:11 AM EDT [facility] Hemoglobin Reduced, Mixed Venous, Whole Blood 36.7 % LAB HEMATOLOGY METHOD 03/23/2025 4:11 AM EDT [facility] Total Hemoglobin, Mixed Venous, Whole Blood 9.9(L) 13.7 - 17.5 g/dL LAB HEMATOLOGY METHOD 03/23/2025 4:11 AM EDT [facility] Blood Mixed venous blood specimen / Unknown Venipuncture / Unknown 03/23/2025 3:53 AM EDT 03/23/2025 4:09 AM EDT us Musa Rosado MD LAB BLOOD ORDERABLES Final R esult Performing Organization Address City/[facility]/ZIP Co de Phone Number [facility] [address] [place] [address] * (ABNORMAL) Hematocrit (03/23/2025 12:13 AM EDT) Only the most recent of2 resultswithin the time period is included. Pathologist [facility] HCT 29.6(L) 40.0 - 51.0 % LAB HEMATOLOGY METHOD 03/23/2025 12:42 AM EDT [facility] Blood Arterial blood specimen / Unknown Arterial Puncture / Unknown 03/23/2025 12:13 AM EDT 03/23/2025 12:32 AM EDT us Musa Rosado MD LAB BLOOD ORDERABLES Final R esult [facility] [address] [place] [address] * (ABNORMAL) Hemoglobin (03/22/2025 8:14 PM EDT) HGB 10.4(L) 13.7 - 17.5 g/dL LAB HEMATOLOGY METHOD 03/22/2025 8:35 PM EDT [facility] Blood Arterial blood specimen / Unknown Arterial Puncture / Unknown 03/22/2025 8:14 PM EDT 03/22/2025 8:28 PM EDT us Musa Rosado MD LAB BLOOD ORDERABLES Final R esult [facility] [address] [place] [address] * NM CRITICAL CARE, E/M 30-74 MINUTES (03/22/2025 4:38 [...] Detected Not Detected 03/23/2025 12:49 PM EDT [facility] Swab (Axilla and Groin) Non-blood Collection / Unknown 03/22/2025 3:52 PM EDT 03/22/2025 4:37 PM EDT Narrative [facility] - 03/23/2025 12:49 PM EDT This PCR assay was developed and its performance characteristics determined by [facility] as appropriate for clinical purposes. This assay has not been cleared or approved by the FDA, but is performed in a CLIA regulated laboratory that is qualified to perform high-complexity testing. Musa Rosado MD LAB MICROBIOLOGY - GENERAL O RDERABLES Final Result Performing Organization Address [facility] Co de Phone Number [facility] [address] [place] [address] * Multi Drug Resistance Test (03/22/2025 3:52 PM EDT) Culture No growth at day 1 03/24/2025 7:31 AM EDT [facility] Swab (Nares and Lisa Rectal) Non-blood Collection / Unknown 03/22/2025 3:52 PM EDT 03/22/2025 4:37 PM EDT Narrative [facility] - 03/24/2025 7:31 AM EDT This test was developed and its performance characteristics determined by the [facility]. Although the media is FDA-approved, it is not FDA-approved for all specimen types submitted. The FDA has determined that such clearance or approval is not necessary. This test is used for surveillance purposes. It should not be regarded as investigational or for research. The [facility] is certified under the Clinical Laboratory Improvement Amendments of 1988 (CLIA-88) as qualified to perform high complexity clinical laboratory testing. Musa Rosado MD LAB MICROBIOLOGY - GENERAL O RDERABLES Final Result Performing Organization Address [facility] de Phone Number [facility] [address] [place] [address] * APTT (03/22/2025 3:52 PM EDT) Only the most recent of3 resultswithin the time period is included. aPTT 28 25 - 35 sec LAB COAGULATION METHOD 03/22/2025 5:08 PM EDT [facility] Blood Venous blood specimen / Unknown Venipuncture / Unknown 03/22/2025 3:52 PM EDT 03/22/2025 4:45 PM EDT Musa Rosado MD LAB BLOOD ORDERABLES Final R esult Performing Organization Address City/[facility] Co de Phone Number [facility] [address] [place] [address] * (ABNORMAL) Protime-INR (03/22/2025 3:52 PM EDT) Only the most recent of3 resultswithin the time period is included. Prothrombin Time 17.0(H) 12.0 - 14.3 sec LAB COAGULATION METHOD 03/22/2025 5:08 PM EDT [facility] INR 1.4(H) 0.9 - 1.1 LAB COAGULATION METHOD 03/22/2025 5:08 PM EDT [facility] Blood Venous blood specimen / Unknown Venipuncture / Unknown 03/22/2025 3:52 PM EDT 03/22/2025 4:45 PM EDT Narrative [facility] - 03/22/2025 5:08 PM [...] ORDERABLES Final R esult Performing Organization Address City/[facility] Co de Phone Number [facility] [address] [place] [address] * (ABNORMAL) POCT arterial blood gas gem (03/22/2025 3:29 PM EDT) Only the most recent of11 resultswithin the time period is included. pH, Arterial 7.36 7.35 - 7.45 03/22/2025 3:41 PM EDT [facility] pCO2, Arterial 42 32 - 45 mm Hg 03/22/2025 3:41 PM EDT [facility] pO2, Arterial 150(H) 83 - 108 mm Hg 03/22/2025 3:41 PM EDT [facility] SO2, Arterial 98 94 - 98 % 03/22/2025 3:41 PM EDT [facility] Base Excess, Arterial -1.7 -2 - 3 mmol/L 03/22/2025 3:41 PM EDT [facility] HCO3, Arterial 23.7 22 - 26 mmol/L 03/22/2025 3:41 PM EDT [facility] Total Hemoglobin, Arterial, Whole Blood 11.2(L) 13.7 - 17.5 g/dL 03/22/2025 3:41 PM T [facility] Hematocrit, Arterial 34.0(L) 40 - 51.0 % 03/22/2025 3:41 PM EDT [facility] Sodium, Arterial 141 136 - 145 mmol/L 03/22/2025 3:41 PM T [facility] Potassium, Arterial 3.8 3.6 - 4.9 mmol/L 03/22/2025 3:41 PM T [facility] Chloride, Whole Blood 109(H) 97 - 107 mmol/L 03/22/2025 3:41 PM T [facility] Glucose, Arterial 192(H) 74 - 99 mg/dL 03/22/2025 3:41 PM T [facility] Ionized Calcium, Arterial 4.6 4.6 - 5.1 mg/dL 03/22/2025 3:41 PM T [facility] Lactate, Arterial 2.0(H) 0.5 - 1.6 mmol/L 03/22/2025 3:41 PM EDT [facility] Body Temperature 37.0 Celsius 03/22/2025 3:41 PM T [facility] pH, Temp Corrected, Arterial 7.36 7.35 - 7.45 03/22/2025 3:41 PM T [facility] pCO2, Temp Corrected, Arterial 42 32 - 45 mm Hg 03/22/2025 3:41 PM T [facility] pO2, Temp Corrected, Arterial 150(H) 83 - 108 mm Hg 03/22/2025 3:41 PM T [facility] Conditioner Tender ID Ludin Aguiar 03/22/2025 3:41 PM [facility] Blood, Arterial Whole blood specimen / Unknown 03/22/2025 3:29 PM EDT 03/22/2025 3:41 PM EDT us Musa Rosado MD LAB POINT OF CARE TE ST DOCKED DEVICE UNSOLICITED RESULTS Final Result Performing Organization Address City/[facility]/ZIP Co de Phone Number [facility] [address] [place] [address] * QPLUS (03/22/2025 2:24 PM EDT) Clot [...] Seconds 03/22/2025 2:38 PM EDT [facility] Conditioner Tender ID Ludin Aguiar 03/22/2025 2:38 PM EDT [facility] Device ID [id number] 03/22/2025 2:38 PM EDT [facility] Whole Blood 03/22/2025 2:24 PM EDT 03/22/2025 2:38 PM EDT us Musa Rosado MD LAB POINT OF CARE TE ST DOCKED DEVICE UNSOLICITED RESULTS Final Result Performing Organization Address City/[facility]/ZIP Co de Phone Number [facility] [address] [place] [address] * POCT ACT (03/22/2025 2:04 PM EDT) Only the most recent of8 resultswithin the time period is included. ACT+ (HIGH RANGE) 115 68 - 600 Seconds 03/22/2025 2:10 PM EDT [facility] Conditioner Tender ID Selene Cardona 03/22/2025 2:10 PM EDT [facility] ACT Device ID [id number] 03/22/2025 2:10 PM EDT [facility]ALTH[facility] LAB Comment 03/22/2025 2:10 PM EDT [facility] Comment: ACT performed by [...] RESULTS Final Result Performing Organization Address City/State/[facility] Co de Phone Number [facility]ALTH[facility] [address] LAB [address] [place] [address] * PB ANESTHESIA NON-TIMED PROCEDURE PLACEHOLDER (03/22/2025 9:51 AM EDT) [facility] BSA 2.31 m2 CAR DO NOT SEND [...] surgeon/physician. Anesthesia Information Performed Resident Anesthesiologist: Nati Aarnda MD Resident: Ludin Aguiar MD Echocardiogram Comments: [...] ORDERABLES Edite d Result - Final * NM AN CENTRAL LINE DOUBLE LUMEN, PB ANESTHESIA NON-TIMED PROCEDURE PLACEHOLDER, ANESTHESIA ULTRASOUND GUIDED, NM INSERT/PLACE FLOW DIRECT CATH (03/22/2025 8:47 AM [...] Aranda MD ANESTHESIA ORDERABLES Final Result * NM AN ELECTIVE ENDOTRACHEAL AIRWAY, PB ANESTHESIA PLACEHOLDER [...] CBC and Differential (03/21/2025 1:19 PM EDT) [facility] WBC Count 6.31 3.70 - 10.30 10*3/uL LAB HEMATOLOGY METHOD 03/21/2025 3:03 PM EDT [facility] RBC Count 4.75 4.60 - 6.10 10*6/uL LAB HEMATOLOGY METHOD 03/21/2025 3:03 PM EDT [facility] HGB 14.2 13.7 - 17.5 g/dL LAB HEMATOLOGY METHOD 03/21/2025 3:03 PM EDT [facility] HCT 42.9 40.0 - 51.0 % LAB HEMATOLOGY METHOD 03/21/2025 3:03 PM EDT [facility] Platelet Count 214 155 - 369 10*3/uL LAB HEMATOLOGY METHOD 03/21/2025 3:03 PM EDT [facility] MCV 90 79 - 98 fL LAB HEMATOLOGY METHOD 03/21/2025 3:03 PM EDT [facility] MCH 29.9 26.0 - 32.0 pg LAB HEMATOLOGY METHOD 03/21/2025 3:03 PM EDT [facility] MCHC 33.1 30.7 - 35.5 g/dL LAB HEMATOLOGY METHOD 03/21/2025 3:03 PM EDT [facility] RDW 13.2 11.5 - 14.5 % LAB HEMATOLOGY METHOD 03/21/2025 3:03 PM EDT [facility] MPV 11.6 8.8 - 12.5 fL LAB HEMATOLOGY METHOD 03/21/2025 3:03 PM EDT [facility] nRBC 0.0 <=0.0 per 100 WBCs LAB HEMATOLOGY METHOD 03/21/2025 3:03 PM EDT [facility] Differential Type Automated LAB HEMATOLOGY METHOD 03/21/2025 3:03 PM EDT [facility] Neutrophils % 61 % LAB HEMATOLOGY METHOD 03/21/2025 3:03 PM EDT [facility] Lymphocytes % 29 % LAB HEMATOLOGY METHOD 03/21/2025 3:03 PM EDT [facility] Monocytes % 7 % LAB HEMATOLOGY METHOD 03/21/2025 3:03 PM EDT [facility] Eosinophils % 2 % LAB HEMATOLOGY METHOD 03/21/2025 3:03 PM EDT [facility] Basophils % 1 % LAB HEMATOLOGY METHOD 03/21/2025 3:03 PM EDT [facility] Immature Granulocytes % 0 % LAB HEMATOLOGY METHOD 03/21/2025 3:03 PM EDT [facility] Neutrophils Absolute 3.84 1.60 - 6.10 10*3/uL LAB HEMATOLOGY METHOD 03/21/2025 3:03 PM EDT [facility] Lymphocytes Absolute 1.81 1.20 - 3.90 10*3/uL LAB HEMATOLOGY METHOD 03/21/2025 3:03 PM EDT [facility] Monocytes Absolute 0.46 0.30 - 0.90 10*3/uL LAB HEMATOLOGY METHOD 03/21/2025 3:03 PM EDT [facility] Eosinophils Absolute 0.13 0.00 - 0.50 10*3/uL LAB HEMATOLOGY METHOD 03/21/2025 3:03 PM EDT [facility] Basophils Absolute 0.05 0.00 - 0.10 10*3/uL LAB HEMATOLOGY METHOD 03/21/2025 3:03 PM EDT [facility] Immature Granulocytes Absolute 0.02 0.00 - 0.06 10*3/uL LAB HEMATOLOGY METHOD 03/21/2025 3:03 PM EDT [facility] Blood Venous blood specimen / Unknown Venipuncture / Unknown 03/21/2025 1:19 PM EDT 03/21/2025 1:19 PM EDT Narrative [facility] - 03/21/2025 3:03 PM EDT Therapeutic decision making should be based on absolute values, rather than percentages. us Zulay Syed APRN LAB BLOOD ORDERABLES Final R esult [facility] [address] [place] [address] * Type and screen (03/21/2025 1:19 PM [...] ORDERABL ES Final Result Performing Organization Address [facility]/ZIP Co de Phone Number BLOOD BANK [address] [place] [address], * Protein, Random, Urine with Creatinine (03/21/2025 1:15 PM EDT) Protein, Urine <6 mg/dL 03/21/2025 2:55 PM EDT [facility] Creatinine, Urine 77 mg/dL 03/21/2025 2:55 PM EDT [facility] Protein/Creatin ine Ratio 03/21/2025 2:55 PM EDT [facility] Urine Urine specimen obtained by clean catch procedure / Unknown Non-blood Collection / Unknown 03/21/2025 1:15 PM EDT 03/21/2025 1:15 PM EDT Sonia Medley MD LAB URINE ORDERABLES Fin al Result Performing Organization Address City/[facility]/ZIP Co de Phone Number [facility] [address] [place] [address] * (ABNORMAL) Urinalysis with reflex microscopic (Culture NOT Included) (03/21/2025 1:15 PM EDT) Color, Urine Yellow LAB URINALYSIS - AUTOMATED METHOD 03/21/2025 2:42 PM EDT [facility] Clarity, Urine Clear LAB URINALYSIS - AUTOMATED METHOD 03/21/2025 2:42 PM EDT [facility] Spec [place], Urine 1.023 1.005 - 1.030 LAB URINALYSIS - AUTOMATED METHOD 03/21/2025 2:42 PM EDT [facility] pH, Urine 7.0 5.0 - 8.0 LAB URINALYSIS - AUTOMATED METHOD 03/21/2025 2:42 PM EDT [facility] Protein, Urine Negative Negative mg/dL LAB URINALYSIS - AUTOMATED METHOD 03/21/2025 2:42 PM EDT [facility] Glucose, Urine >=1000(A) Negative mg/dL LAB URINALYSIS - AUTOMATED METHOD 03/21/2025 2:42 PM EDT [facility] Ketones, Urine Negative Negative mg/dL LAB URINALYSIS - AUTOMATED METHOD 03/21/2025 2:42 PM EDT [facility] Blood, Urine Negative Negative LAB URINALYSIS - AUTOMATED METHOD 03/21/2025 2:42 PM EDT [facility] Bilirubin, Urine Negative Negative LAB URINALYSIS - AUTOMATED METHOD 03/21/2025 2:42 PM EDT [facility] Urobilinogen, Urine 1.0 0.2 to 1.0 mg/dL LAB URINALYSIS - AUTOMATED METHOD 03/21/2025 2:42 PM EDT [facility] Leukocytes, Urine Negative Negative LAB URINALYSIS - AUTOMATED METHOD 03/21/2025 2:42 PM EDT [facility] Nitrite, Urine Negative Negative LAB URINALYSIS - AUTOMATED METHOD 03/21/2025 2:42 PM EDT [facility] Urine Urine specimen obtained by clean catch procedure / Unknown Non-blood Collection / Unknown 03/21/2025 1:15 PM EDT 03/21/2025 1:15 PM EDT Sonia Medley MD LAB URINE ORDERABLES Fin al Result [facility] [address] [place] [address] * (ABNORMAL) Hemoglobin A1c (02/17/2025 1:31 PM EDT) Hemoglobin A1c 7.2(H) <5.7 % 02/17/2025 4:41 PM EDT [facility] Blood Venous blood specimen / Unknown Venipuncture / Unknown 02/17/2025 1:31 PM EDT 02/17/2025 1:31 PM EDT Narrative [facility] - 02/17/2025 4:41 PM EDT HA1C Interpretive Data: Diagnosis of Diabetes: Diabetic > or = 6.5% Pre-diabetic 5.7 to 6.4% Non-diabetic < or = 5.6% Glycemic Targets for Type I and Type II Diabetics: Non- Adults <7.0% Adults <6.0% Children and Adolescents <7.5% Source: [place] [employer]. Standards of medical care in diabetes,2017. Diabetes Care.2017:40 (suppl 1):S1-S135. us Musa Rosado MD LAB BLOOD ORDERABLES Final R esult [facility] [address] [place] [address] from Last 3 Months or Most Recently Relevant to Health Maintenance Additional Health Concerns Active Problems Noted Date Diagnosed Date Autogenerated Problem 02/17/2025 Insurance [employer] Advance Directives * Full Code (Latest Code Status on File) Date Activated Date Inactivated Comments 03/22/2025 3:49 PM 03/30/2025 1:44 PM Question Answer Comments Patient has decision-making capacity? Yes Care Teams Tap Dancer Relationship Specialty Start Date End Date David Iverson MD PCP - General 06/06/22 Ludin Gonzalez MD [address] [facility] [address] [place] [address] Referring Physician 02/18/25
[2025-06-08 10:07] LABS: Microscopic, Urine URINE MICROSCOPIC (MICROSCOPIC)
[2025-06-08 10:38] LABS: Hematocrit 41.6 % (42.0-52.0); Hemoglobin 13.8 g/dL (14.1-18.0); Mean Corpuscular HGB Conc 33.2 g/dL (31.8-35.4); Mean Corpuscular Hemoglobin 26.7 pg (27.0-31.2); Mean Corpuscular Volume 80.6 fl (80-94); Nucleated Red Blood Cells % 0 %; Platelet Count 257 K/mm3 (142-424); Red Blood Count 5.16 M/mm3 (4.60-6.20); Red Cell Distribution Width-SD 47.6 fL; White Blood Count 5.9 K/mm3 (4.8-10.8)
[2025-06-08 10:41] LABS: Bilirubin,Urine Negative (Negative); Color,Urine YELLOW (Yellow); Glucose,Urine (UA) TRACE (Negative); Ketones,Urine Negative (Negative); Leukocyte Esterase,Urine Negative (Negative); PH,Urine 6.5 (5.0-8.5); Protein,Urine Negative (Negative); Specific Gravity, Urine 1.015 (1.005-1.030); Urobilinogen,Urine 1.0 EU/dl (0.2)
[2025-06-08 11:04] LABS: WBC,Urine Occasional #/hpf (0-3)
[2025-06-08 12:31] LABS: Albumin Level 4.3 g/dl (3.5-5.0); Chloride 106 mmol/L (98-107); Potassium 4.2 mmoL/L (3.5-5.1); Sodium 140 mmol/L (136-145)
[2025-06-08 12:34] LABS: Anion Gap 11.2 mEq/L (5-15); Blood Urea Nitrogen 16 mg/dl (9-20); Calcium 9.2 mg/dl (8.4-10.2); Carbon Dioxide 27 mmol/L (22.0-30.0); Creatinine,Serum 1.00 mg/dl (0.66-1.25); Estimated Glomerular Filt Rate 82 ml/min (>60); GFR (African American) 99 ML/MIN (>60); Glucose 187 mg/dl (74-100); Phosphorous 3.5 mg/dl (2.5-4.5)
== END 2025-06-08 23:59 | disposition home or self-care (01) ==
LOC: LAB 10:02
PROVIDERS: PCP Family Medicine; Visit Provider Internal Medicine Nephrology
DX: N18.30 Chronic kidney disease, stage 3 unspecified (principal)
CPT/HCPCS: 36415; 80069; 81001; 82570; 84156; 85027

== ENCOUNTER 2025-08-19 09:21 | Outpatient (CLI) | payer MEDICARE, MEDICAID, SELFPAY ==
[2025-08-19 15:11] LABS: Hematocrit 42.6 % (42.0-52.0); Hemoglobin 14.5 g/dL (14.1-18.0); Immature Granulocytes % 0.3 %; Mean Corpuscular HGB Conc 34.0 g/dL (31.8-35.4); Mean Corpuscular Hemoglobin 28.5 pg (27.0-31.2); Mean Corpuscular Volume 83.9 fl (80-94); Nucleated Red Blood Cells % 0 %; Platelet Count 248 K/mm3 (142-424); Red Blood Count 5.08 M/mm3 (4.60-6.20); Red Cell Distribution Width-SD 48.5 fL; White Blood Count 6.3 K/mm3 (4.8-10.8)
[2025-08-19 15:39] LABS: Hemoglobin A1C 7.4 % (4.0-6.0)
[2025-08-19 15:49] LABS: Albumin Level 4.3 g/dl (3.5-5.0); Chloride 104 mmol/L (98-107); Sodium 140 mmol/L (136-145)
[2025-08-19 15:50] LABS: Potassium 4.3 mmoL/L (3.5-5.1)
[2025-08-19 15:52] LABS: Alanine Aminotransferase 44 U/L (12-78); Albumin/Globulin Ratio 1.4 (1.1-1.8); Alkaline Phosphatase 80 U/L (38-126); Anion Gap 16.3 mEq/L (5-15); Aspartate Amino Transferase 34 U/L (17-59); Bilirubin,Total 1.0 mg/dl (0.2-1.3); Blood Urea Nitrogen 17 mg/dl (9-20); Calcium 9.3 mg/dl (8.4-10.2); Carbon Dioxide 24 mmol/L (22.0-30.0); Cholesterol 108 mg/dl (140-200); Creatinine,Serum 1.10 mg/dl (0.66-1.25); Estimated Glomerular Filt Rate 73 ml/min (>60); GFR (African American) 88 ML/MIN (>60); Globulin 3.0 g/dL (1.3-3.2); Glucose 317 mg/dl (74-100); Total Protein,Serum 7.3 g/dl (6.3-8.2); Triglycerides 284 mg/dl (30-150)
[2025-08-19 15:53] LABS: HDL Cholesterol 26 mg/dl (40-60)
== END 2025-08-19 23:59 | disposition home or self-care (01) ==
LOC: LAB.DROPOF 08-20 09:22
PROVIDERS: PCP Family Medicine; Visit Provider Family Medicine
DX: I25.10 Atherosclerotic heart disease of native coronary artery without angina pectoris (principal); E11.9 Type 2 diabetes mellitus without complications
CPT/HCPCS: 80053; 80061; 82043; 82570; 83036; 85025